=== PATIENT | female | born 1940 | race Caucasian/White ===

== ENCOUNTER 2022-03-22 14:30 | Outpatient (REF) | payer OTHER, SELFPAY | END 2022-03-22 14:31 | disposition home or self-care (01) | LOC: HO.LNP 14:30 | PROVIDERS: Visit Provider Hospitalist | DX: J42 Unspecified chronic bronchitis (principal); J15.1 Pneumonia due to Pseudomonas; J47.9 Bronchiectasis, uncomplicated; R91.8 Other nonspecific abnormal finding of lung field | CPT/HCPCS: 87070; 87077; 87186; 87205; 94640; 99202 ==

== ENCOUNTER 2022-04-06 12:02 | Inpatient (IN) | payer OTHER, SELFPAY ==
[2022-04-06] VITALS (7 sets, daily range): BP systolic 106–156; BP diastolic 48–68; PULSE 83–131; RESP 16–26; TEMP 36.2–36.8; O2SAT 95–97; BMI 32.1
--- NOTE | ~2022-04-06 | CT_ITS ---
EXAMINATION: CT CHEST WITHOUT CONTRAST CLINICAL INFORMATION: Rule out pneumonia. History of COPD and bronchiectasis COMPARISON: 12/30/2021 TECHNIQUE: Multidetector volumetric CT imaging of the chest was done. Axial MIP volume rendering provided. Sagittal and coronal reformatted images were obtained. This CT examination was performed using dose optimization techniques as appropriate, variously including the following: *Automated exposure control *Adjustment of mA and/or kV according to patient size (this includes techniques or standardized protocols for targeted exams where dose is matched to indication/reason for exam; i.e. extremities or head) *Use of iterative reconstruction technique DLP: 333 mGy-cm FINDINGS: TIGHT COOPER: Symmetrically expanded lungs. Sternal wires. LUNGS: New streaky opacities at the lung bases particularly the right lower lobe consistent with atelectasis. There was atelectasis in the left lower lobe which is improved. Moderate central bronchial wall thickening is similar to worsened from the prior study. New nonspecific 9 mm groundglass opacity in the right upper lobe in image 25/61. There is likely atelectasis along left major fissure in the left upper lobe. MEDIASTINUM: Sternal wires. Evidence of prior CABG. Dense three-vessel coronary artery calcification. Mild cardiomegaly. Normal caliber thoracic aorta. No lymphadenopathy. Thyroid is homogeneous. CORONARY ARTERY CALCIFICATION: Three-vessel coronary artery calcification status post CABG. PLEURA: There is no pleural effusion. No pleural mass or thickening. AXILLA: No lymphadenopathy. UPPER ABDOMEN: No adrenal mass. Atrophy of the pancreas. OSSEOUS STRUCTURES: Multilevel degenerative changes. There is new superior endplate compression deformity of T12, new since 12/30/[address] acute. CT/CT chest wo IV con IMPRESSION: New superior endplate compression deformity of T12, new since 12/30/2021 but not necessarily acute. Moderate central bronchial wall thickening, perhaps worsened, consistent with bronchitis. There there is a 9 mm nonspecific groundglass opacity in the right upper lobe. Typically these are infectious or inflammatory. According to the UPDATED 2017 Fleischner Society recommendations, the advised follow-up imaging for a single pure ground-glass nodule measuring 6 mm or greater is: CT at 6-12 months to confirm persistence, then CT every 2 years until 5 years if it persists. New streaky opacities at the lung bases, particularly the right lower lobe, most likely represent atelectasis. Fleischner guidelines were followed.
--- NOTE | ~2022-04-06 | XR_ITS ---
EXAMINATION: XR CHEST CLINICAL INFORMATION: Shortness of breath, history of COPD, bronchiectasis and pneumonia COMPARISON: None TECHNIQUE: Frontal view of the chest was obtained. FINDINGS: Median sternotomy wires and surgical clips are seen. Film was taken with poor inspiration. There is bibasilar atelectasis, left greater than right. No vascular congestion. Left costophrenic angle blunting. Degenerative changes. XR/XR chest 1V IMPRESSION: Low lung volumes limiting study. Basilar atelectasis, left base pneumonia not excluded, question small left pleural effusion.
--- NOTE | ~2022-04-06 | XR_ITS ---
EXAMINATION: XR CHEST CLINICAL INFORMATION: Left-sided discomfort COMPARISON: Previous chest x-ray and chest CT 04/06/2022 TECHNIQUE: 2 views of the chest were obtained. FINDINGS: The cardiac and mediastinal contours are stable. There are post-CABG changes. There is new subsegmental atelectasis or small infiltrate in the left lower lobe. There is a new small left pleural effusion. No definite right pleural effusion. No pneumothorax. There are degenerative changes of the spine and shoulders. XR/XR chest 2V IMPRESSION: Increasing atelectasis or small infiltrate in the left lower lobe and small left pleural effusion.
--- NOTE | 2022-04-06 12:16 | ECG_ITS ---
Test Reason : SOB Blood Pressure : / mmHG Vent. Rate : 116 BPM Atrial Rate : 234 BPM P-R Int : 000 ms QRS Dur : 096 ms QT Int : 324 ms P-R-T Axes : 000 026 198 degrees QTc Int : 450 ms Atrial flutter with variable A-V block ST & T wave abnormality, consider inferolateral ischemia Abnormal ECG No previous ECGs available Referred By: Lissy Allred Electronically Signed By:CORNELL DIXON MD
--- NOTE | 2022-04-06 12:39 | ED_ITS ---
HPI - SOB/Dyspnea General Chief Complaint: Dyspnea Stated Complaint: SOB X'S 2 DAYS Time Seen by Provider: 04/06/22 12:04 Source: patient, family and EMS Mode of arrival: EMS Limitations: no limitations History of Present Illness HPI Narrative: Patient comes to the emergency room complaining of worsening shortness of breath for 2 days. Patient is usually being seen at [facility], but now all of her specialists are from [facility], patient's daughter decided to bring her to [facility] for further evaluation. On March 22, patient was seen by Dr. Aldana from pulmonology, seems that patient's respiratory status has dramatically declined over last few months. Patient has history of COPD, bronchiectasis, pseudomonal pneumonia, hypertension, hemolytic anemia requiring blood transfusions, CHF and atrial fibrillation on Eliquis. Patient has history of failing IV and p.o. treatments. The patient's daughter reports that this morning patient was started on tobramycin nebulizations, but the patient's shortness of breath did not improve. Related Data Home Medications Medication Instructions Recorded Confirmed apixaban 5 mg tablet (Eliquis) 5 mg PO BID 03/22/22 04/06/22 aspirin 81 mg tablet,delayed 81 mg PO BEDTIME 03/22/22 04/06/22 release diltiazem HCl 120 mg 120 mg PO DAILY 03/22/22 04/06/22 capsule,extended release 24 hr docusate sodium 100 mg capsule 100 mg PO BID 03/22/22 04/06/22 fluticasone propionate 50 1 spray intranasal BID 03/22/22 04/06/22 mcg/actuation nasal spray,suspension montelukast 10 mg tablet 10 mg PO BEDTIME 03/22/22 04/06/22 nebulizers 03/22/22 nitroglycerin 0.3 mg sublingual 0.3 mg sublingual Q5M PRN Chest 03/22/22 04/06/22 tablet Pain omeprazole 40 mg capsule,delayed 40 mg PO BID 03/22/22 04/06/22 release oxybutynin chloride 5 mg 5 mg PO DAILY 03/22/22 04/06/22 tablet,extended release 24 hr polyethylene glycol 3350 17 17 g PO DAILY PRN Constipation 03/22/22 04/06/22 gram/dose oral powder tramadol 50 mg tablet 50 mg PO BID 03/22/22 04/06/22 umeclidinium 62.5 mcg-vilanterol 1 ea inhalation DAILY 03/22/22 04/06/22 25 mcg/actuation powdr for inhalation (Anoro Ellipta) albuterol sulfate 90 mcg/actuation 2 inh inhalation Q4H PRN Wheezing 04/06/22 04/06/22 aerosol inhaler furosemide 20 mg tablet 1 tab PO DAILY 04/06/22 04/06/22 lisinopril 2.5 mg tablet 1 tab PO DAILY 04/06/22 04/06/22 Previous Rx's Medication Instructions Recorded levalbuterol HCl 1.25 mg/3 mL 1.25 mg (3 mL) inhalation QID 30 03/22/22 solution for nebulization (Xopenex) days #360 mL levofloxacin 500 mg tablet 500 mg PO DAILY 14 days #14 tabs 03/22/22 prednisone 10 mg tablet See Rx Instructions PO DAILY 30 03/22/22 days #20 tabs tobramycin 300 mg/5 mL in 0.225 % 300 mg (5 mL) inhalation BID 28 03/25/22 sodium chloride for nebulization days #280 mL (John) Allergies Allergy/AdvReac Type Severity Reaction Status Date / Time carvedilol Allergy Shortness Verified 04/06/22 12:41 of Breath sertraline [From Zoloft] Allergy Shortness Verified 04/06/22 12:41 of Breath spironolactone Allergy Shortness Verified 04/06/22 12:41 of Breath Review of Systems Review of Systems: Constitutional : No Weight loss, No Fever, No Chills, No Night Sweats, No Fatigue, No Malaise ENT/Mouth : No Hearing loss, No Ear Pain, No Nasal Congestion, No Sinus Pain, No Hoarseness, No sore throat, No Rhinorrhea, No Swallowing Difficulty Eyes: No Eye Pain, No Swelling, No Redness, No Foreign Body, No Discharge, No Vision Changes Cardiovascular : No Chest Pain, No SOB, No Dyspnea on Exertion, No Orthopnea, No Edema, No Palpitations Respiratory : Complaining of chronic cough, sputum production, chronic wheezing, worsening shortness of breath at rest and much worse with exertion Gastrointestinal : No Nausea, No Vomiting, No Diarrhea, No Constipation, No abdominal Pain, No Hematochezia, No Melena Genitourinary : no irregular bleeding, No Dysuria, No Urinary Frequency, No Hematuria, No Urinary Incontinence, No Urgency, No Flank Pain, No Urinary Flow Changes, No Hesitancy Musculoskeletal : No joint pain, No Myalgias, No Joint Swelling Skin : No Skin Lesions, No rash Neuro : No Weakness, No Numbness, No Paresthesias, No Loss of Consciousness, No Dizziness, No Headache Psych : No Anxiety/Panic, No Depression, No SI/HI/AH/VH, No Social Issues, Heme/Lymph: No Bruising, No Bleeding,No Lymphadenopathy Endocrine : No Polyuria, No Polydipsia, No Temperature Intolerance [facility] Past Medical History Medical History Bronchiectasis COPD (chronic obstructive pulmonary disease) Pseudomonal pneumonia Pulmonary nodules Social History Social History Alcohol intake: never Patient Tobacco Use Status: Former Tobacco user Use of substances other than those prescribed or required for medical reasons: No Advance Directives: Yes Advance Directives Information Provided: No Advance Directives on File: No Physical Exam Vital Signs: Vital Signs: Last Vital Signs Temp 98.2 F 04/06/22 16:14 Pulse 110 H 04/06/22 16:14 Resp 25 H 04/06/22 16:14 BP 117/68 04/06/22 16:14 Pulse Ox 95 04/06/22 16:14 O2 Del Method 04/06/22 16:14 BMI result Body Mass Index 32.1 Const: Other: Appearance: Alert. Oriented X3. No acute distress. Eyes: Pupils equal, round and reactive to light. ENT: Pharynx normal. Neck: Normal inspection. Neck supple. No lymph nodes noted. No crepitus CVS: Normal heart rate and rhythm. Pulses normal. Normal S1 and S2 Respiratory: No respiratory distress. Bilateral crackles and rales and wheezing diffusely present, moderate air movement. Abdomen: Soft and nontender. No rigidity. No distention. Skin: Skin warm and dry. Diffuse ecchymosis in upper and lower extremities, likely from blood thinners Extremities: No lower extremity edema. No Lacerations. No Rash Neuro: Oriented X 3. No motor deficit. No sensory deficit. Moving all ext remities. No slurred speech. CN 2 through 12 grossly intact Psych: calm, cooperative, normal affect Course Course Course Narrative: All of patient's labs are pending, respiratory panel has been requested. Patient's oxygen saturation is 96% on room air. Patient's hemoglobin is 7.9, potassium 2.9, patient being repleted with p.o. potassium. I discussed with the patient and her daughter, that given the low hemoglobin levels and all of her symptoms, she would benefit from 1 unit. Both agreeable. Occult blood test pending On room air, patient's oxygen saturation is in the high 90s. However, with standing and a few steps of walking, patient becomes very weak, tachypneic, oxygen drops to 88%. Pulmonary embolism is not suspected, patient already on Eliquis Records from [facility] have been requested, pending. Patient have atrial fibrillation, takes diltiazem at home. Heart rate between 110 and 120 at rest, patient was given 1 dose of IV diltiazem. Patient has occult test is positive. Likely this is the source of patient's anemia. Patient states that back in the 80s she had a colonoscopy, states that as far as she can remember, she had 1 polyp. The patient's daughter states that patient was anemic without a clear reason prior to starting the blood thinners CT scan : No acute pulmonary findings, patient does have a new compression fracture which is new since December of this year. I discussed the patient with Dr. Bai, patient being admitted MDM - SOB/Dyspnea Lab Data Result diagrams: 04/06/22 13:06 04/06/22 13:06 Labs: Lab Results 04/06/22 04/06/22 04/06/22 Range/Units 13:06 13:06 13:06 WBC 7.8 (4.8-10.8) X10*3/uL RBC 2.56 L (4.20-5.50) X10*6/uL Hgb 7.9 L (12.0-16.0) g/dl Hct 24.9 L (37.0-47.0) % MCV 97.3 (80.0-98.0) fL MCH 30.9 (27.0-33.0) pg MCHC 31.7 (31.0-35.0) g/dl RDW 19.1 H (11.0-16.0) % Plt Count 155 L (160-400) X10*3/uL MPV 9.7 (9.4-12.3) fL Immature Gran % (Auto) 1.2 H (0.0-0.4) % Neut % (Auto) 89.2 H (45-73) % Lymph % (Auto) 5.0 L (20-40) % [place] % (Auto) 4.2 (2-11) % Eos % (Auto) 0.3 (0-4) % Baso % (Auto) 0.1 (0-2) % Lymph # (Auto) 0.4 L (1.2-4.9) X10*3/uL [place] # (Auto) 0.3 (0.1-1.2) X10*3/uL Eos # (Auto) 0.0 (0.0-0.4) X10*3/uL Baso # (Auto) 0.0 (0.0-0.2) X10*3/uL Abs Immat Gran (auto) 0.09 H (0.00-0.03) X10*3/uL Absolute Neuts (auto) 7.0 (2.0-8.3) x10*3/uL Absolute Nucleated RBC 0.020 H (0.0-0.012) X10*3/uL Nucleated RBC % (auto) 0.3 H (0.0-0.2) /100WBC PT (10.0-13.1) SEC INR (0.9-1.1) APTT (26.0-36.4) SEC Sodium 136 (135-145) mmol/L Potassium 2.9 L (3.3-5.1) mmol/L Chloride 97 (96-108) mmol/L Carbon Dioxide 28 (22-29) mmol/L Anion Gap 14 (12-20) BUN 14 (9-16) mg/dL Creatinine 0.86 (0.5-1.4) mg/dL Estim Creat Clear Calc 42.8 Estimated GFR > 60 Random Glucose 155 H (60-115) mg/dL Lactic Acid (0.5-2.0) mmol/L Lactic Acid F/U @ 2Hr (0.5-2.0) mmol/L Calcium 8.4 (8.4-10.2) mg/dL Total Bilirubin 1.4 H (0.0-1.0) mg/dL Direct Bilirubin 0.7 H (0.0-0.5) mg/dL AST 21 (5-31) U/L ALT 42 H (0-31) U/L Alkaline Phosphatase 128 H (39-117) U/L Troponin I High Sens 33.5 H (<3.5-17.0) ng/L B-Natriuretic Peptide (<100) pg/mL Total Protein 5.1 L (6.5-8.0) g/dL Albumin 3.3 L (3.5-5.0) g/dL Stool Occult Blood (NEGATIVE) COVID-19 ([facility]LEY) (Negative) COVID-19 Clin Com Blood Type Crossmatch 04/06/22 04/06/22 04/06/22 Range/Units 13:06 13:06 13:06 WBC (4.8-10.8) X10*3/uL RBC (4.20-5.50) X10*6/uL Hgb (12.0-16.0) g/dl Hct (37.0-47.0) % MCV (80.0-98.0) fL MCH (27.0-33.0) pg MCHC (31.0-35.0) g/dl RDW (11.0-16.0) % Plt Count (160-400) X10*3/uL MPV (9.4-12.3) fL Immature Gran % (Auto) (0.0-0.4) % Neut % (Auto) (45-73) % Lymph % (Auto) (20-40) % [place] % (Auto) (2-11) % Eos % (Auto) (0-4) % Baso % (Auto) (0-2) % Lymph # (Auto) (1.2-4.9) X10*3/uL [place] # (Auto) (0.1-1.2) X10*3/uL Eos # (Auto) (0.0-0.4) X10*3/uL Baso # (Auto) (0.0-0.2) X10*3/uL Abs Immat Gran (auto) (0.00-0.03) X10*3/uL Absolute Neuts (auto) (2.0-8.3) x10*3/uL Absolute Nucleated RBC (0.0-0.012) X10*3/uL Nucleated RBC % (auto) (0.0-0.2) /100WBC PT 22.3 H (10.0-13.1) SEC INR 1.9 H (0.9-1.1) APTT 32.2 (26.0-36.4) SEC Sodium (135-145) mmol/L Potassium (3.3-5.1) mmol/L Chloride (96-108) mmol/L Carbon Dioxide (22-29) mmol/L Anion Gap (12-20) BUN (9-16) mg/dL Creatinine (0.5-1.4) mg/dL Estim Creat Clear Calc Estimated GFR Random Glucose (60-115) mg/dL Lactic Acid 2.2 H* (0.5-2.0) mmol/L Lactic Acid F/U @ 2Hr (0.5-2.0) mmol/L Calcium (8.4-10.2) mg/dL Total Bilirubin (0.0-1.0) mg/dL Direct Bilirubin (0.0-0.5) mg/dL AST (5-31) U/L ALT (0-31) U/L Alkaline Phosphatase (39-117) U/L Troponin I High Sens (<3.5-17.0) ng/L B-Natriuretic Peptide 160 H (<100) pg/mL Total Protein (6.5-8.0) g/dL Albumin (3.5-5.0) g/dL Stool Occult Blood (NEGATIVE) COVID-19 ([facility]) (Negative) COVID-19 Clin Com Blood Type Crossmatch 04/06/22 04/06/22 04/06/22 Range/Units 13:07 15:20 15:20 WBC (4.8-10.8) X10*3/uL RBC (4.20-5.50) X10*6/uL Hgb (12.0-16.0) g/dl Hct (37.0-47.0) % MCV (80.0-98.0) fL MCH (27.0-33.0) pg MCHC (31.0-35.0) g/dl RDW (11.0-16.0) % Plt Count (160-400) X10*3/uL MPV (9.4-12.3) fL Immature Gran % (Auto) (0.0-0.4) % Neut % (Auto) (45-73) % Lymph % (Auto) (20-40) % [place] % (Auto) (2-11) % Eos % (Auto) (0-4) % Baso % (Auto) (0-2) % Lymph # (Auto) (1.2-4.9) X10*3/uL [place] # (Auto) (0.1-1.2) X10*3/uL Eos # (Auto) (0.0-0.4) X10*3/uL Baso # (Auto) (0.0-0.2) X10*3/uL Abs Immat Gran (auto) (0.00-0.03) X10*3/uL Absolute Neuts (auto) (2.0-8.3) x10*3/uL Absolute Nucleated RBC (0.0-0.012) X10*3/uL Nucleated RBC % (auto) (0.0-0.2) /100WBC PT (10.0-13.1) SEC INR (0.9-1.1) APTT (26.0-36.4) SEC Sodium (135-145) mmol/L Potassium (3.3-5.1) mmol/L Chloride (96-108) mmol/L Carbon Dioxide (22-29) mmol/L Anion Gap (12-20) BUN (9-16) mg/dL Creatinine (0.5-1.4) mg/dL Estim Creat Clear Calc Estimated GFR Random Glucose (60-115) mg/dL Lactic Acid (0.5-2.0) mmol/L Lactic Acid F/U @ 2Hr 2.6 H* (0.5-2.0) mmol/L Calcium (8.4-10.2) mg/dL Total Bilirubin (0.0-1.0) mg/dL Direct Bilirubin (0.0-0.5) mg/dL AST (5-31) U/L ALT (0-31) U/L Alkaline Phosphatase (39-117) U/L Troponin I High Sens (<3.5-17.0) ng/L B-Natriuretic Peptide (<100) pg/mL Total Protein (6.5-8.0) g/dL Albumin (3.5-5.0) g/dL Stool Occult Blood (NEGATIVE) COVID-19 ([facility]LEY) Negative (Negative) COVID-19 Clin Com See Note Blood Type A Positive Crossmatch See Detail 04/06/22 Range/Units 15:28 WBC (4.8-10.8) X10*3/uL RBC (4.20-5.50) X10*6/uL Hgb (12.0-16.0) g/dl Hct (37.0-47.0) % MCV (80.0-98.0) fL MCH (27.0-33.0) pg MCHC (31.0-35.0) g/dl RDW (11.0-16.0) % Plt Count (160-400) X10*3/uL MPV (9.4-12.3) fL Immature Gran % (Auto) (0.0-0.4) % Neut % (Auto) (45-73) % Lymph % (Auto) (20-40) % [place] % (Auto) (2-11) % Eos % (Auto) (0-4) % Baso % (Auto) (0-2) % Lymph # (Auto) (1.2-4.9) X10*3/uL [place] # (Auto) (0.1-1.2) X10*3/uL Eos # (Auto) (0.0-0.4) X10*3/uL Baso # (Auto) (0.0-0.2) X10*3/uL Abs Immat Gran (auto) (0.00-0.03) X10*3/uL Absolute Neuts (auto) (2.0-8.3) x10*3/uL Absolute Nucleated RBC (0.0-0.012) X10*3/uL Nucleated RBC % (auto) (0.0-0.2) /100WBC PT (10.0-13.1) SEC INR (0.9-1.1) APTT (26.0-36.4) SEC Sodium (135-145) mmol/L Potassium (3.3-5.1) mmol/L Chloride (96-108) mmol/L Carbon Dioxide (22-29) mmol/L Anion Gap (12-20) BUN (9-16) mg/dL Creatinine (0.5-1.4) mg/dL Estim Creat Clear Calc Estimated GFR Random Glucose (60-115) mg/dL Lactic Acid (0.5-2.0) mmol/L Lactic Acid F/U @ 2Hr (0.5-2.0) mmol/L Calcium (8.4-10.2) mg/dL Total Bilirubin (0.0-1.0) mg/dL Direct Bilirubin (0.0-0.5) mg/dL AST (5-31) U/L ALT (0-31) U/L Alkaline Phosphatase (39-117) U/L Troponin I High Sens (<3.5-17.0) ng/L B-Natriuretic Peptide (<100) pg/mL Total Protein (6.5-8.0) g/dL Albumin (3.5-5.0) g/dL Stool Occult Blood POSITIVE (NEGATIVE) COVID-19 ([facility]) (Negative) COVID-19 Clin Com Blood Type Crossmatch Imaging Data CT scan - chest: Radiologist's impression: FINDINGS: LAN/WAN ENGINEER: Symmetrically expanded lungs. Sternal wires. LUNGS: New streaky opacities at the lung bases particularly the right lower lobe consistent with atelectasis. There was atelectasis in the left lower lobe which is improved. Moderate central bronchial wall thickening is similar to worsened from the prior study. New nonspecific 9 mm groundglass opacity in the right upper lobe in image 25/61. There is likely atelectasis along left major fissure in the left upper lobe.? MEDIASTINUM: Sternal wires. Evidence of prior CABG. Dense three-vessel coronary artery calcification. Mild cardiomegaly. Normal caliber thoracic aorta. No lymphadenopathy. Thyroid is homogeneous.? CORONARY ARTERY CALCIFICATION: Three-vessel coronary artery calcification status post CABG. PLEURA: There is no pleural effusion. No pleural mass or thickening.? AXILLA: No lymphadenopathy.? UPPER ABDOMEN: No adrenal mass. Atrophy of the pancreas.? OSSEOUS STRUCTURES: Multilevel degenerative changes. There is new superior endplate compression deformity of T12, new since 12/30/2021 but not necessarily acute.? CT/CT chest wo IV con IMPRESSION: New superior endplate compression deformity of T12, new since 12/30/2021 but not necessarily acute. ? Moderate central bronchial wall thickening, perhaps worsened, consistent with bronchitis. ? There there is a 9 mm nonspecific groundglass opacity in the right upper lobe. Typically these are infectious or inflammatory. According to the UPDATED 2017 Fleischner Society recommendations, the advised follow-up imaging for a single pure ground-glass nodule measuring 6 mm or greater is: CT at 6-12 months to confirm persistence, then CT every 2 years until 5 years if it persists. ? ? New streaky opacities at the lung bases, particularly the right lower lobe, most likely represent atelectasis. ? Fleischner guidelines were followed. Critical Care Time Critical Care Time Critical Care Time: Yes Total Critical Care Time: 90 Attestation: I have personally provided critical care time. Time includes review of lab data, radiology results, discussion with consultants, and monitoring for potential decompensation. Intervention performed as documented. Discharge Plan Discharge Clinical Impression: GI bleed, Anemia, Atrial fibrillation with RVR, Acute hypokalemia, Chronic dyspnea Patient Disposition: Admitted As Inpatient
[2022-04-06 13:12] LABS: MANUAL DIFF FLAG NO
[2022-04-06 13:15] LABS: Basophils Percent Auto 0.1 % (0-2); Eosinophils Percent Auto 0.3 % (0-4); Hematocrit 24.9 % (37.0-47.0); Hemoglobin 7.9 g/dl (12.0-16.0); Imm Gran Abs Auto 0.09 X10*3/uL (0.00-0.03); Imm Gran Pct Auto 1.2 % (0.0-0.4); Lymphocytes Absolute Auto 0.4 X10*3/uL (1.2-4.9); Mean Corpuscular HGB Conc 31.7 g/dl (31.0-35.0); Mean Corpuscular Hemoglobin 30.9 pg (27.0-33.0); Mean Corpuscular Volume 97.3 fL (80.0-98.0); Mean Platelet Volume 9.7 fL (9.4-12.3); Monocytes Absolute Auto 0.3 X10*3/uL (0.1-1.2); Monocytes Percent Auto 4.2 % (2-11); NRBC Pct Auto 0.3 /100WBC (0.0-0.2); Neutrophils Percent Auto 89.2 % (45-73); Platelet Count 155 X10*3/uL (160-400); Red Blood Count 2.56 X10*6/uL (4.20-5.50); Red Cell Distribution Width 19.1 % (11.0-16.0); White Blood Count 7.8 X10*3/uL (4.8-10.8)
[2022-04-06 13:19] LABS: INTERNATIONAL NORM RATIO 1.9 (0.9-1.1); Prothrombin Time 22.3 SEC (10.0-13.1)
[2022-04-06 13:33] LABS: COVID-19 Test Negative (Negative)
[2022-04-06 13:37] LABS: Troponin-I High Sensitivity 33.5 ng/L (<3.5-17.0)
[2022-04-06 13:38] LABS: Alanine Aminotransferase 42 U/L (0-31); Albumin Level 3.3 g/dL (3.5-5.0); Alkaline Phosphatase 128 U/L (39-117); Anion Gap 14 (12-20); Aspartate Amino Transferase 21 U/L (5-31); B Type Natriuretic Peptide 160 pg/mL (<100); Bilirubin Direct 0.7 mg/dL (0.0-0.5); Bilirubin Total 1.4 mg/dL (0.0-1.0); Blood Urea Nitrogen 14 mg/dL (9-16); Calcium 8.4 mg/dL (8.4-10.2); Carbon Dioxide 28 mmol/L (22-29); Chloride 97 mmol/L (96-108); Creatinine Clr Calc Pharmacy 42.8; Estimated Glomerular Filt Rate > 60; Glucose Random 155 mg/dL (60-115); Potassium 2.9 mmol/L (3.3-5.1); Sodium 136 mmol/L (135-145); Total Protein 5.1 g/dL (6.5-8.0)
[2022-04-06] MEDS: 0.9 % Sodium Chloride 1,000 ML 999 ML IVCONT (13:45)
--- NOTE | 2022-04-06 13:45 | PC.NURSE ---
pt is a/o x 4 no sob/reji noted skin pink warm dry speaks in full sentences. 7/10 lower back pain (chronic) lungs - cta, heart sounds - regular. 2+edema noted to mike lower ext. pt lower legs beet red. abd soft obese, hernia noted abd soft and non-tender, bs + x 4 quads. pt has beet red areas to mike forearms. pt daughter at bedside states that pt has skin tear to buttocks area. pt/daughter aware of plan of care.
[2022-04-06 14:25] LABS: Partial Thromboplastin Time 32.2 SEC (26.0-36.4)
[2022-04-06] MEDS: traMADoL HCL 50 MG TABLET PO ×2 (15:02→21:27)
[2022-04-06] MEDS: Potassium Chloride Packet 20 MEQ PACKET 40 MEQ PO (15:03)
[2022-04-06 15:11] LABS: Reflex Lactate? Lactic Acid Added
--- NOTE | 2022-04-06 15:11 | PHA.MEDREC ---
Pharmacy Consult ? Medication Reconciliation Pharmacy has completed the medication reconciliation.
--- NOTE | 2022-04-06 15:13 | PC.NURSE ---
pt states that she takes her po meds whole in applesauce.
--- NOTE | 2022-04-06 15:17 | PC.NURSE ---
Ximena Margarita, D[facility]) [phone]
[2022-04-06 15:35] LABS: OBS Int Ctl Valid YES; OBS1 POSITIVE (NEGATIVE)
[2022-04-06 16:01] LABS: ~Lactic Acid-LAB USE ONLY 2.6 mmol/L (0.5-2.0)
[2022-04-06] MEDS: dilTIAZem HCL 50 MG/10 ML VIAL IVPUSH (16:03)
--- NOTE | 2022-04-06 16:59 | PC.NURSE ---
blood transfusion began at 1654, pt tolerating well so far, pt resting comfortably on stretcher and has been educated on the symptoms to report to this RN
--- NOTE | 2022-04-06 17:09 | P.HPHOSP_ITS ---
History of Present Illness Date of Service: 04/06/22 Attending physician on admission: Keith Bai Chief Complaint: sob 81-year-old female with history hypertension, anemia chronic disease, atrial fibrillation anticoagulated with Eliquis, hyperlipidemia, CAD s/p CABG x4, mild aortic stenosis, chronic low back pain on tramadol, and diastolic congstive heart failure with preserved ejection fraction 50-55% presented to ED this morning for worsening shortness of breath over several weeks. Reports shortness of breath at rest as well as with exertion. No orthopnea or PND. Was recently discharged from [facility] for copd exacerbation on 03/29 where she was treated with levaquin and IV steroids and discharged to complete 10 days course of levaquin and prednisone. She follows with Dr. Aldana in pulmonology with recent sputum culture on 03/22 positive for pseudomonas and corynebacterium species and was given tobramycin nebulizer. Reports despite these treatments, no improvement in symptoms. She is not oxygen dependent. There has also been cough and pt reports difficulty with expectoration. She denies any sick contacts. Denies any fevers, chills, sore throat, rhinorrhea, congestion, abdominal pain, nausea, vomiting, lightheadedness, palpitations, or chest pain. While at [facility], was also found to have H&H chacorta requiring 1 unit packed red blood cell transfusion. Haptoglobin was noted to be low with negative Robert. Patient and her daughter declined bone marrow biopsy at that time. On discharge, hemoglobin had increased to 8.4. On arrival, hemoglobin 7.9 with hematocrit 24.9. Denies any significant bleeding episodes including epistaxis or bright red blood per rectum though has had significant ecchymosis on the extremities bilaterally in the last few weeks. Renal function was at baseline. Potassium low at 2.9. Electrolytes otherwise normal. Initial lactic acid 2.2, repeat lactic acid 2.6. Magnesium 1.8. Total bilirubin 1.4, direct bilirubin 0.7. Troponin 33.5. BNP 160. Total protein 5.1, albumin 3.3. Stool occult blood positive. Patient was tachypneic to 25 with heart rate 119. No hypoxia. Noted to have increased work of breathing. She was started on 2 L supplemental oxygen. EKG showed atrial flutter with RVR. She is given 5 mg diltiazem push with improvement in heart rate to 95. Potassium was also repleted with 40 mEq orally. Patient to be admitted for COPD exacerbation with worsening shortness of breath and increased work of breathing as well as blood loss anemia. Review of Systems Review of Systems: General: No fevers, malaise, unintentional weight loss HEENT: No significant epistaxis, rhinorrhea, nasal congestion, sore throat Cardiovascular: No chest pain, palpitations, or leg edema Respiratory: +shortness of breath, + wheezing, +cough GI: No abdominal pain, nausea, vomiting, diarrhea, constipation, melena, hematochezia : No dysuria, hematuria, increased urinary frequency Heme: +significant ecchymosis. MSK: +chronic low back pain Neuro: No headaches, weakness, paresthesias Skin: No rashes or lesions PMFSH Medical History Bronchiectasis COPD (chronic obstructive pulmonary disease) Pseudomonal pneumonia Pulmonary nodules Social History Household Members: Family and Children Housing: House Do you presently have visiting nurse or other home services: Yes Alcohol intake: never Patient Tobacco Use Status: Former Tobacco user Use of substances other than those prescribed or required for medical reasons: No Currently Displaying Signs/Symptoms of Drug Intoxication Withdrawal: No Have you been hit, kicked, punched, or otherwise hurt by someone within the past year? If so, by whom?: No Do you feel safe in your current relationship?: No Current Relationship Is there a partner from a previous relationship who is making you feel unsafe now?: No Are you made to feel afraid or neglected: No Yarsanism Healthcare Practices: sikhism Advance Directives: No Advance Directives Information Provided: No Advance Directives on File: No Do you have thoughts of harming others: None Do you have a plan to hurt others: No Plan Recently lost weight without trying: Yes How much weight loss: 24-33 pounds Eating poorly because of decreased appetite: No Nutrition screen score: 5 Patient : No Meds Allergies Allergy/AdvReac Type Severity Reaction Status Date / Time carvedilol Allergy Shortness Verified 04/06/22 12:41 of Breath sertraline [From Zoloft] Allergy Shortness Verified 04/06/22 12:41 of Breath spironolactone Allergy Shortness Verified 04/06/22 12:41 of Breath Active Medications: Current Medications Acetaminophen (Acetaminophen 325 Mg Tablet) 650 mg PO Q6H PRN PRN Reason: Pain, Mild (Pain Scale 1-3) Diltiazem HCl (Diltiazem Hcl Cd 120 Mg Cap.Er.Deg) 120 mg PO DAILY [facility]; Protocol Docusate Sodium (Docusate Sodium 100 Mg Capsule) 100 mg PO DAILY PRN PRN Reason: Constipation Fluticasone Propionate (Fluticasone Propionate Nasal 16 Gm Kamiah) 1 spray NOSTRIL-B BID [facility] Furosemide (Furosemide 20 Mg Tablet) 20 mg PO DAILY [facility]; Protocol Cefepime HCl 2 gm/ Sodium (Chloride) 50 mls @ 100 mls/hr IV Q8H [facility] Lisinopril (Lisinopril 2.5 Mg Tablet) 2.5 mg PO DAILY [facility]; Protocol Methylprednisolone Sodium Succinate (Methylprednisolone Sod Succ 40 Mg/Ml Vial) 40 mg IVPUSH Q12H [facility] Montelukast Sodium (Montelukast Sodium 10 Mg Tablet) 10 mg PO BEDTIME [facility] Non-Formulary Medication (Levalbuterol Hcl [Xopenex]) 1.25 mg INHALE QID [facility] Omeprazole (Omeprazole 40 Mg Capsule.Dr) 40 mg PO BID [facility] Ondansetron HCl (Ondansetron Hcl 4 Mg/2 Ml Vial) 4 mg IVPUSH Q8H PRN PRN Reason: Nausea and Vomiting Oxybutynin Chloride (Oxybutynin Chloride Er 5 Mg Tab.Er.24) 5 mg PO DAILY [facility] Pharmacy Consult (Consult Rx Perform Med Rec) 1 each MISCELLANE ONCE PRN PRN Reason: Consult order Polyethylene Glycol (Polyethylene Glycol 3350 17 Gm Powd.Pack) 17 gm PO DAILY PRN PRN Reason: Constipation Sodium Chloride (0.9 % Sodium Chloride Flush 3 Ml Syringe) 3 ml IVFLUSH QSHIFT [facility] Tramadol HCl (Tramadol Hcl 50 Mg Tablet) 50 mg PO BID [facility] Home Medications Medication Instructions Recorded Confirmed Last Taken Type apixaban 5 mg tablet (Eliquis) 5 mg PO BID 03/22/22 04/06/22 04/06/22 History aspirin 81 mg tablet,delayed 81 mg PO BEDTIME 03/22/22 04/06/22 04/05/22 History release diltiazem HCl 120 mg 120 mg PO DAILY 03/22/22 04/06/22 04/06/22 History capsule,extended release 24 hr docusate sodium 100 mg capsule 100 mg PO BID 03/22/22 04/06/22 04/06/22 History fluticasone propionate 50 1 spray intranasal BID 03/22/22 04/06/22 04/06/22 History mcg/actuation nasal spray,suspension montelukast 10 mg tablet 10 mg PO BEDTIME 03/22/22 04/06/22 04/05/22 History nebulizers 03/22/22 Unknown History nitroglycerin 0.3 mg sublingual 0.3 mg sublingual Q5M PRN Chest 03/22/22 04/06/22 Unknown History tablet Pain omeprazole 40 mg capsule,delayed 40 mg PO BID 03/22/22 04/06/22 04/06/22 History release oxybutynin chloride 5 mg 5 mg PO DAILY 03/22/22 04/06/22 04/06/22 History tablet,extended release 24 hr polyethylene glycol 3350 17 17 g PO DAILY PRN Constipation 03/22/22 04/06/22 Unknown History gram/dose oral powder tramadol 50 mg tablet 50 mg PO BID 03/22/22 04/06/22 04/06/22 History umeclidinium 62.5 mcg-vilanterol 1 ea inhalation DAILY 03/22/22 04/06/22 04/06/22 History 25 mcg/actuation powdr for inhalation (Anoro Ellipta) albuterol sulfate 90 mcg/actuation 2 inh inhalation Q4H PRN Wheezing 04/06/22 04/06/22 Unknown History aerosol inhaler furosemide 20 mg tablet 1 tab PO DAILY 04/06/22 04/06/22 04/06/22 History lisinopril 2.5 mg tablet 1 tab PO DAILY 04/06/22 04/06/22 04/06/22 History Physical Exam Vital Signs and Narrative: Vital Signs: Last Vital Signs Temp 97.9 F 04/06/22 16:44 Pulse 92 04/06/22 16:44 Resp 20 04/06/22 16:44 BP 106/48 L 04/06/22 16:44 Pulse Ox 95 04/06/22 16:14 O2 Del Method 04/06/22 16:14 BMI result Body Mass Index 32.1 Constitutional - Awake and Alert, No apparent distress Eyes - PERRLA, EOMI Cardiovascular - S1S2, RRR, 2+ pitting edema Respiratory - Normal lung expansion, bilateral rhonchi and wheezing with increased work of breathing Gastrointestinal - NT / ND; +BS; No rebound or guarding - No CVA tenderness Extremities - no calf tenderness bilaterally, no swelling Skin - Warm/Dry. Diffuse ecchymosis of the BUE and BLE. See photo Neurological - Alert & oriented x3, CN II-XII in tact. 10/14 strength BUE and BLE Psychological - Appropriate affect Results Labs CBC and Chem 7: 04/07/22 06:51 04/07/22 06:51 Labs: Laboratory Results - last 24 hr 04/06/22 04/06/22 04/06/22 13:06 13:06 13:06 MCV 97.3 MCH 30.9 MCHC 31.7 RDW 19.1 H Plt Count 155 L MPV 9.7 Immature Gran % (Auto) 1.2 H Neut % (Auto) 89.2 H Lymph % (Auto) 5.0 L [place] % (Auto) 4.2 Eos % (Auto) 0.3 Baso % (Auto) 0.1 Lymph # (Auto) 0.4 L [place] # (Auto) 0.3 Eos # (Auto) 0.0 Baso # (Auto) 0.0 Abs Immat Gran (auto) 0.09 H Absolute Neuts (auto) 7.0 Absolute Nucleated RBC 0.020 H Nucleated RBC % (auto) 0.3 H PT INR APTT Anion Gap 14 Estim Creat Clear Calc 42.8 Estimated GFR > 60 Random Glucose 155 H Lactic Acid Lactic Acid F/U @ 2Hr Calcium 8.4 Total Bilirubin 1.4 H Direct Bilirubin 0.7 H AST 21 ALT 42 H Alkaline Phosphatase 128 H Troponin I High Sens 33.5 H B-Natriuretic Peptide Total Protein 5.1 L Albumin 3.3 L Stool Occult Blood COVID-19 ([facility]LEY) COVID-19 Clin Com Blood Type Antibody Screen Crossmatch 04/06/22 04/06/22 04/06/22 13:06 13:06 13:06 MCV MCH MCHC RDW Plt Count MPV Immature Gran % (Auto) Neut % (Auto) Lymph % (Auto) [place] % (Auto) Eos % (Auto) Baso % (Auto) Lymph # (Auto) [place] # (Auto) Eos # (Auto) Baso # (Auto) Abs Immat Gran (auto) Absolute Neuts (auto) Absolute Nucleated RBC Nucleated RBC % (auto) PT 22.3 H INR 1.9 H APTT 32.2 Anion Gap Estim Creat Clear Calc Estimated GFR Random Glucose Lactic Acid 2.2 H* Lactic Acid F/U @ 2Hr Calcium Total Bilirubin Direct Bilirubin AST ALT Alkaline Phosphatase Troponin I High Sens B-Natriuretic Peptide 160 H Total Protein Albumin Stool Occult Blood COVID-19 ([facility]LEY) [employer] Blood Type Antibody Screen Crossmatch 04/06/22 04/06/22 04/06/22 13:07 15:20 15:20 MCV MCH MCHC RDW Plt Count MPV Immature Gran % (Auto) Neut % (Auto) Lymph % (Auto) [place] % (Auto) Eos % (Auto) Baso % (Auto) Lymph # (Auto) [place] # (Auto) Eos # (Auto) Baso # (Auto) Abs Immat Gran (auto) Absolute Neuts (auto) Absolute Nucleated RBC Nucleated RBC % (auto) PT INR APTT Anion Gap Estim Creat Clear Calc Estimated GFR Random Glucose Lactic Acid Lactic Acid F/U @ 2Hr 2.6 H* Calcium Total Bilirubin Direct Bilirubin AST ALT Alkaline Phosphatase Troponin I High Sens B-Natriuretic Peptide Total Protein Albumin Stool Occult Blood COVID-19 ([facility]LEY) Negative [employer] See Note Blood Type A Positive Antibody Screen NEGATIVE Crossmatch See Detail 04/06/22 15:28 MCV MCH MCHC RDW Plt Count MPV Immature Gran % (Auto) Neut % (Auto) Lymph % (Auto) [place] % (Auto) Eos % (Auto) Baso % (Auto) Lymph # (Auto) [place] # (Auto) Eos # (Auto) Baso # (Auto) Abs Immat Gran (auto) Absolute Neuts (auto) Absolute Nucleated RBC Nucleated RBC % (auto) PT INR APTT Anion Gap Estim Creat Clear Calc Estimated GFR Random Glucose Lactic Acid Lactic Acid F/U @ 2Hr Calcium Total Bilirubin Direct Bilirubin AST ALT Alkaline Phosphatase Troponin I High Sens B-Natriuretic Peptide Total Protein Albumin Stool Occult Blood POSITIVE COVID-19 ([facility]LEY) [employer] Blood Type Antibody Screen Crossmatch Imaging Radiologist's Impressions: Impressions Chest X-Ray 04/06/22 13:15 IMPRESSION: Low lung volumes limiting study. Basilar atelectasis, left base pneumonia not excluded, question small left pleural effusion. Chest CT 04/06/22 14:32 IMPRESSION: New superior endplate compression deformity of T12, new since 12/30/2021 but not necessarily acute. Moderate central bronchial wall thickening, perhaps worsened, consistent with bronchitis. There there is a 9 mm nonspecific groundglass opacity in the right upper lobe. Typically these are infectious or inflammatory. According to the UPDATED 2017 Fleischner Society recommendations, the advised follow-up imaging for a single pure ground-glass nodule measuring 6 mm or greater is: CT at 6-12 months to confirm persistence, then CT every 2 years until 5 years if it persists. New streaky opacities at the lung bases, particularly the right lower lobe, most likely represent atelectasis. Fleischner guidelines were followed. Assessment and Plan (1) COPD (chronic obstructive pulmonary disease): Status: Acute (2) Acute respiratory failure with hypoxia: Status: Acute (3) GI bleed: Status: Acute Plan 81-year-old female with history hypertension, anemia chronic disease, atrial fibrillation anticoagulated with Eliquis, bronchiectasis, hyperlipidemia, CAD s/p CABG x4, mild aortic stenosis, chronic low back pain on tramadol, and diastolic congstive heart failure with preserved ejection fraction 50-55% admitted for COPD exacerbation with sputum culture positive for Pseudomonas and corynebacterium. #Acute hypoxic respiratory failure -Non oxygen dependent at home -Noted to desat to 88% with ambulation -Continue supplemental O2 #Acute COPD exacerbation with tracheobronchitis- no hypoxia -SPutum culture 03/22 positive for Pseudomonas and corynebacterium species -recently treated initially inpatient at [facility] an outpatient with Levaquin as well as prednisone -CXR/chest CT negative for acute pneumonia -respiratory panel pending. Negative for COVID-19. -initiate IV cefepime -IV Solu-Medrol -DuoNebs q.4h while awake -Xopenex from home q.2h p.r.n. -pulmonology consulted -Pt afebrile. Tachycardia related to afib with rvr, tachypneic secondary to COPD exacerbation. Lactic acidosis secondary to albuterol use. No severe sepsis # acute anemia -likely secondary to slow GI bleed with heme-positive stool on Eliquis as well as diffuse ecchymosis. -less likely to be hemolysis with negative Robert. Low haptoglobin at [facility] likely related to low total protein -Abd [facility] 03/23 without colitis, diverticulitis. Showing thickened endometrium. No other significant abnormality to explain bleeding -H/H 7.9/24.9 transfused 1 unit in the ED -follow CBC -hold Eliquis and aspirin # paroxysmal atrial fibrillation-initially presented with RVR, rate now controlled -given 5 mg push IV diltiazem, rate now controlled -continue p.o. diltiazem -hold Eliquis and aspirin due to significant ecchymosis and heme-positive stool -cardiology consult placed for anticoagulation recommendations # HTN -BP soft -monitor BP's and initiate diltiazem in the a.m. -hold lisinopril for now # CAD s/p CABG x4 -no anginal chest pain -hold aspirin for now. # diastolic heart failure with preserved ejection fraction-stable -BNP 160. No pleural effusions -continue furosemide DVT prophylaxis-mechanical. Hold Eliquis for now due to GI bleed Full code Patient requires inpatient stay of at least 2 midnights due to COPD exacerbation with sputum culture positive for Pseudomonas requiring IV antibiotics as well as acute blood loss anemia requiring transfusion with close follow-up and monitoring of blood counts, blood cultures an expert consultation. Quality Stroke Does the patient have a stroke diagnosis?: No VTE Prior VTE?: No VTE Risk Level:: Medical - moderate - high VTE Device Contraindication: Treatment Not Indicated VTE Drug Contraindication: N/A - Med Ordered
[2022-04-06 17:20] LABS: Magnesium 1.8 mg/dL (1.6-2.6)
[2022-04-06 17:26] LABS: Reflex Lactate? 2 Y
[2022-04-06] MEDS: methylPREDNISolone Sod Succ 40 MG/ML VIAL IVPUSH (19:38)
[2022-04-06] MEDS: cefEPime HCl 2 GM in 0.9 % Sodium Chloride 50 ML IV (19:38)
[2022-04-06] MEDS: Montelukast Sodium 10 MG TABLET PO (21:28)
[2022-04-06] MEDS: 0.9 % Sodium Chloride Flush 3 ML SYRINGE IVFLUSH (21:28)
[2022-04-07] VITALS (11 sets, daily range): BP systolic 121–143; BP diastolic 56–77; PULSE 75–118; RESP 16–20; TEMP 36.1–36.8; O2SAT 93–99; BMI 33.5
[2022-04-07] MEDS: cefEPime HCl 2 GM in 0.9 % Sodium Chloride 50 ML IV ×2 (01:39→08:53)
[2022-04-07] MEDS: Albuterol/Iprat 2.5/0.5MG 3 ML AMPUL.NEB INHALE ×3 (01:54→15:34)
[2022-04-07] MEDS: methylPREDNISolone Sod Succ 40 MG/ML VIAL IVPUSH (05:11)
[2022-04-07] MEDS: Omeprazole 40 MG CAPSULE.DR PO ×2 (05:11→17:13)
[2022-04-07 07:21] LABS: Hematocrit 27.4 % (37.0-47.0); Mean Corpuscular HGB Conc 32.8 g/dl (31.0-35.0); Mean Corpuscular Hemoglobin 31.1 pg (27.0-33.0); Mean Corpuscular Volume 94.8 fL (80.0-98.0); Mean Platelet Volume 9.9 fL (9.4-12.3); NRBC Pct Auto 0.6 /100WBC (0.0-0.2); Platelet Count 128 X10*3/uL (160-400); Red Blood Count 2.89 X10*6/uL (4.20-5.50); Red Cell Distribution Width 18.7 % (11.0-16.0); White Blood Count 6.6 X10*3/uL (4.8-10.8)
[2022-04-07 07:38] LABS: Anion Gap 13 (12-20); Blood Urea Nitrogen 15 mg/dL (9-16); Calcium 8.2 mg/dL (8.4-10.2); Carbon Dioxide 28 mmol/L (22-29); Chloride 100 mmol/L (96-108); Creatinine Clr Calc Pharmacy 43.8; Estimated Glomerular Filt Rate > 60; Glucose Random 218 mg/dL (60-115); Potassium 3.8 mmol/L (3.3-5.1); Sodium 137 mmol/L (135-145)
[2022-04-07] MEDS: dilTIAZem HCL CD 120 MG CAP.ER.DEG PO (08:49)
[2022-04-07] MEDS: 0.9 % Sodium Chloride Flush 3 ML SYRINGE IVFLUSH ×3 (08:50→23:51)
[2022-04-07] MEDS: traMADoL HCL 50 MG TABLET PO ×2 (08:54→22:42)
--- NOTE | 2022-04-07 08:56 | MHC.CM.PN ---
CM met with Patient at bedside and addressed IMM with her, providing her with the original and placing a copy on the chart. Patient lives in a house with her Daughter and Son in Law and she is active with [facility]. Home/resume said services is the goal and CM has initiated and will follow for dc planning. PCP is DR. Monica Arciniega and Patient has received no Covid vax.
--- NOTE | 2022-04-07 09:47 | PM.CNCAR ---
History of Present Illness History of Present Illness Date of Service: 04/07/22 Requesting physician: Keith Bai Consult reason: atrial fibrillation and congestive heart failure Chief complaint: Hypoxia,afib with rvr,anemia Narrative: I was consulted to see Jenifer in cardiology consultation today for anemia with positive occult blood in the stools with underlying chronic atrial fibrillation for management of oral anticoagulation. Patient has prior history of CAD status post coronary artery bypass grafting, COPD with bronchiectasis, recurrent hospitalization with acute respiratory failure with hypoxemia, obesity with poor functional status, heart failure preserved ejection fraction with last echocardiogram at [facility] LVEF of 50-55%. Chronic anemia. Patient present hospital with worsening shortness of breath and was noted to be hypoxic on room air along with more anemia compared to her recent admission at [facility] with occult blood positive stool. She is both on aspirin and Eliquis, not sure as to why, patient is not aware as to why she is on both of these medications. Her CAD with bypass was in 2002 and she has not had any acute recent stenting or myocardial infarction. As per the hospitalist team she was started on Eliquis 2 weeks ago. She has had workup for anemia at [facility]. She comes with wheezing and respiratory failure. Currently on oxygen therapy. Atrial fibrillation rates are borderline controlled. She denies any chest pain or palpitations. Denies any orthopnea PND or leg edema. Clinically she does appear to be in overt heart failure. Review of Systems Constitutional: Constitutional: Reports weakness Eyes: Eyes: Reports no additional eye complaints Cardiovascular: Cardiovascular: Denies chest pain, Denies leg edema, Denies Loss of Consciousness, Denies palpitations, Reports dyspnea on exertion and Denies orthopnea Respiratory: Respiratory: Reports excessive phlegm production, Reports dyspnea on exertion and Reports wheezing Gastrointestinal: Gastrointestinal: Reports no additional gastrointestinal complaints Genitourinary: Genitourinary: Reports no additional female genitourinary complaints Musculoskeletal: Musculoskeletal: Reports no additional musculoskeletal complaints Integumentary/Breasts: Skin/Breast: Reports system reviewed and no additional complaints, except as docu Neurologic: Reports system reviewed and no additional complaints, except as documented and Reports weakness Psychiatric: Psychiatric: Reports no additional psychiatric complaints Endocrine: Endocrine: Reports no additional endocrine complaints and Denies palpitations Allergic/Immunologic: Allergic/Immunologic: Reports wheezing PMFSH Past Medical History Medical History Bronchiectasis COPD (chronic obstructive pulmonary disease) Pseudomonal pneumonia Pulmonary nodules Social History Social History Household Members: Family and Children Housing: House Do you presently have visiting nurse or other home services: Yes Alcohol intake: never Patient Tobacco Use Status: Former Tobacco user Use of substances other than those prescribed or required for medical reasons: No Currently Displaying Signs/Symptoms of Drug Intoxication Withdrawal: No Have you been hit, kicked, punched, or otherwise hurt by someone within the past year? If so, by whom?: No Do you feel safe in your current relationship?: No Current Relationship Is there a partner from a previous relationship who is making you feel unsafe now?: No Are you made to feel afraid or neglected: No Church Healthcare Practices: scientology Advance Directives: No Advance Directives Information Provided: No Advance Directives on File: No Do you have thoughts of harming others: None Do you have a plan to hurt others: No Plan Recently lost weight without trying: Yes How much weight loss: 24-33 pounds Eating poorly because of decreased appetite: No Nutrition screen score: 5 Patient : No service: No Current occupational status: retired Meds Allergies Allergy/AdvReac Type Severity Reaction Status Date / Time carvedilol Allergy Shortness Verified 04/06/22 12:41 of Breath sertraline [From Zoloft] Allergy Shortness Verified 04/06/22 12:41 of Breath spironolactone Allergy Shortness Verified 04/06/22 12:41 of Breath Active Medications: Current Medications Acetaminophen (Acetaminophen 325 Mg Tablet) 650 mg PO Q6H PRN PRN Reason: Pain, Mild (Pain Scale 1-3) Albuterol/Ipratropium (Albuterol/Iprat 2.5/0.5mg 3 Ml Ampul.Neb) 3 ml INHALE RQ4H WHILE AWAKE ANIBAL Last Admin: 04/07/22 08:03 Dose: Not Given Diltiazem HCl (Diltiazem Hcl Cd 120 Mg Cap.Er.Deg) 120 mg PO DAILY ANIBAL; Protocol Last Admin: 04/07/22 08:49 Dose: 120 mg Docusate Sodium (Docusate Sodium 100 Mg Capsule) 100 mg PO DAILY PRN PRN Reason: Constipation Fluticasone Propionate (Fluticasone Propionate Nasal 16 Gm Cherry) 1 spray NOSTRIL-B BID [facility] Last Admin: 04/07/22 08:50 Dose: Not Given Cefepime HCl 2 gm/ Sodium (Chloride) 50 mls @ 100 mls/hr IV Q8H [facility] Last Admin: 04/07/22 08:53 Dose: 100 mls/hr Levalbuterol HCl (Levalbuterol Hcl 1.25 Mg/0.5 Ml Vial.Neb) 1.25 mg INHALE QID PRN PRN Reason: Shortness of Breath Methylprednisolone Sodium Succinate (Methylprednisolone Sod Succ 40 Mg/Ml Vial) 40 mg IVPUSH Q12H [facility] Last Admin: 04/07/22 05:11 Dose: 40 mg Montelukast Sodium (Montelukast Sodium 10 Mg Tablet) 10 mg PO BEDTIME [facility] Last Admin: 04/06/22 21:28 Dose: 10 mg Morphine Sulfate (Morphine Sulfate 2 Mg/Ml Cartridge) 2 mg IVPUSH Q4H PRN; Protocol PRN Reason: Shortness of Breath Omeprazole (Omeprazole 40 Mg Capsule.Dr) 40 mg PO BID@0630,1630 [facility] Last Admin: 04/07/22 05:11 Dose: 40 mg Ondansetron HCl (Ondansetron Hcl 4 Mg/2 Ml Vial) 4 mg IVPUSH Q8H PRN PRN Reason: Nausea and Vomiting Oxybutynin Chloride (Oxybutynin Chloride Er 5 Mg Tab.Er.24) 5 mg PO DAILY [facility] Last Admin: 04/07/22 08:49 Dose: 5 mg Pharmacy Consult (Consult Rx Perform Med Rec) 1 each MISCELLANE ONCE PRN PRN Reason: Consult order Polyethylene Glycol (Polyethylene Glycol 3350 17 Gm Powd.Pack) 17 gm PO DAILY PRN PRN Reason: Constipation Sodium Chloride (0.9 % Sodium Chloride Flush 3 Ml Syringe) 3 ml IVFLUSH QSHIFT [facility] Last Admin: 04/07/22 08:50 Dose: 3 ml Tramadol HCl (Tramadol Hcl 50 Mg Tablet) 50 mg PO BID [facility] Last Admin: 04/07/22 08:54 Dose: 50 mg Home Medications Medication Instructions Recorded Confirmed Last Taken Type apixaban 5 mg tablet (Eliquis) 5 mg PO BID 03/22/22 04/06/22 04/06/22 History aspirin 81 mg tablet,delayed 81 mg PO BEDTIME 03/22/22 04/06/22 04/05/22 History release diltiazem HCl 120 mg 120 mg PO DAILY 03/22/22 04/06/22 04/06/22 History capsule,extended release 24 hr docusate sodium 100 mg capsule 100 mg PO BID 03/22/22 04/06/22 04/06/22 History fluticasone propionate 50 1 spray intranasal BID 03/22/22 04/06/22 04/06/22 History mcg/actuation nasal spray,suspension montelukast 10 mg tablet 10 mg PO BEDTIME 03/22/22 04/06/22 04/05/22 History nebulizers 03/22/22 Unknown History nitroglycerin 0.3 mg sublingual 0.3 mg sublingual Q5M PRN Chest 03/22/22 04/06/22 Unknown History tablet Pain omeprazole 40 mg capsule,delayed 40 mg PO BID 03/22/22 04/06/22 04/06/22 History release oxybutynin chloride 5 mg 5 mg PO DAILY 03/22/22 04/06/22 04/06/22 History tablet,extended release 24 hr polyethylene glycol 3350 17 17 g PO DAILY PRN Constipation 03/22/22 04/06/22 Unknown History gram/dose oral powder tramadol 50 mg tablet 50 mg PO BID 03/22/22 04/06/22 04/06/22 History umeclidinium 62.5 mcg-vilanterol 1 ea inhalation DAILY 03/22/22 04/06/22 04/06/22 History 25 mcg/actuation powdr for inhalation (Anoro Ellipta) albuterol sulfate 90 mcg/actuation 2 inh inhalation Q4H PRN Wheezing 04/06/22 04/06/22 Unknown History aerosol inhaler furosemide 20 mg tablet 1 tab PO DAILY 04/06/22 04/06/22 04/06/22 History lisinopril 2.5 mg tablet 1 tab PO DAILY 04/06/22 04/06/22 04/06/22 History Physical Exam Vital Signs: Vital Signs: Last Vital Signs Temp 97.0 F 04/07/22 07:16 Pulse 106 H 04/07/22 07:16 Resp 18 04/07/22 07:16 BP 131/75 04/07/22 07:16 Pulse Ox 96 04/07/22 07:16 O2 Del Method 04/07/22 07:16 BMI result Body Mass Index 33.5 Const: General: cooperative, alert, awake and in distress mild and respiratory Nutritional Appearance: obese Orientation/consciousness: patient oriented x3 HEENT: Head: Yes normocephalic Neck: Neck: Yes trachea midline, Yes supple and Yes no JVD Chest: Chest palpation & inspection: normal inspection of the chest and other (Well-healed sternotomy scar) Resp: Effort & Inspection: respiratory distress Auscultation: wheezes scattered wheezes and diminished lung sounds Cardio: Jugular venous distension: no JVD Rate: tachycardic Rhythm: abnormal rhythm irregularly irregular Heart sounds: S1 normal heart sound present and S2 normal heart sound present GI: Auscultation: normal bowel sounds Skin: General skin exam: no rashes or lesions noted and ecchymosis Neuro: General: patient oriented x3 and no focal motor deficits Extrem: General: Yes no clubbing, cyanosis or edema Objective Labs and Meds Result diagrams: 04/07/22 06:51 04/07/22 06:51 Lab results: Laboratory Results - last 24 hr 04/06/22 04/06/22 04/06/22 13:06 13:06 13:06 WBC 7.8 RBC 2.56 L Hgb 7.9 L Hct 24.9 L MCV 97.3 MCH 30.9 MCHC 31.7 RDW 19.1 H Plt Count 155 L MPV 9.7 Immature Gran % (Auto) 1.2 H Neut % (Auto) 89.2 H Lymph % (Auto) 5.0 L [place] % (Auto) 4.2 Eos % (Auto) 0.3 Baso % (Auto) 0.1 Lymph # (Auto) 0.4 L [place] # (Auto) 0.3 Eos # (Auto) 0.0 Baso # (Auto) 0.0 Abs Immat Gran (auto) 0.09 H Absolute Neuts (auto) 7.0 Absolute Nucleated RBC 0.020 H Nucleated RBC % (auto) 0.3 H PT INR APTT Sodium 136 Potassium 2.9 L Chloride 97 Carbon Dioxide 28 Anion Gap 14 BUN 14 Creatinine 0.86 Estim Creat Clear Calc 42.8 Estimated GFR > 60 Random Glucose 155 H Lactic Acid Lactic Acid F/U @ 2Hr Lactic Acid F/U @ 4Hr Calcium 8.4 Magnesium 1.8 Total Bilirubin 1.4 H Direct Bilirubin 0.7 H AST 21 ALT 42 H Alkaline Phosphatase 128 H Troponin I High Sens 33.5 H B-Natriuretic Peptide Total Protein 5.1 L Albumin 3.3 L Stool Occult Blood COVID-19 (RILEY) Complex Media Blood Type Antibody Screen Crossmatch 04/06/22 04/06/22 04/06/22 13:06 13:06 13:06 WBC RBC Hgb Hct MCV MCH MCHC RDW Plt Count MPV Immature Gran % (Auto) Neut % (Auto) Lymph % (Auto) [place] % (Auto) Eos % (Auto) Baso % (Auto) Lymph # (Auto) [place] # (Auto) Eos # (Auto) Baso # (Auto) Abs Immat Gran (auto) Absolute Neuts (auto) Absolute Nucleated RBC Nucleated RBC % (auto) PT 22.3 H INR 1.9 H APTT 32.2 Sodium Potassium Chloride Carbon Dioxide Anion Gap BUN Creatinine Estim Creat Clear Calc Estimated GFR Random Glucose Lactic Acid 2.2 H* Lactic Acid F/U @ 2Hr Lactic Acid F/U @ 4Hr Calcium Magnesium Total Bilirubin Direct Bilirubin AST ALT Alkaline Phosphatase Troponin I High Sens B-Natriuretic Peptide 160 H Total Protein Albumin Stool Occult Blood COVID-19 (RILEY) Complex Media Blood Type Antibody Screen Crossmatch 04/06/22 04/06/22 04/06/22 13:07 15:20 15:20 WBC RBC Hgb Hct MCV MCH MCHC RDW Plt Count MPV Immature Gran % (Auto) Neut % (Auto) Lymph % (Auto) [place] % (Auto) Eos % (Auto) Baso % (Auto) Lymph # (Auto) [place] # (Auto) Eos # (Auto) Baso # (Auto) Abs Immat Gran (auto) Absolute Neuts (auto) Absolute Nucleated RBC Nucleated RBC % (auto) PT INR APTT Sodium Potassium Chloride Carbon Dioxide Anion Gap BUN Creatinine Estim Creat Clear Calc Estimated GFR Random Glucose Lactic Acid Lactic Acid F/U @ 2Hr 2.6 H* Lactic Acid F/U @ 4Hr Calcium Magnesium Total Bilirubin Direct Bilirubin AST ALT Alkaline Phosphatase Troponin I High Sens B-Natriuretic Peptide Total Protein Albumin Stool Occult Blood COVID-19 (RILEY) Negative [employer] See Note Blood Type A Positive Antibody Screen NEGATIVE Crossmatch See Detail 04/06/22 04/06/22 04/07/22 15:28 17:57 06:51 WBC 6.6 RBC 2.89 L Hgb 9.0 L Hct 27.4 L MCV 94.8 MCH 31.1 MCHC 32.8 RDW 18.7 H Plt Count 128 L MPV 9.9 Immature Gran % (Auto) Neut % (Auto) Lymph % (Auto) [place] % (Auto) Eos % (Auto) Baso % (Auto) Lymph # (Auto) [place] # (Auto) Eos # (Auto) Baso # (Auto) Abs Immat Gran (auto) Absolute Neuts (auto) Absolute Nucleated RBC 0.040 H Nucleated RBC % (auto) 0.6 H PT INR APTT Sodium Potassium Chloride Carbon Dioxide Anion Gap BUN Creatinine Estim Creat Clear Calc Estimated GFR Random Glucose Lactic Acid Lactic Acid F/U @ 2Hr Lactic Acid F/U @ 4Hr 2.0 Calcium Magnesium Total Bilirubin Direct Bilirubin AST ALT Alkaline Phosphatase Troponin I High Sens B-Natriuretic Peptide Total Protein Albumin Stool Occult Blood POSITIVE COVID-19 (RILEY) COVID-[employer] Blood Type Antibody Screen Crossmatch 04/07/22 06:51 WBC RBC Hgb Hct MCV MCH MCHC RDW Plt Count MPV Immature Gran % (Auto) Neut % (Auto) Lymph % (Auto) [place] % (Auto) Eos % (Auto) Baso % (Auto) Lymph # (Auto) [place] # (Auto) Eos # (Auto) Baso # (Auto) Abs Immat Gran (auto) Absolute Neuts (auto) Absolute Nucleated RBC Nucleated RBC % (auto) PT INR APTT Sodium 137 Potassium 3.8 D Chloride 100 Carbon Dioxide 28 Anion Gap 13 BUN 15 Creatinine 0.86 Estim Creat Clear Calc 43.8 Estimated GFR > 60 Random Glucose 218 H Lactic Acid Lactic Acid F/U @ 2Hr Lactic Acid F/U @ 4Hr Calcium 8.2 L Magnesium Total Bilirubin Direct Bilirubin AST ALT Alkaline Phosphatase Troponin I High Sens B-Natriuretic Peptide Total Protein Albumin Stool Occult Blood COVID-19 (RILEY) [employer] Blood Type Antibody Screen Crossmatch Imaging Radiologist's impression: Impressions Chest X-Ray 04/06/22 13:15 IMPRESSION: Low lung volumes limiting study. Basilar atelectasis, left base pneumonia not excluded, question small left pleural effusion. Chest CT 04/06/22 14:32 IMPRESSION: New superior endplate compression deformity of T12, new since 12/30/2021 but not necessarily acute. Moderate central bronchial wall thickening, perhaps worsened, consistent with bronchitis. There there is a 9 mm nonspecific groundglass opacity in the right upper lobe. Typically these are infectious or inflammatory. According to the UPDATED 2017 Fleischner Society recommendations, the advised follow-up imaging for a single pure ground-glass nodule measuring 6 mm or greater is: CT at 6-12 months to confirm persistence, then CT every 2 years until 5 years if it persists. New streaky opacities at the lung bases, particularly the right lower lobe, most likely represent atelectasis. Fleischner guidelines were followed. Assessment and Plan (1) Atrial fibrillation with RVR: Status: Acute Atrial fibrillation borderline rate control. Can increase her Cardizem to 180 mg daily. Atrial fibrillation appears to be chronic in nature. She is on Eliquis for oral anticoagulation therapy which is appropriate therapy however she has issues with anemia and now is occult blood positive in the stools. She could have a chronic GI blood loss issue. Should consider GI consultation. Also consider transfusing to hematocrit over 30 given her advanced respiratory and cardiac status. For now the Eliquis can be withheld however GI workup needs to be pursued as to the etiology and see if this can be addressed. If not in the long run should consider Watchman device. This she will discuss with her own paint prepper. I do not see role for dual therapy in her and not sure if she requires both aspirin and Eliquis. However she is overall limited historian. For now also discontinue aspirin therapy. (2) Acute respiratory failure with hypoxia: Status: Acute Acute respiratory failure with hypoxemia peers to be multifactorial. She does not appear to be in overt heart failure. Would just continue her usual Lasix does. If you transfuse her may consider giving IV Lasix following transfusion. Continue management of her pulmonary situation and consider pulmonary consultation. She has multiple reasons for respiratory for including underlying COPD and probably deconditioning. Incentive spirometer and out of bed to chair should be considered. Continue management as per hospitalist and Pulmonary team. (3) CAD (coronary artery disease): Status: Acute Prior history of coronary artery bypass grafting with no recent symptoms suggestive of unstable syndrome. I do not think there is any role for aspirin long-term. Can be just managed with oral Eliquis therapy. Blood pressure is optimized. Continue management with Cardizem. Continue statin therapy. At this point time will sign of the case. Thank you for allowing me to partake in her care Procedures Date of Service Date of Service: 04/07/22
[2022-04-07 12:05] LABS: Lactic Acid 2.2 mmol/L (0.5-2.0)
--- NOTE | 2022-04-07 12:55 | P.EN_ITS ---
Event Note Date of Service: 04/07/22 Event Note: GI consult dictated s/p recent inpt admission at [facility], diagnosed with hemolytic anemia and transfused 1u prbcs. d/c hct 26.5 on 03/29. stools ob pos but no reported melena or hematochezia. can consider egd/colon for further eval when clinically stable if pt and daughter wish invasive evaluation. ? hematology consult.
--- NOTE | 2022-04-07 13:17 | P.CONPL_ITS ---
History of Present Illness History of Present Illness Consult date: 04/07/22 Chief complaint: Hypoxia,afib with rvr,anemia Narrative: ?HAVE SEEN THIS ADD EARLY PATIENT THIS MORNING FOR PULMONARY CONSULTATION. 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 Recently in the past few months she has been admitted at least 4 times at [facility] with acute exacerbation. Each time she ends up having broad-spectrum antibiotics, as well as steroids, and oxygen supplements. By the time she is discharged home she gets over hypoxemia and does not qualify for home oxygen. For her chronic bronchiectasis and Pseudomonas infection, she has been treated with in addition she has [facility] to be use p.r.n. at home. She had been out of the the supply of Nebcin but recently Dr. Aldana had sent a requisition for this agent. This patient also has been on Levaquin 500 mg daily for 2 weeks . Today she comes in with marked generalized weakness, and shortness of breath, O2 sats were low at the time of admission through emergency room, which have now improved and she is doing well on room air. Extensive details are present in the previous electronic medical records.? Review of Systems Review of Systems: General: No fevers, malaise, unintentional weight loss HEENT: No significant epistaxis, rhinorrhea, nasal congestion, sore throat Cardiovascular: No chest pain, palpitations, or leg edema Respiratory: +shortness of breath, + wheezing, +cough GI: No abdominal pain, nausea, vomiting, diarrhea, constipation, melena, hematochezia : No dysuria, hematuria, increased urinary frequency Heme: +significant ecchymosis. MSK: +chronic low back pain Neuro: No headaches, weakness, paresthesias Skin: No rashes or lesions PMFSH Past Medical History Medical History (Updated 04/07/22 @ 13:33 by Sasha Barnes MD) Anemia Bronchiectasis COPD (chronic obstructive pulmonary disease) Pseudomonal pneumonia Pseudomonas respiratory infection Pulmonary nodules Social History Social History Household Members: Family and Children Housing: House Do you presently have visiting nurse or other home services: Yes Alcohol intake: never Patient Tobacco Use Status: Former Tobacco user Use of substances other than those prescribed or required for medical reasons: No Currently Displaying Signs/Symptoms of Drug Intoxication Withdrawal: No Have you been hit, kicked, punched, or otherwise hurt by someone within the past year? If so, by whom?: No Do you feel safe in your current relationship?: No Current Relationship Is there a partner from a previous relationship who is making you feel unsafe now?: No Are you made to feel afraid or neglected: No Sikh Healthcare Practices: spiritism Advance Directives: No Advance Directives Information Provided: No Advance Directives on File: No Do you have thoughts of harming others: None Do you have a plan to hurt others: No Plan Recently lost weight without trying: Yes How much weight loss: 24-33 pounds Eating poorly because of decreased appetite: No Nutrition screen score: 5 Patient : No service: No Current occupational status: retired Meds Allergies Allergy/AdvReac Type Severity Reaction Status Date / Time carvedilol Allergy Shortness Verified 04/06/22 12:41 of Breath sertraline [From Zoloft] Allergy Shortness Verified 04/06/22 12:41 of Breath spironolactone Allergy Shortness Verified 04/06/22 12:41 of Breath Active Medications: Current Medications Acetaminophen (Acetaminophen 325 Mg Tablet) 650 mg PO Q6H PRN PRN Reason: Pain, Mild (Pain Scale 1-3) Albuterol/Ipratropium (Albuterol/Iprat 2.5/0.5mg 3 Ml Ampul.Neb) 3 ml INHALE RQ4H WHILE AWAKE [facility] Last Admin: 04/07/22 11:19 Dose: 3 ml Diltiazem HCl (Diltiazem Hcl Cd 120 Mg Cap.Er.Deg) 120 mg PO DAILY [facility]; Protocol Last Admin: 04/07/22 08:49 Dose: 120 mg Docusate Sodium (Docusate Sodium 100 Mg Capsule) 100 mg PO DAILY PRN PRN Reason: Constipation Fluticasone Propionate (Fluticasone Propionate Nasal 16 Gm [place]) 1 spray NOSTRIL-B BID [facility] Last Admin: 04/07/22 08:50 Dose: Not Given Levalbuterol HCl (Levalbuterol Hcl 1.25 Mg/0.5 Ml Vial.Neb) 1.25 mg INHALE QID PRN PRN Reason: Shortness of Breath Methylprednisolone Sodium Succinate (Methylprednisolone Sod Succ 40 Mg/Ml Vial) 40 mg IVPUSH Q12H [facility] Last Admin: 04/07/22 05:11 Dose: 40 mg Montelukast Sodium (Montelukast Sodium 10 Mg Tablet) 10 mg PO BEDTIME [facility] Last Admin: 04/06/22 21:28 Dose: 10 mg Morphine Sulfate (Morphine Sulfate 2 Mg/Ml Cartridge) 2 mg IVPUSH Q4H PRN; Protocol PRN Reason: Shortness of Breath Non-Formulary Medication (Umeclidinium-Vilanterol [Anoro Ellipta]) 1 each INHALE DAILY [facility] Omeprazole (Omeprazole 40 Mg Capsule.Dr) 40 mg PO BID@0630,1630 [facility] Last Admin: 04/07/22 05:11 Dose: 40 mg Ondansetron HCl (Ondansetron Hcl 4 Mg/2 Ml Vial) 4 mg IVPUSH Q8H PRN PRN Reason: Nausea and Vomiting Oxybutynin Chloride (Oxybutynin Chloride Er 5 Mg Tab.Er.24) 5 mg PO DAILY [facility] Last Admin: 04/07/22 08:49 Dose: 5 mg Pharmacy Consult (Consult Rx Perform Med Rec) 1 each MISCELLANE ONCE PRN PRN Reason: Consult order Polyethylene Glycol (Polyethylene Glycol 3350 17 Gm Powd.Pack) 17 gm PO DAILY PRN PRN Reason: Constipation Sodium Chloride (0.9 % Sodium Chloride Flush 3 Ml Syringe) 3 ml IVFLUSH QSHIFT [facility] Last Admin: 04/07/22 08:50 Dose: 3 ml Tobramycin Sulfate (Tobramycin Sulfate 80 Mg/2 Ml Vial) 300 mg INHALE Q12H [facility] Tramadol HCl (Tramadol Hcl 50 Mg Tablet) 50 mg PO BID [facility] Last Admin: 04/07/22 08:54 Dose: 50 mg Home Medications Medication Instructions Recorded Confirmed Last Taken Type apixaban 5 mg tablet (Eliquis) 5 mg PO BID 03/22/22 04/06/22 04/06/22 History aspirin 81 mg tablet,delayed 81 mg PO BEDTIME 03/22/22 04/06/22 04/05/22 History release diltiazem HCl 120 mg 120 mg PO DAILY 03/22/22 04/06/22 04/06/22 History capsule,extended release 24 hr docusate sodium 100 mg capsule 100 mg PO BID 03/22/22 04/06/22 04/06/22 History fluticasone propionate 50 1 spray intranasal BID 03/22/22 04/06/22 04/06/22 History mcg/actuation nasal spray,suspension montelukast 10 mg tablet 10 mg PO BEDTIME 03/22/22 04/06/22 04/05/22 History nebulizers 03/22/22 Unknown History nitroglycerin 0.3 mg sublingual 0.3 mg sublingual Q5M PRN Chest 03/22/22 04/06/22 Unknown History tablet Pain omeprazole 40 mg capsule,delayed 40 mg PO BID 03/22/22 04/06/22 04/06/22 History release oxybutynin chloride 5 mg 5 mg PO DAILY 03/22/22 04/06/22 04/06/22 History tablet,extended release 24 hr polyethylene glycol 3350 17 17 g PO DAILY PRN Constipation 03/22/22 04/06/22 Unknown History gram/dose oral powder tramadol 50 mg tablet 50 mg PO BID 03/22/22 04/06/22 04/06/22 History umeclidinium 62.5 mcg-vilanterol 1 ea inhalation DAILY 03/22/22 04/06/22 04/06/22 History 25 mcg/actuation powdr for inhalation (Anoro Ellipta) albuterol sulfate 90 mcg/actuation 2 inh inhalation Q4H PRN Wheezing 04/06/22 04/06/22 Unknown History aerosol inhaler furosemide 20 mg tablet 1 tab PO DAILY 04/06/22 04/06/22 04/06/22 History lisinopril 2.5 mg tablet 1 tab PO DAILY 04/06/22 04/06/22 04/06/22 History Physical Exam Vital Signs: Vital Signs: Last Vital Signs Temp 98.1 F 04/07/22 11:05 Pulse 118 H 04/07/22 11:20 Resp 18 04/07/22 11:20 BP 142/74 H 04/07/22 11:05 Pulse Ox 98 04/07/22 11:05 O2 Del Method 04/07/22 11:05 BMI result Body Mass Index 33.5 Patient to is moderately obese, pale looking, but quite comfortable at this time. She has extensive purpuric spots on the arms and the legs. Const: General: comfortable, no acute distress, alert and awake Orientation/consciousness: patient oriented x3 HEENT: Head: Yes normal to inspection General nose exam: No nasal polyps present and No nasal discharge present Face and sinus: Yes sinuses nontender Mouth: oropharynx normal Throat: Yes posterior oropharynx normal Eyes: General: appearance normal, both eyes and all related structures Neck: Neck: Yes normal visual inspection, Yes no lymphadenopathy, Yes trachea midline and Yes no JVD Thyroid: Thyroid normal Chest: Chest palpation & inspection: normal inspection of the chest, normal palpation of entire chest wall and no tenderness Resp: Other: Percussion note is resonant,, Breath sounds are distant especially over the basilar areas. She does have coarse inspiratory crepitations over both mid chest areas and lower lobes. No wheezes are heard. Cardio: Palpation: normal PMI Rate: regular rate Rhythm: regular rhythm Heart sounds: no gallops and no murmurs GI: Palpation (GI): Soft to palpation, nontender, No hepatosplenomegaly pres ent and no masses Auscultation: normal bowel sounds Back/Spine/Pelvis: Other: Not examine Skin: Other: Extensive ecchymotic and per pure ache area as over the arms and lower extremities. Neuro: General: patient oriented x3 and no focal motor deficits (Marked genera lized weakness of lower extremities) Cranial nerves: Yes CN's II-XII intact bilaterally Extrem: General: Yes normal to inspection (Extensive ecchymotic spots on the legs) and Yes no calf tenderness Psych: Appearance: grossly normal Speech and movement: Normal speech and movement present Results Laboratory Findings CBC and BMP: 04/07/22 06:51 04/07/22 06:51 ABG, PT/INR, D-dimer: PT/INR, D-dimer PT 22.3 SEC (10.0-13.1) H 04/06/22 13:06 INR 1.9 (0.9-1.1) H 04/06/22 13:06 Abnormal lab findings: Abnormal Labs 04/06/22 04/06/22 04/06/22 13:06 13:06 13:06 RBC 2.56 L Hgb 7.9 L Hct 24.9 L RDW 19.1 H Plt Count 155 L Immature Gran % (Auto) 1.2 H Neut % (Auto) 89.2 H Lymph % (Auto) 5.0 L Lymph # (Auto) 0.4 L Abs Immat Gran (auto) 0.09 H Absolute Nucleated RBC 0.020 H Nucleated RBC % (auto) 0.3 H PT INR Potassium 2.9 L Random Glucose 155 H Lactic Acid Lactic Acid F/U @ 2Hr Calcium Total Bilirubin 1.4 H Direct Bilirubin 0.7 H ALT 42 H Alkaline Phosphatase 128 H Troponin I High Sens 33.5 H B-Natriuretic Peptide Total Protein 5.1 L Albumin 3.3 L Crossmatch 04/06/22 04/06/22 04/06/22 13:06 13:06 13:06 RBC Hgb Hct RDW Plt Count Immature Gran % (Auto) Neut % (Auto) Lymph % (Auto) Lymph # (Auto) Abs Immat Gran (auto) Absolute Nucleated RBC Nucleated RBC % (auto) PT 22.3 H INR 1.9 H Potassium Random Glucose Lactic Acid 2.2 H* Lactic Acid F/U @ 2Hr Calcium Total Bilirubin Direct Bilirubin ALT Alkaline Phosphatase Troponin I High Sens B-Natriuretic Peptide 160 H Total Protein Albumin Crossmatch 04/06/22 04/06/22 04/07/22 15:20 15:20 06:51 RBC 2.89 L Hgb 9.0 L Hct 27.4 L RDW 18.7 H Plt Count 128 L Immature Gran % (Auto) Neut % (Auto) Lymph % (Auto) Lymph # (Auto) Abs Immat Gran (auto) Absolute Nucleated RBC 0.040 H Nucleated RBC % (auto) 0.6 H PT INR Potassium Random Glucose Lactic Acid Lactic Acid F/U @ 2Hr 2.6 H* Calcium Total Bilirubin Direct Bilirubin ALT Alkaline Phosphatase Troponin I High Sens B-Natriuretic Peptide Total Protein Albumin Crossmatch See Detail 04/07/22 06:51 RBC Hgb Hct RDW Plt Count Immature Gran % (Auto) Neut % (Auto) Lymph % (Auto) Lymph # (Auto) Abs Immat Gran (auto) Absolute Nucleated RBC Nucleated RBC % (auto) PT INR Potassium Random Glucose 218 H Lactic Acid Lactic Acid F/U @ 2Hr Calcium 8.2 L Total Bilirubin Direct Bilirubin ALT Alkaline Phosphatase Troponin I High Sens B-Natriuretic Peptide Total Protein Albumin Crossmatch Diagnostic Findings Chest x-ray: report reviewed and image reviewed CT scan - chest: report reviewed and image reviewed Assessment and Plan (1) COPD (chronic obstructive pulmonary disease): Status: Acute (2) Acute respiratory failure with hypoxia: Status: Acute (3) Bronchiectasis: Status: Acute (4) Pseudomonas respiratory infection: Status: Acute (5) Anemia: Status: Acute Plan I think at present this patient has marked weakness and de conditioning. Secondary to anemia, with evidence of low-grade GI bleeding, which may be due to combination of the factors and especially anti coagulation therapy. Her pulmonary status seems to be stable as usual. I do not think she has an active respiratory infection at this time, and I would not advised to use any broad-spectrum antibiotic. Also not to use any IV steroids, she should actually be wean down slowly of her prednisone. For respiratory treatments she can continue to use INCRUSE ELLIPTA 1 inhalation daily, and levalbuterol updraft Q 4-6 hours p.r.n., Use O2 2 L/minute to keep O2 sat above 90%, but at present she is not actually requiring it. I suspect that she may need oxygen supplementation at night. She should be continued on chest physical therapy, with incentive spirometry and also flutter valve. As outpatient the patient should be restarted on Nebcin (tobramycin) 300 mg why a nebulizer b.i.d. for 20 days on and 20 days off. This patient would probably require to go to a rehab facility for short-term. Thank you very much for asthma to see this patient. Procedures Date of Service Date of Service: 04/07/22
--- NOTE | 2022-04-07 14:42 | PM.HEMONCCN ---
Subjective - Subjective Chief complaint: Consult for: Anemia. Patient: new to practice Consult date: 04/07/22 Requesting Physician: TYESHA. Primary Care Provider: Monica Arciniega MD Medical Summary: DIAGNOSIS: ANEMIA. HPI - Consult Narrative Reason for consult: Consult for: Anemia. Narrative: Jenifer Mercado is a pleasant 81 year old lady, presented to ED for worsening shortness of breath over several weeks. She Reported shortness of breath at rest as well as with exertion. No orthopnea or PND. She was recently discharged from [facility] for copd exacerbation on 03/29 where she was treated with levaquin and IV steroids and discharged to complete 10 days course of levaquin and prednisone. 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 Was given a unit of PRBC. She follows with Dr. Aldana in pulmonology with recent sputum culture on 03/22 positive for pseudomonas and corynebacterium species and was given tobramycin nebulizer. Reports despite these treatments, no improvement in symptoms. She is not oxygen dependent. There has also been cough and pt reports difficulty with expectoration. She denies any sick contacts. Denies any fevers, chills, sore throat, rhinorrhea, congestion, abdominal pain, nausea, vomiting, lightheadedness, palpitations, or chest pain. While at [facility], was also found to have H&H chacorta requiring 1 unit packed red blood cell transfusion. Haptoglobin was noted to be low with negative Robert. Patient and her daughter declined bone marrow biopsy at that time. On discharge, hemoglobin had increased to 8.4. On arrival, hemoglobin 7.9 with hematocrit 24.9. Denies any significant bleeding episodes including epistaxis or bright red blood per rectum though has had significant ecchymosis on the extremities bilaterally in the last few weeks. Renal function was at baseline. Potassium low at 2.9. Electrolytes otherwise normal. Initial lactic acid 2.2, repeat lactic acid 2.6. Magnesium 1.8. Total bilirubin 1.4, direct bilirubin 0.7. Troponin 33.5. BNP 160. Total protein 5.1, albumin 3.3. Stool occult blood positive. Patient was tachypneic to 25 with heart rate 119. No hypoxia. Noted to have increased work of breathing. She was started on 2 L supplemental oxygen. EKG showed atrial flutter with RVR. She was given 5 mg diltiazem push with improvement in heart rate to 95. Potassium was also repleted with 40 mEq orally. Patient admitted for COPD exacerbation with worsening shortness of breath and increased work of breathing as well as blood loss anemia. Review of Systems Review of Systems: General: No fevers, malaise, unintentional weight loss HEENT: No significant epistaxis, rhinorrhea, nasal congestion, sore throat Cardiovascular: No chest pain, palpitations, or leg edema Respiratory: +shortness of breath, + wheezing, +cough GI: No abdominal pain, nausea, vomiting, diarrhea, constipation, melena, hematochezia : No dysuria, hematuria, increased urinary frequency Heme: +significant ecchymosis. MSK: +chronic low back pain Neuro: No headaches, weakness, paresthesias Skin: No rashes or lesions [facility] Medical History: Hypertension, anemia chronic disease, atrial fibrillation anticoagulated with Eliquis, hyperlipidemia, CAD s/p CABG x4, mild aortic stenosis, chronic low back pain on tramadol, and diastolic congstive heart failure with preserved ejection fraction 50-55% Bronchiectasis COPD (chronic obstructive pulmonary disease) Pseudomonal pneumonia Pulmonary nodules Social History Household Members: Family and Children Housing: House Do you presently have visiting nurse or other home services: Yes Alcohol intake: never Patient Tobacco Use Status: Former Tobacco user Use of substances other than those prescribed or required for medical reasons: No , Review of Systems - Constitutional Reports system reviewed and no additional complaints, except as documented - Eyes Reports system reviewed and no additional complaints, except as documented - ENT Reports system reviewed and no additional complaints, except as documented - Cardiovascular Reports system reviewed and no additional complaints, except as documented - Respiratory Reports no additional respiratory complaints - Gastrointestinal Reports system reviewed and no additional complaints, except as documented - Genitourinary Reports no additional female genitourinary complaints - Musculoskeletal Reports system reviewed and no additional complaints, except as documented - Integumentary/Breasts Skin/Breast: Reports no additional skin complaints - Neurologic Reports system reviewed and no additional complaints, except as documented, Reports weakness - Psychiatric Reports system reviewed and no additional complaints, except as documented - Endocrine Reports no additional endocrine complaints - Hematologic/Lymphatic Reports system reviewed and no additional complaints, except as documented - Allergic/Immunologic Reports system reviewed and no additional complaints, except as documented Oncology Screenings - ECOG Performance Status ECOG Performance Status: 1 [facility] Medical History: Medical History (Last Updated 04/14/22 @ 11:27 by Torin Marcial MD) Acute encephalopathy Anemia Bronchiectasis COPD (chronic obstructive pulmonary disease) Pseudomonal pneumonia Pseudomonas respiratory infection Pulmonary nodules Functional capacity: wheelchair bound Patient : No Social History: Social History (Last Reviewed 04/07/22 @ 13:24 by Sasha Barnes MD) Living Situation History: Household Members: Family Household Members: Children Housing: House Do you presently have visiting nurse or other home services: Yes Tobacco History: Patient Tobacco Use Status: Former Tobacco user Occupation Assessmet: service: No Current occupational status: retired Home Medications and Allergies Current Medications: Current Medications Acetaminophen (Acetaminophen 325 Mg Tablet) 650 mg PO Q6H PRN PRN Reason: Pain, Mild (Pain Scale 1-3) Albuterol/Ipratropium (Albuterol/Iprat 2.5/0.5mg 3 Ml Ampul.Neb) 3 ml INHALE RQ4H WHILE AWAKE [facility] Last Admin: 04/07/22 11:19 Dose: 3 ml Diltiazem HCl (Diltiazem Hcl Cd 120 Mg Cap.Er.Deg) 120 mg PO DAILY ANIBAL; Protocol Last Admin: 04/07/22 08:49 Dose: 120 mg Docusate Sodium (Docusate Sodium 100 Mg Capsule) 100 mg PO DAILY PRN PRN Reason: Constipation Fluticasone Propionate (Fluticasone Propionate Nasal 16 Gm [place]) 1 spray NOSTRIL-B BID [facility] Last Admin: 04/07/22 08:50 Dose: Not Given Levalbuterol HCl (Levalbuterol Hcl 1.25 Mg/0.5 Ml Vial.Neb) 1.25 mg INHALE QID PRN PRN Reason: Shortness of Breath Methylprednisolone Sodium Succinate (Methylprednisolone Sod Succ 40 Mg/Ml Vial) 20 mg IVPUSH Q12H [facility] Montelukast Sodium (Montelukast Sodium 10 Mg Tablet) 10 mg PO BEDTIME [facility] Last Admin: 04/06/22 21:28 Dose: 10 mg Morphine Sulfate (Morphine Sulfate 2 Mg/Ml Cartridge) 2 mg IVPUSH Q4H PRN; Protocol PRN Reason: Shortness of Breath Non-Formulary Medication (Umeclidinium-Vilanterol [Anoro Ellipta]) 1 each INHALE DAILY [facility] Omeprazole (Omeprazole 40 Mg Capsule.Dr) 40 mg PO BID@0630,1630 [facility] Last Admin: 04/07/22 05:11 Dose: 40 mg Ondansetron HCl (Ondansetron Hcl 4 Mg/2 Ml Vial) 4 mg IVPUSH Q8H PRN PRN Reason: Nausea and Vomiting Oxybutynin Chloride (Oxybutynin Chloride Er 5 Mg Tab.Er.24) 5 mg PO DAILY [facility] Last Admin: 04/07/22 08:49 Dose: 5 mg Pharmacy Consult (Consult Rx Perform Med Rec) 1 each MISCELLANE ONCE PRN PRN Reason: Consult order Polyethylene Glycol (Polyethylene Glycol 3350 17 Gm Powd.Pack) 17 gm PO DAILY PRN PRN Reason: Constipation Sodium Chloride (0.9 % Sodium Chloride Flush 3 Ml Syringe) 3 ml IVFLUSH QSHIFT [facility] Last Admin: 04/07/22 14:14 Dose: 3 ml Tobramycin Sulfate (Tobramycin Sulfate 80 Mg/2 Ml Vial) 300 mg INHALE Q12H [facility] Tramadol HCl (Tramadol Hcl 50 Mg Tablet) 50 mg PO BID [facility] Last Admin: 04/07/22 08:54 Dose: 50 mg Home Medications Medication Instructions Recorded Confirmed Type docusate sodium 100 mg capsule 100 mg PO BID 03/22/22 04/06/22 History fluticasone propionate 50 1 spray intranasal BID 03/22/22 04/06/22 History mcg/actuation nasal spray,suspension montelukast 10 mg tablet 10 mg PO BEDTIME 03/22/22 04/06/22 History nebulizers 03/22/22 History nitroglycerin 0.3 mg sublingual 0.3 mg sublingual Q5M PRN Chest 03/22/22 04/06/22 History tablet Pain omeprazole 40 mg capsule,delayed 40 mg PO BID 03/22/22 04/06/22 History release oxybutynin chloride 5 mg 5 mg PO DAILY 03/22/22 04/06/22 History tablet,extended release 24 hr polyethylene glycol 3350 17 17 g PO DAILY PRN Constipation 03/22/22 04/06/22 History gram/dose oral powder tramadol 50 mg tablet 50 mg PO BID 03/22/22 04/06/22 History albuterol sulfate 90 mcg/actuation 2 inh inhalation Q4H PRN Wheezing 04/06/22 04/06/22 History aerosol inhaler furosemide 20 mg tablet 1 tab PO DAILY 04/06/22 04/06/22 History lisinopril 2.5 mg tablet 1 tab PO DAILY 04/06/22 04/06/22 History Allergies Allergy/AdvReac Type Severity Reaction Status Date / Time carvedilol Allergy Shortness Verified 04/06/22 12:41 of Breath sertraline [From Zoloft] Allergy Shortness Verified 04/06/22 12:41 of Breath spironolactone Allergy Shortness Verified 04/06/22 12:41 of Breath Physical Exam Vital signs: Vital Signs Temp 98.1 F 04/07/22 11:05 Pulse 118 H 04/07/22 11:20 Resp 18 04/07/22 11:20 BP 142/74 H 04/07/22 11:05 Pulse Ox 98 04/07/22 11:05 O2 Del Method 04/07/22 11:05 Intake & Output 04/06/22 04/07/22 04/07/22 18:59 06:59 18:59 Intake Total 1350 / 1450 100 / 1450 390 / 390 Output Total 200 / 200 200 / 200 Balance 1350 / 1250 -100 / 1250 190 / 190 Urine Output (Average ml/kg/hr) 0.22 0.22 Intake: Intake, Oral Amount 340 / 340 Intake (Blood Product) Amount 350 / 350 Red Blood Cells (E0382) Unit 350 / 350 [id number] Intake, IV Amount 1000 / 1100 100 / 1100 50 / 50 cefEPime HCl 2 gm In 0.9 % 100 / 100 50 / 50 Sodium Chloride 50 ml @ 100 mls /hr IV Q8H [facility] Rx#:[id number] 0.9 % Sodium Chloride 1,000 ml 1000 / 1000 @ 999 mls/hr IVCONT .Q1H1M ONE Rx#:[id number] Output: Output, Urine Amount 200 / 200 Output, Urine Amount (Catheter) 200 / 200 Female External 200 / 200 Other: Breakfast % Eaten 100% Lunch % Eaten 100% Number of Unmeasured Voids 1 1 Last Bowel Movement 04/06/22 Weight 72.121 kg 75.3 kg [place] Weight in Grams 11694 Weight 75.3 kg Hem/Onc Consult Result - Labs CBC & Chem 7: 11/03/22 06:51 04/14/22 06:52 Labs: Short CBC 04/07/22 Range/Units 06:51 WBC 6.6 (4.8-10.8) X10*3/uL Hgb 9.0 L (12.0-16.0) g/dl Hct 27.4 L (37.0-47.0) % Plt Count 128 L (160-400) X10*3/uL [facility] 04/07/22 06:51 Sodium 137 Potassium 3.8 D Chloride 100 Carbon Dioxide 28 BUN 15 Creatinine 0.86 Calcium 8.2 L Assessment and Plan Patient Active problem list reviewed?: Yes (1) Anemia Status: Acute Assessment and plan: 81 year old lady admitted with shortness of breath and increased work of breathing. She was hypoxic. She was tachycardic. Given O2 inhalations and IV Cardizem. DIFFERENTIAL DIAGNOSIS: 1. HEMOLYTIC ANEMIA: Apparently had that recently when admitted to [facility]. Was given a unit of blood. 2. IRON DEFICIENCY ANEMIA: Likely contributing. Stool for guaiac is positive. Has been on anticoagulation which could be a risk factor. 3. ANEMIA OF CHRONIC DISEASE: Can coexist. 4. MYELO INFILTRATIVE DISORDER: MDS VERSUS MYELOMA VERSUS LYMPHOMA, are in the differential. PLAN: I have requested for records from [facility] to review the details. Note from Dr. Staples, from hematology: She underwent a detailed anemia workup. Most of her workup was unremarkable. Iron 95/IBC 247/saturation 38/ferritin 319. She had a low haptoglobin at 29, but negative Robert test: BERNARD: polyspecific: Negative. BERNARD ANTI C3D: Negative. BERNARD IgG: Negative. SIEP: IgG 425/IgM 57/IgA 131 One Willebrand's profile:. Normal Hemoglobin went down to 6.9. She received 1 unit of packed RBC. Rest of the time her hemoglobin remained above 8. Bone marrow biopsy was suggested but patient and her daughter denied it. Meanwhile, will recheck baseline hemolytic screen. Check Robert test. If she has autoimmune hemolytic anemia, steroids would help. Will continue to monitor her blood count. Transfuse as needed with least incompatible blood. Thank you for the consult, I will follow along with you, Cc: - Time Spent With Patient Time Spent with Patient (in minutes): 30
[2022-04-07] MEDS: Tobramycin Sulfate 80 MG/2 ML VIAL 300 MG INHALE (15:30)
[2022-04-07 15:32] LABS: MANUAL DIFF FLAG NO
[2022-04-07 15:33] LABS: Lactate Dehydrogenase 246 U/L (122-220)
[2022-04-07 15:35] LABS: Basophils Percent Auto 0.2 % (0-2); Imm Gran Abs Auto 0.14 X10*3/uL (0.00-0.03); Imm Gran Pct Auto 2.1 % (0.0-0.4); Immature Retic Fraction 25.8 % (3.0-15.9); Lymphocytes Absolute Auto 0.7 X10*3/uL (1.2-4.9); Lymphocytes Percent Auto 9.8 % (20-40); Monocytes Absolute Auto 0.2 X10*3/uL (0.1-1.2); Monocytes Percent Auto 3.3 % (2-11); Neutrophils Absolute Auto 5.6 x10*3/uL (2.0-8.3); Neutrophils Percent Auto 84.6 % (45-73); Retic HGB Equivalent 33.6 pg (30.0-35.0); Reticulocyte Percent 7.6 % (0.5-1.8); Reticulocytes Absolute 0.222 X10*6/uL (0.026-0.095)
--- NOTE | 2022-04-07 15:41 | HO.PM.IMPN ---
Subjective Subjective Date of Service: 04/07/22 Interval History: Offers no acute complaints of chest pain, no shortness of breath address complaining of congested cough, unable to bring up phlegm, denies fever chills, no nausea no vomiting no abdominal pain or diarrhea denies hematemesis or melena no acute issues overnight finger oximetry remains stable on room air Review of Systems [employer] no headache no dizziness CVS no chest pain, no palpitation no urinary urgency, no frequency Review of Systems: Yes all other systems are reviewed and are negative Physical Exam Vital Signs: Vital Signs: Last Vital Signs Temp 98.0 F 04/07/22 15:05 Pulse 117 H 04/07/22 15:34 Resp 18 04/07/22 15:34 BP 133/56 L 04/07/22 15:05 Pulse Ox 98 04/07/22 15:05 O2 Del Method 04/07/22 15:05 BMI result Body Mass Index 33.5 Const: Other: General awake alert x3, resting in bed, in no acute distress. Anicteric sclera Neck supple no JVD. CVS regular rate rhythm, Respiratory lungs bilateral rhonchi, no respiratory distress, no rales Gastrointestinal abdomen soft, nontender, bowel sounds audible, no guarding , no rigidity. Extremities diffuse ecchymosis both upper and lower extremities, mild lower extremity pitting edema Neuro nonfocal . Psych appropriate affect Objective Data Active Medications Acetaminophen (Acetaminophen 325 Mg Tablet) 650 mg PO Q6H PRN PRN Reason: Pain, Mild (Pain Scale 1-3) Albuterol/Ipratropium (Albuterol/Iprat 2.5/0.5mg 3 Ml Ampul.Neb) 3 ml INHALE RQ4H WHILE AWAKE [facility] Last Admin: 04/07/22 15:34 Dose: 3 ml Documented By: KRISHNA Diltiazem HCl (Diltiazem Hcl Cd 120 Mg Cap.Er.Deg) 120 mg PO DAILY [facility]; Protocol Last Admin: 04/07/22 08:49 Dose: 120 mg Documented By: YOBANI Docusate Sodium (Docusate Sodium 100 Mg Capsule) 100 mg PO DAILY PRN PRN Reason: Constipation Fluticasone Propionate (Fluticasone Propionate Nasal 16 Gm [place]) 1 spray NOSTRIL-B BID [facility] Last Admin: 04/07/22 08:50 Dose: Not Given Documented By: YOBANI Non-Admin Reason: Med Not Available Levalbuterol HCl (Levalbuterol Hcl 1.25 Mg/0.5 Ml Vial.Neb) 1.25 mg INHALE QID PRN PRN Reason: Shortness of Breath Methylprednisolone Sodium Succinate (Methylprednisolone Sod Succ 40 Mg/Ml Vial) 20 mg IVPUSH Q12H [facility] Montelukast Sodium (Montelukast Sodium 10 Mg Tablet) 10 mg PO BEDTIME [facility] Last Admin: 04/06/22 21:28 Dose: 10 mg Documented By: LORENA Morphine Sulfate (Morphine Sulfate 2 Mg/Ml Cartridge) 2 mg IVPUSH Q4H PRN; Protocol PRN Reason: Shortness of Breath Non-Formulary Medication (Umeclidinium-Vilanterol [Anoro Ellipta]) 1 each INHALE DAILY [facility] Omeprazole (Omeprazole 40 Mg Capsule.) 40 mg PO BID@0630,1630 [facility] Last Admin: 04/07/22 05:11 Dose: 40 mg Documented By: LORENA Ondansetron HCl (Ondansetron Hcl 4 Mg/2 Ml Vial) 4 mg IVPUSH Q8H PRN PRN Reason: Nausea and Vomiting Oxybutynin Chloride (Oxybutynin Chloride Er 5 Mg Tab.Er.24) 5 mg PO DAILY [facility] Last Admin: 04/07/22 08:49 Dose: 5 mg Documented By: YOBANI Pharmacy Consult (Consult Rx Perform Med Rec) 1 each MISCELLANE ONCE PRN PRN Reason: Consult order Polyethylene Glycol (Polyethylene Glycol 3350 17 Gm Powd.Pack) 17 gm PO DAILY PRN PRN Reason: Constipation Sodium Chloride (0.9 % Sodium Chloride Flush 3 Ml Syringe) 3 ml IVFLUSH QSHIFT [facility] Last Admin: 04/07/22 14:14 Dose: 3 ml Documented By: YOBANI Tobramycin Sulfate (Tobramycin Sulfate 80 Mg/2 Ml Vial) 300 mg INHALE Q12H [facility] Last Admin: 04/07/22 15:30 Dose: 300 mg Documented By: KRISHNA Tramadol HCl (Tramadol Hcl 50 Mg Tablet) 50 mg PO BID [facility] Last Admin: 04/07/22 08:54 Dose: 50 mg Documented By: YOBANI Labs CBC & Chem 7: 04/07/22 06:51 10/27/22 06:51 Labs: Laboratory Results - last 24 hr 04/06/22 04/06/22 04/06/22 13:06 13:06 15:20 MCV MCH MCHC RDW Plt Count MPV Immature Gran % (Auto) Neut % (Auto) Lymph % (Auto) [place] % (Auto) Eos % (Auto) Baso % (Auto) Lymph # (Auto) [place] # (Auto) Eos # (Auto) Baso # (Auto) Abs Immat Gran (auto) Absolute Neuts (auto) Absolute Nucleated RBC Nucleated RBC % (auto) Neutrophils % (Manual) Band Neutrophils % Lymphocytes % (Manual) Atypical Lymphs % (Man) Monocytes % (Manual) Eosinophils % (Manual) Basophils % (Manual) Metamyelocytes % Myelocytes % Promyelocytes % Blast Cells % (Manual) Plasma Cell % (Manual) Abs Neuts (Manual) Lymphocytes # (Manual) Atyp Lymphs # (Manual) Monocytes # (Manual) Eosinophils # (Manual) Basophils # (Manual) Metamyelocytes # Myelocytes # Promyelocytes # Blast Cells # Plasma Cell # (Manual) Nucleated RBCs Differential Comment Hypersegmented Neuts Smudge Cells Toxic Granulation Toxic Vacuolation Dohle Bodies [place]s WBC Morphology Comment Platelet Estimate Large Platelets Giant Platelets Plt Morphology Comment RBC Morphology Polychromasia Hypochromasia Basophilic Stippling Microcytosis Macrocytosis Spherocytes Pappenheimer Bodies Sickle Cells Target Cells Tear Drop Cells Ovalocytes Stomatocytes [place] Bodies [place] Cells Acanthocytes (Spur) Rouleaux Schistocytes Absolute Retic Percent Retic Immature Retic Fraction Retic Hgb Equivalent Anion Gap Estim Creat Clear Calc Estimated GFR Random Glucose Lactic Acid 2.2 H* Lactic Acid F/U @ 2Hr Lactic Acid F/U @ 4Hr Calcium Magnesium 1.8 Lactate Dehydrogenase Blood Type A Positive Antibody Screen NEGATIVE Crossmatch See Detail 04/06/22 04/06/22 04/07/22 15:20 17:57 06:51 MCV 94.8 MCH 31.1 MCHC 32.8 RDW 18.7 H Plt Count 128 L MPV 9.9 Immature Gran % (Auto) 2.1 H Neut % (Auto) 84.6 H Lymph % (Auto) 9.8 L [place] % (Auto) 3.3 Eos % (Auto) 0.0 Baso % (Auto) 0.2 Lymph # (Auto) 0.7 L [place] # (Auto) 0.2 Eos # (Auto) 0.0 Baso # (Auto) 0.0 Abs Immat Gran (auto) 0.14 H Absolute Neuts (auto) 5.6 Absolute Nucleated RBC 0.040 H Nucleated RBC % (auto) 0.6 H Neutrophils % (Manual) Cancelled Band Neutrophils % Cancelled Lymphocytes % (Manual) Cancelled Atypical Lymphs % (Man) Cancelled Monocytes % (Manual) Cancelled Eosinophils % (Manual) Cancelled Basophils % (Manual) Cancelled Metamyelocytes % Cancelled Myelocytes % Cancelled Promyelocytes % Cancelled Blast Cells % (Manual) Cancelled Plasma Cell % (Manual) Cancelled Abs Neuts (Manual) Cancelled Lymphocytes # (Manual) Cancelled Atyp Lymphs # (Manual) Cancelled Monocytes # (Manual) Cancelled Eosinophils # (Manual) Cancelled Basophils # (Manual) Cancelled Metamyelocytes # Cancelled Myelocytes # Cancelled Promyelocytes # Cancelled Blast Cells # Cancelled Plasma Cell # (Manual) Cancelled Nucleated RBCs Cancelled Differential Comment Cancelled Hypersegmented Neuts Cancelled Smudge Cells Cancelled Toxic Granulation Cancelled Toxic Vacuolation Cancelled Dohle Bodies Cancelled [place] Cancelled WBC Morphology Comment Cancelled Platelet Estimate Cancelled Large Platelets Cancelled Giant Platelets Cancelled Plt Morphology Comment Cancelled RBC Morphology Cancelled Polychromasia Cancelled Hypochromasia Cancelled Basophilic Stippling Cancelled Microcytosis Cancelled Macrocytosis Cancelled Spherocytes Cancelled Pappenheimer Bodies Cancelled Sickle Cells Cancelled Target Cells Cancelled Tear Drop Cells Cancelled Ovalocytes Cancelled Stomatocytes Cancelled [place] Bodies Cancelled Joelle Cells Cancelled Acanthocytes (Spur) Cancelled Rouleaux Cancelled Schistocytes Cancelled Absolute Retic 0.222 H Percent Retic 7.6 H Immature Retic Fraction 25.8 H Retic Hgb Equivalent 33.6 Anion Gap Estim Creat Clear Calc Estimated GFR Random Glucose Lactic Acid Lactic Acid F/U @ 2Hr 2.6 H* Lactic Acid F/U @ 4Hr 2.0 Calcium Magnesium Lactate Dehydrogenase Blood Type Antibody Screen Crossmatch 04/07/22 06:51 MCV MCH MCHC RDW Plt Count MPV Immature Gran % (Auto) Neut % (Auto) Lymph % (Auto) [place] % (Auto) Eos % (Auto) Baso % (Auto) Lymph # (Auto) [place] # (Auto) Eos # (Auto) Baso # (Auto) Abs Immat Gran (auto) Absolute Neuts (auto) Absolute Nucleated RBC Nucleated RBC % (auto) Neutrophils % (Manual) Band Neutrophils % Lymphocytes % (Manual) Atypical Lymphs % (Man) Monocytes % (Manual) Eosinophils % (Manual) Basophils % (Manual) Metamyelocytes % Myelocytes % Promyelocytes % Blast Cells % (Manual) Plasma Cell % (Manual) Abs Neuts (Manual) Lymphocytes # (Manual) Atyp Lymphs # (Manual) Monocytes # (Manual) Eosinophils # (Manual) Basophils # (Manual) Metamyelocytes # Myelocytes # Promyelocytes # Blast Cells # Plasma Cell # (Manual) Nucleated RBCs Differential Comment Hypersegmented Neuts Smudge Cells Toxic Granulation Toxic Vacuolation Dohle Bodies [place] WBC Morphology Comment Platelet Estimate Large Platelets Giant Platelets Plt Morphology Comment RBC Morphology Polychromasia Hypochromasia Basophilic Stippling Microcytosis Macrocytosis Spherocytes Pappenheimer Bodies Sickle Cells Target Cells Tear Drop Cells Ovalocytes Stomatocytes [place] Bodies [place] Cells Acanthocytes (Spur) Rouleaux Schistocytes Absolute Retic Percent Retic Immature Retic Fraction Retic Hgb Equivalent Anion Gap 13 Estim Creat Clear Calc 43.8 Estimated GFR > 60 Random Glucose 218 H Lactic Acid Lactic Acid F/U @ 2Hr Lactic Acid F/U @ 4Hr Calcium 8.2 L Magnesium Lactate Dehydrogenase 246 H Blood Type Antibody Screen Crossmatch Microbiology Microbiology Results: Microbiology 04/06/22 13:12 Blood Culture - Preliminary Blood - Venous No growth after 24 hours. 04/06/22 13:06 Blood Culture - Preliminary Blood - Venous No growth after 24 hours. Assessment and Plan (1) Pseudomonas respiratory infection: Status: Acute (2) Anemia: Status: Acute (3) CAD (coronary artery disease): Status: Acute (4) Acute respiratory failure with hypoxia: Status: Acute (5) COPD (chronic obstructive pulmonary disease): Status: Acute Plan 81-year-old female with history hypertension, anemia chronic disease, atrial fibrillation anticoagulated with Eliquis, bronchiectasis, hyperlipidemia, CAD s/p CABG x4, mild aortic stenosis, chronic low back pain on tramadol, and diastolic congstive heart failure with preserved ejection fraction 50-55% admitted for COPD exacerbation with sputum culture positive for Pseudomonas and corynebacterium. #Acute hypoxic respiratory failure due to acute COPD exacerbation with tracheobronchitis -Non oxygen dependent at home,Noted to desat to 88% with ambulation -Sputum culture 03/22 positive for Pseudomonas and corynebacterium species -recently treated initially inpatient at [facility] an outpatient with Levaquin as well as prednisone -CXR/chest CT negative for acute pneumonia, Negative for COVID-19. -patient seen by Dr. Barnes from pulmonology he recommend to discontinue IV antibiotics since recently finished multiple courses of antibiotics he recommended tobramycin inhalation Will wean IV steroids continue updraft treatments, Anoro ellipta , add cough expectorant -Pt afebrile. Tachycardia related to afib with rvr, tachypneic secondary to COPD exacerbation. Lactic acidosis secondary to albuterol use, now normalized. No severe sepsis # acute anemia -likely secondary to slow GI bleed with heme-positive stool on Eliquis as well as diffuse ecchymosis. Await input from Oncology Patient seen by Dr. Rossi from Gastroenterology he recommend EGD and colonoscopy for further eval 1 patient clinically stable if family wishes to pursue invasive evaluation Abd [facility] 03/23 without colitis, diverticulitis. Showing thickened endometrium. No other significant abnormality to explain bleeding -H/H 7.9/24.9 on admission hematocrit improved to 9/27.4 after 1 unit ,follow CBC -hold Eliquis and aspirin # chronic persistent atrial fibrillation-with RVR, -given 5 mg push IV diltiazem in ER, will increase dose of diltiazem to 180 mg daily -hold Eliquis and aspirin due to significant ecchymosis and heme-positive stool -seen by Cardiology they agree with above treatment plan and recommend outpatient follow-up with primary hospital orderly for Watchman device in case patient cannot be placed back on Eliquis # HTN -BP stable continue diltiazem elevated heart rate Cardio recommend to increase dose of diltiazem to 180 mg continue to hold lisinopril # CAD s/p CABG x4 -no anginal chest pain -hold aspirin for now, seen by Cardiology no further workup recommended. # diastolic heart failure with preserved ejection fraction-stable -BNP 160.? No pleural effusions -continue home dose of furosemide # Obesity BMI greater than 33.5 DVT prophylaxis-mechanical.? Hold Eliquis for now due to GI bleed Full code Patient requires continued inpatient stay due to COPD exacerbation with sputum culture positive for Pseudomonas , as well as acute blood loss anemia requiring transfusion with close follow-up and monitoring of blood counts, blood cultures. Quality Stroke Does the patient have a stroke diagnosis?: No VTE Prior VTE?: No VTE Risk Level:: Medical - moderate - high VTE Device Contraindication: Treatment Not Indicated VTE Drug Contraindication: N/A - Med Ordered
[2022-04-07] MEDS: methylPREDNISolone Sod Succ 40 MG/ML VIAL 20 MG IVPUSH (17:12)
[2022-04-07] MEDS: Morphine Sulfate 2 MG/ML CARTRIDGE IVPUSH (17:13)
[2022-04-07] MEDS: Montelukast Sodium 10 MG TABLET PO (22:42)
[2022-04-07] MEDS: Fluticasone Propionate Nasal 16 GM SPRAY 1 SPRAY NOSTRIL-B (22:43)
[2022-04-08] VITALS (12 sets, daily range): BP systolic 123–165; BP diastolic 59–90; PULSE 74–125; RESP 17–24; TEMP 36–37; O2SAT 93–100
[2022-04-08] MEDS: Tobramycin Sulfate 80 MG/2 ML VIAL 300 MG INHALE ×2 (01:56→15:40)
--- NOTE | 2022-04-08 03:33 | CONS_ITS ---
DATE OF SERVICE: 04/07/2022 REFERRING PHYSICIAN: SANDY Chirinos REASON FOR CONSULTATION: Anemia and Hemoccult-positive stools. HISTORY OF PRESENT ILLNESS: The patient is a pleasant 81-year-old woman who was admitted to the hospital after presenting to the emergency room yesterday with complaints of shortness of breath. She was evaluated earlier at [facility] for COPD exacerbation in mid March and treated with steroids and antibiotics. 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 On admission yesterday, she was noted to be anemic with a hematocrit of 24.9 and Hemoccult-positive stools. There have been no reported melena or hematochezia. The patient did undergo colonoscopy approximately 20 years ago with a hyperplastic polyp being found. She has no complaints of gastroesophageal reflux disease, epigastric pain, or change in her bowel habits. She is currently being treated for COPD exacerbation and tracheobronchitis with antibiotics and steroids. She did receive 1 unit of packed red blood cells with improvement. She has had no reported bleeding since admission. She also has a history of paroxysmal atrial fibrillation and has been on Eliquis, which has been held. She did have a rapid ventricular response and was given diltiazem on admission. PAST MEDICAL HISTORY: 1. COPD. 2. Anemia as above. 3. Hypertension. 4. Atrial fibrillation. 5. Bronchiectasis. 6. Pulmonary nodules. 7. Back pain. 8. Aortic stenosis. 9. Coronary artery disease with history of coronary artery bypass grafting. 10. Diastolic congestive heart failure. CURRENT MEDICATIONS: Her current medication list is reviewed in the chart. ALLERGIES: MULTIPLE MEDICATION ALLERGIES ARE REVIEWED. FAMILY HISTORY: This is reviewed with the patient and is noncontributory. SOCIAL HISTORY: There is no current tobacco, alcohol, or substance abuse. REVIEW OF SYSTEMS: SKIN: No pruritus. HEENT: Negative. CARDIOPULMONARY: No shortness of breath or chest pain. GASTROINTESTINAL: As above. GENITOURINARY: Negative. NEUROPSYCHIATRIC: Negative. PHYSICAL EXAMINATION: GENERAL: Shows a pleasant female, lying comfortably in bed, receiving nebulizer treatment. VITAL SIGNS: Reviewed in electronic medical record and are stable. SKIN: Shows multiple ecchymoses. HEENT: Shows no scleral Icterus. NECK: Without lymphadenopathy or thyromegaly. LUNGS: Remarkable for diffuse wheezing. HEART: Shows an irregular S1, S2. No murmur. ABDOMEN: Soft without focal masses or tenderness. Bowel sounds are present. No organomegaly is noted extremities show ecchymoses. LABORATORY DATA: Shows a white blood cell count of 6.6, hematocrit 27.4 following transfusion of 1 unit of packed red blood cells. INR 1.9. IMPRESSION: Anemia with Hemoccult-positive stools. At this time, she does not appear to have any active GI bleeding. I would recommend continuing an oral proton pump inhibitor as she is on steroids and has been recently for COPD. Invasive evaluation with endoscopy and colonoscopy could be considered semielectively once her pulmonary status improves as currently she would not likely tolerate endoscopic procedures because of her pulmonary status. This can be arranged if the patient and her daughter wished to proceed. Thanks for asking me to see her. I will follow her in the hospital with you. MD ROSSANA Chicas/SAMRA / [id number]
[2022-04-08] MEDS: methylPREDNISolone Sod Succ 40 MG/ML VIAL 20 MG IVPUSH ×2 (05:49→17:20)
[2022-04-08 07:08] LABS: Hematocrit 27.7 % (37.0-47.0); Hemoglobin 8.9 g/dl (12.0-16.0); Mean Corpuscular HGB Conc 32.1 g/dl (31.0-35.0); Mean Corpuscular Hemoglobin 30.9 pg (27.0-33.0); Mean Corpuscular Volume 96.2 fL (80.0-98.0); Mean Platelet Volume 9.7 fL (9.4-12.3); NRBC Pct Auto 0.3 /100WBC (0.0-0.2); Platelet Count 151 X10*3/uL (160-400); Red Blood Count 2.88 X10*6/uL (4.20-5.50); Red Cell Distribution Width 18.7 % (11.0-16.0); White Blood Count 9.4 X10*3/uL (4.8-10.8)
[2022-04-08 07:26] LABS: Anion Gap 13 (12-20); Blood Urea Nitrogen 20 mg/dL (9-16); Calcium 8.7 mg/dL (8.4-10.2); Carbon Dioxide 28 mmol/L (22-29); Chloride 100 mmol/L (96-108); Estimated Glomerular Filt Rate 58; Glucose Random 186 mg/dL (60-115); Potassium 3.8 mmol/L (3.3-5.1); Sodium 137 mmol/L (135-145)
[2022-04-08] MEDS: dilTIAZem HCL CD 120 MG CAP.ER.DEG PO (08:20)
[2022-04-08] MEDS: traMADoL HCL 50 MG TABLET PO ×2 (08:21→20:52)
[2022-04-08] MEDS: Omeprazole 40 MG CAPSULE.DR PO ×2 (08:21→17:19)
[2022-04-08] MEDS: Fluticasone Propionate Nasal 16 GM SPRAY 1 SPRAY NOSTRIL-B ×2 (08:22→20:52)
[2022-04-08] MEDS: 0.9 % Sodium Chloride Flush 3 ML SYRINGE IVFLUSH ×3 (08:22→20:54)
--- NOTE | 2022-04-08 14:49 | P.PNIM_ITS ---
Subjective Subjective Date of Service: 04/08/22 Interval History: Being followed for shortness breath and weakness patient feeling better this morning complaining of less shortness of breath and cough no other acute issues overnight oxygenation remains stable on room air, patient tolerating diet with no nausea, no vomiting, no abdominal pain, and no diarrhea. Review of Systems Review of Systems: Yes all other systems are reviewed and are negative Physical Exam Vital Signs: Vital Signs: Last Vital Signs Temp 96.8 F 04/08/22 11:53 Pulse 109 H 04/08/22 12:14 Resp 20 04/08/22 12:14 BP 129/62 04/08/22 11:53 Pulse Ox 98 04/08/22 11:53 O2 Del Method 04/08/22 11:53 BMI result Body Mass Index 33.5 Const: Other: General awake alert x3, resting in bed, in no acute distress.? Anicteric sclera Neck supple no JVD. CVS? regular rate rhythm, Respiratory lungs bilateral rhonchi, no respiratory distress, no rales Gastrointestinal abdomen soft, nontender, bowel sounds audible, no guarding , no rigidity. Extremities diffuse ecchymosis both upper and lower extremities, mild lower extremity pitting edema Neuro nonfocal . Psych appropriate affect Objective Data Active Medications Acetaminophen (Acetaminophen 325 Mg Tablet) 650 mg PO Q6H PRN PRN Reason: Pain, Mild (Pain Scale 1-3) Diltiazem HCl (Diltiazem Hcl Cd 120 Mg Cap.Er.Deg) 120 mg PO DAILY [facility]; Protocol Last Admin: 04/08/22 08:20 Dose: 120 mg Documented By: TOM Docusate Sodium (Docusate Sodium 100 Mg Capsule) 100 mg PO DAILY PRN PRN Reason: Constipation Fluticasone Propionate (Fluticasone Propionate Nasal 16 Gm [place]) 1 spray NOSTRIL-B BID [facility] Last Admin: 04/08/22 08:22 Dose: 1 spray Documented By: TOM Levalbuterol HCl (Levalbuterol Hcl 1.25 Mg/0.5 Ml Vial.Neb) 1.25 mg INHALE QID PRN PRN Reason: Shortness of Breath Levalbuterol HCl (Levalbuterol Hcl 1.25 Mg/0.5 Ml Vial.Neb) 1.25 mg INHALE RQ4H WHILE AWAKE [facility] Last Admin: 04/08/22 12:14 Dose: 1.25 mg Documented By: KRISHNA Methylprednisolone Sodium Succinate (Methylprednisolone Sod Succ 40 Mg/Ml Vial) 20 mg IVPUSH Q12H [facility] Last Admin: 04/08/22 05:49 Dose: 20 mg Documented By: SHERRY Montelukast Sodium (Montelukast Sodium 10 Mg Tablet) 10 mg PO BEDTIME [facility] Last Admin: 04/07/22 22:42 Dose: 10 mg Documented By: NOLVIA Morphine Sulfate (Morphine Sulfate 2 Mg/Ml Cartridge) 2 mg IVPUSH Q4H PRN; Protocol PRN Reason: Shortness of Breath Last Admin: 04/07/22 17:13 Dose: 2 mg Documented By: NOLVIA Non-Formulary Medication (Umeclidinium-Vilanterol [Anoro Ellipta]) 1 each INHALE DAILY [facility] Omeprazole (Omeprazole 40 Mg Capsule.Dr) 40 mg PO BID@0630,1630 [facility] Last Admin: 04/08/22 08:21 Dose: 40 mg Documented By: TOM Ondansetron HCl (Ondansetron Hcl 4 Mg/2 Ml Vial) 4 mg IVPUSH Q8H PRN PRN Reason: Nausea and Vomiting Oxybutynin Chloride (Oxybutynin Chloride Er 5 Mg Tab.Er.24) 5 mg PO DAILY [facility] Last Admin: 04/08/22 08:21 Dose: 5 mg Documented By: TOM Pharmacy Consult (Consult Rx Perform Med Rec) 1 each MISCELLANE ONCE PRN PRN Reason: Consult order Polyethylene Glycol (Polyethylene Glycol 3350 17 Gm Powd.Pack) 17 gm PO DAILY PRN PRN Reason: Constipation Sodium Chloride (0.9 % Sodium Chloride Flush 3 Ml Syringe) 3 ml IVFLUSH QSHIFT [facility] Last Admin: 04/08/22 08:22 Dose: 3 ml Documented By: TOM Tobramycin Sulfate (Tobramycin Sulfate 80 Mg/2 Ml Vial) 300 mg INHALE Q12H [facility] Last Admin: 04/08/22 01:56 Dose: 300 mg Documented By: SOURAV Tramadol HCl (Tramadol Hcl 50 Mg Tablet) 50 mg PO BID [facility] Last Admin: 04/08/22 08:21 Dose: 50 mg Documented By: TOM Labs CBC & Chem 7: 04/08/22 06:38 04/08/22 06:38 Labs: Laboratory Results - last 24 hr 04/06/22 04/07/22 04/07/22 15:20 06:51 06:51 MCV MCH MCHC RDW Plt Count MPV Immature Gran % (Auto) 2.1 H Neut % (Auto) 84.6 H Lymph % (Auto) 9.8 L Ware % (Auto) 3.3 Eos % (Auto) 0.0 Baso % (Auto) 0.2 Lymph # (Auto) 0.7 L [place] # (Auto) 0.2 Eos # (Auto) 0.0 Baso # (Auto) 0.0 Abs Immat Gran (auto) 0.14 H Absolute Neuts (auto) 5.6 Absolute Nucleated RBC Nucleated RBC % (auto) Neutrophils % (Manual) Cancelled Band Neutrophils % Cancelled Lymphocytes % (Manual) Cancelled Atypical Lymphs % (Man) Cancelled Monocytes % (Manual) Cancelled Eosinophils % (Manual) Cancelled Basophils % (Manual) Cancelled Metamyelocytes % Cancelled Myelocytes % Cancelled Promyelocytes % Cancelled Blast Cells % (Manual) Cancelled Plasma Cell % (Manual) Cancelled Abs Neuts (Manual) Cancelled Lymphocytes # (Manual) Cancelled Atyp Lymphs # (Manual) Cancelled Monocytes # (Manual) Cancelled Eosinophils # (Manual) Cancelled Basophils # (Manual) Cancelled Metamyelocytes # Cancelled Myelocytes # Cancelled Promyelocytes # Cancelled Blast Cells # Cancelled Plasma Cell # (Manual) Cancelled Nucleated RBCs Cancelled Differential Comment Cancelled Hypersegmented Neuts Cancelled Smudge Cells Cancelled Toxic Granulation Cancelled Toxic Vacuolation Cancelled Dohle Bodies Cancelled [place] Cancelled WBC Morphology Comment Cancelled Platelet Estimate Cancelled Large Platelets Cancelled Giant Platelets Cancelled Plt Morphology Comment Cancelled RBC Morphology Cancelled Polychromasia Cancelled Hypochromasia Cancelled Basophilic Stippling Cancelled Microcytosis Cancelled Macrocytosis Cancelled Spherocytes Cancelled Pappenheimer Bodies Cancelled Sickle Cells Cancelled Target Cells Cancelled Tear Drop Cells Cancelled Ovalocytes Cancelled Stomatocytes Cancelled Aceves-Omega Bodies Cancelled Joelle Cells Cancelled Acanthocytes (Spur) Cancelled Rouleaux Cancelled Schistocytes Cancelled Absolute Retic 0.222 H Percent Retic 7.6 H Immature Retic Fraction 25.8 H Retic Hgb Equivalent 33.6 Anion Gap Estim Creat Clear Calc Estimated GFR Random Glucose Calcium Lactate Dehydrogenase 246 H Blood Type A Positive Antibody Screen NEGATIVE BERNARD, Polyspecific NEGATIVE Positive BERNARD Work-up TNP Crossmatch See Detail 04/08/22 04/08/22 06:38 06:38 MCV 96.2 MCH 30.9 MCHC 32.1 RDW 18.7 H Plt Count 151 L MPV 9.7 Immature Gran % (Auto) Neut % (Auto) Lymph % (Auto) Ware % (Auto) Eos % (Auto) Baso % (Auto) Lymph # (Auto) Ware # (Auto) Eos # (Auto) Baso # (Auto) Abs Immat Gran (auto) Absolute Neuts (auto) Absolute Nucleated RBC 0.030 H Nucleated RBC % (auto) 0.3 H Neutrophils % (Manual) Band Neutrophils % Lymphocytes % (Manual) Atypical Lymphs % (Man) Monocytes % (Manual) Eosinophils % (Manual) Basophils % (Manual) Metamyelocytes % Myelocytes % Promyelocytes % Blast Cells % (Manual) Plasma Cell % (Manual) Abs Neuts (Manual) Lymphocytes # (Manual) Atyp Lymphs # (Manual) Monocytes # (Manual) Eosinophils # (Manual) Basophils # (Manual) Metamyelocytes # Myelocytes # Promyelocytes # Blast Cells # Plasma Cell # (Manual) Nucleated RBCs Differential Comment Hypersegmented Neuts Smudge Cells Toxic Granulation Toxic Vacuolation Dohle Bodies [place] WBC Morphology Comment Platelet Estimate Large Platelets Giant Platelets Plt Morphology Comment RBC Morphology Polychromasia Hypochromasia Basophilic Stippling Microcytosis Macrocytosis Spherocytes Pappenheimer Bodies Sickle Cells Target Cells Tear Drop Cells Ovalocytes Stomatocytes Aceves-Omega Bodies Joelle Cells Acanthocytes (Spur) Rouleaux Schistocytes Absolute Retic Percent Retic Immature Retic Fraction Retic Hgb Equivalent Anion Gap 13 Estim Creat Clear Calc 41.0 Estimated GFR 58 Random Glucose 186 H Calcium 8.7 D Lactate Dehydrogenase Blood Type Antibody Screen BERNARD, Polyspecific Positive BERNARD Work-up Crossmatch Microbiology Microbiology Results: Microbiology 04/06/22 13:12 Blood Culture - Preliminary Blood - Venous No growth after 24 hours. 04/06/22 13:06 Blood Culture - Preliminary Blood - Venous No growth after 24 hours. Assessment and Plan (1) Pseudomonas respiratory infection: Status: Acute (2) Anemia: Status: Acute (3) CAD (coronary artery disease): Status: Acute (4) Acute respiratory failure with hypoxia: Status: Acute (5) COPD (chronic obstructive pulmonary disease): Status: Acute Plan 81-year-old female with history hypertension, anemia chronic disease, atrial fibrillation anticoagulated with Eliquis, bronchiectasis, hyperlipidemia, CAD s/p CABG x4, mild aortic stenosis, chronic low back pain on tramadol, and diastolic congstive heart failure with preserved ejection fraction 50-55% admitted for COPD exacerbation with sputum culture positive for Pseudomonas and corynebacterium. #Acute hypoxic respiratory failure due to acute COPD exacerbation with tracheobronchitis Patient feeling better this morning less shortness of breath and cough -Non oxygen dependent at home,Noted to desat to 88% with ambulation -Sputum culture 03/22 positive for Pseudomonas and corynebacterium species, blood cultures x2 negative -recently treated initially inpatient at [facility] an outpatient with Levaquin as well as prednisone -CXR/chest CT negative for acute pneumonia, Negative for COVID-19. -patient seen by Dr. Barnes he recommend tobramycin inhalation, and low-dose steroids cont. Anoro ellipta , cough expectorant and O2 support # acute anemia no acute blood loss -likely secondary to slow GI bleed with heme-positive stool on Eliquis, all likely due to acute infection.Abd CT [facility] 03/23 without colitis, diverticulitis. Showing thickened endometrium. No other significant abnormality to explain bleeding Patient seen by Dr. Rossi from Gastroenterology he recommend EGD and colonoscopy for further eval once patient clinically stable and if family wishes to pursue invasive evaluation Case discussed with Dr. Damian there is no evidence of hemolysis, she will discuss bone marrow examination with family Case discussed with Cardiology they agree to hold Eliquis and aspirin out portion follow-up with Cardiology for watchman's procedure H/H 7.9/24.9 on admission hematocrit improved to 27.7 after 1 unit ,follow CBC # chronic persistent atrial fibrillation-with RVR, -given 5 mg push IV diltiazem in ER, now on diltiazem to 180 mg daily , home dose 120 mg -hold Eliquis and aspirin due to significant ecchymosis and heme-positive stool -seen by Cardiology they agree with above treatment plan and recommend outpatient follow-up with primary fitness center attendant for Watchman device in case patient cannot be placed back on Eliquis # HTN -BP stable continue diltiazem 180 mg continue to hold lisinopril # CAD s/p CABG x4 -no anginal chest pain -hold aspirin for now, seen by Cardiology no further workup recommended. # diastolic heart failure with preserved ejection fraction-stable -BNP 160.? No pleural effusions -continue home dose of furosemide # Obesity BMI greater than 33.5 DVT prophylaxis-mechanical.? Hold Eliquis Full code Patient requires continued inpatient stay due to COPD exacerbation with sputum culture positive for Pseudomonas , as well acute on chronic anemia requiring tra nsfusion with close follow-up and monitoring of blood counts, blood cultures. Quality Stroke Does the patient have a stroke diagnosis?: No VTE Prior VTE?: No VTE Risk Level:: Medical - moderate - high VTE Device Contraindication: Treatment Not Indicated VTE Drug Contraindication: N/A - Med Ordered
[2022-04-08] MEDS: Montelukast Sodium 10 MG TABLET PO (20:52)
[2022-04-08] MEDS: guaiFEN/Codeine SF 200/20/10ML 10 ML LIQUID 5 ML PO (22:04)
[2022-04-09] VITALS (11 sets, daily range): BP systolic 136–169; BP diastolic 71–94; PULSE 119–124; RESP 12–24; TEMP 36.1–36.9; O2SAT 93–98
[2022-04-09] MEDS: Morphine Sulfate 2 MG/ML CARTRIDGE IVPUSH (01:08)
[2022-04-09] MEDS: Tobramycin Sulfate 80 MG/2 ML VIAL 300 MG INHALE ×2 (02:03→15:11)
[2022-04-09] MEDS: LORazepam 0.5 MG TABLET PO (02:45)
[2022-04-09] MEDS: methylPREDNISolone Sod Succ 40 MG/ML VIAL 20 MG IVPUSH (06:22)
[2022-04-09] MEDS: Omeprazole 40 MG CAPSULE.DR PO ×2 (06:31→17:15)
[2022-04-09 07:31] LABS: Hematocrit 30.7 % (37.0-47.0); Hemoglobin 9.7 g/dl (12.0-16.0); Mean Corpuscular HGB Conc 31.6 g/dl (31.0-35.0); Mean Corpuscular Hemoglobin 30.6 pg (27.0-33.0); Mean Corpuscular Volume 96.8 fL (80.0-98.0); NRBC Pct Auto 0.2 /100WBC (0.0-0.2); Platelet Count 174 X10*3/uL (160-400); Red Blood Count 3.17 X10*6/uL (4.20-5.50); Red Cell Distribution Width 18.5 % (11.0-16.0); White Blood Count 12.7 X10*3/uL (4.8-10.8)
[2022-04-09 07:49] LABS: Anion Gap 16 (12-20); Blood Urea Nitrogen 22 mg/dL (9-16); Calcium 8.8 mg/dL (8.4-10.2); Carbon Dioxide 25 mmol/L (22-29); Chloride 101 mmol/L (96-108); Creatinine Clr Calc Pharmacy 47.7; Estimated Glomerular Filt Rate > 60; Glucose Random 155 mg/dL (60-115); Potassium 4.2 mmol/L (3.3-5.1); Sodium 138 mmol/L (135-145)
[2022-04-09] MEDS: traMADoL HCL 50 MG TABLET PO ×2 (10:09→20:49)
[2022-04-09] MEDS: dilTIAZem HCL CD 180 MG CAP.ER.24H PO (10:09)
[2022-04-09] MEDS: 0.9 % Sodium Chloride Flush 3 ML SYRINGE IVFLUSH ×3 (10:10→20:49)
[2022-04-09] MEDS: Fluticasone Propionate Nasal 16 GM SPRAY 1 SPRAY NOSTRIL-B ×2 (10:10→20:49)
--- NOTE | 2022-04-09 11:59 | P.PNIM_ITS ---
Subjective Subjective Date of Service: 04/10/22 Interval History: Patient complaining of being jittery, also complaining of left left upper quadrant pain worse with coughing intermittent in nature not associated with nausea vomiting, does not recall when she had last bowel movement no diarrhea noted, patient noted to be vague this morning at times says that she had a dream, gets frustrated when ask about details, daughter at bedside concern the patient is confused, Patient aware of place, talking in full sentences, stating that she is not confused, although saying few things not making sense, like she fell down and had the left upper quadrant pain but unable to explain when she fell, no overnight fever, chills noted to have elevated blood pressure and pulse this morning, denies chest pain, no palpitation has persistent cough productive of light yellow phlegm. Review of Systems Review of Systems: Yes all other systems are reviewed and are negative Physical Exam Vital Signs: Vital Signs: Last Vital Signs Temp 96.9 F 04/09/22 07:24 Pulse 124 H 04/09/22 10:10 Resp 22 H 04/09/22 10:10 BP 157/94 H 04/09/22 07:24 Pulse Ox 96 04/09/22 07:24 O2 Del Method 04/09/22 07:24 BMI result Body Mass Index 33.5 Const: Other: General awake alert x3, resting in bed, in no acute distress.? Anicteric sclera Neck supple no JVD. CVS? regular rate rhythm, Respiratory lungs bilateral rhonchi, no respiratory distress, no rales Gastrointestinal abdomen soft, nontender, bowel sounds audible, no guarding , no rigidity. Extremities diffuse ecchymosis both upper and lower extremities, mild lower extremity pitting edema Neuro speech clear, aware of place and person Objective Data Active Medications Acetaminophen (Acetaminophen 325 Mg Tablet) 650 mg PO Q6H PRN PRN Reason: Pain, Mild (Pain Scale 1-3) Benzonatate (Benzonatate 100 Mg Capsule) 200 mg PO TID PRN PRN Reason: cough Diltiazem HCl (Diltiazem Hcl Cd 180 Mg Cap.Er.24h) 180 mg PO DAILY [facility]; Protocol Last Admin: 04/09/22 10:09 Dose: 180 mg Documented By: NAYELI Docusate Sodium (Docusate Sodium 100 Mg Capsule) 100 mg PO DAILY PRN PRN Reason: Constipation Fluticasone Propionate (Fluticasone Propionate Nasal 16 Gm [place]) 1 spray NOSTRIL-B BID [facility] Last Admin: 04/09/22 10:10 Dose: 1 spray Documented By: NAYELI Guaifenesin/Codeine Phosphate (Guaifen/Codeine Sf 200/20/10ml 10 Ml Liquid) 5 ml PO Q6H PRN PRN Reason: cough Last Admin: 04/08/22 22:04 Dose: 5 ml Documented By: NARENDRA Levalbuterol HCl (Levalbuterol Hcl 1.25 Mg/0.5 Ml Vial.Neb) 1.25 mg INHALE QID PRN PRN Reason: Shortness of Breath Last Admin: 04/09/22 10:10 Dose: 1.25 mg Documented By: KAY Levalbuterol HCl (Levalbuterol Hcl 1.25 Mg/0.5 Ml Vial.Alysha) 1.25 mg INHALE RQ4H WHILE AWAKE [facility] Last Admin: 04/09/22 08:19 Dose: 1.25 mg Documented By: KVNG Lorazepam (Lorazepam 0.5 Mg Tablet) 0.5 mg PO BEDTIME PRN PRN Reason: Anxiety Last Admin: 04/09/22 02:45 Dose: 0.5 mg Documented By: NARENDRA Montelukast Sodium (Montelukast Sodium 10 Mg Tablet) 10 mg PO BEDTIME [facility] Last Admin: 04/08/22 20:52 Dose: 10 mg Documented By: NARENDRA Morphine Sulfate (Morphine Sulfate 2 Mg/Ml Cartridge) 2 mg IVPUSH Q4H PRN; Protocol PRN Reason: Shortness of Breath Last Admin: 04/09/22 01:08 Dose: 2 mg Documented By: NARENDRA Non-Formulary Medication (Umeclidinium-Vilanterol [Anoro Ellipta]) 1 each INHALE DAILY [facility] Omeprazole (Omeprazole 40 Mg Capsule.) 40 mg PO BID@0630,1630 [facility] Last Admin: 04/09/22 06:31 Dose: 40 mg Documented By: NARENDRA Comments: med ordered BID for 0630. Will not scan Ondansetron HCl (Ondansetron Hcl 4 Mg/2 Ml Vial) 4 mg IVPUSH Q8H PRN PRN Reason: Nausea and Vomiting Oxybutynin Chloride (Oxybutynin Chloride Er 5 Mg Tab.Er.24) 5 mg PO DAILY [facility] Last Admin: 04/09/22 10:09 Dose: 5 mg Documented By: NAYELI Pharmacy Consult (Consult Rx Perform Med Rec) 1 each MISCELLANE ONCE PRN PRN Reason: Consult order Polyethylene Glycol (Polyethylene Glycol 3350 17 Gm Powd.Pack) 17 gm PO DAILY PRN PRN Reason: Constipation Sodium Chloride (0.9 % Sodium Chloride Flush 3 Ml Syringe) 3 ml IVFLUSH QSHIFT [facility] Last Admin: 04/09/22 10:10 Dose: 3 ml Documented By: NAYELI Tobramycin Sulfate (Tobramycin Sulfate 80 Mg/2 Ml Vial) 300 mg INHALE Q12H [facility] Last Admin: 04/09/22 02:03 Dose: 300 mg Documented By: SIMONA Tramadol HCl (Tramadol Hcl 50 Mg Tablet) 50 mg PO BID [facility] Last Admin: 04/09/22 10:09 Dose: 50 mg Documented By: NAYELI Labs CBC & Chem 7: 04/09/22 06:28 04/09/22 06:28 Labs: Laboratory Results - last 24 hr 04/09/22 04/09/22 06:28 06:28 MCV 96.8 MCH 30.6 MCHC 31.6 RDW 18.5 H Plt Count 174 MPV 10.0 Absolute Nucleated RBC 0.030 H Nucleated RBC % (auto) 0.2 Anion Gap 16 Estim Creat Clear Calc 47.7 Estimated GFR > 60 Random Glucose 155 H Calcium 8.8 Microbiology Microbiology Results: Microbiology 04/06/22 13:12 Blood Culture - Preliminary Blood - Venous No growth after 48 hours. 04/06/22 13:06 Blood Culture - Preliminary Blood - Venous No growth after 48 hours. Assessment and Plan (1) Pseudomonas respiratory infection: Status: Acute (2) Anemia: Status: Acute (3) CAD (coronary artery disease): Status: Acute (4) Acute respiratory failure with hypoxia: Status: Acute (5) COPD (chronic obstructive pulmonary disease): Status: Acute Plan 81-year-old female with history hypertension, anemia chronic disease, atrial fibrillation anticoagulated with Eliquis, bronchiectasis, hyperlipidemia, CAD s/p CABG x4, mild aortic stenosis, chronic low back pain on tramadol, and diastolic congstive heart failure with preserved ejection fraction 50-55% admitted for COPD exacerbation with sputum culture positive for Pseudomonas and corynebacterium. #Acute hypoxic respiratory failure due to acute COPD exacerbation with tracheobronchitis hypoxia resolved, not on home oxygen Persistent productive cough, no shortness of breath -Sputum culture 03/22 positive for Pseudomonas and corynebacterium species, blood cultures x2 negative, recently finished course of Levaquin -CXR/chest CT negative for acute pneumonia, Negative for COVID-19. Continue tobramycin inhalation, DC IV steroids will place on low-dose steroids, decrease dose of Xopenex q.i.d. due to jitteriness Substitute Anoro ellipta , added cough expectorant and as needed O2 if finger oximetry below 90 # acute anemia no acute blood loss noted -likely secondary to slow GI bleed with heme-positive stool on Eliquis, also likely due to acute infection.Abd CT [facility] 03/23 without colitis, diverticulitis. Showing thickened endometrium. No other significant abnormality to explain bleeding Patient seen by Dr. Rossi from Gastroenterology he recommend EGD and colonoscopy for further eval once patient clinically stable and if family wishes to pursue invasive evaluation Case discussed with Dr. Damian there is no evidence of hemolysis, she will discuss bone marrow examination with family as outpt. Case discussed with Cardiology they agree to hold Eliquis and aspirin out portion follow-up with Cardiology for watchman's procedure H/H 7.9/24.9 on admission hematocrit improved to 30.7 # acute toxic metabolic encephalopathy Likely multifactorial due to steroids/sundowning/hypoxia, will check urinalysis, close clinical follow-up , # chronic persistent atrial fibrillation with RVR, -given 5 mg push IV diltiazem in ER, now on diltiazem increase dose to 180 mg daily , home dose 120 mg, will give additional dose of po Cardizem x1 -hold Eliquis and aspirin due to significant ecchymosis and heme-positive stool -seen by Cardiology they agree with above treatment plan and recommend outpatient follow-up with primary check writing machine operator for Watchman device in case patient cannot be placed back on Eliquis # HTN -BP stable continue diltiazem 180 mg continue to hold lisinopril # CAD s/p CABG x4 -no anginal chest pain -hold aspirin for now, seen by Cardiology no further workup recommended. # diastolic heart failure with preserved ejection fraction-stable -BNP 160.? No pleural effusions -continue home dose of furosemide # Obesity BMI greater than 33.5 DVT prophylaxis-mechanical.? Hold Eliquis Full code Patient requires continued inpatient stay due to COPD exacerbation /tachycardia need telemonitoring with med adjustment and confusion Quality Stroke Does the patient have a stroke diagnosis?: No VTE Prior VTE?: No VTE Risk Level:: Medical - moderate - high VTE Device Contraindication: Treatment Not Indicated VTE Drug Contraindication: N/A - Med Ordered
[2022-04-09] MEDS: guaiFENesin DM 200/20/10 ML 10 ML SYRUP PO ×2 (14:22→20:49)
[2022-04-09] MEDS: polyethylene glycoL 3350 17 GM POWD.PACK PO (14:23)
[2022-04-09] MEDS: dilTIAZem HCL 30 MG TABLET PO (14:28)
[2022-04-09 14:33] LABS: Haptoglobin 45 mg/dL (43-212)
[2022-04-09] MEDS: Montelukast Sodium 10 MG TABLET PO (20:49)
--- NOTE | 2022-04-09 22:00 | PC.NURSE ---
At around 10 am, patients daughter reports that patient told her a story about a fall overnight as well as elaborate accompanying details that are fantastical and apparently delusional. Patient otherwise alert and oriented this morning except for some wire frame lampshade maker forgetfulness about where she was and why she was here. She was re=oriented early and did not have any other problems about her memory or orientation status all day. The patient, on exam was found to have left lower abdominal pain that responds well to scheduled ultram. Patient also with no external signs of injury to left lower quadrant but reports she fell overnight and hit that area. MD notified and up to bedside to assess. Patient in no apparent distress at this time. Nursing cloth shearing supervisor notified.
[2022-04-10] VITALS (12 sets, daily range): BP systolic 126–145; BP diastolic 61–75; PULSE 94–125; RESP 16–20; TEMP 36.2–36.7; O2SAT 93–100
[2022-04-10] MEDS: Tobramycin Sulfate 80 MG/2 ML VIAL 300 MG INHALE ×2 (01:38→14:04)
[2022-04-10] MEDS: Benzonatate 100 MG CAPSULE 200 MG PO (05:22)
[2022-04-10] MEDS: Acetaminophen 325 MG TABLET 650 MG PO ×2 (05:22→10:58)
[2022-04-10] MEDS: Omeprazole 40 MG CAPSULE.DR PO ×2 (06:34→15:45)
[2022-04-10] MEDS: Salmeterol Xinafoate 50 MCG BLST.W.DEV 1 PUFF INHALE ×2 (07:45→19:48)
[2022-04-10] MEDS: Furosemide 20 MG TABLET PO (08:25)
[2022-04-10] MEDS: traMADoL HCL 50 MG TABLET PO ×2 (08:25→21:49)
[2022-04-10] MEDS: dilTIAZem HCL CD 180 MG CAP.ER.24H PO (08:25)
[2022-04-10] MEDS: Fluticasone Propionate Nasal 16 GM SPRAY 1 SPRAY NOSTRIL-B ×2 (08:26→22:15)
[2022-04-10] MEDS: 0.9 % Sodium Chloride Flush 3 ML SYRINGE IVFLUSH ×3 (08:26→22:21)
[2022-04-10] MEDS: guaiFENesin DM 200/20/10 ML 10 ML SYRUP PO ×3 (08:27→22:18)
[2022-04-10] MEDS: dilTIAZem HCL 60 MG TABLET PO (10:58)
[2022-04-10] MEDS: predniSONE 10 MG TABLET PO (10:58)
[2022-04-10 11:21] LABS: Appearance Urine Clear; Color Urine Yellow; Glucose Urine UA Negative (Negative); Leukocyte Esterase Urine Trace (Negative); Nitrite Urine Negative (Negative); UMIC TRIGGER UACC YES; Urine Blood Negative (Negative); Urine Ketones Negative (Negative); Urine Protein Negative (Neg-Trace)
[2022-04-10 11:35] LABS: Bacteria Urine None Seen (None Seen); RBC Urine 0-2 /HPF (0-2); Squamous Epithelial Cell Urine 0-2 /HPF (0-2); UACC Culture Trigger YES
--- NOTE | 2022-04-10 13:08 | P.PNIM_ITS ---
Subjective Subjective Date of Service: 04/11/22 Interval History: Patient more awake alert less confused upset that this morning she was sunken in her bed and the nurse did not help her but gave her a glass of water no such incident happened, this a.m. as per nursing notification, otherwise patient denies symptoms of chest pain or shortness of breath, cough is better no nausea no vomiting, tolerating diet complaining of persistent left-sided back and upper quadrant pain No fevers, no chills. Review of Systems Review of Systems: Yes all other systems are reviewed and are negative Physical Exam Vital Signs: Vital Signs: Last Vital Signs Temp 98.0 F 04/10/22 11:25 Pulse 125 H 04/10/22 11:25 Resp 20 04/10/22 11:25 BP 142/75 H 04/10/22 11:25 Pulse Ox 98 04/10/22 11:25 O2 Del Method 04/10/22 11:25 BMI result Body Mass Index 33.5 Const: Other: General resting in bed, in no acute distress.? Anicteric sclera Neck supple no JVD. CVS? regular rate rhythm, Respiratory lungs bilateral rhonchi, no respiratory distress, no rales Gastrointestinal abdomen soft, nontender, bowel sounds audible, no guarding , no rigidity. Extremities diffuse ecchymosis both upper and lower extremities, mild lower extremity pitting edema Neuro speech clear, aware of place and person Objective Data Active Medications Acetaminophen (Acetaminophen 325 Mg Tablet) 650 mg PO Q6H PRN PRN Reason: Pain, Mild (Pain Scale 1-3) Last Admin: 04/10/22 10:58 Dose: 650 mg Documented By: ROSA Benzonatate (Benzonatate 100 Mg Capsule) 200 mg PO TID PRN PRN Reason: cough Last Admin: 04/10/22 05:22 Dose: 200 mg Documented By: SHERRY Diltiazem HCl (Diltiazem Hcl Cd 240 Mg Cap.Er.Deg) 240 mg PO DAILY [facility]; Protocol Docusate Sodium (Docusate Sodium 100 Mg Capsule) 100 mg PO DAILY PRN PRN Reason: Constipation Fluticasone Propionate (Fluticasone Propionate Nasal 16 Gm [place]) 1 spray NOSTRIL-B BID [facility] Last Admin: 04/10/22 08:26 Dose: 1 spray Documented By: ROSA Furosemide (Furosemide 20 Mg Tablet) 20 mg PO DAILY [facility]; Protocol Last Admin: 04/10/22 08:25 Dose: 20 mg Documented By: ROSA Guaifenesin/Dextromethorphan (Guaifenesin Dm 200/20/10 Ml 10 Ml Syrup) 10 ml PO TID [facility] Last Admin: 04/10/22 08:27 Dose: 10 ml Documented By: ROSA Levalbuterol HCl (Levalbuterol Hcl 1.25 Mg/0.5 Ml Vial.Neb) 1.25 mg INHALE QID PRN PRN Reason: Shortness of Breath Last Admin: 04/09/22 10:10 Dose: 1.25 mg Documented By: KAY Levalbuterol HCl (Levalbuterol Hcl 1.25 Mg/0.5 Ml Vial.Neb) 1.25 mg INHALE RQID [facility] Last Admin: 04/10/22 11:10 Dose: 1.25 mg Documented By: KVNG Lorazepam (Lorazepam 0.5 Mg Tablet) 0.5 mg PO BEDTIME PRN PRN Reason: Anxiety Last Admin: 04/09/22 02:45 Dose: 0.5 mg Documented By: NARENDRA Montelukast Sodium (Montelukast Sodium 10 Mg Tablet) 10 mg PO BEDTIME [facility] Last Admin: 04/09/22 20:49 Dose: 10 mg Documented By: SHERRY Morphine Sulfate (Morphine Sulfate 2 Mg/Ml Cartridge) 2 mg IVPUSH Q4H PRN; Protocol PRN Reason: Shortness of Breath Last Admin: 04/09/22 01:08 Dose: 2 mg Documented By: NARENDRA Omeprazole (Omeprazole 40 Mg Capsule.) 40 mg PO BID@0630,1630 [facility] Last Admin: 04/10/22 06:34 Dose: 40 mg Documented By: SHERRY Ondansetron HCl (Ondansetron Hcl 4 Mg/2 Ml Vial) 4 mg IVPUSH Q8H PRN PRN Reason: Nausea and Vomiting Oxybutynin Chloride (Oxybutynin Chloride Er 5 Mg Tab.Er.24) 5 mg PO DAILY [facility] Last Admin: 04/10/22 08:25 Dose: 5 mg Documented By: ROSA Pharmacy Consult (Consult Rx Perform Med Rec) 1 each MISCELLANE ONCE PRN PRN Reason: Consult order Polyethylene Glycol (Polyethylene Glycol 3350 17 Gm Powd.Pack) 17 gm PO DAILY PRN PRN Reason: Constipation Polyethylene Glycol (Polyethylene Glycol 3350 17 Gm Powd.Pack) 17 gm PO DAILY [facility] Last Admin: 04/10/22 08:27 Dose: Not Given Documented By: ROSA Non-Admin Reason: Patient Refused Prednisone (Prednisone 10 Mg Tablet) 10 mg PO DAILY [facility] Last Admin: 04/10/22 10:58 Dose: 10 mg Documented By: ROSA Salmeterol Xinafoate (Salmeterol Xinafoate 50 Mcg Blst.W.Dev) 1 puff INHALE RBID [facility] Last Admin: 04/10/22 07:45 Dose: 1 puff Documented By: KRISHNA Sodium Chloride (0.9 % Sodium Chloride Flush 3 Ml Syringe) 3 ml IVFLUSH QSHIFT [facility] Last Admin: 04/10/22 08:26 Dose: 3 ml Documented By: ROSA Tiotropium [place] (Tiotropium [place] 18 Mcg Cap.W.Dev) 1 puff INHALE RDAILY [facility] Last Admin: 04/10/22 07:45 Dose: 1 puff Documented By: KRISHNA Tobramycin Sulfate (Tobramycin Sulfate 80 Mg/2 Ml Vial) 300 mg INHALE Q12H [facility] Last Admin: 04/10/22 01:38 Dose: 300 mg Documented By: SIMONA Tramadol HCl (Tramadol Hcl 50 Mg Tablet) 50 mg PO BID [facility] Last Admin: 04/10/22 08:25 Dose: 50 mg Documented By: ROSA Labs CBC & Chem 7: 04/09/22 06:28 04/09/22 06:28 Labs: Laboratory Results - last 24 hr 04/07/22 04/10/22 06:51 11:03 Haptoglobin 45 Urine Color Yellow Urine Appearance Clear Urine pH 5.0 Ur Specific [place] 1.010 Urine Protein Negative Urine Glucose (UA) Negative Urine Ketones Negative Urine Blood Negative Urine Nitrite Negative Ur Leukocyte Esterase Trace H Urine RBC 0-2 Urine WBC 11-20 H Ur Squamous Epith Cells 0-2 Urine Bacteria None Seen Hyaline Casts 3-5 Urine Yeast Present Assessment and Plan (1) Pseudomonas respiratory infection: Status: Acute (2) Anemia: Status: Acute (3) CAD (coronary artery disease): Status: Acute (4) Acute respiratory failure with hypoxia: Status: Acute (5) COPD (chronic obstructive pulmonary disease): Status: Acute Plan 81-year-old female with history hypertension, anemia chronic disease, atrial fibrillation anticoagulated with Eliquis, bronchiectasis, hyperlipidemia, CAD s/p CABG x4, mild aortic stenosis, chronic low back pain on tramadol, and diastolic congstive heart failure with preserved ejection fraction 50-55% admitted for COPD exacerbation with sputum culture positive for Pseudomonas and corynebacterium. #Acute hypoxic respiratory failure due to acute COPD exacerbation with tracheobronchitis hypoxia resolved, not on home oxygen Cough is improving,no shortness of breath, stable respiratory status -Sputum culture 03/22 positive for Pseudomonas and corynebacterium species, blood cultures x2 negative, recently finished course of Levaquin -CXR/chest CT negative for acute pneumonia, Negative for COVID-19. Continue tobramycin inhalation, low-dose steroids, Xopenex q.i.d. On Spiriva and Serevent and place of Anoro ellipta , continue cough expectorant and as needed O2 if finger oximetry below 90 # acute anemia no acute blood loss noted -likely secondary to slow GI bleed with heme-positive stool on Eliquis, also likely due to acute infection.Abd CT [facility] 03/23 without colitis, diverticulitis. Showing thickened endometrium. No other significant abnormality to explain bleeding Patient seen by Dr. Rossi from Gastroenterology he recommend EGD and colonoscopy for further eval once patient clinically stable and if family wishes to pursue invasive evaluation Case discussed with Dr. Damian there is no evidence of hemolysis, outpatient bone marrow examination if patient and family agrees Case discussed with Cardiology they agree to hold Eliquis and aspirin out portion follow-up with Cardiology for watchman's procedure H/H 7.9/24.9 on admission hematocrit improved to 30.7 after 1 unit of packed RBC # acute toxic metabolic encephalopathy Resolved was likely multifactorial due to steroids/sundowning/hypoxia, UA b enign, close clinical follow-up , # chronic persistent atrial fibrillation with RVR, -rapid ventricular rate on Cardizem CD 180 mg daily will increase dose to 240 mg by mouth daily blood pressure is stable give additional dose of Cardizem 60 mg x 1, continue tele monitor If ventricular rate remains elevated will discuss further treatment management with Cardiology. -hold Eliquis and aspirin due to significant ecchymosis and heme-positive stool -seen by Cardiology they recommend outpatient follow-up with primary chrome cleaner for Watchman device in case patient cannot be placed back on Andreea thelma # HTN - increase diltiazem to 240 mg ,continue to hold lisinopril # CAD s/p CABG x4 -no anginal chest pain -hold aspirin for now, seen by Cardiology no further workup recommended. # diastolic heart failure with preserved ejection fraction-stable -BNP 160.? No pleural effusions -continue home dose of furosemide # Obesity BMI greater than 33.5 # left upper quadrant/lower back pain, provide history of pain times several days on examination no ecchymosis of bruising pain worse with deep breathing likely pleuritic component will encourage incentive spirometry DVT prophylaxis-mechanical device Full code Patient requires continued inpatient stay due to COPD exacerbation /tachycardia need telemonitoring with med adjustment Quality Stroke Does the patient have a stroke diagnosis?: No VTE Prior VTE?: No VTE Risk Level:: Medical - moderate - high VTE Device Contraindication: Treatment Not Indicated VTE Drug Contraindication: N/A - Med Ordered
[2022-04-10] MEDS: Montelukast Sodium 10 MG TABLET PO (21:51)
[2022-04-11] VITALS (12 sets, daily range): BP systolic 137–165; BP diastolic 60–77; PULSE 26–122; RESP 16–20; TEMP 36.1–36.9; O2SAT 95–97
[2022-04-11] MEDS: Tobramycin Sulfate 80 MG/2 ML VIAL 300 MG INHALE ×2 (02:18→15:00)
[2022-04-11] MEDS: Omeprazole 40 MG CAPSULE.DR PO ×2 (06:05→16:31)
[2022-04-11] MEDS: predniSONE 10 MG TABLET PO (08:31)
[2022-04-11] MEDS: guaiFENesin DM 200/20/10 ML 10 ML SYRUP PO ×3 (08:31→21:33)
[2022-04-11] MEDS: Furosemide 20 MG TABLET PO (08:31)
[2022-04-11] MEDS: dilTIAZem HCL CD 240 MG CAP.ER.DEG PO (08:31)
[2022-04-11] MEDS: Fluticasone Propionate Nasal 16 GM SPRAY 1 SPRAY NOSTRIL-B ×2 (08:32→21:34)
[2022-04-11] MEDS: 0.9 % Sodium Chloride Flush 3 ML SYRINGE IVFLUSH ×3 (08:32→21:35)
[2022-04-11] MEDS: traMADoL HCL 50 MG TABLET PO ×2 (08:32→21:35)
--- NOTE | 2022-04-11 09:42 | P.PNPL_ITS ---
Subjective Subjective Date of Service: 04/11/22 Interval history: Seen and examined. Tolerating the inhaled John. Still complains of chest congestion. She is off her Eliquis due to the GI bleed. C/O left sided pleuritic CP. Will request a CXR. Objective Data Labs CBC & Chem 7: 04/09/22 06:28 04/09/22 06:28 Labs: Laboratory Results - last 24 hr 04/10/22 11:03 Urine Color Yellow Urine Appearance Clear Urine pH 5.0 Ur Specific [place] 1.010 Urine Protein Negative Urine Glucose (UA) Negative Urine Ketones Negative Urine Blood Negative Urine Nitrite Negative Ur Leukocyte Esterase Trace H Urine RBC 0-2 Urine WBC 11-20 H Ur Squamous Epith Cells 0-2 Urine Bacteria None Seen Hyaline Casts 3-5 Urine Yeast Present Microbiology Microbiology Results: Microbiology 04/06/22 13:12 Blood - Venous Blood Culture - Preliminary No growth after 48 hours. 04/06/22 13:06 Blood - Venous Blood Culture - Preliminary No growth after 48 hours. Review of Systems Review of Systems General: No fevers, malaise, unintentional weight loss HEENT: No significant epistaxis, rhinorrhea, nasal congestion, sore throat Cardiovascular: +chest pain, palpitations, or leg edema Respiratory: +shortness of breath, + wheezing, +cough +CP GI: No abdominal pain, nausea, vomiting, diarrhea, constipation, melena, hematochezia : No dysuria, hematuria, increased urinary frequency Heme: +significant ecchymosis. MSK: +chronic low back pain Neuro: No headaches, weakness, paresthesias Skin: No rashes or lesions Physical Exam Vital Signs: Vital Signs: Last Vital Signs Temp 98.2 F 04/11/22 07:26 Pulse 121 H 04/11/22 08:43 Resp 18 04/11/22 07:42 BP 150/60 H 04/11/22 07:26 Pulse Ox 97 04/11/22 07:26 O2 Del Method 04/11/22 07:26 BMI result Body Mass Index 33.5 Const: Other: General resting in bed, in no acute distress.? Anicteric sclera Neck supple no JVD. CVS? regular rate rhythm, Respiratory lungs bilateral rhonchi, no respiratory distress, no rales Gastrointestinal abdomen soft, nontender, bowel sounds audible, no guarding , no rigidity. Extremities diffuse ecchymosis both upper and lower extremities, mild lower extremity pitting edema Neuro speech clear, aware of place and person Procedures Date of Service Date of Service: 04/11/22 Assessment and Plan Assessment and plan (1) Pseudomonas respiratory infection: Status: Acute (2) COPD (chronic obstructive pulmonary disease): Status: Acute (3) Bronchiectasis: Status: Acute (4) GI bleed: Status: Acute Plan Continue inhaled John 28 days on, then 28 days off xopenex nebs continue Anoro CPT with [facility] CXR today Time Spent With Patient Time: Total time spent is greater than 50% in coordination of care (as documented) at patient's floor/unit and/or counseling patient: Progress Note: Quality Stroke Does the patient have a stroke diagnosis?: No
--- NOTE | 2022-04-11 14:33 | MHC.CLN ---
RE: CONSULT FOR SKIN NEW STAGE 2 PRESSURE INJURY NOTED PO INTAKE 75-100% WILL TRIAL ENSURE BID TO INCREASE KCLAS AND PROMOTE WOUND HEALING SUPP TO PROVIDE 700KCALS, 40G PROTEIN FULL ASSESSMENT TO FOLLOW
--- NOTE | 2022-04-11 15:19 | HO.PM.IMPN ---
Subjective Subjective Date of Service: 04/11/22 Interval History: Awake alert answering questions appropriately complaining of persistent left upper quadrant and left upper back pain worse with deep breathing, no fevers no chills no worsening cough, tolerating diet, no nausea no vomiting no abdominal pain or diarrhea refusing to take Serevent and César wants to use her Anoro inh. 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 resting i n bed, in no acute distress.? Anicte rosi sclera Neck alva pple no JVD. CVS? regular rate rhyth m, Respiratory summer gs bilateral rhonc hi, diminished at bases, no respirat ory distress, no r ales Gastrointesti nal abdomen soft, nontender, bowel s ounds audible, no guarding , no rigi dity. No tendernes s to palpation lef t upper quadrant E xtremities diffuse ecchymosis both u pper and lower ext remities ,no edema Neuro speech cristina r, nonfocal Objective Data Active Medications Acetaminophen (Acetaminophen 325 Mg Tablet) 650 mg PO Q6H PRN PRN Reason: Pain, Mild (Pain Scale 1-3) Last Admin: 04/10/22 10:58 Dose: 650 mg Documented By: ROSA Benzonatate (Benzonatate 100 Mg Capsule) 200 mg PO TID PRN PRN Reason: cough Last Admin: 04/10/22 05:22 Dose: 200 mg Documented By: SHERRY Diltiazem HCl (Diltiazem Hcl Cd 240 Mg Cap.Er.Deg) 240 mg PO DAILY [facility]; Protocol Last Admin: 04/11/22 08:31 Dose: 240 mg Documented By: COTEMA Docusate Sodium (Docusate Sodium 100 Mg Capsule) 100 mg PO DAILY PRN PRN Reason: Constipation Fluticasone Propionate (Fluticasone Propionate Nasal 16 Gm [place]) 1 spray NOSTRIL-B BID [facility] Last Admin: 04/11/22 08:32 Dose: 1 spray Documented By: SASCHA Furosemide (Furosemide 20 Mg Tablet) 20 mg PO DAILY [facility]; Protocol Last Admin: 04/11/22 08:31 Dose: 20 mg Documented By: SASCHA Guaifenesin/Dextromethorphan (Guaifenesin Dm 200/20/10 Ml 10 Ml Syrup) 10 ml PO TID [facility] Last Admin: 04/11/22 08:31 Dose: 10 ml Documented By: SASCHA Levalbuterol HCl (Levalbuterol Hcl 1.25 Mg/0.5 Ml Vial.Neb) 1.25 mg INHALE QID PRN PRN Reason: Shortness of Breath Last Admin: 04/09/22 10:10 Dose: 1.25 mg Documented By: KAY Levalbuterol HCl (Levalbuterol Hcl 1.25 Mg/0.5 Ml Vial.Neb) 1.25 mg INHALE RQID [facility] Last Admin: 04/11/22 14:59 Dose: 1.25 mg Documented By: KVNG Lorazepam (Lorazepam 0.5 Mg Tablet) 0.5 mg PO BEDTIME PRN PRN Reason: Anxiety Last Admin: 04/09/22 02:45 Dose: 0.5 mg Documented By: NARENDRA Montelukast Sodium (Montelukast Sodium 10 Mg Tablet) 10 mg PO BEDTIME [facility] Last Admin: 04/10/22 21:51 Dose: 10 mg Documented By: CURLY Morphine Sulfate (Morphine Sulfate 2 Mg/Ml Cartridge) 2 mg IVPUSH Q4H PRN; Protocol PRN Reason: Shortness of Breath Last Admin: 04/09/22 01:08 Dose: 2 mg Documented By: NARENDRA Omeprazole (Omeprazole 40 Mg Capsule.) 40 mg PO BID@0630,1630 [facility] Last Admin: 04/11/22 06:05 Dose: 40 mg Documented By: CURLY Ondansetron HCl (Ondansetron Hcl 4 Mg/2 Ml Vial) 4 mg IVPUSH Q8H PRN PRN Reason: Nausea and Vomiting Oxybutynin Chloride (Oxybutynin Chloride Er 5 Mg Tab.Er.24) 5 mg PO DAILY [facility] Last Admin: 04/11/22 08:32 Dose: 5 mg Documented By: SASCHA Pharmacy Consult (Consult Rx Perform Med Rec) 1 each MISCELLANE ONCE PRN PRN Reason: Consult order Polyethylene Glycol (Polyethylene Glycol 3350 17 Gm Powd.Pack) 17 gm PO DAILY PRN PRN Reason: Constipation Polyethylene Glycol (Polyethylene Glycol 3350 17 Gm Powd.Pack) 17 gm PO DAILY [facility] Last Admin: 04/11/22 08:36 Dose: Not Given Documented By: SASCHA Non-Admin Reason: Patient Refused Prednisone (Prednisone 10 Mg Tablet) 10 mg PO DAILY [facility] Last Admin: 04/11/22 08:31 Dose: 10 mg Documented By: SASCHA Salmeterol Xinafoate (Salmeterol Xinafoate 50 Mcg Blst.W.Dev) 1 puff INHALE RBID [facility] Last Admin: 04/11/22 07:51 Dose: Not Given Documented By: KVNG Non-Admin Reason: Patient Refused Sodium Chloride (0.9 % Sodium Chloride Flush 3 Ml Syringe) 3 ml IVFLUSH QSHIFT [facility] Last Admin: 04/11/22 08:32 Dose: 3 ml Documented By: SASCHA Tiotropium [place] (Tiotropium [place] 18 Mcg Cap.W.Dev) 1 puff INHALE RDAILY [facility] Last Admin: 04/11/22 07:50 Dose: Not Given Documented By: KVNG Non-Admin Reason: Patient Refused Tobramycin Sulfate (Tobramycin Sulfate 80 Mg/2 Ml Vial) 300 mg INHALE Q12H [facility] Last Admin: 04/11/22 15:00 Dose: 300 mg Documented By: KVNG Tramadol HCl (Tramadol Hcl 50 Mg Tablet) 50 mg PO BID [facility] Last Admin: 04/11/22 08:32 Dose: 50 mg Documented By: SASCHA Labs CBC & Chem 7: 04/09/22 06:28 04/09/22 06:28 Microbiology Microbiology Results: Microbiology 04/06/22 13:12 Blood Culture - Final Blood - Venous No growth after 5 days. 04/06/22 13:06 Blood Culture - Final Blood - Venous No growth after 5 days. 04/10/22 Unknown Urine Culture - Preliminary Urine Catheterized - Straight Catheter No growth to date. Assessment and Plan (1) Pseudomonas respiratory infection: Status: Acute (2) Anemia: Status: Acute (3) CAD (coronary artery disease): Status: Acute (4) Acute respiratory failure with hypoxia: Status: Acute (5) COPD (chronic obstructive pulmonary disease): Status: Acute Plan 81-year-old female with history hypertension, anemia chronic disease, atrial fibrillation anticoagulated with Eliquis, bronchiectasis, hyperlipidemia, CAD s/p CABG x4, mild aortic stenosis, chronic low back pain on tramadol, and diastolic congstive heart failure with preserved ejection fraction 50-55% admitted for COPD exacerbation with sputum culture positive for Pseudomonas and corynebacterium. #Acute hypoxic respiratory failure due to acute COPD exacerbation with tracheobronchitis hypoxia resolved, not on home oxygen Cough is improving,no shortness of breath, stable respiratory status -Sputum culture 03/22 positive for Pseudomonas and corynebacterium species, blood cultures x2 negative, recently finished course of Levaquin as outpatient -CXR/chest CT negative for acute pneumonia, Negative for COVID-19. Repeat chest x-ray today due to left sided chest pain showed increasing atelectasis or small infiltrate in the left lower lobe and small left pleural effusion Continue tobramycin inhalation, low-dose steroids, Xopenex q.i.d. On Spiriva and Serevent in place of Anoro ellipta , family brought anoro from home but unable to find it patient refusing to use Spiriva and Serevent , spoke with Pharmacy they do not have the medicine, nurse did not find it in the room seen by Dr. Tesfaye he recommend chest PT with [facility], and recommend to continue inhaled tobramycin 28 days on than 28 days off, we discussed chest x-ray findings with him. # acute anemia no acute blood loss noted -likely secondary to slow GI bleed with heme-positive stool on Eliquis, also likely due to acute infection.Abd CT [facility] 03/23 without colitis, diverticulitis. Showing thickened endometrium. No other significant abnormality to explain bleeding Patient seen by Dr. Rossi from Gastroenterology he recommend EGD and colonoscopy for further eval once patient clinically stable and if family wishes to pursue invasive evaluation Case discussed with Dr. Damian there is no evidence of hemolysis, outpatient bone marrow examination if patient and family agrees Case discussed with Cardiology they agree to hold Eliquis and aspirin out portion follow-up with Cardiology for watchman's procedure H/H 7.9/24.9 on admission hematocrit improved to 30.7 after 1 unit of packed RBC # acute toxic metabolic encephalopathy Resolved was likely multifactorial due to steroids/sundowning/hypoxia, UA benign, close clinical follow-up , # chronic persistent atrial fibrillation with RVR, -ventricular rate improved dose of Cardizem cd increased to Cardizem CD 240 mg, if noted to have recurrent tachycardia will discuss with Cardiology hold Eliquis and aspirin due to significant ecchymosis and heme-positive stool -seen by Cardiology they recommend outpatient follow-up with primary senior microsoft net developer for Watchman device in case patient cannot be placed back on Eliquis # HTN - increase diltiazem to 240 mg , BP stable, continue to hold lisinopril # CAD s/p CABG x4 -no anginal chest pain -hold aspirin for now, seen by Cardiology no further workup recommended. # diastolic heart failure with preserved ejection fraction-stable -BNP 160.? small new left pleural effusion likely due to atelectasis -continue home dose of furosemide # Obesity BMI greater than 33.5 # left upper quadrant/lower back pain, provide history of pain x several days on examination no ecchymosis no bruising pain worse with deep breathing likely pleuritic component will encourage incentive spirometry DVT prophylaxis-mechanical device Full code Patient requires continued inpatient stay due to COPD exacerbation /tachycardia need telemonitoring with med adjustment /physical therapy recommend short-term rehab Quality Stroke Does the patient have a stroke diagnosis?: No VTE Prior VTE?: No VTE Risk Level:: Medical - moderate - high VTE Device Contraindication: Treatment Not Indicated VTE Drug Contraindication: N/A - Med Ordered
--- NOTE | 2022-04-11 15:20 | MHC.CM.PN ---
Addendum entered by Lula Hall 04/12/22 15:08: Patient is discharged today. She refused to return to [facility]. Home services have been arranged. Her homecare preferrence is [facility]. The referral was sent. DP home with [facility]. Patient has arranged for family transport home. T/W spoke with the patient spouse re DP. He was in agreement that she go home. [place] were requested from Mr Esqueda. He stated that the front door id open. No khanna needed to enter the home. Original Note: Female 81 DX AFIB RVR Anemia Hypoxia DP resume [facility]. Dtr or son-in-law will transport home. Patient lives with family members providing transport.
[2022-04-11] MEDS: Ketorolac Tromethamine 15 MG/ML VIAL IVPUSH (21:33)
[2022-04-11] MEDS: Montelukast Sodium 10 MG TABLET PO (21:34)
[2022-04-12] VITALS (11 sets, daily range): BP systolic 127–163; BP diastolic 64–76; PULSE 68–103; RESP 14–20; TEMP 36.1–37.2; O2SAT 93–99; BMI 33.5
[2022-04-12] MEDS: Omeprazole 40 MG CAPSULE.DR PO ×2 (06:25→17:12)
[2022-04-12] MEDS: 0.9 % Sodium Chloride Flush 3 ML SYRINGE IVFLUSH ×3 (08:25→20:45)
[2022-04-12] MEDS: guaiFENesin DM 200/20/10 ML 10 ML SYRUP PO ×3 (08:25→20:51)
[2022-04-12] MEDS: Ketorolac Tromethamine 15 MG/ML VIAL IVPUSH ×3 (08:25→20:43)
[2022-04-12] MEDS: dilTIAZem HCL CD 240 MG CAP.ER.DEG PO (08:26)
[2022-04-12] MEDS: traMADoL HCL 50 MG TABLET PO ×2 (08:27→20:44)
[2022-04-12] MEDS: Furosemide 20 MG TABLET PO (08:27)
[2022-04-12] MEDS: predniSONE 10 MG TABLET PO (08:28)
--- NOTE | 2022-04-12 09:48 | P.PNPL_ITS ---
Subjective Subjective Date of Service: 04/12/22 Interval history: The the patient was seen on exam. Overall she feels better. She did have an x- ray demonstrating some atelectasis or small opacity in the left lower lobe area. She is going to work on deep breathing. She is already in the inhaled SHY now for about 2-3 days. Her white counts normal she is not febrile. Clinically the patient is doing better today. Objective Data Labs CBC & Chem 7: 04/09/22 06:28 04/09/22 06:28 Microbiology Microbiology Results: Microbiology 04/10/22 Unknown Urine Catheterized - Straight Catheter Urine Culture - Preliminary Culture in progress. 04/06/22 13:12 Blood - Venous Blood Culture - Final No growth after 5 days. 04/06/22 13:06 Blood - Venous Blood Culture - Final No growth after 5 days. Review of Systems Review of Systems General: No fevers, malaise, unintentional weight loss HEENT: No significant epistaxis, rhinorrhea, nasal congestion, sore throat Cardiovascular: -chest pain, palpitations, or leg edema Respiratory: +shortness of breath, + wheezing, +cough -CP GI: No abdominal pain, nausea, vomiting, diarrhea, constipation, melena, hematochezia : No dysuria, hematuria, increased urinary frequency Heme: +significant ecchymosis. MSK: +chronic low back pain Neuro: No headaches, weakness, paresthesias Skin: No rashes or lesions Physical Exam Vital Signs: Vital Signs: Last Vital Signs Temp 97.5 F 04/12/22 07:05 Pulse 89 04/12/22 08:02 Resp 18 04/12/22 08:02 BP 154/69 H 04/12/22 07:05 Pulse Ox 95 04/12/22 07:05 O2 Del Method 04/12/22 07:05 O2 Flow Rate 2 04/12/22 03:19 FiO2 97 04/11/22 16:00 BMI result Body Mass Index 33.5 Const: Other: General resting in bed, in no acute distress.? Anicteric sclera Neck supple no JVD. CVS? regular rate rhythm, Respiratory lungs bilateral rhonchi, no respiratory distress, no rales Gastrointestinal abdomen soft, nontender, bowel sounds audible, no guarding , no rigidity. Extremities diffuse ecchymosis both upper and lower extremities, mild lower extremity pitting edema Neuro speech clear, aware of place and person Procedures Date of Service Date of Service: 04/12/22 Assessment and Plan Assessment and plan (1) Pseudomonas respiratory infection: Status: Acute (2) COPD (chronic obstructive pulmonary disease): Status: Acute (3) Bronchiectasis: Status: Acute (4) GI bleed: Status: Acute Plan Continue inhaled Shy 28 days on, then 28 days off xopenex nebs continue Anoro prednisone taper to 10mg until she follows up with pulmonary CPT with [facility] Will need f/u with outpt pulmonary in 2 weeks Time Spent With Patient Time: Total time spent is greater than 50% in coordination of care (as documented) at patient's floor/unit and/or counseling patient: Progress Note: Quality Stroke Does the patient have a stroke diagnosis?: No
[2022-04-12] MEDS: Fluticasone Propionate Nasal 16 GM SPRAY 1 SPRAY NOSTRIL-B ×2 (10:00→20:43)
[2022-04-12] MEDS: Tobramycin Sulfate 80 MG/2 ML VIAL 300 MG INHALE (15:11)
--- NOTE | 2022-04-12 15:34 | P.PNIM_ITS ---
Subjective Subjective Date of Service: 04/12/22 Interval History: no fever dyspnea and cough improving Review of Systems Review of Systems: Yes all other systems are reviewed and are negative Physical Exam Vital Signs: Vital Signs: Last Vital Signs Temp 97.4 F 04/12/22 11:12 Pulse 79 04/12/22 15:12 Resp 18 04/12/22 15:12 BP 160/75 H 04/12/22 11:12 Pulse Ox 95 04/12/22 11:12 O2 Del Method 04/12/22 11:12 O2 Flow Rate 2 04/12/22 03:19 FiO2 97 04/11/22 16:00 BMI result Body Mass Index 33.5 Gen: in no acute distress HEENT: sclera anicteric, moist mucus membranes Neck: supple Lungs: bilateral inspiratory rhonchi Heart: irregular, rapid, no murmurs Abd: soft, non-tender, non-distended Ext: no edema Skin: warm/well-perfused Neuro: alert and oriented x3, no focal findings Psych: appropriate affect Objective Data Active Medications Acetaminophen (Acetaminophen 325 Mg Tablet) 650 mg PO Q6H PRN PRN Reason: Pain, Mild (Pain Scale 1-3) Last Admin: 04/10/22 10:58 Dose: 650 mg Documented By: ROSA Benzonatate (Benzonatate 100 Mg Capsule) 200 mg PO TID PRN PRN Reason: cough Last Admin: 04/10/22 05:22 Dose: 200 mg Documented By: SHERRY Diltiazem HCl (Diltiazem Hcl Cd 240 Mg Cap.Er.Deg) 240 mg PO DAILY [facility]; Protocol Last Admin: 04/12/22 08:26 Dose: 240 mg Documented By: RADHIKA Docusate Sodium (Docusate Sodium 100 Mg Capsule) 100 mg PO DAILY PRN PRN Reason: Constipation Fluticasone Propionate (Fluticasone Propionate Nasal 16 Gm [place]) 1 spray NOSTRIL-B BID [facility] Last Admin: 04/12/22 10:00 Dose: 1 spray Documented By: RADHIKA Furosemide (Furosemide 20 Mg Tablet) 20 mg PO DAILY [facility]; Protocol Last Admin: 04/12/22 08:27 Dose: 20 mg Documented By: RADHIKA Guaifenesin/Dextromethorphan (Guaifenesin Dm 200/20/10 Ml 10 Ml Syrup) 10 ml PO TID [facility] Last Admin: 04/12/22 14:51 Dose: 10 ml Documented By: RADHIKA Ketorolac Tromethamine (Ketorolac Tromethamine 15 Mg/Ml Vial) 15 mg IVPUSH TID [facility] Stop: 04/13/22 15:01 Last Admin: 04/12/22 14:51 Dose: 15 mg Documented By: RADHIKA Levalbuterol HCl (Levalbuterol Hcl 1.25 Mg/0.5 Ml Vial.Neb) 1.25 mg INHALE QID PRN PRN Reason: Shortness of Breath Last Admin: 04/09/22 10:10 Dose: 1.25 mg Documented By: KAY Levalbuterol HCl (Levalbuterol Hcl 1.25 Mg/0.5 Ml Vial.Neb) 1.25 mg INHALE RQID [facility] Last Admin: 04/12/22 15:11 Dose: 1.25 mg Documented By: KRISHNA Lorazepam (Lorazepam 0.5 Mg Tablet) 0.5 mg PO BEDTIME PRN PRN Reason: Anxiety Last Admin: 04/09/22 02:45 Dose: 0.5 mg Documented By: NARENDRA Montelukast Sodium (Montelukast Sodium 10 Mg Tablet) 10 mg PO BEDTIME [facility] Last Admin: 04/11/22 21:34 Dose: 10 mg Documented By: FREDY Omeprazole (Omeprazole 40 Mg Capsule.Dr) 40 mg PO BID@0630,1630 [facility] Last Admin: 04/12/22 06:25 Dose: 40 mg Documented By: FREDY Ondansetron HCl (Ondansetron Hcl 4 Mg/2 Ml Vial) 4 mg IVPUSH Q8H PRN PRN Reason: Nausea and Vomiting Oxybutynin Chloride (Oxybutynin Chloride Er 5 Mg Tab.Er.24) 5 mg PO DAILY [facility] Last Admin: 04/12/22 08:44 Dose: 5 mg Documented By: RADHIKA Pharmacy Consult (Consult Rx Perform Med Rec) 1 each MISCELLANE ONCE PRN PRN Reason: Consult order Polyethylene Glycol (Polyethylene Glycol 3350 17 Gm Powd.Pack) 17 gm PO DAILY PRN PRN Reason: Constipation Polyethylene Glycol (Polyethylene Glycol 3350 17 Gm Powd.Pack) 17 gm PO DAILY [facility] Last Admin: 04/12/22 08:29 Dose: Not Given Documented By: RADHIKA Non-Admin Reason: Patient Refused Prednisone (Prednisone 10 Mg Tablet) 10 mg PO DAILY [facility] Last Admin: 04/12/22 08:28 Dose: 10 mg Documented By: RADHIKA Salmeterol Xinafoate (Salmeterol Xinafoate 50 Mcg Blst.W.Dev) 1 puff INHALE RBID [facility] Last Admin: 04/12/22 07:56 Dose: Not Given Documented By: JOSE Non-Admin Reason: pt refused Sodium Chloride (0.9 % Sodium Chloride Flush 3 Ml Syringe) 3 ml IVFLUSH QSHIFT [facility] Last Admin: 04/12/22 14:53 Dose: 3 ml Documented By: RADHIKA Tiotropium [place] (Tiotropium [place] 18 Mcg Cap.W.Dev) 1 puff INHALE RDAILY [facility] Last Admin: 04/12/22 07:56 Dose: Not Given Documented By: JOSE Non-Admin Reason: pt refused Tobramycin Sulfate (Tobramycin Sulfate 80 Mg/2 Ml Vial) 300 mg INHALE Q12H [facility] Last Admin: 04/12/22 15:11 Dose: 300 mg Documented By: KRISHNA Tramadol HCl (Tramadol Hcl 50 Mg Tablet) 50 mg PO BID [facility] Last Admin: 04/12/22 08:27 Dose: 50 mg Documented By: RADHIKA Labs CBC & Chem 7: 04/09/22 06:28 04/09/22 06:28 Microbiology Microbiology Results: Microbiology 04/10/22 Unknown Urine Culture - Preliminary Urine Catheterized - Straight Catheter Culture in progress. 04/06/22 13:12 Blood Culture - Final Blood - Venous No growth after 5 days. 04/06/22 13:06 Blood Culture - Final Blood - Venous No growth after 5 days. Assessment and Plan (1) Pseudomonas respiratory infection: Status: Acute (2) Anemia: Status: Acute (3) CAD (coronary artery disease): Status: Acute (4) Acute respiratory failure with hypoxia: Status: Acute (5) COPD (chronic obstructive pulmonary disease): Status: Acute Plan d#7 81yo F with bronchiectasis, HTN, ACD, AF on apixaban, HLD, CAD s/p 4v CABG, mild aortic stenosis, chronic low back pain on tramadol, diastolic CHF admitted with COPD exacerbation, sputum culture positive for Pseudomonas # bronchiectasis # COPD exacerbation # acute hypoxic resp failure - weaned off O2. respiratory status improving. recently finished levofloxacin course as outpt. continue inhaled tobramycin 28 days on then 28 days off. cont inue home inhalers. continue home dose prednisone 10 mg/d. discussed with Pulmonology # acute anemia - likely slow GI bleed with heme-positive stool, on apixaban. CT A/P [facility] 03/23 without colitis or diverticulitis; thickened endometrium - per GI- EGD + C-scope once pt clinically stable and if wishes to pursue invasive evluation - per Heme- no hemolysis, outpt bone marrow examination if pt wishes to pursue - per Cardiology- hold apiaxaban + ASA- outpt f/u for Watchman's procedure - H+H improved appropriately after 1u pRBCs # acute toxic-metabolic encephalopathy - resolved, was likely due to steroids/sundowning/hypoxia # acute toxic metabolic encephalopathy Resolved was likely multifactorial due to steroids/sundowning/hypoxia, UA benign, close clinical follow-up , # chronic persistent AF - increased diltiazem dose to 240 mg CD daily - hold aspirin + apixaban due to FOBT+ anemia as above; outpt f/u with safety engineer pressure vessels to consider Watchman device # HTN - continue diltiazem; lisinopril held # CAD s/p CABG - ASA held due to FOBT+ # chronic HFpEF - continue furosemide # VTE ppx: SCDs # dispo: recommended for STR by PT In my clinical judgment, the patient requires continued inpatient hospitalization for the following reasons: COPD exacerbation, rapid AF Quality Stroke Does the patient have a stroke diagnosis?: No VTE Prior VTE?: No VTE Risk Level:: Medical - moderate - high VTE Device Contraindication: Treatment Not Indicated VTE Drug Contraindication: N/A - Med Ordered
[2022-04-12] MEDS: Montelukast Sodium 10 MG TABLET PO (20:44)
[2022-04-13] VITALS (9 sets, daily range): BP systolic 131–169; BP diastolic 60–77; PULSE 77–98; RESP 16–20; TEMP 36.1–36.9; O2SAT 92–98
[2022-04-13] MEDS: Tobramycin Sulfate 80 MG/2 ML VIAL 300 MG INHALE ×2 (04:29→16:02)
[2022-04-13] MEDS: Omeprazole 40 MG CAPSULE.DR PO ×2 (06:11→16:46)
[2022-04-13] MEDS: Ketorolac Tromethamine 15 MG/ML VIAL IVPUSH ×2 (07:45→15:38)
[2022-04-13] MEDS: 0.9 % Sodium Chloride Flush 3 ML SYRINGE IVFLUSH ×3 (07:49→21:40)
[2022-04-13] MEDS: Fluticasone Propionate Nasal 16 GM SPRAY 1 SPRAY NOSTRIL-B ×2 (07:49→21:38)
[2022-04-13] MEDS: guaiFENesin DM 200/20/10 ML 10 ML SYRUP PO ×3 (07:50→21:38)
[2022-04-13] MEDS: dilTIAZem HCL CD 240 MG CAP.ER.DEG PO (07:50)
[2022-04-13] MEDS: lisinopriL 2.5 MG TABLET PO (07:50)
[2022-04-13] MEDS: predniSONE 10 MG TABLET PO (07:51)
[2022-04-13] MEDS: Furosemide 20 MG TABLET PO (07:51)
[2022-04-13] MEDS: traMADoL HCL 50 MG TABLET PO ×2 (07:51→21:38)
--- NOTE | 2022-04-13 12:05 | P.PNIM_ITS ---
Subjective Subjective Date of Service: 04/13/22 Interval History: coughing up sputum dyspnea improved AF, rate 110s this AM but now in 80s Review of Systems Review of Systems: Yes all other systems are reviewed and are negative Physical Exam Vital Signs: Vital Signs: Last Vital Signs Temp 98.0 F 04/13/22 11:07 Pulse 83 04/13/22 11:07 Resp 16 04/13/22 11:07 BP 131/61 04/13/22 11:07 Pulse Ox 97 04/13/22 11:07 O2 Del Method 04/13/22 11:07 O2 Flow Rate 2 04/12/22 03:19 FiO2 97 04/11/22 16:00 BMI result Body Mass Index 33.5 Gen: in no acute distress HEENT: sclera anicteric, moist mucus membranes Neck: supple Lungs: bilateral inspiratory rhonchi Heart: irregular, no murmurs Abd: soft, non-tender, non-distended Ext: no edema Skin: warm/well-perfused Neuro: alert and oriented x3, no focal findings Psych: appropriate affect Objective Data Active Medications Acetaminophen (Acetaminophen 325 Mg Tablet) 650 mg PO Q6H PRN PRN Reason: Pain, Mild (Pain Scale 1-3) Last Admin: 04/10/22 10:58 Dose: 650 mg Documented By: ROSA Benzonatate (Benzonatate 100 Mg Capsule) 200 mg PO TID PRN PRN Reason: cough Last Admin: 04/10/22 05:22 Dose: 200 mg Documented By: SHERRY Diltiazem HCl (Diltiazem Hcl Cd 240 Mg Cap.Er.Deg) 240 mg PO DAILY [facility]; Protocol Last Admin: 04/13/22 07:50 Dose: 240 mg Documented By: RADHIKA Docusate Sodium (Docusate Sodium 100 Mg Capsule) 100 mg PO DAILY PRN PRN Reason: Constipation Fluticasone Propionate (Fluticasone Propionate Nasal 16 Gm [place]) 1 spray NOSTRIL-B BID [facility] Last Admin: 04/13/22 07:49 Dose: 1 spray Documented By: RADHIKA Furosemide (Furosemide 20 Mg Tablet) 20 mg PO DAILY [facility]; Protocol Last Admin: 04/13/22 07:51 Dose: 20 mg Documented By: RADHIKA Guaifenesin/Dextromethorphan (Guaifenesin Dm 200/20/10 Ml 10 Ml Syrup) 10 ml PO TID [facility] Last Admin: 04/13/22 07:50 Dose: 10 ml Documented By: RADHIKA Ketorolac Tromethamine (Ketorolac Tromethamine 15 Mg/Ml Vial) 15 mg IVPUSH TID [facility] Stop: 04/13/22 15:01 Last Admin: 04/13/22 07:45 Dose: 15 mg Documented By: RADHIKA Levalbuterol HCl (Levalbuterol Hcl 1.25 Mg/0.5 Ml Vial.Neb) 1.25 mg INHALE QID PRN PRN Reason: Shortness of Breath Last Admin: 04/09/22 10:10 Dose: 1.25 mg Documented By: KAY Levalbuterol HCl (Levalbuterol Hcl 1.25 Mg/0.5 Ml Vial.Neb) 1.25 mg INHALE RQID [facility] Last Admin: 04/13/22 11:51 Dose: Not Given Documented By: KRISHNA Non-Admin Reason: Patient Asleep Lisinopril (Lisinopril 2.5 Mg Tablet) 2.5 mg PO DAILY [facility]; Protocol Last Admin: 04/13/22 07:50 Dose: 2.5 mg Documented By: RADHIKA Lorazepam (Lorazepam 0.5 Mg Tablet) 0.5 mg PO BEDTIME PRN PRN Reason: Anxiety Last Admin: 04/09/22 02:45 Dose: 0.5 mg Documented By: NARENDRA Montelukast Sodium (Montelukast Sodium 10 Mg Tablet) 10 mg PO BEDTIME [facility] Last Admin: 04/12/22 20:44 Dose: 10 mg Documented By: FREDY Omeprazole (Omeprazole 40 Mg Capsule.Dr) 40 mg PO BID@0630,1630 [facility] Last Admin: 04/13/22 06:11 Dose: 40 mg Documented By: FREDY Ondansetron HCl (Ondansetron Hcl 4 Mg/2 Ml Vial) 4 mg IVPUSH Q8H PRN PRN Reason: Nausea and Vomiting Oxybutynin Chloride (Oxybutynin Chloride Er 5 Mg Tab.Er.24) 5 mg PO DAILY [facility] Last Admin: 04/13/22 07:50 Dose: 5 mg Documented By: RADHIKA Pharmacy Consult (Consult Rx Perform Med Rec) 1 each MISCELLANE ONCE PRN PRN Reason: Consult order Polyethylene Glycol (Polyethylene Glycol 3350 17 Gm Powd.Pack) 17 gm PO DAILY PRN PRN Reason: Constipation Polyethylene Glycol (Polyethylene Glycol 3350 17 Gm Powd.Pack) 17 gm PO DAILY [facility] Last Admin: 04/13/22 08:00 Dose: Not Given Documented By: RADHIKA Non-Admin Reason: Patient Refused Prednisone (Prednisone 10 Mg Tablet) 10 mg PO DAILY [facility] Last Admin: 04/13/22 07:51 Dose: 10 mg Documented By: RADHIKA Salmeterol Xinafoate (Salmeterol Xinafoate 50 Mcg Blst.W.Dev) 1 puff INHALE RBID [facility] Last Admin: 04/13/22 08:03 Dose: Not Given Documented By: KRISHNA Non-Admin Reason: Patient Refused Sodium Chloride (0.9 % Sodium Chloride Flush 3 Ml Syringe) 3 ml IVFLUSH QSHIFT [facility] Last Admin: 04/13/22 07:49 Dose: 3 ml Documented By: RADHIKA Tiotropium [place] (Tiotropium [place] 18 Mcg Cap.W.Dev) 1 puff INHALE RDAILY [facility] Last Admin: 04/13/22 08:03 Dose: Not Given Documented By: KRISHNA Non-Admin Reason: Patient Refused Tobramycin Sulfate (Tobramycin Sulfate 80 Mg/2 Ml Vial) 300 mg INHALE Q12H [facility] Last Admin: 04/13/22 04:29 Dose: 300 mg Documented By: SIMONA Tramadol HCl (Tramadol Hcl 50 Mg Tablet) 50 mg PO BID [facility] Last Admin: 04/13/22 07:51 Dose: 50 mg Documented By: RADHIKA Labs CBC & Chem 7: 04/09/22 06:28 04/09/22 06:28 Microbiology Microbiology Results: Microbiology 04/10/22 Unknown Urine Culture - Preliminary Urine Catheterized - Straight Catheter Culture in progress. Assessment and Plan (1) Pseudomonas respiratory infection: Status: Acute (2) Anemia: Status: Acute (3) CAD (coronary artery disease): Status: Acute (4) Acute respiratory failure with hypoxia: Status: Acute (5) COPD (chronic obstructive pulmonary disease): Status: Acute Plan d#8 81yo F with bronchiectasis, HTN, ACD, AF on apixaban, HLD, CAD s/p 4v CABG, mild aortic stenosis, chronic low back pain on tramadol, diastolic CHF admitted with COPD exacerbation, sputum culture positive for Pseudomonas # bronchiectasis # COPD exacerbation # acute hypoxic resp failure - weaned off O2. respiratory status improving. recently finished levofloxacin course as outpt. continue inhaled tobramycin 28 days on then 28 days off. continue home inhalers. continue home dose prednisone 10 mg/d. discussed with Pulmonology # acute anemia - likely slow GI bleed with heme-positive stool, on apixaban. CT A/P [facility] 03/23 without colitis or diverticulitis; thickened endometrium - per GI- EGD + C-scope once pt clinically stable and if wishes to pursue invasive evluation - per Heme- no hemolysis, outpt bone marrow examination if pt wishes to pursue - per Cardiology- hold apiaxaban + ASA- outpt f/u for Watchman's procedure - H+H improved appropriately after 1u pRBCs- recheck in AM # acute toxic-metabolic encephalopathy - resolved, was likely due to steroids/sundowning/hypoxia # chronic persistent AF - increased diltiazem dose to 240 mg CD daily - hold aspirin + apixaban due to FOBT+ anemia as above; outpt f/u with commercial sales director to consider Watchman device # HTN - continue diltiazem; lisinopril held # CAD s/p CABG - ASA held due to FOBT+ # chronic HFpEF - continue furosemide # VTE ppx: SCDs # dispo: recommended for STR by PT In my clinical judgment, the patient requires continued inpatient hospitalization for the following reasons: COPD exacerbation, rapid AF Quality Stroke Does the patient have a stroke diagnosis?: No VTE Prior VTE?: No VTE Risk Level:: Medical - moderate - high VTE Device Contraindication: Treatment Not Indicated VTE Drug Contraindication: N/A - Med Ordered
--- NOTE | 2022-04-13 13:57 | MHC.CM.PN ---
Addendum entered by Lula Hall 04/13/22 16:25: A call was received from [facility]. [facility] is requesting prescriptions for a commode and transport WC, be faxed to a vendor and also fax to [facility]. is aware that the hospital needs to provide the prescriptions. Plan is to address tomorrow am. Original Note: Met with patient and dtr Ximena to discuss discharge planning. Patients dtr requested to speak with PCP. Dr Marcial met with the patient and Ximena. The DP is home with resumption of [facility] and a script for a transport chair and a commode. T/W called [facility]. I spoke with April Transitions coordinator. She stated that the PCP will need to provide a script. A call was placed to Dr Richard Arciniega's office. A detailed VM was left for the MD. The request for the scripts and a call back to confirm message received. notified that PCP will need to provide the prescriptions.
--- NOTE | 2022-04-13 14:21 | MHC.CLN ---
F/U PO INTAKE 75-100% DIET RX: REGULAR-APPROPRIATE PT RECEIVING ENSURE BID TO INCREASE KCLAS AND PROMOTE WOUND HEALING SUPP PROVIDES 700KCALS, 40G PROTEIN GOAL IS FOR IMPROVED WOUND HEALING
[2022-04-13] MEDS: Montelukast Sodium 10 MG TABLET PO (21:38)
[2022-04-14] VITALS (9 sets, daily range): BP systolic 141–161; BP diastolic 63–78; PULSE 68–81; RESP 15–20; TEMP 35.9–36.2; O2SAT 93–99
[2022-04-14] MEDS: Tobramycin Sulfate 80 MG/2 ML VIAL 300 MG INHALE ×2 (02:09→15:59)
[2022-04-14] MEDS: Omeprazole 40 MG CAPSULE.DR PO ×2 (05:25→17:00)
[2022-04-14] MEDS: Acetaminophen 325 MG TABLET 650 MG PO ×2 (05:27→12:59)
[2022-04-14 07:06] LABS: Hematocrit 30.2 % (37.0-47.0); Hemoglobin 9.6 g/dl (12.0-16.0); Mean Corpuscular HGB Conc 31.8 g/dl (31.0-35.0); Mean Corpuscular Hemoglobin 30.5 pg (27.0-33.0); Mean Corpuscular Volume 95.9 fL (80.0-98.0); Mean Platelet Volume 10.3 fL (9.4-12.3); Platelet Count 150 X10*3/uL (160-400); Red Blood Count 3.15 X10*6/uL (4.20-5.50); Red Cell Distribution Width 17.5 % (11.0-16.0); White Blood Count 8.8 X10*3/uL (4.8-10.8)
[2022-04-14 07:25] LABS: Anion Gap 16 (12-20); Blood Urea Nitrogen 17 mg/dL (9-16); Calcium 8.3 mg/dL (8.4-10.2); Carbon Dioxide 27 mmol/L (22-29); Chloride 100 mmol/L (96-108); Creatinine Clr Calc Pharmacy 49.6; Estimated Glomerular Filt Rate > 60; Glucose Random 130 mg/dL (60-115); Magnesium 1.9 mg/dL (1.6-2.6); Potassium 3.9 mmol/L (3.3-5.1); Sodium 139 mmol/L (135-145)
[2022-04-14] MEDS: 0.9 % Sodium Chloride Flush 3 ML SYRINGE IVFLUSH ×3 (09:50→20:54)
[2022-04-14] MEDS: guaiFENesin DM 200/20/10 ML 10 ML SYRUP PO ×3 (09:50→20:54)
[2022-04-14] MEDS: dilTIAZem HCL CD 240 MG CAP.ER.DEG PO (09:51)
[2022-04-14] MEDS: predniSONE 10 MG TABLET PO (09:51)
[2022-04-14] MEDS: traMADoL HCL 50 MG TABLET PO ×2 (09:51→20:54)
[2022-04-14] MEDS: lisinopriL 2.5 MG TABLET PO (09:52)
[2022-04-14] MEDS: Furosemide 20 MG TABLET PO (09:52)
[2022-04-14] MEDS: Fluticasone Propionate Nasal 16 GM SPRAY 1 SPRAY NOSTRIL-B ×2 (09:52→20:54)
--- NOTE | 2022-04-14 11:22 | PM.DS ---
DS: Providers Provider Date of Service: 04/14/22 Date of admission: 04/06/22 16:45 Date of discharge: 04/14/22 Primary care physician: Monica Arciniega MD Consults: 04/06/22 17:05 Consult to Gastroenterology Routine Consulting Provider: Sujit Reynoso Reason for consultation: heme pos stool, blood loss anemia Consult to Pulmonology Routine Consulting Provider: Sasha Barnes Reason for consultation: hypoxia, tracheobronchitis w/ pseudomonas and corynebacterium 04/06/22 17:13 Consult to Cardiology Routine Consulting Provider: Esequiel Darden Reason for consultation: afib on eliquis with diffuse ecchymosis extrem and heme pos stool 04/07/22 12:35 Consult to Gastroenterology Routine Consulting Provider: Edilson Rossi Reason for consultation: anemia heme pos Has provider been notified: No 04/07/22 12:37 Consult to Hematology / Oncology Routine Consulting Provider: Lindy Damian Reason for consultation: anemia Has provider been notified: No DS: Diagnosis Discharge Diagnosis (1) Pseudomonas respiratory infection: Status: Acute (2) Anemia: Status: Acute (3) CAD (coronary artery disease): Status: Acute (4) Acute respiratory failure with hypoxia: Status: Acute (5) COPD (chronic obstructive pulmonary disease): Status: Acute (6) Bronchiectasis: Status: Acute (7) Atrial fibrillation with RVR: Status: Acute (8) GI bleed: Status: Acute (9) Anemia: Status: Acute DS: Summary Hospital Course Hospital Course: from admission H+P by hospitalist SANDY Garcia, 04/06/22: 81-year-old female with history hypertension, anemia chronic disease, atrial fibrillation anticoagulated with Eliquis, hyperlipidemia, CAD s/p CABG x4, mild aortic stenosis, chronic low back pain on tramadol, and diastolic congstive heart failure with preserved ejection fraction 50-55% presented to ED this morning for worsening shortness of breath over several weeks.? Reports shortness of breath at rest as well as with exertion.? No orthopnea or PND.? Was recently discharged from [facility] for copd exacerbation on 03/29 where she was treated with levaquin and IV steroids and discharged to complete 10 days course of levaquin and prednisone. She follows with Dr. Aldana in pulmonology with recent sputum culture on 03/22 positive for pseudomonas and corynebacterium species and was given tobramycin nebulizer. Reports despite these treatments, no improvement in symptoms. She is not oxygen dependent. There has also been cough and pt reports difficulty with expectoration.? She denies any sick contacts.? Denies any fevers, chills, sore throat, rhinorrhea, congestion, abdominal pain, nausea, vomiting, lightheadedness, palpitations, or chest pain.? While at [facility], was also found to have H&H chacorta requiring 1 unit packed red blood cell transfusion.? Haptoglobin was noted to be low with negative Roebrt.? Patient and her daughter declined bone marrow biopsy at that time.? On discharge, hemoglobin had increased to 8.4.? On arrival, hemoglobin 7.9 with hematocrit 24.9.? Denies any significant bleeding episodes including epistaxis or bright red blood per rectum though has had significant ecchymosis on the extremities bilaterally in the last few weeks.? Renal function was at baseline.? Potassium low at 2.9.? Electrolytes otherwise normal.? Initial lactic acid 2.2, repeat lactic acid 2.6.? Magnesium 1.8.? Total bilirubin 1.4, direct bilirubin 0.7.? Troponin 33.5.? BNP 160.? Total protein 5.1, albumin 3.3.? Stool occult blood positive.? Patient was tachypneic to 25 with heart rate 119.? No hypoxia.? Noted to have increased work of breathing.? She was started on 2 L supplemental oxygen.? EKG showed atrial flutter with RVR.? She is given 5 mg diltiazem push with improvement in heart rate to 95.? Potassium was also repleted with 40 mEq orally.? Patient to be admitted for COPD exacerbation with worsening shortness of breath and increased work of breathing as well as blood loss anemia. This 81yo F with bronchiectasis, HTN, ACD, AF on apixaban, HLD, CAD s/p 4v CABG, mild aortic stenosis, chronic low back pain on tramadol, and diastolic CHF was admitted with exacerbation of COPD/bronchiectasis. Hospital course by problem: # bronchiectasis # COPD exacerbation # acute hypoxic resp failure - Sputum culture was positive for Pseudomonas as above. Pulmonology was consulted. She was treated with inhaled tobramycin and plan is for 28 days and 28 days off. Day of discharge is day #02/06 of on. Home prednisone taper continued. She was weaned off O2. She will need close Pulmonology follow-up. # acute anemia - Likely slow GI bleed with heme-positive stool, on apixaban and aspirin. She was given 1u pRBCs with appropriate response in H+H and H+H remained stable. CT A/P [facility] 03/23 without colitis or diverticulitis; thickened endometrium. Per GI, EGD + C-scope once pt clinically stable and if wishes to pursue invasive evaluation as outpatient, but no compelling reason for inaptient endoscopy. Per Cardiology, apixaban and aspirin held and she should follow up with her outpatient transfer car operator drier for consideration of a Watchman device if she cannot be safely anticoagulated. She will also follow up with Hematology to consider bone marrow examination. Hb on discharge was 9.7 and repeat H+H in 1 week was ordered. # acute toxic-metabolic encephalopathy - Resolved; was likely due to steroids/sundowning/hypoxia. # Chronic persistent AF - Increased diltiazem dose to 240 mg CD daily for better rate control. Apixaban discontinued due to anemia as above. # CAD s/p CABG - ASA discontinued due to anemia as above. She was discharged home with resumption of VNA services. Time Spent with Patient Time attestation: Total time spent providing and/or coordinating discharge services: Discharge coordination time: Greater than 30 minutes Quality: Safe Use of Opioids Does Pt have an Active Cancer Diagnosis on the Problem List?: No Quality: Stroke Does the patient have a stroke diagnosis?: No Physical Exam Vital Signs: Vital Signs: Last Vital Signs Temp 96.8 F 04/14/22 07:24 Pulse 79 04/14/22 10:28 Resp 15 04/14/22 07:59 BP 161/67 H 04/14/22 07:24 Pulse Ox 95 04/14/22 07:24 O2 Del Method 04/14/22 07:24 O2 Flow Rate 2 04/12/22 03:19 FiO2 97 04/11/22 16:00 BMI result Body Mass Index 33.5 Gen: in no acute distress HEENT: sclera anicteric, moist mucus membranes Neck: supple Lungs: bilateral inspiratory rhonchi Heart: irregular, no murmurs Abd: soft, non-tender, non-distended Ext: no edema Skin: warm/well-perfused Neuro: alert and oriented x3, no focal findings Psych: appropriate affect DS: Data Data Completed and Pending Completed studies during hospitalization [Text1]: Laboratory Results WBC 8.8 X10*3/uL (4.8-10.8) 04/14/22 06:51 RBC 3.15 X10*6/uL (4.20-5.50) L 04/14/22 06:51 Hgb 9.6 g/dl (12.0-16.0) L 04/14/22 06:51 Hct 30.2 % (37.0-47.0) L 04/14/22 06:51 MCV 95.9 fL (80.0-98.0) 04/14/22 06:51 MCH 30.5 pg (27.0-33.0) 04/14/22 06:51 MCHC 31.8 g/dl (31.0-35.0) 04/14/22 06:51 RDW 17.5 % (11.0-16.0) H 04/14/22 06:51 Plt Count 150 X10*3/uL (160-400) L 04/14/22 06:51 MPV 10.3 fL (9.4-12.3) 04/14/22 06:51 Immature Gran % (Auto) 2.1 % (0.0-0.4) H 04/07/22 06:51 Neut % (Auto) 84.6 % (45-73) H 04/07/22 06:51 Lymph % (Auto) 9.8 % (20-40) L 04/07/22 06:51 [place] % (Auto) 3.3 % (2-11) 04/07/22 06:51 Eos % (Auto) 0.0 % (0-4) 04/07/22 06:51 Baso % (Auto) 0.2 % (0-2) 04/07/22 06:51 Lymph # (Auto) 0.7 X10*3/uL (1.2-4.9) L 04/07/22 06:51 [place] # (Auto) 0.2 X10*3/uL (0.1-1.2) 04/07/22 06:51 Eos # (Auto) 0.0 X10*3/uL (0.0-0.4) 04/07/22 06:51 Baso # (Auto) 0.0 X10*3/uL (0.0-0.2) 04/07/22 06:51 Abs Immat Gran (auto) 0.14 X10*3/uL (0.00-0.03) H 04/07/22 06:51 Absolute Neuts (auto) 5.6 x10*3/uL (2.0-8.3) 04/07/22 06:51 Absolute Nucleated RBC 0.000 X10*3/uL (0.0-0.012) 04/14/22 06:51 Nucleated RBC % (auto) 0.0 /100WBC (0.0-0.2) 04/14/22 06:51 Neutrophils % (Manual) Cancelled 04/07/22 06:51 Band Neutrophils % Cancelled 04/07/22 06:51 Lymphocytes % (Manual) Cancelled 04/07/22 06:51 Atypical Lymphs % (Man) Cancelled 04/07/22 06:51 Monocytes % (Manual) Cancelled 04/07/22 06:51 Eosinophils % (Manual) Cancelled 04/07/22 06:51 Basophils % (Manual) Cancelled 04/07/22 06:51 Metamyelocytes % Cancelled 04/07/22 06:51 Myelocytes % Cancelled 04/07/22 06:51 Promyelocytes % Cancelled 04/07/22 06:51 Blast Cells % (Manual) Cancelled 04/07/22 06:51 Plasma Cell % (Manual) Cancelled 04/07/22 06:51 Abs Neuts (Manual) Cancelled 04/07/22 06:51 Lymphocytes # (Manual) Cancelled 04/07/22 06:51 Atyp Lymphs # (Manual) Cancelled 04/07/22 06:51 Monocytes # (Manual) Cancelled 04/07/22 06:51 Eosinophils # (Manual) Cancelled 04/07/22 06:51 Basophils # (Manual) Cancelled 04/07/22 06:51 Metamyelocytes # Cancelled 04/07/22 06:51 Myelocytes # Cancelled 04/07/22 06:51 Promyelocytes # Cancelled 04/07/22 06:51 Blast Cells # Cancelled 04/07/22 06:51 Plasma Cell # (Manual) Cancelled 04/07/22 06:51 Nucleated RBCs Cancelled 04/07/22 06:51 Differential Comment Cancelled 04/07/22 06:51 Hypersegmented Neuts Cancelled 04/07/22 06:51 Smudge Cells Cancelled 04/07/22 06:51 Toxic Granulation Cancelled 04/07/22 06:51 Toxic Vacuolation Cancelled 04/07/22 06:51 Dohle Bodies Cancelled 04/07/22 06:51 [place] Rods Cancelled 04/07/22 06:51 WBC Morphology Comment Cancelled 04/07/22 06:51 Platelet Estimate Cancelled 04/07/22 06:51 Large Platelets Cancelled 04/07/22 06:51 Giant Platelets Cancelled 04/07/22 06:51 Plt Morphology Comment Cancelled 04/07/22 06:51 RBC Morphology Cancelled 04/07/22 06:51 Polychromasia Cancelled 04/07/22 06:51 Hypochromasia Cancelled 04/07/22 06:51 Basophilic Stippling Cancelled 04/07/22 06:51 Microcytosis Cancelled 04/07/22 06:51 Macrocytosis Cancelled 04/07/22 06:51 Spherocytes Cancelled 04/07/22 06:51 Pappenheimer Bodies Cancelled 04/07/22 06:51 Sickle Cells Cancelled 04/07/22 06:51 Target Cells Cancelled 04/07/22 06:51 Tear Drop Cells Cancelled 04/07/22 06:51 Ovalocytes Cancelled 04/07/22 06:51 Stomatocytes Cancelled 04/07/22 06:51 [place] Bodies Cancelled 04/07/22 06:51 Joelle Cells Cancelled 04/07/22 06:51 Acanthocytes (Spur) Cancelled 04/07/22 06:51 Rouleaux Cancelled 04/07/22 06:51 Schistocytes Cancelled 04/07/22 06:51 Absolute Retic 0.222 X10*6/uL (0.026-0.095) H 04/07/22 06:51 Percent Retic 7.6 % (0.5-1.8) H 04/07/22 06:51 Immature Retic Fraction 25.8 % (3.0-15.9) H 04/07/22 06:51 Retic Hgb Equivalent 33.6 pg (30.0-35.0) 04/07/22 06:51 Haptoglobin 45 mg/dL (43-212) 04/07/22 06:51 PT 22.3 SEC (10.0-13.1) H 04/06/22 13:06 INR 1.9 (0.9-1.1) H 04/06/22 13:06 APTT 32.2 SEC (26.0-36.4) 04/06/22 13:06 Sodium 139 mmol/L (135-145) 04/14/22 06:52 Potassium 3.9 mmol/L (3.3-5.1) 04/14/22 06:52 Chloride 100 mmol/L (96-108) 04/14/22 06:52 Carbon Dioxide 27 mmol/L (22-29) 04/14/22 06:52 Anion Gap 16 (12-20) 04/14/22 06:52 BUN 17 mg/dL (9-16) H 04/14/22 06:52 Creatinine 0.76 mg/dL (0.5-1.4) 04/14/22 06:52 Estim Creat Clear Calc 49.6 04/14/22 06:52 Estimated GFR > 60 04/14/22 06:52 Random Glucose 130 mg/dL (60-115) H 04/14/22 06:52 Lactic Acid 2.2 mmol/L (0.5-2.0) H* 04/06/22 13:06 Lactic Acid F/U @ 2Hr 2.6 mmol/L (0.5-2.0) H* 04/06/22 15:20 Lactic Acid F/U @ 4Hr 2.0 mmol/L (0.5-2.0) 04/06/22 17:57 Calcium 8.3 mg/dL (8.4-10.2) L 04/14/22 06:52 Magnesium 1.9 mg/dL (1.6-2.6) 04/14/22 06:52 Total Bilirubin 1.4 mg/dL (0.0-1.0) H 04/06/22 13:06 Direct Bilirubin 0.7 mg/dL (0.0-0.5) H 04/06/22 13:06 AST 21 U/L (5-31) 04/06/22 13:06 ALT 42 U/L (0-31) H 04/06/22 13:06 Alkaline Phosphatase 128 U/L (39-117) H 04/06/22 13:06 Lactate Dehydrogenase 246 U/L (122-220) H 04/07/22 06:51 Troponin I High Sens 33.5 ng/L (<3.5-17.0) H 04/06/22 13:06 B-Natriuretic Peptide 160 pg/mL (<100) H 04/06/22 13:06 Total Protein 5.1 g/dL (6.5-8.0) L 04/06/22 13:06 Albumin 3.3 g/dL (3.5-5.0) L 04/06/22 13:06 Urine Color Yellow 04/10/22 11:03 Urine Appearance Clear 04/10/22 11:03 Urine pH 5.0 (5.0-9.0) 04/10/22 11:03 Ur Specific [place] 1.010 (1.005-1.025) 04/10/22 11:03 Urine Protein Negative mg/dL (Neg-Trace) 04/10/22 11:03 Urine Glucose (UA) Negative mg/dL (Negative) 04/10/22 11:03 Urine Ketones Negative mg/dL (Negative) 04/10/22 11:03 Urine Blood Negative (Negative) 04/10/22 11:03 Urine Nitrite Negative (Negative) 04/10/22 11:03 Ur Leukocyte Esterase Trace (Negative) H 04/10/22 11:03 Urine RBC 0-2 /HPF (0-2) 04/10/22 11:03 Urine WBC 11-20 /HPF (0-5) H 04/10/22 11:03 Ur Squamous Epith Cells 0-2 /HPF (0-2) 04/10/22 11:03 Urine Bacteria None Seen (None Seen) 04/10/22 11:03 Hyaline Casts 3-5 /LPF (0-2) 04/10/22 11:03 Urine Yeast Present 04/10/22 11:03 Stool Occult Blood POSITIVE (NEGATIVE) 04/06/22 15:28 COVID-19 (RILEY) Negative (Negative) 04/06/22 13:07 COVID-19 Clin Com See Note 04/06/22 13:07 Blood Type A Positive 04/06/22 15:20 Antibody Screen NEGATIVE 04/06/22 15:20 BERNARD, Polyspecific NEGATIVE 04/06/22 15:20 Positive BERNARD Work-up TNP 04/06/22 15:20 Crossmatch See Detail 04/06/22 15:[address] 04/06/22 14:32 IMPRESSION: New superior endplate compression deformity of T12, new since 12/30/2021 but not necessarily acute. Moderate central bronchial wall thickening, perhaps worsened, consistent with bronchitis. There there is a 9 mm nonspecific groundglass opacity in the right upper lobe. Typically these are infectious or inflammatory. According to the UPDATED 2017 Fleischner Society recommendations, the advised follow-up imaging for a single pure ground-glass nodule measuring 6 mm or greater is: CT at 6-12 months to confirm persistence, then CT every 2 years until 5 years if it persists. New streaky opacities at the lung bases, particularly the right lower lobe, most likely represent atelectasis. Fleischner guidelines were followed. Chest X-Ray 04/11/22 10:50 IMPRESSION: Increasing atelectasis or small infiltrate in the left lower lobe and small left pleural effusion. Discharge Plan Discharge Anticipated Discharge Date/Time: 04/14/22 11:13 Patient Disposition: Home Health Service Discharge Diagnosis: # bronchiectasis # COPD exacerbation # acute hypoxic resp failure # acute anemia # acute toxic-metabolic encephalo # coronary artery disease Referrals: Monica Arciniega MD [Primary Care Provider] - 1 Week Edilson Rossi [Physician] - 1 Week Kelton Coto MD [Physician] - 1 Week Lindy Damian MD [Physician] - 1 Week Carlin Aldana MD [Physician] - 1 Week Discharge Medications: New diltiazem HCl 240 mg Capsule,Extended Release 24hr 240 mg PO DAILY Qty: 30 0RF Protocol: Hold for SBP/HR < HOLD for SBP < : 90 HOLD for HR < : 60 Rx Instructions: replaces prior dose of 120 mg daily Continued tobramycin in 0.225 % NaCl [John] 300 mg/5 mL solution for nebulization 300 mg inhalation BID 28 Days Qty: 280 6RF Rx Instructions: Take for 28 days as prescribed and then 28 days off furosemide 20 mg tablet 1 tab PO DAILY lisinopril 2.5 mg tablet 1 tab PO DAILY albuterol sulfate 90 mcg/actuation Hfa Aerosol Inhaler 2 inh INHALATION Q4H PRN (Reason: Wheezing) umeclidinium-vilanterol 62.5-25 mcg/actuation blister with device 1 ea inhalation DAILY Qty: 60 0RF Rx Instructions: Please fill prescription; hospital lost her inhaler polyethylene glycol 3350 17 gram/dose powder 17 g PO DAILY PRN (Reason: Constipation) docusate sodium 100 mg capsule 100 mg PO BID fluticasone propionate 50 mcg/actuation spray,suspension 1 spray intranasal BID montelukast 10 mg tablet 10 mg PO BEDTIME nitroglycerin 0.3 mg tablet, sublingual 0.3 mg sublingual Q5M PRN (Reason: Chest Pain) omeprazole 40 mg capsule,delayed release(DR/EC) 40 mg PO BID oxybutynin chloride 5 mg tablet extended release 24hr 5 mg PO DAILY tramadol 50 mg tablet 50 mg PO BID (DME) nebulizers Kit See Rx Instructions .ROUTE Rx Instructions: As directed prednisone 10 mg tablet See Rx Instructions PO DAILY 30 Days Qty: 20 0RF Rx Instructions: PO daily; take 1 tab daily x 10 days, then 1 tab every other day x 20 days levalbuterol HCl [Xopenex] 1.25 mg/3 mL solution for nebulization 1.25 mg inhalation QID 30 Days Qty: 360 11RF Discontinued levofloxacin 500 mg tablet 500 mg PO DAILY 14 Days Qty: 14 0RF aspirin 81 mg tablet,delayed release (DR/EC) 81 mg PO BEDTIME Eliquis 5 mg tablet 5 mg PO BID diltiazem HCl 120 mg capsule,extended release 24hr 120 mg PO DAILY Discharge Orders: Discharge Order (Routine); Ordered 04/14/22 Ordered By: Torin Marcial Diet: Advance to usual diet Activity on Discharge: As tolerated Stand Alone Forms: Patient Portal Discharge page Other Ambulatory Orders: Hemoglobin and Hematocrit (Routine) Timeframe: 1 Week Facility: [facility] - Location: Laboratory Ordered By: Torni Marcial Care Plan Goals: lung health anemia workup Health Concerns: # bronchiectasis # COPD exacerbation - inhaled tobramycin 28 days on [today is day #8], then 28 days off - continue Anoro + albuterol - continue prednisone - follow up with Pulmonology in 1-2 weeks # acute hypoxic resp failure - weaned off oxygen # acute anemia - likely slow GI bleed - stop apixaban - follow up with GI- Dr Rossi- within 2 weeks- consider EGD and colonoscopy - follow up with Hematology- consider bone marrow examination - follow up with Cardiology- consider Watchman device - recheck H+H in 1 week # acute toxic-metabolic encephalopathy - resolved, was likely due to steroids/sundowning/hypoxia # chronic persistent AF - increased diltiazem dose to 240 mg CD daily - d/c apixaban as above and follow up with Cardiology # coronary artery disease - stop aspirin due to GI bleed Plan of Treatment: see above Assessment: See Discharge Summary.
--- NOTE | 2022-04-14 13:16 | MHC.CM.PN ---
Discharge today. Patient and dtr refuse dc until commode and transport chair in place. Prescription were sent to [facility] this am, as requested. A call has been received from April , Transitions of care. She has requested a letter from the MD to explain need for DME prior to discharge. She also requested additional documentation to support the need for the DME prior to discharge. The DC Summary and Packet have been faxed to [facility]. A message has been sent to MD requesting the letter. That message provided details needed to support the request. The message was auto forwarded to another MD. April has been notified that the MD is not currently available to provide the letter of necessity. Patient has been notified that the Hospitalist has provided the prescriptions to [facility].
[2022-04-14] MEDS: Montelukast Sodium 10 MG TABLET PO (20:54)
[2022-04-15] VITALS (10 sets, daily range): BP systolic 157–172; BP diastolic 68–84; PULSE 71–109; RESP 14–20; TEMP 35.8–36.4; O2SAT 94–98
[2022-04-15] MEDS: Tobramycin Sulfate 80 MG/2 ML VIAL 300 MG INHALE (01:35)
[2022-04-15] MEDS: Omeprazole 40 MG CAPSULE.DR PO (05:46)
[2022-04-15] MEDS: lisinopriL 2.5 MG TABLET PO (09:24)
[2022-04-15] MEDS: Fluticasone Propionate Nasal 16 GM SPRAY 1 SPRAY NOSTRIL-B (09:24)
[2022-04-15] MEDS: Furosemide 20 MG TABLET PO (09:24)
[2022-04-15] MEDS: dilTIAZem HCL CD 240 MG CAP.ER.DEG PO (09:24)
[2022-04-15] MEDS: predniSONE 10 MG TABLET PO (09:25)
[2022-04-15] MEDS: traMADoL HCL 50 MG TABLET PO (09:25)
[2022-04-15] MEDS: guaiFENesin DM 200/20/10 ML 10 ML SYRUP PO (09:26)
[2022-04-15] MEDS: 0.9 % Sodium Chloride Flush 3 ML SYRINGE IVFLUSH (09:26)
--- NOTE | 2022-04-15 13:38 | MHC.CM.PN ---
Addendum entered by Lula Hall 04/15/22 14:10: Received a call from CM office. Patients dtr will pick her up this evening. IMM was provided yesterday. Original Note: T/W followed up with [employer] re DME ordered. The equipment is ready for miner pick. Delivery would be Monday. Patient is discharged today. The dtr was notified that the equipment is available for miner pick after 1pm. She stated that she would need to wait for her spouse to get home at 3pm today.
== END 2022-04-15 17:54 | disposition home health service (06) | DRG 190 ==
LOC: HO.ED 16:15 → HO.EDOVER 17:17 → HO.IMC 19:18
PROVIDERS: Family Medicine; Hospitalist; Internal Medicine Medical Oncology; Admitting Provider Physician Assistant; Emergency Provider Emergency Medicine; PCP Internal Medicine; Visit Provider Internal Medicine
DX: J47.0 Bronchiectasis with acute lower respiratory infection (principal); G92.8 Other toxic encephalopathy; J96.01 Acute respiratory failure with hypoxia; E87.20 Acidosis, unspecified; I50.32 Chronic diastolic (congestive) heart failure; D62 Acute posthemorrhagic anemia; J47.1 Bronchiectasis with (acute) exacerbation; E87.6 Hypokalemia; E78.5 Hyperlipidemia, unspecified; I25.10 Atherosclerotic heart disease of native coronary artery without angina pectoris; Z95.1 Presence of aortocoronary bypass graft; I35.0 Nonrheumatic aortic (valve) stenosis; M54.50 Low back pain, unspecified; G89.29 Other chronic pain; T48.6X5A Adverse effect of antiasthmatics, initial encounter; J20.9 Acute bronchitis, unspecified; I48.0 Paroxysmal atrial fibrillation; I11.0 Hypertensive heart disease with heart failure; D63.8 Anemia in other chronic diseases classified elsewhere; E66.9 Obesity, unspecified; Z20.822 Contact with and (suspected) exposure to COVID-19; Z68.33 Body mass index [BMI] 33.0-33.9, adult; Z87.891 Personal history of nicotine dependence; Z79.01 Long term (current) use of anticoagulants; Z79.51 Long term (current) use of inhaled steroids; Z79.899 Other long term (current) drug therapy
CPT/HCPCS: 36415; 71045; 71046; 71250; 80048; 80076; 81001; 82272; 83010; 83605; 83615; 83735; 83880; 84484; 85025; 85027; 85045; 85610; 85730; 86850; 86880; 86900; 86901; 86923; 87040; 87086; 87088; 87635; 93005; 97116; 97162; 97530; 99285; J0692; J1885; J2270; J2920; J3260; P9016

== ENCOUNTER 2022-04-19 15:29 | Outpatient (REF) | payer OTHER, SELFPAY ==
[2022-04-19 16:56] LABS: Hematocrit 30.7 % (37.0-47.0); Hemoglobin 9.8 g/dl (12.0-16.0)
== END 2022-04-19 15:30 | disposition home or self-care (01) ==
LOC: HO.LAB 15:29
PROVIDERS: PCP Internal Medicine; Visit Provider Family Medicine
DX: D64.9 Anemia, unspecified (principal); J15.1 Pneumonia due to Pseudomonas; J44.9 Chronic obstructive pulmonary disease, unspecified; R91.8 Other nonspecific abnormal finding of lung field
CPT/HCPCS: 36415; 85014; 85018; 99212

== ENCOUNTER → 2022-06-23 14:29 | Outpatient (BNVA) | payer OTHER, SELFPAY | PROVIDERS: PCP Internal Medicine; Visit Provider Hospitalist | DX: Z23 Encounter for immunization (principal); J15.1 Pneumonia due to Pseudomonas; J41.1 Mucopurulent chronic bronchitis; R91.8 Other nonspecific abnormal finding of lung field | CPT/HCPCS: 90471; 90686; 99212 ==

== ENCOUNTER → 2022-07-26 10:05 | Outpatient (BNVA) | payer OTHER, SELFPAY | PROVIDERS: PCP Internal Medicine; Visit Provider Hospitalist | DX: J44.1 Chronic obstructive pulmonary disease with (acute) exacerbation (principal); J15.1 Pneumonia due to Pseudomonas; R91.8 Other nonspecific abnormal finding of lung field; Z79.52 Long term (current) use of systemic steroids; Z79.899 Other long term (current) drug therapy | CPT/HCPCS: 99212 ==

== ENCOUNTER 2022-08-23 14:52 | Inpatient (IN) | payer OTHER, SELFPAY ==
--- NOTE | ~2022-08-23 | CT_ITS ---
EXAMINATION: CT CHEST WITHOUT CONTRAST CT ABDOMEN AND PELVIS WITHOUT CONTRAST CLINICAL INFORMATION: Fall COMPARISON: 04/06/2022 TECHNIQUE: Multidetector volumetric imaging was performed through the chest, abdomen and pelvis without contrast. Sagittal and coronal reformatted images were obtained on the technologist's workstation. Axial MIP volume rendering provided. This CT examination was performed using dose optimization techniques as appropriate, variously including the following: *Automated exposure control *Adjustment of mA and/or kV according to patient size (this includes techniques or standardized protocols for targeted exams where dose is matched to indication/reason for exam; i.e. extremities or head) *Use of iterative reconstruction technique DLP: 1161 mGy-cm. FINDINGS: CHEST: Lungs: The central airways are patent. No dense consolidation. Bandlike bibasilar opacities favor atelectasis. Bronchiectasis at the lower lobes with bronchial filling defects, particularly in the left lower lobe with adjacent opacities. Dependent atelectasis tracks along the right minor fissure. Mild pleural thickening at the bases. No pneumothorax. No pleural effusion. Mediastinum: The heart is prominent. There is no pericardial effusion. Central vascular structures are unremarkable. Status post CABG. No hilar or mediastinal lymphadenopathy. Coronary Artery Calcification: Present. Chest Wall/Axilla: No lymphadenopathy. No chest wall mass. ABDOMEN/PELVIS: Liver, Gallbladder, Biliary Tree: The liver is normal in size, shape, and attenuation. No focal hepatic lesion or biliary ductal dilatation is present. Cholecystectomy. Pancreas: Atrophy of the pancreatic parenchyma. There is a 2.1 cm nodular density at the pancreatic tail. This is not clearly seen on the study from 04/06/2022. Spleen: Unremarkable. Adrenal Glands: Unremarkable. Kidneys and Ureters: The kidneys are normal in size, shape, and attenuation. No hydronephrosis, hydroureter or calculi seen. No perinephric stranding. Bladder: Unremarkable. Gastrointestinal Tract: The stomach is unremarkable. Normal caliber of the small bowel. No obstruction. Scattered colonic diverticulosis without diverticulitis. A portion of the small bowel extends into a prominent umbilical hernia. The appendix is unremarkable. Abdominal Wall: Umbilical hernia containing a portion of small bowel which is not obstructing. Bilateral inguinal region hernias containing fat. Lymphovascular Structures: Lymph nodes: Normal. Vascular: Normal caliber aorta with moderate atherosclerotic calcification. Pelvic Viscera: The uterus and adnexa are unremarkable. OSSEOUS STRUCTURES: Vertebral body height loss at multiple levels. This includes at the T9 vertebral body which has progressed from prior. There is approximately 50% loss of height at this time. Mild height loss at the T12 vertebral body, not in the [id number] of prior. There is also mild L5 vertebral body loss of height. Degenerative change throughout the spine with facet arthropathy and disc space narrowing. Osteophytes throughout with vacuum disc phenomenon. Status post median sternotomy. There is a minimally displaced fracture of the posterior right 11th rib. Possible nondisplaced right posterior 12th rib fracture. No acute pelvic fracture. Chronic healed right pubic rami fractures. Total right hip arthroplasty without evidence of failure. CT/CT abdomen pelvis wo IV con IMPRESSION: 1. Minimally displaced posterior right 11th rib fracture, acute. Possible nondisplaced posterior right 12th rib fracture. 2. Multiple vertebral body compression deformities are seen, which are age indeterminate. The T9 compression deformity has progressed from the 2021 study. 3. 2.1 cm nodular density at the pancreatic tail. This is not clearly seen on the study from 04/06/2022. This could represent a pancreatic mass. Consider nonemergent MRI evaluation. 4. Prominent umbilical hernia containing a portion of small bowel. No obstruction. 5. Bronchiectasis at the lower lobes with bronchial filling defects, particularly in the left lower lobe with adjacent opacities. Aspiration possible.
--- NOTE | ~2022-08-23 | US_ITS ---
EXAMINATION: US VENOUS WITH DOPPLER UPPER EXTREMITY, RIGHT CLINICAL INFORMATION: Swelling and pain COMPARISON: None available. TECHNIQUE: Ultrasound of the upper extremity is performed using compression sonography and color and pulse Doppler flow with assessment of augmentation of flow. There is also imaging and Doppler assessment of the jugular and subclavian veins. Spectral analysis with color-flow imaging is performed. FINDINGS: Respiratory variation, normal compression, and augmented flow are noted throughout the upper extremity including the axillary, brachial, cubital, and radial and ulnar veins. There is normal flow in the internal jugular and subclavian veins. There is no visible deep or superficial thrombophlebitis. If the patient's symptoms progress, a followup ultrasound in 5 -7 days might be of value to exclude proximal propagation from a nonvisualized distal arm vein. US/US venous duplex UE RT IMPRESSION: No DVT demonstrated in the right upper extremity
--- NOTE | ~2022-08-23 | XR_ITS ---
EXAMINATION: XR CHEST CLINICAL INFORMATION: Crackles and dyspnea. COMPARISON: None available. TECHNIQUE: Frontal view of the chest was obtained. FINDINGS: The lungs are hypoexpanded without acute process.. Heart size is normal prominent pulmonary vascularity is noted but no congestion seen. There is evidence of previous CABG and median sternotomy sutures. XR/XR chest 1V IMPRESSION: Hypoexpanded lungs without acute process.
--- NOTE | ~2022-08-23 | CT_ITS ---
EXAMINATION: CT HEAD WITHOUT CONTRAST CLINICAL INFORMATION: Dizziness. COMPARISON: None. TECHNIQUE: Contiguous axial imaging was performed from the skullbase to vertex without intravenous administration of contrast. Limited study with motion artifacts. This CT examination was performed using dose optimization techniques as appropriate, variously including the following: *Automated exposure control *Adjustment of mA and/or kV according to patient size (this includes techniques or standardized protocols for targeted exams where dose is matched to indication/reason for exam; i.e. extremities or head) *Use of iterative reconstruction technique DLP: 1170 mGy-cm. FINDINGS: There is no evidence of acute intracranial hemorrhage or territorial infarction. No abnormal mass effect or midline shift is seen. Quinn to white matter differentiation is well preserved. No extra-axial fluid collections are identified. Generalized parenchymal volume loss evident with ex vacuo dilatation of the ventricles. Mild chronic white matter microangiopathic changes noted. The osseous structures and soft tissues are normal. The mastoid air cells and visualized portions of the paranasal sinuses are well aerated. There are moderate degenerative changes of the temporomandibular joints bilaterally. CT/CT head/brain wo IV con IMPRESSION: Limited study with motion artifacts. Moderate diffuse parenchymal volume loss and mild chronic white matter microangiopathy. No acute intracranial hemorrhage or territorial infarction. The possibility of a focal acute ischemic process cannot be ruled out on the basis of this study.
--- NOTE | ~2022-08-23 | CT_ITS ---
EXAMINATION: CT ABDOMEN AND PELVIS WITHOUT AND WITH CONTRAST CLINICAL INFORMATION: Left upper quadrant pain, pancreatic tail nodule. COMPARISON: CT abdomen pelvis without contrast 08/23/2022. TECHNIQUE: Multidetector volumetric imaging was performed of the abdomen and pelvis before and after the IV administration of 85 mL of Omnipaque 350 intravenous contrast. Sagittal and coronal reformatted images were obtained on the technologist's workstation. This CT examination was performed using dose optimization techniques as appropriate, variously including the following: *Automated exposure control *Adjustment of mA and/or kV according to patient size (this includes techniques or standardized protocols for targeted exams where dose is matched to indication/reason for exam; i.e. extremities or head) *Use of iterative reconstruction technique DLP: 1514 mGy-cm. FINDINGS: LUNG BASES: There is new right lower lobe airspace consolidation. There are median sternotomy sutures from previous intervention. Atelectatic changes or scarring is seen in left lung base. The heart size is enlarged. No pericardial effusion seen on the visualized images. LIVER, GALLBLADDER, AND BILIARY TREE: The liver is normal in size, shape, and attenuation. No focal hepatic lesion or biliary ductal dilatation is present. The gallbladder has been surgically removed. The CBD measures 1.2 cm and expected finding. PANCREAS: There is a well visualized pancreatic tail lesion measuring 1.7 x 1.3 cm. Precontrasted measures -14 Hounsfield units, arterial phase measures 7.6 Hounsfield units, and venous phase measures 6.79 Hounsfield units. There is no enhancement in this lesion. 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 SPLEEN: Unremarkable. ADRENAL GLANDS: Unremarkable. KIDNEYS AND URETERS: The kidneys are normal in size, shape, and attenuation. No hydronephrosis, hydroureter, or calculi seen. No perinephric stranding. BLADDER: Unremarkable. GASTROINTESTINAL TRACT: There is scattered stool and gas seen throughout the colon without significant distention. Oral contrast opacified small bowel loops are normal caliber. The appendix is normal caliber. The stomach is nondistended and appears unremarkable. ABDOMINAL WALL: There is a umbilical hernia containing loops of small bowel. LYMPH NODES: Normal. VASCULAR: Unremarkable. PELVIC VISCERA: The uterus is anteverted with a hypodense area within the fundus myometrium. No free fluid. No abnormal pelvic lymph nodes seen. OSSEOUS STRUCTURES: There are degenerative disc changes with vacuum disc phenomena at all lumbar disc levels. There is compression deformity T12 vertebra of indeterminate age. CT/CT abdomen pelvis wo/w IV con IMPRESSION: Nonenhancing lesion in the tail of pancreas most likely cysts. Recommend CT abdomen with and without contrast followup in 3-6 months for stability. Moderate-sized hernia containing loops of small bowel. Cholecystectomy. Interval development of right lower lobe infiltrate. Fleischner guidelines were followed.
--- NOTE | ~2022-08-23 | CT_ITS ---
EXAMINATION: CT head/brain wo IV con CLINICAL INFORMATION: confusion r/o SDH COMPARISON: CT head 08/23/2022 TECHNIQUE: Contiguous axial imaging was performed from the skull base to vertex without intravenous contrast. Sagittal and coronal reformatted images were obtained. This CT examination was performed using dose optimization techniques as appropriate, variously including the following: * Automated exposure control * Adjustment of mA and/or kV according to patient size (this includes techniques or standardized protocols for targeted exams where dose is matched to indication/reason for exam; i.e. extremities or head) Use of iterative reconstruction technique DLP: 532 mGy-cm FINDINGS: Moderate generalized parenchymal volume loss and mild chronic microangiopathy. No territorial loss of mcdonald-white differentiation. No acute intracranial hemorrhage or extra-axial fluid collection. No mass lesion, significant mass effect, or herniation pattern. Intracranial calcific atherosclerotic disease. The orbits are grossly normal. Redemonstrated subtotal opacification of the sphenoid sinuses with air-fluid levels and increased moderate mucosal disease within several left posterior ethmoid air cells. The mastoid air cells are well aerated. Osseous structures are intact. Moderate bilateral TMJ osteoarthrosis. CT/CT head/brain wo IV con IMPRESSION: 1. No new acute intracranial abnormality. Specifically, without evidence of subdural hemorrhage. 2. Moderate generalized parenchymal volume loss and mild chronic microangiopathy. 3. Redemonstrated subtotal opacification of the sphenoid sinuses with air-fluid which can be correlated for signs of acute sinusitis.
[2022-08-23 15:06] VITALS: BP 135/115; BP 169/80; PULSE 160; PULSE 80; RESP 18; TEMP 37.1; O2SAT 96; BMI 30.3
--- NOTE | 2022-08-23 15:59 | ED_ITS ---
HPI - General Adult General Chief complaint: General Medical Stated complaint: SEPSIS? Time Seen by Provider: 08/23/22 15:03 History of Present Illness HPI narrative: Patient is an 81-year-old female with a history of COPD history of congestive heart failure history of atrial fibrillation currently on Eliquis history of Pseudomonas infections in the lungs presented today with having increasing coughing shortness of breath increasing demands for oxygen. Baseline patient is not on oxygen at home satting in the 80s with air. Feels weak tired question increased swelling to the legs feeling dizzy sent in for further evaluation Related Data Home Medications Medication Instructions Recorded Confirmed docusate sodium 100 mg capsule 100 mg PO BEDTIME 03/22/22 08/23/22 fluticasone propionate 50 1 spray intranasal BID 03/22/22 08/23/22 mcg/actuation nasal spray,suspension montelukast 10 mg tablet 10 mg PO BEDTIME 03/22/22 08/23/22 nebulizers 03/22/22 07/04/22 nitroglycerin 0.3 mg sublingual 0.3 mg sublingual Q5M PRN Chest 03/22/22 08/23/22 tablet Pain omeprazole 40 mg capsule,delayed 40 mg PO DAILY 03/22/22 08/23/22 release oxybutynin chloride 5 mg 5 mg PO DAILY 03/22/22 08/23/22 tablet,extended release 24 hr tramadol 50 mg tablet 50 mg PO BID 03/22/22 08/23/22 furosemide 20 mg tablet 1 tab PO DAILY 04/06/22 08/23/22 lisinopril 2.5 mg tablet 1 tab PO DAILY 04/06/22 08/23/22 umeclidinium 62.5 mcg-vilanterol 1 ea inhalation DAILY 05/24/22 08/23/22 25 mcg/actuation powdr for inhalation (Anoro Ellipta) apixaban 2.5 mg tablet (Eliquis) 2.5 mg PO BID 08/04/22 08/23/22 albuterol sulfate 90 mcg/actuation 2 puff inhalation Q4H PRN 08/23/22 08/23/22 aerosol inhaler (Ventolin HFA) Shortness Of Breath ferrous sulfate 325 mg (65 mg 325 mg PO DAILY 08/23/22 08/23/22 iron) tablet prednisone 10 mg tablet 10 mg PO BID 08/23/22 08/23/22 Previous Rx's Medication Instructions Recorded levalbuterol HCl 1.25 mg/3 mL 1.25 mg (3 mL) inhalation QID 30 03/22/22 solution for nebulization (Xopenex) days #360 mL tobramycin 300 mg/5 mL in 0.225 % 300 mg (5 mL) inhalation BID 28 03/25/22 sodium chloride for nebulization days #280 mL (John) diltiazem HCl 240 mg 240 mg PO DAILY #30 caps 04/14/22 capsule,extended release 24 hr Allergies Allergy/AdvReac Type Severity Reaction Status Date / Time carvedilol Allergy Shortness Verified 07/26/22 10:16 of Breath sertraline [From Zoloft] Allergy Shortness Verified 07/26/22 10:16 of Breath spironolactone Allergy Shortness Verified 07/26/22 10:16 of Breath Review of Systems Review of Systems: Positive coughing upper respiratory symptoms positive generalized malaise Positive shortness of breath Yes all other systems are reviewed and are negative [facility] Past Medical History Medical History Acute encephalopathy Acute hypokalemia Acute respiratory failure with hypoxia Anemia Anemia Atrial fibrillation with RVR Bronchiectasis CAD (coronary artery disease) Chronic dyspnea COPD (chronic obstructive pulmonary disease) GI bleed Pseudomonal pneumonia Pseudomonas respiratory infection Pulmonary nodules Surgical History History of cholecystectomy History of hip replacement History of knee replacement History of quadruple bypass Family History Family History Other No family history of cancer Social History Social History Household Members: Family and Children Housing: House Are you a primary pharmacy customer care specialist to a significant other at home: No Do you presently have visiting nurse or other home services: Yes Alcohol intake: never Patient Tobacco Use Status: Former Tobacco user Advance Directives: No Advance Directives Information Provided: Yes service: No Current occupational status: retired Physical Exam ED Vital Signs: Vital Signs - 24 hr 08/23/22 15:06 08/23/22 16:30 Temperature 98.7 F Pulse Rate 80 71 Respiratory Rate 18 20 Blood Pressure 135/115 H Pulse Oximetry 96 Oxygen Delivery Method Nasal Cannula BMI result Body Mass Index 30.3 Appearance: Alert. Oriented X3. No acute distress. Eyes: Pupils equal, round and reactive to light. ENT: Pharynx normal. Neck: Normal inspection. Neck supple. No lymph nodes noted. No crepitus CVS: Normal heart rate and rhythm. Pulses normal. Normal S1 and S2 Respiratory: Diminished breath sounds bilaterally, positive rhonchi noted increased work of breathing Abdomen: Soft and nontender. No rigidity. No distention. good BS x4 positive contusions to the back and to the legs noted. Skin: Skin warm and dry. Normal skin color. Normal skin turgor. Extremities: 2+ pitting edema bilateral lower extremity Neurovascular intact to all extremities. No Lacerations. No Rash Neuro: Oriented X 3. No motor deficit. No sensory deficit. Moving all extermities. No slurred speech Medications Administered Discontinued Medications Generic Name Dose Route Start Last Admin Trade Name Freq PRN Reason Stop Dose Admin Albuterol Sulfate 2.5 mg 08/23/22 16:07 08/23/22 16:28 Albuterol Sulfate (0.083%) 2.5 Mg/3 Ml Vial.Neb INHALE 08/23/22 16:08 2.5 mg ONCE ONE Administration Cefepime HCl 1 gm/ Sodium 50 mls @ 100 mls/hr 08/23/22 16:07 08/23/22 17:09 Chloride IV 08/23/22 16:36 100 mls/hr ONCE ONE Administration Methylprednisolone Sodium Succinate 125 mg 08/23/22 16:07 08/23/22 17:09 Methylprednisolone Sod Succ 125 Mg/2 Ml Vial IVPUSH 08/23/22 16:08 125 mg ONCE ONE Administration Metoprolol Tartrate 2.5 mg 08/23/22 16:00 08/23/22 17:09 Metoprolol Tartrate 5 Mg/5 Ml Vial IVPUSH 08/23/22 16:01 2.5 mg ONCE ONE Administration Metoprolol Tartrate 2.5 mg 08/23/22 18:30 08/23/22 18:46 Metoprolol Tartrate 5 Mg/5 Ml Vial IVPUSH 08/23/22 18:31 2.5 mg ONCE ONE Administration Medical Decision Making Medical Decision Making MDM Narrative: Positive history of atrial fibrillation positive coughing upper respiratory symptoms with a previous history of Pseudomonas infection history of COPD. Given some IV steroids given albuterol treatment patient's symptoms seems happened improved. Patient's BNP is in the 150 range. Given patient's 81 years old unlikely this is secondary to CHF. CT scan of the head chest abdomen pelvis was done as patient fell recently when she felt dizzy not quite right seat and she is on blood thinners. CT scan of the head was negative for any acute evidence of bleeding. No fracture noted. No mass noted. CT scan of the chest showed right-sided rib fractures probably made the shortness of breath worse. There is some atelectasis questionable aspiration also noted. Probably made the breathing worse. Cultures obtained patient was started on a dose of cefepime. Patient has no evidence for sepsis patient's increase in heart rate is secondary to atrial fibrillation. Did not want to give patient has significant IV fluids secondary to patient's chronic conditions. CT of the abdomen pelvis did not show any acute abdominal trauma. Patient's O2 sat actually improved after the neb treatment. Probably a good component of COPD. But given patient's state of health. Patient lives with a younger daughter. Will admit patient for further evaluation treatment of COPD/bronchitis Differential Diagnosis Differential Diagnoses: The differential diagnosis associated with the presentation includes COPD, atrial fibrillation, aspiration Consult Healthcare Provider Management of the patient was discussed with: Hospitalist Lab Data MDM Lab Attestation statement: I reviewed the patient's lab results. 08/23/22 16:58 08/23/22 16:58 Labs: Lab Results 08/23/22 08/23/22 08/23/22 Range/Units 16:58 16:58 16:58 WBC 14.3 H (4.8-10.8) X10*3/uL RBC 3.30 L (4.20-5.50) X10*6/uL Hgb 10.4 L (12.0-16.0) g/dl Hct 30.8 L (37.0-47.0) % MCV 93.3 (80.0-98.0) fL MCH 31.5 (27.0-33.0) pg MCHC 33.8 (31.0-35.0) g/dl RDW 16.3 H (11.0-16.0) % Plt Count 157 L (160-400) X10*3/uL MPV 10.7 (9.4-12.3) fL Immature Gran % (Auto) 2.7 H (0.0-0.4) % Neut % (Auto) 84.7 H (45-73) % Lymph % (Auto) 8.1 L (20-40) % Dickinson % (Auto) 4.3 (2-11) % Eos % (Auto) 0.1 (0-4) % Baso % (Auto) 0.1 (0-2) % Lymph # (Auto) 1.2 (1.2-4.9) X10*3/uL Dickinson # (Auto) 0.6 (0.1-1.2) X10*3/uL Eos # (Auto) 0.0 (0.0-0.4) X10*3/uL Baso # (Auto) 0.0 (0.0-0.2) X10*3/uL Abs Immat Gran (auto) 0.38 H (0.00-0.03) X10*3/uL Absolute Neuts (auto) 12.1 H (2.0-8.3) x10*3/uL Absolute Nucleated RBC 0.000 (0.0-0.012) X10*3/uL Nucleated RBC % (auto) 0.0 (0.0-0.2) /100WBC Sodium 138 (135-145) mmol/L Potassium 4.2 (3.3-5.1) mmol/L Chloride 100 (96-108) mmol/L Carbon Dioxide 28 (22-29) mmol/L Anion Gap 14 (12-20) BUN 38 H (9-16) mg/dL Creatinine 1.45 H (0.5-1.4) mg/dL Estim Creat Clear Calc 23.5 Estimated GFR 34 Random Glucose 215 H (60-115) mg/dL Calcium 8.4 D (8.4-10.2) mg/dL Total Bilirubin 1.7 H (0.0-1.0) mg/dL Direct Bilirubin 0.4 (0.0-0.5) mg/dL AST 19 (5-31) U/L ALT 40 H (0-31) U/L Alkaline Phosphatase 102 (39-117) U/L Troponin I High Sens 54.0 H* (<3.5-17.0) ng/L B-Natriuretic Peptide (<100) pg/mL Total Protein 5.3 L (6.5-8.0) g/dL Albumin 3.3 L (3.5-5.0) g/dL Urine Color Urine Appearance Urine pH (5.0-9.0) Ur Specific Protection (1.005-1.025) Urine Protein (Neg-Trace) mg/dL Urine Glucose (UA) (Negative) mg/dL Urine Ketones (Negative) mg/dL Urine Blood (Negative) Urine Nitrite (Negative) Ur Leukocyte Esterase (Negative) Urine RBC (0-2) /HPF Urine WBC (0-5) /HPF Ur Squamous Epith Cells (0-2) /HPF Urine Bacteria (None Seen) Hyaline Casts (0-2) /LPF Influenza Type A (PCR) (Negative) Influenza Type B (PCR) (Negative) RSV RNA Qual (PCR) (Negative) SARS-CoV-2 RNA (RT-PCR) (Negative) 08/23/22 08/23/22 08/23/22 Range/Units 16:58 16:58 18:43 WBC (4.8-10.8) X10*3/uL RBC (4.20-5.50) X10*6/uL Hgb (12.0-16.0) g/dl Hct (37.0-47.0) % MCV (80.0-98.0) fL MCH (27.0-33.0) pg MCHC (31.0-35.0) g/dl RDW (11.0-16.0) % Plt Count (160-400) X10*3/uL MPV (9.4-12.3) fL Immature Gran % (Auto) (0.0-0.4) % Neut % (Auto) (45-73) % Lymph % (Auto) (20-40) % Dickinson % (Auto) (2-11) % Eos % (Auto) (0-4) % Baso % (Auto) (0-2) % Lymph # (Auto) (1.2-4.9) X10*3/uL Dickinson # (Auto) (0.1-1.2) X10*3/uL Eos # (Auto) (0.0-0.4) X10*3/uL Baso # (Auto) (0.0-0.2) X10*3/uL Abs Immat Gran (auto) (0.00-0.03) X10*3/uL Absolute Neuts (auto) (2.0-8.3) x10*3/uL Absolute Nucleated RBC (0.0-0.012) X10*3/uL Nucleated RBC % (auto) (0.0-0.2) /100WBC Sodium (135-145) mmol/L Potassium (3.3-5.1) mmol/L Chloride (96-108) mmol/L Carbon Dioxide (22-29) mmol/L Anion Gap (12-20) BUN (9-16) mg/dL Creatinine (0.5-1.4) mg/dL Estim Creat Clear Calc Estimated GFR Random Glucose (60-115) mg/dL Calcium (8.4-10.2) mg/dL Total Bilirubin (0.0-1.0) mg/dL Direct Bilirubin (0.0-0.5) mg/dL AST (5-31) U/L ALT (0-31) U/L Alkaline Phosphatase (39-117) U/L Troponin I High Sens (<3.5-17.0) ng/L B-Natriuretic Peptide 164 H (<100) pg/mL Total Protein (6.5-8.0) g/dL Albumin (3.5-5.0) g/dL Urine Color Yellow Urine Appearance Clear Urine pH 5.0 (5.0-9.0) Ur Specific Protection 1.010 (1.005-1.025) Urine Protein Negative (Neg-Trace) mg/dL Urine Glucose (UA) Negative (Negative) mg/dL Urine Ketones Negative (Negative) mg/dL Urine Blood Negative (Negative) Urine Nitrite Negative (Negative) Ur Leukocyte Esterase Trace H (Negative) Urine RBC 0-2 (0-2) /HPF Urine WBC 0-5 (0-5) /HPF Ur Squamous Epith Cells 0-2 (0-2) /HPF Urine Bacteria None Seen (None Seen) Hyaline Casts 3-5 (0-2) /LPF Influenza Type A (PCR) NEGATIVE (Negative) Influenza Type B (PCR) NEGATIVE (Negative) RSV RNA Qual (PCR) NEGATIVE (Negative) SARS-CoV-2 RNA (RT-PCR) NEGATIVE (Negative) Critical Care Time Critical Care Time Critical Care Time: Yes Total Critical Care Time: 40 Attestation: I have personally provided 40 minutes of critical care time exclusive of time spent on separately billable procedures. Time includes review of lab data, radiology results, discussion with consultants, and monitoring for potential decompensation. Interventions were performed as documented above Discharge Plan Discharge Clinical Impression: A-fib, COPD (chronic obstructive pulmonary disease) Patient Disposition: Admitted As Inpatient Prescriptions: No Action tobramycin in 0.225 % NaCl [John] 300 mg/5 mL solution for nebulization 300 mg inhalation BID 28 Days Qty: 280 6RF Rx Instructions: Take for 28 days as prescribed and then 28 days off furosemide 20 mg tablet 1 tab PO DAILY lisinopril 2.5 mg tablet 1 tab PO DAILY diltiazem HCl 240 mg Capsule,Extended Release 24hr 240 mg PO DAILY Qty: 30 0RF Protocol: Hold for SBP/HR < HOLD for SBP < : 90 HOLD for HR < : 60 Rx Instructions: replaces prior dose of 120 mg daily Anoro Ellipta 62.5-25 mcg/actuation blister with device 1 ea inhalation DAILY Eliquis 2.5 mg tablet 2.5 mg PO BID albuterol sulfate [Ventolin HFA] 90 mcg/actuation HFA aerosol inhaler 2 puff INHALATION Q4H PRN (Reason: Shortness Of Breath) prednisone 10 mg tablet 10 mg PO BID ferrous sulfate 325 mg (65 mg iron) tablet 325 mg PO DAILY docusate sodium 100 mg capsule 100 mg PO BEDTIME fluticasone propionate 50 mcg/actuation spray,suspension 1 spray intranasal BID montelukast 10 mg tablet 10 mg PO BEDTIME nitroglycerin 0.3 mg tablet, sublingual 0.3 mg sublingual Q5M PRN (Reason: Chest Pain) omeprazole 40 mg capsule,delayed release(DR/EC) 40 mg PO DAILY oxybutynin chloride 5 mg tablet extended release 24hr 5 mg PO DAILY tramadol 50 mg tablet 50 mg PO BID (DME) nebulizers Kit See Rx Instructions .ROUTE Rx Instructions: As directed levalbuterol HCl [Xopenex] 1.25 mg/3 mL solution for nebulization 1.25 mg inhalation QID 30 Days Qty: 360 11RF
--- NOTE | 2022-08-23 16:00 | ECG_ITS ---
Test Reason : sob Blood Pressure : / mmHG Vent. Rate : 122 BPM Atrial Rate : 357 BPM P-R Int : 000 ms QRS Dur : 096 ms QT Int : 320 ms P-R-T Axes : 000 025 210 degrees QTc Int : 456 ms Atrial fibrillation with RVR T wave abnormality, consider lateral ischemia Abnormal ECG When compared with ECG of 06-APR-2022 12:48, Non-specific change in ST segment in Inferior leads ST no longer depressed in Lateral leads Referred By: Heena Lozada Electronically Signed By:Swapnil Bassett
[2022-08-23] MEDS: Albuterol Sulfate (0.083%) 2.5 MG/3 ML VIAL.NEB INHALE (16:28)
[2022-08-23 16:30] VITALS: PULSE 71; RESP 20; O2SAT 90
[2022-08-23 17:04] LABS: MANUAL DIFF FLAG NO
[2022-08-23 17:06] LABS: Basophils Percent Auto 0.1 % (0-2); Eosinophils Percent Auto 0.1 % (0-4); Hematocrit 30.8 % (37.0-47.0); Hemoglobin 10.4 g/dl (12.0-16.0); Imm Gran Abs Auto 0.38 X10*3/uL (0.00-0.03); Imm Gran Pct Auto 2.7 % (0.0-0.4); Lymphocytes Absolute Auto 1.2 X10*3/uL (1.2-4.9); Lymphocytes Percent Auto 8.1 % (20-40); Mean Corpuscular HGB Conc 33.8 g/dl (31.0-35.0); Mean Corpuscular Hemoglobin 31.5 pg (27.0-33.0); Mean Corpuscular Volume 93.3 fL (80.0-98.0); Mean Platelet Volume 10.7 fL (9.4-12.3); Monocytes Absolute Auto 0.6 X10*3/uL (0.1-1.2); Monocytes Percent Auto 4.3 % (2-11); Neutrophils Absolute Auto 12.1 x10*3/uL (2.0-8.3); Neutrophils Percent Auto 84.7 % (45-73); Platelet Count 157 X10*3/uL (160-400); Red Cell Distribution Width 16.3 % (11.0-16.0); White Blood Count 14.3 X10*3/uL (4.8-10.8)
[2022-08-23] MEDS: methylPREDNISolone Sod Succ 125 MG/2 ML VIAL IVPUSH (17:09)
[2022-08-23] MEDS: Metoprolol Tartrate 5 MG/5 ML VIAL 2.5 MG IVPUSH ×2 (17:09→18:46)
[2022-08-23] MEDS: cefEPime HCl 1 GM in 0.9 % Sodium Chloride 50 ML IV (17:09)
[2022-08-23 17:20] LABS: Alanine Aminotransferase 40 U/L (0-31); Albumin Level 3.3 g/dL (3.5-5.0); Alkaline Phosphatase 102 U/L (39-117); Anion Gap 14 (12-20); Aspartate Amino Transferase 19 U/L (5-31); Bilirubin Direct 0.4 mg/dL (0.0-0.5); Bilirubin Total 1.7 mg/dL (0.0-1.0); Blood Urea Nitrogen 38 mg/dL (9-16); Calcium 8.4 mg/dL (8.4-10.2); Carbon Dioxide 28 mmol/L (22-29); Chloride 100 mmol/L (96-108); Creatinine Clr Calc Pharmacy 23.5; Estimated Glomerular Filt Rate 34; Glucose Random 215 mg/dL (60-115); Potassium 4.2 mmol/L (3.3-5.1); Sodium 138 mmol/L (135-145); Total Protein 5.3 g/dL (6.5-8.0)
[2022-08-23 17:26] LABS: B Type Natriuretic Peptide 164 pg/mL (<100)
[2022-08-23 17:46] LABS: Influenza A PCR NEGATIVE (Negative); Influenza B PCR NEGATIVE (Negative); Resp Syncy Virus RNA Qual PCR NEGATIVE (Negative); SARS COV2 PCR INHOUSE NEGATIVE (Negative)
--- NOTE | 2022-08-23 17:55 | PHA.MEDREC ---
Pharmacy Consult ? Medication Reconciliation Pharmacy has completed the medication reconciliation.
[2022-08-23 18:56] LABS: Appearance Urine Clear; Color Urine Yellow; Glucose Urine UA Negative (Negative); Leukocyte Esterase Urine Trace (Negative); Nitrite Urine Negative (Negative); UMIC TRIGGER UACC YES; Urine Blood Negative (Negative); Urine Ketones Negative (Negative); Urine Protein Negative (Neg-Trace)
[2022-08-23 19:01] LABS: Bacteria Urine None Seen (None Seen); RBC Urine 0-2 /HPF (0-2); Squamous Epithelial Cell Urine 0-2 /HPF (0-2); WBC Urine 0-5 /HPF (0-5)
--- NOTE | 2022-08-23 19:26 | P.HPHOSP_ITS ---
History of Present Illness Date of Service: 08/23/22 Attending physician on admission: Caridad Rodriguez Chief Complaint: sob 81-year-old female with COPD, history of pseudomonal pneumonia, coronary artery disease, paroxysmal atrial fibrillation anticoagulated with Eliquis, congestive heart failure presented to the ED earlier today for evaluation of increased coughing and shortness of breath with increased demand for oxygen. She is not oxygen dependent at home but has been satting in the 80s on room air. She has a chronic productive cough, unchanged from baseline. Continues following with pulmonology for ongoing management of pseudomonal pneumonia and uses inhaled tobramycin for 28 days at a time, having completed most recent cycle 2 days ago. She is reporting generalized weakness and fatigue and feels her legs may be swollen. Her daughter reports she stopped her mother's eliquis after it was resume by hematology 5 days ago because she thought it was contirbuting to her symptoms. On arrival, patient noted to be desatting into the 80s with movement and talking and was placed on nasal cannula but has since been weaned from this. Was tachycardic to 118 with EKG showing atrial flutter. There is a leukocytosis of 14.3. Stable normocytic anemia with H/H of 10.4/30.8%, though has slightly dropped from 12.3/37.2% last month. Creatinine 1.45, BUN 38. Electrolyte levels normal. Troponins flat. BNP consistent with baseline at 164. Urinalysis unremarkable. Negative for COVID-19, influenza, RSV. Head CT is without any acute intracranial abnormality but does show volume loss and mild chronic white matter microangiopathy. No acute intracranial hemorrhage or terr itorial infarction though the possibility of focal acute ischemic process cannot be ruled out on the basis of this study. CT chest showing minimally displaced posterior right 11th rib fracture and possible nondisplaced posterior right 12th rib fracture as well as multiple vertebral body compression deformities which are age indeterminate. There is an incidentally found 2.1 cm nodular density at the pancreatic tail not previously demonstrated on imaging. There is also bronchiectases of the lower lobes bilaterally with bronchial filling defects particularly in the left lower lobe with adjacent opacities, consider aspriation. Review of Systems Review of Systems: Yes all other systems are reviewed and are negative [facility] Medical History (Updated 08/23/22 @ 21:15 by SANDY Chirinos) Acute encephalopathy Acute hypokalemia Acute respiratory failure with hypoxia Anemia Anemia Aspiration pneumonia Atrial fibrillation with RVR Bronchiectasis CAD (coronary artery disease) Chronic dyspnea COPD (chronic obstructive pulmonary disease) GI bleed Pseudomonal pneumonia Pseudomonas respiratory infection Pulmonary nodules Family History Other No family history of cancer Surgical History History of cholecystectomy History of hip replacement History of knee replacement History of quadruple bypass Social History Household Members: Family and Children Housing: House Are you a primary hemodialysis patient care specialist to a significant other at home: No Do you presently have visiting nurse or other home services: Yes Alcohol intake: never Patient Tobacco Use Status: Former Tobacco user Advance Directives: No Advance Directives Information Provided: Yes service: No Current occupational status: retired [employer] Allergies Allergy/AdvReac Type Severity Reaction Status Date / Time carvedilol Allergy Shortness Verified 07/26/22 10:16 of Breath sertraline [From Zoloft] Allergy Shortness Verified 07/26/22 10:16 of Breath spironolactone Allergy Shortness Verified 07/26/22 10:16 of Breath Active Medications: Current Medications Pharmacy Consult (Consult Rx Perform Med Rec) 1 each MISCELLANE ONCE PRN PRN Reason: Consult order Home Medications Medication Instructions Recorded Confirmed Last Taken Type docusate sodium 100 mg capsule 100 mg PO BEDTIME 03/22/22 08/23/22 08/22/22 History fluticasone propionate 50 1 spray intranasal BID 03/22/22 08/23/22 08/22/22 History mcg/actuation nasal spray,suspension montelukast 10 mg tablet 10 mg PO BEDTIME 03/22/22 08/23/22 08/22/22 History nebulizers 03/22/22 07/04/22 Unknown History nitroglycerin 0.3 mg sublingual 0.3 mg sublingual Q5M PRN Chest 03/22/22 08/23/22 Unknown History tablet Pain omeprazole 40 mg capsule,delayed 40 mg PO DAILY 03/22/22 08/23/22 08/23/22 History release oxybutynin chloride 5 mg 5 mg PO DAILY 03/22/22 08/23/22 08/23/22 History tablet,extended release 24 hr tramadol 50 mg tablet 50 mg PO BID 03/22/22 08/23/22 08/23/22 History furosemide 20 mg tablet 1 tab PO DAILY 04/06/22 08/23/22 08/23/22 History lisinopril 2.5 mg tablet 1 tab PO DAILY 04/06/22 08/23/22 08/23/22 History umeclidinium 62.5 mcg-vilanterol 1 ea inhalation DAILY 05/24/22 08/23/22 08/23/22 History 25 mcg/actuation powdr for inhalation (Anoro Ellipta) apixaban 2.5 mg tablet (Eliquis) 2.5 mg PO BID 08/04/22 08/23/22 08/21/22 History albuterol sulfate 90 mcg/actuation 2 puff inhalation Q4H PRN 08/23/22 08/23/22 Unknown History aerosol inhaler (Ventolin HFA) Shortness Of Breath ferrous sulfate 325 mg (65 mg 325 mg PO DAILY 08/23/22 08/23/22 08/23/22 History iron) tablet prednisone 10 mg tablet 10 mg PO BID 08/23/22 08/23/22 08/23/22 History Physical Exam Vital Signs and Narrative: Vital Signs: Last Vital Signs Temp 98.7 F 08/23/22 15:06 Pulse 71 08/23/22 16:30 Resp 20 08/23/22 16:30 BP 135/115 H 08/23/22 15:06 Pulse Ox 96 08/23/22 15:06 O2 Del Method 08/23/22 15:06 Oxygen Flow Rate 4 08/23/22 15:06 BMI result Body Mass Index 30.3 Constitutional - Awake and Alert, No apparent distress Eyes - PERRLA, EOMI Cardiovascular - S1S2, RRR, No edema Respiratory - Normal lung expansion, Normal respiratory effort, No respiratory distress, bilateral lower lobe rhonchi and scattered expiratory wheezing Gastrointestinal - NT / ND; +BS; No rebound or guarding Extremities - no calf tenderness bilaterally, no swelling Skin - Warm/Dry Neurological - Alert & oriented x3, CN II-XII in tact, 5/5 strength BUE and BLE Psychological - Appropriate affect Results Labs 08/23/22 16:58 08/23/22 16:58 Labs: Laboratory Results - last 24 hr 08/23/22 08/23/22 08/23/22 16:58 16:58 16:58 MCV 93.3 MCH 31.5 MCHC 33.8 RDW 16.3 H Plt Count 157 L MPV 10.7 Immature Gran % (Auto) 2.7 H Neut % (Auto) 84.7 H Lymph % (Auto) 8.1 L [place] % (Auto) 4.3 Eos % (Auto) 0.1 Baso % (Auto) 0.1 Lymph # (Auto) 1.2 [place] # (Auto) 0.6 Eos # (Auto) 0.0 Baso # (Auto) 0.0 Abs Immat Gran (auto) 0.38 H Absolute Neuts (auto) 12.1 H Absolute Nucleated RBC 0.000 Nucleated RBC % (auto) 0.0 Anion Gap 14 Estim Creat Clear Calc 23.5 Estimated GFR 34 Random Glucose 215 H Calcium 8.4 D Total Bilirubin 1.7 H Direct Bilirubin 0.4 AST 19 ALT 40 H Alkaline Phosphatase 102 Troponin I High Sens 54.0 H* B-Natriuretic Peptide Total Protein 5.3 L Albumin 3.3 L Urine Color Urine Appearance Urine pH Ur Specific [place] Urine Protein Urine Glucose (UA) Urine Ketones Urine Blood Urine Nitrite Ur Leukocyte Esterase Urine RBC Urine WBC Ur Squamous Epith Cells Urine Bacteria Hyaline Casts Influenza Type A (PCR) Influenza Type B (PCR) RSV RNA Qual (PCR) SARS-CoV-2 RNA (RT-PCR) 08/23/22 08/23/22 08/23/22 16:58 16:58 18:43 MCV MCH MCHC RDW Plt Count MPV Immature Gran % (Auto) Neut % (Auto) Lymph % (Auto) [place] % (Auto) Eos % (Auto) Baso % (Auto) Lymph # (Auto) [place] # (Auto) Eos # (Auto) Baso # (Auto) Abs Immat Gran (auto) Absolute Neuts (auto) Absolute Nucleated RBC Nucleated RBC % (auto) Anion Gap Estim Creat Clear Calc Estimated GFR Random Glucose Calcium Total Bilirubin Direct Bilirubin AST ALT Alkaline Phosphatase Troponin I High Sens B-Natriuretic Peptide 164 H Total Protein Albumin Urine Color Yellow Urine Appearance Clear Urine pH 5.0 Ur Specific [place] 1.010 Urine Protein Negative Urine Glucose (UA) Negative Urine Ketones Negative Urine Blood Negative Urine Nitrite Negative Ur Leukocyte Esterase Trace H Urine RBC 0-2 Urine WBC 0-5 Ur Squamous Epith Cells 0-2 Urine Bacteria None Seen Hyaline Casts 3-5 Influenza Type A (PCR) NEGATIVE Influenza Type B (PCR) NEGATIVE RSV RNA Qual (PCR) NEGATIVE SARS-CoV-2 RNA (RT-PCR) NEGATIVE Imaging Radiologist's Impressions: Impressions Abdomen/Pelvis CT 08/23/22 16:34 IMPRESSION: 1. Minimally displaced posterior right 11th rib fracture, acute. Possible nondisplaced posterior right 12th rib fracture. 2. Multiple vertebral body compression deformities are seen, which are age indeterminate. The T9 compression deformity has progressed from the 2021 study. 3. 2.1 cm nodular density at the pancreatic tail. This is not clearly seen on the study from 04/06/2022. This could represent a pancreatic mass. Consider nonemergent MRI evaluation. 4. Prominent umbilical hernia containing a portion of small bowel. No obstruction. 5. Bronchiectasis at the lower lobes with bronchial filling defects, particularly in the left lower lobe with adjacent opacities. Aspiration possible. Chest CT 08/23/22 16:34 IMPRESSION: 1. Minimally displaced posterior right 11th rib fracture, acute. Possible nondisplaced posterior right 12th rib fracture. 2. Multiple vertebral body compression deformities are seen, which are age indeterminate. The T9 compression deformity has progressed from the 2021 study. 3. 2.1 cm nodular density at the pancreatic tail. This is not clearly seen on the study from 04/06/2022. This could represent a pancreatic mass. Consider nonemergent MRI evaluation. 4. Prominent umbilical hernia containing a portion of small bowel. No obstruction. 5. Bronchiectasis at the lower lobes with bronchial filling defects, particularly in the left lower lobe with adjacent opacities. Aspiration possible. Head CT 08/23/22 16:34 IMPRESSION: Limited study with motion artifacts. Moderate diffuse parenchymal volume loss and mild chronic white matter microangiopathy. No acute intracranial hemorrhage or territorial infarction. The possibility of a focal acute ischemic process cannot be ruled out on the basis of this study. Assessment and Plan (1) A-fib: Status: Acute (2) COPD (chronic obstructive pulmonary disease): Status: Acute 81-year-old female with COPD, history of pseudomonal pneumonia, coronary artery disease, paroxysmal atrial fibrillation anticoagulated with Eliquis, congestive heart failure admitted for COPD exacerbation, aspiration pneumonia, and atrial fibrillation with RVR. # COPD exacerbation with aspiration pneumonia -CT chest showing bronchiectasis of the lower lobes with probable aspiration pneumonia -negative for COVID-19, RSV, influenza. Full respiratory viral panel pending -methylprednisolone 60 mg IV b.i.d. -levalbuterol/ipratropium nebs q.4h while awake (avoid albuterol per patient's daughter request) -given history of pseudomonal pneumonia for which he is currently being treated with tobramycin x 28 days but is off cycle for next 26 days, will treat with IV Zosyn 4 5 g q.8 H x5 days (initiated 08/23) -no hypoxia # paroxysmal atrial fibrillation with RVR -2.5 mg Lopressor push -monitor on telemetry -resume Eliquis 2.5 mg b.i.d. for anticoagulation -continue p.o. diltiazem -admit to telemetry -cardiology consult # congestive heart failure, unspecified ejection fraction -no acute exacerbation. BNP baseline -continue p.o. Lasix # chronic normocytic anemia -follows outpatient with Dr. Damian -H/H with slight drop from baseline since Eliquis resumed but still stable at 10.4/30.8%-above transfusion threshold -follow CBC -continue ferrous sulfate # CAD-no anginal chest pain -troponins flat -EKG without any ST or ST depressions DVT prophylaxis-on Eliquis Full code Patient requires inpatient stay of at least 2 midnights for management of COPD exacerbation with aspiration pneumonia requiring pseudomonal coverage given history of pseudomonal pneumonia, IV steroids, and close monitoring given atrial fibrillation with RVR noted in the ED. (3) Aspiration pneumonia: Status: Acute Time Spent With Patient Time: Total time managing care of this patient today ____ minutes. Quality Stroke Does the patient have a stroke diagnosis?: No VTE Prior VTE?: No VTE Risk Level:: Medical - moderate - high VTE Device Contraindication: Treatment Not Indicated VTE Drug Contraindication: N/A - Med Ordered
[2022-08-23 19:52] LABS: Lactic Acid 1.6 mmol/L (0.5-2.0)
[2022-08-23 20:09] LABS: Troponin-I High Sensitivity 58.4 ng/L (<3.5-17.0)
--- NOTE | 2022-08-23 21:31 | MHC.EDTECH ---
daughter's number [phone]
[2022-08-23 21:54] VITALS: BP 134/54; PULSE 104; RESP 19; O2SAT 95
--- NOTE | 2022-08-23 21:59 | MHC.CM.PN ---
IMM 08/23. CM met with admitted patient with bed assignment pending. A&Ox3. Lives with daughter. Uses a walker. Daughter gives her her medications. Pt has pseudomal Pneumonia and is on inhaled tobramycin for 28 day cycle. Currently off cycle for 2 days. Weekly nursing from [facility]. Has COPD, no home oxygen. Covid vax x3. 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 HCP at home. Copy requested. States PCP has copy. HCP/daughter Ximena Coreas ([phone]). States her legs have been weak for past 3 days. Discussed possibility for PT evaluation and possible PT/STR. Pt unsure if she would go to rehab. Wants home. D/C plan: home w/o services, but will need to re-evaluate plan at [facility]'s. No referrals placed at this time. Family will transport. CM will follow for discharge planning.
[2022-08-23] MEDS: Docusate Sodium 100 MG CAPSULE PO (22:26)
[2022-08-23] MEDS: Apixaban 2.5 MG TABLET PO (22:26)
[2022-08-23] MEDS: traMADoL HCL 50 MG TABLET PO (22:26)
[2022-08-23] MEDS: methylPREDNISolone Sod Succ 125 MG/2 ML VIAL 60 MG IVPUSH (22:27)
[2022-08-23] MEDS: Montelukast Sodium 10 MG TABLET PO (22:27)
[2022-08-23] MEDS: Piperacillin Sodium/Tazobactam 4.5 GM in 0.9 % Sodium Chloride 100 ML IV (22:28)
[2022-08-23] MEDS: Fluticasone Propionate Nasal 16 GM SPRAY 1 SPRAY NOSTRIL-B (22:47)
[2022-08-24] VITALS (13 sets, daily range): BP systolic 120–155; BP diastolic 63–92; PULSE 67–131; RESP 20–28; TEMP 36.3–37; O2SAT 93–99
[2022-08-24] MEDS: 0.9 % Sodium Chloride Flush 3 ML SYRINGE IVFLUSH ×4 (00:47→20:13)
--- NOTE | 2022-08-24 03:14 | PC.NURSE ---
Pt A&Ox3, reports 7/10 R lower back pain r/t slipping off chair at home, states pain worsens with movement. Pt has large purple bruising to R upper hip are, and some bruising to lower legs with edema bilaterally. Pt reports dry cough with some sputum production at times. Denies CP/palpitations but reports heavy feeling while breathing at times. Pt sitting up in stretcher, 02 sat 97% on RA, RR 18, appears to have WOB when speaking in a couple sentences. Lung sounds diminished with Rhonchi noted to upper airway. Pt reported some lower leg pain, Pt repositioned. Purewhick in place.
[2022-08-24] MEDS: Piperacillin Sodium/Tazobactam 4.5 GM in 0.9 % Sodium Chloride 100 ML IV ×3 (05:50→21:56)
[2022-08-24 06:20] LABS: MANUAL DIFF FLAG NO
[2022-08-24 06:29] LABS: Basophils Percent Auto 0.1 % (0-2); Hematocrit 30.9 % (37.0-47.0); Hemoglobin 10.4 g/dl (12.0-16.0); Imm Gran Abs Auto 0.44 X10*3/uL (0.00-0.03); Imm Gran Pct Auto 3.7 % (0.0-0.4); Lymphocytes Absolute Auto 0.9 X10*3/uL (1.2-4.9); Lymphocytes Percent Auto 7.3 % (20-40); Mean Corpuscular HGB Conc 33.7 g/dl (31.0-35.0); Mean Corpuscular Volume 92.2 fL (80.0-98.0); Mean Platelet Volume 11.2 fL (9.4-12.3); Monocytes Absolute Auto 0.3 X10*3/uL (0.1-1.2); Monocytes Percent Auto 2.1 % (2-11); Neutrophils Absolute Auto 10.4 x10*3/uL (2.0-8.3); Neutrophils Percent Auto 86.8 % (45-73); Platelet Count 141 X10*3/uL (160-400); Red Blood Count 3.35 X10*6/uL (4.20-5.50)
[2022-08-24] MEDS: Acetaminophen 325 MG TABLET 650 MG PO (06:30)
[2022-08-24 06:48] LABS: Anion Gap 16 (12-20); Blood Urea Nitrogen 35 mg/dL (9-16); Calcium 8.4 mg/dL (8.4-10.2); Carbon Dioxide 25 mmol/L (22-29); Chloride 101 mmol/L (96-108); Creatinine Clr Calc Pharmacy 26.1; Estimated Glomerular Filt Rate 39; Glucose Random 337 mg/dL (60-115); Sodium 137 mmol/L (135-145)
[2022-08-24] MEDS: Ipratropium Bromide 0.5 MG/2.5 ML SOLUTION INHALE ×4 (07:35→21:01)
[2022-08-24] MEDS: traMADoL HCL 50 MG TABLET PO ×2 (07:44→20:12)
[2022-08-24] MEDS: Apixaban 2.5 MG TABLET PO ×2 (07:44→20:11)
[2022-08-24] MEDS: Omeprazole 40 MG CAPSULE.DR PO (07:44)
[2022-08-24] MEDS: oxyBUTYnin chloride ER 5 MG TAB.ER.24 PO (07:45)
[2022-08-24] MEDS: Furosemide 20 MG TABLET PO (07:45)
[2022-08-24] MEDS: Ferrous Sulfate 324 MG TABLET.DR PO (07:45)
[2022-08-24] MEDS: lisinopriL 2.5 MG TABLET PO (07:45)
[2022-08-24] MEDS: methylPREDNISolone Sod Succ 125 MG/2 ML VIAL 60 MG IVPUSH ×2 (07:47→20:12)
[2022-08-24] MEDS: dilTIAZem HCL CD 240 MG CAP.ER.DEG PO (08:32)
[2022-08-24 09:41] LABS: Adenovirus PCR Not Detected (Not Detect.); Bordetella parapertussis PCR Not Detected (Not Detect.); Bordetella pertussis PCR Not Detected (Not Detect.); Chlamydia pneumoniae PCR Not Detected (Not Detect.); Coronavirus 229E PCR Not Detected (Not Detect.); Coronavirus HKU1 PCR Not Detected (Not Detect.); Coronavirus NL63 PCR Not Detected (Not Detect.); Coronavirus OC43 PCR Not Detected (Not Detect.); Human metapneumovirus PCR Not Detected (Not Detect.); Influenza A PCR Not Detected (Not Detect.); Influenza B PCR Not Detected (Not Detect.); Mycoplasma pneumoniae PCR Not Detected (Not Detect.); Parainfluenza 1 PCR Not Detected (Not Detect.); Parainfluenza 2 PCR Not Detected (Not Detect.); Parainfluenza 3 PCR Not Detected (Not Detect.); Parainfluenza 4 PCR Not Detected (Not Detect.); RSV PCR Not Detected (Not Detect.); Rhino/Enterovirus PCR Not Detected (Not Detect.); SARS-CoV-2 PCR Not Detected (Not Detect.)
[2022-08-24] MEDS: Fluticasone Propionate Nasal 16 GM SPRAY 1 SPRAY NOSTRIL-B ×2 (09:55→21:53)
--- NOTE | 2022-08-24 09:56 | PC.NURSE ---
patient a&ox3, monitor technician intact- afib on monitor, pt lungs clear/diminished, BLE shantal stasus, scattered ecchyosis throughout, pure wick intact, pt requests meds whole in pudding or applesauce, daughter called and updated with ok of patient, call nur within reach, will continue to monitor
[2022-08-24] MEDS: Metoprolol Tartrate 5 MG/5 ML VIAL 2.5 MG IVPUSH (10:34)
--- NOTE | 2022-08-24 11:01 | P.CONCA_ITS ---
History of Present Illness History of Present Illness Date of Service: 08/24/22 Requesting physician: Gus Bradshaw Chief complaint: Afib rvr, aspiration pneumonia Narrative: 81-year-old female with history of COPD presenting with aspiration pneumonia in AFib with RVR. She previously was in sinus rhythm but over the last couple of days she was coughing and Apple watch showed atrial fibrillation. She follows up with Dr. Coto at [facility]. She has been off and on Eliquis because of previous GI bleeding. Recently restarted Eliquis in the last few da ys at 2.5 mg twice a day. She has bruising on her legs and arms. No significant GI or bleed reported by the patient. She was coughing and was short of breath. She has lung disease and chronic pseudomonal infection and has been getting tobramycin inhaled every other month. She follows up closely with Dr. Aldana. Denying any chest pain or palpitations. Telemetry is showing AFib with RVR. [facility] Past Medical History Medical History (Updated 08/23/22 @ 21:15 by SANDY Chirinos) Acute encephalopathy Acute hypokalemia Acute respiratory failure with hypoxia Anemia Anemia Aspiration pneumonia Atrial fibrillation with RVR Bronchiectasis CAD (coronary artery disease) Chronic dyspnea COPD (chronic obstructive pulmonary disease) GI bleed Pseudomonal pneumonia Pseudomonas respiratory infection Pulmonary nodules Family History Family History Other No family history of cancer Surgical History Surgical History History of cholecystectomy History of hip replacement History of knee replacement History of quadruple bypass Social History Social History Household Members: Family and Children Housing: House Are you a primary rn homecare to a significant other at home: No Do you presently have visiting nurse or other home services: Yes Alcohol intake: never Patient Tobacco Use Status: Former Tobacco user Smoked in Last 30 Days: No Use of substances other than those prescribed or required for medical reasons: No Advance Directives: No Advance Directives Information Provided: Yes Nutrition Risks: No Nutritional Risk service: No Current occupational status: retired Meds Allergies Allergy/AdvReac Type Severity Reaction Status Date / Time carvedilol Allergy Shortness Verified 07/26/22 10:16 of Breath sertraline [From Zoloft] Allergy Shortness Verified 07/26/22 10:16 of Breath spironolactone Allergy Shortness Verified 07/26/22 10:16 of Breath Active Medications: Current Medications Acetaminophen (Acetaminophen 325 Mg Tablet) 650 mg PO Q6H PRN PRN Reason: Pain, Mild (Pain Scale 1-3) Last Admin: 08/24/22 06:30 Dose: 650 mg Apixaban (Apixaban 2.5 Mg Tablet) 2.5 mg PO BID [facility] Last Admin: 08/24/22 07:44 Dose: 2.5 mg Diltiazem HCl (Diltiazem Hcl Cd 240 Mg Cap.Er.Deg) 240 mg PO DAILY [facility]; Protocol Last Admin: 08/24/22 08:32 Dose: 240 mg Docusate Sodium (Docusate Sodium 100 Mg Capsule) 100 mg PO DAILY PRN PRN Reason: Constipation Docusate Sodium (Docusate Sodium 100 Mg Capsule) 100 mg PO BEDTIME [facility] Last Admin: 08/23/22 22:26 Dose: 100 mg Ferrous Sulfate (Ferrous Sulfate 324 Mg Tablet.Dr) 324 mg PO DAILY [facility] Last Admin: 08/24/22 07:45 Dose: 324 mg Fluticasone Propionate (Fluticasone Propionate Nasal 16 Gm Norco) 1 spray NOSTRIL-B BID [facility] Last Admin: 08/24/22 09:55 Dose: 1 spray Furosemide (Furosemide 20 Mg Tablet) 20 mg PO DAILY [facility]; Protocol Last Admin: 08/24/22 07:45 Dose: 20 mg Piperacillin Sod/Tazobactam (Sod 4.5 gm/ Sodium Chloride) 100 mls @ 200 mls/hr IV Q8H [facility] Last Infusion: 08/24/22 06:22 Dose: Infused Ipratropium Severance (Ipratropium Severance 0.5 Mg/2.5 Ml Solution) 0.5 mg INHALE RQ4H WHILE AWAKE [facility] Last Admin: 08/24/22 11:00 Dose: 0.5 mg Levalbuterol HCl (Levalbuterol Hcl 1.25 Mg/0.5 Ml Vial.Neb) 1.25 mg INHALE RQ4H WHILE AWAKE [facility] Last Admin: 08/24/22 10:59 Dose: 1.25 mg Lisinopril (Lisinopril 2.5 Mg Tablet) 2.5 mg PO DAILY [facility]; Protocol Last Admin: 08/24/22 07:45 Dose: 2.5 mg Methylprednisolone Sodium Succinate (Methylprednisolone Sod Succ 125 Mg/2 Ml Vial) 60 mg IVPUSH Q12H [facility] Last Admin: 08/24/22 07:47 Dose: 60 mg Montelukast Sodium (Montelukast Sodium 10 Mg Tablet) 10 mg PO BEDTIME [facility] Last Admin: 08/23/22 22:27 Dose: 10 mg Non-Formulary Medication (Umeclidinium-Vilanterol [Anoro Ellipta]) 1 each INHALE DAILY [facility] Omeprazole (Omeprazole 40 Mg Capsule.Dr) 40 mg PO DAILY@0630 [facility] Last Admin: 08/24/22 07:44 Dose: 40 mg Ondansetron HCl (Ondansetron Hcl 4 Mg/2 Ml Vial) 4 mg IVPUSH Q8H PRN PRN Reason: Nausea and Vomiting Oxybutynin Chloride (Oxybutynin Chloride Er 5 Mg Tab.Er.24) 5 mg PO DAILY [facility] Last Admin: 08/24/22 07:45 Dose: 5 mg Pharmacy Consult (Consult Rx Perform Med Rec) 1 each MISCELLANE ONCE PRN PRN Reason: Consult order Sodium Chloride (0.9 % Sodium Chloride Flush 3 Ml Syringe) 3 ml IVFLUSH QSHIFT [facility] Last Admin: 08/24/22 07:46 Dose: 3 ml Tramadol HCl (Tramadol Hcl 50 Mg Tablet) 50 mg PO BID [facility] Last Admin: 08/24/22 07:44 Dose: 50 mg Home Medications Medication Instructions Recorded Confirmed Last Taken Type docusate sodium 100 mg capsule 100 mg PO BEDTIME 03/22/22 08/23/22 08/22/22 History fluticasone propionate 50 1 spray intranasal BID 03/22/22 08/23/22 08/22/22 History mcg/actuation nasal spray,suspension montelukast 10 mg tablet 10 mg PO BEDTIME 03/22/22 08/23/22 08/22/22 History nebulizers 03/22/22 07/04/22 Unknown History nitroglycerin 0.3 mg sublingual 0.3 mg sublingual Q5M PRN Chest 03/22/22 08/23/22 Unknown History tablet Pain omeprazole 40 mg capsule,delayed 40 mg PO DAILY 03/22/22 08/23/22 08/23/22 History release oxybutynin chloride 5 mg 5 mg PO DAILY 03/22/22 08/23/22 08/23/22 History tablet,extended release 24 hr tramadol 50 mg tablet 50 mg PO BID 03/22/22 08/23/22 08/23/22 History furosemide 20 mg tablet 1 tab PO DAILY 04/06/22 08/23/22 08/23/22 History lisinopril 2.5 mg tablet 1 tab PO DAILY 04/06/22 08/23/22 08/23/22 History umeclidinium 62.5 mcg-vilanterol 1 ea inhalation DAILY 05/24/22 08/23/22 08/23/22 History 25 mcg/actuation powdr for inhalation (Anoro Ellipta) apixaban 2.5 mg tablet (Eliquis) 2.5 mg PO BID 08/04/22 08/23/22 08/21/22 History albuterol sulfate 90 mcg/actuation 2 puff inhalation Q4H PRN 08/23/22 08/23/22 Unknown History aerosol inhaler (Ventolin HFA) Shortness Of Breath ferrous sulfate 325 mg (65 mg 325 mg PO DAILY 08/23/22 08/23/22 08/23/22 History iron) tablet prednisone 10 mg tablet 10 mg PO BID 08/23/22 08/23/22 08/23/22 History Physical Exam Vital Signs: Vital Signs: Last Vital Signs Temp 982 F H 08/24/22 10:36 Pulse 104 H 08/24/22 11:00 Resp 21 H 08/24/22 11:00 BP 138/82 08/24/22 10:36 Pulse Ox 98 08/24/22 10:36 O2 Del Method 08/24/22 10:36 Oxygen Flow Rate 4 08/23/22 15:06 BMI result Body Mass Index 30.3 GENERAL APPEARANCE: in no acute distress, pleasant. NECK: no carotid bruit, no jugular venous distention. SKIN: no suspicious lesions, warm and dry. HEART: no murmurs, irregular rate and rhythm. Tachycardic LUNGS: Mild expiratory wheezes. ABDOMEN: soft, nontender. EXTREMITIES: no edema. PERIPHERAL PULSES: equal. NEUROLOGIC: No gross deficits, AAO X 3 Objective Labs and Meds 08/24/22 05:40 08/24/22 05:40 Lab results: Laboratory Results - last 24 hr 08/23/22 08/23/22 08/23/22 16:58 16:58 16:58 WBC 14.3 H RBC 3.30 L Hgb 10.4 L Hct 30.8 L MCV 93.3 MCH 31.5 MCHC 33.8 RDW 16.3 H Plt Count 157 L MPV 10.7 Immature Gran % (Auto) 2.7 H Neut % (Auto) 84.7 H Lymph % (Auto) 8.1 L Rush % (Auto) 4.3 Eos % (Auto) 0.1 Baso % (Auto) 0.1 Lymph # (Auto) 1.2 Rush # (Auto) 0.6 Eos # (Auto) 0.0 Baso # (Auto) 0.0 Abs Immat Gran (auto) 0.38 H Absolute Neuts (auto) 12.1 H Absolute Nucleated RBC 0.000 Nucleated RBC % (auto) 0.0 Sodium 138 Potassium 4.2 Chloride 100 Carbon Dioxide 28 Anion Gap 14 BUN 38 H Creatinine 1.45 H Estim Creat Clear Calc 23.5 Estimated GFR 34 Random Glucose 215 H Lactic Acid Calcium 8.4 D Total Bilirubin 1.7 H Direct Bilirubin 0.4 AST 19 ALT 40 H Alkaline Phosphatase 102 Troponin I High Sens 54.0 H* B-Natriuretic Peptide Total Protein 5.3 L Albumin 3.3 L Urine Color Urine Appearance Urine pH Ur Specific [place] Urine Protein Urine Glucose (UA) Urine Ketones Urine Blood Urine Nitrite Ur Leukocyte Esterase Urine RBC Urine WBC Ur Squamous Epith Cells Urine Bacteria Hyaline Casts Respiratory Panel Paez Adenovirus (Rapid PCR) B.pert (TEM-PCR) B.parapertussis DNA PCR C. pneumoniae DNA (PCR) Coronavirus OC43 (PCR) Coronavirus HKU1 (PCR) Coronavirus 229E (PCR) Coronavirus NL63 (PCR) Human Metapneumovir PCR Influenza A (RT-PCR) Influenza Type A (PCR) Influenza B (RT-PCR) Influenza Type B (PCR) M. pneumoniae (PCR) Parainfluenza 1 (PCR) Parainfluenza 2 (PCR) Parainfluenza 3 (PCR) Parainfluenza 4 (PCR) RSV (PCR) RSV RNA Qual (PCR) Entero/Rhino (PCR) SARS-CoV-2 RNA (RT-PCR) 08/23/22 08/23/22 08/23/22 16:58 16:58 16:58 WBC RBC Hgb Hct MCV MCH MCHC RDW Plt Count MPV Immature Gran % (Auto) Neut % (Auto) Lymph % (Auto) Rush % (Auto) Eos % (Auto) Baso % (Auto) Lymph # (Auto) Rush # (Auto) Eos # (Auto) Baso # (Auto) Abs Immat Gran (auto) Absolute Neuts (auto) Absolute Nucleated RBC Nucleated RBC % (auto) Sodium Potassium Chloride Carbon Dioxide Anion Gap BUN Creatinine Estim Creat Clear Calc Estimated GFR Random Glucose Lactic Acid Calcium Total Bilirubin Direct Bilirubin AST ALT Alkaline Phosphatase Troponin I High Sens B-Natriuretic Peptide 164 H Total Protein Albumin Urine Color Urine Appearance Urine pH Ur Specific [place] Urine Protein Urine Glucose (UA) Urine Ketones Urine Blood Urine Nitrite Ur Leukocyte Esterase Urine RBC Urine WBC Ur Squamous Epith Cells Urine Bacteria Hyaline Casts Respiratory Panel Paez Cancelled Adenovirus (Rapid PCR) Cancelled B.pert (TEM-PCR) Cancelled B.parapertussis DNA PCR Cancelled C. pneumoniae DNA (PCR) Cancelled Coronavirus OC43 (PCR) Cancelled Coronavirus HKU1 (PCR) Cancelled Coronavirus 229E (PCR) Cancelled Coronavirus NL63 (PCR) Cancelled Human Metapneumovir PCR Cancelled Influenza A (RT-PCR) Cancelled Influenza Type A (PCR) NEGATIVE Influenza B (RT-PCR) Cancelled Influenza Type B (PCR) NEGATIVE M. pneumoniae (PCR) Cancelled Parainfluenza 1 (PCR) Cancelled Parainfluenza 2 (PCR) Cancelled Parainfluenza 3 (PCR) Cancelled Parainfluenza 4 (PCR) Cancelled RSV (PCR) Cancelled RSV RNA Qual (PCR) NEGATIVE Entero/Rhino (PCR) Cancelled SARS-CoV-2 RNA (RT-PCR) NEGATIVE Cancelled 08/23/22 08/23/22 08/23/22 18:43 19:02 19:02 WBC RBC Hgb Hct MCV MCH MCHC RDW Plt Count MPV Immature Gran % (Auto) Neut % (Auto) Lymph % (Auto) Rush % (Auto) Eos % (Auto) Baso % (Auto) Lymph # (Auto) Rush # (Auto) Eos # (Auto) Baso # (Auto) Abs Immat Gran (auto) Absolute Neuts (auto) Absolute Nucleated RBC Nucleated RBC % (auto) Sodium Potassium Chloride Carbon Dioxide Anion Gap BUN Creatinine Estim Creat Clear Calc Estimated GFR Random Glucose Lactic Acid 1.6 Calcium Total Bilirubin Direct Bilirubin AST ALT Alkaline Phosphatase Troponin I High Sens 58.4 H* B-Natriuretic Peptide Total Protein Albumin Urine Color Yellow Urine Appearance Clear Urine pH 5.0 Ur Specific [place] 1.010 Urine Protein Negative Urine Glucose (UA) Negative Urine Ketones Negative Urine Blood Negative Urine Nitrite Negative Ur Leukocyte Esterase Trace H Urine RBC 0-2 Urine WBC 0-5 Ur Squamous Epith Cells 0-2 Urine Bacteria None Seen Hyaline Casts 3-5 Respiratory Panel Paez Adenovirus (Rapid PCR) B.pert (TEM-PCR) B.parapertussis DNA PCR C. pneumoniae DNA (PCR) Coronavirus OC43 (PCR) Coronavirus HKU1 (PCR) Coronavirus 229E (PCR) Coronavirus NL63 (PCR) Human Metapneumovir PCR Influenza A (RT-PCR) Influenza Type A (PCR) Influenza B (RT-PCR) Influenza Type B (PCR) M. pneumoniae (PCR) Parainfluenza 1 (PCR) Parainfluenza 2 (PCR) Parainfluenza 3 (PCR) Parainfluenza 4 (PCR) RSV (PCR) RSV RNA Qual (PCR) Entero/Rhino (PCR) SARS-CoV-2 RNA (RT-PCR) 08/24/22 08/24/22 08/24/22 05:40 05:40 07:25 WBC 12.0 H RBC 3.35 L Hgb 10.4 L Hct 30.9 L MCV 92.2 MCH 31.0 MCHC 33.7 RDW 16.0 Plt Count 141 L MPV 11.2 Immature Gran % (Auto) 3.7 H Neut % (Auto) 86.8 H Lymph % (Auto) 7.3 L Rush % (Auto) 2.1 Eos % (Auto) 0.0 Baso % (Auto) 0.1 Lymph # (Auto) 0.9 L Rush # (Auto) 0.3 Eos # (Auto) 0.0 Baso # (Auto) 0.0 Abs Immat Gran (auto) 0.44 H Absolute Neuts (auto) 10.4 H Absolute Nucleated RBC 0.000 Nucleated RBC % (auto) 0.0 Sodium 137 Potassium 5.0 Chloride 101 Carbon Dioxide 25 Anion Gap 16 BUN 35 H Creatinine 1.31 Estim Creat Clear Calc 26.1 Estimated GFR 39 Random Glucose 337 H Lactic Acid Calcium 8.4 Total Bilirubin Direct Bilirubin AST ALT Alkaline Phosphatase Troponin I High Sens B-Natriuretic Peptide Total Protein Albumin Urine Color Urine Appearance Urine pH Ur Specific [place] Urine Protein Urine Glucose (UA) Urine Ketones Urine Blood Urine Nitrite Ur Leukocyte Esterase Urine RBC Urine WBC Ur Squamous Epith Cells Urine Bacteria Hyaline Casts Respiratory Panel Paez See Note Adenovirus (Rapid PCR) Not Detected B.pert (TEM-PCR) Not Detected B.parapertussis DNA PCR Not Detected C. pneumoniae DNA (PCR) Not Detected Coronavirus OC43 (PCR) Not Detected Coronavirus HKU1 (PCR) Not Detected Coronavirus 229E (PCR) Not Detected Coronavirus NL63 (PCR) Not Detected Human Metapneumovir PCR Not Detected Influenza A (RT-PCR) Not Detected Influenza Type A (PCR) Influenza B (RT-PCR) Not Detected Influenza Type B (PCR) M. pneumoniae (PCR) Not Detected Parainfluenza 1 (PCR) Not Detected Parainfluenza 2 (PCR) Not Detected Parainfluenza 3 (PCR) Not Detected Parainfluenza 4 (PCR) Not Detected RSV (PCR) Not Detected RSV RNA Qual (PCR) Entero/Rhino (PCR) Not Detected SARS-CoV-2 RNA (RT-PCR) Not Detected Imaging Radiologist's impression: Impressions Abdomen/Pelvis CT 08/23/22 16:34 IMPRESSION: 1. Minimally displaced posterior right 11th rib fracture, acute. Possible nondisplaced posterior right 12th rib fracture. 2. Multiple vertebral body compression deformities are seen, which are age indeterminate. The T9 compression deformity has progressed from the 2021 study. 3. 2.1 cm nodular density at the pancreatic tail. This is not clearly seen on the study from 04/06/2022. This could represent a pancreatic mass. Consider nonemergent MRI evaluation. 4. Prominent umbilical hernia containing a portion of small bowel. No obstruction. 5. Bronchiectasis at the lower lobes with bronchial filling defects, particularly in the left lower lobe with adjacent opacities. Aspiration possible. Chest CT 08/23/22 16:34 IMPRESSION: 1. Minimally displaced posterior right 11th rib fracture, acute. Possible nondisplaced posterior right 12th rib fracture. 2. Multiple vertebral body compression deformities are seen, which are age indeterminate. The T9 compression deformity has progressed from the 2021 study. 3. 2.1 cm nodular density at the pancreatic tail. This is not clearly seen on the study from 04/06/2022. This could represent a pancreatic mass. Consider nonemergent MRI evaluation. 4. Prominent umbilical hernia containing a portion of small bowel. No obstruction. 5. Bronchiectasis at the lower lobes with bronchial filling defects, particularly in the left lower lobe with adjacent opacities. Aspiration possible. Head CT 08/23/22 16:34 IMPRESSION: Limited study with motion artifacts. Moderate diffuse parenchymal volume loss and mild chronic white matter microangiopathy. No acute intracranial hemorrhage or territorial infarction. The possibility of a focal acute ischemic process cannot be ruled out on the basis of this study. Assessment and Plan (1) Aspiration pneumonia: Status: Acute (2) A-fib: Status: Acute Plan Pleasant 81-year-old female who is presenting with AFib with RVR in the setting of aspiration pneumonia. On antibiotics. She is on Cardizem at home which can be continued at the same dose of 240 mg. It appears she did not tolerate beta-jamel previously due to lung disease. Cardizem can interact with digoxin and can raise digoxin level but I think currently the options are limited. Due to lung disease amiodarone is not an option in her. Give her a digoxin load of 250 mcg x 2, q6 hours. Started on digoxin 125 mcg every other day. Treat for underlying aspiration pneumonia. Discussed with the patient and her family member about need for Eliquis given her risk for stroke. Also discussed with her about Watchman in case she continues to have bleeding concerns in the future. She will discuss this with Dr. Coto. Thank you for allowing me to participate in the care of your patient. Please feel free to contact me if you have any questions. Time Spent With Patient Time: Total time managing care of this patient today ____ minutes. Procedures Date of Service Date of Service: 08/24/22
--- NOTE | 2022-08-24 11:05 | PC.NURSE ---
rt at bedside giving updraft
--- NOTE | 2022-08-24 12:27 | PC.NURSE ---
family at bedside visiting patient family states they brought in anuro.
--- NOTE | 2022-08-24 13:40 | PC.NURSE ---
patient a&ox3, afib on monitor, pt medicated per order, pure wick patient/draining,call nur within reach, will continue to monitor
--- NOTE | 2022-08-24 14:15 | PC.NURSE ---
anoro inhailer pharmacy is holding onto the inhailer until patient gets an actual room, if pt is still in the ED when it is due tomm please call pharmacy. this is due to the cost of the inhailer.
--- NOTE | 2022-08-24 15:27 | HO.PM.IMPN ---
Subjective Subjective Date of Service: 08/24/22 Interval History: Rate poorly control overnight however now responding to therapies. Voices no complaint Review of Systems Denies chest pain Denies shortness of breath Denies nausea vomiting diarrhea Denies fever chills Physical Exam Vital Signs: Vital Signs: Last Vital Signs Temp 98.6 F 08/24/22 14:39 Pulse 98 08/24/22 14:39 Resp 22 H 08/24/22 14:39 BP 120/76 08/24/22 14:39 Pulse Ox 99 08/24/22 14:39 O2 Del Method 08/24/22 14:39 Oxygen Flow Rate 4 08/23/22 15:06 BMI result Body Mass Index 30.3 Resp: Other: Clear to auscultation bilaterally no rales rhonchi wheezes Cardio: Other: No S4; positive S1-S2; no S3 murmurs rubs or gallops GI: Other: Soft nontender nondistended normoactive bowel sounds Extrem: Other: No edema bilaterally Objective Data Active Medications Acetaminophen (Acetaminophen 325 Mg Tablet) 650 mg PO Q6H PRN PRN Reason: Pain, Mild (Pain Scale 1-3) Last Admin: 08/24/22 06:30 Dose: 650 mg Documented By: GUEVARA Apixaban (Apixaban 2.5 Mg Tablet) 2.5 mg PO BID [facility] Last Admin: 08/24/22 07:44 Dose: 2.5 mg Documented By: JAYE Digoxin (Digoxin 0.5 Mg/2 Ml Ampul) 0.25 mg IVPUSH Q6H [facility] Stop: 08/24/22 21:31 Diltiazem HCl (Diltiazem Hcl Cd 240 Mg Cap.Er.Deg) 240 mg PO DAILY [facility]; Protocol Last Admin: 08/24/22 08:32 Dose: 240 mg Documented By: JAYE Docusate Sodium (Docusate Sodium 100 Mg Capsule) 100 mg PO DAILY PRN PRN Reason: Constipation Docusate Sodium (Docusate Sodium 100 Mg Capsule) 100 mg PO BEDTIME [facility] Last Admin: 08/23/22 22:26 Dose: 100 mg Documented By: GUEVARA Ferrous Sulfate (Ferrous Sulfate 324 Mg Tablet.Dr) 324 mg PO DAILY [facility] Last Admin: 08/24/22 07:45 Dose: 324 mg Documented By: JAYE Fluticasone Propionate (Fluticasone Propionate Nasal 16 Gm [place]) 1 spray NOSTRIL-B BID [facility] Last Admin: 08/24/22 09:55 Dose: 1 spray Documented By: SAURABH Furosemide (Furosemide 20 Mg Tablet) 20 mg PO DAILY [facility]; Protocol Last Admin: 08/24/22 07:45 Dose: 20 mg Documented By: JAYE Piperacillin Sod/Tazobactam (Sod 4.5 gm/ Sodium Chloride) 100 mls @ 200 mls/hr IV Q8H [facility] Last Infusion: 08/24/22 14:09 Dose: 0 mls/hr Documented By: SAURABH Ipratropium [place] (Ipratropium [place] 0.5 Mg/2.5 Ml Solution) 0.5 mg INHALE RQ4H WHILE AWAKE [facility] Last Admin: 08/24/22 11:00 Dose: 0.5 mg Documented By: KVNG Levalbuterol HCl (Levalbuterol Hcl 1.25 Mg/0.5 Ml Vial.Neb) 1.25 mg INHALE RQ4H WHILE AWAKE [facility] Last Admin: 08/24/22 10:59 Dose: 1.25 mg Documented By: KVNG Lisinopril (Lisinopril 2.5 Mg Tablet) 2.5 mg PO DAILY [facility]; Protocol Last Admin: 08/24/22 07:45 Dose: 2.5 mg Documented By: JAYE Methylprednisolone Sodium Succinate (Methylprednisolone Sod Succ 125 Mg/2 Ml Vial) 60 mg IVPUSH Q12H [facility] Last Admin: 08/24/22 07:47 Dose: 60 mg Documented By: JAYE Montelukast Sodium (Montelukast Sodium 10 Mg Tablet) 10 mg PO BEDTIME [facility] Last Admin: 08/23/22 22:27 Dose: 10 mg Documented By: GUEVARA Patient Own ( Umeclidinium- Vilanterol [Anoro Ellipta] 62.5-25 Mcg /Actuation Bl 1 each INHALE RDAILY [facility] Last Admin: 08/24/22 14:12 Dose: 1 each Documented By: SAURABH Omeprazole (Omeprazole 40 Mg Capsule.) 40 mg PO DAILY@0630 [facility] Last Admin: 08/24/22 07:44 Dose: 40 mg Documented By: JAYE Ondansetron HCl (Ondansetron Hcl 4 Mg/2 Ml Vial) 4 mg IVPUSH Q8H PRN PRN Reason: Nausea and Vomiting Oxybutynin Chloride (Oxybutynin Chloride Er 5 Mg Tab.Er.24) 5 mg PO DAILY [facility] Last Admin: 08/24/22 07:45 Dose: 5 mg Documented By: JAYE Pharmacy Consult (Consult Rx Perform Med Rec) 1 each MISCELLANE ONCE PRN PRN Reason: Consult order Sodium Chloride (0.9 % Sodium Chloride Flush 3 Ml Syringe) 3 ml IVFLUSH QSHIFT [facility] Last Admin: 08/24/22 07:46 Dose: 3 ml Documented By: JAYE Tramadol HCl (Tramadol Hcl 50 Mg Tablet) 50 mg PO BID [facility] Last Admin: 08/24/22 07:44 Dose: 50 mg Documented By: JAYE Labs 08/24/22 05:40 08/24/22 05:40 Labs: Laboratory Results - last 24 hr 08/23/22 08/23/22 08/23/22 16:58 16:58 16:58 MCV 93.3 MCH 31.5 MCHC 33.8 RDW 16.3 H Plt Count 157 L MPV 10.7 Immature Gran % (Auto) 2.7 H Neut % (Auto) 84.7 H Lymph % (Auto) 8.1 L [place] % (Auto) 4.3 Eos % (Auto) 0.1 Baso % (Auto) 0.1 Lymph # (Auto) 1.2 [place] # (Auto) 0.6 Eos # (Auto) 0.0 Baso # (Auto) 0.0 Abs Immat Gran (auto) 0.38 H Absolute Neuts (auto) 12.1 H Absolute Nucleated RBC 0.000 Nucleated RBC % (auto) 0.0 Anion Gap 14 Estim Creat Clear Calc 23.5 Estimated GFR 34 Random Glucose 215 H Lactic Acid Calcium 8.4 D Total Bilirubin 1.7 H Direct Bilirubin 0.4 AST 19 ALT 40 H Alkaline Phosphatase 102 Troponin I High Sens 54.0 H* B-Natriuretic Peptide Total Protein 5.3 L Albumin 3.3 L Urine Color Urine Appearance Urine pH Ur Specific [place] Urine Protein Urine Glucose (UA) Urine Ketones Urine Blood Urine Nitrite Ur Leukocyte Esterase Urine RBC Urine WBC Ur Squamous Epith Cells Urine Bacteria Hyaline Casts Respiratory Panel [place] Adenovirus (Rapid PCR) B.pert (TEM-PCR) B.parapertussis DNA PCR C. pneumoniae DNA (PCR) Coronavirus OC43 (PCR) Coronavirus HKU1 (PCR) Coronavirus 229E (PCR) Coronavirus NL63 (PCR) Human Metapneumovir PCR Influenza A (RT-PCR) Influenza Type A (PCR) Influenza B (RT-PCR) Influenza Type B (PCR) M. pneumoniae (PCR) Parainfluenza 1 (PCR) Parainfluenza 2 (PCR) Parainfluenza 3 (PCR) Parainfluenza 4 (PCR) RSV (PCR) RSV RNA Qual (PCR) Entero/Rhino (PCR) SARS-CoV-2 RNA (RT-PCR) 08/23/22 08/23/22 08/23/22 16:58 16:58 16:58 MCV MCH MCHC RDW Plt Count MPV Immature Gran % (Auto) Neut % (Auto) Lymph % (Auto) [place] % (Auto) Eos % (Auto) Baso % (Auto) Lymph # (Auto) [place] # (Auto) Eos # (Auto) Baso # (Auto) Abs Immat Gran (auto) Absolute Neuts (auto) Absolute Nucleated RBC Nucleated RBC % (auto) Anion Gap Estim Creat Clear Calc Estimated GFR Random Glucose Lactic Acid Calcium Total Bilirubin Direct Bilirubin AST ALT Alkaline Phosphatase Troponin I High Sens B-Natriuretic Peptide 164 H Total Protein Albumin Urine Color Urine Appearance Urine pH Ur Specific [place] Urine Protein Urine Glucose (UA) Urine Ketones Urine Blood Urine Nitrite Ur Leukocyte Esterase Urine RBC Urine WBC Ur Squamous Epith Cells Urine Bacteria Hyaline Casts Respiratory Panel [place] Cancelled Adenovirus (Rapid PCR) Cancelled B.pert (TEM-PCR) Cancelled B.parapertussis DNA PCR Cancelled C. pneumoniae DNA (PCR) Cancelled Coronavirus OC43 (PCR) Cancelled Coronavirus HKU1 (PCR) Cancelled Coronavirus 229E (PCR) Cancelled Coronavirus NL63 (PCR) Cancelled Human Metapneumovir PCR Cancelled Influenza A (RT-PCR) Cancelled Influenza Type A (PCR) NEGATIVE Influenza B (RT-PCR) Cancelled Influenza Type B (PCR) NEGATIVE M. pneumoniae (PCR) Cancelled Parainfluenza 1 (PCR) Cancelled Parainfluenza 2 (PCR) Cancelled Parainfluenza 3 (PCR) Cancelled Parainfluenza 4 (PCR) Cancelled RSV (PCR) Cancelled RSV RNA Qual (PCR) NEGATIVE Entero/Rhino (PCR) Cancelled SARS-CoV-2 RNA (RT-PCR) NEGATIVE Cancelled 08/23/22 08/23/22 08/23/22 18:43 19:02 19:02 MCV MCH MCHC RDW Plt Count MPV Immature Gran % (Auto) Neut % (Auto) Lymph % (Auto) [place] % (Auto) Eos % (Auto) Baso % (Auto) Lymph # (Auto) [place] # (Auto) Eos # (Auto) Baso # (Auto) Abs Immat Gran (auto) Absolute Neuts (auto) Absolute Nucleated RBC Nucleated RBC % (auto) Anion Gap Estim Creat Clear Calc Estimated GFR Random Glucose Lactic Acid 1.6 Calcium Total Bilirubin Direct Bilirubin AST ALT Alkaline Phosphatase Troponin I High Sens 58.4 H* B-Natriuretic Peptide Total Protein Albumin Urine Color Yellow Urine Appearance Clear Urine pH 5.0 Ur Specific [place] 1.010 Urine Protein Negative Urine Glucose (UA) Negative Urine Ketones Negative Urine Blood Negative Urine Nitrite Negative Ur Leukocyte Esterase Trace H Urine RBC 0-2 Urine WBC 0-5 Ur Squamous Epith Cells 0-2 Urine Bacteria None Seen Hyaline Casts 3-5 Respiratory Panel [place] Adenovirus (Rapid PCR) B.pert (TEM-PCR) B.parapertussis DNA PCR C. pneumoniae DNA (PCR) Coronavirus OC43 (PCR) Coronavirus HKU1 (PCR) Coronavirus 229E (PCR) Coronavirus NL63 (PCR) Human Metapneumovir PCR Influenza A (RT-PCR) Influenza Type A (PCR) Influenza B (RT-PCR) Influenza Type B (PCR) M. pneumoniae (PCR) Parainfluenza 1 (PCR) Parainfluenza 2 (PCR) Parainfluenza 3 (PCR) Parainfluenza 4 (PCR) RSV (PCR) RSV RNA Qual (PCR) Entero/Rhino (PCR) SARS-CoV-2 RNA (RT-PCR) 08/24/22 08/24/22 08/24/22 05:40 05:40 07:25 MCV 92.2 MCH 31.0 MCHC 33.7 RDW 16.0 Plt Count 141 L MPV 11.2 Immature Gran % (Auto) 3.7 H Neut % (Auto) 86.8 H Lymph % (Auto) 7.3 L [place] % (Auto) 2.1 Eos % (Auto) 0.0 Baso % (Auto) 0.1 Lymph # (Auto) 0.9 L [place] # (Auto) 0.3 Eos # (Auto) 0.0 Baso # (Auto) 0.0 Abs Immat Gran (auto) 0.44 H Absolute Neuts (auto) 10.4 H Absolute Nucleated RBC 0.000 Nucleated RBC % (auto) 0.0 Anion Gap 16 Estim Creat Clear Calc 26.1 Estimated GFR 39 Random Glucose 337 H Lactic Acid Calcium 8.4 Total Bilirubin Direct Bilirubin AST ALT Alkaline Phosphatase Troponin I High Sens B-Natriuretic Peptide Total Protein Albumin Urine Color Urine Appearance Urine pH Ur Specific [place] Urine Protein Urine Glucose (UA) Urine Ketones Urine Blood Urine Nitrite Ur Leukocyte Esterase Urine RBC Urine WBC Ur Squamous Epith Cells Urine Bacteria Hyaline Casts Respiratory Panel [place] See Note Adenovirus (Rapid PCR) Not Detected B.pert (TEM-PCR) Not Detected B.parapertussis DNA PCR Not Detected C. pneumoniae DNA (PCR) Not Detected Coronavirus OC43 (PCR) Not Detected Coronavirus HKU1 (PCR) Not Detected Coronavirus 229E (PCR) Not Detected Coronavirus NL63 (PCR) Not Detected Human Metapneumovir PCR Not Detected Influenza A (RT-PCR) Not Detected Influenza Type A (PCR) Influenza B (RT-PCR) Not Detected Influenza Type B (PCR) M. pneumoniae (PCR) Not Detected Parainfluenza 1 (PCR) Not Detected Parainfluenza 2 (PCR) Not Detected Parainfluenza 3 (PCR) Not Detected Parainfluenza 4 (PCR) Not Detected RSV (PCR) Not Detected RSV RNA Qual (PCR) Entero/Rhino (PCR) Not Detected SARS-CoV-2 RNA (RT-PCR) Not Detected Assessment and Plan (1) COPD (chronic obstructive pulmonary disease): Status: Acute Assessment and Plan: 81-year-old female with COPD, history of pseudomonal pneumonia, coronary artery disease, paroxysmal atrial fibrillation anticoagulated with Eliquis, congestive heart failure admitted for COPD exacerbation, aspiration pneumonia, and atrial fibrillation with RVR. 1.COPD exacerbation with aspiration pneumonia -Zosyn 4.5 g q.8 hours x5 days(2/5) -methylprednisolone 60 mg IV b.i.d. -levalbuterol/ipratropium nebs q.4h while awake (avoid albuterol per patient's daughter request) 2.Paroxysmal atrial fibrillation with RVR -resume Eliquis 2.5 mg b.i.d. for anticoagulation -continue p.o. diltiazem -dig load 3.Congestive heart failure -no acute exacerbation. BNP baseline -continue p.o. Lasix Eliquis Full code Patient requires ongoing hospitalization to treat aspiration pneumonia with IV antibiotics and for did slow to treat paroxysmal atrial fib (2) Aspiration pneumonia: Status: Acute (3) Paroxysmal A-fib: Status: Acute Time Spent With Patient Time: Total time managing care of this patient today ____ minutes. Quality Stroke Does the patient have a stroke diagnosis?: No VTE Prior VTE?: No VTE Risk Level:: Medical - moderate - high VTE Device Contraindication: Treatment Not Indicated VTE Drug Contraindication: N/A - Med Ordered
[2022-08-24] MEDS: Digoxin 0.5 MG/2 ML AMPUL 0.25 MG IVPUSH ×2 (15:39→20:12)
--- NOTE | 2022-08-24 15:43 | PC.NURSE ---
pt medicated with digoxin per order, rt at bedside giving scheduled updraft, will continue to monitor
[2022-08-24] MEDS: Montelukast Sodium 10 MG TABLET PO (20:11)
[2022-08-24] MEDS: Docusate Sodium 100 MG CAPSULE PO (20:12)
[2022-08-25] VITALS (8 sets, daily range): BP systolic 142–164; BP diastolic 68–81; PULSE 74–82; RESP 16–20; TEMP 36.2–36.8; O2SAT 96–98; BMI 31.0
[2022-08-25] MEDS: Omeprazole 40 MG CAPSULE.DR PO (06:37)
[2022-08-25] MEDS: Piperacillin Sodium/Tazobactam 4.5 GM in 0.9 % Sodium Chloride 100 ML IV ×3 (06:37→20:37)
[2022-08-25 07:06] LABS: Basophils Percent Auto 0.1 % (0-2); Hematocrit 29.3 % (37.0-47.0); Hemoglobin 9.8 g/dl (12.0-16.0); Imm Gran Abs Auto 0.44 X10*3/uL (0.00-0.03); Imm Gran Pct Auto 2.9 % (0.0-0.4); Lymphocytes Absolute Auto 0.4 X10*3/uL (1.2-4.9); Lymphocytes Percent Auto 2.7 % (20-40); MANUAL DIFF FLAG SCAN; Mean Corpuscular HGB Conc 33.4 g/dl (31.0-35.0); Mean Corpuscular Hemoglobin 31.2 pg (27.0-33.0); Mean Corpuscular Volume 93.3 fL (80.0-98.0); Mean Platelet Volume 10.9 fL (9.4-12.3); Monocytes Absolute Auto 0.3 X10*3/uL (0.1-1.2); Monocytes Percent Auto 2.1 % (2-11); Neutrophils Absolute Auto 13.9 x10*3/uL (2.0-8.3); Neutrophils Percent Auto 92.2 % (45-73); Platelet Count 136 X10*3/uL (160-400); Red Blood Count 3.14 X10*6/uL (4.20-5.50); Red Cell Distribution Width 16.2 % (11.0-16.0); SCAN SMEAR FLAG 1
[2022-08-25 07:24] LABS: Alanine Aminotransferase 44 U/L (0-31); Albumin Level 3.2 g/dL (3.5-5.0); Alkaline Phosphatase 96 U/L (39-117); Anion Gap 16 (12-20); Aspartate Amino Transferase 17 U/L (5-31); Bilirubin Total 1.1 mg/dL (0.0-1.0); Blood Urea Nitrogen 37 mg/dL (9-16); Calcium 8.2 mg/dL (8.4-10.2); Carbon Dioxide 25 mmol/L (22-29); Chloride 99 mmol/L (96-108); Creatinine Clr Calc Pharmacy 20.5; Estimated Glomerular Filt Rate 29; Potassium 4.7 mmol/L (3.3-5.1); Sodium 135 mmol/L (135-145)
[2022-08-25 07:30] LABS: Glucose Fasting 433 mg/dL (60-99)
[2022-08-25 07:48] LABS: SLIDE REVIEW VERIFIED
[2022-08-25] MEDS: Ipratropium Bromide 0.5 MG/2.5 ML SOLUTION INHALE ×4 (08:05→20:07)
[2022-08-25] MEDS: Insulin Lispro 100 UNIT/ML 3 ML VIAL 15 UNIT SUBCUT (08:57)
[2022-08-25] MEDS: oxyBUTYnin chloride ER 5 MG TAB.ER.24 PO (08:58)
[2022-08-25] MEDS: Ferrous Sulfate 324 MG TABLET.DR PO (08:58)
[2022-08-25] MEDS: dilTIAZem HCL CD 240 MG CAP.ER.DEG PO (08:58)
[2022-08-25] MEDS: lisinopriL 2.5 MG TABLET PO (08:59)
[2022-08-25] MEDS: Furosemide 20 MG TABLET PO (08:59)
[2022-08-25] MEDS: Fluticasone Propionate Nasal 16 GM SPRAY 1 SPRAY NOSTRIL-B (08:59)
[2022-08-25] MEDS: Apixaban 2.5 MG TABLET PO ×2 (08:59→20:35)
[2022-08-25] MEDS: 0.9 % Sodium Chloride Flush 3 ML SYRINGE IVFLUSH ×3 (08:59→23:10)
[2022-08-25] MEDS: traMADoL HCL 50 MG TABLET PO ×2 (09:00→20:35)
[2022-08-25 10:56] LABS: Glucose, Whole Blood 281 mg/dL (60-115)
[2022-08-25] MEDS: Insulin Lispro 100 UNIT/ML 3 ML VIAL SUBCUT ×2 (11:52→20:37)
[2022-08-25] MEDS: Acetaminophen 325 MG TABLET 650 MG PO (13:25)
--- NOTE | 2022-08-25 13:48 | HO.PM.IMPN ---
Subjective Subjective Date of Service: 08/25/22 Interval History: Somewhat confused this a.m.. States minimal sleep overnight Review of Systems Denies chest pain States shortness of breath is improved Denies nausea vomiting diarrhea Denies fever chills Physical Exam Vital Signs: Vital Signs: Last Vital Signs Temp 97.9 F 08/25/22 10:49 Pulse 75 08/25/22 11:09 Resp 18 08/25/22 11:09 BP 156/72 H 08/25/22 10:49 Pulse Ox 98 08/25/22 10:49 O2 Del Method 08/25/22 10:49 Oxygen Flow Rate 4 08/23/22 15:06 BMI result Body Mass Index 31.0 Resp: Other: Diminished at bases. Scant expiratory wheezes Cardio: Other: No S4; positive S1-S2; no S3 murmurs rubs or gallops GI: Other: Soft nontender nondistended normoactive bowel sounds Extrem: Other: No edema bilaterally Objective Data Active Medications Acetaminophen (Acetaminophen 325 Mg Tablet) 650 mg PO Q6H PRN PRN Reason: Pain, Mild (Pain Scale 1-3) Last Admin: 08/25/22 13:25 Dose: 650 mg Documented By: RADHIKA Apixaban (Apixaban 2.5 Mg Tablet) 2.5 mg PO BID [facility] Last Admin: 08/25/22 08:59 Dose: 2.5 mg Documented By: RADHIKA Diltiazem HCl (Diltiazem Hcl Cd 240 Mg Cap.Er.Deg) 240 mg PO DAILY [facility]; Protocol Last Admin: 08/25/22 08:58 Dose: 240 mg Documented By: RADHIKA Docusate Sodium (Docusate Sodium 100 Mg Capsule) 100 mg PO DAILY PRN PRN Reason: Constipation Docusate Sodium (Docusate Sodium 100 Mg Capsule) 100 mg PO BEDTIME [facility] Last Admin: 08/24/22 20:12 Dose: 100 mg Documented By: ZOFIA Ferrous Sulfate (Ferrous Sulfate 324 Mg Tablet.Dr) 324 mg PO DAILY [facility] Last Admin: 08/25/22 08:58 Dose: 324 mg Documented By: RADHIKA Fluticasone Propionate (Fluticasone Propionate Nasal 16 Gm [place]) 1 spray NOSTRIL-B BID [facility] Last Admin: 08/25/22 08:59 Dose: 1 spray Documented By: RADHIKA Furosemide (Furosemide 20 Mg Tablet) 20 mg PO DAILY [facility]; Protocol Last Admin: 08/25/22 08:59 Dose: 20 mg Documented By: RADHIKA Glucose (Glucose Gel 15 Gm Gel..Gram.) 15 gm PO Q15M PRN; Protocol PRN Reason: per Hypoglycemia Standing Ord. Piperacillin Sod/Tazobactam (Sod 4.5 gm/ Sodium Chloride) 100 mls @ 200 mls/hr IV Q8H [facility] Last Infusion: 08/25/22 09:18 Dose: 0 mls/hr Documented By: RADHIKA Dextrose (D10) 250 mls @ 750 mls/hr IV Q15M PRN; Protocol PRN Reason: per Hypoglycemia Standing Ord. Insulin Human Lispro (Insulin Lispro 100 Unit/Ml 3 Ml Vial) 0 unit SUBCUT QIDACHS [facility]; Protocol Last Admin: 08/25/22 11:52 Dose: 6 unit Documented By: RADHIKA Ipratropium [place] (Ipratropium [place] 0.5 Mg/2.5 Ml Solution) 0.5 mg INHALE RQ4H WHILE AWAKE [facility] Last Admin: 08/25/22 11:08 Dose: 0.5 mg Documented By: SOHAM Levalbuterol HCl (Levalbuterol Hcl 1.25 Mg/0.5 Ml Vial.Neb) 1.25 mg INHALE RQ4H WHILE AWAKE [facility] Last Admin: 08/25/22 11:08 Dose: 1.25 mg Documented By: SOHAM Lisinopril (Lisinopril 2.5 Mg Tablet) 2.5 mg PO DAILY [facility]; Protocol Last Admin: 08/25/22 08:59 Dose: 2.5 mg Documented By: RADHIKA Methylprednisolone Sodium Succinate (Methylprednisolone Sod Succ 125 Mg/2 Ml Vial) 60 mg IVPUSH Q12H [facility] Last Admin: 08/25/22 09:16 Dose: Not Given Documented By: RADHIKA Non-Admin Reason: Patient Refused Montelukast Sodium (Montelukast Sodium 10 Mg Tablet) 10 mg PO BEDTIME [facility] Last Admin: 08/24/22 20:11 Dose: 10 mg Documented By: ZOFIA Patient Own ( Umeclidinium- Vilanterol [Anoro Ellipta] 62.5-25 Mcg /Actuation Bl 1 each INHALE RDAILY [facility] Last Admin: 08/25/22 12:00 Dose: 1 each Documented By: RADHIKA Omeprazole (Omeprazole 40 Mg Capsule.Dr) 40 mg PO DAILY@0630 [facility] Last Admin: 08/25/22 06:37 Dose: 40 mg Documented By: ZOFIA Ondansetron HCl (Ondansetron Hcl 4 Mg/2 Ml Vial) 4 mg IVPUSH Q8H PRN PRN Reason: Nausea and Vomiting Oxybutynin Chloride (Oxybutynin Chloride Er 5 Mg Tab.Er.24) 5 mg PO DAILY [facility] Last Admin: 08/25/22 08:58 Dose: 5 mg Documented By: RADHIKA Pharmacy Consult (Consult Rx Perform Med Rec) 1 each MISCELLANE ONCE PRN PRN Reason: Consult order Sodium Chloride (0.9 % Sodium Chloride Flush 3 Ml Syringe) 3 ml IVFLUSH QSHIFT [facility] Last Admin: 08/25/22 08:59 Dose: 3 ml Documented By: RADHIKA Tramadol HCl (Tramadol Hcl 50 Mg Tablet) 50 mg PO BID [facility] Last Admin: 08/25/22 09:00 Dose: 50 mg Documented By: RADHIKA Labs 08/25/22 06:46 08/25/22 06:46 Labs: Laboratory Results - last 24 hr 08/25/22 08/25/22 08/25/22 06:46 06:46 10:48 MCV 93.3 MCH 31.2 MCHC 33.4 RDW 16.2 H Plt Count 136 L MPV 10.9 Immature Gran % (Auto) 2.9 H Neut % (Auto) 92.2 H Lymph % (Auto) 2.7 L [place] % (Auto) 2.1 Eos % (Auto) 0.0 Baso % (Auto) 0.1 Lymph # (Auto) 0.4 L [place] # (Auto) 0.3 Eos # (Auto) 0.0 Baso # (Auto) 0.0 Abs Immat Gran (auto) 0.44 H Absolute Neuts (auto) 13.9 H Absolute Nucleated RBC 0.000 Nucleated RBC % (auto) 0.0 Smear Tech's Comments VERIFIED Anion Gap 16 Estim Creat Clear Calc 20.5 Estimated GFR 29 POC Glucose 281 H Fasting Glucose 433 H* Calcium 8.2 L Total Bilirubin 1.1 H AST 17 ALT 44 H Alkaline Phosphatase 96 Total Protein 5.0 L Albumin 3.2 L Microbiology Microbiology Results: Microbiology 08/23/22 17:16 Blood Culture - Preliminary Blood - Venous No growth after 24 hours. 08/23/22 16:58 Blood Culture - Preliminary Blood - Venous No growth after 24 hours. Assessment and Plan (1) COPD (chronic obstructive pulmonary disease): Status: Acute Assessment and Plan: 81-year-old female with COPD, history of pseudomonal pneumonia, coronary artery disease, paroxysmal atrial fibrillation anticoagulated with Eliquis, congestive heart failure admitted for COPD exacerbation, aspiration pneumonia, and atrial fibrillation with RVR. 1.COPD exacerbation with aspiration pneumonia -Zosyn 4.5 g q.8 hours x5 days(08/14) -methylprednisolone 60 mg IV b.i.d. -levalbuterol/ipratropium nebs q.4h while awake (avoid albuterol per patient's daughter request) 2.Paroxysmal atrial fibrillation with RVR -resume Eliquis 2.5 mg b.i.d. for anticoagulation -continue p.o. diltiazem -dig load 3.Congestive heart failure -no acute exacerbation. BNP baseline -continue p.o. Lasix Eliquis Full code Patient requires ongoing hospitalization to treat aspiration pneumonia with IV antibiotics and for did slow to treat paroxysmal atrial fib (2) Aspiration pneumonia: Status: Acute (3) A-fib: Status: Acute Time Spent With Patient Time: Total time managing care of this patient today ____ minutes. Quality Stroke Does the patient have a stroke diagnosis?: No VTE Prior VTE?: No VTE Risk Level:: Medical - moderate - high VTE Device Contraindication: Treatment Not Indicated VTE Drug Contraindication: N/A - Med Ordered
--- NOTE | 2022-08-25 15:20 | PM.CNPUL ---
History of Present Illness History of Present Illness Consult date: 08/25/22 Requesting physician: Gus Bradshaw Chief complaint: Afib rvr, aspiration pneumonia Narrative: 81-year-old lady, former 40+ pack-year smoker, quit 13 years prior, with underlying history of COPD and bronchiectasis followed by Dr. Aldana with multiple recent exacerbations requiring hospitalization at [facility], most recent sputum cultures positive for Corynebacterium and Pseudomonas fluorescens treated on outpatient basis with cyclical nebulized tobramycin admitted on 08/23/2022 with worsening cough in, dyspnea, and mild hypoxemia. She had a CT chest that demonstrated known left lower lobe bronchiectasis with some mucus impaction, but no signs of all lobar pneumonia. She was empirically treated with Zosyn and systemic glucocorticoids. At the time of my examination patient appears to be close to her baseline respiratory status. Review of Systems Constitutional: Constitutional: Denies daytime sleepiness, Denies excessive sweating, Denies fatigue, Denies fever(s), Denies lethargy, Denies malaise, Denies night sweats, Denies snoring and Denies weight loss Eyes: Eyes: Denies blurry vision and Denies itchy eyes ENT: Denies nasal congestion, Denies post nasal drip, Denies sinus pain, Denies sinus pressure and Denies other ( Thrush) Cardiovascular: Cardiovascular: Denies chest pain, Denies pedal edema, Denies dyspnea, Denies orthopnea and Denies paroxysmal nocturnal dyspnea Respiratory: Respiratory: Reports cough, Denies hemoptysis, Denies excessive phlegm production, Denies dyspnea, Denies snoring and Denies wheezing Gastrointestinal: Gastrointestinal: Denies abdominal pain and Denies heartburn Musculoskeletal: Musculoskeletal: Denies myalgias, Denies arthralgias and Denies joint swelling Integumentary/Breasts: Skin/Breast: Denies rash Neurologic: Denies memory loss and Denies seizure-like activity Psychiatric: Psychiatric: Denies abnormal sleep pattern, Denies anxiety and Denies memory loss Endocrine: Endocrine: Denies excessive sweating, Denies fatigue and Denies heat intolerance Hematologic/Lymphatic: Hematologic/Lymphatic: Denies easy bruising Allergic/Immunologic: Allergic/Immunologic: Denies itchy eyes, Denies seasonal rhinorrhea and Denies wheezing PMFSH Past Medical History Medical History Acute encephalopathy Acute hypokalemia Acute respiratory failure with hypoxia Anemia Anemia Aspiration pneumonia Atrial fibrillation with RVR Bronchiectasis CAD (coronary artery disease) Chronic dyspnea COPD (chronic obstructive pulmonary disease) GI bleed Pseudomonal pneumonia Pseudomonas respiratory infection Pulmonary nodules Family History Family History Other No family history of cancer Surgical History Surgical History History of cholecystectomy History of hip replacement History of knee replacement History of quadruple bypass Social History Social History Household Members: Family Housing: House Are you a primary child care centre manager to a significant other at home: No Do you presently have visiting nurse or other home services: Yes Alcohol intake: never Patient Tobacco Use Status: Former Tobacco user Tobacco use type: Cigarette service: No Current occupational status: retired Meds Allergies Allergy/AdvReac Type Severity Reaction Status Date / Time carvedilol Allergy Shortness Verified 07/26/22 10:16 of Breath sertraline [From Zoloft] Allergy Shortness Verified 07/26/22 10:16 of Breath spironolactone Allergy Shortness Verified 07/26/22 10:16 of Breath Active Medications: Current Medications Acetaminophen (Acetaminophen 325 Mg Tablet) 650 mg PO Q6H PRN PRN Reason: Pain, Mild (Pain Scale 1-3) Last Admin: 08/25/22 13:25 Dose: 650 mg Apixaban (Apixaban 2.5 Mg Tablet) 2.5 mg PO BID [facility] Last Admin: 08/25/22 08:59 Dose: 2.5 mg Diltiazem HCl (Diltiazem Hcl Cd 240 Mg Cap.Er.Deg) 240 mg PO DAILY [facility]; Protocol Last Admin: 08/25/22 08:58 Dose: 240 mg Docusate Sodium (Docusate Sodium 100 Mg Capsule) 100 mg PO DAILY PRN PRN Reason: Constipation Docusate Sodium (Docusate Sodium 100 Mg Capsule) 100 mg PO BEDTIME [facility] Last Admin: 08/24/22 20:12 Dose: 100 mg Ferrous Sulfate (Ferrous Sulfate 324 Mg Tablet.Dr) 324 mg PO DAILY [facility] Last Admin: 08/25/22 08:58 Dose: 324 mg Fluticasone Propionate (Fluticasone Propionate Nasal 16 Gm [place]) 1 spray NOSTRIL-B BID [facility] Last Admin: 08/25/22 08:59 Dose: 1 spray Furosemide (Furosemide 20 Mg Tablet) 20 mg PO DAILY [facility]; Protocol Last Admin: 08/25/22 08:59 Dose: 20 mg Glucose (Glucose Gel 15 Gm Gel..Gram.) 15 gm PO Q15M PRN; Protocol PRN Reason: per Hypoglycemia Standing Ord. Piperacillin Sod/Tazobactam (Sod 4.5 gm/ Sodium Chloride) 100 mls @ 200 mls/hr IV Q8H [facility] Last Infusion: 08/25/22 14:40 Dose: Infused Dextrose (D10) 250 mls @ 750 mls/hr IV Q15M PRN; Protocol PRN Reason: per Hypoglycemia Standing Ord. Insulin Human Lispro (Insulin Lispro 100 Unit/Ml 3 Ml Vial) 0 unit SUBCUT QIDACHS [facility]; Protocol Last Admin: 08/25/22 11:52 Dose: 6 unit Ipratropium [place] (Ipratropium [place] 0.5 Mg/2.5 Ml Solution) 0.5 mg INHALE RQ4H WHILE AWAKE [facility] Last Admin: 08/25/22 11:08 Dose: 0.5 mg Levalbuterol HCl (Levalbuterol Hcl 1.25 Mg/0.5 Ml Vial.Neb) 1.25 mg INHALE RQ4H WHILE AWAKE [facility] Last Admin: 08/25/22 11:08 Dose: 1.25 mg Lisinopril (Lisinopril 2.5 Mg Tablet) 2.5 mg PO DAILY [facility]; Protocol Last Admin: 08/25/22 08:59 Dose: 2.5 mg Methylprednisolone Sodium Succinate (Methylprednisolone Sod Succ 125 Mg/2 Ml Vial) 60 mg IVPUSH Q12H [facility] Last Admin: 08/25/22 09:16 Dose: Not Given Montelukast Sodium (Montelukast Sodium 10 Mg Tablet) 10 mg PO BEDTIME [facility] Last Admin: 08/24/22 20:11 Dose: 10 mg Patient Own ( Umeclidinium- Vilanterol [Anoro Ellipta] 62.5-25 Mcg /Actuation Bl 1 each INHALE RDAILY [facility] Last Admin: 08/25/22 12:00 Dose: 1 each Omeprazole (Omeprazole 40 Mg Capsule.Dr) 40 mg PO DAILY@0630 [facility] Last Admin: 08/25/22 06:37 Dose: 40 mg Ondansetron HCl (Ondansetron Hcl 4 Mg/2 Ml Vial) 4 mg IVPUSH Q8H PRN PRN Reason: Nausea and Vomiting Oxybutynin Chloride (Oxybutynin Chloride Er 5 Mg Tab.Er.24) 5 mg PO DAILY [facility] Last Admin: 08/25/22 08:58 Dose: 5 mg Pharmacy Consult (Consult Rx Perform Med Rec) 1 each MISCELLANE ONCE PRN PRN Reason: Consult order Sodium Chloride (0.9 % Sodium Chloride Flush 3 Ml Syringe) 3 ml IVFLUSH QSHIFT [facility] Last Admin: 08/25/22 08:59 Dose: 3 ml Tramadol HCl (Tramadol Hcl 50 Mg Tablet) 50 mg PO BID [facility] Last Admin: 08/25/22 09:00 Dose: 50 mg Home Medications Medication Instructions Recorded Confirmed Last Taken Type docusate sodium 100 mg capsule 100 mg PO BEDTIME 03/22/22 08/23/22 08/22/22 History fluticasone propionate 50 1 spray intranasal BID 03/22/22 08/23/22 08/22/22 History mcg/actuation nasal spray,suspension montelukast 10 mg tablet 10 mg PO BEDTIME 03/22/22 08/23/22 08/22/22 History nebulizers 03/22/22 07/04/22 Unknown History nitroglycerin 0.3 mg sublingual 0.3 mg sublingual Q5M PRN Chest 03/22/22 08/23/22 Unknown History tablet Pain omeprazole 40 mg capsule,delayed 40 mg PO DAILY 03/22/22 08/23/22 08/23/22 History release oxybutynin chloride 5 mg 5 mg PO DAILY 03/22/22 08/23/22 08/23/22 History tablet,extended release 24 hr tramadol 50 mg tablet 50 mg PO BID 03/22/22 08/23/22 08/23/22 History furosemide 20 mg tablet 1 tab PO DAILY 04/06/22 08/23/22 08/23/22 History lisinopril 2.5 mg tablet 1 tab PO DAILY 04/06/22 08/23/22 08/23/22 History umeclidinium 62.5 mcg-vilanterol 1 ea inhalation DAILY 12/13/22 03/14/23 03/14/23 History 25 mcg/actuation powdr for inhalation (Anoro Ellipta) apixaban 2.5 mg tablet (Eliquis) 2.5 mg PO BID 08/04/22 08/23/22 08/21/22 History albuterol sulfate 90 mcg/actuation 2 puff inhalation Q4H PRN 08/23/22 08/23/22 Unknown History aerosol inhaler (Ventolin HFA) Shortness Of Breath ferrous sulfate 325 mg (65 mg 325 mg PO DAILY 08/23/22 08/23/22 08/23/22 History iron) tablet prednisone 10 mg tablet 10 mg PO BID 08/23/22 08/23/22 08/23/22 History Physical Exam Vital Signs: Vital Signs: Last Vital Signs Temp 97.9 F 08/25/22 10:49 Pulse 75 08/25/22 11:09 Resp 18 08/25/22 11:09 BP 156/72 H 08/25/22 10:49 Pulse Ox 98 08/25/22 10:49 O2 Del Method 08/25/22 10:49 Oxygen Flow Rate 4 08/23/22 15:06 BMI result Body Mass Index 31.0 Const: General: no acute distress and alert Nutritional Appearance: not obese Orientation/consciousness: Other orientation findings ( oriented) HEENT: Head: Yes atraumatic Mouth: no other ( thrush) Throat: No postnasal drainage Eyes: General: appearance normal, both eyes and all related structures Sclerae: sclerae normal EOM: EOMs intact bilaterally Neck: Neck: Yes supple Lymphatic: no lymphadenopathy noted Resp: Effort & Inspection: normal respiratory effort and no use of accessory muscles Auscultation: clear to auscultation bilaterally Cardio: Rate: regular rate Rhythm: regular rhythm Heart sounds: no gallops, no murmurs and no rubs GI: Palpation (GI): Soft to palpation and Other GI palpation findings present ( nontender) Skin: General skin exam: other ( warm) Rashes: no rashes Extrem: General: No clubbing, No cyanosis and No edema Results Laboratory Findings 08/25/22 06:46 08/25/22 06:46 Abnormal lab findings: Abnormal Labs 08/23/22 08/23/22 08/23/22 16:58 16:58 16:58 WBC 14.3 H RBC 3.30 L Hgb 10.4 L Hct 30.8 L RDW 16.3 H Plt Count 157 L Immature Gran % (Auto) 2.7 H Neut % (Auto) 84.7 H Lymph % (Auto) 8.1 L Lymph # (Auto) Abs Immat Gran (auto) 0.38 H Absolute Neuts (auto) 12.1 H BUN 38 H Creatinine 1.45 H POC Glucose Random Glucose 215 H Fasting Glucose Calcium Total Bilirubin 1.7 H ALT 40 H Troponin I High Sens 54.0 H* B-Natriuretic Peptide Total Protein 5.3 L Albumin 3.3 L Ur Leukocyte Esterase 08/23/22 08/23/22 08/23/22 16:58 18:43 19:02 WBC RBC Hgb Hct RDW Plt Count Immature Gran % (Auto) Neut % (Auto) Lymph % (Auto) Lymph # (Auto) Abs Immat Gran (auto) Absolute Neuts (auto) BUN Creatinine POC Glucose Random Glucose Fasting Glucose Calcium Total Bilirubin ALT Troponin I High Sens 58.4 H* B-Natriuretic Peptide 164 H Total Protein Albumin Ur Leukocyte Esterase Trace H 08/24/22 08/24/22 08/25/22 05:40 05:40 06:46 WBC 12.0 H 15.0 H RBC 3.35 L 3.14 L Hgb 10.4 L 9.8 L Hct 30.9 L 29.3 L RDW 16.2 H Plt Count 141 L 136 L Immature Gran % (Auto) 3.7 H 2.9 H Neut % (Auto) 86.8 H 92.2 H Lymph % (Auto) 7.3 L 2.7 L Lymph # (Auto) 0.9 L 0.4 L Abs Immat Gran (auto) 0.44 H 0.44 H Absolute Neuts (auto) 10.4 H 13.9 H BUN 35 H Creatinine POC Glucose Random Glucose 337 H Fasting Glucose Calcium Total Bilirubin ALT Troponin I High Sens B-Natriuretic Peptide Total Protein Albumin Ur Leukocyte Esterase 08/25/22 08/25/22 06:46 10:48 WBC RBC Hgb Hct RDW Plt Count Immature Gran % (Auto) Neut % (Auto) Lymph % (Auto) Lymph # (Auto) Abs Immat Gran (auto) Absolute Neuts (auto) BUN 37 H Creatinine 1.69 H POC Glucose 281 H Random Glucose Fasting Glucose 433 H* Calcium 8.2 L Total Bilirubin 1.1 H ALT 44 H Troponin I High Sens B-Natriuretic Peptide Total Protein 5.0 L Albumin 3.2 L Ur Leukocyte Esterase Microbiology: Microbiology 08/23/22 17:16 Blood - Venous Blood Culture - Preliminary No growth after 24 hours. 08/23/22 16:58 Blood - Venous Blood Culture - Preliminary No growth after 24 hours. Assessment and Plan (1) Bronchiectasis: Status: Inactive (2) COPD (chronic obstructive pulmonary disease): Status: Acute Plan Impression: 81-year-old lady with underlying COPD and recurrent bronchiectasis admitted with dyspnea and worsening cough. Treated with empiric broad-spectrum antibiotics, now essentially at her baseline respiratory status. Recommendations: discontinue systemic glucocorticoids, consider switching Zosyn to Levaquin for total of 7 days of therapy and outpatient resumption of her cycled nebulized tobramycin. Time Spent With Patient Time: Total time managing care of this patient today ____ minutes. Procedures Date of Service Date of Service: 08/25/22
--- NOTE | 2022-08-25 15:35 | P.PNCA_ITS ---
Subjective Subjective Date of Service: 08/25/22 <CINDA Stokes - Last Filed: 08/25/22 17:02> 08/26/22 <Swapnil Bassett MD - Last Filed: 08/26/22 19:31> Principal diagnosis: PAF, afib RVR Asp PNA <CINDA Stokes - Last Filed: 08/25/22 17:02> Interval history: Seen at 1250. Today she is seen resting in bed. She tells me that her breathing is better compared than admit. No chest pains, palpitations, dizziness. Daughter at bedside. Tele showing afib/ flutter, rates 70-100. <CINDA Stokes - Last Filed: 08/25/22 17:02> Review of Systems Review of Systems as above <CINDA Stokes - Last Filed: 08/25/22 17:02> Yes all other systems are reviewed and are negative <CINDA Stokes - Last Filed: 08/25/22 17:02> Physical Exam Vital Signs: Last Vital Signs Temp 97.9 F 08/25/22 10:49 Pulse 75 08/25/22 11:09 Resp 18 08/25/22 11:09 BP 156/72 H 08/25/22 10:49 Pulse Ox 98 08/25/22 10:49 O2 Del Method 08/25/22 10:49 Oxygen Flow Rate 4 08/23/22 15:06 BMI result Body Mass Index 31.0 <CINDA Stokes - Last Filed: 08/25/22 17:02> Const General: cooperative, comfortable and no acute distress <CINDA Stokes - Last Filed: 08/25/22 17:02> Orientation/consciousness: patient oriented x3 <CINDA Stokes Last Filed: 08/25/22 17:02> Neck Neck: Yes normal visual inspection <CINDA Stokes - Last Filed: 08/25/22 17:02> Resp Other: scattered rales and rhonci <CINDA Stokes - Last Filed: 08/25/22 17:02> Effort & Inspection: normal respiratory effort <[facility] - Last Filed: 08/25/22 17:02> Auscultation: no wheezes <Paige Hinton [employer] ADMINISTRATIVE ASSISTANT-C - Last Filed: 08/25/22 17:02> Cardio Rate: regular rate <[facility]inton [facility] - Last Filed: 08/25/22 17:02> Heart sounds: S1 normal heart sound present, S2 normal heart sound present, no gallops, no murmurs and no rubs <Paige Hinton [employer] ESTATE ADMINISTRATIVE ASSISTANT-C - Last Filed: 08/25/22 17:02> GI Inspection: Yes normal to inspection <[facility] - Last Filed: 08/25/22 17:02> Skin Other: Ecchimosis areas noted on lower legs ( daughter states she was applying compression stockings at home), ecchimotic areas noted on arms <Paige Hinton [employer] ESTATE ADMINISTRATIVE ASSISTANT-C - Last Filed: 08/25/22 17:02> Neuro General: patient oriented x3 <[facility] Hinton [facility] - Last Filed: 08/25/22 17:02> Psych Appearance: grossly normal <[facility] - Last Filed: 08/25/22 17:02> Mental Status: mental status grossly normal <[facility] Hinton [facility] - Last Filed: 08/25/22 17:02> Speech and movement: Normal speech and movement present <Paige Mary Jane [employer]STATE ADMINISTRATIVE ASSISTANT-C - Last Filed: 08/25/22 17:02> Objective Labs and Meds Result diagrams: 08/25/22 06:46 08/25/22 06:46 <[facility] Hinton [facility] - Last Filed: 08/25/22 17:02> Lab results: Laboratory Results - last 24 hr 08/25/22 08/25/22 08/25/22 06:46 06:46 10:48 WBC 15.0 H RBC 3.14 L Hgb 9.8 L Hct 29.3 L MCV 93.3 MCH 31.2 MCHC 33.4 RDW 16.2 H Plt Count 136 L MPV 10.9 Immature Gran % (Auto) 2.9 H Neut % (Auto) 92.2 H Lymph % (Auto) 2.7 L [place] % (Auto) 2.1 Eos % (Auto) 0.0 Baso % (Auto) 0.1 Lymph # (Auto) 0.4 L [place] # (Auto) 0.3 Eos # (Auto) 0.0 Baso # (Auto) 0.0 Abs Immat Gran (auto) 0.44 H Absolute Neuts (auto) 13.9 H Absolute Nucleated RBC 0.000 Nucleated RBC % (auto) 0.0 Smear Tech's Comments VERIFIED Sodium 135 Potassium 4.7 Chloride 99 Carbon Dioxide 25 Anion Gap 16 BUN 37 H Creatinine 1.69 H Estim Creat Clear Calc 20.5 Estimated GFR 29 POC Glucose 281 H Fasting Glucose 433 H* Calcium 8.2 L Total Bilirubin 1.1 H AST 17 ALT 44 H Alkaline Phosphatase 96 Total Protein 5.0 L Albumin 3.2 L <CINDA Stokes - Last Filed: 08/25/22 17:02> Progress Note: A&P Assessment and plan (1) Paroxysmal A-fib: Status: Acute <CINDA Stokes - Last Filed: 08/25/22 17:02> Assessment and Plan: Hx of paroxysmal Afib. On Cardizem and Eliquis. Follows with Dr Coto for cardiology at [facility]. Admit for sob and being tx for aspiratin PNA. EKG and tele showed afib RVR. She was continued on her usual Diltiazem and was given Digoxin load yesterday. Tele currently showing afib/ flutter with rates 70-100. She de nies heart palpitations currently but does admit to having them when heart was going faster. Cr 1.69 today, up from yesterday. Continue to watch for heart rate control. If rates become more elevated and kidney function allows, Plan to start on Digoxin 0.125mg po EOD. BMP in am. Ongoing management of her PNA as directed by hospitalist. Continue Eliquis for anticoagulation, on renal dosing. Ongoing Tele monitoring. We will follow. <CINDA Stokes - Last Filed: 17:02> (2) Atrial fibrillation with RVR: Status: Acute <CINDA Stokes - Last Filed: 08/25/22 17:02> (3) Aspiration pneumonia: Status: Acute <CINDA Stokes - Last Filed: 08/25/22 17:02> Assessment and Plan: Seen and examined on 08/25 Improving clinically. HR better controlled after dig load. We will follow along. <Swapnil Bassett MD - Last Filed: 08/26/22 19:31> Time Spent With Patient Time: Total time managing care of this patient today _20___ minutes. <CINDA Stokes - Last Filed: 08/25/22 17:02> Progress Note: Quality Stroke Does the patient have a stroke diagnosis?: No <CINDA Stokes - Last Filed: 08/25/22 17:02> Procedures Date of Service Date of Service: 08/25/22 <CINDA Stokes - Last Filed: 08/25/22 17:02>
[2022-08-25 17:12] LABS: Glucose, Whole Blood 121 mg/dL (60-115)
[2022-08-25 20:12] LABS: Glucose, Whole Blood 231 mg/dL (60-115)
[2022-08-25] MEDS: Montelukast Sodium 10 MG TABLET PO (20:35)
[2022-08-25] MEDS: methylPREDNISolone Sod Succ 125 MG/2 ML VIAL 60 MG IVPUSH (20:36)
[2022-08-26] VITALS (10 sets, daily range): BP systolic 132–173; BP diastolic 66–83; PULSE 77–87; RESP 16–20; TEMP 36.3–36.9; O2SAT 92–97
--- NOTE | 2022-08-26 04:00 | PC.NURSE ---
Pt BP 173/83, HR 77, asymptomatic. MD Rodriguez notified, no new orders at this time.
[2022-08-26] MEDS: Piperacillin Sodium/Tazobactam 4.5 GM in 0.9 % Sodium Chloride 100 ML IV (05:21)
--- NOTE | 2022-08-26 05:51 | PC.NURSE ---
Pt is more confused than yesterday. alert to herself currently, delayed response at times and very repetitive. Mumbles her words at times. She is talking with her eyes closed, stating i need water and I need sleep . unable to tell if she is just really tired. Per MASK DESIGNER she was awake the previous night and didn't sleep at all. Patient also reports being tired. She denies a headache and says she just has a stomache ache. she refused her prilosec. denies nausea. MD Rodriguez notified.
[2022-08-26 07:00] LABS: MANUAL DIFF FLAG NO
[2022-08-26 07:04] LABS: Basophils Percent Auto 0.1 % (0-2); Hematocrit 29.1 % (37.0-47.0); Hemoglobin 9.7 g/dl (12.0-16.0); Imm Gran Abs Auto 0.53 X10*3/uL (0.00-0.03); Imm Gran Pct Auto 4.8 % (0.0-0.4); Lymphocytes Absolute Auto 0.4 X10*3/uL (1.2-4.9); Lymphocytes Percent Auto 3.4 % (20-40); Mean Corpuscular HGB Conc 33.3 g/dl (31.0-35.0); Mean Corpuscular Hemoglobin 31.1 pg (27.0-33.0); Mean Corpuscular Volume 93.3 fL (80.0-98.0); Mean Platelet Volume 10.8 fL (9.4-12.3); Monocytes Absolute Auto 0.2 X10*3/uL (0.1-1.2); Monocytes Percent Auto 2.1 % (2-11); Neutrophils Absolute Auto 9.8 x10*3/uL (2.0-8.3); Neutrophils Percent Auto 89.6 % (45-73); Platelet Count 124 X10*3/uL (160-400); Red Blood Count 3.12 X10*6/uL (4.20-5.50); Red Cell Distribution Width 16.4 % (11.0-16.0)
[2022-08-26 07:23] LABS: Alanine Aminotransferase 43 U/L (0-31); Albumin Level 3.1 g/dL (3.5-5.0); Alkaline Phosphatase 93 U/L (39-117); Anion Gap 16 (12-20); Aspartate Amino Transferase 18 U/L (5-31); Bilirubin Total 1.3 mg/dL (0.0-1.0); Blood Urea Nitrogen 31 mg/dL (9-16); Calcium 8.4 mg/dL (8.4-10.2); Carbon Dioxide 27 mmol/L (22-29); Chloride 100 mmol/L (96-108); Creatinine Clr Calc Pharmacy 21.3; Estimated Glomerular Filt Rate 30; Glucose Fasting 317 mg/dL (60-99); Potassium 4.2 mmol/L (3.3-5.1); Sodium 139 mmol/L (135-145)
--- NOTE | 2022-08-26 07:38 | P.CDIM_ITS ---
PROVIDER RESPONSE TEXT: To clarify, the appropriate diagnosis supported by the clinical indicators: Systolic: Chronic QUERY TEXT: PHYSICIAN'S DOCUMENTATION REQUEST Date of Query: 08/25/2022 08:13 AM EDT Patient Name: Jenifer Mercado Admit Date: 08/24/2022 Dear Gus Bradshaw, A review of the medical record indicates additional documentation may be needed. Please review below and update the documentation accordingly. Clinical Indicators: Per MD progress note 08/24/22: Congestive heart failure -no acute exacerbation. BNP baseline -continue p.o. Lasix Please provide further specificity regarding the most likely type of CHF you are evaluating, treating , or monitoring. Systolic Please specify if Acute, Chronic, or Acute on chronic, or Unable to determine Diastolic Please specify if Acute, Chronic, or Acute on chronic, or Unable to determine Combined Systolic/Diastolic Please specify if Acute, Chronic, or Acute on chronic, or Unable to determine Other (explain) Clinically unable to determine (explain) Thank you, Tatyana David RN Use of terms such as suspected, likely, concern for, or probable (associated with a specific diagnosi s that is being evaluated, monitored, or treated as if it exists) are acceptable and can be coded in the inpatient se tting, when documented at the time of discharge. Please use your independent medical judgment in providing your response. THIS QUERY IS PART OF THE PERMANENT MEDICAL RECORD
[2022-08-26] MEDS: Ipratropium Bromide 0.5 MG/2.5 ML SOLUTION INHALE ×4 (07:39→18:42)
[2022-08-26] MEDS: 0.9 % Sodium Chloride Flush 3 ML SYRINGE IVFLUSH ×3 (08:19→20:35)
[2022-08-26] MEDS: lisinopriL 2.5 MG TABLET PO (08:19)
[2022-08-26] MEDS: Ferrous Sulfate 324 MG TABLET.DR PO (08:20)
[2022-08-26] MEDS: Furosemide 20 MG TABLET PO (08:20)
[2022-08-26] MEDS: traMADoL HCL 50 MG TABLET PO ×2 (08:21→20:28)
[2022-08-26] MEDS: dilTIAZem HCL CD 240 MG CAP.ER.DEG PO (08:21)
[2022-08-26] MEDS: Apixaban 2.5 MG TABLET PO ×2 (08:21→20:29)
[2022-08-26] MEDS: oxyBUTYnin chloride ER 5 MG TAB.ER.24 PO (08:22)
[2022-08-26 10:39] LABS: Glucose, Whole Blood 286 mg/dL (60-115)
--- NOTE | 2022-08-26 10:39 | MHC.CM.PN ---
Per ROUNDS discussion, Patient may benefit from a PT eval to assist with dc planning. CM will follow.
[2022-08-26] MEDS: Insulin Lispro 100 UNIT/ML 3 ML VIAL SUBCUT ×3 (10:42→20:29)
[2022-08-26] MEDS: Acetaminophen 325 MG TABLET 650 MG PO (11:02)
[2022-08-26] MEDS: levoFLOXacin 250 MG TABLET PO (11:03)
--- NOTE | 2022-08-26 13:29 | HO.PM.IMPN ---
Subjective Subjective Date of Service: 08/26/22 Interval History: No acute issues overnight. Breathing at baseline Review of Systems Denies chest pain States shortness of breath is improved Denies nausea vomiting diarrhea Denies fever chills Physical Exam Vital Signs: Vital Signs: Last Vital Signs Temp 98.1 F 08/26/22 11:41 Pulse 87 08/26/22 12:02 Resp 18 08/26/22 12:02 BP 169/66 H 08/26/22 11:41 Pulse Ox 97 08/26/22 11:41 O2 Del Method 08/26/22 11:41 Oxygen Flow Rate 4 08/23/22 15:06 BMI result Body Mass Index 31.0 Resp: Other: Diminished at bases. Scant expiratory wheezes Cardio: Other: No S4; positive S1-S2; no S3 murmurs rubs or gallops GI: Other: Soft nontender nondistended normoactive bowel sounds Extrem: Other: No edema bilaterally Objective Data Active Medications Acetaminophen (Acetaminophen 325 Mg Tablet) 650 mg PO Q6H PRN PRN Reason: Pain, Mild (Pain Scale 1-3) Last Admin: 08/26/22 11:02 Dose: 650 mg Documented By: ANA M Apixaban (Apixaban 2.5 Mg Tablet) 2.5 mg PO BID [facility] Last Admin: 08/26/22 08:21 Dose: 2.5 mg Documented By: ANA M Diltiazem HCl (Diltiazem Hcl Cd 240 Mg Cap.Er.Deg) 240 mg PO DAILY [facility]; Protocol Last Admin: 08/26/22 08:21 Dose: 240 mg Documented By: ANA M Docusate Sodium (Docusate Sodium 100 Mg Capsule) 100 mg PO DAILY PRN PRN Reason: Constipation Docusate Sodium (Docusate Sodium 100 Mg Capsule) 100 mg PO BEDTIME [facility] Last Admin: 08/25/22 20:35 Dose: Not Given Documented By: JOBY Non-Admin Reason: Patient Refused Ferrous Sulfate (Ferrous Sulfate 324 Mg Tablet.Dr) 324 mg PO DAILY [facility] Last Admin: 08/26/22 08:20 Dose: 324 mg Documented By: ANA M Fluticasone Propionate (Fluticasone Propionate Nasal 16 Gm [place]) 1 spray NOSTRIL-B BID [facility] Last Admin: 08/26/22 08:22 Dose: Not Given Documented By: ANA M Non-Admin Reason: Patient Refused Furosemide (Furosemide 20 Mg Tablet) 20 mg PO DAILY [facility]; Protocol Last Admin: 08/26/22 08:20 Dose: 20 mg Documented By: ANA M Glucose (Glucose Gel 15 Gm Gel..Gram.) 15 gm PO Q15M PRN; Protocol PRN Reason: per Hypoglycemia Standing Ord. Dextrose (D10) 250 mls @ 750 mls/hr IV Q15M PRN; Protocol PRN Reason: per Hypoglycemia Standing Ord. Insulin Human Lispro (Insulin Lispro 100 Unit/Ml 3 Ml Vial) 0 unit SUBCUT QIDACHS [facility]; Protocol Last Admin: 08/26/22 10:42 Dose: 6 unit Documented By: ANA M Ipratropium [place] (Ipratropium [place] 0.5 Mg/2.5 Ml Solution) 0.5 mg INHALE RQ4H WHILE AWAKE [facility] Last Admin: 08/26/22 11:59 Dose: 0.5 mg Documented By: HILDA Levalbuterol HCl (Levalbuterol Hcl 1.25 Mg/0.5 Ml Vial.Neb) 1.25 mg INHALE RQ4H WHILE AWAKE [facility] Last Admin: 08/26/22 11:59 Dose: 1.25 mg Documented By: HILDA Levofloxacin (Levofloxacin 250 Mg Tablet) 250 mg PO Q24H [facility] Last Admin: 08/26/22 11:03 Dose: 250 mg Documented By: ANA M Lisinopril (Lisinopril 2.5 Mg Tablet) 2.5 mg PO DAILY [facility]; Protocol Last Admin: 08/26/22 08:19 Dose: 2.5 mg Documented By: ANA M Montelukast Sodium (Montelukast Sodium 10 Mg Tablet) 10 mg PO BEDTIME [facility] Last Admin: 08/25/22 20:35 Dose: 10 mg Documented By: JOBY Patient Own ( Umeclidinium- Vilanterol [Anoro Ellipta] 62.5-25 Mcg /Actuation Bl 1 each INHALE RDAILY [facility] Last Admin: 08/26/22 07:39 Dose: 1 each Documented By: HILDA Omeprazole (Omeprazole 40 Mg Capsule.) 40 mg PO DAILY@0630 [facility] Last Admin: 08/26/22 05:31 Dose: Not Given Documented By: JOBY Non-Admin Reason: refuse Ondansetron HCl (Ondansetron Hcl 4 Mg/2 Ml Vial) 4 mg IVPUSH Q8H PRN PRN Reason: Nausea and Vomiting Oxybutynin Chloride (Oxybutynin Chloride Er 5 Mg Tab.Er.24) 5 mg PO DAILY [facility] Last Admin: 08/26/22 08:22 Dose: 5 mg Documented By: ANA M Pharmacy Consult (Consult Rx Perform Med Rec) 1 each MISCELLANE ONCE PRN PRN Reason: Consult order Sodium Chloride (0.9 % Sodium Chloride Flush 3 Ml Syringe) 3 ml IVFLUSH QSHIFT [facility] Last Admin: 08/26/22 08:19 Dose: 3 ml Documented By: ANA M Tramadol HCl (Tramadol Hcl 50 Mg Tablet) 50 mg PO BID [facility] Last Admin: 08/26/22 08:21 Dose: 50 mg Documented By: ANA M Labs 08/26/22 06:42 08/26/22 06:42 Labs: Laboratory Results - last 24 hr 08/25/22 08/25/22 08/26/22 16:53 19:55 06:42 MCV 93.3 MCH 31.1 MCHC 33.3 RDW 16.4 H Plt Count 124 L MPV 10.8 Immature Gran % (Auto) 4.8 H Neut % (Auto) 89.6 H Lymph % (Auto) 3.4 L [place] % (Auto) 2.1 Eos % (Auto) 0.0 Baso % (Auto) 0.1 Lymph # (Auto) 0.4 L [place] # (Auto) 0.2 Eos # (Auto) 0.0 Baso # (Auto) 0.0 Abs Immat Gran (auto) 0.53 H Absolute Neuts (auto) 9.8 H Absolute Nucleated RBC 0.000 Nucleated RBC % (auto) 0.0 Anion Gap Estim Creat Clear Calc Estimated GFR POC Glucose 121 H 231 H Fasting Glucose Calcium Total Bilirubin AST ALT Alkaline Phosphatase Total Protein Albumin 08/26/22 08/26/22 06:42 10:35 MCV MCH MCHC RDW Plt Count MPV Immature Gran % (Auto) Neut % (Auto) Lymph % (Auto) [place] % (Auto) Eos % (Auto) Baso % (Auto) Lymph # (Auto) [place] # (Auto) Eos # (Auto) Baso # (Auto) Abs Immat Gran (auto) Absolute Neuts (auto) Absolute Nucleated RBC Nucleated RBC % (auto) Anion Gap 16 Estim Creat Clear Calc 21.3 Estimated GFR 30 POC Glucose 286 H Fasting Glucose 317 H Calcium 8.4 Total Bilirubin 1.3 H AST 18 ALT 43 H Alkaline Phosphatase 93 Total Protein 5.0 L Albumin 3.1 L Microbiology Microbiology Results: Microbiology 08/23/22 17:16 Blood Culture - Preliminary Blood - Venous No growth after 48 hours. 08/23/22 16:58 Blood Culture - Preliminary Blood - Venous No growth after 48 hours. Assessment and Plan (1) COPD (chronic obstructive pulmonary disease): Status: Acute Assessment and Plan: 81-year-old female with COPD, history of pseudomonal pneumonia, coronary artery disease, paroxysmal atrial fibrillation anticoagulated with Eliquis, congestive heart failure admitted for COPD exacerbation, aspiration pneumonia, and atrial fibrillation with RVR. 1.COPD exacerbation with aspiration pneumonia -Seen by Pulmonary. .. Will switch to Levaquin p.o. -DC steroids -levalbuterol/ipratropium nebs q.4h while awake (avoid albuterol per patient's daughter request) 2.Paroxysmal atrial fibrillation with RVR -resume Eliquis 2.5 mg b.i.d. for anticoagulation -continue p.o. diltiazem -dig load 3.Congestive heart failure -no acute exacerbation. BNP baseline -continue p.o. Lasix Eliquis Full code PT consult Patient requires ongoing hospitalization to treat aspiration pneumonia with IV antibiotics and for did slow to treat paroxysmal atrial fib (2) Paroxysmal A-fib: Status: Acute Time Spent With Patient Time: Total time managing care of this patient today ____ minutes. Quality Stroke Does the patient have a stroke diagnosis?: No VTE Prior VTE?: No VTE Risk Level:: Medical - moderate - high VTE Device Contraindication: Treatment Not Indicated VTE Drug Contraindication: N/A - Med Ordered
--- NOTE | 2022-08-26 14:44 | MHC.CM.PN ---
PT is recommending home with services;CM will continue to follow.
--- NOTE | 2022-08-26 15:23 | PC.NURSE ---
Pt is alert and orientedx 3 but with periods of confusion. Pt had 2 loose Bms this am and in the meantime, her daughter kept calling the hospital several times issuing instructions on what to do with her mom, even though her mother was being taken care of. She came in around 1pm and continued being demanding, saying that her mother was left in urine. The POCKET SETTER LOCKSTITCH came and told me that the pt's daughter wanted to see me. on arrival to the room, pt's daughter was talking loudly to the BRT and one of the aids. Pt's daughter wanted her mom to be dressed in her street clothes. After talking to her, this RN and POCKET SETTER LOCKSTITCH got the pt on the recliner with her shoes on. Pt's daughter also noted to be taking photos of staff members.
[2022-08-26 15:37] LABS: Glucose, Whole Blood 180 mg/dL (60-115)
--- NOTE | 2022-08-26 19:31 | PM.PNCARD ---
Subjective Subjective Date of Service: 08/26/22 Principal diagnosis: PAF, afib RVR Asp PNA Interval history: Seen and examined at bedside. More SOB today (was seen in the morning), was little confused but was just waking up at the time of interview. Physical Exam Vital Signs: Last Vital Signs Temp 98.0 F 08/26/22 19:12 Pulse 81 08/26/22 19:12 Resp 17 08/26/22 19:12 BP 151/71 H 08/26/22 19:12 Pulse Ox 92 08/26/22 19:12 O2 Del Method 08/26/22 19:12 Oxygen Flow Rate 4 08/23/22 15:06 BMI result Body Mass Index 31.0 GENERAL APPEARANCE: in no acute distress, pleasant. NECK: no carotid bruit, no jugular venous distention. SKIN: no suspicious lesions, warm and dry. HEART: no murmurs, irregular rate and rhythm. LUNGS: No significant wheezing today ABDOMEN: soft, nontender. EXTREMITIES: no edema. PERIPHERAL PULSES: equal. NEUROLOGIC: No gross deficits, AAO X 3 Objective Labs and Meds 08/26/22 06:42 08/26/22 06:42 Lab results: Laboratory Results - last 24 hr 08/25/22 08/26/22 08/26/22 19:55 06:42 06:42 WBC 11.0 H RBC 3.12 L Hgb 9.7 L Hct 29.1 L MCV 93.3 MCH 31.1 MCHC 33.3 RDW 16.4 H Plt Count 124 L MPV 10.8 Immature Gran % (Auto) 4.8 H Neut % (Auto) 89.6 H Lymph % (Auto) 3.4 L [place] % (Auto) 2.1 Eos % (Auto) 0.0 Baso % (Auto) 0.1 Lymph # (Auto) 0.4 L [place] # (Auto) 0.2 Eos # (Auto) 0.0 Baso # (Auto) 0.0 Abs Immat Gran (auto) 0.53 H Absolute Neuts (auto) 9.8 H Absolute Nucleated RBC 0.000 Nucleated RBC % (auto) 0.0 Sodium 139 Potassium 4.2 Chloride 100 Carbon Dioxide 27 Anion Gap 16 BUN 31 H Creatinine 1.62 H Estim Creat Clear Calc 21.3 Estimated GFR 30 POC Glucose 231 H Fasting Glucose 317 H Calcium 8.4 Total Bilirubin 1.3 H AST 18 ALT 43 H Alkaline Phosphatase 93 Total Protein 5.0 L Albumin 3.1 L 08/26/22 08/26/22 10:35 15:29 WBC RBC Hgb Hct MCV MCH MCHC RDW Plt Count MPV Immature Gran % (Auto) Neut % (Auto) Lymph % (Auto) [place] % (Auto) Eos % (Auto) Baso % (Auto) Lymph # (Auto) [place] # (Auto) Eos # (Auto) Baso # (Auto) Abs Immat Gran (auto) Absolute Neuts (auto) Absolute Nucleated RBC Nucleated RBC % (auto) Sodium Potassium Chloride Carbon Dioxide Anion Gap BUN Creatinine Estim Creat Clear Calc Estimated GFR POC Glucose 286 H 180 H Fasting Glucose Calcium Total Bilirubin AST ALT Alkaline Phosphatase Total Protein Albumin Progress Note: A&P Assessment and plan (1) Atrial fibrillation with RVR: Status: Acute (2) Aspiration pneumonia: Status: Acute Plan 81 female with Afib with RVR and PNA. On antibiotics. c/w diltiazem. If HR poorly controlled then Dig 125 mcg PO q48. We will follow along. Time Spent With Patient Time: Total time managing care of this patient today ____ minutes. Progress Note: Quality Stroke Does the patient have a stroke diagnosis?: No Procedures Date of Service Date of Service: 08/26/22
[2022-08-26 19:37] LABS: Glucose, Whole Blood 163 mg/dL (60-115)
[2022-08-26] MEDS: Montelukast Sodium 10 MG TABLET PO (20:28)
[2022-08-26] MEDS: Fluticasone Propionate Nasal 16 GM SPRAY 1 SPRAY NOSTRIL-B (20:35)
[2022-08-26] MEDS: Benzonatate 100 MG CAPSULE 200 MG PO (22:46)
[2022-08-27] VITALS (9 sets, daily range): BP systolic 135–175; BP diastolic 64–74; PULSE 78–89; RESP 15–20; TEMP 36.1–37.3; O2SAT 92–95
[2022-08-27] MEDS: Omeprazole 40 MG CAPSULE.DR PO (05:49)
[2022-08-27 06:44] LABS: Basophils Percent Auto 0.3 % (0-2); Eosinophils Percent Auto 0.2 % (0-4); Hematocrit 30.8 % (37.0-47.0); Hemoglobin 10.5 g/dl (12.0-16.0); Imm Gran Abs Auto 0.58 X10*3/uL (0.00-0.03); Imm Gran Pct Auto 4.2 % (0.0-0.4); Lymphocytes Absolute Auto 1.1 X10*3/uL (1.2-4.9); Lymphocytes Percent Auto 7.6 % (20-40); MANUAL DIFF FLAG SCAN; Mean Corpuscular HGB Conc 34.1 g/dl (31.0-35.0); Mean Corpuscular Hemoglobin 32.1 pg (27.0-33.0); Mean Corpuscular Volume 94.2 fL (80.0-98.0); Monocytes Absolute Auto 0.6 X10*3/uL (0.1-1.2); Monocytes Percent Auto 4.5 % (2-11); NRBC Pct Auto 0.5 /100WBC (0.0-0.2); Neutrophils Absolute Auto 11.6 x10*3/uL (2.0-8.3); Neutrophils Percent Auto 83.2 % (45-73); PLT CLUMP 1; Red Blood Count 3.27 X10*6/uL (4.20-5.50); Red Cell Distribution Width 16.7 % (11.0-16.0); SCAN SMEAR FLAG 1; White Blood Count 13.9 X10*3/uL (4.8-10.8)
[2022-08-27 07:15] LABS: Alanine Aminotransferase 50 U/L (0-31); Albumin Level 2.9 g/dL (3.5-5.0); Alkaline Phosphatase 89 U/L (39-117); Anion Gap 16 (12-20); Aspartate Amino Transferase 38 U/L (5-31); Bilirubin Total 1.1 mg/dL (0.0-1.0); Blood Urea Nitrogen 32 mg/dL (9-16); Calcium 8.4 mg/dL (8.4-10.2); Carbon Dioxide 23 mmol/L (22-29); Chloride 107 mmol/L (96-108); Creatinine Clr Calc Pharmacy 29.8; Estimated Glomerular Filt Rate 45; Glucose Fasting 148 mg/dL (60-99); Potassium 5.7 mmol/L (3.3-5.1); Sodium 140 mmol/L (135-145); Total Protein 4.9 g/dL (6.5-8.0)
[2022-08-27 07:23] LABS: Platelet Count 134 X10*3/uL (160-400); SLIDE REVIEW VERIFIED
[2022-08-27] MEDS: Ipratropium Bromide 0.5 MG/2.5 ML SOLUTION INHALE ×3 (07:53→17:12)
[2022-08-27 07:57] LABS: Glucose, Whole Blood 140 mg/dL (60-115)
[2022-08-27] MEDS: Ferrous Sulfate 324 MG TABLET.DR PO (08:48)
[2022-08-27] MEDS: oxyBUTYnin chloride ER 5 MG TAB.ER.24 PO (08:48)
[2022-08-27] MEDS: Furosemide 20 MG TABLET PO (08:49)
[2022-08-27] MEDS: lisinopriL 5 MG TABLET PO (08:49)
[2022-08-27] MEDS: levoFLOXacin 250 MG TABLET PO (08:49)
[2022-08-27] MEDS: dilTIAZem HCL CD 240 MG CAP.ER.DEG PO (08:49)
[2022-08-27] MEDS: traMADoL HCL 50 MG TABLET PO ×2 (08:50→20:19)
[2022-08-27] MEDS: Apixaban 2.5 MG TABLET PO ×2 (08:50→20:19)
[2022-08-27] MEDS: Fluticasone Propionate Nasal 16 GM SPRAY 1 SPRAY NOSTRIL-B ×2 (08:50→20:23)
[2022-08-27] MEDS: 0.9 % Sodium Chloride Flush 3 ML SYRINGE IVFLUSH ×3 (08:51→21:45)
[2022-08-27 11:27] LABS: Glucose, Whole Blood 192 mg/dL (60-115)
[2022-08-27] MEDS: Insulin Lispro 100 UNIT/ML 3 ML VIAL SUBCUT ×2 (11:43→20:20)
--- NOTE | 2022-08-27 11:55 | P.PNIM_ITS ---
Subjective Subjective Date of Service: 08/27/22 Interval History: No acute events overnight. No cardiac complaints Review of Systems Denies chest pain States shortness of breath is improved Denies nausea vomiting diarrhea Denies fever chills Physical Exam Vital Signs: Vital Signs: Last Vital Signs Temp 99.1 F 08/27/22 11:25 Pulse 85 08/27/22 11:51 Resp 18 08/27/22 11:51 BP 163/69 H 08/27/22 11:25 Pulse Ox 94 08/27/22 11:25 O2 Del Method 08/27/22 11:25 Oxygen Flow Rate 4 08/23/22 15:06 BMI result Body Mass Index 31.0 Resp: Other: Diminished at bases. Scant expiratory wheezes Cardio: Other: No S4; positive S1-S2; no S3 murmurs rubs or gallops GI: Other: Soft nontender nondistended normoactive bowel sounds Extrem: Other: No edema bilaterally Objective Data Active Medications Acetaminophen (Acetaminophen 325 Mg Tablet) 650 mg PO Q6H PRN PRN Reason: Pain, Mild (Pain Scale 1-3) Last Admin: 08/26/22 11:02 Dose: 650 mg Documented By: ANA M Apixaban (Apixaban 2.5 Mg Tablet) 2.5 mg PO BID [facility] Last Admin: 08/27/22 08:50 Dose: 2.5 mg Documented By: LORENA Benzonatate (Benzonatate 100 Mg Capsule) 200 mg PO TID PRN PRN Reason: cough Last Admin: 08/26/22 22:46 Dose: 200 mg Documented By: NARENDRA Diltiazem HCl (Diltiazem Hcl Cd 240 Mg Cap.Er.Deg) 240 mg PO DAILY [facility]; Protocol Last Admin: 08/27/22 08:49 Dose: 240 mg Documented By: LORENA Docusate Sodium (Docusate Sodium 100 Mg Capsule) 100 mg PO DAILY PRN PRN Reason: Constipation Docusate Sodium (Docusate Sodium 100 Mg Capsule) 100 mg PO BEDTIME [facility] Last Admin: 08/26/22 20:29 Dose: Not Given Documented By: NARENDRA Non-Admin Reason: Patient Refused Ferrous Sulfate (Ferrous Sulfate 324 Mg Tablet.) 324 mg PO DAILY [facility] Last Admin: 08/27/22 08:48 Dose: 324 mg Documented By: LORENA Fluticasone Propionate (Fluticasone Propionate Nasal 16 Gm [place]) 1 spray NOSTRIL-B BID [facility] Last Admin: 08/27/22 08:50 Dose: 1 spray Documented By: LORENA Furosemide (Furosemide 20 Mg Tablet) 20 mg PO DAILY [facility]; Protocol Last Admin: 08/27/22 08:49 Dose: 20 mg Documented By: LORENA Glucose (Glucose Gel 15 Gm Gel..Gram.) 15 gm PO Q15M PRN; Protocol PRN Reason: per Hypoglycemia Standing Ord. Dextrose (D10) 250 mls @ 750 mls/hr IV Q15M PRN; Protocol PRN Reason: per Hypoglycemia Standing Ord. Insulin Human Lispro (Insulin Lispro 100 Unit/Ml 3 Ml Vial) 0 unit SUBCUT Q IDACHS [facility]; Protocol Last Admin: 08/27/22 11:43 Dose: 2 unit Documented By: LORENA Ipratropium [place] (Ipratropium [place] 0.5 Mg/2.5 Ml Solution) 0.5 mg INHALE RQ4H WHILE AWAKE [facility] Last Admin: 08/27/22 11:49 Dose: 0.5 mg Documented By: HILDA Levalbuterol HCl (Levalbuterol Hcl 1.25 Mg/0.5 Ml Vial.Neb) 1.25 mg INHALE RQ4H WHILE AWAKE [facility] Last Admin: 08/27/22 11:49 Dose: 1.25 mg Documented By: HILDA Levofloxacin (Levofloxacin 250 Mg Tablet) 250 mg PO Q24H [facility] Last Admin: 08/27/22 08:49 Dose: 250 mg Documented By: LORENA Lisinopril (Lisinopril 5 Mg Tablet) 5 mg PO DAILY [facility]; Protocol Last Admin: 08/27/22 08:49 Dose: 5 mg Documented By: LORENA Montelukast Sodium (Montelukast Sodium 10 Mg Tablet) 10 mg PO BEDTIME [facility] Last Admin: 08/26/22 20:28 Dose: 10 mg Documented By: NARENDRA Patient Own ( Umeclidinium- Vilanterol [Anoro Ellipta] 62.5-25 Mcg /Actuation Bl 1 each INHALE RDAILY [facility] Last Admin: 08/26/22 07:39 Dose: 1 each Documented By: HILDA Omeprazole (Omeprazole 40 Mg Capsule.Dr) 40 mg PO DAILY@0630 [facility] Last Admin: 08/27/22 05:49 Dose: 40 mg Documented By: NARENDRA Ondansetron HCl (Ondansetron Hcl 4 Mg/2 Ml Vial) 4 mg IVPUSH Q8H PRN PRN Reason: Nausea and Vomiting Oxybutynin Chloride (Oxybutynin Chloride Er 5 Mg Tab.Er.24) 5 mg PO DAILY [facility] Last Admin: 08/27/22 08:48 Dose: 5 mg Documented By: LORENA Pharmacy Consult (Consult Rx Perform Med Rec) 1 each MISCELLANE ONCE PRN PRN Reason: Consult order Sodium Chloride (0.9 % Sodium Chloride Flush 3 Ml Syringe) 3 ml IVFLUSH QSHIFT [facility] Last Admin: 08/27/22 08:51 Dose: 3 ml Documented By: LORENA Tramadol HCl (Tramadol Hcl 50 Mg Tablet) 50 mg PO BID [facility] Last Admin: 08/27/22 08:50 Dose: 50 mg Documented By: LORENA Labs 08/27/22 06:28 08/27/22 06:28 Labs: Laboratory Results - last 24 hr 08/26/22 08/26/22 08/27/22 15:29 19:25 06:28 MCV 94.2 MCH 32.1 MCHC 34.1 RDW 16.7 H Plt Count 134 L MPV Not Reportable Immature Gran % (Auto) 4.2 H Neut % (Auto) 83.2 H Lymph % (Auto) 7.6 L [place] % (Auto) 4.5 Eos % (Auto) 0.2 Baso % (Auto) 0.3 Lymph # (Auto) 1.1 L [place] # (Auto) 0.6 Eos # (Auto) 0.0 Baso # (Auto) 0.0 Abs Immat Gran (auto) 0.58 H Absolute Neuts (auto) 11.6 H Absolute Nucleated RBC 0.070 H Nucleated RBC % (auto) 0.5 H Smear Tech's Comments VERIFIED Anion Gap Estim Creat Clear Calc Estimated GFR POC Glucose 180 H 163 H Fasting Glucose Calcium Total Bilirubin AST ALT Alkaline Phosphatase Total Protein Albumin 08/27/22 08/27/22 08/27/22 06:28 07:39 11:23 MCV MCH MCHC RDW Plt Count MPV Immature Gran % (Auto) Neut % (Auto) Lymph % (Auto) [place] % (Auto) Eos % (Auto) Baso % (Auto) Lymph # (Auto) [place] # (Auto) Eos # (Auto) Baso # (Auto) Abs Immat Gran (auto) Absolute Neuts (auto) Absolute Nucleated RBC Nucleated RBC % (auto) Smear Tech's Comments Anion Gap 16 Estim Creat Clear Calc 29.8 Estimated GFR 45 POC Glucose 140 H 192 H Fasting Glucose 148 H Calcium 8.4 Total Bilirubin 1.1 H AST 38 H ALT 50 H Alkaline Phosphatase 89 Total Protein 4.9 L Albumin 2.9 L Assessment and Plan (1) COPD (chronic obstructive pulmonary disease): Status: Acute Assessment and Plan: 81-year-old female with COPD, history of pseudomonal pneumonia, coronary artery disease, paroxysmal atrial fibrillation anticoagulated with Eliquis, congestive heart failure admitted for COPD exacerbation, aspiration pneumonia, and atrial fibrillation with RVR. 1.COPD exacerbation with aspiration pneumonia -Seen by Pulmonary. .. Will switch to Levaquin p.o. -DC steroids -levalbuterol/ipratropium nebs q.4h while awake (avoid albuterol per patient's daughter request) 2.Paroxysmal atrial fibrillation with RVR -resume Eliquis 2.5 mg b.i.d. for anticoagulation -continue p.o. diltiazem.... Monitor times 24 hrs -dig load 3.Congestive heart failure -no acute exacerbation. BNP baseline -continue p.o. Lasix Eliquis Full code PT consult Patient requires ongoing hospitalization to treat aspiration pneumonia with IV a ntibiotics and for did slow to treat paroxysmal atrial fib (2) Atrial fibrillation with RVR: Status: Acute Time Spent With Patient Time: Total time managing care of this patient today ____ minutes. Quality Stroke Does the patient have a stroke diagnosis?: No VTE Prior VTE?: No VTE Risk Level:: Medical - moderate - high VTE Device Contraindication: Treatment Not Indicated VTE Drug Contraindication: N/A - Med Ordered
[2022-08-27 16:07] LABS: Glucose, Whole Blood 146 mg/dL (60-115)
[2022-08-27 17:09] LABS: Appearance Urine Turbid; Color Urine Yellow; Glucose Urine UA Negative (Negative); Leukocyte Esterase Urine Moderate (2+) (Negative); Nitrite Urine Negative (Negative); PH 5.5 (5.0-9.0); Specific Gravity - Urine 1.015 (1.005-1.025); UMIC TRIGGER UA YES; Urine Blood Moderate (2+) (Negative); Urine Ketones Negative (Negative); Urine Protein Trace mg/dL (Neg-Trace)
[2022-08-27 17:32] LABS: Bacteria Urine 4+ (None Seen); Hyaline Casts Urine 0-2 /LPF (0-2); WBC Urine 0-5 /HPF (0-5)
[2022-08-27 19:28] LABS: Glucose, Whole Blood 195 mg/dL (60-115)
[2022-08-27] MEDS: Montelukast Sodium 10 MG TABLET PO (20:19)
--- NOTE | 2022-08-27 20:26 | PC.NURSE ---
1934 Family in room, expressing concerns of patient showing trouble of articulating words and is very weak and lethargic from baseline and is concerned her Mom may be having a TIA also she is showing significant changes in personality and general overall behavior family requested MD at bedside , DR Rodriguez consulted with family.
[2022-08-27] MEDS: ondansetron HCL 4 MG/2 ML VIAL IVPUSH (23:34)
[2022-08-27] MEDS: Acetaminophen 325 MG TABLET 650 MG PO (23:44)
[2022-08-28 02:55] LABS: Glucose, Whole Blood 141 mg/dL (60-115)
--- NOTE | 2022-08-28 03:07 | PC.NURSE ---
2315 Patient awoke from sleep stating she was feeling nauseous, and had a headache. Vital signs taken WNL zofran and tylenol given with good result patient went back to sleep. 0310 Patient awake verbalizing a feeling of popcorn, balls in her stomach , or something like snowballs , this RN asked patient if she was having gas in her stomach pt said no popcorn Pt alert and orientated x3, was aware of ' holiday as well. Some confusion and complaints of being tired POC taken 140. vital signs taken WNL and patient care done and patient is now resting comfortably.
[2022-08-28 03:16] VITALS: BP 132/72; PULSE 82; RESP 18; TEMP 37.1; O2SAT 92
[2022-08-28 07:25] VITALS: BP 131/69; PULSE 83; RESP 17; TEMP 36.2; O2SAT 92
[2022-08-28 07:46] LABS: Glucose, Whole Blood 132 mg/dL (60-115)
[2022-08-28] MEDS: levoFLOXacin 250 MG TABLET PO (07:53)
[2022-08-28] MEDS: dilTIAZem HCL CD 240 MG CAP.ER.DEG PO (07:53)
[2022-08-28] MEDS: lisinopriL 5 MG TABLET PO (07:53)
[2022-08-28] MEDS: Acetaminophen 325 MG TABLET 650 MG PO (07:53)
[2022-08-28] MEDS: traMADoL HCL 50 MG TABLET PO ×2 (07:54→21:01)
[2022-08-28] MEDS: oxyBUTYnin chloride ER 5 MG TAB.ER.24 PO (07:54)
[2022-08-28] MEDS: Apixaban 2.5 MG TABLET PO ×2 (07:54→21:01)
[2022-08-28] MEDS: Furosemide 20 MG TABLET PO (07:55)
[2022-08-28] MEDS: 0.9 % Sodium Chloride Flush 3 ML SYRINGE IVFLUSH ×3 (07:55→21:02)
[2022-08-28] MEDS: Ferrous Sulfate 324 MG TABLET.DR PO (07:55)
[2022-08-28] MEDS: Fluticasone Propionate Nasal 16 GM SPRAY 1 SPRAY NOSTRIL-B ×2 (07:57→21:01)
[2022-08-28 11:13] LABS: Basophils Percent Auto 0.1 % (0-2); Eosinophils Absolute Auto 0.1 X10*3/uL (0.0-0.4); Eosinophils Percent Auto 0.6 % (0-4); Hematocrit 32.9 % (37.0-47.0); Hemoglobin 11.2 g/dl (12.0-16.0); Imm Gran Abs Auto 0.29 X10*3/uL (0.00-0.03); Imm Gran Pct Auto 2.6 % (0.0-0.4); Lymphocytes Absolute Auto 0.9 X10*3/uL (1.2-4.9); Lymphocytes Percent Auto 7.9 % (20-40); MANUAL DIFF FLAG NO; Mean Corpuscular Hemoglobin 31.7 pg (27.0-33.0); Mean Corpuscular Volume 93.2 fL (80.0-98.0); Mean Platelet Volume 10.8 fL (9.4-12.3); Monocytes Absolute Auto 0.6 X10*3/uL (0.1-1.2); NRBC Pct Auto 0.2 /100WBC (0.0-0.2); Neutrophils Absolute Auto 9.4 x10*3/uL (2.0-8.3); Neutrophils Percent Auto 83.8 % (45-73); Platelet Count 120 X10*3/uL (160-400); Red Blood Count 3.53 X10*6/uL (4.20-5.50); White Blood Count 11.2 X10*3/uL (4.8-10.8)
[2022-08-28 11:26] VITALS: BP 137/61; PULSE 82; RESP 17; TEMP 36.4; O2SAT 91
[2022-08-28 11:33] LABS: Anion Gap 15 (12-20)
[2022-08-28 11:37] LABS: Alanine Aminotransferase 46 U/L (0-31); Alkaline Phosphatase 102 U/L (39-117); Aspartate Amino Transferase 26 U/L (5-31); Bilirubin Total 1.8 mg/dL (0.0-1.0); Blood Urea Nitrogen 25 mg/dL (9-16); Calcium 8.3 mg/dL (8.4-10.2); Carbon Dioxide 29 mmol/L (22-29); Chloride 97 mmol/L (96-108); Creatinine Clr Calc Pharmacy 29.6; Estimated Glomerular Filt Rate 44; Glucose Random 160 mg/dL (60-115); Potassium 3.6 mmol/L (3.3-5.1); Sodium 137 mmol/L (135-145)
[2022-08-28] MEDS: Butalb/Acetamin/Caff 50/325/40 TABLET 1 TAB PO ×2 (11:38→18:15)
[2022-08-28 11:39] LABS: Glucose, Whole Blood 158 mg/dL (60-115)
--- NOTE | 2022-08-28 13:19 | P.PNIM_ITS ---
Subjective Subjective Date of Service: 08/28/22 Interval History: More confused this a.m.. No focal abnormalities on labs Review of Systems Denies chest pain States shortness of breath is improved Denies nausea vomiting diarrhea Denies fever chills Physical Exam Vital Signs: Vital Signs: Last Vital Signs Temp 97.5 F 08/28/22 11:26 Pulse 82 08/28/22 11:26 Resp 17 08/28/22 11:26 BP 137/61 08/28/22 11:26 Pulse Ox 91 L 08/28/22 11:26 O2 Del Method 08/28/22 11:26 Oxygen Flow Rate 4 08/23/22 15:06 BMI result Body Mass Index 31.0 Resp: Other: Diminished at bases. Scant expiratory wheezes Cardio: Other: No S4; positive S1-S2; no S3 murmurs rubs or gallops GI: Other: Soft nontender nondistended normoactive bowel sounds Extrem: Other: No edema bilaterally Objective Data Active Medications Acetaminophen (Acetaminophen 325 Mg Tablet) 650 mg PO Q6H PRN PRN Reason: Pain, Mild (Pain Scale 1-3) Last Admin: 08/28/22 07:53 Dose: 650 mg Documented By: RADHIKA Acetaminophen/Butalbital/Caffeine (Butalb/Acetamin/Caff 50/325/40 Tablet) 1 tab PO Q4H PRN PRN Reason: Headache Last Admin: 08/28/22 11:38 Dose: 1 tab Documented By: RADHIKA Apixaban (Apixaban 2.5 Mg Tablet) 2.5 mg PO BID [facility] Last Admin: 08/28/22 07:54 Dose: 2.5 mg Documented By: RADHIKA Benzonatate (Benzonatate 100 Mg Capsule) 200 mg PO TID PRN PRN Reason: cough Last Admin: 08/26/22 22:46 Dose: 200 mg Documented By: NARENDRA Diltiazem HCl (Diltiazem Hcl Cd 240 Mg Cap.Er.Deg) 240 mg PO DAILY [facility]; Protocol Last Admin: 08/28/22 07:53 Dose: 240 mg Documented By: RADHIKA Docusate Sodium (Docusate Sodium 100 Mg Capsule) 100 mg PO DAILY PRN PRN Reason: Constipation Docusate Sodium (Docusate Sodium 100 Mg Capsule) 100 mg PO BEDTIME [facility] Last Admin: 08/27/22 20:22 Dose: Not Given Documented By: NARENDRA Non-Admin Reason: Patient Refused Ferrous Sulfate (Ferrous Sulfate 324 Mg Tablet.) 324 mg PO DAILY [facility] Last Admin: 08/28/22 07:55 Dose: 324 mg Documented By: RADHIKA Fluticasone Propionate (Fluticasone Propionate Nasal 16 Gm [place]) 1 spray NOSTRIL-B BID [facility] Last Admin: 08/28/22 07:57 Dose: 1 spray Documented By: RADHIKA Furosemide (Furosemide 20 Mg Tablet) 20 mg PO DAILY [facility]; Protocol Last Admin: 08/28/22 07:55 Dose: 20 mg Documented By: RADHIKA Glucose (Glucose Gel 15 Gm Gel..Gram.) 15 gm PO Q15M PRN; Protocol PRN Reason: per Hypoglycemia Standing Ord. Dextrose (D10) 250 mls @ 750 mls/hr IV Q15M PRN; Protocol PRN Reason: per Hypoglycemia Standing Ord. Insulin Human Lispro (Insulin Lispro 100 Unit/Ml 3 Ml Vial) 0 unit SUBCUT QIDACHS [facility]; Protocol Last Admin: 08/28/22 11:41 Dose: Not Given Documented By: RADHIKA Non-Admin Reason: Patient Refused Ipratropium [place] (Ipratropium [place] 0.5 Mg/2.5 Ml Solution) 0.5 mg INHALE RQ4H WHILE AWAKE [facility] Last Admin: 08/28/22 11:39 Dose: Not Given Documented By: HILDA Non-Admin Reason: Patient Refused Levalbuterol HCl (Levalbuterol Hcl 1.25 Mg/0.5 Ml Vial.Neb) 1.25 mg INHALE RQ4H WHILE AWAKE [facility] Last Admin: 08/28/22 11:40 Dose: Not Given Documented By: HILDA Non-Admin Reason: Patient Refused Levofloxacin (Levofloxacin 250 Mg Tablet) 250 mg PO Q24H [facility] Last Admin: 08/28/22 07:53 Dose: 250 mg Documented By: RADHIKA Lisinopril (Lisinopril 5 Mg Tablet) 5 mg PO DAILY [facility]; Protocol Last Admin: 08/28/22 07:53 Dose: 5 mg Documented By: RADHIKA Montelukast Sodium (Montelukast Sodium 10 Mg Tablet) 10 mg PO BEDTIME [facility] Last Admin: 08/27/22 20:19 Dose: 10 mg Documented By: NARENDRA Patient Own ( Umeclidinium- Vilanterol [Anoro Ellipta] 62.5-25 Mcg /Actuation Bl 1 each INHALE RDAILY [facility] Last Admin: 08/28/22 11:37 Dose: 1 each Documented By: RADHIKA Omeprazole (Omeprazole 40 Mg Capsule.Dr) 40 mg PO DAILY@0630 [facility] Last Admin: 08/28/22 06:36 Dose: Not Given Documented By: NARENDRA Non-Admin Reason: Patient Asleep Ondansetron HCl (Ondansetron Hcl 4 Mg/2 Ml Vial) 4 mg IVPUSH Q8H PRN PRN Reason: Nausea and Vomiting Last Admin: 08/27/22 23:34 Dose: 4 mg Documented By: NARENDRA Oxybutynin Chloride (Oxybutynin Chloride Er 5 Mg Tab.Er.24) 5 mg PO DAILY [facility] Last Admin: 08/28/22 07:54 Dose: 5 mg Documented By: RADHIKA Pharmacy Consult (Consult Rx Perform Med Rec) 1 each MISCELLANE ONCE PRN PRN Reason: Consult order Sodium Chloride (0.9 % Sodium Chloride Flush 3 Ml Syringe) 3 ml IVFLUSH QSHIFT [facility] Last Admin: 08/28/22 07:55 Dose: 3 ml Documented By: RADHIKA Tramadol HCl (Tramadol Hcl 50 Mg Tablet) 50 mg PO BID [facility] Last Admin: 08/28/22 07:54 Dose: 50 mg Documented By: RADHIKA Labs 08/28/22 10:58 08/28/22 10:58 Labs: Laboratory Results - last 24 hr 08/27/22 08/27/22 08/27/22 16:01 16:43 19:25 MCV MCH MCHC RDW Plt Count MPV Immature Gran % (Auto) Neut % (Auto) Lymph % (Auto) [place] % (Auto) Eos % (Auto) Baso % (Auto) Lymph # (Auto) [place] # (Auto) Eos # (Auto) Baso # (Auto) Abs Immat Gran (auto) Absolute Neuts (auto) Absolute Nucleated RBC Nucleated RBC % (auto) Anion Gap Estim Creat Clear Calc Estimated GFR POC Glucose 146 H 195 H Random Glucose Calcium Total Bilirubin AST ALT Alkaline Phosphatase Total Protein Albumin Urine Color Yellow Urine Appearance Turbid Urine pH 5.5 Ur Specific [place] 1.015 Urine Protein Trace Urine Glucose (UA) Negative Urine Ketones Negative Urine Blood Moderate (2+) H Urine Nitrite Negative Ur Leukocyte Esterase Moderate (2+) H Urine RBC 11-20 H Urine WBC 0-5 Ur Squamous Epith Cells 3-5 Urine Bacteria 4+ Hyaline Casts 0-2 Urine Yeast Present Influenza Type A (PCR) Influenza Type B (PCR) RSV RNA Qual (PCR) SARS-CoV-2 RNA (RT-PCR) 08/28/22 08/28/22 08/28/22 02:49 07:21 10:58 MCV 93.2 MCH 31.7 MCHC 34.0 RDW 17.0 H Plt Count 120 L MPV 10.8 Immature Gran % (Auto) 2.6 H Neut % (Auto) 83.8 H Lymph % (Auto) 7.9 L [place] % (Auto) 5.0 Eos % (Auto) 0.6 Baso % (Auto) 0.1 Lymph # (Auto) 0.9 L [place] # (Auto) 0.6 Eos # (Auto) 0.1 Baso # (Auto) 0.0 Abs Immat Gran (auto) 0.29 H Absolute Neuts (auto) 9.4 H Absolute Nucleated RBC 0.020 H Nucleated RBC % (auto) 0.2 Anion Gap Estim Creat Clear Calc Estimated GFR POC Glucose 141 H 132 H Random Glucose Calcium Total Bilirubin AST ALT Alkaline Phosphatase Total Protein Albumin Urine Color Urine Appearance Urine pH Ur Specific [place] Urine Protein Urine Glucose (UA) Urine Ketones Urine Blood Urine Nitrite Ur Leukocyte Esterase Urine RBC Urine WBC Ur Squamous Epith Cells Urine Bacteria Hyaline Casts Urine Yeast Influenza Type A (PCR) Influenza Type B (PCR) RSV RNA Qual (PCR) SARS-CoV-2 RNA (RT-PCR) 08/28/22 08/28/22 08/28/22 10:58 11:29 11:35 MCV MCH MCHC RDW Plt Count MPV Immature Gran % (Auto) Neut % (Auto) Lymph % (Auto) [place] % (Auto) Eos % (Auto) Baso % (Auto) Lymph # (Auto) [place] # (Auto) Eos # (Auto) Baso # (Auto) Abs Immat Gran (auto) Absolute Neuts (auto) Absolute Nucleated RBC Nucleated RBC % (auto) Anion Gap 15 Estim Creat Clear Calc 29.6 Estimated GFR 44 POC Glucose 158 H Random Glucose 160 H Calcium 8.3 L Total Bilirubin 1.8 H AST 26 ALT 46 H Alkaline Phosphatase 102 Total Protein 5.0 L Albumin 3.0 L Urine Color Urine Appearance Urine pH Ur Specific [place] Urine Protein Urine Glucose (UA) Urine Ketones Urine Blood Urine Nitrite Ur Leukocyte Esterase Urine RBC Urine WBC Ur Squamous Epith Cells Urine Bacteria Hyaline Casts Urine Yeast Influenza Type A (PCR) Cancelled Influenza Type B (PCR) Cancelled RSV RNA Qual (PCR) Cancelled SARS-CoV-2 RNA (RT-PCR) Cancelled Assessment and Plan (1) COPD (chronic obstructive pulmonary disease): Status: Acute Assessment and Plan: 81-year-old female with COPD, history of pseudomonal pneumonia, coronary artery disease, paroxysmal atrial fibrillation anticoagulated with Eliquis, congestive heart failure admitted for COPD exacerbation, aspiration pneumonia, and atrial fibrillation with RVR. 1.COPD exacerbation with aspiration pneumonia -add back methylprednisolone -continue p.o. Levaquin -levalbuterol/ipratropium nebs q.4h while awake (avoid albuterol per patient's daughter request) 2.Paroxysmal atrial fibrillation with RVR -resume Eliquis 2.5 mg b.i.d. for anticoagulation -continue p.o. diltiazem.... Monitor times 24 hrs -dig load 3.Congestive heart failure -no acute exacerbation. BNP baseline -continue p.o. Lasix Eliquis Full code PT consult Patient requires ongoing hospitalization to treat aspiration pneumonia with antibiotics and IV steroids (2) Atrial fibrillation with RVR: Status: Acute Time Spent With Patient Time: Total time managing care of this patient today ____ minutes. Quality Stroke Does the patient have a stroke diagnosis?: No VTE Prior VTE?: No VTE Risk Level:: Medical - moderate - high VTE Device Contraindication: Treatment Not Indicated VTE Drug Contraindication: N/A - Med Ordered
[2022-08-28 14:21] LABS: Influenza A PCR POSITIVE (Negative); Influenza B PCR NEGATIVE (Negative); Resp Syncy Virus RNA Qual PCR NEGATIVE (Negative); SARS COV2 PCR INHOUSE NEGATIVE (Negative)
[2022-08-28 15:37] VITALS: BP 112/55; PULSE 82; RESP 17; TEMP 36.4; O2SAT 92
[2022-08-28 16:10] LABS: Glucose, Whole Blood 180 mg/dL (60-115)
[2022-08-28 19:30] VITALS: BP 107/50; PULSE 82; RESP 17; TEMP 36.8; O2SAT 93
[2022-08-28 20:11] LABS: Glucose, Whole Blood 236 mg/dL (60-115)
[2022-08-28] MEDS: Montelukast Sodium 10 MG TABLET PO (21:00)
[2022-08-29] VITALS (8 sets, daily range): BP systolic 100–140; BP diastolic 48–71; PULSE 68–88; RESP 16–20; TEMP 36–36.9; O2SAT 91–96
[2022-08-29] MEDS: Butalb/Acetamin/Caff 50/325/40 TABLET 1 TAB PO (03:07)
[2022-08-29] MEDS: Omeprazole 40 MG CAPSULE.DR PO (05:49)
[2022-08-29 06:23] LABS: MANUAL DIFF FLAG NO
[2022-08-29 06:30] LABS: Basophils Percent Auto 0.2 % (0-2); Eosinophils Absolute Auto 0.1 X10*3/uL (0.0-0.4); Eosinophils Percent Auto 0.8 % (0-4); Hemoglobin 10.5 g/dl (12.0-16.0); Imm Gran Abs Auto 0.24 X10*3/uL (0.00-0.03); Imm Gran Pct Auto 2.4 % (0.0-0.4); Lymphocytes Absolute Auto 1.1 X10*3/uL (1.2-4.9); Lymphocytes Percent Auto 11.2 % (20-40); Mean Corpuscular HGB Conc 33.9 g/dl (31.0-35.0); Mean Corpuscular Hemoglobin 31.8 pg (27.0-33.0); Mean Corpuscular Volume 93.9 fL (80.0-98.0); Monocytes Absolute Auto 0.5 X10*3/uL (0.1-1.2); Neutrophils Absolute Auto 8.2 x10*3/uL (2.0-8.3); Neutrophils Percent Auto 80.4 % (45-73); Platelet Count 108 X10*3/uL (160-400); Red Cell Distribution Width 17.2 % (11.0-16.0); White Blood Count 10.2 X10*3/uL (4.8-10.8)
[2022-08-29 07:36] LABS: Glucose, Whole Blood 144 mg/dL (60-115)
[2022-08-29 07:54] LABS: Alanine Aminotransferase 38 U/L (0-31); Albumin Level 2.7 g/dL (3.5-5.0); Alkaline Phosphatase 90 U/L (39-117); Anion Gap 14 (12-20); Aspartate Amino Transferase 24 U/L (5-31); Bilirubin Total 1.4 mg/dL (0.0-1.0); Blood Urea Nitrogen 30 mg/dL (9-16); Calcium 8.1 mg/dL (8.4-10.2); Carbon Dioxide 31 mmol/L (22-29); Chloride 96 mmol/L (96-108); Creatinine Clr Calc Pharmacy 30.6; Estimated Glomerular Filt Rate 46; Glucose Fasting 133 mg/dL (60-99); Potassium 3.5 mmol/L (3.3-5.1); Sodium 137 mmol/L (135-145); Total Protein 4.7 g/dL (6.5-8.0)
[2022-08-29] MEDS: levoFLOXacin 250 MG TABLET PO (08:38)
[2022-08-29] MEDS: Fluticasone Propionate Nasal 16 GM SPRAY 1 SPRAY NOSTRIL-B ×2 (08:38→21:34)
[2022-08-29] MEDS: Furosemide 20 MG TABLET PO (08:39)
[2022-08-29] MEDS: oxyBUTYnin chloride ER 5 MG TAB.ER.24 PO (08:39)
[2022-08-29] MEDS: Ferrous Sulfate 324 MG TABLET.DR PO (08:39)
[2022-08-29] MEDS: lisinopriL 5 MG TABLET PO (08:39)
[2022-08-29] MEDS: dilTIAZem HCL CD 240 MG CAP.ER.DEG PO (08:39)
[2022-08-29] MEDS: 0.9 % Sodium Chloride Flush 3 ML SYRINGE IVFLUSH ×2 (08:40→21:32)
[2022-08-29] MEDS: Apixaban 2.5 MG TABLET PO ×2 (08:40→21:32)
[2022-08-29 09:43] LABS: Ammonia 30 umol/L (13-55)
[2022-08-29] MEDS: traMADoL HCL 50 MG TABLET 25 MG PO ×2 (10:12→21:31)
--- NOTE | 2022-08-29 10:35 | MHC.CM.PN ---
Per ROUNDS discussion, Patient is not yet medically cleared for dc; PT is recommending home with services and CM will continue to follow.
[2022-08-29 11:07] LABS: Glucose, Whole Blood 218 mg/dL (60-115)
[2022-08-29] MEDS: Ipratropium Bromide 0.5 MG/2.5 ML SOLUTION INHALE ×2 (12:19→16:18)
--- NOTE | 2022-08-29 12:29 | P.PNIM_ITS ---
Subjective Subjective Date of Service: 08/29/22 Interval History: Requesting for tramadol that she takes at home twice daily, complaining of generalized soreness, left-sided headache and left upper abdominal discomfort with coughing, denies fever chills, no chest pain, no palpitation, no lightheadedness or dizziness. Review of Systems Review of Systems: Yes all other systems are reviewed and are negative Physical Exam Vital Signs: Vital Signs: Last Vital Signs Temp 98.4 F 08/29/22 11:15 Pulse 79 08/29/22 12:21 Resp 16 08/29/22 11:15 BP 114/61 08/29/22 11:15 Pulse Ox 94 08/29/22 11:15 O2 Del Method 08/29/22 11:15 Oxygen Flow Rate 4 08/23/22 15:06 BMI result Body Mass Index 31.0 Const: Other: Gen: in no acute distress HEENT: sclera anicteric, moist mucus membranes Neck: supple Lungs: inspiratory rhonchi at bases Heart: irregular, no murmurs Abd: soft, non-tender, non-distended Ext: no edema Skin: Lower extremity discoloration/ecchymosis Neuro: alert and oriented x3, no focal findings Psych: appropriate affect ? Objective Data Active Medications Acetaminophen (Acetaminophen 325 Mg Tablet) 650 mg PO Q6H PRN PRN Reason: Pain, Mild (Pain Scale 1-3) Last Admin: 08/28/22 07:53 Dose: 650 mg Documented By: RADHIKA Acetaminophen/Butalbital/Caffeine (Butalb/Acetamin/Caff 50/325/40 Tablet) 1 tab PO Q4H PRN PRN Reason: Headache Last Admin: 08/29/22 03:07 Dose: 1 tab Documented By: OSMEL Apixaban (Apixaban 2.5 Mg Tablet) 2.5 mg PO BID [facility] Last Admin: 08/29/22 08:40 Dose: 2.5 mg Documented By: FOGARTShalini Benzonatate (Benzonatate 100 Mg Capsule) 200 mg PO TID PRN PRN Reason: cough Last Admin: 08/26/22 22:46 Dose: 200 mg Documented By: NARENDRA Diltiazem HCl (Diltiazem Hcl Cd 240 Mg Cap.Er.Deg) 240 mg PO DAILY [facility]; Protocol Last Admin: 08/29/22 08:39 Dose: 240 mg Documented By: DELLA Docusate Sodium (Docusate Sodium 100 Mg Capsule) 100 mg PO DAILY PRN PRN Reason: Constipation Docusate Sodium (Docusate Sodium 100 Mg Capsule) 100 mg PO BEDTIME [facility] Last Admin: 08/28/22 21:10 Dose: Not Given Documented By: OSMEL Non-Admin Reason: Patient Refused Ferrous Sulfate (Ferrous Sulfate 324 Mg Tablet.) 324 mg PO DAILY [facility] Last Admin: 08/29/22 08:39 Dose: 324 mg Documented By: DELLA Fluticasone Propionate (Fluticasone Propionate Nasal 16 Gm [place]) 1 spray NOSTRIL-B BID [facility] Last Admin: 08/29/22 08:38 Dose: 1 spray Documented By: DELLA Furosemide (Furosemide 20 Mg Tablet) 20 mg PO DAILY [facility]; Protocol Last Admin: 08/29/22 08:39 Dose: 20 mg Documented By: DELLA Glucose (Glucose Gel 15 Gm Gel..Gram.) 15 gm PO Q15M PRN; Protocol PRN Reason: per Hypoglycemia Standing Ord. Dextrose (D10) 250 mls @ 750 mls/hr IV Q15M PRN; Protocol PRN Reason: per Hypoglycemia Standing Ord. Insulin Human Lispro (Insulin Lispro 100 Unit/Ml 3 Ml Vial) 0 unit SUBCUT QIDACHS [facility]; Protocol Last Admin: 08/29/22 11:28 Dose: Not Given Documented By: DELLA Non-Admin Reason: Patient Refused Ipratropium [place] (Ipratropium [place] 0.5 Mg/2.5 Ml Solution) 0.5 mg INHALE RQ4H WHILE AWAKE [facility] Last Admin: 08/29/22 12:19 Dose: 0.5 mg Documented By: STEPHANY Levalbuterol HCl (Levalbuterol Hcl 1.25 Mg/0.5 Ml Vial.Neb) 1.25 mg INHALE RQ4H WHILE AWAKE [facility] Last Admin: 08/29/22 12:19 Dose: 1.25 mg Documented By: STEPHANY Levofloxacin (Levofloxacin 250 Mg Tablet) 250 mg PO Q24H [facility] Last Admin: 08/29/22 08:38 Dose: 250 mg Documented By: DELLA Lisinopril (Lisinopril 5 Mg Tablet) 5 mg PO DAILY [facility]; Protocol Last Admin: 08/29/22 08:39 Dose: 5 mg Documented By: DELLA Montelukast Sodium (Montelukast Sodium 10 Mg Tablet) 10 mg PO BEDTIME [facility] Last Admin: 08/28/22 21:00 Dose: 10 mg Documented By: OSMEL Patient Own ( Umeclidinium- Vilanterol [Anoro Ellipta] 62.5-25 Mcg /Actuation Bl 1 each INHALE RDAILY [facility] Last Admin: 08/29/22 11:30 Dose: 1 each Documented By: DELLA Omeprazole (Omeprazole 40 Mg Capsule.Dr) 40 mg PO DAILY@0630 [facility] Last Admin: 08/29/22 05:49 Dose: 40 mg Documented By: OSMEL Ondansetron HCl (Ondansetron Hcl 4 Mg/2 Ml Vial) 4 mg IVPUSH Q8H PRN PRN Reason: Nausea and Vomiting Last Admin: 08/27/22 23:34 Dose: 4 mg Documented By: NARENDRA Oxybutynin Chloride (Oxybutynin Chloride Er 5 Mg Tab.Er.24) 5 mg PO DAILY [facility] Last Admin: 08/29/22 08:39 Dose: 5 mg Documented By: DELLA Pharmacy Consult (Consult Rx Perform Med Rec) 1 each MISCELLANE ONCE PRN PRN Reason: Consult order Sodium Chloride (0.9 % Sodium Chloride Flush 3 Ml Syringe) 3 ml IVFLUSH QSHIFT [facility] Last Admin: 08/29/22 08:40 Dose: 3 ml Documented By: DELLA Tramadol HCl (Tramadol Hcl 50 Mg Tablet) 25 mg PO Q8H PRN PRN Reason: Pain, Moderate (Pain Scale 4-6 Last Admin: 08/29/22 10:12 Dose: 25 mg Documented By: DELLA Labs 08/29/22 06:02 08/29/22 06:02 Labs: Laboratory Results - last 24 hr 08/28/22 08/28/22 08/28/22 11:35 13:28 15:39 MCV MCH MCHC RDW Plt Count MPV Immature Gran % (Auto) Neut % (Auto) Lymph % (Auto) [place] % (Auto) Eos % (Auto) Baso % (Auto) Lymph # (Auto) [place] # (Auto) Eos # (Auto) Baso # (Auto) Abs Immat Gran (auto) Absolute Neuts (auto) Absolute Nucleated RBC Nucleated RBC % (auto) Anion Gap Estim Creat Clear Calc Estimated GFR POC Glucose 180 H Fasting Glucose Calcium Total Bilirubin AST ALT Alkaline Phosphatase [place]mon[place] Total Protein Albumin Influenza Type A (PCR) Cancelled POSITIVE A Influenza Type B (PCR) Cancelled NEGATIVE RSV RNA Qual (PCR) Cancelled NEGATIVE SARS-CoV-2 RNA (RT-PCR) Cancelled NEGATIVE 08/28/22 08/29/22 08/29/22 19:32 06:02 06:02 MCV 93.9 MCH 31.8 MCHC 33.9 RDW 17.2 H Plt Count 108 L MPV 11.0 Immature Gran % (Auto) 2.4 H Neut % (Auto) 80.4 H Lymph % (Auto) 11.2 L [place] % (Auto) 5.0 Eos % (Auto) 0.8 Baso % (Auto) 0.2 Lymph # (Auto) 1.1 L [place] # (Auto) 0.5 Eos # (Auto) 0.1 Baso # (Auto) 0.0 Abs Immat Gran (auto) 0.24 H Absolute Neuts (auto) 8.2 Absolute Nucleated RBC 0.000 Nucleated RBC % (auto) 0.0 Anion Gap 14 Estim Creat Clear Calc 30.6 Estimated GFR 46 POC Glucose 236 H Fasting Glucose 133 H Calcium 8.1 L Total Bilirubin 1.4 H AST 24 ALT 38 H Alkaline Phosphatase 90 Ammonia Total Protein 4.7 L Albumin 2.7 L Influenza Type A (PCR) Influenza Type B (PCR) RSV RNA Qual (PCR) SARS-CoV-2 RNA (RT-PCR) 08/29/22 08/29/22 08/29/22 07:23 08:52 11:03 MCV MCH MCHC RDW Plt Count MPV Immature Gran % (Auto) Neut % (Auto) Lymph % (Auto) [place] % (Auto) Eos % (Auto) Baso % (Auto) Lymph # (Auto) [place] # (Auto) Eos # (Auto) Baso # (Auto) Abs Immat Gran (auto) Absolute Neuts (auto) Absolute Nucleated RBC Nucleated RBC % (auto) Anion Gap Estim Creat Clear Calc Estimated GFR POC Glucose 144 H 218 H Fasting Glucose Calcium Total Bilirubin AST ALT Alkaline Phosphatase [place] 30 Total Protein Albumin Influenza Type A (PCR) Influenza Type B (PCR) RSV RNA Qual (PCR) SARS-CoV-2 RNA (RT-PCR) Microbiology Microbiology Results: Microbiology 08/23/22 17:16 Blood Culture - Final Blood - Venous No growth after 5 days. 08/23/22 16:58 Blood Culture - Final Blood - Venous No growth after 5 days. Assessment and Plan (1) COPD (chronic obstructive pulmonary disease): Status: Acute Assessment and Plan: 81-year-old female with COPD, history of pseudomonal pneumonia, coronary artery disease, paroxysmal atrial fibrillation anticoagulated with Eliquis, congestive heart failure admitted for COPD exacerbation, aspiration pneumonia, and atrial fibrillation with RVR. 1.COPD exacerbation with aspiration pneumonia -is status post IV Zosyn x3 days now on p.o. Levaquin 250mg day 4 -levalbuterol/ipratropium nebs q.4h while awake -will add schedule cough medication recommend out of bed to chair and ambulation 2.Paroxysmal atrial fibrillation with RVR Tele monitor showed stable ventricular rate -on Eliquis 2.5 mg b.i.d. for anticoagulation,p.o. diltiazem for rate control -s/p dig load, monitor on telemetry times 24 hours if noted to have rapid ventricular rate will place on digoxin 0.125 mg daily 3.Congestive heart failure -no acute exacerbation. BNP baseline -continue p.o. Lasix 4. Nodular density at the pancreatic tail radiology recommend non emergent MRI evaluation to rule out pancreatic mass 5. Nondisplaced acute 11th and 12th right rib fractures, multiple vertebral body compression deformities age indeterminate continue Ultram twice daily Eliquis Full code PT recommend home physical therapy, patient lives at home with family. Patient requires ongoing hospitalization to treat aspiration pneumonia with antibiotics and monitoring of AFib (2) Atrial fibrillation with RVR: Status: Acute Time Spent With Patient Time: Total time managing care of this patient today ____ minutes. Quality Stroke Does the patient have a stroke diagnosis?: No VTE Prior VTE?: No VTE Risk Level:: Medical - moderate - high VTE Device Contraindication: Treatment Not Indicated VTE Drug Contraindication: N/A - Med Ordered
[2022-08-29] MEDS: guaiFENesin DM 100/10/5 ML 5 ML SYRUP PO ×2 (14:46→21:32)
[2022-08-29 16:45] LABS: Glucose, Whole Blood 168 mg/dL (60-115)
[2022-08-29 20:00] LABS: Glucose, Whole Blood 251 mg/dL (60-115)
[2022-08-29] MEDS: Montelukast Sodium 10 MG TABLET PO (21:32)
[2022-08-30] VITALS (11 sets, daily range): BP systolic 111–132; BP diastolic 55–71; PULSE 67–85; RESP 15–22; TEMP 36.2–37.4; O2SAT 90–99
[2022-08-30] MEDS: Acetaminophen 325 MG TABLET 650 MG PO (03:49)
[2022-08-30] MEDS: Omeprazole 40 MG CAPSULE.DR PO (05:58)
[2022-08-30 07:41] LABS: Glucose, Whole Blood 133 mg/dL (60-115)
[2022-08-30] MEDS: Ipratropium Bromide 0.5 MG/2.5 ML SOLUTION INHALE ×3 (07:41→15:50)
[2022-08-30] MEDS: guaiFENesin DM 100/10/5 ML 5 ML SYRUP PO ×2 (08:59→15:46)
[2022-08-30] MEDS: Ferrous Sulfate 324 MG TABLET.DR PO (09:00)
[2022-08-30] MEDS: Furosemide 20 MG TABLET PO (09:00)
[2022-08-30] MEDS: oxyBUTYnin chloride ER 5 MG TAB.ER.24 PO (09:00)
[2022-08-30] MEDS: 0.9 % Sodium Chloride Flush 3 ML SYRINGE IVFLUSH ×2 (09:00→15:50)
[2022-08-30] MEDS: lisinopriL 5 MG TABLET PO (09:00)
[2022-08-30] MEDS: levoFLOXacin 250 MG TABLET PO (09:00)
[2022-08-30] MEDS: dilTIAZem HCL CD 240 MG CAP.ER.DEG PO (09:00)
[2022-08-30] MEDS: traMADoL HCL 50 MG TABLET 25 MG PO ×2 (09:00→20:33)
[2022-08-30] MEDS: Apixaban 2.5 MG TABLET PO ×2 (09:01→20:34)
[2022-08-30] MEDS: Fluticasone Propionate Nasal 16 GM SPRAY 1 SPRAY NOSTRIL-B ×2 (09:05→20:49)
--- NOTE | 2022-08-30 10:35 | MHC.CM.PN ---
Per ROUNDS discussion, Patient is now Flu (+) and not feeling ready to go home. PT is recommending home with services and per MD, Patient does not want to go to SNF/STR. CM will follow.
[2022-08-30 11:08] LABS: Glucose, Whole Blood 224 mg/dL (60-115)
--- NOTE | 2022-08-30 14:56 | HO.PM.IMPN ---
Subjective Subjective Date of Service: 08/30/22 Interval History: Complaining of generalized weakness this morning, otherwise denies fever chills, no headache, no dizziness, no nausea no vomiting tolerating diet no acute issues overnight. No acute events overnight. Review of Systems Review of Systems: Yes all other systems are reviewed and are negative Physical Exam Vital Signs: Vital Signs: Last Vital Signs Temp 97.8 F 08/30/22 11:24 Pulse 85 08/30/22 13:36 Resp 20 08/30/22 11:28 BP 122/61 08/30/22 11:24 Pulse Ox 99 08/30/22 11:24 O2 Del Method 08/30/22 11:24 Oxygen Flow Rate 4 08/23/22 15:06 BMI result Body Mass Index 31.0 Const: Other: Gen: in no acute distress HEENT: sclera anicteric, moist mucus membranes Neck: supple Lungs: Clear to auscultation no wheeze or crackles Heart: irregular, no murmurs Abd: soft, non-tender, non-distended Ext: no edema Skin:? Lower extremity discoloration/ecchymosis Neuro: alert and oriented x3, no focal findings Psych: appropriate affect Objective Data Active Medications Acetaminophen (Acetaminophen 325 Mg Tablet) 650 mg PO Q6H PRN PRN Reason: Pain, Mild (Pain Scale 1-3) Last Admin: 08/30/22 03:49 Dose: 650 mg Documented By: OSMEL Acetaminophen/Butalbital/Caffeine (Butalb/Acetamin/Caff 50/325/40 Tablet) 1 tab PO Q4H PRN PRN Reason: Headache Last Admin: 08/29/22 03:07 Dose: 1 tab Documented By: OSMEL Apixaban (Apixaban 2.5 Mg Tablet) 2.5 mg PO BID [facility] Last Admin: 08/30/22 09:01 Dose: 2.5 mg Documented By: FOGARTShalini Benzonatate (Benzonatate 100 Mg Capsule) 200 mg PO TID PRN PRN Reason: cough Last Admin: 08/26/22 22:46 Dose: 200 mg Documented By: NARENDRA Diltiazem HCl (Diltiazem Hcl Cd 240 Mg Cap.Er.Deg) 240 mg PO DAILY [facility]; Protocol Last Admin: 08/30/22 09:00 Dose: 240 mg Documented By: DELLA Docusate Sodium (Docusate Sodium 100 Mg Capsule) 100 mg PO DAILY PRN PRN Reason: Constipation Docusate Sodium (Docusate Sodium 100 Mg Capsule) 100 mg PO BEDTIME [facility] Last Admin: 08/29/22 21:35 Dose: Not Given Documented By: OSMEL Non-Admin Reason: Patient Refused Ferrous Sulfate (Ferrous Sulfate 324 Mg Tablet.) 324 mg PO DAILY [facility] Last Admin: 08/30/22 09:00 Dose: 324 mg Documented By: DELLA Fluticasone Propionate (Fluticasone Propionate Nasal 16 Gm [place]) 1 spray NOSTRIL-B BID [facility] Last Admin: 08/30/22 09:05 Dose: 1 spray Documented By: DELLA Furosemide (Furosemide 20 Mg Tablet) 20 mg PO DAILY [facility]; Protocol Last Admin: 08/30/22 09:00 Dose: 20 mg Documented By: DELLA Glucose (Glucose Gel 15 Gm Gel..Gram.) 15 gm PO Q15M PRN; Protocol PRN Reason: per Hypoglycemia Standing Ord. Guaifenesin/Dextromethorphan (Guaifenesin Dm 100/10/5 Ml 5 Ml Syrup) 5 ml PO TID [facility] Last Admin: 08/30/22 08:59 Dose: 5 ml Documented By: DELLA Dextrose (D10) 250 mls @ 750 mls/hr IV Q15M PRN; Protocol PRN Reason: per Hypoglycemia Standing Ord. Insulin Human Lispro (Insulin Lispro 100 Unit/Ml 3 Ml Vial) 0 unit SUBCUT QIDACHS [facility]; Protocol Last Admin: 08/30/22 11:21 Dose: Not Given Documented By: DELLA Non-Admin Reason: Patient Refused Ipratropium [place] (Ipratropium [place] 0.5 Mg/2.5 Ml Solution) 0.5 mg INHALE RQ4H WHILE AWAKE [facility] Last Admin: 08/30/22 11:25 Dose: 0.5 mg Documented By: KVNG Levalbuterol HCl (Levalbuterol Hcl 1.25 Mg/0.5 Ml Vial.Neb) 1.25 mg INHALE RQ4H WHILE AWAKE [facility] Last Admin: 08/30/22 11:25 Dose: 1.25 mg Documented By: KVNG Levofloxacin (Levofloxacin 250 Mg Tablet) 250 mg PO Q24H [facility] Last Admin: 08/30/22 09:00 Dose: 250 mg Documented By: DELLA Lisinopril (Lisinopril 5 Mg Tablet) 5 mg PO DAILY [facility]; Protocol Last Admin: 08/30/22 09:00 Dose: 5 mg Documented By: DELLA Montelukast Sodium (Montelukast Sodium 10 Mg Tablet) 10 mg PO BEDTIME [facility] Last Admin: 08/29/22 21:32 Dose: 10 mg Documented By: OSMEL Patient Own ( Umeclidinium- Vilanterol [Anoro Ellipta] 62.5-25 Mcg /Actuation Bl 1 each INHALE RDAILY [facility] Last Admin: 08/30/22 11:19 Dose: 1 each Documented By: DELLA Comments: pt request to take closer to noon Omeprazole (Omeprazole 40 Mg Capsule.) 40 mg PO DAILY@0630 [facility] Last Admin: 08/30/22 05:58 Dose: 40 mg Documented By: OSMEL Ondansetron HCl (Ondansetron Hcl 4 Mg/2 Ml Vial) 4 mg IVPUSH Q8H PRN PRN Reason: Nausea and Vomiting Last Admin: 08/27/22 23:34 Dose: 4 mg Documented By: NARENDRA Oxybutynin Chloride (Oxybutynin Chloride Er 5 Mg Tab.Er.24) 5 mg PO DAILY [facility] Last Admin: 08/30/22 09:00 Dose: 5 mg Documented By: DELLA Pharmacy Consult (Consult Rx Perform Med Rec) 1 each MISCELLANE ONCE PRN PRN Reason: Consult order Sodium Chloride (0.9 % Sodium Chloride Flush 3 Ml Syringe) 3 ml IVFLUSH QSHIFT [facility] Last Admin: 08/30/22 09:00 Dose: 3 ml Documented By: DELLA Tramadol HCl (Tramadol Hcl 50 Mg Tablet) 25 mg PO BID [facility] Last Admin: 08/30/22 09:00 Dose: 25 mg Documented By: DELLA Labs 08/29/22 06:02 08/29/22 06:02 Labs: Laboratory Results - last 24 hr 08/29/22 08/29/22 08/30/22 16:33 19:55 07:27 POC Glucose 168 H 251 H 133 H 08/30/22 11:05 POC Glucose 224 H Assessment and Plan (1) COPD (chronic obstructive pulmonary disease): Status: Acute Assessment and Plan: 81-year-old female with COPD, history of pseudomonal pneumonia, coronary artery disease, paroxysmal atrial fibrillation anticoagulated with Eliquis, congestive heart failure admitted for COPD exacerbation, aspiration pneumonia, and atrial fibrillation with RVR. 1.COPD exacerbation with aspiration pneumonia -finished course of antibiotics initially IV Zosyn than by mouth Levaquin for 4 days -will change levalbuterol/ipratropium nebs to qid -continue schedule cough medication recommend out of bed to chair and ambulation 2.Paroxysmal atrial fibrillation with RVR Tele monitor showed stable ventricular rate -on Eliquis 2.5 mg b.i.d. for anticoagulation,p.o. diltiazem for rate control -s/p dig load, monitor on telemetry times 24 hours if noted to have rapid ventricular rate will place on digoxin 0.125 mg daily 3.Congestive heart failure -no acute exacerbation. BNP baseline -continue p.o. Lasix 4. Nodular density at the pancreatic tail radiology recommend non emergent MRI evaluation to rule out pancreatic mass 5. Nondisplaced acute 11th and 12th right rib fractures, multiple vertebral body compression deformities age indeterminate continue Ultram twice daily 6. Influenza a infection/generalized weakness continue supportive care, being followed with physical therapy noted to have increased fatigue and unsteadiness today and desaturation with activity on room air continue close clinical follow up. Eliquis Full code PT recommend home physical therapy, patient lives at home with family. Patient requires ongoing hospitalization for generalized weakness likely due to influenza a infection/aspiration pneumonia . (2) Atrial fibrillation with RVR: Status: Acute Time Spent With Patient Time: Total time managing care of this patient today ____ minutes. Quality Stroke Does the patient have a stroke diagnosis?: No VTE Prior VTE?: No VTE Risk Level:: Medical - moderate - high VTE Device Contraindication: Treatment Not Indicated VTE Drug Contraindication: N/A - Med Ordered
[2022-08-30 16:13] LABS: Glucose, Whole Blood 161 mg/dL (60-115)
[2022-08-30 20:23] LABS: Glucose, Whole Blood 211 mg/dL (60-115)
[2022-08-30] MEDS: Montelukast Sodium 10 MG TABLET PO (20:34)
[2022-08-30] MEDS: Docusate Sodium 100 MG CAPSULE PO (20:34)
[2022-08-31] VITALS (8 sets, daily range): BP systolic 120–145; BP diastolic 57–90; PULSE 67–82; RESP 14–20; TEMP 36.2–36.9; O2SAT 92–96
[2022-08-31] MEDS: 0.9 % Sodium Chloride Flush 3 ML SYRINGE IVFLUSH ×3 (00:42→15:55)
[2022-08-31] MEDS: Omeprazole 40 MG CAPSULE.DR PO (05:13)
[2022-08-31] MEDS: Ipratropium Bromide 0.5 MG/2.5 ML SOLUTION INHALE (07:47)
[2022-08-31 07:52] LABS: Glucose, Whole Blood 163 mg/dL (60-115)
[2022-08-31] MEDS: Furosemide 20 MG TABLET PO (07:55)
[2022-08-31] MEDS: Apixaban 2.5 MG TABLET PO ×2 (07:55→21:56)
[2022-08-31] MEDS: oxyBUTYnin chloride ER 5 MG TAB.ER.24 PO (07:55)
[2022-08-31] MEDS: Ferrous Sulfate 324 MG TABLET.DR PO (07:55)
[2022-08-31] MEDS: levoFLOXacin 250 MG TABLET PO (07:56)
[2022-08-31] MEDS: lisinopriL 5 MG TABLET PO (07:56)
[2022-08-31] MEDS: guaiFENesin DM 100/10/5 ML 5 ML SYRUP PO ×3 (07:56→21:57)
[2022-08-31] MEDS: traMADoL HCL 50 MG TABLET 25 MG PO ×2 (07:56→21:55)
[2022-08-31] MEDS: dilTIAZem HCL CD 240 MG CAP.ER.DEG PO (07:56)
[2022-08-31] MEDS: Fluticasone Propionate Nasal 16 GM SPRAY 1 SPRAY NOSTRIL-B (07:57)
--- NOTE | 2022-08-31 11:00 | MHC.CM.PN ---
Per ROUNDS discussion, Patient is not yet medically clear for dc (Generalized weakness/recent Flu diagnosis); PT is recommending home with services/may benefit from STR; Patient wants to go home. CM will follow.
[2022-08-31 11:27] LABS: Glucose, Whole Blood 214 mg/dL (60-115)
[2022-08-31] MEDS: Insulin Lispro 100 UNIT/ML 3 ML VIAL SUBCUT ×2 (11:34→21:56)
[2022-08-31] MEDS: Oseltamivir Phosphate 30 MG CAPSULE PO ×2 (11:34→21:56)
[2022-08-31] MEDS: ondansetron HCL 4 MG/2 ML VIAL IVPUSH (13:36)
[2022-08-31 15:59] LABS: Glucose, Whole Blood 149 mg/dL (60-115)
--- NOTE | 2022-08-31 16:44 | P.PNIM_ITS ---
Subjective Subjective Date of Service: 08/31/22 Interval History: Complaining of generalized weakness, decreased by mouth intake no shortness of breath, no cough, no nausea no vomiting no other acute events overnight vitals remained stable. Review of Systems Review of Systems: Yes all other systems are reviewed and are negative Physical Exam Vital Signs: Vital Signs: Last Vital Signs Temp 97.7 F 08/31/22 15:18 Pulse 78 08/31/22 15:18 Resp 14 08/31/22 15:18 BP 120/60 08/31/22 15:18 Pulse Ox 95 08/31/22 15:18 O2 Del Method 08/31/22 15:18 Oxygen Flow Rate 4 08/23/22 15:06 BMI result Body Mass Index 31.0 Const: Other: Gen: Resting comfortably, looks weak, in no acute distress Neck: supple Lungs:? Clear to auscultation no wheeze or crackles Heart: irregular, no murmurs Abd: soft, non-tender, non-distended Ext: no edema Skin:? Lower extremity discoloration/ecchymosis both extremities and abdominal wall Neuro: alert and oriented x3, no focal findings Psych: appropriate affect Objective Data Active Medications Acetaminophen (Acetaminophen 325 Mg Tablet) 650 mg PO Q6H PRN PRN Reason: Pain, Mild (Pain Scale 1-3) Last Admin: 08/30/22 03:49 Dose: 650 mg Documented By: OSMEL Acetaminophen/Butalbital/Caffeine (Butalb/Acetamin/Caff 50/325/40 Tablet) 1 tab PO Q4H PRN PRN Reason: Headache Last Admin: 08/29/22 03:07 Dose: 1 tab Documented By: OSMEL Apixaban (Apixaban 2.5 Mg Tablet) 2.5 mg PO BID [facility] Last Admin: 08/31/22 07:55 Dose: 2.5 mg Documented By: RIOSCHECTOR Benzonatate (Benzonatate 100 Mg Capsule) 200 mg PO TID PRN PRN Reason: cough Last Admin: 08/26/22 22:46 Dose: 200 mg Documented By: NARENDRA Diltiazem HCl (Diltiazem Hcl Cd 240 Mg Cap.Er.Deg) 240 mg PO DAILY [facility]; Protocol Last Admin: 08/31/22 07:56 Dose: 240 mg Documented By: SOLEDAD Docusate Sodium (Docusate Sodium 100 Mg Capsule) 100 mg PO DAILY PRN PRN Reason: Constipation Docusate Sodium (Docusate Sodium 100 Mg Capsule) 100 mg PO BEDTIME [facility] Last Admin: 08/30/22 20:34 Dose: 100 mg Documented By: NOLVIA Ferrous Sulfate (Ferrous Sulfate 324 Mg Tablet.Dr) 324 mg PO DAILY [facility] Last Admin: 08/31/22 07:55 Dose: 324 mg Documented By: SOLEDAD Fluticasone Propionate (Fluticasone Propionate Nasal 16 Gm [place]) 1 spray N OSTRIL-B BID [facility] Last Admin: 08/31/22 07:57 Dose: 1 spray Documented By: SOLEDAD Furosemide (Furosemide 20 Mg Tablet) 20 mg PO DAILY [facility]; Protocol Last Admin: 08/31/22 07:55 Dose: 20 mg Documented By: SOLEDAD Glucose (Glucose Gel 15 Gm Gel..Gram.) 15 gm PO Q15M PRN; Protocol PRN Reason: per Hypoglycemia Standing Ord. Guaifenesin/Dextromethorphan (Guaifenesin Dm 100/10/5 Ml 5 Ml Syrup) 5 ml PO TID [facility] Last Admin: 08/31/22 15:55 Dose: 5 ml Documented By: BIJU Dextrose (D10) 250 mls @ 750 mls/hr IV Q15M PRN; Protocol PRN Reason: per Hypoglycemia Standing Ord. Insulin Human Lispro (Insulin Lispro 100 Unit/Ml 3 Ml Vial) 0 unit SUBCUT QIDACHS [facility]; Protocol Last Admin: 08/31/22 15:59 Dose: Not Given Documented By: BIJU Non-Admin Reason: No Insulin Coverage Ipratropium [place] (Ipratropium [place] 0.5 Mg/2.5 Ml Solution) 0.5 mg INHALE RQID [facility] Last Admin: 08/31/22 15:23 Dose: Not Given Documented By: JOSE Non-Admin Reason: Patient Refused Levalbuterol HCl (Levalbuterol Hcl 1.25 Mg/0.5 Ml Vial.Neb) 1.25 mg INHALE RQID [facility] Last Admin: 08/31/22 15:23 Dose: Not Given Documented By: JOSE Non-Admin Reason: Patient Refused Lisinopril (Lisinopril 5 Mg Tablet) 5 mg PO DAILY [facility]; Protocol Last Admin: 08/31/22 07:56 Dose: 5 mg Documented By: SOLEDAD Montelukast Sodium (Montelukast Sodium 10 Mg Tablet) 10 mg PO BEDTIME [facility] Last Admin: 08/30/22 20:34 Dose: 10 mg Documented By: NOLVIA Patient Own ( Umeclidinium- Vilanterol [Anoro Ellipta] 62.5-25 Mcg /Actuation Bl 1 each INHALE RDAILY [facility] Last Admin: 08/31/22 10:45 Dose: 1 each Documented By: SOLEDAD Omeprazole (Omeprazole 40 Mg Capsule.Dr) 40 mg PO DAILY@0630 [facility] Last Admin: 08/31/22 05:13 Dose: 40 mg Documented By: JOBY Ondansetron HCl (Ondansetron Hcl 4 Mg/2 Ml Vial) 4 mg IVPUSH Q8H PRN PRN Reason: Nausea and Vomiting Last Admin: 08/31/22 13:36 Dose: 4 mg Documented By: BIJU Oseltamivir Phosphate (Oseltamivir Phosphate 30 Mg Capsule) 30 mg PO Q12H [facility] Stop: 09/05/22 09:59 Last Admin: 08/31/22 11:34 Dose: 30 mg Documented By: SOLEDAD Oxybutynin Chloride (Oxybutynin Chloride Er 5 Mg Tab.Er.24) 5 mg PO DAILY [facility] Last Admin: 08/31/22 07:55 Dose: 5 mg Documented By: SOLEDAD Pharmacy Consult (Consult Rx Perform Med Rec) 1 each MISCELLANE ONCE PRN PRN Reason: Consult order Sodium Chloride (0.9 % Sodium Chloride Flush 3 Ml Syringe) 3 ml IVFLUSH QSHIFT [facility] Last Admin: 08/31/22 15:55 Dose: 3 ml Documented By: BIJU Tramadol HCl (Tramadol Hcl 50 Mg Tablet) 25 mg PO BID [facility] Last Admin: 08/31/22 07:56 Dose: 25 mg Documented By: SOLEDAD Labs 08/29/22 06:02 08/29/22 06:02 Labs: Laboratory Results - last 24 hr 08/30/22 08/31/22 08/31/22 20:18 07:40 11:17 POC Glucose 211 H 163 H 214 H 08/31/22 15:52 POC Glucose 149 H Assessment and Plan (1) COPD (chronic obstructive pulmonary disease): Status: Acute Assessment and Plan: 81-year-old female with COPD, history of pseudomonal pneumonia, coronary artery disease, paroxysmal atrial fibrillation anticoagulated with Eliquis, congestive heart failure admitted for COPD exacerbation, aspiration pneumonia, and atrial fibrillation with RVR. 1.COPD exacerbation with aspiration pneumonia -finished course of antibiotics initially IV Zosyn than by mouth Levaquin for 5 days -will change levalbuterol/ipratropium nebs to qid -continue schedule cough medication recommend out of bed to chair and ambulation 2.Paroxysmal atrial fibrillation with RVR Tele monitor showed stable ventricular rate -on Eliquis 2.5 mg b.i.d. for anticoagulation,p.o. diltiazem for rate control -s/p dig load, if noted to have rapid ventricular rate will place on digoxin 0.125 mg daily 3. Unspecified Congestive heart failure, no echocardiogram available follows with [facility]. -no acute exacerbation. BNP baseline -continue p.o. Lasix 4. Nodular density at the pancreatic tail radiology recommend non emergent MRI evaluation to rule out pancreatic mass 5. Nondisplaced acute 11th and 12th right rib fractures, multiple vertebral body compression deformities age indeterminate continue Ultram twice daily 6. Influenza a infection/generalized weakness On Tamiflu 30 mg b.i.d. day 1/5 continue supportive care, being followed with physical therapy noted to have dyspnea with activity and fatigue PT recommend home PT versus short-term rehab patient declines rehab. Eliquis Full code PT recommend home physical therapy vs STR, patient lives at home with family. Patient requires ongoing hospitalization for generalized weakness likely due to influenza A infection/aspiration pneumonia . (2) Atrial fibrillation with RVR: Status: Acute Time Spent With Patient Time: Total time managing care of this patient today ____ minutes. Quality Stroke Does the patient have a stroke diagnosis?: No VTE Prior VTE?: No VTE Risk Level:: Medical - moderate - high VTE Device Contraindication: Treatment Not Indicated VTE Drug Contraindication: N/A - Med Ordered
[2022-08-31 20:13] LABS: Glucose, Whole Blood 215 mg/dL (60-115)
[2022-08-31] MEDS: Docusate Sodium 100 MG CAPSULE PO (21:56)
[2022-08-31] MEDS: Montelukast Sodium 10 MG TABLET PO (21:56)
--- NOTE | 2022-08-31 22:00 | PC.NURSE ---
Addendum entered by Mary Bean RN 09/01/22 03:08: Pt was incontinent of urine and demanding to have purewick put back in. Discussed Pt that it may be best to leave it for now due to reddened labia. Pt angry and requested to speak to plastic sheets finishing supervisor. Purewick put back in and plastic sheets finishing supervisor went in to speak to Pt. Original Note: At beginning of shift, Pt c/o discomfort in her alisha area due to purewick. Upon assessment, labia appears red and raw. Discussed with patient and son and daughter who were at bedside that it would be best to have the purewick out and let things breathe.
--- NOTE | 2022-08-31 22:00 | PC.NURSE ---
Pt w/ small amount of blood on tissue when she coughs up. She does say her throat is dry and has been coughing a lot. She also gets robitussin w for cough. She is on eliquis. MD Whelan notified, no new orders.
[2022-09-01] VITALS (9 sets, daily range): BP systolic 106–133; BP diastolic 52–63; PULSE 73–81; RESP 16–20; TEMP 36.1–36.7; O2SAT 88–96; BMI 31.0
[2022-09-01] MEDS: Omeprazole 40 MG CAPSULE.DR PO (06:54)
[2022-09-01 07:21] LABS: Glucose, Whole Blood 141 mg/dL (60-115)
[2022-09-01] MEDS: Ipratropium Bromide 0.5 MG/2.5 ML SOLUTION INHALE ×3 (07:54→20:36)
[2022-09-01] MEDS: guaiFENesin DM 100/10/5 ML 5 ML SYRUP PO ×3 (10:23→20:38)
[2022-09-01] MEDS: dilTIAZem HCL CD 240 MG CAP.ER.DEG PO (10:24)
[2022-09-01] MEDS: Apixaban 2.5 MG TABLET PO ×2 (10:24→20:39)
[2022-09-01] MEDS: Furosemide 20 MG TABLET PO (10:24)
[2022-09-01] MEDS: 0.9 % Sodium Chloride Flush 3 ML SYRINGE IVFLUSH ×3 (10:24→23:28)
[2022-09-01] MEDS: lisinopriL 5 MG TABLET PO (10:24)
[2022-09-01] MEDS: traMADoL HCL 50 MG TABLET 25 MG PO ×2 (10:24→20:38)
[2022-09-01] MEDS: Ferrous Sulfate 324 MG TABLET.DR PO (10:25)
[2022-09-01] MEDS: Oseltamivir Phosphate 30 MG CAPSULE PO ×2 (10:25→20:39)
[2022-09-01] MEDS: oxyBUTYnin chloride ER 5 MG TAB.ER.24 PO (10:25)
[2022-09-01] MEDS: Fluticasone Propionate Nasal 16 GM SPRAY 1 SPRAY NOSTRIL-B ×2 (10:26→19:47)
[2022-09-01 12:01] LABS: Glucose, Whole Blood 323 mg/dL (60-115)
[2022-09-01] MEDS: Insulin Lispro 100 UNIT/ML 3 ML VIAL SUBCUT (12:12)
--- NOTE | 2022-09-01 12:48 | HO.PM.IMPN ---
Subjective Subjective Date of Service: 09/01/22 Interval History: C/o dyspnea + weakness No chest pain Review of Systems Review of Systems: Yes all other systems are reviewed and are negative Physical Exam Vital Signs: Vital Signs: Last Vital Signs Temp 97.9 F 09/01/22 07:34 Pulse 81 09/01/22 12:00 Resp 16 09/01/22 12:00 BP 131/63 09/01/22 12:00 Pulse Ox 92 09/01/22 12:00 O2 Del Method Room Air 09/01/22 12:00 Oxygen Flow Rate 4 08/23/22 15:06 BMI result Body Mass Index 31.0 Gen: in no acute distress HEENT: sclera anicteric, moist mucus membranes Neck: supple Lungs: bibasilar inspiratory crackles Heart: irregularly irregular, no murmurs Abd: soft, non-tender, non-distended Ext: no edema Skin: warm/well-perfused Neuro: alert and oriented x3, no focal findings Psych: appropriate affect Objective Data Active Medications Acetaminophen (Acetaminophen 325 Mg Tablet) 650 mg PO Q6H PRN PRN Reason: Pain, Mild (Pain Scale 1-3) Last Admin: 08/30/22 03:49 Dose: 650 mg Documented By: OSMEL Acetaminophen/Butalbital/Caffeine (Butalb/Acetamin/Caff 50/325/40 Tablet) 1 tab PO Q4H PRN PRN Reason: Headache Last Admin: 08/29/22 03:07 Dose: 1 tab Documented By: OSMEL Apixaban (Apixaban 2.5 Mg Tablet) 2.5 mg PO BID [facility] Last Admin: 09/01/22 10:24 Dose: 2.5 mg Documented By: JOSE Benzonatate (Benzonatate 100 Mg Capsule) 200 mg PO TID PRN PRN Reason: cough Last Admin: 08/26/22 22:46 Dose: 200 mg Documented By: NARENDRA Diltiazem HCl (Diltiazem Hcl Cd 240 Mg Cap.Er.Deg) 240 mg PO DAILY [facility]; Protocol Last Admin: 09/01/22 10:24 Dose: 240 mg Documented By: JOSE Docusate Sodium (Docusate Sodium 100 Mg Capsule) 100 mg PO DAILY PRN PRN Reason: Constipation Docusate Sodium (Docusate Sodium 100 Mg Capsule) 100 mg PO BEDTIME [facility] Last Admin: 08/31/22 21:56 Dose: 100 mg Documented By: JOBY Ferrous Sulfate (Ferrous Sulfate 324 Mg Tablet.) 324 mg PO DAILY [facility] Last Admin: 09/01/22 10:25 Dose: 324 mg Documented By: JOSE Fluticasone Propionate (Fluticasone Propionate Nasal 16 Gm [place]) 1 spray NOSTRIL-B BID [facility] Last Admin: 09/01/22 10:26 Dose: 1 spray Documented By: JOSE Furosemide (Furosemide 20 Mg Tablet) 20 mg PO DAILY [facility]; Protocol Last Admin: 09/01/22 10:24 Dose: 20 mg Documented By: JOSE Glucose (Glucose Gel 15 Gm Gel..Gram.) 15 gm PO Q15M PRN; Protocol PRN Reason: per Hypoglycemia Standing Ord. Guaifenesin/Dextromethorphan (Guaifenesin Dm 100/10/5 Ml 5 Ml Syrup) 5 ml PO TID [facility] Last Admin: 09/01/22 10:23 Dose: 5 ml Documented By: JOSE Dextrose (D10) 250 mls @ 750 mls/hr IV Q15M PRN; Protocol PRN Reason: per Hypoglycemia Standing Ord. Insulin Human Lispro (Insulin Lispro 100 Unit/Ml 3 Ml Vial) 0 unit SUBCUT QIDACHS [facility]; Protocol Last Admin: 09/01/22 12:12 Dose: 8 unit Documented By: JOSE Ipratropium [place] (Ipratropium [place] 0.5 Mg/2.5 Ml Solution) 0.[address] [facility] Last Admin: 09/01/22 11:21 Dose: Not Given Documented By: KVNG Non-Admin Reason: Patient Refused Levalbuterol HCl (Levalbuterol Hcl 1.25 Mg/0.5 Ml Vial.Neb) 1.25 mg INHALE RQID [facility] Last Admin: 09/01/22 11:21 Dose: Not Given Documented By: KVNG Non-Admin Reason: Patient Refused Lisinopril (Lisinopril 5 Mg Tablet) 5 mg PO DAILY [facility]; Protocol Last Admin: 09/01/22 10:24 Dose: 5 mg Documented By: JOSE Montelukast Sodium (Montelukast Sodium 10 Mg Tablet) 10 mg PO BEDTIME [facility] Last Admin: 08/31/22 21:56 Dose: 10 mg Documented By: JOBY Patient Own ( Umeclidinium- Vilanterol [Anoro Ellipta] 62.5-25 Mcg /Actuation Bl 1 each INHALE RDAILY [facility] Last Admin: 09/01/22 11:48 Dose: Not Given Documented By: JOSE Non-Admin Reason: pt did not use at this time Omeprazole (Omeprazole 40 Mg Capsule.Dr) 40 mg PO DAILY@0630 [facility] Last Admin: 09/01/22 06:54 Dose: 40 mg Documented By: JOBY Ondansetron HCl (Ondansetron Hcl 4 Mg/2 Ml Vial) 4 mg IVPUSH Q8H PRN PRN Reason: Nausea and Vomiting Last Admin: 08/31/22 13:36 Dose: 4 mg Documented By: BIJU Oseltamivir Phosphate (Oseltamivir Phosphate 30 Mg Capsule) 30 mg PO Q12H [facility] Stop: 09/05/22 09:59 Last Admin: 09/01/22 10:25 Dose: 30 mg Documented By: JOSE Oxybutynin Chloride (Oxybutynin Chloride Er 5 Mg Tab.Er.24) 5 mg PO DAILY [facility] Last Admin: 09/01/22 10:25 Dose: 5 mg Documented By: JOSE Pharmacy Consult (Consult Rx Perform Med Rec) 1 each MISCELLANE ONCE PRN PRN Reason: Consult order Sodium Chloride (0.9 % Sodium Chloride Flush 3 Ml Syringe) 3 ml IVFLUSH QSHIFT [facility] Last Admin: 09/01/22 10:24 Dose: 3 ml Documented By: JOSE Tramadol HCl (Tramadol Hcl 50 Mg Tablet) 25 mg PO BID [facility] Last Admin: 09/01/22 10:24 Dose: 25 mg Documented By: JOSE Labs 08/29/22 06:02 08/29/22 06:02 Labs: Laboratory Results - last 24 hr 08/31/22 08/31/22 09/01/22 15:52 20:03 07:09 POC Glucose 149 H 215 H 141 H 09/01/22 11:48 POC Glucose 323 H Assessment and Plan (1) COPD (chronic obstructive pulmonary disease): Status: Acute Assessment and Plan: hospital d#10 81yo F with paroxysmal AF on apixaban, CAD, COPD, HFpEF, hx pseudomonal PNA admitted for COPD exacerbation, aspiration PNA + atrial fibrillation; developed influenza A # dyspnea - check CXR, BNP, PCT. may require IV diuresis # influenza A - on oseltamivir d#2/5 # COPD exacerbation # aspiration PNA - completed pip-estefany + levofloxacin course - standing/prn nebs # paroxysmal AF - was in RVR; now rate-controlled in 80s-90s - continue diltiazem for rate control; was loaded with digoxin. if develops RVR again, consider maintenance digoxin 125 mcg daily - continue apixaban for anticoagulation # chronic HFpEF - continue PO furosemide, lisinopril # nodular density at pancreatic tail - outpatient MRI/MRCP to assess for pancreatic mass # nondisplaced acute 11th+12th R rib fractures # multiple vertebral compression deformities, age-indeterminate - IS, tramadol # VTE ppx: apixaban # dispo: PT evaluated, recommends STR vs home PT, pt declines STR In my clinical judgment, the patient requires continued inpatient hospitalization for the following reasons: dyspnea (2) Atrial fibrillation with RVR: Status: Acute Time Spent With Patient Time: Total time managing care of this patient today ___35_ minutes. Quality Stroke Does the patient have a stroke diagnosis?: No VTE Prior VTE?: No VTE Risk Level:: Medical - moderate - high VTE Device Contraindication: Treatment Not Indicated VTE Drug Contraindication: N/A - Med Ordered
[2022-09-01 13:49] LABS: Hematocrit 27.1 % (37.0-47.0); Hemoglobin 9.1 g/dl (12.0-16.0); Mean Corpuscular HGB Conc 33.6 g/dl (31.0-35.0); Mean Corpuscular Hemoglobin 31.3 pg (27.0-33.0); Mean Corpuscular Volume 93.1 fL (80.0-98.0); PLT CLUMP 1; Red Blood Count 2.91 X10*6/uL (4.20-5.50); Red Cell Distribution Width 17.4 % (11.0-16.0)
[2022-09-01 13:52] LABS: White Blood Count 8.8 X10*3/uL (4.8-10.8)
[2022-09-01 14:29] LABS: B Type Natriuretic Peptide 44 pg/mL (<100)
[2022-09-01 15:22] LABS: Anion Gap 17 (12-20); Blood Urea Nitrogen 29 mg/dL (9-16); Calcium 7.8 mg/dL (8.4-10.2); Carbon Dioxide 24 mmol/L (22-29); Chloride 95 mmol/L (96-108); Creatinine Clr Calc Pharmacy 24.1; Estimated Glomerular Filt Rate 35; Glucose Random 228 mg/dL (60-115); Potassium 4.1 mmol/L (3.3-5.1); Sodium 132 mmol/L (135-145)
[2022-09-01 15:37] LABS: Procalcitonin 0.17 ng/mL
[2022-09-01 15:54] LABS: Glucose, Whole Blood 122 mg/dL (60-115)
[2022-09-01 20:26] LABS: Glucose, Whole Blood 133 mg/dL (60-115)
[2022-09-01] MEDS: traZODone HCL 50 MG TABLET PO (20:39)
[2022-09-01] MEDS: Docusate Sodium 100 MG CAPSULE PO (20:39)
[2022-09-01] MEDS: Montelukast Sodium 10 MG TABLET PO (20:39)
[2022-09-02] VITALS (9 sets, daily range): BP systolic 110–125; BP diastolic 40–60; PULSE 74–96; RESP 16–19; TEMP 36.1–36.6; O2SAT 91–100
[2022-09-02] MEDS: diphenhydrAMINE HCL 50 MG/ML VIAL 25 MG IVPUSH (01:20)
[2022-09-02] MEDS: Omeprazole 40 MG CAPSULE.DR PO (05:02)
[2022-09-02 07:57] LABS: Glucose, Whole Blood 118 mg/dL (60-115)
[2022-09-02] MEDS: oxyBUTYnin chloride ER 5 MG TAB.ER.24 PO (09:44)
[2022-09-02] MEDS: guaiFENesin DM 100/10/5 ML 5 ML SYRUP PO ×3 (09:44→21:02)
[2022-09-02] MEDS: Apixaban 2.5 MG TABLET PO ×2 (09:44→21:02)
[2022-09-02] MEDS: lisinopriL 5 MG TABLET PO (09:44)
[2022-09-02] MEDS: 0.9 % Sodium Chloride Flush 3 ML SYRINGE IVFLUSH ×3 (09:44→21:03)
[2022-09-02] MEDS: dilTIAZem HCL CD 240 MG CAP.ER.DEG PO (09:44)
[2022-09-02] MEDS: Oseltamivir Phosphate 30 MG CAPSULE PO ×2 (09:45→21:02)
[2022-09-02] MEDS: traMADoL HCL 50 MG TABLET 25 MG PO ×2 (09:45→21:03)
[2022-09-02] MEDS: Ferrous Sulfate 324 MG TABLET.DR PO (09:45)
[2022-09-02] MEDS: Fluticasone Propionate Nasal 16 GM SPRAY 1 SPRAY NOSTRIL-B ×2 (09:53→21:11)
--- NOTE | 2022-09-02 10:47 | P.PNIM_ITS ---
Subjective Subjective Date of Service: 09/02/22 Interval History: dyspnea resolved weakness improved SCr up Review of Systems Review of Systems: Yes all other systems are reviewed and are negative Physical Exam Vital Signs: Vital Signs: Last Vital Signs Temp 97.8 F 09/02/22 08:00 Pulse 75 09/02/22 08:00 Resp 19 09/02/22 08:00 BP 110/40 L 09/02/22 08:00 Pulse Ox 91 L 09/02/22 08:00 O2 Del Method Room Air 09/02/22 08:00 Oxygen Flow Rate 4 08/23/22 15:06 BMI result Body Mass Index 31.0 Gen: in no acute distress HEENT: sclera anicteric, moist mucus membranes Neck: supple Lungs: clear bilaterally Heart: irregularly irregular, no murmurs Abd: soft, non-tender, non-distended Ext: no edema Skin: warm/well-perfused Neuro: alert and oriented x3, no focal findings Psych: appropriate affect Objective Data Active Medications Acetaminophen (Acetaminophen 325 Mg Tablet) 650 mg PO Q6H PRN PRN Reason: Pain, Mild (Pain Scale 1-3) Last Admin: 08/30/22 03:49 Dose: 650 mg Documented By: OSMEL Acetaminophen/Butalbital/Caffeine (Butalb/Acetamin/Caff 50/325/40 Tablet) 1 tab PO Q4H PRN PRN Reason: Headache Last Admin: 08/29/22 03:07 Dose: 1 tab Documented By: OSMEL Apixaban (Apixaban 2.5 Mg Tablet) 2.5 mg PO BID [facility] Last Admin: 09/02/22 09:44 Dose: 2.5 mg Documented By: RADHIKA Benzonatate (Benzonatate 100 Mg Capsule) 200 mg PO TID PRN PRN Reason: cough Last Admin: 08/26/22 22:46 Dose: 200 mg Documented By: NARENDRA Diltiazem HCl (Diltiazem Hcl Cd 240 Mg Cap.Er.Deg) 240 mg PO DAILY [facility]; Protocol Last Admin: 09/02/22 09:44 Dose: 240 mg Documented By: RADHIKA Docusate Sodium (Docusate Sodium 100 Mg Capsule) 100 mg PO DAILY PRN PRN Reason: Constipation Docusate Sodium (Docusate Sodium 100 Mg Capsule) 100 mg PO BEDTIME [facility] Last Admin: 09/01/22 20:39 Dose: 100 mg Documented By: ABEL Ferrous Sulfate (Ferrous Sulfate 324 Mg Tablet.) 324 mg PO DAILY [facility] Last Admin: 09/02/22 09:45 Dose: 324 mg Documented By: RADHIKA Fluticasone Propionate (Fluticasone Propionate Nasal 16 Gm [place]) 1 spray NOSTRIL-B BID [facility] Last Admin: 09/02/22 09:53 Dose: 1 spray Documented By: RADHIKA Furosemide (Furosemide 20 Mg Tablet) 20 mg PO DAILY [facility]; Protocol Last Admin: 09/01/22 10:24 Dose: 20 mg Documented By: JOSE Glucose (Glucose Gel 15 Gm Gel..Gram.) 15 gm PO Q15M PRN; Protocol PRN Reason: per Hypoglycemia Standing Ord. Guaifenesin/Dextromethorphan (Guaifenesin Dm 100/10/5 Ml 5 Ml Syrup) 5 ml PO TID [facility] Last Admin: 09/02/22 09:44 Dose: 5 ml Documented By: RADHIKA Dextrose (D10) 250 mls @ 750 mls/hr IV Q15M PRN; Protocol PRN Reason: per Hypoglycemia Standing Ord. Insulin Human Lispro (Insulin Lispro 100 Unit/Ml 3 Ml Vial) 0 unit SUBCUT QIDACHS [facility]; Protocol Last Admin: 09/02/22 08:12 Dose: Not Given Documented By: RADHIKA Non-Admin Reason: No Insulin Coverage Ipratropium [place] (Ipratropium [place] 0.5 Mg/2.5 Ml Solution) 0.5 mg INHALE [facility] Last Admin: 09/02/22 07:48 Dose: Not Given Documented By: MARY Non-Admin Reason: Patient Refused Levalbuterol HCl (Levalbuterol Hcl 1.25 Mg/0.5 Ml Vial.Neb) 1.25 mg INHALE RQID [facility] Last Admin: 09/02/22 07:48 Dose: Not Given Documented By: MARY Non-Admin Reason: Patient Refused Lisinopril (Lisinopril 5 Mg Tablet) 5 mg PO DAILY [facility]; Protocol Last Admin: 09/02/22 09:44 Dose: 5 mg Documented By: RADHIKA Montelukast Sodium (Montelukast Sodium 10 Mg Tablet) 10 mg PO BEDTIME [facility] Last Admin: 09/01/22 20:39 Dose: 10 mg Documented By: ABEL Patient Own ( Umeclidinium- Vilanterol [Anoro Ellipta] 62.5-25 Mcg /Actuation Bl 1 each INHALE RDAILY [facility] Last Admin: 09/02/22 09:44 Dose: 1 each Documented By: RADHIKA Omeprazole (Omeprazole 40 Mg Capsule.Dr) 40 mg PO DAILY@0630 [facility] Last Admin: 09/02/22 05:02 Dose: 40 mg Documented By: DEWAYNE Ondansetron HCl (Ondansetron Hcl 4 Mg/2 Ml Vial) 4 mg IVPUSH Q8H PRN PRN Reason: Nausea and Vomiting Last Admin: 08/31/22 13:36 Dose: 4 mg Documented By: MANUEL-CLARKEARajiv Oseltamivir Phosphate (Oseltamivir Phosphate 30 Mg Capsule) 30 mg PO Q12H [facility] Stop: 09/05/22 09:59 Last Admin: 09/02/22 09:45 Dose: 30 mg Documented By: RADHIKA Oxybutynin Chloride (Oxybutynin Chloride Er 5 Mg Tab.Er.24) 5 mg PO DAILY [facility] Last Admin: 09/02/22 09:44 Dose: 5 mg Documented By: RADHIKA Pharmacy Consult (Consult Rx Perform Med Rec) 1 each MISCELLANE ONCE PRN PRN Reason: Consult order Sodium Chloride (0.9 % Sodium Chloride Flush 3 Ml Syringe) 3 ml IVFLUSH QSHIFT [facility] Last Admin: 09/02/22 09:44 Dose: 3 ml Documented By: RADHIKA Tramadol HCl (Tramadol Hcl 50 Mg Tablet) 25 mg PO BID [facility] Last Admin: 09/02/22 09:45 Dose: 25 mg Documented By: RADHIKA Labs 09/01/22 12:21 09/01/22 Unknown Labs: Laboratory Results - last 24 hr 09/01/22 09/01/22 09/01/22 11:48 12:21 12:21 MCV 93.1 MCH 31.3 MCHC 33.6 RDW 17.4 H Plt Count TNP MPV TNP Absolute Nucleated RBC 0.000 Nucleated RBC % (auto) 0.0 Anion Gap Estim Creat Clear Calc Estimated GFR POC Glucose 323 H Random Glucose Calcium B-Natriuretic Peptide 44 Procalcitonin 09/01/22 09/01/22 09/01/22 15:22 19:04 Unknown MCV MCH MCHC RDW Plt Count MPV Absolute Nucleated RBC Nucleated RBC % (auto) Anion Gap 17 Estim Creat Clear Calc 24.1 Estimated GFR 35 POC Glucose 122 H 133 H Random Glucose 228 H Calcium 7.8 L B-Natriuretic Peptide Procalcitonin 0.17 09/02/22 07:51 MCV MCH MCHC RDW Plt Count MPV Absolute Nucleated RBC Nucleated RBC % (auto) Anion Gap Estim Creat Clear Calc Estimated GFR POC Glucose 118 H Random Glucose Calcium B-Natriuretic Peptide Procalcitonin Assessment and Plan (1) COPD (chronic obstructive pulmonary disease): Status: Acute Assessment and Plan: hospital d#11 81yo F with paroxysmal AF on apixaban, CAD, COPD, HFpEF, hx pseudomonal PNA admitted for COPD exacerbation, aspiration PNA + atrial fibrillation; developed influenza A # CANDIDO - may be slightly dry; hold diuretic for 1 day and recheck BMP in AM # influenza A - on oseltamivir d#3/5 # COPD exacerbation # aspiration PNA - completed pip-estefany + levofloxacin course - standing/prn nebs # paroxysmal AF - was in RVR; now rate-controlled in 80s-90s - continue diltiazem for rate control; was loaded with digoxin. if develops RVR again, consider maintenance digoxin 125 mcg daily - continue apixaban for anticoagulation # chronic HFpEF - continue PO furosemide, lisinopril # nodular density at pancreatic tail - outpatient MRI/MRCP to assess for pancreatic mass # nondisplaced acute 11th+12th R rib fractures # multiple vertebral compression deformities, age-indeterminate - IS, tramadol # VTE ppx: apixaban # dispo: PT evaluated, recommends STR vs home PT, pt declines STR In my clinical judgment, the patient requires continued inpatient hospitalization for the following reasons: CANDIDO (2) Atrial fibrillation with RVR: Status: Acute Time Spent With Patient Time: Total time managing care of this patient today __35__ minutes. Quality Stroke Does the patient have a stroke diagnosis?: No VTE Prior VTE?: No VTE Risk Level:: Medical - moderate - high VTE Device Contraindication: Treatment Not Indicated VTE Drug Contraindication: N/A - Med Ordered
--- NOTE | 2022-09-02 11:13 | MHC.CLN ---
F/U PT WITH INCREASED NUTRITION RISK R/T NEW PI PO INTAKE 75-100% DIET RX: CARDIAC-RECOMMEND LIBERALIZING TO 2GM NA R/T ADVANCED AGE RECOMMEND ADDING ENSURE BID TO PROMOTE WOUND HEALING SUPP TO PROVIDE 700KCLAS, 40G PROTEIN WITH 100% ACCEPTANCE MONITOR PO INTAKE AND SUPP ACCEPTANCE SEE ALSO FULL CLINICAL NUTRITION ASSESSMENT
[2022-09-02] MEDS: Ipratropium Bromide 0.5 MG/2.5 ML SOLUTION INHALE ×2 (11:33→19:39)
[2022-09-02 11:53] LABS: Glucose, Whole Blood 217 mg/dL (60-115)
[2022-09-02] MEDS: Insulin Lispro 100 UNIT/ML 3 ML VIAL SUBCUT ×2 (12:39→17:04)
--- NOTE | 2022-09-02 14:35 | MHC.SL.SWA ---
Speech Pathologist Impression: Risk of Aspiration Due to: Medically Fragile Dysphasia Diet Status: Liquid Consistency and Strategies for Safe Swallow: Liquid Intake Recommendation: Thin Liquid Intake Strategies: Solid Food Consistency: Dietary Recommendations: Chopped/Advanced (NDD3) Additional Modifications to Solid Foods: Oral Medication Intake: Whole with Puree Please contact the pharmacy regarding appropriate crushable or liquid drug formulations that are available whenever modified delivery is recommended. Supervision While Eating and Drinking for Safe Swallow: Intermittent Supervision Swallowing Recommended Treatments: Compens. Strategy Educat. Recommendation for Speech: Inpatient Speech Therapy Petroleum Inspector Supervisor Clinican/Clinical Fellow: No Supervisory Statement: I have reviewed and agree with the student/clinical fellow's documentation: N/A Speech Language Pathologist: Dejan Nagel M.A., CCC-PARASITOLOGIST
[2022-09-02 15:05] LABS: Glucose, Whole Blood 214 mg/dL (60-115)
--- NOTE | 2022-09-02 16:04 | MHC.CM.PN ---
per rounds pt will be dcd sat with vna hvns notified
[2022-09-02 18:54] LABS: Glucose, Whole Blood 168 mg/dL (60-115)
[2022-09-02] MEDS: Montelukast Sodium 10 MG TABLET PO (21:02)
[2022-09-02] MEDS: Docusate Sodium 100 MG CAPSULE PO (21:02)
[2022-09-03] VITALS (8 sets, daily range): BP systolic 95–154; BP diastolic 52–67; PULSE 70–77; RESP 16–20; TEMP 36.3–37; O2SAT 91–98
[2022-09-03 07:37] LABS: Glucose, Whole Blood 147 mg/dL (60-115)
[2022-09-03 07:44] LABS: Hematocrit 27.4 % (37.0-47.0); Hemoglobin 9.2 g/dl (12.0-16.0); Mean Corpuscular HGB Conc 33.6 g/dl (31.0-35.0); Mean Corpuscular Hemoglobin 32.1 pg (27.0-33.0); Mean Corpuscular Volume 95.5 fL (80.0-98.0); Mean Platelet Volume 11.5 fL (9.4-12.3); Platelet Count 114 X10*3/uL (160-400); Red Blood Count 2.87 X10*6/uL (4.20-5.50); Red Cell Distribution Width 18.1 % (11.0-16.0); White Blood Count 7.6 X10*3/uL (4.8-10.8)
[2022-09-03 08:15] LABS: B Type Natriuretic Peptide 46 pg/mL (<100)
[2022-09-03 08:21] LABS: Anion Gap 18 (12-20); Blood Urea Nitrogen 29 mg/dL (9-16); Calcium 7.7 mg/dL (8.4-10.2); Carbon Dioxide 22 mmol/L (22-29); Chloride 96 mmol/L (96-108); Creatinine Clr Calc Pharmacy 19.6; Estimated Glomerular Filt Rate 28; Glucose Random 129 mg/dL (60-115); Potassium 4.1 mmol/L (3.3-5.1); Sodium 132 mmol/L (135-145)
[2022-09-03] MEDS: oxyBUTYnin chloride ER 5 MG TAB.ER.24 PO (09:58)
[2022-09-03] MEDS: Ferrous Sulfate 324 MG TABLET.DR PO (09:58)
[2022-09-03] MEDS: guaiFENesin DM 100/10/5 ML 5 ML SYRUP PO ×2 (09:58→20:40)
[2022-09-03] MEDS: traMADoL HCL 50 MG TABLET 25 MG PO ×2 (09:59→20:40)
[2022-09-03] MEDS: lisinopriL 5 MG TABLET PO (10:00)
[2022-09-03] MEDS: dilTIAZem HCL CD 240 MG CAP.ER.DEG PO (10:00)
[2022-09-03] MEDS: Fluticasone Propionate Nasal 16 GM SPRAY 1 SPRAY NOSTRIL-B (10:02)
[2022-09-03] MEDS: Apixaban 2.5 MG TABLET PO ×2 (10:02→20:40)
[2022-09-03] MEDS: 0.9 % Sodium Chloride Flush 3 ML SYRINGE IVFLUSH (10:02)
[2022-09-03] MEDS: Oseltamivir Phosphate 30 MG CAPSULE PO ×2 (10:13→20:53)
--- NOTE | 2022-09-03 10:20 | HO.PM.IMPN ---
Subjective Subjective Date of Service: 09/03/22 Interval History: feels weak but not short of breath cough improved SCr worse Review of Systems Review of Systems: Yes all other systems are reviewed and are negative Physical Exam Vital Signs: Vital Signs: Last Vital Signs Temp 97.3 F 09/03/22 08:00 Pulse 73 09/03/22 08:00 Resp 20 09/03/22 08:00 BP 108/53 L 09/03/22 08:00 Pulse Ox 95 09/03/22 08:00 O2 Del Method Room Air 09/03/22 08:00 Oxygen Flow Rate 4 08/23/22 15:06 BMI result Body Mass Index 31.0 Gen: in no acute distress HEENT: sclera anicteric, moist mucus membranes Neck: supple Lungs: clear bilaterally Heart: irregularly irregular, no murmurs Abd: soft, non-tender, non-distended Ext: no edema Skin: warm/well-perfused Neuro: alert and oriented x3, no focal findings Psych: appropriate affect Objective Data Active Medications Acetaminophen (Acetaminophen 325 Mg Tablet) 650 mg PO Q6H PRN PRN Reason: Pain, Mild (Pain Scale 1-3) Last Admin: 08/30/22 03:49 Dose: 650 mg Documented By: OSMEL Acetaminophen/Butalbital/Caffeine (Butalb/Acetamin/Caff 50/325/40 Tablet) 1 tab PO Q4H PRN PRN Reason: Headache Last Admin: 08/29/22 03:07 Dose: 1 tab Documented By: OSMEL Apixaban (Apixaban 2.5 Mg Tablet) 2.5 mg PO BID [facility] Last Admin: 09/03/22 10:02 Dose: 2.5 mg Documented By: RADHIKA Benzonatate (Benzonatate 100 Mg Capsule) 200 mg PO TID PRN PRN Reason: cough Last Admin: 08/26/22 22:46 Dose: 200 mg Documented By: NARENDRA Diltiazem HCl (Diltiazem Hcl Cd 240 Mg Cap.Er.Deg) 240 mg PO DAILY [facility]; Protocol Last Admin: 09/03/22 10:00 Dose: 240 mg Documented By: RADHIKA Docusate Sodium (Docusate Sodium 100 Mg Capsule) 100 mg PO DAILY PRN PRN Reason: Constipation Docusate Sodium (Docusate Sodium 100 Mg Capsule) 100 mg PO BEDTIME [facility] Last Admin: 09/02/22 21:02 Dose: 100 mg Documented By: OSMEL Ferrous Sulfate (Ferrous Sulfate 324 Mg Tablet.) 324 mg PO DAILY [facility] Last Admin: 09/03/22 09:58 Dose: 324 mg Documented By: RADHIKA Fluticasone Propionate (Fluticasone Propionate Nasal 16 Gm [place]) 1 spray NOSTRIL-B BID [facility] Last Admin: 09/03/22 10:02 Dose: 1 spray Documented By: RADHIKA Furosemide (Furosemide 20 Mg Tablet) 20 mg PO DAILY [facility]; Protocol Last Admin: 09/01/22 10:24 Dose: 20 mg Documented By: JOSE Glucose (Glucose Gel 15 Gm Gel..Gram.) 15 gm PO Q15M PRN; Protocol PRN Reason: per Hypoglycemia Standing Ord. Guaifenesin/Dextromethorphan (Guaifenesin Dm 100/10/5 Ml 5 Ml Syrup) 5 ml PO TID [facility] Last Admin: 09/03/22 09:58 Dose: 5 ml Documented By: RADHIKA Dextrose (D10) 250 mls @ 750 mls/hr IV Q15M PRN; Protocol PRN Reason: per Hypoglycemia Standing Ord. Sodium Chloride (Ns) 1,000 mls @ 50 mls/hr IVCONT .Q20H [facility] Stop: 09/03/22 18:29 Insulin Human Lispro (Insulin Lispro 100 Unit/Ml 3 Ml Vial) 0 unit SUBCUT QIDACHS [facility]; Protocol Last Admin: 09/03/22 08:02 Dose: Not Given Documented By: RADHIKA Non-Admin Reason: No Insulin Coverage Ipratropium [place] (Ipratropium [place] 0.5 Mg/2.5 Ml Solution) 0.5 mg INHALE RQID [facility] Last Admin: 09/03/22 08:02 Dose: Not Given Documented By: JOSE Non-Admin Reason: Patient Asleep Levalbuterol HCl (Levalbuterol Hcl 1.25 Mg/0.5 Ml Vial.Neb) 1.25 mg INHALE RQID [facility] Last Admin: 09/03/22 08:02 Dose: Not Given Documented By: JOSE Non-Admin Reason: Patient Asleep Lisinopril (Lisinopril 5 Mg Tablet) 5 mg PO DAILY [facility]; Protocol Last Admin: 09/03/22 10:00 Dose: 5 mg Documented By: RADHIKA Montelukast Sodium (Montelukast Sodium 10 Mg Tablet) 10 mg PO BEDTIME [facility] Last Admin: 09/02/22 21:02 Dose: 10 mg Documented By: OSMEL Patient Own ( Umeclidinium- Vilanterol [Anoro Ellipta] 62.5-25 Mcg /Actuation Bl 1 each INHALE RDAILY [facility] Last Admin: 09/03/22 10:01 Dose: 1 each Documented By: RADHIKA Omeprazole (Omeprazole 40 Mg Capsule.Dr) 40 mg PO DAILY@0630 [facility] Last Admin: 09/03/22 06:29 Dose: Not Given Documented By: OSMEL Non-Admin Reason: Patient Refused Ondansetron HCl (Ondansetron Hcl 4 Mg/2 Ml Vial) 4 mg IVPUSH Q8H PRN PRN Reason: Nausea and Vomiting Last Admin: 08/31/22 13:36 Dose: 4 mg Documented By: BIJU Oseltamivir Phosphate (Oseltamivir Phosphate 30 Mg Capsule) 30 mg PO Q12H [facility] Stop: 09/05/22 09:59 Last Admin: 09/03/22 10:13 Dose: 30 mg Documented By: RADHIKA Oxybutynin Chloride (Oxybutynin Chloride Er 5 Mg Tab.Er.24) 5 mg PO DAILY [facility] Last Admin: 09/03/22 09:58 Dose: 5 mg Documented By: RADHIKA Pharmacy Consult (Consult Rx Perform Med Rec) 1 each MISCELLANE ONCE PRN PRN Reason: Consult order Sodium Chloride (0.9 % Sodium Chloride Flush 3 Ml Syringe) 3 ml IVFLUSH QSHIFT [facility] Last Admin: 09/03/22 10:02 Dose: 3 ml Documented By: RADHIKA Tramadol HCl (Tramadol Hcl 50 Mg Tablet) 25 mg PO BID [facility] Last Admin: 09/03/22 09:59 Dose: 25 mg Documented By: RADHIKA Labs 09/03/22 07:10 09/03/22 07:10 Labs: Laboratory Results - last 24 hr 03/09/02/22 09/02/22 11:43 14:59 18:46 MCV MCH MCHC RDW Plt Count MPV Absolute Nucleated RBC Nucleated RBC % (auto) Anion Gap Estim Creat Clear Calc Estimated GFR POC Glucose 217 H 214 H 168 H Random Glucose Calcium B-Natriuretic Peptide 09/03/22 09/03/22 09/03/22 07:10 07:10 07:10 MCV 95.5 MCH 32.1 MCHC 33.6 RDW 18.1 H Plt Count 114 L MPV 11.5 Absolute Nucleated RBC 0.000 Nucleated RBC % (auto) 0.0 Anion Gap 18 Estim Creat Clear Calc 19.6 Estimated GFR 28 POC Glucose Random Glucose 129 H Calcium 7.7 L B-Natriuretic Peptide 46 09/03/22 07:29 MCV MCH MCHC RDW Plt Count MPV Absolute Nucleated RBC Nucleated RBC % (auto) Anion Gap Estim Creat Clear Calc Estimated GFR POC Glucose 147 H Random Glucose Calcium B-Natriuretic Peptide Assessment and Plan (1) COPD (chronic obstructive pulmonary disease): Status: Acute Assessment and Plan: hospital d#12 81yo F with paroxysmal AF on apixaban, CAD, COPD, HFpEF, hx pseudomonal PNA admitted for COPD exacerbation, aspiration PNA + atrial fibrillation; developed influenza A then CANDIDO # CANDIDO - continue to hold furosemide and will give 500 mL NS and recheck BMP in AMp; hold lisinopril # influenza A - on oseltamivir d#3/5 # COPD exacerbation # aspiration PNA - completed pip-estefany + levofloxacin course - standing/prn nebs # paroxysmal AF - was in RVR; now rate-controlled in 80s-90s - continue diltiazem for rate control; was loaded with digoxin. if develops RVR again, consider maintenance digoxin 125 mcg daily - continue apixaban for anticoagulation # chronic HFpEF - hold furosemide and lisinopril # nodular density at pancreatic tail - outpatient MRI/MRCP to assess for pancreatic mass # nondisplaced acute 11th+12th R rib fractures # multiple vertebral compression deformities, age-indeterminate - IS, tramadol # VTE ppx: apixaban # dispo: PT evaluated, recommends STR vs home PT, pt now amenable to STR In my clinical judgment, the patient requires continued inpatient hospitalization for the following reasons: CANDIDO (2) Atrial fibrillation with RVR: Status: Acute Time Spent With Patient Time: Total time managing care of this patient today __40__ minutes. Quality Stroke Does the patient have a stroke diagnosis?: No VTE Prior VTE?: No VTE Risk Level:: Medical - moderate - high VTE Device Contraindication: Treatment Not Indicated VTE Drug Contraindication: N/A - Med Ordered
[2022-09-03 10:59] LABS: Glucose, Whole Blood 238 mg/dL (60-115)
[2022-09-03] MEDS: 0.9 % Sodium Chloride 500 ML IV (11:55)
[2022-09-03] MEDS: ondansetron HCL 4 MG/2 ML VIAL IVPUSH (11:55)
[2022-09-03] MEDS: Insulin Lispro 100 UNIT/ML 3 ML VIAL SUBCUT (12:02)
[2022-09-03] MEDS: 0.9 % Sodium Chloride 1,000 ML 50 ML IVCONT (14:17)
[2022-09-03 15:17] LABS: Alanine Aminotransferase 21 U/L (0-31); Albumin Level 2.4 g/dL (3.5-5.0); Alkaline Phosphatase 109 U/L (39-117); Aspartate Amino Transferase 21 U/L (5-31); Bilirubin Direct 0.4 mg/dL (0.0-0.5); Bilirubin Total 1.3 mg/dL (0.0-1.0); Total Protein 4.6 g/dL (6.5-8.0)
[2022-09-03 16:36] LABS: Glucose, Whole Blood 194 mg/dL (60-115)
[2022-09-03] MEDS: Ipratropium Bromide 0.5 MG/2.5 ML SOLUTION INHALE (19:50)
[2022-09-03 20:09] LABS: Glucose, Whole Blood 194 mg/dL (60-115)
[2022-09-03] MEDS: Docusate Sodium 100 MG CAPSULE PO (20:40)
[2022-09-03] MEDS: Montelukast Sodium 10 MG TABLET PO (20:40)
[2022-09-04] VITALS (8 sets, daily range): BP systolic 111–142; BP diastolic 55–73; PULSE 56–76; RESP 15–20; TEMP 36.1–37.1; O2SAT 89–97
[2022-09-04] MEDS: Omeprazole 40 MG CAPSULE.DR PO (05:20)
[2022-09-04] MEDS: Acetaminophen 325 MG TABLET 650 MG PO ×2 (05:28→11:53)
[2022-09-04 07:29] LABS: Glucose, Whole Blood 132 mg/dL (60-115)
[2022-09-04 07:55] LABS: Anion Gap 17 (12-20); Blood Urea Nitrogen 25 mg/dL (9-16); Calcium 7.9 mg/dL (8.4-10.2); Carbon Dioxide 22 mmol/L (22-29); Chloride 99 mmol/L (96-108); Creatinine Clr Calc Pharmacy 27.2; Estimated Glomerular Filt Rate 40; Glucose Random 130 mg/dL (60-115); Potassium 3.7 mmol/L (3.3-5.1); Sodium 134 mmol/L (135-145)
[2022-09-04] MEDS: Ferrous Sulfate 324 MG TABLET.DR PO (08:05)
[2022-09-04] MEDS: oxyBUTYnin chloride ER 5 MG TAB.ER.24 PO (08:05)
[2022-09-04] MEDS: dilTIAZem HCL CD 240 MG CAP.ER.DEG PO (08:05)
[2022-09-04] MEDS: guaiFENesin DM 100/10/5 ML 5 ML SYRUP PO ×2 (08:05→20:15)
[2022-09-04] MEDS: Apixaban 2.5 MG TABLET PO ×2 (08:05→20:16)
[2022-09-04] MEDS: Fluticasone Propionate Nasal 16 GM SPRAY 1 SPRAY NOSTRIL-B (08:06)
[2022-09-04] MEDS: Oseltamivir Phosphate 30 MG CAPSULE PO ×2 (08:45→20:17)
[2022-09-04] MEDS: traMADoL HCL 50 MG TABLET PO ×2 (08:46→20:20)
[2022-09-04 11:00] LABS: Glucose, Whole Blood 252 mg/dL (60-115)
--- NOTE | 2022-09-04 11:18 | P.PNIM_ITS ---
Subjective Subjective Date of Service: 09/04/22 Interval History: c/o LUQ/epigastric pain radiating to back still quite weak SCr improved Review of Systems Review of Systems: Yes all other systems are reviewed and are negative Physical Exam Vital Signs: Vital Signs: Last Vital Signs Temp 97.2 F 09/04/22 11:12 Pulse 76 09/04/22 11:12 Resp 20 09/04/22 11:12 BP 111/56 L 09/04/22 11:12 Pulse Ox 95 09/04/22 11:12 O2 Del Method Room Air 09/04/22 11:12 O2 Flow Rate 2 09/04/22 03:35 Oxygen Flow Rate 4 08/23/22 15:06 BMI result Body Mass Index 31.0 Gen: in no acute distress HEENT: sclera anicteric, moist mucus membranes Neck: supple Lungs: clear bilaterally Heart: irregularly irregular, no murmurs Abd: soft, tender LUQ, non-distended Ext: no edema Skin: warm/well-perfused Neuro: alert and oriented x3, no focal findings Psych: appropriate affect Objective Data Active Medications Acetaminophen (Acetaminophen 325 Mg Tablet) 650 mg PO Q6H PRN PRN Reason: Pain, Mild (Pain Scale 1-3) Last Admin: 09/04/22 05:28 Dose: 650 mg Documented By: OSMEL Acetaminophen/Butalbital/Caffeine (Butalb/Acetamin/Caff 50/325/40 Tablet) 1 tab PO Q4H PRN PRN Reason: Headache Last Admin: 08/29/22 03:07 Dose: 1 tab Documented By: OSMEL Apixaban (Apixaban 2.5 Mg Tablet) 2.5 mg PO BID [facility] Last Admin: 09/04/22 08:05 Dose: 2.5 mg Documented By: RADHIKA Benzonatate (Benzonatate 100 Mg Capsule) 200 mg PO TID PRN PRN Reason: cough Last Admin: 08/26/22 22:46 Dose: 200 mg Documented By: NARENDRA Diltiazem HCl (Diltiazem Hcl Cd 240 Mg Cap.Er.Deg) 240 mg PO DAILY [facility]; Protocol Last Admin: 09/04/22 08:05 Dose: 240 mg Documented By: RADHIKA Docusate Sodium (Docusate Sodium 100 Mg Capsule) 100 mg PO DAILY PRN PRN Reason: Constipation Docusate Sodium (Docusate Sodium 100 Mg Capsule) 100 mg PO BEDTIME [facility] Last Admin: 09/03/22 20:40 Dose: 100 mg Documented By: OSMEL Ferrous Sulfate (Ferrous Sulfate 324 Mg Tablet.Dr) 324 mg PO DAILY [facility] Last Admin: 09/04/22 08:05 Dose: 324 mg Documented By: RADHIKA Fluticasone Propionate (Fluticasone Propionate Nasal 16 Gm [place]) 1 spray NOSTRIL-B BID [facility] Last Admin: 09/04/22 08:06 Dose: 1 spray Documented By: RADHIKA Furosemide (Furosemide 20 Mg Tablet) 20 mg PO DAILY [facility]; Protocol Last Admin: 09/01/22 10:24 Dose: 20 mg Documented By: JOSE Glucose (Glucose Gel 15 Gm Gel..Gram.) 15 gm PO Q15M PRN; Protocol PRN Reason: per Hypoglycemia Standing Ord. Guaifenesin/Dextromethorphan (Guaifenesin Dm 100/10/5 Ml 5 Ml Syrup) 5 ml PO TID [facility] Last Admin: 09/04/22 08:05 Dose: 5 ml Documented By: RADHIKA Dextrose (D10) 250 mls @ 750 mls/hr IV Q15M PRN; Protocol PRN Reason: per Hypoglycemia Standing Ord. Sodium Chloride (Ns) 1,000 mls @ 50 mls/hr IVCONT .Q20H [facility] Last Admin: 09/04/22 08:47 Dose: Not Given Documented By: RADHIKA Non-Admin Reason: No Access Insulin Human Lispro (Insulin Lispro 100 Unit/Ml 3 Ml Vial) 0 unit SUBCUT QIDACHS [facility]; Protocol Last Admin: 09/04/22 07:28 Dose: Not Given Documented By: RADHIKA Non-Admin Reason: No Insulin Coverage Ipratropium [place] (Ipratropium [place] 0.5 Mg/2.5 Ml Solution) 0.5 mg INHALE RQID [facility] Last Admin: 09/04/22 08:01 Dose: Not Given Documented By: JOSE Non-Admin Reason: Patient Refused Levalbuterol HCl (Levalbuterol Hcl 1.25 Mg/0.5 Ml Vial.Neb) 1.25 mg INHALE RQID [facility] Last Admin: 09/04/22 08:01 Dose: Not Given Documented By: JOSE Non-Admin Reason: Patient Refused Lisinopril (Lisinopril 5 Mg Tablet) 5 mg PO DAILY [facility]; Protocol Last Admin: 09/03/22 10:00 Dose: 5 mg Documented By: RADHIKA Montelukast Sodium (Montelukast Sodium 10 Mg Tablet) 10 mg PO BEDTIME [facility] Last Admin: 09/03/22 20:40 Dose: 10 mg Documented By: OSMEL Patient Own ( Umeclidinium- Vilanterol [Anoro Ellipta] 62.5-25 Mcg /Actuation Bl 1 each INHALE RDAILY [facility] Last Admin: 09/04/22 08:04 Dose: 1 each Documented By: RADHIKA Omeprazole (Omeprazole 40 Mg Capsule.Dr) 40 mg PO DAILY@0630 [facility] Last Admin: 09/04/22 05:20 Dose: 40 mg Documented By: OSMEL Ondansetron HCl (Ondansetron Hcl 4 Mg/2 Ml Vial) 4 mg IVPUSH Q8H PRN PRN Reason: Nausea and Vomiting Last Admin: 09/03/22 11:55 Dose: 4 mg Documented By: RADHIKA Oseltamivir Phosphate (Oseltamivir Phosphate 30 Mg Capsule) 30 mg PO Q12H [facility] Stop: 09/05/22 09:59 Last Admin: 09/04/22 08:45 Dose: 30 mg Documented By: RADHIKA Oxybutynin Chloride (Oxybutynin Chloride Er 5 Mg Tab.Er.24) 5 mg PO DAILY [facility] Last Admin: 09/04/22 08:05 Dose: 5 mg Documented By: RADHIKA Pharmacy Consult (Consult Rx Perform Med Rec) 1 each MISCELLANE ONCE PRN PRN Reason: Consult order Sodium Chloride (0.9 % Sodium Chloride Flush 3 Ml Syringe) 3 ml IVFLUSH QSHIFT [facility] Last Admin: 09/04/22 08:04 Dose: Not Given Documented By: RADHIKA Non-Admin Reason: No Access Tramadol HCl (Tramadol Hcl 50 Mg Tablet) 50 mg PO BID PRN PRN Reason: severe pain Last Admin: 09/04/22 08:46 Dose: 50 mg Documented By: RADHIKA Labs 09/03/22 07:10 09/04/22 06:26 Labs: Laboratory Results - last 24 hr 09/03/22 09/03/22 09/03/22 07:10 16:28 20:05 Anion Gap Estim Creat Clear Calc Estimated GFR POC Glucose 194 H 194 H Random Glucose Calcium Total Bilirubin 1.3 H Direct Bilirubin 0.4 AST 21 ALT 21 Alkaline Phosphatase 109 Total Creatine Kinase 9 L Total Protein 4.6 L Albumin 2.4 L 09/04/22 09/04/22 09/04/22 06:26 07:26 10:54 Anion Gap 17 Estim Creat Clear Calc 27.2 Estimated GFR 40 POC Glucose 132 H 252 H Random Glucose 130 H Calcium 7.9 L Total Bilirubin Direct Bilirubin AST ALT Alkaline Phosphatase Total Creatine Kinase Total Protein Albumin Assessment and Plan (1) COPD (chronic obstructive pulmonary disease): Status: Acute Assessment and Plan: hospital d#13 81yo F with paroxysmal AF on apixaban, CAD, COPD, HFpEF, hx pseudomonal PNA admitted for COPD exacerbation, aspiration PNA + atrial fibrillation; developed influenza A then CANDIDO # CANDIDO - resolved after holding furosemide + lisinopril and giving a round of IV NS # nodular density at pancreatic tail - MRI/MRCP to assess for pancreatic mass, ordered for tomorrow given pt's symptoms of dull abd pain radiating to back # influenza A - on oseltamivir d#4/5 # COPD exacerbation # aspiration PNA - completed pip-estefany + levofloxacin course - standing/prn nebs # paroxysmal AF - was in RVR; now rate-controlled in 80s-90s - continue diltiazem for rate control; was loaded with digoxin. if develops RVR again, consider maintenance digoxin 125 mcg daily - continue apixaban for anticoagulation # chronic HFpEF - hold furosemide and lisinopril # nondisplaced acute 11th+12th R rib fractures # multiple vertebral compression deformities, age-indeterminate - IS, tramadol # VTE ppx: apixaban # dispo: PT evaluated, recommends STR vs home PT In my clinical judgment, the patient requires continued inpatient hospitalization for the following reasons: CANDIDO (2) Atrial fibrillation with RVR: Status: Acute Time Spent With Patient Time: Total time managing care of this patient today _35___ minutes. Quality Stroke Does the patient have a stroke diagnosis?: No VTE Prior VTE?: No VTE Risk Level:: Medical - moderate - high VTE Device Contraindication: Treatment Not Indicated VTE Drug Contraindication: N/A - Med Ordered
[2022-09-04] MEDS: Insulin Lispro 100 UNIT/ML 3 ML VIAL SUBCUT ×2 (11:48→20:17)
[2022-09-04 16:00] LABS: Glucose, Whole Blood 133 mg/dL (60-115)
[2022-09-04] MEDS: Ipratropium Bromide 0.5 MG/2.5 ML SOLUTION INHALE (18:51)
--- NOTE | 2022-09-04 19:05 | PC.NURSE ---
Pt refusing telemetry, IV access, Medication( insulin,cough medicine, repositioning, ambulation) despite of education given. aware.
[2022-09-04 20:09] LABS: Glucose, Whole Blood 194 mg/dL (60-115)
[2022-09-04] MEDS: Montelukast Sodium 10 MG TABLET PO (20:15)
[2022-09-05] VITALS (7 sets, daily range): BP systolic 128–142; BP diastolic 62–71; PULSE 72–88; RESP 14–18; TEMP 36.6; O2SAT 92–98
[2022-09-05 07:36] LABS: Glucose, Whole Blood 143 mg/dL (60-115)
[2022-09-05 09:11] LABS: Hematocrit 28.1 % (37.0-47.0); Hemoglobin 9.9 g/dl (12.0-16.0); Mean Corpuscular HGB Conc 35.2 g/dl (31.0-35.0); Mean Corpuscular Volume 93.7 fL (80.0-98.0); Mean Platelet Volume 10.8 fL (9.4-12.3); NRBC Pct Auto 0.5 /100WBC (0.0-0.2); Platelet Count 190 X10*3/uL (160-400); Red Cell Distribution Width 18.3 % (11.0-16.0); White Blood Count 7.8 X10*3/uL (4.8-10.8)
[2022-09-05] MEDS: Ferrous Sulfate 324 MG TABLET.DR PO (09:37)
[2022-09-05] MEDS: oxyBUTYnin chloride ER 5 MG TAB.ER.24 PO (09:37)
[2022-09-05] MEDS: Apixaban 2.5 MG TABLET PO ×2 (09:37→20:45)
[2022-09-05] MEDS: dilTIAZem HCL CD 240 MG CAP.ER.DEG PO (09:38)
[2022-09-05] MEDS: traMADoL HCL 50 MG TABLET PO ×2 (09:38→20:45)
[2022-09-05] MEDS: guaiFENesin DM 100/10/5 ML 5 ML SYRUP PO ×2 (09:38→20:45)
[2022-09-05] MEDS: 0.9 % Sodium Chloride Flush 3 ML SYRINGE IVFLUSH ×2 (09:39→17:38)
[2022-09-05 09:58] LABS: Alanine Aminotransferase 23 U/L (0-31); Albumin Level 2.7 g/dL (3.5-5.0); Alkaline Phosphatase 125 U/L (39-117); Anion Gap 17 (12-20); Aspartate Amino Transferase 28 U/L (5-31); Bilirubin Total 0.9 mg/dL (0.0-1.0); Blood Urea Nitrogen 19 mg/dL (9-16); Calcium 8.4 mg/dL (8.4-10.2); Carbon Dioxide 20 mmol/L (22-29); Chloride 104 mmol/L (96-108); Creatinine Clr Calc Pharmacy 31.5; Estimated Glomerular Filt Rate 47; Glucose Random 165 mg/dL (60-115); Lipase 20 U/L (8-78); Potassium 5.3 mmol/L (3.3-5.1); Sodium 136 mmol/L (135-145); Total Protein 5.3 g/dL (6.5-8.0)
--- NOTE | 2022-09-05 10:58 | MHC.CLN ---
F/U PO INTAKE 75-100% DIET RX: 2GM NA CHOPPED-APPROPRIATE PT RECEIVING ENSURE BID TO PROMOTE WOUND HEALING SUPP PROVIDES 700KCLAS, 40G PROTEIN WITH 100% ACCEPTANCE CONTINUE TO MONITOR PO INTAKE AND SUPP ACCEPTANCE
--- NOTE | 2022-09-05 11:13 | MHC.SLORD ---
Speech Language Pathology Order Status: Per RN, pt NPO for a CT scan. No PO trials given.
[2022-09-05 11:34] LABS: Glucose, Whole Blood 218 mg/dL (60-115)
--- NOTE | 2022-09-05 13:37 | MHC.CM.PN ---
per rounds pt may be dcd later todayimm updated to to09/05 pt wants to go home not rehab
--- NOTE | 2022-09-05 14:55 | P.PNIM_ITS ---
Subjective Subjective Date of Service: 09/05/22 Interval History: abd pain now in the RUQ no nausea/vomiting RLE very swollen Review of Systems Review of Systems: Yes all other systems are reviewed and are negative Physical Exam Vital Signs: Vital Signs: Last Vital Signs Temp 97.8 F 09/05/22 11:14 Pulse 74 09/05/22 11:14 Resp 17 09/05/22 11:14 BP 138/63 09/05/22 11:14 Pulse Ox 93 09/05/22 11:14 O2 Del Method Room Air 09/05/22 11:14 O2 Flow Rate 2 09/04/22 03:35 Oxygen Flow Rate 4 08/23/22 15:06 BMI result Body Mass Index 31.0 Gen: in no acute distress HEENT: sclera anicteric, moist mucus membranes Neck: supple Lungs: clear bilaterally Heart: irregularly irregular, no murmurs Abd: soft, tender LUQ, non-distended Ext: no edema Skin: warm/well-perfused Neuro: alert and oriented x3, no focal findings Psych: appropriate affect Objective Data Active Medications Acetaminophen (Acetaminophen 325 Mg Tablet) 650 mg PO Q6H PRN PRN Reason: Pain, Mild (Pain Scale 1-3) Last Admin: 09/04/22 11:53 Dose: 650 mg Documented By: RADHIKA Acetaminophen/Butalbital/Caffeine (Butalb/Acetamin/Caff 50/325/40 Tablet) 1 tab PO Q4H PRN PRN Reason: Headache Last Admin: 08/29/22 03:07 Dose: 1 tab Documented By: OSMEL Apixaban (Apixaban 2.5 Mg Tablet) 2.5 mg PO BID [facility] Last Admin: 09/05/22 09:37 Dose: 2.5 mg Documented By: STUART Benzonatate (Benzonatate 100 Mg Capsule) 200 mg PO TID PRN PRN Reason: cough Last Admin: 08/26/22 22:46 Dose: 200 mg Documented By: NARENDRA Diltiazem HCl (Diltiazem Hcl Cd 240 Mg Cap.Er.Deg) 240 mg PO DAILY [facility]; Protocol Last Admin: 09/05/22 09:38 Dose: 240 mg Documented By: STUART Docusate Sodium (Docusate Sodium 100 Mg Capsule) 100 mg PO DAILY PRN PRN Reason: Constipation Docusate Sodium (Docusate Sodium 100 Mg Capsule) 100 mg PO BEDTIME [facility] Last Admin: 09/04/22 21:11 Dose: Not Given Documented By: SAVANNAH Non-Admin Reason: Patient Refused Ferrous Sulfate (Ferrous Sulfate 324 Mg Tablet.) 324 mg PO DAILY [facility] Last Admin: 09/05/22 09:37 Dose: 324 mg Documented By: STUART Fluticasone Propionate (Fluticasone Propionate Nasal 16 Gm [place]) 1 spray NOSTRIL-B BID [facility] Last Admin: 09/04/22 22:04 Dose: Not Given Documented By: SAVANNAH Non-Admin Reason: Patient Refused Furosemide (Furosemide 20 Mg Tablet) 20 mg PO DAILY [facility]; Protocol Last Admin: 09/01/22 10:24 Dose: 20 mg Documented By: JOSE Glucose (Glucose Gel 15 Gm Gel..Gram.) 15 gm PO Q15M PRN; Protocol PRN Reason: per Hypoglycemia Standing Ord. Guaifenesin/Dextromethorphan (Guaifenesin Dm 100/10/5 Ml 5 Ml Syrup) 5 ml PO TID [facility] Last Admin: 09/05/22 09:38 Dose: 5 ml Documented By: STUART Dextrose (D10) 250 mls @ 750 mls/hr IV Q15M PRN; Protocol PRN Reason: per Hypoglycemia Standing Ord. Insulin Human Lispro (Insulin Lispro 100 Unit/Ml 3 Ml Vial) 0 unit SUBCUT QIDACHS [facility]; Protocol Last Admin: 09/05/22 09:39 Dose: Not Given Documented By: STUART Non-Admin Reason: No Insulin Coverage Ipratropium [place] (Ipratropium [place] 0.5 Mg/2.5 Ml Solution) 0.5 mg INHALE RQID [facility] Last Admin: 09/05/22 14:45 Dose: Not Given Documented By: JOSE Non-Admin Reason: pt off unit Levalbuterol HCl (Levalbuterol Hcl 1.25 Mg/0.5 Ml Vial.Neb) 1.25 mg INHALE RQID [facility] Last Admin: 09/05/22 14:46 Dose: Not Given Documented By: JOSE Non-Admin Reason: pt off unit Lisinopril (Lisinopril 5 Mg Tablet) 5 mg PO DAILY [facility]; Protocol Last Admin: 09/03/22 10:00 Dose: 5 mg Documented By: RADHIKA Montelukast Sodium (Montelukast Sodium 10 Mg Tablet) 10 mg PO BEDTIME [facility] Last Admin: 09/04/22 20:15 Dose: 10 mg Documented By: SAVANNAH Patient Own ( Umeclidinium- Vilanterol [Anoro Ellipta] 62.5-25 Mcg /Actuation Bl 1 each INHALE RDAILY [facility] Last Admin: 09/05/22 09:39 Dose: 1 each Documented By: STUART Omeprazole (Omeprazole 40 Mg Capsule.Dr) 40 mg PO DAILY@0630 [facility] Last Admin: 09/05/22 05:53 Dose: Not Given Documented By: SAVANNAH Non-Admin Reason: Patient Refused Ondansetron HCl (Ondansetron Hcl 4 Mg/2 Ml Vial) 4 mg IVPUSH Q8H PRN PRN Reason: Nausea and Vomiting Last Admin: 09/03/22 11:55 Dose: 4 mg Documented By: RADHIKA Oxybutynin Chloride (Oxybutynin Chloride Er 5 Mg Tab.Er.24) 5 mg PO DAILY [facility] Last Admin: 09/05/22 09:37 Dose: 5 mg Documented By: STUART Pharmacy Consult (Consult Rx Perform Med Rec) 1 each MISCELLANE ONCE PRN PRN Reason: Consult order Sodium Chloride (0.9 % Sodium Chloride Flush 3 Ml Syringe) 3 ml IVFLUSH QSHIFT [facility] Last Admin: 09/05/22 09:39 Dose: 3 ml Documented By: STUART Tramadol HCl (Tramadol Hcl 50 Mg Tablet) 50 mg PO BID PRN PRN Reason: severe pain Last Admin: 09/05/22 09:38 Dose: 50 mg Documented By: STUART Labs 09/05/22 08:58 09/05/22 08:58 Labs: Laboratory Results - last 24 hr 09/04/22 09/04/22 09/05/22 15:43 19:21 07:18 MCV MCH MCHC RDW Plt Count MPV Absolute Nucleated RBC Nucleated RBC % (auto) Anion Gap Estim Creat Clear Calc Estimated GFR POC Glucose 133 H 194 H 143 H Random Glucose Calcium Total Bilirubin AST ALT Alkaline Phosphatase Total Protein Albumin Lipase 09/05/22 09/05/22 09/05/22 08:58 08:58 11:30 MCV 93.7 MCH 33.0 MCHC 35.2 H RDW 18.3 H Plt Count 190 D MPV 10.8 Absolute Nucleated RBC 0.040 H Nucleated RBC % (auto) 0.5 H Anion Gap 17 Estim Creat Clear Calc 31.5 Estimated GFR 47 POC Glucose 218 H Random Glucose 165 H Calcium 8.4 D Total Bilirubin 0.9 AST 28 ALT 23 Alkaline Phosphatase 125 H Total Protein 5.3 L Albumin 2.7 L Lipase 20 Assessment and Plan (1) COPD (chronic obstructive pulmonary disease): Status: Acute Assessment and Plan: hospital d#14 81yo F with paroxysmal AF on apixaban, CAD, COPD, HFpEF, hx pseudomonal PNA admitted for COPD exacerbation, aspiration PNA + atrial fibrillation; developed influenza A then CANDIDO # nodular density at pancreatic tail - per Radiology has been present on prior scans, recommend MRI/MRCP done as outpt - given abd pain, though, will perform CT A/P this time with IV contrast, pancreatic protocol # RUE swelling - Doppler to r/o UEDVT # CANDIDO - resolved after holding furosemide + lisinopril and giving a round of IV NS # influenza A - on oseltamivir d#10/14 # COPD exacerbation, resolved # aspiration PNA, resolved - completed pip-estefany + levofloxacin course - standing/prn nebs # paroxysmal AF - was in RVR; now rate-controlled in 80s-90s - continue diltiazem for rate control; was loaded with digoxin. if develops RVR again, consider maintenance digoxin 125 mcg daily - continue apixaban for anticoagulation # chronic HFpEF - hold furosemide and lisinopril # nondisplaced acute 11th+12th R rib fractures # multiple vertebral compression deformities, age-indeterminate - IS, tramadol # VTE ppx: apixaban # dispo: PT evaluated, recommends STR vs home PT, pt now again refusing STR, plan home with VNA In my clinical judgment, the patient requires continued inpatient hospitalization for the following reasons: abd pain, RUE swelling (2) Atrial fibrillation with RVR: Status: Acute Time Spent With Patient Time: Total time managing care of this patient today __40__ minutes. Quality Stroke Does the patient have a stroke diagnosis?: No VTE Prior VTE?: No VTE Risk Level:: Medical - moderate - high VTE Device Contraindication: Treatment Not Indicated VTE Drug Contraindication: N/A - Med Ordered
[2022-09-05] MEDS: iohexoL 350 MG/ML 100 ML INFUS..BTL 85 ML IV (15:03)
[2022-09-05] MEDS: Fluticasone Propionate Nasal 16 GM SPRAY 1 SPRAY NOSTRIL-B ×2 (15:20→22:25)
[2022-09-05 16:08] LABS: Glucose, Whole Blood 144 mg/dL (60-115)
--- NOTE | 2022-09-05 17:42 | PC.NURSE ---
Pt c/o numbness to R arm, +csm , pulse palpable, swelling noted. Arm elevated, MD notified and ultrasound ordered.
[2022-09-05 19:47] LABS: Glucose, Whole Blood 172 mg/dL (60-115)
[2022-09-05] MEDS: Ipratropium Bromide 0.5 MG/2.5 ML SOLUTION INHALE (19:59)
[2022-09-05] MEDS: Docusate Sodium 100 MG CAPSULE PO (20:45)
[2022-09-05] MEDS: Acetaminophen 325 MG TABLET 650 MG PO (20:45)
[2022-09-05] MEDS: Insulin Lispro 100 UNIT/ML 3 ML VIAL SUBCUT (20:45)
[2022-09-05] MEDS: Melatonin 3 MG TABLET 6 MG PO (22:25)
[2022-09-05] MEDS: Montelukast Sodium 10 MG TABLET PO (22:25)
[2022-09-06] VITALS (9 sets, daily range): BP systolic 123–147; BP diastolic 51–64; PULSE 69–78; RESP 15–18; TEMP 35.9–37.1; O2SAT 91–97
[2022-09-06 07:16] LABS: Glucose, Whole Blood 114 mg/dL (60-115)
[2022-09-06] MEDS: dilTIAZem HCL CD 240 MG CAP.ER.DEG PO (08:29)
[2022-09-06] MEDS: Omeprazole 40 MG CAPSULE.DR PO (08:29)
[2022-09-06] MEDS: Ferrous Sulfate 324 MG TABLET.DR PO (08:29)
[2022-09-06] MEDS: oxyBUTYnin chloride ER 5 MG TAB.ER.24 PO (08:29)
[2022-09-06] MEDS: guaiFENesin DM 100/10/5 ML 5 ML SYRUP PO ×3 (08:29→19:41)
[2022-09-06] MEDS: Apixaban 2.5 MG TABLET PO ×2 (08:29→19:40)
[2022-09-06] MEDS: 0.9 % Sodium Chloride Flush 3 ML SYRINGE IVFLUSH ×3 (08:30→19:41)
[2022-09-06] MEDS: Fluticasone Propionate Nasal 16 GM SPRAY 1 SPRAY NOSTRIL-B (08:31)
[2022-09-06] MEDS: traMADoL HCL 50 MG TABLET PO (08:36)
[2022-09-06 11:38] LABS: Glucose, Whole Blood 192 mg/dL (60-115)
[2022-09-06] MEDS: Ipratropium Bromide 0.5 MG/2.5 ML SOLUTION INHALE (12:03)
[2022-09-06] MEDS: Insulin Lispro 100 UNIT/ML 3 ML VIAL SUBCUT ×2 (12:43→16:45)
--- NOTE | 2022-09-06 14:24 | MHC.SL.DTX ---
Dysphagia Diet modifications: Last documented Solid diet consistencies: Chopped/Advanced (NDD3) Last documented Liquid consistency: Thin Last documented Medication Administration: Changes made to current diet?: Yes Liquid Consistency and Strategies: Liquid Intake Recommendation: Thin Compensatory Strategies for Safe Swallow: Compensatory Strategies for Safe Swallow(b): Sitting Upright (90 deg) Small Bites and Sips Alternate Liquids/Solids Rate of Ingestion Change Solid Food Consistency: Dietary Recommendations: Chopped/Advanced (NDD3) Additional Modifications to Solids: Oral Medication Intake: Whole with Puree Strategies and Precautions to be Taken for Safe Swallow: Sitting Upright (90 deg) Small Bites and Sips Alternate Liquids/Solids Rate of Ingestion Change Supervision While Eating and/Drinking: Intermittent Supervision Foods to Avoid: Difficult to chew solids. Swallowing Recommended Treatments: Compens. Strategy Educat. Level of Impact on: Daily activities: Interpersonal interactions: Education: Employment: Community: Prognosis for Improvement: Fair Recommendation for Speech: Inpatient Speech Therapy Comment: Frequency/Duration: Date Range for Service Req: Timeline to reassess: Additional Comments: Treatment: Pt observed finishing lunch items with timely mastication time and no overt s/s of aspiration. Per RN, she has had no aspiration events. Pt does have persistent complaints with initiating a swallow and with globus sensation after the swallow. Her Dtr is present and informs that her Mother has lost 40lbs in the past year and that she is increasingly anxious about it. SCIENTIFIC INFORMATICS PROJECT LEADER explains that causes may be physiological, psychological or both. I recommended an MBSS on an outpatient basis to assess pharyngeal and esophageal clearance. Bundle Helper Clinican/Clinical Fellow: No Supervisory Statement: I have reviewed and agree with the student/clinical fellow's documentation: N/A Speech Language Pathologist: Dejan Nagel M.A., CCC-SCIENTIFIC INFORMATICS PROJECT LEADER
--- NOTE | 2022-09-06 15:13 | MHC.CM.PN ---
CM spoke with Daughter/HCP/Ximena @ [phone], after MD informed CM that dc is looking like tomorrow (test results still pending). Goal is home with services and CM will continue to follow.
--- NOTE | 2022-09-06 15:53 | P.PNIM_ITS ---
Subjective Subjective Date of Service: 09/06/22 Interval History: complaining of generalized achiness, and pain at site of the chest and abdomen, with coughing, tolerating diet, no shortness of breath, no fevers, no chills, no other acute issues overnight. Review of Systems Review of Systems: Yes all other systems are reviewed and are negative Physical Exam Vital Signs: Vital Signs: Last Vital Signs Temp 98.7 F 09/06/22 15:20 Pulse 73 09/06/22 15:20 Resp 18 09/06/22 15:20 BP 125/56 L 09/06/22 15:20 Pulse Ox 97 09/06/22 15:20 O2 Del Method Room Air 09/06/22 15:20 O2 Flow Rate 2 09/04/22 03:35 Oxygen Flow Rate 4 08/23/22 15:06 BMI result Body Mass Index 31.0 Const: Other: Gen: Awake alert x3 in no acute distress Neck: supple Lungs: clear bilaterally, no wheeze no crackles Heart: irregularly irregular, no murmurs Abd: soft, no epigastric tenderness, tender bilateral lower chest and upper quadrant, non-distended, bowel sounds audible Ext: no edema right upper extremity swelling improving Skin: warm/well- ecchymosis Neuro: alert and oriented x3, no focal findings Psych: appropriate affect Objective Data Active Medications Acetaminophen (Acetaminophen 325 Mg Tablet) 650 mg PO Q6H PRN PRN Reason: Pain, Mild (Pain Scale 1-3) Last Admin: 09/05/22 20:45 Dose: 650 mg Documented By: SAVANNAH Acetaminophen/Butalbital/Caffeine (Butalb/Acetamin/Caff 50/325/40 Tablet) 1 tab PO Q4H PRN PRN Reason: Headache Last Admin: 08/29/22 03:07 Dose: 1 tab Documented By: OSMEL Apixaban (Apixaban 2.5 Mg Tablet) 2.5 mg PO BID ANIBAL Last Admin: 09/06/22 08:29 Dose: 2.5 mg Documented By: ROSA Benzonatate (Benzonatate 100 Mg Capsule) 200 mg PO TID PRN PRN Reason: cough Last Admin: 08/26/22 22:46 Dose: 200 mg Documented By: NARENDRA Diltiazem HCl (Diltiazem Hcl Cd 240 Mg Cap.Er.Deg) 240 mg PO DAILY [facility]; Protocol Last Admin: 09/06/22 08:29 Dose: 240 mg Documented By: ROSA Docusate Sodium (Docusate Sodium 100 Mg Capsule) 100 mg PO DAILY PRN PRN Reason: Constipation Docusate Sodium (Docusate Sodium 100 Mg Capsule) 100 mg PO BEDTIME [facility] Last Admin: 09/05/22 20:45 Dose: 100 mg Documented By: SAVANNAH Ferrous Sulfate (Ferrous Sulfate 324 Mg Tablet.Dr) 324 mg PO DAILY [facility] Last Admin: 09/06/22 08:29 Dose: 324 mg Documented By: ROSA Fluticasone Propionate (Fluticasone Propionate Nasal 16 Gm [place]) 1 spray NOSTRIL-B BID [facility] Last Admin: 09/06/22 08:31 Dose: 1 spray Documented By: ROSA Furosemide (Furosemide 20 Mg Tablet) 20 mg PO DAILY [facility]; Protocol Last Admin: 09/01/22 10:24 Dose: 20 mg Documented By: JOSE Glucose (Glucose Gel 15 Gm Gel..Gram.) 15 gm PO Q15M PRN; Protocol PRN Reason: per Hypoglycemia Standing Ord. Guaifenesin/Dextromethorphan (Guaifenesin Dm 100/10/5 Ml 5 Ml Syrup) 5 ml PO TID [facility] Last Admin: 09/06/22 08:29 Dose: 5 ml Documented By: ROSA Dextrose (D10) 250 mls @ 750 mls/hr IV Q15M PRN; Protocol PRN Reason: per Hypoglycemia Standing Ord. Insulin Human Lispro (Insulin Lispro 100 Unit/Ml 3 Ml Vial) 0 unit SUBCUT QIDACHS [facility]; Protocol Last Admin: 09/06/22 12:43 Dose: 2 unit Documented By: ROSA Ipratropium [place] (Ipratropium [place] 0.5 Mg/2.5 Ml Solution) 0.5 mg INHALE RQID [facility] Last Admin: 09/06/22 12:03 Dose: 0.5 mg Documented By: KAY Levalbuterol HCl (Levalbuterol Hcl 1.25 Mg/0.5 Ml Vial.Neb) 1.25 mg INHALE RQID [facility] Last Admin: 09/06/22 12:03 Dose: 1.25 mg Documented By: KAY Lisinopril (Lisinopril 5 Mg Tablet) 5 mg PO DAILY [facility]; Protocol Last Admin: 09/03/22 10:00 Dose: 5 mg Documented By: RADHIKA Melatonin (Melatonin 3 Mg Tablet) 6 mg PO BEDTIME PRN PRN Reason: insomnia Last Admin: 09/05/22 22:25 Dose: 6 mg Documented By: SAVANNAH Montelukast Sodium (Montelukast Sodium 10 Mg Tablet) 10 mg PO BEDTIME [facility] Last Admin: 09/05/22 22:25 Dose: 10 mg Documented By: SAVANNAH Patient Own ( Umeclidinium- Vilanterol [Anoro Ellipta] 62.5-25 Mcg /Actuation Bl 1 each INHALE RDAILY [facility] Last Admin: 09/06/22 08:30 Dose: 1 each Documented By: ROSA Omeprazole (Omeprazole 40 Mg Capsule.Dr) 40 mg PO DAILY@0630 [facility] Last Admin: 09/06/22 08:29 Dose: 40 mg Documented By: ROSA Ondansetron HCl (Ondansetron Hcl 4 Mg/2 Ml Vial) 4 mg IVPUSH Q8H PRN PRN Reason: Nausea and Vomiting Last Admin: 09/03/22 11:55 Dose: 4 mg Documented By: RADHIKA Oxybutynin Chloride (Oxybutynin Chloride Er 5 Mg Tab.Er.24) 5 mg PO DAILY [facility] Last Admin: 09/06/22 08:29 Dose: 5 mg Documented By: ROSA Pharmacy Consult (Consult Rx Perform Med Rec) 1 each MISCELLANE ONCE PRN PRN Reason: Consult order Sodium Chloride (0.9 % Sodium Chloride Flush 3 Ml Syringe) 3 ml IVFLUSH QSHIFT [facility] Last Admin: 09/06/22 08:30 Dose: 3 ml Documented By: ROSA Tramadol HCl (Tramadol Hcl 50 Mg Tablet) 50 mg PO BID PRN PRN Reason: severe pain Last Admin: 09/06/22 08:36 Dose: 50 mg Documented By: ROSA Labs 09/05/22 08:58 09/05/22 08:58 Labs: Laboratory Results - last 24 hr 09/05/22 09/05/22 09/06/22 15:16 19:40 07:12 POC Glucose 144 H 172 H 114 09/06/22 11:30 POC Glucose 192 H Assessment and Plan (1) COPD (chronic obstructive pulmonary disease): Status: Acute Assessment and Plan: hospital d#14 81yo F with paroxysmal AF on apixaban, CAD, COPD, HFpEF, hx pseudomonal PNA admitted for COPD exacerbation, aspiration PNA + atrial fibrillation; developed influenza A then CANDIDO # nodular density at pancreatic tail - per Radiology has been present on prior scans, recommend MRI/MRCP done as outpt - CT abdomen and pelvis with IV contrast obtained report pending patient abdominal pain seems more like musculoskeletal will follow CT abdomen report # RUE swelling - swelling improving Doppler ultrasound showed no DVT # CANDIDO - resolved after holding furosemide + lisinopril and giving a round of IV NS # influenza A finished course of Tamiflu # COPD exacerbation, and aspiration PNA, resolved - completed pip-estefany + levofloxacin course - continue standing/prn nebs # paroxysmal AF - was in RVR; now rate-controlled in 80s-90s - continue diltiazem for rate control; was loaded with digoxin. if develops RVR again, consider maintenance digoxin 125 mcg daily - continue apixaban for anticoagulation # chronic HFpEF - furosemide and lisinopril on hold no evidence of fluid overload # nondisplaced acute 11th+12th R rib fractures # multiple vertebral compression deformities, age-indeterminate - IS, tramadol # VTE ppx: apixaban # dispo: PT evaluated, recommend home PT, vs short-term rehab , continue physical therapy. In my clinical judgment, the patient requires continued inpatient hospitalization for on going abd pain, waiting for CT abdomen report (2) Atrial fibrillation with RVR: Status: Acute Time Spent With Patient Time: Total time managing care of this patient today ____ minutes. Quality Stroke Does the patient have a stroke diagnosis?: No VTE Prior VTE?: No VTE Risk Level:: Medical - moderate - high VTE Device Contraindication: Treatment Not Indicated VTE Drug Contraindication: N/A - Med Ordered
[2022-09-06 15:55] LABS: Glucose, Whole Blood 212 mg/dL (60-115)
[2022-09-06] MEDS: Docusate Sodium 100 MG CAPSULE PO (19:40)
[2022-09-06] MEDS: Montelukast Sodium 10 MG TABLET PO (19:40)
[2022-09-06] MEDS: Melatonin 3 MG TABLET 6 MG PO (19:40)
[2022-09-06 20:01] LABS: Glucose, Whole Blood 146 mg/dL (60-115)
[2022-09-07] MEDS: Omeprazole 40 MG CAPSULE.DR PO (04:50)
[2022-09-07] MEDS: traMADoL HCL 50 MG TABLET PO (04:50)
[2022-09-07 07:16] LABS: Glucose, Whole Blood 179 mg/dL (60-115)
[2022-09-07 07:36] VITALS: BP 164/80; PULSE 70; RESP 20; TEMP 36.9; O2SAT 96
[2022-09-07] MEDS: guaiFENesin DM 100/10/5 ML 5 ML SYRUP PO ×2 (08:45→14:08)
[2022-09-07] MEDS: dilTIAZem HCL CD 240 MG CAP.ER.DEG PO (08:45)
[2022-09-07] MEDS: Ferrous Sulfate 324 MG TABLET.DR PO (08:45)
[2022-09-07] MEDS: oxyBUTYnin chloride ER 5 MG TAB.ER.24 PO (08:45)
[2022-09-07] MEDS: Apixaban 2.5 MG TABLET PO (08:46)
[2022-09-07] MEDS: 0.9 % Sodium Chloride Flush 3 ML SYRINGE IVFLUSH (08:46)
[2022-09-07] MEDS: Benzonatate 100 MG CAPSULE 200 MG PO (08:48)
[2022-09-07] MEDS: Fluticasone Propionate Nasal 16 GM SPRAY 1 SPRAY NOSTRIL-B (08:50)
[2022-09-07 11:18] LABS: Glucose, Whole Blood 215 mg/dL (60-115)
[2022-09-07 11:34] VITALS: BP 167/65; PULSE 72; RESP 20; TEMP 36.9; O2SAT 96
[2022-09-07] MEDS: Insulin Lispro 100 UNIT/ML 3 ML VIAL SUBCUT (12:28)
--- NOTE | 2022-09-07 13:23 | MHC.CLN ---
F/U PO INTAKE LIMITED DIET RX: 2GM NA CHOPPED-APPROPRIATE PT RECEIVING ENSURE BID TO PROMOTE WOUND HEALING SUPP PROVIDES 700KCALS, 40G PROTEIN WITH 100% ACCEPTANCE CONTINUE TO MONITOR PO INTAKE AND SUPP ACCEPTANCE
[2022-09-07 13:29] VITALS: BP 167/65; PULSE 72; O2SAT 96
[2022-09-07] MEDS: lisinopriL 2.5 MG TABLET PO (14:08)
--- NOTE | 2022-09-07 14:12 | P.DS_ITS ---
DS: Providers Provider Date of Service: 09/07/22 Date of admission: 08/23/22 20:41 Primary care physician: Monica Arciniega MD Consults: 08/23/22 21:22 Consult to Cardiology Routine Consulting Provider: [facility] [place] Cardiovascular Services Reason for consultation: afib rvr Has provider been notified: Yes 08/25/22 13:44 Consult to Pulmonology Stat Consulting Provider: [facility] [place] Pulmonology Services Reason for consultation: pseudomonas pneumonia Has provider been notified: Yes DS: Diagnosis Discharge Diagnosis (1) COPD (chronic obstructive pulmonary disease): Status: Acute (2) Atrial fibrillation with RVR: Status: Acute DS: Summary Hospital Course Hospital Course: Hospital course: Date of Service: 08/23/22 Attending physician on admission: Caridad Rodriguez Chief Complaint: sob 81-year-old female with COPD, history of pseudomonal pneumonia, coronary artery disease, paroxysmal atrial fibrillation anticoagulated with Eliquis, congestive heart failure presented to the ED earlier today for evaluation of increased coughing and shortness of breath with increased demand for oxygen.? She is not oxygen dependent at home but has been satting in the 80s on room air. She has a chronic productive cough, unchanged from baseline. Continues following with pulmonology for ongoing management of pseudomonal pneumonia and uses inhaled tobramycin for 28 days at a time, having completed most recent cycle 2 days ago.? She is reporting generalized weakness and fatigue and feels her legs may be swollen. Her daughter reports she stopped her mother's eliquis after it was resume by hematology 5 days ago because she thought it was contirbuting to her symptoms.? On arrival, patient noted to be desatting into the 80s with movement and talking and was placed on nasal cannula but has since been weaned from this.? Was tachycardic to 118 with EKG showing atrial flutter.? There is a leukocytosis of 14.3.? Stable normocytic anemia with H/H of 10.4/30.8%, though has slightly dropped from 12.3/37.2% last month.? Creatinine 1.45, BUN 38.? Electrolyte levels normal.? Troponins flat.? BNP consistent with baseline at 164.? Urinalysis unremarkable.? Negative for COVID-19, influenza, RSV.? Head CT is without any acute intracranial abnormality but does show volume loss and mild chronic white matter microangiopathy.? No acute intracranial hemorrhage or territorial infarction though the possibility of focal acute ischemic process cannot be ruled out on the basis of this study.? CT chest showing minimally displaced posterior right 11th rib fracture and possible nondisplaced posterior right 12th rib fracture as well as multiple vertebral body compression deformities which are age indeterminate.? There is an incidentally found 2.1 cm nodular density at the pancreatic tail not previously demonstrated on imaging.? There is also bronchiectases of the lower lobes bilaterally with bronchial filling defects particularly in the left lower lobe with adjacent opacities, consider aspriation. Hospital course 81yo F with paroxysmal AF on apixaban, CAD, COPD, HFpEF, hx pseudomonal PNA admitted for COPD exacerbation, aspiration PNA + atrial fibrillation; developed influenza A then CANDIDO # admitted with COPD exacerbation,? and aspiration PNA, completed pip-estefany + levofloxacin course, continue inhalers, finger oximetry stable on room air, if patient noted to have hypoxia, recommend 1-2 L of oxygen, # paroxysmal AF with rapid ventricular rate treated with diltiazem and loading dose of digoxin now rate controlled 80 to 90s continue Cardizem and apixaban # Pancreatic tail lesion noted on CT abdomen recommend outpatient follow-up in 3-[address] abdomen with and without contrast for stability # RUE swelling likely due to infiltration right upper extremity Doppler ultrasound showed no DVT # influenza A finished course of Tamiflu # CANDIDO- resolved after holding furosemide + lisinopril and giving a round of IV NS, will resume lisinopril due to elevated blood pressure continue to hold Lasix for 1 more week due to poor by mouth intake. # chronic HFpEF - no acute exacerbation continue to hold furosemide as above, continue lisinopril 2.5mg. # nondisplaced acute 11th+12th R rib fractures / multiple vertebral compression deformities, age-indeterminate - continue tramadol, encourage incentive spirometry # generalize weakness/anxiety/underlying vascular dementia continue physical therapy. Time Spent with Patient Time attestation: Total time managing care of this patient today ____ minutes. Discharge coordination time: Greater than 30 minutes Quality: Safe Use of Opioids Does Pt have an Active Cancer Diagnosis on the Problem List?: No Quality: Stroke Does the patient have a stroke diagnosis?: No Physical Exam Vital Signs: Vital Signs: Last Vital Signs Temp 98.4 F 09/07/22 11:34 Pulse 72 09/07/22 13:29 Resp 20 09/07/22 11:34 BP 167/65 H 09/07/22 13:29 Pulse Ox 96 09/07/22 13:29 O2 Del Method Room Air 09/07/22 11:34 O2 Flow Rate 2 09/04/22 03:35 Oxygen Flow Rate 4 08/23/22 15:06 BMI result Body Mass Index 31.0 Const: Other: Gen:? Elderly female, anxious, frail, Awake alert x3 in no acute distress Neck: supple, no JVD Lungs: clear bilaterally, no wheeze no crackles Heart: irregularly irregular, no murmurs Abd: soft,? no epigastric tenderness,?non-distended, bowel sounds audible Ext: no lower extremity pitting edema, right upper extremity swelling improving Skin: warm/well- ecchymosis Neuro: alert and oriented x3, no focal findings Psych: Anxious, appropriate affect DS: Data Data Completed and Pending Completed studies during hospitalization [Text1]: Procedures Transfusion of Nonautologous Red Blood Cells into Peripheral Vein, Percutaneous Approach (04/06/22) Labs on day of discharge: Laboratory Results - last 24 hr 09/06/22 09/06/22 09/07/22 15:14 19:08 07:12 POC Glucose 212 H 146 H 179 H 09/07/22 11:14 POC Glucose 215 H Discharge Plan Discharge Anticipated Discharge Date/Time: 09/07/22 13:53 Patient Disposition: Xfer SNF Discharge Diagnosis: Acute COPD exacerbation with aspiration pneumonia Paroxysmal atrial fibrillation with RVR Pancreatic cyst recommend follow-up abd scan in 3-6 months Referrals: [facility] [Outside] - 1 Week Monica Arciniega MD [Primary Care Provider] - 1 Week Discharge Medications: Continued tobramycin in 0.225 % NaCl [John] 300 mg/5 mL solution for nebulization 300 mg inhalation BID 28 Days Qty: 280 6RF Rx Instructions: Take for 28 days as prescribed and then 28 days off ferrous sulfate 325 mg (65 mg iron) tablet 325 mg PO DAILY 0RF lisinopril 2.5 mg tablet 1 tab PO DAILY diltiazem HCl 240 mg Capsule,Extended Release 24hr 240 mg PO DAILY Qty: 30 0RF Protocol: Hold for SBP/HR < HOLD for SBP < : 90 HOLD for HR < : 60 Rx Instructions: replaces prior dose of 120 mg daily Anoro Ellipta 62.5-25 mcg/actuation blister with device 1 ea inhalation DAILY Eliquis 2.5 mg tablet 2.5 mg PO BID albuterol sulfate [Ventolin HFA] 90 mcg/actuation HFA aerosol inhaler 2 puff INHALATION Q4H PRN (Reason: Shortness Of Breath) docusate sodium 100 mg capsule 100 mg PO BEDTIME fluticasone propionate 50 mcg/actuation spray,suspension 1 spray intranasal BID montelukast 10 mg tablet 10 mg PO BEDTIME nitroglycerin 0.3 mg tablet, sublingual 0.3 mg sublingual Q5M PRN (Reason: Chest Pain) omeprazole 40 mg capsule,delayed release(DR/EC) 40 mg PO DAILY oxybutynin chloride 5 mg tablet extended release 24hr 5 mg PO DAILY tramadol 50 mg tablet 50 mg PO BID (DME) nebulizers Kit See Rx Instructions .ROUTE Rx Instructions: As directed levalbuterol HCl [Xopenex] 1.25 mg/3 mL solution for nebulization 1.25 mg inhalation QID 30 Days Qty: 360 11RF Held furosemide 20 mg tablet 1 tab PO DAILY Hold Instructions: Resume on 09/14/22. Discontinued prednisone 10 mg tablet 10 mg PO BID Discharge Orders: Discharge Order (Routine); Ordered 09/07/22 Ordered By: Keith Bai Diet: Low salt diet Activity on Discharge: As tolerated Stand Alone Forms: Patient Portal Discharge page Care Plan Goals: Finish treatment for aspiration pneumonia, has underlying COPD continue home inhalers, use po steroid if noted to have worsening shortness of breath Use oxygen if noted to have finger oximetry below 90, at present finger oximetry 94% on room air Generalized weakness due to recent influenza a infection and pneumonia, has low tolerance to functional mobility need physical therapy Resume Lasix in 1 week or sooner if noted to have shortness of breath. follow bmp in 1 week Health Concerns: Mild anxiety/ vascular dementia Plan of Treatment: Outpatient follow-up with primary care physician, [facility] Cardiology and pulmonology with Dr. Aldana call for appointment Assessment: As above
--- NOTE | 2022-09-07 14:22 | MHC.CM.PN ---
PT is now recommending STR. Patient has been medically cleared for dc today to STR. Patient will dc to [facility] today at 4:30 PM, via [facility]. Patient and her Daughter/HCP/Ximena @ [phone] are aware of and in agreement with the dc plan. Last IMM addressed on 09/05/2022.
[2022-09-07 14:39] LABS: COVID-19 Test Negative (Negative); IDNOW Serial# 9DB6401D
[2022-09-07 15:36] VITALS: BP 158/70; PULSE 73; RESP 13; TEMP 36.7; O2SAT 95
[2022-09-07 15:59] LABS: Glucose, Whole Blood 157 mg/dL (60-115)
== END 2022-09-07 16:45 | disposition skilled nursing facility (03) | DRG 308 ==
LOC: HO.ED 19:26 → HO.EDOVER 21:09 → HO.IMC 08-24 16:57
PROVIDERS: Family Medicine; Hospitalist; Admitting Provider Physician Assistant; Emergency Provider Emergency Medicine Emergency Medical Services; PCP Internal Medicine; Visit Provider Hospitalist
DX: I48.0 Paroxysmal atrial fibrillation (principal); J69.0 Pneumonitis due to inhalation of food and vomit; S22.41XA Multiple fractures of ribs, right side, initial encounter for closed fracture; J98.11 Atelectasis; J47.1 Bronchiectasis with (acute) exacerbation; I50.22 Chronic systolic (congestive) heart failure; N17.9 Acute kidney failure, unspecified; T82.7XXA Infection and inflammatory reaction due to other cardiac and vascular devices, implants and grafts, initial encounter; K86.9 Disease of pancreas, unspecified; I25.10 Atherosclerotic heart disease of native coronary artery without angina pectoris; D64.9 Anemia, unspecified; X58.XXXA Exposure to other specified factors, initial encounter; J10.1 Influenza due to other identified influenza virus with other respiratory manifestations; Z20.822 Contact with and (suspected) exposure to COVID-19; Y74.1 Therapeutic (nonsurgical) and rehabilitative general hospital and personal-use devices associated with adverse incidents; I11.0 Hypertensive heart disease with heart failure; Z95.1 Presence of aortocoronary bypass graft; Z87.891 Personal history of nicotine dependence; Z88.8 Allergy status to other drugs, medicaments and biological substances; Z79.01 Long term (current) use of anticoagulants; Z79.51 Long term (current) use of inhaled steroids; Z79.899 Other long term (current) drug therapy
CPT/HCPCS: 0241U; 36415; 70450; 71045; 71250; 74176; 74178; 80048; 80053; 80076; 81001; 82140; 82550; 82947; 83605; 83690; 83880; 84145; 84484; 85025; 85027; 87040; 87633; 87635; 92526; 92610; 93005; 93971; 94640; 96365; 96375; 96376; 97110; 97116; 97162; 97530; 99285; J0692; J1160; J1200; J2405; J2543; J2930; Q9967

== ENCOUNTER 2022-09-17 17:42 | Inpatient (IN) | payer OTHER, SELFPAY ==
--- NOTE | 2022-09-17 | ECG_ITS ---
Test Reason : ABD PAIN Blood Pressure : / mmHG Vent. Rate : 074 BPM Atrial Rate : 296 BPM P-R Int : 000 ms QRS Dur : 088 ms QT Int : 422 ms P-R-T Axes : 117 010 084 degrees QTc Int : 468 ms Atrial flutter with 4:1 A-V conduction Possible Anterior infarct , age undetermined Abnormal ECG When compared with ECG of 23-AUG-2022 16:40, Atrial flutter has replaced Atrial fibrillation Vent. rate has decreased BY 48 BPM Nonspecific T wave abnormality no longer evident in Inferior leads Nonspecific T wave abnormality has replaced inverted T waves in Lateral leads Referred By: Generic ED Physician Electronically Signed By:Swapnil Bassett
--- NOTE | ~2022-09-17 | CT_ITS ---
EXAMINATION: CT ABDOMEN AND PELVIS WITH CONTRAST CLINICAL INFORMATION: Pain and abdominal distention COMPARISON: 09/05/2022 TECHNIQUE: Multidetector volumetric images were obtained from the superior aspect of the liver through the pubic symphysis following administration 85 mL of Omnipaque 350 intravenous contrast. Sagittal and coronal reformatted images were obtained on the technologist's workstation. Oral contrast: No This CT examination was performed using dose optimization techniques as appropriate, variously including the following: *Automated exposure control *Adjustment of mA and/or kV according to patient size (this includes techniques or standardized protocols for targeted exams where dose is matched to indication/reason for exam; i.e. extremities or head) *Use of iterative reconstruction technique DLP: 875 mGy-cm FINDINGS: LUNG BASES: The visualized lung bases are unremarkable. LIVER, GALLBLADDER, AND BILIARY TREE: There is intrahepatic biliary dilatation. Gallbladder is surgically absent. CBD is dilated without evidence of fluid in the PANCREAS: Pancreas is atrophic. SPLEEN: Unremarkable. ADRENAL GLANDS: Unremarkable. KIDNEYS AND URETERS: The kidneys are normal in size, shape, and attenuation. No hydronephrosis, hydroureter, or calculi seen. No perinephric stranding. BLADDER: Unremarkable. GASTROINTESTINAL TRACT: Loops of small bowel aren't dilated consistent with small bowel obstruction. Zone of transition is identified in the umbilicus where lower pole of the bowel is incarcerated. Colonic loops are intact. ABDOMINAL WALL: There is large umbilical hernia with herniation of dilated colonic loop identified. LYMPH NODES: Normal. VASCULAR: Unremarkable. PELVIC VISCERA: Unremarkable. OSSEOUS STRUCTURES: There are multilevel degenerative changes in lumbar spine CT/CT abdomen pelvis w IV con IMPRESSION: 1. High-grade small bowel obstruction with transition point in the umbilicus. 2. Large umbilical hernia with herniation of dilated colonic loop. 3. Intrahepatic biliary dilatation and dilatation of CBD status post cholecystectomy. Fleischner guidelines were followed.
[2022-09-17 17:58] VITALS: BP 133/51; BP 134/76; PULSE 74; PULSE 76; RESP 20; TEMP 36.4; O2SAT 100; O2SAT 94; BMI 29.8
[2022-09-17 18:20] LABS: Basophils Absolute Auto 0.1 X10*3/uL (0.0-0.2); Basophils Percent Auto 0.3 % (0-2); Hematocrit 32.8 % (37.0-47.0); Imm Gran Abs Auto 0.21 X10*3/uL (0.00-0.03); Imm Gran Pct Auto 1.4 % (0.0-0.4); Lymphocytes Absolute Auto 0.5 X10*3/uL (1.2-4.9); Lymphocytes Percent Auto 3.3 % (20-40); MANUAL DIFF FLAG NO; Mean Corpuscular HGB Conc 33.5 g/dl (31.0-35.0); Mean Corpuscular Hemoglobin 32.3 pg (27.0-33.0); Mean Corpuscular Volume 96.2 fL (80.0-98.0); Mean Platelet Volume 10.2 fL (9.4-12.3); Monocytes Absolute Auto 0.6 X10*3/uL (0.1-1.2); Monocytes Percent Auto 4.1 % (2-11); Neutrophils Absolute Auto 13.5 x10*3/uL (2.0-8.3); Neutrophils Percent Auto 90.9 % (45-73); Platelet Count 335 X10*3/uL (160-400); Red Blood Count 3.41 X10*6/uL (4.20-5.50); Red Cell Distribution Width 17.9 % (11.0-16.0); SCAN SMEAR FLAG 1; White Blood Count 14.9 X10*3/uL (4.8-10.8)
--- NOTE | 2022-09-17 19:00 | MHC.EDTECH ---
PT CAME IN VIA EMS ,AND WAS COVERED IN VOMIT ,CARE GIVEN ,EKG DONE AND WAS READ BY PROVIDER ,RSV COVID SWAB COLLECTED AND SENT TO LAB ,BLADDER SCAN DONE ,RN AWARE OF BLADDER SCAN RESULT .
[2022-09-17 19:12] LABS: Alanine Aminotransferase 37 U/L (0-31); Albumin Level 3.2 g/dL (3.5-5.0); Alkaline Phosphatase 174 U/L (39-117); Anion Gap 14 (12-20); Aspartate Amino Transferase 45 U/L (5-31); Bilirubin Total 1.3 mg/dL (0.0-1.0); Blood Urea Nitrogen 16 mg/dL (9-16); Calcium 8.6 mg/dL (8.4-10.2); Carbon Dioxide 28 mmol/L (22-29); Chloride 98 mmol/L (96-108); Creatinine Clr Calc Pharmacy 32.5; Estimated Glomerular Filt Rate 48; Glucose Random 250 mg/dL (60-115); Lipase 17 U/L (8-78); Magnesium 1.8 mg/dL (1.6-2.6); Potassium 4.4 mmol/L (3.3-5.1); Sodium 136 mmol/L (135-145); Total Protein 5.9 g/dL (6.5-8.0)
[2022-09-17 19:16] LABS: Influenza A PCR NEGATIVE (Negative); Influenza B PCR NEGATIVE (Negative); Resp Syncy Virus RNA Qual PCR NEGATIVE (Negative); SARS COV2 PCR INHOUSE NEGATIVE (Negative)
[2022-09-17 20:00] VITALS: BP 136/64; PULSE 73; RESP 16; TEMP 36.8; O2SAT 99
[2022-09-17] MEDS: Morphine Sulfate 4 MG/ML CARTRIDGE IVPUSH (20:34)
[2022-09-17] MEDS: 0.9 % Sodium Chloride 1,000 ML 999 ML IV (20:34)
[2022-09-17] MEDS: ondansetron HCL 4 MG/2 ML VIAL IVPUSH (20:34)
--- NOTE | 2022-09-17 20:39 | MHC.EDTECH ---
PT 1999 ROUNDING DONE ,VITALS SIGN TAKEN ,TYPE AND SCREEN COLLECTED AND SENT TO LAB ,PT DAUGHTER AT BED SIDE .
--- NOTE | 2022-09-17 21:09 | ED_ITS ---
HPI - General Adult General Chief complaint: Abdominal Pain Stated complaint: ABD PAIN W/VOMITING, FROM SNF PER EMS Time Seen by Provider: 09/17/22 20:10 Source: patient, family, EMS and RN notes reviewed Mode of arrival: EMS Limitations: other (Poor historian) History of Present Illness HPI narrative: 81-year-old female past medical history significant for COPD, AFib on Eliquis, heart failure, periumbilical hernia presents for evaluation abdominal pain Patient presents from a skilled nurse facility. She reports abdominal pain, nausea, vomiting x3 days. Denies any fevers or chills. She states that she had a normal bowel movement earlier this morning but she does not think she is passing gas currently She denies any black or bloody vomitus She rates her pain as 10/10 and constant The patient's daughter showed up after my initial evaluation today to the patient's abdominal pain and vomiting she started today. She does not have much other history to add except patient also has history of coronary artery disease with quadruple bypass 10 years ago The patient also is status post cholecystectomy Related Data Home Medications Medication Instructions Recorded Confirmed docusate sodium 100 mg capsule 100 mg PO BEDTIME 03/22/22 09/17/22 fluticasone propionate 50 1 spray intranasal BID 03/22/22 09/17/22 mcg/actuation nasal spray,suspension montelukast 10 mg tablet 10 mg PO BEDTIME 03/22/22 09/17/22 nebulizers 03/22/22 07/04/22 nitroglycerin 0.3 mg sublingual 0.3 mg sublingual Q5M PRN Chest 03/22/22 tablet Pain omeprazole 40 mg capsule,delayed 40 mg PO DAILY 03/22/22 09/17/22 release oxybutynin chloride 5 mg 5 mg PO DAILY 03/22/22 09/17/22 tablet,extended release 24 hr tramadol 50 mg tablet 50 mg PO BID 03/22/22 09/17/22 furosemide 20 mg tablet 1 tab PO DAILY 04/06/22 09/17/22 lisinopril 2.5 mg tablet 1 tab PO DAILY 04/06/22 09/17/22 umeclidinium 62.5 mcg-vilanterol 1 ea inhalation DAILY 05/24/22 09/17/22 25 mcg/actuation powdr for inhalation (Anoro Ellipta) apixaban 2.5 mg tablet (Eliquis) 2.5 mg PO BID 08/04/22 09/17/22 Ventolin inhalation BID 09/17/22 levalbuterol HCl 1.25 mg/3 mL mg inhalation 09/17/22 solution for nebulization Previous Rx's Medication Instructions Recorded levalbuterol HCl 1.25 mg/3 mL 1.25 mg (3 mL) inhalation QID 30 03/22/22 solution for nebulization (Xopenex) days #360 mL tobramycin 300 mg/5 mL in 0.225 % 300 mg (5 mL) inhalation BID 28 03/25/22 sodium chloride for nebulization days #280 mL (John) diltiazem HCl 240 mg 240 mg PO DAILY #30 caps 04/14/22 capsule,extended release 24 hr ferrous sulfate 325 mg (65 mg 325 mg PO DAILY 08/29/22 iron) tablet Allergies Allergy/AdvReac Type Severity Reaction Status Date / Time carvedilol Allergy Shortness Verified 09/17/22 22:26 of Breath sertraline [From Zoloft] Allergy Shortness Verified 09/17/22 22:26 of Breath spironolactone Allergy Shortness Verified 09/17/22 22:26 of Breath Review of Systems Constitutional: Constitutional: Reports as per HPI, Denies chills, Denies fatigue, Denies fever(s) and Denies headache(s) ENT: Denies headache(s) Cardiovascular: Cardiovascular: Denies chest pain and Denies dyspnea Respiratory: Respiratory: Denies cough and Denies dyspnea Gastrointestinal: Gastrointestinal: Reports abdominal pain, Reports belching, Reports bloating, Reports constipation, Reports nausea and Reports vomiting Genitourinary: Genitourinary: Denies dysuria Neurologic: Denies headache(s) and Denies focal weakness Endocrine: Endocrine: Denies fatigue [facility] Past Medical History Medical History (Updated 09/18/22 @ 01:22 by Jacobo Manjarrez) A-fib Acute encephalopathy Acute hypokalemia Acute respiratory failure with hypoxia Anemia Anemia Aspiration pneumonia Atrial fibrillation with RVR Bronchiectasis CAD (coronary artery disease) Chronic dyspnea COPD (chronic obstructive pulmonary disease) COPD (chronic obstructive pulmonary disease) GI bleed Paroxysmal A-fib Pseudomonal pneumonia Pseudomonas respiratory infection Pulmonary nodules Surgical History History of cholecystectomy History of hip replacement History of knee replacement History of quadruple bypass Family History Family History Other No family history of cancer Social History Social History Household Members: Family Housing: House Are you a primary home care and home health aides teacher to a significant other at home: No Do you presently have visiting nurse or other home services: Yes Alcohol intake: former Patient Tobacco Use Status: Former Tobacco user Tobacco use type: Cigarette Smoked in Last 30 Days: No Use of substances other than those prescribed or required for medical reasons: No Advance Directives: No Advance Directives Information Provided: No Nutrition Risks: No Nutritional Risk service: No Current occupational status: retired Physical Exam ED Vital Signs: Vital Signs - 24 hr 09/17/22 17:58 09/17/22 20:00 09/17/22 21:53 Temperature 97.6 F 98.2 F 98.2 F Pulse Rate 74 73 89 Respiratory Rate 20 16 16 Blood Pressure 133/51 L 136/64 147/51 H Pulse Oximetry 100 99 93 Oxygen Delivery Method Room Air Nasal Cannula Room Air Oxygen Flow Rate 3 BMI result Body Mass Index 29.8 Const General: healthy appearing, comfortable, no acute distress, alert and awake Nutritional Appearance: well nourished Orientation/consciousness: patient oriented x3 HENMT Head: Yes normocephalic and Yes atraumatic Throat: Yes posterior oropharynx normal Eyes Eyelids: Yes eyelids normal Conjunctivae: conjunctivae normal Sclerae: sclerae normal Corneas: corneas normal Pupils: Equal, round and reactive pupils present EOM: EOMs intact bilaterally Neck Neck: Yes full ROM Resp Effort & Inspection: normal respiratory effort, able to speak in complete sentences, no audible wheezes and not labored Auscultation: clear to auscultation bilaterally Cardio Rate: regular rate Rhythm: regular rhythm GI Inspection: Yes Abdominal wall edema and Yes distended Palpation (GI): Firmness to palpation present (GI) (Diffuse), Tenderness to palpation present (GI) (Diffuse tenderness with guarding) in the epigastrum, in the LLQ, in the RLQ, in the LUQ and in the RUQ and Guarding due to palpation present (GI) Auscultation: Hyperactive bowel sounds present Skin General skin exam: no rashes or lesions noted and elasticity normal Neuro General: patient oriented x3 Cranial nerves: Yes CN's II-XII intact bilaterally, Yes Equal, round and reactive pupils present and Yes Bilaterally intact EOM present Cognition (Neuro): normal cognition Extrem Other: Moving all extremities well without any obvious deformities Course Reevaluation(s) Reevaluation #1: Is CT scan significant for high-grade bowel obstruction. Discussed with general surgery, Dr. Sullivan who admitted the patient Time: 01:21 Medications Administered Generic Name Dose Route Start Last Admin Trade Name Freq PRN Reason Stop Dose Admin Dextrose/Sodium Chloride 1,000 mls @ 100 mls/hr 09/17/22 22:00 09/17/22 22:27 D5ns IVCONT 100 mls/hr .Q10H ANIABL Administration Sodium Chloride 3 ml 09/18/22 00:00 09/18/22 00:57 0.9 % Sodium Chloride Flush 3 Ml Syringe IVFLUSH Not Given QSHIFT ANIBAL Discontinued Medications Generic Name Dose Route Start Last Admin Trade Name Freq PRN Reason Stop Dose Admin Sodium Chloride 1,000 mls @ 999 mls/hr 09/17/22 20:15 09/17/22 21:35 Ns IV 09/17/22 21:15 Infused .Q1H1M ANIBAL Infusion Iohexol 100 ml 09/17/22 21:33 09/17/22 21:33 Iohexol 350 Mg/Ml 100 Ml Infus..Btl IV 09/17/22 21:34 85 ml ONCE ONE Administration Morphine Sulfate 4 mg 09/17/22 20:15 09/17/22 20:34 Morphine Sulfate 4 Mg/Ml Cartridge IVPUSH 09/17/22 20:16 4 mg ONCE ONE Administration Protocol Ondansetron HCl 4 mg 09/17/22 20:15 09/17/22 20:34 Ondansetron Hcl 4 Mg/2 Ml Vial IVPUSH 09/17/22 20:16 4 mg ONCE ONE Administration Medical Decision Making Medical Decision Making [facility] Narrative: 81-year-old female presents for evaluation of abdominal pain vomiting. Her symptoms started today per her daughter who visits her daily. The patient abdomen is quite distended, she is diffusely tender with guarding. Have a fairly high suspicion for small bowel obstruction at this time. Will get a CT scan of the abdomen pelvis with IV and oral contrast. Patient's labs are significant for mild transaminitis, hyperglycemia. Id her lipase is within normal limits electrolytes are within normal limits. [place] [id number] with a left shift. Her lactic acid is normal Differential Diagnosis Small-bowel obstruction Gastritis Constipation Pancreatitis Acute appendicitis Lab Data MDM Lab Attestation statement: I reviewed the patient's lab results. 09/17/22 18:14 09/17/22 18:14 Labs: Lab Results 09/17/22 09/17/22 09/17/22 Range/Units 18:14 18:14 18:29 WBC 14.9 H (4.8-10.8) X10*3/uL RBC 3.41 L (4.20-5.50) X10*6/uL Hgb 11.0 L (12.0-16.0) g/dl Hct 32.8 L (37.0-47.0) % MCV 96.2 (80.0-98.0) fL MCH 32.3 (27.0-33.0) pg MCHC 33.5 (31.0-35.0) g/dl RDW 17.9 H (11.0-16.0) % Plt Count 335 D (160-400) X10*3/uL MPV 10.2 (9.4-12.3) fL Immature Gran % (Auto) 1.4 H (0.0-0.4) % Neut % (Auto) 90.9 H (45-73) % Lymph % (Auto) 3.3 L (20-40) % Ness % (Auto) 4.1 (2-11) % Eos % (Auto) 0.0 (0-4) % Baso % (Auto) 0.3 (0-2) % Lymph # (Auto) 0.5 L (1.2-4.9) X10*3/uL Ness # (Auto) 0.6 (0.1-1.2) X10*3/uL Eos # (Auto) 0.0 (0.0-0.4) X10*3/uL Baso # (Auto) 0.1 (0.0-0.2) X10*3/uL Abs Immat Gran (auto) 0.21 H (0.00-0.03) X10*3/uL Absolute Neuts (auto) 13.5 H (2.0-8.3) x10*3/uL Absolute Nucleated RBC 0.000 (0.0-0.012) X10*3/uL Nucleated RBC % (auto) 0.0 (0.0-0.2) /100WBC PT (10.0-13.1) SEC INR (0.9-1.1) APTT (26.0-36.4) SEC Sodium 136 (135-145) mmol/L Potassium 4.4 (3.3-5.1) mmol/L Chloride 98 (96-108) mmol/L Carbon Dioxide 28 (22-29) mmol/L Anion Gap 14 (12-20) BUN 16 (9-16) mg/dL Creatinine 1.09 (0.5-1.4) mg/dL Estim Creat Clear Calc 32.5 Estimated GFR 48 Random Glucose 250 H (60-115) mg/dL Lactic Acid (0.5-2.0) mmol/L Calcium 8.6 (8.4-10.2) mg/dL Magnesium 1.8 (1.6-2.6) mg/dL Total Bilirubin 1.3 H (0.0-1.0) mg/dL AST 45 H (5-31) U/L ALT 37 H (0-31) U/L Alkaline Phosphatase 174 H (39-117) U/L Total Protein 5.9 L (6.5-8.0) g/dL Albumin 3.2 L (3.5-5.0) g/dL Lipase 17 (8-78) U/L Influenza Type A (PCR) NEGATIVE (Negative) Influenza Type B (PCR) NEGATIVE (Negative) RSV RNA Qual (PCR) NEGATIVE (Negative) SARS-CoV-2 RNA (RT-PCR) NEGATIVE (Negative) Blood Type Antibody Screen 09/17/22 09/17/22 09/17/22 Range/Units 20:28 20:35 21:49 WBC (4.8-10.8) X10*3/uL RBC (4.20-5.50) X10*6/uL Hgb (12.0-16.0) g/dl Hct (37.0-47.0) % MCV (80.0-98.0) fL MCH (27.0-33.0) pg MCHC (31.0-35.0) g/dl RDW (11.0-16.0) % Plt Count (160-400) X10*3/uL MPV (9.4-12.3) fL Immature Gran % (Auto) (0.0-0.4) % Neut % (Auto) (45-73) % Lymph % (Auto) (20-40) % Ness % (Auto) (2-11) % Eos % (Auto) (0-4) % Baso % (Auto) (0-2) % Lymph # (Auto) (1.2-4.9) X10*3/uL Ness # (Auto) (0.1-1.2) X10*3/uL Eos # (Auto) (0.0-0.4) X10*3/uL Baso # (Auto) (0.0-0.2) X10*3/uL Abs Immat Gran (auto) (0.00-0.03) X10*3/uL Absolute Neuts (auto) (2.0-8.3) x10*3/uL Absolute Nucleated RBC (0.0-0.012) X10*3/uL Nucleated RBC % (auto) (0.0-0.2) /100WBC PT 17.0 H (10.0-13.1) SEC INR 1.5 H (0.9-1.1) APTT 34.5 (26.0-36.4) SEC Sodium (135-145) mmol/L Potassium (3.3-5.1) mmol/L Chloride (96-108) mmol/L Carbon Dioxide (22-29) mmol/L Anion Gap (12-20) BUN (9-16) mg/dL Creatinine (0.5-1.4) mg/dL Estim Creat Clear Calc Estimated GFR Random Glucose (60-115) mg/dL Lactic Acid 2.0 (0.5-2.0) mmol/L Calcium (8.4-10.2) mg/dL Magnesium (1.6-2.6) mg/dL Total Bilirubin (0.0-1.0) mg/dL AST (5-31) U/L ALT (0-31) U/L Alkaline Phosphatase (39-117) U/L Total Protein (6.5-8.0) g/dL Albumin (3.5-5.0) g/dL Lipase (8-78) U/L Influenza Type A (PCR) (Negative) Influenza Type B (PCR) (Negative) RSV RNA Qual (PCR) (Negative) SARS-CoV-2 RNA (RT-PCR) (Negative) Blood Type A Positive Antibody Screen NEGATIVE Independent Interpretation I performed an independent interpretation of an: CT Scan (Small-bowel obstruction) Radiology Impression Discussion of test interpretation with radiology: I have reviewed the radiologist's reading. (High-grade small-bowel obstruction) Discharge Plan Discharge Clinical Impression: Small bowel obstruction Patient Disposition: Admitted As Inpatient
[2022-09-17] MEDS: iohexoL 350 MG/ML 100 ML INFUS..BTL IV (21:33)
[2022-09-17 21:53] VITALS: BP 147/51; PULSE 89; RESP 16; TEMP 36.8; O2SAT 93
--- NOTE | 2022-09-17 21:53 | MHC.EDTECH ---
PT 2200 ROUNDING DONE VITALS SIGN TAKEN ,REPEATED LAB DRAWN ,PT WAS REPOSITION ,PT DAUGHTER AT BEDSIDE .
[2022-09-17 22:04] LABS: INTERNATIONAL NORM RATIO 1.5 (0.9-1.1)
[2022-09-17 22:06] LABS: Partial Thromboplastin Time 34.5 SEC (26.0-36.4)
[2022-09-17] MEDS: Dextrose 5 % and 0.9 % NaCl 1,000 ML 100 ML IVCONT (22:27)
[2022-09-17 22:50] VITALS: BP 138/52; PULSE 74; RESP 12; TEMP 36.5; O2SAT 95
[2022-09-17 23:30] VITALS: BP 138/56; PULSE 83; RESP 16; TEMP 37.1; O2SAT 95
--- NOTE | 2022-09-17 23:32 | PC.NURSE ---
patient resting comfortably on stretcher at this time reporting 5/10 abdominal pain, occasional vomiting with controlled nausea. Pt has patent 20g IV in RAC running D5NS at 100mls/hr. All labs complete, patient is NPO at this time, pending bed assignement and surgeon assessment
--- NOTE | 2022-09-17 23:44 | MHC.EDTECH ---
0000 rounding done ,vitals sign taken pt was reposition in bed ,urine sample collected and sent to lab .
[2022-09-17 23:52] LABS: Appearance Urine Cloudy; Color Urine Dark Yellow; Glucose Urine UA 100 mg/dL (Negative); Leukocyte Esterase Urine Small (1+) (Negative); Nitrite Urine Negative (Negative); UMIC TRIGGER UACC YES; Urine Blood Trace (Negative); Urine Ketones Negative (Negative); Urine Protein Trace mg/dL (Neg-Trace)
[2022-09-18] VITALS (16 sets, daily range): BP systolic 128–170; BP diastolic 61–79; PULSE 73–127; RESP 15–24; TEMP 35.9–38.1; O2SAT 93–98; BMI 29.2
[2022-09-18 00:01] LABS: Bacteria Urine 2+ (None Seen); Calcium Oxalate Crystals Urine Present; UACC Culture Trigger YES
[2022-09-18] MEDS: HYDROmorphone HCl 0.5 MG/0.5 ML SYRINGE IVPUSH ×5 (02:20→20:37)
--- NOTE | 2022-09-18 02:52 | PC.NURSE ---
Addendum entered by Amy Hernandez RN 09/18/22 06:47: Pt has been getting congested cough with crackles and rhonchi all over, O2 sats 96% RA, some periorbital edema, pt denies any SOB, frequently spitting up brownish liquid , still with pain even with Dilaudid with short effects, Dr. Sullivan was updated, IVF puton hold as ordered. Original Note: Assumed care at 0141 ,pt from the ED on a stretcher, slid to bed by staffs, alert and oriented c/o abd pain 01/19, awaiting for the Diluadid to be verified, noted with some SOB on exertion, LS dim with scattered rhonchi, o2 sats at 95 % RA, stage II noted on bila buttocks, cleanse and mepilex foam applied, bruising and discoloration noted on both lower leg, also noted with mike LE edema non pitting, IVF unable to run through IVline on the RAC even after flushing and repositioning , no pain or swelling on site, new IV inserted on the right FA and tolerated, had few ice chips and then vomited several times in small amount with greenish brown vomitus, prn Dilaudid 0.5 mg Iv given , fell asleep after.
[2022-09-18 05:39] LABS: Anion Gap 14 (12-20); Carbon Dioxide 29 mmol/L (22-29); Chloride 102 mmol/L (96-108); Potassium 4.7 mmol/L (3.3-5.1); Sodium 140 mmol/L (135-145)
--- NOTE | 2022-09-18 07:24 | PHA.MEDREC ---
Pharmacy Consult ? Medication Reconciliation Pharmacy has completed the medication reconciliation. Completed by RN, reviewed by pharmacy Sandor
--- NOTE | 2022-09-18 07:40 | P.HPGS_ITS ---
History of Present Illness History of Present Illness Date of Service: 09/18/22 Chief complaint: SBO Narrative: Jenifer Mrecado is a 81 year old female with a longstanding history of a known umbilical hernia who now presents with nausea, vomiting, abdominal pain at the hernia site , and abdominal distention. Because of increase in abdominal pain and nausea vomiting, she presents to the emergency room for further evaluation. Chart was reviewed and patient evaluated Patient has a plethora of medical problems including atrial fibrillation for which she is on Eliquis, and COPD. [facility] Past Medical History Medical History (Updated 09/18/22 @ 07:45 by Carlin Sullivan MD) A-fib Acute encephalopathy Acute hypokalemia Acute respiratory failure with hypoxia Anemia Anemia Aspiration pneumonia Atrial fibrillation with RVR Bronchiectasis CAD (coronary artery disease) Chronic dyspnea COPD (chronic obstructive pulmonary disease) COPD (chronic obstructive pulmonary disease) GI bleed Paroxysmal A-fib Pseudomonal pneumonia Pseudomonas respiratory infection Pulmonary nodules Family History Family History Other No family history of cancer Surgical History Surgical History History of cholecystectomy History of hip replacement History of knee replacement History of quadruple bypass Social History Social History Household Members: Family Housing: Care Home Are you a primary healthcare insurance sales agent to a significant other at home: No Do you presently have visiting nurse or other home services: Yes Alcohol intake: former Patient Tobacco Use Status: Former Tobacco user Tobacco use type: Cigarette Smoked in Last 30 Days: No Use of substances other than those prescribed or required for medical reasons: No Have you been hit, kicked, punched, or otherwise hurt by someone within the past year? If so, by whom?: No Do you feel safe in your current relationship?: No Is there a partner from a previous relationship who is making you feel unsafe now?: No Are you made to feel afraid or neglected: No Advance Directives: No Advance Directives Information Provided: No Do you have thoughts of harming others: None Do you have a plan to hurt others: No Plan Recently lost weight without trying: No How much weight loss: Not applicable Eating poorly because of decreased appetite: No Nutrition screen score: 0 Nutrition Risks: No Nutritional Risk Patient : No : No Poor oral hygiene: No service: No Current occupational status: retired [employer] Allergies Allergy/AdvReac Type Severity Reaction Status Date / Time carvedilol Allergy Shortness Verified 09/17/22 22:26 of Breath sertraline [From Zoloft] Allergy Shortness Verified 09/17/22 22:26 of Breath spironolactone Allergy Shortness Verified 09/17/22 22:26 of Breath Active Medications: Current Medications Hydromorphone HCl (Hydromorphone Hcl 0.5 Mg/0.5 Ml Syringe) 0.5 mg IVPUSH Q2H PRN; Protocol PRN Reason: Pain, Moderate (Pain Scale 4-6 Last Admin: 09/18/22 06:32 Dose: 0.5 mg Dextrose/Sodium Chloride (D5ns) 1,000 mls @ 100 mls/hr IVCONT .Q10H [facility] Last Infusion: 09/18/22 06:54 Dose: 0 mls/hr Prothrombin Complex Concent ( Human) 1,500 unit/ IV Miscellaneous Supplies 60 mls @ 480 mls/hr IV .Q8M ONE Stop: 09/18/22 07:45 Pharmacy Consult (Consult Rx Perform Med Rec) 1 each MISCELLANE ONCE PRN PRN Reason: Consult order Sodium Chloride (0.9 % Sodium Chloride Flush 3 Ml Syringe) [facility] Last Admin: 09/18/22 00:57 Dose: Not Given Home Medications Medication Instructions Recorded Confirmed Last Taken Type docusate sodium 100 mg capsule 100 mg PO BEDTIME 03/22/22 09/17/22 09/16/22 History fluticasone propionate 50 1 spray intranasal BID 03/22/22 09/17/22 09/16/22 History mcg/actuation nasal spray,suspension montelukast 10 mg tablet 10 mg PO BEDTIME 03/22/22 09/17/22 09/16/22 History nebulizers 03/22/22 07/04/22 Unknown History nitroglycerin 0.3 mg sublingual 0.3 mg sublingual Q5M PRN Chest 03/22/22 09/17/22 Unknown History tablet Pain omeprazole 40 mg capsule,delayed 40 mg PO DAILY 03/22/22 09/17/22 09/16/22 History release oxybutynin chloride 5 mg 5 mg PO DAILY 03/22/22 09/17/22 09/16/22 History tablet,extended release 24 hr tramadol 50 mg tablet 50 mg PO BID 03/22/22 09/17/22 09/16/22 History furosemide 20 mg tablet 1 tab PO DAILY 04/06/22 09/17/22 09/16/22 History lisinopril 2.5 mg tablet 1 tab PO DAILY 04/06/22 09/17/22 09/16/22 History umeclidinium 62.5 mcg-vilanterol 1 ea inhalation DAILY 05/24/22 09/17/22 09/16/22 History 25 mcg/actuation powdr for inhalation (Anoro Ellipta) apixaban 2.5 mg tablet (Eliquis) 2.5 mg PO BID 08/04/22 09/17/22 09/16/22 History Ventolin inhalation BID 09/17/22 Unknown History Physical Exam Vital Signs: Vital Signs: Last Vital Signs Temp 96.7 F L 09/18/22 04:00 Pulse 77 09/18/22 04:00 Resp 18 09/18/22 04:00 BP 150/68 H 09/18/22 04:00 Pulse Ox 95 09/18/22 04:00 O2 Del Method Room Air 09/18/22 04:00 O2 Flow Rate 3 09/17/22 20:00 BMI result Body Mass Index 29.2 Chest: Other: breath sounds bilaterally, consistent with COPD. HS 1 in 2 GI: Other: markedly corpulent abdomen. Incarcerated possibly strangulated hernia at the umbilicus. Markedly tender. Irreducible. Results Results Labs: Short CBC 09/17/22 Range/Units 18:14 WBC 14.9 H (4.8-10.8) X10*3/uL Hgb 11.0 L (12.0-16.0) g/dl Hct 32.8 L (37.0-47.0) % Plt Count 335 D (160-400) X10*3/uL BMP 09/17/22 09/18/22 18:14 04:48 Sodium 136 140 Potassium 4.4 4.7 Chloride 98 102 Carbon Dioxide 28 29 BUN 16 Creatinine 1.09 Calcium 8.6 Liver Function 09/17/22 Range/Units 18:14 Total Bilirubin 1.3 H (0.0-1.0) mg/dL AST 45 H (5-31) U/L ALT 37 H (0-31) U/L Alkaline Phosphatase 174 H (39-117) U/L Albumin 3.2 L (3.5-5.0) g/dL Urine 09/17/22 Range/Units 23:40 Urine Color Dark Yellow Urine Appearance Cloudy Urine pH 5.0 (5.0-9.0) Ur Specific [place] 1.020 (1.005-1.025) Urine Protein Trace (Neg-Trace) mg/dL Urine Glucose (UA) 100 H (Negative) mg/dL Assessment and Plan (1) Umbilical hernia with obstruction: Status: Acute (2) Small bowel obstruction: Status: Acute Plan I discussed with the patient risks, benefits, and alternatives of exploration of incarcerated/strangulated umbilical hernia which included but not limited to bleeding, infection, recurrence, numbness, pain, scarring, possible bowel resection, possible conversion to an open laparotomy, possible cardiac or pulmonary events, possible prolonged ventilatory requirements, and the patient wishes to proceed. All questions were answered. I also called the patient's daughter Ximena and reviewed the situation with her as well. Kcentra will be administered to reverse the anticoagulation affects and ranges were made for the OR this morning. Time Spent With Patient Time: Total time managing care of this patient today ____ minutes. Quality Stroke Does the patient have a stroke diagnosis?: No VTE Prior VTE?: No VTE Risk Level:: Surgical - moderate VTE Device Contraindication: N/A - Device Ordered VTE Drug Contraindication: N/A - Med Ordered Procedures Date of Service Date of Service: 09/18/22
[2022-09-18] MEDS: 0.9 % Sodium Chloride Flush 3 ML SYRINGE IVFLUSH (07:59)
--- NOTE | 2022-09-18 09:10 | MHC.CM.PN ---
CM MET WITH PT AND HER DAUGHTER/HCP, [place], AT BEDSIDE PT LIVES WITH [place] WHO CARES FOR HER AND IS COMPENSATED VIA [employer] PT WAS RECENTLY DISCHARGED TO [facility] FOR STR, THEY REPORT SHE WAS DOING WELL WITH WALKING BUT THEY DO NOT FEEL ADEQUATE CARE WAS PROVIDED, SO PT WILL DC HOME FOLLOWING THIS ADMISSION. PRIOR TO STR, PT WAS ACTIVE WITH A RN CM FROM [facility] [[id number]] WELL A PHYSICAL THERAPIST FROM [facility] [[email or web address]]. PT HAS A WALKER, TRANSPORT W/C, RAMP, LIFT RECLINER, HOSPITAL BED, NEBULIZER, TUB BENCH, AND GRAB BARS AT HOME. HCP ON FILE PCP: GIANNI GU VAX X 4 PTS DAUGHTER IS REQUESTING CM CANCEL PTS PCP APPT SCHEDULED FOR 09/22/22 SHE DOES NOT FEEL PT WILL BE HOME IN TIME OR WELL ENOUGH. SHE WOULD LIKE IT RESCHEDULED BUT NEEDS AN AFTERNOON APPT TASK SENT TO [facility] IMM WAS DELIVERED PT AND DAUGHTER ARE CLEAR, PT IS GOING HOME WITH RESUMPTION OF SERVICES AT DC THEY ARE NOT INTERESTED IN STR TRANSPORT TBD BY PTS FUNCTIONING AT TIME OF DC DAUGHTER VS BLS
--- NOTE | 2022-09-18 09:58 | P.CONAN_ITS ---
HPI - Anesthesia Eval Consult details Narrative: Incarcerated umbilical hernia PMFSH Active Problems Active Problems: All Active Problems (Updated 09/18/22 @ 07:45 by Carlin Sullivan MD) Umbilical hernia with obstruction (Acute) Small bowel obstruction (Acute) COPD (chronic obstructive pulmonary disease) (Acute) Pseudomonas respiratory infection (Acute) Pulmonary nodules (Acute) Pseudomonal pneumonia (Acute) Past Medical History Medical History (Updated 09/18/22 @ 07:45 by Carlin Sullivan MD) A-fib Acute encephalopathy Acute hypokalemia Acute respiratory failure with hypoxia Anemia Anemia Aspiration pneumonia Atrial fibrillation with RVR Bronchiectasis CAD (coronary artery disease) Chronic dyspnea COPD (chronic obstructive pulmonary disease) COPD (chronic obstructive pulmonary disease) GI bleed Paroxysmal A-fib Pseudomonal pneumonia Pseudomonas respiratory infection Pulmonary nodules Family History Family History Other No family history of cancer Family history of problems with anesthesia: No Surgical History Surgical History History of cholecystectomy History of hip replacement History of knee replacement History of quadruple bypass History of Problems with Anesthesia: No Social History Social History Household Members: Family Housing: Senior Care Are you a primary complex care nurse practitioner to a significant other at home: No Do you presently have visiting nurse or other home services: Yes Alcohol intake: former Patient Tobacco Use Status: Former Tobacco user Tobacco use type: Cigarette Smoked in Last 30 Days: No Use of substances other than those prescribed or required for medical reasons: No Have you been hit, kicked, punched, or otherwise hurt by someone within the past year? If so, by whom?: No Do you feel safe in your current relationship?: No Is there a partner from a previous relationship who is making you feel unsafe now?: No Are you made to feel afraid or neglected: No Advance Directives: No Advance Directives Information Provided: No Do you have thoughts of harming others: None Do you have a plan to hurt others: No Plan Recently lost weight without trying: No How much weight loss: Not applicable Eating poorly because of decreased appetite: No Nutrition screen score: 0 Nutrition Risks: No Nutritional Risk Patient : No : No Poor oral hygiene: No service: No Current occupational status: retired [employer] Allergies Allergy/AdvReac Type Severity Reaction Status Date / Time carvedilol Allergy Shortness Verified 09/17/22 22:26 of Breath sertraline [From Zoloft] Allergy Shortness Verified 09/17/22 22:26 of Breath spironolactone Allergy Shortness Verified 09/17/22 22:26 of Breath Active Medications: Current Medications Hydromorphone HCl (Hydromorphone Hcl 0.5 Mg/0.5 Ml Syringe) 0.5 mg IVPUSH Q2H PRN; Protocol PRN Reason: Pain, Moderate (Pain Scale 4-6 Last Admin: 09/18/22 08:36 Dose: 0.5 mg Dextrose/Sodium Chloride (D5ns) 1,000 mls @ 100 mls/hr IVCONT .Q10H [facility] Last Infusion: 09/18/22 06:54 Dose: 0 mls/hr Pharmacy Consult (Consult Rx Perform Med Rec) 1 each MISCELLANE ONCE PRN PRN Reason: Consult order Sodium Chloride (0.9 % Sodium Chloride Flush 3 Ml Syringe) [facility] Last Admin: 09/18/22 07:59 Dose: 3 ml Home Medications Medication Instructions Recorded Confirmed Last Taken Type docusate sodium 100 mg capsule 100 mg PO BEDTIME 03/22/22 09/17/22 09/16/22 History fluticasone propionate 50 1 spray intranasal BID 03/22/22 09/17/22 09/16/22 History mcg/actuation nasal spray,suspension montelukast 10 mg tablet 10 mg PO BEDTIME 03/22/22 09/17/22 09/16/22 History nebulizers 03/22/22 07/04/22 Unknown History nitroglycerin 0.3 mg sublingual 0.3 mg sublingual Q5M PRN Chest 03/22/22 09/17/22 Unknown History tablet Pain omeprazole 40 mg capsule,delayed 40 mg PO DAILY 03/22/22 09/17/22 09/16/22 History release oxybutynin chloride 5 mg 5 mg PO DAILY 03/22/22 09/17/22 09/16/22 History tablet,extended release 24 hr tramadol 50 mg tablet 50 mg PO BID 03/22/22 09/17/22 09/16/22 History furosemide 20 mg tablet 1 tab PO DAILY 04/06/22 09/17/22 09/16/22 History lisinopril 2.5 mg tablet 1 tab PO DAILY 04/06/22 09/17/22 09/16/22 History umeclidinium 62.5 mcg-vilanterol 1 ea inhalation DAILY 05/24/22 09/17/22 09/16/22 History 25 mcg/actuation powdr for inhalation (Anoro Ellipta) apixaban 2.5 mg tablet (Eliquis) 2.5 mg PO BID 08/04/22 09/17/22 09/16/22 History Ventolin inhalation BID 09/17/22 Unknown History Exam Exam Date and Time: September 18, 2022 0958 Height,Weight and Vital Signs: Height 4 ft 11 in Weight 65.8 kg Last Vital Signs Temp 97.1 F 09/18/22 08:00 Pulse 73 09/18/22 08:00 Resp 20 09/18/22 08:00 BP 157/68 H 09/18/22 08:00 Pulse Ox 98 09/18/22 08:00 O2 Del Method Room Air 09/18/22 08:00 O2 Flow Rate 3 09/17/22 20:00 Pertinent Lab Results Pertinent Lab Results: Laboratory Tests 09/17/22 09/17/22 09/17/22 18:14 18:14 18:29 WBC 14.9 H RBC 3.41 L Hgb 11.0 L Hct 32.8 L MCV 96.2 MCH 32.3 MCHC 33.5 RDW 17.9 H Plt Count 335 D MPV 10.2 Immature Gran % (Auto) 1.4 H Neut % (Auto) 90.9 H Lymph % (Auto) 3.3 L [place] % (Auto) 4.1 Eos % (Auto) 0.0 Baso % (Auto) 0.3 Lymph # (Auto) 0.5 L [place] # (Auto) 0.6 Eos # (Auto) 0.0 Baso # (Auto) 0.1 Abs Immat Gran (auto) 0.21 H Absolute Neuts (auto) 13.5 H Absolute Nucleated RBC 0.000 Nucleated RBC % (auto) 0.0 PT INR APTT Sodium 136 Potassium 4.4 Chloride 98 Carbon Dioxide 28 Anion Gap 14 BUN 16 Creatinine 1.09 Estim Creat Clear Calc 32.5 Estimated GFR 48 Random Glucose 250 H Lactic Acid Calcium 8.6 Magnesium 1.8 Total Bilirubin 1.3 H AST 45 H ALT 37 H Alkaline Phosphatase 174 H Total Protein 5.9 L Albumin 3.2 L Lipase 17 Urine Color Urine Appearance Urine pH Ur Specific [place] Urine Protein Urine Glucose (UA) Urine Ketones Urine Blood Urine Nitrite Ur Leukocyte Esterase Urine RBC Urine WBC Ur Squamous Epith Cells Calcium Oxalate Crystal Urine Bacteria Hyaline Casts Influenza Type A (PCR) NEGATIVE Influenza Type B (PCR) NEGATIVE RSV RNA Qual (PCR) NEGATIVE SARS-CoV-2 RNA (RT-PCR) NEGATIVE Blood Type Antibody Screen 09/17/22 09/17/22 09/17/22 20:28 20:35 21:49 WBC RBC Hgb Hct MCV MCH MCHC RDW Plt Count MPV Immature Gran % (Auto) Neut % (Auto) Lymph % (Auto) [place] % (Auto) Eos % (Auto) Baso % (Auto) Lymph # (Auto) [place] # (Auto) Eos # (Auto) Baso # (Auto) Abs Immat Gran (auto) Absolute Neuts (auto) Absolute Nucleated RBC Nucleated RBC % (auto) PT 17.0 H INR 1.5 H APTT 34.5 Sodium Potassium Chloride Carbon Dioxide Anion Gap BUN Creatinine Estim Creat Clear Calc Estimated GFR Random Glucose Lactic Acid 2.0 Calcium Magnesium Total Bilirubin AST ALT Alkaline Phosphatase Total Protein Albumin Lipase Urine Color Urine Appearance Urine pH Ur Specific [place] Urine Protein Urine Glucose (UA) Urine Ketones Urine Blood Urine Nitrite Ur Leukocyte Esterase Urine RBC Urine WBC Ur Squamous Epith Cells Calcium Oxalate Crystal Urine Bacteria Hyaline Casts Influenza Type A (PCR) Influenza Type B (PCR) RSV RNA Qual (PCR) SARS-CoV-2 RNA (RT-PCR) Blood Type A Positive Antibody Screen NEGATIVE 09/17/22 09/18/22 23:40 04:48 WBC RBC Hgb Hct MCV MCH MCHC RDW Plt Count MPV Immature Gran % (Auto) Neut % (Auto) Lymph % (Auto) [place] % (Auto) Eos % (Auto) Baso % (Auto) Lymph # (Auto) [place] # (Auto) Eos # (Auto) Baso # (Auto) Abs Immat Gran (auto) Absolute Neuts (auto) Absolute Nucleated RBC Nucleated RBC % (auto) PT INR APTT Sodium 140 Potassium 4.7 Chloride 102 Carbon Dioxide 29 Anion Gap 14 BUN Creatinine Estim Creat Clear Calc Estimated GFR Random Glucose Lactic Acid Calcium Magnesium Total Bilirubin AST ALT Alkaline Phosphatase Total Protein Albumin Lipase Urine Color Dark Yellow Urine Appearance Cloudy Urine pH 5.0 Ur Specific [place] 1.020 Urine Protein Trace Urine Glucose (UA) 100 H Urine Ketones Negative Urine Blood Trace H Urine Nitrite Negative Ur Leukocyte Esterase Small (1+) H Urine RBC 3-5 H Urine WBC 11-20 H Ur Squamous Epith Cells 11-20 Calcium Oxalate Crystal Present Urine Bacteria 2+ Hyaline Casts 3-5 Influenza Type A (PCR) Influenza Type B (PCR) RSV RNA Qual (PCR) SARS-CoV-2 RNA (RT-PCR) Blood Type Antibody Screen Airway Mallampati Class: II TM Dist: >3cm Neck ROM: Full Denture: Upper and Lower Loose/Missing/Broken Teeth: No Heart: IRRR Lungs: CTA Assessment and Plan Assessment Anesthesia Assessment: Anesthesia Plan Discussed and Chart Reviewed Final Anesthetic Review Family History of Problems with Anesthesia: No History of Problems with Anesthesia: No NPO: No ASA Class: III and Emergency Final Preanesthetic Review: No Changes in Pt Med Stat, Meds/Allgs Chart Reviewed, Consent Obtained/Reviewed and Anes Risks/Benef Reviewed Patient Risk: High Procedure Risk: Intermediate Anesthetic Plan Anesthetic Plan: GA Disposition: Standard PACU
--- NOTE | 2022-09-18 11:58 | W.PM.OPN ---
Operative Note Operative Note Date of Service: 09/18/22 Narrative: Preoperative diagnosis: [] incarcerated umbilical hernia Postop diagnosis: [] same Procedure [] repair incarcerated umbilical hernia with Bard mesh Surgeon: [] Nate Box Sealing Machine Feeder: [] Type of Anesthesia: [] general Indication for surgery: [] patient was on Eliquis and given reversal agent prior to the procedure. profoundly symptomatic incarcerated umbilical hernia. Markedly corpulent abdomen Findings: [] incarcerated omental contents. Small bowel in the vicinity was of normal caliber and no evidence of any obstruction which could be seen through the small bowel was evaluated through the incision Patient brought to the operating room, placed on the operating table in a supine position, and after an adequate level of general anesthesia was induced, the abdomen was prepped and draped in usual sterile fashion. Using an infraumbilical curvilinear incision over the hernia in question, this carried down through skin, subcutaneous tissue, Where superior and inferior skin flaps were developed using blunt and electro Bovie dissection. Hernia sac was identified and circumferentially dissected down to the fascia. Sac was opened and incarcerated omental contents were encountered. Sac was circumferentially dissected out and amputated using Bovie. The incarcerated omental contents were or amputating the following manner ; omentum was sequentially taken down with clamps, cut, and tied using 2-0 Vicryl ties and specimen sent to pathology with hernia sac. Fascial margins were circumferentially cleared. Small-bowel the area was brought onto the field with no evidence of any obvious compromise or obstruction. Repair was accomplished by placing a Bard mesh in the defect and circumferentially suturing superficial layer of the mesh to the surrounding fascia using 0 tycron sutures. At completion of the procedure, mesh was in good position with no undue tension. Wound was irrigated, secured hemostasis, and closed in the following manner; posterior aspect of the umbilicus was tacked to the wound floor using interrupted 3-0 Vicryl sutures. Skin was closed using interrupted inverted deep dermal 3-0 Vicryl sutures followed by running subcuticular 4 0 Monocryl. Steri-Strips and sterile dressings were applied. Wound was infiltrated with 0.5% Marcaine with epinephrine a completion. Sponge, needle, and instrument counts were reported to be correct. Patient tolerated the procedure well and emerged anesthesia stable condition. EBL minimum
[2022-09-18] MEDS: HYDROmorphone HCl 0.5 MG/0.5 ML SYRINGE 0.25 MG IVPUSH (12:12)
[2022-09-18] MEDS: Albuterol Sulfate (0.083%) 2.5 MG/3 ML VIAL.NEB INHALE (13:01)
--- NOTE | 2022-09-18 16:47 | P.CONIM_ITS ---
History of Present Illness Data of Consult Service Date: 09/18/22 Primary Care Provider: Unknown Physician HPI Reason for consult: Medical care An 81 years old lady with PMH of Afib on eliquis, CAD, COPD, Pulm nodules among others who presents to the hospital with incarcerated umbilical hernia. had surgical intervention. She was seen post op. reports pain fairly controlled, denies any fever, chills or difficulties breathing Hospital team asked to evaluate the patient for her medical illnesses. Review of Systems Review of Systems: Yes all other systems are reviewed and are negative [facility] Medical History A-fib Acute encephalopathy Acute hypokalemia Acute respiratory failure with hypoxia Anemia Anemia Aspiration pneumonia Atrial fibrillation with RVR Bronchiectasis CAD (coronary artery disease) Chronic dyspnea COPD (chronic obstructive pulmonary disease) COPD (chronic obstructive pulmonary disease) GI bleed Paroxysmal A-fib Pseudomonal pneumonia Pseudomonas respiratory infection Pulmonary nodules Family History Other No family history of cancer Surgical History History of cholecystectomy History of hip replacement History of knee replacement History of quadruple bypass Social History Household Members: Family Housing: [facility] Are you a primary care rep to a significant other at home: No Do you presently have visiting nurse or other home services: Yes Alcohol intake: former Patient Tobacco Use Status: Former Tobacco user Tobacco use type: Cigarette Smoked in Last 30 Days: No Use of substances other than those prescribed or required for medical reasons: No Currently Displaying Signs/Symptoms of Drug Intoxication Withdrawal: No Have you been hit, kicked, punched, or otherwise hurt by someone within the past year? If so, by whom?: No Do you feel safe in your current relationship?: No Is there a partner from a previous relationship who is making you feel unsafe now?: No Are you made to feel afraid or neglected: No Advance Directives: No Advance Directives Information Provided: No Do you have thoughts of harming others: None Do you have a plan to hurt others: No Plan Recently lost weight without trying: No How much weight loss: Not applicable Eating poorly because of decreased appetite: No Nutrition screen score: 0 Nutrition Risks: No Nutritional Risk Patient : No : No Poor oral hygiene: No service: No Current occupational status: retired Meds Allergies Allergy/AdvReac Type Severity Reaction Status Date / Time carvedilol Allergy Shortness Verified 09/17/22 22:26 of Breath sertraline [From Zoloft] Allergy Shortness Verified 09/17/22 22:26 of Breath spironolactone Allergy Shortness Verified 09/17/22 22:26 of Breath Active Medications: Current Medications Albuterol Sulfate (Albuterol Sulfate (0.083%) 2.5 Mg/3 Ml Vial.Neb) 2.5 mg INHALE Q4H PRN PRN Reason: Shortness of Breath/Wheezing Diltiazem HCl (Diltiazem Hcl Cd 240 Mg Cap.Er.Deg) 240 mg PO DAILY ANIBAL; [place] Ferrous Sulfate (Ferrous Sulfate 324 Mg Tablet.Dr) 324 mg PO DAILY ANIBAL Fluticasone Propionate (Fluticasone Propionate Nasal 16 Gm [place]) 1 spray NOSTRIL-B BID ANIBAL Hydromorphone HCl (Hydromorphone Hcl 0.5 Mg/0.5 Ml Syringe) 0.5 mg IVPUSH Q2H PRN; Protocol PRN Reason: Pain, Moderate (Pain Scale 4-6 Last Admin: 09/18/22 08:36 Dose: 0.5 mg Hydromorphone HCl (Hydromorphone Hcl 0.5 Mg/0.5 Ml Syringe) 0.25 mg IVPUSH Q5M PRN; Protocol PRN Reason: Pain, Severe (Pain Scale 7-10) Last Admin: 09/18/22 12:12 Dose: 0.25 mg Lactated Ringer's (Lr) 1,000 mls @ 50 mls/hr IVCONT .Q20H ANIBAL Levalbuterol HCl (Levalbuterol Hcl 1.25 Mg/3 Ml Vial.Neb) 1.25 mg INHALE RQID ANIBAL Montelukast Sodium (Montelukast Sodium 10 Mg Tablet) 10 mg PO BEDTIME ANIBAL Nitroglycerin (Nitroglycerin 0.4 Mg Tab.Subl) 0.4 mg SUBLINGUAL Q5M PRN PRN Reason: Chest Pain Non-Formulary Medication (Umeclidinium-Vilanterol [Anoro Ellipta]) 1 each INHALE DAILY [facility] Omeprazole (Omeprazole 40 Mg Capsule.Dr) 40 mg PO DAILY@0630 [facility] Oxybutynin Chloride (Oxybutynin Chloride Er 5 Mg Tab.Er.24) 5 mg PO DAILY [facility] Pharmacy Consult (Consult Rx Perform Med Rec) 1 each MISCELLANE ONCE PRN PRN Reason: Consult order Tobramycin Sulfate (Tobramycin Sulfate 80 Mg/2 Ml Vial) 300 mg INHALE RBID [facility] Home Medications Medication Instructions Recorded Confirmed Last Taken Type docusate sodium 100 mg capsule 100 mg PO BEDTIME 03/22/22 09/17/22 09/16/22 History fluticasone propionate 50 1 spray intranasal BID 03/22/22 09/17/22 09/16/22 History mcg/actuation nasal spray,suspension montelukast 10 mg tablet 10 mg PO BEDTIME 03/22/22 09/17/22 09/16/22 History nebulizers 03/22/22 07/04/22 Unknown History nitroglycerin 0.3 mg sublingual 0.3 mg sublingual Q5M PRN Chest 03/22/22 09/17/22 Unknown History tablet Pain omeprazole 40 mg capsule,delayed 40 mg PO DAILY 03/22/22 09/17/22 09/16/22 History release oxybutynin chloride 5 mg 5 mg PO DAILY 03/22/22 09/17/22 09/16/22 History tablet,extended release 24 hr tramadol 50 mg tablet 50 mg PO BID 03/22/22 09/17/22 09/16/22 History furosemide 20 mg tablet 1 tab PO DAILY 04/06/22 09/17/22 09/16/22 History lisinopril 2.5 mg tablet 1 tab PO DAILY 04/06/22 09/17/22 09/16/22 History umeclidinium 62.5 mcg-vilanterol 1 ea inhalation DAILY 05/24/22 09/17/22 09/16/22 History 25 mcg/actuation powdr for inhalation (Anoro Ellipta) apixaban 2.5 mg tablet (Eliquis) 2.5 mg PO BID 08/04/22 09/17/22 09/16/22 History Ventolin inhalation BID 09/17/22 Unknown History Physical Exam Vital Signs and Narrative: Vital Signs: Last Vital Signs Temp 97.3 F 09/18/22 15:14 Pulse 120 H 09/18/22 15:14 Resp 18 09/18/22 15:14 BP 149/78 H 09/18/22 15:14 Pulse Ox 95 09/18/22 15:17 O2 Del Method Room Air 09/18/22 15:17 O2 Flow Rate 3 09/17/22 20:00 BMI result Body Mass Index 29.2 Const: Other: Constitutional : Awake, interactive, not in distress Neck : Normal inspection, Supple Cardiovascular : RRR, no JVP, no lower extremity edema Respiratory : fair bilateral air entry, no crackles, wheezes or rhonchi Gastrointestinal: soft, lax, decrease bowel sounds, surgical site covered with dressing Skin : Warm, Dry Neurological : Alert & oriented x3, No focal deficit Results Labs 09/17/22 18:14 09/18/22 04:48 Labs: Laboratory Results - last 24 hr 09/17/22 09/17/22 09/17/22 18:14 18:14 18:29 MCV 96.2 MCH 32.3 MCHC 33.5 RDW 17.9 H Plt Count 335 D MPV 10.2 Immature Gran % (Auto) 1.4 H Neut % (Auto) 90.9 H Lymph % (Auto) 3.3 L [place] % (Auto) 4.1 Eos % (Auto) 0.0 Baso % (Auto) 0.3 Lymph # (Auto) 0.5 L [place] # (Auto) 0.6 Eos # (Auto) 0.0 Baso # (Auto) 0.1 Abs Immat Gran (auto) 0.21 H Absolute Neuts (auto) 13.5 H Absolute Nucleated RBC 0.000 Nucleated RBC % (auto) 0.0 PT INR APTT Anion Gap 14 Estim Creat Clear Calc 32.5 Estimated GFR 48 Random Glucose 250 H Lactic Acid Calcium 8.6 Magnesium 1.8 Total Bilirubin 1.3 H AST 45 H ALT 37 H Alkaline Phosphatase 174 H Total Protein 5.9 L Albumin 3.2 L Lipase 17 Urine Color Urine Appearance Urine pH Ur Specific [place] Urine Protein Urine Glucose (UA) Urine Ketones Urine Blood Urine Nitrite Ur Leukocyte Esterase Urine RBC Urine WBC Ur Squamous Epith Cells Calcium Oxalate Crystal Urine Bacteria Hyaline Casts Influenza Type A (PCR) NEGATIVE Influenza Type B (PCR) NEGATIVE RSV RNA Qual (PCR) NEGATIVE SARS-CoV-2 RNA (RT-PCR) NEGATIVE Blood Type Antibody Screen 09/17/22 09/17/22 09/17/22 20:28 20:35 21:49 MCV MCH MCHC RDW Plt Count MPV Immature Gran % (Auto) Neut % (Auto) Lymph % (Auto) [place] % (Auto) Eos % (Auto) Baso % (Auto) Lymph # (Auto) [place] # (Auto) Eos # (Auto) Baso # (Auto) Abs Immat Gran (auto) Absolute Neuts (auto) Absolute Nucleated RBC Nucleated RBC % (auto) PT 17.0 H INR 1.5 H APTT 34.5 Anion Gap Estim Creat Clear Calc Estimated GFR Random Glucose Lactic Acid 2.0 Calcium Magnesium Total Bilirubin AST ALT Alkaline Phosphatase Total Protein Albumin Lipase Urine Color Urine Appearance Urine pH Ur Specific [place] Urine Protein Urine Glucose (UA) Urine Ketones Urine Blood Urine Nitrite Ur Leukocyte Esterase Urine RBC Urine WBC Ur Squamous Epith Cells Calcium Oxalate Crystal Urine Bacteria Hyaline Casts Influenza Type A (PCR) Influenza Type B (PCR) RSV RNA Qual (PCR) SARS-CoV-2 RNA (RT-PCR) Blood Type A Positive Antibody Screen NEGATIVE 09/17/22 09/18/22 23:40 04:48 MCV MCH MCHC RDW Plt Count MPV Immature Gran % (Auto) Neut % (Auto) Lymph % (Auto) [place] % (Auto) Eos % (Auto) Baso % (Auto) Lymph # (Auto) [place] # (Auto) Eos # (Auto) Baso # (Auto) Abs Immat Gran (auto) Absolute Neuts (auto) Absolute Nucleated RBC Nucleated RBC % (auto) PT INR APTT Anion Gap 14 Estim Creat Clear Calc Estimated GFR Random Glucose Lactic Acid Calcium Magnesium Total Bilirubin AST ALT Alkaline Phosphatase Total Protein Albumin Lipase Urine Color Dark Yellow Urine Appearance Cloudy Urine pH 5.0 Ur Specific [place] 1.020 Urine Protein Trace Urine Glucose (UA) 100 H Urine Ketones Negative Urine Blood Trace H Urine Nitrite Negative Ur Leukocyte Esterase Small (1+) H Urine RBC 3-5 H Urine WBC 11-20 H Ur Squamous Epith Cells 11-20 Calcium Oxalate Crystal Present Urine Bacteria 2+ Hyaline Casts 3-5 Influenza Type A (PCR) Influenza Type B (PCR) RSV RNA Qual (PCR) SARS-CoV-2 RNA (RT-PCR) Blood Type Antibody Screen Imaging Radiologist's Impressions: Impressions Abdomen/Pelvis CT 09/17/22 21:30 IMPRESSION: 1. High-grade small bowel obstruction with transition point in the umbilicus. 2. Large umbilical hernia with herniation of dilated colonic loop. 3. Intrahepatic biliary dilatation and dilatation of CBD status post cholecystectomy. Fleischner guidelines were followed. Assessment and Plan (1) Umbilical hernia with obstruction: Status: Acute (2) COPD (chronic obstructive pulmonary disease): Qualifiers: COPD type: COPD with acute exacerbation Qualified Code(s): J44.1 - Chronic obstructive pulmonary disease with (acute) exacerbation Status: Acute (3) Pseudomonas respiratory infection: Status: Acute Plan An 81 years old lady with PMH of Afib on eliquis, CAD, COPD, Pulm nodules among others who presents to the hospital with incarcerated umbilical hernia. had surgical intervention. # Incarcerated umbilical hernia POD 0 surgery team following dilaudid for pain # Pseudomonas resp infx continue Tobramycin neb # COPD , not in exacerbation Home inhalors Xopenex Neb PRN Albuterol continue standing/prn nebs # paroxysmal AF rate-controlled continue diltiazem Hold Eliquis pending surgery recommendations # chronic HFpEF continue furosemide and lisinopril # Hx nondisplaced acute 11th+12th R rib fractures # multiple vertebral compression deformities, age-indeterminate on IV pain meds now Tramadol at home # VTE ppx: Heparin Thank you for the consult will contiue to follow the patient with you as needed Time Spent With Patient Time: Total time managing care of this patient today ____ minutes.
[2022-09-18] MEDS: Heparin Sodium,Porcine 5,000 UNIT/ML VIAL 5000 UNIT SUBCUT (17:53)
[2022-09-18] MEDS: Lactated Ringers 1,000 ML 50 ML IVCONT (17:53)
[2022-09-18] MEDS: levalbuterol HCL 1.25 MG/3 ML VIAL.NEB INHALE (19:56)
[2022-09-18] MEDS: Montelukast Sodium 10 MG TABLET PO ×2 (20:37→20:41)
[2022-09-18] MEDS: Fluticasone Propionate Nasal 16 GM SPRAY 1 SPRAY NOSTRIL-B (22:20)
[2022-09-19] VITALS (11 sets, daily range): BP systolic 110–167; BP diastolic 59–83; PULSE 64–111; RESP 16–18; TEMP 35.9–36.6; O2SAT 92–96; BMI 29.2
[2022-09-19] MEDS: HYDROmorphone HCl 0.5 MG/0.5 ML SYRINGE IVPUSH ×5 (00:34→20:42)
[2022-09-19] MEDS: Heparin Sodium,Porcine 5,000 UNIT/ML VIAL 5000 UNIT SUBCUT ×3 (00:34→16:42)
[2022-09-19] MEDS: oxyBUTYnin chloride ER 5 MG TAB.ER.24 PO (07:58)
[2022-09-19] MEDS: Ferrous Sulfate 324 MG TABLET.DR PO (07:59)
[2022-09-19] MEDS: dilTIAZem HCL CD 240 MG CAP.ER.DEG PO (07:59)
--- NOTE | 2022-09-19 09:57 | HO.POSTANES ---
Post Anesthesia Evaluation Post Anesthesia Evaluation Vital Signs: Vital Signs Temp Pulse Resp BP Pulse Ox O2 Del Method 09/19/22 07:18 97.9 F 111 H 18 131/83 96 Room Air 09/19/22 04:41 97.8 F 100 17 110/59 L 92 Room Air 09/19/22 04:39 18 Anesthesia: General Mental Status: Awake Pain Control: Satisfactory Nausea/Vomiting: None Hydration: Adequate Anesthesia-Related Issues: No Anes. Related Issues
[2022-09-19] MEDS: Tobramycin Sulfate 80 MG/2 ML VIAL 300 MG INHALE ×2 (09:59→19:06)
[2022-09-19] MEDS: levalbuterol HCL 1.25 MG/3 ML VIAL.NEB INHALE ×4 (10:02→19:03)
--- NOTE | 2022-09-19 10:04 | P.PNGS_ITS ---
Subjective Subjective Date of Service: 09/19/22 Interval history: Patient had uneventful evening. Aside from mild incisional discomfort she is doing well. She is hungry this morning. Physical Exam Vital Signs: Vital Signs: Last Vital Signs Temp 97.9 F 09/19/22 07:18 Pulse 111 H 09/19/22 07:18 Resp 18 09/19/22 07:18 BP 131/83 09/19/22 07:18 Pulse Ox 96 09/19/22 07:18 O2 Del Method Room Air 09/19/22 07:18 O2 Flow Rate 3 09/17/22 20:00 BMI result Body Mass Index 29.2 GI: Other: Abdomen soft, benign. Wound clean dry and intact. Objective Data Active Medications Albuterol Sulfate (Albuterol Sulfate (0.083%) 2.5 Mg/3 Ml Vial.Neb) 2.5 mg INHALE Q4H PRN PRN Reason: Shortness of Breath/Wheezing Diltiazem HCl (Diltiazem Hcl Cd 240 Mg Cap.Er.Deg) 240 mg PO DAILY [facility]; Protocol Last Admin: 09/19/22 07:59 Dose: 240 mg Documented By: SHIRA Docusate Sodium (Docusate Sodium 100 Mg Capsule) 100 mg PO BID [facility] Ferrous Sulfate (Ferrous Sulfate 324 Mg Tablet.) 324 mg PO DAILY [facility] Last Admin: 09/19/22 07:59 Dose: 324 mg Documented By: SHIRA Fluticasone Propionate (Fluticasone Propionate Nasal 16 Gm [place]) 1 spray NOSTRIL-B BID [facility] Last Admin: 09/18/22 22:20 Dose: 1 spray Documented By: CATHY Heparin Sodium (Porcine) (Heparin Sodium,Porcine 5,000 Unit/Ml Vial) 5,000 unit SUBCUT Q8H [facility] Last Admin: 09/19/22 07:57 Dose: 5,000 unit Documented By: SHIRA Hydromorphone HCl (Hydromorphone Hcl 0.5 Mg/0.5 Ml Syringe) 0.5 mg IVPUSH Q2H PRN; Protocol PRN Reason: Pain, Moderate (Pain Scale 4-6 Last Admin: 09/19/22 08:08 Dose: 0.5 mg Documented By: SHIRA Hydromorphone HCl (Hydromorphone Hcl 0.5 Mg/0.5 Ml Syringe) 0.25 mg IVPUSH Q5M PRN; Protocol PRN Reason: Pain, Severe (Pain Scale 7-10) Last Admin: 09/18/22 12:12 Dose: 0.25 mg Documented By: MAGALI Lactated Ringer's (Lr) 1,000 mls @ 50 mls/hr IVCONT .Q20H [facility] Last Admin: 09/18/22 17:53 Dose: 50 mls/hr Documented By: HAILEY Levalbuterol HCl (Levalbuterol Hcl 1.25 Mg/3 Ml Vial.Neb) 1.25 mg INHALE RQID [facility] Last Admin: 09/19/22 10:02 Dose: 1.25 mg Documented By: HILDA Montelukast Sodium (Montelukast Sodium 10 Mg Tablet) 10 mg PO BEDTIME [facility] Last Admin: 09/18/22 20:41 Dose: 10 mg Documented By: CATHY Nitroglycerin (Nitroglycerin 0.4 Mg Tab.Subl) 0.4 mg SUBLINGUAL Q5M PRN PRN Reason: Chest Pain Non-Formulary Medication (Umeclidinium-Vilanterol [Anoro Ellipta]) 1 each INHALE DAILY [facility] Omeprazole (Omeprazole 40 Mg Capsule.Dr) 40 mg PO DAILY@0630 [facility] Last Admin: 09/19/22 06:08 Dose: Not Given Documented By: DANIELLE Non-Admin Reason: TOO SLEEPY RIGHT NOW Oxybutynin Chloride (Oxybutynin Chloride Er 5 Mg Tab.Er.24) 5 mg PO DAILY [facility] Last Admin: 09/19/22 07:58 Dose: 5 mg Documented By: SHIRA Pharmacy Consult (Consult Rx Perform Med Rec) 1 each MISCELLANE ONCE PRN PRN Reason: Consult order Tobramycin Sulfate (Tobramycin Sulfate 80 Mg/2 Ml Vial) 300 mg INHALE RBID [facility] Last Admin: 09/19/22 09:59 Dose: 300 mg Documented By: HILDA Labs 09/17/22 18:14 09/18/22 04:48 Microbiology Microbiology Results: Microbiology 09/17/22 20:28 Blood Culture - Preliminary Blood - Venous No growth after 24 hours. 09/17/22 20:28 Blood Culture - Preliminary Blood - Venous No growth after 24 hours. Procedures Date of Service Date of Service: 09/19/22 Progress Note: A&P Assessment and plan (1) Umbilical hernia with obstruction: Status: Acute (2) Small bowel obstruction: Status: Acute Plan Current plan is to advance diet as tolerated, out of bed/ambulate, incentive spirometry, ice pack to wound Time Spent With Patient Time: Total time managing care of this patient today ____ minutes. Quality Stroke Does the patient have a stroke diagnosis?: No VTE Prior VTE?: No VTE Risk Level:: Surgical - moderate VTE Device Contraindication: N/A - Device Ordered VTE Drug Contraindication: N/A - Med Ordered
[2022-09-19] MEDS: Docusate Sodium 100 MG CAPSULE PO ×2 (10:42→20:38)
[2022-09-19] MEDS: Fluticasone Propionate Nasal 16 GM SPRAY 1 SPRAY NOSTRIL-B ×2 (10:46→20:38)
--- NOTE | 2022-09-19 12:45 | HO.PM.IMPN ---
Subjective Subjective Date of Service: 09/19/22 Interval History: Feels better no respiratory complaints no overnight events Review of Systems Review of Systems: Yes all other systems are reviewed and are negative Physical Exam Vital Signs: Vital Signs: Last Vital Signs Temp 97.9 F 09/19/22 07:18 Pulse 111 H 09/19/22 07:18 Resp 18 09/19/22 07:18 BP 131/83 09/19/22 07:18 Pulse Ox 96 09/19/22 07:18 O2 Del Method Room Air 09/19/22 07:18 O2 Flow Rate 3 09/17/22 20:00 BMI result Body Mass Index 29.2 Const: Other: Constitutional : Awake, interactive, not in distress Neck : Normal inspection, Supple Cardiovascular : RRR, no JVP, no lower extremity edema Respiratory : fair bilateral air entry, no crackles, wheezes or rhonchi Gastrointestinal: soft, lax, decrease bowel sounds, surgical site covered with dressing Skin : Warm, Dry Neurological : Alert & oriented x3, No focal deficit Objective Data Active Medications Albuterol Sulfate (Albuterol Sulfate (0.083%) 2.5 Mg/3 Ml Vial.Neb) 2.5 mg INHALE Q4H PRN PRN Reason: Shortness of Breath/Wheezing Diltiazem HCl (Diltiazem Hcl Cd 240 Mg Cap.Er.Deg) 240 mg PO DAILY [facility]; Protocol Last Admin: 09/19/22 07:59 Dose: 240 mg Documented By: SHIRA Docusate Sodium (Docusate Sodium 100 Mg Capsule) 100 mg PO BID [facility] Last Admin: 09/19/22 10:42 Dose: 100 mg Documented By: SHIRA Ferrous Sulfate (Ferrous Sulfate 324 Mg Tablet.Dr) 324 mg PO DAILY [facility] Last Admin: 09/19/22 07:59 Dose: 324 mg Documented By: SHIRA Fluticasone Propionate (Fluticasone Propionate Nasal 16 Gm [place]) 1 spray NOSTRIL-B BID [facility] Last Admin: 09/19/22 10:46 Dose: 1 spray Documented By: SHIRA Heparin Sodium (Porcine) (Heparin Sodium,Porcine 5,000 Unit/Ml Vial) 5,000 unit SUBCUT Q8H [facility] Last Admin: 09/19/22 07:57 Dose: 5,000 unit Documented By: SHIRA Hydromorphone HCl (Hydromorphone Hcl 0.5 Mg/0.5 Ml Syringe) 0.5 mg IVPUSH Q2H PRN; Protocol PRN Reason: Pain, Moderate (Pain Scale 4-6 Last Admin: 09/19/22 08:08 Dose: 0.5 mg Documented By: SHIRA Hydromorphone HCl (Hydromorphone Hcl 0.5 Mg/0.5 Ml Syringe) 0.25 mg IVPUSH Q5M PRN; Protocol PRN Reason: Pain, Severe (Pain Scale 7-10) Last Admin: 09/18/22 12:12 Dose: 0.25 mg Documented By: MAGALI Levalbuterol HCl (Levalbuterol Hcl 1.25 Mg/3 Ml Vial.Neb) 1.25 mg INHALE RQID [facility] Last Admin: 09/19/22 12:05 Dose: 1.25 mg Documented By: HILDA Montelukast Sodium (Montelukast Sodium 10 Mg Tablet) 10 mg PO BEDTIME [facility] Last Admin: 09/18/22 20:41 Dose: 10 mg Documented By: CATHY Nitroglycerin (Nitroglycerin 0.4 Mg Tab.Subl) 0.4 mg SUBLINGUAL Q5M PRN PRN Reason: Chest Pain Non-Formulary Medication (Umeclidinium-Vilanterol [Anoro Ellipta]) 1 each INHALE DAILY [facility] Omeprazole (Omeprazole 40 Mg Capsule.Dr) 40 mg PO DAILY@0630 [facility] Last Admin: 09/19/22 06:08 Dose: Not Given Documented By: DANIELLE Non-Admin Reason: TOO SLEEPY RIGHT NOW Oxybutynin Chloride (Oxybutynin Chloride Er 5 Mg Tab.Er.24) 5 mg PO DAILY [facility] Last Admin: 09/19/22 07:58 Dose: 5 mg Documented By: SHIRA Pharmacy Consult (Consult Rx Perform Med Rec) 1 each MISCELLANE ONCE PRN PRN Reason: Consult order Tobramycin Sulfate (Tobramycin Sulfate 80 Mg/2 Ml Vial) 300 mg INHALE RBID [facility] Last Admin: 09/19/22 09:59 Dose: 300 mg Documented By: HILDA Labs 09/17/22 18:14 09/18/22 04:48 Microbiology Microbiology Results: Microbiology 09/18/22 Unknown Urine Culture - Preliminary Urine clean catch - Clean Catch Midstream Culture in progress. 09/17/22 20:28 Blood Culture - Preliminary Blood - Venous No growth after 24 hours. 09/17/22 20:28 Blood Culture - Preliminary Blood - Venous No growth after 24 hours. Assessment and Plan (1) Umbilical hernia with obstruction: Status: Acute (2) Pseudomonas respiratory infection: Status: Acute Plan An 81 years old lady with PMH of Afib on eliquis, CAD, COPD, Pulm nodules among others who presents to the hospital with incarcerated umbilical hernia. had surgical intervention. # Incarcerated umbilical hernia POD 1 surgery team following dilaudid for pain advancing diet # Pseudomonas resp infx continue Tobramycin neb # COPD , not in exacerbation Home inhalors Xopenex Neb PRN Albuterol continue standing/prn nebs # paroxysmal AF rate-controlled continue diltiazem Hold Eliquis pending surgery recommendations # chronic HFpEF continue furosemide and lisinopril # Hx nondisplaced acute 11th+12th R rib fractures # multiple vertebral compression deformities, age-indeterminate on IV pain meds now Tramadol at home # VTE ppx: Heparin Thank you for the consult will contiue to follow the patient with you as needed Time Spent With Patient Time: Total time managing care of this patient today ____ minutes. Quality Stroke Does the patient have a stroke diagnosis?: No VTE Prior VTE?: No VTE Risk Level:: Surgical - moderate VTE Device Contraindication: N/A - Device Ordered VTE Drug Contraindication: N/A - Med Ordered
--- NOTE | 2022-09-19 13:34 | MHC.CM.PN ---
EMR REVIEWED AND PER MD ROUNDS, PT NOT MEDICALLY CLEARED FOR DC (CONTINUING TO ADVANCE DIET) CM WILL CONTINUE TO FOLLOW FOR PLAN
--- NOTE | 2022-09-19 13:43 | MHC.CLN ---
NUTRITION CONSULT CONSULT FOR SKIN INTEGRITY. STAGE II PRESSURE INJURY BILATERAL BUTTOCKS. DIET=REGULAR S/P SURGERY FOR UMBILICAL HERNIA 09/18. WEIGHT LOSS TREND X 6 MONTHS -9.3%, NOT SIGNIFICANT. PRIOR ADM 08/23, FAMILY REPORTED 40# WEIGHT LOSS X ONE YEAR. ADDING ENSURE BID TO PROMOTE WOUND HEALING. PROVIDES ADDITIONAL 700 KCALS, 40 G PROTEIN. FOLLOW FOR INTAKE AND WOUND HEALING.
[2022-09-19] MEDS: Montelukast Sodium 10 MG TABLET PO (20:38)
[2022-09-20] VITALS (8 sets, daily range): BP systolic 133–146; BP diastolic 63–80; PULSE 67–116; RESP 17–20; TEMP 36.1–37; O2SAT 94–100
[2022-09-20] MEDS: HYDROmorphone HCl 0.5 MG/0.5 ML SYRINGE IVPUSH ×6 (00:28→23:10)
[2022-09-20] MEDS: Omeprazole 40 MG CAPSULE.DR PO (05:26)
[2022-09-20] MEDS: levalbuterol HCL 1.25 MG/3 ML VIAL.NEB INHALE ×3 (07:46→20:19)
[2022-09-20] MEDS: Tobramycin Sulfate 80 MG/2 ML VIAL 300 MG INHALE ×2 (07:46→20:03)
[2022-09-20] MEDS: dilTIAZem HCL CD 240 MG CAP.ER.DEG PO (08:48)
[2022-09-20] MEDS: oxyBUTYnin chloride ER 5 MG TAB.ER.24 PO (08:48)
[2022-09-20] MEDS: Docusate Sodium 100 MG CAPSULE PO ×2 (08:49→20:49)
[2022-09-20] MEDS: Ferrous Sulfate 324 MG TABLET.DR PO (08:49)
[2022-09-20] MEDS: Heparin Sodium,Porcine 5,000 UNIT/ML VIAL 5000 UNIT SUBCUT (08:49)
[2022-09-20] MEDS: Fluticasone Propionate Nasal 16 GM SPRAY 1 SPRAY NOSTRIL-B ×2 (08:50→20:56)
--- NOTE | 2022-09-20 12:33 | P.PNGS_ITS ---
Subjective Subjective Date of Service: 09/20/22 Interval history: Feeling much better, pain is improved. Tolerating solid diet. Participating with PT. Passing flatus, no BM. Physical Exam Vital Signs: Vital Signs: Last Vital Signs Temp 96.9 F 09/20/22 08:00 Pulse 116 H 09/20/22 12:08 Resp 20 09/20/22 11:45 BP 141/67 H 09/20/22 08:00 Pulse Ox 100 09/20/22 12:08 O2 Del Method Nasal Cannula 09/20/22 08:00 O2 Flow Rate 2 09/20/22 08:00 BMI result Body Mass Index 29.2 Const: General: comfortable, no acute distress and alert Orientation/consciousness: patient oriented x3 GI: Inspection: No distended and Yes incision (clean) Palpation (GI): Soft to palpation, Tenderness to palpation present (GI) (mild incisional), no guarding and not rigid Skin: General skin exam: no rashes or lesions noted Neuro: General: patient oriented x3 and moves all extremities Objective Data Active Medications Albuterol Sulfate (Albuterol Sulfate (0.083%) 2.5 Mg/3 Ml Vial.Neb) 2.5 mg INHALE Q4H PRN PRN Reason: Shortness of Breath/Wheezing Apixaban (Apixaban 2.5 Mg Tablet) 2.5 mg PO BID [facility] Diltiazem HCl (Diltiazem Hcl Cd 240 Mg Cap.Er.Deg) 240 mg PO DAILY [facility]; Protocol Last Admin: 09/20/22 08:48 Dose: 240 mg Documented By: ALISA Docusate Sodium (Docusate Sodium 100 Mg Capsule) 100 mg PO BID [facility] Last Admin: 09/20/22 08:49 Dose: 100 mg Documented By: ALISA Ferrous Sulfate (Ferrous Sulfate 324 Mg Tablet.Dr) 324 mg PO DAILY [facility] Last Admin: 09/20/22 08:49 Dose: 324 mg Documented By: ALISA Fluticasone Propionate (Fluticasone Propionate Nasal 16 Gm [place]) 1 spray NOSTRIL-B BID [facility] Last Admin: 09/20/22 08:50 Dose: 1 spray Documented By: ALISA Hydromorphone HCl (Hydromorphone Hcl 0.5 Mg/0.5 Ml Syringe) 0.5 mg IVPUSH Q2H PRN; Protocol PRN Reason: Pain, Moderate (Pain Scale 4-6 Last Admin: 09/20/22 08:50 Dose: 0.5 mg Documented By: ALISA Hydromorphone HCl (Hydromorphone Hcl 0.5 Mg/0.5 Ml Syringe) 0.25 mg IVPUSH Q5M PRN; Protocol PRN Reason: Pain, Severe (Pain Scale 7-10) Last Admin: 09/18/22 12:12 Dose: 0.25 mg Documented By: MAGALI Levalbuterol HCl (Levalbuterol Hcl 1.25 Mg/3 Ml Vial.Neb) 1.25 mg INHALE RQID [facility] Last Admin: 09/20/22 11:28 Dose: 1.25 mg Documented By: KVNG Montelukast Sodium (Montelukast Sodium 10 Mg Tablet) 10 mg PO BEDTIME [facility] Last Admin: 09/18/22 20:41 Dose: 10 mg Documented By: CATHY Nitroglycerin (Nitroglycerin 0.4 Mg Tab.Subl) 0.4 mg SUBLINGUAL Q5M PRN PRN Reason: Chest Pain Patient Own ( Umeclidinium- Vilanterol [Anoro Ellipta] 62.5-25 Mcg /Actuation Bl 1 each INHALE RDAILY [facility] Last Admin: 09/20/22 10:38 Dose: 1 each Documented By: ALISA Omeprazole (Omeprazole 40 Mg Capsule.Dr) 40 mg PO DAILY@0630 [facility] Last Admin: 09/20/22 05:26 Dose: 40 mg Documented By: CAITLIN Oxybutynin Chloride (Oxybutynin Chloride Er 5 Mg Tab.Er.24) 5 mg PO DAILY [facility] Last Admin: 09/20/22 08:48 Dose: 5 mg Documented By: ALISA Pharmacy Consult (Consult Rx Perform Med Rec) 1 each MISCELLANE ONCE PRN PRN Reason: Consult order Tobramycin Sulfate (Tobramycin Sulfate 80 Mg/2 Ml Vial) 300 mg INHALE RBID [facility] Last Admin: 09/20/22 07:46 Dose: 300 mg Documented By: KVNG Labs 09/17/22 18:14 09/18/22 04:48 Microbiology Microbiology Results: Microbiology 09/18/22 Unknown Urine Culture - Final Urine clean catch - Clean Catch Midstream 09/17/22 20:28 Blood Culture - Preliminary Blood - Venous No growth after 48 hours. 09/17/22 20:28 Blood Culture - Preliminary Blood - Venous No growth after 48 hours. Procedures Date of Service Date of Service: 09/20/22 Progress Note: A&P Assessment and plan (1) Umbilical hernia with obstruction: Status: Acute (2) Small bowel obstruction: Status: Acute (3) COPD (chronic obstructive pulmonary disease): Status: Acute Plan 81 year old female admitted with incarcerated umbilical hernia with obstruction now POD #2 s/p repair of incarcerated umbilical hernia with mesh. Continues to do fairly well post op, good pain control. Passing flatus. Tolerating diet. VSS. Abd exam benign with clean incision. Will resume home eliquis. Encouraged PO analgesics in preparation for discharge. PT rec home with services- pt lives with daughter. Plan for discharge tomorrow. Patient comfortable with plan. On colace, will add miralax for bowel regimen. Time Spent With Patient Time: Total time managing care of this patient today ____ minutes. Quality Stroke Does the patient have a stroke diagnosis?: No VTE Prior VTE?: No VTE Risk Level:: Surgical - moderate VTE Device Contraindication: N/A - Device Ordered VTE Drug Contraindication: N/A - Med Ordered
[2022-09-20] MEDS: Furosemide 40 MG/4 ML VIAL IVPUSH (12:56)
[2022-09-20] MEDS: oxyCODONE HCl Immed Release 5 MG TABLET 10 MG PO (12:57)
[2022-09-20] MEDS: polyethylene glycoL 3350 17 GM POWD.PACK PO (12:57)
[2022-09-20] MEDS: Montelukast Sodium 10 MG TABLET PO (20:48)
[2022-09-20] MEDS: Apixaban 2.5 MG TABLET PO (20:49)
[2022-09-21] MEDS: oxyCODONE HCl Immed Release 5 MG TABLET 10 MG PO ×2 (02:12→07:34)
[2022-09-21 03:54] VITALS: BP 147/70; PULSE 74; RESP 18; TEMP 36.5; O2SAT 96
[2022-09-21] MEDS: Omeprazole 40 MG CAPSULE.DR PO (05:37)
[2022-09-21] MEDS: HYDROmorphone HCl 0.5 MG/0.5 ML SYRINGE IVPUSH (05:37)
[2022-09-21 07:21] VITALS: BP 129/60; PULSE 76; RESP 17; O2SAT 95
[2022-09-21 08:15] VITALS: PULSE 75; RESP 20; O2SAT 94
[2022-09-21] MEDS: Tobramycin Sulfate 80 MG/2 ML VIAL 300 MG INHALE ×2 (08:15→19:36)
[2022-09-21] MEDS: polyethylene glycoL 3350 17 GM POWD.PACK PO (08:15)
[2022-09-21] MEDS: levalbuterol HCL 1.25 MG/3 ML VIAL.NEB INHALE ×3 (08:15→19:36)
[2022-09-21] MEDS: Fluticasone Propionate Nasal 16 GM SPRAY 1 SPRAY NOSTRIL-B ×2 (08:16→19:45)
[2022-09-21] MEDS: Apixaban 2.5 MG TABLET PO ×2 (08:17→19:46)
[2022-09-21] MEDS: Furosemide 20 MG TABLET PO (08:17)
[2022-09-21] MEDS: Docusate Sodium 100 MG CAPSULE PO ×2 (08:18→19:46)
[2022-09-21] MEDS: oxyBUTYnin chloride ER 5 MG TAB.ER.24 PO (08:18)
[2022-09-21] MEDS: dilTIAZem HCL CD 240 MG CAP.ER.DEG PO (08:18)
[2022-09-21] MEDS: Ferrous Sulfate 324 MG TABLET.DR PO (08:20)
--- NOTE | 2022-09-21 10:17 | P.PNGS_ITS ---
Subjective Subjective Date of Service: 09/21/22 Interval history: Feeling a little better today. Tolerating solid diet. Passing flatus, having BM. Says PT is going ok . She states she is not ready to go home. Physical Exam Vital Signs: Vital Signs: Last Vital Signs Temp 97.7 F 09/21/22 03:54 Pulse 75 09/21/22 08:15 Resp 20 09/21/22 08:15 BP 129/60 09/21/22 07:21 Pulse Ox 95 09/21/22 07:21 O2 Del Method Room Air 09/21/22 07:21 O2 Flow Rate 2 09/20/22 08:00 BMI result Body Mass Index 29.2 Const: General: comfortable, no acute distress and alert Resp: Effort & Inspection: normal respiratory effort GI: Inspection: Yes distended and Yes incision (clean) Palpation (GI): Soft to palpation, Tenderness to palpation present (GI) (mild, incisional), no guar ding and not rigid Skin: General skin exam: no rashes or lesions noted Objective Data Active Medications Albuterol Sulfate (Albuterol Sulfate (0.083%) 2.5 Mg/3 Ml Vial.Neb) 2.5 mg INHALE Q4H PRN PRN Reason: Shortness of Breath/Wheezing Apixaban (Apixaban 2.5 Mg Tablet) 2.5 mg PO BID [facility] Last Admin: 09/21/22 08:17 Dose: 2.5 mg Documented By: GOVIND Diltiazem HCl (Diltiazem Hcl Cd 240 Mg Cap.Er.Deg) 240 mg PO DAILY [facility]; Protocol Last Admin: 09/21/22 08:18 Dose: 240 mg Documented By: GOVIND Docusate Sodium (Docusate Sodium 100 Mg Capsule) 100 mg PO BID [facility] Last Admin: 09/21/22 08:18 Dose: 100 mg Documented By: GOVIND Ferrous Sulfate (Ferrous Sulfate 324 Mg Tablet.) 324 mg PO DAILY [facility] Last Admin: 09/21/22 08:20 Dose: 324 mg Documented By: GOVIND Fluticasone Propionate (Fluticasone Propionate Nasal 16 Gm [place]) 1 spray NOSTRIL-B BID [facility] Last Admin: 09/21/22 08:16 Dose: 1 spray Documented By: GOVIND Furosemide (Furosemide 20 Mg Tablet) 20 mg PO DAILY [facility]; Protocol Last Admin: 09/21/22 08:17 Dose: 20 mg Documented By: GOVIND Hydromorphone HCl (Hydromorphone Hcl 0.5 Mg/0.5 Ml Syringe) 0.5 mg IVPUSH Q2H PRN; Protocol PRN Reason: Pain, Moderate (Pain Scale 4-6 Last Admin: 09/21/22 05:37 Dose: 0.5 mg Documented By: FELICIA Hydromorphone HCl (Hydromorphone Hcl 0.5 Mg/0.5 Ml Syringe) 0.25 mg IVPUSH Q5M PRN; Protocol PRN Reason: Pain, Severe (Pain Scale 7-10) Last Admin: 09/18/22 12:12 Dose: 0.25 mg Documented By: MAGALI Levalbuterol HCl (Levalbuterol Hcl 1.25 Mg/3 Ml Vial.Neb) 1.25 mg INHALE RQID [facility] Last Admin: 09/21/22 08:15 Dose: 1.25 mg Documented By: KRISHNA Montelukast Sodium (Montelukast Sodium 10 Mg Tablet) 10 mg PO BEDTIME [facility] Last Admin: 09/20/22 20:48 Dose: 10 mg Documented By: FELICIA Nitroglycerin (Nitroglycerin 0.4 Mg Tab.Subl) 0.4 mg SUBLINGUAL Q5M PRN PRN Reason: Chest Pain Patient Own ( Umeclidinium- Vilanterol [Anoro Ellipta] 62.5-25 Mcg /Actuation Bl 1 each INHALE RDAILY [facility] Last Admin: 09/20/22 10:38 Dose: 1 each Documented By: ALISA Omeprazole (Omeprazole 40 Mg Capsule.Dr) 40 mg PO DAILY@0630 [facility] Last Admin: 09/21/22 05:37 Dose: 40 mg Documented By: FELICIA Oxybutynin Chloride (Oxybutynin Chloride Er 5 Mg Tab.Er.24) 5 mg PO DAILY [facility] Last Admin: 09/21/22 08:18 Dose: 5 mg Documented By: GOVIND Oxycodone HCl (Oxycodone Hcl Immed Release 5 Mg Tablet) 5 mg PO Q4H PRN PRN Reason: Pain, Moderate (Pain Scale 4-6 Oxycodone HCl (Oxycodone Hcl Immed Release 5 Mg Tablet) 10 mg PO Q4H PRN PRN Reason: Pain, Severe (Pain Scale 7-10) Last Admin: 09/21/22 07:34 Dose: 10 mg Documented By: ALISA Pharmacy Consult (Consult Rx Perform Med Rec) 1 each MISCELLANE ONCE PRN PRN Reason: Consult order Polyethylene Glycol (Polyethylene Glycol 3350 17 Gm Powd.Pack) 17 gm PO DAILY [facility] Last Admin: 09/21/22 08:15 Dose: 17 gm Documented By: GOVIND Tobramycin Sulfate (Tobramycin Sulfate 80 Mg/2 Ml Vial) 300 mg INHALE RBID [facility] Last Admin: 09/21/22 08:15 Dose: 300 mg Documented By: KRISHNA Tramadol HCl (Tramadol Hcl 50 Mg Tablet) 50 mg PO BID [facility] Labs 09/17/22 18:14 09/18/22 04:48 Microbiology Microbiology Results: Microbiology 09/18/22 Unknown Urine Culture - Final Urine clean catch - Clean Catch Midstream Procedures Date of Service Date of Service: 09/21/22 Progress Note: A&P Assessment and plan (1) Small bowel obstruction: Status: Acute (2) Umbilical hernia with obstruction: Status: Acute (3) COPD (chronic obstructive pulmonary disease): Status: Acute Plan 81 year old female admitted with incarcerated umbilical hernia with obstruction now POD #3 s/p repair of incarcerated umbilical hernia with mesh. Continues to do fairly well post op but does not feel as if she is ready for discharge yet due to pain. Will resume home pain med schedule- tramadol BID with oxycodone 5mg PO q4h for breakthrough pain. IV analgesics dc in preparation for discharge. Cont abd binder. Will reassess later today for possible dc to home. PT rec home with services- pt lives with daughter. Patient comfortable with plan. Danis resumed yesterday. Time Spent With Patient Time: Total time managing care of this patient today ____ minutes. Quality Stroke Does the patient have a stroke diagnosis?: No VTE Prior VTE?: No VTE Risk Level:: Surgical - moderate VTE Device Contraindication: N/A - Device Ordered VTE Drug Contraindication: N/A - Med Ordered
[2022-09-21] MEDS: traMADoL HCL 50 MG TABLET PO ×2 (11:05→19:45)
--- NOTE | 2022-09-21 13:04 | MHC.CLN ---
F/U DIET=REGULAR S/P SURGERY FOR UMBILICAL HERNIA 09/18. STAGE II PRESSURE INJURY TO BUTTOCK. ENSURE BID TO PROMOTE WOUND HEALING. PROVIDES ADDITIONAL 700 KCALS, 40 G PROTEIN. APPEARS TO BE TOLERATING CURRENT DIET WITH INTAKE ABOUT 75%. FOLLOW FOR INTAKE AND WOUND HEALING.
[2022-09-21] MEDS: oxyCODONE HCl Immed Release 5 MG TABLET PO (13:41)
--- NOTE | 2022-09-21 15:18 | MHC.CM.PN ---
DP home Adult F.C. with her Daughter. DP PT services, provided by [facility], will resume. Patient may need BLS transport.
[2022-09-21 15:24] VITALS: BP 133/62; PULSE 75; RESP 17; TEMP 36.2; O2SAT 94
[2022-09-21 15:26] LABS: Appearance Urine Clear; Color Urine Yellow; Glucose Urine UA Negative (Negative); Leukocyte Esterase Urine Small (1+) (Negative); Nitrite Urine Negative (Negative); UMIC TRIGGER UACC YES; Urine Blood Negative (Negative); Urine Ketones Negative (Negative); Urine Protein Trace mg/dL (Neg-Trace)
[2022-09-21 15:38] LABS: Bacteria Urine None Seen (None Seen); UACC Culture Trigger YES; WBC Urine 0-5 /HPF (0-5)
[2022-09-21 19:18] VITALS: BP 120/56; PULSE 74; RESP 17; TEMP 36.1; O2SAT 96
[2022-09-21] MEDS: Montelukast Sodium 10 MG TABLET PO (19:45)
[2022-09-21 19:47] VITALS: PULSE 74; RESP 16
[2022-09-22 04:00] VITALS: BP 128/61; PULSE 71; RESP 16; TEMP 35.9; O2SAT 96
[2022-09-22] MEDS: oxyCODONE HCl Immed Release 5 MG TABLET PO ×2 (04:19→17:04)
[2022-09-22] MEDS: Omeprazole 40 MG CAPSULE.DR PO (05:46)
[2022-09-22 07:13] VITALS: BP 133/70; PULSE 73; RESP 18; TEMP 36.7; O2SAT 96
--- NOTE | 2022-09-22 08:25 | P.PNGS_ITS ---
Subjective Subjective Date of Service: 09/22/22 Interval history: Feeling better everyday. Less pain and overall improved with home tramadol. Passing flatus but still no BM. Daughter does not want patient going home until she has a bowel movement. Physical Exam Vital Signs: Vital Signs: Last Vital Signs Temp 98.1 F 09/22/22 07:13 Pulse 73 09/22/22 07:13 Resp 18 09/22/22 07:13 BP 133/70 09/22/22 07:13 Pulse Ox 96 09/22/22 07:13 O2 Del Method Room Air 09/22/22 07:13 O2 Flow Rate 2 09/20/22 08:00 BMI result Body Mass Index 29.2 Const: Orientation/consciousness: patient oriented x3 Resp: Effort & Inspection: normal respiratory effort GI: Inspection: No distended and Yes incision (clean) Palpation (GI): Soft to palpation, Tenderness to palpation present (GI) (mild, incisional), no guarding and not rigid Percussion: Yes normal to percussion Skin: General skin exam: no rashes or lesions noted Neuro: General: patient oriented x3 and moves all extremities Objective Data Active Medications Albuterol Sulfate (Albuterol Sulfate (0.083%) 2.5 Mg/3 Ml Vial.Neb) 2.5 mg INHALE Q4H PRN PRN Reason: Shortness of Breath/Wheezing Apixaban (Apixaban 2.5 Mg Tablet) 2.5 mg PO BID [facility] Last Admin: 09/21/22 19:46 Dose: 2.5 mg Documented By: ALEXANDER Diltiazem HCl (Diltiazem Hcl Cd 240 Mg Cap.Er.Deg) 240 mg PO DAILY [facility]; Protocol Last Admin: 09/21/22 08:18 Dose: 240 mg Documented By: GOVIND Docusate Sodium (Docusate Sodium 100 Mg Capsule) 100 mg PO BID [facility] Last Admin: 09/21/22 19:46 Dose: 100 mg Documented By: ALEXANDER Ferrous Sulfate (Ferrous Sulfate 324 Mg Tablet.Dr) 324 mg PO DAILY [facility] Last Admin: 09/21/22 08:20 Dose: 324 mg Documented By: GOVIND Fluticasone Propionate (Fluticasone Propionate Nasal 16 Gm [place]) 1 spray NOSTRIL-B BID [facility] Last Admin: 09/21/22 19:45 Dose: 1 spray Documented By: ALEXANDER Furosemide (Furosemide 20 Mg Tablet) 20 mg PO DAILY [facility]; Protocol Last Admin: 09/21/22 08:17 Dose: 20 mg Documented By: GOVIND Levalbuterol HCl (Levalbuterol Hcl 1.25 Mg/3 Ml Vial.Neb) 1.25 mg INHALE RQID [facility] Last Admin: 09/21/22 19:36 Dose: 1.25 mg Documented By: NIRMALA Montelukast Sodium (Montelukast Sodium 10 Mg Tablet) 10 mg PO BEDTIME [facility] Last Admin: 09/21/22 19:45 Dose: 10 mg Documented By: ALEXANDER Nitroglycerin (Nitroglycerin 0.4 Mg Tab.Subl) 0.4 mg SUBLINGUAL Q5M PRN PRN Reason: Chest Pain Patient Own ( Umeclidinium- Vilanterol [Anoro Ellipta] 62.5-25 Mcg /Actuation Bl 1 each INHALE RDAILY [facility] Last Admin: 09/21/22 11:03 Dose: 1 each Documented By: ALISA Comments: given late d/t pt request Omeprazole (Omeprazole 40 Mg Capsule.Dr) 40 mg PO DAILY@0630 [facility] Last Admin: 09/22/22 05:46 Dose: 40 mg Documented By: ALEXANDER Oxybutynin Chloride (Oxybutynin Chloride Er 5 Mg Tab.Er.24) 5 mg PO DAILY [facility] Last Admin: 09/21/22 08:18 Dose: 5 mg Documented By: GOVIND Oxycodone HCl (Oxycodone Hcl Immed Release 5 Mg Tablet) 5 mg PO Q4H PRN PRN Reason: Pain, Moderate (Pain Scale 4-6 Last Admin: 09/22/22 04:19 Dose: 5 mg Documented By: ALEXANDER Pharmacy Consult (Consult Rx Perform Med Rec) 1 each MISCELLANE ONCE PRN PRN Reason: Consult order Polyethylene Glycol (Polyethylene Glycol 3350 17 Gm Powd.Pack) 17 gm PO DAILY [facility] Last Admin: 09/21/22 08:15 Dose: 17 gm Documented By: GOVIND Tobramycin Sulfate (Tobramycin Sulfate 80 Mg/2 Ml Vial) 300 mg INHALE RBID [facility] Last Admin: 09/21/22 19:36 Dose: 300 mg Documented By: NIRMALA Tramadol HCl (Tramadol Hcl 50 Mg Tablet) 50 mg PO BID [facility] Last Admin: 09/21/22 19:45 Dose: 50 mg Documented By: ALEXANDER Labs 09/17/22 18:14 09/18/22 04:48 Labs: Laboratory Results - last 24 hr 09/21/22 13:51 Urine Color Yellow Urine Appearance Clear Urine pH 5.0 Ur Specific [place] 1.020 Urine Protein Trace Urine Glucose (UA) Negative Urine Ketones Negative Urine Blood Negative Urine Nitrite Negative Ur Leukocyte Esterase Small (1+) H Urine RBC 3-5 H Urine WBC 0-5 Ur Squamous Epith Cells 6-10 Urine Bacteria None Seen Hyaline Casts 6-10 Procedures Date of Service Date of Service: 09/22/22 Progress Note: A&P Assessment and plan (1) Umbilical hernia with obstruction: Status: Acute (2) Small bowel obstruction: Status: Acute (3) COPD (chronic obstructive pulmonary disease): Status: Acute Plan 81 year old female admitted with incarcerated umbilical hernia with obstruction now POD #4 s/p repair of incarcerated umbilical hernia with mesh. Continues to do fairly well post op and passing flatus but no BM. No further agitation per daughter, UA neg. Her abdomen remains very benign with clean incision. On colace, miralax. Will add lactulose, encouraged OOB/ambulation of halls x 4 today to promote BM. Will reassess later today, stable for dc to home with services if has BM. Time Spent With Patient Time: Total time managing care of this patient today ____ minutes. Quality Stroke Does the patient have a stroke diagnosis?: No VTE Prior VTE?: No VTE Risk Level:: Surgical - moderate VTE Device Contraindication: N/A - Device Ordered VTE Drug Contraindication: N/A - Med Ordered
[2022-09-22] MEDS: Tobramycin Sulfate 80 MG/2 ML VIAL 300 MG INHALE ×2 (08:26→20:02)
[2022-09-22] MEDS: levalbuterol HCL 1.25 MG/3 ML VIAL.NEB INHALE ×3 (08:26→20:02)
[2022-09-22] MEDS: polyethylene glycoL 3350 17 GM POWD.PACK PO (08:59)
[2022-09-22] MEDS: oxyBUTYnin chloride ER 5 MG TAB.ER.24 PO (08:59)
[2022-09-22] MEDS: Lactulose 20 GM/30 ML SOLUTION PO (08:59)
[2022-09-22] MEDS: Docusate Sodium 100 MG CAPSULE PO ×2 (08:59→20:49)
[2022-09-22] MEDS: dilTIAZem HCL CD 240 MG CAP.ER.DEG PO (08:59)
[2022-09-22] MEDS: Furosemide 20 MG TABLET PO (08:59)
[2022-09-22] MEDS: traMADoL HCL 50 MG TABLET PO ×2 (08:59→20:49)
[2022-09-22] MEDS: Ferrous Sulfate 324 MG TABLET.DR PO (08:59)
[2022-09-22] MEDS: Apixaban 2.5 MG TABLET PO ×2 (08:59→20:49)
[2022-09-22] MEDS: Fluticasone Propionate Nasal 16 GM SPRAY 1 SPRAY NOSTRIL-B ×2 (09:10→20:49)
[2022-09-22 11:09] VITALS: PULSE 77; RESP 18; O2SAT 96
--- NOTE | 2022-09-22 13:15 | PM.DS ---
DS: Providers Provider Date of Service: 09/23/22 Date of admission: 09/17/22 22:01 Date of discharge: 09/23/22 Primary care physician: Monica Arciniega MD Attending physician on admission: Carlin Sullivan DS: Diagnosis Discharge Diagnosis (1) Umbilical hernia with obstruction: Status: Acute (2) Small bowel obstruction: Status: Acute (3) COPD (chronic obstructive pulmonary disease): Status: Acute DS: Summary Hospital Course Hospital Course: HPI AT ADMISSION: Jenifer Mercado is a 81 year old female with a longstanding history of a known umbilical hernia who now presents with nausea, vomiting, abdominal pain at the hernia site , and abdominal distention. Because of increase in abdominal pain and nausea vomiting, she presents to the emergency room for further evaluation. Chart was reviewed and patient evaluated. Patient has a plethora of medical problems including atrial fibrillation for which she is on Eliquis, and COPD. HOSPITAL COURSE: She was admitted to the surgical service for further treatment of the incarcerated umbilical hernia with secondary obstruction. It was recommended to proceed with exploration and repair of incarcerated/strangulated umbilical hernia. The patient is on eliquis and Kcentra was given to reverse the anticoagulation affects. Hospitalist consult was obtained for management of her medical comorbidities. Her home meds were continued with the exception of eliquis which was held for surgical intervention. On 09/18/22, repair incarcerated umbilical hernia with Bard mesh was performed by Dr. Sullivan without complication. Intraop findings included incarcerated omental contents with 4cm defect. She had an uncomplicated but slow recovery course. Her diet was advanced as tolerated. She remained inpatient for 4 days post operatively for pain control and awaiting full return of GI function. She was started on a bowel regimen of colace, miralax and then lactulose. PT was consulted for discharge planning who recommended STR vs home with PT services. DTR refused STR and arrangements were made for VNA/PT. On the day of discharge, she was tolerating a solid diet, she had mild incisional pain controlled by PO analgesics and was moving her bowels. Her abdomen was benign with appropriate post op tenderness and clean incision. She was discharged to home on 09/22/22 with VNA and PT services. Time Spent with Patient Time attestation: Total time managing care of this patient today ____ minutes. Discharge coordination time: Less than 30 minutes Quality: Safe Use of Opioids Does Pt have an Active Cancer Diagnosis on the Problem List?: No Quality: Stroke Does the patient have a stroke diagnosis?: No Physical Exam Vital Signs: Vital Signs: Last Vital Signs Temp 98.1 F 09/22/22 07:13 Pulse 77 09/22/22 11:09 Resp 18 09/22/22 11:09 BP 133/70 09/22/22 07:13 Pulse Ox 96 09/22/22 07:13 O2 Del Method Room Air 09/22/22 07:13 O2 Flow Rate 2 09/20/22 08:00 BMI result Body Mass Index 29.2 Const: General: comfortable, no acute distress and alert Orientation/consciousness: patient oriented x3 Resp: Effort & Inspection: normal respiratory effort GI: Inspection: Yes incision (clean, ecchymosis inferiorly) Palpation (GI): Soft to palpation, Tenderness to palpation present (GI) (mild incisional), no guarding and not rigid Skin: General skin exam: no rashes or lesions noted Neuro: General: patient oriented x3 DS: Data Data Completed and Pending Completed studies during hospitalization [Text1]: 09/18/22 11:21 Surgical [PTH] Routine Umbilical hernia sac and contents, herniorrhaphy: - Mesothelial-lined fibrovascular and adipose tissue consistent with hernia sac. - Mature congested adipose tissue consistent with omentum. Procedures Transfusion of Nonautologous Red Blood Cells into Peripheral Vein, Percutaneous Approach (04/06/22) Labs on day of discharge: Laboratory Results - last 24 hr 09/21/22 13:51 Urine Color Yellow Urine Appearance Clear Urine pH 5.0 Ur Specific [place] 1.020 Urine Protein Trace Urine Glucose (UA) Negative Urine Ketones Negative Urine Blood Negative Urine Nitrite Negative Ur Leukocyte Esterase Small (1+) H Urine RBC 3-5 H Urine WBC 0-5 Ur Squamous Epith Cells 6-10 Urine Bacteria None Seen Hyaline Casts 6-10 Preliminary micro results at discharge 09/17/22 20:28 Blood Culture - Preliminary Blood - Venous No growth after 48 hours. 09/17/22 20:28 Blood Culture - Preliminary Blood - Venous No growth after 48 hours. Discharge Plan Discharge Anticipated Discharge Date/Time: 09/22/22 13:34 Patient Disposition: Home Health Service Discharge Diagnosis: incarcerated umbilical hernia, SBO Referrals: Monica Arciniega MD [Primary Care Provider] - 1 Week Carlin Sullivan MD [Physician] - 1 Week Discharge Medications: New oxycodone 5 mg tablet 5 mg PO Q4H PRN (Reason: breakthrough pain, severe) Qty: 14 0RF Rx Instructions: Partial Fill upon patient request. polyethylene glycol 3350 [Miralax] 17 gram/dose powder 17 g PO DAILY Qty: 119 0RF Rx Instructions: take daily until bowel habits return to normal Continued tobramycin in 0.225 % NaCl [John] 300 mg/5 mL solution for nebulization 300 mg inhalation BID 28 Days Qty: 280 6RF Rx Instructions: Take for 28 days as prescribed and then 28 days off ferrous sulfate 325 mg (65 mg iron) tablet 325 mg PO DAILY 0RF furosemide 20 mg tablet 1 tab PO DAILY Hold Instructions: Resume on 09/14/22. lisinopril 2.5 mg tablet 1 tab PO DAILY diltiazem HCl 240 mg Capsule,Extended Release 24hr 240 mg PO DAILY Qty: 30 0RF Protocol: Hold for SBP/HR < HOLD for SBP < : 90 HOLD for HR < : 60 Rx Instructions: replaces prior dose of 120 mg daily Anoro Ellipta 62.5-25 mcg/actuation blister with device 1 ea inhalation DAILY Eliquis 2.5 mg tablet 2.5 mg PO BID Ventolin aerosol inhalation BID docusate sodium 100 mg capsule 100 mg PO BEDTIME fluticasone propionate 50 mcg/actuation spray,suspension 1 spray intranasal BID montelukast 10 mg tablet 10 mg PO BEDTIME nitroglycerin 0.3 mg tablet, sublingual 0.3 mg sublingual Q5M PRN (Reason: Chest Pain) omeprazole 40 mg capsule,delayed release(DR/EC) 40 mg PO DAILY oxybutynin chloride 5 mg tablet extended release 24hr 5 mg PO DAILY tramadol 50 mg tablet 50 mg PO BID (DME) nebulizers Kit See Rx Instructions .ROUTE Rx Instructions: As directed levalbuterol HCl [Xopenex] 1.25 mg/3 mL solution for nebulization 1.25 mg inhalation QID 30 Days Qty: 360 11RF Discharge Orders: Discharge Order (Routine); Ordered 09/22/22 Ordered By: Mary Lyon Diet: Advance to usual diet Activity on Discharge: No heavy lifting Stand Alone Forms: Patient Portal Discharge page Activity Restrictions/Additional Instructions: Apply an ice pack for short intervals (20 minutes on, followed by at least 20 minutes off) for the first 2 days. Do not apply heat. Do not use creams, lotions, or topical antibiotics. These can cause infection or allergic reaction. Ok to shower. You have steri strips (small white cloth strips) covering your incision- these will fall off ~1 week. Follow up in office with Dr. Sullivan in 1 week. ([phone]) No heavy lifting (>10lbs) or strenuous activity! Call Your Doctor If: -Your temperature exceeds 101.5? F -You experience excessive pain or swelling -You have an unexpected reaction to medication -You have excessive bleeding -You experience continued vomiting/nausea -Your incision begins to separate -Your incision shows signs of infection such as increased redness, swelling, excessive pain, drainage (light blood or clear fluid is normal) or heat Care Plan Goals: Return to baseline health and resume normal activities following recovery period. Health Concerns: COPD anticoagulation incarcerated umbilical hernia, SBO Plan of Treatment: s/p repair of incarcerated umbilical hernia with mesh home with services F/u in office Resume home meds Assessment: Doing well post op
--- NOTE | 2022-09-22 13:48 | W.MHC.F2F ---
Service Date Service Date: 09/22/22 Encounter Date of encounter: 09/22/22 Reasons for Services Signs and symptoms assessed: abdominal pain, GI function, abdominal tenderness, incision appearance Reason for jail: postoperative assessment and/or care Reason for physical therapy: home safety and mobility and therapeutic exercises Homebound: Leaving the home is medically contraindicated at this time without the asist of a device and/or another person due th the listed conditions above and below. Reason homebound: weakness related to hospital stay and unable to drive Homebound supporting statement: 81 year old female with multiple medical comorbidities admitted for incarcerated umbilical hernia with obstruction who underwent repair of hernia with mesh. Assessed by PT who recommended home services for home safety, gait training and mobility. Home VNA for post op assessment,care. Certification: Based on the above findings, I certify that this patient is confined to the home and needs intermittent jail care, physical therapy and/or speech therapy, or continues to need occupational therapy. The patient is under my care, and I have initiated the establishment of the plan of care. The patient will be followed by a physician who will periodically review the plan of care. Time Spent With Patient Time: Total time managing care of this patient today ____ minutes.
--- NOTE | 2022-09-22 15:02 | MHC.CM.PN ---
PT WAS SUPPOSED TO DC HOME TODAY WITH [facility] FOR PT AND SN. 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 FRANCE AND POSSIBLY HER WILL BE IN THE ENSURE PT UNDERSTANDS THE PLAN PT WILL DC TOMORROW AT 1200 HOURS VIA BLS TO HOME WITH RESUMPTION OF HOME CARE AND NEW [facility] (PT/SN) SERVICES.
[2022-09-22 15:20] VITALS: BP 146/62; PULSE 99; RESP 16; TEMP 36.1; O2SAT 95
[2022-09-22 20:05] VITALS: PULSE 74; RESP 14; O2SAT 95
[2022-09-22] MEDS: Montelukast Sodium 10 MG TABLET PO (20:49)
[2022-09-23] MEDS: oxyCODONE HCl Immed Release 5 MG TABLET PO (01:58)
[2022-09-23 04:00] VITALS: BP 129/75; PULSE 71; RESP 16; TEMP 36; O2SAT 96
[2022-09-23] MEDS: Omeprazole 40 MG CAPSULE.DR PO (06:15)
--- NOTE | 2022-09-23 07:31 | P.PNGS_ITS ---
Subjective Subjective Date of Service: 09/23/22 <Mary Lyon PA-C - Last Filed: 09/23/22 07:36> 09/23/22 <Carlin Sullivan MD - Last Filed: 09/23/22 07:45> Interval history: Patient had BM yesterday. Discussed with daughter, was stable for discharge and she was subsequently discharged yesterday. Patient then refused to leave stating Im not leaving until I can walk. Today is the first time I've walked . Discussed with patient that perhaps the discharge plan should change a nd she should go to [facility] so she can regain her strength. Daughter and patient continue to refuse. Daughter then stated she is not ready for her to be discharged to home yet but will be ready for tomorrow. Discharged therefore cancelled. This morning, patient states she feels ready. <Mary Lyon PA-C - Last Filed: 09/23/22 07:36> Physical Exam Vital Signs: Vital Signs: Last Vital Signs Temp 96.8 F 09/23/22 04:00 Pulse 71 09/23/22 04:00 Resp 16 09/23/22 04:00 BP 129/75 09/23/22 04:00 Pulse Ox 96 09/23/22 04:00 O2 Del Method Room Air 09/23/22 04:00 O2 Flow Rate 2 09/20/22 08:00 BMI result Body Mass Index 29.2 <Mary Lyon PA-C - Last Filed: 09/23/22 07:36> Const: General: comfortable, no acute distress and alert <HAIDER Hess Last Filed: 09/23/22 07:36> Orientation/consciousness: patient oriented x3 <HAIDER Hess Last Filed: 09/23/22 07:36> Resp: Effort & Inspection: normal respiratory effort <HAIDER Hess Last Filed: 09/23/22 07:36> GI: Inspection: No distended and Yes incision (clean, ecchymosis ) <HAIDER Hess Last Filed: 09/23/22 07:36> Palpation (GI): Soft to palpation, nontender, no guarding and not rigid <Mary Lyon PA-C - Last Filed: 09/23/22 07:36> Skin: General skin exam: no rashes or lesions noted <Mary Lyon PA-C - Last Filed: 09/23/22 07:36> Neuro: General: patient oriented x3 and moves all extremities <Mary Lyon PA-C - Last Filed: 09/23/22 07:36> Objective Data Active Medications Albuterol Sulfate (Albuterol Sulfate (0.083%) 2.5 Mg/3 Ml Vial.Alysha) 2.5 mg INHALE Q4H PRN PRN Reason: Shortness of Breath/Wheezing Apixaban (Apixaban 2.5 Mg Tablet) 2.5 mg PO BID [facility] Last Admin: 09/22/22 20:49 Dose: 2.5 mg Documented By: ALEXANDER Diltiazem HCl (Diltiazem Hcl Cd 240 Mg Cap.Er.Deg) 240 mg PO DAILY [facility]; Protocol Last Admin: 09/22/22 08:59 Dose: 240 mg Documented By: SAIDA Docusate Sodium (Docusate Sodium 100 Mg Capsule) 100 mg PO BID [facility] Last Admin: 09/22/22 20:49 Dose: 100 mg Documented By: ALEXANDER Ferrous Sulfate (Ferrous Sulfate 324 Mg Tablet.) 324 mg PO DAILY [facility] Last Admin: 09/22/22 08:59 Dose: 324 mg Documented By: SAIDA Fluticasone Propionate (Fluticasone Propionate Nasal 16 Gm [place]) 1 spray NOSTRIL-B BID [facility] Last Admin: 09/22/22 20:49 Dose: 1 spray Documented By: ALEXANDER Furosemide (Furosemide 20 Mg Tablet) 20 mg PO DAILY [facility]; Protocol Last Admin: 09/22/22 08:59 Dose: 20 mg Documented By: SAIDA Lactulose (Lactulose 20 Gm/30 Ml Solution) 20 gm PO TID [facility] Last Admin: 09/22/22 20:50 Dose: Not Given Documented By: ALEXANDER Non-Admin Reason: loose stool Levalbuterol HCl (Levalbuterol Hcl 1.25 Mg/3 Ml Vial.Alysha) 1.25 mg INHALE RQID [facility] Last Admin: 09/22/22 20:02 Dose: 1.25 mg Documented By: SOURAV Montelukast Sodium (Montelukast Sodium 10 Mg Tablet) 10 mg PO BEDTIME [facility] Last Admin: 09/22/22 20:49 Dose: 10 mg Documented By: ALEXANDER Nitroglycerin (Nitroglycerin 0.4 Mg Tab.Subl) 0.4 mg SUBLINGUAL Q5M PRN PRN Reason: Chest Pain Patient Own ( Umeclidinium- Vilanterol [Anoro Ellipta] 62.5-25 Mcg /Actuation Bl 1 each INHALE RDAILY [facility] Last Admin: 09/22/22 11:44 Dose: Not Given Documented By: SAIDA Non-Admin Reason: respiratory Omeprazole (Omeprazole 40 Mg Capsule.Dr) 40 mg PO DAILY@0630 [facility] Last Admin: 09/23/22 06:15 Dose: 40 mg Documented By: ALEXANDER Oxybutynin Chloride (Oxybutynin Chloride Er 5 Mg Tab.Er.24) 5 mg PO DAILY [facility] Last Admin: 09/22/22 08:59 Dose: 5 mg Documented By: SAIDA Oxycodone HCl (Oxycodone Hcl Immed Release 5 Mg Tablet) 5 mg PO Q4H PRN PRN Reason: Pain, Moderate (Pain Scale 4-6 Last Admin: 09/23/22 01:58 Dose: 5 mg Documented By: ALEXANDER Pharmacy Consult (Consult Rx Perform Med Rec) 1 each MISCELLANE ONCE PRN PRN Reason: Consult order Polyethylene Glycol (Polyethylene Glycol 3350 17 Gm Powd.Pack) 17 gm PO DAILY [facility] Last Admin: 09/22/22 08:59 Dose: 17 gm Documented By: SAIDA Tobramycin Sulfate (Tobramycin Sulfate 80 Mg/2 Ml Vial) 300 mg INHALE RBID [facility] Last Admin: 09/22/22 20:02 Dose: 300 mg Documented By: SOURAV Tramadol HCl (Tramadol Hcl 50 Mg Tablet) 50 mg PO BID [facility] Last Admin: 09/22/22 20:49 Dose: 50 mg Documented By: ALEXANDER <Mary Lyon PA-C - Last Filed: 09/23/22 07:36> Labs CBC & Chem 7: 09/17/22 18:14 09/18/22 04:48 <Mary Lyon PA-C - Last Filed: 09/23/22 07:36> Microbiology Microbiology Results: Microbiology 09/17/22 20:28 Blood Culture - Final Blood - Venous No growth after 5 days. 09/17/22 20:28 Blood Culture - Final Blood - Venous No growth after 5 days. 09/21/22 Unknown Urine Culture - Final Urine clean catch - Urine mcdonald top <Mary Lyon PA-C - Last Filed: 09/23/22 07:36> Procedures Date of Service Date of Service: 09/23/22 <Mary Lyon PA-C - Last Filed: 09/23/22 07:36> Progress Note: A&P Assessment and plan (1) Umbilical hernia with obstruction: Status: Acute <HAIDER Hess Last Filed: 09/23/22 07:36> Assessment and Plan: 81 year old female admitted with incarcerated umbilical hernia with obstruction now POD #5 s/p repair of incarcerated umbilical hernia with mesh. Doing well with adequate pain control and return of GI function. Refusing STR. Plan for discharge to home with PT/VNA services. Patient in agreement this morning, ambulance picking tech for noon. Daughter aware. F/u in 1 week in office. <Mary Lyon PA-C - Last Filed: 09/23/22 07:36> Time Spent With Patient Time: Total time managing care of this patient today ____ minutes. <Mary Lyon PA-C - Last Filed: 09/23/22 07:36> Quality Stroke Does the patient have a stroke diagnosis?: No <Mary Lyon PA-C - Last Filed: 09/23/22 07:36> VTE Prior VTE?: No <HAIDER Hess Last Filed: 09/23/22 07:36> VTE Risk Level:: Surgical - moderate <Mary Lyon PA-C - Last Filed: 09/23/22 07:36> VTE Device Contraindication: N/A - Device Ordered <HAIDER Hess Last Filed: 09/23/22 07:36> VTE Drug Contraindication: N/A - Med Ordered <Mary Lyon PA-C - Last Filed: 09/23/22 07:36>
[2022-09-23 07:38] VITALS: BP 142/61; PULSE 71; RESP 20; TEMP 36.4; O2SAT 93
[2022-09-23] MEDS: Apixaban 2.5 MG TABLET PO (09:53)
[2022-09-23] MEDS: dilTIAZem HCL CD 240 MG CAP.ER.DEG PO (09:53)
[2022-09-23] MEDS: oxyBUTYnin chloride ER 5 MG TAB.ER.24 PO (09:53)
[2022-09-23] MEDS: Ferrous Sulfate 324 MG TABLET.DR PO (09:54)
[2022-09-23] MEDS: traMADoL HCL 50 MG TABLET PO (09:54)
[2022-09-23] MEDS: Furosemide 20 MG TABLET PO (09:54)
[2022-09-23] MEDS: Fluticasone Propionate Nasal 16 GM SPRAY 1 SPRAY NOSTRIL-B (10:02)
--- NOTE | 2022-09-23 10:17 | MHC.CM.PN ---
IMM 09/23/22 Patient is discharged to home with [facility]. She will transport via BLS @ 12pm today.
[2022-09-23] MEDS: levalbuterol HCL 1.25 MG/3 ML VIAL.NEB INHALE (11:53)
[2022-09-23 11:54] VITALS: PULSE 79; RESP 18; O2SAT 93
== END 2022-09-23 14:06 | disposition home health service (06) | DRG 354 ==
LOC: HO.ED 21:08 → HO.EDOVER 22:38 → HO.S3 09-18 00:17
PROVIDERS: Physician Assistant; Physician Assistant Medical; Physician Assistant Surgical; Admitting Provider Surgery; Emergency Provider Emergency Medicine; PCP Internal Medicine; Visit Provider Surgery
PROC: 0WUF0JZ Supplement Abdominal Wall with Synthetic Substitute, Open Approach (ICD-10-PCS; principal; 2022-09-18 10:00)
DX: K42.0 Umbilical hernia with obstruction, without gangrene (principal); I50.32 Chronic diastolic (congestive) heart failure; I25.10 Atherosclerotic heart disease of native coronary artery without angina pectoris; J44.9 Chronic obstructive pulmonary disease, unspecified; I48.0 Paroxysmal atrial fibrillation; Z20.822 Contact with and (suspected) exposure to COVID-19; Z87.891 Personal history of nicotine dependence; Z79.01 Long term (current) use of anticoagulants; Z79.51 Long term (current) use of inhaled steroids; Z79.899 Other long term (current) drug therapy
CPT/HCPCS: 0241U; 36415; 74177; 80051; 80053; 81001; 83605; 83690; 83735; 85025; 85610; 85730; 86850; 86900; 86901; 87040; 87086; 88302; 88304; 93005; 94640; 97110; 97116; 97162; 97530; 99285; C1781; J0330; J1170; J1643; J1940; J2270; J2405; J3010; J3260; Q9967

== ENCOUNTER → 2022-10-03 10:24 | Outpatient (BNVA) | payer OTHER, SELFPAY | PROVIDERS: PCP Internal Medicine; Visit Provider Hospitalist | DX: J44.1 Chronic obstructive pulmonary disease with (acute) exacerbation (principal); J15.1 Pneumonia due to Pseudomonas; R91.8 Other nonspecific abnormal finding of lung field; R06.02 Shortness of breath | CPT/HCPCS: 94618; 99212 ==

== ENCOUNTER → 2022-10-04 13:58 | Outpatient (BNVA) | payer OTHER, SELFPAY | PROVIDERS: PCP Internal Medicine; Visit Provider Surgery ==

== ENCOUNTER 2022-10-08 12:11 | Inpatient (IN) | payer OTHER, SELFPAY ==
[2022-10-08] VITALS (8 sets, daily range): BP systolic 102–150; BP diastolic 63–87; PULSE 88–127; RESP 12–27; TEMP 36.3–36.6; O2SAT 95–99; BMI 28.0
--- NOTE | ~2022-10-08 | XR_ITS ---
EXAMINATION: XR CHEST CLINICAL INFORMATION: Shortness of breath COMPARISON: Chest x-ray 09/01/2022. TECHNIQUE: Frontal view of the chest was obtained. FINDINGS: Median sternotomy. The cardiomediastinal silhouette is stable. No vascular congestion. Low lung volumes. Airway wall thickening. Streaky opacities at the lung bases are more pronounced than on the prior study. Small bilateral pleural effusions. Degenerative changes in the shoulders right greater than left. XR/XR chest 1V IMPRESSION: Findings consistent with chronic small airways disease disease. Increasing opacities at the lung bases favor atelectasis but pneumonia not excluded.
--- NOTE | 2022-10-08 12:38 | ECG_ITS ---
Test Reason : AFIB Blood Pressure : / mmHG Vent. Rate : 123 BPM Atrial Rate : 300 BPM P-R Int : 000 ms QRS Dur : 088 ms QT Int : 322 ms P-R-T Axes : 000 050 -73 degrees QTc Int : 460 ms Atrial flutter with variable A-V block Possible Anterior infarct (cited on or before 17-SEP-2022) Abnormal ECG When compared with ECG of 17-SEP-2022 18:17, Vent. rate has increased BY [address] no longer depressed in Anterior leads Nonspecific T wave abnormality now evident in Inferior leads Referred By: Navneet Daniel Electronically Signed By:Swapnil Bassett
--- NOTE | 2022-10-08 12:42 | ED.SOB ---
HPI - SOB/Dyspnea General Chief Complaint: Dyspnea Stated Complaint: SOB Time Seen by Provider: 10/08/22 12:27 Source: patient and EMS Mode of arrival: EMS Limitations: no limitations History of Present Illness HPI Narrative: 81-year-old female brought in by ambulance for shortness of breath evaluation. Patient with history of COPD not on supplemental oxygen at home, pneumonia, CAD, paroxysmal AFib patient is on Eliquis for anticoagulation, CHF presented with progressively worsening of shortness of breath since yesterday. Related Data Home Medications Medication Instructions Recorded Confirmed docusate sodium 100 mg capsule 100 mg PO BEDTIME 03/22/22 09/17/22 fluticasone propionate 50 1 spray intranasal BID 03/22/22 09/17/22 mcg/actuation nasal spray,suspension montelukast 10 mg tablet 10 mg PO BEDTIME 03/22/22 09/17/22 nebulizers 03/22/22 07/04/22 nitroglycerin 0.3 mg sublingual 0.3 mg sublingual Q5M PRN Chest 03/22/22 09/17/22 tablet Pain omeprazole 40 mg capsule,delayed 40 mg PO DAILY 03/22/22 09/17/22 release oxybutynin chloride 5 mg 5 mg PO DAILY 03/22/22 09/17/22 tablet,extended release 24 hr tramadol 50 mg tablet 50 mg PO BID 03/22/22 09/17/22 furosemide 20 mg tablet 1 tab PO DAILY 04/06/22 09/17/22 lisinopril 2.5 mg tablet 1 tab PO DAILY 04/06/22 09/17/22 umeclidinium 62.5 mcg-vilanterol 1 ea inhalation DAILY 05/24/22 09/17/22 25 mcg/actuation powdr for inhalation (Anoro Ellipta) apixaban 2.5 mg tablet (Eliquis) 2.5 mg PO BID 08/04/22 09/17/22 Ventolin inhalation BID 09/17/22 Previous Rx's Medication Instructions Recorded levalbuterol HCl 1.25 mg/3 mL 1.25 mg (3 mL) inhalation QID 30 03/22/22 solution for nebulization (Xopenex) days #360 mL tobramycin 300 mg/5 mL in 0.225 % 300 mg (5 mL) inhalation BID 28 03/25/22 sodium chloride for nebulization days #280 mL (John) diltiazem HCl 240 mg 240 mg PO DAILY #30 caps 04/14/22 capsule,extended release 24 hr polyethylene glycol 3350 17 17 g PO DAILY #119 grams 09/22/22 gram/dose oral powder (Miralax) ferrous sulfate 325 mg (65 mg 325 mg PO DAILY 09/28/22 iron) tablet ciclesonide 160 mcg/actuation 1 puff inhalation Q12H 30 days 10/03/22 aerosol inhaler (Alvesco) #6.1 grams prednisone 5 mg tablet 5 mg PO DAILY 30 days #30 tabs 10/03/22 fluticasone propionate 110 2 puff inhalation BID 30 days #12 10/07/22 mcg/actuation HFA aerosol inhaler grams (Flovent HFA) inhalational spacing device #1 ea 10/07/22 (Aerochamber MV spacer) Allergies Allergy/AdvReac Type Severity Reaction Status Date / Time carvedilol Allergy Shortness Verified 10/04/22 14:13 of Breath sertraline [From Zoloft] Allergy Shortness Verified 10/04/22 14:13 of Breath spironolactone Allergy Shortness Verified 10/04/22 14:13 of Breath Review of Systems Review of Systems: All other systems are reviewed and are negative Constitutional: Reports as per HPI and Reports no additional constitutional complaints Eyes: Reports as per HPI and Reports no additional eye complaints Reports system reviewed and no additional complaints, except as documented Cardiovascular: Reports as per HPI and Reports no additional cardiovascular complaints Respiratory: Reports as per HPI and Reports no additional respiratory complaints Gastrointestinal: Reports as per HPI and Reports no additional gastrointestinal complaints Genitourinary: Reports no additional female genitourinary complaints Musculoskeletal: Reports no additional musculoskeletal complaints Skin/Breast: Reports system reviewed and no additional complaints, except as docu Psychiatric: Reports no additional psychiatric complaints Endocrine: Reports no additional endocrine complaints Hematologic/Lymphatic: Reports no additional hematologic/lymphatic complaints Allergic/Immunologic: Reports no additional allergic/immunologic complaints Reports system reviewed and no additional complaints, except as documented and Reports Abnormal speech present [facility] Past Medical History Medical History A-fib Acute encephalopathy Acute hypokalemia Acute respiratory failure with hypoxia Anemia Anemia Aspiration pneumonia Atrial fibrillation with RVR Bronchiectasis CAD (coronary artery disease) Chronic dyspnea COPD (chronic obstructive pulmonary disease) COPD (chronic obstructive pulmonary disease) Dyspnea GI bleed Paroxysmal A-fib Pseudomonal pneumonia Pseudomonas respiratory infection Pulmonary nodules Surgical History H/O umbilical hernia repair (09/18/22) History of cholecystectomy History of hip replacement History of knee replacement History of quadruple bypass Family History Family History Other No family history of cancer Social History Social History Household Members: Family Housing: Longterm Are you a primary manager care management to a significant other at home: No Do you presently have visiting nurse or other home services: Yes Alcohol intake: former Patient Tobacco Use Status: Former Tobacco user Tobacco use type: Cigarette Smoked in Last 30 Days: No Use of substances other than those prescribed or required for medical reasons: No Advance Directives: Yes Advance Directives on File: Yes Advance Directives Date on File: 08/24/22 service: No Current occupational status: retired Physical Exam Vital Signs: Vital Signs: Last Vital Signs Temp 97.9 F 10/08/22 16:12 Pulse 126 H 10/08/22 16:12 Resp 12 10/08/22 16:12 BP 127/86 10/08/22 16:12 Pulse Ox 99 10/08/22 16:12 O2 Del Method Nasal Cannula 10/08/22 16:12 O2 Flow Rate 2 10/08/22 16:12 Oxygen Flow Rate 4 10/08/22 12:19 BMI result Body Mass Index 28.0 Vital signs have been reviewed as appeared to be correct. Blood pressure normal. Heart rate elevated. Respiration rate normal. Temperature normal. Oxygen saturation normal. Appearance: Alert. Oriented X3. No acute distress. Head: Normal external exam. Normocephalic. Atraumatic. No Reyes signs noted. No raccoon eyes noted Eyes: PERRLA. EOMI. Conjunctiva and sclera normal. Eyelids normal. ENT: TM's Normal. Pharynx normal. Uvula midline. Moist mucous membranes. No trismus noted. No drooling noted. No muffled voice noted. Neck: Normal inspection. Neck supple. FROM. No adenopathy. Thyroid Normal. No meningeal signs. No neck mass noted. CVS: Normal heart rate and rhythm. Heart sound normal. No murmurs noted. Pulses normal throughout. Respiratory: Mild respiratory distress. Painless inspiration. Diffuse expiratory wheezing with prolonged expiration, bilateral basal rales. Chest nontender. No accessory muscle usage noted or decreased air movement noted. Abdomen: Soft and nontender. Bowel sounds normal in all 4 quadrants. No distention noted. No organomegaly noted. No visible injury noted. Back: No CVA tenderness. Full range of motion noted. Skin: Skin warm and dry. Normal skin color. Normal skin turgor. No rashes/lesions/lacerations noted. Extremities: No lower extremity edema. Extremities exhibit normal range of motion. Extremities nontender. Neuro: Oriented X 3. Cranial nerve exam: II-XII are grossly intact No motor deficit. No sensory deficit. Reflexes normal. Course Course Course Narrative: 81-year-old female with history of COPD, CHF came in with rapid atrial fibrillation and shortness of breath. Patient received 1 dose of antibiotic prophylactically for COPD. Elevated troponin with no chest pain likely secondary to CHF. Lactic acidosis secondary to CHF and COPD no signs of septic shock. Rapid atrial fibrillation controlled with 1 dose of Cardizem. Will admit the patient for further management. Medications Administered Generic Name Dose Route Start Last Admin Trade Name Freq PRN Reason Stop Dose Admin Levofloxacin 750 mg in 150 mls @ 100 mls/hr 10/08/22 15:19 10/08/22 16:11 Levaquin IV 10/08/22 16:48 100 mls/hr ONCE ONE Administration Discontinued Medications Generic Name Dose Route Start Last Admin Trade Name Freq PRN Reason Stop Dose Admin Diltiazem HCl 20 mg 10/08/22 12:42 10/08/22 12:47 Diltiazem Hcl 50 Mg/10 Ml Vial IVPUSH 10/08/22 12:43 20 mg STAT STA Administration Furosemide 40 mg 10/08/22 12:37 10/08/22 12:48 Furosemide 40 Mg/4 Ml Vial IVPUSH 10/08/22 12:38 40 mg ONCE ONE Administration Protocol Levalbuterol HCl 1.25 mg 10/08/22 12:37 10/08/22 12:44 Levalbuterol Hcl 1.25 Mg/3 Ml Vial.Neb INHALE 04/29/23 12:38 1.25 mg ONCE ONE Administration Methylprednisolone Sodium Succinate 125 mg 10/08/22 12:37 10/08/22 12:48 Methylprednisolone Sod Succ 125 Mg/2 Ml Vial IVPUSH 10/08/22 12:38 125 mg ONCE ONE Administration Medical Decision Making Differential Diagnosis Differential Diagnoses: The differential diagnosis associated with the presentation includes (CHF, COPD, pneumonia, pneumothorax, electrolyte abnormalities, severe anemia.) Admission/Observation Consideration of admission/observation: Escalation of care including admission/observation considered Consult Healthcare Provider Management of the patient was discussed with: Hospitalist Lab Data MDM Lab Attestation statement: I reviewed the patient's lab results. 10/08/22 12:47 10/08/22 12:47 Labs: Lab Results 10/08/22 10/08/22 10/08/22 Range/Units 12:47 12:47 12:47 WBC 19.0 H (4.8-10.8) X10*3/uL RBC 3.32 L (4.20-5.50) X10*6/uL Hgb 10.7 L (12.0-16.0) g/dl Hct 33.1 L (37.0-47.0) % MCV 99.7 H (80.0-98.0) fL MCH 32.2 (27.0-33.0) pg MCHC 32.3 (31.0-35.0) g/dl RDW 14.8 (11.0-16.0) % Plt Count 353 (160-400) X10*3/uL MPV 10.6 (9.4-12.3) fL Immature Gran % (Auto) 0.7 H (0.0-0.4) % Neut % (Auto) 85.8 H (45-73) % Lymph % (Auto) 7.2 L (20-40) % [place] % (Auto) 5.3 (2-11) % Eos % (Auto) 0.5 (0-4) % Baso % (Auto) 0.5 (0-2) % Lymph # (Auto) 1.4 (1.2-4.9) X10*3/uL [place] # (Auto) 1.0 (0.1-1.2) X10*3/uL Eos # (Auto) 0.1 (0.0-0.4) X10*3/uL Baso # (Auto) 0.1 (0.0-0.2) X10*3/uL Abs Immat Gran (auto) 0.13 H (0.00-0.03) X10*3/uL Absolute Neuts (auto) 16.3 H (2.0-8.3) x10*3/uL Absolute Nucleated RBC 0.000 (0.0-0.012) X10*3/uL Nucleated RBC % (auto) 0.0 (0.0-0.2) /100WBC Sodium 138 (135-145) mmol/L Potassium 4.0 (3.3-5.1) mmol/L Chloride 99 (96-108) mmol/L Carbon Dioxide 26 (22-29) mmol/L Anion Gap 17 (12-20) BUN 11 (9-16) mg/dL Creatinine 0.96 (0.5-1.4) mg/dL Estim Creat Clear Calc 37.3 Estimated GFR 56 Random Glucose 182 H (60-115) mg/dL Lactic Acid (0.5-2.0) mmol/L Calcium 8.8 (8.4-10.2) mg/dL Total Bilirubin 1.0 (0.0-1.0) mg/dL Direct Bilirubin 0.3 (0.0-0.5) mg/dL AST 64 H (5-31) U/L ALT 34 H (0-31) U/L Alkaline Phosphatase 139 H (39-117) U/L Troponin I High Sens 134.5 H* D (<3.5-17.0) ng/L B-Natriuretic Peptide (<100) pg/mL Total Protein 6.6 (6.5-8.0) g/dL Albumin 3.4 L (3.5-5.0) g/dL Lipase 12 (8-78) U/L Influenza Type A (PCR) (Negative) Influenza Type B (PCR) (Negative) RSV RNA Qual (PCR) (Negative) SARS-CoV-2 RNA (RT-PCR) (Negative) 10/08/22 10/08/22 10/08/22 Range/Units 12:47 12:47 15:54 WBC (4.8-10.8) X10*3/uL RBC (4.20-5.50) X10*6/uL Hgb (12.0-16.0) g/dl Hct (37.0-47.0) % MCV (80.0-98.0) fL MCH (27.0-33.0) pg MCHC (31.0-35.0) g/dl RDW (11.0-16.0) % Plt Count (160-400) X10*3/uL MPV (9.4-12.3) fL Immature Gran % (Auto) (0.0-0.4) % Neut % (Auto) (45-73) % Lymph % (Auto) (20-40) % [place] % (Auto) (2-11) % Eos % (Auto) (0-4) % Baso % (Auto) (0-2) % Lymph # (Auto) (1.2-4.9) X10*3/uL [place] # (Auto) (0.1-1.2) X10*3/uL Eos # (Auto) (0.0-0.4) X10*3/uL Baso # (Auto) (0.0-0.2) X10*3/uL Abs Immat Gran (auto) (0.00-0.03) X10*3/uL Absolute Neuts (auto) (2.0-8.3) x10*3/uL Absolute Nucleated RBC (0.0-0.012) X10*3/uL Nucleated RBC % (auto) (0.0-0.2) /100WBC Sodium (135-145) mmol/L Potassium (3.3-5.1) mmol/L Chloride (96-108) mmol/L Carbon Dioxide (22-29) mmol/L Anion Gap (12-20) BUN (9-16) mg/dL Creatinine (0.5-1.4) mg/dL Estim Creat Clear Calc Estimated GFR Random Glucose (60-115) mg/dL Lactic Acid 3.2 H* (0.5-2.0) mmol/L Calcium (8.4-10.2) mg/dL Total Bilirubin (0.0-1.0) mg/dL Direct Bilirubin (0.0-0.5) mg/dL AST (5-31) U/L ALT (0-31) U/L Alkaline Phosphatase (39-117) U/L Troponin I High Sens (<3.5-17.0) ng/L B-Natriuretic Peptide 407 H (<100) pg/mL Total Protein (6.5-8.0) g/dL Albumin (3.5-5.0) g/dL Lipase (8-78) U/L Influenza Type A (PCR) NEGATIVE (Negative) Influenza Type B (PCR) NEGATIVE (Negative) RSV RNA Qual (PCR) NEGATIVE (Negative) SARS-CoV-2 RNA (RT-PCR) NEGATIVE (Negative) 10/08/22 Range/Units 15:54 WBC (4.8-10.8) X10*3/uL RBC (4.20-5.50) X10*6/uL Hgb (12.0-16.0) g/dl Hct (37.0-47.0) % MCV (80.0-98.0) fL MCH (27.0-33.0) pg MCHC (31.0-35.0) g/dl RDW (11.0-16.0) % Plt Count (160-400) X10*3/uL MPV (9.4-12.3) fL Immature Gran % (Auto) (0.0-0.4) % Neut % (Auto) (45-73) % Lymph % (Auto) (20-40) % [place] % (Auto) (2-11) % Eos % (Auto) (0-4) % Baso % (Auto) (0-2) % Lymph # (Auto) (1.2-4.9) X10*3/uL [place] # (Auto) (0.1-1.2) X10*3/uL Eos # (Auto) (0.0-0.4) X10*3/uL Baso # (Auto) (0.0-0.2) X10*3/uL Abs Immat Gran (auto) (0.00-0.03) X10*3/uL Absolute Neuts (auto) (2.0-8.3) x10*3/uL Absolute Nucleated RBC (0.0-0.012) X10*3/uL Nucleated RBC % (auto) (0.0-0.2) /100WBC Sodium (135-145) mmol/L Potassium (3.3-5.1) mmol/L Chloride (96-108) mmol/L Carbon Dioxide (22-29) mmol/L Anion Gap (12-20) BUN (9-16) mg/dL Creatinine (0.5-1.4) mg/dL Estim Creat Clear Calc Estimated GFR Random Glucose (60-115) mg/dL Lactic Acid (0.5-2.0) mmol/L Calcium (8.4-10.2) mg/dL Total Bilirubin (0.0-1.0) mg/dL Direct Bilirubin (0.0-0.5) mg/dL AST (5-31) U/L ALT (0-31) U/L Alkaline Phosphatase (39-117) U/L Troponin I High Sens 536.7 H* D (<3.5-17.0) ng/L B-Natriuretic Peptide (<100) pg/mL Total Protein (6.5-8.0) g/dL Albumin (3.5-5.0) g/dL Lipase (8-78) U/L Influenza Type A (PCR) (Negative) Influenza Type B (PCR) (Negative) RSV RNA Qual (PCR) (Negative) SARS-CoV-2 RNA (RT-PCR) (Negative) Independent Interpretation I performed an independent interpretation of an: Plain X-Ray (No acute intrathoracic pathology.) Radiology Impression Discussion of test interpretation with radiology: I have reviewed the radiologist's reading. Critical Care Time Critical Care Time Critical Care Time: Yes Total Critical Care Time: 60 Attestation: I spent 60 minutes providing critical care service to the patient, this including time spent at the bedside to evaluate the patient, reassess the patient, monitoring vital signs, review labs, and radiographic studies, counseling the patient/family, discussing the case with consultants, disposition the patient. Discharge Plan Discharge Clinical Impression: COPD (chronic obstructive pulmonary disease), Congestive heart failure Patient Disposition: Admitted As Inpatient
[2022-10-08] MEDS: levalbuterol HCL 1.25 MG/3 ML VIAL.NEB INHALE ×2 (12:44→20:40)
[2022-10-08] MEDS: dilTIAZem HCL 50 MG/10 ML VIAL 20 MG IVPUSH (12:47)
[2022-10-08] MEDS: methylPREDNISolone Sod Succ 125 MG/2 ML VIAL IVPUSH (12:48)
[2022-10-08] MEDS: Furosemide 40 MG/4 ML VIAL IVPUSH (12:48)
[2022-10-08 12:53] LABS: MANUAL DIFF FLAG NO
[2022-10-08 12:56] LABS: Basophils Absolute Auto 0.1 X10*3/uL (0.0-0.2); Basophils Percent Auto 0.5 % (0-2); Eosinophils Absolute Auto 0.1 X10*3/uL (0.0-0.4); Eosinophils Percent Auto 0.5 % (0-4); Hematocrit 33.1 % (37.0-47.0); Hemoglobin 10.7 g/dl (12.0-16.0); Imm Gran Abs Auto 0.13 X10*3/uL (0.00-0.03); Imm Gran Pct Auto 0.7 % (0.0-0.4); Lymphocytes Absolute Auto 1.4 X10*3/uL (1.2-4.9); Lymphocytes Percent Auto 7.2 % (20-40); Mean Corpuscular HGB Conc 32.3 g/dl (31.0-35.0); Mean Corpuscular Hemoglobin 32.2 pg (27.0-33.0); Mean Corpuscular Volume 99.7 fL (80.0-98.0); Mean Platelet Volume 10.6 fL (9.4-12.3); Monocytes Percent Auto 5.3 % (2-11); Neutrophils Absolute Auto 16.3 x10*3/uL (2.0-8.3); Neutrophils Percent Auto 85.8 % (45-73); Platelet Count 353 X10*3/uL (160-400); Red Blood Count 3.32 X10*6/uL (4.20-5.50); Red Cell Distribution Width 14.8 % (11.0-16.0)
--- NOTE | 2022-10-08 13:12 | PC.NURSE ---
Pt's heart rate 80-90's after medication. Daughter at bedside, IV established labs drawn and sent. Afib on the monior
[2022-10-08 13:15] LABS: B Type Natriuretic Peptide 407 pg/mL (<100)
[2022-10-08 13:23] LABS: Troponin-I High Sensitivity 134.5 ng/L (<3.5-17.0)
[2022-10-08 14:01] LABS: Influenza A PCR NEGATIVE (Negative); Influenza B PCR NEGATIVE (Negative); Resp Syncy Virus RNA Qual PCR NEGATIVE (Negative); SARS COV2 PCR INHOUSE NEGATIVE (Negative)
[2022-10-08 14:46] LABS: Alanine Aminotransferase 34 U/L (0-31); Albumin Level 3.4 g/dL (3.5-5.0); Alkaline Phosphatase 139 U/L (39-117); Anion Gap 17 (12-20); Aspartate Amino Transferase 64 U/L (5-31); Bilirubin Direct 0.3 mg/dL (0.0-0.5); Blood Urea Nitrogen 11 mg/dL (9-16); Calcium 8.8 mg/dL (8.4-10.2); Carbon Dioxide 26 mmol/L (22-29); Chloride 99 mmol/L (96-108); Creatinine Clr Calc Pharmacy 37.3; Estimated Glomerular Filt Rate 56; Glucose Random 182 mg/dL (60-115); Lipase 12 U/L (8-78); Sodium 138 mmol/L (135-145); Total Protein 6.6 g/dL (6.5-8.0)
--- NOTE | 2022-10-08 15:26 | PM.IMHP ---
History of Present Illness Date of Service: 10/08/22 Chief Complaint: Shortness of breath Accompanied by her daughter Rogelio, an 81-year-old female patient with a medical history of COPD, history pulmonary pseudomonas on inhaled Tobramycin, coronary artery disease, paroxysmal atrial fibrillation (currently anticoagulated with Eliquis), unspecified congestive heart failure, and a recent small bowel obstruction followed by bowel resection presents with progressively worsening shortness of breath for several days. Despite being prescribed oxygen by her central office operator, her condition has not improved. She is also experiencing coughing but without producing any sputum, and reports no fever or chills, nor chest pain. The patient had been on Prednisone 5mg daily, but stopped taking it on the advice of the surgeon to promote surgical wound healing. Her influenza, RSV, and Covid tests all came back negative, WBC is 19, her troponin I levels are elevated despite the absence of chest pain. Her BNP level is 407, which is above her baseline, and an ECG shows atrial fibrillation with no discernible MASSIMO changes. A CXR reveals changes consistent with small airway disease. Review of Systems Review of Systems: Gen: no fever Resp: + sob, + cough CV: no chest, +DOMINGO, n+ leg edema GI: No n/v, no abd pain Neuro: No confusion Yes all other systems are reviewed and are negative [facility] Medical History A-fib Acute encephalopathy Acute hypokalemia Acute respiratory failure with hypoxia Anemia Anemia Aspiration pneumonia Atrial fibrillation with RVR Bronchiectasis CAD (coronary artery disease) Chronic dyspnea COPD (chronic obstructive pulmonary disease) COPD (chronic obstructive pulmonary disease) Dyspnea GI bleed Paroxysmal A-fib Pseudomonal pneumonia Pseudomonas respiratory infection Pulmonary nodules Family History Other No family history of cancer Surgical History H/O umbilical hernia repair (09/18/22) History of cholecystectomy History of hip replacement History of knee replacement History of quadruple bypass Social History Household Members: Family Housing: House Are you a primary healthcare corporate account director to a significant other at home: No Do you presently have visiting nurse or other home services: Yes Alcohol intake: former Patient Tobacco Use Status: Tobacco use Unknown Tobacco use type: Cigarette Smoked in Last 30 Days: No Use of substances other than those prescribed or required for medical reasons: No Advance Directives: Yes Advance Directives on File: Yes Advance Directives Date on File: 08/24/22 Do you have thoughts of harming others: None Do you have a plan to hurt others: No Plan Patient : No : No Poor oral hygiene: No service: No Current occupational status: retired Meds Allergies Allergy/AdvReac Type Severity Reaction Status Date / Time carvedilol Allergy Shortness Verified 10/04/22 14:13 of Breath sertraline [From Zoloft] Allergy Shortness Verified 10/04/22 14:13 of Breath spironolactone Allergy Shortness Verified 10/04/22 14:13 of Breath Active Medications: Current Medications Levofloxacin (Levaquin) 750 mg in 150 mls @ 100 mls/hr IV ONCE ONE Stop: 10/08/22 16:48 Home Medications Medication Instructions Recorded Confirmed Last Taken Type docusate sodium 100 mg capsule 100 mg PO BEDTIME 03/22/22 10/08/22 10/08/22 History fluticasone propionate 50 1 spray intranasal BID 03/22/22 10/08/22 10/08/22 History mcg/actuation nasal spray,suspension montelukast 10 mg tablet 10 mg PO BEDTIME 03/22/22 10/08/22 10/08/22 History nebulizers 03/22/22 07/04/22 Unknown History nitroglycerin 0.3 mg sublingual 0.3 mg sublingual Q5M PRN Chest 03/22/22 10/08/22 10/08/22 History tablet Pain omeprazole 40 mg capsule,delayed 40 mg PO DAILY 03/22/22 10/08/22 10/08/22 History release oxybutynin chloride 5 mg 5 mg PO DAILY 03/22/22 10/08/22 10/08/22 History tablet,extended release 24 hr tramadol 50 mg tablet 50 mg PO BID 03/22/22 10/08/22 10/08/22 History furosemide 20 mg tablet 1 tab PO DAILY 04/06/22 10/08/22 10/08/22 History lisinopril 2.5 mg tablet 1 tab PO DAILY 04/06/22 10/08/22 10/08/22 History umeclidinium 62.5 mcg-vilanterol 1 ea inhalation DAILY 05/24/22 10/08/22 10/08/22 History 25 mcg/actuation powdr for inhalation (Anoro Ellipta) apixaban 2.5 mg tablet (Eliquis) 2.5 mg PO BID 08/04/22 10/08/22 10/08/22 History Ventolin 2 puff inhalation Q6H PRN Wheezing 09/17/22 10/08/22 Unknown History Physical Exam Vital Signs and Narrative: Vital Signs: Last Vital Signs Temp 97.9 F 10/08/22 14:13 Pulse 98 10/08/22 14:13 Resp 18 10/08/22 14:13 BP 126/63 10/08/22 14:13 Pulse Ox 98 10/08/22 14:13 O2 Del Method Room Air 10/08/22 14:13 Oxygen Flow Rate 4 10/08/22 12:19 BMI result Body Mass Index 28.0 Const: Other: Constitutional: Alert, in no distress Mental Status: Oriented to person, place and time. Eyes: Pupils are equal, round and reactive to light. Ear, Nose and Throat: Oropharynx clear, mucous membranes moist. Ears and nose without eformities. Trachea midline. Respiratory: Clear to auscultation. No wheezing, rales or rhonchi. Cardiovascular: S1 S2 iregular iregular. No murmurs, rubs or gallops, Gastrointestinal: Abdomen soft, non-tender, non-distended. Normal bowel sounds, recent surgical site is healing well Neurologic: Cranial nerves II-XII grossly intact. No focal neurological deficits. Moves all extremities spontaneously.? Skin: No rashes or lesions.?billateral chronic venous stasis changes Musculoskeletal: No cyanosis or clubbing. Psychiatric: Normal mood and affect? Results Labs 10/08/22 12:47 10/08/22 12:47 Labs: Laboratory Results - last 24 hr 10/08/22 10/08/22 10/08/22 12:47 12:47 12:47 MCV 99.7 H MCH 32.2 MCHC 32.3 RDW 14.8 Plt Count 353 MPV 10.6 Immature Gran % (Auto) 0.7 H Neut % (Auto) 85.8 H Lymph % (Auto) 7.2 L [place] % (Auto) 5.3 Eos % (Auto) 0.5 Baso % (Auto) 0.5 Lymph # (Auto) 1.4 [place] # (Auto) 1.0 Eos # (Auto) 0.1 Baso # (Auto) 0.1 Abs Immat Gran (auto) 0.13 H Absolute Neuts (auto) 16.3 H Absolute Nucleated RBC 0.000 Nucleated RBC % (auto) 0.0 Anion Gap 17 Estim Creat Clear Calc 37.3 Estimated GFR 56 Random Glucose 182 H Calcium 8.8 Total Bilirubin 1.0 Direct Bilirubin 0.3 AST 64 H ALT 34 H Alkaline Phosphatase 139 H Troponin I High Sens 134.5 H* D B-Natriuretic Peptide Total Protein 6.6 Albumin 3.4 L Lipase 12 Influenza Type A (PCR) Influenza Type B (PCR) RSV RNA Qual (PCR) SARS-CoV-2 RNA (RT-PCR) 10/08/22 10/08/22 12:47 12:47 MCV MCH MCHC RDW Plt Count MPV Immature Gran % (Auto) Neut % (Auto) Lymph % (Auto) [place] % (Auto) Eos % (Auto) Baso % (Auto) Lymph # (Auto) [place] # (Auto) Eos # (Auto) Baso # (Auto) Abs Immat Gran (auto) Absolute Neuts (auto) Absolute Nucleated RBC Nucleated RBC % (auto) Anion Gap Estim Creat Clear Calc Estimated GFR Random Glucose Calcium Total Bilirubin Direct Bilirubin AST ALT Alkaline Phosphatase Troponin I High Sens B-Natriuretic Peptide 407 H Total Protein Albumin Lipase Influenza Type A (PCR) NEGATIVE Influenza Type B (PCR) NEGATIVE RSV RNA Qual (PCR) NEGATIVE SARS-CoV-2 RNA (RT-PCR) NEGATIVE Imaging Radiologist's Impressions: Impressions Chest X-Ray 10/08/22 13:31 IMPRESSION: Findings consistent with chronic small airways disease disease. Increasing opacities at the lung bases favor atelectasis but pneumonia not excluded. Assessment and Plan (1) COPD (chronic obstructive pulmonary disease): Qualifiers: COPD type: COPD with acute exacerbation Qualified Code(s): J44.1 - Chronic obstructive pulmonary disease with (acute) exacerbation Status: Acute (2) Heart failure: Status: Acute Plan 81-year-old female with COPD, history of pseudomonal pneumonia, coronary artery disease, paroxysmal atrial fibrillation anticoagulated with Eliquis, congestive heart failure admitted for COPD exacerbation, aspiration pneumonia, and atrial fibrillation with RVR. # COPD exacerbation and Probably heart failure #COPD-exacerbattion -Bronchodilators by Neb -Steroid -O2 #Unspecified Heart failure, EF unknown -BNP > baseline -IV diureteics -Echo on monday -cardiology consult #Elevated troponin I--troponin likely related to copd but will repeat level and go from there, he's already on eliquis and there is anemia and frail skin with multiple bruses and would avoid additional anticoagulation at this time, cardiology consult added # paroxysmal atrial fibrillation, rate is controlled -resume Eliquis 2.5 mg b.i.d. for anticoagulation -continue cardizem -monitor on telemetry # chronic normocytic anemia, H/H stable # CAD-no anginal chest pain -mild increase in troponin I, repeat -EKG without any ST or ST depressions DVT prophylaxis-on Eliquis Full code, plan of care discussed with the patient and the daughter at the bedside. Patient requires inpatient stay of at least 2 midnights for management of COPD exacerbation with IV steroid and Heart failure that is requiring IV diuretics and more work up Time Spent With Patient Time: Total time managing care of this patient today ____ minutes. Quality Stroke Does the patient have a stroke diagnosis?: No VTE Prior VTE?: No VTE Risk Level:: Medical - moderate - high VTE Device Contraindication: Treatment Not Indicated VTE Drug Contraindication: N/A - Med Ordered
--- NOTE | 2022-10-08 16:02 | PC.NURSE ---
Blood cultures and lactic acid obtaine, daughter remains at bedside
[2022-10-08] MEDS: levoFLOXacin/D5W 750 MG/150 ML PIGGYBACK 100 MG IV (16:11)
[2022-10-08 16:18] LABS: Lactic Acid 3.2 mmol/L (0.5-2.0)
[2022-10-08 16:26] LABS: Troponin-I High Sensitivity 536.7 ng/L (<3.5-17.0)
--- NOTE | 2022-10-08 16:57 | PHA.MEDREC ---
Pharmacy Consult ? Medication Reconciliation Pharmacy has completed the medication reconciliation. Patient states they were off prednisone for a bit but needed to restart. She has not picked up any flovent or alvesco yet. Sandor
[2022-10-08 17:57] LABS: Reflex Lactate? Lactic Acid Added
[2022-10-08] MEDS: traMADoL HCL 50 MG TABLET PO (21:15)
[2022-10-08] MEDS: Montelukast Sodium 10 MG TABLET PO (21:15)
[2022-10-08] MEDS: Docusate Sodium 100 MG CAPSULE PO (21:16)
[2022-10-08] MEDS: Melatonin 3 MG TABLET PO (21:17)
[2022-10-08] MEDS: Acetaminophen 325 MG TABLET 650 MG PO (21:17)
[2022-10-08] MEDS: Apixaban 2.5 MG TABLET PO (21:17)
[2022-10-09] VITALS (8 sets, daily range): BP systolic 104–136; BP diastolic 65–97; PULSE 80–101; RESP 16–18; TEMP 36.1–36.6; O2SAT 96–100
[2022-10-09 00:27] LABS: ~Lactic Acid-LAB USE ONLY 2.8 mmol/L (0.5-2.0)
--- NOTE | 2022-10-09 00:40 | PC.NURSE ---
1929 Phlebotomy arrived to draw labs for patient , patient's daughter refused because she had just been poked too many times in the ED , this RN notified the [employer]. Lab explained they will need to be taken at a later time daughter and patient agreed to later draw. 2001 Patient had 7 beats of V tach notified via tiger text , acknowledged with response ok . 0029 Patient had critical lab result Lacticv acid 2.8 notified MD via tiger text acknowledged with reponse ok no new orders given.
[2022-10-09 02:09] LABS: Reflex Lactate? 2 Y
[2022-10-09 02:45] LABS: ~Lactic Acid-LAB USE ONLY 1.7 mmol/L (0.5-2.0)
[2022-10-09] MEDS: Acetaminophen 325 MG TABLET 650 MG PO ×2 (03:20→10:43)
[2022-10-09 06:27] LABS: MANUAL DIFF FLAG NO
[2022-10-09 06:55] LABS: Alanine Aminotransferase 26 U/L (0-31); Albumin Level 3.1 g/dL (3.5-5.0); Alkaline Phosphatase 117 U/L (39-117); Anion Gap 12 (12-20); Aspartate Amino Transferase 28 U/L (5-31); Basophils Percent Auto 0.1 % (0-2); Bilirubin Total 0.7 mg/dL (0.0-1.0); Blood Urea Nitrogen 20 mg/dL (9-16); Calcium 8.5 mg/dL (8.4-10.2); Carbon Dioxide 30 mmol/L (22-29); Chloride 98 mmol/L (96-108); Estimated Glomerular Filt Rate 40; Glucose Random 206 mg/dL (60-115); Hematocrit 27.1 % (37.0-47.0); Hemoglobin 8.9 g/dl (12.0-16.0); Imm Gran Abs Auto 0.05 X10*3/uL (0.00-0.03); Imm Gran Pct Auto 0.7 % (0.0-0.4); Lymphocytes Absolute Auto 0.8 X10*3/uL (1.2-4.9); Lymphocytes Percent Auto 11.5 % (20-40); Mean Corpuscular HGB Conc 32.8 g/dl (31.0-35.0); Mean Corpuscular Hemoglobin 32.1 pg (27.0-33.0); Mean Corpuscular Volume 97.8 fL (80.0-98.0); Mean Platelet Volume 11.1 fL (9.4-12.3); Monocytes Absolute Auto 0.3 X10*3/uL (0.1-1.2); Monocytes Percent Auto 3.5 % (2-11); Neutrophils Absolute Auto 6.1 x10*3/uL (2.0-8.3); Neutrophils Percent Auto 84.2 % (45-73); Platelet Count 205 X10*3/uL (160-400); Potassium 3.7 mmol/L (3.3-5.1); Red Blood Count 2.77 X10*6/uL (4.20-5.50); Red Cell Distribution Width 14.3 % (11.0-16.0); Sodium 136 mmol/L (135-145); Total Protein 5.6 g/dL (6.5-8.0); White Blood Count 7.2 X10*3/uL (4.8-10.8)
[2022-10-09 08:31] LABS: Troponin-I High Sensitivity 579.4 ng/L (<3.5-17.0)
[2022-10-09] MEDS: Tobramycin Sulfate 80 MG/2 ML VIAL 300 MG INHALE ×2 (08:47→19:54)
[2022-10-09] MEDS: levalbuterol HCL 1.25 MG/3 ML VIAL.NEB INHALE ×3 (08:47→19:54)
[2022-10-09] MEDS: Fluticasone Propionate Nasal 16 GM SPRAY 1 SPRAY NOSTRIL-B ×2 (09:22→21:03)
[2022-10-09] MEDS: oxyBUTYnin chloride ER 5 MG TAB.ER.24 PO (09:23)
[2022-10-09] MEDS: traMADoL HCL 50 MG TABLET PO ×2 (09:24→21:02)
[2022-10-09] MEDS: Ferrous Sulfate 324 MG TABLET.DR PO (09:26)
[2022-10-09] MEDS: predniSONE 5 MG TABLET PO (09:26)
[2022-10-09] MEDS: lisinopriL 2.5 MG TABLET PO (09:26)
[2022-10-09] MEDS: Apixaban 2.5 MG TABLET PO ×2 (09:26→21:03)
[2022-10-09] MEDS: dilTIAZem HCL CD 240 MG CAP.ER.DEG PO (09:26)
[2022-10-09] MEDS: Furosemide 40 MG/4 ML VIAL IVPUSH (09:27)
[2022-10-09] MEDS: polyethylene glycoL 3350 17 GM POWD.PACK PO (09:27)
[2022-10-09] MEDS: 0.9 % Sodium Chloride Flush 3 ML SYRINGE IVFLUSH ×2 (09:27→16:50)
--- NOTE | 2022-10-09 11:09 | HO.PM.IMPN ---
Subjective Subjective Date of Service: 10/09/22 Interval History: f/u on sob, copd heart failure and possible NSTEMI Interval history: has complained of some chest discomfort, troponin I has trended up, ECG show afib and Non specific st t changes Review of Systems +sob, some chest discomfort Physical Exam Vital Signs: Vital Signs: Last Vital Signs Temp 97.4 F 10/09/22 08:00 Pulse 92 10/09/22 08:49 Resp 18 10/09/22 08:49 BP 127/67 10/09/22 08:00 Pulse Ox 100 10/09/22 08:00 O2 Del Method Nasal Cannula 10/09/22 08:00 O2 Flow Rate 2 10/09/22 08:00 Oxygen Flow Rate 4 10/08/22 12:19 BMI result Body Mass Index 28.0 Objective Data Active Medications Acetaminophen (Acetaminophen 325 Mg Tablet) 650 mg PO Q6H PRN PRN Reason: Pain, Mild (Pain Scale 1-3) Last Admin: 10/09/22 10:43 Dose: 650 mg Documented By: LÁZARO Albuterol Sulfate (Albuterol Sulfate 90 Mcg 8 Gm Inhaler) 2 puff INHALE Q6H PRN PRN Reason: Wheezing Apixaban (Apixaban 2.5 Mg Tablet) 2.5 mg PO BID [facility] Last Admin: 10/09/22 09:26 Dose: 2.5 mg Documented By: LÁZARO Diltiazem HCl (Diltiazem Hcl Cd 240 Mg Cap.Er.Deg) 240 mg PO DAILY [facility]; Protocol Last Admin: 10/09/22 09:26 Dose: 240 mg Documented By: LÁZARO Docusate Sodium (Docusate Sodium 100 Mg Capsule) 100 mg PO BEDTIME [facility] Last Admin: 10/08/22 21:16 Dose: 100 mg Documented By: NARENDRA Ferrous Sulfate (Ferrous Sulfate 324 Mg Tablet.Dr) 324 mg PO DAILY [facility] Last Admin: 10/09/22 09:26 Dose: 324 mg Documented By: LÁZARO Fluticasone Propionate (Fluticasone Propionate Nasal 16 Gm [place]) 1 spray NOSTRIL-B BID [facility] Last Admin: 10/09/22 09:22 Dose: 1 spray Documented By: LÁZARO Furosemide (Furosemide 40 Mg/4 Ml Vial) 40 mg IVPUSH DAILY [facility]; Protocol Last Admin: 10/09/22 09:27 Dose: 40 mg Documented By: LÁZARO Levalbuterol HCl (Levalbuterol Hcl 1.25 Mg/3 Ml Vial.Neb) 1.25 mg INHALE QID [facility] Last Admin: 10/09/22 08:47 Dose: 1.25 mg Documented By: KAY Lisinopril (Lisinopril 2.5 Mg Tablet) 2.5 mg PO DAILY [facility]; Protocol Last Admin: 10/09/22 09:26 Dose: 2.5 mg Documented By: LÁZARO Melatonin (Melatonin 3 Mg Tablet) 3 mg PO BEDTIME PRN PRN Reason: Insomnia Last Admin: 10/08/22 21:17 Dose: 3 mg Documented By: NARENDRA Montelukast Sodium (Montelukast Sodium 10 Mg Tablet) 10 mg PO BEDTIME [facility] Last Admin: 10/08/22 21:15 Dose: 10 mg Documented By: NARENDRA Nitroglycerin (Nitroglycerin 2 % Oint 1 Gm Packet) 0.5 inch TRANSDERMA RQ6H WHILE AWAKE PRN PRN Reason: Cervical Ripening Pt Own (Umeclidinium -Vilanterol [Anoro Ellipta] 62.5-25 Mcg /Actuation Bl 1 each INHALE RDAILY [facility] Omeprazole (Omeprazole 40 Mg Capsule.Dr) 40 mg PO DAILY@0630 [facility] Last Admin: 10/09/22 05:46 Dose: Not Given Documented By: NARENDRA Non-Admin Reason: Patient Asleep Ondansetron HCl (Ondansetron Hcl 4 Mg/2 Ml Vial) 4 mg IVPUSH Q8H PRN PRN Reason: Nausea and Vomiting Oxybutynin Chloride (Oxybutynin Chloride Er 5 Mg Tab.Er.24) 5 mg PO DAILY [facility] Last Admin: 10/09/22 09:23 Dose: 5 mg Documented By: LÁZARO Polyethylene Glycol (Polyethylene Glycol 3350 17 Gm Powd.Pack) 17 gm PO DAILY [facility] Last Admin: 10/09/22 09:27 Dose: 17 gm Documented By: LÁZARO Prednisone (Prednisone 5 Mg Tablet) 5 mg PO DAILY [facility] Last Admin: 10/09/22 09:26 Dose: 5 mg Documented By: LÁZARO Sodium Chloride (0.9 % Sodium Chloride Flush 3 Ml Syringe) 3 ml IVFLUSH QSHIFT [facility] Last Admin: 10/09/22 09:27 Dose: 3 ml Documented By: LÁZARO Tobramycin Sulfate (Tobramycin Sulfate 80 Mg/2 Ml Vial) 300 mg INHALE RBID [facility] Last Admin: 10/09/22 08:47 Dose: 300 mg Documented By: KAY Tramadol HCl (Tramadol Hcl 50 Mg Tablet) 50 mg PO BID [facility] Last Admin: 10/09/22 09:24 Dose: 50 mg Documented By: LÁZARO Labs 10/09/22 06:16 10/09/22 06:16 Labs: Laboratory Results - last 24 hr 10/08/22 10/08/22 10/08/22 12:47 12:47 12:47 MCV 99.7 H MCH 32.2 MCHC 32.3 RDW 14.8 Plt Count 353 MPV 10.6 Immature Gran % (Auto) 0.7 H Neut % (Auto) 85.8 H Lymph % (Auto) 7.2 L [place] % (Auto) 5.3 Eos % (Auto) 0.5 Baso % (Auto) 0.5 Lymph # (Auto) 1.4 [place] # (Auto) 1.0 Eos # (Auto) 0.1 Baso # (Auto) 0.1 Abs Immat Gran (auto) 0.13 H Absolute Neuts (auto) 16.3 H Absolute Nucleated RBC 0.000 Nucleated RBC % (auto) 0.0 Anion Gap 17 Estim Creat Clear Calc 37.3 Estimated GFR 56 Random Glucose 182 H Lactic Acid Lactic Acid F/U @ 2Hr Lactic Acid F/U @ 4Hr Calcium 8.8 Total Bilirubin 1.0 Direct Bilirubin 0.3 AST 64 H ALT 34 H Alkaline Phosphatase 139 H Troponin I High Sens 134.5 H* D B-Natriuretic Peptide Total Protein 6.6 Albumin 3.4 L Lipase 12 Influenza Type A (PCR) Influenza Type B (PCR) RSV RNA Qual (PCR) SARS-CoV-2 RNA (RT-PCR) 10/08/22 10/08/22 10/08/22 12:47 12:47 15:54 MCV MCH MCHC RDW Plt Count MPV Immature Gran % (Auto) Neut % (Auto) Lymph % (Auto) [place] % (Auto) Eos % (Auto) Baso % (Auto) Lymph # (Auto) [place] # (Auto) Eos # (Auto) Baso # (Auto) Abs Immat Gran (auto) Absolute Neuts (auto) Absolute Nucleated RBC Nucleated RBC % (auto) Anion Gap Estim Creat Clear Calc Estimated GFR Random Glucose Lactic Acid 3.2 H* Lactic Acid F/U @ 2Hr Lactic Acid F/U @ 4Hr Calcium Total Bilirubin Direct Bilirubin AST ALT Alkaline Phosphatase Troponin I High Sens B-Natriuretic Peptide 407 H Total Protein Albumin Lipase Influenza Type A (PCR) NEGATIVE Influenza Type B (PCR) NEGATIVE RSV RNA Qual (PCR) NEGATIVE SARS-CoV-2 RNA (RT-PCR) NEGATIVE 10/08/22 10/09/22 10/09/22 15:54 00:04 02:24 MCV MCH MCHC RDW Plt Count MPV Immature Gran % (Auto) Neut % (Auto) Lymph % (Auto) [place] % (Auto) Eos % (Auto) Baso % (Auto) Lymph # (Auto) [place] # (Auto) Eos # (Auto) Baso # (Auto) Abs Immat Gran (auto) Absolute Neuts (auto) Absolute Nucleated RBC Nucleated RBC % (auto) Anion Gap Estim Creat Clear Calc Estimated GFR Random Glucose Lactic Acid Lactic Acid F/U @ 2Hr 2.8 H* Lactic Acid F/U @ 4Hr 1.7 Calcium Total Bilirubin Direct Bilirubin AST ALT Alkaline Phosphatase Troponin I High Sens 536.7 H* D B-Natriuretic Peptide Total Protein Albumin Lipase Influenza Type A (PCR) Influenza Type B (PCR) RSV RNA Qual (PCR) SARS-CoV-2 RNA (RT-PCR) 10/09/22 10/09/22 10/09/22 06:16 06:16 07:54 MCV 97.8 MCH 32.1 MCHC 32.8 RDW 14.3 Plt Count 205 D MPV 11.1 Immature Gran % (Auto) 0.7 H Neut % (Auto) 84.2 H Lymph % (Auto) 11.5 L [place] % (Auto) 3.5 Eos % (Auto) 0.0 Baso % (Auto) 0.1 Lymph # (Auto) 0.8 L [place] # (Auto) 0.3 Eos # (Auto) 0.0 Baso # (Auto) 0.0 Abs Immat Gran (auto) 0.05 H Absolute Neuts (auto) 6.1 Absolute Nucleated RBC 0.000 Nucleated RBC % (auto) 0.0 Anion Gap 12 Estim Creat Clear Calc 28.0 Estimated GFR 40 Random Glucose 206 H Lactic Acid Lactic Acid F/U @ 2Hr Lactic Acid F/U @ 4Hr Calcium 8.5 Total Bilirubin 0.7 Direct Bilirubin AST 28 ALT 26 Alkaline Phosphatase 117 Troponin I High Sens 579.4 H* B-Natriuretic Peptide Total Protein 5.6 L Albumin 3.1 L Lipase Influenza Type A (PCR) Influenza Type B (PCR) RSV RNA Qual (PCR) SARS-CoV-2 RNA (RT-PCR) Assessment and Plan (1) Congestive heart failure: Status: Acute (2) NSTEMI (non-ST elevated myocardial infarction): Status: Acute Plan 81-year-old female with COPD, history of pseudomonal pneumonia, coronary artery disease, paroxysmal atrial fibrillation anticoagulated with Eliquis, congestive heart failure admitted for COPD exacerbation, aspiration pneumonia, and atrial fibrillation with RVR. # COPD exacerbation and Probably heart failure #COPD-exacerbattion -Bronchodilators by Neb -Steroid -O2 #Unspecified Heart failure, EF unknown -BNP > baseline -IV diureteics -Echo on monday -cardiology consult #Elevated troponin I-- trend consistent with NSTEMI, signficantly anemic, already on eliquis, added Nitro, ASA, statin and get cardiology input, echo tomorrow # paroxysmal atrial fibrillation, rate is controlled -continue Eliquis 2.5 mg b.i.d. for anticoagulation -continue cardizem -monitor on telemetry # chronic normocytic anemia, H/H stable # CAD-no anginal chest pain -mild increase in troponin I, repeat -EKG without any ST or ST depressions DVT prophylaxis-on Eliquis Full code, plan of care discussed with the patient and the daughter at the bedside. Need for inpatient: Heart failure, Copd, NSTEMI Time Spent With Patient Time: Total time managing care of this patient today ____ minutes. Quality Stroke Does the patient have a stroke diagnosis?: No VTE Prior VTE?: No VTE Risk Level:: Medical - moderate - high VTE Device Contraindication: Treatment Not Indicated VTE Drug Contraindication: N/A - Med Ordered
[2022-10-09] MEDS: methylPREDNISolone Sod Succ 40 MG/ML VIAL IVPUSH ×2 (12:27→21:02)
[2022-10-09] MEDS: PT OWN (Umeclidinium-Vilanterol [Anoro Ellipta] 62.5-25 mcg/actuation bl 1 EACH INHALE (12:47)
--- NOTE | 2022-10-09 15:00 | MHC.CM.PN ---
CM MET WITH PT AND HER DAUGHTER/HCP, [place], AT BEDSIDE PT LIVES WITH [place] WHO CARES FOR HER AND IS COMPENSATED VIA [facility] PT HAS A RN CM FROM [facility] THAT VISITS PERIODICALLY AND SHE IS ACTIVE WITH [facility] PT HAS A WALKER, TRANSPORT W/C, RAMP, LIFT RECLINER, HOSPITAL BED, NEBULIZER, TUB BENCH, AND GRAB BARS AT HOME. HCP ON FILE PCP: GIANNI FOSS X 4 IMM WAS DELIVERED DCP: HOME RESUME [facility] AND [facility] SERVICES TRANSPORT TBD BY PTS FUNCTIONING AT TIME OF DC DAUGHTER VS BLS
[2022-10-09 15:15] LABS: Appearance Urine Clear; Color Urine Yellow; Glucose Urine UA Negative (Negative); Leukocyte Esterase Urine Negative (Negative); Nitrite Urine Negative (Negative); Specific Gravity - Urine 1.015 (1.005-1.025); Urine Blood Negative (Negative); Urine Ketones Negative (Negative); Urine Protein Negative (Neg-Trace)
--- NOTE | 2022-10-09 15:42 | PM.CNCAR ---
History of Present Illness History of Present Illness Date of Service: 10/09/22 Requesting physician: Navneet Daniel Chief complaint: heart failure, copd Narrative: 81-year-old female with history of COPD and congestive heart failure presenting with left-sided pressure-like feeling and shortness of breath. She is saying that when she does not breathe from her nose she starts getting a pressure-like feeling on the left side of chest. She previously was seen for elevated troponin levels in the setting of aspiration. It is unclear whether there is some concern for aspiration on this admission too. She is saying she is feeling fine right now. Her high sensitivity troponin levels were 134, 536 and 539. She is currently pain-free and has no symptoms. On exam she has bilateral wheezes and rhonchi. PMFSH Past Medical History Medical History A-fib Acute encephalopathy Acute hypokalemia Acute respiratory failure with hypoxia Anemia Anemia Aspiration pneumonia Atrial fibrillation with RVR Bronchiectasis CAD (coronary artery disease) Chronic dyspnea COPD (chronic obstructive pulmonary disease) COPD (chronic obstructive pulmonary disease) Dyspnea GI bleed Paroxysmal A-fib Pseudomonal pneumonia Pseudomonas respiratory infection Pulmonary nodules Family History Family History Other No family history of cancer Surgical History Surgical History H/O umbilical hernia repair (09/18/22) History of cholecystectomy History of hip replacement History of knee replacement History of quadruple bypass Social History Social History Household Members: Family Housing: House Are you a primary intensive care nurse to a significant other at home: No Do you presently have visiting nurse or other home services: Yes Alcohol intake: former Patient Tobacco Use Status: Tobacco use Unknown Tobacco use type: Cigarette Smoked in Last 30 Days: No Use of substances other than those prescribed or required for medical reasons: No Currently Displaying Signs/Symptoms of Drug Intoxication Withdrawal: No Advance Directives: Yes Advance Directives on File: Yes Advance Directives Date on File: 08/24/22 Do you have thoughts of harming others: None Do you have a plan to hurt others: No Plan Patient : No : No Poor oral hygiene: No service: No Current occupational status: retired Meds Allergies Allergy/AdvReac Type Severity Reaction Status Date / Time carvedilol Allergy Shortness Verified 10/04/22 14:13 of Breath sertraline [From Zoloft] Allergy Shortness Verified 10/04/22 14:13 of Breath spironolactone Allergy Shortness Verified 10/04/22 14:13 of Breath Active Medications: Current Medications Acetaminophen (Acetaminophen 325 Mg Tablet) 650 mg PO Q6H PRN PRN Reason: Pain, Mild (Pain Scale 1-3) Last Admin: 10/09/22 10:43 Dose: 650 mg Albuterol Sulfate (Albuterol Sulfate 90 Mcg 8 Gm Inhaler) 2 puff INHALE Q6H PRN PRN Reason: Wheezing Apixaban (Apixaban 2.5 Mg Tablet) 2.5 mg PO BID [facility] Last Admin: 10/09/22 09:26 Dose: 2.5 mg Diltiazem HCl (Diltiazem Hcl Cd 240 Mg Cap.Er.Deg) 240 mg PO DAILY [facility]; Protocol Last Admin: 10/09/22 09:26 Dose: 240 mg Docusate Sodium (Docusate Sodium 100 Mg Capsule) 100 mg PO BEDTIME [facility] Last Admin: 10/08/22 21:16 Dose: 100 mg Ferrous Sulfate (Ferrous Sulfate 324 Mg Tablet.Dr) 324 mg PO DAILY [facility] Last Admin: 10/09/22 09:26 Dose: 324 mg Fluticasone Propionate (Fluticasone Propionate Nasal 16 Gm [place]) 1 spray NOSTRIL-B BID [facility] Last Admin: 10/09/22 09:22 Dose: 1 spray Furosemide (Furosemide 40 Mg/4 Ml Vial) 40 mg IVPUSH DAILY [facility]; Protocol Last Admin: 10/09/22 09:27 Dose: 40 mg Levalbuterol HCl (Levalbuterol Hcl 1.25 Mg/3 Ml Vial.Neb) 1.25 mg INHALE QID [facility] Last Admin: 10/09/22 12:09 Dose: Not Given Lisinopril (Lisinopril 2.5 Mg Tablet) 2.5 mg PO DAILY [facility]; Protocol Last Admin: 10/09/22 09:26 Dose: 2.5 mg Melatonin (Melatonin 3 Mg Tablet) 3 mg PO BEDTIME PRN PRN Reason: Insomnia Last Admin: 10/08/22 21:17 Dose: 3 mg Methylprednisolone Sodium Succinate (Methylprednisolone Sod Succ 40 Mg/Ml Vial) 40 mg IVPUSH Q8H [facility] Last Admin: 10/09/22 12:27 Dose: 40 mg Montelukast Sodium (Montelukast Sodium 10 Mg Tablet) 10 mg PO BEDTIME [facility] Last Admin: 10/08/22 21:15 Dose: 10 mg Nitroglycerin (Nitroglycerin 2 % Oint 1 Gm Packet) 0.5 inch TRANSDERMA RQ6H WHILE AWAKE PRN PRN Reason: Cervical Ripening Pt Own (Umeclidinium -Vilanterol [Anoro Ellipta] 62.5-25 Mcg /Actuation Bl 1 each INHALE RDAILY [facility] Last Admin: 10/09/22 12:47 Dose: 1 each Omeprazole (Omeprazole 40 Mg Capsule.Dr) 40 mg PO DAILY@0630 [facility] Last Admin: 10/09/22 05:46 Dose: Not Given Ondansetron HCl (Ondansetron Hcl 4 Mg/2 Ml Vial) 4 mg IVPUSH Q8H PRN PRN Reason: Nausea and Vomiting Oxybutynin Chloride (Oxybutynin Chloride Er 5 Mg Tab.Er.24) 5 mg PO DAILY [facility] Last Admin: 10/09/22 09:23 Dose: 5 mg Polyethylene Glycol (Polyethylene Glycol 3350 17 Gm Powd.Pack) 17 gm PO DAILY [facility] Last Admin: 10/09/22 09:27 Dose: 17 gm Prednisone (Prednisone 5 Mg Tablet) 5 mg PO DAILY [facility] Last Admin: 10/09/22 09:26 Dose: 5 mg Sodium Chloride (0.9 % Sodium Chloride Flush 3 Ml Syringe) 3 ml IVFLUSH QSHIFT [facility] Last Admin: 10/09/22 09:27 Dose: 3 ml Tobramycin Sulfate (Tobramycin Sulfate 80 Mg/2 Ml Vial) 300 mg INHALE RBID [facility] Last Admin: 10/09/22 08:47 Dose: 300 mg Tramadol HCl (Tramadol Hcl 50 Mg Tablet) 50 mg PO BID [facility] Last Admin: 10/09/22 09:24 Dose: 50 mg Home Medications Medication Instructions Recorded Confirmed Last Taken Type docusate sodium 100 mg capsule 100 mg PO BEDTIME 03/22/22 10/08/22 10/08/22 History fluticasone propionate 50 1 spray intranasal BID 03/22/22 10/08/22 10/08/22 History mcg/actuation nasal spray,suspension montelukast 10 mg tablet 10 mg PO BEDTIME 03/22/22 10/08/22 10/08/22 History nebulizers 03/22/22 07/04/22 Unknown History nitroglycerin 0.3 mg sublingual 0.3 mg sublingual Q5M PRN Chest 03/22/22 10/08/22 10/08/22 History tablet Pain omeprazole 40 mg capsule,delayed 40 mg PO DAILY 03/22/22 10/08/22 10/08/22 History release oxybutynin chloride 5 mg 5 mg PO DAILY 03/22/22 10/08/22 10/08/22 History tablet,extended release 24 hr tramadol 50 mg tablet 50 mg PO BID 03/22/22 10/08/22 10/08/22 History furosemide 20 mg tablet 1 tab PO DAILY 04/06/22 10/08/22 10/08/22 History lisinopril 2.5 mg tablet 1 tab PO DAILY 04/06/22 10/08/22 10/08/22 History umeclidinium 62.5 mcg-vilanterol 1 ea inhalation DAILY 05/24/22 10/08/22 10/08/22 History 25 mcg/actuation powdr for inhalation (Anoro Ellipta) apixaban 2.5 mg tablet (Eliquis) 2.5 mg PO BID 08/04/22 10/08/22 10/08/22 History Ventolin 2 puff inhalation Q6H PRN Wheezing 09/17/22 10/08/22 Unknown History Physical Exam Vital Signs: Vital Signs: Last Vital Signs Temp 97.2 F 10/09/22 15:11 Pulse 80 10/09/22 15:11 Resp 17 10/09/22 15:11 BP 119/65 10/09/22 15:11 Pulse Ox 97 10/09/22 15:11 O2 Del Method Nasal Cannula 10/09/22 15:11 O2 Flow Rate 2 10/09/22 08:00 Oxygen Flow Rate 4 10/08/22 12:19 BMI result Body Mass Index 28.0 GENERAL APPEARANCE: in no acute distress, pleasant. NECK: no carotid bruit, + jugular venous distention. SKIN: no suspicious lesions, warm and dry. HEART: no murmurs, irregular rate and rhythm. LUNGS: Bilateral wheezes and rhonchi. ABDOMEN: soft, nontender. EXTREMITIES: + edema. PERIPHERAL PULSES: equal. NEUROLOGIC: No gross deficits, AAO X 3 Objective Labs and Meds 10/09/22 06:16 10/09/22 06:16 Lab results: Laboratory Results - last 24 hr 10/08/22 10/08/22 10/09/22 15:54 15:54 00:04 WBC RBC Hgb Hct MCV MCH MCHC RDW Plt Count MPV Immature Gran % (Auto) Neut % (Auto) Lymph % (Auto) [place] % (Auto) Eos % (Auto) Baso % (Auto) Lymph # (Auto) [place] # (Auto) Eos # (Auto) Baso # (Auto) Abs Immat Gran (auto) Absolute Neuts (auto) Absolute Nucleated RBC Nucleated RBC % (auto) Sodium Potassium Chloride Carbon Dioxide Anion Gap BUN Creatinine Estim Creat Clear Calc Estimated GFR Random Glucose Lactic Acid 3.2 H* Lactic Acid F/U @ 2Hr 2.8 H* Lactic Acid F/U @ 4Hr Calcium Total Bilirubin AST ALT Alkaline Phosphatase Troponin I High Sens 536.7 H* D Total Protein Albumin Urine Color Urine Appearance Urine pH Ur Specific [place] Urine Protein Urine Glucose (UA) Urine Ketones Urine Blood Urine Nitrite Ur Leukocyte Esterase 10/09/22 10/09/22 10/09/22 02:24 06:16 06:16 WBC 7.2 RBC 2.77 L Hgb 8.9 L Hct 27.1 L MCV 97.8 MCH 32.1 MCHC 32.8 RDW 14.3 Plt Count 205 D MPV 11.1 Immature Gran % (Auto) 0.7 H Neut % (Auto) 84.2 H Lymph % (Auto) 11.5 L [place] % (Auto) 3.5 Eos % (Auto) 0.0 Baso % (Auto) 0.1 Lymph # (Auto) 0.8 L [place] # (Auto) 0.3 Eos # (Auto) 0.0 Baso # (Auto) 0.0 Abs Immat Gran (auto) 0.05 H Absolute Neuts (auto) 6.1 Absolute Nucleated RBC 0.000 Nucleated RBC % (auto) 0.0 Sodium 136 Potassium 3.7 Chloride 98 Carbon Dioxide 30 H Anion Gap 12 BUN 20 H Creatinine 1.28 Estim Creat Clear Calc 28.0 Estimated GFR 40 Random Glucose 206 H Lactic Acid Lactic Acid F/U @ 2Hr Lactic Acid F/U @ 4Hr 1.7 Calcium 8.5 Total Bilirubin 0.7 AST 28 ALT 26 Alkaline Phosphatase 117 Troponin I High Sens Total Protein 5.6 L Albumin 3.1 L Urine Color Urine Appearance Urine pH Ur Specific [place] Urine Protein Urine Glucose (UA) Urine Ketones Urine Blood Urine Nitrite Ur Leukocyte Esterase 10/09/22 10/09/22 07:54 Unknown WBC RBC Hgb Hct MCV MCH MCHC RDW Plt Count MPV Immature Gran % (Auto) Neut % (Auto) Lymph % (Auto) [place] % (Auto) Eos % (Auto) Baso % (Auto) Lymph # (Auto) [place] # (Auto) Eos # (Auto) Baso # (Auto) Abs Immat Gran (auto) Absolute Neuts (auto) Absolute Nucleated RBC Nucleated RBC % (auto) Sodium Potassium Chloride Carbon Dioxide Anion Gap BUN Creatinine Estim Creat Clear Calc Estimated GFR Random Glucose Lactic Acid Lactic Acid F/U @ 2Hr Lactic Acid F/U @ 4Hr Calcium Total Bilirubin AST ALT Alkaline Phosphatase Troponin I High Sens 579.4 H* Total Protein Albumin Urine Color Yellow Urine Appearance Clear Urine pH 5.0 Ur Specific [place] 1.015 Urine Protein Negative Urine Glucose (UA) Negative Urine Ketones Negative Urine Blood Negative Urine Nitrite Negative Ur Leukocyte Esterase Negative Assessment and Plan (1) NSTEMI (non-ST elevated myocardial infarction): Status: Acute (2) Congestive heart failure: Status: Acute Plan 81-year-old female presenting for shortness of breath and mild pressure on the left side of chest. She is quite vague about it and is saying it can last anywhere from few seconds to minutes. She takes breath from her nose and this improves. She is clinically volume overloaded. She also has bilateral wheezes. It is possible that she is aspirating again. In any case her troponin level can be elevated due to mild CHF. Her ECG also admission had atrial flutter with variable block with tachycardia. She will diltiazem 240 mg daily which is continued and looks like heart rates are improving. I think we gently diurese her and treat her lung disease. I explained to her that aggressive measures at her age like procedures may cause more harm than benefit in her case. She is very frail and has significant bruising all over the body and is high risk for bleeding in general. I think medically treat her. With her current health condition I do not think that doing stress testing will change her outcome. Thank you for allowing me to participate in the care of your patient. Please feel free to contact me if you have any questions. Time Spent With Patient Time: Total time managing care of this patient today ____ minutes. Procedures Date of Service Date of Service: 10/09/22
[2022-10-09] MEDS: Montelukast Sodium 10 MG TABLET PO (21:03)
[2022-10-10] VITALS (7 sets, daily range): BP systolic 110–138; BP diastolic 69–82; PULSE 95–130; RESP 18–20; TEMP 36.2–36.6; O2SAT 95–97; BMI 28.0
[2022-10-10] MEDS: 0.9 % Sodium Chloride Flush 3 ML SYRINGE IVFLUSH ×3 (00:30→16:52)
[2022-10-10] MEDS: methylPREDNISolone Sod Succ 40 MG/ML VIAL IVPUSH ×2 (03:45→12:39)
[2022-10-10] MEDS: Omeprazole 40 MG CAPSULE.DR PO (05:42)
--- NOTE | 2022-10-10 07:00 | CA_ITS ---
Transthoracic Echocardiogram Patient (Last, First, Middle): Jenifer Mercado S Gender: Female Date of : 1940 Age: 81 Procedure Date: 10/10/2022 Procedure Type: Transthoracic Echocardiogram Location: [facility] [place] Height: 152.4 cm Weight: 64.86 kg BSA: 1.62 m2 Heart Rate: 93 bpm BP: 127 / 78 mmHg Tarper: ANSHUL Slade MD: Navneet Daniel MD [employer] Operator: Esequiel Darden MD Symptoms: Heart falure Study Quality: Fair/Contrast ECG Rhythm: Atrial flutter Conclusions: - 1. Moderate LV systolic dysfunction with wall motion abnormality predominant in the LAD territory 2. Moderately dilated left atrium 3. [id number] aortic stenosis and mitral regurgitation 4. Normal RV systolic pressure 5. No gross pericardial effusion Findings Procedure Information Contrast agent, definity, is being given per protocol without apparent complications. Left Ventricle Normal left ventricular cavity size. There is mildly increased left ventricular wall thickness. The left ventricular systolic function is moderately decreased. The visually estimated ejection fraction is between 35 40%. Diastolic function is indeterminate on the basis of available data. Wall Motion Rest Echo Findings The apical inferior and basal anteroseptal segments are hypokinetic. The apex, apical anterior, mid anterior, apical lateral, apical septum, and mid anteroseptal segments are akinetic. All other scored wall segments showed normal motion. Right Ventricle Mildly increased right ventricular cavity size. There is borderline right ventricular systolic function. Atria The left atrium is moderately dilated. Interatrial shunt cannot be excluded. The right atrium is likely dilated. Aortic Valve There is mild calcification of the aortic valve. There is mild to moderate aortic valve stenosis. The peak aortic gradient is 15 mmHg.The mean gradient is 8 mmHg. There is no aortic valve regurgitation. Mitral Valve There is mild anterior and posterior mitral leaflet thickening. There is mild mitral annular calcification. There is mild to moderate mitral valve regurgitation. There is no mitral valve stenosis. Pulmonic Valve The pulmonic valve was not well visualized. Tricuspid Valve Likely normal tricuspid valve structure and function. There is trace tricuspid valve regurgitation. The right ventricular systolic pressure is normal. The right ventricular systolic pressure is 19 mmHg. Normal right atrial pressure. There is no evidence of pulmonary hypertension. Great Vessels All visible segments of the aorta are normal in size. The pulmonary artery was not well visualized. Venous The inferior vena cava is normal in size and collapses greater than 50% with inspiration. Pericardium/Pleural There is no evidence of pericardial effusion. Prior Study Comparison No prior study available for comparison. Measurements 2D Linear Measurements IVSd: 1.40 0.6-0.9/0.6-1.0 cm LVIDd: 4.65 3.9-5.3/4.2-5.9 cm LVIDd Index: 2.87 2.4-3.2/2.2-3.1 cm/m2 LVIDs: 2.98 2.0-3.6 cm LVPWd: 1.34 0.7-1.1 cm LV Mass: 315.16 67-162/88-224 g LV Mass Index: 194.54 43-95/49-115 g/m2 LVOT Diam: 2.10 3.0+(-)1.3 cm 2D Systolic Function EF 4C: 50.80 >55% EF 2C: 28.20 >55% EF BiP: 39.30 >55% Mitral Valve MV VTI: 0.29 MV Pk Nehemias: 1.51 MV Mn Nehemias: 0.85 MV Pk Grad: 9.00 MV Mn Grad: 4.00 MV Pk E: 1.33 MV Decel Time: 136.00 E'Lateral: 6.73 E'Medial: 3.16 E/E' Med: 42.10 E/E' Lat: 19.80 PHT: 40.00 MVA PHT: 5.50 MVA Continuity: 1.59 Decel [place]: 9.93 Aortic Valve AoV Pk Nehemias: 1.94 AoV Mn Nehemias: 1.28 AoV VTI: 0.34 AoV Pk Grad: 15.00 Aov Mn Grad: 8.00 PRAVIN Cont.VTI: 1.38 LVOT LVOT Pk Nehemias: 0.76 LVOT Mn Nehemias: 0.53 LVOT VTI: 0.13 LVOT Pk Grad: 2.00 LVOT Mn Grad: 1.00 LVOT Diam: 2.10 LVOT Area: 3.46 Diastolic Function MV Pk E: 1.33 E'Medial: 3.16 E/E' Med: 42.10 E' Laterial: 6.73 E/E' Lat: 19.80 Right Ventricle TAPSE (mm): 14.20 TVS' Nehemias: 7.70 Tricuspid Valve TR Pk Nehemias: 1.64 TR Pk Grad: 11.00 RA Press: 8.00 RVSP: 19.00 Great Vessels Aorta Sinus of Valsalva: 3.10 2.0-3.5 cm Ao Asc: 3.40 2.1-3.4 cm Pulmonary Valve PV Pk Nehemias: 0.81 Peak PV Grad: 3.00 Updated in Other Vendor System with Status of Final Esequiel Daredn MD electronically signed on 10/10/2022 4:47:12 PM with status of Final
[2022-10-10] MEDS: Tobramycin Sulfate 80 MG/2 ML VIAL 300 MG INHALE (07:50)
[2022-10-10] MEDS: levalbuterol HCL 1.25 MG/3 ML VIAL.NEB INHALE (07:50)
[2022-10-10] MEDS: PT OWN (Umeclidinium-Vilanterol [Anoro Ellipta] 62.5-25 mcg/actuation bl 1 EACH INHALE (07:51)
[2022-10-10] MEDS: polyethylene glycoL 3350 17 GM POWD.PACK PO (09:19)
[2022-10-10] MEDS: Ferrous Sulfate 324 MG TABLET.DR PO (09:20)
[2022-10-10] MEDS: Furosemide 40 MG/4 ML VIAL IVPUSH (09:20)
[2022-10-10] MEDS: Apixaban 2.5 MG TABLET PO (09:21)
[2022-10-10] MEDS: dilTIAZem HCL CD 240 MG CAP.ER.DEG PO (09:21)
[2022-10-10] MEDS: lisinopriL 2.5 MG TABLET PO (09:22)
[2022-10-10] MEDS: oxyBUTYnin chloride ER 5 MG TAB.ER.24 PO (09:22)
[2022-10-10] MEDS: traMADoL HCL 50 MG TABLET PO (09:23)
[2022-10-10] MEDS: predniSONE 5 MG TABLET PO (09:23)
[2022-10-10] MEDS: Fluticasone Propionate Nasal 16 GM SPRAY 1 SPRAY NOSTRIL-B (09:25)
--- NOTE | 2022-10-10 10:05 | P.PNIM_ITS ---
Subjective Subjective Date of Service: 10/10/22 Interval History: f/u on sob, copd heart failure and possible NSTEMI Interval history: she is still short of breath is better, intermittent chest discomfort Review of Systems +sob, some chest discomfort Physical Exam Vital Signs: Vital Signs: Last Vital Signs Temp 97.4 F 10/10/22 07:53 Pulse 124 H 10/10/22 07:53 Resp 20 10/10/22 07:53 BP 110/69 10/10/22 07:53 Pulse Ox 95 10/10/22 07:53 O2 Del Method Nasal Cannula 10/10/22 07:53 O2 Flow Rate 2 10/10/22 07:53 Oxygen Flow Rate 4 10/08/22 12:19 BMI result Body Mass Index 28.0 Const: Other: General: AO X 3, no acute distress Resp: some rales at bases,no wheezes CVS: S1,S2, iregular iregular GI: +BS, NT, no distention Skin: No rash Neuro: motor grossly intact Psych: appropriate affect Objective Data Active Medications Acetaminophen (Acetaminophen 325 Mg Tablet) 650 mg PO Q6H PRN PRN Reason: Pain, Mild (Pain Scale 1-3) Last Admin: 10/09/22 10:43 Dose: 650 mg Documented By: LÁZARO Albuterol Sulfate (Albuterol Sulfate 90 Mcg 8 Gm Inhaler) 2 puff INHALE Q6H PRN PRN Reason: Wheezing Apixaban (Apixaban 2.5 Mg Tablet) 2.5 mg PO BID [facility] Last Admin: 10/10/22 09:21 Dose: 2.5 mg Documented By: MATT Diltiazem HCl (Diltiazem Hcl Cd 240 Mg Cap.Er.Deg) 240 mg PO DAILY [facility]; Protocol Last Admin: 10/10/22 09:21 Dose: 240 mg Documented By: MATT Docusate Sodium (Docusate Sodium 100 Mg Capsule) 100 mg PO BEDTIME [facility] Last Admin: 10/09/22 23:04 Dose: Not Given Documented By: JAZZ Non-Admin Reason: Patient Refused Ferrous Sulfate (Ferrous Sulfate 324 Mg Tablet.) 324 mg PO DAILY [facility] Last Admin: 10/10/22 09:20 Dose: 324 mg Documented By: MATT Fluticasone Propionate (Fluticasone Propionate Nasal 16 Gm [place]) 1 spray NOSTRIL-B BID [facility] Last Admin: 10/10/22 09:25 Dose: 1 spray Documented By: MATT Furosemide (Furosemide 40 Mg/4 Ml Vial) 40 mg IVPUSH DAILY [facility]; Protocol Last Admin: 10/10/22 09:20 Dose: 40 mg Documented By: MATT Levalbuterol HCl (Levalbuterol Hcl 1.25 Mg/3 Ml Vial.Neb) 1.25 mg INHALE QID [facility] Last Admin: 10/10/22 07:50 Dose: 1.25 mg Documented By: KRISHNA Lisinopril (Lisinopril 2.5 Mg Tablet) 2.5 mg PO DAILY [facility]; Protocol Last Admin: 10/10/22 09:22 Dose: 2.5 mg Documented By: MATT Melatonin (Melatonin 3 Mg Tablet) 3 mg PO BEDTIME PRN PRN Reason: Insomnia Last Admin: 10/08/22 21:17 Dose: 3 mg Documented By: NARENDRA Methylprednisolone Sodium Succinate (Methylprednisolone Sod Succ 40 Mg/Ml Vial) 40 mg IVPUSH Q8H [facility] Last Admin: 10/10/22 03:45 Dose: 40 mg Documented By: TRUNG Montelukast Sodium (Montelukast Sodium 10 Mg Tablet) 10 mg PO BEDTIME [facility] Last Admin: 10/09/22 21:03 Dose: 10 mg Documented By: JAZZ Nitroglycerin (Nitroglycerin 2 % Oint 1 Gm Packet) 0.5 inch TRANSDERMA RQ6H WHILE AWAKE PRN PRN Reason: Cervical Ripening Pt Own (Umeclidinium -Vilanterol [Anoro Ellipta] 62.5-25 Mcg /Actuation Bl 1 each INHALE RDAILY [facility] Last Admin: 10/10/22 07:51 Dose: 1 each Documented By: KRISHNA Omeprazole (Omeprazole 40 Mg Capsule.) 40 mg PO DAILY@0630 [facility] Last Admin: 10/10/22 05:42 Dose: 40 mg Documented By: TRUNG Ondansetron HCl (Ondansetron Hcl 4 Mg/2 Ml Vial) 4 mg IVPUSH Q8H PRN PRN Reason: Nausea and Vomiting Oxybutynin Chloride (Oxybutynin Chloride Er 5 Mg Tab.Er.24) 5 mg PO DAILY [facility] Last Admin: 10/10/22 09:22 Dose: 5 mg Documented By: MATT Polyethylene Glycol (Polyethylene Glycol 3350 17 Gm Powd.Pack) 17 gm PO DAILY [facility] Last Admin: 10/10/22 09:19 Dose: 17 gm Documented By: MATT Prednisone (Prednisone 5 Mg Tablet) 5 mg PO DAILY [facility] Last Admin: 10/10/22 09:23 Dose: 5 mg Documented By: MATT Sodium Chloride (0.9 % Sodium Chloride Flush 3 Ml Syringe) 3 ml IVFLUSH QSHIFT [facility] Last Admin: 10/10/22 09:19 Dose: 3 ml Documented By: MATT Tobramycin Sulfate (Tobramycin Sulfate 80 Mg/2 Ml Vial) 300 mg INHALE RBID [facility] Last Admin: 10/10/22 07:50 Dose: 300 mg Documented By: KRISHNA Tramadol HCl (Tramadol Hcl 50 Mg Tablet) 50 mg PO BID [facility] Last Admin: 10/10/22 09:23 Dose: 50 mg Documented By: MATT Labs 10/09/22 06:16 10/09/22 06:16 Labs: Laboratory Results - last 24 hr 10/09/22 Unknown Urine Color Yellow Urine Appearance Clear Urine pH 5.0 Ur Specific [place] 1.015 Urine Protein Negative Urine Glucose (UA) Negative Urine Ketones Negative Urine Blood Negative Urine Nitrite Negative Ur Leukocyte Esterase Negative Microbiology Microbiology Results: Microbiology 10/08/22 15:54 Blood Culture - Preliminary Blood - Venous No growth after 24 hours. 10/08/22 15:27 Blood Culture - Preliminary Blood - Venous No growth after 24 hours. Assessment and Plan (1) Congestive heart failure: Status: Acute (2) NSTEMI (non-ST elevated myocardial infarction): Status: Acute Plan 81-year-old female with COPD, history of pseudomonal pneumonia, coronary artery disease, paroxysmal atrial fibrillation anticoagulated with Eliquis, congestive heart failure admitted for COPD exacerbation, aspiration pneumonia, and atrial fibrillation with RVR. #COPD-exacerbattion -Bronchodilators by Neb -Steroid -O2 #Unspecified Heart failure, EF unknown -BNP > baseline -IV diureteics -Echo on today -cardiology following #CAD #Elevated troponin I-- trend consistent with NSTEMI, signficantly anemic, already on eliquis, added Nitro, ASA, statin and get cardiology input, echo today, Cardiology advises conservative management # paroxysmal atrial fibrillation, rate is controlled -continue Eliquis 2.5 mg b.i.d. for anticoagulation -continue cardizem # chronic normocytic anemia, H/H on lower side but stable DVT prophylaxis-on Eliquis Need for inpatient: Heart failure, Copd, NSTEMI treatment possible disdharge tomorrow Time Spent With Patient Time: Total time managing care of this patient today ____ minutes. Quality Stroke Does the patient have a stroke diagnosis?: No VTE Prior VTE?: No VTE Risk Level:: Medical - moderate - high VTE Device Contraindication: Treatment Not Indicated VTE Drug Contraindication: N/A - Med Ordered
--- NOTE | 2022-10-10 10:35 | PM.PNCARD ---
Subjective Subjective Date of Service: 10/10/22 Principal diagnosis: Atrial flutter, elevated troponins Interval history: Patient is complaining of mild chest pressure this morning but is very upset about a lot of minor things. Patient says that she has not received her usual medication morning. Continues to have wheezing, denies palpitation rapid heart rate. Review of Systems Constitutional: Reports no additional constitutional complaints Cardiovascular: Reports dyspnea and Reports other (Chest pressure) Respiratory: Reports dyspnea and Reports wheezing Gastrointestinal: Reports no additional gastrointestinal complaints Musculoskeletal: Reports no additional musculoskeletal complaints Reports system reviewed and no additional complaints, except as documented Psychiatric: Reports no additional psychiatric complaints Endocrine: Reports no additional endocrine complaints Allergic/Immunologic: Reports wheezing Physical Exam Vital Signs: Last Vital Signs Temp 97.4 F 10/10/22 07:53 Pulse 124 H 10/10/22 07:53 Resp 20 10/10/22 07:53 BP 110/69 10/10/22 07:53 Pulse Ox 95 10/10/22 07:53 O2 Del Method Nasal Cannula 10/10/22 07:53 O2 Flow Rate 2 10/10/22 07:53 Oxygen Flow Rate 4 10/08/22 12:19 BMI result Body Mass Index 28.0 Const General: cooperative, alert, awake, in distress mild and respiratory and combative Nutritional Appearance: average body habitus Orientation/consciousness: patient oriented x3 Neck Neck: Yes trachea midline, Yes supple and Yes no JVD Resp Effort & Inspection: normal respiratory effort Auscultation: wheezes expiratory wheezes and throughout Cardio Jugular venous distension: no JVD Rate: tachycardic Heart sounds: S1 normal heart sound present and S2 normal heart sound present GI Auscultation: normal bowel sounds Skin General skin exam: ecchymosis Neuro General: patient oriented x3 and no focal motor deficits Extrem General: Yes no clubbing, cyanosis or edema Objective Labs and Meds 10/09/22 06:16 10/09/22 06:16 Lab results: Laboratory Results - last 24 hr 10/09/22 Unknown Urine Color Yellow Urine Appearance Clear Urine pH 5.0 Ur Specific [place] 1.015 Urine Protein Negative Urine Glucose (UA) Negative Urine Ketones Negative Urine Blood Negative Urine Nitrite Negative Ur Leukocyte Esterase Negative Progress Note: A&P Assessment and plan (1) Atrial flutter with rapid ventricular response: Status: Acute Assessment and Plan: Patient prior history of paroxysmal atrial flutter/fibrillation presents with acute respiratory failure and pneumonia causing recurrent atrial flutter. This is difficult control. This is exacerbated by her anxiety and provocation. Discussed with her about stress mitigation strategies. I think patient would benefit most with rhythm control approach, given that she has elevated troponin signs of suggestive of heart failure to obtain rate control. However she absolutely declined to undergo synchronized cardioversion. She would like to discuss with her daughter which is acceptable. Did discuss with the nursing staff and they are also going to bring daughter in to discussion. Meanwhile can use IV digoxin 0.25 mg IV push q.6 hours x3 doses to better rate control. Continue Cardizem therapy. Continue full oral anticoagulation with Eliquis. Overall prognosis is guarded. Continue supportive care and treatment of underlying bronchospastic airway disease and pneumonia. (2) NSTEMI (non-ST elevated myocardial infarction): Status: Acute Assessment and Plan: Elevated troponins are suggestive of NSTEMI, secondary to pneumonia and rapid atrial flutter. There is likelihood of underlying coronary artery disease. However this will be managed by rate control/rhythm control as above. Probably giving her chest pressure but could also be related to bronchospastic airway disease. Currently on full oral anticoagulation with Eliquis. Consider statin therapy as well. Will continue to follow with the Time Spent With Patient Time: Total time managing care of this patient today ____ minutes. Progress Note: Quality Stroke Does the patient have a stroke diagnosis?: No Procedures Date of Service Date of Service: 10/10/22
[2022-10-10 11:35] LABS: Glucose, Whole Blood 266 mg/dL (60-115)
[2022-10-10] MEDS: Digoxin 0.5 MG/2 ML AMPUL 0.25 MG IVPUSH ×2 (12:37→16:51)
--- NOTE | 2022-10-10 15:25 | P.CDIM_ITS ---
PROVIDER RESPONSE TEXT: To clarify, the appropriate diagnosis supported by the clinical indicators: Acute lactic acidosis, POA, resolved etc. QUERY TEXT: PHYSICIAN'S DOCUMENTATION REQUEST Date of Query: 10/10/2022 10:55 AM EDT Patient Name: Jenifer Mercado Admit Date: 10/08/2022 Dear Navneet Daniel, A review of the medical record indicates additional documentation may be needed. Please review below and update the documentation accordingly. Clinical Indicators: LAB FINDINGS: [place] 3.2 2.8 Is there a diagnosis that correlates with these lab findings: Acute lactic acidosis, POA, resolved etc. Other etiology of lab findings Unable to determine Other (explain) Clinically unable to determine (explain) Thank you, Radha Preciado, CCS, CDIS Use of terms such as suspected, likely, concern for, or probable (associated with a specific diagnosi s that is being evaluated, monitored, or treated as if it exists) are acceptable and can be coded in the inpatient se tting, when documented at the time of discharge. Please use your independent medical judgment in providing your response. THIS QUERY IS PART OF THE PERMANENT MEDICAL RECORD
--- NOTE | 2022-10-10 17:06 | P.EN_ITS ---
Event Note Date of Service: 10/10/22 Event Note: Review the echocardiogram which shows reduction LV ejection fraction wall motion abnormality in LAD territory. Given her chest pressure with abnormal troponins and rapid atrial flutter with elevated BNP, felt best that patient should be transferred to [facility] for further cardiac care. Discuss this with her power washer , who is agreeable to this management plan and will follow as a consult service at [facility]. Case discussed with hospitalist team and arrangements for transfer being made. Case was also discussed with patient's daughter. Time Spent With Patient Time: Total time managing care of this patient today ____ minutes.
--- NOTE | 2022-10-10 17:25 | PM.DS ---
DS: Providers Provider Date of Service: 10/10/22 Date of admission: 10/08/22 16:22 Primary care physician: Monica Arciniega MD Consults: 10/08/22 16:22 Consult to Cardiology Routine Consulting Provider: [facility] Cardiovascular Services Reason for consultation: heart failure Has provider been notified: Yes DS: Diagnosis Discharge Diagnosis (1) Atrial flutter with rapid ventricular response: Status: Acute (2) NSTEMI (non-ST elevated myocardial infarction): Status: Acute DS: Summary Hospital Course Hospital Course: Chief Complaint: Shortness of breath Accompanied by her daughter Rogelio, an 81-year-old female patient with a medical history of COPD, history pulmonary pseudomonas on inhaled Tobramycin, coronary artery disease, paroxysmal atrial fibrillation (currently anticoagulated with Eliquis), unspecified congestive heart failure, and a recent small bowel obstruction followed by bowel resection presents with progressively worsening shortness of breath for several days. Despite being prescribed oxygen by her leach tank tender, her condition has not improved. She is also experiencing coughing but without producing any sputum, and reports no fever or chills, nor chest pain. The patient had been on Prednisone 5mg daily, but stopped taking it on the advice of the surgeon to promote surgical wound healing. Her influenza, RSV, and Covid tests all came back negative, WBC is 19,? her troponin I levels are elevated despite the absence of chest pain. Her BNP level is 407, which is above her baseline, and an ECG shows atrial fibrillation with no discernible MASSIMO changes. A CXR reveals changes consistent with small airway disease. Hospital course: This patient with a history of a coronary artery disease unspecified heart failure COPD with chronic respiratory failure presented with a shortness of breath wheezing and was treated in the emergency room for what appeared to be acute exacerbation of COPD in addition to heart failure which was treated with intravenous Lasix. Initial cardiac troponin I level was 134 and subsequently went up to 536 we and developer some associated chest pressure at the time also, Subsequent troponin I level remained high at 579 With ongoing intermittent chest pain. She has been on aspirin, Cardizem, and due to the fact that she is she is significantly anemic and on Eliquis for atrial fibrillation she was not initiated on intravenous heparin. she was evaluated by the Cardiology Service at [facility] Dr. Darden and subsequently her care was discussed with her patient registration supervisor Dr. Kelton call at [facility] and given that the patient's new echocardiogram show significant reduction LV ejection fraction, wall motion abnormality in LAD territory.? and ongoing chest pressure with abnormal troponins and rapid atrial flutter with elevated BNP, a consensus decision by the care teams is to transfer the patient to [facility] for further cardiac testing and evaluation. At the present her chest pain is better. Not on BB since has been CCB, no ASA due on eliquis and significantly anemic, and statin for medical management. I personally discussed the case with Dr. Newman #COPD-exacerbattion-- treated with Xopenex given the tachycardia, IV steroid, and oxygen. # Heart failure with reduced ejection fraction-- she has been treated with intravenous Lasix at 40 mg daily and has had significant increase in urine output. Echo today: 1.? Moderate LV systolic dysfunction with wall motion? abnormality predominant in the LAD territory ? 2.? Moderately dilated left atrium ? 3.? [id number] aortic stenosis and mitral regurgitation? ? 4.? Normal RV systolic pressure? 5.? No gross pericardial effusion? EF 40% #CAD #NSTEMI..Medical management with ?eliquis (no ASA d/t significant anemia), statin, no BB due to Coreg alllergy and on CCB, no IV heparin given give that she's on eliquis # paroxysmal atrial fibrillation with RVR, she's on cardizem at baseline and dig loaded today with 0.75 mg of digoxin, heart rate is much better controled. Continue eliquis at 2.5 mg bid # chronic normocytic anemia, H/H on lower side but stable, no active bleeding Dispo: home Time Spent with Patient Time attestation: Total time managing care of this patient today ____ minutes. Discharge coordination time: Greater than 30 minutes Quality: Safe Use of Opioids Does Pt have an Active Cancer Diagnosis on the Problem List?: No Quality: Stroke Does the patient have a stroke diagnosis?: No Physical Exam Vital Signs: Vital Signs: Last Vital Signs Temp 97.4 F 10/10/22 15:39 Pulse 106 H 10/10/22 15:39 Resp 20 10/10/22 15:39 BP 120/82 10/10/22 15:39 Pulse Ox 97 10/10/22 15:39 O2 Del Method Nasal Cannula 10/10/22 15:39 O2 Flow Rate 2 10/10/22 15:39 Oxygen Flow Rate 4 10/08/22 12:19 BMI result Body Mass Index 28.0 DS: Data Data Completed and Pending Completed studies during hospitalization [Text1]: Procedures Supplement Abdominal Wall with Synthetic Substitute, Open Approach (09/17/22) Transfusion of Nonautologous Red Blood Cells into Peripheral Vein, Percutaneous Approach (04/06/22) Labs on day of discharge: Laboratory Results - last 24 hr 10/10/22 11:23 POC Glucose 266 H Preliminary micro results at discharge 10/08/22 15:54 Blood Culture - Preliminary Blood - Venous No growth after 24 hours. 10/08/22 15:27 Blood Culture - Preliminary Blood - Venous No growth after 24 hours. Discharge Plan Discharge Anticipated Discharge Date/Time: 10/10/22 17:19 Patient Disposition: er [facility] Discharge Diagnosis: NSTEMI, heart failure, COPD Referrals: Monica Arciniega MD [Primary Care Provider] - 1 Week Discharge Medications: New furosemide 10 mg/mL Solution 40 mg IVPUSH DAILY Qty: 40 0RF Protocol: Hold for SBP< HOLD for SBP < : 90 atorvastatin [Lipitor] 40 mg tablet 40 mg PO BEDTIME Qty: 30 0RF Continued tobramycin in 0.225 % NaCl [John] 300 mg/5 mL solution for nebulization 300 mg inhalation BID 28 Days Qty: 280 6RF Rx Instructions: Take for 28 days as prescribed and then 28 days off ferrous sulfate 325 mg (65 mg iron) tablet 325 mg PO DAILY 0RF (DME) Aerochamber MV Spacer See Rx Instructions .ROUTE .MEDSUPPLY Qty: 1 0RF Rx Instructions: As directed lisinopril 2.5 mg tablet 1 tab PO DAILY diltiazem HCl 240 mg Capsule,Extended Release 24hr 240 mg PO DAILY Qty: 30 0RF Protocol: Hold for SBP/HR < HOLD for SBP < : 90 HOLD for HR < : 60 Rx Instructions: replaces prior dose of 120 mg daily Anoro Ellipta 62.5-25 mcg/actuation blister with device 1 ea inhalation DAILY Eliquis 2.5 mg tablet 2.5 mg PO BID Ventolin aerosol 2 puff inhalation Q6H PRN (Reason: Wheezing) polyethylene glycol 3350 [Miralax] 17 gram/dose powder 17 g PO DAILY Qty: 119 0RF Rx Instructions: take daily until bowel habits return to normal docusate sodium 100 mg capsule 100 mg PO BEDTIME fluticasone propionate 50 mcg/actuation spray,suspension 1 spray intranasal BID montelukast 10 mg tablet 10 mg PO BEDTIME nitroglycerin 0.3 mg tablet, sublingual 0.3 mg sublingual Q5M PRN (Reason: Chest Pain) omeprazole 40 mg capsule,delayed release(DR/EC) 40 mg PO DAILY oxybutynin chloride 5 mg tablet extended release 24hr 5 mg PO DAILY tramadol 50 mg tablet 50 mg PO BID (DME) nebulizers Kit See Rx Instructions .ROUTE Rx Instructions: As directed levalbuterol HCl [Xopenex] 1.25 mg/3 mL solution for nebulization 1.25 mg inhalation QID 30 Days Qty: 360 11RF Alvesco 160 mcg/actuation HFA aerosol inhaler 1 puff inhalation Q12H 30 Days Qty: 6.1 11RF prednisone 5 mg tablet 5 mg PO DAILY 30 Days Qty: 30 4RF Discontinued furosemide 20 mg tablet 1 tab PO DAILY Hold Instructions: Resume on 09/14/22. Discharge Orders: Discharge Order (Routine); Ordered 10/10/22 Ordered By: Navneet Daniel Diet: Advance to usual diet Activity on Discharge: As tolerated Stand Alone Forms: Patient Portal Discharge page Care Plan Goals: transfer to [facility] for further cardiac evaluation and testing Health Concerns: AFib with RVR Heart failure cardiomyopathy COPD with acute exacerbation non ST elevation myocardial infarction Plan of Treatment: transfer to [facility] for further cardiac testing, Transfer discussed [facility] patient's patient registration supervisor Dr. Homero Newman Assessment: as above
== END 2022-10-10 18:45 | disposition short-term general hospital (02) | DRG 190 ==
LOC: HO.ED 12:40 → HO.EDOVER 16:36 → HO.IMC 17:12
PROVIDERS: Admitting Provider Internal Medicine; Emergency Provider Emergency Medicine; PCP Internal Medicine; Visit Provider Internal Medicine
DX: J44.0 Chronic obstructive pulmonary disease with (acute) lower respiratory infection (principal); I21.A1 Myocardial infarction type 2; J18.9 Pneumonia, unspecified organism; I50.23 Acute on chronic systolic (congestive) heart failure; E87.20 Acidosis, unspecified; I42.9 Cardiomyopathy, unspecified; J44.1 Chronic obstructive pulmonary disease with (acute) exacerbation; I48.0 Paroxysmal atrial fibrillation; I08.0 Rheumatic disorders of both mitral and aortic valves; I25.10 Atherosclerotic heart disease of native coronary artery without angina pectoris; Z20.822 Contact with and (suspected) exposure to COVID-19; Z88.8 Allergy status to other drugs, medicaments and biological substances; Z79.01 Long term (current) use of anticoagulants; Z79.51 Long term (current) use of inhaled steroids; Z79.52 Long term (current) use of systemic steroids; Z79.899 Other long term (current) drug therapy
CPT/HCPCS: 0241U; 36415; 71045; 80048; 80053; 80076; 81003; 82947; 83605; 83690; 83880; 84484; 85025; 87040; 93005; 93306; 94640; 99285; J1160; J1940; J1956; J2920; J2930; J3260; Q9957

== ENCOUNTER 2022-11-02 12:39 | Inpatient (IN) | payer OTHER, SELFPAY ==
[2022-11-02] VITALS (7 sets, daily range): BP systolic 111–177; BP diastolic 48–77; PULSE 63–117; RESP 15–34; TEMP 36.1–37.4; O2SAT 91–96; BMI 24.4
--- NOTE | ~2022-11-02 | CT_ITS ---
EXAMINATION: CT brain and CT abdomen pelvis without contrast. CLINICAL INDICATIONS: Altered mental status and abdominal distention. No bowel movements. COMPARISON: CT abdomen and pelvis with IV contrast 09/17/2022. TECHNIQUE: 5 mm thin axial and reformatted 2 mm thin sagittal and coronal images of brain were obtained without contrast. Subsequently axial 5 mm thin and reformatted 3 mm thin sagittal and coronal images of abdomen and pelvis were obtained. DLP [id number]. FINDINGS: Brain: There is no acute intra-axial, extra-axial bleed, masses, collection or midline shift. There is no acute infarction in evolution or edema. The lateral ventricles are symmetrical in size but moderately enlarged. There is diffuse periventricular hypodensity in both cerebral hemispheres. Bone windows reveal no calvarial abnormality there is no scalp soft tissue abnormality. Bilateral paranasal sinuses and mastoid air cells are well-aerated. There is ange bullosa of left middle turbinate. Mild degenerative changes involving bilateral TM joints are noted. Abdomen and pelvis:. Lung bases: There is bilateral small pleural effusions with right lower lobe small infiltrate. Heart size normal. There is moderate coronary artery calcifications. No pericardial effusion seen. There are median sternotomy sutures from previous intervention. Liver, ducts and gallbladder: The liver is homogeneous in density, normal size and contour. No focal lesion or intrahepatic ductal dilatation seen. The CBD is dilated measuring 1.4 cm. Spleen: Unremarkable. Pancreas: The pancreas is homogeneous in density. There is mild bulbous thickening of tail of the pancreas. It corresponds to a low-density nonenhancing lesion measuring cyst on the previous CT 09/17/2022. It measures approximately 1.[address] Adrenal glands: Unremarkable. Kidneys and ureters: Both kidney are symmetrical in size, position and cortical thickness. No radiopaque calculi or hydronephrosis. Lymphovascular structures: There is atherosclerotic calcification of abdominal aorta without aneurysmal dilatation. No abnormal size retroperitoneal lymph nodes seen. Abdominal wall: There is a small umbilical hernia with a loop of small bowel partially extending into the hernia. There is no bowel obstruction. There is diffuse colonic diverticulosis without mural thickening or pericolic fat stranding. No obstruction. Appendix is normal caliber. No free air or free fluid seen. Pelvis: The uterus is anteverted with punctate calcification in lower uterine segment. No adnexal mass. No free fluid. Osseous structures: There is loss of T9, T12 and L5 superior endplate heights of indeterminate age. There is degenerative disc changes with vacuum disc phenomena at every disc level. A total right hip prosthesis is noted. CT/CT abdomen pelvis wo IV con IMPRESSION: No acute intracranial process seen. Right lower lobe small infiltrate with bilateral small pleural effusions. Mild cardiomegaly. Small simple cystic lesion tail of the pancreas, stable to last CT 09/17/2022. Colonic diverticulosis without diverticulitis. Superior endplate compression deformities T9, T12 and L5 endplates of indeterminate age. If patient has low back pain MRI or bone scan can be obtained.
--- NOTE | ~2022-11-02 | XR_ITS ---
EXAMINATION: XR CHEST CLINICAL INFORMATION: Fatigue COMPARISON: Previous chest x-ray most recent September 2022 TECHNIQUE: Frontal view of the chest was obtained. FINDINGS: The cardiac silhouette is enlarged but stable. Post-CABG changes. There is question of pulmonary venous redistribution. There are small bilateral pleural effusions. Findings are questionable for mild CHF. The lungs are clear. Degenerative changes of the spine and shoulders. Median sternotomy. XR/XR chest 1V IMPRESSION: Stable enlargement of the cardiac silhouette. Question mild CHF.
--- NOTE | 2022-11-02 13:00 | ED_ITS ---
HPI - Abdominal Pain General Chief Complaint: Abdominal Pain Stated Complaint: abd pain, ams per ems Time Seen by Provider: 11/02/22 12:54 Source: patient, family and old records reviewed Mode of arrival: EMS Limitations: other (poor historian) History of Present Illness HPI narrative: 81 yo female with PMH of COPD, pulmonary pseudomonas on inhaled tobramycin, CAD, PAF on aspirin, CHF, recent SBO with surgical repair of incarcerated umbilical hernia with Bard mesh on 09/18. She had repeat admission here on 10/08 to 10/10 for CHF/DIE FITTER with rapid afib increasing troponins - found to have chest pain and depressed EF on ECHO with wall motion abnormality in LAD territory. She just left [facility] yesterday (home at 630pm) after being transferred due to NSTEMI. I am waiting on the reports. She comes in today with c/o lethargy, abdominal pain, constipation, poor appetite and making statements about dying and taking the world with her. VNA is concerned about another SBO. The patient herself tells me she is dying and please just let her . She does note she has passed gas. note from [facility] states on DC she is alert and oriented x 3 11/01 MD elicited complaint: abdominal pain Pertinent past history: constipation Onset (ago): day(s) (1) Pain Consistency: constant Location: periumbilical Severity: moderate Quality: aching and fullness Radiation: none Migration to: no migration Exacerbating factors: nothing Relieving factors: nothing Context: recent surgery/procedure and history of similar episodes Associated symptoms: denies other symptoms Related Data Home Medications Medication Instructions Recorded Confirmed docusate sodium 100 mg capsule 100 mg PO BEDTIME 03/22/22 10/08/22 fluticasone propionate 50 1 spray intranasal BID 03/22/22 10/08/22 mcg/actuation nasal spray,suspension montelukast 10 mg tablet 10 mg PO BEDTIME 03/22/22 10/08/22 nebulizers 03/22/22 07/04/22 nitroglycerin 0.3 mg sublingual 0.3 mg sublingual Q5M PRN Chest 03/22/22 10/08/22 tablet Pain omeprazole 40 mg capsule,delayed 40 mg PO DAILY 03/22/22 10/08/22 release oxybutynin chloride 5 mg 5 mg PO DAILY 03/22/22 10/08/22 tablet,extended release 24 hr tramadol 50 mg tablet 50 mg PO BID 03/22/22 10/08/22 lisinopril 2.5 mg tablet 1 tab PO DAILY 04/06/22 10/08/22 umeclidinium 62.5 mcg-vilanterol 1 ea inhalation DAILY 05/24/22 10/08/22 25 mcg/actuation powdr for inhalation (Anoro Ellipta) apixaban 2.5 mg tablet (Eliquis) 2.5 mg PO BID 08/04/22 10/08/22 Ventolin 2 puff inhalation Q6H PRN Wheezing 09/17/22 10/08/22 Previous Rx's Medication Instructions Recorded levalbuterol HCl 1.25 mg/3 mL 1.25 mg (3 mL) inhalation QID 30 03/22/22 solution for nebulization (Xopenex) days #360 mL tobramycin 300 mg/5 mL in 0.225 % 300 mg (5 mL) inhalation BID 28 03/25/22 sodium chloride for nebulization days #280 mL (John) diltiazem HCl 240 mg 240 mg PO DAILY #30 caps 04/14/22 capsule,extended release 24 hr polyethylene glycol 3350 17 17 g PO DAILY #119 grams 09/22/22 gram/dose oral powder (Miralax) ferrous sulfate 325 mg (65 mg 325 mg PO DAILY 09/28/22 iron) tablet ciclesonide 160 mcg/actuation 1 puff inhalation Q12H 30 days 10/03/22 aerosol inhaler (Alvesco) #6.1 grams prednisone 5 mg tablet 5 mg PO DAILY 30 days #30 tabs 10/03/22 inhalational spacing device #1 ea 10/07/22 (Aerochamber MV spacer) atorvastatin 40 mg tablet (Lipitor) 40 mg PO BEDTIME #30 tabs 10/10/22 furosemide 10 mg/mL injection 40 mg IVPUSH DAILY #40 mL 10/10/22 solution Allergies Allergy/AdvReac Type Severity Reaction Status Date / Time carvedilol Allergy Shortness Verified 10/04/22 14:13 of Breath sertraline [From Zoloft] Allergy Shortness Verified 10/04/22 14:13 of Breath spironolactone Allergy Shortness Verified 10/04/22 14:13 of Breath Review of Systems Review of Systems Constitutional : No Fever, No Chills, pos fatigue ENT/Mouth : No sore throat, No Rhinorrhea Eyes: No Swelling, No Redness Cardiovascular : No Chest Pain, No SOB, NoEdema Respiratory : No Cough, No Sputum, No Wheezing Gastrointestinal : no Nausea, no Vomiting, no Diarrhea, positive abdominal Pain, No Hematochezia, No Melena, pos constipation Genitourinary : No Dysuria, No Urinary Frequency, No Hematuria, No Urgency Musculoskeletal : No joint pain, No Myalgias, No Joint Swelling Skin : No Skin Lesions, No rash Neuro : pos Weakness, No Numbness, No Dizziness, No Headache Psych : No Anxiety/Panic, pos Depression All other systems reviewed and are negative. [facility] Past Medical History Source: old records reviewed Medical History A-fib Acute encephalopathy Acute hypokalemia Acute respiratory failure with hypoxia Anemia Anemia Aspiration pneumonia Atrial fibrillation with RVR Bronchiectasis CAD (coronary artery disease) Chronic dyspnea COPD (chronic obstructive pulmonary disease) COPD (chronic obstructive pulmonary disease) Dyspnea GI bleed Heart failure Paroxysmal A-fib Pseudomonal pneumonia Pseudomonas respiratory infection Pulmonary nodules Surgical History H/O umbilical hernia repair (09/18/22) History of cholecystectomy History of hip replacement History of knee replacement History of quadruple bypass Family History Family History Other No family history of cancer Social History Social History Household Members: Family Housing: House Are you a primary primary care sales representative to a significant other at home: No Do you presently have visiting nurse or other home services: Yes Alcohol intake: never Patient Tobacco Use Status: Tobacco use Unknown Tobacco use type: Cigarette Smoked in Last 30 Days: No Use of substances other than those prescribed or required for medical reasons: No Advance Directives: Yes Advance Directives on File: Yes Advance Directives Date on File: 08/24/22 service: No Current occupational status: retired Physical Exam ED Vital Signs: Vital Signs - 24 hr 11/02/22 12:55 11/02/22 15:09 Temperature 99.4 F 98.3 F Pulse Rate 117 H 101 H Respiratory Rate 34 H 22 H Blood Pressure 111/75 161/48 H Pulse Oximetry 94 93 Oxygen Delivery Method Room Air Room Air BMI result Body Mass Index 24.4 Appearance: Alert. Oriented X to person she thinks she is at [facility]. No acute distress. Eyes: Pupils equal, round and reactive to light. ENT: Pharynx normal. Neck: Normal inspection. Neck supple. CVS: tachycardic irregular heart rate and rhythm. Pulses normal. Respiratory: No respiratory distress. Breath sounds both bases diminished. Abdomen: Soft with mild distention, reports moderate ttp along R periumbilical area. Skin: Skin warm and dry. Normal skin color. Normal skin turgor. Extremities: bilateral 1-2+ lower extremity edema. No calf ttp Neuro: Oriented X 1 No motor deficit. No sensory deficit. Course Course Course Narrative: per daughter Ximena SRINIVASAN came today and suggested that the patient is constipated ?SBO and patient is making statements about dying and taking the world with her and she is lethargic - she was newly put on remeron 8 days ago daughter didn't give it last night. daughter is worried the remeron is causing it. Reevaluation(s) Reevaluation #1: repleting mag, trop lower than baseline BNP elevated Reevaluation #2: [facility] cath - stress cardiomyopathy EF 40 to 45%, distal LM 70% no stents done delerium in hospital - told from hospital stay and [facility] but family per notes would not accept this. 10/29 Cr was 1.5 today she is at same range. pro BNP [id number] Reevaluation #3: RLL consolidation new from [facility] records would be HCAP though no WBC count I will order cefepime given no sig signs of illness I am holding vancomycin they can monitor while inpatient. at this time infection suspected 408pm. daughter denies choking episodes states the mom has only had water Medical Decision Making Medical Decision Making MDM Narrative: 81 yo female with PMH of COPD, pulmonary pseudomonas on inhaled tobramycin, CAD, PAF on aspirin, CHF, recent SBO 09/18, NSTEMI at the start of the month - transferred to [facility] with what sounds like prolonged stay at [facility] until discharge yesterday I am waiting on records. Now presents with c/o abdominal pain, constipation she has no vomiting she is passing gas. She is an unreliable historian. Her daughter states she is making unusual statements about dying and taking the world with her since starting remeron. At this time basic labs, la ctic acid, UA, CXR and cultures ordered. CT abdomen to rule out SBO ordered. No falls reported no focal exam - ICH seems unlikely she denies headache. Differential Diagnosis Differential Diagnoses: The differential diagnosis associated with the presentation includes constipation, SBO, medication reaction Admission/Observation Consideration of admission/observation: Escalation of care including admission/observation considered Consult Healthcare Provider Management of the patient was discussed with: Hospitalist Lab Data [facility] Lab Attestation statement: I reviewed the patient's lab results. 11/02/22 13:24 11/02/22 13:24 Labs: Lab Results 11/02/22 11/02/22 11/02/22 Range/Units 13:24 13:24 13:24 WBC 7.1 (4.8-10.8) X10*3/uL RBC 3.10 L (4.20-5.50) X10*6/uL Hgb 9.5 L (12.0-16.0) g/dl Hct 29.5 L (37.0-47.0) % MCV 95.2 (80.0-98.0) fL MCH 30.6 (27.0-33.0) pg MCHC 32.2 (31.0-35.0) g/dl RDW 16.8 H (11.0-16.0) % Plt Count 222 (160-400) X10*3/uL MPV 10.2 (9.4-12.3) fL Immature Gran % (Auto) 0.7 H (0.0-0.4) % Neut % (Auto) 79.0 H (45-73) % Lymph % (Auto) 11.4 L (20-40) % [place] % (Auto) 6.7 (2-11) % Eos % (Auto) 1.8 (0-4) % Baso % (Auto) 0.4 (0-2) % Lymph # (Auto) 0.8 L (1.2-4.9) X10*3/uL [place] # (Auto) 0.5 (0.1-1.2) X10*3/uL Eos # (Auto) 0.1 (0.0-0.4) X10*3/uL Baso # (Auto) 0.0 (0.0-0.2) X10*3/uL Abs Immat Gran (auto) 0.05 H (0.00-0.03) X10*3/uL Absolute Neuts (auto) 5.6 (2.0-8.3) x10*3/uL Absolute Nucleated RBC 0.000 (0.0-0.012) X10*3/uL Nucleated RBC % (auto) 0.0 (0.0-0.2) /100WBC PT (10.0-13.1) SEC INR (0.9-1.1) Sodium 142 (135-145) mmol/L Potassium 3.4 (3.3-5.1) mmol/L Chloride 95 L (96-108) mmol/L Carbon Dioxide 33 H (22-29) mmol/L Anion Gap 17 (12-20) BUN 29 H (9-16) mg/dL Creatinine 1.50 H (0.5-1.4) mg/dL Estim Creat Clear Calc 22.4 Estimated GFR 33 Random Glucose 145 H (60-115) mg/dL Lactic Acid (0.5-2.0) mmol/L Calcium 8.4 (8.4-10.2) mg/dL Magnesium 1.5 L (1.6-2.6) mg/dL Total Bilirubin 2.1 H (0.0-1.0) mg/dL Direct Bilirubin 0.8 H (0.0-0.5) mg/dL AST 37 H (5-31) U/L ALT 32 H (0-31) U/L Alkaline Phosphatase 292 H (39-117) U/L Troponin I High Sens 63.7 H* D (<3.5-17.0) ng/L B-Natriuretic Peptide (<100) pg/mL Total Protein 6.3 L (6.5-8.0) g/dL Albumin 3.2 L (3.5-5.0) g/dL Lipase 20 (8-78) U/L 11/02/22 11/02/22 11/02/22 Range/Units 13:24 13:24 13:24 WBC (4.8-10.8) X10*3/uL RBC (4.20-5.50) X10*6/uL Hgb (12.0-16.0) g/dl Hct (37.0-47.0) % MCV (80.0-98.0) fL MCH (27.0-33.0) pg MCHC (31.0-35.0) g/dl RDW (11.0-16.0) % Plt Count (160-400) X10*3/uL MPV (9.4-12.3) fL Immature Gran % (Auto) (0.0-0.4) % Neut % (Auto) (45-73) % Lymph % (Auto) (20-40) % [place] % (Auto) (2-11) % Eos % (Auto) (0-4) % Baso % (Auto) (0-2) % Lymph # (Auto) (1.2-4.9) X10*3/uL [place] # (Auto) (0.1-1.2) X10*3/uL Eos # (Auto) (0.0-0.4) X10*3/uL Baso # (Auto) (0.0-0.2) X10*3/uL Abs Immat Gran (auto) (0.00-0.03) X10*3/uL Absolute Neuts (auto) (2.0-8.3) x10*3/uL Absolute Nucleated RBC (0.0-0.012) X10*3/uL Nucleated RBC % (auto) (0.0-0.2) /100WBC PT 14.6 H (10.0-13.1) SEC INR 1.3 H (0.9-1.1) Sodium (135-145) mmol/L Potassium (3.3-5.1) mmol/L Chloride (96-108) mmol/L Carbon Dioxide (22-29) mmol/L Anion Gap (12-20) BUN (9-16) mg/dL Creatinine (0.5-1.4) mg/dL Estim Creat Clear Calc Estimated GFR Random Glucose (60-115) mg/dL Lactic Acid 1.8 (0.5-2.0) mmol/L Calcium (8.4-10.2) mg/dL Magnesium (1.6-2.6) mg/dL Total Bilirubin (0.0-1.0) mg/dL Direct Bilirubin (0.0-0.5) mg/dL AST (5-31) U/L ALT (0-31) U/L Alkaline Phosphatase (39-117) U/L Troponin I High Sens (<3.5-17.0) ng/L B-Natriuretic Peptide 597 H (<100) pg/mL Total Protein (6.5-8.0) g/dL Albumin (3.5-5.0) g/dL Lipase (8-78) U/L Independent Interpretation I performed an independent interpretation of an: EKG, Plain X-Ray and CT Scan Interpretation: Rate: 108 Rhythm: aflutter Tibbie: left Normal QRS complex. ST T wave : no MASSIMO, inverted t waves I and aVL, V5, qTC: 485 slightly prolonged prior studies: T waves noted on prior T waves september 17 The study has been interpreted contemporaneously by me. . Radiology Impression Discussion of test interpretation with radiology: I have reviewed the radiologist's reading. Independent Historian Clinical information obtained from an independent historian. History obtained from or confirmed by: Other (daughter provides a lot of the history) External Record Review External record reviewed: Inpatient record (from our hospital and DC summary from [facility]) and Outpatient record Medications Administered Discontinued Medications Generic Name Dose Route Start Last Admin Trade Name Gato PRN Reason Stop Dose Admin Acetaminophen 650 mg 11/02/22 13:12 11/02/22 13:34 Acetaminophen 325 Mg Tablet PO 11/02/22 13:13 650 mg ONCE ONE Administration Magnesium Sulfate 2 gm in 50 mls @ 25 mls/hr 11/02/22 13:52 11/02/22 15:19 Magnesium Sulfate/H2o IV 11/02/22 15:51 25 mls/hr ONCE ONE Administration Morphine Sulfate 2 mg 11/02/22 13:04 11/02/22 13:35 Morphine Sulfate 2 Mg/Ml Cartridge IVPUSH 11/02/22 13:05 2 mg ONCE ONE Administration Protocol IV morphine, oral tylenol Discharge Plan Discharge Clinical Impression: Abdominal pain, Encephalopathy acute, Hypomagnesemia Pneumonia Qualifiers: Pneumonia type: due to unspecified organism Laterality: right Lung location: lower lobe of lung Qualified Code(s): J18.9 - Pneumonia, unspecified organism Patient Disposition: Admitted As Inpatient
--- NOTE | 2022-11-02 13:02 | ECG_ITS ---
Test Reason : ABDOMINAL PAIN Blood Pressure : / mmHG Vent. Rate : 108 BPM Atrial Rate : 324 BPM P-R Int : 000 ms QRS Dur : 086 ms QT Int : 362 ms P-R-T Axes : 000 000 153 degrees QTc Int : 485 ms Artifact in tracing Atrial flutter with variable A-V block with premature ventricular or aberrantly conducted complexes Marked ST abnormality, possible lateral subendocardial injury Abnormal ECG When compared with ECG of 08-OCT-2022 12:20, ST now depressed in Lateral leads Nonspecific T wave abnormality, improved in Inferior leads T wave inversion now evident in Lateral leads Referred By: Maricel Harrison Electronically Signed By:ANETTE CABEZAS
[2022-11-02 13:30] LABS: MANUAL DIFF FLAG NO
[2022-11-02] MEDS: Acetaminophen 325 MG TABLET 650 MG PO (13:34)
[2022-11-02] MEDS: Morphine Sulfate 2 MG/ML CARTRIDGE IVPUSH (13:35)
[2022-11-02 13:38] LABS: Basophils Percent Auto 0.4 % (0-2); Eosinophils Absolute Auto 0.1 X10*3/uL (0.0-0.4); Eosinophils Percent Auto 1.8 % (0-4); Hematocrit 29.5 % (37.0-47.0); Hemoglobin 9.5 g/dl (12.0-16.0); Imm Gran Abs Auto 0.05 X10*3/uL (0.00-0.03); Imm Gran Pct Auto 0.7 % (0.0-0.4); Lymphocytes Absolute Auto 0.8 X10*3/uL (1.2-4.9); Lymphocytes Percent Auto 11.4 % (20-40); Mean Corpuscular HGB Conc 32.2 g/dl (31.0-35.0); Mean Corpuscular Hemoglobin 30.6 pg (27.0-33.0); Mean Corpuscular Volume 95.2 fL (80.0-98.0); Mean Platelet Volume 10.2 fL (9.4-12.3); Monocytes Absolute Auto 0.5 X10*3/uL (0.1-1.2); Monocytes Percent Auto 6.7 % (2-11); Neutrophils Absolute Auto 5.6 x10*3/uL (2.0-8.3); Platelet Count 222 X10*3/uL (160-400); Red Cell Distribution Width 16.8 % (11.0-16.0); White Blood Count 7.1 X10*3/uL (4.8-10.8)
[2022-11-02 13:43] LABS: Lactic Acid 1.8 mmol/L (0.5-2.0)
[2022-11-02 13:45] LABS: INTERNATIONAL NORM RATIO 1.3 (0.9-1.1); Prothrombin Time 14.6 SEC (10.0-13.1)
[2022-11-02 13:48] LABS: Alanine Aminotransferase 32 U/L (0-31); Albumin Level 3.2 g/dL (3.5-5.0); Alkaline Phosphatase 292 U/L (39-117); Anion Gap 17 (12-20); Aspartate Amino Transferase 37 U/L (5-31); Bilirubin Direct 0.8 mg/dL (0.0-0.5); Bilirubin Total 2.1 mg/dL (0.0-1.0); Blood Urea Nitrogen 29 mg/dL (9-16); Calcium 8.4 mg/dL (8.4-10.2); Carbon Dioxide 33 mmol/L (22-29); Chloride 95 mmol/L (96-108); Creatinine Clr Calc Pharmacy 22.4; Estimated Glomerular Filt Rate 33; Glucose Random 145 mg/dL (60-115); Lipase 20 U/L (8-78); Magnesium 1.5 mg/dL (1.6-2.6); Potassium 3.4 mmol/L (3.3-5.1); Sodium 142 mmol/L (135-145); Total Protein 6.3 g/dL (6.5-8.0)
[2022-11-02 13:53] LABS: B Type Natriuretic Peptide 597 pg/mL (<100)
[2022-11-02 13:58] LABS: Troponin-I High Sensitivity 63.7 ng/L (<3.5-17.0)
[2022-11-02] MEDS: Magnesium Sulfate/H2O 2 GM/50 ML PIGGYBACK IV (15:19)
[2022-11-02 17:09] LABS: Appearance Urine Clear; Color Urine Yellow; Glucose Urine UA Negative (Negative); Leukocyte Esterase Urine Moderate (2+) (Negative); Nitrite Urine Negative (Negative); PH 5.5 (5.0-9.0); Specific Gravity - Urine 1.015 (1.005-1.025); UMIC TRIGGER UACC YES; Urine Blood Moderate (2+) (Negative); Urine Ketones Trace mg/dL (Negative); Urine Protein Trace mg/dL (Neg-Trace)
[2022-11-02] MEDS: cefEPime HCl 1 GM in 0.9 % Sodium Chloride 50 ML IV (17:20)
[2022-11-02 17:24] LABS: Bacteria Urine None Seen (None Seen); RBC Urine >20 /HPF (0-2); Squamous Epithelial Cell Urine 0-2 /HPF (0-2); UACC Culture Trigger YES; WBC Urine 21-50 /HPF (0-5)
--- NOTE | 2022-11-02 17:35 | P.HPHOSP_ITS ---
History of Present Illness Date of Service: 11/02/22 Attending physician on admission: Gus Bradshaw Chief Complaint: delerium, abd pain 81-year-old female with COPD, history of pseudomonal pneumonia on inhaled tobramycin, coronary artery disease, paroxysmal atrial fibrillation on asa not c urrently on anticoagulation, congestive heart failure, VRE UTI, recent SBO s/p incarcerated umbilical hernia repair presented to the ED with her daughter for evaluation of lethargy, abdominal pain, constipation, poor appetite, and making statements about dying and taking the world with her. She was discharged last night from [facility] where she had been transferred after a brief admission at [facility] for NSTEMI. She underwent cardiac cath without stent placement. 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 She was also started on remeron during admissions which patient's daughter feels is the source of her delerium. She denies fevers, chills, sore throat, headaches, nausea, vomiting, diarrhea, dysuria, hematuria, increased urinary frequency lightheadedness, palpitations, sob or chest pain. She is complaining of productive cough confirmed by her daughter. She is only oriented to self and is intermittently confused. On arrival, patient tachycardic to 117, tachypneic to 34, afebrile, no hypotension. No leukocytosis. H/H 9.5/29.5%. PLT 225. Creat 1.50 (baseline 0.96), BUN 29. Lytes nromal except for mild hypercapnia 33 and magnesium 1.5. AST 37, ALT 32, total bilirubin 2.3, direct bilirubin 0.8, alkaline phosphatase 292, initial troponin 63.7, BNP 597 (pro BNP last measured at >47,000 at [facility]). Lactic acid 1.8. Urinalysis significant for 2+ leukocytes, negative nitrites, 2+ blood, positive urinary sediment, and negative bacteria. His CTs without any acute intracranial abnormality. CXR shows right lower lobe small infiltrate with bilateral small pleural effusions and mild cardiomegaly. CT abdomen/pelvis shows small stable cystic lesion in the tail the pancreas was colonic diverticulosis without diverticulitis. No acute abnormality. In the ED, treated with 2 g IV magnesium, 1 g cefepime, 2 mg morphine. Review of Systems Review of Systems: Yes all other systems are reviewed and are negative [facility] Medical History A-fib Acute encephalopathy Acute hypokalemia Acute respiratory failure with hypoxia Anemia Anemia Aspiration pneumonia Atrial fibrillation with RVR Bronchiectasis CAD (coronary artery disease) Chronic dyspnea COPD (chronic obstructive pulmonary disease) COPD (chronic obstructive pulmonary disease) Dyspnea GI bleed Heart failure History of infection with vancomycin resistant Enterococcus (VRE) Paroxysmal A-fib Pseudomonal pneumonia Pseudomonas respiratory infection Pulmonary nodules Family History Other No family history of cancer Surgical History H/O umbilical hernia repair (09/18/22) History of cholecystectomy History of hip replacement History of knee replacement History of quadruple bypass Social History Household Members: Family Housing: House Are you a primary child care nurse to a significant other at home: No Do you presently have visiting nurse or other home services: Yes Alcohol intake: never Patient Tobacco Use Status: Tobacco use Unknown Tobacco use type: Cigarette Smoked in Last 30 Days: No Use of substances other than those prescribed or required for medical reasons: No Advance Directives: Yes Advance Directives on File: Yes Advance Directives Date on File: 08/24/22 service: No Current occupational status: retired Meds Allergies Allergy/AdvReac Type Severity Reaction Status Date / Time carvedilol Allergy Shortness Verified 10/04/22 14:13 of Breath sertraline [From Zoloft] Allergy Shortness Verified 10/04/22 14:13 of Breath spironolactone Allergy Shortness Verified 10/04/22 14:13 of Breath Active Medications: Current Medications Acetaminophen (Acetaminophen 325 Mg Tablet) 650 mg PO Q6H PRN PRN Reason: Pain, Mild (Pain Scale 1-3) Docusate Sodium (Docusate Sodium 100 Mg Capsule) 100 mg PO DAILY PRN PRN Reason: Constipation Cefepime HCl 2 gm/ Sodium (Chloride) 50 mls @ 100 mls/hr IV Q8H [facility] Linezolid (Zyvox/D5w) 600 mg in 300 mls @ 300 mls/hr IV Q12H [facility] Ondansetron HCl (Ondansetron Hcl 4 Mg/2 Ml Vial) 4 mg IVPUSH Q8H PRN PRN Reason: Nausea and Vomiting Pharmacy Consult (Consult Rx Perform Med Rec) 1 each MISCELLANE ONCE PRN PRN Reason: Consult order Sodium Chloride (0.9 % Sodium Chloride Flush 3 Ml Syringe) 3 ml IVFLUSH QSHIFT [facility] Home Medications Medication Instructions Recorded Confirmed Last Taken Type docusate sodium 100 mg capsule 100 mg PO BEDTIME 03/22/22 10/08/22 10/08/22 History fluticasone propionate 50 1 spray intranasal BID 03/22/22 10/08/22 10/08/22 History mcg/actuation nasal spray,suspension montelukast 10 mg tablet 10 mg PO BEDTIME 03/22/22 10/08/22 10/08/22 History nebulizers 03/22/22 07/04/22 Unknown History nitroglycerin 0.3 mg sublingual 0.3 mg sublingual Q5M PRN Chest 03/22/22 10/08/22 10/08/22 History tablet Pain omeprazole 40 mg capsule,delayed 40 mg PO DAILY 03/22/22 10/08/22 10/08/22 History release oxybutynin chloride 5 mg 5 mg PO DAILY 03/22/22 10/08/22 10/08/22 History tablet,extended release 24 hr tramadol 50 mg tablet 50 mg PO BID 03/22/22 10/08/22 10/08/22 History lisinopril 2.5 mg tablet 1 tab PO DAILY 04/06/22 10/08/22 10/08/22 History umeclidinium 62.5 mcg-vilanterol 1 ea inhalation DAILY 05/24/22 10/08/22 10/08/22 History 25 mcg/actuation powdr for inhalation (Anoro Ellipta) apixaban 2.5 mg tablet (Eliquis) 2.5 mg PO BID 08/04/22 10/08/22 10/08/22 History Ventolin 2 puff inhalation Q6H PRN Wheezing 09/17/22 10/08/22 Unknown History Physical Exam Vital Signs and Narrative: Vital Signs: Last Vital Signs Temp 98 F 11/02/22 17:08 Pulse 80 11/02/22 17:08 Resp 26 H 11/02/22 17:08 BP 177/77 H 11/02/22 17:08 Pulse Ox 92 11/02/22 17:08 O2 Del Method Room Air 11/02/22 17:08 BMI result Body Mass Index 24.4 Constitutional - Awake and Alert, No apparent distress Eyes - PERRLA, EOMI Cardiovascular - S1S2, RRR, No edema Respiratory - Normal lung expansion, Normal respiratory effort, No respiratory distress, rhonchi RLL Gastrointestinal - mild diffuse ttp. ND; +BS; No rebound or guarding Extremities - no calf tenderness bilaterally, no swelling Musculoskeletal - Normal inspection, normal ROM Skin - Warm/Dry. large area dried blood from hemorrhagic bullae s/p I&D with flap in tact. No surrounding erythema. Shallow ulceration abdominal pannus in suprapubic and bilateral sides Neurological - Alert & oriented x3, CN II-XII in tact, 5/5 strength BUE and BLE Psychological - Appropriate affect Results Labs 11/02/22 13:24 11/02/22 13:24 Labs: Laboratory Results - last 24 hr 11/02/22 11/02/22 11/02/22 13:24 13:24 13:24 MCV 95.2 MCH 30.6 MCHC 32.2 RDW 16.8 H Plt Count 222 MPV 10.2 Immature Gran % (Auto) 0.7 H Neut % (Auto) 79.0 H Lymph % (Auto) 11.4 L [place] % (Auto) 6.7 Eos % (Auto) 1.8 Baso % (Auto) 0.4 Lymph # (Auto) 0.8 L [place] # (Auto) 0.5 Eos # (Auto) 0.1 Baso # (Auto) 0.0 Abs Immat Gran (auto) 0.05 H Absolute Neuts (auto) 5.6 Absolute Nucleated RBC 0.000 Nucleated RBC % (auto) 0.0 PT INR Anion Gap 17 Estim Creat Clear Calc 22.4 Estimated GFR 33 Random Glucose 145 H Lactic Acid Calcium 8.4 Magnesium 1.5 L Total Bilirubin 2.1 H Direct Bilirubin 0.8 H AST 37 H ALT 32 H Alkaline Phosphatase 292 H Troponin I High Sens 63.7 H* D B-Natriuretic Peptide Total Protein 6.3 L Albumin 3.2 L Lipase 20 Urine Color Urine Appearance Urine pH Ur Specific [place] Urine Protein Urine Glucose (UA) Urine Ketones Urine Blood Urine Nitrite Ur Leukocyte Esterase Urine RBC Urine WBC Ur Squamous Epith Cells Urine Bacteria Hyaline Casts Urine Yeast 11/02/22 11/02/22 11/02/22 13:24 13:24 13:24 MCV MCH MCHC RDW Plt Count MPV Immature Gran % (Auto) Neut % (Auto) Lymph % (Auto) [place] % (Auto) Eos % (Auto) Baso % (Auto) Lymph # (Auto) [place] # (Auto) Eos # (Auto) Baso # (Auto) Abs Immat Gran (auto) Absolute Neuts (auto) Absolute Nucleated RBC Nucleated RBC % (auto) PT 14.6 H INR 1.3 H Anion Gap Estim Creat Clear Calc Estimated GFR Random Glucose Lactic Acid 1.8 Calcium Magnesium Total Bilirubin Direct Bilirubin AST ALT Alkaline Phosphatase Troponin I High Sens B-Natriuretic Peptide 597 H Total Protein Albumin Lipase Urine Color Urine Appearance Urine pH Ur Specific [place] Urine Protein Urine Glucose (UA) Urine Ketones Urine Blood Urine Nitrite Ur Leukocyte Esterase Urine RBC Urine WBC Ur Squamous Epith Cells Urine Bacteria Hyaline Casts Urine Yeast 11/02/22 16:51 MCV MCH MCHC RDW Plt Count MPV Immature Gran % (Auto) Neut % (Auto) Lymph % (Auto) [place] % (Auto) Eos % (Auto) Baso % (Auto) Lymph # (Auto) [place] # (Auto) Eos # (Auto) Baso # (Auto) Abs Immat Gran (auto) Absolute Neuts (auto) Absolute Nucleated RBC Nucleated RBC % (auto) PT INR Anion Gap Estim Creat Clear Calc Estimated GFR Random Glucose Lactic Acid Calcium Magnesium Total Bilirubin Direct Bilirubin AST ALT Alkaline Phosphatase Troponin I High Sens B-Natriuretic Peptide Total Protein Albumin Lipase Urine Color Yellow Urine Appearance Clear Urine pH 5.5 Ur Specific [place] 1.015 Urine Protein Trace Urine Glucose (UA) Negative Urine Ketones Trace Urine Blood Moderate (2+) H Urine Nitrite Negative Ur Leukocyte Esterase Moderate (2+) H Urine RBC >20 H Urine WBC 21-50 H Ur Squamous Epith Cells 0-2 Urine Bacteria None Seen Hyaline Casts 3-5 Urine Yeast Present Imaging Radiologist's Impressions: Impressions Chest X-Ray 11/02/22 14:53 IMPRESSION: Stable enlargement of the cardiac silhouette. Question mild CHF. Abdomen/Pelvis CT 11/02/22 14:55 IMPRESSION: No acute intracranial process seen. Right lower lobe small infiltrate with bilateral small pleural effusions. Mild cardiomegaly. Small simple cystic lesion tail of the pancreas, stable to last CT 09/17/2022. Colonic diverticulosis without diverticulitis. Superior endplate compression deformities T9, T12 and L5 endplates of indeterminate age. If patient has low back pain MRI or bone scan can be obtained. Head CT 11/02/22 14:55 IMPRESSION: No acute intracranial process seen. Right lower lobe small infiltrate with bilateral small pleural effusions. Mild cardiomegaly. Small simple cystic lesion tail of the pancreas, stable to last CT 09/17/2022. Colonic diverticulosis without diverticulitis. Superior endplate compression deformities T9, T12 and L5 endplates of indeterminate age. If patient has low back pain MRI or bone scan can be obtained. Assessment and Plan (1) Pneumonia: Qualifiers: Laterality: right Lung location: lower lobe of lung Pneumonia type: due to unspecified organism Qualified Code(s): J18.9 - Pneumonia, unspecified organism Status: Acute (2) Encephalopathy acute: Status: Acute (3) UTI (urinary tract infection): Status: Acute (4) CANDIDO (acute kidney injury): Status: Acute Plan 81-year-old female with COPD, history of pseudomonal pneumonia on inhaled tobramycin, coronary artery disease, paroxysmal atrial fibrillation on asa not currently on anticoagulation, congestive heart failure, VRE UTI, recent SBO s/p incarcerated umbilical hernia repair admitted for hospital acquired pneumonia, UTI, metabolic encephalopathy with severe sepsis. #Severe sepsis- secondary to pneumonia and UTI -Abx as below -Lactic acid normal, blood cultures pending -Tachypneic to 34, tachycardic to 117, CANDIDO, bili 2.1. VBG pending -gentle ivf #Acute hospital acquired pneumonia with concern for aspiration given persistent metabolic encephalopathy since prior admission at [facility] -IV cefepime and linezolid (initiated 11/03) -Strep pneumo ag, legionella ag, sputum culture pending -Symptomatic management -Apprecaite ID input -Follow cultures #Acute UTI -Positive UC with VRE at [facility] 10/24. Treated with ampicillin -UA with 2+ leuks, 2+ blood, neg nitrites, positive urinary sediment -Pt not best historian -Will cover for VRE with linezolid and continue cefepime as above -Follow cultures #Acute kidney injury -secondary to above -gentle IVF, treat as above #Acute metabolic encephalopathy -ongoing for several weeks -likely related to above -treat as above. Hold remeron as daughter feels strongly this is contributatory -consider psych eval. No active SI #Constipation, likely chronic -no obstruction seen on ct -Continue miralax, docusate -Add one time dulcolax #CAD- no anginal cp -Trop 65, was 86 at [facility] -EKG nonischemic -continue atorvastatin, isosorbide, asa #Paroxysmal afil- rate controlled -Eliquis on hold due to recent heparin induced thrombocytopenia with hemorrhagic bullae requiring blood transfusion. H/H improved. Continue holding for now -continue asa -contineu rate control meds #HFrEF -continue po torsemide -no acute exacberation #COPD- no acute exacerbation -continue home inhalers, albuterol prn #HIstory pseudomonal pneumonia -Uses tobramycin 28d on and then off. Currently on break from tobramycin x 28 days DVT prophylaxis- SCPs Full code- confirmed witih pt daugher Pt requires inpt stay at least 2 midnights for management of pneumonia with severe sepsis and acute metabolic encephalopathy Time Spent With Patient Time: Total time managing care of this patient today ____ minutes. Quality Stroke Does the patient have a stroke diagnosis?: No VTE Prior VTE?: No VTE Risk Level:: Medical - moderate - high VTE Device Contraindication: N/A - Device Ordered VTE Drug Contraindication: Treatment Not Indicated
[2022-11-02] MEDS: 0.9 % Sodium Chloride 1,000 ML 75 ML IVCONT (19:19)
[2022-11-02] MEDS: Linezolid/D5W 600 MG/300 ML PIGGYBACK 300 MG IV (19:19)
--- NOTE | 2022-11-02 19:21 | PHA.MEDREC ---
Pharmacy Consult ? Medication Reconciliation Pharmacy has completed the medication reconciliation. spoke with Ximena (patients daughter). According to Ximena, the discharge papers from [facility] says they discontinued the patient's diltiazem, eliquis, furosemide, lisinopril, omeprazole and started atorvastatin, thiamine, torsemide, isosorbide, low-dose aspirin, and pantoprazole as of yesterday. Her tramadol was recently changed from 50mg BID to 25mg BID. Xmiena stopped giving the patient Remeron as she noticed negative effects from it. Patient is not currently taking her tobramycin inhalation (28 days on, 28 days off) and does not restart until November according to Ximena. The only treatment the patient received today was the levalbuterol inhalation and her daughter explained how she refused everything else this morning.
[2022-11-02] MEDS: bisacodyL 10 MG SUPP.RECT PR (20:16)
[2022-11-02] MEDS: cefEPime HCl 2 GM in 0.9 % Sodium Chloride 50 ML IV (23:55)
[2022-11-02] MEDS: 0.9 % Sodium Chloride Flush 3 ML SYRINGE IVFLUSH (23:57)
--- NOTE | 2022-11-03 00:28 | PC.NURSE ---
PATIENT HAS MULTIPLE SKIN TEARS AND BRUISING GENERALIZED THROUGHOUT SKIN. STAGE 1 FOUND ON BOTTOM AND BARRIER CREAM + ALLEVYN APPLIED FOR PROTECTION. UNDER ABDOMINAL FOLD/RUPERT AREA PATIENT ALSO HAS OLD SURGICAL WOUND FROM CARDIAC CATH DONE LAST WEEK AT [facility] THAT DAUGHTER WAS TOLD BY [facility] THAT THE SURGICAL SITE MAY BE INFECTED. SITE LOOKS RED BUT NO DRAINAGE. PER PATIENTS DAUGHTER, PATIENT ALSO HAD HEMATOMA FROM PREVIOUS IV SITE THAT INFILTRATED THAT WAS ON HER RIGHT FOREARM FROM PREVIOUS HOSPITAL STAY AT [facility] THAT HAD TO BE SURGICALLY REMOVED. BILATERAL LOWER EXTREMETIES HAVE SOME DISCOLORATION BUT NO OPEN AREAS. WOUND RN CONSULT ORDERED.
[2022-11-03 04:00] VITALS: BP 148/71; PULSE 90; RESP 17; TEMP 36.1; O2SAT 92
[2022-11-03] MEDS: Linezolid/D5W 600 MG/300 ML PIGGYBACK 300 MG IV ×2 (05:30→17:30)
[2022-11-03 07:30] VITALS: BP 180/81; PULSE 81; RESP 18; TEMP 36.4; O2SAT 93
[2022-11-03 07:42] LABS: MANUAL DIFF FLAG NO
[2022-11-03 07:51] LABS: Basophils Absolute Auto 0.1 X10*3/uL (0.0-0.2); Basophils Percent Auto 0.5 % (0-2); Eosinophils Absolute Auto 0.4 X10*3/uL (0.0-0.4); Eosinophils Percent Auto 3.8 % (0-4); Hematocrit 26.3 % (37.0-47.0); Hemoglobin 8.9 g/dl (12.0-16.0); Imm Gran Abs Auto 0.06 X10*3/uL (0.00-0.03); Imm Gran Pct Auto 0.7 % (0.0-0.4); Lymphocytes Absolute Auto 1.6 X10*3/uL (1.2-4.9); Lymphocytes Percent Auto 17.6 % (20-40); Mean Corpuscular HGB Conc 33.8 g/dl (31.0-35.0); Mean Corpuscular Hemoglobin 31.8 pg (27.0-33.0); Mean Corpuscular Volume 93.9 fL (80.0-98.0); Mean Platelet Volume 10.5 fL (9.4-12.3); Monocytes Absolute Auto 0.6 X10*3/uL (0.1-1.2); Neutrophils Absolute Auto 6.6 x10*3/uL (2.0-8.3); Neutrophils Percent Auto 71.4 % (45-73); Platelet Count 246 X10*3/uL (160-400); Red Cell Distribution Width 17.1 % (11.0-16.0); White Blood Count 9.2 X10*3/uL (4.8-10.8)
[2022-11-03] MEDS: 0.9 % Sodium Chloride 1,000 ML 75 ML IVCONT (08:03)
[2022-11-03] MEDS: traMADoL HCL 50 MG TABLET 25 MG PO ×2 (08:04→19:41)
[2022-11-03] MEDS: cefEPime HCl 2 GM in 0.9 % Sodium Chloride 50 ML IV (08:04)
[2022-11-03] MEDS: Torsemide 20 MG TABLET 40 MG PO (08:08)
[2022-11-03] MEDS: Docusate Sodium 100 MG CAPSULE PO ×2 (08:08→19:43)
[2022-11-03] MEDS: Aspirin Enteric Coated 81 MG TABLET.DR PO (08:09)
[2022-11-03] MEDS: Multivitamin TABLET 1 TAB PO (08:09)
[2022-11-03] MEDS: predniSONE 5 MG TABLET PO (08:09)
[2022-11-03] MEDS: Isosorbide Mononitrate 30 MG TAB.ER.24H PO (08:09)
[2022-11-03] MEDS: Thiamine HCL 100 MG TABLET PO ×2 (08:09→19:43)
[2022-11-03] MEDS: oxyBUTYnin chloride ER 5 MG TAB.ER.24 PO (08:09)
[2022-11-03 08:23] LABS: Anion Gap 17 (12-20); Blood Urea Nitrogen 23 mg/dL (9-16); Calcium 8.1 mg/dL (8.4-10.2); Carbon Dioxide 26 mmol/L (22-29); Chloride 99 mmol/L (96-108); Creatinine Clr Calc Pharmacy 30.5; Estimated Glomerular Filt Rate 47; Glucose Random 159 mg/dL (60-115); Potassium 3.2 mmol/L (3.3-5.1); Sodium 139 mmol/L (135-145)
--- NOTE | 2022-11-03 10:59 | MHC.CM.PN ---
CALL FROM RNEAMON, OF [facility] PATIENT WAS A NON-ADMIT WITH [facility]ENCY AND THEY ARE UNABLE TO OFFER SERVICES.
[2022-11-03 11:40] VITALS: PULSE 81; RESP 16; O2SAT 94
--- NOTE | 2022-11-03 13:01 | MHC.CM.PN ---
Addendum entered by Frieda Barkley RN 11/03/22 13:59: [facility] CONFIRMED THAT THEY ARE UNABLE TO OFFER SERVICES. REFERRAL NOW INCLUDES ADDITIONAL REQUESTS Original Note: PATIENT IS A READMIT LIVES WITH HCP/DAUGHTER, [place] COPY OF HCP ON FILE AND VERIFIED. [place] AND PATIENT DO NOT WANT ANY REHAB STAY. [place] TELS THIS PENOLOGY PROFESSOR THAT SHE RECEIVED [facility] THAT THE ACCEPT PATIENT. THIS PENOLOGY PROFESSOR RECEIVED A CALL SAYING THEY DO NOT ACCEPT PATIENT. REFERRAL PLACED FOR CONFIRMATION. DAUGHTER STATES THERE IS HOME O2 IN THE HOME BUT THAT PATIENT HAS NOT NEEDED. CASE MANAGEMENT FOLLOWING NO PLAN FOR DC TODAY IMM 11/03 IN CHART
--- NOTE | 2022-11-03 13:57 | HO.PM.IMPN ---
Subjective Subjective Date of Service: 11/03/22 Interval History: No acute issues overnight. Mild desaturation responded to O2 Physical Exam Vital Signs: Vital Signs: Last Vital Signs Temp 97.6 F 11/03/22 07:30 Pulse 81 11/03/22 11:40 Resp 16 11/03/22 11:40 BP 180/81 H 11/03/22 07:30 Pulse Ox 93 11/03/22 07:30 O2 Del Method Nasal Cannula 11/03/22 07:30 O2 Flow Rate 2 11/03/22 07:30 BMI result Body Mass Index 24.4 Const: Other: Awake confused no acute distress Resp: Other: Diffuse coarse rhonchi throughout with scattered wheezes Cardio: Other: No S4; positive S1-S2; no S3 murmurs rubs or gallops GI: Other: Soft nontender nondistended normoactive bowel sounds Extrem: Other: No edema bilateral Objective Data Active Medications Acetaminophen (Acetaminophen 325 Mg Tablet) 650 mg PO Q6H PRN PRN Reason: Pain, Mild (Pain Scale 1-3) Albuterol Sulfate (Albuterol Sulfate 90 Mcg 8 Gm Inhaler) 2 puff INHALE Q4H PRN PRN Reason: Shortness Of Breath Or Wheezing Aspirin (Aspirin Enteric Coated 81 Mg Tablet.Dr) 81 mg PO DAILY [facility] Last Admin: 11/03/22 08:09 Dose: 81 mg Documented By: MISTY Atorvastatin Calcium (Atorvastatin Calcium 40 Mg Tablet) 40 mg PO BEDTIME [facility] Albuterol Sulfate 2.5 mg/ (Albuterol/Ipratropium 3 ml) 0 mg INHALE Q4H [facility] Last Admin: 11/03/22 11:38 Dose: 2.5 each Documented By: SOHAM Docusate Sodium (Docusate Sodium 100 Mg Capsule) 100 mg PO DAILY PRN PRN Reason: Constipation Docusate Sodium (Docusate Sodium 100 Mg Capsule) 100 mg PO BID [facility] Last Admin: 11/03/22 08:08 Dose: 100 mg Documented By: MISTY Fluticasone Propionate (Fluticasone Propionate Nasal 16 Gm [place]) 1 spray NOSTRIL-B BID [facility] Guaifenesin (Guaifenesin 200 Mg/10 Ml 10 Ml Liquid) 10 ml PO Q4H PRN PRN Reason: Cough Linezolid (Zyvox/D5w) 600 mg in 300 mls @ 300 mls/hr IV Q12H [facility] Last Infusion: 11/03/22 08:10 Dose: 0 mls/hr Documented By: MISTY Sodium Chloride (Ns) 1,000 mls @ 75 mls/hr IVCONT .[id number] [facility] Last Admin: 11/03/22 08:03 Dose: 75 mls/hr Documented By: MISTY Cefepime HCl 2 gm/ Sodium (Chloride) 50 mls @ 100 mls/hr IV Q12H [facility] Isosorbide Mononitrate (Isosorbide Mononitrate 30 Mg Tab.Er.24h) 30 mg PO DAILY [facility]; Protocol Last Admin: 11/03/22 08:09 Dose: 30 mg Documented By: MISTY Levalbuterol HCl (Levalbuterol Hcl 1.25 Mg/3 Ml Vial.Neb) 1.25 mg INHALE TID [facility] Last Admin: 11/03/22 10:15 Dose: Not Given Documented By: SOHAM Non-Admin Reason: Patient Refused Montelukast Sodium (Montelukast Sodium 10 Mg Tablet) 10 mg PO BEDTIME [facility] Multivitamins/Vitamin C (Multivitamin Tablet) 1 tab PO DAILY [facility] Last Admin: 11/03/22 08:09 Dose: 1 tab Documented By: MISTY Non-Formulary Medication (Umeclidinium-Vilanterol [Anoro Ellipta]) 1 each INHALE DAILY [facility] Omeprazole (Omeprazole 20 Mg Capsule.Dr) 20 mg PO BID@0600,1630 [facility] Ondansetron HCl (Ondansetron Hcl 4 Mg/2 Ml Vial) 4 mg IVPUSH Q8H PRN PRN Reason: Nausea and Vomiting Oxybutynin Chloride (Oxybutynin Chloride Er 5 Mg Tab.Er.24) 5 mg PO DAILY [facility] Last Admin: 11/03/22 08:09 Dose: 5 mg Documented By: MISTY Pharmacy Consult (Consult Rx Perform Med Rec) 1 each MISCELLANE ONCE PRN PRN Reason: Consult order Potassium Chloride (Potassium Chloride Packet 20 Meq Packet) 40 meq PO BID [facility] Stop: 11/03/22 21:01 Prednisone (Prednisone 5 Mg Tablet) 5 mg PO DAILY [facility] Last Admin: 11/03/22 08:09 Dose: 5 mg Documented By: MISTY Sodium Chloride (0.9 % Sodium Chloride Flush 3 Ml Syringe) 3 ml IVFLUSH QSHIFT [facility] Last Admin: 11/03/22 08:17 Dose: Not Given Documented By: SOHAM Non-Admin Reason: Patient Refused Thiamine HCl (Thiamine Hcl 100 Mg Tablet) 100 mg PO BID [facility] Last Admin: 11/03/22 08:09 Dose: 100 mg Documented By: MISTY Tobramycin Sulfate (Tobramycin Sulfate 80 Mg/2 Ml Vial) 300 mg INHALE Q12H [facility] Torsemide (Torsemide 20 Mg Tablet) 40 mg PO DAILY [facility]; Protocol Last Admin: 11/03/22 08:08 Dose: 40 mg Documented By: MISTY Tramadol HCl (Tramadol Hcl 50 Mg Tablet) 25 mg PO BID [facility] Last Admin: 11/03/22 08:04 Dose: 25 mg Documented By: MISTY Labs 11/03/22 07:33 11/03/22 07:33 Labs: Laboratory Results - last 24 hr 11/02/22 11/02/22 11/03/22 13:24 16:51 07:33 MCV 93.9 MCH 31.8 MCHC 33.8 RDW 17.1 H Plt Count 246 MPV 10.5 Immature Gran % (Auto) 0.7 H Neut % (Auto) 71.4 Lymph % (Auto) 17.6 L [place] % (Auto) 6.0 Eos % (Auto) 3.8 Baso % (Auto) 0.5 Lymph # (Auto) 1.6 [place] # (Auto) 0.6 Eos # (Auto) 0.4 Baso # (Auto) 0.1 Abs Immat Gran (auto) 0.06 H Absolute Neuts (auto) 6.6 Absolute Nucleated RBC 0.000 Nucleated RBC % (auto) 0.0 Anion Gap Estim Creat Clear Calc Estimated GFR Random Glucose Calcium Troponin I High Sens 63.7 H* D Urine Color Yellow Urine Appearance Clear Urine pH 5.5 Ur Specific [place] 1.015 Urine Protein Trace Urine Glucose (UA) Negative Urine Ketones Trace Urine Blood Moderate (2+) H Urine Nitrite Negative Ur Leukocyte Esterase Moderate (2+) H Urine RBC >20 H Urine WBC 21-50 H Ur Squamous Epith Cells 0-2 Urine Bacteria None Seen Hyaline Casts 3-5 Urine Yeast Present 11/03/22 07:33 MCV MCH MCHC RDW Plt Count MPV Immature Gran % (Auto) Neut % (Auto) Lymph % (Auto) [place] % (Auto) Eos % (Auto) Baso % (Auto) Lymph # (Auto) [place] # (Auto) Eos # (Auto) Baso # (Auto) Abs Immat Gran (auto) Absolute Neuts (auto) Absolute Nucleated RBC Nucleated RBC % (auto) Anion Gap 17 Estim Creat Clear Calc 30.5 Estimated GFR 47 Random Glucose 159 H Calcium 8.1 L Troponin I High Sens Urine Color Urine Appearance Urine pH Ur Specific [place] Urine Protein Urine Glucose (UA) Urine Ketones Urine Blood Urine Nitrite Ur Leukocyte Esterase Urine RBC Urine WBC Ur Squamous Epith Cells Urine Bacteria Hyaline Casts Urine Yeast Microbiology Microbiology Results: Microbiology 11/02/22 Unknown Urine Culture - Preliminary Urine clean catch - Urine mcdonald top Culture in progress. Assessment and Plan (1) Pneumonia: Status: Acute (2) Encephalopathy acute: Status: Acute (3) UTI (urinary tract infection): Status: Acute (4) CANDIDO (acute kidney injury): Status: Acute Plan 81-year-old female with COPD, history of pseudomonal pneumonia on inhaled tobramycin, coronary artery disease, paroxysmal atrial fibrillation on asa not currently on anticoagulation, congestive heart failure, VRE UTI, recent SBO s/p incarcerated umbilical hernia repair admitted for hospital acquired pneumonia, UTI, metabolic encephalopathy with severe sepsis. 1.Severe sepsis- secondary to pneumonia and UTI -resolved 2.Acute hospital acquired pneumonia with concern for aspiration given persistent metabolic encephalopathy since prior admission at [facility] -IV cefepime/linezolid (2) -cultures pending -continue inhaled tobramycin as previously taken 3.Acute UTI -linezolid/cefepime as above -Follow cultures 4.Acute kidney injury -secondary to above -improved with fluids -follow renals/divalents 5.Acute metabolic encephalopathy -Hold remeron ... Follow clinically -consider psych eval. No active SI 6.Paroxysmal afib -rate control adequate -hold anticoagulants SCPs Full code Requires ongoing hospitalization for IV antibiotics to treat presumed pneumonia causing encephalopathy Time Spent With Patient Time: Total time managing care of this patient today ____ minutes. Quality Stroke Does the patient have a stroke diagnosis?: No VTE Prior VTE?: No VTE Risk Level:: Medical - moderate - high VTE Device Contraindication: N/A - Device Ordered VTE Drug Contraindication: Treatment Not Indicated
[2022-11-03] MEDS: Potassium Chloride Packet 20 MEQ PACKET 40 MEQ PO ×2 (14:25→19:42)
[2022-11-03] MEDS: Omeprazole 20 MG CAPSULE.DR PO (15:29)
[2022-11-03 15:38] VITALS: BP 157/81; PULSE 83; RESP 17; TEMP 36.3; O2SAT 96
--- NOTE | 2022-11-03 15:46 | HO.WOUND ---
Wound Care Consult Reason for consult: hemorrhagic bulla on right dorsal hand/wrist, superficial wound abdominal pannus Patient has multiple wounds areas. 1. Wound on right dorsal hand/wrist. Xeroform, DCD and reese removed from the hand. Wound bed is all eschar and old blood filled bulla. Wound edges were intact. Very small serosanginous drainage on dressing. Patients skin is very paper thin and bruised. Wound area measures 4.5cm x 5.3cm x 0.1cm. Wound was covered with the oil emulsion dressing, covered with non woven gauze and reese wrap. Also used the elastic retention netting #4 to help keep dressing in place. 2. Wound on the midline abdominal fold. Wound was open to air on consult. Wound bed was mostly granular with a small amount of fibrin. Wound edges were attached and well defined. No undermining or tunneling noted. No odor. Periwound did have some scarring. Wound measured 0.4cm x 1.9cm x 0.1cm. Wound was cleansed with sea clens, woun'Dres (collagen hydrogel) was applied to wound bed, covered with DCD, skin prepped area and lightly secured with tape. 3. Skin tear on left upper arm. Xeroform was removed on visit. Wound bed was mostly granular wih some fibrin/slough. Wound edges were intact. Flap of skin questionable if it will take. Some ecchymotic area around the skin tear. Small serosanguinous drainage on xeroform. Skin tear area measured 1.1cm x 2.2cm x 0.1cm. Wound cleansed with sea clens, double layer of xeroform applied to wound, DCD and elastic retention netting #5 applied due to the patients skin integrity. 4. Excoriated areas in left groin. Applied barrier cream and folded a 4x4 gauze to help keep skin dry and . Recommendation: 1. Family stated that patient was being seen by surgery at [facility] for the hand but her appt was yesterday 11/02 which she missed due to being admitted here. They did reschedule the appt but it's not until November 17. They had recommended that adaptic (oil emulsion dressing) be applied with DCD and reese daily. This is fine to continue with but would recommend hand specialist Dr. Valery Rucker be consulted for debridement of the wound on the patients hand. 2. Family did mention that [facility] stated the wound on her abdominal fold looked infected. At this time wound does not look infected. Wound recommend applying thin layer of woun'Dres to wound bed, cover with DCD, skin prep area that is being taped and lightly secure with tape. 3. Skin tear on the left upper arm, cleanse wound with sea clens, apply double layer of xeroform ( so it doesn't dry out and adhere to wound bed), cover with DCD and use elastic retention netting to hold in place due to patients delicate skin. 4. May apply zinc oxide barrier cream to excoriated areas in groin folds. If moisture still persists may need to use gauze to separate areas until excoriation goes away.
[2022-11-03 19:40] VITALS: BP 120/65; PULSE 60; RESP 17; TEMP 36.3; O2SAT 96
[2022-11-03] MEDS: Atorvastatin Calcium 40 MG TABLET PO (19:42)
[2022-11-03] MEDS: Montelukast Sodium 10 MG TABLET PO (19:43)
[2022-11-03 20:16] VITALS: PULSE 54; RESP 16; O2SAT 99
[2022-11-03] MEDS: levalbuterol HCL 1.25 MG/3 ML VIAL.NEB INHALE (20:25)
[2022-11-04] VITALS (9 sets, daily range): BP systolic 132–140; BP diastolic 61–67; PULSE 65–82; RESP 16–17; TEMP -17.7–36.3; O2SAT 94–97
[2022-11-04] MEDS: cefEPime HCl 2 GM in 0.9 % Sodium Chloride 50 ML IV ×3 (00:09→23:28)
[2022-11-04] MEDS: Omeprazole 20 MG CAPSULE.DR PO (06:24)
[2022-11-04] MEDS: Linezolid/D5W 600 MG/300 ML PIGGYBACK 300 MG IV ×2 (06:24→18:07)
[2022-11-04] MEDS: 0.9 % Sodium Chloride 1,000 ML 75 ML IVCONT (08:46)
[2022-11-04] MEDS: PT OWN (Umeclidinium-Vilanterol [Anoro Ellipta] 62.5-25 mcg/actuation bl 1 EACH INHALE (08:49)
[2022-11-04] MEDS: traMADoL HCL 50 MG TABLET 25 MG PO ×2 (08:50→21:43)
[2022-11-04] MEDS: Multivitamin TABLET 1 TAB PO (08:51)
[2022-11-04] MEDS: Thiamine HCL 100 MG TABLET PO ×2 (08:51→21:43)
[2022-11-04] MEDS: predniSONE 5 MG TABLET PO (08:51)
[2022-11-04] MEDS: oxyBUTYnin chloride ER 5 MG TAB.ER.24 PO (08:51)
[2022-11-04] MEDS: Torsemide 20 MG TABLET 40 MG PO (08:51)
[2022-11-04] MEDS: Aspirin Enteric Coated 81 MG TABLET.DR PO (08:51)
[2022-11-04] MEDS: Docusate Sodium 100 MG CAPSULE PO (08:52)
[2022-11-04] MEDS: Isosorbide Mononitrate 30 MG TAB.ER.24H PO (08:52)
--- NOTE | 2022-11-04 10:34 | MHC.SL.SWA ---
Speech Pathologist Impression: Risk of aspiration, oropharyngeal dysphagia Risk of Aspiration Due to: History of Pneumonia Poor PO Intake Dysphasia Diet Status: No changes. Recommend continue with chopped (NDD3) diet as pt is edentulous and does not have dentures with her. Moisten food well with sauces and gravies. AVOID tough to chew solids; sticky or dry foods. Recommend assist pt with tray set up and ensuring food is accessible and cut into small bite size pieces, moistened with sauce/gravy. Continue w/ intermittent supervision. Liquid Consistency and Strategies for Safe Swallow: Liquid Intake Recommendation: Thin Liquid Intake Strategies: Small Sips No Straws Solid Food Consistency: Dietary Recommendations: Chopped/Advanced (NDD3) Additional Modifications to Solid Foods: Patient is able to independently feed self, but may need periodic supervision, to assure she is progressing with her meal without difficulty. Encourage small bites and sips. Oral Medication Intake: Whole with Liquid Please contact the pharmacy regarding appropriate crushable or liquid drug formulations that are available whenever modified delivery is recommended. Compensatory Strategies and Precautions to be Taken for Safe Swallow: Sitting Upright (90 deg) Double Swallow No Straw Small Bites and Sips Alternate Liquids/Solids Rate of Ingestion Change Oral Check Avoid Specific Foods Supervision While Eating and Drinking for Safe Swallow: Intermittent Supervision Foods to Avoid: Tough, difficult to chew solids, large pieces of food. Swallowing Recommended Treatments: Compens. Strategy Educat. Recommendation for Speech: D/C Please re-refer with any changes or if RETIREMENT ADMINISTRATOR can be of further assistance. Gas Scrubber Operator Clinican/Clinical Fellow: No Supervisory Statement: I have reviewed and agree with the student/clinical fellow's documentation: N/A Speech Language Pathologist: Rebekah Bagley M.A., [facility]-RETIREMENT ADMINISTRATOR
--- NOTE | 2022-11-04 13:20 | MHC.CM.PN ---
PLAN IS FOR DC HOME WITH RESUMPTION OF [facility]. DC PLANNED FOR SUNDAY 11/05. DAUGHTER (IN ROOM) AND PATIENT AWARE THEY ASK FOR AN AMBULANCE TRANSFER FOR ANYTIME AFTER NOON.
[2022-11-04] MEDS: levalbuterol HCL 1.25 MG/3 ML VIAL.NEB INHALE (14:18)
--- NOTE | 2022-11-04 14:26 | HO.PM.IMPN ---
Subjective Subjective Date of Service: 11/04/22 Interval History: No acute issues overnight. Remains pleasantly can not diffuse but alert Physical Exam Vital Signs: Vital Signs: Last Vital Signs Temp 96.8 F 11/04/22 08:00 Pulse 65 11/04/22 08:51 Resp 16 11/04/22 08:51 BP 140/67 H 11/04/22 08:00 Pulse Ox 94 11/04/22 08:00 O2 Del Method Room Air 11/04/22 08:00 O2 Flow Rate 2 11/03/22 07:30 BMI result Body Mass Index 24.4 Const: Other: Awake confused no acute distress Resp: Other: Diffuse coarse rhonchi throughout with scattered wheezes Cardio: Other: No S4; positive S1-S2; no S3 murmurs rubs or gallops GI: Other: Soft nontender nondistended normoactive bowel sounds Extrem: Other: No edema bilateral Objective Data Active Medications Acetaminophen (Acetaminophen 325 Mg Tablet) 650 mg PO Q6H PRN PRN Reason: Pain, Mild (Pain Scale 1-3) Albuterol Sulfate (Albuterol Sulfate 90 Mcg 8 Gm Inhaler) 2 puff INHALE RQ4H PRN PRN Reason: Shortness Of Breath Or Wheezing Aspirin (Aspirin Enteric Coated 81 Mg Tablet.Dr) 81 mg PO DAILY [facility] Last Admin: 11/04/22 08:51 Dose: 81 mg Documented By: JOSH Atorvastatin Calcium (Atorvastatin Calcium 40 Mg Tablet) 40 mg PO BEDTIME [facility] Last Admin: 11/03/22 19:42 Dose: 40 mg Documented By: HAROON Docusate Sodium (Docusate Sodium 100 Mg Capsule) 100 mg PO DAILY PRN PRN Reason: Constipation Docusate Sodium (Docusate Sodium 100 Mg Capsule) 100 mg PO BID [facility] Last Admin: 11/04/22 08:52 Dose: 100 mg Documented By: JOSH Fluticasone Propionate (Fluticasone Propionate Nasal 16 Gm [place]) 1 spray NOSTRIL-B BID [facility] Last Admin: 11/04/22 08:52 Dose: Not Given Documented By: JOSH Non-Admin Reason: Patient Refused Guaifenesin (Guaifenesin 200 Mg/10 Ml 10 Ml Liquid) 10 ml PO Q4H PRN PRN Reason: Cough Linezolid (Zyvox/D5w) 600 mg in 300 mls @ 300 mls/hr IV Q12H [facility] Last Infusion: 11/04/22 07:35 Dose: 0 mls/hr Documented By: JOSH Sodium Chloride (Ns) 1,000 mls @ 75 mls/hr IVCONT .[id number] [facility] Last Admin: 11/04/22 08:46 Dose: 75 mls/hr Documented By: JOSH Cefepime HCl 2 gm/ Sodium (Chloride) 50 mls @ 100 mls/hr IV Q12H [facility] Last Infusion: 11/04/22 12:46 Dose: 0 mls/hr Documented By: JOSH Isosorbide Mononitrate (Isosorbide Mononitrate 30 Mg Tab.Er.24h) 30 mg PO DAILY [facility]; Protocol Last Admin: 11/04/22 08:52 Dose: 30 mg Documented By: JOSH Levalbuterol HCl (Levalbuterol Hcl 1.25 Mg/3 Ml Vial.[place]) 1.25 mg INHALE TID [facility] Last Admin: 11/04/22 14:18 Dose: 1.25 mg Documented By: ARISTEO Montelukast Sodium (Montelukast Sodium 10 Mg Tablet) 10 mg PO BEDTIME [facility] Last Admin: 11/03/22 19:43 Dose: 10 mg Documented By: HAROON Multivitamins/Vitamin C (Multivitamin Tablet) 1 tab PO DAILY [facility] Last Admin: 11/04/22 08:51 Dose: 1 tab Documented By: JOSH Pt Own (Umeclidinium -Vilanterol [Anoro Ellipta] 62.5-25 Mcg /Actuation Bl 1 each INHALE RDAILY [facility] Last Admin: 11/04/22 08:49 Dose: 1 each Documented By: ARISTEO Omeprazole (Omeprazole 20 Mg Capsule.Dr) 20 mg PO BID@0600,1630 [facility] Last Admin: 11/04/22 06:24 Dose: 20 mg Documented By: HAROON Ondansetron HCl (Ondansetron Hcl 4 Mg/2 Ml Vial) 4 mg IVPUSH Q8H PRN PRN Reason: Nausea and Vomiting Oxybutynin Chloride (Oxybutynin Chloride Er 5 Mg Tab.Er.24) 5 mg PO DAILY [facility] Last Admin: 11/04/22 08:51 Dose: 5 mg Documented By: JOSH Pharmacy Consult (Consult Rx Perform Med Rec) 1 each MISCELLANE ONCE PRN PRN Reason: Consult order Prednisone (Prednisone 5 Mg Tablet) 5 mg PO DAILY [facility] Last Admin: 11/04/22 08:51 Dose: 5 mg Documented By: JOSH Sodium Chloride (0.9 % Sodium Chloride Flush 3 Ml Syringe) 3 ml IVFLUSH QSHIFT [facility] Last Admin: 11/04/22 07:27 Dose: Not Given Documented By: JOSH Non-Admin Reason: IV Running Thiamine HCl (Thiamine Hcl 100 Mg Tablet) 100 mg PO BID [facility] Last Admin: 11/04/22 08:51 Dose: 100 mg Documented By: JOSH Tobramycin Sulfate (Tobramycin Sulfate 80 Mg/2 Ml Vial) 300 mg INHALE Q12H [facility] Torsemide (Torsemide 20 Mg Tablet) 40 mg PO DAILY [facility]; Protocol Last Admin: 11/04/22 08:51 Dose: 40 mg Documented By: JOSH Tramadol HCl (Tramadol Hcl 50 Mg Tablet) 25 mg PO BID [facility] Last Admin: 11/04/22 08:50 Dose: 25 mg Documented By: JOSH Labs 11/03/22 07:33 11/03/22 07:33 Microbiology Microbiology Results: Microbiology 11/02/22 Unknown Urine Culture - Preliminary Urine clean catch - Urine mcdonald top Gram negative jacquelyn 11/02/22 13:39 Blood Culture - Preliminary Blood - Venous No growth after 24 hours. 11/02/22 13:24 Blood Culture - Preliminary Blood - Venous No growth after 24 hours. Assessment and Plan (1) Sepsis: Status: Acute (2) Pneumonia: Status: Acute (3) UTI (urinary tract infection): Status: Acute Plan 81-year-old female with COPD, history of pseudomonal pneumonia on inhaled tobramycin, coronary artery disease, paroxysmal atrial fibrillation on asa not currently on anticoagulation, congestive heart failure, VRE UTI, recent SBO s/p incarcerated umbilical hernia repair admitted for hospital acquired pneumonia, UTI, metabolic encephalopathy with severe sepsis. 1.Severe sepsis- secondary to pneumonia and UTI -resolved 2.Acute hospital acquired pneumonia with concern for aspiration given persistent metabolic encephalopathy since prior admission at [facility] -IV cefepime/linezolid (3) -cultures pending 3.Acute UTI -linezolid/cefepime as above -Follow cultures... Preliminary Gram-negative rods 4.Acute kidney injury -secondary to above -improved with fluids -follow renals/divalents 5.Acute metabolic encephalopathy -resolved 6.Paroxysmal afib -rate control adequate -hold anticoagulants SCPs Full code Requires ongoing hospitalization for IV antibiotics to treat presumed pneumonia causing encephalopathy Time Spent With Patient Time: Total time managing care of this patient today ____ minutes. Quality Stroke Does the patient have a stroke diagnosis?: No VTE Prior VTE?: No VTE Risk Level:: Medical - moderate - high VTE Device Contraindication: N/A - Device Ordered VTE Drug Contraindication: Treatment Not Indicated
[2022-11-04] MEDS: Atorvastatin Calcium 40 MG TABLET PO (21:43)
[2022-11-04] MEDS: Montelukast Sodium 10 MG TABLET PO (21:43)
[2022-11-04] MEDS: Fluticasone Propionate Nasal 16 GM SPRAY 1 SPRAY NOSTRIL-B (21:54)
[2022-11-04] MEDS: 0.9 % Sodium Chloride Flush 3 ML SYRINGE IVFLUSH (23:45)
[2022-11-05 03:31] VITALS: BP 139/94; PULSE 125; RESP 17; TEMP 36.1; O2SAT 93
[2022-11-05 03:52] VITALS: PULSE 80; RESP 20; O2SAT 93
[2022-11-05] MEDS: levalbuterol HCL 1.25 MG/3 ML VIAL.NEB INHALE ×2 (03:52→16:17)
[2022-11-05] MEDS: Linezolid/D5W 600 MG/300 ML PIGGYBACK 300 MG IV (06:13)
[2022-11-05 07:32] VITALS: BP 131/88; PULSE 125; RESP 24; TEMP 36; O2SAT 95
[2022-11-05] MEDS: oxyBUTYnin chloride ER 5 MG TAB.ER.24 PO (09:41)
[2022-11-05] MEDS: Isosorbide Mononitrate 30 MG TAB.ER.24H PO (09:41)
[2022-11-05] MEDS: Torsemide 20 MG TABLET 40 MG PO (09:41)
[2022-11-05] MEDS: traMADoL HCL 50 MG TABLET 25 MG PO ×2 (09:42→22:01)
[2022-11-05] MEDS: predniSONE 5 MG TABLET PO (09:42)
[2022-11-05] MEDS: Aspirin Enteric Coated 81 MG TABLET.DR PO (09:42)
[2022-11-05 11:02] LABS: Alanine Aminotransferase 31 U/L (0-31); Albumin Level 2.8 g/dL (3.5-5.0); Alkaline Phosphatase 200 U/L (39-117); Anion Gap 15 (12-20); Aspartate Amino Transferase 37 U/L (5-31); Bilirubin Total 1.3 mg/dL (0.0-1.0); Blood Urea Nitrogen 15 mg/dL (9-16); Calcium 8.3 mg/dL (8.4-10.2); Carbon Dioxide 23 mmol/L (22-29); Chloride 101 mmol/L (96-108); Creatinine Clr Calc Pharmacy 33.2; Estimated Glomerular Filt Rate 52; Glucose Fasting 147 mg/dL (60-99); Potassium 3.3 mmol/L (3.3-5.1); Sodium 136 mmol/L (135-145); Total Protein 5.6 g/dL (6.5-8.0)
--- NOTE | 2022-11-05 12:29 | P.CNID_ITS ---
History of Present Illness Data of Consult Service Date: 11/04/22 Requesting physician: Gus Bradshaw Primary Care Provider: Monica Arciniega MD HPI Reason for consult: possible infection urine or lung She presents to ER with confusion and encephalopathy per daughter/family. She had left [facility] day before and had been seen by Manisha Casillas. She had arrived at [facility] with delirium and deconditioning and declined her discharge and didnt want to go home because she couldnt walk well and she and family declined Rehab placement but did leave and represented here with similar delirium complaints and thought may have been due to Remeron. She has small RLL atelectasis and [phone] colonies enterococcus and proteus in urine and has had pyuria now and in past. Review of Systems Review of Systems: Yes Unobtainable due to mental condition [facility] Past Medical History Medical History (Updated 11/05/22 @ 12:36 by Jackie Gerardo MD) A-fib Acute encephalopathy Acute hypokalemia Acute respiratory failure with hypoxia Anemia Anemia Aspiration pneumonia Atelectasis of right lung Atrial fibrillation with RVR Bronchiectasis CAD (coronary artery disease) Chronic dyspnea COPD (chronic obstructive pulmonary disease) COPD (chronic obstructive pulmonary disease) Dyspnea Encephalopathy chronic GI bleed Heart failure History of infection with vancomycin resistant Enterococcus (VRE) Paroxysmal A-fib Pseudomonal pneumonia Pseudomonas respiratory infection Pulmonary nodules Pyuria Family History Family History Other No family history of cancer Family history: reviewed and not pertinent Surgical History Surgical History H/O umbilical hernia repair (09/18/22) History of cholecystectomy History of hip replacement History of knee replacement History of quadruple bypass Social History Social History Household Members: Family Housing: House Are you a primary wound care specialist to a significant other at home: No Do you presently have visiting nurse or other home services: Yes Alcohol intake: never Patient Tobacco Use Status: Never used Tobacco Tobacco use type: Cigarette Smoked in Last 30 Days: No Use of substances other than those prescribed or required for medical reasons: No Currently Displaying Signs/Symptoms of Drug Intoxication Withdrawal: No Advance Directives: Yes Advance Directives on File: Yes Advance Directives Date on File: 08/24/22 Do you have thoughts of harming others: None Do you have a plan to hurt others: No Plan Nutrition Risks: No Nutritional Risk Patient : No service: No Current occupational status: retired Meds Allergies Allergy/AdvReac Type Severity Reaction Status Date / Time carvedilol Allergy Shortness Verified 10/04/22 14:13 of Breath sertraline [From Zoloft] Allergy Shortness Verified 10/04/22 14:13 of Breath spironolactone Allergy Shortness Verified 10/04/22 14:13 of Breath Active Medications: Current Medications Acetaminophen (Acetaminophen 325 Mg Tablet) 650 mg PO Q6H PRN PRN Reason: Pain, Mild (Pain Scale 1-3) Albuterol Sulfate (Albuterol Sulfate 90 Mcg 8 Gm Inhaler) 2 puff INHALE RQ4H PRN PRN Reason: Shortness Of Breath Or Wheezing Aspirin (Aspirin Enteric Coated 81 Mg Tablet.Dr) 81 mg PO DAILY [facility] Last Admin: 11/05/22 09:42 Dose: 81 mg Atorvastatin Calcium (Atorvastatin Calcium 40 Mg Tablet) 40 mg PO BEDTIME [facility] Last Admin: 11/04/22 21:43 Dose: 40 mg Docusate Sodium (Docusate Sodium 100 Mg Capsule) 100 mg PO DAILY PRN PRN Reason: Constipation Docusate Sodium (Docusate Sodium 100 Mg Capsule) 100 mg PO BID [facility] Last Admin: 11/05/22 09:48 Dose: Not Given Fluticasone Propionate (Fluticasone Propionate Nasal 16 Gm [place]) 1 spray NOSTRIL-B BID [facility] Last Admin: 11/05/22 09:43 Dose: Not Given Guaifenesin (Guaifenesin 200 Mg/10 Ml 10 Ml Liquid) 10 ml PO Q4H PRN PRN Reason: Cough Linezolid (Zyvox/D5w) 600 mg in 300 mls @ 300 mls/hr IV Q12H [facility] Last Infusion: 11/05/22 09:06 Dose: 0 mls/hr Cefepime HCl 2 gm/ Sodium (Chloride) 50 mls @ 100 mls/hr IV Q12H [facility] Last Infusion: 11/05/22 00:36 Dose: Infused Isosorbide Mononitrate (Isosorbide Mononitrate 30 Mg Tab.Er.24h) 30 mg PO DAILY [facility]; Protocol Last Admin: 11/05/22 09:41 Dose: 30 mg Levalbuterol HCl (Levalbuterol Hcl 1.25 Mg/3 Ml Vial.Neb) 1.25 mg INHALE TID [facility] Last Admin: 11/05/22 11:49 Dose: Not Given Montelukast Sodium (Montelukast Sodium 10 Mg Tablet) 10 mg PO BEDTIME [facility] Last Admin: 11/04/22 21:43 Dose: 10 mg Multivitamins/Vitamin C (Multivitamin Tablet) 1 tab PO DAILY [facility] Last Admin: 11/05/22 09:47 Dose: Not Given Pt Own (Umeclidinium -Vilanterol [Anoro Ellipta] 62.5-25 Mcg /Actuation Bl 1 each INHALE RDAILY [facility] Last Admin: 11/05/22 11:48 Dose: Not Given Omeprazole (Omeprazole 20 Mg Capsule.Dr) 20 mg PO BID@0600,1630 [facility] Last Admin: 11/05/22 06:23 Dose: Not Given Ondansetron HCl (Ondansetron Hcl 4 Mg/2 Ml Vial) 4 mg IVPUSH Q8H PRN PRN Reason: Nausea and Vomiting Oxybutynin Chloride (Oxybutynin Chloride Er 5 Mg Tab.Er.24) 5 mg PO DAILY [facility] Last Admin: 11/05/22 09:41 Dose: 5 mg Pharmacy Consult (Consult Rx Perform Med Rec) 1 each MISCELLANE ONCE PRN PRN Reason: Consult order Prednisone (Prednisone 5 Mg Tablet) 5 mg PO DAILY [facility] Last Admin: 11/05/22 09:42 Dose: 5 mg Sodium Chloride (0.9 % Sodium Chloride Flush 3 Ml Syringe) [facility] Last Admin: 11/05/22 07:01 Dose: Not Given Thiamine HCl (Thiamine Hcl 100 Mg Tablet) 100 mg PO BID [facility] Last Admin: 11/05/22 09:48 Dose: Not Given Tobramycin Sulfate (Tobramycin Sulfate 80 Mg/2 Ml Vial) 300 mg INHALE Q12H [facility] Torsemide (Torsemide 20 Mg Tablet) 40 mg PO DAILY [facility]; Protocol Last Admin: 11/05/22 09:41 Dose: 40 mg Tramadol HCl (Tramadol Hcl 50 Mg Tablet) 25 mg PO BID [facility] Last Admin: 11/05/22 09:42 Dose: 25 mg Home Medications Medication Instructions Recorded Confirmed Last Taken Type docusate sodium 100 mg capsule 100 mg PO BID 03/22/22 11/02/22 10/08/22 History fluticasone propionate 50 1 spray intranasal BID 03/22/22 11/02/22 10/08/22 History mcg/actuation nasal spray,suspension montelukast 10 mg tablet 10 mg PO BEDTIME 03/22/22 11/02/22 10/08/22 History nebulizers 03/22/22 07/04/22 Unknown History nitroglycerin 0.3 mg sublingual 0.3 mg sublingual Q5M PRN Chest 03/22/22 11/02/22 10/08/22 History tablet Pain oxybutynin chloride 5 mg 5 mg PO DAILY 03/22/22 11/02/22 10/08/22 History tablet,extended release 24 hr tramadol 50 mg tablet 25 mg PO BID 03/22/22 11/02/22 10/08/22 History umeclidinium 62.5 mcg-vilanterol 1 ea inhalation DAILY 05/24/22 11/02/22 10/08/22 History 25 mcg/actuation powdr for inhalation (Anoro Ellipta) albuterol sulfate 90 mcg/actuation 2 puff inhalation Q4-6H PRN 11/02/22 11/02/22 Unknown History aerosol inhaler (Ventolin HFA) Shortness Of Breath Or Wheezing aspirin 81 mg tablet,delayed 81 mg PO DAILY 11/02/22 11/02/22 Unknown History release isosorbide mononitrate 30 mg 30 mg PO DAILY 11/02/22 11/02/22 Unknown History tablet,extended release 24 hr levalbuterol HCl 1.25 mg/3 mL 1.25 mg inhalation TID 11/02/22 11/02/22 11/02/22 History solution for nebulization multivitamin 1 tab PO DAILY 11/02/22 11/02/22 Unknown History pantoprazole 40 mg tablet,delayed 40 mg PO BID 11/02/22 11/02/22 Unknown History release thiamine HCl (vitamin B1) 100 mg 100 mg PO BID 11/02/22 11/02/22 Unknown History tablet torsemide 20 mg tablet 40 mg PO DAILY 11/02/22 11/02/22 Unknown History Physical Exam Vital Signs: Vital Signs: Last Vital Signs Temp 96.8 F 11/05/22 07:32 Pulse 125 H 11/05/22 07:32 Resp 24 H 11/05/22 07:32 BP 131/88 11/05/22 07:32 Pulse Ox 95 11/05/22 07:32 O2 Del Method Nasal Cannula 11/05/22 07:32 O2 Flow Rate 2 11/05/22 07:32 BMI result Body Mass Index 24.4 Const: General: cooperative HEENT: Head: Yes normal to inspection Face and sinus: Yes normal facial exam Mouth: Normal oral and palatal mucosa present Teeth and gingiva: dentition normal Eyes: General: appearance normal, both eyes and all related structures Pupils: Equal, round and reactive pupils present Resp: Effort & Inspection: normal respiratory effort Cardio: Rate: regular rate Rhythm: regular rhythm GI: Palpation (GI): Soft to palpation and nontender : General: Yes no CVA tenderness Back/Spine/Pelvis: Back: no CVA tenderness Skin: General skin exam: no rashes or lesions noted Neuro: General: moves all extremities Cranial nerves: Yes Equal, round and reactive pupils present Extrem: General: Yes normal to inspection Psych: Other: some confusion Appearance: grossly normal Results Labs 11/03/22 07:33 11/05/22 10:33 Labs: BMP 11/05/22 10:33 Sodium 136 Potassium 3.3 Chloride 101 Carbon Dioxide 23 BUN 15 Creatinine 1.01 Calcium 8.3 L Liver Function 11/05/22 Range/Units 10:33 Total Bilirubin 1.3 H (0.0-1.0) mg/dL AST 37 H (5-31) U/L ALT 31 (0-31) U/L Alkaline Phosphatase 200 H (39-117) U/L Albumin 2.8 L (3.5-5.0) g/dL Microbiology Microbiology Results: Microbiology 11/02/22 Unknown Urine clean catch - Urine mcdonald top Urine Culture - Preliminary Proteus mirabilis Enterococcus/Streptococcus sp 11/02/22 13:39 Blood - Venous Blood Culture - Preliminary No growth after 48 hours. 11/02/22 13:24 Blood - Venous Blood Culture - Preliminary No growth after 48 hours. Assessment and Plan (1) Encephalopathy chronic: Status: Acute She has no fever or leukocytosis or hypoxia or sputum production but does have small RLL area of infiltrate so can give Doxycycline 100 mg bid. She has no fever and has chronic pyuria and only 10,000 to 10453 CFU proteus and enterococcous so not convincing evidence of these organisms as urinary infection causes at this time (2) Pyuria: Status: Acute (3) Pneumonia: Qualifiers: Laterality: right Lung location: lower lobe of lung Pneumonia type: due to unspecified organism Qualified Code(s): J18.9 - Pneumonia, unspecified organism Status: Acute Plan Doxycycline 100 mg IV every 12 hours Convert to po within day or two for total 10 days Time Spent With Patient Time: Total time managing care of this patient today ____ minutes.
--- NOTE | 2022-11-05 12:30 | P.PNIM_ITS ---
Subjective Subjective Date of Service: 11/05/22 Interval History: Episode of desats overnight responding to supplemental O2. More confused and verbally aggressive this a.m. with daughter Review of Systems Unable to obtain Physical Exam Vital Signs: Vital Signs: Last Vital Signs Temp 96.8 F 11/05/22 07:32 Pulse 125 H 11/05/22 07:32 Resp 24 H 11/05/22 07:32 BP 131/88 11/05/22 07:32 Pulse Ox 95 11/05/22 07:32 O2 Del Method Nasal Cannula 11/05/22 07:32 O2 Flow Rate 2 11/05/22 07:32 BMI result Body Mass Index 24.4 Const: Other: Awake confused no acute distress Resp: Other: Diffuse coarse rhonchi throughout with scattered wheezes Cardio: Other: No S4; positive S1-S2; no S3 murmurs rubs or gallops GI: Other: Soft nontender nondistended normoactive bowel sounds Extrem: Other: No edema bilateral Objective Data Active Medications Acetaminophen (Acetaminophen 325 Mg Tablet) 650 mg PO Q6H PRN PRN Reason: Pain, Mild (Pain Scale 1-3) Albuterol Sulfate (Albuterol Sulfate 90 Mcg 8 Gm Inhaler) 2 puff INHALE RQ4H PRN PRN Reason: Shortness Of Breath Or Wheezing Aspirin (Aspirin Enteric Coated 81 Mg Tablet.) 81 mg PO DAILY [facility] Last Admin: 11/05/22 09:42 Dose: 81 mg Documented By: JOSH Atorvastatin Calcium (Atorvastatin Calcium 40 Mg Tablet) 40 mg PO BEDTIME [facility] Last Admin: 11/04/22 21:43 Dose: 40 mg Documented By: PAMELA Docusate Sodium (Docusate Sodium 100 Mg Capsule) 100 mg PO DAILY PRN PRN Reason: Constipation Docusate Sodium (Docusate Sodium 100 Mg Capsule) 100 mg PO BID [facility] Last Admin: 11/05/22 09:48 Dose: Not Given Documented By: JOSH Non-Admin Reason: Patient Refused Fluticasone Propionate (Fluticasone Propionate Nasal 16 Gm [place]) 1 spray NOSTRIL-B BID [facility] Last Admin: 11/05/22 09:43 Dose: Not Given Documented By: JOSH Non-Admin Reason: Patient Refused Guaifenesin (Guaifenesin 200 Mg/10 Ml 10 Ml Liquid) 10 ml PO Q4H PRN PRN Reason: Cough Isosorbide Mononitrate (Isosorbide Mononitrate 30 Mg Tab.Er.24h) 30 mg PO DAILY [facility]; Protocol Last Admin: 11/05/22 09:41 Dose: 30 mg Documented By: JOSH Levalbuterol HCl (Levalbuterol Hcl 1.25 Mg/3 Ml Vial.[place]) 1.25 mg INHALE TID [facility] Last Admin: 11/05/22 11:49 Dose: Not Given Documented By: KVNG Non-Admin Reason: Patient Asleep Montelukast Sodium (Montelukast Sodium 10 Mg Tablet) 10 mg PO BEDTIME [facility] Last Admin: 11/04/22 21:43 Dose: 10 mg Documented By: PAMELA Multivitamins/Vitamin C (Multivitamin Tablet) 1 tab PO DAILY [facility] Last Admin: 11/05/22 09:47 Dose: Not Given Documented By: JOSH Non-Admin Reason: Patient Refused Pt Own (Umeclidinium -Vilanterol [Anoro Ellipta] 62.5-25 Mcg /Actuation Bl 1 each INHALE RDAILY [facility] Last Admin: 11/05/22 11:48 Dose: Not Given Documented By: KVNG Non-Admin Reason: Patient Asleep Omeprazole (Omeprazole 20 Mg Capsule.) 20 mg PO BID@0600,1630 [facility] Last Admin: 11/05/22 06:23 Dose: Not Given Documented By: PAMELA Non-Admin Reason: Patient Refused Ondansetron HCl (Ondansetron Hcl 4 Mg/2 Ml Vial) 4 mg IVPUSH Q8H PRN PRN Reason: Nausea and Vomiting Oxybutynin Chloride (Oxybutynin Chloride Er 5 Mg Tab.Er.24) 5 mg PO DAILY [facility] Last Admin: 11/05/22 09:41 Dose: 5 mg Documented By: JOSH Pharmacy Consult (Consult Rx Perform Med Rec) 1 each MISCELLANE ONCE PRN PRN Reason: Consult order Prednisone (Prednisone 5 Mg Tablet) 5 mg PO DAILY [facility] Last Admin: 11/05/22 09:42 Dose: 5 mg Documented By: JOSH Sodium Chloride (0.9 % Sodium Chloride Flush 3 Ml Syringe) 3 ml IVFLUSH QSHIFT [facility] Last Admin: 11/05/22 07:01 Dose: Not Given Documented By: JOSH Non-Admin Reason: IV Running Thiamine HCl (Thiamine Hcl 100 Mg Tablet) 100 mg PO BID [facility] Last Admin: 11/05/22 09:48 Dose: Not Given Documented By: JOSH Non-Admin Reason: Patient Refused Tobramycin Sulfate (Tobramycin Sulfate 80 Mg/2 Ml Vial) 300 mg INHALE Q12H [facility] Torsemide (Torsemide 20 Mg Tablet) 40 mg PO DAILY [facility]; Protocol Last Admin: 11/05/22 09:41 Dose: 40 mg Documented By: JOSH Tramadol HCl (Tramadol Hcl 50 Mg Tablet) 25 mg PO BID [facility] Last Admin: 11/05/22 09:42 Dose: 25 mg Documented By: JOSH Labs 11/03/22 07:33 11/05/22 10:33 Labs: Laboratory Results - last 24 hr 11/05/22 10:33 Anion Gap 15 Estim Creat Clear Calc 33.2 Estimated GFR 52 Fasting Glucose 147 H Calcium 8.3 L Total Bilirubin 1.3 H AST 37 H ALT 31 Alkaline Phosphatase 200 H Total Protein 5.6 L Albumin 2.8 L Microbiology Microbiology Results: Microbiology 11/02/22 Unknown Urine Culture - Preliminary Urine clean catch - Urine mdconald top Proteus mirabilis Enterococcus/Streptococcus sp 11/02/22 13:39 Blood Culture - Preliminary Blood - Venous No growth after 48 hours. 11/02/22 13:24 Blood Culture - Preliminary Blood - Venous No growth after 48 hours. Assessment and Plan (1) Sepsis: Status: Acute (2) Pneumonia: Status: Acute (3) UTI (urinary tract infection): Status: Acute (4) CANDIDO (acute kidney injury): Status: Acute Plan 81-year-old female with COPD, history of pseudomonal pneumonia on inhaled tobramycin, coronary artery disease, paroxysmal atrial fibrillation on asa not currently on anticoagulation, congestive heart failure, VRE UTI, recent SBO s/p incarcerated umbilical hernia repair admitted for hospital acquired pneumonia, UTI, metabolic encephalopathy with severe sepsis. 1.Severe sepsis- secondary to pneumonia and UTI -resolved 2.Acute hospital acquired pneumonia with concern for aspiration given persistent metabolic encephalopathy since prior admission at [facility] -IV cefepime/linezolid (4) -cultures pending 3.Acute UTI -linezolid/cefepime as above -Follow cultures... Preliminary Gram-negative rods 4.Acute kidney injury -secondary to above -improved with fluids -follow renals/divalents 5.Acute metabolic encephalopathy -resolved 6.Paroxysmal afib -rate control adequate -hold anticoagulants SCPs Full code Requires ongoing hospitalization for IV antibiotics to treat presumed pneumonia causing encephalopathy Time Spent With Patient Time: Total time managing care of this patient today ____ minutes. Quality Stroke Does the patient have a stroke diagnosis?: No VTE Prior VTE?: No VTE Risk Level:: Medical - moderate - high VTE Device Contraindication: N/A - Device Ordered VTE Drug Contraindication: Treatment Not Indicated
[2022-11-05] MEDS: Doxycycline Hyclate 100 MG in 0.9 % Sodium Chloride 250 ML 166.67 MG IV (12:54)
[2022-11-05 15:50] VITALS: BP 134/71; PULSE 101; RESP 20; TEMP 36.2; O2SAT 99
[2022-11-05 16:22] VITALS: PULSE 101; RESP 20; O2SAT 99
[2022-11-05] MEDS: Nystatin Oral Susp 500,000 UNIT/5 ML ORAL.SUSP 100000 UNIT BUCCAL ×2 (16:33→22:01)
[2022-11-05 19:17] VITALS: BP 141/65; PULSE 100; RESP 17; TEMP 36.3; O2SAT 95
[2022-11-05] MEDS: Atorvastatin Calcium 40 MG TABLET PO (22:01)
[2022-11-05] MEDS: Montelukast Sodium 10 MG TABLET PO (22:01)
[2022-11-05] MEDS: Docusate Sodium 100 MG CAPSULE PO (22:01)
[2022-11-05] MEDS: Thiamine HCL 100 MG TABLET PO (22:01)
[2022-11-06] MEDS: Doxycycline Hyclate 100 MG in 0.9 % Sodium Chloride 250 ML 166.67 MG IV ×2 (00:29→12:50)
[2022-11-06] MEDS: 0.9 % Sodium Chloride Flush 3 ML SYRINGE IVFLUSH ×2 (00:29→09:35)
[2022-11-06 00:50] VITALS: RESP 16
[2022-11-06 04:05] VITALS: BP 135/62; PULSE 70; RESP 17; TEMP 36.6; O2SAT 95
[2022-11-06] MEDS: oxyBUTYnin chloride ER 5 MG TAB.ER.24 PO (09:34)
[2022-11-06] MEDS: Aspirin Enteric Coated 81 MG TABLET.DR PO (09:34)
[2022-11-06] MEDS: traMADoL HCL 50 MG TABLET 25 MG PO ×2 (09:34→21:49)
[2022-11-06] MEDS: Isosorbide Mononitrate 30 MG TAB.ER.24H PO (09:34)
[2022-11-06] MEDS: Torsemide 20 MG TABLET 40 MG PO (09:34)
[2022-11-06] MEDS: Docusate Sodium 100 MG CAPSULE PO (09:34)
[2022-11-06] MEDS: Thiamine HCL 100 MG TABLET PO ×2 (09:34→21:50)
[2022-11-06] MEDS: Nystatin Oral Susp 500,000 UNIT/5 ML ORAL.SUSP 100000 UNIT BUCCAL ×3 (09:35→21:50)
[2022-11-06] MEDS: predniSONE 5 MG TABLET PO (09:35)
[2022-11-06] MEDS: Multivitamin TABLET 1 TAB PO (09:35)
--- NOTE | 2022-11-06 11:34 | P.PNIM_ITS ---
Subjective Subjective Date of Service: 11/06/22 Interval History: No acute issues overnight. Interactive this morning complaining of diffuse body pain Review of Systems Unable to obtain Physical Exam Vital Signs: Vital Signs: Last Vital Signs Temp 97.8 F 11/06/22 04:05 Pulse 70 11/06/22 04:05 Resp 17 11/06/22 04:05 BP 135/62 11/06/22 04:05 Pulse Ox 95 11/06/22 04:05 O2 Del Method Nasal Cannula 11/06/22 04:05 O2 Flow Rate 1.5 11/06/22 04:05 BMI result Body Mass Index 24.4 Const: Other: Awake confused no acute distress Resp: Other: Diffuse coarse rhonchi throughout with scattered wheezes Cardio: Other: No S4; positive S1-S2; no S3 murmurs rubs or gallops GI: Other: Soft nontender nondistended normoactive bowel sounds Extrem: Other: No edema bilateral Objective Data Active Medications Acetaminophen (Acetaminophen 325 Mg Tablet) 650 mg PO Q6H PRN PRN Reason: Pain, Mild (Pain Scale 1-3) Albuterol Sulfate (Albuterol Sulfate 90 Mcg 8 Gm Inhaler) 2 puff INHALE RQ4H PRN PRN Reason: Shortness Of Breath Or Wheezing Aspirin (Aspirin Enteric Coated 81 Mg Tablet.Dr) 81 mg PO DAILY [facility] Last Admin: 11/06/22 09:34 Dose: 81 mg Documented By: JOSH Atorvastatin Calcium (Atorvastatin Calcium 40 Mg Tablet) 40 mg PO BEDTIME [facility] Last Admin: 11/05/22 22:01 Dose: 40 mg Documented By: PETERASY Docusate Sodium (Docusate Sodium 100 Mg Capsule) 100 mg PO DAILY PRN PRN Reason: Constipation Docusate Sodium (Docusate Sodium 100 Mg Capsule) 100 mg PO BID [facility] Last Admin: 11/06/22 09:34 Dose: 100 mg Documented By: JOSH Fluticasone Propionate (Fluticasone Propionate Nasal 16 Gm [place]) 1 spray NOSTRIL-B BID [facility] Last Admin: 11/06/22 09:35 Dose: Not Given Documented By: JOSH Non-Admin Reason: Patient Refused Guaifenesin (Guaifenesin 200 Mg/10 Ml 10 Ml Liquid) 10 ml PO Q4H PRN PRN Reason: Cough Doxycycline Hyclate 100 mg/ (Sodium Chloride) 250 mls @ 166.67 mls/hr IV Q12H [facility] Last Infusion: 11/06/22 03:08 Dose: 0 mls/hr Documented By: ZOLTAN Isosorbide Mononitrate (Isosorbide Mononitrate 30 Mg Tab.Er.24h) 30 mg PO DAILY [facility]; Protocol Last Admin: 11/06/22 09:34 Dose: 30 mg Documented By: JOSH Levalbuterol HCl (Levalbuterol Hcl 1.25 Mg/3 Ml Vial.Neb) 1.25 mg INHALE TID [facility] Last Admin: 11/06/22 09:37 Dose: Not Given Documented By: KAY Non-Admin Reason: Patient Asleep Montelukast Sodium (Montelukast Sodium 10 Mg Tablet) 10 mg PO BEDTIME [facility] Last Admin: 11/05/22 22:01 Dose: 10 mg Documented By: KINA Multivitamins/Vitamin C (Multivitamin Tablet) 1 tab PO DAILY [facility] Last Admin: 11/06/22 09:35 Dose: 1 tab Documented By: JOSH Pt Own (Umeclidinium -Vilanterol [Anoro Ellipta] 62.5-25 Mcg /Actuation Bl 1 each INHALE RDAILY [facility] Last Admin: 11/06/22 09:36 Dose: Not Given Documented By: KAY Non-Admin Reason: Patient Asleep Nystatin (Nystatin Oral Susp 500,000 Unit/5 Ml Oral.Susp) 100,000 unit BU[place]AL TID [facility]; Protocol Last Admin: 11/06/22 09:35 Dose: 100,000 unit Documented By: JOSH Omeprazole (Omeprazole 20 Mg Capsule.Dr) 20 mg PO BID@0600,1630 [facility] Last Admin: 11/06/22 06:17 Dose: Not Given Documented By: ZOLTAN Non-Admin Reason: NPO Ondansetron HCl (Ondansetron Hcl 4 Mg/2 Ml Vial) 4 mg IVPUSH Q8H PRN PRN Reason: Nausea and Vomiting Oxybutynin Chloride (Oxybutynin Chloride Er 5 Mg Tab.Er.24) 5 mg PO DAILY [facility] Last Admin: 11/06/22 09:34 Dose: 5 mg Documented By: JOSH Pharmacy Consult (Consult Rx Perform Med Rec) 1 each MISCELLANE ONCE PRN PRN Reason: Consult order Prednisone (Prednisone 5 Mg Tablet) 5 mg PO DAILY [facility] Last Admin: 11/06/22 09:35 Dose: 5 mg Documented By: JOSH Sodium Chloride (0.9 % Sodium Chloride Flush 3 Ml Syringe) 3 ml IVFLUSH QSHIFT [facility] Last Admin: 11/06/22 09:35 Dose: 3 ml Documented By: JOSH Thiamine HCl (Thiamine Hcl 100 Mg Tablet) 100 mg PO BID [facility] Last Admin: 11/06/22 09:34 Dose: 100 mg Documented By: JOSH Tobramycin Sulfate (Tobramycin Sulfate 80 Mg/2 Ml Vial) 300 mg INHALE Q12H [facility] Torsemide (Torsemide 20 Mg Tablet) 40 mg PO DAILY [facility]; Protocol Last Admin: 11/06/22 09:34 Dose: 40 mg Documented By: JOSH Tramadol HCl (Tramadol Hcl 50 Mg Tablet) 25 mg PO BID [facility] Last Admin: 11/06/22 09:34 Dose: 25 mg Documented By: JOSH Labs 11/03/22 07:33 11/05/22 10:33 Microbiology Microbiology Results: Microbiology 11/02/22 Unknown Urine Culture - Preliminary Urine clean catch - Urine mcdonald top Proteus mirabilis Enterococcus/Streptococcus sp Assessment and Plan (1) Sepsis: Status: Acute Plan 81-year-old female with COPD, history of pseudomonal pneumonia on inhaled tobramycin, coronary artery disease, paroxysmal atrial fibrillation on asa not currently on anticoagulation, congestive heart failure, VRE UTI, recent SBO s/p incarcerated umbilical hernia repair admitted for hospital acquired pneumonia, UTI, metabolic encephalopathy with severe sepsis. 1.Severe sepsis- secondary to pneumonia and UTI -resolved 2.Acute hospital acquired pneumonia with concern for aspiration given persistent metabolic encephalopathy since prior admission at [facility] -IV cefepime/linezolid (5)... Will DC as per ID 3.Acute UTI -doxycycline 100 mg IV q.12 p.o. upon discharge -Proteus mirabilis/Enterococcus sensitivities pending 4.Acute kidney injury -secondary to above -improved with fluids -follow renals/divalents 5.Acute metabolic encephalopathy -resolved 6.Paroxysmal afib -rate control adequate -hold anticoagulants SCPs Full code Requires ongoing hospitalization for IV antibiotics to treat presumed pneumonia causing encephalopathy Time Spent With Patient Time: Total time managing care of this patient today ____ minutes. Quality Stroke Does the patient have a stroke diagnosis?: No VTE Prior VTE?: No VTE Risk Level:: Medical - moderate - high VTE Device Contraindication: N/A - Device Ordered VTE Drug Contraindication: Treatment Not Indicated
[2022-11-06] MEDS: Omeprazole 20 MG CAPSULE.DR PO (15:22)
[2022-11-06 15:37] VITALS: BP 127/59; PULSE 99; RESP 20; TEMP 36.6; O2SAT 91
[2022-11-06] MEDS: levalbuterol HCL 1.25 MG/3 ML VIAL.NEB INHALE (16:50)
[2022-11-06 16:55] VITALS: PULSE 88; RESP 20; O2SAT 97
[2022-11-06 19:54] VITALS: BP 124/65; PULSE 92; RESP 18; TEMP 36; O2SAT 93
[2022-11-06 23:41] VITALS: BP 166/92; PULSE 99; RESP 16; TEMP 37.2; O2SAT 95
[2022-11-07] MEDS: Doxycycline Hyclate 100 MG in 0.9 % Sodium Chloride 250 ML 166.67 MG IV (01:05)
[2022-11-07 07:41] VITALS: BP 138/91; PULSE 96; RESP 18; TEMP 36.5; O2SAT 92
[2022-11-07 08:23] LABS: MANUAL DIFF FLAG NO
[2022-11-07 08:29] LABS: Basophils Percent Auto 0.5 % (0-2); Eosinophils Absolute Auto 0.3 X10*3/uL (0.0-0.4); Eosinophils Percent Auto 4.1 % (0-4); Hematocrit 27.9 % (37.0-47.0); Hemoglobin 9.1 g/dl (12.0-16.0); Imm Gran Abs Auto 0.02 X10*3/uL (0.00-0.03); Imm Gran Pct Auto 0.3 % (0.0-0.4); Lymphocytes Absolute Auto 1.6 X10*3/uL (1.2-4.9); Lymphocytes Percent Auto 23.5 % (20-40); Mean Corpuscular HGB Conc 32.6 g/dl (31.0-35.0); Mean Corpuscular Hemoglobin 31.1 pg (27.0-33.0); Mean Corpuscular Volume 95.2 fL (80.0-98.0); Mean Platelet Volume 9.3 fL (9.4-12.3); Monocytes Absolute Auto 0.6 X10*3/uL (0.1-1.2); Monocytes Percent Auto 9.5 % (2-11); Neutrophils Absolute Auto 4.1 x10*3/uL (2.0-8.3); Neutrophils Percent Auto 62.1 % (45-73); Platelet Count 206 X10*3/uL (160-400); Red Blood Count 2.93 X10*6/uL (4.20-5.50); Red Cell Distribution Width 17.4 % (11.0-16.0); White Blood Count 6.6 X10*3/uL (4.8-10.8)
[2022-11-07] MEDS: Multivitamin TABLET 1 TAB PO (08:50)
[2022-11-07] MEDS: 0.9 % Sodium Chloride Flush 3 ML SYRINGE IVFLUSH ×3 (08:50→21:57)
[2022-11-07] MEDS: traMADoL HCL 50 MG TABLET 25 MG PO (08:50)
[2022-11-07] MEDS: predniSONE 5 MG TABLET PO (08:51)
[2022-11-07] MEDS: Thiamine HCL 100 MG TABLET PO (08:51)
[2022-11-07] MEDS: oxyBUTYnin chloride ER 5 MG TAB.ER.24 PO (08:51)
[2022-11-07] MEDS: Torsemide 20 MG TABLET 40 MG PO (08:51)
[2022-11-07] MEDS: Aspirin Enteric Coated 81 MG TABLET.DR PO (08:51)
[2022-11-07] MEDS: Isosorbide Mononitrate 30 MG TAB.ER.24H PO (08:51)
[2022-11-07] MEDS: Nystatin Oral Susp 500,000 UNIT/5 ML ORAL.SUSP 100000 UNIT BUCCAL ×2 (08:52→16:58)
[2022-11-07 09:20] LABS: Alanine Aminotransferase 22 U/L (0-31); Albumin Level 2.8 g/dL (3.5-5.0); Alkaline Phosphatase 180 U/L (39-117); Aspartate Amino Transferase 25 U/L (5-31); Bilirubin Total 1.6 mg/dL (0.0-1.0); Blood Urea Nitrogen 19 mg/dL (9-16); Calcium 8.1 mg/dL (8.4-10.2); Creatinine Clr Calc Pharmacy 29.8; Estimated Glomerular Filt Rate 46; Glucose Fasting 90 mg/dL (60-99); Total Protein 5.6 g/dL (6.5-8.0)
[2022-11-07 09:27] LABS: Anion Gap 17 (12-20); Carbon Dioxide 32 mmol/L (22-29); Chloride 95 mmol/L (96-108); Potassium 2.5 mmol/L (3.3-5.1); Sodium 141 mmol/L (135-145)
[2022-11-07] MEDS: Doxycycline Monohydrate 100 MG CAPSULE PO (11:06)
[2022-11-07] MEDS: Potassium Chloride Packet 20 MEQ PACKET 40 MEQ PO (11:06)
[2022-11-07] MEDS: Potassium Chloride/H20 10 MEQ/100 ML PIGGYBACK 100 MEQ IV (11:07)
--- NOTE | 2022-11-07 13:21 | P.PNIM_ITS ---
Subjective Subjective Date of Service: 11/08/22 Interval History: Complaining of bad sore throat, generalized pain, requesting for pain medication, very angry,, does not feel ready for discharge noted to have a potassium of 2.5 this a.m. denies fever, no chills, tolerating diet with no na usea no vomiting no abdominal pain or diarrhea. Review of Systems All other system reviewed and negative. Physical Exam Vital Signs: Vital Signs: Last Vital Signs Temp 97.7 F 11/07/22 07:41 Pulse 96 11/07/22 07:41 Resp 18 11/07/22 07:41 BP 138/91 H 11/07/22 07:41 Pulse Ox 92 11/07/22 07:41 O2 Del Method Room Air 11/07/22 07:41 O2 Flow Rate 1.5 11/06/22 04:05 BMI result Body Mass Index 24.4 Const: Other: Gen:? Awake alert x3 in no acute distress Oral cavity, uvula midline no tonsillar swelling no white spots mild pharyngeal hyperemia Neck: supple, no lymphadenopathy Lungs: No respiratory distress, ,clear to auscultation , no crackles Heart: Regular, no murmurs Abd: soft,? non-distended, bowel sounds? audible Ext: no edema Neuro: alert and oriented x3, no focal findings Psych: appropriate affect Skin ecchymosis Objective Data Active Medications Acetaminophen (Acetaminophen 325 Mg Tablet) 650 mg PO Q6H PRN PRN Reason: Pain, Mild (Pain Scale 1-3) Albuterol Sulfate (Albuterol Sulfate 90 Mcg 8 Gm Inhaler) 2 puff INHALE RQ4H PRN PRN Reason: Shortness Of Breath Or Wheezing Aspirin (Aspirin Enteric Coated 81 Mg Tablet.) 81 mg PO DAILY [facility] Last Admin: 11/07/22 08:51 Dose: 81 mg Documented By: COTEMA Atorvastatin Calcium (Atorvastatin Calcium 40 Mg Tablet) 40 mg PO BEDTIME [facility] Last Admin: 11/06/22 21:50 Dose: Not Given Documented By: MARQUITA Non-Admin Reason: Patient Refused Benzocaine (Throat Lozenge, Medicated Lozenge) 1 lozenge MUCOUS MEM Q2H PRN PRN Reason: Sore Throat Docusate Sodium (Docusate Sodium 100 Mg Capsule) 100 mg PO DAILY PRN PRN Reason: Constipation Docusate Sodium (Docusate Sodium 100 Mg Capsule) 100 mg PO BID [facility] Last Admin: 11/07/22 08:58 Dose: Not Given Documented By: SASCHA Non-Admin Reason: Patient Refused Doxycycline Monohydrate (Doxycycline Monohydrate 100 Mg Capsule) 100 mg PO Q12H [facility] Last Admin: 11/07/22 11:06 Dose: 100 mg Documented By: MISTY Fluticasone Propionate (Fluticasone Propionate Nasal 16 Gm [place]) 1 spray NOSTRIL-B BID [facility] Last Admin: 11/07/22 08:36 Dose: Not Given Documented By: SASCHA Non-Admin Reason: Patient Refused Guaifenesin (Guaifenesin 200 Mg/10 Ml 10 Ml Liquid) 10 ml PO Q4H PRN PRN Reason: Cough Isosorbide Mononitrate (Isosorbide Mononitrate 30 Mg Tab.Er.24h) 30 mg PO DAILY [facility]; Protocol Last Admin: 11/07/22 08:51 Dose: 30 mg Documented By: SASCHA Levalbuterol HCl (Levalbuterol Hcl 1.25 Mg/3 Ml Vial.Neb) 1.25 mg INHALE TID [facility] Last Admin: 11/07/22 07:51 Dose: Not Given Documented By: JOSE Non-Admin Reason: Patient Asleep Montelukast Sodium (Montelukast Sodium 10 Mg Tablet) 10 mg PO BEDTIME [facility] Last Admin: 11/06/22 21:50 Dose: Not Given Documented By: MARQUITA Non-Admin Reason: Patient Refused Multivitamins/Vitamin C (Multivitamin Tablet) 1 tab PO DAILY [facility] Last Admin: 11/07/22 08:50 Dose: 1 tab Documented By: SASCHA Pt Own (Umeclidinium -Vilanterol [Anoro Ellipta] 62.5-25 Mcg /Actuation Bl 1 each INHALE RDAILY [facility] Last Admin: 11/07/22 07:52 Dose: Not Given Documented By: JOSE Non-Admin Reason: Patient Asleep Nystatin (Nystatin Oral Susp 500,000 Unit/5 Ml Oral.Susp) 100,000 unit BUCCAL TID [facility]; Protocol Last Admin: 11/07/22 08:52 Dose: 100,000 unit Documented By: HO.COTEMA Omeprazole (Omeprazole 20 Mg Capsule.) 20 mg PO BID@0600,1630 [facility] Last Admin: 11/07/22 06:05 Dose: Not Given Documented By: MARQUITA Non-Admin Reason: Patient Refused Ondansetron HCl (Ondansetron Hcl 4 Mg/2 Ml Vial) 4 mg IVPUSH Q8H PRN PRN Reason: Nausea and Vomiting Oxybutynin Chloride (Oxybutynin Chloride Er 5 Mg Tab.Er.24) 5 mg PO DAILY [facility] Last Admin: 11/07/22 08:51 Dose: 5 mg Documented By: COTEMA Pharmacy Consult (Consult Rx Perform Med Rec) 1 each MISCELLANE ONCE PRN PRN Reason: Consult order Prednisone (Prednisone 5 Mg Tablet) 5 mg PO DAILY [facility] Last Admin: 11/07/22 08:51 Dose: 5 mg Documented By: COTEMA Sodium Chloride (0.9 % Sodium Chloride Flush 3 Ml Syringe) 3 ml IVFLUSH QSHIFT [facility] Last Admin: 11/07/22 08:50 Dose: 3 ml Documented By: COTEMA Thiamine HCl (Thiamine Hcl 100 Mg Tablet) 100 mg PO BID [facility] Last Admin: 11/07/22 08:51 Dose: 100 mg Documented By: COTEMA Tobramycin Sulfate (Tobramycin Sulfate 80 Mg/2 Ml Vial) 300 mg INHALE Q12H [facility] Torsemide (Torsemide 20 Mg Tablet) 40 mg PO DAILY [facility]; Protocol Last Admin: 11/07/22 08:51 Dose: 40 mg Documented By: COTEMA Tramadol HCl (Tramadol Hcl 50 Mg Tablet) 25 mg PO BID [facility] Last Admin: 11/07/22 08:50 Dose: 25 mg Documented By: COTEMA Labs 11/07/22 08:14 11/07/22 08:14 Labs: Laboratory Results - last 24 hr 11/07/22 11/07/22 08:14 08:14 MCV 95.2 MCH 31.1 MCHC 32.6 RDW 17.4 H Plt Count 206 MPV 9.3 L Immature Gran % (Auto) 0.3 Neut % (Auto) 62.1 Lymph % (Auto) 23.5 Dickens % (Auto) 9.5 Eos % (Auto) 4.1 H Baso % (Auto) 0.5 Lymph # (Auto) 1.6 [place] # (Auto) 0.6 Eos # (Auto) 0.3 Baso # (Auto) 0.0 Abs Immat Gran (auto) 0.02 Absolute Neuts (auto) 4.1 Absolute Nucleated RBC 0.000 Nucleated RBC % (auto) 0.0 Anion Gap 17 Estim Creat Clear Calc 29.8 Estimated GFR 46 Fasting Glucose 90 Calcium 8.1 L Total Bilirubin 1.6 H AST 25 ALT 22 Alkaline Phosphatase 180 H Total Protein 5.6 L Albumin 2.8 L Microbiology Microbiology Results: Microbiology 11/02/22 Unknown Urine Culture - Final Urine clean catch - Urine mcdonald top Proteus mirabilis Enterococcus faecalis Assessment and Plan (1) Sepsis: Status: Acute Plan 81-year-old female with COPD, history of pseudomonal pneumonia on inhaled tobramycin, coronary artery disease, paroxysmal atrial fibrillation on asa not currently on anticoagulation, congestive heart failure, VRE UTI, recent SBO s/p incarcerated umbilical hernia repair admitted for hospital acquired pneumonia, UTI, metabolic encephalopathy with severe sepsis. 1.Severe sepsis- secondary to pneumonia -resolved 2. Right lower lobe infiltrate Seen by ID no concern for hospital-acquired pneumonia question aspiration, she recommend doxycycline for total 10 days will transition to by mouth doxy 100 mg b.i.d. 3.Acute UTI Seen by ID since patient has no fever and has chronic pyuria in only [id number] CFU Proteus and Enterococcus so not convincing evidence of UTI, therefore no antibiotic recommended 4.Acute kidney injury -likely pre renal, resolved with IV fluids renal function remains normal, will h old torsemide and resume lower dose 5.Acute toxic metabolic encephalopathy -resolved 6.Paroxysmal afib -rate control adequate, on aspirin currently not on anticoagulation 7. Hypokalemia due to diuretics will replace and follow 8. Sore throat placed on Cepastat and is on doxycycline, no further antibiotic needed 9. Hypo magnesemia repleted will follow labs SCPs Full code Requires ongoing hospitalization for IV antibiotics to treat presumed pneumonia causing encephalopathy Time Spent With Patient Time: Total time managing care of this patient today ____ minutes. Quality Stroke Does the patient have a stroke diagnosis?: No VTE Prior VTE?: No VTE Risk Level:: Medical - moderate - high VTE Device Contraindication: N/A - Device Ordered VTE Drug Contraindication: Treatment Not Indicated
[2022-11-07 15:36] VITALS: BP 155/73; PULSE 92; RESP 18; TEMP 36.5; O2SAT 97
[2022-11-07] MEDS: Omeprazole 20 MG CAPSULE.DR PO (16:58)
[2022-11-07] MEDS: Throat Lozenge, Medicated LOZENGE 1 LOZENGE MUCOUS MEM (16:59)
[2022-11-07 19:37] VITALS: BP 134/71; PULSE 103; RESP 18; TEMP 36; O2SAT 99
[2022-11-08] VITALS: TEMP -17.7; TEMP 0
--- NOTE | 2022-11-08 01:49 | PC.NURSE ---
Pt was ssen on bed alert, verbally aggressive to staff, rude and yelling, meds identified and offered to pt, pt refused, reapproached later and pt still refused to take meds, Dr. Rodriguez was made aware.
[2022-11-08 07:19] VITALS: BP 138/73; PULSE 99; RESP 20; TEMP 36.7; O2SAT 99
[2022-11-08 08:10] LABS: Anion Gap 16 (12-20); Blood Urea Nitrogen 23 mg/dL (9-16); Calcium 8.2 mg/dL (8.4-10.2); Carbon Dioxide 33 mmol/L (22-29); Chloride 94 mmol/L (96-108); Estimated Glomerular Filt Rate 50; Glucose Random 110 mg/dL (60-115); Potassium 2.7 mmol/L (3.3-5.1); Sodium 140 mmol/L (135-145)
[2022-11-08] MEDS: 0.9 % Sodium Chloride Flush 3 ML SYRINGE IVFLUSH ×2 (08:57→22:03)
[2022-11-08] MEDS: Fluticasone Propionate Nasal 16 GM SPRAY 1 SPRAY NOSTRIL-B (09:12)
[2022-11-08] MEDS: Doxycycline Monohydrate 100 MG CAPSULE PO ×2 (10:20→22:03)
[2022-11-08] MEDS: Potassium Chloride Packet 20 MEQ PACKET 40 MEQ PO (10:20)
[2022-11-08 11:25] VITALS: BP 133/87; PULSE 131; RESP 22; O2SAT 99
[2022-11-08] MEDS: predniSONE 5 MG TABLET PO (11:31)
[2022-11-08] MEDS: Docusate Sodium 100 MG CAPSULE PO ×2 (11:31→22:03)
[2022-11-08] MEDS: Isosorbide Mononitrate 30 MG TAB.ER.24H PO (11:31)
[2022-11-08] MEDS: Thiamine HCL 100 MG TABLET PO ×2 (11:32→22:03)
[2022-11-08] MEDS: Multivitamin TABLET 1 TAB PO (11:32)
[2022-11-08] MEDS: Acetaminophen 325 MG TABLET 650 MG PO (11:32)
[2022-11-08] MEDS: Aspirin Enteric Coated 81 MG TABLET.DR PO (11:32)
[2022-11-08] MEDS: Potassium Chloride ER 20 MEQ TAB.ER.PRT 40 MEQ PO (11:58)
[2022-11-08 12:45] LABS: Magnesium 1.1 mg/dL (1.6-2.6)
[2022-11-08] MEDS: Magnesium Oxide 400 MG TABLET 800 MG PO (13:04)
--- NOTE | 2022-11-08 14:09 | HO.PM.IMPN ---
Subjective Subjective Date of Service: 11/08/22 Interval History: Patient eating breakfast, refusing medications appears angry, hitting on the table, called daughter on the phone, patient's spoke with her fine and requested her to come later saw patient in the presence of daughter patient was calm cooperative to medications from daughter as per daughter patient has these fluctuations in her temper, patient also noted to be pulling her nasal cannula and picking her nose, complained of right shoulder discomfort requested for tramadol, denies shortness of breath, denies nausea, no vomiting, no diarrhea no other acute complaints. Review of Systems All other systems are reviewed and negative. Physical Exam Vital Signs: Vital Signs: Last Vital Signs Temp 98.1 F 11/08/22 07:19 Pulse 131 H 11/08/22 11:25 Resp 22 H 11/08/22 11:25 BP 133/87 11/08/22 11:25 Pulse Ox 99 11/08/22 11:25 O2 Del Method Nasal Cannula 11/08/22 11:25 O2 Flow Rate 1.5 11/07/22 19:37 BMI result Body Mass Index 24.4 Const: Other: Gen:? Awake alert x3, in no acute distress, Neck: supple, no lymphadenopathy Lungs:? No respiratory distress, ,clear to auscultation , no crackles Heart:? Regular, no murmurs Abd: soft,? non-distended, bowel sounds? audible Ext: no edema Neuro: alert and oriented x3, no focal findings Skin ecchymosis Objective Data Active Medications Acetaminophen (Acetaminophen 325 Mg Tablet) 650 mg PO Q6H PRN PRN Reason: Pain, Mild (Pain Scale 1-3) Last Admin: 11/08/22 11:32 Dose: 650 mg Documented By: SAIDA Albuterol Sulfate (Albuterol Sulfate 90 Mcg 8 Gm Inhaler) 2 puff INHALE RQ4H PRN PRN Reason: Shortness Of Breath Or Wheezing Aspirin (Aspirin Enteric Coated 81 Mg Tablet.) 81 mg PO DAILY [facility] Last Admin: 11/08/22 11:32 Dose: 81 mg Documented By: SAIDA Atorvastatin Calcium (Atorvastatin Calcium 40 Mg Tablet) 40 mg PO BEDTIME [facility] Last Admin: 11/07/22 23:43 Dose: Not Given Documented By: JAG Non-Admin Reason: Patient Refused Benzocaine (Throat Lozenge, Medicated Lozenge) 1 lozenge MUCOUS MEM Q2H PRN PRN Reason: Sore Throat Last Admin: 11/07/22 16:59 Dose: 1 lozenge Documented By: COTEMA Docusate Sodium (Docusate Sodium 100 Mg Capsule) 100 mg PO DAILY PRN PRN Reason: Constipation Docusate Sodium (Docusate Sodium 100 Mg Capsule) 100 mg PO BID [facility] Last Admin: 11/08/22 11:31 Dose: 100 mg Documented By: SAIDA Doxycycline Monohydrate (Doxycycline Monohydrate 100 Mg Capsule) 100 mg PO Q12H [facility] Last Admin: 11/08/22 10:20 Dose: 100 mg Documented By: SAIDA Fluticasone Propionate (Fluticasone Propionate Nasal 16 Gm [place]) 1 spray NOSTRIL-B BID [facility] Last Admin: 11/08/22 09:12 Dose: 1 spray Documented By: RAHEEM Guaifenesin (Guaifenesin 200 Mg/10 Ml 10 Ml Liquid) 10 ml PO Q4H PRN PRN Reason: Cough Magnesium Sulfate (Magnesium Sulfate/H2o) 2 gm in 50 mls @ 25 mls/hr IV ONCE ONE Stop: 11/08/22 14:43 Isosorbide Mononitrate (Isosorbide Mononitrate 30 Mg Tab.Er.24h) 30 mg PO DAILY [facility]; Protocol Last Admin: 11/08/22 11:31 Dose: 30 mg Documented By: SAIDA Levalbuterol HCl (Levalbuterol Hcl 1.25 Mg/3 Ml Vial.Neb) 1.25 mg INHALE TID [facility] Last Admin: 11/08/22 12:11 Dose: Not Given Documented By: SOHAM Non-Admin Reason: Patient Refused Montelukast Sodium (Montelukast Sodium 10 Mg Tablet) 10 mg PO BEDTIME [facility] Last Admin: 11/07/22 23:44 Dose: Not Given Documented By: JAG Non-Admin Reason: Patient Refused Multivitamins/Vitamin C (Multivitamin Tablet) 1 tab PO DAILY [facility] Last Admin: 11/08/22 11:32 Dose: 1 tab Documented By: SAIDA Pt Own (Umeclidinium -Vilanterol [Anoro Ellipta] 62.5-25 Mcg /Actuation Bl 1 each INHALE RDAILY [facility] Last Admin: 11/08/22 07:54 Dose: Not Given Documented By: SOHAM Non-Admin Reason: Med Not Available Nystatin (Nystatin Oral Susp 500,000 Unit/5 Ml Oral.Susp) 100,000 unit BUCCAL TID [facility]; Protocol Last Admin: 11/08/22 10:50 Dose: Not Given Documented By: SAIDA Non-Admin Reason: Patient Refused Omeprazole (Omeprazole 20 Mg Capsule.Dr) 20 mg PO BID@0600,1630 [facility] Last Admin: 11/08/22 05:54 Dose: Not Given Documented By: JAG Non-Admin Reason: Patient Refused Ondansetron HCl (Ondansetron Hcl 4 Mg/2 Ml Vial) 4 mg IVPUSH Q8H PRN PRN Reason: Nausea and Vomiting Pharmacy Consult (Consult Rx Perform Med Rec) 1 each MISCELLANE ONCE PRN PRN Reason: Consult order Prednisone (Prednisone 5 Mg Tablet) 5 mg PO DAILY [facility] Last Admin: 11/08/22 11:31 Dose: 5 mg Documented By: SIADA Sodium Chloride (0.9 % Sodium Chloride Flush 3 Ml Syringe) 3 ml IVFLUSH QSHIFT [facility] Last Admin: 11/08/22 08:57 Dose: 3 ml Documented By: RAHEEM Thiamine HCl (Thiamine Hcl 100 Mg Tablet) 100 mg PO BID [facility] Last Admin: 11/08/22 11:32 Dose: 100 mg Documented By: SAIDA Tobramycin Sulfate (Tobramycin Sulfate 80 Mg/2 Ml Vial) 300 mg INHALE Q12H [facility] Labs 11/07/22 08:14 11/08/22 07:44 Labs: Laboratory Results - last 24 hr 11/08/22 07:44 Anion Gap 16 Estim Creat Clear Calc 32.0 Estimated GFR 50 Random Glucose 110 Calcium 8.2 L Magnesium 1.1 L* Microbiology Microbiology Results: Microbiology 11/02/22 13:39 Blood Culture - Final Blood - Venous No growth after 5 days. 11/02/22 13:24 Blood Culture - Final Blood - Venous No growth after 5 days. 11/02/22 Unknown Urine Culture - Final Urine clean catch - Urine mcdonald top Proteus mirabilis Enterococcus faecalis Assessment and Plan (1) Sepsis: Status: Acute Plan 81-year-old female with COPD, history of pseudomonal pneumonia on inhaled tobramycin, coronary artery disease, paroxysmal atrial fibrillation on asa not currently on anticoagulation, congestive heart failure, VRE UTI, recent SBO s/p incarcerated umbilical hernia repair admitted for hospital acquired pneumonia, UTI, metabolic encephalopathy with severe sepsis. 1.Severe sepsis- secondary to pneumonia -resolved 2. Right lower lobe infiltrate Seen by ID no concern for hospital-acquired pneumonia question aspiration, she recommend doxycycline for total 10 days will transition to by mouth doxy 100 mg b.i.d.day 09/19 3.Acute UTI Seen by ID since patient has no fever and has chronic pyuria ,only [id number] CFU Proteus and Enterococcus so not convincing evidence of UTI, therefore no antibiotic recommended 4.Acute kidney injury -likely pre renal, resolved with IV fluids renal function remains normal, will hold torsemide and resume lower dose 5.Acute toxic metabolic encephalopathy -resolved initially, today mild confusion and anger likely related to electrolyte abnormality will replace electrolyte and follow clinical course , DC doxazosin, for case discussed with patient's daughter 6.Paroxysmal afib -rate control adequate, on aspirin currently not on anticoagulation due to 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 Hypokalemia due to diuretics potassium remains 2.7 will replace IV and by mouth and follow 8. Sore throat on Cepastat and is on doxycycline, no further antibiotic needed 9. Hypo magnesemia 1.1, repleted will follow labs, add tele monitoring, SCPs Full code discussed goal of care with patient's daughter Ximena Coreas due to multiple comorbidities, recurrent hospitalization, she wishes patient to be full code as per her mom's wishes. Requires ongoing hospitalization for multiple electrolyte abnormality requiring IV magnesium and potassium, and for mild confusion likely related to electrolyte abnormality. Time Spent With Patient Time: Total time managing care of this patient today ____ minutes. Quality Stroke Does the patient have a stroke diagnosis?: No VTE Prior VTE?: No VTE Risk Level:: Medical - moderate - high VTE Device Contraindication: N/A - Device Ordered VTE Drug Contraindication: Treatment Not Indicated
[2022-11-08] MEDS: Magnesium Sulfate/H2O 2 GM/50 ML PIGGYBACK IV (14:55)
[2022-11-08] MEDS: Potassium Chloride/H20 10 MEQ/100 ML PIGGYBACK 100 MEQ IV (14:55)
[2022-11-08 15:38] LABS: Anion Gap 19 (12-20); Blood Urea Nitrogen 25 mg/dL (9-16); Calcium 8.3 mg/dL (8.4-10.2); Carbon Dioxide 32 mmol/L (22-29); Chloride 94 mmol/L (96-108); Creatinine Clr Calc Pharmacy 31.4; Estimated Glomerular Filt Rate 49; Glucose Random 151 mg/dL (60-115); Potassium 3.9 mmol/L (3.3-5.1); Sodium 141 mmol/L (135-145)
[2022-11-08 15:42] LABS: INTERNATIONAL NORM RATIO 1.4 (0.9-1.1)
[2022-11-08 16:00] VITALS: BP 145/97; PULSE 119; RESP 20; TEMP 36.1
[2022-11-08 16:30] LABS: Magnesium 1.3 mg/dL (1.6-2.6)
--- NOTE | 2022-11-08 16:40 | PC.NURSE ---
Pt refusing evening PO medications and refusing Tele monitoring, pulling off tele monitoring leads, MD made aware, Pt verbally abusive to staff, IV medications completed.
[2022-11-08 19:29] VITALS: BP 127/66; PULSE 107; RESP 18; TEMP 36.1; O2SAT 96
[2022-11-08] MEDS: guaiFENesin 200 MG/10 ML 10 ML LIQUID PO (22:02)
[2022-11-08] MEDS: Nystatin Oral Susp 500,000 UNIT/5 ML ORAL.SUSP 100000 UNIT BUCCAL (22:02)
[2022-11-08] MEDS: Montelukast Sodium 10 MG TABLET PO (22:03)
[2022-11-08] MEDS: Atorvastatin Calcium 40 MG TABLET PO (22:03)
[2022-11-09 04:11] VITALS: BP 180/88; PULSE 131; RESP 16; TEMP 36.1; O2SAT 96
[2022-11-09] MEDS: Metoprolol Tartrate 5 MG/5 ML VIAL IVPUSH (04:50)
[2022-11-09 05:14] VITALS: BP 174/100; PULSE 96; RESP 20; O2SAT 96
--- NOTE | 2022-11-09 05:15 | PC.NURSE ---
Pt had BP= 180/88 HR= 134 at 0430, Dr. Rodriguez was made aware, homemaker companion placed and showed ST with frequent PVCs at 130 as per tech, MD chan aware, Metoprolol 5 mg IV ordered, pt was refusing at first, spitting at staff and calling staffs names, tried to reorient and convince pt about need for med, and settled a meager amount of time, HR went down to 90s-100s, BP 170/100.
[2022-11-09] MEDS: Magnesium Oxide 400 MG TABLET PO (09:02)
[2022-11-09] MEDS: Isosorbide Mononitrate 30 MG TAB.ER.24H PO (09:03)
[2022-11-09] MEDS: Multivitamin TABLET 1 TAB PO (09:03)
[2022-11-09] MEDS: Docusate Sodium 100 MG CAPSULE PO (09:03)
[2022-11-09] MEDS: Aspirin Enteric Coated 81 MG TABLET.DR PO (09:03)
[2022-11-09] MEDS: Thiamine HCL 100 MG TABLET PO ×2 (09:03→20:24)
[2022-11-09] MEDS: 0.9 % Sodium Chloride Flush 3 ML SYRINGE IVFLUSH ×3 (09:03→23:40)
[2022-11-09] MEDS: predniSONE 5 MG TABLET PO (09:04)
[2022-11-09 15:00] LABS: Anion Gap 14 (12-20); Blood Urea Nitrogen 22 mg/dL (9-16); Calcium 9.4 mg/dL (8.4-10.2); Carbon Dioxide 35 mmol/L (22-29); Chloride 95 mmol/L (96-108); Creatinine Clr Calc Pharmacy 32.3; Estimated Glomerular Filt Rate 51; Glucose Random 174 mg/dL (60-115); Magnesium 1.9 mg/dL (1.6-2.6); Potassium 3.7 mmol/L (3.3-5.1); Sodium 140 mmol/L (135-145)
[2022-11-09 15:29] VITALS: BP 143/64; PULSE 95; RESP 18; TEMP 36; O2SAT 97
--- NOTE | 2022-11-09 16:05 | P.PNIM_ITS ---
Subjective Subjective Date of Service: 11/09/22 Interval History: Complaining of sore throat, difficulty swallowing although tolerated all medications and diet, oxygenation stable on room air no acute issues overnight, no fevers no chills, tolerating diet with no nausea no vomiting, no abdominal pain. Review of Systems All other system reviewed and negative. Physical Exam Vital Signs: Vital Signs: Last Vital Signs Temp 96.8 F 11/09/22 15:29 Pulse 95 11/09/22 15:29 Resp 18 11/09/22 15:29 BP 143/64 H 11/09/22 15:29 Pulse Ox 97 11/09/22 15:29 O2 Del Method Room Air 11/09/22 15:29 O2 Flow Rate 1.5 11/07/22 19:37 BMI result Body Mass Index 24.4 Const: Other: Gen:? Awake alert x3, in no acute di stress, Neck: supp le, no lymphadenop athy Lungs:? No re spiratory distress , ,clear to auscul tation , no crackl es Heart:? Regular , no murmurs Abd: soft,? non-distend ed, bowel sounds? audible Ext: no ed sincere Neuro: alert a nd oriented x3, no focal findings Sk in ecchymosis both upper extremities Over Objective Data Active Medications Acetaminophen (Acetaminophen 325 Mg Tablet) 650 mg PO Q6H PRN PRN Reason: Pain, Mild (Pain Scale 1-3) Last Admin: 11/08/22 11:32 Dose: 650 mg Documented By: SAIDA Albuterol Sulfate (Albuterol Sulfate 90 Mcg 8 Gm Inhaler) 2 puff INHALE RQ4H PRN PRN Reason: Shortness Of Breath Or Wheezing Aspirin (Aspirin Enteric Coated 81 Mg Tablet.) 81 mg PO DAILY [facility] Last Admin: 11/09/22 09:03 Dose: 81 mg Documented By: GANESH Atorvastatin Calcium (Atorvastatin Calcium 40 Mg Tablet) 40 mg PO BEDTIME [facility] Last Admin: 11/08/22 22:03 Dose: 40 mg Documented By: CASTILM Benzocaine (Throat Lozenge, Medicated Lozenge) 1 lozenge MUCOUS MEM Q2H PRN PRN Reason: Sore Throat Last Admin: 11/07/22 16:59 Dose: 1 lozenge Documented By: COTEMA Docusate Sodium (Docusate Sodium 100 Mg Capsule) 100 mg PO DAILY PRN PRN Reason: Constipation Docusate Sodium (Docusate Sodium 100 Mg Capsule) 100 mg PO BID [facility] Last Admin: 11/09/22 09:03 Dose: 100 mg Documented By: GANESH Doxycycline Monohydrate (Doxycycline Monohydrate 100 Mg Capsule) 100 mg PO Q12H [facility] Last Admin: 11/09/22 11:48 Dose: Not Given Documented By: GANESH Non-Admin Reason: Patient Refused Fluticasone Propionate (Fluticasone Propionate Nasal 16 Gm [place]) 1 spray NOSTRIL-B BID [facility] Last Admin: 11/09/22 09:09 Dose: Not Given Documented By: GANESH Non-Admin Reason: Patient Refused Guaifenesin (Guaifenesin 200 Mg/10 Ml 10 Ml Liquid) 10 ml PO Q4H PRN PRN Reason: Cough Last Admin: 11/08/22 22:02 Dose: 10 ml Documented By: JAG Isosorbide Mononitrate (Isosorbide Mononitrate 30 Mg Tab.Er.24h) 30 mg PO DAILY [facility]; Protocol Last Admin: 11/09/22 09:03 Dose: 30 mg Documented By: GANESH Levalbuterol HCl (Levalbuterol Hcl 1.25 Mg/3 Ml Vial.Neb) 1.25 mg INHALE TID [facility] Last Admin: 11/09/22 14:27 Dose: Not Given Documented By: JOSE Non-Admin Reason: Patient Refused Montelukast Sodium (Montelukast Sodium 10 Mg Tablet) 10 mg PO BEDTIME [facility] Last Admin: 11/08/22 22:03 Dose: 10 mg Documented By: JAG Multivitamins/Vitamin C (Multivitamin Tablet) 1 tab PO DAILY [facility] Last Admin: 11/09/22 09:03 Dose: 1 tab Documented By: GANESH Pt Own (Umeclidinium -Vilanterol [Anoro Ellipta] 62.5-25 Mcg /Actuation Bl 1 each INHALE RDAILY [facility] Last Admin: 11/09/22 07:45 Dose: Not Given Documented By: JOSE Non-Admin Reason: pt non compliant spitting at ppl Nystatin (Nystatin Oral Susp 500,000 Unit/5 Ml Oral.Susp) 100,000 unit BUCCAL TID [facility]; Protocol Last Admin: 11/09/22 09:09 Dose: Not Given Documented By: GANESH Non-Admin Reason: Patient Refused Omeprazole (Omeprazole 20 Mg Capsule.) 20 mg PO BID@0600,1630 [facility] Last Admin: 11/09/22 05:14 Dose: Not Given Documented By: JAG Non-Admin Reason: Patient Refused Ondansetron HCl (Ondansetron Hcl 4 Mg/2 Ml Vial) 4 mg IVPUSH Q8H PRN PRN Reason: Nausea and Vomiting Pharmacy Consult (Consult Rx Perform Med Rec) 1 each MISCELLANE ONCE PRN PRN Reason: Consult order Prednisone (Prednisone 5 Mg Tablet) 5 mg PO DAILY [facility] Last Admin: 11/09/22 09:04 Dose: 5 mg Documented By: GANESH Sodium Chloride (0.9 % Sodium Chloride Flush 3 Ml Syringe) 3 ml IVFLUSH QSHIFT [facility] Last Admin: 11/09/22 09:03 Dose: 3 ml Documented By: GANESH Sodium Chloride (Sodium Chloride 0.65 % Nasal 44 Ml Sprbtl) 1 spray NOSTRIL-B Q1H PRN PRN Reason: Dryness Thiamine HCl (Thiamine Hcl 100 Mg Tablet) 100 mg PO BID [facility] Last Admin: 11/09/22 09:03 Dose: 100 mg Documented By: GANESH Tobramycin Sulfate (Tobramycin Sulfate 80 Mg/2 Ml Vial) 300 mg INHALE Q12H [facility] Labs 11/07/22 08:14 11/09/22 14:15 Labs: Laboratory Results - last 24 hr 11/08/22 11/08/22 11/09/22 15:11 15:22 14:15 PT 16.0 H INR 1.4 H Anion Gap 14 Estim Creat Clear Calc 32.3 Estimated GFR 51 Random Glucose 174 H Calcium 9.4 D Magnesium 1.3 L* 1.9 11/09/22 14:15 PT INR Anion Gap Cancelled Estim Creat Clear Calc Estimated GFR Random Glucose Calcium Magnesium Cancelled Assessment and Plan (1) Sepsis: Status: Acute Plan 81-year-old female with COPD, history of pseudomonal pneumonia on inhaled tobramycin, coronary artery disease, paroxysmal atrial fibrillation on asa not currently on anticoagulation, congestive heart failure, VRE UTI, recent SBO s/p incarcerated umbilical hernia repair admitted for hospital acquired pneumonia, UTI, metabolic encephalopathy with severe sepsis. 1.Severe sepsis- secondary to pneumonia -resolved 2. Right lower lobe infiltrate Seen by ID no concern for hospital-acquired pneumonia question aspiration, she recommend doxycycline for total 10 days will transition to by mouth doxy 100 mg b.i.d.day 10/19 3.Acute UTI Seen by ID since patient has no fever and has chronic pyuria ,only [id number] CFU Proteus and Enterococcus so not convincing evidence of UTI, therefore no antib iotic recommended 4.Acute kidney injury -likely pre renal, resolved with IV fluids renal function remains normal, will hold torsemide and resume lower dose torsemide 20 mg by mouth daily 5.Acute toxic metabolic encephalopathy -resolved has no confusion , but have mood swings and anger issues,resume doxazosin, dont think related to any medication 6.Paroxysmal afib -rate control adequate, on aspirin currently not on anticoagulation due to 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 Hypokalemia due to diuretics repleted and potassium normalized 8. Sore throat on Cepastat and is on doxycycline, no further antibiotic needed, normal throat examination normal tongue. 9. Hypomagnesemia 1.1, repleted magnesium improved to 1.9 SCPs Full code discussed goal of care with patient's daughter Ximena Coreas due to multiple comorbidities, recurrent hospitalization, she wishes patient to be full code as per her mom's wishes. Requires ongoing hospitalization for multiple electrolyte abnormality , requiring electrolyte monitoring. Time Spent With Patient Time: Total time managing care of this patient today ____ minutes. Quality Stroke Does the patient have a stroke diagnosis?: No VTE Prior VTE?: No VTE Risk Level:: Medical - moderate - high VTE Device Contraindication: N/A - Device Ordered VTE Drug Contraindication: Treatment Not Indicated
[2022-11-09] MEDS: Omeprazole 20 MG CAPSULE.DR PO (16:11)
[2022-11-09] MEDS: Nystatin Oral Susp 500,000 UNIT/5 ML ORAL.SUSP 100000 UNIT BUCCAL (16:12)
[2022-11-09 19:10] VITALS: BP 152/67; PULSE 100; RESP 18; TEMP 36; O2SAT 97
[2022-11-09] MEDS: Montelukast Sodium 10 MG TABLET PO (20:24)
[2022-11-09] MEDS: Fluticasone Propionate Nasal 16 GM SPRAY 1 SPRAY NOSTRIL-B (20:24)
[2022-11-09] MEDS: Atorvastatin Calcium 40 MG TABLET PO (20:24)
[2022-11-10] VITALS (7 sets, daily range): BP systolic 135–152; BP diastolic 61–86; PULSE 65–120; RESP 17–22; TEMP 36.1–37.2; O2SAT 95–97
--- NOTE | 2022-11-10 | ECG_ITS ---
Test Reason : CP Blood Pressure : / mmHG Vent. Rate : 114 BPM Atrial Rate : 267 BPM P-R Int : 000 ms QRS Dur : 092 ms QT Int : 306 ms P-R-T Axes : 000 016 164 degrees QTc Int : 421 ms Atrial flutter with variable A-V block ST & T wave abnormality, consider lateral ischemia Abnormal ECG When compared with ECG of 02-NOV-2022 13:09, No significant change was found Referred By: Katie Guerra Electronically Signed By:MAKEDA BREAUX MD
[2022-11-10] MEDS: Omeprazole 20 MG CAPSULE.DR PO ×2 (05:37→16:59)
[2022-11-10] MEDS: Isosorbide Mononitrate 30 MG TAB.ER.24H PO (07:40)
[2022-11-10] MEDS: predniSONE 5 MG TABLET PO (07:40)
[2022-11-10] MEDS: Multivitamin TABLET 1 TAB PO (07:40)
[2022-11-10] MEDS: Thiamine HCL 100 MG TABLET PO ×2 (07:40→21:28)
[2022-11-10] MEDS: Aspirin Enteric Coated 81 MG TABLET.DR PO (07:41)
[2022-11-10] MEDS: Docusate Sodium 100 MG CAPSULE PO ×2 (07:41→21:28)
[2022-11-10] MEDS: 0.9 % Sodium Chloride Flush 3 ML SYRINGE IVFLUSH ×3 (07:41→21:28)
[2022-11-10] MEDS: Fluticasone Propionate Nasal 16 GM SPRAY 1 SPRAY NOSTRIL-B (07:41)
[2022-11-10] MEDS: Tobramycin Sulfate 80 MG/2 ML VIAL 300 MG INHALE ×2 (09:07→21:08)
[2022-11-10] MEDS: Doxycycline Monohydrate 100 MG CAPSULE PO ×2 (10:14→21:27)
--- NOTE | 2022-11-10 11:27 | HO.PM.IMPN ---
Subjective Subjective Date of Service: 11/10/22 Interval History: seen and examined this morning follow up for pneumonia, UTI awake, alert. no specific complaints Review of Systems Review of Systems: Yes all other systems are reviewed and are negative Constitutional Constitutional: Denies chills and Denies fever(s) Cardiovascular Cardiovascular: Denies chest pain Respiratory Respiratory: Denies cough Gastrointestinal Gastrointestinal: Denies abdominal pain Physical Exam Vital Signs: Vital Signs: Last Vital Signs Temp 97.0 F 11/10/22 08:00 Pulse 120 H 11/10/22 09:11 Resp 18 11/10/22 09:11 BP 150/86 H 11/10/22 08:00 Pulse Ox 97 11/10/22 08:00 O2 Del Method Nasal Cannula 11/10/22 08:00 O2 Flow Rate 1.5 11/10/22 08:00 BMI result Body Mass Index 24.4 Const: General: no acute distress, alert and awake Nutritional Appearance: average body habitus Resp: Effort & Inspection: normal respiratory effort, able to speak in complete sentences, no respiratory distress and no use of accessory muscles Cardio: Rate: tachycardic GI: Inspection: No distended Palpation (GI): Soft to palpation and nontender Skin: Other: bruising b/l hands Neuro: Other: grossly nonfocal General: moves all extremities Objective Data Active Medications Acetaminophen (Acetaminophen 325 Mg Tablet) 650 mg PO Q6H PRN PRN Reason: Pain, Mild (Pain Scale 1-3) Last Admin: 11/08/22 11:32 Dose: 650 mg Documented By: SAIDA Albuterol Sulfate (Albuterol Sulfate 90 Mcg 8 Gm Inhaler) 2 puff INHALE RQ4H PRN PRN Reason: Shortness Of Breath Or Wheezing Aspirin (Aspirin Enteric Coated 81 Mg Tablet.) 81 mg PO DAILY [facility] Last Admin: 11/10/22 07:41 Dose: 81 mg Documented By: GROVER Atorvastatin Calcium (Atorvastatin Calcium 40 Mg Tablet) 40 mg PO BEDTIME [facility] Last Admin: 11/09/22 20:24 Dose: 40 mg Documented By: ALEXANDRE Benzocaine (Throat Lozenge, Medicated Lozenge) 1 lozenge MUCOUS MEM Q2H PRN PRN Reason: Sore Throat Last Admin: 11/07/22 16:59 Dose: 1 lozenge Documented By: HO.COTEMA Docusate Sodium (Docusate Sodium 100 Mg Capsule) 100 mg PO DAILY PRN PRN Reason: Constipation Docusate Sodium (Docusate Sodium 100 Mg Capsule) 100 mg PO BID [facility] Last Admin: 11/10/22 07:41 Dose: 100 mg Documented By: GROVER Doxycycline Monohydrate (Doxycycline Monohydrate 100 Mg Capsule) 100 mg PO Q12H [facility] Last Admin: 11/10/22 10:14 Dose: 100 mg Documented By: GROVER Fluticasone Propionate (Fluticasone Propionate Nasal 16 Gm [place]) 1 spray NOSTRIL-B BID [facility] Last Admin: 11/10/22 07:41 Dose: 1 spray Documented By: GROVER Guaifenesin (Guaifenesin 200 Mg/10 Ml 10 Ml Liquid) 10 ml PO Q4H PRN PRN Reason: Cough Last Admin: 11/08/22 22:02 Dose: 10 ml Documented By: CASTMELONIE Isosorbide Mononitrate (Isosorbide Mononitrate 30 Mg Tab.Er.24h) 30 mg PO DAILY [facility]; Protocol Last Admin: 11/10/22 07:40 Dose: 30 mg Documented By: GROVER Montelukast Sodium (Montelukast Sodium 10 Mg Tablet) 10 mg PO BEDTIME [facility] Last Admin: 11/09/22 20:24 Dose: 10 mg Documented By: ALEXANDER Multivitamins/Vitamin C (Multivitamin Tablet) 1 tab PO DAILY [facility] Last Admin: 11/10/22 07:40 Dose: 1 tab Documented By: GROVER Pt Own (Umeclidinium -Vilanterol [Anoro Ellipta] 62.5-25 Mcg /Actuation Bl 1 each INHALE RDAILY [facility] Last Admin: 11/10/22 09:10 Dose: Not Given Documented By: KAY Non-Admin Reason: unable to locate med. Will check with family Nystatin (Nystatin Oral Susp 500,000 Unit/5 Ml Oral.Susp) 100,000 unit BUCCAL TID [facility]; Protocol Last Admin: 11/10/22 07:42 Dose: Not Given Documented By: GROVER Non-Admin Reason: Patient Refused Omeprazole (Omeprazole 20 Mg [place].) 20 mg PO BID@0600,1630 [facility] Last Admin: 11/10/22 05:37 Dose: 20 mg Documented By: DANIELLE Ondansetron HCl (Ondansetron Hcl 4 Mg/2 Ml Vial) 4 mg IVPUSH Q8H PRN PRN Reason: Nausea and Vomiting Pharmacy Consult (Consult Rx Perform Med Rec) 1 each MISCELLANE ONCE PRN PRN Reason: Consult order Prednisone (Prednisone 5 Mg Tablet) 5 mg PO DAILY [facility] Last Admin: 11/10/22 07:40 Dose: 5 mg Documented By: GROVER Sodium Chloride (0.9 % Sodium Chloride Flush 3 Ml Syringe) 3 ml IVFLUSH QSHIFT [facility] Last Admin: 11/10/22 07:41 Dose: 3 ml Documented By: GROVER Sodium Chloride (Sodium Chloride 0.65 % Nasal 44 Ml Sprbtl) 1 spray NOSTRIL-B Q1H PRN PRN Reason: Dryness Thiamine HCl (Thiamine Hcl 100 Mg Tablet) 100 mg PO BID [facility] Last Admin: 11/10/22 07:40 Dose: 100 mg Documented By: GROVER Tobramycin Sulfate (Tobramycin Sulfate 80 Mg/2 Ml Vial) 300 mg INHALE Q12H [facility] Last Admin: 11/10/22 09:07 Dose: 300 mg Documented By: KAY Labs 11/07/22 08:14 11/09/22 14:15 Labs: Laboratory Results - last 24 hr 11/09/22 11/09/22 14:15 14:15 Anion Gap 14 Cancelled Estim Creat Clear Calc 32.3 Estimated GFR 51 Random Glucose 174 H Calcium 9.4 D Magnesium 1.9 Cancelled Assessment and Plan (1) Pneumonia: Status: Acute (2) Atrial flutter with rapid ventricular response: Status: Acute Plan 81-year-old female with COPD, history of pseudomonal pneumonia on inhaled tobramycin, coronary artery disease, paroxysmal atrial fibrillation on asa not currently on anticoagulation, congestive heart failure, VRE UTI, recent SBO s/p incarcerated umbilical hernia repair admitted for hospital acquired pneumonia, UTI, metabolic encephalopathy with severe sepsis. Paroxysmal afib - now in rapid ventricular response on aspirin currently not on anticoagulation due to recent episode of hemorrhagic bullae and heparin-induced thrombocytopenia, spoke with daughter and informed to discuss with PCP regarding resumption of anticoagulation allergy to carvedilol; previously on cardizem, d/c at [facility] during recent hospitaliation presumed due to low EF will give one dose IV digoxin and discuss with cardiology cardiology consult pending HFrEF torsemide placed on hold 11/09 continue imdur Severe sepsis- secondary to pneumonia resolved Right lower lobe infiltrate Seen by ID no concern for hospital-acquired pneumonia question aspiration, she recommend doxycycline for total 10 days will transition to by mouth doxy 100 mg b.i.d.day 10/19 Acute UTI Seen by ID since patient has no fever and has chronic pyuria ,only [phone] Proteus and Enterococcus so not convincing evidence of UTI, therefore no antibiotic recommended Acute kidney injury likely pre renal, resolved with IV fluids renal function remains normal, will hold torsemide and resume lower dose torsemide 20 mg by mouth daily Acute toxic metabolic encephalopathy resolved has no confusion , but have mood swings and anger issues,resume doxazosin, don't think related to any medication Hypokalemia due to diuretics repleted and potassium normalized Sore throat on Cepastat and is on doxycycline, no further antibiotic needed, normal throat examination normal tongue. Hypomagnesemia 1.1, repleted magnesium improved to 1.9 SCPs Full code discussed goal of care with patient's daughter Ximena Coreas due to multiple comorbidities, recurrent hospitalization, she wishes patient to be full code as per her mom's wishes. Requires ongoing hospitalization for multiple electrolyte abnormality, requiring electrolyte monitoring, close monitoring for afib rvr attending - Dr. Marcial Time Spent With Patient Time: Total time managing care of this patient today ____ minutes. Quality Stroke Does the patient have a stroke diagnosis?: No VTE Prior VTE?: No VTE Risk Level:: Medical - moderate - high VTE Device Contraindication: N/A - Device Ordered VTE Drug Contraindication: Treatment Not Indicated
[2022-11-10] MEDS: Digoxin 0.5 MG/2 ML AMPUL 0.25 MG IVPUSH (11:43)
[2022-11-10 12:51] LABS: Anion Gap 17 (12-20); Blood Urea Nitrogen 24 mg/dL (9-16); Calcium 9.1 mg/dL (8.4-10.2); Carbon Dioxide 28 mmol/L (22-29); Chloride 96 mmol/L (96-108); Creatinine Clr Calc Pharmacy 32.9; Estimated Glomerular Filt Rate 52; Glucose Random 171 mg/dL (60-115); Magnesium 1.7 mg/dL (1.6-2.6); Sodium 137 mmol/L (135-145)
[2022-11-10] MEDS: Metoprolol Tartrate 25 MG TABLET PO ×2 (13:21→21:27)
[2022-11-10] MEDS: Nystatin Oral Susp 500,000 UNIT/5 ML ORAL.SUSP 100000 UNIT BUCCAL ×2 (16:59→21:27)
[2022-11-10 20:24] LABS: Strep Pneumo Ag urine Not Detected (Not Detected)
[2022-11-10] MEDS: Sodium Chloride 0.65 % Nasal 44 ML SPRBTL 1 SPRAY NOSTRIL-B (21:27)
[2022-11-10] MEDS: Atorvastatin Calcium 40 MG TABLET PO (21:28)
[2022-11-10] MEDS: Montelukast Sodium 10 MG TABLET PO (21:28)
[2022-11-10] MEDS: Acetaminophen 325 MG TABLET 650 MG PO (21:41)
[2022-11-11] MEDS: Fluticasone Propionate Nasal 16 GM SPRAY 1 SPRAY NOSTRIL-B ×2 (00:57→09:09)
[2022-11-11] MEDS: Omeprazole 20 MG CAPSULE.DR PO (05:36)
[2022-11-11 06:13] LABS: Legionella Ag Urine Not Detected (Not Detected)
[2022-11-11 08:00] VITALS: BP 149/65; PULSE 69; RESP 18; TEMP 36.1; O2SAT 97
[2022-11-11] MEDS: Tobramycin Sulfate 80 MG/2 ML VIAL 300 MG INHALE (08:01)
[2022-11-11 08:05] VITALS: PULSE 89; RESP 18; O2SAT 98
[2022-11-11] MEDS: 0.9 % Sodium Chloride Flush 3 ML SYRINGE IVFLUSH (09:08)
[2022-11-11] MEDS: Metoprolol Tartrate 25 MG TABLET PO (09:08)
[2022-11-11] MEDS: predniSONE 5 MG TABLET PO (09:08)
[2022-11-11] MEDS: Aspirin Enteric Coated 81 MG TABLET.DR PO (09:08)
[2022-11-11] MEDS: Nystatin Oral Susp 500,000 UNIT/5 ML ORAL.SUSP 100000 UNIT BUCCAL (09:08)
[2022-11-11] MEDS: Thiamine HCL 100 MG TABLET PO (09:09)
[2022-11-11] MEDS: Docusate Sodium 100 MG CAPSULE PO (09:09)
[2022-11-11] MEDS: Multivitamin TABLET 1 TAB PO (09:09)
[2022-11-11] MEDS: Isosorbide Mononitrate 30 MG TAB.ER.24H PO (09:09)
[2022-11-11] MEDS: Doxycycline Monohydrate 100 MG CAPSULE PO (11:44)
--- NOTE | 2022-11-11 12:22 | P.CONCA_ITS ---
History of Present Illness History of Present Illness Date of Service: 11/11/22 Requesting physician: Katie Guerra Consult reason: atrial fibrillation Chief complaint: acute metabolic encephalopathy, aspiration pneumon Narrative: I was consulted to see Jenifer in cardiology consultation today for rate control for atrial flutter. She is 78 serial woman admitted with abdominal pain, failure to thrive altered mental status and infection. Cardiology consult was sought as yesterday or heart rate was elevated. After discussing with me we had started her on metoprolol and digoxin. Since then overnight heart rate has been well controlled. She is not in the mood to talk much. She says she would rather be left alone for now. She denies any symptoms of palpitations. She generally feels weak. Denies any symptoms of chest pain. Does have chronic shortness of breath. Overall she has very complicated past medical history. S he had recent cardiac catheterization [facility] which has shown [place] severe three-vessel disease with patent grafts. She has an echocardiogram with LVEF of about 35% with moderate LV systolic dysfunction with prior history of heart failure. She also has atrial flutter which has been difficult control. Currently off Cardizem therapy. Not on oral anticoagulation, not sure as to why. She has multiple comorbidities with anemia. However I do not see any overt significant contraindications for anticoagulation therapy. Review of Systems Review of Systems: Yes Other (Patient declines to offer much history) [facility] Past Medical History Medical History (Updated 11/11/22 @ 12:27 by Esequiel Darden MD) A-fib Acute encephalopathy Acute hypokalemia Acute respiratory failure with hypoxia Anemia Anemia Aspiration pneumonia Atelectasis of right lung Atrial fibrillation with RVR Bronchiectasis CAD (coronary artery disease) Chronic dyspnea COPD (chronic obstructive pulmonary disease) COPD (chronic obstructive pulmonary disease) Dyspnea Encephalopathy chronic GI bleed Heart failure History of infection with vancomycin resistant Enterococcus (VRE) Paroxysmal A-fib Pseudomonal pneumonia Pseudomonas respiratory infection Pulmonary nodules Pyuria Family History Family History Other No family history of cancer Family history: reviewed and not pertinent Surgical History Surgical History H/O umbilical hernia repair (09/18/22) History of cholecystectomy History of hip replacement History of knee replacement History of quadruple bypass Social History Social History Household Members: Family Housing: House Are you a primary home child care provider to a significant other at home: No Do you presently have visiting nurse or other home services: Yes Alcohol intake: never Patient Tobacco Use Status: Never used Tobacco Tobacco use type: Cigarette Use of substances other than those prescribed or required for medical reasons: No Have you been hit, kicked, punched, or otherwise hurt by someone within the past year? If so, by whom?: No Advance Directives Date on File: 08/24/22 Do you have thoughts of harming others: None Do you have a plan to hurt others: No Plan Do you have the means to hurt others: No Recently lost weight without trying: Yes Eating poorly because of decreased appetite: No Patient : No service: No Current occupational status: retired [employer] Allergies Allergy/AdvReac Type Severity Reaction Status Date / Time carvedilol Allergy Shortness Verified 10/04/22 14:13 of Breath sertraline [From Zoloft] Allergy Shortness Verified 10/04/22 14:13 of Breath spironolactone Allergy Shortness Verified 10/04/22 14:13 of Breath Active Medications: Current Medications Acetaminophen (Acetaminophen 325 Mg Tablet) 650 mg PO Q6H PRN PRN Reason: Pain, Mild (Pain Scale 1-3) Last Admin: 11/10/22 21:41 Dose: 650 mg Albuterol Sulfate (Albuterol Sulfate 90 Mcg 8 Gm Inhaler) 2 puff INHALE RQ4H PRN PRN Reason: Shortness Of Breath Or Wheezing Aspirin (Aspirin Enteric Coated 81 Mg Tablet.Dr) 81 mg PO DAILY [facility] Last Admin: 11/11/22 09:08 Dose: 81 mg Atorvastatin Calcium (Atorvastatin Calcium 40 Mg Tablet) 40 mg PO BEDTIME [facility] Last Admin: 11/10/22 21:28 Dose: 40 mg Benzocaine (Throat Lozenge, Medicated Lozenge) 1 lozenge MUCOUS MEM Q2H PRN PRN Reason: Sore Throat Last Admin: 11/07/22 16:59 Dose: 1 lozenge Docusate Sodium (Docusate Sodium 100 Mg Capsule) 100 mg PO DAILY PRN PRN Reason: Constipation Docusate Sodium (Docusate Sodium 100 Mg Capsule) 100 mg PO BID [facility] Last Admin: 11/11/22 09:09 Dose: 100 mg Doxycycline Monohydrate (Doxycycline Monohydrate 100 Mg Capsule) 100 mg PO Q12H [facility] Last Admin: 11/11/22 11:44 Dose: 100 mg Fluticasone Propionate (Fluticasone Propionate Nasal 16 Gm [place]) 1 spray NOSTRIL-B BID [facility] Last Admin: 11/11/22 09:09 Dose: 1 spray Guaifenesin (Guaifenesin 200 Mg/10 Ml 10 Ml Liquid) 10 ml PO Q4H PRN PRN Reason: Cough Last Admin: 11/08/22 22:02 Dose: 10 ml Isosorbide Mononitrate (Isosorbide Mononitrate 30 Mg Tab.Er.24h) 30 mg PO DAILY [facility]; Protocol Last Admin: 11/11/22 09:09 Dose: 30 mg Metoprolol Tartrate (Metoprolol Tartrate 25 Mg Tablet) 25 mg PO BID [facility]; Protocol Last Admin: 11/11/22 09:08 Dose: 25 mg Montelukast Sodium (Montelukast Sodium 10 Mg Tablet) 10 mg PO BEDTIME [facility] Last Admin: 11/10/22 21:28 Dose: 10 mg Multivitamins/Vitamin C (Multivitamin Tablet) 1 tab PO DAILY [facility] Last Admin: 11/11/22 09:09 Dose: 1 tab Pt Own (Umeclidinium -Vilanterol [Anoro Ellipta] 62.5-25 Mcg /Actuation Bl 1 each INHALE RDAILY [facility] Last Admin: 11/11/22 08:05 Dose: Not Given Nystatin (Nystatin Oral Susp 500,000 Unit/5 Ml Oral.Susp) 100,000 unit BUCCAL TID [facility]; Protocol Last Admin: 11/11/22 09:08 Dose: 100,000 unit Omeprazole (Omeprazole 20 Mg Capsule.Dr) 20 mg PO BID@0600,1630 [facility] Last Admin: 11/11/22 05:36 Dose: 20 mg Ondansetron HCl (Ondansetron Hcl 4 Mg/2 Ml Vial) 4 mg IVPUSH Q8H PRN PRN Reason: Nausea and Vomiting Pharmacy Consult (Consult Rx Perform Med Rec) 1 each MISCELLANE ONCE PRN PRN Reason: Consult order Prednisone (Prednisone 5 Mg Tablet) 5 mg PO DAILY [facility] Last Admin: 11/11/22 09:08 Dose: 5 mg Sodium Chloride (0.9 % Sodium Chloride Flush 3 Ml Syringe) 3 ml IVFLUSH QSHIFT [facility] Last Admin: 11/11/22 09:08 Dose: 3 ml Sodium Chloride (Sodium Chloride 0.65 % Nasal 44 Ml Sprbtl) 1 spray NOSTRIL-B Q1H PRN PRN Reason: Dryness Last Admin: 11/10/22 21:27 Dose: 1 spray Thiamine HCl (Thiamine Hcl 100 Mg Tablet) 100 mg PO BID [facility] Last Admin: 11/11/22 09:09 Dose: 100 mg Tobramycin Sulfate (Tobramycin Sulfate 80 Mg/2 Ml Vial) 300 mg INHALE Q12H [facility] Last Admin: 11/11/22 08:01 Dose: 300 mg Home Medications Medication Instructions Recorded Confirmed Last Taken Type docusate sodium 100 mg capsule 100 mg PO BID 03/22/22 11/02/22 10/08/22 History fluticasone propionate 50 1 spray intranasal BID 03/22/22 11/02/22 10/08/22 History mcg/actuation nasal spray,suspension montelukast 10 mg tablet 10 mg PO BEDTIME 03/22/22 11/02/22 10/08/22 History nebulizers 03/22/22 07/04/22 Unknown History nitroglycerin 0.3 mg sublingual 0.3 mg sublingual Q5M PRN Chest 03/22/22 11/02/22 10/08/22 History tablet Pain oxybutynin chloride 5 mg 5 mg PO DAILY 03/22/22 11/02/22 10/08/22 History tablet,extended release 24 hr tramadol 50 mg tablet 25 mg PO BID 03/22/22 11/02/22 10/08/22 History umeclidinium 62.5 mcg-vilanterol 1 ea inhalation DAILY 05/24/22 11/02/22 10/08/22 History 25 mcg/actuation powdr for inhalation (Anoro Ellipta) albuterol sulfate 90 mcg/actuation 2 puff inhalation Q4-6H PRN 11/02/22 11/02/22 Unknown History aerosol inhaler (Ventolin HFA) Shortness Of Breath Or Wheezing aspirin 81 mg tablet,delayed 81 mg PO DAILY 11/02/22 11/02/22 Unknown History release isosorbide mononitrate 30 mg 30 mg PO DAILY 11/02/22 11/02/22 Unknown History tablet,extended release 24 hr levalbuterol HCl 1.25 mg/3 mL 1.25 mg inhalation TID 11/02/22 11/02/22 11/02/22 History solution for nebulization multivitamin 1 tab PO DAILY 11/02/22 11/02/22 Unknown History pantoprazole 40 mg tablet,delayed 40 mg PO BID 11/02/22 11/02/22 Unknown History release thiamine HCl (vitamin B1) 100 mg 100 mg PO BID 11/02/22 11/02/22 Unknown History tablet torsemide 20 mg tablet 40 mg PO DAILY 11/02/22 11/02/22 Unknown History Physical Exam Vital Signs: Vital Signs: Last Vital Signs Temp 96.9 F 11/11/22 08:00 Pulse 89 11/11/22 08:05 Resp 18 11/11/22 08:05 BP 149/65 H 11/11/22 08:00 Pulse Ox 97 11/11/22 08:00 O2 Del Method Room Air 11/11/22 08:00 O2 Flow Rate 1.5 11/10/22 08:00 BMI result Body Mass Index 24.4 Const: General: alert, awake and ill appearing Nutritional Appearance: underweight and other (Frail elderly woman) Orientation/consciousness: patient oriented x3 HEENT: Head: Yes normocephalic and Yes atraumatic Neck: Neck: Yes trachea midline, Yes supple and Yes no JVD Resp: Effort & Inspection: decreased respiratory effort Auscultation: no rales, no wheezes and diminished lung sounds Cardio: Jugular venous distension: no JVD Rhythm: abnormal rhythm irregularly irregular Heart sounds: S1 normal heart sound present, S2 normal heart sound present, no click, no gallops and no murmurs GI: Auscultation: normal bowel sounds Skin: General skin exam: no rashes or lesions noted and ecchymosis Neuro: General: patient oriented x3 and no focal motor deficits Objective Labs and Meds 11/07/22 08:14 11/10/22 12:25 Lab results: Laboratory Results - last 24 hr 11/02/22 11/10/22 16:51 12:25 Sodium 137 Potassium 4.0 Chloride 96 Carbon Dioxide 28 Anion Gap 17 BUN 24 H Creatinine 1.02 Estim Creat Clear Calc 32.9 Estimated GFR 52 Random Glucose 171 H Calcium 9.1 Magnesium 1.7 Ur L.pneumophila Ag Not Detected Ur Strep pneumoniae Ag Not Detected Assessment and Plan (1) Atrial flutter: Status: Acute Atrial flutter with LV systolic dysfunction. Rate is controlled on dual therapy with metoprolol and digoxin. Continue the same. No change in therapy is recommended at this point in time. Follow-up digoxin assay in 1 weeks time. Should consider starting oral anticoagulation therapy with Eliquis, 2.5 mg b.i.d. there are no other obvious clinical contraindications. If started on oral anticoagulation discontinue aspirin therapy. (2) Congestive heart failure: Status: Acute Chronic respiratory failure with prior history of congestive heart failure, with cardiomyopathy with moderate LV systolic dysfunction. Clinically does not appear to be in heart failure at this point time. Continue current rate control approach. Possible cardiomyopathy could be ischemic and/or tachycardia mediated. Rate is better controlled as above. Consider losartan/valsartan for neurohormonal modulation. Can hold off on oral diuretic therapy. Watch for signs and symptoms of heart failure. Continue management of her COPD. (3) CAD (coronary artery disease): Status: Acute Severe [place] CAD with patent grafts. There is no indication for isosorbide therapy at this point time. Blood pressure becomes a she this can be discontinued and consider switching to a renin angiotensin antagonist. Continue high-intensity statin therapy. Can switch to oral anticoagulation therapy in place of aspirin. Will sign of the case. Thank you for allowing me to partake in the care Time Spent With Patient Time: Total time managing care of this patient today ____ minutes. Procedures Date of Service Date of Service: 11/11/22
--- NOTE | 2022-11-11 13:59 | P.DS_ITS ---
DS: Providers Provider Date of Service: 11/11/22 Date of admission: 11/02/22 17:12 Date of discharge: 11/11/22 Primary care physician: Monica Arciniega MD Consults: 11/02/22 17:33 Consult to Infectious Diseases Routine Consulting Provider: Jackie Gerardo Reason for consultation: UTi recent VRE culture [facility], hosp acquired pneumonia 11/10/22 11:08 Consult to Cardiology Routine Consulting Provider: [facility] Cardiovascular Services Reason for consultation: rapid afib Has provider been notified: No Attending physician on discharge: Maddy Christiansen Discharging clinician: Katie Guerra DS: Diagnosis Discharge Diagnosis (1) Atrial flutter: Status: Acute (2) Congestive heart failure: Status: Acute (3) CAD (coronary artery disease): Status: Acute DS: Summary Hospital Course Hospital Course: From H&P on day of admission 81-year-old female with COPD, history of pseudomonal pneumonia on inhaled tobramycin, coronary artery disease, paroxysmal atrial fibrillation on asa not currently on anticoagulation, congestive heart failure, VRE UTI, recent SBO s/p incarcerated umbilical hernia repair presented to the ED with her daughter for evaluation of lethargy, abdominal pain, constipation, poor appetite, and making statements about dying and taking the world with her. She was discharged last night from [facility] where she had been transferred after a brief admission at [facility] for NSTEMI. She underwent cardiac cath without stent placement. 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 She was also started on remeron during admissions which patient's daughter feels is the source of her delerium. She denies fevers, chills, sore throat, headaches, nausea, vomiting, diarrhea, dysuria, hematuria, increased urinary frequency lightheadedness, palpitations, sob or chest pain. She is complaining of productive cough confirmed by her daughter. She is only oriented to self and is intermittently confused. On arrival, patient tachycardic to 117, tachypneic to 34, afebrile, no hypotension. No leukocytosis. H/H 9.5/29.5%. PLT 225. Creat 1.50 (baseline 0.96), BUN 29. Lytes nromal except for mild hypercapnia 33 and magnesium 1.5.? AST 37, ALT 32, total bilirubin 2.3, direct bilirubin 0.8, alkaline phosphatase 292, initial troponin 63.7, BNP 597 (pro BNP last measured at >47,000 at [facility]).? Lactic acid 1.8.? Urinalysis significant for 2+ leukocytes, negative nitrites, 2+ blood, positive urinary sediment, and negative bacteria.? His CTs without any acute intracranial abnormality.? CXR shows right lower lobe small infiltrate with bilateral small pleural effusions and mild cardiomegaly.? CT abdomen/pelvis shows small stable cystic lesion in the tail the pancreas was colonic diverticulosis without diverticulitis.? No acute abnormality.? In the ED, treated with 2 g IV magnesium, 1 g cefepime, 2 mg morphine. Severe sepsis- secondary to pneumonia Seen by ID no concern for hospital-acquired pneumonia question aspiration, she recommend doxycycline for total 10 days will transition to by mouth doxy 100 mg b.i.d. to complete course Acute UTI Seen by ID since patient has no fever and has chronic pyuria ,only [id number] CFU Proteus and Enterococcus so not convincing evidence of UTI, therefore no antibiotic recommended Acute kidney injury likely pre renal, resolved with IV fluids renal function remains normal, will hold torsemide and resume lower dose torsemide 20 mg by mouth daily Acute toxic metabolic encephalopathy resolved has no confusion , but have mood swings and anger issues, resume doxazosin, don't think related to any medication Paroxysmal afib HR elevated. was not on rate control. resumed on metoprolol 25 bid. Recommend to call and schedule follow-up appointment with primary services executive. on aspirin currently not on anticoagulation due to recent episode of hemorrhagic bullae and heparin-induced thrombocytopenia, spoke with daughter and informed to discuss with PCP regarding resumption of anticoagulation Hypokalemia/low magnesium due to diuretics repleted and improved discussed with daughter, they do not want her to go to rehab therefore PT eval not done. has been done in the past and recommended rehab but family preeferred to take her home in the past as well. She will return home to resume home PT/VNA services. Time Spent with Patient Time attestation: Total time managing care of this patient today ____ minutes. Discharge coordination time: Greater than 30 minutes Quality: Safe Use of Opioids Does Pt have an Active Cancer Diagnosis on the Problem List?: No Quality: Stroke Does the patient have a stroke diagnosis?: No Physical Exam Vital Signs: Vital Signs: Last Vital Signs Temp 96.9 F 11/11/22 08:00 Pulse 89 11/11/22 08:05 Resp 18 11/11/22 08:05 BP 149/65 H 11/11/22 08:00 Pulse Ox 97 11/11/22 08:00 O2 Del Method Room Air 11/11/22 08:00 O2 Flow Rate 1.5 11/10/22 08:00 BMI result Body Mass Index 24.4 Const: General: cooperative, comfortable, no acute distress, alert and awake Nutritional Appearance: average body habitus Resp: Effort & Inspection: normal respiratory effort, able to speak in complete sentences, no respiratory distress and no use of accessory muscles GI: Inspection: No distended Palpation (GI): Soft to palpation and nontender Skin: Other: bruising b/l hands Neuro: Other: grossly nonfocal General: moves all extremities DS: Data Data Completed and Pending Completed studies during hospitalization [Text1]: Procedures Supplement Abdominal Wall with Synthetic Substitute, Open Approach (09/17/22) Transfusion of Nonautologous Red Blood Cells into Peripheral Vein, Percutaneous Approach (04/06/22) Labs on day of discharge: Laboratory Results - last 24 hr 11/02/22 16:51 Ur L.pneumophila Ag Not Detected Ur Strep pneumoniae Ag Not Detected Discharge Plan Discharge Anticipated Discharge Date/Time: 11/11/22 13:48 Patient Disposition: Home Health Service Discharge Diagnosis: AFib RVR/aflutter HFrEF sepsis secondary to pneumonia CANDIDO low magnesium Referrals: Monica Arciniega MD [Primary Care Provider] - 1 Week Discharge Medications: New doxycycline monohydrate 100 mg Capsule 100 mg PO Q12H Qty: 8 0RF metoprolol tartrate 25 mg Tablet 25 mg PO BID 30 Days Qty: 60 0RF Protocol: Hold for SBP/HR < HOLD for SBP < : 90 HOLD for HR < : 60 Continued tobramycin in 0.225 % NaCl [John] 300 mg/5 mL solution for nebulization 300 mg inhalation BID 28 Days Qty: 280 6RF Rx Instructions: Take for 28 days as prescribed and then 28 days off ferrous sulfate 325 mg (65 mg iron) tablet 325 mg PO DAILY 0RF (DME) Aerochamber MV Spacer See Rx Instructions .ROUTE .MEDSUPPLY Qty: 1 0RF Rx Instructions: As directed Anoro Ellipta 62.5-25 mcg/actuation blister with device 1 ea inhalation DAILY multivitamin Tablet 1 tab PO DAILY isosorbide mononitrate 30 mg tablet extended release 24 hr 30 mg PO DAILY thiamine HCl (vitamin B1) 100 mg tablet 100 mg PO BID aspirin 81 mg tablet,delayed release (DR/EC) 81 mg PO DAILY pantoprazole 40 mg tablet,delayed release (DR/EC) 40 mg PO BID albuterol sulfate [Ventolin HFA] 90 mcg/actuation HFA aerosol inhaler 2 puff INHALATION Q4-6H PRN (Reason: Shortness Of Breath Or Wheezing) levalbuterol HCl 1.25 mg/3 mL solution for nebulization 1.25 mg inhalation TID atorvastatin [Lipitor] 40 mg tablet 40 mg PO BEDTIME Qty: 30 0RF docusate sodium 100 mg capsule 100 mg PO BID fluticasone propionate 50 mcg/actuation spray,suspension 1 spray intranasal BID montelukast 10 mg tablet 10 mg PO BEDTIME nitroglycerin 0.3 mg tablet, sublingual 0.3 mg sublingual Q5M PRN (Reason: Chest Pain) oxybutynin chloride 5 mg tablet extended release 24hr 5 mg PO DAILY tramadol 50 mg tablet 25 mg PO BID (DME) nebulizers Kit See Rx Instructions .ROUTE Rx Instructions: As directed prednisone 5 mg tablet 5 mg PO DAILY 30 Days Qty: 30 4RF Changed torsemide 20 mg tablet 20 mg PO DAILY Qty: 30 0RF Discharge Orders: Discharge Order (Routine); Ordered 11/11/22 Ordered By: Katie Guerra Diet: Advance to usual diet Activity on Discharge: As tolerated Stand Alone Forms: Patient Portal Discharge page Care Plan Goals: Dose of torsemide reduced to 20 mg by mouth daily start taking metoprolol 25 mg twice daily as prescribed Continue all home medication as above Take doxycycline 1 tablet twice daily for 4 more days Use lozenges for sore throat/saltwater gargles call to schedule follow up with cardiology - discuss need to continue AC call to schedule follow up with PCP Health Concerns: As above Plan of Treatment: Outpatient follow-up with primary care physician, resume anticoagulation as per PCP and Cardiology Assessment: As above
--- NOTE | 2022-11-11 14:10 | MHC.CM.PN ---
Addendum entered by Radha Archuleta 11/11/22 14:22: [facility] UPDATED ON TODAY'S DC Original Note: DP: PT HAS BEEN MEDICALLY CLEARED FOR DC HOME WITH RESUMPTION OF [facility] SERVICES. RM AWARE. DAUGHTER FRANCE UPDATED. BLS TRANSPORT BOOKED FOR 4:45 PM VIA [employer] IMM DELIVERED, WHITE COPY TO BE MAILED, YELLOW COPY TO CHART
[2022-11-11 15:42] VITALS: BP 164/77; PULSE 69; RESP 20; TEMP 36.6; O2SAT 95
== END 2022-11-11 16:58 | disposition home health service (06) | DRG 871 ==
LOC: HO.ED 16:10 → HO.EDOVER 17:35 → HO.S3 18:47
PROVIDERS: Hospitalist; Admitting Provider Physician Assistant; Emergency Provider Emergency Medicine; PCP Internal Medicine; Visit Provider Physician Assistant Medical
DX: A41.9 Sepsis, unspecified organism (principal); G92.8 Other toxic encephalopathy; I21.4 Non-ST elevation (NSTEMI) myocardial infarction; J69.0 Pneumonitis due to inhalation of food and vomit; N17.9 Acute kidney failure, unspecified; I50.22 Chronic systolic (congestive) heart failure; I48.92 Unspecified atrial flutter; I25.10 Atherosclerotic heart disease of native coronary artery without angina pectoris; I48.0 Paroxysmal atrial fibrillation; E87.6 Hypokalemia; T50.2X5A Adverse effect of carbonic-anhydrase inhibitors, benzothiadiazides and other diuretics, initial encounter; E83.42 Hypomagnesemia; K59.09 Other constipation; R65.20 Severe sepsis without septic shock; Z79.2 Long term (current) use of antibiotics; Z79.51 Long term (current) use of inhaled steroids; Z79.52 Long term (current) use of systemic steroids; Z79.82 Long term (current) use of aspirin; Z79.899 Other long term (current) drug therapy
CPT/HCPCS: 36415; 70450; 71045; 74176; 80048; 80053; 80076; 81001; 83605; 83690; 83735; 83880; 84484; 85025; 85610; 87040; 87086; 87088; 87186; 87449; 87899; 92526; 92610; 93005; 99285; J0692; J1160; J2020; J2270; J3260; J3475

== ENCOUNTER 2022-12-15 20:54 | Inpatient (IN) | payer OTHER, SELFPAY ==
--- NOTE | ~2022-12-15 | XR_ITS ---
EXAMINATION: XR CHEST CLINICAL INFORMATION: Tachypnea COMPARISON: AP upright portable chest 12/16/2022 TECHNIQUE: AP upright portable view of the chest was obtained. FINDINGS: The patient is rotated on the AP view. The patient is status post median sternotomy for CABG surgery. There is interval increase in the right pleural effusion which is now moderate. Stable small left pleural effusion. Again noted is pulmonary venous congestion without overt edema. Streaky opacity at the left lung base likely represents atelectasis, less likely pneumonia. Stable cardiomegaly. No pneumothorax. Marked degenerative change of the right shoulder. XR/XR chest 1V IMPRESSION: Interval increase in right pleural effusion. Due to the patient's rotation and the increase in right pleural effusion, previously noted opacity at the right lung base is obscured. Probable left basilar atelectasis.
[2022-12-15 21:08] VITALS: BP 123/65; PULSE 67; RESP 16; TEMP 36.8; O2SAT 96; BMI 25.2
--- NOTE | 2022-12-15 21:15 | ED.GENADULT ---
HPI - General Adult General Chief complaint: General Medical Stated complaint: ams Time Seen by Provider: 12/15/22 21:13 Source: patient and family Mode of arrival: EMS Limitations: no limitations History of Present Illness HPI narrative: Patient history of dementia with history of frequent UTI last one was in 11/01 with Proteus mirabilis and Enterococcus faecalis resistant to vancomycin was admitted and discharged after antibiotic course was feeling much better for last 5 days patient is more confused combative and agitated no fever no vomiting no abdominal pain no flank pain patient was seen by nile MD 5 days ago at home started on Ceftin for questionable UTI patient is still not feeling same as before patient also complaining of mild headache off and on Related Data Home Medications Medication Instructions Recorded Confirmed docusate sodium 100 mg capsule 100 mg PO BID 03/22/22 11/02/22 fluticasone propionate 50 1 spray intranasal BID 03/22/22 11/02/22 mcg/actuation nasal spray,suspension montelukast 10 mg tablet 10 mg PO BEDTIME 03/22/22 11/02/22 nebulizers 03/22/22 07/04/22 nitroglycerin 0.3 mg sublingual 0.3 mg sublingual Q5M PRN Chest 03/22/22 11/02/22 tablet Pain oxybutynin chloride 5 mg 5 mg PO DAILY 03/22/22 11/02/22 tablet,extended release 24 hr tramadol 50 mg tablet 25 mg PO BID 03/22/22 11/02/22 umeclidinium 62.5 mcg-vilanterol 1 ea inhalation DAILY 05/24/22 11/02/22 25 mcg/actuation powdr for inhalation (Anoro Ellipta) albuterol sulfate 90 mcg/actuation 2 puff inhalation Q4-6H PRN 11/02/22 11/02/22 aerosol inhaler (Ventolin HFA) Shortness Of Breath Or Wheezing aspirin 81 mg tablet,delayed 81 mg PO DAILY 11/02/22 11/02/22 release isosorbide mononitrate 30 mg 30 mg PO DAILY 11/02/22 11/02/22 tablet,extended release 24 hr levalbuterol HCl 1.25 mg/3 mL 1.25 mg inhalation TID 11/02/22 11/02/22 solution for nebulization multivitamin 1 tab PO DAILY 11/02/22 11/02/22 pantoprazole 40 mg tablet,delayed 40 mg PO BID 11/02/22 11/02/22 release thiamine HCl (vitamin B1) 100 mg 100 mg PO BID 11/02/22 11/02/22 tablet Previous Rx's Medication Instructions Recorded tobramycin 300 mg/5 mL in 0.225 % 300 mg (5 mL) inhalation BID 28 03/25/22 sodium chloride for nebulization days #280 mL (John) ferrous sulfate 325 mg (65 mg 325 mg PO DAILY 09/28/22 iron) tablet prednisone 5 mg tablet 5 mg PO DAILY 30 days #30 tabs 10/03/22 inhalational spacing device #1 ea 10/07/22 (Aerochamber MV spacer) atorvastatin 40 mg tablet (Lipitor) 40 mg PO BEDTIME #30 tabs 10/10/22 doxycycline monohydrate 100 mg 100 mg PO Q12H #8 caps 11/09/22 capsule torsemide 20 mg tablet 20 mg PO DAILY #30 tabs 11/09/22 metoprolol tartrate 25 mg tablet 25 mg PO BID 30 days #60 tabs 11/11/22 Allergies Allergy/AdvReac Type Severity Reaction Status Date / Time carvedilol Allergy Shortness Verified 10/04/22 14:13 of Breath sertraline [From Zoloft] Allergy Shortness Verified 10/04/22 14:13 of Breath spironolactone Allergy Shortness Verified 10/04/22 14:13 of Breath Review of Systems Review of Systems: Yes all other systems are reviewed and are negative PMFSH Past Medical History Medical History A-fib Acute encephalopathy Acute hypokalemia Acute respiratory failure with hypoxia Anemia Anemia Aspiration pneumonia Atelectasis of right lung Atrial fibrillation with RVR Atrial flutter Bronchiectasis CAD (coronary artery disease) Chronic dyspnea Congestive heart failure COPD (chronic obstructive pulmonary disease) COPD (chronic obstructive pulmonary disease) Dyspnea Encephalopathy chronic GI bleed Heart failure History of infection with vancomycin resistant Enterococcus (VRE) Paroxysmal A-fib Pseudomonal pneumonia Pseudomonas respiratory infection Pulmonary nodules Pyuria Surgical History H/O umbilical hernia repair (09/18/22) History of cholecystectomy History of hip replacement History of knee replacement History of quadruple bypass Family History Family History Other No family history of cancer Social History Social History Household Members: Family Housing: House Are you a primary menagerie caretaker to a significant other at home: No Do you presently have visiting nurse or other home services: Yes Alcohol intake: never Patient Tobacco Use Status: Never used Tobacco Tobacco use type: Cigarette Smoked in Last 30 Days: No Use of substances other than those prescribed or required for medical reasons: No Advance Directives: Yes Advance Directives on File: Yes Advance Directives Date on File: 08/24/22 service: No Current occupational status: retired Physical Exam ED Vital Signs: Vital Signs - 24 hr 12/15/22 21:08 12/16/22 00:40 12/16/22 00:52 Temperature 98.2 F Pulse Rate 67 68 91 Respiratory Rate 16 19 16 Blood Pressure 123/65 137/82 Pulse Oximetry 96 96 Oxygen Delivery Method Room Air Room Air Oxygen Flow Rate 12/16/22 01:51 12/16/22 01:28 12/16/22 01:43 Temperature 98.3 F Pulse Rate 92 92 92 Respiratory Rate 16 16 15 Blood Pressure 115/60 115/60 Pulse Oximetry 97 Oxygen Delivery Method Room Air Oxygen Flow Rate 12/16/22 01:58 12/16/22 02:13 12/16/22 02:28 Temperature Pulse Rate 72 72 78 Respiratory Rate 17 21 H 16 Blood Pressure 143/50 H Pulse Oximetry 97 Oxygen Delivery Method Room Air Oxygen Flow Rate 12/16/22 03:38 Temperature 97.6 F Pulse Rate 88 Respiratory Rate 23 H Blood Pressure 182/74 H Pulse Oximetry 100 Oxygen Delivery Method Nasal Cannula Oxygen Flow Rate 2 BMI result Body Mass Index 25.2 Appearance: Alert. Oriented X2 with confusion. No acute distress. Anger outburst in between Eyes: PERRLA, No Nystagmus ENT: Pharynx normal. Oral Mucosa moist Neck: Normal inspection. Neck supple. CVS: Normal heart rate and irregular rhythm. Pulses normal. Respiratory: No respiratory distress. Equal air entry bilateral, no wheezing/rales/rhonchi Abdomen: Soft and nontender. Bowel sounds are present, no mass palpable, no CVA tenderness Skin: Skin warm and dry. Normal skin color. Normal skin turgor. Extremities: No lower extremity edema. No calf tenderness Neuro: Oriented X 2. No motor deficit. No sensory deficit.No cerebellar signs , cranial nerves II-XII intact Medications Administered Generic Name Dose Route Start Last Admin Trade Name Gato PRN Reason Stop Dose Admin Potassium Chloride 10 meq in 100 mls @ 100 mls/hr 12/16/22 01:30 12/16/22 03:52 Potassium Chloride/H20 IV 12/16/22 05:29 100 mls/hr Q1H ANIBAL Administration Discontinued Medications Generic Name Dose Route Start Last Admin Trade Name Gato PRN Reason Stop Dose Admin Sodium Chloride 1,000 mls @ 999 mls/hr 12/16/22 00:44 12/16/22 03:30 Ns IV 12/16/22 01:44 Infused .Q1H1M ONE Infusion Meropenem 1 gm/ Sodium 100 mls @ 200 mls/hr 12/16/22 00:44 12/16/22 02:45 Chloride IV 12/16/22 01:13 Infused ONCE ONE Infusion Potassium Chloride 10 meq in 100 mls @ 100 mls/hr 12/16/22 01:00 12/16/22 03:46 Potassium Chloride/H20 IV 12/16/22 02:59 Not Given Q1H ANIBAL Lorazepam 1 mg 12/16/22 01:18 12/16/22 01:28 Lorazepam 2 Mg/Ml Vial IM 12/16/22 01:19 1 mg ONCE ONE Administration Medical Decision Making Medical Decision Making [facility] Narrative: Patient with altered mental status/increased confusion>> metabolic encephalopathy from UTI previous urine culture showed me for Proteus mirabilis resistant to most oral antibiotics and VRE will start patient on vancomycin and ertapenem patient received IV fluids. Also patient potassium of 2.7 which we will replace Differential Diagnosis Differential Diagnoses: The differential diagnosis associated with the presentation includes Metabolic encephalopathy/anxiety/UTI/sepsis/pneumonia Consult Healthcare Provider Management of the patient was discussed with: Hospitalist Lab Data [facility] Lab Attestation statement: I reviewed the patient's lab results. 12/16/22 00:21 12/16/22 00:21 Labs: Lab Results 12/16/22 12/16/22 12/16/22 Range/Units 00:21 00:21 00:21 WBC 8.3 (4.8-10.8) X10*3/uL RBC 3.02 L (4.20-5.50) X10*6/uL Hgb 9.5 L (12.0-16.0) g/dl Hct 28.5 L (37.0-47.0) % MCV 94.4 (80.0-98.0) fL MCH 31.5 (27.0-33.0) pg MCHC 33.3 (31.0-35.0) g/dl RDW 15.9 (11.0-16.0) % Plt Count 194 (160-400) X10*3/uL MPV 11.2 (9.4-12.3) fL Absolute Nucleated RBC 0.000 (0.0-0.012) X10*3/uL Nucleated RBC % (auto) 0.0 (0.0-0.2) /100WBC Sodium 141 (135-145) mmol/L Potassium 2.7 L D (3.3-5.1) mmol/L Chloride 98 (96-108) mmol/L Carbon Dioxide 29 (22-29) mmol/L Anion Gap 17 (12-20) BUN 21 H (9-16) mg/dL Creatinine 1.09 (0.5-1.4) mg/dL Estim Creat Clear Calc 33.4 Estimated GFR 48 Random Glucose 151 H (60-115) mg/dL Lactic Acid 2.6 H* (0.5-2.0) mmol/L Lactic Acid F/U @ 2Hr (0.5-2.0) mmol/L Calcium 8.6 (8.4-10.2) mg/dL Total Bilirubin 0.8 (0.0-1.0) mg/dL AST 43 H (5-31) U/L ALT 39 H (0-31) U/L Alkaline Phosphatase 142 H (39-117) U/L Total Protein 5.8 L (6.5-8.0) g/dL Albumin 2.8 L (3.5-5.0) g/dL Urine Color Urine Appearance Urine pH (5.0-9.0) Ur Specific [place] (1.005-1.025) Urine Protein (Neg-Trace) mg/dL Urine Glucose (UA) (Negative) mg/dL Urine Ketones (Negative) mg/dL Urine Blood (Negative) Urine Nitrite (Negative) Ur Leukocyte Esterase (Negative) Urine RBC (0-2) /HPF Urine WBC (0-5) /HPF Ur Squamous Epith Cells (0-2) /HPF Urine Bacteria (None Seen) Hyaline Casts (0-2) /LPF 12/16/22 12/16/22 Range/Units 02:48 03:23 WBC (4.8-10.8) X10*3/uL RBC (4.20-5.50) X10*6/uL Hgb (12.0-16.0) g/dl Hct (37.0-47.0) % MCV (80.0-98.0) fL MCH (27.0-33.0) pg MCHC (31.0-35.0) g/dl RDW (11.0-16.0) % Plt Count (160-400) X10*3/uL MPV (9.4-12.3) fL Absolute Nucleated RBC (0.0-0.012) X10*3/uL Nucleated RBC % (auto) (0.0-0.2) /100WBC Sodium (135-145) mmol/L Potassium (3.3-5.1) mmol/L Chloride (96-108) mmol/L Carbon Dioxide (22-29) mmol/L Anion Gap (12-20) BUN (9-16) mg/dL Creatinine (0.5-1.4) mg/dL Estim Creat Clear Calc Estimated GFR Random Glucose (60-115) mg/dL Lactic Acid (0.5-2.0) mmol/L Lactic Acid F/U @ 2Hr 2.3 H* (0.5-2.0) mmol/L Calcium (8.4-10.2) mg/dL Total Bilirubin (0.0-1.0) mg/dL AST (5-31) U/L ALT (0-31) U/L Alkaline Phosphatase (39-117) U/L Total Protein (6.5-8.0) g/dL Albumin (3.5-5.0) g/dL Urine Color Yellow Urine Appearance Cloudy Urine pH 7.0 (5.0-9.0) Ur Specific [place] <= 1.005 (1.005-1.025) Urine Protein Negative (Neg-Trace) mg/dL Urine Glucose (UA) Negative (Negative) mg/dL Urine Ketones Negative (Negative) mg/dL Urine Blood Small (1+) H (Negative) Urine Nitrite Negative (Negative) Ur Leukocyte Esterase Large (3+) H (Negative) Urine RBC 3-5 H (0-2) /HPF Urine WBC >50 H (0-5) /HPF Ur Squamous Epith Cells 0-2 (0-2) /HPF Urine Bacteria 4+ (None Seen) Hyaline Casts 3-5 (0-2) /LPF Independent Interpretation I performed an independent interpretation of an: EKG Interpretation: Atrial flutter with ventricular rate of 68 beats per minute nonspecific STT wave changes in inferior leads nonspecific T inversion in anterior leads no acute ischemic changes Discharge Plan Discharge Clinical Impression: Acute metabolic encephalopathy, Sepsis due to gram-negative UTI, Acute hypokalemia, Acute alteration in mental status Patient Disposition: Admitted As Inpatient
--- NOTE | 2022-12-15 21:22 | PC.NURSE ---
Triage pt, notified JAVAN Edwards.
--- NOTE | 2022-12-15 21:34 | MHC.EDTECH ---
pt refused EKG and labs. pt began hitting t/w. unable to redirect. tamir mcgrath and md bearden aware.
--- NOTE | 2022-12-15 23:00 | PC.NURSE ---
news editor informed this rn that pt was refusing blood work. this rn attempted to discuss plan further with pt. upon discussing importance of obtaining blood work. pt at this time was verbally aggressive with this rn yelling at this rn to get out of room. this rn made chargemaster specialist and dr montgomery aware . dr montgomery called pt daughter to ask for daughter to come in the ed for assistance in obtaining appropriate testing. daughter states will come in
--- NOTE | 2022-12-15 23:07 | MHC.EDTECH ---
pt refused blood work from this pct. oma pct attempted labs, pt became combative and agitated. pt yelled to stop blood draw. tamir mcgrath and md bearden aware
[2022-12-16] VITALS (22 sets, daily range): BP systolic 81–226; BP diastolic 50–87; PULSE 68–131; RESP 15–44; TEMP 35.9–36.8; O2SAT 93–100
[2022-12-16 00:27] LABS: Hematocrit 28.5 % (37.0-47.0); Hemoglobin 9.5 g/dl (12.0-16.0); Mean Corpuscular HGB Conc 33.3 g/dl (31.0-35.0); Mean Corpuscular Hemoglobin 31.5 pg (27.0-33.0); Mean Corpuscular Volume 94.4 fL (80.0-98.0); Mean Platelet Volume 11.2 fL (9.4-12.3); Platelet Count 194 X10*3/uL (160-400); Red Blood Count 3.02 X10*6/uL (4.20-5.50); Red Cell Distribution Width 15.9 % (11.0-16.0); White Blood Count 8.3 X10*3/uL (4.8-10.8)
--- NOTE | 2022-12-16 00:37 | PC.NURSE ---
pt daughter to bedside. this rn and editorial assistant to bedside to attempt to obtain blood work at this time. at which time pt began yelling at this rn to get out. pt daughter at bedside at this time. this rn made nurse charge rn, clinical coordinator, and dr montgomery aware. additional editorial assistant sent to bedside to assist in obtaining blood work
--- NOTE | 2022-12-16 00:43 | MHC.EDTECH ---
t/w cleaned pt, replaced linens, and placed a purewick. pt still labile, explosive. rn aware
[2022-12-16 00:47] LABS: Alanine Aminotransferase 39 U/L (0-31); Albumin Level 2.8 g/dL (3.5-5.0); Alkaline Phosphatase 142 U/L (39-117); Anion Gap 17 (12-20); Aspartate Amino Transferase 43 U/L (5-31); Bilirubin Total 0.8 mg/dL (0.0-1.0); Blood Urea Nitrogen 21 mg/dL (9-16); Calcium 8.6 mg/dL (8.4-10.2); Carbon Dioxide 29 mmol/L (22-29); Chloride 98 mmol/L (96-108); Creatinine Clr Calc Pharmacy 33.4; Estimated Glomerular Filt Rate 48; Glucose Random 151 mg/dL (60-115); Potassium 2.7 mmol/L (3.3-5.1); Sodium 141 mmol/L (135-145); Total Protein 5.8 g/dL (6.5-8.0)
--- NOTE | 2022-12-16 01:00 | PC.NURSE ---
dr montgomery made aware of LA 2.6 drawn at 0021. sepsis protocol not called by . rn discharge and clinical coordinator made aware. this rn began attempt in placing iv
--- NOTE | 2022-12-16 01:54 | MHC.EDTECH ---
PATIENT WAS INCONIENT OF MEDIUM BOWEL MOVEMENT ,CARE GIVEN ,BEDDING CHANGE ,2ND SETS OF BLOOD CULTURE DRAWN AND SENT TO LAB .
--- NOTE | 2022-12-16 02:00 | PC.NURSE ---
pt verbally abusive, agitated, and scratching staff memebers. while attempting blood work and seco
[2022-12-16 02:24] LABS: Reflex Lactate? Lactic Acid Added
--- NOTE | 2022-12-16 02:45 | PC.NURSE ---
this rn able to medicate pt according to mar. pt positioned on right side. sleeping rise and fall of chest noted spo2 97% RA
[2022-12-16 02:53] LABS: Appearance Urine Cloudy; Color Urine Yellow; Glucose Urine UA Negative (Negative); Leukocyte Esterase Urine Large (3+) (Negative); Nitrite Urine Negative (Negative); Specific Gravity - Urine <= 1.005 (1.005-1.025); UMIC TRIGGER UACC YES; Urine Blood Small (1+) (Negative); Urine Ketones Negative (Negative); Urine Protein Negative (Neg-Trace)
[2022-12-16 03:31] LABS: Bacteria Urine 4+ (None Seen); Squamous Epithelial Cell Urine 0-2 /HPF (0-2); UACC Culture Trigger YES; WBC Urine >50 /HPF (0-5)
--- NOTE | 2022-12-16 03:40 | PC.NURSE ---
Addendum entered by Grace Lange 12/16/22 07:16: late entry- this rn made dr loja aware of crackles in left lung base. per md order placed for chest xray dr loja made aware when chest xray had been read. no new orders placed by md Original Note: this rn made dr loja aware of pt desat to 84% RA. pt placed on [address] loja. pt @ 100% on 2LPM.
--- NOTE | 2022-12-16 03:41 | MHC.EDTECH ---
Assumed care of this patient at 0300. Patient had outstanding lactic lab (from 223) to be drawn and patient found to be incontinent of urine, despite having a purewick in place. This tech had help from another tech (Cindy) to obtain lab as patient was agitated and moving her arms. This tech and RN (Grace) removed soiled underpads from patient and put on a clean hospital gown. New purewick placed. Patient was repositioned and head of bed elevated. Vital signs taken and RN aware.
[2022-12-16 03:51] LABS: ~Lactic Acid-LAB USE ONLY 2.3 mmol/L (0.5-2.0)
--- NOTE | 2022-12-16 05:11 | PC.NURSE ---
Addendum entered by Grace Lange 12/16/22 05:16: late entry- pt medicated im @ 0128 Original Note: pt verbally abusive, agitated, and scratching staff members. pt medicated according to mar with 1mg im ativan to assist with compliance of m,edical care. while attempting blood work and iv placement. this rn attempted and failed placement twice.dr valentina john fanny aware. ross furnace operator attempted and failed placement twice. md made aware and this rn asked for assistance in placement. additional rn failed placement.md made aware and this rn asked for assistance in placement . clinical coordinator placed 22g in L hand.
[2022-12-16 05:25] LABS: Reflex Lactate? 2 Y
--- NOTE | 2022-12-16 05:30 | ED.GENADULT ---
HPI - General Adult General Chief complaint: General Medical Stated complaint: ams Time Seen by Provider: 12/15/22 21:13 Source: patient and family Mode of arrival: EMS Limitations: no limitations Related Data Home Medications Medication Instructions Recorded Confirmed docusate sodium 100 mg capsule 100 mg PO BID 03/22/22 11/02/22 fluticasone propionate 50 1 spray intranasal BID 03/22/22 11/02/22 mcg/actuation nasal spray,suspension montelukast 10 mg tablet 10 mg PO BEDTIME 03/22/22 11/02/22 nebulizers 03/22/22 07/04/22 nitroglycerin 0.3 mg sublingual 0.3 mg sublingual Q5M PRN Chest 03/22/22 11/02/22 tablet Pain oxybutynin chloride 5 mg 5 mg PO DAILY 03/22/22 11/02/22 tablet,extended release 24 hr tramadol 50 mg tablet 25 mg PO BID 03/22/22 11/02/22 umeclidinium 62.5 mcg-vilanterol 1 ea inhalation DAILY 05/24/22 11/02/22 25 mcg/actuation powdr for inhalation (Anoro Ellipta) albuterol sulfate 90 mcg/actuation 2 puff inhalation Q4-6H PRN 11/02/22 11/02/22 aerosol inhaler (Ventolin HFA) Shortness Of Breath Or Wheezing aspirin 81 mg tablet,delayed 81 mg PO DAILY 11/02/22 11/02/22 release isosorbide mononitrate 30 mg 30 mg PO DAILY 11/02/22 11/02/22 tablet,extended release 24 hr levalbuterol HCl 1.25 mg/3 mL 1.25 mg inhalation TID 11/02/22 11/02/22 solution for nebulization multivitamin 1 tab PO DAILY 11/02/22 11/02/22 pantoprazole 40 mg tablet,delayed 40 mg PO BID 11/02/22 11/02/22 release thiamine HCl (vitamin B1) 100 mg 100 mg PO BID 11/02/22 11/02/22 tablet Previous Rx's Medication Instructions Recorded tobramycin 300 mg/5 mL in 0.225 % 300 mg (5 mL) inhalation BID 28 03/25/22 sodium chloride for nebulization days #280 mL (John) ferrous sulfate 325 mg (65 mg 325 mg PO DAILY 09/28/22 iron) tablet prednisone 5 mg tablet 5 mg PO DAILY 30 days #30 tabs 10/03/22 inhalational spacing device #1 ea 10/07/22 (Aerochamber MV spacer) atorvastatin 40 mg tablet (Lipitor) 40 mg PO BEDTIME #30 tabs 10/10/22 doxycycline monohydrate 100 mg 100 mg PO Q12H #8 caps 11/09/22 capsule torsemide 20 mg tablet 20 mg PO DAILY #30 tabs 11/09/22 metoprolol tartrate 25 mg tablet 25 mg PO BID 30 days #60 tabs 11/11/22 Allergies Allergy/AdvReac Type Severity Reaction Status Date / Time carvedilol Allergy Shortness Verified 10/04/22 14:13 of Breath sertraline [From Zoloft] Allergy Shortness Verified 10/04/22 14:13 of Breath spironolactone Allergy Shortness Verified 10/04/22 14:13 of Breath PMFSH Past Medical History Medical History A-fib Acute encephalopathy Acute hypokalemia Acute respiratory failure with hypoxia Anemia Anemia Aspiration pneumonia Atelectasis of right lung Atrial fibrillation with RVR Atrial flutter Bronchiectasis CAD (coronary artery disease) Chronic dyspnea Congestive heart failure COPD (chronic obstructive pulmonary disease) COPD (chronic obstructive pulmonary disease) Dyspnea Encephalopathy chronic GI bleed Heart failure History of infection with vancomycin resistant Enterococcus (VRE) Paroxysmal A-fib Pseudomonal pneumonia Pseudomonas respiratory infection Pulmonary nodules Pyuria Surgical History H/O umbilical hernia repair (09/18/22) History of cholecystectomy History of hip replacement History of knee replacement History of quadruple bypass Family History Family History Other No family history of cancer Social History Social History Household Members: Family Housing: House Are you a primary youth career specialist to a significant other at home: No Do you presently have visiting nurse or other home services: Yes Alcohol intake: never Patient Tobacco Use Status: Never used Tobacco Tobacco use type: Cigarette Smoked in Last 30 Days: No Use of substances other than those prescribed or required for medical reasons: No Advance Directives: Yes Advance Directives on File: Yes Advance Directives Date on File: 08/24/22 service: No Current occupational status: retired Physical Exam ED Vital Signs: Vital Signs - 24 hr 12/15/22 21:08 12/16/22 00:40 12/16/22 00:52 Temperature 98.2 F Pulse Rate 67 68 91 Respiratory Rate 16 19 16 Blood Pressure 123/65 137/82 Pulse Oximetry 96 96 Oxygen Delivery Method Room Air Room Air Oxygen Flow Rate 12/16/22 01:51 12/16/22 01:28 12/16/22 01:43 Temperature 98.3 F Pulse Rate 92 92 92 Respiratory Rate 16 16 15 Blood Pressure 115/60 115/60 Pulse Oximetry 97 Oxygen Delivery Method Room Air Oxygen Flow Rate 12/16/22 01:58 12/16/22 02:13 12/16/22 02:28 Temperature Pulse Rate 72 72 78 Respiratory Rate 17 21 H 16 Blood Pressure 143/50 H Pulse Oximetry 97 Oxygen Delivery Method Room Air Oxygen Flow Rate 12/16/22 03:38 Temperature 97.6 F Pulse Rate 88 Respiratory Rate 23 H Blood Pressure 182/74 H Pulse Oximetry 100 Oxygen Delivery Method Nasal Cannula Oxygen Flow Rate 2 BMI result Body Mass Index 25.2 Medications Administered Discontinued Medications Generic Name Dose Route Start Last Admin Trade Name Freq PRN Reason Stop Dose Admin Sodium Chloride 1,000 mls @ 999 mls/hr 12/16/22 00:44 12/16/22 03:30 Ns IV 12/16/22 01:44 Infused .Q1H1M ONE Infusion Meropenem 1 gm/ Sodium 100 mls @ 200 mls/hr 12/16/22 00:44 12/16/22 02:45 Chloride IV 12/16/22 01:13 Infused ONCE ONE Infusion Potassium Chloride 10 meq in 100 mls @ 100 mls/hr 12/16/22 01:00 12/16/22 03:46 Potassium Chloride/H20 IV 12/16/22 02:59 Not Given Q1H ANIBAL Potassium Chloride 10 meq in 100 mls @ 100 mls/hr 12/16/22 01:30 12/16/22 04:58 Potassium Chloride/H20 IV 12/16/22 05:29 100 mls/hr Q1H ANIBAL Administration Lorazepam 1 mg 12/16/22 01:18 12/16/22 01:28 Lorazepam 2 Mg/Ml Vial IM 12/16/22 01:19 1 mg ONCE ONE Administration Medical Decision Making Lab Data 12/16/22 00:21 12/16/22 00:21 Labs: Lab Results 12/16/22 12/16/22 12/16/22 Range/Units 00:21 00:21 00:21 WBC 8.3 (4.8-10.8) X10*3/uL RBC 3.02 L (4.20-5.50) X10*6/uL Hgb 9.5 L (12.0-16.0) g/dl Hct 28.5 L (37.0-47.0) % MCV 94.4 (80.0-98.0) fL MCH 31.5 (27.0-33.0) pg MCHC 33.3 (31.0-35.0) g/dl RDW 15.9 (11.0-16.0) % Plt Count 194 (160-400) X10*3/uL MPV 11.2 (9.4-12.3) fL Absolute Nucleated RBC 0.000 (0.0-0.012) X10*3/uL Nucleated RBC % (auto) 0.0 (0.0-0.2) /100WBC Sodium 141 (135-145) mmol/L Potassium 2.7 L D (3.3-5.1) mmol/L Chloride 98 (96-108) mmol/L Carbon Dioxide 29 (22-29) mmol/L Anion Gap 17 (12-20) BUN 21 H (9-16) mg/dL Creatinine 1.09 (0.5-1.4) mg/dL Estim Creat Clear Calc 33.4 Estimated GFR 48 Random Glucose 151 H (60-115) mg/dL Lactic Acid 2.6 H* (0.5-2.0) mmol/L Lactic Acid F/U @ 2Hr (0.5-2.0) mmol/L Calcium 8.6 (8.4-10.2) mg/dL Total Bilirubin 0.8 (0.0-1.0) mg/dL AST 43 H (5-31) U/L ALT 39 H (0-31) U/L Alkaline Phosphatase 142 H (39-117) U/L Total Protein 5.8 L (6.5-8.0) g/dL Albumin 2.8 L (3.5-5.0) g/dL Urine Color Urine Appearance Urine pH (5.0-9.0) Ur Specific [place] (1.005-1.025) Urine Protein (Neg-Trace) mg/dL Urine Glucose (UA) (Negative) mg/dL Urine Ketones (Negative) mg/dL Urine Blood (Negative) Urine Nitrite (Negative) Ur Leukocyte Esterase (Negative) Urine RBC (0-2) /HPF Urine WBC (0-5) /HPF Ur Squamous Epith Cells (0-2) /HPF Urine Bacteria (None Seen) Hyaline Casts (0-2) /LPF 12/16/22 12/16/22 Range/Units 02:48 03:23 WBC (4.8-10.8) X10*3/uL RBC (4.20-5.50) X10*6/uL Hgb (12.0-16.0) g/dl Hct (37.0-47.0) % MCV (80.0-98.0) fL MCH (27.0-33.0) pg MCHC (31.0-35.0) g/dl RDW (11.0-16.0) % Plt Count (160-400) X10*3/uL MPV (9.4-12.3) fL Absolute Nucleated RBC (0.0-0.012) X10*3/uL Nucleated RBC % (auto) (0.0-0.2) /100WBC Sodium (135-145) mmol/L Potassium (3.3-5.1) mmol/L Chloride (96-108) mmol/L Carbon Dioxide (22-29) mmol/L Anion Gap (12-20) BUN (9-16) mg/dL Creatinine (0.5-1.4) mg/dL Estim Creat Clear Calc Estimated GFR Random Glucose (60-115) mg/dL Lactic Acid (0.5-2.0) mmol/L Lactic Acid F/U @ 2Hr 2.3 H* (0.5-2.0) mmol/L Calcium (8.4-10.2) mg/dL Total Bilirubin (0.0-1.0) mg/dL AST (5-31) U/L ALT (0-31) U/L Alkaline Phosphatase (39-117) U/L Total Protein (6.5-8.0) g/dL Albumin (3.5-5.0) g/dL Urine Color Yellow Urine Appearance Cloudy Urine pH 7.0 (5.0-9.0) Ur Specific [place] <= 1.005 (1.005-1.025) Urine Protein Negative (Neg-Trace) mg/dL Urine Glucose (UA) Negative (Negative) mg/dL Urine Ketones Negative (Negative) mg/dL Urine Blood Small (1+) H (Negative) Urine Nitrite Negative (Negative) Ur Leukocyte Esterase Large (3+) H (Negative) Urine RBC 3-5 H (0-2) /HPF Urine WBC >50 H (0-5) /HPF Ur Squamous Epith Cells 0-2 (0-2) /HPF Urine Bacteria 4+ (None Seen) Hyaline Casts 3-5 (0-2) /LPF Discharge Plan Discharge Clinical Impression: Acute metabolic encephalopathy, Sepsis due to gram-negative UTI, Acute hypokalemia, Acute alteration in mental status Patient Disposition: Admitted As Inpatient
[2022-12-16 06:02] LABS: ~Lactic Acid-LAB USE ONLY 1.5 mmol/L (0.5-2.0)
--- NOTE | 2022-12-16 06:07 | PC.NURSE ---
pt noted to desat to 82% pt remove NC. pt placed on oximizer. RT called to bedside. ed md to bedside. pt given 20mg iv lasix and breathing treatment. 97% spo2 at this time
--- NOTE | 2022-12-16 06:24 | MHC.EDTECH ---
400ml of urine emptied from suction container. Patient checked and was dry at this time, purewick still in place.
--- NOTE | 2022-12-16 06:27 | PM.IMHP ---
History of Present Illness Date of Service: 12/16/22 Chief Complaint: AMS This is a 82-year-old female with pertinent history of dementia, COPD, CAD, paroxysmal atrial fibrillation not on anticoagulation, congestive heart failure, VRE UTI, mixed hyperlipidemia was sent to the emergency department for evaluation of altered mentation. Patient is a poor historian. History obtained by ER provider and chart review. Patient was sent as she was combative and confused. Patient was initiated on Ceftin for questionable UTI about 4-5 days prior to presentation. Patient states she is feeling unwell. Unable to obtain review of systems. Patient was being treated for UTI in the ER when she developed sudden onset of hypoxemia after an episode of elevated blood pressure. Initiated on Lasix and CPAP by ER provider In the emergency department, urine concerning for UTI Review of Systems Review of Systems: Yes Unobtainable due to mental status PMFSH Medical History A-fib Acute encephalopathy Acute hypokalemia Acute respiratory failure with hypoxia Anemia Anemia Aspiration pneumonia Atelectasis of right lung Atrial fibrillation with RVR Atrial flutter Bronchiectasis CAD (coronary artery disease) Chronic dyspnea Congestive heart failure COPD (chronic obstructive pulmonary disease) COPD (chronic obstructive pulmonary disease) Dyspnea Encephalopathy chronic GI bleed Heart failure History of infection with vancomycin resistant Enterococcus (VRE) Paroxysmal A-fib Pseudomonal pneumonia Pseudomonas respiratory infection Pulmonary nodules Pyuria Family History Other No family history of cancer Surgical History H/O umbilical hernia repair (09/18/22) History of cholecystectomy History of hip replacement History of knee replacement History of quadruple bypass Social History Household Members: Family Housing: House Are you a primary critical care paramedic to a significant other at home: No Do you presently have visiting nurse or other home services: Yes Alcohol intake: never Patient Tobacco Use Status: Never used Tobacco Tobacco use type: Cigarette Smoked in Last 30 Days: No Use of substances other than those prescribed or required for medical reasons: No Advance Directives: Yes Advance Directives on File: Yes Advance Directives Date on File: 08/24/22 service: No Current occupational status: retired Meds Allergies Allergy/AdvReac Type Severity Reaction Status Date / Time carvedilol Allergy Shortness Verified 10/04/22 14:13 of Breath sertraline [From Zoloft] Allergy Shortness Verified 10/04/22 14:13 of Breath spironolactone Allergy Shortness Verified 10/04/22 14:13 of Breath Active Medications: Current Medications Acetaminophen (Acetaminophen 325 Mg Tablet) 650 mg PO Q6H PRN PRN Reason: Pain, Mild (Pain Scale 1-3) Enoxaparin Sodium (Enoxaparin Sodium 40 Mg/0.4 Ml Syringe) 40 mg SUBCUT Q24H ANIBAL Melatonin (Melatonin 3 Mg Tablet) 6 mg PO BEDTIME PRN PRN Reason: Insomnia Ondansetron HCl (Ondansetron Hcl 4 Mg/2 Ml Vial) 4 mg IVPUSH Q8H PRN PRN Reason: Nausea and Vomiting Sodium Chloride (0.9 % Sodium Chloride Flush 3 Ml Syringe) 3 ml IVFLUSH QSHIFT [facility] Home Medications Medication Instructions Recorded Confirmed Last Taken Type docusate sodium 100 mg capsule 100 mg PO BID 03/22/22 11/02/22 10/08/22 History fluticasone propionate 50 1 spray intranasal BID 03/22/22 11/02/22 10/08/22 History mcg/actuation nasal spray,suspension montelukast 10 mg tablet 10 mg PO BEDTIME 03/22/22 11/02/22 10/08/22 History nebulizers 03/22/22 07/04/22 Unknown History nitroglycerin 0.3 mg sublingual 0.3 mg sublingual Q5M PRN Chest 03/22/22 11/02/22 10/08/22 History tablet Pain oxybutynin chloride 5 mg 5 mg PO DAILY 03/22/22 11/02/22 10/08/22 History tablet,extended release 24 hr tramadol 50 mg tablet 25 mg PO BID 03/22/22 11/02/22 10/08/22 History umeclidinium 62.5 mcg-vilanterol 1 ea inhalation DAILY 05/24/22 11/02/22 10/08/22 History 25 mcg/actuation powdr for inhalation (Anoro Ellipta) albuterol sulfate 90 mcg/actuation 2 puff inhalation Q4-6H PRN 11/02/22 11/02/22 Unknown History aerosol inhaler (Ventolin HFA) Shortness Of Breath Or Wheezing aspirin 81 mg tablet,delayed 81 mg PO DAILY 11/02/22 11/02/22 Unknown History release isosorbide mononitrate 30 mg 30 mg PO DAILY 11/02/22 11/02/22 Unknown History tablet,extended release 24 hr levalbuterol HCl 1.25 mg/3 mL 1.25 mg inhalation TID 11/02/22 11/02/22 11/02/22 History solution for nebulization multivitamin 1 tab PO DAILY 11/02/22 11/02/22 Unknown History pantoprazole 40 mg tablet,delayed 40 mg PO BID 11/02/22 11/02/22 Unknown History release thiamine HCl (vitamin B1) 100 mg 100 mg PO BID 11/02/22 11/02/22 Unknown History tablet Physical Exam Vital Signs and Narrative: Vital Signs: Last Vital Signs Temp 97.6 F 12/16/22 03:38 Pulse 89 12/16/22 05:35 Resp 21 H 12/16/22 05:35 BP 137/86 12/16/22 05:30 Pulse Ox 100 12/16/22 05:30 O2 Del Method Oxymask 12/16/22 05:30 O2 Flow Rate 2 12/16/22 05:30 BMI result Body Mass Index 25.2 Elderly female lying in bed in mild distress Neck supple Irregularly irregular rhythm, S1-S2 heard Bilateral crackles Abdomen soft nontender, no guarding, no rigidity Patient is awake, alert and oriented to self, disoriented to place, time and person ; no focal motor deficit Psych: Agitated No pedal edema Results Labs 12/16/22 00:21 12/16/22 00:21 Labs: Laboratory Results - last 24 hr 12/16/22 12/16/22 12/16/22 00:21 00:21 00:21 MCV 94.4 MCH 31.5 MCHC 33.3 RDW 15.9 Plt Count 194 MPV 11.2 Absolute Nucleated RBC 0.000 Nucleated RBC % (auto) 0.0 Anion Gap 17 Estim Creat Clear Calc 33.4 Estimated GFR 48 Random Glucose 151 H Lactic Acid 2.6 H* Lactic Acid F/U @ 2Hr Lactic Acid F/U @ 4Hr Calcium 8.6 Total Bilirubin 0.8 AST 43 H ALT 39 H Alkaline Phosphatase 142 H Total Protein 5.8 L Albumin 2.8 L Urine Color Urine Appearance Urine pH Ur Specific [place] Urine Protein Urine Glucose (UA) Urine Ketones Urine Blood Urine Nitrite Ur Leukocyte Esterase Urine RBC Urine WBC Ur Squamous Epith Cells Urine Bacteria Hyaline Casts 12/16/22 12/16/22 12/16/22 02:48 03:23 05:47 MCV MCH MCHC RDW Plt Count MPV Absolute Nucleated RBC Nucleated RBC % (auto) Anion Gap Estim Creat Clear Calc Estimated GFR Random Glucose Lactic Acid Lactic Acid F/U @ 2Hr 2.3 H* Lactic Acid F/U @ 4Hr 1.5 Calcium Total Bilirubin AST ALT Alkaline Phosphatase Total Protein Albumin Urine Color Yellow Urine Appearance Cloudy Urine pH 7.0 Ur Specific [place] <= 1.005 Urine Protein Negative Urine Glucose (UA) Negative Urine Ketones Negative Urine Blood Small (1+) H Urine Nitrite Negative Ur Leukocyte Esterase Large (3+) H Urine RBC 3-5 H Urine WBC >50 H Ur Squamous Epith Cells 0-2 Urine Bacteria 4+ Hyaline Casts 3-5 Imaging Radiologist's Impressions: Impressions Chest X-Ray 12/16/22 03:47 IMPRESSION: * Small bilateral pleural effusions and accompanying atelectasis. * Streaky opacity at the right lung base may represent atelectasis or infiltrate, though appears similar to prior. Assessment and Plan (1) Acute metabolic encephalopathy: Status: Acute Plan This is a 82-year-old female with pertinent history of dementia, COPD, CAD, paroxysmal atrial fibrillation not on anticoagulation, congestive heart failure, VRE UTI, mixed hyperlipidemia was sent to the emergency department for evaluation of altered mentation. #. Acute metabolic encephalopathy in the setting of acute UTI. Initiating empiric IV antibiotics, renally dosed. Previous urine culture with castelan resistant Proteus and VRE. Consulted ID, appreciate assistance. Follow urine culture #. Acute hypoxemic respiratory failure. Concern for CHF exacerbation likely due to hypertensive emergency. Initiated on IV Lasix and CPAP. Chest CT, BNP and blood gas pending. #. Acute lactic acidosis due to hypoperfusion. Resolved #. Hypokalemia. Repleted #. Hypertensive emergency. IV labetalol p.r.n. #. COPD. Continue home inhaler. DuoNebs p.r.n. #. Paroxysmal atrial fibrillation not on anticoagulation #. Chronic normocytic anemia. Hemoglobin above transfusion threshold Med rec pending DVT prophylaxis: Lovenox NPO until mentation improves Full Code Admit as inpatient and will require two night minimum hospital stay for IV antibiotics Time Spent With Patient Time: Total time managing care of this patient today ____ minutes. Quality Stroke Does the patient have a stroke diagnosis?: No VTE Prior VTE?: No VTE Risk Level:: Medical - moderate - high VTE Device Contraindication: Treatment Not Indicated VTE Drug Contraindication: N/A - Med Ordered
--- NOTE | 2022-12-16 07:20 | PC.NURSE ---
pt found to be desatting to 81% after duoned. pt placed on nonrebreather in which spo2 84% this rn contacted rt to bedside. ed provider to bedside. pt placed on bipap. pt aggravated, screaming, telling staff to get out of room. pt medicated according to mar. with additional 40mg lasix and ativan 1mg iv. dr loja to bedside. pt hypertensive at this time. dr loja placed orders for labetalol
--- NOTE | 2022-12-16 07:24 | PC.NURSE ---
Addendum entered by Brenda Moreira 12/16/22 07:45: Addendum pt on CPAP not BIPAP. Original Note: assume care of this pt at 0700. pt has potassium running at 100ml/hr and on bipap.
--- NOTE | 2022-12-16 07:31 | PC.NURSE ---
Per overnight nurse, pt was given 10mg of Labetalol for BP of 191/166. Pt current BP 210/62 Dr. Guzman was notified and is currently at bedside. Pt O2 stat 82-85 on CPAP, respiratory notified. Will continue to observe.
--- NOTE | 2022-12-16 08:00 | PC.RT ---
pt is refusing the ABG at this time. MD aware. pt was changed from CPAP to BIPAP per MD as well.
--- NOTE | 2022-12-16 08:08 | PC.NURSE ---
respiratory at bedside. pt now on Bipap 30%.
--- NOTE | 2022-12-16 08:19 | PHA.MEDREC ---
Pharmacy Consult ? Medication Reconciliation Pharmacy has completed the medication reconciliation. Spoke to patient's daughter to confirm meds.
--- NOTE | 2022-12-16 08:21 | PC.NURSE ---
22 g in L hand unable to flush, IV d/c'd. Will attempt new IV insertion. Multiple bruising and skin tears observed, Lovenox held. Will continue to observe pt.
--- NOTE | 2022-12-16 09:57 | HO.PM.IMPN ---
Subjective Subjective Date of Service: 12/16/22 Interval History: sob, leg pain Physical Exam Vital Signs: Vital Signs: Last Vital Signs Temp 97.6 F 12/16/22 03:38 Pulse 131 H 12/16/22 06:46 Resp 22 H 12/16/22 07:56 BP 226/87 H 12/16/22 06:46 Pulse Ox 100 12/16/22 05:30 O2 Del Method Oxymask 12/16/22 05:30 O2 Flow Rate 2 12/16/22 05:30 BMI result Body Mass Index 25.2 alert, frail, elderly, ill appearing, crackles, 1-2 + lower extremity edema, poor insight Objective Data Active Medications Acetaminophen (Acetaminophen 325 Mg Tablet) 650 mg PO Q6H PRN PRN Reason: Pain, Mild (Pain Scale 1-3) Albuterol/Ipratropium (Albuterol/Iprat 2.5/0.5mg 3 Ml Ampul.Neb) 3 ml INHALE Q4H PRN PRN Reason: Wheezing Aspirin (Aspirin Enteric Coated 81 Mg Tablet.) 81 mg PO DAILY [facility] Atorvastatin Calcium (Atorvastatin Calcium 40 Mg Tablet) 40 mg PO BEDTIME [facility] Enoxaparin Sodium (Enoxaparin Sodium 40 Mg/0.4 Ml Syringe) 40 mg SUBCUT Q24H [facility] Last Admin: 12/16/22 08:17 Dose: Not Given Documented By: RITO Non-Admin Reason: See Note Furosemide (Furosemide 40 Mg/4 Ml Vial) 40 mg IVPUSH BID@0900,1800 [facility]; Protocol Meropenem 1 gm/ Sodium (Chloride) 100 mls @ 200 mls/hr IV Q12H [facility] Ampicillin Sodium 2 gm/ Sodium (Chloride) 100 mls @ 100 mls/hr IV Q6H [facility] Last Infusion: 12/16/22 08:53 Dose: 100 mls/hr Documented By: RITO Isosorbide Mononitrate (Isosorbide Mononitrate 30 Mg Tab.Er.24h) 30 mg PO DAILY [facility]; Protocol Melatonin (Melatonin 3 Mg Tablet) 6 mg PO BEDTIME PRN PRN Reason: Insomnia Metoprolol Tartrate (Metoprolol Tartrate 25 Mg Tablet) 25 mg PO BID [facility]; Protocol Montelukast Sodium (Montelukast Sodium 10 Mg Tablet) 10 mg PO BEDTIME [facility] Non-Formulary Medication (Fluticasone Propionate [Flovent Hfa]) 2 puff INHALE BID PRN PRN Reason: Shortness Of Breath Or Wheezing Non-Formulary Medication (Ferrous Sulfate) 325 mg PO DAILY [facility] Non-Formulary Medication (Pantoprazole) 40 mg PO BID [facility] Ondansetron HCl (Ondansetron Hcl 4 Mg/2 Ml Vial) 4 mg IVPUSH Q8H PRN PRN Reason: Nausea and Vomiting Oxybutynin Chloride (Oxybutynin Chloride Er 5 Mg Tab.Er.24) 5 mg PO DAILY [facility] Pharmacy Consult (Consult Rx Perform Med Rec) 1 each MISCELLANE ONCE PRN PRN Reason: Consult order Prednisone (Prednisone 5 Mg Tablet) 5 mg PO DAILY [facility] Risperidone (Risperidone 0.25 Mg Tablet) 0.25 mg PO BEDTIME [facility] Sodium Chloride (0.9 % Sodium Chloride Flush 3 Ml Syringe) 3 ml IVFLUSH QSHIFT [facility] Last Admin: 12/16/22 08:27 Dose: Not Given Documented By: RITO Non-Admin Reason: IV Running Thiamine HCl (Thiamine Hcl 100 Mg Tablet) 100 mg PO DAILY [facility] Tramadol HCl (Tramadol Hcl 50 Mg Tablet) 25 mg PO BID [facility] Labs 12/16/22 00:21 12/16/22 00:21 Labs: Laboratory Results - last 24 hr 12/16/22 12/16/22 12/16/22 00:21 00:21 00:21 MCV 94.4 MCH 31.5 MCHC 33.3 RDW 15.9 Plt Count 194 MPV 11.2 Absolute Nucleated RBC 0.000 Nucleated RBC % (auto) 0.0 VBG pH VBG pCO2 VBG pO2 VBG HCO3 VBG O2 Saturation VBG Base Excess Anion Gap 17 Estim Creat Clear Calc 33.4 Estimated GFR 48 Random Glucose 151 H Lactic Acid 2.6 H* Lactic Acid F/U @ 2Hr Lactic Acid F/U @ 4Hr Calcium 8.6 Total Bilirubin 0.8 AST 43 H ALT 39 H Alkaline Phosphatase 142 H B-Natriuretic Peptide Total Protein 5.8 L Albumin 2.8 L Urine Color Urine Appearance Urine pH Ur Specific [place] Urine Protein Urine Glucose (UA) Urine Ketones Urine Blood Urine Nitrite Ur Leukocyte Esterase Urine RBC Urine WBC Ur Squamous Epith Cells Urine Bacteria Hyaline Casts 12/16/22 12/16/22 12/16/22 02:48 03:23 05:47 MCV MCH MCHC RDW Plt Count MPV Absolute Nucleated RBC Nucleated RBC % (auto) VBG pH VBG pCO2 VBG pO2 VBG HCO3 VBG O2 Saturation VBG Base Excess Anion Gap Estim Creat Clear Calc Estimated GFR Random Glucose Lactic Acid Lactic Acid F/U @ 2Hr 2.3 H* Lactic Acid F/U @ 4Hr 1.5 Calcium Total Bilirubin AST ALT Alkaline Phosphatase B-Natriuretic Peptide Total Protein Albumin Urine Color Yellow Urine Appearance Cloudy Urine pH 7.0 Ur Specific [place] <= 1.005 Urine Protein Negative Urine Glucose (UA) Negative Urine Ketones Negative Urine Blood Small (1+) H Urine Nitrite Negative Ur Leukocyte Esterase Large (3+) H Urine RBC 3-5 H Urine WBC >50 H Ur Squamous Epith Cells 0-2 Urine Bacteria 4+ Hyaline Casts 3-5 12/16/22 12/16/22 09:20 09:21 MCV MCH MCHC RDW Plt Count MPV Absolute Nucleated RBC Nucleated RBC % (auto) VBG pH 7.43 VBG pCO2 49 VBG pO2 59 VBG HCO3 33 H VBG O2 Saturation 83.0 VBG Base Excess 7.9 Anion Gap Estim Creat Clear Calc Estimated GFR Random Glucose Lactic Acid Lactic Acid F/U @ 2Hr Lactic Acid F/U @ 4Hr Calcium Total Bilirubin AST ALT Alkaline Phosphatase B-Natriuretic Peptide 371 H Total Protein Albumin Urine Color Urine Appearance Urine pH Ur Specific [place] Urine Protein Urine Glucose (UA) Urine Ketones Urine Blood Urine Nitrite Ur Leukocyte Esterase Urine RBC Urine WBC Ur Squamous Epith Cells Urine Bacteria Hyaline Casts Assessment and Plan (1) Acute metabolic encephalopathy: Status: Acute Plan 82F PMH CHF with reduce EF, dementia, CAD, copd with bronchiectasis, paroxysmal afib, hld, presented with AMS Acute metabolic encephalopathy and acute hypoxic respiratory failure Multifactorial COPD with acute decompensation - continue bronchodilators Question of aspiration - continue meropenem, ampicillin Acute on chronic systolic CHF - IV Lasix Lactic acidosis not due to sepsis Hypokalemia Replace and monitor Elevated blood pressure readings Labile, performed with automated cuff on leg, accuracy questionable Continue Imdur, metoprolol Coronary disease Aspirin statin UTI Meropenem, ampicillin, follow-up cultures Paroxysmal atrial fibrillation Continue metoprolol (? not on ac) DVT prophylaxis with Lovenox Full code reason for continued hospitalization: acutely ill appearing, iv diuresis, o2 supplementation Time Spent With Patient Time: Total time managing care of this patient today ____ minutes. Quality Stroke Does the patient have a stroke diagnosis?: No VTE Prior VTE?: No VTE Risk Level:: Medical - moderate - high VTE Device Contraindication: Treatment Not Indicated VTE Drug Contraindication: N/A - Med Ordered
--- NOTE | 2022-12-16 10:09 | MHC.CM.PN ---
Addendum entered by Savannah Hidalgo 12/16/22 10:16: Patient receives physical therapy from [facility]. Original Note: Attempted to meet with patient in regards to discharge planning. Patient is currently sleeping. Spoke with patient's daughter, Ximena, via telephone at [phone]. Patient lives with Ximena, uses walker to ambulate and had no services prior to coming to the ER. Patient was recently active with [facility]. PCP verified. HCP verified to be on file. Patient received 3 Pfizer vaccines and 1 Moderna vaccines. IMM explained and signed. Patient will need BLS transport when medically stable. Continue to monitor for d/c needs.
[2022-12-16] MEDS: Metoprolol Tartrate 25 MG TABLET PO ×2 (10:35→20:20)
[2022-12-16] MEDS: Isosorbide Mononitrate 30 MG TAB.ER.24H PO (10:35)
--- NOTE | 2022-12-16 10:42 | PC.NURSE ---
blood pressure meds given per order, respiratory called for breathing treatment.
--- NOTE | 2022-12-16 11:14 | PC.NURSE ---
pt on 1.5L n/c satting 95-99%. pt transferred to hospital bed for comfort. pt resting quietly,, no apparent distress. b/p stable.
--- NOTE | 2022-12-16 12:27 | PC.NURSE ---
report given to JAVAN Valentin.
--- NOTE | 2022-12-16 16:15 | W.PM.IDCN ---
History of Present Illness Data of Consult Service Date: 12/16/22 Requesting physician: Yohannes Guzman Primary Care Provider: Monica Arciniega MD HPI Reason for consult: encephalopathy She is here with daughters,one from [place]. She is reportedly combative at home and cant describe any urinary symptoms. She has no fever or chills or leukocytosis. She had been hospitalized in October and 11/02 Proteus and E faecalis urine. Review of Systems Review of Systems: Yes Unobtainable due to mental condition [facility] Past Medical History Medical History A-fib Acute encephalopathy Acute hypokalemia Acute respiratory failure with hypoxia Anemia Anemia Aspiration pneumonia Atelectasis of right lung Atrial fibrillation with RVR Atrial flutter Bronchiectasis CAD (coronary artery disease) Chronic dyspnea Congestive heart failure COPD (chronic obstructive pulmonary disease) COPD (chronic obstructive pulmonary disease) Dyspnea Encephalopathy chronic GI bleed Heart failure History of infection with vancomycin resistant Enterococcus (VRE) Paroxysmal A-fib Pseudomonal pneumonia Pseudomonas respiratory infection Pulmonary nodules Pyuria Family History Family History Other No family history of cancer Family history: reviewed and not pertinent Surgical History Surgical History H/O umbilical hernia repair (09/18/22) History of cholecystectomy History of hip replacement History of knee replacement History of quadruple bypass Social History Social History Household Members: Family Housing: House Are you a primary home health care case manager to a significant other at home: No Do you presently have visiting nurse or other home services: Yes Alcohol intake: never Patient Tobacco Use Status: Never used Tobacco Tobacco use type: Cigarette Advance Directives Date on File: 08/24/22 service: No Current occupational status: retired Meds Allergies Allergy/AdvReac Type Severity Reaction Status Date / Time carvedilol Allergy Shortness Verified 10/04/22 14:13 of Breath sertraline [From Zoloft] Allergy Shortness Verified 10/04/22 14:13 of Breath spironolactone Allergy Shortness Verified 10/04/22 14:13 of Breath mirtazapine AdvReac Severe psychotic Verified 12/16/22 08:03 episode Active Medications: Current Medications Acetaminophen (Acetaminophen 325 Mg Tablet) 650 mg PO Q6H PRN PRN Reason: Pain, Mild (Pain Scale 1-3) Albuterol/Ipratropium (Albuterol/Iprat 2.5/0.5mg 3 Ml Ampul.Neb) 3 ml INHALE Q4H PRN PRN Reason: Wheezing Aspirin (Aspirin Enteric Coated 81 Mg Tablet.) 81 mg PO DAILY [facility] Atorvastatin Calcium (Atorvastatin Calcium 40 Mg Tablet) 40 mg PO BEDTIME [facility] Enoxaparin Sodium (Enoxaparin Sodium 40 Mg/0.4 Ml Syringe) 40 mg SUBCUT Q24H [facility] Last Admin: 12/16/22 08:17 Dose: Not Given Ferrous Sulfate (Ferrous Sulfate 324 Mg Tablet.) 324 mg PO DAILY [facility] Fluticasone Propionate (Fluticasone Propionate 100 Mcg Blst.W.Dev) 2 puff INHALE RBID PRN PRN Reason: Shortness Of Breath Or Wheezing Furosemide (Furosemide 40 Mg Tablet) 40 mg PO DAILY [facility]; Protocol Meropenem 1 gm/ Sodium (Chloride) 100 mls @ 200 mls/hr IV Q12H [facility] Last Admin: 12/16/22 16:12 Dose: 200 mls/hr Linezolid (Zyvox/D5w) 600 mg in 300 mls @ 300 mls/hr IV Q12H [facility] Isosorbide Mononitrate (Isosorbide Mononitrate 30 Mg Tab.Er.24h) 30 mg PO DAILY [facility]; Protocol Last Admin: 12/16/22 10:35 Dose: 30 mg Melatonin (Melatonin 3 Mg Tablet) 6 mg PO BEDTIME PRN PRN Reason: Insomnia Metoprolol Tartrate (Metoprolol Tartrate 25 Mg Tablet) 25 mg PO BID [facility]; Protocol Last Admin: 12/16/22 10:35 Dose: 25 mg Montelukast Sodium (Montelukast Sodium 10 Mg Tablet) 10 mg PO BEDTIME [facility] Omeprazole (Omeprazole 20 Mg Capsule.) 20 mg PO BID@0630,1630 [facility] Ondansetron HCl (Ondansetron Hcl 4 Mg/2 Ml Vial) 4 mg IVPUSH Q8H PRN PRN Reason: Nausea and Vomiting Oxybutynin Chloride (Oxybutynin Chloride Er 5 Mg Tab.Er.24) 5 mg PO DAILY [facility] Pharmacy Consult (Consult Rx Perform Med Rec) 1 each MISCELLANE ONCE PRN PRN Reason: Consult order Prednisone (Prednisone 5 Mg Tablet) 5 mg PO DAILY [facility] Risperidone (Risperidone 0.25 Mg Tablet) 0.25 mg PO BEDTIME [facility] Sodium Chloride (0.9 % Sodium Chloride Flush 3 Ml Syringe) 3 ml IVFLUSH QSHIFT [facility] Last Admin: 12/16/22 08:27 Dose: Not Given Thiamine HCl (Thiamine Hcl 100 Mg Tablet) 100 mg PO DAILY [facility] Tramadol HCl (Tramadol Hcl 50 Mg Tablet) 25 mg PO BID [facility] Home Medications Medication Instructions Recorded Confirmed Last Taken Type docusate sodium 100 mg capsule 100 mg PO DAILY 03/22/22 12/16/22 12/15/22 09:00 History fluticasone propionate 50 1 spray intranasal BID 03/22/22 12/16/22 12/15/22 09:00 History mcg/actuation nasal spray,suspension montelukast 10 mg tablet 10 mg PO BEDTIME 03/22/22 12/16/22 12/14/22 History nebulizers 03/22/22 07/04/22 Unknown History oxybutynin chloride 5 mg 5 mg PO DAILY 03/22/22 12/16/22 12/15/22 09:00 History tablet,extended release 24 hr tramadol 50 mg tablet 25 mg PO BID 03/22/22 12/16/22 12/15/22 09:00 History umeclidinium 62.5 mcg-vilanterol 1 ea inhalation DAILY 05/24/22 12/16/22 12/15/22 09:00 History 25 mcg/actuation powdr for inhalation (Anoro Ellipta) albuterol sulfate 90 mcg/actuation 2 puff inhalation Q4-6H PRN 11/02/22 12/16/22 Unknown History aerosol inhaler (Ventolin HFA) Shortness Of Breath Or Wheezing aspirin 81 mg tablet,delayed 81 mg PO DAILY 11/02/22 12/16/22 12/15/22 09:00 History release isosorbide mononitrate 30 mg 30 mg PO DAILY 11/02/22 12/16/22 12/15/22 09:00 History tablet,extended release 24 hr levalbuterol HCl 1.25 mg/3 mL 1.25 mg inhalation TID 11/02/22 12/16/22 12/15/22 09:00 History solution for nebulization pantoprazole 40 mg tablet,delayed 40 mg PO BID 11/02/22 12/16/22 12/15/22 09:00 History release thiamine HCl (vitamin B1) 100 mg 100 mg PO DAILY 11/02/22 12/16/22 12/15/22 09:00 History tablet cefpodoxime 200 mg tablet 200 mg PO Q12H 12/16/22 12/16/22 12/15/22 09:00 History fluticasone propionate 110 2 puff inhalation BID PRN 12/16/22 12/16/22 Unknown History mcg/actuation HFA aerosol inhaler Shortness Of Breath Or Wheezing (Flovent HFA) risperidone 0.25 mg tablet 0.25 mg PO BEDTIME 12/16/22 12/16/22 12/14/22 History Physical Exam Vital Signs: Vital Signs: Last Vital Signs Temp 97.1 F 12/16/22 15:19 Pulse 113 H 12/16/22 15:19 Resp 20 12/16/22 15:19 BP 115/83 12/16/22 15:19 Pulse Ox 93 12/16/22 15:19 O2 Del Method Nasal Cannula 12/16/22 15:19 O2 Flow Rate 2 12/16/22 15:19 BMI result Body Mass Index 25.2 Psych: Other: confused female Results Labs 12/16/22 00:21 12/16/22 00:21 Labs: Short CBC 12/16/22 Range/Units 00:21 WBC 8.3 (4.8-10.8) X10*3/uL Hgb 9.5 L (12.0-16.0) g/dl Hct 28.5 L (37.0-47.0) % Plt Count 194 (160-400) X10*3/uL BMP 12/16/22 00:21 Sodium 141 Potassium 2.7 L D Chloride 98 Carbon Dioxide 29 BUN 21 H Creatinine 1.09 Calcium 8.6 Liver Function 12/16/22 Range/Units 00:21 Total Bilirubin 0.8 (0.0-1.0) mg/dL AST 43 H (5-31) U/L ALT 39 H (0-31) U/L Alkaline Phosphatase 142 H (39-117) U/L Albumin 2.8 L (3.5-5.0) g/dL Urine 12/16/22 Range/Units 02:48 Urine Color Yellow Urine Appearance Cloudy Urine pH 7.0 (5.0-9.0) Ur Specific [place] <= 1.005 (1.005-1.025) Urine Protein Negative (Neg-Trace) mg/dL Urine Glucose (UA) Negative (Negative) mg/dL Assessment and Plan (1) Acute metabolic encephalopathy: Status: Acute She has acute encephalopathy and this is usually due to urinary tract infections per daughters. In October she had proteus and enterococcus in urine. She has cultures pending and is likely colonized. (2) Acute alteration in mental status: Status: Acute (3) Pyuria: Status: Acute Plan Merem and Linezolid until final cultures back. Search for other metabolic causes. Time Spent With Patient Time: Total time managing care of this patient today ____ minutes.
--- NOTE | 2022-12-16 16:40 | PM.EVENT ---
Event Note Date of Service: 12/16/22 Event Note: She likely has aspiration pneumonia as well and is covered. Check nares MRSA. Time Spent With Patient Time: Total time managing care of this patient today ____ minutes.
[2022-12-16] MEDS: risperiDONE 0.25 MG TABLET PO (20:19)
[2022-12-16] MEDS: QUEtiapine Fumarate 25 MG TABLET 12.5 MG PO (20:19)
[2022-12-16] MEDS: traMADoL HCL 50 MG TABLET 25 MG PO (20:19)
[2022-12-16] MEDS: Atorvastatin Calcium 40 MG TABLET PO (20:19)
[2022-12-16] MEDS: Omeprazole 20 MG CAPSULE.DR PO (20:20)
[2022-12-16] MEDS: Montelukast Sodium 10 MG TABLET PO (20:20)
[2022-12-17] VITALS: BP 109/59; PULSE 64; RESP 20; TEMP 36.1; O2SAT 97
[2022-12-17 03:43] VITALS: BP 109/56; PULSE 83; RESP 20; TEMP 36.1; O2SAT 93
[2022-12-17] MEDS: Omeprazole 20 MG CAPSULE.DR PO ×2 (06:02→17:42)
[2022-12-17 07:30] VITALS: BP 83/47; PULSE 85; RESP 17; TEMP 36.4; O2SAT 98
[2022-12-17] MEDS: Aspirin Enteric Coated 81 MG TABLET.DR PO (08:42)
[2022-12-17] MEDS: Thiamine HCL 100 MG TABLET PO (08:42)
[2022-12-17] MEDS: predniSONE 5 MG TABLET PO (08:42)
[2022-12-17] MEDS: traMADoL HCL 50 MG TABLET 25 MG PO ×2 (08:42→19:55)
[2022-12-17] MEDS: Magnesium Oxide 400 MG TABLET 800 MG PO (08:43)
[2022-12-17] MEDS: oxyBUTYnin chloride ER 5 MG TAB.ER.24 PO (08:43)
[2022-12-17 08:58] VITALS: BP 83/71
--- NOTE | 2022-12-17 09:25 | HO.PM.IMPN ---
Subjective Subjective Date of Service: 12/17/22 Interval History: imprvoing Physical Exam Vital Signs: Vital Signs: Last Vital Signs Temp 97.6 F 12/17/22 07:30 Pulse 85 12/17/22 07:30 Resp 17 12/17/22 07:30 BP 83/71 L 12/17/22 08:58 Pulse Ox 98 12/17/22 07:30 O2 Del Method Room Air 12/17/22 07:30 O2 Flow Rate 2 12/16/22 15:19 BMI result Body Mass Index 25.2 more alert, less tachypneic, lungs clear Objective Data Active Medications Acetaminophen (Acetaminophen 325 Mg Tablet) 650 mg PO Q6H PRN PRN Reason: Pain, Mild (Pain Scale 1-3) Albuterol/Ipratropium (Albuterol/Iprat 2.5/0.5mg 3 Ml Ampul.Neb) 3 ml INHALE Q4H PRN PRN Reason: Wheezing Aspirin (Aspirin Enteric Coated 81 Mg Tablet.) 81 mg PO DAILY [facility] Last Admin: 12/17/22 08:42 Dose: 81 mg Documented By: SHARON Atorvastatin Calcium (Atorvastatin Calcium 40 Mg Tablet) 40 mg PO BEDTIME [facility] Last Admin: 12/16/22 20:19 Dose: 40 mg Documented By: IRAJ Enoxaparin Sodium (Enoxaparin Sodium 40 Mg/0.4 Ml Syringe) 40 mg SUBCUT Q24H [facility] Last Admin: 12/17/22 08:44 Dose: Not Given Documented By: SHARON Non-Admin Reason: Patient Refused Ferrous Sulfate (Ferrous Sulfate 324 Mg Tablet.) 324 mg PO DAILY [facility] Last Admin: 12/17/22 08:58 Dose: Not Given Documented By: SHARON Non-Admin Reason: Patient Refused Fluticasone Propionate (Fluticasone Propionate 100 Mcg Blst.W.Dev) 2 puff INHALE RBID PRN PRN Reason: Shortness Of Breath Or Wheezing Furosemide (Furosemide 40 Mg Tablet) 40 mg PO DAILY [facility]; Protocol Last Admin: 12/17/22 08:59 Dose: Not Given Documented By: SHARON Non-Admin Reason: Patient Condition Contraindication Guaifenesin/Dextromethorphan (Guaifenesin Dm 600/30 1 Tab Tab.Er.12h) 1 tab PO BID PRN PRN Reason: cough Meropenem 1 gm/ Sodium (Chloride) 100 mls @ 200 mls/hr IV Q12H [facility] Last Infusion: 12/17/22 03:39 Dose: 0 mls/hr Documented By: IRAJ Linezolid (Zyvox/D5w) 600 mg in 300 mls @ 300 mls/hr IV Q12H [facility] Last Infusion: 12/17/22 06:28 Dose: 0 mls/hr Documented By: IRAJ Isosorbide Mononitrate (Isosorbide Mononitrate 30 Mg Tab.Er.24h) 30 mg PO DAILY [facility]; Protocol Last Admin: 12/17/22 08:59 Dose: Not Given Documented By: SHARON Non-Admin Reason: Decreased Blood Pressure Magnesium Oxide (Magnesium Oxide 400 Mg Tablet) 800 mg PO BIDPC [facility] Last Admin: 12/17/22 08:43 Dose: 800 mg Documented By: SHARON Melatonin (Melatonin 3 Mg Tablet) 6 mg PO BEDTIME PRN PRN Reason: Insomnia Last Admin: 12/16/22 20:19 Dose: 6 mg Documented By: IRAJ Metoprolol Tartrate (Metoprolol Tartrate 25 Mg Tablet) 25 mg PO BID [facility]; Protocol Last Admin: 12/17/22 08:59 Dose: Not Given Documented By: SHARON Non-Admin Reason: Decreased Blood Pressure Montelukast Sodium (Montelukast Sodium 10 Mg Tablet) 10 mg PO BEDTIME [facility] Last Admin: 12/16/22 20:20 Dose: 10 mg Documented By: IRAJ Omeprazole (Omeprazole 20 Mg Capsule.Dr) 20 mg PO BID@0630,1630 [facility] Last Admin: 12/17/22 06:02 Dose: 20 mg Documented By: IRAJ Ondansetron HCl (Ondansetron Hcl 4 Mg/2 Ml Vial) 4 mg IVPUSH Q8H PRN PRN Reason: Nausea and Vomiting Oxybutynin Chloride (Oxybutynin Chloride Er 5 Mg Tab.Er.24) 5 mg PO DAILY [facility] Last Admin: 12/17/22 08:43 Dose: 5 mg Documented By: SHARON Pharmacy Consult (Consult Rx Perform Med Rec) 1 each MISCELLANE ONCE PRN PRN Reason: Consult order Prednisone (Prednisone 5 Mg Tablet) 5 mg PO DAILY [facility] Last Admin: 12/17/22 08:42 Dose: 5 mg Documented By: SHARON Quetiapine Fumarate (Quetiapine Fumarate 25 Mg Tablet) 12.5 mg PO BID PRN PRN Reason: agitation Last Admin: 12/16/22 20:19 Dose: 12.5 mg Documented By: IRAJ Risperidone (Risperidone 0.25 Mg Tablet) 0.25 mg PO BEDTIME [facility] Last Admin: 12/16/22 20:19 Dose: 0.25 mg Documented By: IRAJ Sodium Chloride (0.9 % Sodium Chloride Flush 3 Ml Syringe) 3 ml IVFLUSH QSHIFT [facility] Last Admin: 12/17/22 08:42 Dose: 3 ml Documented By: SHARON Thiamine HCl (Thiamine Hcl 100 Mg Tablet) 100 mg PO DAILY [facility] Last Admin: 12/17/22 08:42 Dose: 100 mg Documented By: SHARON Tramadol HCl (Tramadol Hcl 50 Mg Tablet) 25 mg PO BID [facility] Last Admin: 12/17/22 08:42 Dose: 25 mg Documented By: SHARON Labs 12/17/22 06:25 12/17/22 06:25 Labs: Laboratory Results - last 24 hr 12/16/22 12/16/22 12/17/22 09:20 09:21 06:25 MCV 97.7 MCH 30.6 MCHC 31.3 RDW 16.0 Plt Count 193 MPV 11.3 Immature Gran % (Auto) 0.4 Neut % (Auto) 57.4 Lymph % (Auto) 18.3 L [place] % (Auto) 5.2 Eos % (Auto) 18.1 H Baso % (Auto) 0.6 Lymph # (Auto) 1.8 [place] # (Auto) 0.5 Eos # (Auto) 1.8 H Baso # (Auto) 0.1 Abs Immat Gran (auto) 0.04 H Absolute Neuts (auto) 5.7 Absolute Nucleated RBC 0.000 Nucleated RBC % (auto) 0.0 VBG pH 7.43 VBG pCO2 49 VBG pO2 59 VBG HCO3 33 H VBG O2 Saturation 83.0 VBG Base Excess 7.9 Anion Gap Estim Creat Clear Calc Estimated GFR Random Glucose Fasting Glucose Calcium Magnesium B-Natriuretic Peptide 371 H 12/17/22 12/17/22 06:25 06:25 MCV MCH MCHC RDW Plt Count MPV Immature Gran % (Auto) Neut % (Auto) Lymph % (Auto) [place] % (Auto) Eos % (Auto) Baso % (Auto) Lymph # (Auto) [place] # (Auto) Eos # (Auto) Baso # (Auto) Abs Immat Gran (auto) Absolute Neuts (auto) Absolute Nucleated RBC Nucleated RBC % (auto) VBG pH VBG pCO2 VBG pO2 VBG HCO3 VBG O2 Saturation VBG Base Excess Anion Gap Cancelled 15 Estim Creat Clear Calc Cancelled 45.5 Estimated GFR Cancelled > 60 Random Glucose Cancelled Fasting Glucose 119 H Calcium Cancelled 8.6 Magnesium 1.5 L B-Natriuretic Peptide Microbiology Microbiology Results: Microbiology 12/16/22 01:36 Blood Culture - Preliminary Blood - Venous No growth after 24 hours. 12/16/22 00:21 Blood Culture - Preliminary Blood - Venous No growth after 24 hours. Assessment and Plan (1) Acute metabolic encephalopathy: Status: Acute Plan 82F PMH CHF with reduce EF, dementia, CAD, copd with bronchiectasis, paroxysmal afib, hld, presented with AMS Acute metabolic encephalopathy and acute hypoxic respiratory failure Multifactorial COPD with acute decompensation - continue bronchodilators aspiration pneumonia - continue meropenem, zyvox Acute on chronic systolic CHF - s/p iv lasix, now back on po Lactic acidosis not due to sepsis encephalopathy much improved uti merem, zyvox, follow up cultures Hypokalemia Replace and monitor HTN with ? blood pressure readings Labile, performed with automated cuff on leg, accuracy questionable Continue Imdur, metoprolol Coronary disease Aspirin statin UTI Meropenem, ampicillin, follow-up cultures Paroxysmal atrial fibrillation Continue metoprolol not on AC due to easy bruising DVT prophylaxis with Lovenox Full code reason for continued hospitalization: denys johnston Time Spent With Patient Time: Total time managing care of this patient today ____ minutes. Quality Stroke Does the patient have a stroke diagnosis?: No VTE Prior VTE?: No VTE Risk Level:: Medical - moderate - high VTE Device Contraindication: Treatment Not Indicated VTE Drug Contraindication: N/A - Med Ordered
[2022-12-17 11:15] VITALS: BP 133/62; PULSE 94; RESP 17; TEMP 35.9; O2SAT 97
[2022-12-17 19:18] VITALS: PULSE 91; RESP 20; TEMP 36.1; O2SAT 98
[2022-12-17] MEDS: Metoprolol Tartrate 25 MG TABLET PO (19:55)
[2022-12-17] MEDS: Atorvastatin Calcium 40 MG TABLET PO (19:57)
[2022-12-17] MEDS: risperiDONE 0.25 MG TABLET PO (19:58)
[2022-12-17] MEDS: Montelukast Sodium 10 MG TABLET PO (20:01)
--- NOTE | 2022-12-17 23:57 | PM.EVENT ---
Event Note Date of Service: 12/17/22 Event Note: Stop zyvox ,no enterococcus seen so far. Time Spent With Patient Time: Total time managing care of this patient today ____ minutes.
[2022-12-18] VITALS (7 sets, daily range): BP systolic 83–146; BP diastolic 58–93; PULSE 61–112; RESP 16–20; TEMP 35.7–37.1; O2SAT 92–96
[2022-12-18] MEDS: Omeprazole 20 MG CAPSULE.DR PO ×2 (05:53→16:58)
[2022-12-18 06:11] LABS: Hematocrit 34.8 % (37.0-47.0); Hemoglobin 11.3 g/dl (12.0-16.0); Mean Corpuscular HGB Conc 32.5 g/dl (31.0-35.0); Mean Corpuscular Hemoglobin 31.5 pg (27.0-33.0); Mean Corpuscular Volume 96.9 fL (80.0-98.0); PLT CLUMP 1; Red Blood Count 3.59 X10*6/uL (4.20-5.50); Red Cell Distribution Width 15.9 % (11.0-16.0)
[2022-12-18 06:30] LABS: Anion Gap 17 (12-20); Blood Urea Nitrogen 13 mg/dL (9-16); Carbon Dioxide 24 mmol/L (22-29); Chloride 104 mmol/L (96-108); Creatinine Clr Calc Pharmacy 37.5; Estimated Glomerular Filt Rate 55; Glucose Fasting 146 mg/dL (60-99); Potassium 3.5 mmol/L (3.3-5.1); Sodium 141 mmol/L (135-145)
[2022-12-18] MEDS: Furosemide 40 MG TABLET PO (06:36)
[2022-12-18 06:50] LABS: Platelet Count 265 X10*3/uL (160-400); White Blood Count 20.1 X10*3/uL (4.8-10.8)
[2022-12-18] MEDS: Magnesium Oxide 400 MG TABLET 800 MG PO ×2 (08:41→16:58)
[2022-12-18] MEDS: traMADoL HCL 50 MG TABLET 25 MG PO ×2 (08:41→19:59)
[2022-12-18] MEDS: Ferrous Sulfate 324 MG TABLET.DR PO (08:41)
[2022-12-18] MEDS: Thiamine HCL 100 MG TABLET PO (08:41)
[2022-12-18] MEDS: predniSONE 5 MG TABLET PO (08:41)
[2022-12-18] MEDS: Enoxaparin Sodium 40 MG/0.4 ML SYRINGE SUBCUT (08:41)
[2022-12-18] MEDS: oxyBUTYnin chloride ER 5 MG TAB.ER.24 PO (08:42)
[2022-12-18] MEDS: Metoprolol Tartrate 25 MG TABLET PO ×2 (08:42→19:59)
[2022-12-18] MEDS: Isosorbide Mononitrate 30 MG TAB.ER.24H PO (08:42)
[2022-12-18] MEDS: Aspirin Enteric Coated 81 MG TABLET.DR PO (08:42)
[2022-12-18] MEDS: Sulfamethox/Trimeth 800/160 TABLET 1 TAB PO ×2 (10:08→20:11)
--- NOTE | 2022-12-18 10:49 | HO.PM.IMPN ---
Subjective Subjective Date of Service: 12/18/22 Interval History: improving Physical Exam Vital Signs: Vital Signs: Last Vital Signs Temp 96.5 F L 12/18/22 08:00 Pulse 112 H 12/18/22 08:00 Resp 16 12/18/22 08:00 BP 129/65 12/18/22 08:40 Pulse Ox 95 12/18/22 08:00 O2 Del Method Oxymask 12/18/22 08:00 O2 Flow Rate 2 12/18/22 08:00 BMI result Body Mass Index 25.2 much more alert, oriented, no resp distress Objective Data Active Medications Acetaminophen (Acetaminophen 325 Mg Tablet) 650 mg PO Q6H PRN PRN Reason: Pain, Mild (Pain Scale 1-3) Last Admin: 12/17/22 19:54 Dose: 650 mg Documented By: WINSTON Aspirin (Aspirin Enteric Coated 81 Mg Tablet.) 81 mg PO DAILY [facility] Last Admin: 12/18/22 08:42 Dose: 81 mg Documented By: ALISA Atorvastatin Calcium (Atorvastatin Calcium 40 Mg Tablet) 40 mg PO BEDTIME [facility] Last Admin: 12/17/22 19:57 Dose: 40 mg Documented By: WINSTON Enoxaparin Sodium (Enoxaparin Sodium 40 Mg/0.4 Ml Syringe) 40 mg SUBCUT Q24H [facility] Last Admin: 12/18/22 08:41 Dose: 40 mg Documented By: ALISA Ferrous Sulfate (Ferrous Sulfate 324 Mg Tablet.) 324 mg PO DAILY [facility] Last Admin: 12/18/22 08:41 Dose: 324 mg Documented By: ALISA Fluticasone Propionate (Fluticasone Propionate 100 Mcg Blst.W.Dev) 2 puff INHALE RBID PRN PRN Reason: Shortness Of Breath Or Wheezing Furosemide (Furosemide 40 Mg Tablet) 40 mg PO DAILY [facility]; Protocol Last Admin: 12/18/22 06:36 Dose: 40 mg Documented By: VIVEK Comments: pt SOB, some crackles to lungs, oxygen on, HR 120 okay to give per Dr. Michael Gilbertaifenesin/Dextromethorphan (Guaifenesin Dm 600/30 1 Tab Tab.Er.12h) 1 tab PO BID PRN PRN Reason: cough Isosorbide Mononitrate (Isosorbide Mononitrate 30 Mg Tab.Er.24h) 30 mg PO DAILY [facility]; Protocol Last Admin: 12/18/22 08:42 Dose: 30 mg Documented By: ALISA Magnesium Oxide (Magnesium [facility]ide 400 Mg Tablet) [facility] Last Admin: 12/18/22 08:41 Dose: 800 mg Documented By: ALISA Melatonin (Melatonin 3 Mg Tablet) 6 mg PO BEDTIME PRN PRN Reason: Insomnia Last Admin: 12/17/22 19:56 Dose: 6 mg Documented By: WINSTON Metoprolol Tartrate (Metoprolol Tartrate 25 Mg Tablet) 25 mg PO BID [facility]; Protocol Last Admin: 12/18/22 08:42 Dose: 25 mg Documented By: ALISA Montelukast Sodium (Montelukast Sodium 10 Mg Tablet) 10 mg PO BEDTIME [facility] Last Admin: 12/17/22 20:01 Dose: 10 mg Documented By: WINSTON Omeprazole (Omeprazole 20 Mg Capsule.Dr) 20 mg PO BID@0630,1630 [facility] Last Admin: 12/18/22 05:53 Dose: 20 mg Documented By: VIVEK Ondansetron HCl (Ondansetron Hcl 4 Mg/2 Ml Vial) 4 mg IVPUSH Q8H PRN PRN Reason: Nausea and Vomiting Oxybutynin Chloride (Oxybutynin Chloride Er 5 Mg Tab.Er.24) 5 mg PO DAILY [facility] Last Admin: 12/18/22 08:42 Dose: 5 mg Documented By: ALISA Pharmacy Consult (Consult Rx Perform Med Rec) 1 each MISCELLANE ONCE PRN PRN Reason: Consult order Prednisone (Prednisone 5 Mg Tablet) 5 mg PO DAILY [facility] Last Admin: 12/18/22 08:41 Dose: 5 mg Documented By: ALISA Quetiapine Fumarate (Quetiapine Fumarate 25 Mg Tablet) 12.5 mg PO BID PRN PRN Reason: agitation Last Admin: 12/16/22 20:19 Dose: 12.5 mg Documented By: IRAJ Risperidone (Risperidone 0.25 Mg Tablet) 0.25 mg PO BEDTIME [facility] Last Admin: 12/17/22 19:58 Dose: 0.25 mg Documented By: WINSTON Sodium Chloride (0.9 % Sodium Chloride Flush 3 Ml Syringe) [facility] Last Admin: 12/18/22 08:41 Dose: 3 ml Documented By: ALISA Thiamine HCl (Thiamine Hcl 100 Mg Tablet) 100 mg PO DAILY [facility] Last Admin: 12/18/22 08:41 Dose: 100 mg Documented By: ALISA Tramadol HCl (Tramadol Hcl 50 Mg Tablet) 25 mg PO BID [facility] Last Admin: 12/18/22 08:41 Dose: 25 mg Documented By: ALISA Trimethoprim/Sulfamethoxazole (Sulfamethox/Trimeth 800/160 Tablet) 1 tab PO Q12H [facility] Last Admin: 12/18/22 10:08 Dose: 1 tab Documented By: ALISA Labs 12/18/22 05:48 12/18/22 05:48 Labs: Laboratory Results - last 24 hr 12/18/22 12/18/22 05:48 05:48 MCV 96.9 MCH 31.5 MCHC 32.5 RDW 15.9 Plt Count 265 D MPV Not Reportable Absolute Nucleated RBC 0.000 Nucleated RBC % (auto) 0.0 Anion Gap 17 Estim Creat Clear Calc 37.5 Estimated GFR 55 Fasting Glucose 146 H Calcium 9.0 Microbiology Microbiology Results: Microbiology 12/16/22 Unknown Urine Culture - Final Urine clean catch - Clean Catch Midstream Proteus mirabilis 12/16/22 01:36 Blood Culture - Preliminary Blood - Venous No growth after 48 hours. 12/16/22 00:21 Blood Culture - Preliminary Blood - Venous No growth after 48 hours. Assessment and Plan (1) Acute metabolic encephalopathy: Status: Acute Plan 82F PMH CHF with reduce EF, dementia, CAD, copd with bronchiectasis, paroxysmal afib, hld, presented with AMS Acute metabolic encephalopathy and acute hypoxic respiratory failure Multifactorial COPD with acute decompensation - continue bronchodilators aspiration pneumonia - continue meropenem, zyvox Acute on chronic systolic CHF - s/p iv lasix, now back on po Lactic acidosis not due to sepsis encephalopathy resolved uti - proteus id appreciated, changed to bactrim Hypokalemia Replaced r HTN with ? blood pressure readings Labile, performed with automated cuff on leg, accuracy questionable Continue Imdur, metoprolol Coronary disease Aspirin statin Paroxysmal atrial fibrillation Continue metoprolol not on AC due to easy bruising DVT prophylaxis with Lovenox Full code reason for continued hospitalization: await downtrending leukocytosis to confirm defervensence prior to discharge Time Spent With Patient Time: Total time managing care of this patient today ____ minutes. Quality Stroke Does the patient have a stroke diagnosis?: No VTE Prior VTE?: No VTE Risk Level:: Medical - moderate - high VTE Device Contraindication: Treatment Not Indicated VTE Drug Contraindication: N/A - Med Ordered
[2022-12-18] MEDS: Montelukast Sodium 10 MG TABLET PO (20:01)
[2022-12-18] MEDS: risperiDONE 0.25 MG TABLET PO (20:01)
[2022-12-18] MEDS: Atorvastatin Calcium 40 MG TABLET PO (20:02)
[2022-12-18] MEDS: QUEtiapine Fumarate 25 MG TABLET 12.5 MG PO (22:47)
[2022-12-19] VITALS (7 sets, daily range): BP systolic 117–143; BP diastolic 62–79; PULSE 76–97; RESP 17–20; TEMP 36–36.7; O2SAT 92–98
--- NOTE | 2022-12-19 05:40 | PC.NURSE ---
CARE ASSUMED 23:15...AWAKE..ALERT..ORIENTED TO PERSON AND PLACE..VAGUE RESPONSES TO OTHER QUESTIONS...RESPIRATIONS EASY ON ROOM AIR...ATRIAL FLUTTER WITH CONTROLLED VENTRICULAR RATE..REMAINS WITH MULTIPLE BRUISES TO ARMS/LEGS..INCONTINANT URINE AND LOOSE BROWN STOOL...REFUSED AM PRILOSEC...
[2022-12-19] MEDS: predniSONE 5 MG TABLET PO (08:45)
[2022-12-19] MEDS: Aspirin Enteric Coated 81 MG TABLET.DR PO (08:45)
[2022-12-19] MEDS: Isosorbide Mononitrate 30 MG TAB.ER.24H PO (08:45)
[2022-12-19] MEDS: Metoprolol Tartrate 25 MG TABLET PO ×2 (08:45→21:10)
[2022-12-19] MEDS: Thiamine HCL 100 MG TABLET PO (08:45)
[2022-12-19] MEDS: Ferrous Sulfate 324 MG TABLET.DR PO (08:45)
[2022-12-19] MEDS: oxyBUTYnin chloride ER 5 MG TAB.ER.24 PO (08:45)
[2022-12-19] MEDS: Magnesium Oxide 400 MG TABLET 800 MG PO ×2 (08:45→18:07)
[2022-12-19] MEDS: Furosemide 40 MG TABLET PO (08:46)
[2022-12-19] MEDS: traMADoL HCL 50 MG TABLET 25 MG PO ×2 (08:46→21:10)
--- NOTE | 2022-12-19 09:58 | MHC.CM.PN ---
PER MD ROUNDS, PT NOT YET READY TO DC DCP REMAINS HOME WITH RESUMPTION OF HOME CARE BLS TRANSPORT
[2022-12-19] MEDS: Sulfamethox/Trimeth 800/160 TABLET 1 TAB PO ×2 (10:24→21:10)
--- NOTE | 2022-12-19 10:53 | HO.PM.IMPN ---
Subjective Subjective Date of Service: 12/19/22 Interval History: watery diarrhea Physical Exam Vital Signs: Vital Signs: Last Vital Signs Temp 97.2 F 12/19/22 07:47 Pulse 94 12/19/22 07:47 Resp 20 12/19/22 07:47 BP 143/73 H 12/19/22 07:47 Pulse Ox 92 12/19/22 07:47 O2 Del Method Room Air 12/19/22 07:47 O2 Flow Rate 2 12/18/22 08:00 BMI result Body Mass Index 25.2 much more alert, oriented, no resp distress Objective Data Active Medications Acetaminophen (Acetaminophen 325 Mg Tablet) 650 mg PO Q6H PRN PRN Reason: Pain, Mild (Pain Scale 1-3) Last Admin: 12/17/22 19:54 Dose: 650 mg Documented By: WINSTON Aspirin (Aspirin Enteric Coated 81 Mg Tablet.) 81 mg PO DAILY [facility] Last Admin: 12/19/22 08:45 Dose: 81 mg Documented By: TILA Atorvastatin Calcium (Atorvastatin Calcium 40 Mg Tablet) 40 mg PO BEDTIME [facility] Last Admin: 12/18/22 20:02 Dose: 40 mg Documented By: ROSA Enoxaparin Sodium (Enoxaparin Sodium 40 Mg/0.4 Ml Syringe) 40 mg SUBCUT Q24H [facility] Last Admin: 12/19/22 08:48 Dose: Not Given Documented By: TILA Non-Admin Reason: Patient Refused Ferrous Sulfate (Ferrous Sulfate 324 Mg Tablet.) 324 mg PO DAILY [facility] Last Admin: 12/19/22 08:45 Dose: 324 mg Documented By: TILA Fluticasone Propionate (Fluticasone Propionate 100 Mcg Blst.W.Dev) 2 puff INHALE RBID PRN PRN Reason: Shortness Of Breath Or Wheezing Furosemide (Furosemide 40 Mg Tablet) 40 mg PO DAILY [facility]; Protocol Last Admin: 12/19/22 08:46 Dose: 40 mg Documented By: TILA Guaifenesin/Dextromethorphan (Guaifenesin Dm 600/30 1 Tab Tab.Er.12h) 1 tab PO BID PRN PRN Reason: cough Isosorbide Mononitrate (Isosorbide Mononitrate 30 Mg Tab.Er.24h) 30 mg PO DAILY [facility]; Protocol Last Admin: 12/19/22 08:45 Dose: 30 mg Documented By: TILA Magnesium Oxide ([facility]ide 400 Mg Tablet) [facility] Last Admin: 12/19/22 08:45 Dose: 800 mg Documented By: TILA Melatonin (Melatonin 3 Mg Tablet) 6 mg PO BEDTIME PRN PRN Reason: Insomnia Last Admin: 12/17/22 19:56 Dose: 6 mg Documented By: WINSTON Metoprolol Tartrate (Metoprolol Tartrate 25 Mg Tablet) 25 mg PO BID [facility]; Protocol Last Admin: 12/19/22 08:45 Dose: 25 mg Documented By: TILA Montelukast Sodium (Montelukast Sodium 10 Mg Tablet) 10 mg PO BEDTIME [facility] Last Admin: 12/18/22 20:01 Dose: 10 mg Documented By: ROSA Omeprazole (Omeprazole 20 Mg Capsule.Dr) 20 mg PO BID@0630,1630 [facility] Last Admin: 12/19/22 05:32 Dose: Not Given Documented By: NADIRA Non-Admin Reason: Patient Refused Ondansetron HCl (Ondansetron Hcl 4 Mg/2 Ml Vial) 4 mg IVPUSH Q8H PRN PRN Reason: Nausea and Vomiting Oxybutynin Chloride (Oxybutynin Chloride Er 5 Mg Tab.Er.24) 5 mg PO DAILY [facility] Last Admin: 12/19/22 08:45 Dose: 5 mg Documented By: TILA Pharmacy Consult (Consult Rx Perform Med Rec) 1 each MISCELLANE ONCE PRN PRN Reason: Consult order Prednisone (Prednisone 5 Mg Tablet) 5 mg PO DAILY [facility] Last Admin: 12/19/22 08:45 Dose: 5 mg Documented By: TILA Quetiapine Fumarate (Quetiapine Fumarate 25 Mg Tablet) 12.5 mg PO BID PRN PRN Reason: agitation Last Admin: 12/18/22 22:47 Dose: 12.5 mg Documented By: ROSA Risperidone (Risperidone 0.25 Mg Tablet) 0.25 mg PO BEDTIME [facility] Last Admin: 12/18/22 20:01 Dose: 0.25 mg Documented By: ROSA Sodium Chloride (0.9 % Sodium Chloride Flush 3 Ml Syringe) 3 ml IVFLUSH QSHIFT [facility] Last Admin: 12/19/22 08:51 Dose: 3 ml Documented By: TILA Thiamine HCl (Thiamine Hcl 100 Mg Tablet) 100 mg PO DAILY [facility] Last Admin: 12/19/22 08:45 Dose: 100 mg Documented By: TILA Tramadol HCl (Tramadol Hcl 50 Mg Tablet) 25 mg PO BID [facility] Last Admin: 12/19/22 08:46 Dose: 25 mg Documented By: TILA Trimethoprim/Sulfamethoxazole (Sulfamethox/Trimeth 800/160 Tablet) 1 tab PO Q12H [facility] Last Admin: 12/19/22 10:24 Dose: 1 tab Documented By: TILA Labs 12/19/22 08:43 12/19/22 06:52 Labs: Laboratory Results - last 24 hr 12/19/22 12/19/22 06:52 08:43 MCV 96.1 MCH 31.7 MCHC 33.0 RDW 15.7 Plt Count 197 D MPV 11.1 Absolute Nucleated RBC 0.000 Nucleated RBC % (auto) 0.0 Anion Gap 14 Estim Creat Clear Calc 36.4 Estimated GFR 53 Fasting Glucose 83 Calcium 9.2 Microbiology Microbiology Results: Microbiology 12/16/22 Unknown Urine Culture - Final Urine clean catch - Clean Catch Midstream Proteus mirabilis Assessment and Plan (1) Acute metabolic encephalopathy: Status: Acute Plan 82F PMH CHF with reduce EF, dementia, CAD, copd with bronchiectasis, paroxysmal afib, hld, presented with AMS Acute metabolic encephalopathy and acute hypoxic respiratory failure Multifactorial COPD with acute decompensation - continue bronchodilators aspiration pneumonia - changed to bactrim Acute on chronic systolic CHF - s/p iv lasix, now back on po Lactic acidosis not due to sepsis encephalopathy resolved diarrhea check cdif, stool pcr if negative - imodium uti - proteus id appreciated, changed to bactrim Hypokalemia Replaced r HTN with ? blood pressure readings Labile, performed with automated cuff on leg, accuracy questionable Continue Imdur, metoprolol Coronary disease Aspirin statin Paroxysmal atrial fibrillation Continue metoprolol not on AC due to easy bruising DVT prophylaxis with Lovenox Full code reason for continued hospitalization: watery diarrhea Time Spent With Patient Time: Total time managing care of this patient today ____ minutes. Quality Stroke Does the patient have a stroke diagnosis?: No VTE Prior VTE?: No VTE Risk Level:: Medical - moderate - high VTE Device Contraindication: Treatment Not Indicated VTE Drug Contraindication: N/A - Med Ordered
[2022-12-19] MEDS: Omeprazole 20 MG CAPSULE.DR PO (18:07)
[2022-12-19] MEDS: Atorvastatin Calcium 40 MG TABLET PO (21:09)
[2022-12-19] MEDS: Montelukast Sodium 10 MG TABLET PO (21:10)
[2022-12-19] MEDS: risperiDONE 0.25 MG TABLET PO (21:10)
[2022-12-20 03:53] VITALS: BP 151/74; PULSE 89; RESP 19; TEMP 36.7; O2SAT 96
[2022-12-20] MEDS: Enoxaparin Sodium 40 MG/0.4 ML SYRINGE SUBCUT (05:38)
[2022-12-20] MEDS: Omeprazole 20 MG CAPSULE.DR PO ×2 (05:38→16:31)
[2022-12-20 06:59] LABS: Hematocrit 32.1 % (37.0-47.0); Hemoglobin 10.3 g/dl (12.0-16.0); Mean Corpuscular HGB Conc 32.1 g/dl (31.0-35.0); Mean Corpuscular Hemoglobin 30.9 pg (27.0-33.0); Mean Corpuscular Volume 96.4 fL (80.0-98.0); Mean Platelet Volume 11.1 fL (9.4-12.3); Platelet Count 223 X10*3/uL (160-400); Red Blood Count 3.33 X10*6/uL (4.20-5.50); Red Cell Distribution Width 15.8 % (11.0-16.0); White Blood Count 11.4 X10*3/uL (4.8-10.8)
[2022-12-20 07:21] LABS: Blood Urea Nitrogen 16 mg/dL (9-16); Creatinine Clr Calc Pharmacy 30.6; Estimated Glomerular Filt Rate 43; Glucose Fasting 117 mg/dL (60-99)
[2022-12-20 07:23] VITALS: BP 127/87; PULSE 95; RESP 17; TEMP 36.6; O2SAT 97
[2022-12-20 07:49] LABS: Anion Gap 17 (12-20); Carbon Dioxide 28 mmol/L (22-29); Chloride 98 mmol/L (96-108); Potassium 3.1 mmol/L (3.3-5.1); Sodium 140 mmol/L (135-145)
[2022-12-20] MEDS: Magnesium Oxide 400 MG TABLET 800 MG PO ×2 (09:00→16:31)
[2022-12-20] MEDS: Metoprolol Tartrate 25 MG TABLET PO ×2 (09:00→20:35)
[2022-12-20] MEDS: Isosorbide Mononitrate 30 MG TAB.ER.24H PO (09:00)
[2022-12-20] MEDS: Thiamine HCL 100 MG TABLET PO (09:01)
[2022-12-20] MEDS: oxyBUTYnin chloride ER 5 MG TAB.ER.24 PO (09:01)
[2022-12-20] MEDS: traMADoL HCL 50 MG TABLET 25 MG PO ×2 (09:01→20:35)
[2022-12-20] MEDS: predniSONE 5 MG TABLET PO (09:01)
[2022-12-20] MEDS: Sulfamethox/Trimeth 800/160 TABLET 1 TAB PO ×2 (09:01→21:55)
[2022-12-20] MEDS: Ferrous Sulfate 324 MG TABLET.DR PO (09:01)
[2022-12-20] MEDS: Aspirin Enteric Coated 81 MG TABLET.DR PO (09:01)
--- NOTE | 2022-12-20 10:32 | HO.PM.IMPN ---
Subjective Subjective Date of Service: 12/20/22 Interval History: diarrehea Physical Exam Vital Signs: Vital Signs: Last Vital Signs Temp 97.8 F 12/20/22 07:23 Pulse 95 12/20/22 07:23 Resp 17 12/20/22 07:23 BP 127/87 12/20/22 07:23 Pulse Ox 97 12/20/22 07:23 O2 Del Method Room Air 12/20/22 07:23 O2 Flow Rate 2 12/18/22 08:00 BMI result Body Mass Index 25.2 much more alert, oriented, no resp distress Objective Data Active Medications Acetaminophen (Acetaminophen 325 Mg Tablet) 650 mg PO Q6H PRN PRN Reason: Pain, Mild (Pain Scale 1-3) Last Admin: 12/17/22 19:54 Dose: 650 mg Documented By: WINSTON Aspirin (Aspirin Enteric Coated 81 Mg Tablet.) 81 mg PO DAILY [facility] Last Admin: 12/20/22 09:01 Dose: 81 mg Documented By: TILA Atorvastatin Calcium (Atorvastatin Calcium 40 Mg Tablet) 40 mg PO BEDTIME [facility] Last Admin: 12/19/22 21:09 Dose: 40 mg Documented By: KIESHA Enoxaparin Sodium (Enoxaparin Sodium 40 Mg/0.4 Ml Syringe) 40 mg SUBCUT Q24H [facility] Last Admin: 12/20/22 05:38 Dose: 40 mg Documented By: KIESHA Ferrous Sulfate (Ferrous Sulfate 324 Mg Tablet.) 324 mg PO DAILY [facility] Last Admin: 12/20/22 09:01 Dose: 324 mg Documented By: TILA Fluticasone Propionate (Fluticasone Propionate 100 Mcg Blst.W.Dev) 2 puff INHALE RBID PRN PRN Reason: Shortness Of Breath Or Wheezing Furosemide (Furosemide 40 Mg Tablet) 40 mg PO DAILY [facility]; Protocol Last Admin: 12/20/22 09:23 Dose: Not Given Documented By: TILA Non-Admin Reason: Patient Refused Guaifenesin/Dextromethorphan (Guaifenesin Dm 600/30 1 Tab Tab.Er.12h) 1 tab PO BID PRN PRN Reason: cough Isosorbide Mononitrate (Isosorbide Mononitrate 30 Mg Tab.Er.24h) 30 mg PO DAILY [facility]; Protocol Last Admin: 12/20/22 09:00 Dose: 30 mg Documented By: TIAL Loperamide HCl (Loperamide Hcl 2 Mg Capsule) 2 mg PO Q4H PRN PRN Reason: diarrhea Magnesium Oxide (Magnesium Oxide 400 Mg Tablet) 800 mg PO BIDPC [facility] Last Admin: 12/20/22 09:00 Dose: 800 mg Documented By: TILA Melatonin (Melatonin 3 Mg Tablet) 6 mg PO BEDTIME PRN PRN Reason: Insomnia Last Admin: 12/17/22 19:56 Dose: 6 mg Documented By: WINSTON Metoprolol Tartrate (Metoprolol Tartrate 25 Mg Tablet) 25 mg PO BID [facility]; Protocol Last Admin: 12/20/22 09:00 Dose: 25 mg Documented By: TILA Montelukast Sodium (Montelukast Sodium 10 Mg Tablet) 10 mg PO BEDTIME [facility] Last Admin: 12/19/22 21:10 Dose: 10 mg Documented By: KIESHA Omeprazole (Omeprazole 20 Mg Capsule.Dr) 20 mg PO BID@0630,1630 [facility] Last Admin: 12/20/22 05:38 Dose: 20 mg Documented By: KIESHA Ondansetron HCl (Ondansetron Hcl 4 Mg/2 Ml Vial) 4 mg IVPUSH Q8H PRN PRN Reason: Nausea and Vomiting Oxybutynin Chloride (Oxybutynin Chloride Er 5 Mg Tab.Er.24) 5 mg PO DAILY [facility] Last Admin: 12/20/22 09:01 Dose: 5 mg Documented By: TILA Pharmacy Consult (Consult Rx Perform Med Rec) 1 each MISCELLANE ONCE PRN PRN Reason: Consult order Prednisone (Prednisone 5 Mg Tablet) 5 mg PO DAILY [facility] Last Admin: 12/20/22 09:01 Dose: 5 mg Documented By: TILA Quetiapine Fumarate (Quetiapine Fumarate 25 Mg Tablet) 12.5 mg PO BID PRN PRN Reason: agitation Last Admin: 12/18/22 22:47 Dose: 12.5 mg Documented By: ROSA Risperidone (Risperidone 0.25 Mg Tablet) 0.25 mg PO BEDTIME [facility] Last Admin: 12/19/22 21:10 Dose: 0.25 mg Documented By: KIESHA Sodium Chloride (0.9 % Sodium Chloride Flush 3 Ml Syringe) 3 ml IVFLUSH QSHIFT [facility] Last Admin: 12/20/22 09:36 Dose: Not Given Documented By: TILA Non-Admin Reason: Previously Administered Thiamine HCl (Thiamine Hcl 100 Mg Tablet) 100 mg PO DAILY [facility] Last Admin: 12/20/22 09:01 Dose: 100 mg Documented By: TILA Tramadol HCl (Tramadol Hcl 50 Mg Tablet) 25 mg PO BID [facility] Last Admin: 12/20/22 09:01 Dose: 25 mg Documented By: TILA Trimethoprim/Sulfamethoxazole (Sulfamethox/Trimeth 800/160 Tablet) 1 tab PO Q12H [facility] Last Admin: 12/20/22 09:01 Dose: 1 tab Documented By: TILA Labs 12/20/22 06:09 12/20/22 06:09 Labs: Laboratory Results - last 24 hr 12/19/22 12/19/22 12/19/22 10:00 10:00 14:17 MCV MCH MCHC RDW Plt Count MPV Absolute Nucleated RBC Nucleated RBC % (auto) Anion Gap Estim Creat Clear Calc Estimated GFR Fasting Glucose Calcium Magnesium Nasal Screen MRSA (PCR) POSITIVE A Nasal S. aureus Screen POSITIVE A Nasal MRSA/S.aureus Interp SEE NOTE Stl C. cayetanensis PCR Not Detected Stool Rotavirus A PCR Not Detected Stl Adenov F 40/41 PCR Not Detected Stool Astrovirus (PCR) Not Detected Stool Campylobacter PCR Not Detected Stool Cryptosporidium PCR Not Detected Stl Sh Tox Pr E STEC PCR Not Detected Stool E coli O157 PCR Not applicable Stl Enterotoxigenic E PCR Not Detected Stool EPEC (PCR) Not Detected Stool EAEC (PCR) Not Detected Stl E. histolytica PCR Not Detected Stool Giardia Lamblia PCR Not Detected Stl P. shigelloides PCR Not Detected Stool Salmonella PCR Not Detected Stool Sapovirus (PCR) Not Detected Stl Shigella/EIEC PCR Not Detected St Y.enterocolitica PCR Not Detected Stool Vibrio (PCR) Not Detected Stl Vibrio cholerae PCR Not Detected Stl Norovirus GI/GII PCR Not Detected C. difficile Tox B Gene NEGATIVE 12/20/22 12/20/22 06:09 06:09 MCV 96.4 MCH 30.9 MCHC 32.1 RDW 15.8 Plt Count 223 MPV 11.1 Absolute Nucleated RBC 0.000 Nucleated RBC % (auto) 0.0 Anion Gap 17 Estim Creat Clear Calc 30.6 Estimated GFR 43 Fasting Glucose 117 H Calcium 9.0 Magnesium 2.0 Nasal Screen MRSA (PCR) Nasal S. aureus Screen Nasal MRSA/S.aureus Interp Stl C. cayetanensis PCR Stool Rotavirus A PCR Stl Adenov F 40/41 PCR Stool Astrovirus (PCR) Stool Campylobacter PCR Stool Cryptosporidium PCR Stl Sh Tox Pr E STEC PCR Stool E coli O157 PCR Stl Enterotoxigenic E PCR Stool EPEC (PCR) Stool EAEC (PCR) Stl E. histolytica PCR Stool Giardia Lamblia PCR Stl P. shigelloides PCR Stool Salmonella PCR Stool Sapovirus (PCR) Stl Shigella/EIEC PCR St Y.enterocolitica PCR Stool Vibrio (PCR) Stl Vibrio cholerae PCR Stl Norovirus GI/GII PCR C. difficile Tox B Gene Assessment and Plan (1) Acute metabolic encephalopathy: Status: Acute Plan 82F PMH CHF with reduce EF, dementia, CAD, copd with bronchiectasis, paroxysmal afib, hld, presented with AMS Acute metabolic encephalopathy and acute hypoxic respiratory failure Multifactorial COPD with acute decompensation - continue bronchodilators aspiration pneumonia - changed to bactrim Acute on chronic systolic CHF - s/p iv lasix, now back on po Lactic acidosis not due to sepsis encephalopathy resolved diarrhea cdif, stool pcr negative started imodium uti - proteus id appreciated, changed to bactrim Hypokalemia Replaced r HTN with ? blood pressure readings Labile, performed with automated cuff on leg, accuracy questionable Continue Imdur, metoprolol Coronary disease Aspirin statin Paroxysmal atrial fibrillation Continue metoprolol not on AC due to easy bruising DVT prophylaxis with Lovenox Full code reason for continued hospitalization: watery diarrhea Time Spent With Patient Time: Total time managing care of this patient today ____ minutes. Quality Stroke Does the patient have a stroke diagnosis?: No VTE Prior VTE?: No VTE Risk Level:: Medical - moderate - high VTE Device Contraindication: Treatment Not Indicated VTE Drug Contraindication: N/A - Med Ordered
[2022-12-20] MEDS: Loperamide HCl 2 MG CAPSULE PO (10:45)
[2022-12-20 12:00] VITALS: BP 132/76; PULSE 89; RESP 17; TEMP 36.6; O2SAT 97
[2022-12-20 15:22] VITALS: BP 142/71; PULSE 89; RESP 18; TEMP 36.2; O2SAT 96
[2022-12-20 19:31] VITALS: BP 150/70; PULSE 90; RESP 18; TEMP 36.2; O2SAT 96
[2022-12-20] MEDS: Atorvastatin Calcium 40 MG TABLET PO (20:34)
[2022-12-20] MEDS: Montelukast Sodium 10 MG TABLET PO (20:34)
[2022-12-20] MEDS: risperiDONE 0.25 MG TABLET PO (20:35)
--- NOTE | 2022-12-20 23:50 | PC.NURSE ---
pt had 13 beats of Vtach around 23:35, paged and aware.
[2022-12-21] VITALS (7 sets, daily range): BP systolic 105–154; BP diastolic 68–82; PULSE 74–120; RESP 17–20; TEMP 36.1–36.3; O2SAT 92–96
[2022-12-21 01:03] LABS: Anion Gap 19 (12-20); Blood Urea Nitrogen 12 mg/dL (9-16); Calcium 9.2 mg/dL (8.4-10.2); Carbon Dioxide 23 mmol/L (22-29); Chloride 100 mmol/L (96-108); Creatinine Clr Calc Pharmacy 32.8; Estimated Glomerular Filt Rate 47; Glucose Random 86 mg/dL (60-115); Magnesium 2.2 mg/dL (1.6-2.6); Sodium 138 mmol/L (135-145)
--- NOTE | 2022-12-21 05:24 | PC.NURSE ---
pt was sustaining HR in 120s. Pt asymptomatic and denies SOB, anxiety, feeling heart beating fast. Notified MD, she requested temp which was 97.9 oral. Pts HR then went back to baseline of 90s. aware.
[2022-12-21] MEDS: Omeprazole 20 MG CAPSULE.DR PO (06:35)
[2022-12-21] MEDS: Magnesium Oxide 400 MG TABLET 800 MG PO (10:00)
[2022-12-21] MEDS: oxyBUTYnin chloride ER 5 MG TAB.ER.24 PO (10:01)
[2022-12-21] MEDS: Sulfamethox/Trimeth 800/160 TABLET 1 TAB PO (10:01)
[2022-12-21] MEDS: traMADoL HCL 50 MG TABLET 25 MG PO (10:01)
[2022-12-21] MEDS: Aspirin Enteric Coated 81 MG TABLET.DR PO (10:01)
[2022-12-21] MEDS: Isosorbide Mononitrate 30 MG TAB.ER.24H PO (10:01)
[2022-12-21] MEDS: predniSONE 5 MG TABLET PO (10:02)
[2022-12-21] MEDS: Metoprolol Tartrate 25 MG TABLET PO (10:02)
[2022-12-21] MEDS: Thiamine HCL 100 MG TABLET PO (10:02)
[2022-12-21] MEDS: Ferrous Sulfate 324 MG TABLET.DR PO (10:02)
[2022-12-21] MEDS: Enoxaparin Sodium 40 MG/0.4 ML SYRINGE SUBCUT (10:02)
[2022-12-21] MEDS: levalbuterol HCL 1.25 MG/3 ML VIAL.NEB INHALE ×2 (11:45→14:58)
[2022-12-21] MEDS: Furosemide 40 MG TABLET PO (12:41)
[2022-12-21] MEDS: Nystatin Powder 15 GM BOTTLE 1 APPL TOPICAL (12:41)
--- NOTE | 2022-12-21 15:04 | P.F2F_ITS ---
Service Date Service Date: 12/21/22 Encounter Date of encounter: 12/21/22 Reasons for Services Signs and symptoms assessed: physical deconditioning Reason for longterm: medication management and teach disease management Reason for physical therapy: home safety and mobility and therapeutic exercises Homebound: Leaving the home is medically contraindicated at this time without the asist of a device and/or another person due th the listed conditions above and below. Reason homebound: unsteady gait / fall risk Certification: Based on the above findings, I certify that this patient is confined to the home and needs intermittent longterm care, physical therapy and/or speech therapy, or continues to need occupational therapy. The patient is under my care, and I have initiated the establishment of the plan of care. The patient will be followed by a physician who will periodically review the plan of care. Time Spent With Patient Time: Total time managing care of this patient today ____ minutes.
--- NOTE | 2022-12-21 15:37 | MHC.CM.PN ---
Second IMM 12/21, given verbally to patients daughter Ximena via telephone, and copy placed in chart per her request. Pt medically cleared for D/C home with resumption of PT through [facility], and [facility] nursing with [place] [facility]. April at [facility] notified. Transportation set up via [facility] at 5pm.
--- NOTE | 2022-12-21 15:40 | PM.DS ---
DS: Providers Provider Date of Service: 12/21/22 Date of admission: 12/16/22 06:20 Primary care physician: Monica Arciniega MD Consults: 12/16/22 06:39 Consult to Infectious Diseases Routine Consulting [place] [facility] [place] Reason for consultation: UTI DS: Diagnosis Discharge Diagnosis (1) Acute metabolic encephalopathy: Status: Acute (2) Sepsis due to gram-negative UTI: Status: Acute (3) Acute hypokalemia: Status: Acute (4) Acute alteration in mental status: Status: Acute (5) Atelectasis of right lung: Status: Acute DS: Summary Hospital Course Hospital Course: Admission note HPI This is a 82-year-old female with pertinent history of dementia, COPD, CAD, paroxysmal atrial fibrillation not on anticoagulation, congestive heart failure, VRE UTI, mixed hyperlipidemia was sent to the emergency department for evaluation of altered mentation.? Patient is a poor historian.? History obtained by ER provider and chart review.? Patient was sent as she was combative and confused.? Patient was initiated on Ceftin for questionable UTI about 4-5 days prior to presentation.? Patient states she is feeling unwell.? Unable to obtain review of systems.? Patient was being treated for UTI in the ER when she developed sudden onset of hypoxemia after an episode of elevated blood pressure.? Initiated on Lasix and CPAP by ER provider In the emergency department, urine concerning for UTI Hospital course The patient was admitted for treatment of acute metabolic encephalopathy and acute hypoxic respiratory failure in state of COPD with acute decompensation, CHF exacerbation and aspiration pneumonia as XR of chest showed RLL infiltrate\atelactasis. treated with IV antibiotics changed to PO Bactrim, steroids and bronchodilators nebulizers. encephalopathy was also contributed to the fact of urine infection as culture grew Protues. she was evaluated by ID who recommended PO Bactrim at time of discharge. to finish total 10 days of antibiotics. Acute on chronic systolic CHF treated with IV lasix. changed to PO lasix. evaluated for diarrhea with negative cdiff, and stool pcr. started imodium with good response. Seen by PT team who recommended home PT. Continue Bactrim for 4 more days Take magnesium tablets Imodium as needed for diarrhea Continue rest of home medications come back to ED for any fever, abdominal pain or difficulties breathing. Time Spent with Patient Time attestation: Total time managing care of this patient today ____ minutes. Discharge coordination time: Greater than 30 minutes Quality: Safe Use of Opioids Does Pt have an Active Cancer Diagnosis on the Problem List?: No Quality: Stroke Does the patient have a stroke diagnosis?: No Physical Exam Vital Signs: Vital Signs: Last Vital Signs Temp 97.1 F 12/21/22 15:29 Pulse 74 12/21/22 15:29 Resp 17 12/21/22 15:29 BP 105/68 12/21/22 15:29 Pulse Ox 94 12/21/22 15:29 O2 Del Method Room Air 12/21/22 15:29 O2 Flow Rate 2 12/18/22 08:00 BMI result Body Mass Index 25.2 Const: Other: Constitutional : Awake, interactive, not in distress Neck : Normal inspection, Supple Cardiovascular : RRR, no JVP, no lower extremity edema Respiratory : good bilateral air entry, no crackles, wheezes or rhonchi Gastrointestinal: soft, lax, Normal bowel sounds, Non tender Skin : Warm, Dry, fungal infx in skin folds Neurological : Alert & oriented to self and place, No focal deficit DS: Data Data Completed and Pending Completed studies during hospitalization [Text1]: Procedures Supplement Abdominal Wall with Synthetic Substitute, Open Approach (09/17/22) Transfusion of Nonautologous Red Blood Cells into Peripheral Vein, Percutaneous Approach (04/06/22) Labs on day of discharge: Laboratory Results - last 24 hr 12/21/22 00:40 Sodium 138 Potassium 4.0 D Chloride 100 Carbon Dioxide 23 Anion Gap 19 BUN 12 Creatinine 1.11 Estim Creat Clear Calc 32.8 Estimated GFR 47 Random Glucose 86 Calcium 9.2 Magnesium 2.2 Imaging Chest x-ray: Radiologist's impression: ITS Impressions Chest X-Ray 12/16/22 03:47 IMPRESSION: * Small bilateral pleural effusions and accompanying atelectasis. * Streaky opacity at the right lung base may represent atelectasis or infiltrate, though appears similar to prior. Chest CT 12/16/22 10:06 IMPRESSION: 1. Right lower lobe consolidation with air bronchogram. There is atelectasis/infiltrate right middle lobe and superior segment right lower lobe. 2. Suspect tiny bilateral pleural effusions. 3. Mild cardiomegaly. 4. Compression fractures T8, T9 and T12 vertebra. The T9 and T12 fractures were visualized on the previous CT chest exam 11/02/2022. The T8 fracture was partially visualized and sclerosis along the inferior endplate was noted. Fleischner guidelines were followed. Chest X-Ray 12/20/22 14:20 IMPRESSION: Interval increase in right pleural effusion. Due to the patient's rotation and the increase in right pleural effusion, previously noted opacity at the right lung base is obscured. Probable left basilar atelectasis. Discharge Plan Discharge Anticipated Discharge Date/Time: 12/21/22 14:58 Patient Disposition: Home Health Service Discharge Diagnosis: Urine infection aspiration pneumonia Referrals: [facility]IV[facility] [Outside] - 1 Week Monica Arciniega MD [Primary Care Provider] - 1 Week Discharge Medications: New sulfamethoxazole-trimethoprim 800-160 mg Tablet 1 tab PO Q12H Qty: 8 0RF magnesium oxide 400 mg (241.3 mg magnesium) Tablet 400 mg PO BIDPC Qty: 60 0RF nystatin 100,000 unit/gram Powder 1 appl topical BID Qty: 60 2RF Protocol: Apply to: Apply to: Abdominal Fold loperamide 2 mg Capsule 2 mg PO Q4H PRN (Reason: diarrhea) Qty: 20 0RF Continued ferrous sulfate 325 mg (65 mg iron) tablet 325 mg PO DAILY 0RF (DME) Aerochamber MV Spacer See Rx Instructions .ROUTE .MEDSUPPLY Qty: 1 0RF Rx Instructions: As directed Anoro Ellipta 62.5-25 mcg/actuation blister with device 1 ea inhalation DAILY isosorbide mononitrate 30 mg tablet extended release 24 hr 30 mg PO DAILY thiamine HCl (vitamin B1) 100 mg tablet 100 mg PO DAILY aspirin 81 mg tablet,delayed release (DR/EC) 81 mg PO DAILY pantoprazole 40 mg tablet,delayed release (DR/EC) 40 mg PO BID albuterol sulfate [Ventolin HFA] 90 mcg/actuation HFA aerosol inhaler 2 puff INHALATION Q4-6H PRN (Reason: Shortness Of Breath Or Wheezing) levalbuterol HCl 1.25 mg/3 mL solution for nebulization 1.25 mg inhalation TID torsemide 20 mg tablet 20 mg PO DAILY Qty: 30 0RF metoprolol tartrate 25 mg Tablet 25 mg PO BID 30 Days Qty: 60 0RF Protocol: Hold for SBP/HR < HOLD for SBP < : 90 HOLD for HR < : 60 atorvastatin [Lipitor] 40 mg tablet 40 mg PO BEDTIME Qty: 30 0RF risperidone 0.25 mg tablet 0.25 mg PO BEDTIME fluticasone propionate [Flovent HFA] 110 mcg/actuation HFA aerosol inhaler 2 puff INHALATION BID PRN (Reason: Shortness Of Breath Or Wheezing) docusate sodium 100 mg capsule 100 mg PO DAILY fluticasone propionate 50 mcg/actuation spray,suspension 1 spray intranasal BID Rx Instructions: 1 spray into each nostril montelukast 10 mg tablet 10 mg PO BEDTIME oxybutynin chloride 5 mg tablet extended release 24hr 5 mg PO DAILY tramadol 50 mg tablet 25 mg PO BID (DME) nebulizers Kit See Rx Instructions .ROUTE Rx Instructions: As directed prednisone 5 mg tablet 5 mg PO DAILY 30 Days Qty: 30 4RF Discontinued cefpodoxime 200 mg tablet 200 mg PO Q12H Rx Instructions: END DATE: 12/19/22 Discharge Orders: Discharge Order (Routine); Ordered 12/21/22 Ordered By: Maddy Christiansen Diet: Low salt diet Activity on Discharge: As tolerated Stand Alone Forms: Patient Portal Discharge page Care Plan Goals: Read below Health Concerns: Read below Plan of Treatment: Read below Assessment: You were admitted to the hospital for treatment of urine infection , altered mentation and evidence of aspiration pneumonia. responded well to antibiotics treatment. Continue Bactrim for 4 more days Take magnesium tablets Imodium as needed for diarrhea Continue rest of home medications come back to ED for any fever, abdominal pain or difficulties breathing. Discharge Date/Time: 12/21/22 17:46
--- NOTE | 2022-12-24 08:31 | MHC.CM.PN ---
Patient lives with her Daughter and uses a walker to assist with mobility. Patient is active with [facility] and [facility] for home PT; home/resume said services is the tentative plan. CM will initiate and follow for dc planning. Patient has received Covid vax x4 and PCP is Dr. Monica Arciniega. IMM addressed.
== END 2022-12-21 17:46 | disposition home health service (06) | DRG 190 ==
LOC: HO.ED 12-16 04:09 → HO.EDOVER 12-16 06:26 → HO.IMC 12-16 11:49
PROVIDERS: Internal Medicine; Admitting Provider Student in an Organized Health Care Education/Training Program; Emergency Provider Internal Medicine; PCP Internal Medicine; Visit Provider Student in an Organized Health Care Education/Training Program
DX: J44.1 Chronic obstructive pulmonary disease with (acute) exacerbation (principal); G93.41 Metabolic encephalopathy; J69.0 Pneumonitis due to inhalation of food and vomit; J96.01 Acute respiratory failure with hypoxia; N39.0 Urinary tract infection, site not specified; E87.21 Acute metabolic acidosis; I16.1 Hypertensive emergency; J98.11 Atelectasis; E87.6 Hypokalemia; B96.4 Proteus (mirabilis) (morganii) as the cause of diseases classified elsewhere; D64.9 Anemia, unspecified; I48.0 Paroxysmal atrial fibrillation; I25.10 Atherosclerotic heart disease of native coronary artery without angina pectoris; Z87.440 Personal history of urinary (tract) infections; Z79.51 Long term (current) use of inhaled steroids; Z79.82 Long term (current) use of aspirin; Z79.899 Other long term (current) drug therapy
CPT/HCPCS: 36415; 36600; 71045; 71250; 80048; 80053; 81001; 82803; 83605; 83735; 83880; 85025; 85027; 87040; 87086; 87088; 87186; 87493; 87507; 87640; 87641; 93005; 94640; 94660; 97162; 99285; J0290; J1650; J1940; J2020; J2060; J2185; J2270

== ENCOUNTER → 2022-12-16 06:20 | Outpatient (BNV) | payer OTHER, SELFPAY | PROVIDERS: Admitting Provider Student in an Organized Health Care Education/Training Program; Emergency Provider Internal Medicine; PCP Internal Medicine; Visit Provider Student in an Organized Health Care Education/Training Program | DX: G93.41 Metabolic encephalopathy (principal); A41.50 Gram-negative sepsis, unspecified; N39.0 Urinary tract infection, site not specified; E87.6 Hypokalemia; R41.82 Altered mental status, unspecified; J98.11 Atelectasis | CPT/HCPCS: 99222; 99232; 99233; 99239; 99499; G0180 ==

== ENCOUNTER 2022-12-23 10:57 | Inpatient (IN) | payer OTHER, SELFPAY ==
[2022-12-23] VITALS (9 sets, daily range): BP systolic 109–157; BP diastolic 49–77; PULSE 80–124; RESP 16–32; TEMP 36.1–36.8; O2SAT 86–99; BMI 28.1; BMI 24.0
--- NOTE | ~2022-12-23 | CT_ITS ---
EXAMINATION: CT CHEST WITHOUT CONTRAST CLINICAL INFORMATION: Worsening right pleural effusion. Question consolidation. COMPARISON: Chest CT from 12/16/2022. TECHNIQUE: Multidetector volumetric CT imaging of the chest was done. Axial MIP volume rendering provided. Sagittal and coronal reformatted images were obtained. This CT examination was performed using dose optimization techniques as appropriate, variously including the following: *Automated exposure control *Adjustment of mA and/or kV according to patient size (this includes techniques or standardized protocols for targeted exams where dose is matched to indication/reason for exam; i.e. extremities or head) *Use of iterative reconstruction technique DLP: 309 mGy-cm FINDINGS: LUNGS AND PLEURA: Compared to 12/16/2022, there is interval worsening of mucous plugging of right middle and right lower lobe bronchi and increased secretions are present within the right mainstem bronchus. The right lower lobe has become completely collapsed. Small right pleural effusion has slightly increased in size. No pneumothorax. Small left pleural effusion is slightly larger compared to the prior exam. There appears to be passive atelectasis in the dependent aspect of the left lower lobe. Mild atelectasis also present in the lingula along the major fissure. CARDIOVASCULAR: Cardiomegaly with prominent left atrium. Atherosclerotic calcification of coronary arteries, status post coronary artery bypass graft surgery. The mild subendocardial fat attenuation at the apex of the left ventricles consistent with remote myocardial infarction. Thoracic aorta atherosclerosis without aneurysm. Pulmonary artery trunk is normal in size. MEDIASTINUM AND LOWER NECK: No mediastinal mass. The esophagus and thyroid gland are grossly unremarkable. LYMPHATICS: No pathologic sized lymph nodes. UPPER ABDOMEN: Adrenal glands are normal. Cholecystectomy. Atherosclerotic calcification of the visualized abdominal aorta, splenic artery and SMA. SKELETAL AND CHEST WALL: No acute findings within the chest wall. 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 Several old healed bilateral rib fractures are noted. The sternotomy is healed. CT/CT chest wo IV con IMPRESSION: * Interval development of complete collapse of the right lower lobe and occlusive secretions are present within the right lower lobe bronchi. This examination would not exclude any superimposed pneumonia within the collapsed lower lobe. * Also, there is mucous plugging of central bronchi of the right middle lobe with middle lobe atelectasis. * Small bilateral pleural effusions (right larger than left) have slightly increased in size since 12/16/2022. * Cardiomegaly without acute pulmonary edema.
--- NOTE | ~2022-12-23 | XR_ITS ---
EXAMINATION: XR CHEST CLINICAL INFORMATION: Hypoxia and left lower extremity crackles COMPARISON: 12/20/2022 TECHNIQUE: Frontal view of the chest was obtained. FINDINGS: The patient is slightly rotated into a left anterior oblique position. Lungs are mildly hypoinflated. Persistent linear opacity of mild atelectasis at the left base. Moderate right pleural effusion is slightly larger compared to 12/20/2022 and there is associated opacity from passive atelectasis and/or consolidation in the right lung base. Cardiomegaly. Sternotomy wires are intact. No overt pulmonary edema. Osteoarthritis is mild at the left glenohumeral joint, severe at the right glenohumeral joint, and an osteochondral body projects anteromedial to the degenerated right glenohumeral joint. Multilevel osteophyte formation of the spine. A few old healed rib fractures are noted. XR/XR chest 1V IMPRESSION: * Cardiomegaly without overt pulmonary edema. * Moderate right pleural effusion and associated atelectasis or consolidation in the right lung base. The right basilar opacity has worsened compared to 12/20/2022.
--- NOTE | ~2022-12-23 | XR_ITS ---
EXAMINATION: XR CHEST CLINICAL INFORMATION: Follow-up mucus plugging. Shortness of breath. COMPARISON: Previous chest x-ray most recent from yesterday and chest CT December 2022 TECHNIQUE: Frontal view of the chest was obtained. FINDINGS: The cardiac silhouette is enlarged but stable. Post-CABG changes are seen. There is improved aeration of the right lower lobe. The lungs are otherwise clear. There is a small to moderate right pleural effusion and small left pleural effusion that are unchanged. No pneumothorax. Periarticular ossification adjacent to the right shoulder. XR/XR chest 1V IMPRESSION: Improved aeration of the right lower lobe. Small bilateral pleural effusions, right greater than left are table enlargement of the cardiac silhouette.
--- NOTE | ~2022-12-23 | XR_ITS ---
EXAMINATION: XR CHEST CLINICAL INFORMATION: Follow-up atelectasis and effusion. COMPARISON: 12/23/2022 chest radiograph. TECHNIQUE: Frontal view of the chest was obtained. FINDINGS: Small to moderate right pleural effusion represents mild interval decrease. Mild left basilar linear markings. The heart and mediastinal structures are unchanged. Multilevel sternotomy wires are intact. XR/XR chest 1V IMPRESSION: Small to moderate pleural effusion represents mild interval improvement from the previous study.
--- NOTE | ~2022-12-23 | XR_ITS ---
EXAMINATION: XR CHEST CLINICAL INFORMATION: Follow-up atelectasis. COMPARISON: 12/25/2022 TECHNIQUE: Frontal view of the chest was obtained. FINDINGS: The lungs are moderately expanded. Stable moderate right pleural effusion with right basilar consolidation. Cardiac silhouette is unchanged. XR/XR chest 1V IMPRESSION: Stable examination.
--- NOTE | 2022-12-23 11:07 | ECG_ITS ---
Test Reason : sob Blood Pressure : / mmHG Vent. Rate : 104 BPM Atrial Rate : 250 BPM P-R Int : 000 ms QRS Dur : 084 ms QT Int : 352 ms P-R-T Axes : 000 022 180 degrees QTc Int : 462 ms Atrial flutter with variable A-V block Anterior infarct (cited on or before 23-DEC-2022) ST & T wave abnormality, consider lateral ischemia Abnormal ECG When compared with ECG of 15-DEC-2022 22:35, Vent. rate has increased BY 36 BPM Serial changes of evolving Anterior infarct Present Referred By: Elli Kline Electronically Signed By:MAKEDA BREAUX MD
--- NOTE | 2022-12-23 11:09 | ED_ITS ---
HPI - SOB/Dyspnea General Chief Complaint: Dyspnea Stated Complaint: SOB, on CPAP per EMS Time Seen by Provider: 12/23/22 11:06 Source: patient, EMS and old records reviewed Mode of arrival: EMS Limitations: other (poor historian) History of Present Illness HPI Narrative: 82 y/o female with history of dementia, chronic hypoxic respiratory failure on 1L NC, COPD, recurrent UTIs (hx VRE), aflutter/afib (not on anticoagulation), aspiration pneumonia (hx Pseudomonas PNA), CHF with ischemic cardiomyopathy EF 35-40% and recent admission to [facility] [place] 12/16 - 12/21 for AMS due to UTI (discharged on PO bactrim) who presents to the ER from home via EMS for evalaution of SOB and increased WOB. Patient lives at home with her daughter. EMS reports patient has been SOB since discharge and it has been worsening. Daughter reports she was not ready for discharge. She was tachycardic and SOB when she got home. She has been compliant with her home meds and abx. Patient reports she has episodes of SOB and difficultly breathing that come and go. She feels like things are stuck in her chest and throat. Chronically productive cough of yellow phlegm. No fevers at home. MD elicited complaint: shortness of breath Pertinent past history: COPD and congestive heart failure Context: recent illness Timing: progressively worsening Severity: moderate Relieving factors: oxygen, upright position and other (CPAP) Known history of: COPD and congestive heart failure Associated symptoms: abdominal pain (due to bruising) Treatment prior to arrival: oxygen and NIPPV Related Data Home oxygen amount: 1 liter Home Medications Medication Instructions Recorded Confirmed docusate sodium 100 mg capsule 100 mg PO DAILY 03/22/22 12/23/22 fluticasone propionate 50 1 spray intranasal BID 03/22/22 12/23/22 mcg/actuation nasal spray,suspension montelukast 10 mg tablet 10 mg PO BEDTIME 03/22/22 12/23/22 nebulizers 03/22/22 07/04/22 oxybutynin chloride 5 mg 5 mg PO DAILY 03/22/22 12/23/22 tablet,extended release 24 hr tramadol 50 mg tablet 25 mg PO BID 03/22/22 12/23/22 umeclidinium 62.5 mcg-vilanterol 1 ea inhalation DAILY 05/24/22 12/23/22 25 mcg/actuation powdr for inhalation (Anoro Ellipta) albuterol sulfate 90 mcg/actuation 2 puff inhalation Q4-6H PRN 11/02/22 12/23/22 aerosol inhaler (Ventolin HFA) Shortness Of Breath Or Wheezing aspirin 81 mg tablet,delayed 81 mg PO DAILY 11/02/22 12/23/22 release isosorbide mononitrate 30 mg 30 mg PO DAILY 11/02/22 12/23/22 tablet,extended release 24 hr levalbuterol HCl 1.25 mg/3 mL 1.25 mg inhalation TID 11/02/22 12/23/22 solution for nebulization pantoprazole 40 mg tablet,delayed 40 mg PO BID 11/02/22 12/23/22 release thiamine HCl (vitamin B1) 100 mg 100 mg PO DAILY 11/02/22 12/23/22 tablet fluticasone propionate 110 2 puff inhalation BID PRN 12/16/22 12/23/22 mcg/actuation HFA aerosol inhaler Shortness Of Breath Or Wheezing (Flovent HFA) risperidone 0.25 mg tablet 0.25 mg PO BEDTIME 12/16/22 12/23/22 Previous Rx's Medication Instructions Recorded ferrous sulfate 325 mg (65 mg 325 mg PO DAILY 09/28/22 iron) tablet prednisone 5 mg tablet 5 mg PO DAILY 30 days #30 tabs 10/03/22 inhalational spacing device #1 ea 10/07/22 (Aerochamber MV spacer) atorvastatin 40 mg tablet (Lipitor) 40 mg PO BEDTIME #30 tabs 10/10/22 torsemide 20 mg tablet 20 mg PO DAILY #30 tabs 11/09/22 metoprolol tartrate 25 mg tablet 25 mg PO BID 30 days #60 tabs 11/11/22 loperamide 2 mg capsule 2 mg PO Q4H PRN diarrhea #20 caps 12/21/22 magnesium oxide 400 mg (241.3 mg 400 mg PO BIDPC #60 tabs 12/21/22 magnesium) tablet nystatin 100,000 unit/gram topical 1 appl topical BID #60 grams 12/21/22 powder sulfamethoxazole 800 1 tab PO Q12H #8 tabs 12/21/22 mg-trimethoprim 160 mg tablet Allergies Allergy/AdvReac Type Severity Reaction Status Date / Time carvedilol Allergy Shortness Verified 10/04/22 14:13 of Breath sertraline [From Zoloft] Allergy Shortness Verified 10/04/22 14:13 of Breath spironolactone Allergy Shortness Verified 10/04/22 14:13 of Breath adhesive tape AdvReac Severe skin tears Verified 12/20/22 13:43 mirtazapine AdvReac Severe psychotic Verified 12/16/22 08:03 episode Review of Systems Review of Systems: Yes all other systems are reviewed and are negative [facility] Past Medical History Medical History A-fib Acute encephalopathy Acute hypokalemia Acute respiratory failure with hypoxia Anemia Anemia Aspiration pneumonia Atelectasis of right lung Atrial fibrillation with RVR Atrial flutter Bronchiectasis CAD (coronary artery disease) Chronic dyspnea Congestive heart failure COPD (chronic obstructive pulmonary disease) COPD (chronic obstructive pulmonary disease) Dyspnea Encephalopathy chronic GI bleed Heart failure History of infection with vancomycin resistant Enterococcus (VRE) Paroxysmal A-fib Pseudomonal pneumonia Pseudomonas respiratory infection Pulmonary nodules Pyuria Surgical History H/O umbilical hernia repair (09/18/22) History of cholecystectomy History of hip replacement History of knee replacement History of quadruple bypass Family History Family History Other No family history of cancer Social History Social History Household Members: Family and Caregiver Housing: House Are you a primary healthcare advisory services manager to a significant other at home: No Do you presently have visiting nurse or other home services: Yes Alcohol intake: never Patient Tobacco Use Status: Never used Tobacco Tobacco use type: Cigarette Smoked in Last 30 Days: No Use of substances other than those prescribed or required for medical reasons: No Advance Directives: Yes Advance Directives on File: Yes Advance Directives Date on File: 08/24/22 service: No Current occupational status: retired Physical Exam Vital Signs: Vital Signs: Last Vital Signs Temp 98.2 F 12/23/22 11:07 Pulse 112 H 12/23/22 11:07 Resp 26 H 12/23/22 11:07 BP 123/58 L 12/23/22 11:07 Pulse Ox 86 L 12/23/22 11:07 O2 Del Method Nasal Cannula 12/23/22 11:07 Oxygen Flow Rate 4 12/23/22 11:07 BMI result Body Mass Index 28.1 Appearance: Alert. Oriented X3. Mild respiratory distress. Head: normocephalic, atraumatic. Eyes: Pupils equal, round and reactive to light. ENT: No dentition. Pharynx normal. No tonsillar swelling or exudate. Neck: Normal inspection. Neck supple. CVS: Normal heart rate and rhythm. Pulses normal. Respiratory: Mild respiratory distress, RR low 20s. Breath sounds diminished at right base and crackles in the left base. Abdomen: Soft with lower abdominal tenderness over ecchymotic areas. +BS x4 Skin: Skin warm and dry. Diffuse scattered ecchymossi on the extremities and abdomen. Normal skin turgor. No rashes. Extremities: No lower extremity edema. No joint swelling. Neuro/psych: Oriented X 3. No motor deficit. No sensory deficit. CN II-XII intact. Normal speech and cognition. Medications Administered Discontinued Medications Generic Name Dose Route Start Last Admin Trade Name Freq PRN Reason Stop Dose Admin Piperacillin Sod/Tazobactam 100 mls @ 200 mls/hr 12/23/22 11:37 12/23/22 12:17 Sod 4.5 gm/ Sodium Chloride IV 12/23/22 12:06 200 mls/hr ONCE ONE Administration Medical Decision Making Medical Decision Making MDM Narrative: 82 y/o female with history of dementia, chronic hypoxic respiratory failure on 1L NC, COPD, recurrent UTIs (hx VRE), aflutter/afib (not on anticoagulation), aspiration pneumonia (hx Pseudomonas PNA), CHF with ischemic cardiomyopathy EF 35-40% and recent admission to [facility] [place] 12/16 - 12/21 for AMS due to UTI (discharged on PO bactrim) who presents to the ER from home via EMS for evalaution of SOB and increased WOB. Requiring rescue CPAP for EMS due to WOB and accessory muscle use, was reportedly wheezy throughout. On arrival to the ER patient was able to be placed on nasal cannula, titrated up to 6L NC to maintain sats 90%. No significant increased WOB or wheezing on exam. CXR reviewed - worsening right sided effusion vs infiltrate vs atectasis vs mucus plugging. Bedside U/S showing more of a consolidative process. very small pleural effusion appreciated (done w/ Dr. Marte) Patient ordered for IV vanco (hx MRSA PCR +) and IV Zosyn (HX asp PNA). SPo2 weaned from 6L ot 4L, maintaining saturation of 90%. holding off on IVF given concern for acute CHF BNP 1000 which is significantly higher than her baseline. IV lasix ordered. will admit for further management. Differential Diagnosis Differential Diagnoses: The differential diagnosis associated with the presentation includes acute CHF exacerbation, acute COPD exacerbation, aspiration pneumonia, Hcap, mucus plugging, atelectasis, pneumothorax Admission/Observation Consideration of admission/observation: Escalation of care including admission/observation considered acute on chronic hypoxic resp failure Consult Healthcare Provider Management of the patient was discussed with: Hospitalist Lab Data MDM Lab Attestation statement: I reviewed the patient's lab results. troponin elevation likely due to demand, no acute ischemic ekg changes no leukocytosis BNP 1000, sig increased from baseline c/w acute chf 12/23/22 11:53 12/23/22 11:53 Labs: Lab Results 12/23/22 12/23/22 12/23/22 Range/Units 11:53 11:53 11:53 WBC 10.4 (4.8-10.8) X10*3/uL RBC 3.03 L (4.20-5.50) X10*6/uL Hgb 9.5 L (12.0-16.0) g/dl Hct 30.7 L (37.0-47.0) % MCV 101.3 H (80.0-98.0) fL MCH 31.4 (27.0-33.0) pg MCHC 30.9 L (31.0-35.0) g/dl RDW 16.0 (11.0-16.0) % Plt Count 207 (160-400) X10*3/uL MPV 11.0 (9.4-12.3) fL Immature Gran % (Auto) 0.5 H (0.0-0.4) % Neut % (Auto) 81.8 H (45-73) % Lymph % (Auto) 9.6 L (20-40) % Hendry % (Auto) 5.4 (2-11) % Eos % (Auto) 1.8 (0-4) % Baso % (Auto) 0.9 (0-2) % Lymph # (Auto) 1.0 L (1.2-4.9) X10*3/uL Hendry # (Auto) 0.6 (0.1-1.2) X10*3/uL Eos # (Auto) 0.2 (0.0-0.4) X10*3/uL Baso # (Auto) 0.1 (0.0-0.2) X10*3/uL Abs Immat Gran (auto) 0.05 H (0.00-0.03) X10*3/uL Absolute Neuts (auto) 8.5 H (2.0-8.3) x10*3/uL Absolute Nucleated RBC 0.000 (0.0-0.012) X10*3/uL Nucleated RBC % (auto) 0.0 (0.0-0.2) /100WBC Sodium 135 (135-145) mmol/L Potassium 4.2 (3.3-5.1) mmol/L Chloride 98 (96-108) mmol/L Carbon Dioxide 26 (22-29) mmol/L Anion Gap 15 (12-20) BUN 14 (9-16) mg/dL Creatinine 1.25 (0.5-1.4) mg/dL Estim Creat Clear Calc 27.0 Estimated GFR 41 Random Glucose 118 H (60-115) mg/dL Lactic Acid (0.5-2.0) mmol/L Calcium 9.1 (8.4-10.2) mg/dL Magnesium 2.5 (1.6-2.6) mg/dL Total Bilirubin 1.1 H (0.0-1.0) mg/dL Direct Bilirubin 0.4 (0.0-0.5) mg/dL AST 58 H (5-31) U/L ALT 51 H (0-31) U/L Alkaline Phosphatase 163 H (39-117) U/L Troponin I High Sens 60.7 H* (<3.5-17.0) ng/L B-Natriuretic Peptide (<100) pg/mL Total Protein 6.6 (6.5-8.0) g/dL Albumin 3.2 L (3.5-5.0) g/dL Procalcitonin 0.13 ng/mL COVID-19 ([facility]) (Negative) COVID-19 Clin Com 12/23/22 12/23/22 12/23/22 Range/Units 11:53 11:53 12:48 WBC (4.8-10.8) X10*3/uL RBC (4.20-5.50) X10*6/uL Hgb (12.0-16.0) g/dl Hct (37.0-47.0) % MCV (80.0-98.0) fL MCH (27.0-33.0) pg MCHC (31.0-35.0) g/dl RDW (11.0-16.0) % Plt Count (160-400) X10*3/uL MPV (9.4-12.3) fL Immature Gran % (Auto) (0.0-0.4) % Neut % (Auto) (45-73) % Lymph % (Auto) (20-40) % Hendry % (Auto) (2-11) % Eos % (Auto) (0-4) % Baso % (Auto) (0-2) % Lymph # (Auto) (1.2-4.9) X10*3/uL Hendry # (Auto) (0.1-1.2) X10*3/uL Eos # (Auto) (0.0-0.4) X10*3/uL Baso # (Auto) (0.0-0.2) X10*3/uL Abs Immat Gran (auto) (0.00-0.03) X10*3/uL Absolute Neuts (auto) (2.0-8.3) x10*3/uL Absolute Nucleated RBC (0.0-0.012) X10*3/uL Nucleated RBC % (auto) (0.0-0.2) /100WBC Sodium (135-145) mmol/L Potassium (3.3-5.1) mmol/L Chloride (96-108) mmol/L Carbon Dioxide (22-29) mmol/L Anion Gap (12-20) BUN (9-16) mg/dL Creatinine (0.5-1.4) mg/dL Estim Creat Clear Calc Estimated GFR Random Glucose (60-115) mg/dL Lactic Acid 1.7 (0.5-2.0) mmol/L Calcium (8.4-10.2) mg/dL Magnesium (1.6-2.6) mg/dL Total Bilirubin (0.0-1.0) mg/dL Direct Bilirubin (0.0-0.5) mg/dL AST (5-31) U/L ALT (0-31) U/L Alkaline Phosphatase (39-117) U/L Troponin I High Sens (<3.5-17.0) ng/L B-Natriuretic Peptide 1014 H (<100) pg/mL Total Protein (6.5-8.0) g/dL Albumin (3.5-5.0) g/dL Procalcitonin ng/mL COVID-19 ([facility]) Negative (Negative) COVID-19 Clin Com See Note Independent Interpretation I performed an independent interpretation of an: EKG and Plain X-Ray Interpretation: cxr - significant increased in right sided infiltrate vs pleural effusion ekg w/ aflutter, HR 104 bpm, no st segment elevations or depressions Radiology Impression Discussion of test interpretation with radiology: I have reviewed the radiolog ist's reading. Radiologist Impression: XR/XR chest 1V IMPRESSION: *? Cardiomegaly without overt pulmonary edema. *? Moderate right pleural effusion and associated atelectasis or consolidation in the right lung base. The right basilar opacity has worsened compared to 12/20/2022. Independent Historian Clinical information obtained from an independent historian. History obtained from or confirmed by: EMS External Record Review External record reviewed: Inpatient record, Office record, Outpatient record, Prior outpatient labs and Prior outpatient radiology Tests considered The following testing was considered but not selected: ABG/VBG considered - not done as patient awake and alert, no history of CO2 retention. good wave form CT chest considered - one was just done a few days ago. will diurese and repeat imaging once inpatient Prescription Management I considered prescription management with: Antibiotic Chronic Conditions Patient?s care impacted by: Other (COPD, CHF) Social Determinants Patient?s care significantly limited by Social Determinants of Health including: Other Social Determinant of Health Critical Care Time Critical Care Time Critical Care Time: Yes Total Critical Care Time: 58 Attestation: I have personally provided critical care time exclusive of time spent on separ ately billable procedures. Time includes review of lab data, radiology results, discussion with consultants, and monitoring for potential decompensation. Intervention performed as documented. Discharge Plan Discharge Clinical Impression: Acute and chronic respiratory failure with hypoxia, Acute exacerbation of congestive heart failure, Right lower lobe pneumonia Patient Disposition: Admitted As Inpatient
[2022-12-23 12:01] LABS: MANUAL DIFF FLAG NO
[2022-12-23 12:03] LABS: Basophils Absolute Auto 0.1 X10*3/uL (0.0-0.2); Basophils Percent Auto 0.9 % (0-2); Eosinophils Absolute Auto 0.2 X10*3/uL (0.0-0.4); Eosinophils Percent Auto 1.8 % (0-4); Hematocrit 30.7 % (37.0-47.0); Hemoglobin 9.5 g/dl (12.0-16.0); Imm Gran Abs Auto 0.05 X10*3/uL (0.00-0.03); Imm Gran Pct Auto 0.5 % (0.0-0.4); Lymphocytes Percent Auto 9.6 % (20-40); Mean Corpuscular HGB Conc 30.9 g/dl (31.0-35.0); Mean Corpuscular Hemoglobin 31.4 pg (27.0-33.0); Mean Corpuscular Volume 101.3 fL (80.0-98.0); Monocytes Absolute Auto 0.6 X10*3/uL (0.1-1.2); Monocytes Percent Auto 5.4 % (2-11); Neutrophils Absolute Auto 8.5 x10*3/uL (2.0-8.3); Neutrophils Percent Auto 81.8 % (45-73); Platelet Count 207 X10*3/uL (160-400); Red Blood Count 3.03 X10*6/uL (4.20-5.50); White Blood Count 10.4 X10*3/uL (4.8-10.8)
[2022-12-23] MEDS: Piperacillin Sodium/Tazobactam 4.5 GM in 0.9 % Sodium Chloride 100 ML IV (12:17)
[2022-12-23 12:22] LABS: COVID-19 Test Negative (Negative); IDNOW Serial# 08D9AD1C
[2022-12-23 12:43] LABS: B Type Natriuretic Peptide 1014 pg/mL (<100)
[2022-12-23 12:50] LABS: Alanine Aminotransferase 51 U/L (0-31); Albumin Level 3.2 g/dL (3.5-5.0); Alkaline Phosphatase 163 U/L (39-117); Anion Gap 15 (12-20); Aspartate Amino Transferase 58 U/L (5-31); Bilirubin Direct 0.4 mg/dL (0.0-0.5); Bilirubin Total 1.1 mg/dL (0.0-1.0); Blood Urea Nitrogen 14 mg/dL (9-16); Calcium 9.1 mg/dL (8.4-10.2); Carbon Dioxide 26 mmol/L (22-29); Chloride 98 mmol/L (96-108); Estimated Glomerular Filt Rate 41; Glucose Random 118 mg/dL (60-115); Magnesium 2.5 mg/dL (1.6-2.6); Potassium 4.2 mmol/L (3.3-5.1); Sodium 135 mmol/L (135-145); Total Protein 6.6 g/dL (6.5-8.0)
[2022-12-23 12:52] LABS: Troponin-I High Sensitivity 60.7 ng/L (<3.5-17.0)
[2022-12-23 13:02] LABS: Procalcitonin 0.13 ng/mL
[2022-12-23 13:04] LABS: Lactic Acid 1.7 mmol/L (0.5-2.0)
--- NOTE | 2022-12-23 13:09 | PHA.MEDREC ---
Pharmacy Consult ? Medication Reconciliation Pharmacy has completed the medication reconciliation. Spoke to patient's daughter to confirm meds. Patient's daughter states that no changes to meds were made outside of discharge on 12/21/22. Used discharge packet.
[2022-12-23] MEDS: vancomycin HCL 1,500 MG in 0.9 % Sodium Chloride 500 ML 333.33 MG IV (13:23)
[2022-12-23] MEDS: Furosemide 100 MG/10 ML VIAL 60 MG IVPUSH (13:24)
--- NOTE | 2022-12-23 14:10 | P.HPHOSP_ITS ---
History of Present Illness Date of Service: 12/23/22 Attending physician on admission: Damaso Batista Chief Complaint: SOB, wheezing Pt is an 82-year-old female with a PMH significant for?COPD, CAD, paroxysmal AFib not on anticoagulation, dementia, VRE UTI, HLD, hx of Pseudomonas pneumonia from aspiration previously on inhaled tobramycin, and HFrEF who presents from home to the ED with?worsening SOB and cough. Pt was discharged two days prior from the hospital where she was being treated for metabolic encephalopathy in the setting of UTI, discharged home on 4 days of Bactrim. Since discharge patient states she has been experiencing increased shortness of breath and wheezing. Patient lives with her daughter who notes pt was tachycardic and hypoxic yesterday. Patient has supplemental O2 at home p.r.n. but has never needed it until last night. Pt had difficulty sleeping last night and was up most of the night coughing. This morning pt was worse and EMS was called. Patient was placed on CPAP by EMS due to hypoxia and accessory muscle use. Patient denies chest pain/pressure, palpitations. No fever, chills, nausea, vomiting, diarrhea, abdominal pain. In the ED patient was afebrile but tachycardic up to 118 D, tachypneic up to 32, and satting at 86% on 4L NC. Labs were significant for stable H&H of 9.5/30.7, MCV 101.3, AST 58, ALT 51, alk-phos of 163, initial troponin is 60.7, BNP of 1014. Electrolytes WNL. CXR showed moderate right pleural effusion and associated atelectasis or consolidation in the right lung base, worse than 3 days prior on 12/20/2022. CT?of chest pending. EKG demonstrated a flutter with variable AV block and ST and T-wave abnormalities. Pt was treated with vanc and Zosyn, and IV Lasix 60 mg. Pt will be admitted to the hospital for treatment further evaluation of acute hypoxic respiratory failure in setting of aspiration pneumonia and CHF ex acerbation. Review of Systems Review of Systems: SOB Cough Hypoxia Weakness Wheeziness Denies chest pain/pressure, palpitations No fever, chills, nausea, vomiting, abdominal pain Yes all other systems are reviewed and are negative [facility] Medical History A-fib Acute encephalopathy Acute hypokalemia Acute respiratory failure with hypoxia Anemia Anemia Aspiration pneumonia Atelectasis of right lung Atrial fibrillation with RVR Atrial flutter Bronchiectasis CAD (coronary artery disease) Chronic dyspnea Congestive heart failure COPD (chronic obstructive pulmonary disease) COPD (chronic obstructive pulmonary disease) Dyspnea Encephalopathy chronic GI bleed Heart failure History of infection with vancomycin resistant Enterococcus (VRE) Paroxysmal A-fib Pseudomonal pneumonia Pseudomonas respiratory infection Pulmonary nodules Pyuria Family History Other No family history of cancer Surgical History H/O umbilical hernia repair (09/18/22) History of cholecystectomy History of hip replacement History of knee replacement History of quadruple bypass Social History Household Members: Children Housing: House Are you a primary hospice care transitions coordinator to a significant other at home: No Do you presently have visiting nurse or other home services: Yes (pt cannot recall what services specifically but reports has services) Alcohol intake: never Patient Tobacco Use Status: Never used Tobacco Tobacco use type: Cigarette Smoked in Last 30 Days: No Use of substances other than those prescribed or required for medical reasons: No Currently Displaying Signs/Symptoms of Drug Intoxication Withdrawal: No Advance Directives: Yes Advance Directives on File: Yes Advance Directives Date on File: 08/24/22 Do you have thoughts of harming others: None Do you have a plan to hurt others: No Plan Recently lost weight without trying: Unsure Nutrition Risks: On aspiration precautions Patient : No service: No Current occupational status: retired [employer] Allergies Allergy/AdvReac Type Severity Reaction Status Date / Time carvedilol Allergy Shortness Verified 10/04/22 14:13 of Breath sertraline [From Zoloft] Allergy Shortness Verified 10/04/22 14:13 of Breath spironolactone Allergy Shortness Verified 10/04/22 14:13 of Breath adhesive tape AdvReac Severe skin tears Verified 12/20/22 13:43 mirtazapine AdvReac Severe psychotic Verified 12/16/22 08:03 episode Active Medications: Current Medications Pharmacy Consult (Consult Rx Perform Med Rec) 1 each MISCELLANE ONCE PRN PRN Reason: Consult order Home Medications Medication Instructions Recorded Confirmed Last Taken Type docusate sodium 100 mg capsule 100 mg PO DAILY 03/22/22 12/23/22 12/22/22 History fluticasone propionate 50 1 spray intranasal BID 03/22/22 12/23/22 12/22/22 History mcg/actuation nasal spray,suspension montelukast 10 mg tablet 10 mg PO BEDTIME 03/22/22 12/23/22 12/22/22 History nebulizers 03/22/22 07/04/22 Unknown History oxybutynin chloride 5 mg 5 mg PO DAILY 03/22/22 12/23/22 12/22/22 History tablet,extended release 24 hr tramadol 50 mg tablet 25 mg PO BID 03/22/22 12/23/22 12/22/22 History umeclidinium 62.5 mcg-vilanterol 1 ea inhalation DAILY 05/24/22 12/23/22 12/22/22 History 25 mcg/actuation powdr for inhalation (Anoro Ellipta) albuterol sulfate 90 mcg/actuation 2 puff inhalation Q4-6H PRN 11/02/22 12/23/22 Unknown History aerosol inhaler (Ventolin HFA) Shortness Of Breath Or Wheezing aspirin 81 mg tablet,delayed 81 mg PO DAILY 11/02/22 12/23/22 12/22/22 History release isosorbide mononitrate 30 mg 30 mg PO DAILY 11/02/22 12/23/22 12/22/22 History tablet,extended release 24 hr levalbuterol HCl 1.25 mg/3 mL 1.25 mg inhalation TID 11/02/22 12/23/22 12/22/22 History solution for nebulization pantoprazole 40 mg tablet,delayed 40 mg PO BID 11/02/22 12/23/22 12/22/22 History release thiamine HCl (vitamin B1) 100 mg 100 mg PO DAILY 11/02/22 12/23/22 12/22/22 History tablet fluticasone propionate 110 2 puff inhalation BID PRN 12/16/22 12/23/22 Unknown History mcg/actuation HFA aerosol inhaler Shortness Of Breath Or Wheezing (Flovent HFA) risperidone 0.25 mg tablet 0.25 mg PO BEDTIME 12/16/22 12/23/22 12/22/22 History Physical Exam Vital Signs and Narrative: Vital Signs: Last Vital Signs Temp 98.2 F 12/23/22 13:10 Pulse 118 H 12/23/22 13:22 Resp 32 H 12/23/22 13:22 BP 157/71 H 12/23/22 13:26 Pulse Ox 99 12/23/22 13:22 O2 Del Method Nasal Cannula 12/23/22 13:22 O2 Flow Rate 3 12/23/22 13:22 Oxygen Flow Rate 4 12/23/22 11:07 BMI result Body Mass Index 28.1 Constitutional: Alert, somnolent but arousable, cooperative, in no acute di stress. Mental Status: Oriented to person, place and time. Eyes: Pupils are equal, round, and reactive to light. Ear, Nose, and Throat: Oropharynx clear, mucous membranes moist. Ears and nose without deformities. Trachea midline. Respiratory: Diffuse wheezing and rhonchi. Cardiovascular: Irregularly irregular rhythm. Gastrointestinal: Abdomen soft, non-tender, non-distended. Normal bowel sounds. Neurologic: Cranial nerves II-XII are grossly intact bilaterally. No focal neurological deficits. Moves all extremities spontaneously. Skin: Diffuse bruising of upper and lower extremities bilaterally. Musculoskeletal: No cyanosis or clubbing. Extremities: Mild trace edema bilaterally. Psychiatric: Normal mood and affect. Results Labs 12/23/22 11:53 12/23/22 11:53 Labs: Laboratory Results - last 24 hr 12/23/22 12/23/22 12/23/22 11:53 11:53 11:53 MCV 101.3 H MCH 31.4 MCHC 30.9 L RDW 16.0 Plt Count 207 MPV 11.0 Immature Gran % (Auto) 0.5 H Neut % (Auto) 81.8 H Lymph % (Auto) 9.6 L [place] % (Auto) 5.4 Eos % (Auto) 1.8 Baso % (Auto) 0.9 Lymph # (Auto) 1.0 L [place] # (Auto) 0.6 Eos # (Auto) 0.2 Baso # (Auto) 0.1 Abs Immat Gran (auto) 0.05 H Absolute Neuts (auto) 8.5 H Absolute Nucleated RBC 0.000 Nucleated RBC % (auto) 0.0 Anion Gap 15 Estim Creat Clear Calc 27.0 Estimated GFR 41 Random Glucose 118 H Lactic Acid Calcium 9.1 Magnesium 2.5 Total Bilirubin 1.1 H Direct Bilirubin 0.4 AST 58 H ALT 51 H Alkaline Phosphatase 163 H Troponin I High Sens 60.7 H* B-Natriuretic Peptide Total Protein 6.6 Albumin 3.2 L Procalcitonin 0.13 COVID-19 ([facility]) COVID-19 Clin Com 12/23/22 12/23/22 12/23/22 11:53 11:53 12:48 MCV MCH MCHC RDW Plt Count MPV Immature Gran % (Auto) Neut % (Auto) Lymph % (Auto) [place] % (Auto) Eos % (Auto) Baso % (Auto) Lymph # (Auto) [place] # (Auto) Eos # (Auto) Baso # (Auto) Abs Immat Gran (auto) Absolute Neuts (auto) Absolute Nucleated RBC Nucleated RBC % (auto) Anion Gap Estim Creat Clear Calc Estimated GFR Random Glucose Lactic Acid 1.7 Calcium Magnesium Total Bilirubin Direct Bilirubin AST ALT Alkaline Phosphatase Troponin I High Sens B-Natriuretic Peptide 1014 H Total Protein Albumin Procalcitonin COVID-19 ([facility]) Negative COVID-19 Clin Com See Note Imaging Radiologist's Impressions: Impressions Chest X-Ray 12/23/22 11:26 IMPRESSION: * Cardiomegaly without overt pulmonary edema. * Moderate right pleural effusion and associated atelectasis or consolidation in the right lung base. The right basilar opacity has worsened compared to 12/20/2022. Assessment and Plan (1) Acute and chronic respiratory failure with hypoxia: Status: Acute (2) Acute exacerbation of congestive heart failure: Status: Acute (3) Right lower lobe pneumonia: Status: Acute Plan Pt is an 82-year-old female with a PMH significant for?COPD, CAD, paroxysmal AFib not on anticoagulation, dementia, VRE UTI, HLD, hx of Pseudomonas pneumonia from aspiration previously on inhaled tobramycin, and HFrEF who presents from home to the ED with?worsening SOB and cough. Pt will be admitted to the hospital for treatment further evaluation of acute hypoxic respiratory failure in setting of aspiration pneumonia and CHF exacerbation. Acute hypoxic respiratory failure in the setting of pneumonia Patient satting 86% O2 on 4 L NC in ED, not on home O2 CXR showed moderate right pleural effusion associated atelectasis or consolidation in the right lung base, worsened 3 days prior on 12/20/2022 Likely aspiration pneumonia, pt with hx of Pseudomonas aspiration pneumonia Patient meets sepsis criteria, lactic acid 1.7, will hold on IVF for now d/t CHF, patient being covered by broad-spectrum antibiotics Patient given vanc and Zosyn in ED Will continue Zosyn 3.37 mg IV Q 6, started 12/23/[address] of chest Titrate supplemental O2 >92, wean as tolerated Follow cultures Acute on chronic HFrEF exacerbation Increased SOB, elevated BNP, CXR with moderate right pleural effusion Furosemide 40 mg IV b.i.d. Follow lytes, MG, I/O Daily weights, low-salt diet Admit to telemetry Elevated troponin Patient's troponin 60.7, similar to previous on 11/02/2022 EKG without ischemic changes, patient asymptomatic: Denies chest pain/pressure Likely type 2 in the setting of demand ischemia Monitor on telemetry COPD Pt with wheezing and rhonci on exam Continue home inhalers Duonebs prn UTI Pt treated for UTI on prior admission, d/c on 4 days of Bactrim Finish bactrim, 2 more days of treatment Paroxysmal AFib Not on anticoagulation due to history of bleeding Continue Chronic anemia Stable, at baseline Full Code Attending:?Dr. Christiansen DVT Prophylaxis: Pnuematic boots Pt will require a hospitalization of at least two nights for treatment of acute hypoxic respiratory failure in the setting of aspiration pneumonia and acute CHF exacerbation. Time Spent With Patient Time: Total time managing care of this patient today ____ minutes. Quality Stroke Does the patient have a stroke diagnosis?: No VTE Prior VTE?: No VTE Risk Level:: Medical - moderate - high VTE Device Contraindication: N/A - Device Ordered VTE Drug Contraindication: Treatment Not Indicated
[2022-12-23 16:28] LABS: Appearance Urine Clear; Color Urine Yellow; Glucose Urine UA Negative (Negative); Leukocyte Esterase Urine Moderate (2+) (Negative); Nitrite Urine Negative (Negative); UMIC TRIGGER UACC YES; Urine Blood Negative (Negative); Urine Ketones Negative (Negative); Urine Protein Negative (Neg-Trace)
[2022-12-23 16:30] LABS: Bacteria Urine None Seen (None Seen); Hyaline Casts Urine 0-2 /LPF (0-2); RBC Urine 0-2 /HPF (0-2); Squamous Epithelial Cell Urine 0-2 /HPF (0-2); UACC Culture Trigger YES
[2022-12-23] MEDS: 0.9 % Sodium Chloride Flush 3 ML SYRINGE IVFLUSH ×2 (17:05→23:13)
[2022-12-23] MEDS: Furosemide 40 MG/4 ML VIAL IVPUSH (18:13)
[2022-12-23] MEDS: Isosorbide Mononitrate 30 MG TAB.ER.24H PO (18:14)
[2022-12-23] MEDS: predniSONE 5 MG TABLET PO (18:15)
[2022-12-23] MEDS: Piperacillin Sodium/Tazobactam 3.375 GM in 0.9 % Sodium Chloride 50 ML IV ×2 (18:15→23:31)
[2022-12-23] MEDS: Magnesium Oxide 400 MG TABLET PO (18:15)
[2022-12-23] MEDS: Thiamine HCL 100 MG TABLET PO (18:15)
[2022-12-23] MEDS: levalbuterol HCL 1.25 MG/3 ML VIAL.NEB INHALE (21:43)
[2022-12-23] MEDS: Montelukast Sodium 10 MG TABLET PO (21:55)
[2022-12-23] MEDS: risperiDONE 0.25 MG TABLET PO (21:55)
[2022-12-23] MEDS: Atorvastatin Calcium 40 MG TABLET PO (21:55)
[2022-12-23] MEDS: Metoprolol Tartrate 25 MG TABLET PO (21:55)
[2022-12-23] MEDS: traMADoL HCL 50 MG TABLET 25 MG PO (21:56)
[2022-12-23] MEDS: Fluticasone Propionate Nasal 16 GM SPRAY 1 SPRAY NOSTRIL-B (23:12)
[2022-12-24] VITALS (9 sets, daily range): BP systolic 115–131; BP diastolic 58–76; PULSE 76–95; RESP 17–20; TEMP 36.1–36.6; O2SAT 92–98
--- NOTE | 2022-12-24 01:54 | PC.NURSE ---
Picture taken on admission assessment of pressure injury to bilateral buttock on B Pod camera , attempted to print picture on [facility] unit printer with a jam. [place] [facility] [place] also with a jam message, unable to print.
[2022-12-24] MEDS: Piperacillin Sodium/Tazobactam 3.375 GM in 0.9 % Sodium Chloride 50 ML IV ×4 (05:52→23:38)
--- NOTE | 2022-12-24 08:34 | MHC.CM.PN ---
12/24/22 08:31 - Case Mgmt Progress Note by Andree Philippe Deepali Acct Num: [id number] : 1940 Patient Age: 82 Patient lives with her Daughter and uses a walker to assist with mobility. Patient is active with [facility] for home PT; home/resume said services is the tentative plan. CM will initiate and follow for dc planning. Patient has received Covid vax x4 and PCP is Dr. Monica Arciniega. IMM addressed. Initialized on 12/24/22 08:31 - END OF NOTE
[2022-12-24] MEDS: Acetylcysteine 10 % 400 MG/4 ML VIAL INHALE ×2 (09:01→19:42)
[2022-12-24] MEDS: levalbuterol HCL 1.25 MG/3 ML VIAL.NEB INHALE ×2 (09:01→19:41)
[2022-12-24] MEDS: Thiamine HCL 100 MG TABLET PO (09:45)
[2022-12-24] MEDS: 0.9 % Sodium Chloride Flush 3 ML SYRINGE IVFLUSH ×3 (09:45→23:37)
[2022-12-24] MEDS: Isosorbide Mononitrate 30 MG TAB.ER.24H PO (09:45)
[2022-12-24] MEDS: Metoprolol Tartrate 25 MG TABLET PO ×2 (09:45→23:35)
[2022-12-24] MEDS: predniSONE 5 MG TABLET PO (09:46)
[2022-12-24] MEDS: Aspirin Enteric Coated 81 MG TABLET.DR PO (09:46)
[2022-12-24] MEDS: Ferrous Sulfate 324 MG TABLET.DR PO (09:46)
[2022-12-24] MEDS: Fluticasone Propionate Nasal 16 GM SPRAY 1 SPRAY NOSTRIL-B (09:46)
[2022-12-24] MEDS: traMADoL HCL 50 MG TABLET 25 MG PO ×2 (09:47→23:36)
[2022-12-24] MEDS: Furosemide 40 MG/4 ML VIAL IVPUSH ×2 (09:48→17:34)
--- NOTE | 2022-12-24 13:16 | HO.PM.IMPN ---
Subjective Subjective Date of Service: 12/24/22 Interval History: Seen and evaluated Feels overall tired with no energy CT scan showing collapsed lung with mucus plug No other overnight events Review of Systems SOB Cough Hypoxia Weakness Physical Exam Vital Signs: Vital Signs: Last Vital Signs Temp 97.4 F 12/24/22 11:04 Pulse 76 12/24/22 11:04 Resp 20 12/24/22 11:04 BP 117/68 12/24/22 11:04 Pulse Ox 93 12/24/22 11:04 O2 Del Method Nasal Cannula 12/24/22 11:04 O2 Flow Rate 3 12/24/22 11:04 Oxygen Flow Rate 4 12/23/22 11:07 BMI result Body Mass Index 24.0 Const: Other: Constitutional : Awake, interactive, not in distress Neck : Normal inspection, Supple Cardiovascular : RRR, no JVP, no lower extremity edema Respiratory : fair bilateral air entry, decreased at the right base with dullness on percussion, basal fine crackles, no wheezes or rhonchi Gastrointestinal:? soft, lax, Normal bowel sounds, Non tender Skin : Warm, Dry, fungal infx in skin folds Neurological : Alert & oriented to self and place, No focal deficit Objective Data Active Medications Acetaminophen (Acetaminophen 325 Mg Tablet) 650 mg PO Q6H PRN PRN Reason: Pain, Mild (Pain Scale 1-3) Acetylcysteine (Acetylcysteine 10 % 400 Mg/4 Ml Vial) 400 mg INHALE RQ4H WHILE AWAKE REPLACED BY [facility] Last Admin: 12/24/22 11:17 Dose: Not Given Documented By: SOHAM Non-Admin Reason: Patient Refused Albuterol Sulfate (Albuterol Sulfate 90 Mcg 8 Gm Inhaler) 2 puff INHALE Q4H PRN PRN Reason: Shortness Of Breath Or Wheezin Albuterol/Ipratropium (Albuterol/Iprat 2.5/0.5mg 3 Ml Ampul.Neb) 3 ml INHALE RQ4H WHILE AWAKE PRN PRN Reason: Shortness of Breath/Wheezing Aspirin (Aspirin Enteric Coated 81 Mg Tablet.) 81 mg PO DAILY REPLACED BY [facility] Last Admin: 12/24/22 09:46 Dose: 81 mg Documented By: DELLA Atorvastatin Calcium (Atorvastatin Calcium 40 Mg Tablet) 40 mg PO BEDTIME REPLACED BY [facility] Last Admin: 12/23/22 21:55 Dose: 40 mg Documented By: KINA Docusate Sodium (Docusate Sodium 100 Mg Capsule) 100 mg PO DAILY PRN PRN Reason: Constipation Docusate Sodium (Docusate Sodium 100 Mg Capsule) 100 mg PO DAILY REPLACED BY [facility] Last Admin: 12/24/22 09:50 Dose: Not Given Documented By: DELLA Non-Admin Reason: Patient Refused Ferrous Sulfate (Ferrous Sulfate 324 Mg Tablet.) 324 mg PO DAILY REPLACED BY [facility] Last Admin: 12/24/22 09:46 Dose: 324 mg Documented By: DELLA Fluticasone Propionate (Fluticasone Propionate 100 Mcg Blst.W.Dev) 2 puff INHALE RBID REPLACED BY [facility] Last Admin: 12/24/22 09:02 Dose: Not Given Documented By: SHERIE Non-Admin Reason: Patient Refused Fluticasone Propionate (Fluticasone Propionate Nasal 16 Gm [place]) 1 spray NOSTRIL-B BID REPLACED BY [facility] Last Admin: 12/24/22 09:46 Dose: 1 spray Documented By: DELLA Furosemide (Furosemide 40 Mg/4 Ml Vial) 40 mg IVPUSH BID@0900,1800 REPLACED BY [facility]; Protocol Last Admin: 12/24/22 09:48 Dose: 40 mg Documented By: DELLA Piperacillin Sod/Tazobactam (Sod 3.375 gm/ Sodium Chloride) 50 mls @ 100 mls/hr IV Q6H REPLACED BY [facility] Last Infusion: 12/24/22 13:01 Dose: 0 mls/hr Documented By: DELLA Isosorbide Mononitrate (Isosorbide Mononitrate 30 Mg Tab.Er.24h) 30 mg PO DAILY REPLACED BY [facility]; Protocol Last Admin: 12/24/22 09:45 Dose: 30 mg Documented By: DELLA Levalbuterol HCl (Levalbuterol Hcl 1.25 Mg/3 Ml Vial.Neb) 1.25 mg INHALE RTID REPLACED BY [facility] Last Admin: 12/24/22 09:01 Dose: 1.25 mg Documented By: SHERIE Loperamide HCl (Loperamide Hcl 2 Mg Capsule) 2 mg PO Q4H PRN PRN Reason: diarrhea Magnesium Oxide (Magnesium Oxide 400 Mg Tablet) 400 mg PO BIDPC REPLACED BY [facility] Last Admin: 12/24/22 09:50 Dose: Not Given Documented By: DELLA Non-Admin Reason: Patient Refused Metoprolol Tartrate (Metoprolol Tartrate 25 Mg Tablet) 25 mg PO BID REPLACED BY [facility]; Protocol Last Admin: 12/24/22 09:45 Dose: 25 mg Documented By: DELLA Montelukast Sodium (Montelukast Sodium 10 Mg Tablet) 10 mg PO BEDTIME REPLACED BY [facility] Last Admin: 12/23/22 21:55 Dose: 10 mg Documented By: KINA Omeprazole (Omeprazole 20 Mg Capsule.Dr) 20 mg PO BID@0630,1630 REPLACED BY [facility] Last Admin: 12/24/22 05:53 Dose: Not Given Documented By: DANIELLE Non-Admin Reason: Patient Refused Ondansetron HCl (Ondansetron Hcl 4 Mg/2 Ml Vial) 4 mg IVPUSH Q8H PRN PRN Reason: Nausea and Vomiting Oxybutynin Chloride (Oxybutynin Chloride Er 5 Mg Tab.Er.24) 5 mg PO DAILY REPLACED BY [facility] Last Admin: 12/24/22 09:49 Dose: Not Given Documented By: DELLA Non-Admin Reason: Patient Refused Pharmacy Consult (Consult Rx Perform Med Rec) 1 each MISCELLANE ONCE PRN PRN Reason: Consult order Prednisone (Prednisone 5 Mg Tablet) 5 mg PO DAILY REPLACED BY [facility] Last Admin: 12/24/22 09:46 Dose: 5 mg Documented By: DELLA Risperidone (Risperidone 0.25 Mg Tablet) 0.25 mg PO BEDTIME REPLACED BY [facility] Last Admin: 12/23/22 21:55 Dose: 0.25 mg Documented By: KINA Sodium Chloride (0.9 % Sodium Chloride Flush 3 Ml Syringe) 3 ml IVFLUSH QSHIFT REPLACED BY [facility] Last Admin: 12/24/22 09:45 Dose: 3 ml Documented By: DELLA Thiamine HCl (Thiamine Hcl 100 Mg Tablet) 100 mg PO DAILY REPLACED BY [facility] Last Admin: 12/24/22 09:45 Dose: 100 mg Documented By: DELLA Tramadol HCl (Tramadol Hcl 50 Mg Tablet) 25 mg PO BID REPLACED BY [facility] Last Admin: 12/24/22 09:47 Dose: 25 mg Documented By: DELLA Labs 12/23/22 11:53 12/23/22 11:53 Labs: Laboratory Results - last 24 hr 12/23/22 16:18 Urine Color Yellow Urine Appearance Clear Urine pH 7.0 Ur Specific [place] 1.010 Urine Protein Negative Urine Glucose (UA) Negative Urine Ketones Negative Urine Blood Negative Urine Nitrite Negative Ur Leukocyte Esterase Moderate (2+) H Urine RBC 0-2 Urine WBC 6-10 H Ur Squamous Epith Cells 0-2 Urine Bacteria None Seen Hyaline Casts 0-2 Assessment and Plan (1) Acute and chronic respiratory failure with hypoxia: Status: Acute (2) Acute exacerbation of congestive heart failure: Status: Acute (3) Right lower lobe pneumonia: Status: Acute (4) Sepsis: Status: Acute (5) Atelectasis of right lung: Status: Acute Plan Pt is an 82-year-old female with a PMH significant for?COPD, CAD, paroxysmal AFib not on anticoagulation, dementia, VRE UTI, HLD, hx of Pseudomonas pneumonia from aspiration previously on inhaled tobramycin, and HFrEF who presents from home to the ED with?worsening SOB and cough. Pt will be admitted to the hospital for treatment further evaluation of acute hypoxic respiratory failure in setting of aspiration pneumonia and CHF exacerbation. Acute hypoxic respiratory failure in the setting of sepsis 2/2 pneumonia CXR showed moderate right pleural effusion associated atelectasis CT of chest showing collapsed lung with mucus plug pending cultures continue Zosyn 3.37 mg IV Q 6, started 12/23/2022 Mucomyst neb CPT Pulm eval for possible bronchoscopy Titrate supplemental O2 >92, wean as tolerated Follow cultures Acute on chronic HFrEF exacerbation Continue Furosemide 40 mg IV b.i.d. Follow lytes, MG, I/O Daily weights, low-salt diet Elevated troponin Patient's troponin 60.7, similar to previous on 11/02/2022 EKG without ischemic changes, patient asymptomatic: Denies chest pain/pressure Likely type 2 in the setting of demand ischemia Monitor on telemetry COPD Pt with wheezing and rhonci on exam Continue home inhalers Duonebs prn UTI Finish bactrim, 2 more days of treatment Paroxysmal AFib Not on anticoagulation due to history of bleeding Continue Chronic anemia Stable, at baseline Full Code DVT Prophylaxis: Pnuematic boots Pt will require a hospitalization of [facility] for treatment of acute hypoxic respiratory failure in the setting of aspiration pneumonia and acute CHF exacerbation. Time Spent With Patient Time: Total time managing care of this patient today ____ minutes. Quality Stroke Does the patient have a stroke diagnosis?: No VTE Prior VTE?: No VTE Risk Level:: Medical - moderate - high VTE Device Contraindication: N/A - Device Ordered VTE Drug Contraindication: Treatment Not Indicated
[2022-12-24 15:42] LABS: Anion Gap 16 (12-20); Blood Urea Nitrogen 17 mg/dL (9-16); Carbon Dioxide 29 mmol/L (22-29); Chloride 95 mmol/L (96-108); Creatinine Clr Calc Pharmacy 23.5; Estimated Glomerular Filt Rate 38; Glucose Random 179 mg/dL (60-115); Magnesium 2.1 mg/dL (1.6-2.6); Potassium 4.4 mmol/L (3.3-5.1); Sodium 136 mmol/L (135-145)
[2022-12-24 15:48] LABS: B Type Natriuretic Peptide 600 pg/mL (<100)
[2022-12-24] MEDS: Magnesium Oxide 400 MG TABLET PO (17:30)
[2022-12-24] MEDS: Albuterol/Iprat 2.5/0.5MG 3 ML AMPUL.NEB INHALE (19:41)
--- NOTE | 2022-12-24 22:24 | PM.CNPUL ---
History of Present Illness History of Present Illness Consult date: 12/24/22 Chief complaint: SOB, hypoxia Narrative: This is an inpatient pulmonary consultation. The patient is an 82-year-old female with a PMH significant for?COPD, CAD, paroxysmal AFib not on anticoagulation, dementia, VRE UTI, HLD, hx of Pseudomonas pneumonia from aspiration previously on inhaled tobramycin, and HFrEF who presents from home to the ED with?worsening SOB and cough. Pt was discharged two days prior from the hospital where she was being treated for metabolic encephalopathy in the setting of UTI, discharged home on 4 days of Bactrim.? Since discharge patient states she has been experiencing increased shortness of breath and wheezing.? Patient lives with her daughter who notes pt was tachycardic and hypoxic yesterday.? Patient has supplemental O2 at home p.r.n. but has never needed it until last night. Pt had difficulty sleeping last night and was up most of the night coughing. This morning pt was worse and EMS was called. Patient was placed on CPAP by EMS due to hypoxia and accessory muscle use.? Patient denies chest pain/pressure, palpitations.? No fever, chills, nausea, vomiting, diarrhea, abdominal pain. In the ED patient was afebrile but tachycardic up to 118 D, tachypneic up to 32, and satting at 86% on 4L NC. Labs were significant for stable H&H of 9.5/30.7, MCV 101.3, AST 58, ALT 51, alk-phos of 163, initial troponin is 60.7, BNP of 1014.? Electrolytes WNL. The patient had a CT chest personally reviewed by me demonstrating RLL collapse. Currently on broad spectrum antibiotics and mucomyst nebs. I did speak to respiratory to start local percussion therapy to the RLL area. Consider therapeutic bronchoscopy if no better monday. Review of Systems Constitutional: Constitutional: Denies fever(s) and Reports malaise ENT: Reports dysphagia Cardiovascular: Cardiovascular: Denies chest pain and Reports dyspnea Respiratory: Respiratory: Reports chest congestion, Reports cough, Reports dyspnea and Denies wheezing Gastrointestinal: Gastrointestinal: Reports dysphagia Genitourinary: Genitourinary: Reports as per HPI Musculoskeletal: Musculoskeletal: Reports myalgias Neurologic: Reports confusion Psychiatric: Psychiatric: Reports confusion Hematologic/Lymphatic: Hematologic/Lymphatic: Denies easy bleeding Allergic/Immunologic: Allergic/Immunologic: Denies wheezing PMFSH Past Medical History Medical History A-fib Acute encephalopathy Acute hypokalemia Acute respiratory failure with hypoxia Anemia Anemia Aspiration pneumonia Atelectasis of right lung Atrial fibrillation with RVR Atrial flutter Bronchiectasis CAD (coronary artery disease) Chronic dyspnea Congestive heart failure COPD (chronic obstructive pulmonary disease) COPD (chronic obstructive pulmonary disease) Dyspnea Encephalopathy chronic GI bleed Heart failure History of infection with vancomycin resistant Enterococcus (VRE) Paroxysmal A-fib Pseudomonal pneumonia Pseudomonas respiratory infection Pulmonary nodules Pyuria Family History Family History Other No family history of cancer Surgical History Surgical History H/O umbilical hernia repair (09/18/22) History of cholecystectomy History of hip replacement History of knee replacement History of quadruple bypass Social History Social History Household Members: Children Housing: House Are you a primary critical care nurse practitioner to a significant other at home: No Do you presently have visiting nurse or other home services: Yes (pt cannot recall what services specifically but reports has services) Alcohol intake: never Patient Tobacco Use Status: Never used Tobacco Tobacco use type: Cigarette Smoked in Last 30 Days: No Use of substances other than those prescribed or required for medical reasons: No Currently Displaying Signs/Symptoms of Drug Intoxication Withdrawal: No Advance Directives: Yes Advance Directives on File: Yes Advance Directives Date on File: 08/24/22 Do you have thoughts of harming others: None Do you have a plan to hurt others: No Plan Recently lost weight without trying: Unsure Nutrition Risks: On aspiration precautions Patient : No service: No Current occupational status: retired Meds Allergies Allergy/AdvReac Type Severity Reaction Status Date / Time carvedilol Allergy Shortness Verified 10/04/22 14:13 of Breath sertraline [From Zoloft] Allergy Shortness Verified 10/04/22 14:13 of Breath spironolactone Allergy Shortness Verified 10/04/22 14:13 of Breath adhesive tape AdvReac Severe skin tears Verified 12/20/22 13:43 mirtazapine AdvReac Severe psychotic Verified 12/16/22 08:03 episode Active Medications: Current Medications Acetaminophen (Acetaminophen 325 Mg Tablet) 650 mg PO Q6H PRN PRN Reason: Pain, Mild (Pain Scale 1-3) Acetylcysteine (Acetylcysteine 10 % 400 Mg/4 Ml Vial) 400 mg INHALE RQ4H WHILE AWAKE [facility] Last Admin: 12/24/22 19:42 Dose: 400 mg Albuterol Sulfate (Albuterol Sulfate 90 Mcg 8 Gm Inhaler) 2 puff INHALE Q4H PRN PRN Reason: Shortness Of Breath Or Wheezin Albuterol/Ipratropium (Albuterol/Iprat 2.5/0.5mg 3 Ml Ampul.Neb) 3 ml INHALE RQ4H WHILE AWAKE PRN PRN Reason: Shortness of Breath/Wheezing Last Admin: 12/24/22 19:41 Dose: 3 ml Aspirin (Aspirin Enteric Coated 81 Mg Tablet.) 81 mg PO DAILY [facility] Last Admin: 12/24/22 09:46 Dose: 81 mg Atorvastatin Calcium (Atorvastatin Calcium 40 Mg Tablet) 40 mg PO BEDTIME [facility] Last Admin: 12/23/22 21:55 Dose: 40 mg Docusate Sodium (Docusate Sodium 100 Mg Capsule) 100 mg PO DAILY PRN PRN Reason: Constipation Docusate Sodium (Docusate Sodium 100 Mg Capsule) 100 mg PO DAILY [facility] Last Admin: 12/24/22 09:50 Dose: Not Given Ferrous Sulfate (Ferrous Sulfate 324 Mg Tablet.) 324 mg PO DAILY [facility] Last Admin: 12/24/22 09:46 Dose: 324 mg Fluticasone Propionate (Fluticasone Propionate 100 Mcg Blst.W.Dev) 2 puff INHALE RBID [facility] Last Admin: 12/24/22 19:47 Dose: Not Given Fluticasone Propionate (Fluticasone Propionate Nasal 16 Gm [place]) 1 spray NOSTRIL-B BID [facility] Last Admin: 12/24/22 09:46 Dose: 1 spray Furosemide (Furosemide 40 Mg/4 Ml Vial) 40 mg IVPUSH BID@0900,1800 [facility]; Protocol Last Admin: 12/24/22 17:34 Dose: 40 mg Piperacillin Sod/Tazobactam (Sod 3.375 gm/ Sodium Chloride) 50 mls @ 100 mls/hr IV Q6H [facility] Last Infusion: 12/24/22 19:02 Dose: Infused Isosorbide Mononitrate (Isosorbide Mononitrate 30 Mg Tab.Er.24h) 30 mg PO DAILY [facility]; Protocol Last Admin: 12/24/22 09:45 Dose: 30 mg Levalbuterol HCl (Levalbuterol Hcl 1.25 Mg/3 Ml Vial.Neb) 1.25 mg INHALE RTID [facility] Last Admin: 12/24/22 19:41 Dose: 1.25 mg Loperamide HCl (Loperamide Hcl 2 Mg Capsule) 2 mg PO Q4H PRN PRN Reason: diarrhea Magnesium Oxide (Magnesium Oxide 400 Mg Tablet) 400 mg PO BIDPC [facility] Last Admin: 12/24/22 17:30 Dose: 400 mg Metoprolol Tartrate (Metoprolol Tartrate 25 Mg Tablet) 25 mg PO BID [facility]; Protocol Last Admin: 12/24/22 09:45 Dose: 25 mg Montelukast Sodium (Montelukast Sodium 10 Mg Tablet) 10 mg PO BEDTIME [facility] Last Admin: 12/23/22 21:55 Dose: 10 mg Omeprazole (Omeprazole 20 Mg Capsule.Dr) 20 mg PO BID@0630,1630 [facility] Last Admin: 12/24/22 17:28 Dose: Not Given Ondansetron HCl (Ondansetron Hcl 4 Mg/2 Ml Vial) 4 mg IVPUSH Q8H PRN PRN Reason: Nausea and Vomiting Oxybutynin Chloride (Oxybutynin Chloride Er 5 Mg Tab.Er.24) 5 mg PO DAILY [facility] Last Admin: 12/24/22 09:49 Dose: Not Given Pharmacy Consult (Consult Rx Perform Med Rec) 1 each MISCELLANE ONCE PRN PRN Reason: Consult order Prednisone (Prednisone 5 Mg Tablet) 5 mg PO DAILY [facility] Last Admin: 12/24/22 09:46 Dose: 5 mg Risperidone (Risperidone 0.25 Mg Tablet) 0.25 mg PO BEDTIME [facility] Last Admin: 12/23/22 21:55 Dose: 0.25 mg Sodium Chloride (0.9 % Sodium Chloride Flush 3 Ml Syringe) 3 ml IVFLUSH QSHIFT [facility] Last Admin: 12/24/22 17:34 Dose: 3 ml Thiamine HCl (Thiamine Hcl 100 Mg Tablet) 100 mg PO DAILY [facility] Last Admin: 12/24/22 09:45 Dose: 100 mg Tramadol HCl (Tramadol Hcl 50 Mg Tablet) 25 mg PO BID [facility] Last Admin: 12/24/22 09:47 Dose: 25 mg Home Medications Medication Instructions Recorded Confirmed Last Taken Type docusate sodium 100 mg capsule 100 mg PO DAILY 03/22/22 12/23/22 12/22/22 History fluticasone propionate 50 1 spray intranasal BID 03/22/22 12/23/22 12/22/22 History mcg/actuation nasal spray,suspension montelukast 10 mg tablet 10 mg PO BEDTIME 03/22/22 12/23/22 12/22/22 History nebulizers 03/22/22 07/04/22 Unknown History oxybutynin chloride 5 mg 5 mg PO DAILY 03/22/22 12/23/22 12/22/22 History tablet,extended release 24 hr tramadol 50 mg tablet 25 mg PO BID 03/22/22 12/23/22 12/22/22 History umeclidinium 62.5 mcg-vilanterol 1 ea inhalation DAILY 05/24/22 12/23/22 12/22/22 History 25 mcg/actuation powdr for inhalation (Anoro Ellipta) albuterol sulfate 90 mcg/actuation 2 puff inhalation Q4-6H PRN 11/02/22 12/23/22 Unknown History aerosol inhaler (Ventolin HFA) Shortness Of Breath Or Wheezing aspirin 81 mg tablet,delayed 81 mg PO DAILY 11/02/22 12/23/22 12/22/22 History release isosorbide mononitrate 30 mg 30 mg PO DAILY 11/02/22 12/23/22 12/22/22 History tablet,extended release 24 hr levalbuterol HCl 1.25 mg/3 mL 1.25 mg inhalation TID 11/02/22 12/23/22 12/22/22 History solution for nebulization pantoprazole 40 mg tablet,delayed 40 mg PO BID 11/02/22 12/23/22 12/22/22 History release thiamine HCl (vitamin B1) 100 mg 100 mg PO DAILY 11/02/22 12/23/22 12/22/22 History tablet fluticasone propionate 110 2 puff inhalation BID PRN 12/16/22 12/23/22 Unknown History mcg/actuation HFA aerosol inhaler Shortness Of Breath Or Wheezing (Flovent HFA) risperidone 0.25 mg tablet 0.25 mg PO BEDTIME 12/16/22 12/23/22 12/22/22 History Physical Exam Vital Signs: Vital Signs: Last Vital Signs Temp 97.4 F 12/24/22 19:06 Pulse 95 12/24/22 19:47 Resp 18 12/24/22 19:47 BP 115/74 12/24/22 19:06 Pulse Ox 98 12/24/22 19:06 O2 Del Method Nasal Cannula 12/24/22 19:06 O2 Flow Rate 3 12/24/22 19:06 Oxygen Flow Rate 4 12/23/22 11:07 BMI result Body Mass Index 24.0 Const: General: confusion Orientation/consciousness: confusion HEENT: Head: Yes normocephalic Neck: Neck: Yes supple Chest: Chest palpation & inspection: normal inspection of the chest Resp: Effort & Inspection: normal respiratory effort Auscultation: diminished lung sounds on the right Cardio: Heart sounds: S1 normal heart sound present and S2 normal heart sound present GI: Palpation (GI): Soft to palpation Skin: General skin exam: no rashes or lesions noted Neuro: General: confusion Extrem: General: Yes no clubbing, cyanosis or edema Results Laboratory Findings 12/23/22 11:53 12/24/22 15:13 Abnormal lab findings: Abnormal Labs 12/23/22 12/23/22 12/23/22 11:53 11:53 11:53 RBC 3.03 L Hgb 9.5 L Hct 30.7 L MCV 101.3 H MCHC 30.9 L Immature Gran % (Auto) 0.5 H Neut % (Auto) 81.8 H Lymph % (Auto) 9.6 L Lymph # (Auto) 1.0 L Abs Immat Gran (auto) 0.05 H Absolute Neuts (auto) 8.5 H Chloride BUN Random Glucose 118 H Total Bilirubin 1.1 H AST 58 H ALT 51 H Alkaline Phosphatase 163 H Troponin I High Sens 60.7 H* B-Natriuretic Peptide Albumin 3.2 L Ur Leukocyte Esterase Urine WBC 12/23/22 12/23/22 12/24/22 11:53 16:18 15:13 RBC Hgb Hct MCV MCHC Immature Gran % (Auto) Neut % (Auto) Lymph % (Auto) Lymph # (Auto) Abs Immat Gran (auto) Absolute Neuts (auto) Chloride 95 L BUN 17 H Random Glucose 179 H Total Bilirubin AST ALT Alkaline Phosphatase Troponin I High Sens B-Natriuretic Peptide 1014 H Albumin Ur Leukocyte Esterase Moderate (2+) H Urine WBC 6-10 H 12/24/22 15:13 RBC Hgb Hct MCV MCHC Immature Gran % (Auto) Neut % (Auto) Lymph % (Auto) Lymph # (Auto) Abs Immat Gran (auto) Absolute Neuts (auto) Chloride BUN Random Glucose Total Bilirubin AST ALT Alkaline Phosphatase Troponin I High Sens B-Natriuretic Peptide 600 H Albumin Ur Leukocyte Esterase Urine WBC Microbiology: Microbiology 12/23/22 Unknown Urine clean catch - Urine mcdonald top Urine Culture - Final 12/23/22 11:53 Blood - Venous Blood Culture - Preliminary No growth after 24 hours. 12/23/22 11:53 Blood - Venous Blood Culture - Preliminary No growth after 24 hours. Assessment and Plan (1) Acute and chronic respiratory failure with hypoxia: Status: Acute (2) Right lower lobe pneumonia: Status: Acute (3) Acute metabolic encephalopathy: Status: Acute Plan continue broad spectrum abx for aspiration pneumonia corinue nebs with mucomyst start CPT with manual percussor repeat CXR Monday or sooner if worsens Consider bronchoscopy if no better fair condition. The patient is frail. Time Spent With Patient Time: Total time managing care of this patient today ____ minutes. Procedures Date of Service Date of Service: 12/24/22
[2022-12-24] MEDS: Montelukast Sodium 10 MG TABLET PO (23:35)
[2022-12-24] MEDS: risperiDONE 0.25 MG TABLET PO (23:35)
[2022-12-24] MEDS: Atorvastatin Calcium 40 MG TABLET PO (23:35)
[2022-12-25] VITALS (8 sets, daily range): BP systolic 111–129; BP diastolic 59–68; PULSE 68–90; RESP 16–20; TEMP 36.3–37.1; O2SAT 94–97
[2022-12-25] MEDS: Piperacillin Sodium/Tazobactam 3.375 GM in 0.9 % Sodium Chloride 50 ML IV ×3 (05:44→17:02)
[2022-12-25 07:23] LABS: Blood Urea Nitrogen 14 mg/dL (9-16); Calcium 9.1 mg/dL (8.4-10.2); Creatinine Clr Calc Pharmacy 22.4; Estimated Glomerular Filt Rate 36; Glucose Random 85 mg/dL (60-115)
[2022-12-25 07:32] LABS: B Type Natriuretic Peptide 447 pg/mL (<100)
[2022-12-25 07:39] LABS: Anion Gap 18 (12-20); Carbon Dioxide 31 mmol/L (22-29); Chloride 94 mmol/L (96-108); Potassium 3.3 mmol/L (3.3-5.1); Sodium 140 mmol/L (135-145)
[2022-12-25] MEDS: levalbuterol HCL 1.25 MG/3 ML VIAL.NEB INHALE ×2 (08:01→20:48)
[2022-12-25] MEDS: Acetylcysteine 10 % 400 MG/4 ML VIAL INHALE ×2 (08:01→20:48)
[2022-12-25] MEDS: Metoprolol Tartrate 25 MG TABLET PO ×2 (08:06→20:42)
[2022-12-25] MEDS: Furosemide 40 MG/4 ML VIAL IVPUSH ×2 (08:06→17:02)
[2022-12-25] MEDS: predniSONE 5 MG TABLET PO (08:06)
[2022-12-25] MEDS: 0.9 % Sodium Chloride Flush 3 ML SYRINGE IVFLUSH ×2 (08:06→19:45)
[2022-12-25] MEDS: Fluticasone Propionate Nasal 16 GM SPRAY 1 SPRAY NOSTRIL-B (08:06)
[2022-12-25] MEDS: Aspirin Enteric Coated 81 MG TABLET.DR PO (08:06)
[2022-12-25] MEDS: traMADoL HCL 50 MG TABLET 25 MG PO ×2 (08:06→20:42)
[2022-12-25] MEDS: Magnesium Oxide 400 MG TABLET PO ×2 (08:06→17:02)
[2022-12-25] MEDS: Isosorbide Mononitrate 30 MG TAB.ER.24H PO (08:06)
[2022-12-25] MEDS: Ferrous Sulfate 324 MG TABLET.DR PO (08:06)
[2022-12-25] MEDS: Thiamine HCL 100 MG TABLET PO (08:06)
--- NOTE | 2022-12-25 11:21 | HO.PM.IMPN ---
Subjective Subjective Date of Service: 12/25/22 Interval History: Seen and evaluated Having breakfast, on O2 supplement reporting mild SOB CT scan showing collapsed lung with mucus plug No other overnight events Review of Systems SOB Cough Hypoxia Weakness Physical Exam Vital Signs: Vital Signs: Last Vital Signs Temp 97.8 F 12/25/22 07:55 Pulse 81 12/25/22 08:03 Resp 16 12/25/22 08:03 BP 125/65 12/25/22 07:55 Pulse Ox 97 12/25/22 07:55 O2 Del Method Nasal Cannula 12/25/22 07:55 O2 Flow Rate 3 12/25/22 07:55 Oxygen Flow Rate 4 12/23/22 11:07 BMI result Body Mass Index 24.0 Const: Other: Constitutional : Awake, interactive, not in distress Neck : Normal inspection, Supple Cardiovascular : RRR, no JVP, no lower extremity edema Respiratory : fair bilateral air entry, decreased at the right base with dullness on percussion, basal fine crackles, no wheezes or rhonchi Gastrointestinal:? soft, lax, Normal bowel sounds, Non tender Skin : Warm, Dry, fungal infx in skin folds Neurological : Alert & oriented to self and place, No focal deficit Objective Data Active Medications Acetaminophen (Acetaminophen 325 Mg Tablet) 650 mg PO Q6H PRN PRN Reason: Pain, Mild (Pain Scale 1-3) Acetylcysteine (Acetylcysteine 10 % 400 Mg/4 Ml Vial) 400 mg INHALE RQ4H WHILE AWAKE [facility] Last Admin: 12/25/22 08:01 Dose: 400 mg Documented By: SOHAM Albuterol Sulfate (Albuterol Sulfate 90 Mcg 8 Gm Inhaler) 2 puff INHALE Q4H PRN PRN Reason: Shortness Of Breath Or Wheezin Albuterol/Ipratropium (Albuterol/Iprat 2.5/0.5mg 3 Ml Ampul.Neb) 3 ml INHALE RQ4H WHILE AWAKE PRN PRN Reason: Shortness of Breath/Wheezing Last Admin: 12/24/22 19:41 Dose: 3 ml Documented By: MARY Aspirin (Aspirin Enteric Coated 81 Mg Tablet.) 81 mg PO DAILY [facility] Last Admin: 12/25/22 08:06 Dose: 81 mg Documented By: DELLA Atorvastatin Calcium (Atorvastatin Calcium 40 Mg Tablet) 40 mg PO BEDTIME [facility] Last Admin: 12/24/22 23:35 Dose: 40 mg Documented By: OSMEL Docusate Sodium (Docusate Sodium 100 Mg Capsule) 100 mg PO DAILY PRN PRN Reason: Constipation Docusate Sodium (Docusate Sodium 100 Mg Capsule) 100 mg PO DAILY [facility] Last Admin: 12/25/22 08:17 Dose: Not Given Documented By: DELLA Non-Admin Reason: Patient Refused Ferrous Sulfate (Ferrous Sulfate 324 Mg Tablet.) 324 mg PO DAILY [facility] Last Admin: 12/25/22 08:06 Dose: 324 mg Documented By: DELLA Fluticasone Propionate (Fluticasone Propionate 100 Mcg Blst.W.Dev) 2 puff INHALE RBID [facility] Last Admin: 12/25/22 08:01 Dose: Not Given Documented By: SOHAM Non-Admin Reason: Patient Refused Fluticasone Propionate (Fluticasone Propionate Nasal 16 Gm [place]) 1 spray NOSTRIL-B BID [facility] Last Admin: 12/25/22 08:06 Dose: 1 spray Documented By: DELLA Furosemide (Furosemide 40 Mg/4 Ml Vial) 40 mg IVPUSH BID@0900,1800 [facility]; Protocol Last Admin: 12/25/22 08:06 Dose: 40 mg Documented By: DELLA Piperacillin Sod/Tazobactam (Sod 3.375 gm/ Sodium Chloride) 50 mls @ 100 mls/hr IV Q6H [facility] Last Infusion: 12/25/22 06:27 Dose: 0 mls/hr Documented By: OSMEL Isosorbide Mononitrate (Isosorbide Mononitrate 30 Mg Tab.Er.24h) 30 mg PO DAILY [facility]; Protocol Last Admin: 12/25/22 08:06 Dose: 30 mg Documented By: DELLA Levalbuterol HCl (Levalbuterol Hcl 1.25 Mg/3 Ml Vial.Neb) 1.25 mg INHALE RTID [facility] Last Admin: 12/25/22 08:01 Dose: 1.25 mg Documented By: SOHAM Loperamide HCl (Loperamide Hcl 2 Mg Capsule) 2 mg PO Q4H PRN PRN Reason: diarrhea Magnesium Oxide (Magnesium Oxide 400 Mg Tablet) 400 mg PO BIDPC [facility] Last Admin: 12/25/22 08:06 Dose: 400 mg Documented By: DELLA Metoprolol Tartrate (Metoprolol Tartrate 25 Mg Tablet) 25 mg PO BID [facility]; Protocol Last Admin: 12/25/22 08:06 Dose: 25 mg Documented By: DELLA Montelukast Sodium (Montelukast Sodium 10 Mg Tablet) 10 mg PO BEDTIME [facility] Last Admin: 12/24/22 23:35 Dose: 10 mg Documented By: OSMEL Omeprazole (Omeprazole 20 Mg Capsule.Dr) 20 mg PO BID@0630,1630 [facility] Last Admin: 12/25/22 05:47 Dose: Not Given Documented By: OSMEL Non-Admin Reason: Patient Refused Ondansetron HCl (Ondansetron Hcl 4 Mg/2 Ml Vial) 4 mg IVPUSH Q8H PRN PRN Reason: Nausea and Vomiting Oxybutynin Chloride (Oxybutynin Chloride Er 5 Mg Tab.Er.24) 5 mg PO DAILY [facility] Last Admin: 12/25/22 08:14 Dose: Not Given Documented By: DELLA Non-Admin Reason: Patient Refused Pharmacy Consult (Consult Rx Perform Med Rec) 1 each MISCELLANE ONCE PRN PRN Reason: Consult order Prednisone (Prednisone 5 Mg Tablet) 5 mg PO DAILY [facility] Last Admin: 12/25/22 08:06 Dose: 5 mg Documented By: DELLA Risperidone (Risperidone 0.25 Mg Tablet) 0.25 mg PO BEDTIME [facility] Last Admin: 12/24/22 23:35 Dose: 0.25 mg Documented By: OSMEL Sodium Chloride (0.9 % Sodium Chloride Flush 3 Ml Syringe) [facility] Last Admin: 12/25/22 08:06 Dose: 3 ml Documented By: DELLA Thiamine HCl (Thiamine Hcl 100 Mg Tablet) 100 mg PO DAILY [facility] Last Admin: 12/25/22 08:06 Dose: 100 mg Documented By: DELLA Tramadol HCl (Tramadol Hcl 50 Mg Tablet) 25 mg PO BID [facility] Last Admin: 12/25/22 08:06 Dose: 25 mg Documented By: DELLA Labs 12/23/22 11:53 12/25/22 05:59 Labs: Laboratory Results - last 24 hr 12/24/22 12/24/22 12/25/22 15:13 15:13 05:59 Anion Gap 16 18 Estim Creat Clear Calc 23.5 22.4 Estimated GFR 38 36 Random Glucose 179 H 85 Calcium 9.0 9.1 Magnesium 2.1 B-Natriuretic Peptide 600 H 12/25/22 05:59 Anion Gap Estim Creat Clear Calc Estimated GFR Random Glucose Calcium Magnesium B-Natriuretic Peptide 447 H Microbiology Microbiology Results: Microbiology 12/23/22 Unknown Urine Culture - Final Urine clean catch - Urine mcdonald top 12/23/22 11:53 Blood Culture - Preliminary Blood - Venous No growth after 24 hours. 12/23/22 11:53 Blood Culture - Preliminary Blood - Venous No growth after 24 hours. Assessment and Plan (1) Acute and chronic respiratory failure with hypoxia: Status: Acute (2) Acute exacerbation of congestive heart failure: Status: Acute (3) Right lower lobe pneumonia: Status: Acute Plan Pt is an 82-year-old female with a PMH significant for?COPD, CAD, paroxysmal AFib not on anticoagulation, dementia, VRE UTI, HLD, hx of Pseudomonas pneumonia from aspiration previously on inhaled tobramycin, and HFrEF who presents from home to the ED with?worsening SOB and cough. Pt will be admitted to the hospital for treatment further evaluation of acute hypoxic respiratory failure in setting of aspiration pneumonia and CHF exacerbation. Acute hypoxic respiratory failure in the setting of sepsis 2/2 pneumonia CXR showed moderate right pleural effusion associated atelectasis CT of chest showing collapsed lung with mucus plug pending cultures continue Zosyn 3.37 mg IV Q 6, started 12/23/2022 Mucomyst neb CPT repeated CXR showing mild improvement Pulm to decide for possible bronchoscopy Titrate supplemental O2 >92, wean as tolerated Follow cultures Acute on chronic HFrEF exacerbation Continue Furosemide 40 mg IV b.i.d. Follow lytes, MG, I/O Daily weights, low-salt diet Elevated troponin Patient's troponin 60.7, similar to previous on 11/02/2022 EKG without ischemic changes, patient asymptomatic: Denies chest pain/pressure Likely type 2 in the setting of demand ischemia Monitor on telemetry COPD Pt with wheezing and rhonci on exam Continue home inhalers Duonebs prn UTI Finish bactrim, 2 more days of treatment Paroxysmal AFib Not on anticoagulation due to history of bleeding Continue Chronic anemia Stable, at baseline Full Code DVT Prophylaxis: Pnuematic boots Pt will require a hospitalization of [facility] for treatment of acute hypoxic respiratory failure in the setting of aspiration pneumonia and acute CHF exacerbation. Time Spent With Patient Time: Total time managing care of this patient today ____ minutes. Quality Stroke Does the patient have a stroke diagnosis?: No VTE Prior VTE?: No VTE Risk Level:: Medical - moderate - high VTE Device Contraindication: N/A - Device Ordered VTE Drug Contraindication: Treatment Not Indicated
[2022-12-25 12:03] LABS: Glucose, Whole Blood 175 mg/dL (60-115)
[2022-12-25] MEDS: Montelukast Sodium 10 MG TABLET PO (20:41)
[2022-12-25] MEDS: Atorvastatin Calcium 40 MG TABLET PO (20:42)
[2022-12-25] MEDS: risperiDONE 0.25 MG TABLET PO (20:43)
[2022-12-26] VITALS (8 sets, daily range): BP systolic 120–130; BP diastolic 56–67; PULSE 67–98; RESP 18–20; TEMP 36.1–36.7; O2SAT 95–98
[2022-12-26] MEDS: Piperacillin Sodium/Tazobactam 3.375 GM in 0.9 % Sodium Chloride 50 ML IV ×4 (00:09→16:49)
[2022-12-26] MEDS: oxyBUTYnin chloride ER 5 MG TAB.ER.24 PO (08:26)
[2022-12-26] MEDS: Ferrous Sulfate 324 MG TABLET.DR PO (08:27)
[2022-12-26] MEDS: Isosorbide Mononitrate 30 MG TAB.ER.24H PO (08:27)
[2022-12-26] MEDS: predniSONE 5 MG TABLET PO (08:27)
[2022-12-26] MEDS: Magnesium Oxide 400 MG TABLET PO ×2 (08:27→16:48)
[2022-12-26] MEDS: traMADoL HCL 50 MG TABLET 25 MG PO (08:27)
[2022-12-26] MEDS: Aspirin Enteric Coated 81 MG TABLET.DR PO (08:29)
[2022-12-26] MEDS: Thiamine HCL 100 MG TABLET PO (08:29)
[2022-12-26] MEDS: Docusate Sodium 100 MG CAPSULE PO (08:29)
[2022-12-26] MEDS: Metoprolol Tartrate 25 MG TABLET PO (08:29)
[2022-12-26] MEDS: 0.9 % Sodium Chloride Flush 3 ML SYRINGE IVFLUSH ×2 (08:30→16:49)
[2022-12-26] MEDS: Furosemide 40 MG/4 ML VIAL IVPUSH (08:30)
[2022-12-26] MEDS: Fluticasone Propionate Nasal 16 GM SPRAY 1 SPRAY NOSTRIL-B (08:30)
[2022-12-26] MEDS: Acetylcysteine 10 % 400 MG/4 ML VIAL INHALE ×3 (08:51→19:28)
[2022-12-26] MEDS: levalbuterol HCL 1.25 MG/3 ML VIAL.NEB INHALE ×3 (08:51→19:28)
[2022-12-26 09:56] LABS: Anion Gap 17 (12-20); Blood Urea Nitrogen 14 mg/dL (9-16); Calcium 9.1 mg/dL (8.4-10.2); Carbon Dioxide 27 mmol/L (22-29); Chloride 100 mmol/L (96-108); Creatinine Clr Calc Pharmacy 19.6; Estimated Glomerular Filt Rate 31; Glucose Random 119 mg/dL (60-115); Potassium 3.6 mmol/L (3.3-5.1); Sodium 140 mmol/L (135-145)
[2022-12-26 10:05] LABS: B Type Natriuretic Peptide 359 pg/mL (<100)
--- NOTE | 2022-12-26 13:30 | HO.PM.IMPN ---
Subjective Subjective Date of Service: 12/26/22 Interval History: Seen and evaluated Feels better, weaning down O2 to room air still having mild SOB No other overnight events Review of Systems Cough Weakness Review of Systems: Yes all other systems are reviewed and are negative Physical Exam Vital Signs: Vital Signs: Last Vital Signs Temp 96.9 F 12/26/22 11:05 Pulse 90 12/26/22 13:17 Resp 18 12/26/22 13:17 BP 127/60 12/26/22 11:05 Pulse Ox 96 12/26/22 11:05 O2 Del Method Room Air 12/26/22 11:05 O2 Flow Rate 3 12/25/22 12:00 Oxygen Flow Rate 4 12/23/22 11:07 BMI result Body Mass Index 24.0 Const: Other: Constitutional : Awake, interactive, not in distress Neck : Normal inspection, Supple Cardiovascular : RRR, no JVP, no lower extremity edema Respiratory : fair bilateral air entry, decreased at the right base with dullness on percussion, basal fine crackles, no wheezes or rhonchi Gastrointestinal:? soft, lax, Normal bowel sounds, Non tender Skin : Warm, Dry, fungal infx in skin folds Neurological : Alert & oriented to self and place, No focal deficit Objective Data Active Medications Acetaminophen (Acetaminophen 325 Mg Tablet) 650 mg PO Q6H PRN PRN Reason: Pain, Mild (Pain Scale 1-3) Acetylcysteine (Acetylcysteine 10 % 400 Mg/4 Ml Vial) 400 mg INHALE RQ4H WHILE AWAKE [facility] Last Admin: 12/26/22 13:15 Dose: 400 mg Documented By: JOSE Albuterol Sulfate (Albuterol Sulfate 90 Mcg 8 Gm Inhaler) 2 puff INHALE Q4H PRN PRN Reason: Shortness Of Breath Or Wheezin Albuterol/Ipratropium (Albuterol/Iprat 2.5/0.5mg 3 Ml Ampul.Neb) 3 ml INHALE RQ4H WHILE AWAKE PRN PRN Reason: Shortness of Breath/Wheezing Last Admin: 12/24/22 19:41 Dose: 3 ml Documented By: MARY Aspirin (Aspirin Enteric Coated 81 Mg Tablet.) 81 mg PO DAILY [facility] Last Admin: 12/26/22 08:29 Dose: 81 mg Documented By: LORENA Atorvastatin Calcium (Atorvastatin Calcium 40 Mg Tablet) 40 mg PO BEDTIME [facility] Last Admin: 12/25/22 20:42 Dose: 40 mg Documented By: IRAJ Docusate Sodium (Docusate Sodium 100 Mg Capsule) 100 mg PO DAILY PRN PRN Reason: Constipation Docusate Sodium (Docusate Sodium 100 Mg Capsule) 100 mg PO DAILY [facility] Last Admin: 12/26/22 08:29 Dose: 100 mg Documented By: LORENA Ferrous Sulfate (Ferrous Sulfate 324 Mg Tablet.Dr) 324 mg PO DAILY [facility] Last Admin: 12/26/22 08:27 Dose: 324 mg Documented By: LORENA Fluticasone Propionate (Fluticasone Propionate 100 Mcg Blst.W.Dev) 2 puff INHALE RBID [facility] Last Admin: 12/26/22 08:56 Dose: Not Given Documented By: JOSE Non-Admin Reason: pt refused Fluticasone Propionate (Fluticasone Propionate Nasal 16 Gm [place]) 1 spray NOSTRIL-B BID [facility] Last Admin: 12/26/22 08:30 Dose: 1 spray Documented By: LORENA Furosemide (Furosemide 40 Mg/4 Ml Vial) 40 mg IVPUSH BID@0900,1800 [facility]; Protocol Last Admin: 12/26/22 08:30 Dose: 40 mg Documented By: LORENA Piperacillin Sod/Tazobactam (Sod 3.375 gm/ Sodium Chloride) 50 mls @ 100 mls/hr IV Q6H [facility] Last Admin: 12/26/22 12:00 Dose: 100 mls/hr Documented By: LORENA Isosorbide Mononitrate (Isosorbide Mononitrate 30 Mg Tab.Er.24h) 30 mg PO DAILY [facility]; Protocol Last Admin: 12/26/22 08:27 Dose: 30 mg Documented By: LORENA Levalbuterol HCl (Levalbuterol Hcl 1.25 Mg/3 Ml Vial.Neb) 1.25 mg INHALE RTID [facility] Last Admin: 12/26/22 13:15 Dose: 1.25 mg Documented By: JOSE Loperamide HCl (Loperamide Hcl 2 Mg Capsule) 2 mg PO Q4H PRN PRN Reason: diarrhea Magnesium Oxide (Magnesium Oxide 400 Mg Tablet) 400 mg PO BIDPC [facility] Last Admin: 12/26/22 08:27 Dose: 400 mg Documented By: LORENA Metoprolol Tartrate (Metoprolol Tartrate 25 Mg Tablet) 25 mg PO BID [facility]; Protocol Last Admin: 12/26/22 08:29 Dose: 25 mg Documented By: OLRENA Montelukast Sodium (Montelukast Sodium 10 Mg Tablet) 10 mg PO BEDTIME [facility] Last Admin: 12/25/22 20:41 Dose: 10 mg Documented By: IRAJ Omeprazole (Omeprazole 20 Mg Capsule.Dr) 20 mg PO BID@0630,1630 [facility] Last Admin: 12/26/22 05:25 Dose: Not Given Documented By: CARTER Non-Admin Reason: Patient Refused Ondansetron HCl (Ondansetron Hcl 4 Mg/2 Ml Vial) 4 mg IVPUSH Q8H PRN PRN Reason: Nausea and Vomiting Oxybutynin Chloride (Oxybutynin Chloride Er 5 Mg Tab.Er.24) 5 mg PO DAILY [facility] Last Admin: 12/26/22 08:26 Dose: 5 mg Documented By: LORENA Pharmacy Consult (Consult Rx Perform Med Rec) 1 each MISCELLANE ONCE PRN PRN Reason: Consult order Prednisone (Prednisone 5 Mg Tablet) 5 mg PO DAILY [facility] Last Admin: 12/26/22 08:27 Dose: 5 mg Documented By: LORENA Risperidone (Risperidone 0.25 Mg Tablet) 0.25 mg PO BEDTIME [facility] Last Admin: 12/25/22 20:43 Dose: 0.25 mg Documented By: IRAJ Sodium Chloride (0.9 % Sodium Chloride Flush 3 Ml Syringe) [facility] Last Admin: 12/26/22 08:30 Dose: 3 ml Documented By: LORENA Thiamine HCl (Thiamine Hcl 100 Mg Tablet) 100 mg PO DAILY [facility] Last Admin: 12/26/22 08:29 Dose: 100 mg Documented By: LORENA Tramadol HCl (Tramadol Hcl 50 Mg Tablet) 25 mg PO BID [facility] Last Admin: 12/26/22 08:27 Dose: 25 mg Documented By: LORENA Labs 12/23/22 11:53 12/26/22 09:25 Labs: Laboratory Results - last 24 hr 12/26/22 12/26/22 09:25 09:25 Anion Gap 17 Estim Creat Clear Calc 19.6 Estimated GFR 31 Random Glucose 119 H Calcium 9.1 B-Natriuretic Peptide 359 H Microbiology Microbiology Results: Microbiology 12/23/22 11:53 Blood Culture - Preliminary Blood - Venous No growth after 48 hours. 12/23/22 11:53 Blood Culture - Preliminary Blood - Venous No growth after 48 hours. Assessment and Plan (1) Acute and chronic respiratory failure with hypoxia: Status: Acute (2) Right lower lobe pneumonia: Status: Acute (3) Acute exacerbation of congestive heart failure: Status: Acute Plan Pt is an 82-year-old female with a PMH significant for?COPD, CAD, paroxysmal AFib not on anticoagulation, dementia, VRE UTI, HLD, hx of Pseudomonas pneumonia from aspiration previously on inhaled tobramycin, and HFrEF who presents from home to the ED with?worsening SOB and cough. Pt will be admitted to the hospital for treatment further evaluation of acute hypoxic respiratory failure in setting of aspiration pneumonia and CHF exacerbation. Acute hypoxic respiratory failure in the setting of sepsis 2/[address] of chest showing collapsed lung with mucus plug Negative cultures continue Zosyn 3.37 mg IV Q 6, started 12/23/2022 Mucomyst neb CPT repeated CXR showing mild improvement Pulm to decide for possible bronchoscopy Titrate supplemental O2 >92 Follow cultures Acute on chronic HFrEF exacerbation Decrease Furosemide 40 mg IV daily Follow lytes, MG, I/O Daily weights, low-salt diet Elevated troponin Patient's troponin 60.7, similar to previous on 11/02/2022 EKG without ischemic changes, patient asymptomatic: Denies chest pain/pressure Likely type 2 in the setting of demand ischemia Monitor on telemetry COPD Pt with wheezing and rhonci on exam Continue home inhalers Duonebs prn UTI Finished bactrim DS Paroxysmal AFib Not on anticoagulation due to history of bleeding Continue Chronic anemia Stable, at baseline Full Code DVT Prophylaxis: Pnuematic boots Pt will require a hospitalization of [facility] for treatment of of aspiration pneumonia and acute CHF exacerbation pending safe discharge plan Time Spent With Patient Time: Total time managing care of this patient today ____ minutes. Quality Stroke Does the patient have a stroke diagnosis?: No VTE Prior VTE?: No VTE Risk Level:: Medical - moderate - high VTE Device Contraindication: N/A - Device Ordered VTE Drug Contraindication: Treatment Not Indicated
--- NOTE | 2022-12-26 16:26 | P.CDIM_ITS ---
PROVIDER RESPONSE TEXT: To clarify, the appropriate diagnosis supported by the clinical indicators: Demand ischemia only QUERY TEXT: PHYSICIAN'S DOCUMENTATION REQUEST Date of Query: 12/26/2022 09:17 AM EDT Patient Name: Jenifer Mercado Admit Date: 12/23/2022 Dear Maddy Christiansen, A review of the medical record indicates additional documentation may be needed. Please review below and update the documentation accordingly. Clinical Indicators: PN 12/25 - elevated troponin 60.7 EKG without ischemic changes, patient asymptomatic: denies chest pain/pressure. Likely type 2 in the setting of demand ischemia. Monitor on telemetry Based on the above, could you clarify the appropriate diagnosis, if significant, that supports the ab ove abnormalities and additional evaluation, monitoring, and/or treatment rendered: Myocardial infarction Type 2 Myocardial infarction Type 1 (NSTEMI) Demand ischemia only Other Other (explain)Clinically unable to determine (explain)Thank you, Radha Preciado, CCS, CDIS Use of terms such as suspected, likely, concern for, or probable (associated with a specific diagnosi s that is being evaluated, monitored, or treated as if it exists) are acceptable and can be coded in the inpatient se tting, when documented at the time of discharge. Please use your independent medical judgment in providing your response. THIS QUERY IS PART OF THE PERMANENT MEDICAL RECORD
--- NOTE | 2022-12-26 16:26 | P.CDIM_ITS ---
PROVIDER RESPONSE TEXT: To clarify, the appropriate diagnosis supported by the clinical indicators: COPD without exacerbation QUERY TEXT: PHYSICIAN'S DOCUMENTATION REQUEST Date of Query: 12/26/2022 10:22 AM EDT Patient Name: Jenifer Mercado Admit Date: 12/23/2022 Dear Maddy Christiansen, A review of the medical record indicates additional documentation may be needed. Please review below and update the documentation accordingly. Clinical Indicators: PN: COPD Patient with wheezing and rhonci on exam continue home inhalers Duonebs prn Clarify which of the following accurately represents the exacerbation of the documented COPD: Possible options might include: COPD with exacerbation COPD without exacerbation Other Other (explain)Clinically unable to determine (explain)Thank you, Radha Preciado, CCS, CDIS Use of terms such as suspected, likely, concern for, or probable (associated with a specific diagnosi s that is being evaluated, monitored, or treated as if it exists) are acceptable and can be coded in the inpatient se tting, when documented at the time of discharge. Please use your independent medical judgment in providing your response. THIS QUERY IS PART OF THE PERMANENT MEDICAL RECORD
--- NOTE | 2022-12-26 16:53 | MHC.CM.PN ---
EMR REVIEWED, CM MET W/PT AND DTR AT BEDSIDE, PT REQUESTING UPDATE AND TO SPEAK W/HOSPITALIST, HOSPITALIST AWARE AND MET W/PT/DTR AT BEDSIDE, DTR AWARE THE PLAN WILL BE FOR PT TO BE CLEARED TOMORROW AND PT RECOMMENDED HOME PT, PT'S DTR REPORTS SHE IS ACTIVE W/P.T. THROUGH [facility], CM WILL CONT TO FOLLOW D/C NEEDS.
[2022-12-27] MEDS: 0.9 % Sodium Chloride Flush 3 ML SYRINGE IVFLUSH (01:29)
--- NOTE | 2022-12-27 01:33 | PC.NURSE ---
Pt refused IV antibiotics for 00:00. Attempted to educate pt on importance of abx, pt grew more agitated and began yelling at RN. Documented MAR appropriately. aware.
[2022-12-27 03:34] VITALS: PULSE 94; RESP 20; TEMP 36.2; O2SAT 95
[2022-12-27] MEDS: Piperacillin Sodium/Tazobactam 3.375 GM in 0.9 % Sodium Chloride 50 ML IV ×2 (06:19→12:31)
[2022-12-27 07:17] VITALS: BP 136/70; PULSE 94; RESP 18; TEMP 36.3; O2SAT 93
[2022-12-27 07:35] LABS: Anion Gap 17 (12-20); Blood Urea Nitrogen 15 mg/dL (9-16); Calcium 8.8 mg/dL (8.4-10.2); Carbon Dioxide 27 mmol/L (22-29); Chloride 99 mmol/L (96-108); Creatinine Clr Calc Pharmacy 22.1; Estimated Glomerular Filt Rate 35; Glucose Random 90 mg/dL (60-115); Potassium 2.9 mmol/L (3.3-5.1); Sodium 140 mmol/L (135-145)
[2022-12-27 07:43] LABS: B Type Natriuretic Peptide 302 pg/mL (<100)
--- NOTE | 2022-12-27 10:20 | P.DS_ITS ---
DS: Providers Provider Date of Service: 12/27/22 Date of admission: 12/23/22 15:19 Primary care physician: Monica Arciniega MD Consults: 12/24/22 07:35 Consult to Pulmonology Routine Consulting Provider: [facility] [place] [facility] [place] Reason for consultation: mucous plugging of central bronchi of the right middle lobe with middle lob DS: Diagnosis Discharge Diagnosis (1) Acute and chronic respiratory failure with hypoxia: Status: Acute (2) Right lower lobe pneumonia: Status: Acute (3) Acute exacerbation of congestive heart failure: Status: Acute DS: Summary Hospital Course Hospital Course: from initial hpi: 82-year-old female with a PMH significant for COPD, CAD, paroxysmal AFib not on anticoagulation, dementia, VRE UTI, HLD, hx of Pseudomonas pneumonia from aspiration previously on inhaled tobramycin, and HFrEF who presents from home to the ED with worsening SOB and cough. Pt was discharged two days prior from the hospital where she was being treated for metabolic encephalopathy in the setting of UTI, discharged home on 4 days of Bactrim. Since discharge patient states she has been experiencing increased shortness of breath and wheezing. Patient lives with her daughter who notes pt was tachycardic and hypoxic yesterday. Patient has supplemental O2 at home p.r.n. but has never needed it until last night. Pt had difficulty sleeping last night and was up most of the night coughing. This morning pt was worse and EMS was called. Patient was placed on CPAP by EMS due to hypoxia and accessory muscle use. Patient denies chest pain/pressure, palpitations. No fever, chills, nausea, vomiting, diarrhea, abdominal pain. In the ED patient was afebrile but tachycardic up to 118 D, tachypneic up to 32, and satting at 86% on 4L NC. Labs were significant for stable H&H of 9.5/30.7, MCV 101.3, AST 58, ALT 51, alk-phos of 163, initial troponin is 60.7, BNP of 1014. Electrolytes WNL. CXR showed moderate right pleural effusion and associated atelectasis or consolidation in the right lung base, worse than 3 days prior on 12/20/2022. CT of chest pending. EKG demonstrated a flutter with variable AV block and ST and T-wave abnormalities. Pt was treated with vanc and Zosyn, and IV Lasix 60 mg. Pt will be admitted to the hospital for treatment further evaluation of acute hypoxic respiratory failure in setting of aspiration pneumonia and CHF exacerbation. hospital course: Patient was admitted for sepsis secondary to aspiration pneumonia complicated by acute hypoxic respiratory failure. CT chest showed collapsed lung with mucus plug. She was true with IV Zosyn and Mucomyst repeat x-ray showed improvement. Patient was weaned off oxygen and started to feel much better. She will be discharged on 5 more days of Augmentin. Her acute on chronic systolic CHF she was treated with IV Lasix and diuresed well. Her COPD she was continued on bronchodilators. She completed her Bactrim course for UTI which was diagnosed on previous admission. Fractures measured fibrillation she is not on anticoagulation due to history of severe bruising and bleeding from skin tears. She was continued on metoprolol. Her chronic anemia is at baseline. For coronary disease she was continued on antiplatelet and statin. For acute hypokalemia she was given supplement and will continue 20 mg potassium daily. Patient is feeling much better will be discharged home. Time Spent with Patient Time attestation: Total time managing care of this patient today ____ minutes. Discharge coordination time: Greater than 30 minutes Quality: Safe Use of Opioids Does Pt have an Active Cancer Diagnosis on the Problem List?: No Quality: Stroke Does the patient have a stroke diagnosis?: No Physical Exam Vital Signs: Vital Signs: Last Vital Signs Temp 97.4 F 12/27/22 07:17 Pulse 94 12/27/22 07:17 Resp 18 12/27/22 07:17 BP 136/70 12/27/22 07:17 Pulse Ox 93 12/27/22 07:17 O2 Del Method Room Air 12/27/22 07:17 O2 Flow Rate 3 12/25/22 12:00 Oxygen Flow Rate 4 12/23/22 11:07 BMI result Body Mass Index 24.0 Const: Other: Constitutional : Awake, interactive, not in distress Neck : Normal inspection, Supple Cardiovascular : RRR, no JVP, no lower extremity edema Respiratory : fair bilateral air entry, decreased at the right base with dullness on percussion, basal fine crackles, no wheezes or rhonchi Gastrointestinal:? soft, lax, Normal bowel sounds, Non tender Skin : Warm, Dry, fungal infx in skin folds Neurological : Alert & oriented to self and place, No focal deficit DS: Data Data Completed and Pending Completed studies during hospitalization [Text1]: Procedures Supplement Abdominal Wall with Synthetic Substitute, Open Approach (09/17/22) Transfusion of Nonautologous Red Blood Cells into Peripheral Vein, Percutaneous Approach (04/06/22) Labs on day of discharge: Laboratory Results - last 24 hr 12/27/22 12/27/22 07:02 07:02 Sodium 140 Potassium 2.9 L Chloride 99 Carbon Dioxide 27 Anion Gap 17 BUN 15 Creatinine 1.42 H Estim Creat Clear Calc 22.1 Estimated GFR 35 Random Glucose 90 Calcium 8.8 B-Natriuretic Peptide 302 H Preliminary micro results at discharge 12/23/22 11:53 Blood Culture - Preliminary Blood - Venous No growth after 48 hours. 12/23/22 11:53 Blood Culture - Preliminary Blood - Venous No growth after 48 hours. Discharge Plan Discharge Anticipated Discharge Date/Time: 12/27/22 10:15 Patient Disposition: Home Health Service Discharge Diagnosis: chf, copd, pna Referrals: Monica Arciniega MD [Primary Care Provider] - 1 Week Discharge Medications: New amoxicillin-pot clavulanate 875-125 mg tablet 1 tab PO BID Qty: 10 0RF potassium chloride 20 mEq tablet extended release 20 meq PO DAILY Qty: 30 0RF Continued ferrous sulfate 325 mg (65 mg iron) tablet 325 mg PO DAILY 0RF (DME) Aerochamber MV Spacer See Rx Instructions .ROUTE .MEDSUPPLY Qty: 1 0RF Rx Instructions: As directed Anoro Ellipta 62.5-25 mcg/actuation blister with device 1 ea inhalation DAILY isosorbide mononitrate 30 mg tablet extended release 24 hr 30 mg PO DAILY thiamine HCl (vitamin B1) 100 mg tablet 100 mg PO DAILY aspirin 81 mg tablet,delayed release (DR/EC) 81 mg PO DAILY pantoprazole 40 mg tablet,delayed release (DR/EC) 40 mg PO BID albuterol sulfate [Ventolin HFA] 90 mcg/actuation HFA aerosol inhaler 2 puff INHALATION Q4-6H PRN (Reason: Shortness Of Breath Or Wheezing) levalbuterol HCl 1.25 mg/3 mL solution for nebulization 1.25 mg inhalation TID torsemide 20 mg tablet 20 mg PO DAILY Qty: 30 0RF metoprolol tartrate 25 mg Tablet 25 mg PO BID 30 Days Qty: 60 0RF Protocol: Hold for SBP/HR < HOLD for SBP < : 90 HOLD for HR < : 60 atorvastatin [Lipitor] 40 mg tablet 40 mg PO BEDTIME Qty: 30 0RF risperidone 0.25 mg tablet 0.25 mg PO BEDTIME fluticasone propionate [Flovent HFA] 110 mcg/actuation HFA aerosol inhaler 2 puff INHALATION BID PRN (Reason: Shortness Of Breath Or Wheezing) magnesium oxide 400 mg (241.3 mg magnesium) Tablet 400 mg PO BIDPC Qty: 60 0RF nystatin 100,000 unit/gram Powder 1 appl topical BID Qty: 60 2RF Protocol: Apply to: Apply to: Abdominal Fold loperamide 2 mg Capsule 2 mg PO Q4H PRN (Reason: diarrhea) Qty: 20 0RF docusate sodium 100 mg capsule 100 mg PO DAILY fluticasone propionate 50 mcg/actuation spray,suspension 1 spray intranasal BID Rx Instructions: 1 spray into each nostril montelukast 10 mg tablet 10 mg PO BEDTIME oxybutynin chloride 5 mg tablet extended release 24hr 5 mg PO DAILY tramadol 50 mg tablet 25 mg PO BID (DME) nebulizers Kit See Rx Instructions .ROUTE Rx Instructions: As directed prednisone 5 mg tablet 5 mg PO DAILY 30 Days Qty: 30 4RF Discontinued sulfamethoxazole-trimethoprim 800-160 mg Tablet 1 tab PO Q12H Qty: 8 0RF Discharge Orders: Discharge Order (Routine); Ordered 12/27/22 Ordered By: Yohannes Guzman Diet: Advance to usual diet Activity on Discharge: As tolerated Stand Alone Forms: Patient Portal Discharge page Care Plan Goals: recovery, avoid hospitalizations Health Concerns: chf, copd, pna Plan of Treatment: 5 more days augmentin, added daily potassium Assessment: see above
[2022-12-27] MEDS: Potassium Chloride ER 20 MEQ TAB.ER.PRT 40 MEQ PO (10:22)
[2022-12-27] MEDS: traMADoL HCL 50 MG TABLET 25 MG PO (10:23)
[2022-12-27] MEDS: Metoprolol Tartrate 25 MG TABLET PO (10:24)
[2022-12-27] MEDS: Aspirin Enteric Coated 81 MG TABLET.DR PO (10:24)
[2022-12-27] MEDS: Thiamine HCL 100 MG TABLET PO (10:25)
[2022-12-27] MEDS: Isosorbide Mononitrate 30 MG TAB.ER.24H PO (10:26)
[2022-12-27] MEDS: Furosemide 40 MG/4 ML VIAL IVPUSH (10:27)
[2022-12-27 11:11] VITALS: BP 135/65; PULSE 20; RESP 18; TEMP 36.5; O2SAT 97
[2022-12-27] MEDS: Acetylcysteine 10 % 400 MG/4 ML VIAL INHALE (11:25)
[2022-12-27] MEDS: levalbuterol HCL 1.25 MG/3 ML VIAL.NEB INHALE (11:25)
[2022-12-27 11:34] VITALS: PULSE 77; RESP 20; O2SAT 95
--- NOTE | 2022-12-27 14:49 | MHC.CM.PN ---
Second IMM given 12/27. Pt medically cleared for D/C home with resumption of [facility] PT services. Transport via [facility] at 4:30pm.
== END 2022-12-27 17:06 | disposition home health service (06) | DRG 871 ==
LOC: HO.ED 12:30 → HO.EDOVER 15:51 → HO.IMC 17:18
PROVIDERS: Physician Assistant; Student in an Organized Health Care Education/Training Program; Admitting Provider Student in an Organized Health Care Education/Training Program; Emergency Provider Emergency Medicine; PCP Internal Medicine; Visit Provider Internal Medicine
DX: A41.9 Sepsis, unspecified organism (principal); I50.23 Acute on chronic systolic (congestive) heart failure; J96.21 Acute and chronic respiratory failure with hypoxia; J69.0 Pneumonitis due to inhalation of food and vomit; J44.0 Chronic obstructive pulmonary disease with (acute) lower respiratory infection; N39.0 Urinary tract infection, site not specified; J98.11 Atelectasis; I24.8 Other forms of acute ischemic heart disease; T17.590A Other foreign object in bronchus causing asphyxiation, initial encounter; F03.90 Unspecified dementia, unspecified severity, without behavioral disturbance, psychotic disturbance, mood disturbance, and anxiety; Z20.822 Contact with and (suspected) exposure to COVID-19; Z87.440 Personal history of urinary (tract) infections; Z79.82 Long term (current) use of aspirin; Z79.51 Long term (current) use of inhaled steroids; Z79.899 Other long term (current) drug therapy
CPT/HCPCS: 36415; 71045; 71250; 80048; 80076; 81001; 82947; 83605; 83735; 83880; 84145; 84484; 85025; 87040; 87086; 87635; 93005; 94640; 97162; 99285; J1940; J2543; J3371

== ENCOUNTER → 2022-12-23 11:07 | Outpatient (BNV) | payer OTHER, SELFPAY | PROVIDERS: Admitting Provider Student in an Organized Health Care Education/Training Program; Emergency Provider Emergency Medicine; PCP Internal Medicine; Visit Provider Internal Medicine Cardiovascular Disease | DX: R06.02 Shortness of breath (principal) | CPT/HCPCS: 93010 ==

== ENCOUNTER → 2022-12-23 15:19 | Outpatient (BNV) | payer OTHER, SELFPAY | PROVIDERS: Admitting Provider Student in an Organized Health Care Education/Training Program; Emergency Provider Emergency Medicine; PCP Internal Medicine; Visit Provider Hospitalist | DX: J96.21 Acute and chronic respiratory failure with hypoxia (principal); J18.9 Pneumonia, unspecified organism; G93.41 Metabolic encephalopathy | CPT/HCPCS: 99223 ==

== ENCOUNTER → 2022-12-23 15:19 | Outpatient (BNV) | payer OTHER, SELFPAY | PROVIDERS: Admitting Provider Student in an Organized Health Care Education/Training Program; Emergency Provider Emergency Medicine; PCP Internal Medicine; Visit Provider Student in an Organized Health Care Education/Training Program | DX: J96.21 Acute and chronic respiratory failure with hypoxia (principal); I50.9 Heart failure, unspecified; J18.9 Pneumonia, unspecified organism | CPT/HCPCS: 99223; 99232; 99233; 99239 ==

== ENCOUNTER 2023-01-13 15:54 | Inpatient (IN) | payer OTHER, SELFPAY ==
--- NOTE | ~2023-01-13 | CT_ITS ---
EXAMINATION: CT CHEST WITHOUT CONTRAST CLINICAL INFORMATION: Shortness of breath. COMPARISON: CT chest 12/23/2022. Chest x-ray 01/13/2023 TECHNIQUE: Multidetector volumetric CT imaging of the chest was done. Axial MIP volume rendering provided. Sagittal and coronal reformatted images were obtained. This CT examination was performed using dose optimization techniques as appropriate, variously including the following: *Automated exposure control *Adjustment of mA and/or kV according to patient size (this includes techniques or standardized protocols for targeted exams where dose is matched to indication/reason for exam; i.e. extremities or head) *Use of iterative reconstruction technique DLP: 292 mGy-cm FINDINGS: LUNGS: Consolidation/atelectasis of the right lower lobe. Difficult to assess the hilar structures due to consolidation, pleural effusion and lack of IV contrast. This is similar to CAT scan 12/23/2022. Left lung normally aerated. MEDIASTINUM: Heart size is enlarged. No pericardial effusion. No mediastinal mass or significant lymphadenopathy. Vascular calcifications of aorta and great vessel. CORONARY ARTERY CALCIFICATION: Coronary calcifications present. PLEURA: Moderate volume right pleural effusion. This is unchanged since CAT scan 12/23/2022. No left pleural effusion. The previously seen small left pleural effusion on CAT scan 12/23/2022 has resolved. AXILLA: No lymphadenopathy. UPPER ABDOMEN: Status post cholecystectomy. Contrast opacifying the collecting system of both kidneys. Patient did receive IV contrast for CAT scan abdomen pelvis study performed earlier today. 1.4 cm cystic lesion of the tail the pancreas redemonstrated. OSSEOUS STRUCTURES: Status post median sternotomy. Multilevel degenerative spondylosis spine. Compression deformity of the T8, T9 and T12 vertebrae. Marked joint narrowing of the right glenohumeral joint. Osseous sclerosis and remodeling of the glenoid. CT/CT chest wo IV con IMPRESSION: 1. Consolidation/atelectasis of the right lower lobe. 2. Moderate volume right pleural effusion. 3. Cardiomegaly. Fleischner guidelines were followed.
--- NOTE | ~2023-01-13 | CT_ITS ---
EXAMINATION: CT ABDOMEN AND PELVIS WITH CONTRAST CLINICAL INFORMATION: Abdominal pain, diarrhea. COMPARISON: CT chest 12/23/2022. CT abdomen/pelvis 11/02/2022. TECHNIQUE: Multidetector volumetric images were obtained from the superior aspect of the liver through the pubic symphysis following administration 85 mL of Omnipaque 350 intravenous contrast. Sagittal and coronal reformatted images were obtained on the technologist's workstation. Oral contrast: No This CT examination was performed using dose optimization techniques as appropriate, variously including the following: *Automated exposure control *Adjustment of mA and/or kV according to patient size (this includes techniques or standardized protocols for targeted exams where dose is matched to indication/reason for exam; i.e. extremities or head) *Use of iterative reconstruction technique DLP: 806 mGy-cm FINDINGS: LUNG BASES: Persistent collapse of the right lower lobe with a small right-sided pleural effusion, overall similar compared to CT chest from 12/23/2022. Partially imaged cardiomegaly with extensive coronary artery calcifications. LIVER, GALLBLADDER, AND BILIARY TREE: The liver is normal in size, shape, and attenuation. No focal hepatic lesion. Cholecystectomy. Stable biliary ductal dilatation compared to 11/02/2022, common bile duct measures up to 0.8 cm in diameter.. PANCREAS: Atrophic. No significant peripancreatic fat stranding or free fluid. A 1.4 cm cystic appearing observation in the tail of the pancreas is unchanged compared to a baseline examination from 08/23/2022. No main duct dilatation. SPLEEN: Unremarkable. ADRENAL GLANDS: Stable asymmetric prominence of the left adrenal gland. KIDNEYS AND URETERS: A few too small to characterize cortical hypodensities are favored to represent simple cysts for which no imaging follow-up is recommended. Symmetric nephrograms. No hydronephrosis. No significant perinephric fat stranding. BLADDER: Unremarkable. GASTROINTESTINAL TRACT: The stomach and the small bowel are nondilated. Normal appendix. Colonic wall thickening with mild pericolonic fat stranding in the region of the descending colon. No pneumatosis or free air. No organized extraluminal collection. Chronic rectal wall thickening. ABDOMINAL WALL: Anterior abdominal rectus muscle diastases. Mild skin thickening/stranding in the umbilical region. Anterior upper abdominal fat-containing hernia axial image 220 series 3. Small bilateral fat-containing inguinal hernias. LYMPH NODES: Scattered prominent mesenteric lymph nodes as well as pelvic lymph nodes are not significantly changed. VASCULAR: Extensive atherosclerotic disease. Abdominal aorta is normal in caliber. Main portal vein is patent. PELVIC VISCERA: Suspect endometrial thickening measuring up to 0.8 cm. OSSEOUS STRUCTURES: Chronic stable compression deformities at T12 and L5. Chronic mid sacral deformity sagittal image 64 series 7. Chronic right-sided 10th, 11th and 12th rib fractures with callus formation. Advanced degenerative changes of the spine. Mitchel right-sided hip arthroplasty is partially included within the [id number]. CT/CT abdomen pelvis w IV con IMPRESSION: 1. Colonic wall thickening and pericolonic fat stranding in the region of the descending colon, most consistent with acute colitis. Background of extensive atherosclerotic disease, ischemic colitis is not excluded. 2. Some degree of chronic rectal wall thickening which could be seen with an infectious/inflammatory process. If the patient is due, correlation with colonoscopy is advised to rule out malignancy. 3. Suspect endometrial thickening measuring up to 0.8 cm. Recommend CELL MANAGER referral and further evaluation with a nonemergent pelvic ultrasound. 4. Mild skin thickening/stranding in the umbilical region, correlate clinically for cellulitis. 5. Persistent collapse of the right lower lobe with a small right-sided pleural effusion, overall similar compared to CT chest from 12/23/2022.
--- NOTE | ~2023-01-13 | XR_ITS ---
EXAMINATION: XR CHEST CLINICAL INFORMATION: Shortness of breath, cough. COMPARISON: Chest radiograph 12/27/2022. TECHNIQUE: Frontal view of the chest was obtained. FINDINGS: Low lung volumes limiting assessment of parenchymal details. Overall similar appearance of the cardiomediastinal silhouette with midline sternotomy wires and mediastinal surgical clips. Slightly increased central peribronchial opacities and bibasilar platelike opacities. No large pleural effusion, although evaluation is limited due to poor inspiratory effort. No pneumothorax. No displaced osseous fractures. XR/XR chest 1V IMPRESSION: Findings are most suggestive with worsening mild pulmonary edema and/or atypical infection. Increased bibasilar subsegmental atelectasis. A repeat imaging with improved inspiratory effort or and lateral views could be obtained as clinically indicated.
[2023-01-13 16:01] VITALS: BP 100/50; PULSE 78; O2SAT 95
--- NOTE | 2023-01-13 16:03 | ECG_ITS ---
Test Reason : DIARRHEA Blood Pressure : / mmHG Vent. Rate : 076 BPM Atrial Rate : 278 BPM P-R Int : 000 ms QRS Dur : 090 ms QT Int : 336 ms P-R-T Axes : 146 -11 153 degrees QTc Int : 378 ms Atrial flutter with variable A-V block with premature ventricular or aberrantly conducted complexes Anterior infarct (cited on or before 23-DEC-2022) Abnormal ECG When compared with ECG of 23-DEC-2022 11:13, No significant changes seen Referred By: Kajal Del Cid Electronically Signed By:ANETTE CABEZAS
[2023-01-13 16:11] VITALS: BP 129/64; PULSE 77; RESP 18; TEMP 36.9; O2SAT 97; BMI 26.7
--- NOTE | 2023-01-13 16:22 | PC.NURSE ---
pt a&ox3, vss, afib on the monitoring analyst. pt comes in from home via ems - pt has had diarrhea for the past 4-5 days. pt states medication that she has been taking has not been working. daughter states that she had blood drawn yesterday and PCP called to notify pt and daughter (health care proxy) that her potassium was low (2.0) provider bedside. call nur placed within reach.
--- NOTE | 2023-01-13 16:30 | ED_ITS ---
HPI - General Adult General Chief complaint: Nausea/Vomiting/Diarrhea Stated complaint: ABNORMAL LABS DIARRHEA X 1 WEEK Time Seen by Provider: 01/13/23 16:03 Source: patient Mode of arrival: ambulatory Limitations: no limitations History of Present Illness HPI narrative: This is an 82-year-old female history of a flutter, CANDIDO, COPD, pseudomonal pneumonia presenting to the emergency department for evaluation of abdominal pain, diarrhea for the past 7-8 days, according to patient's family member/daughter who is at the bedside patient is having frequent loose stools completely watery, yellow/green/dark black. Patient was recently on Augmentin about 2 weeks ago. Family member states she is going to the bathroom more times than she can count. Some associated fatigue and malaise. Patient is not on blood thinners only on baby aspirin. Patient denies chest pain, shortness of breath, nausea, vomiting, headache, vision changes, dizziness, weakness. To mention, patient's daughter is also concerned of hypokalemia, patient had labs done a few days ago which showed hypokalemia, patient has been taking p.o. potassium at. Related Data Home Medications Medication Instructions Recorded Confirmed fluticasone propionate 50 1 spray intranasal BID 03/22/22 01/13/23 mcg/actuation nasal spray,suspension montelukast 10 mg tablet 10 mg PO BEDTIME 03/22/22 01/13/23 nebulizers 03/22/22 07/04/22 oxybutynin chloride 5 mg 5 mg PO DAILY 03/22/22 01/13/23 tablet,extended release 24 hr tramadol 50 mg tablet 25 mg PO DAILY 03/22/22 01/13/23 umeclidinium 62.5 mcg-vilanterol 1 ea inhalation DAILY 05/24/22 01/13/23 25 mcg/actuation powdr for inhalation (Anoro Ellipta) albuterol sulfate 90 mcg/actuation 2 puff inhalation Q4-6H PRN 11/02/22 01/13/23 aerosol inhaler (Ventolin HFA) Shortness Of Breath Or Wheezing aspirin 81 mg tablet,delayed 81 mg PO DAILY 11/02/22 01/13/23 release isosorbide mononitrate 30 mg 30 mg PO DAILY 11/02/22 01/13/23 tablet,extended release 24 hr levalbuterol HCl 1.25 mg/3 mL 1.25 mg inhalation TID 11/02/22 01/13/23 solution for nebulization pantoprazole 40 mg tablet,delayed 40 mg PO BID 11/02/22 01/13/23 release thiamine HCl (vitamin B1) 100 mg 100 mg PO BID 11/02/22 01/13/23 tablet risperidone 0.25 mg tablet 0.25 mg PO DAILY 12/16/22 01/13/23 acetaminophen 325 mg tablet 650 mg PO Q6H PRN Pain 01/13/23 01/13/23 magnesium oxide 400 mg (241.3 mg 400 mg PO BEDTIME 01/13/23 01/13/23 magnesium) tablet multivitamin 1 tab PO DAILY 01/13/23 01/13/23 potassium 99 mg tablet 99 mg PO DAILY 01/13/23 01/13/23 potassium chloride 20 mEq 40 meq PO DAILY 01/13/23 01/13/23 tablet,extended release quetiapine 50 mg tablet 50 mg PO BEDTIME 01/13/23 01/13/23 torsemide 20 mg tablet 20 mg PO DAILY 01/13/23 01/13/23 Previous Rx's Medication Instructions Recorded ferrous sulfate 325 mg (65 mg 325 mg PO DAILY 09/28/22 iron) tablet prednisone 5 mg tablet 5 mg PO DAILY 30 days #30 tabs 10/03/22 inhalational spacing device #1 ea 10/07/22 (Aerochamber MV spacer) atorvastatin 40 mg tablet (Lipitor) 40 mg PO BEDTIME #30 tabs 10/10/22 metoprolol tartrate 25 mg tablet 25 mg PO BID 30 days #60 tabs 11/11/22 loperamide 2 mg capsule 2 mg PO Q4H PRN diarrhea #20 caps 12/21/22 nystatin 100,000 unit/gram topical 1 appl topical BID #60 grams 12/21/22 powder Allergies Allergy/AdvReac Type Severity Reaction Status Date / Time carvedilol Allergy Shortness Verified 10/04/22 14:13 of Breath sertraline [From Zoloft] Allergy Shortness Verified 10/04/22 14:13 of Breath spironolactone Allergy Shortness Verified 10/04/22 14:13 of Breath adhesive tape AdvReac Severe skin tears Verified 12/20/22 13:43 mirtazapine AdvReac Severe psychotic Verified 01/13/23 16:11 episode Review of Systems Review of Systems: Constitutional : No Weight loss, No Fever, No Chills, + Fatigue, + Malaise ENT/Mouth : No sore throat, No Rhinorrhea Eyes: No Eye Pain, No Swelling, No Redness Cardiovascular : No Chest Pain, No SOB, No Dyspnea on Exertion, No Orthopnea, No Edema, No Palpitations Respiratory : No Cough, No Sputum, No Wheezing Gastrointestinal : No Nausea, No Vomiting, + Diarrhea, No Constipation, + abdominal Pain, No Hematochezia, No Melena Genitourinary : No Dysuria, No Urinary Frequency, No Hematuria, Musculoskeletal : No joint pain, No Myalgias, No Joint Swelling Skin : No Skin Lesions, No rash Neuro : No Weakness, No Numbness, No Dizziness, No Headache Psych : No Anxiety/Panic, No Depression All other systems reviewed and are negative Yes all other systems are reviewed and are negative [facility] Past Medical History Attestation statement: The following information was validated with the patient. Source: old records reviewed Medical History A-fib Acute encephalopathy Acute hypokalemia Acute respiratory failure with hypoxia Anemia Anemia Aspiration pneumonia Atelectasis of right lung Atrial fibrillation with RVR Atrial flutter Bronchiectasis CAD (coronary artery disease) Chronic dyspnea Congestive heart failure COPD (chronic obstructive pulmonary disease) COPD (chronic obstructive pulmonary disease) Dyspnea Encephalopathy chronic GI bleed Heart failure History of infection with vancomycin resistant Enterococcus (VRE) Paroxysmal A-fib Pseudomonal pneumonia Pseudomonas respiratory infection Pulmonary nodules Pyuria Surgical History H/O umbilical hernia repair (09/18/22) History of cholecystectomy History of hip replacement History of knee replacement History of quadruple bypass Family History Family History Other No family history of cancer Social History Social History Household Members: Children Housing: House Are you a primary resident care manager to a significant other at home: No Do you presently have visiting nurse or other home services: Yes (pt cannot recall what services specifically but reports has services) Alcohol intake: never Patient Tobacco Use Status: Never used Tobacco Tobacco use type: Cigarette Smoked in Last 30 Days: No Use of substances other than those prescribed or required for medical reasons: No Advance Directives: Yes Advance Directives on File: Yes Advance Directives Date on File: 08/24/22 service: No Current occupational status: retired Physical Exam ED Vital Signs: Vital Signs - 24 hr 01/13/23 16:11 01/13/23 17:26 01/13/23 17:41 Temperature 98.4 F Pulse Rate 77 79 77 Respiratory Rate 18 18 19 Blood Pressure 129/64 128/61 120/52 L Pulse Oximetry 97 93 93 Oxygen Delivery Method Room Air Room Air Room Air 01/13/23 20:11 01/13/23 23:26 Temperature Pulse Rate 72 70 Respiratory Rate 19 17 Blood Pressure 136/67 111/53 L Pulse Oximetry 93 97 Oxygen Delivery Method Room Air Room Air BMI result Body Mass Index 26.7 Vital signs stayed Appearance: Alert.? Oriented X3.? No acute distress.? Head: Normocephalic, atraumatic, no step-offs or deformities Eyes: Pupils equal, round and reactive to light.? Neck: Normal inspection.? Neck supple.? CVS: Normal heart rate and rhythm.? Pulses normal.? Respiratory: No respiratory distress.? Breath sounds faint crackles to b/l lower lobes.? Abdomen: Soft and diffuse significant tenderness throughout..? Skin: Skin warm and dry.? Normal skin color.? Normal skin turgor.? Extremities: No lower extremity edema.? No calf ttp. 5/5 strength to bilateral upper and lower extremities Neuro: Oriented X 3.? No motor deficit.? No sensory deficit. CN 2-12 intact Course Reevaluation(s) Reevaluation #1: CBC with white count 13.1, normocytic anemia baseline noted. Chemistry with elevated BUN likely secondary to poor p.o. intake/dehydration. Bilirubin 1.2 abdomen scan pending. Troponin 27, repeat 27.7, no chest pain, unlikely ACS, EKG nonischemic, patient has a flutter baseline. BNP 188, appears to be around patient's baseline. Time: 17:00 Reevaluation #2: Patient unable to give us a stool sample. CT abdomen and pelvic with colonic wall thickening and pericolonic fat stranding in the region of the descending colon consistent with colitis. Some degree of chronic rectal wall thickening. Suspected endometrial thickening. Mild skin think pain and stranding in the umb ilical region. No signs of cellulitis on exam. Patient is still unable to give us a stool cm Time: 18:30 Reevaluation #3: Patient's daughter complains that patient has been having productive cough, she tells me she checked patient's oxygen yesterday and was below 90 which is atypical for her, resolved after. Chest x-ray showing findings suspicious for move possible worsening mild pulmonary edema and/or atypical infection. Dry chest CT ordered. I do not suspect PE. No need for CTA. Time: 00:10 Additional Reevaluation(s): Chest CT concerning for possible right lower lobe consolidation. Ceftriaxone added to medication list. Lactic acid normal. I do not suspect ischemic colitis Medications Administered Discontinued Medications Generic Name Dose Route Start Last Admin Trade Name Freq PRN Reason Stop Dose Admin Metronidazole 500 mg in 100 mls @ 100 mls/hr 01/13/23 20:28 01/13/23 22:59 Flagyl IV 01/13/23 21:27 Infused ONCE ONE Infusion Ceftriaxone Sodium 1 gm/ 50 mls @ 100 mls/hr 01/14/23 00:03 01/14/23 00:26 Sodium Chloride IV 01/14/23 00:32 100 mls/hr ONCE ONE Administration Iohexol 100 ml 01/13/23 18:29 01/13/23 18:30 Iohexol 350 Mg/Ml 100 Ml Infus..Btl IV 01/13/23 18:30 85 ml ONCE ONE Administration Quetiapine Fumarate 50 mg 01/13/23 22:42 01/13/23 22:59 Quetiapine Fumarate 50 Mg Tablet PO 01/13/23 22:43 50 mg ONCE ONE Administration Medical Decision Making Medical Decision Making [facility] Narrative: 1631 [age] old female presents with diffuse abdominal pain, abundant diarrhea for over a week, patient was recently on Augmentin. Physical exam diffuse abdominal tenderness. Patient in a flutter irregularly irregular rhythm. Crackles to b/l lower lobes. History and physical exam concerning for possible C diff versus colitis versus metabolic derangement versus dehydration. Unlikely acute abdomen, appendicitis, cholecystitis, pancreatitis, diverticulitis, ischemic colitis Plan at this time labs, imaging, stool studies Differential Diagnosis Differential Diagnoses: The differential diagnosis associated with the present ation includes History and physical exam concerning for possible C diff versus colitis versus metabolic derangement versus dehydration. Unlikely acute abdomen, appendicitis, cholecystitis, pancreatitis, diverticulitis, ischemic colitis Admission/Observation Consideration of admission/observation: Escalation of care including admission/observation considered Possible hospital admission Lab Data MDM Lab Attestation statement: I reviewed the patient's lab results. 01/13/23 17:02 01/13/23 17:02 Labs: Lab Results 01/13/23 01/13/23 01/13/23 Range/Units 17:02 17:02 17:02 WBC 13.1 H (4.8-10.8) X10*3/uL RBC 3.26 L (4.20-5.50) X10*6/uL Hgb 10.3 L (12.0-16.0) g/dl Hct 31.8 L (37.0-47.0) % MCV 97.5 (80.0-98.0) fL MCH 31.6 (27.0-33.0) pg MCHC 32.4 (31.0-35.0) g/dl RDW 14.9 (11.0-16.0) % Plt Count 190 (160-400) X10*3/uL MPV 11.9 (9.4-12.3) fL Immature Gran % (Auto) 0.4 (0.0-0.4) % Neut % (Auto) 86.5 H (45-73) % Lymph % (Auto) 8.0 L (20-40) % Craven % (Auto) 3.4 (2-11) % Eos % (Auto) 1.3 (0-4) % Baso % (Auto) 0.4 (0-2) % Lymph # (Auto) 1.1 L (1.2-4.9) X10*3/uL Craven # (Auto) 0.4 (0.1-1.2) X10*3/uL Eos # (Auto) 0.2 (0.0-0.4) X10*3/uL Baso # (Auto) 0.1 (0.0-0.2) X10*3/uL Abs Immat Gran (auto) 0.05 H (0.00-0.03) X10*3/uL Absolute Neuts (auto) 11.3 H (2.0-8.3) x10*3/uL Absolute Nucleated RBC 0.000 (0.0-0.012) X10*3/uL Nucleated RBC % (auto) 0.0 (0.0-0.2) /100WBC Sodium 139 (135-145) mmol/L Potassium 3.4 (3.3-5.1) mmol/L Chloride 101 (96-108) mmol/L Carbon Dioxide 25 (22-29) mmol/L Anion Gap 16 (12-20) BUN 22 H (9-16) mg/dL Creatinine 0.97 (0.5-1.4) mg/dL Estim Creat Clear Calc 32.5 Estimated GFR 55 Random Glucose 213 H (60-115) mg/dL Lactic Acid (0.5-2.0) mmol/L Calcium 8.5 (8.4-10.2) mg/dL Magnesium 1.8 (1.6-2.6) mg/dL Total Bilirubin 1.2 H (0.0-1.0) mg/dL AST 26 (5-31) U/L ALT 24 (0-31) U/L Alkaline Phosphatase 103 (39-117) U/L Troponin I High Sens 27.0 H D (<3.5-17.0) ng/L B-Natriuretic Peptide (<100) pg/mL Total Protein 6.3 L (6.5-8.0) g/dL Albumin 3.1 L (3.5-5.0) g/dL Lipase 5 L (8-78) U/L 01/13/23 01/13/23 01/13/23 Range/Units 17:02 20:50 20:50 WBC (4.8-10.8) X10*3/uL RBC (4.20-5.50) X10*6/uL Hgb (12.0-16.0) g/dl Hct (37.0-47.0) % MCV (80.0-98.0) fL MCH (27.0-33.0) pg MCHC (31.0-35.0) g/dl RDW (11.0-16.0) % Plt Count (160-400) X10*3/uL MPV (9.4-12.3) fL Immature Gran % (Auto) (0.0-0.4) % Neut % (Auto) (45-73) % Lymph % (Auto) (20-40) % Craven % (Auto) (2-11) % Eos % (Auto) (0-4) % Baso % (Auto) (0-2) % Lymph # (Auto) (1.2-4.9) X10*3/uL Craven # (Auto) (0.1-1.2) X10*3/uL Eos # (Auto) (0.0-0.4) X10*3/uL Baso # (Auto) (0.0-0.2) X10*3/uL Abs Immat Gran (auto) (0.00-0.03) X10*3/uL Absolute Neuts (auto) (2.0-8.3) x10*3/uL Absolute Nucleated RBC (0.0-0.012) X10*3/uL Nucleated RBC % (auto) (0.0-0.2) /100WBC Sodium (135-145) mmol/L Potassium (3.3-5.1) mmol/L Chloride (96-108) mmol/L Carbon Dioxide (22-29) mmol/L Anion Gap (12-20) BUN (9-16) mg/dL Creatinine (0.5-1.4) mg/dL Estim Creat Clear Calc Estimated GFR Random Glucose (60-115) mg/dL Lactic Acid 1.6 (0.5-2.0) mmol/L Calcium (8.4-10.2) mg/dL Magnesium (1.6-2.6) mg/dL Total Bilirubin (0.0-1.0) mg/dL AST (5-31) U/L ALT (0-31) U/L Alkaline Phosphatase (39-117) U/L Troponin I High Sens 27.7 H (<3.5-17.0) ng/L B-Natriuretic Peptide 188 H (<100) pg/mL Total Protein (6.5-8.0) g/dL Albumin (3.5-5.0) g/dL Lipase (8-78) U/L Independent Interpretation I performed an independent interpretation of an: CT Scan Radiology Impression Discussion of test interpretation with radiology: I have reviewed the radiologist's reading. Core Measures AMI core measures followed: Yes Measure exclusions: not indicated Critical Care Time Critical Care Time Critical Care Time: Yes Total Critical Care Time: 35 Attestation: I attest to this time spent taking care of the patient, obtaining history, physical, reviewing labs, imaging, speaking to my attending, speaking to specialist. Discharge Plan Discharge Clinical Impression: Pneumonia, Colitis Patient Disposition: Admitted As Inpatient
[2023-01-13 17:09] LABS: MANUAL DIFF FLAG NO
[2023-01-13 17:26] VITALS: BP 128/61; PULSE 79; RESP 18; O2SAT 93
[2023-01-13 17:34] LABS: Basophils Absolute Auto 0.1 X10*3/uL (0.0-0.2); Basophils Percent Auto 0.4 % (0-2); Eosinophils Absolute Auto 0.2 X10*3/uL (0.0-0.4); Eosinophils Percent Auto 1.3 % (0-4); Hematocrit 31.8 % (37.0-47.0); Hemoglobin 10.3 g/dl (12.0-16.0); Imm Gran Abs Auto 0.05 X10*3/uL (0.00-0.03); Imm Gran Pct Auto 0.4 % (0.0-0.4); Lymphocytes Absolute Auto 1.1 X10*3/uL (1.2-4.9); Mean Corpuscular HGB Conc 32.4 g/dl (31.0-35.0); Mean Corpuscular Hemoglobin 31.6 pg (27.0-33.0); Mean Corpuscular Volume 97.5 fL (80.0-98.0); Mean Platelet Volume 11.9 fL (9.4-12.3); Monocytes Absolute Auto 0.4 X10*3/uL (0.1-1.2); Monocytes Percent Auto 3.4 % (2-11); Neutrophils Absolute Auto 11.3 x10*3/uL (2.0-8.3); Neutrophils Percent Auto 86.5 % (45-73); Platelet Count 190 X10*3/uL (160-400); Red Blood Count 3.26 X10*6/uL (4.20-5.50); Red Cell Distribution Width 14.9 % (11.0-16.0); White Blood Count 13.1 X10*3/uL (4.8-10.8)
[2023-01-13 17:41] VITALS: BP 120/52; PULSE 77; RESP 19; O2SAT 93
--- NOTE | 2023-01-13 17:41 | PHA.MEDREC ---
Pharmacy Consult ? Medication Reconciliation Pharmacy has completed the medication reconciliation. Spoke with patient's daughter. Patient cannot take sertraline or spironolactione. Patient daughter report patient cannot have an inhaler corticosteriod, therefore she will bring in patient's Anoro inhaler if patient stays. Patient no longer taking Flovent. She reported as of today she was told to increase KCl tablet to 2 tablet. Patient refuses to take potassium packets. Patient has been off docusate for 2 weeks due to diarrhea. Tramadol is now only once a day, as they are trying to titrate her off. Nubia Dillon, PharmD
[2023-01-13 18:06] LABS: Alanine Aminotransferase 24 U/L (0-31); Albumin Level 3.1 g/dL (3.5-5.0); Alkaline Phosphatase 103 U/L (39-117); Anion Gap 16 (12-20); Aspartate Amino Transferase 26 U/L (5-31); Bilirubin Total 1.2 mg/dL (0.0-1.0); Blood Urea Nitrogen 22 mg/dL (9-16); Calcium 8.5 mg/dL (8.4-10.2); Carbon Dioxide 25 mmol/L (22-29); Chloride 101 mmol/L (96-108); Creatinine Clr Calc Pharmacy 32.5; Estimated Glomerular Filt Rate 55; Glucose Random 213 mg/dL (60-115); Lipase 5 U/L (8-78); Magnesium 1.8 mg/dL (1.6-2.6); Potassium 3.4 mmol/L (3.3-5.1); Sodium 139 mmol/L (135-145); Total Protein 6.3 g/dL (6.5-8.0)
[2023-01-13] MEDS: iohexoL 350 MG/ML 100 ML INFUS..BTL IV (18:30)
[2023-01-13 19:27] LABS: B Type Natriuretic Peptide 188 pg/mL (<100)
[2023-01-13 20:11] VITALS: BP 136/67; PULSE 72; RESP 19; O2SAT 93
--- NOTE | 2023-01-13 20:54 | PC.NURSE ---
labs drawn by tech
[2023-01-13 21:33] LABS: Lactic Acid 1.6 mmol/L (0.5-2.0)
[2023-01-13] MEDS: metroNIDAZOLE/NS 500 MG/100 ML PIGGYBACK 100 MG IV (21:33)
[2023-01-13 21:46] LABS: Troponin-I High Sensitivity 27.7 ng/L (<3.5-17.0)
--- NOTE | 2023-01-13 22:20 | PC.NURSE ---
Pt changed over in bed, brief was removed. Brief was saturated with urine, no evidence of a bowel movement present. [place] at bedside, along with pt's daughter. Pt is resting in bed with intermittent coughing with secretions. Pt IV IV in left AC appeared to be leaking, IV was removed and a new IV [id number] into the right AC. IV is patent and secure with antibiotics are running. Pt waiting chest XRay at this time.
[2023-01-13] MEDS: QUEtiapine Fumarate 50 MG TABLET PO (22:59)
[2023-01-13 23:26] VITALS: BP 111/53; PULSE 70; RESP 17; O2SAT 97
[2023-01-14] VITALS (10 sets, daily range): BP systolic 118–137; BP diastolic 57–66; PULSE 78–107; RESP 14–27; TEMP 36–36.9; O2SAT 85–97
[2023-01-14] MEDS: cefTRIAXone sodium 1 GM in 0.9 % Sodium Chloride 50 ML IV (00:26)
--- NOTE | 2023-01-14 01:00 | PM.IMHP ---
History of Present Illness Date of Service: 01/14/23 Chief Complaint: Diarrhea This is a 82-year-old female with pertinent history of dementia, paroxysmal atrial fibrillation not on anticoagulation, CAD, COPD, congestive heart failure, mixed hyperlipidemia who presents to the emergency department for evaluation of diarrhea. Patient is a poor historian and history is obtained by daughter at bedside. Daughter states that patient has had multiple episodes of diarrhea that began 5 days prior to presentation. Daughter states that she called her PCP and was asked to give loperamide. Patient had about 7-8 episodes of loose stools every day. The daughter thought that the stools were dark but did not see nathaly blood. Patient also complained of associated abdominal pain. No fever or chills. No cough. No chest discomfort, palpitations, shortness of breath. Patient was recently admitted for sepsis secondary to aspiration pneumonia and discharged on 12/27. She recently completed a course of Augmentin for aspiration pneumonia and Bactrim for UTI. In the emergency department, imaging concerning for colitis Review of Systems Constitutional: Constitutional: Reports fatigue, Reports lethargy and Reports malaise Cardiovascular: Cardiovascular: Reports no additional cardiovascular complaints Respiratory: Respiratory: Reports no additional respiratory complaints Gastrointestinal: Gastrointestinal: Reports abdominal pain and Reports diarrhea Endocrine: Endocrine: Reports fatigue PMFSH Medical History A-fib Acute encephalopathy Acute hypokalemia Acute respiratory failure with hypoxia Anemia Anemia Aspiration pneumonia Atelectasis of right lung Atrial fibrillation with RVR Atrial flutter Bronchiectasis CAD (coronary artery disease) Chronic dyspnea Congestive heart failure COPD (chronic obstructive pulmonary disease) COPD (chronic obstructive pulmonary disease) Dyspnea Encephalopathy chronic GI bleed Heart failure History of infection with vancomycin resistant Enterococcus (VRE) Paroxysmal A-fib Pseudomonal pneumonia Pseudomonas respiratory infection Pulmonary nodules Pyuria Family History Other No family history of cancer Surgical History H/O umbilical hernia repair (09/18/22) History of cholecystectomy History of hip replacement History of knee replacement History of quadruple bypass Social History Household Members: Children Housing: House Are you a primary healthcare specialist to a significant other at home: No Do you presently have visiting nurse or other home services: Yes (pt cannot recall what services specifically but reports has services) Alcohol intake: never Patient Tobacco Use Status: Never used Tobacco Tobacco use type: Cigarette Smoked in Last 30 Days: No Use of substances other than those prescribed or required for medical reasons: No Advance Directives: Yes Advance Directives on File: Yes Advance Directives Date on File: 08/24/22 service: No Current occupational status: retired Meds Allergies Allergy/AdvReac Type Severity Reaction Status Date / Time carvedilol Allergy Shortness Verified 10/04/22 14:13 of Breath sertraline [From Zoloft] Allergy Shortness Verified 10/04/22 14:13 of Breath spironolactone Allergy Shortness Verified 10/04/22 14:13 of Breath adhesive tape AdvReac Severe skin tears Verified 12/20/22 13:43 mirtazapine AdvReac Severe psychotic Verified 01/13/23 16:11 episode Active Medications: Current Medications Acetaminophen (Acetaminophen 325 Mg Tablet) 650 mg PO Q6H PRN PRN Reason: Pain, Mild (Pain Scale 1-3) Albuterol Sulfate (Albuterol Sulfate 90 Mcg 8 Gm Inhaler) 2 puff INHALE Q4H PRN PRN Reason: Shortness Of Breath Or Wheezing Ferrous Sulfate (Ferrous Sulfate 324 Mg Tablet.Dr) 324 mg PO DAILY [facility] Fluticasone Propionate (Fluticasone Propionate Nasal 16 Gm [place]) 1 spray NOSTRIL-B BID [facility] Levalbuterol HCl (Levalbuterol Hcl 1.25 Mg/3 Ml Vial.Neb) 1.25 mg INHALE TID [facility] Loperamide HCl (Loperamide Hcl 2 Mg Capsule) 2 mg PO Q4H PRN PRN Reason: diarrhea Magnesium Oxide (Magnesium Oxide 400 Mg Tablet) 400 mg PO BEDTIME [facility] Melatonin (Melatonin 3 Mg Tablet) 6 mg PO BEDTIME PRN PRN Reason: Insomnia Montelukast Sodium (Montelukast Sodium 10 Mg Tablet) 10 mg PO BEDTIME [facility] Multivitamins/Vitamin C (Multivitamin Tablet) 1 tab PO DAILY [facility] Non-Formulary Medication (Potassium) 99 mg PO DAILY [facility] Non-Formulary Medication (Umeclidinium-Vilanterol [Anoro Ellipta]) 1 each INHALE DAILY [facility] Nystatin (Nystatin Powder 15 Gm Bottle) 1 appl TOPICAL BID [facility]; Protocol Omeprazole (Omeprazole 20 Mg Capsule.Dr) 20 mg PO BID [facility] Ondansetron HCl (Ondansetron Hcl 4 Mg/2 Ml Vial) 4 mg IVPUSH Q8H PRN PRN Reason: Nausea and Vomiting Oxybutynin Chloride (Oxybutynin Chloride Er 5 Mg Tab.Er.24) 5 mg PO DAILY [facility] Pharmacy Consult (Consult Rx Perform Med Rec) 1 each MISCELLANE ONCE PRN PRN Reason: Consult order Potassium Chloride (Potassium Chloride Er 20 Meq Tab.Er.Prt) 40 meq PO DAILY [facility] Quetiapine Fumarate (Quetiapine Fumarate 50 Mg Tablet) 50 mg PO BEDTIME [facility] Risperidone (Risperidone 0.25 Mg Tablet) 0.25 mg PO DAILY [facility] Sodium Chloride (0.9 % Sodium Chloride Flush 3 Ml Syringe) 3 ml IVFLUSH QSHIFT [facility] Thiamine HCl (Thiamine Hcl 100 Mg Tablet) 100 mg PO BID [facility] Tramadol HCl (Tramadol Hcl 50 Mg Tablet) 25 mg PO DAILY [facility] Home Medications Medication Instructions Recorded Confirmed Last Taken Type fluticasone propionate 50 1 spray intranasal BID 03/22/22 01/13/23 01/13/23 History mcg/actuation nasal spray,suspension montelukast 10 mg tablet 10 mg PO BEDTIME 03/22/22 01/13/23 01/12/23 History nebulizers 03/22/22 07/04/22 Unknown History oxybutynin chloride 5 mg 5 mg PO DAILY 03/22/22 01/13/23 01/13/23 History tablet,extended release 24 hr tramadol 50 mg tablet 25 mg PO DAILY 03/22/22 01/13/23 01/13/23 History umeclidinium 62.5 mcg-vilanterol 1 ea inhalation DAILY 05/24/22 01/13/23 01/13/23 History 25 mcg/actuation powdr for inhalation (Anoro Ellipta) albuterol sulfate 90 mcg/actuation 2 puff inhalation Q4-6H PRN 11/02/22 01/13/23 01/13/23 History aerosol inhaler (Ventolin HFA) Shortness Of Breath Or Wheezing aspirin 81 mg tablet,delayed 81 mg PO DAILY 11/02/22 01/13/23 01/13/23 History release isosorbide mononitrate 30 mg 30 mg PO DAILY 11/02/22 01/13/23 01/13/23 History tablet,extended release 24 hr levalbuterol HCl 1.25 mg/3 mL 1.25 mg inhalation TID 11/02/22 01/13/23 01/13/23 History solution for nebulization pantoprazole 40 mg tablet,delayed 40 mg PO BID 11/02/22 01/13/23 01/13/23 History release thiamine HCl (vitamin B1) 100 mg 100 mg PO BID 11/02/22 01/13/23 01/13/23 History tablet risperidone 0.25 mg tablet 0.25 mg PO DAILY 12/16/22 01/13/23 01/13/23 History acetaminophen 325 mg tablet 650 mg PO Q6H PRN Pain 01/13/23 01/13/23 Unknown History magnesium oxide 400 mg (241.3 mg 400 mg PO BEDTIME 01/13/23 01/13/23 01/12/23 History magnesium) tablet multivitamin 1 tab PO DAILY 01/13/23 01/13/23 01/13/23 History potassium 99 mg tablet 99 mg PO DAILY 01/13/23 01/13/23 01/13/23 History potassium chloride 20 mEq 40 meq PO DAILY 01/13/23 01/13/23 01/13/23 History tablet,extended release quetiapine 50 mg tablet 50 mg PO BEDTIME 01/13/23 01/13/23 01/12/23 History torsemide 20 mg tablet 20 mg PO DAILY 01/13/23 01/13/23 01/13/23 History Physical Exam Vital Signs and Narrative: Vital Signs: Last Vital Signs Temp 98.4 F 01/13/23 16:11 Pulse 70 01/13/23 23:26 Resp 17 01/13/23 23:26 BP 111/53 L 01/13/23 23:26 Pulse Ox 97 01/13/23 23:26 O2 Del Method Room Air 01/13/23 23:26 BMI result Body Mass Index 26.7 Elderly female lying in bed in no distress Neck supple, no JVD Regular rate and rhythm, S1-S2 heard Right-sided crackles, no wheezing Abdomen with generalized tenderness to palpation, no rigidity Patient is awake, alert and oriented to self, place, disoriented to time and person ; no focal motor deficit Results Labs 01/13/23 17:02 01/13/23 17:02 Labs: Laboratory Results - last 24 hr 01/13/23 01/13/23 01/13/23 17:02 17:02 17:02 MCV 97.5 MCH 31.6 MCHC 32.4 RDW 14.9 Plt Count 190 MPV 11.9 Immature Gran % (Auto) 0.4 Neut % (Auto) 86.5 H Lymph % (Auto) 8.0 L Floyd % (Auto) 3.4 Eos % (Auto) 1.3 Baso % (Auto) 0.4 Lymph # (Auto) 1.1 L Floyd # (Auto) 0.4 Eos # (Auto) 0.2 Baso # (Auto) 0.1 Abs Immat Gran (auto) 0.05 H Absolute Neuts (auto) 11.3 H Absolute Nucleated RBC 0.000 Nucleated RBC % (auto) 0.0 Anion Gap 16 Estim Creat Clear Calc 32.5 Estimated GFR 55 Random Glucose 213 H Lactic Acid Calcium 8.5 Magnesium 1.8 Total Bilirubin 1.2 H AST 26 ALT 24 Alkaline Phosphatase 103 B-Natriuretic Peptide 188 H Total Protein 6.3 L Albumin 3.1 L Lipase 5 L 01/13/23 20:50 MCV MCH MCHC RDW Plt Count MPV Immature Gran % (Auto) Neut % (Auto) Lymph % (Auto) Floyd % (Auto) Eos % (Auto) Baso % (Auto) Lymph # (Auto) Floyd # (Auto) Eos # (Auto) Baso # (Auto) Abs Immat Gran (auto) Absolute Neuts (auto) Absolute Nucleated RBC Nucleated RBC % (auto) Anion Gap Estim Creat Clear Calc Estimated GFR Random Glucose Lactic Acid 1.6 Calcium Magnesium Total Bilirubin AST ALT Alkaline Phosphatase B-Natriuretic Peptide Total Protein Albumin Lipase Imaging Radiologist's Impressions: Impressions Abdomen/Pelvis CT 01/13/23 18:29 IMPRESSION: 1. Colonic wall thickening and pericolonic fat stranding in the region of the descending colon, most consistent with acute colitis. Background of extensive atherosclerotic disease, ischemic colitis is not excluded. 2. Some degree of chronic rectal wall thickening which could be seen with an infectious/inflammatory process. If the patient is due, correlation with colonoscopy is advised to rule out malignancy. 3. Suspect endometrial thickening measuring up to 0.8 cm. Recommend PUTAWAY DRIVER referral and further evaluation with a nonemergent pelvic ultrasound. 4. Mild skin thickening/stranding in the umbilical region, correlate clinically for cellulitis. 5. Persistent collapse of the right lower lobe with a small right-sided pleural effusion, overall similar compared to CT chest from 12/23/2022. Chest X-Ray 01/13/23 22:26 IMPRESSION: Findings are most suggestive with worsening mild pulmonary edema and/or atypical infection. Increased bibasilar subsegmental atelectasis. A repeat imaging with improved inspiratory effort or and lateral views could be obtained as clinically indicated. Chest CT 01/14/23 00:00 IMPRESSION: 1. Consolidation/atelectasis of the right lower lobe. 2. Moderate volume right pleural effusion. 3. Cardiomegaly. Fleischner guidelines were followed. Assessment and Plan (1) Colitis: Status: Acute Plan This is a 82-year-old female with pertinent history of dementia, paroxysmal atrial fibrillation not on anticoagulation, CAD, COPD, congestive heart failure, mixed hyperlipidemia who presents to the emergency department for evaluation of diarrhea and abdominal pain. #. Acute colitis. Resuscitating with IV crystalloids. Patient initiated on empiric IV antibiotics. Daughter reported dark stools, ?bloody. Differentials include C diff colitis as patient with recent p.o. antibiotics. Also patient with paroxysmal AFib not on anticoagulation, ischemic colitis isn't excluded. Will consult GI, appreciate assistance. Will keep patient NPO. C diff and fecal occult blood pending. #. Paroxysmal atrial fibrillation. Hold beta-jamel in the setting of colitis and multiple episodes of diarrhea #. Congestive heart failure with preserved ejection fraction. Hypovolemic upon admission. Hold diuretics and resume as appropriate #. COPD. Continue home inhaler. No exacerbation during admission #. Dementia with behavioral disturbances. Maintain sleep-wake cycle. On Seroquel and risperidone #. Chronic normocytic anemia. Hemoglobin above transfusion threshold #. Imaging with questionable right-sided consolidation. Patient with recent right-sided pneumonia and completed antibiotic course. No fever, chills, cough. DVT prophylaxis: Mechanical Full code NPO Admit as inpatient and will require two night minimum hospital stay for IV antibiotics. Specialist consult pending Time Spent With Patient Time: Total time managing care of this patient today ____ minutes. Quality Stroke Does the patient have a stroke diagnosis?: No VTE Prior VTE?: No VTE Risk Level:: Medical - moderate - high VTE Device Contraindication: N/A - Device Ordered VTE Drug Contraindication: Treatment Not Indicated
[2023-01-14] MEDS: Pantoprazole Sodium 40 MG/10 ML VIAL 80 MG IVPUSH (01:53)
[2023-01-14] MEDS: 0.9 % Sodium Chloride 500 ML IV (01:54)
[2023-01-14] MEDS: metroNIDAZOLE/NS 500 MG/100 ML PIGGYBACK 100 MG IV ×2 (05:26→15:29)
--- NOTE | 2023-01-14 07:38 | MHC.EDTECH ---
this pct went into patients room and she is was being verbally abusive to us techs,patient is very agitated RN aware
[2023-01-14 07:47] LABS: Glucose, Whole Blood 100 mg/dL (60-115)
--- NOTE | 2023-01-14 07:55 | PC.NURSE ---
paitnets o2 was 85% room air, she was placed on 2l NC, patient speaking in full sentences
[2023-01-14] MEDS: 0.9 % Sodium Chloride Flush 3 ML SYRINGE IVFLUSH ×3 (07:56→20:42)
--- NOTE | 2023-01-14 08:58 | PC.NURSE ---
patient does not want to wear oxygen, insistent of keeping it off. patient is wearing oxygen now and is sating 91% on 1l
[2023-01-14] MEDS: Potassium Chloride ER 20 MEQ TAB.ER.PRT 40 MEQ PO (09:11)
[2023-01-14] MEDS: Multivitamin TABLET 1 TAB PO (09:20)
[2023-01-14] MEDS: risperiDONE 0.25 MG TABLET PO (09:23)
[2023-01-14] MEDS: Metoprolol Tartrate 25 MG TABLET PO ×2 (09:25→20:43)
[2023-01-14] MEDS: oxyBUTYnin chloride ER 5 MG TAB.ER.24 PO (09:26)
[2023-01-14] MEDS: traMADoL HCL 50 MG TABLET 25 MG PO (09:28)
[2023-01-14] MEDS: Omeprazole 20 MG CAPSULE.DR PO ×2 (09:30→20:42)
[2023-01-14 09:32] LABS: C Reactive Protein 10.17 mg/dL (< or = 0.50)
[2023-01-14] MEDS: Thiamine HCL 100 MG TABLET PO ×2 (09:33→20:43)
[2023-01-14] MEDS: Isosorbide Mononitrate 30 MG TAB.ER.24H PO (09:35)
[2023-01-14] MEDS: Ferrous Sulfate 324 MG TABLET.DR PO (09:37)
[2023-01-14 09:48] LABS: Procalcitonin 0.14 ng/mL
[2023-01-14 10:21] LABS: Anion Gap 20 (12-20); Blood Urea Nitrogen 18 mg/dL (9-16); Calcium 8.4 mg/dL (8.4-10.2); Carbon Dioxide 20 mmol/L (22-29); Chloride 103 mmol/L (96-108); Creatinine Clr Calc Pharmacy 30.9; Estimated Glomerular Filt Rate 52; Glucose Random 113 mg/dL (60-115); Potassium 3.4 mmol/L (3.3-5.1); Sodium 140 mmol/L (135-145)
--- NOTE | 2023-01-14 11:12 | PM.GICN ---
History of Present Illness Data of Consult Service Date: 01/14/23 Requesting physician: Caridad Rodriguez Primary Care Provider: MD HOSEA Hernandez Reason for consult: Colitis This is an 82-year-old female past medical history of COPD, coronary artery disease, peripheral vascular disease, dementia, hyperlipidemia, paroxysmal atrial fibrillation not on anticoagulation, who presented to the hospital last night for abdominal pain and diarrhea. History obtained from the chart, and daughter s patient is a poor historian due to her underlying mental status. Reportedly, patient has been having loose watery stool for for almost a week prior to admission. These were initially attributed to antibiotic related diarrhea and pt was given Loperamide. However she continued to have profuse watery diarrhea despite it with significant electrolyte abnormalities and therefore she was brought to the emergency room. She does have recent antibiotic use prior to this, C diff is pending. In the emergency room, she was noted to be vitally stable. Labs showed elevated white count and Chem 7 with normal creatinine. CRP was elevated at 10.17. She underwent CT abdomen and pelvis with IV contrast that showed descending colon wall thickening with fat stranding. She has been started on ceftriaxone and Flagyl. Review of Systems Review of Systems: Yes all other systems are reviewed and are negative PMFSH Past Medical History Medical History A-fib Acute encephalopathy Acute hypokalemia Acute respiratory failure with hypoxia Anemia Anemia Aspiration pneumonia Atelectasis of right lung Atrial fibrillation with RVR Atrial flutter Bronchiectasis CAD (coronary artery disease) Chronic dyspnea Congestive heart failure COPD (chronic obstructive pulmonary disease) COPD (chronic obstructive pulmonary disease) Dyspnea Encephalopathy chronic GI bleed Heart failure History of infection with vancomycin resistant Enterococcus (VRE) Paroxysmal A-fib Pseudomonal pneumonia Pseudomonas respiratory infection Pulmonary nodules Pyuria Family History Family History Other No family history of cancer Surgical History Surgical History H/O umbilical hernia repair (09/18/22) History of cholecystectomy History of hip replacement History of knee replacement History of quadruple bypass Social History Social History Household Members: Family Housing: House Are you a primary neonatal critical care nurse to a significant other at home: No Do you presently have visiting nurse or other home services: No Alcohol intake: never Patient Tobacco Use Status: Never used Tobacco Tobacco use type: Cigarette Advance Directives Date on File: 08/24/22 service: No Current occupational status: retired Meds Allergies Allergy/AdvReac Type Severity Reaction Status Date / Time carvedilol Allergy Shortness Verified 10/04/22 14:13 of Breath sertraline [From Zoloft] Allergy Shortness Verified 10/04/22 14:13 of Breath spironolactone Allergy Shortness Verified 10/04/22 14:13 of Breath adhesive tape AdvReac Severe skin tears Verified 12/20/22 13:43 mirtazapine AdvReac Severe psychotic Verified 01/13/23 16:11 episode Active Medications: Current Medications Acetaminophen (Acetaminophen 325 Mg Tablet) 650 mg PO Q6H PRN PRN Reason: Pain, Mild (Pain Scale 1-3) Albuterol Sulfate (Albuterol Sulfate 90 Mcg 8 Gm Inhaler) 2 puff INHALE Q4H PRN PRN Reason: Shortness Of Breath Or Wheezing Atorvastatin Calcium (Atorvastatin Calcium 40 Mg Tablet) 40 mg PO BEDTIME [facility] Ferrous Sulfate (Ferrous Sulfate 324 Mg Tablet.) 324 mg PO DAILY [facility] Last Admin: 01/14/23 09:37 Dose: 324 mg Fluticasone Propionate (Fluticasone Propionate Nasal 16 Gm [place]) 1 spray NOSTRIL-B BID [facility] Last Admin: 01/14/23 10:14 Dose: Not Given Ceftriaxone Sodium 1 gm/ (Sodium Chloride) 50 mls @ 100 mls/hr IV DAILY@2200 [facility] Metronidazole (Flagyl) 500 mg in 100 mls @ 100 mls/hr IV Q8H [facility] Last Infusion: 01/14/23 06:38 Dose: Infused Isosorbide Mononitrate (Isosorbide Mononitrate 30 Mg Tab.Er.24h) 30 mg PO DAILY [facility]; Protocol Last Admin: 01/14/23 09:35 Dose: 30 mg Levalbuterol HCl (Levalbuterol Hcl 1.25 Mg/3 Ml Vial.Neb) 1.25 mg INHALE TID [facility] Last Admin: 01/14/23 07:35 Dose: Not Given Magnesium Oxide (Magnesium Oxide 400 Mg Tablet) 400 mg PO BEDTIME [facility] Melatonin (Melatonin 3 Mg Tablet) 6 mg PO BEDTIME PRN PRN Reason: Insomnia Metoprolol Tartrate (Metoprolol Tartrate 25 Mg Tablet) 25 mg PO BID [facility]; Protocol Last Admin: 01/14/23 09:25 Dose: 25 mg Montelukast Sodium (Montelukast Sodium 10 Mg Tablet) 10 mg PO BEDTIME [facility] Multivitamins/Vitamin C (Multivitamin Tablet) 1 tab PO DAILY [facility] Last Admin: 01/14/23 09:20 Dose: 1 tab Non-Formulary Medication (Umeclidinium-Vilanterol [Anoro Ellipta]) 1 each INHALE DAILY [facility] Nystatin (Nystatin Powder 15 Gm Bottle) 1 appl TOPICAL BID [facility]; Protocol Last Admin: 01/14/23 10:14 Dose: Not Given Omeprazole (Omeprazole 20 Mg Capsule.Dr) 20 mg PO BID [facility] Last Admin: 01/14/23 09:30 Dose: 20 mg Ondansetron HCl (Ondansetron Hcl 4 Mg/2 Ml Vial) 4 mg IVPUSH Q8H PRN PRN Reason: Nausea and Vomiting Oxybutynin Chloride (Oxybutynin Chloride Er 5 Mg Tab.Er.24) 5 mg PO DAILY [facility] Last Admin: 01/14/23 09:26 Dose: 5 mg Pharmacy Consult (Consult Rx Perform Med Rec) 1 each MISCELLANE ONCE PRN PRN Reason: Consult order Potassium Chloride (Potassium Chloride Er 20 Meq Tab.Er.Prt) 40 meq PO DAILY [facility] Last Admin: 01/14/23 09:11 Dose: 40 meq Prednisone (Prednisone 5 Mg Tablet) 5 mg PO DAILY [facility] Quetiapine Fumarate (Quetiapine Fumarate 50 Mg Tablet) 50 mg PO BEDTIME [facility] Risperidone (Risperidone 0.25 Mg Tablet) 0.25 mg PO DAILY [facility] Last Admin: 01/14/23 09:23 Dose: 0.25 mg Sodium Chloride (0.9 % Sodium Chloride Flush 3 Ml Syringe) 3 ml IVFLUSH QSHIFT [facility] Last Admin: 01/14/23 07:56 Dose: 3 ml Thiamine HCl (Thiamine Hcl 100 Mg Tablet) 100 mg PO BID [facility] Last Admin: 01/14/23 09:33 Dose: 100 mg Tramadol HCl (Tramadol Hcl 50 Mg Tablet) 25 mg PO DAILY [facility] Last Admin: 01/14/23 09:28 Dose: 25 mg Home Medications Medication Instructions Recorded Confirmed Last Taken Type fluticasone propionate 50 1 spray intranasal BID 03/22/22 01/13/23 01/13/23 History mcg/actuation nasal spray,suspension montelukast 10 mg tablet 10 mg PO BEDTIME 03/22/22 01/13/23 01/12/23 History nebulizers 03/22/22 07/04/22 Unknown History oxybutynin chloride 5 mg 5 mg PO DAILY 03/22/22 01/13/23 01/13/23 History tablet,extended release 24 hr tramadol 50 mg tablet 25 mg PO DAILY 03/22/22 01/13/23 01/13/23 History umeclidinium 62.5 mcg-vilanterol 1 ea inhalation DAILY 05/24/22 01/13/23 01/13/23 History 25 mcg/actuation powdr for inhalation (Anoro Ellipta) albuterol sulfate 90 mcg/actuation 2 puff inhalation Q4-6H PRN 11/02/22 01/13/23 01/13/23 History aerosol inhaler (Ventolin HFA) Shortness Of Breath Or Wheezing aspirin 81 mg tablet,delayed 81 mg PO DAILY 11/02/22 01/13/23 01/13/23 History release isosorbide mononitrate 30 mg 30 mg PO DAILY 11/02/22 01/13/23 01/13/23 History tablet,extended release 24 hr levalbuterol HCl 1.25 mg/3 mL 1.25 mg inhalation TID 11/02/22 01/13/23 01/13/23 History solution for nebulization pantoprazole 40 mg tablet,delayed 40 mg PO BID 11/02/22 01/13/23 01/13/23 History release thiamine HCl (vitamin B1) 100 mg 100 mg PO BID 11/02/22 01/13/23 01/13/23 History tablet risperidone 0.25 mg tablet 0.25 mg PO DAILY 12/16/22 01/13/23 01/13/23 History acetaminophen 325 mg tablet 650 mg PO Q6H PRN Pain 01/13/23 01/13/23 Unknown History magnesium oxide 400 mg (241.3 mg 400 mg PO BEDTIME 01/13/23 01/13/23 01/12/23 History magnesium) tablet multivitamin 1 tab PO DAILY 01/13/23 01/13/23 01/13/23 History potassium 99 mg tablet 99 mg PO DAILY 01/13/23 01/13/23 01/13/23 History potassium chloride 20 mEq 40 meq PO DAILY 01/13/23 01/13/23 01/13/23 History tablet,extended release quetiapine 50 mg tablet 50 mg PO BEDTIME 01/13/23 01/13/23 01/12/23 History torsemide 20 mg tablet 20 mg PO DAILY 01/13/23 01/13/23 01/13/23 History Physical Exam Vital Signs: Vital Signs: Last Vital Signs Temp 98.5 F 01/14/23 07:36 Pulse 106 H 01/14/23 07:54 Resp 27 H 01/14/23 07:54 BP 130/60 01/14/23 07:54 Pulse Ox 90 L 01/14/23 07:54 O2 Del Method Nasal Cannula 01/14/23 07:54 O2 Flow Rate 2 01/14/23 07:54 BMI result Body Mass Index 26.7 Gen appear: NAD, nontoxic appearing HEENT: nonicteric, no cervical lymphadenopathy Chest: CTA CVS: Regular S1/S2 Abd: soft, mild diffuse tenderness, nondistended, bowel sounds + Neuro: A/Ox2, noted to move all extremities spontaneously Psych: interacting appropriately Results Labs 01/13/23 17:02 01/14/23 09:04 Labs: Short CBC 01/13/23 Range/Units 17:02 WBC 13.1 H (4.8-10.8) X10*3/uL Hgb 10.3 L (12.0-16.0) g/dl Hct 31.8 L (37.0-47.0) % Plt Count 190 (160-400) X10*3/uL BMP 01/13/23 01/14/23 17:02 09:04 Sodium 139 140 Potassium 3.4 3.4 Chloride 101 103 Carbon Dioxide 25 20 L BUN 22 H 18 H Creatinine 0.97 1.02 Calcium 8.5 8.4 Liver Function 01/13/23 Range/Units 17:02 Total Bilirubin 1.2 H (0.0-1.0) mg/dL AST 26 (5-31) U/L ALT 24 (0-31) U/L Alkaline Phosphatase 103 (39-117) U/L Albumin 3.1 L (3.5-5.0) g/dL Assessment and Plan (1) Colitis: Status: Acute (2) Acute diarrhea: Status: Acute Plan Ddx include infectious vs ischemic colitis. Inflammatory colitis less likely due to acute onset. Recommendations: -agree with checking C diff and GI PCR panel -IV fluid resuscitation to match GI losses -clear liquid diet -serial abdominal exam -if infectious panel negative, will proceed with flexible sigmoidoscopy for endoscopic evaluation Thank you for allowing me to participate in her care. Please do not hesitate to reach out for any quesitons or concerns. Time Spent With Patient Time: Total time managing care of this patient today ____ minutes. Procedures Date of Service Date of Service: 01/15/23
--- NOTE | 2023-01-14 11:19 | PC.NURSE ---
patient refused to take prednisone until she talked to her daughter about the medication
--- NOTE | 2023-01-14 11:24 | PM.EVENT ---
Event Note Date of Service: 01/14/23 Event Note: Day hospitalist update S: c/o lower abd discomfort O: Temp Pulse Resp BP Pulse Ox O2 Del Method O2 Flow Rate 98.5 F 106 H 27 H 130/60 90 L Nasal Cannula 2 01/14/23 07:36 01/14/23 07:54 01/14/23 07:54 01/14/23 07:54 01/14/23 07:54 01/14/23 07:54 01/14/23 07:54 Gen: in no acute distress HEENT: sclera anicteric, moist mucus membranes Neck: supple Lungs: decreased air entry [place] Heart: regular rate and rhythm, no murmurs Abd: soft, bilateral lower quadrant tenderness Ext: no edema Skin: warm/well-perfused Neuro: alert and oriented to self and place, no focal findings Psych: appropriate affect A/P: d1 82yo with recent admission for aspiration pneumonia, COPD, CAD, CHF, HLD, pAF not on AC, dementia presenting with diarrhea, found to have acute colitis colitis - likely infectious vs ischemic - GI consulted - Cdiff, GI PCR, FOBT, and fecal WBCs pending - continue IV fluids - clear liquid diet - ceftriaxone + metronidazole - if infectious studies negative, flex sig pAF - continue metoprolol, not on AC chronic anemia - FeSO4 chronic HFrEF - hold torsemide due to hypovolemia, continue metoprolol + Imdur dementia - continue quetiapine, risperidone COPD - conitnue prednisone, montelukast, Anoro, prn albuterol VTE ppx - SCDs dispo - TBD In my clinical judgment, the patient requires continued inpatient hospitalization for the following reasons: IV fluids/IV ABX Time Spent With Patient Time: Total time managing care of this patient today ____ minutes.
[2023-01-14 12:59] LABS: OBS Int Ctl Valid YES; OBS1 NEGATIVE (NEGATIVE)
--- NOTE | 2023-01-14 13:11 | PC.NURSE ---
pt refused bloodwork multiple times this morning with phlebotomy.
--- NOTE | 2023-01-14 13:32 | PC.NURSE ---
tech able to draw blood. called for report x2.
[2023-01-14 13:43] LABS: Basophils Absolute Auto 0.1 X10*3/uL (0.0-0.2); Basophils Percent Auto 0.5 % (0-2); Eosinophils Absolute Auto 0.5 X10*3/uL (0.0-0.4); Hematocrit 34.1 % (37.0-47.0); Imm Gran Abs Auto 0.07 X10*3/uL (0.00-0.03); Imm Gran Pct Auto 0.6 % (0.0-0.4); Lymphocytes Absolute Auto 1.2 X10*3/uL (1.2-4.9); Lymphocytes Percent Auto 10.9 % (20-40); Mean Corpuscular HGB Conc 32.3 g/dl (31.0-35.0); Mean Corpuscular Hemoglobin 31.3 pg (27.0-33.0); Mean Corpuscular Volume 97.2 fL (80.0-98.0); Mean Platelet Volume 11.3 fL (9.4-12.3); Monocytes Absolute Auto 0.6 X10*3/uL (0.1-1.2); Monocytes Percent Auto 5.3 % (2-11); Neutrophils Percent Auto 78.7 % (45-73); Platelet Count 198 X10*3/uL (160-400); Red Blood Count 3.51 X10*6/uL (4.20-5.50); Red Cell Distribution Width 14.6 % (11.0-16.0); White Blood Count 11.4 X10*3/uL (4.8-10.8)
[2023-01-14 13:54] LABS: Leukocytes Stool Qualitative NEGATIVE (NEGATIVE)
[2023-01-14 14:25] LABS: CDiff Gene PCR POSITIVE (Negative)
[2023-01-14 15:14] LABS: CDIFF Internal ctrl Dots and bkg OK (V); CDiff Toxin Negative (Negative)
[2023-01-14] MEDS: levalbuterol HCL 1.25 MG/3 ML VIAL.NEB INHALE ×2 (15:40→19:02)
[2023-01-14] MEDS: vancomycin HCL Oral Solution 125 MG/5 ML SOLN.RECON PO (18:36)
[2023-01-14] MEDS: Montelukast Sodium 10 MG TABLET PO (20:42)
[2023-01-14] MEDS: Atorvastatin Calcium 40 MG TABLET PO (20:42)
[2023-01-14] MEDS: Melatonin 3 MG TABLET 6 MG PO (20:42)
[2023-01-14] MEDS: Magnesium Oxide 400 MG TABLET PO (20:42)
[2023-01-14] MEDS: QUEtiapine Fumarate 50 MG TABLET PO (20:42)
[2023-01-14] MEDS: Fluticasone Propionate Nasal 16 GM SPRAY 1 SPRAY NOSTRIL-B (22:24)
[2023-01-14] MEDS: Nystatin Powder 15 GM BOTTLE 1 APPL TOPICAL (22:24)
[2023-01-15] VITALS (7 sets, daily range): BP systolic 126–152; BP diastolic 70–86; PULSE 79–101; RESP 16–18; TEMP 36.1–36.7; O2SAT 92–98
[2023-01-15] MEDS: guaiFENesin 100 MG/5 ML LIQUID PO (00:12)
[2023-01-15] MEDS: vancomycin HCL Oral Solution 125 MG/5 ML SOLN.RECON PO ×4 (00:17→18:03)
[2023-01-15 05:39] LABS: Hematocrit 29.7 % (37.0-47.0); Hemoglobin 9.7 g/dl (12.0-16.0); Mean Corpuscular HGB Conc 32.7 g/dl (31.0-35.0); Mean Corpuscular Hemoglobin 31.2 pg (27.0-33.0); Mean Corpuscular Volume 95.5 fL (80.0-98.0); Mean Platelet Volume 11.7 fL (9.4-12.3); Platelet Count 177 X10*3/uL (160-400); Red Blood Count 3.11 X10*6/uL (4.20-5.50); Red Cell Distribution Width 14.6 % (11.0-16.0); White Blood Count 9.1 X10*3/uL (4.8-10.8)
[2023-01-15 05:56] LABS: Anion Gap 15 (12-20); Blood Urea Nitrogen 16 mg/dL (9-16); Calcium 8.4 mg/dL (8.4-10.2); Carbon Dioxide 24 mmol/L (22-29); Chloride 102 mmol/L (96-108); Creatinine Clr Calc Pharmacy 30.9; Estimated Glomerular Filt Rate 52; Glucose Random 87 mg/dL (60-115); Sodium 138 mmol/L (135-145)
[2023-01-15 07:08] LABS: Adenovirus F 40/41 Not Detected (Not Detect.); Astrovirus Not Detected (Not Detect.); Campylobacter Not Detected (Not Detect.); Cryptosporidium Not Detected (Not Detect.); Cyclospora cayetanensis Not Detected (Not Detect.); E. coli EAEC Not Detected (Not Detect.); E. coli EPEC Not Detected (Not Detect.); E. coli ETEC Not Detected (Not Detect.); E. coli STEC Not Detected (Not Detect.); Entamoeba histolytica Not Detected (Not Detect.); Giardia lamblia Not Detected (Not Detect.); Norovirus GI/GII Not Detected (Not Detect.); Plesiomonas shigelloides Not Detected (Not Detect.); Rotavirus A Not Detected (Not Detect.); Salmonella Not Detected (Not Detect.); Sapovirus Not Detected (Not Detect.); Shigella sp./EIEC Not Detected (Not Detect.); Vibrio Not Detected (Not Detect.); Vibrio Cholerae Not Detected (Not Detect.); Yersinia enterocolitica Not Detected (Not Detect.)
[2023-01-15 07:59] LABS: Retic HGB Equivalent 32.2 pg (30.0-35.0); Reticulocyte Percent 3.4 % (0.5-1.8); Reticulocytes Absolute 0.104 X10*6/uL (0.026-0.095)
[2023-01-15 08:12] LABS: Iron 53 mcg/dL (30-160); Lactate Dehydrogenase 147 U/L (122-220); Magnesium 1.7 mg/dL (1.6-2.6); Percent Iron Saturation 36 % (15-50); Total Iron Binding Capacity 146 mcg/dL (228-428); Unsaturated Iron Binding 93 ug/dL
[2023-01-15 08:25] LABS: Ferritin 161 ng/mL (10-250)
[2023-01-15] MEDS: levalbuterol HCL 1.25 MG/3 ML VIAL.NEB INHALE ×3 (08:51→19:36)
[2023-01-15] MEDS: Ferrous Sulfate 324 MG TABLET.DR PO (09:26)
--- NOTE | 2023-01-15 09:26 | MHC.CM.PN ---
Met with pt and dtr to review d/c planning needs: pt resides w/dtr and has [facility] and [facility] community Case Management servcies. She has all adaptive equipment including a hospital bed, walker and commode. Pt uses a [facility] arranged chair van for appointments as she can no longer get into her dtr's vehicle. Pt and dtr would like a return to home w/existing services in place. [facility] re-referred. HCP on file and verified. BLS transport will be needed. CM to follow for changes to d/c plan.
[2023-01-15] MEDS: oxyBUTYnin chloride ER 5 MG TAB.ER.24 PO (09:29)
[2023-01-15] MEDS: Thiamine HCL 100 MG TABLET PO ×2 (09:29→20:54)
[2023-01-15] MEDS: traMADoL HCL 50 MG TABLET 25 MG PO (09:30)
[2023-01-15] MEDS: Isosorbide Mononitrate 30 MG TAB.ER.24H PO (09:30)
[2023-01-15] MEDS: Omeprazole 20 MG CAPSULE.DR PO ×2 (09:30→20:53)
[2023-01-15] MEDS: Metoprolol Tartrate 25 MG TABLET PO ×2 (09:30→20:52)
[2023-01-15] MEDS: Potassium Chloride ER 20 MEQ TAB.ER.PRT 40 MEQ PO ×2 (09:30→13:26)
[2023-01-15] MEDS: risperiDONE 0.25 MG TABLET PO (09:31)
[2023-01-15] MEDS: Multivitamin TABLET 1 TAB PO (09:31)
[2023-01-15] MEDS: Nystatin Powder 15 GM BOTTLE 1 APPL TOPICAL ×2 (09:44→20:52)
[2023-01-15 09:53] LABS: Folate 18.1 ng/mL (> or = 4.0); Vitamin B12 1653 pg/mL (200-900)
--- NOTE | 2023-01-15 11:12 | HO.PM.IMPN ---
Subjective Subjective Date of Service: 01/15/23 Interval History: abd discomfort improved wants to eat Cdiff toxin positive Review of Systems Review of Systems: Yes all other systems are reviewed and are negative Physical Exam Vital Signs: Vital Signs: Last Vital Signs Temp 97.2 F 01/15/23 01:57 Pulse 86 01/15/23 08:52 Resp 18 01/15/23 08:52 BP 151/70 H 01/15/23 08:00 Pulse Ox 95 01/15/23 08:00 O2 Del Method Nasal Cannula 01/15/23 08:00 O2 Flow Rate 1 01/15/23 08:00 BMI result Body Mass Index 26.7 Gen: in no acute distress HEENT: sclera anicteric, moist mucus membranes Neck: supple Lungs: decreased air entry R [place] Heart: regular rate and rhythm, no murmurs Abd: soft, nontender Ext: no edema Skin: warm/well-perfused Neuro: alert and oriented to self and place, no focal findings Psych: appropriate affect Objective Data Active Medications Acetaminophen (Acetaminophen 325 Mg Tablet) 650 mg PO Q6H PRN PRN Reason: Pain, Mild (Pain Scale 1-3) Albuterol Sulfate (Albuterol Sulfate 90 Mcg 8 Gm Inhaler) 2 puff INHALE Q4H PRN PRN Reason: Shortness Of Breath Or Wheezing Atorvastatin Calcium (Atorvastatin Calcium 40 Mg Tablet) 40 mg PO BEDTIME [facility] Last Admin: 01/14/23 20:42 Dose: 40 mg Documented By: CATHY Ferrous Sulfate (Ferrous Sulfate 324 Mg Tablet.Dr) 324 mg PO DAILY [facility] Last Admin: 01/15/23 09:26 Dose: 324 mg Documented By: GROVER Fluticasone Propionate (Fluticasone Propionate Nasal 16 Gm [place]) 1 spray NOSTRIL-B BID [facility] Last Admin: 01/14/23 22:24 Dose: 1 spray Documented By: CATHY Guaifenesin (Guaifenesin 100 Mg/5 Ml Liquid) 5 ml PO Q4H PRN PRN Reason: Cough Last Admin: 01/15/23 00:12 Dose: 5 ml Documented By: ZOLTAN Isosorbide Mononitrate (Isosorbide Mononitrate 30 Mg Tab.Er.24h) 30 mg PO DAILY [facility]; Protocol Last Admin: 01/15/23 09:30 Dose: 30 mg Documented By: GROVER Levalbuterol HCl (Levalbuterol Hcl 1.25 Mg/3 Ml Vial.Neb) 1.25 mg INHALE TID [facility] Last Admin: 01/15/23 08:51 Dose: 1.25 mg Documented By: KAY Magnesium Oxide (Magnesium Oxide 400 Mg Tablet) 400 mg PO BEDTIME [facility] Last Admin: 01/14/23 20:42 Dose: 400 mg Documented By: CATHY Melatonin (Melatonin 3 Mg Tablet) 6 mg PO BEDTIME PRN PRN Reason: Insomnia Last Admin: 01/14/23 20:42 Dose: 6 mg Documented By: CATHY Metoprolol Tartrate (Metoprolol Tartrate 25 Mg Tablet) 25 mg PO BID [facility]; Protocol Last Admin: 01/15/23 09:30 Dose: 25 mg Documented By: GROVER Montelukast Sodium (Montelukast Sodium 10 Mg Tablet) 10 mg PO BEDTIME [facility] Last Admin: 01/14/23 20:42 Dose: 10 mg Documented By: CATHY Multivitamins/Vitamin C (Multivitamin Tablet) 1 tab PO DAILY [facility] Last Admin: 01/15/23 09:31 Dose: 1 tab Documented By: GROVER Non-Formulary Medication (Umeclidinium-Vilanterol [Anoro Ellipta]) 1 each INHALE DAILY [facility] Nystatin (Nystatin Powder 15 Gm Bottle) 1 appl TOPICAL BID [facility]; Protocol Last Admin: 01/15/23 09:44 Dose: 1 appl Documented By: GROVER Omeprazole (Omeprazole 20 Mg Capsule.) 20 mg PO BID [facility] Last Admin: 01/15/23 09:30 Dose: 20 mg Documented By: GROVER Ondansetron HCl (Ondansetron Hcl 4 Mg/2 Ml Vial) 4 mg IVPUSH Q8H PRN PRN Reason: Nausea and Vomiting Oxybutynin Chloride (Oxybutynin Chloride Er 5 Mg Tab.Er.24) 5 mg PO DAILY [facility] Last Admin: 01/15/23 09:29 Dose: 5 mg Documented By: GROVER Pharmacy Consult (Consult Rx Perform Med Rec) 1 each MISCELLANE ONCE PRN PRN Reason: Consult order Potassium Chloride (Potassium Chloride Er 20 Meq Tab.Er.Prt) 40 meq PO DAILY [facility] Last Admin: 01/15/23 09:30 Dose: 40 meq Documented By: GROVER Potassium Chloride (Potassium Chloride Er 20 Meq Tab.Er.Prt) 40 meq PO ONCE ONE Stop: 01/15/23 14:01 Prednisone (Prednisone 5 Mg Tablet) 5 mg PO DAILY [facility] Last Admin: 01/15/23 09:27 Dose: Not Given Documented By: GROVER Non-Admin Reason: Patient Refused Quetiapine Fumarate (Quetiapine Fumarate 50 Mg Tablet) 50 mg PO BEDTIME [facility] Last Admin: 01/14/23 20:42 Dose: 50 mg Documented By: CATHY Risperidone (Risperidone 0.25 Mg Tablet) 0.25 mg PO DAILY [facility] Last Admin: 01/15/23 09:31 Dose: 0.25 mg Documented By: GROVER Sodium Chloride (0.9 % Sodium Chloride Flush 3 Ml Syringe) 3 ml IVFLUSH QSHIFT [facility] Last Admin: 01/14/23 20:42 Dose: 3 ml Documented By: CATHY Thiamine HCl (Thiamine Hcl 100 Mg Tablet) 100 mg PO BID [facility] Last Admin: 01/15/23 09:29 Dose: 100 mg Documented By: GROVER Tramadol HCl (Tramadol Hcl 50 Mg Tablet) 25 mg PO DAILY [facility] Last Admin: 01/15/23 09:30 Dose: 25 mg Documented By: GROVER Vancomycin HCl (Vancomycin Hcl Oral Solution 125 Mg/5 Ml Soln.Recon) 125 mg PO Q6H [facility] Last Admin: 01/15/23 06:11 Dose: 125 mg Documented By: ZOLTAN Labs 01/15/23 05:20 01/15/23 05:20 Labs: Laboratory Results - last 24 hr 01/14/23 01/14/23 01/14/23 12:14 12:14 12:14 MCV MCH MCHC RDW Plt Count MPV Immature Gran % (Auto) Neut % (Auto) Lymph % (Auto) [place] % (Auto) Eos % (Auto) Baso % (Auto) Lymph # (Auto) [place] # (Auto) Eos # (Auto) Baso # (Auto) Abs Immat Gran (auto) Absolute Neuts (auto) Absolute Nucleated RBC Nucleated RBC % (auto) Absolute Retic Percent Retic Immature Retic Fraction Retic Hgb Equivalent Anion Gap Estim Creat Clear Calc Estimated GFR Random Glucose Calcium Magnesium Iron TIBC % Saturation Unsat Iron Binding Ferritin Lactate Dehydrogenase Vitamin B12 Folate Stool Occult Blood NEGATIVE Stool Leukocytes, Qual Stl C. cayetanensis PCR Not Detected Stool Rotavirus A PCR Not Detected Stl Adenov F PCR Not Detected Stool Astrovirus (PCR) Not Detected Stool Campylobacter PCR Not Detected Stool Cryptosporidium PCR Not Detected Stl Sh Tox Pr E STEC PCR Not Detected Stool E coli O157 PCR Not applicable Stl Enterotoxigenic E PCR Not Detected Stool EPEC (PCR) Not Detected Stool EAEC (PCR) Not Detected Stl E. histolytica PCR Not Detected Stool Giardia Lamblia PCR Not Detected Stl P. shigelloides PCR Not Detected Stool Salmonella PCR Not Detected Stool Sapovirus (PCR) Not Detected Stl Shigella/EIEC PCR Not Detected St Y.enterocolitica PCR Not Detected Stool Vibrio (PCR) Not Detected Stl Vibrio cholerae PCR Not Detected Stl Norovirus GI/GII PCR Not Detected C. difficile Tox B Gene POSITIVE A* C. difficile Toxin A&B Negative C. difficile Interpret SEE NOTE 01/14/23 01/14/23 01/15/23 12:14 13:24 05:20 MCV 97.2 95.5 MCH 31.3 31.2 MCHC 32.3 32.7 RDW 14.6 14.6 Plt Count 198 177 MPV 11.3 11.7 Immature Gran % (Auto) 0.6 H Neut % (Auto) 78.7 H Lymph % (Auto) 10.9 L [place] % (Auto) 5.3 Eos % (Auto) 4.0 Baso % (Auto) 0.5 Lymph # (Auto) 1.2 [place] # (Auto) 0.6 Eos # (Auto) 0.5 H Baso # (Auto) 0.1 Abs Immat Gran (auto) 0.07 H Absolute Neuts (auto) 9.0 H Absolute Nucleated RBC 0.000 0.000 Nucleated RBC % (auto) 0.0 0.0 Absolute Retic 0.104 H Percent Retic 3.4 H Immature Retic Fraction 12.0 Retic Hgb Equivalent 32.2 Anion Gap Estim Creat Clear Calc Estimated GFR Random Glucose Calcium Magnesium Iron TIBC % Saturation Unsat Iron Binding Ferritin Lactate Dehydrogenase Vitamin B12 Folate Stool Occult Blood Stool Leukocytes, Qual NEGATIVE Stl C. cayetanensis PCR Stool Rotavirus A PCR Stl Adenov F PCR Stool Astrovirus (PCR) Stool Campylobacter PCR Stool Cryptosporidium PCR Stl Sh Tox Pr E STEC PCR Stool E coli O157 PCR Stl Enterotoxigenic E PCR Stool EPEC (PCR) Stool EAEC (PCR) Stl E. histolytica PCR Stool Giardia Lamblia PCR Stl P. shigelloides PCR Stool Salmonella PCR Stool Sapovirus (PCR) Stl Shigella/EIEC PCR St Y.enterocolitica PCR Stool Vibrio (PCR) Stl Vibrio cholerae PCR Stl Norovirus GI/GII PCR C. difficile Tox B Gene C. difficile Toxin A&B C. difficile Interpret 01/15/23 01/15/23 05:20 08:48 MCV MCH MCHC RDW Plt Count MPV Immature Gran % (Auto) Neut % (Auto) Lymph % (Auto) [place] % (Auto) Eos % (Auto) Baso % (Auto) Lymph # (Auto) [place] # (Auto) Eos # (Auto) Baso # (Auto) Abs Immat Gran (auto) Absolute Neuts (auto) Absolute Nucleated RBC Nucleated RBC % (auto) Absolute Retic Percent Retic Immature Retic Fraction Retic Hgb Equivalent Anion Gap 15 Estim Creat Clear Calc 30.9 Estimated GFR 52 Random Glucose 87 Calcium 8.4 Magnesium 1.7 Iron 53 TIBC 146 L % Saturation 36 Unsat Iron Binding 93 Ferritin 161 Lactate Dehydrogenase 147 Vitamin B12 1653 H Folate 18.1 Stool Occult Blood Stool Leukocytes, Qual Stl C. cayetanensis PCR Stool Rotavirus A PCR Stl Adenov F 40 PCR Stool Astrovirus (PCR) Stool Campylobacter PCR Stool Cryptosporidium PCR Stl Sh Tox Pr E STEC PCR Stool E coli O157 PCR Stl Enterotoxigenic E PCR Stool EPEC (PCR) Stool EAEC (PCR) Stl E. histolytica PCR Stool Giardia Lamblia PCR Stl P. shigelloides PCR Stool Salmonella PCR Stool Sapovirus (PCR) Stl Shigella/EIEC PCR St Y.enterocolitica PCR Stool Vibrio (PCR) Stl Vibrio cholerae PCR Stl Norovirus GI/GII PCR C. difficile Tox B Gene C. difficile Toxin A&B C. difficile Interpret Microbiology Microbiology Results: Microbiology 01/13/23 21:07 Blood Culture - Preliminary Blood - Venous No growth after 24 hours. 01/13/23 20:50 Blood Culture - Preliminary Blood - Venous No growth after 24 hours. Assessment and Plan (1) Colitis: Status: Acute Plan d2 82yo with recent admission for aspiration pneumonia 12/23-12/27 discharged on amox-clav, COPD, CAD, CHF, HLD, pAF not on AC, dementia presenting with diarrhea, found to have acute colitis colitis - GI consulted, suspect due to Cdiff [had recent ABX for PNA], started PO vanco /- and d/c'ed ceftriaxone + metronidazole - advance diet and monitor tolerance hypoK - replete PO, recheck level in AM pAF - continue metoprolol, not on AC due to hx severe bleeding chronic anemia - FOBT negative, continue FeSO4 chronic HFrEF - continue metoprolol + Imdur, resume torsemide dementia - continue quetiapine, risperidone COPD - continue prednisone, montelukast, Anoro - neb treatments RLL consolidation - from recent PNA/RLL collapse. nebs, pulmonary toilet ?VTE ppx - enoxaparin dispo - PT eval In my clinical judgment, the patient requires continued inpatient hospitalization for the following reasons: Cdiff, placement Time Spent With Patient Time: Total time managing care of this patient today __45__ minutes. Quality Stroke Does the patient have a stroke diagnosis?: No VTE Prior VTE?: No VTE Risk Level:: Medical - moderate - high VTE Device Contraindication: N/A - Device Ordered VTE Drug Contraindication: Treatment Not Indicated
--- NOTE | 2023-01-15 12:58 | PC.RT ---
MD request [employer] instruct with patient. Pt awake and coop in bed up 45 degrees, daughter at bedside. Hayde explained, pt and family educated. Pt return demo very good effort noted. IS at bedside as well.
[2023-01-15] MEDS: Fluticasone Propionate Nasal 16 GM SPRAY 1 SPRAY NOSTRIL-B ×2 (13:26→20:52)
--- NOTE | 2023-01-15 15:53 | PM.GIPN ---
Subjective Subjective Date of Service: 01/15/23 Interval History: Pt seen and evaluated at bedside. Daughter Ximena also present. Reports improvement in abd pain but continues to have loose BMs. Labs reviewed. C Diff test results compatible with colonization as opposed to true infection since toxin is negative. Critical Care Time (minutes): 0 Physical Exam Vital Signs: Vital Signs: Last Vital Signs Temp 97.2 F 01/15/23 01:57 Pulse 79 01/15/23 15:46 Resp 18 01/15/23 15:46 BP 151/70 H 01/15/23 08:00 Pulse Ox 95 01/15/23 08:00 O2 Del Method Nasal Cannula 01/15/23 08:00 O2 Flow Rate 1 01/15/23 08:00 BMI result Body Mass Index 26.7 Gen appear: NAD, nontoxic appearance Abd: soft, nontender, nondistended Objective Data Labs 01/15/23 05:20 01/15/23 05:20 Labs: Laboratory Results - last 24 hr 01/14/23 01/15/23 01/15/23 12:14 05:20 05:20 WBC 9.1 RBC 3.11 L Hgb 9.7 L Hct 29.7 L MCV 95.5 MCH 31.2 MCHC 32.7 RDW 14.6 Plt Count 177 MPV 11.7 Absolute Nucleated RBC 0.000 Nucleated RBC % (auto) 0.0 Absolute Retic 0.104 H Percent Retic 3.4 H Immature Retic Fraction 12.0 Retic Hgb Equivalent 32.2 Sodium 138 Potassium 3.0 L Chloride 102 Carbon Dioxide 24 Anion Gap 15 BUN 16 Creatinine 1.02 Estim Creat Clear Calc 30.9 Estimated GFR 52 Random Glucose 87 Calcium 8.4 Magnesium 1.7 Iron 53 TIBC 146 L % Saturation 36 Unsat Iron Binding 93 Ferritin 161 Lactate Dehydrogenase 147 Vitamin B12 Folate Stl C. cayetanensis PCR Not Detected Stool Rotavirus A PCR Not Detected Stl Adenov F 40/41 PCR Not Detected Stool Astrovirus (PCR) Not Detected Stool Campylobacter PCR Not Detected Stool Cryptosporidium PCR Not Detected Stl Sh Tox Pr E STEC PCR Not Detected Stool E coli O157 PCR Not applicable Stl Enterotoxigenic E PCR Not Detected Stool EPEC (PCR) Not Detected Stool EAEC (PCR) Not Detected Stl E. histolytica PCR Not Detected Stool Giardia Lamblia PCR Not Detected Stl P. shigelloides PCR Not Detected Stool Salmonella PCR Not Detected Stool Sapovirus (PCR) Not Detected Stl Shigella/EIEC PCR Not Detected St Y.enterocolitica PCR Not Detected Stool Vibrio (PCR) Not Detected Stl Vibrio cholerae PCR Not Detected Stl Norovirus GI/GII PCR Not Detected 01/15/23 08:48 WBC RBC Hgb Hct MCV MCH MCHC RDW Plt Count MPV Absolute Nucleated RBC Nucleated RBC % (auto) Absolute Retic Percent Retic Immature Retic Fraction Retic Hgb Equivalent Sodium Potassium Chloride Carbon Dioxide Anion Gap BUN Creatinine Estim Creat Clear Calc Estimated GFR Random Glucose Calcium Magnesium Iron TIBC % Saturation Unsat Iron Binding Ferritin Lactate Dehydrogenase Vitamin B12 1653 H Folate 18.1 Stl C. cayetanensis PCR Stool Rotavirus A PCR Stl Adenov F 40/41 PCR Stool Astrovirus (PCR) Stool Campylobacter PCR Stool Cryptosporidium PCR Stl Sh Tox Pr E STEC PCR Stool E coli O157 PCR Stl Enterotoxigenic E PCR Stool EPEC (PCR) Stool EAEC (PCR) Stl E. histolytica PCR Stool Giardia Lamblia PCR Stl P. shigelloides PCR Stool Salmonella PCR Stool Sapovirus (PCR) Stl Shigella/EIEC PCR St Y.enterocolitica PCR Stool Vibrio (PCR) Stl Vibrio cholerae PCR Stl Norovirus GI/GII PCR Microbiology Microbiology Results: Microbiology 01/13/23 21:07 Blood - Venous Blood Culture - Preliminary No growth after 24 hours. 01/13/23 20:50 Blood - Venous Blood Culture - Preliminary No growth after 24 hours. Procedures Date of Service Date of Service: 01/15/23 Progress Note: A&P Assessment and plan (1) Acute diarrhea: Status: Acute (2) Colitis: Status: Acute Plan Disussed with the pt and daughter re indication for flexible sigmoidoscopy and are agreeable to proceed. Of note, pt does have chronic anemia but has been deemed to be AOCD as per evaluation by Heme here and [facility]. Plan: - NPO after MN for flex sig tmrw - Fleet enema in AM and then repeat 30-60 mins before procedure Time Spent With Patient Time: Total time managing care of this patient today ____ minutes. Quality Stroke Does the patient have a stroke diagnosis?: No VTE Prior VTE?: No VTE Risk Level:: Medical - moderate - high VTE Device Contraindication: N/A - Device Ordered VTE Drug Contraindication: Treatment Not Indicated
[2023-01-15] MEDS: 0.9 % Sodium Chloride Flush 3 ML SYRINGE IVFLUSH (17:47)
[2023-01-15 20:21] LABS: Appearance Urine Turbid; Color Urine Dark Yellow; Glucose Urine UA Negative (Negative); Leukocyte Esterase Urine Large (3+) (Negative); Nitrite Urine Positive (Negative); PH 5.5 (5.0-9.0); Specific Gravity - Urine 1.015 (1.005-1.025); UMIC TRIGGER UACC YES; Urine Blood Small (1+) (Negative); Urine Ketones Negative (Negative); Urine Protein 30 (1+) mg/dL (Neg-Trace)
[2023-01-15 20:34] LABS: Bacteria Urine 4+ (None Seen); RBC Urine >20 /HPF (0-2); Squamous Epithelial Cell Urine 0-2 /HPF (0-2); UACC Culture Trigger YES; WBC Urine >50 /HPF (0-5)
[2023-01-15] MEDS: Melatonin 3 MG TABLET 6 MG PO (20:52)
[2023-01-15] MEDS: Acetaminophen 325 MG TABLET 650 MG PO (20:53)
[2023-01-15] MEDS: QUEtiapine Fumarate 50 MG TABLET PO (20:53)
[2023-01-15] MEDS: Montelukast Sodium 10 MG TABLET PO (20:54)
[2023-01-15] MEDS: Magnesium Oxide 400 MG TABLET PO (20:54)
[2023-01-15] MEDS: Atorvastatin Calcium 40 MG TABLET PO (20:54)
[2023-01-16] VITALS (12 sets, daily range): BP systolic 118–161; BP diastolic 35–97; PULSE 60–93; RESP 16–24; TEMP 36–37; O2SAT 96–98; BMI 26.7
[2023-01-16] MEDS: 0.9 % Sodium Chloride Flush 3 ML SYRINGE IVFLUSH ×3 (00:16→21:21)
[2023-01-16] MEDS: vancomycin HCL Oral Solution 125 MG/5 ML SOLN.RECON PO ×5 (00:16→23:42)
--- NOTE | 2023-01-16 04:57 | PC.NURSE ---
PATIENT FOUND WITH OXYGEN VIA N//C OUT OF NOSE AND OFF FACE NUMEROUS TIMES. PT NOT HAPPY HAVING IT REPLACED AND STATING I DON'T NEED THAT . O2 SAT CHECKED EVERY ONE HOUR AND PT REMAINED 96-97% ROOM AIR, COLOR WNL, NO NOTED DISTRESS, DENIED SOB, AND HOB UP. WILL CONTINUE TO MONITOR CLOSELY. VMT ALERTED FLOOR TO OXYGEN REMOVAL AND LET THEM KNOW WE WILL MONITOR HER.
[2023-01-16 05:56] LABS: Hematocrit 33.6 % (37.0-47.0); Hemoglobin 10.8 g/dl (12.0-16.0); Mean Corpuscular HGB Conc 32.1 g/dl (31.0-35.0); Mean Corpuscular Volume 96.6 fL (80.0-98.0); Mean Platelet Volume 11.4 fL (9.4-12.3); Platelet Count 188 X10*3/uL (160-400); Red Blood Count 3.48 X10*6/uL (4.20-5.50); Red Cell Distribution Width 14.5 % (11.0-16.0); White Blood Count 8.1 X10*3/uL (4.8-10.8)
[2023-01-16 06:11] LABS: Anion Gap 16 (12-20); Blood Urea Nitrogen 14 mg/dL (9-16); C Reactive Protein 9.91 mg/dL (< or = 0.50); Calcium 8.8 mg/dL (8.4-10.2); Carbon Dioxide 25 mmol/L (22-29); Chloride 103 mmol/L (96-108); Creatinine Clr Calc Pharmacy 27.4; Estimated Glomerular Filt Rate 45; Glucose Random 86 mg/dL (60-115); Magnesium 1.9 mg/dL (1.6-2.6); Potassium 3.6 mmol/L (3.3-5.1); Sodium 140 mmol/L (135-145)
[2023-01-16] MEDS: Fluticasone Propionate Nasal 16 GM SPRAY 1 SPRAY NOSTRIL-B ×2 (09:07→21:20)
[2023-01-16] MEDS: Metoprolol Tartrate 25 MG TABLET PO ×2 (09:07→21:04)
[2023-01-16] MEDS: Nystatin Powder 15 GM BOTTLE 1 APPL TOPICAL ×2 (09:08→21:20)
--- NOTE | 2023-01-16 12:45 | P.PNIM_ITS ---
Subjective Subjective Date of Service: 01/16/23 Interval History: resting comfortably, denies abdominal pain no nausea no vomiting, as per patient abdominal pain comes and goes, diarrhea resolved is NPO for flexible sigmoidoscopy. Review of Systems all other system reviewed and negative. Physical Exam Vital Signs: Vital Signs: Last Vital Signs Temp 97.3 F 01/16/23 07:53 Pulse 67 01/16/23 07:53 Resp 18 01/16/23 07:53 BP 161/70 H 01/16/23 07:53 Pulse Ox 97 01/16/23 07:53 O2 Del Method Room Air 01/16/23 07:53 O2 Flow Rate 1 01/15/23 20:00 BMI result Body Mass Index 26.7 Const: Other: Gen: in no acute distress HEENT: sclera an icteric, moist mucus membranes Neck: supple Lungs: decreased air entry R base Heart: regular rate and rhythm, no murmurs Abd: soft, nonvtender, bowel sounds audible Ext: no edema Skin: warm/well-perfused Neuro: alert and oriented to self and place, no focal findings Psych: appropriate affect Objective Data Active Medications Acetaminophen (Acetaminophen 325 Mg Tablet) 650 mg PO Q6H PRN PRN Reason: Pain, Mild (Pain Scale 1-3) Last Admin: 01/15/23 20:53 Dose: 650 mg Documented By: CAITLIN Albuterol/Ipratropium (Albuterol/Iprat 2.5/0.5mg 3 Ml Ampul.Neb) 3 ml INHALE RQ4H PRN PRN Reason: shortness of breath/wheezing Atorvastatin Calcium (Atorvastatin Calcium 40 Mg Tablet) 40 mg PO BEDTIME [facility] Last Admin: 01/15/23 20:54 Dose: 40 mg Documented By: CAITLIN Ferrous Sulfate (Ferrous Sulfate 324 Mg Tablet.Dr) 324 mg PO DAILY [facility] Last Admin: 01/16/23 09:02 Dose: Not Given Documented By: SAIDA Non-Admin Reason: NPO held per Fluticasone Propionate (Fluticasone Propionate Nasal 16 Gm [place]) 1 spray NOSTRIL-B BID [facility] Last Admin: 01/16/23 09:07 Dose: 1 spray Documented By: SAIDA Guaifenesin (Guaifenesin 100 Mg/5 Ml Liquid) 5 ml PO Q4H PRN PRN Reason: Cough Last Admin: 01/15/23 00:12 Dose: 5 ml Documented By: ZOLTAN Isosorbide Mononitrate (Isosorbide Mononitrate 30 Mg Tab.Er.24h) 30 mg PO DAILY [facility]; Protocol Last Admin: 01/16/23 09:02 Dose: Not Given Documented By: SAIDA Non-Admin Reason: NPO held per Levalbuterol HCl (Levalbuterol Hcl 1.25 Mg/3 Ml Vial.Alysha) 1.25 mg INHALE TID [facility] Last Admin: 01/16/23 07:52 Dose: Not Given Documented By: HELLEN Non-Admin Reason: Patient Refused Magnesium Oxide (Magnesium Oxide 400 Mg Tablet) 400 mg PO BEDTIME [facility] Last Admin: 01/15/23 20:54 Dose: 400 mg Documented By: CAITLIN Melatonin (Melatonin 3 Mg Tablet) 6 mg PO BEDTIME PRN PRN Reason: Insomnia Last Admin: 01/15/23 20:52 Dose: 6 mg Documented By: CAITLIN Metoprolol Tartrate (Metoprolol Tartrate 25 Mg Tablet) 25 mg PO BID [facility]; Sunny col Last Admin: 01/16/23 09:07 Dose: 25 mg Documented By: SAIDA Montelukast Sodium (Montelukast Sodium 10 Mg Tablet) 10 mg PO BEDTIME [facility] Last Admin: 01/15/23 20:54 Dose: 10 mg Documented By: CAITLIN Multivitamins/Vitamin C (Multivitamin Tablet) 1 tab PO DAILY [facility] Last Admin: 01/16/23 09:03 Dose: Not Given Documented By: SAIDA Non-Admin Reason: NPO held per Non-Formulary Medication (Umeclidinium-Vilanterol [Anoro Ellipta]) 1 each INHAL E DAILY [facility] Nystatin (Nystatin Powder 15 Gm Bottle) 1 appl TOPICAL BID [facility]; Protocol Last Admin: 01/16/23 09:08 Dose: 1 appl Documented By: SAIDA Omeprazole (Omeprazole 20 Mg Capsule.) 20 mg PO BID [facility] Last Admin: 01/16/23 09:02 Dose: Not Given Documented By: SAIDA Non-Admin Reason: NPO held per Ondansetron HCl (Ondansetron Hcl 4 Mg/2 Ml Vial) 4 mg IVPUSH Q8H PRN PRN Reason: Nausea and Vomiting Oxybutynin Chloride (Oxybutynin Chloride Er 5 Mg Tab.Er.24) 5 mg PO DAILY [facility] Last Admin: 01/16/23 09:02 Dose: Not Given Documented By: SAIDA Non-Admin Reason: NPO held per Pharmacy Consult (Consult Rx Perform Med Rec) 1 each MISCELLANE ONCE PRN PRN Reason: Consult order Potassium Chloride (Potassium Chloride Er 20 Meq Tab.Er.Prt) 40 meq PO DAILY [facility] Last Admin: 01/16/23 09:03 Dose: Not Given Documented By: SAIDA Non-Admin Reason: NPO held per Prednisone (Prednisone 5 Mg Tablet) 5 mg PO DAILY [facility] Last Admin: 01/16/23 09:03 Dose: Not Given Documented By: SAIDA Non-Admin Reason: NPO held per Quetiapine Fumarate (Quetiapine Fumarate 50 Mg Tablet) 50 mg PO BEDTIME [facility] Last Admin: 01/15/23 20:53 Dose: 50 mg Documented By: CAITLIN Risperidone (Risperidone 0.25 Mg Tablet) 0.25 mg PO DAILY [facility] Last Admin: 01/16/23 09:03 Dose: Not Given Documented By: SAIDA Non-Admin Reason: NPO held per Sodium Chloride (0.9 % Sodium Chloride Flush 3 Ml Syringe) 3 ml IVFLUSH QSHIFT [facility] Last Admin: 01/16/23 09:08 Dose: 3 ml Documented By: SAIDA Thiamine HCl (Thiamine Hcl 100 Mg Tablet) 100 mg PO BID [facility] Last Admin: 01/16/23 09:03 Dose: Not Given Documented By: SAIDA Non-Admin Reason: NPO held per Torsemide (Torsemide 20 Mg Tablet) 20 mg PO DAILY [facility]; Protocol Last Admin: 01/16/23 09:04 Dose: Not Given Documented By: SAIDA Non-Admin Reason: NPO held per Tramadol HCl (Tramadol Hcl 50 Mg Tablet) 25 mg PO DAILY [facility] Last Admin: 01/16/23 09:04 Dose: Not Given Documented By: SAIDA Non-Admin Reason: NPO held per Vancomycin HCl (Vancomycin Hcl Oral Solution 125 Mg/5 Ml Soln.Recon) 125 mg PO Q6H [facility] Last Admin: 01/16/23 11:29 Dose: 125 mg Documented By: SAIDA Labs 01/16/23 05:31 01/16/23 05:31 Labs: Laboratory Results - last 24 hr 01/15/23 01/16/23 01/16/23 20:00 05:31 05:31 MCV 96.6 MCH 31.0 MCHC 32.1 RDW 14.5 Plt Count 188 MPV 11.4 Absolute Nucleated RBC 0.000 Nucleated RBC % (auto) 0.0 Anion Gap 16 Estim Creat Clear Calc 27.4 Estimated GFR 45 Random Glucose 86 Calcium 8.8 Magnesium 1.9 C-Reactive Protein 9.91 H Urine Color Dark Yellow Urine Appearance Turbid Urine pH 5.5 Ur Specific [place] 1.015 Urine Protein 30 (1+) H Urine Glucose (UA) Negative Urine Ketones Negative Urine Blood Small (1+) H Urine Nitrite Positive H Ur Leukocyte Esterase Large (3+) H Urine RBC >20 H Urine WBC >50 H Ur Squamous Epith Cells 0-2 Urine Bacteria 4+ Hyaline Casts 3-5 Microbiology Microbiology Results: Microbiology 01/15/23 Unknown Urine Culture - Preliminary Urine clean catch - Urine mcdonald top Culture too young to evaluate. 01/13/23 21:07 Blood Culture - Preliminary Blood - Venous No growth after 48 hours. 01/13/23 20:50 Blood Culture - Preliminary Blood - Venous No growth after 48 hours. Assessment and Plan (1) Colitis: Status: Acute Plan 82yo with recent admission for aspiration pneumonia 12/23-12/27 discharged on amox-clav, COPD, CAD, CHF, HLD, pAF not on AC, dementia presenting with diarrhea, found to have acute colitis colitis - GI consulted, suspect due to Cdiff [had recent ABX for PNA], started PO vanco 01/14- is NPO for flexible sigmoidoscopy this afternoon, noted to have rectal wall thickening and acute colitis on CT abdomen and pelvis. hypoK resolved pAF - continue metoprolol, not on AC due to hx severe bleeding chronic anemia - FOBT negative, continue FeSO4 chronic HFrEF - continue metoprolol + Imdur, and torsemide dementia - continue quetiapine, risperidone COPD - continue prednisone, montelukast, Anoro - neb treatments prn RLL consolidation - from recent PNA/RLL collapse. noted to have moderate right pleural effusion, continue nebs, pulmonary toilet, 97% on room air ?VTE ppx - enoxaparin dispo - PT eval In my clinical judgment, the patient requires continued inpatient hospitalization for the following reasons: Cdiff, placement Time Spent With Patient Time: Total time managing care of this patient today ____ minutes. Quality Stroke Does the patient have a stroke diagnosis?: No VTE Prior VTE?: No VTE Risk Level:: Medical - moderate - high VTE Device Contraindication: N/A - Device Ordered VTE Drug Contraindication: Treatment Not Indicated
--- NOTE | 2023-01-16 12:48 | HO.ANESPROP2 ---
HPI - Anesthesia Eval Consult details Narrative: 82 yo female patient for flexible sigmoidoscopy PMFSH Active Problems Active Problems: All Active Problems (Updated 01/16/23 @ 12:49 by Jody Silva MD) Acute diarrhea (Acute) Pneumonia (Acute) Colitis (Acute) Acute and chronic respiratory failure with hypoxia (Acute) Acute exacerbation of congestive heart failure (Acute) Right lower lobe pneumonia (Acute) Acute metabolic encephalopathy (Acute) Atelectasis of right lung (Acute) Encephalopathy chronic (Acute) Sepsis (Acute) CANDIDO (acute kidney injury) (Acute) UTI (urinary tract infection) (Acute) Pneumonia (Acute) Abdominal pain (Acute) Encephalopathy acute (Acute) Hypomagnesemia (Acute) Atrial flutter with rapid ventricular response (Acute) NSTEMI (non-ST elevated myocardial infarction) (Acute) H/O umbilical hernia repair (Acute 09/18/22) Bronchiectasis (Acute) Dyspnea (Acute) COPD (chronic obstructive pulmonary disease) (Acute) Pulmonary nodules (Acute) Pseudomonal pneumonia (Acute) Past Medical History Medical History A-fib Acute encephalopathy Acute hypokalemia Acute respiratory failure with hypoxia Anemia Anemia Aspiration pneumonia Atelectasis of right lung Atrial fibrillation with RVR Atrial flutter Bronchiectasis CAD (coronary artery disease) Chronic dyspnea Congestive heart failure COPD (chronic obstructive pulmonary disease) COPD (chronic obstructive pulmonary disease) Dyspnea Encephalopathy chronic GI bleed Heart failure History of infection with vancomycin resistant Enterococcus (VRE) Paroxysmal A-fib Pseudomonal pneumonia Pseudomonas respiratory infection Pulmonary nodules Pyuria Family History Family History Other No family history of cancer Family history of problems with anesthesia: No Surgical History Surgical History H/O umbilical hernia repair (09/18/22) History of cholecystectomy History of hip replacement History of knee replacement History of quadruple bypass History of Problems with Anesthesia: No Social History Social History Household Members: Family Housing: House Are you a primary pet caretaker to a significant other at home: No Do you presently have visiting nurse or other home services: No Alcohol intake: never Patient Tobacco Use Status: Former Tobacco user Quit Date: 2012 Tobacco use type: Cigarette Advance Directives Date on File: 08/24/22 service: No Current occupational status: retired Meds Allergies Allergy/AdvReac Type Severity Reaction Status Date / Time carvedilol Allergy Shortness Verified 10/04/22 14:13 of Breath sertraline [From Zoloft] Allergy Shortness Verified 10/04/22 14:13 of Breath spironolactone Allergy Shortness Verified 10/04/22 14:13 of Breath adhesive tape AdvReac Severe skin tears Verified 12/20/22 13:43 mirtazapine AdvReac Severe psychotic Verified 01/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 16:11 episode Active Medications: Current Medications Acetaminophen (Acetaminophen 325 Mg Tablet) 650 mg PO Q6H PRN PRN Reason: Pain, Mild (Pain Scale 1-3) Last Admin: 01/15/23 20:53 Dose: 650 mg Albuterol/Ipratropium (Albuterol/Iprat 2.5/0.5mg 3 Ml Ampul.Neb) 3 ml INHALE RQ4H PRN PRN Reason: shortness of breath/wheezing Atorvastatin Calcium (Atorvastatin Calcium 40 Mg Tablet) 40 mg PO BEDTIME [facility] Last Admin: 01/15/23 20:54 Dose: 40 mg Ferrous Sulfate (Ferrous Sulfate 324 Mg Tablet.Dr) 324 mg PO DAILY [facility] Last Admin: 01/16/23 09:02 Dose: Not Given Fluticasone Propionate (Fluticasone Propionate Nasal 16 Gm [place]) 1 spray NOSTRIL-B BID [facility] Last Admin: 01/16/23 09:07 Dose: 1 spray Guaifenesin (Guaifenesin 100 Mg/5 Ml Liquid) 5 ml PO Q4H PRN PRN Reason: Cough Last Admin: 01/15/23 00:12 Dose: 5 ml Isosorbide Mononitrate (Isosorbide Mononitrate 30 Mg Tab.Er.24h) 30 mg PO DAILY [facility]; Protocol Last Admin: 01/16/23 09:02 Dose: Not Given Levalbuterol HCl (Levalbuterol Hcl 1.25 Mg/3 Ml Vial.Neb) 1.25 mg INHALE TID [facility] Last Admin: 01/16/23 07:52 Dose: Not Given Magnesium Oxide (Magnesium Oxide 400 Mg Tablet) 400 mg PO BEDTIME [facility] Last Admin: 01/15/23 20:54 Dose: 400 mg Melatonin (Melatonin 3 Mg Tablet) 6 mg PO BEDTIME PRN PRN Reason: Insomnia Last Admin: 01/15/23 20:52 Dose: 6 mg Metoprolol Tartrate (Metoprolol Tartrate 25 Mg Tablet) 25 mg PO BID [facility]; Protocol Last Admin: 01/16/23 09:07 Dose: 25 mg Montelukast Sodium (Montelukast Sodium 10 Mg Tablet) 10 mg PO BEDTIME [facility] Last Admin: 01/15/23 20:54 Dose: 10 mg Multivitamins/Vitamin C (Multivitamin Tablet) 1 tab PO DAILY [facility] Last Admin: 01/16/23 09:03 Dose: Not Given Non-Formulary Medication (Umeclidinium-Vilanterol [Anoro Ellipta]) 1 each INHALE DAILY [facility] Nystatin (Nystatin Powder 15 Gm Bottle) 1 appl TOPICAL BID [facility]; Protocol Last Admin: 01/16/23 09:08 Dose: 1 appl Omeprazole (Omeprazole 20 Mg Capsule.Dr) 20 mg PO BID [facility] Last Admin: 01/16/23 09:02 Dose: Not Given Ondansetron HCl (Ondansetron Hcl 4 Mg/2 Ml Vial) 4 mg IVPUSH Q8H PRN PRN Reason: Nausea and Vomiting Oxybutynin Chloride (Oxybutynin Chloride Er 5 Mg Tab.Er.24) 5 mg PO DAILY [facility] Last Admin: 01/16/23 09:02 Dose: Not Given Pharmacy Consult (Consult Rx Perform Med Rec) 1 each MISCELLANE ONCE PRN PRN Reason: Consult order Potassium Chloride (Potassium Chloride Er 20 Meq Tab.Er.Prt) 40 meq PO DAILY [facility] Last Admin: 01/16/23 09:03 Dose: Not Given Prednisone (Prednisone 5 Mg Tablet) 5 mg PO DAILY [facility] Last Admin: 01/16/23 09:03 Dose: Not Given Quetiapine Fumarate (Quetiapine Fumarate 50 Mg Tablet) 50 mg PO BEDTIME [facility] Last Admin: 01/15/23 20:53 Dose: 50 mg Risperidone (Risperidone 0.25 Mg Tablet) 0.25 mg PO DAILY [facility] Last Admin: 01/16/23 09:03 Dose: Not Given Sodium Chloride (0.9 % Sodium Chloride Flush 3 Ml Syringe) 3 ml IVFLUSH QSHIFT [facility] Last Admin: 01/16/23 09:08 Dose: 3 ml Thiamine HCl (Thiamine Hcl 100 Mg Tablet) 100 mg PO BID [facility] Last Admin: 01/16/23 09:03 Dose: Not Given Torsemide (Torsemide 20 Mg Tablet) 20 mg PO DAILY [facility]; Protocol Last Admin: 01/16/23 09:04 Dose: Not Given Tramadol HCl (Tramadol Hcl 50 Mg Tablet) 25 mg PO DAILY [facility] Last Admin: 01/16/23 09:04 Dose: Not Given Vancomycin HCl (Vancomycin Hcl Oral Solution 125 Mg/5 Ml Soln.Recon) 125 mg PO Q6H [facility] Last Admin: 01/16/23 11:29 Dose: 125 mg Home Medications Medication Instructions Recorded Confirmed Last Taken Type fluticasone propionate 50 1 spray intranasal BID 03/22/22 01/13/23 01/13/23 History mcg/actuation nasal spray,suspension montelukast 10 mg tablet 10 mg PO BEDTIME 03/22/22 01/13/23 01/12/23 History nebulizers 03/22/22 07/04/22 Unknown History oxybutynin chloride 5 mg 5 mg PO DAILY 03/22/22 01/13/23 01/13/23 History tablet,extended release 24 hr tramadol 50 mg tablet 25 mg PO DAILY 03/22/22 01/13/23 01/13/23 History umeclidinium 62.5 mcg-vilanterol 1 ea inhalation DAILY 05/24/22 01/13/23 01/13/23 History 25 mcg/actuation powdr for inhalation (Anoro Ellipta) albuterol sulfate 90 mcg/actuation 2 puff inhalation Q4-6H PRN 11/02/22 01/13/23 01/13/23 History aerosol inhaler (Ventolin HFA) Shortness Of Breath Or Wheezing aspirin 81 mg tablet,delayed 81 mg PO DAILY 11/02/22 01/13/23 01/13/23 History release isosorbide mononitrate 30 mg 30 mg PO DAILY 11/02/22 01/13/23 01/13/23 History tablet,extended release 24 hr levalbuterol HCl 1.25 mg/3 mL 1.25 mg inhalation TID 11/02/22 01/13/23 01/13/23 History solution for nebulization pantoprazole 40 mg tablet,delayed 40 mg PO BID 11/02/22 01/13/2301/13/23 History release thiamine HCl (vitamin B1) 100 mg 100 mg PO BID 11/02/22 01/13/23 01/13/23 History tablet risperidone 0.25 mg tablet 0.25 mg PO DAILY 12/16/22 01/13/23 01/13/23 History acetaminophen 325 mg tablet 650 mg PO Q6H PRN Pain 01/13/23 01/13/23 Unknown History magnesium oxide 400 mg (241.3 mg 400 mg PO BEDTIME 01/13/23 01/13/23 01/12/23 History magnesium) tablet multivitamin 1 tab PO DAILY 01/13/23 01/13/23 01/13/23 History potassium 99 mg tablet 99 mg PO DAILY 01/13/23 01/13/23 01/13/23 History potassium chloride 20 mEq 40 meq PO DAILY 01/13/23 01/13/23 01/13/23 History tablet,extended release quetiapine 50 mg tablet 50 mg PO BEDTIME 01/13/23 01/13/23 01/12/23 History torsemide 20 mg tablet 20 mg PO DAILY 01/13/23 01/13/23 01/13/23 History Exam Exam Date and Time: January 16, 2023 124 Height,Weight and Vital Signs: Height 4 ft 10 in Weight 58 kg Vital Signs Temp Pulse Resp BP Pulse Ox O2 Del Method O2 Flow Rate 01/16/23 13:56 85 18 01/16/23 13:37 97.0 F 77 18 136/52 L 97 Room Air 01/16/23 07:53 97.3 F 67 18 161/70 H 97 Room Air 01/16/23 04:00 96.8 F 65 18 123/55 L 97 Room Air 01/15/23 20:00 98.0 F 90 17 126/86 96 Nasal Cannula 1 01/15/23 19:36 88 16 01/15/23 16:00 97.0 F 96 16 152/74 H 98 Nasal Cannula 1.5 01/15/23 15:46 79 18 Last Vital Signs Temp 97.3 F 01/16/23 07:53 Pulse 67 01/16/23 07:53 Resp 18 01/16/23 07:53 BP 161/70 H 01/16/23 07:53 Pulse Ox 97 01/16/23 07:53 O2 Del Method Room Air 01/16/23 07:53 O2 Flow Rate 1 01/15/23 20:00 Pertinent Lab Results Pertinent Lab Results: Laboratory Tests 01/13/23 01/13/23 01/13/23 17:02 17:02 17:02 WBC 13.1 H RBC 3.26 L Hgb 10.3 L Hct 31.8 L MCV 97.5 MCH 31.6 MCHC 32.4 RDW 14.9 Plt Count 190 MPV 11.9 Immature Gran % (Auto) 0.4 Neut % (Auto) 86.5 H Lymph % (Auto) 8.0 L Doug[place] % (Auto) 3.4 Eos % (Auto) 1.3 Baso % (Auto) 0.4 Lymph # (Auto) 1.1 L [place] # (Auto) 0.4 Eos # (Auto) 0.2 Baso # (Auto) 0.1 Abs Immat Gran (auto) 0.05 H Absolute Neuts (auto) 11.3 H Absolute Nucleated RBC 0.000 Nucleated RBC % (auto) 0.0 Absolute Retic Percent Retic Immature Retic Fraction Retic Hgb Equivalent Sodium 139 Potassium 3.4 Chloride 101 Carbon Dioxide 25 Anion Gap 16 BUN 22 H Creatinine 0.97 Estim Creat Clear Calc 32.5 Estimated GFR 55 POC Glucose Random Glucose 213 H Lactic Acid Calcium 8.5 Magnesium 1.8 Iron TIBC % Saturation Unsat Iron Binding Ferritin Total Bilirubin 1.2 H AST 26 ALT 24 Alkaline Phosphatase 103 Lactate Dehydrogenase Troponin I High Sens 27.0 H D C-Reactive Protein B-Natriuretic Peptide Total Protein 6.3 L Albumin 3.1 L Lipase 5 L Vitamin B12 Folate Procalcitonin Urine Color Urine Appearance Urine pH Ur Specific [place] Urine Protein Urine Glucose (UA) Urine Ketones Urine Blood Urine Nitrite Ur Leukocyte Esterase Urine RBC Urine WBC Ur Squamous Epith Cells Urine Bacteria Hyaline Casts Stool Occult Blood Stool Leukocytes, Qual Stl C. cayetanensis PCR Stool Rotavirus A PCR Stl Adenov F 40/41 PCR Stool Astrovirus (PCR) Stool Campylobacter PCR Stool Cryptosporidium PCR Stl Sh Tox Pr E STEC PCR Stool E coli O157 PCR Stl Enterotoxigenic E PCR Stool EPEC (PCR) Stool EAEC (PCR) Stl E. histolytica PCR Stool Giardia Lamblia PCR Stl P. shigelloides PCR Stool Salmonella PCR Stool Sapovirus (PCR) Stl Shigella/EIEC PCR St Y.enterocolitica PCR Stool Vibrio (PCR) Stl Vibrio cholerae PCR Stl Norovirus GI/GII PCR C. difficile Tox B Gene C. difficile Toxin A&B C. difficile Interpret 01/13/23 01/13/23 01/13/23 17:02 20:50 20:50 WBC RBC Hgb Hct MCV MCH MCHC RDW Plt Count MPV Immature Gran % (Auto) Neut % (Auto) Lymph % (Auto) [place] % (Auto) Eos % (Auto) Baso % (Auto) Lymph # (Auto) Doug[place] # (Auto) Eos # (Auto) Baso # (Auto) Abs Immat Gran (auto) Absolute Neuts (auto) Absolute Nucleated RBC Nucleated RBC % (auto) Absolute Retic Percent Retic Immature Retic Fraction Retic Hgb Equivalent Sodium Potassium Chloride Carbon Dioxide Anion Gap BUN Creatinine Estim Creat Clear Calc Estimated GFR POC Glucose Random Glucose Lactic Acid 1.6 Calcium Magnesium Iron TIBC % Saturation Unsat Iron Binding Ferritin Total Bilirubin AST ALT Alkaline Phosphatase Lactate Dehydrogenase Troponin I High Sens 27.7 H C-Reactive Protein B-Natriuretic Peptide 188 H Total Protein Albumin Lipase Vitamin B12 Folate Procalcitonin Urine Color Urine Appearance Urine pH Ur Specific [place] Urine Protein Urine Glucose (UA) Urine Ketones Urine Blood Urine Nitrite Ur Leukocyte Esterase Urine RBC Urine WBC Ur Squamous Epith Cells Urine Bacteria Hyaline Casts Stool Occult Blood Stool Leukocytes, Qual Stl C. cayetanensis PCR Stool Rotavirus A PCR Stl Adenov F 40/41 PCR Stool Astrovirus (PCR) Stool Campylobacter PCR Stool Cryptosporidium PCR Stl Sh Tox Pr E STEC PCR Stool E coli O157 PCR Stl Enterotoxigenic E PCR Stool EPEC (PCR) Stool EAEC (PCR) Stl E. histolytica PCR Stool Giardia Lamblia PCR Stl P. shigelloides PCR Stool Salmonella PCR Stool Sapovirus (PCR) Stl Shigella/EIEC PCR St Y.enterocolitica PCR Stool Vibrio (PCR) Stl Vibrio cholerae PCR Stl Norovirus GI/GII PCR C. difficile Tox B Gene C. difficile Toxin A&B C. difficile Interpret 01/14/23 01/14/23 01/14/23 07:37 09:04 09:04 WBC RBC Hgb Hct MCV MCH MCHC RDW Plt Count MPV Immature Gran % (Auto) Neut % (Auto) Lymph % (Auto) [place] % (Auto) Eos % (Auto) Baso % (Auto) Lymph # (Auto) Doug[place] # (Auto) Eos # (Auto) Baso # (Auto) Abs Immat Gran (auto) Absolute Neuts (auto) Absolute Nucleated RBC Nucleated RBC % (auto) Absolute Retic Percent Retic Immature Retic Fraction Retic Hgb Equivalent Sodium 140 Potassium 3.4 Chloride 103 Carbon Dioxide 20 L Anion Gap 20 BUN 18 H Creatinine 1.02 Estim Creat Clear Calc 30.9 Estimated GFR 52 POC Glucose 100 Random Glucose 113 Lactic Acid Calcium 8.4 Magnesium Iron TIBC % Saturation Unsat Iron Binding Ferritin Total Bilirubin AST ALT Alkaline Phosphatase Lactate Dehydrogenase Troponin I High Sens C-Reactive Protein 10.17 H B-Natriuretic Peptide Total Protein Albumin Lipase Vitamin B12 Folate Procalcitonin 0.14 Urine Color Urine Appearance Urine pH Ur Specific [place] Urine Protein Urine Glucose (UA) Urine Ketones Urine Blood Urine Nitrite Ur Leukocyte Esterase Urine RBC Urine WBC Ur Squamous Epith Cells Urine Bacteria Hyaline Casts Stool Occult Blood Stool Leukocytes, Qual Stl C. cayetanensis PCR Stool Rotavirus A PCR Stl Adenov F 40/ PCR Stool Astrovirus (PCR) Stool Campylobacter PCR Stool Cryptosporidium PCR Stl Sh Tox Pr E STEC PCR Stool E coli O157 PCR Stl Enterotoxigenic E PCR Stool EPEC (PCR) Stool EAEC (PCR) Stl E. histolytica PCR Stool Giardia Lamblia PCR Stl P. shigelloides PCR Stool Salmonella PCR Stool Sapovirus (PCR) Stl Shigella/EIEC PCR St Y.enterocolitica PCR Stool Vibrio (PCR) Stl Vibrio cholerae PCR Stl Norovirus GI/GII PCR C. difficile Tox B Gene C. difficile Toxin A&B C. difficile Interpret 01/14/23 01/14/23 01/14/23 12:14 12:14 12:14 WBC RBC Hgb Hct MCV MCH MCHC RDW Plt Count MPV Immature Gran % (Auto) Neut % (Auto) Lymph % (Auto) [place] % (Auto) Eos % (Auto) Baso % (Auto) Lymph # (Auto) [place] # (Auto) Eos # (Auto) Baso # (Auto) Abs Immat Gran (auto) Absolute Neuts (auto) Absolute Nucleated RBC Nucleated RBC % (auto) Absolute Retic Percent Retic Immature Retic Fraction Retic Hgb Equivalent Sodium Potassium Chloride Carbon Dioxide Anion Gap BUN Creatinine Estim Creat Clear Calc Estimated GFR POC Glucose Random Glucose Lactic Acid Calcium Magnesium Iron TIBC % Saturation Unsat Iron Binding Ferritin Total Bilirubin AST ALT Alkaline Phosphatase Lactate Dehydrogenase Troponin I High Sens C-Reactive Protein B-Natriuretic Peptide Total Protein Albumin Lipase Vitamin B12 Folate Procalcitonin Urine Color Urine Appearance Urine pH Ur Specific [place] Urine Protein Urine Glucose (UA) Urine Ketones Urine Blood Urine Nitrite Ur Leukocyte Esterase Urine RBC Urine WBC Ur Squamous Epith Cells Urine Bacteria Hyaline Casts Stool Occult Blood NEGATIVE Stool Leukocytes, Qual Stl C. cayetanensis PCR Not Detected Stool Rotavirus A PCR Not Detected Stl Adenov F 40/41 PCR Not Detected Stool Astrovirus (PCR) Not Detected Stool Campylobacter PCR Not Detected Stool Cryptosporidium PCR Not Detected Stl Sh Tox Pr E STEC PCR Not Detected Stool E coli O157 PCR Not applicable Stl Enterotoxigenic E PCR Not Detected Stool EPEC (PCR) Not Detected Stool EAEC (PCR) Not Detected Stl E. histolytica PCR Not Detected Stool Giardia Lamblia PCR Not Detected Stl P. shigelloides PCR Not Detected Stool Salmonella PCR Not Detected Stool Sapovirus (PCR) Not Detected Stl Shigella/EIEC PCR Not Detected St Y.enterocolitica PCR Not Detected Stool Vibrio (PCR) Not Detected Stl Vibrio cholerae PCR Not Detected Stl Norovirus GI/GII PCR Not Detected C. difficile Tox B Gene POSITIVE A* C. difficile Toxin A&B Negative C. difficile Interpret SEE NOTE 01/14/23 01/14/23 01/15/23 12:14 13:24 05:20 WBC 11.4 H 9.1 RBC 3.51 L 3.11 L Hgb 11.0 L 9.7 L Hct 34.1 L 29.7 L MCV 97.2 95.5 MCH 31.3 31.2 MCHC 32.3 32.7 RDW 14.6 14.6 Plt Count 198 177 MPV 11.3 11.7 Immature Gran % (Auto) 0.6 H Neut % (Auto) 78.7 H Lymph % (Auto) 10.9 L Dougherty % (Auto) 5.3 Eos % (Auto) 4.0 Baso % (Auto) 0.5 Lymph # (Auto) 1.2 Dougherty # (Auto) 0.6 Eos # (Auto) 0.5 H Baso # (Auto) 0.1 Abs Immat Gran (auto) 0.07 H Absolute Neuts (auto) 9.0 H Absolute Nucleated RBC 0.000 0.000 Nucleated RBC % (auto) 0.0 0.0 Absolute Retic 0.104 H Percent Retic 3.4 H Immature Retic Fraction 12.0 Retic Hgb Equivalent 32.2 Sodium Potassium Chloride Carbon Dioxide Anion Gap BUN Creatinine Estim Creat Clear Calc Estimated GFR POC Glucose Random Glucose Lactic Acid Calcium Magnesium Iron TIBC % Saturation Unsat Iron Binding Ferritin Total Bilirubin AST ALT Alkaline Phosphatase Lactate Dehydrogenase Troponin I High Sens C-Reactive Protein B-Natriuretic Peptide Total Protein Albumin Lipase Vitamin B12 Folate Procalcitonin Urine Color Urine Appearance Urine pH Ur Specific [place] Urine Protein Urine Glucose (UA) Urine Ketones Urine Blood Urine Nitrite Ur Leukocyte Esterase Urine RBC Urine WBC Ur Squamous Epith Cells Urine Bacteria Hyaline Casts Stool Occult Blood Stool Leukocytes, Qual NEGATIVE Stl C. cayetanensis PCR Stool Rotavirus A PCR Stl Adenov F 40/ PCR Stool Astrovirus (PCR) Stool Campylobacter PCR Stool Cryptosporidium PCR Stl Sh Tox Pr E STEC PCR Stool E coli O157 PCR Stl Enterotoxigenic E PCR Stool EPEC (PCR) Stool EAEC (PCR) Stl E. histolytica PCR Stool Giardia Lamblia PCR Stl P. shigelloides PCR Stool Salmonella PCR Stool Sapovirus (PCR) Stl Shigella/EIEC PCR St Y.enterocolitica PCR Stool Vibrio (PCR) Stl Vibrio cholerae PCR Stl Norovirus GI/GII PCR C. difficile Tox B Gene C. difficile Toxin A&B C. difficile Interpret 01/15/23 01/15/23 01/15/23 05:20 08:48 20:00 WBC RBC Hgb Hct MCV MCH MCHC RDW Plt Count MPV Immature Gran % (Auto) Neut % (Auto) Lymph % (Auto) [place] % (Auto) Eos % (Auto) Baso % (Auto) Lymph # (Auto) [place] # (Auto) Eos # (Auto) Baso # (Auto) Abs Immat Gran (auto) Absolute Neuts (auto) Absolute Nucleated RBC Nucleated RBC % (auto) Absolute Retic Percent Retic Immature Retic Fraction Retic Hgb Equivalent Sodium 138 Potassium 3.0 L Chloride 102 Carbon Dioxide 24 Anion Gap 15 BUN 16 Creatinine 1.02 Estim Creat Clear Calc 30.9 Estimated GFR 52 POC Glucose Random Glucose 87 Lactic Acid Calcium 8.4 Magnesium 1.7 Iron 53 TIBC 146 L % Saturation 36 Unsat Iron Binding 93 Ferritin 161 Total Bilirubin AST ALT Alkaline Phosphatase Lactate Dehydrogenase 147 Troponin I High Sens C-Reactive Protein B-Natriuretic Peptide Total Protein Albumin Lipase Vitamin B12 1653 H Folate 18.1 Procalcitonin Urine Color Dark Yellow Urine Appearance Turbid Urine pH 5.5 Ur Specific [place] 1.015 Urine Protein 30 (1+) H Urine Glucose (UA) Negative Urine Ketones Negative Urine Blood Small (1+) H Urine Nitrite Positive H Ur Leukocyte Esterase Large (3+) H Urine RBC >20 H Urine WBC >50 H Ur Squamous Epith Cells 0-2 Urine Bacteria 4+ Hyaline Casts 3-5 Stool Occult Blood Stool Leukocytes, Qual Stl C. cayetanensis PCR Stool Rotavirus A PCR Stl Adenov F 40/ PCR Stool Astrovirus (PCR) Stool Campylobacter PCR Stool Cryptosporidium PCR Stl Sh Tox Pr E STEC PCR Stool E coli O157 PCR Stl Enterotoxigenic E PCR Stool EPEC (PCR) Stool EAEC (PCR) Stl E. histolytica PCR Stool Giardia Lamblia PCR Stl P. shigelloides PCR Stool Salmonella PCR Stool Sapovirus (PCR) Stl Shigella/EIEC PCR St Y.enterocolitica PCR Stool Vibrio (PCR) Stl Vibrio cholerae PCR Stl Norovirus GI/GII PCR C. difficile Tox B Gene C. difficile Toxin A&B C. difficile Interpret 01/16/23 01/16/23 05:31 05:31 WBC 8.1 RBC 3.48 L Hgb 10.8 L Hct 33.6 L MCV 96.6 MCH 31.0 MCHC 32.1 RDW 14.5 Plt Count 188 MPV 11.4 Immature Gran % (Auto) Neut % (Auto) Lymph % (Auto) [place] % (Auto) Eos % (Auto) Baso % (Auto) Lymph # (Auto) Dougherty # (Auto) Eos # (Auto) Baso # (Auto) Abs Immat Gran (auto) Absolute Neuts (auto) Absolute Nucleated RBC 0.000 Nucleated RBC % (auto) 0.0 Absolute Retic Percent Retic Immature Retic Fraction Retic Hgb Equivalent Sodium 140 Potassium 3.6 Chloride 103 Carbon Dioxide 25 Anion Gap 16 BUN 14 Creatinine 1.15 Estim Creat Clear Calc 27.4 Estimated GFR 45 POC Glucose Random Glucose 86 Lactic Acid Calcium 8.8 Magnesium 1.9 Iron TIBC % Saturation Unsat Iron Binding Ferritin Total Bilirubin AST ALT Alkaline Phosphatase Lactate Dehydrogenase Troponin I High Sens C-Reactive Protein 9.91 H B-Natriuretic Peptide Total Protein Albumin Lipase Vitamin B12 Folate Procalcitonin Urine Color Urine Appearance Urine pH Ur Specific [place] Urine Protein Urine Glucose (UA) Urine Ketones Urine Blood Urine Nitrite Ur Leukocyte Esterase Urine RBC Urine WBC Ur Squamous Epith Cells Urine Bacteria Hyaline Casts Stool Occult Blood Stool Leukocytes, Qual Stl C. cayetanensis PCR Stool Rotavirus A PCR Stl Adenov F 40/41 PCR Stool Astrovirus (PCR) Stool Campylobacter PCR Stool Cryptosporidium PCR Stl Sh Tox Pr E STEC PCR Stool E coli O157 PCR Stl Enterotoxigenic E PCR Stool EPEC (PCR) Stool EAEC (PCR) Stl E. histolytica PCR Stool Giardia Lamblia PCR Stl P. shigelloides PCR Stool Salmonella PCR Stool Sapovirus (PCR) Stl Shigella/EIEC PCR St Y.enterocolitica PCR Stool Vibrio (PCR) Stl Vibrio cholerae PCR Stl Norovirus GI/GII PCR C. difficile Tox B Gene C. difficile Toxin A&B C. difficile Interpret Narrative Narrative: Date of Service: 10/10/22 Procedure Type:? Transthoracic Echocardiogram Conclusions: - 1.? Moderate LV systolic dysfunction with wall motion? abnormality predominant in the LAD territory ? 2.? Moderately dilated left atrium ? 3.? [id number] aortic stenosis and mitral regurgitation? ? 4.? Normal RV systolic pressure? 5.? No gross pericardial effusion? Findings Left Ventricle Normal left ventricular cavity size.? There is mildly increased left ventricular wall thickness.? The left ventricular systolic function is moderately decreased.? The visually estimated ejection fraction is between 35 40%.? Diastolic function is indeterminate on the basis of available data. Wall Motion Rest Echo Findings The apical inferior and basal anteroseptal segments are hypokinetic. The apex, apical anterior, mid anterior, apical lateral, apical septum, and mid anteroseptal segments are akinetic. All other scored wall segments showed normal motion. Right Ventricle Mildly increased right ventricular cavity size.? There is borderline right ventricular systolic function. Atria The left atrium is moderately dilated.? Interatrial shunt cannot be excluded. ?The right atrium is likely dilated. Aortic Valve There is mild calcification of the aortic valve.? There is mild to moderate aortic valve stenosis.? The peak aortic gradient is 15 mmHg.The mean gradient is 8 mmHg.? There is no aortic valve regurgitation. Mitral Valve There is mild anterior and posterior mitral leaflet thickening. There is mild mitral annular calcification.? There is mild to moderate mitral valve regurgitation.? There is no mitral valve stenosis. Pulmonic Valve The pulmonic valve was not well visualized. Tricuspid Valve Likely normal tricuspid valve structure and function.? There is trace tricuspid valve regurgitation.? The right ventricular systolic pressure is normal.? The right ventricular systolic pressure is 19 mmHg.? Normal right atrial pressure.? There is no evidence of pulmonary hypertension. Great Vessels All visible segments of the aorta are normal in size.? The pulmonary artery was not well visualized. Venous The inferior vena cava is normal in size and collapses greater than 50% with inspiration. Pericardium/Pleural There is no evidence of pericardial effusion. Prior Study Comparison No prior study available for comparison. ?? Airway Mallampati Class: II TM Dist: >3cm Neck ROM: Limited Partial: Upper and Lower Loose/Missing/Broken Teeth: Yes (Dentures at home) Heart: Irregularly irregular Lungs: Crackles bases Assessment and Plan Assessment Anesthesia Assessment: Anesthesia Plan Discussed and Chart Reviewed Final Anesthetic Review Family History of Problems with Anesthesia: No History of Problems with Anesthesia: No NPO: Yes ASA Class: IV and Emergency Final Preanesthetic Review: No Changes in Pt Med Stat, Meds/Allgs Chart Reviewed, Consent Obtained/Reviewed and Anes Risks/Benef Reviewed Patient Risk: High Procedure Risk: Low Assessment/Block/Sedation in SS: Assess/Block/Sedation- Anesthetic Plan Anesthetic Plan: MAC: Disposition: Standard PACU and Inp. Admit - Standard Bed
[2023-01-16] MEDS: Sodium Phosphate,Mono-Dibasic 133 ML ENEMA PR (13:01)
[2023-01-16] MEDS: levalbuterol HCL 1.25 MG/3 ML VIAL.NEB INHALE ×2 (13:55→20:06)
--- NOTE | 2023-01-16 14:57 | MHC.SHP ---
Pre-Procedural Eval Section A Date of Service: 01/16/23 The patient is an INPATIENT: Yes The History & Physical has been completed within 30 days and I have reviewed it.: Yes Section B Chief Complaint: Diarrhea Allergies: Allergies Allergy/AdvReac Type Severity Reaction Status Date / Time carvedilol Allergy Shortness Verified 10/04/22 14:13 of Breath sertraline [From Zoloft] Allergy Shortness Verified 10/04/22 14:13 of Breath spironolactone Allergy Shortness Verified 10/04/22 14:13 of Breath adhesive tape AdvReac Severe skin tears Verified 12/20/22 13:43 mirtazapine AdvReac Severe psychotic Verified 01/13/23 16:11 episode Plan Diagnosis/Plan: Unchanged I have reviewed the history and physical and performed a pertinent physical examination on my patient. No changes have occurred unless specified. Time Spent With Patient Time: Total time managing care of this patient today ____ minutes.
--- NOTE | 2023-01-16 14:57 | W.PM.OPN ---
Operative Note Operative Note Date of Service: 01/16/23 Narrative: Procedure: Flexible sigmoidoscopy Indication: Diarrhea and colitis Endoscopist: Kimmy Marcelo MD Anesthesia Provider: Kami Hager CRNA Anesthesia type: MAC Instrument: Olympus [id number]-[id number] Consent: Indication, risks vs benefits, and alternatives were discussed with the patient and her daughter Ximena (HCP) who gave written informed consent to proceed. EKG, pulse, pulse oximetry and blood pressure were monitored throughout the procedure. Please see anesthesia flowsheet. Procedure: The patient was brought to the procedure room and placed in the left lateral decubitus position. IV medications were administered by the anesthesia provider in attendance. A digital rectal exam was performed which was normal. The gastroscope was then inserted through the anus and advanced through the colon to 60 cm. Mucosa was carefully examined under high definition white light as the instrument was slowly withdrawn in a retrograde panoramic fashion. Retroflexion was performed in rectum. The procedure was not difficult. There were no immediate obvious complications. Limitations: No limitations. Findings: Mucosa: Some residual staining of mucosa with stool obscuring complete visualisation but no obvious abnormality noted in the colon to the extent visualised. Cold forceps biopsies were taken from transverse, descending, sigmoid colon and rectum. Protruding lesions: Medium internal hemorrhoids without stigmata of recent bleeding. Excavated lesions: Moderate diverticulosis of left sided colon. Impression: 1. Normal colon mucosa (biopsy) 2. Diverticulosis 3. Internal hemorrhoids Recommendations: - Follow path results. - Patient and daughter were encouraged to follow up with their outpatient roof cement and paint maker helper for further work up for unintentional weight loss
--- NOTE | 2023-01-16 15:18 | MHC.CM.PN ---
EMR REVIEWED AND PER MD ROUNDS PT WILL HAVE A SIGMOIDOSCOPY TODAY. CM WILL CONTINUE TO FOLLOW FOR DC PLAN/NEEDS.
[2023-01-16] MEDS: Lactated Ringers 1,000 ML 50 ML IVCONT (16:42)
[2023-01-16] MEDS: Atorvastatin Calcium 40 MG TABLET PO (21:03)
[2023-01-16] MEDS: Magnesium Oxide 400 MG TABLET PO (21:04)
[2023-01-16] MEDS: Thiamine HCL 100 MG TABLET PO (21:05)
[2023-01-16] MEDS: Omeprazole 20 MG CAPSULE.DR PO (21:05)
[2023-01-16] MEDS: QUEtiapine Fumarate 50 MG TABLET PO (21:05)
[2023-01-16] MEDS: Montelukast Sodium 10 MG TABLET PO (21:05)
[2023-01-16] MEDS: Melatonin 3 MG TABLET 6 MG PO (21:06)
[2023-01-17] VITALS (7 sets, daily range): BP systolic 133–157; BP diastolic 57–68; PULSE 69–91; RESP 16–18; TEMP 36–36.2; O2SAT 95–98
[2023-01-17] MEDS: guaiFENesin 100 MG/5 ML LIQUID PO ×2 (01:27→21:50)
[2023-01-17] MEDS: vancomycin HCL Oral Solution 125 MG/5 ML SOLN.RECON PO (05:36)
[2023-01-17 06:31] LABS: Hematocrit 29.4 % (37.0-47.0); Hemoglobin 9.4 g/dl (12.0-16.0); Mean Corpuscular Hemoglobin 31.2 pg (27.0-33.0); Mean Corpuscular Volume 97.7 fL (80.0-98.0); Platelet Count 185 X10*3/uL (160-400); Red Blood Count 3.01 X10*6/uL (4.20-5.50); Red Cell Distribution Width 14.4 % (11.0-16.0); White Blood Count 8.2 X10*3/uL (4.8-10.8)
[2023-01-17] MEDS: levalbuterol HCL 1.25 MG/3 ML VIAL.NEB INHALE ×3 (07:51→20:21)
[2023-01-17] MEDS: oxyBUTYnin chloride ER 5 MG TAB.ER.24 PO (08:32)
[2023-01-17] MEDS: Isosorbide Mononitrate 30 MG TAB.ER.24H PO (08:33)
[2023-01-17] MEDS: Potassium Chloride ER 20 MEQ TAB.ER.PRT 40 MEQ PO (08:33)
[2023-01-17] MEDS: Thiamine HCL 100 MG TABLET PO ×2 (08:33→21:50)
[2023-01-17] MEDS: Torsemide 20 MG TABLET PO (08:34)
[2023-01-17] MEDS: Metoprolol Tartrate 25 MG TABLET PO ×2 (08:34→21:49)
[2023-01-17] MEDS: risperiDONE 0.25 MG TABLET PO (08:34)
[2023-01-17] MEDS: traMADoL HCL 50 MG TABLET 25 MG PO (08:34)
[2023-01-17] MEDS: Multivitamin TABLET 1 TAB PO (08:34)
[2023-01-17] MEDS: Ferrous Sulfate 324 MG TABLET.DR PO (08:34)
--- NOTE | 2023-01-17 09:18 | HO.POSTANES ---
Post Anesthesia Evaluation Post Anesthesia Evaluation Date of Service: 01/17/23 Vital Signs: Vital Signs Temp Pulse Resp BP Pulse Ox O2 Del Method O2 Flow Rate 01/17/23 07:51 76 18 01/17/23 07:40 96.8 F 91 18 157/68 H 95 Nasal Cannula 1 01/16/23 23:37 97.6 F 72 24 H 118/58 L 98 Nasal Cannula 1 01/16/23 23:00 16 Anesthesia: Monitored Mental Status: Awake Pain Control: Satisfactory Nausea/Vomiting: None Hydration: Adequate Anesthesia-Related Issues: No Anes. Related Issues
--- NOTE | 2023-01-17 12:00 | PC.NURSE ---
Addendum entered by Mireille Stout RN 01/17/23 17:51: Pt refusing 18:00 scheduled VancomycinMD aware, documented in the MAR. Original Note: Pt refused 12:00 scheduled VancomycinMD made aware, documented in the MAR.
--- NOTE | 2023-01-17 13:54 | P.DS_ITS ---
DS: Providers Provider Date of Service: 01/17/23 Date of admission: 01/14/23 00:57 Primary care physician: Monica Arciniega MD Consults: 01/14/23 01:08 Consult to Gastroenterology Routine Consulting Provider: Kimmy Marcelo Reason for consultation: colitis DS: Diagnosis Discharge Diagnosis (1) Colitis: Status: Acute DS: Summary Hospital Course Hospital Course: history of presenting illness: Date of Service: 01/14/23 Chief Complaint: Diarrhea This is a 82-year-old female with pertinent history of dementia, paroxysmal atrial fibrillation not on anticoagulation, CAD, COPD, congestive heart failure, mixed hyperlipidemia who presents to the emergency department for evaluation of diarrhea.? Patient is a poor historian and history is obtained by daughter at bedside.? Daughter states that patient has had multiple episodes of diarrhea that began 5 days prior to presentation.? Daughter states that she called her PCP and was asked to give loperamide.? Patient had about 7-8 episodes of loose stools every day.? The daughter thought that the stools were dark but did not see nathaly blood.? Patient also complained of associated abdominal pain.? No fever or chills.? No cough.? No chest discomfort, palpitations, shortness of breath.? Patient was recently admitted for sepsis secondary to aspiration pneumonia and discharged on 12/27.? She recently completed a course of Augmentin for aspiration pneumonia and Bactrim for UTI. In the emergency department, imaging concerning for colitis. hospital course: 82yo with recent admission for aspiration pneumonia 12/23-12/27 discharged on amox-clav, COPD, CAD, CHF, HLD, pAF not on AC, dementia,presenting with diarrhea, found to have acute colitis on CT abdomen and pelvis acute colitis, patient admitted to medical floor due to diarrhea with no assoc iated fever chills, and treated with by mouth vancomycin for for suspected C diff infection, and IV fluids, C. diff studies consistent with colonization case discussed with id will finish a total 10 day course of antibiotics, patient also underwent flexible sigmoidoscopy by GI, it showed normal colon mucosa, diverticulosis internal hemorrhoids biopsies taken report pending, since patient WBC normalize, she is tolerating diet with no nausea, no vomiting, no abdominal pain, had 1-2 bowel movement in last 24 hours she is being discharged home. hypoK resolved paroxysmal atrial fibrillation continue metoprolol not on anticoagulation due to history of severe bleeding. chronic anemia - FOBT negative, continue FeSO4 chronic HFrEF - no acute decompensation noted, continue metoprolol + Imdur, and torsemide dementia unspecified - continue quetiapine, risperidone COPD - continue prednisone, montelukast, Anoro and as needed nebulizer RLL consolidation - from recent PNA/RLL collapse, have moderate right pleural effusion, continue nebs, pulmonary toilet, 97% on room air, outpatient follow-up with PCP with repeat chest x-ray 3-4 weeks. UA positive, but patient urine culture showed mixed bacterial rowdy likley urogenital contamination, no treatment needed. Time Spent with Patient Time attestation: Total time managing care of this patient today ____ minutes. Discharge coordination time: Greater than 30 minutes Quality: Safe Use of Opioids Does Pt have an Active Cancer Diagnosis on the Problem List?: No Quality: Stroke Does the patient have a stroke diagnosis?: No Physical Exam Vital Signs: Vital Signs: Last Vital Signs Temp 96.8 F 01/17/23 07:40 Pulse 76 01/17/23 13:31 Resp 18 01/17/23 07:51 BP 157/68 H 01/17/23 07:40 Pulse Ox 95 01/17/23 07:40 O2 Del Method Nasal Cannula 01/17/23 07:40 O2 Flow Rate 1 01/17/23 07:40 BMI result Body Mass Index 26.7 Const: Other: Gen: in no acute distress HEENT: sclera an icteric, moist mucus membranes Neck: supple Lungs: clear to auscultation, diminished right base Heart: regular rate and rhythm, no murmurs Abd: soft, non tender, bowel sounds audible Ext: no edema Skin: warm/well-perfused Neuro: alert and oriented to self and place, no focal findings Psych: appropriate affect DS: Data Data Completed and Pending Completed studies during hospitalization [Text1]: Procedures Supplement Abdominal Wall with Synthetic Substitute, Open Approach (09/17/22) Transfusion of Nonautologous Red Blood Cells into Peripheral Vein, Percutaneous Approach (04/06/22) Pending studies at discharge: Pending at discharge 01/16/23 15:17 Surgical [PTH] Routine Labs on day of discharge: Laboratory Results - last 24 hr 01/17/23 05:48 WBC 8.2 RBC 3.01 L Hgb 9.4 L Hct 29.4 L MCV 97.7 MCH 31.2 MCHC 32.0 RDW 14.4 Plt Count 185 MPV 12.0 Absolute Nucleated RBC 0.000 Nucleated RBC % (auto) 0.0 Preliminary micro results at discharge 01/13/23 21:07 Blood Culture - Preliminary Blood - Venous No growth after 48 hours. 01/13/23 20:50 Blood Culture - Preliminary Blood - Venous No growth after 48 hours. Discharge Plan Discharge Anticipated Discharge Date/Time: 01/17/23 11:29 Patient Disposition: Home Health Service Discharge Diagnosis: acute colitis hypokalemia Referrals: Monica Arciniega MD [Primary Care Provider] - 1 Week Discharge Medications: New vancomycin [Vancocin] 125 mg capsule 125 mg PO QID Qty: 28 0RF Continued ferrous sulfate 325 mg (65 mg iron) tablet 325 mg PO DAILY 0RF (DME) Aerochamber MV Spacer See Rx Instructions .ROUTE .MEDSUPPLY Qty: 1 0RF Rx Instructions: As directed Anoro Ellipta 62.5-25 mcg/actuation blister with device 1 ea inhalation DAILY Rx Instructions: do not interchange, daughter will bring in isosorbide mononitrate 30 mg tablet extended release 24 hr 30 mg PO DAILY thiamine HCl (vitamin B1) 100 mg tablet 100 mg PO BID aspirin 81 mg tablet,delayed release (DR/EC) 81 mg PO DAILY pantoprazole 40 mg tablet,delayed release (DR/EC) 40 mg PO BID albuterol sulfate [Ventolin HFA] 90 mcg/actuation HFA aerosol inhaler 2 puff INHALATION Q4-6H PRN (Reason: Shortness Of Breath Or Wheezing) levalbuterol HCl 1.25 mg/3 mL solution for nebulization 1.25 mg inhalation TID metoprolol tartrate 25 mg Tablet 25 mg PO BID 30 Days Qty: 60 0RF Protocol: Hold for SBP/HR < HOLD for SBP < : 90 HOLD for HR < : 60 atorvastatin [Lipitor] 40 mg tablet 40 mg PO BEDTIME Qty: 30 0RF risperidone 0.25 mg tablet 0.25 mg PO DAILY nystatin 100,000 unit/gram Powder 1 appl topical BID Qty: 60 2RF Protocol: Apply to: Apply to: Abdominal Fold loperamide 2 mg Capsule 2 mg PO Q4H PRN (Reason: diarrhea) Qty: 20 0RF quetiapine 50 mg tablet 50 mg PO BEDTIME torsemide 20 mg tablet 20 mg PO DAILY multivitamin Tablet 1 tab PO DAILY acetaminophen 325 mg Tablet 650 mg PO Q6H PRN (Reason: Pain) potassium 99 mg Tablet 99 mg PO DAILY potassium chloride 20 mEq tablet extended release 40 meq PO DAILY fluticasone propionate 50 mcg/actuation spray,suspension 1 spray intranasal BID Rx Instructions: 1 spray into each nostril montelukast 10 mg tablet 10 mg PO BEDTIME oxybutynin chloride 5 mg tablet extended release 24hr 5 mg PO DAILY tramadol 50 mg tablet 25 mg PO DAILY (DME) nebulizers Kit See Rx Instructions .ROUTE Rx Instructions: As directed prednisone 5 mg tablet 5 mg PO DAILY 30 Days Qty: 30 4RF Held magnesium oxide 400 mg (241.3 mg magnesium) tablet 400 mg PO BEDTIME Hold Instructions: Resume on 01/23/23. Discharge Orders: Discharge Order (Routine); Ordered 01/17/23 Ordered By: Keith Bai Diet: Advance to usual diet Activity on Discharge: As tolerated Stand Alone Forms: Patient Portal Discharge page Care Plan Goals: take vancomycin 1 tablet 4 times a day for total 7 days, avoid high-fiber diet for next few days. Health Concerns: CHF, COPD, hypokalemia. take all home medication hold magnesium as directed to avoid loose stools Plan of Treatment: outpatient follow-up with primary care physician call for appointment Assessment: as above
--- NOTE | 2023-01-17 14:02 | MHC.CM.PN ---
IMM 01/17/23 11:30am. Patient is appealing the discharge. A detailed notice of discharge was provided to the patient. CM assistant women's rowing coach is aware of the Appeal. She is preparing to send the EMR to [facility]. Patient has requested that another Hospitalist take over her care. Notified MD of patient request.
--- NOTE | 2023-01-17 14:08 | PM.EVENT ---
Event Note Date of Service: 01/17/23 Event Note: patient discharged home with VNA services/ PT however patient daughter declined to take her home due to concern for loose stools since she was having 5-6 loose stools at home prior to admission explained to family that patient is not having frequent stools, tolerating diet no nausea, no vomiting ,no abdominal pain, hemodynamically stable with normal renal function, normal CBC patient had total 2 episodes of bowel movement in last 24 hours and does not require continued inpatient hospitalization. Time Spent With Patient Time: Total time managing care of this patient today ____ minutes.
[2023-01-17] MEDS: Omeprazole 20 MG CAPSULE.DR PO (21:49)
[2023-01-17] MEDS: QUEtiapine Fumarate 50 MG TABLET PO (21:50)
[2023-01-17] MEDS: Acetaminophen 325 MG TABLET 650 MG PO (21:50)
[2023-01-17] MEDS: Atorvastatin Calcium 40 MG TABLET PO (21:50)
[2023-01-17] MEDS: Montelukast Sodium 10 MG TABLET PO (21:50)
[2023-01-17] MEDS: 0.9 % Sodium Chloride Flush 3 ML SYRINGE IVFLUSH (21:51)
[2023-01-17] MEDS: Nystatin Powder 15 GM BOTTLE 1 APPL TOPICAL (21:54)
[2023-01-17] MEDS: Fluticasone Propionate Nasal 16 GM SPRAY 1 SPRAY NOSTRIL-B (21:56)
[2023-01-18] VITALS (7 sets, daily range): BP systolic 120–149; BP diastolic 60–67; PULSE 63–91; RESP 16–20; TEMP 36.1–36.4; O2SAT 94–97
--- NOTE | 2023-01-18 09:55 | HO.PM.IMPN ---
Subjective Subjective Date of Service: 01/18/23 Interval History: resting comfortably, denies abdominal pain at this time. Physical Exam Vital Signs: Vital Signs: Last Vital Signs Temp 97 F 01/18/23 04:00 Pulse 70 01/18/23 04:00 Resp 16 01/18/23 04:00 BP 120/62 01/18/23 04:00 Pulse Ox 97 01/18/23 04:00 O2 Del Method Room Air 01/18/23 04:00 O2 Flow Rate 1 01/17/23 07:40 BMI result Body Mass Index 26.7 Const: Other: Gen: in no acute distress HEENT: sclera an icteric, moist mucus membranes Neck: supple Lungs: clear to auscultation, diminished right base Heart: regular rate and rhythm, no murmurs Abd: soft, non tender, bowel sounds audible Ext: no edema Skin: warm/well-perfused Neuro: alert and oriented to self and place, no focal findings Psych: appropriate affect Objective Data Active Medications Acetaminophen (Acetaminophen 325 Mg Tablet) 650 mg PO Q6H PRN PRN Reason: Pain, Mild (Pain Scale 1-3) Last Admin: 01/17/23 21:50 Dose: 650 mg Documented By: YULY Albuterol/Ipratropium (Albuterol/Iprat 2.5/0.5mg 3 Ml Ampul.Neb) 3 ml INHALE RQ4H PRN PRN Reason: shortness of breath/wheezing Atorvastatin Calcium (Atorvastatin Calcium 40 Mg Tablet) 40 mg PO BEDTIME [facility] Last Admin: 01/17/23 21:50 Dose: 40 mg Documented By: YULY Ferrous Sulfate (Ferrous Sulfate 324 Mg Tablet.Dr) 324 mg PO DAILY [facility] Last Admin: 01/17/23 08:34 Dose: 324 mg Documented By: SAIDA Fluticasone Propionate (Fluticasone Propionate Nasal 16 Gm [place]) 1 spray NOSTRIL-B BID [facility] Last Admin: 01/17/23 21:56 Dose: 1 spray Documented By: YULY Guaifenesin (Guaifenesin 100 Mg/5 Ml Liquid) 5 ml PO Q4H PRN PRN Reason: Cough Last Admin: 01/17/23 21:50 Dose: 5 ml Documented By: YULY Isosorbide Mononitrate (Isosorbide Mononitrate 30 Mg Tab.Er.24h) 30 mg PO DAILY [facility]; Protocol Last Admin: 01/17/23 08:33 Dose: 30 mg Documented By: SAIDA Levalbuterol HCl (Levalbuterol Hcl 1.25 Mg/3 Ml Vial.Neb) 1.25 mg INHALE TID [facility] Last Admin: 01/18/23 08:53 Dose: Not Given Documented By: HELLEN Non-Admin Reason: Patient Refused Melatonin (Melatonin 3 Mg Tablet) 6 mg PO BEDTIME PRN PRN Reason: Insomnia Last Admin: 01/16/23 21:06 Dose: 6 mg Metoprolol Tartrate (Metoprolol Tartrate 25 Mg Tablet) 25 mg PO BID [facility]; Protocol Last Admin: 01/17/23 21:49 Dose: 25 mg Documented By: YULY Montelukast Sodium (Montelukast Sodium 10 Mg Tablet) 10 mg PO BEDTIME [facility] Last Admin: 01/17/23 21:50 Dose: 10 mg Documented By: YULY Multivitamins/Vitamin C (Multivitamin Tablet) 1 tab PO DAILY [facility] Last Admin: 01/17/23 08:34 Dose: 1 tab Documented By: SAIDA Non-Formulary Medication (Umeclidinium-Vilanterol [Anoro Ellipta]) 1 each INHALE DAILY [facility] Nystatin (Nystatin Powder 15 Gm Bottle) 1 appl TOPICAL BID [facility]; Protocol Last Admin: 01/17/23 21:54 Dose: 1 appl Documented By: YULY Omeprazole (Omeprazole 20 Mg Capsule.) 20 mg PO BID [facility] Last Admin: 01/17/23 21:49 Dose: 20 mg Documented By: YULY Ondansetron HCl (Ondansetron Hcl 4 Mg/2 Ml Vial) 4 mg IVPUSH Q8H PRN PRN Reason: Nausea and Vomiting Oxybutynin Chloride (Oxybutynin Chloride Er 5 Mg Tab.Er.24) 5 mg PO DAILY [facility] Last Admin: 01/17/23 08:32 Dose: 5 mg Documented By: SADIA Pharmacy Consult (Consult Rx Perform Med Rec) 1 each MISCELLANE ONCE PRN PRN Reason: Consult order Potassium Chloride (Potassium Chloride Er 20 Meq Tab.Er.Prt) 40 meq PO DAILY [facility] Last Admin: 01/17/23 08:33 Dose: 40 meq Documented By: SAIDA Prednisone (Prednisone 5 Mg Tablet) 5 mg PO DAILY [facility] Last Admin: 01/17/23 08:32 Dose: Not Given Documented By: SAIDA Non-Admin Reason: Patient Refused Quetiapine Fumarate (Quetiapine Fumarate 50 Mg Tablet) 50 mg PO BEDTIME [facility] Last Admin: 01/17/23 21:50 Dose: 50 mg Documented By: YULY Risperidone (Risperidone 0.25 Mg Tablet) 0.25 mg PO DAILY [facility] Last Admin: 01/17/23 08:34 Dose: 0.25 mg Documented By: SAIDA Sodium Chloride (0.9 % Sodium Chloride Flush 3 Ml Syringe) 3 ml IVFLUSH QSHIFT [facility] Last Admin: 01/17/23 21:51 Dose: 3 ml Documented By: YULY Thiamine HCl (Thiamine Hcl 100 Mg Tablet) 100 mg PO BID [facility] Last Admin: 01/17/23 21:50 Dose: 100 mg Documented By: YULY Torsemide (Torsemide 20 Mg Tablet) 20 mg PO DAILY [facility]; Protocol Last Admin: 01/17/23 08:34 Dose: 20 mg Documented By: SAIDA Tramadol HCl (Tramadol Hcl 50 Mg Tablet) 25 mg PO DAILY [facility] Last Admin: 01/17/23 08:34 Dose: 25 mg Documented By: SAIDA Vancomycin HCl (Vancomycin Hcl Oral Solution 125 Mg/5 Ml Soln.Recon) 125 mg PO Q6H [facility] Last Admin: 01/18/23 06:12 Dose: Not Given Documented By: JAG Non-Admin Reason: Patient Refused Labs 01/17/23 05:48 01/16/23 05:31 Microbiology Microbiology Results: Microbiology 01/15/23 Unknown Urine Culture - Final Urine clean catch - Urine mcdonald top Assessment and Plan (1) Colitis: Status: Acute Plan ospital course: 82yo with recent admission for aspiration pneumonia 12/23-12/27 discharged on amox-clav, COPD, CAD, CHF, HLD, pAF not on AC, dementia,presenting with diarrhea, found to have acute colitis on CT abdomen and pelvis ?acute colitis, patient admitted to medical floor? due to diarrhea with no associated fever chills, and treated with by mouth vancomycin for for suspected C diff infection,? and IV fluids, C. diff studies consistent with colonization ?case discussed with? id will finish a total 10 day course of antibiotics, patient also underwent flexible sigmoidoscopy by GI, it showed normal colon mucosa, diverticulosis internal hemorrhoids biopsies taken report pending, since ?patient WBC normalize, she is tolerating diet with no nausea, no vomiting, no abdominal pain, had 1-2 bowel movement in last 24 hours she is being discharged home but appealing discharge hypoK resolved ?paroxysmal atrial fibrillation continue metoprolol not on anticoagulation due to history of severe bleeding. chronic anemia - FOBT negative, continue FeSO4 chronic HFrEF - no acute decompensation noted, continue metoprolol + Imdur, and torsemide dementia unspecified - continue quetiapine, risperidone COPD - continue prednisone, montelukast, Anoro and as needed nebulizer RLL consolidation - from recent PNA/RLL collapse, have moderate right pleural effusion, continue nebs, pulmonary toilet, 97% on room air, outpatient follow-up with PCP with repeat chest x-ray 3-4 weeks. UA positive, but patient urine culture showed mixed bacterial rowdy bentonley urogenital contamination, no treatment needed. Apealing discharge Time Spent With Patient Time: Total time managing care of this patient today ____ minutes. Quality Stroke Does the patient have a stroke diagnosis?: No VTE Prior VTE?: No VTE Risk Level:: Medical - moderate - high VTE Device Contraindication: N/A - Device Ordered VTE Drug Contraindication: Treatment Not Indicated
[2023-01-18] MEDS: oxyBUTYnin chloride ER 5 MG TAB.ER.24 PO (10:21)
[2023-01-18] MEDS: 0.9 % Sodium Chloride Flush 3 ML SYRINGE IVFLUSH ×2 (10:21→17:01)
[2023-01-18] MEDS: Ferrous Sulfate 324 MG TABLET.DR PO (10:21)
[2023-01-18] MEDS: Isosorbide Mononitrate 30 MG TAB.ER.24H PO (10:22)
[2023-01-18] MEDS: Metoprolol Tartrate 25 MG TABLET PO ×2 (10:22→21:59)
[2023-01-18] MEDS: Omeprazole 20 MG CAPSULE.DR PO (10:23)
[2023-01-18] MEDS: Multivitamin TABLET 1 TAB PO (10:23)
[2023-01-18] MEDS: Thiamine HCL 100 MG TABLET PO ×2 (10:23→21:58)
[2023-01-18] MEDS: traMADoL HCL 50 MG TABLET 25 MG PO (10:23)
[2023-01-18] MEDS: predniSONE 5 MG TABLET PO (10:24)
[2023-01-18] MEDS: Potassium Chloride ER 20 MEQ TAB.ER.PRT 40 MEQ PO (10:24)
[2023-01-18] MEDS: Fluticasone Propionate Nasal 16 GM SPRAY 1 SPRAY NOSTRIL-B ×2 (10:39→22:07)
[2023-01-18] MEDS: vancomycin HCL Oral Solution 125 MG/5 ML SOLN.RECON PO ×2 (12:57→17:57)
[2023-01-18] MEDS: Torsemide 20 MG TABLET PO (12:59)
[2023-01-18] MEDS: risperiDONE 0.25 MG TABLET PO (12:59)
--- NOTE | 2023-01-18 15:07 | MHC.CM.PN ---
IMM 01/17/23 Appeal is still pending. DP home With VNA via BLS when discharged.
[2023-01-18] MEDS: levalbuterol HCL 1.25 MG/3 ML VIAL.NEB INHALE (15:17)
[2023-01-18] MEDS: Atorvastatin Calcium 40 MG TABLET PO (21:58)
[2023-01-18] MEDS: Montelukast Sodium 10 MG TABLET PO (21:59)
[2023-01-18] MEDS: QUEtiapine Fumarate 50 MG TABLET PO (21:59)
[2023-01-19] MEDS: vancomycin HCL Oral Solution 125 MG/5 ML SOLN.RECON PO ×2 (01:14→12:38)
[2023-01-19] MEDS: 0.9 % Sodium Chloride Flush 3 ML SYRINGE IVFLUSH ×2 (01:15→09:30)
[2023-01-19 03:54] VITALS: BP 159/80; PULSE 71; RESP 19; TEMP 36.6; O2SAT 95
[2023-01-19] MEDS: guaiFENesin 100 MG/5 ML LIQUID PO (06:15)
[2023-01-19 07:31] VITALS: BP 162/67; PULSE 80; RESP 18; TEMP 36.1; O2SAT 95
[2023-01-19] MEDS: Potassium Chloride ER 20 MEQ TAB.ER.PRT 40 MEQ PO (09:30)
[2023-01-19] MEDS: Multivitamin TABLET 1 TAB PO (09:31)
[2023-01-19] MEDS: Thiamine HCL 100 MG TABLET PO (09:31)
[2023-01-19] MEDS: predniSONE 5 MG TABLET PO (09:31)
[2023-01-19] MEDS: Ferrous Sulfate 324 MG TABLET.DR PO (09:31)
[2023-01-19] MEDS: Metoprolol Tartrate 25 MG TABLET PO (09:32)
[2023-01-19] MEDS: Isosorbide Mononitrate 30 MG TAB.ER.24H PO (09:32)
[2023-01-19] MEDS: oxyBUTYnin chloride ER 5 MG TAB.ER.24 PO (09:32)
[2023-01-19] MEDS: Omeprazole 20 MG CAPSULE.DR PO (09:32)
[2023-01-19] MEDS: Fluticasone Propionate Nasal 16 GM SPRAY 1 SPRAY NOSTRIL-B (09:32)
[2023-01-19] MEDS: Torsemide 20 MG TABLET PO (09:32)
[2023-01-19] MEDS: risperiDONE 0.25 MG TABLET PO (09:33)
--- NOTE | 2023-01-19 10:14 | PM.DS ---
DS: Providers Provider Date of Service: 01/19/23 Date of admission: 01/14/23 00:57 Primary care physician: Monica Arciniega MD Consults: 01/14/23 01:08 Consult to Gastroenterology Routine Consulting Provider: Kimmy Marcelo Reason for consultation: colitis DS: Diagnosis Discharge Diagnosis (1) Colitis: Status: Acute DS: Summary Hospital Course Hospital Course: history of presenting illness: Date of Service: 01/14/23 Chief Complaint: Diarrhea This is a 82-year-old female with pertinent history of dementia, paroxysmal atrial fibrillation not on anticoagulation, CAD, COPD, congestive heart failure, mixed hyperlipidemia who presents to the emergency department for evaluation of diarrhea.? Patient is a poor historian and history is obtained by daughter at bedside.? Daughter states that patient has had multiple episodes of diarrhea that began 5 days prior to presentation.? Daughter states that she called her PCP and was asked to give loperamide.? Patient had about 7-8 episodes of loose stools every day.? The daughter thought that the stools were dark but did not see nathaly blood.? Patient also complained of associated abdominal pain.? No fever or chills.? No cough.? No chest discomfort, palpitations, shortness of breath.? Patient was recently admitted for sepsis secondary to aspiration pneumonia and discharged on 12/27.? She recently completed a course of Augmentin for aspiration pneumonia and Bactrim for UTI. In the emergency department, imaging concerning for colitis. hospital course: 82yo with recent admission for aspiration pneumonia 12/23-12/27 discharged on amox-clav, COPD, CAD, CHF, HLD, pAF not on AC, dementia,presenting with diarrhea, found to have acute colitis on CT abdomen and pelvis acute colitis, patient admitted to medical floor due to diarrhea with no associated fever chills, and treated with by mouth vancomycin for for suspected C diff infection, and IV fluids, C. diff studies consistent with colonization case discussed with id will finish a total 10 day course of antibiotics, patient also underwent flexible sigmoidoscopy by GI, it showed normal colon mucosa, diverticulosis internal hemorrhoids biopsies taken report pending, since patient WBC normalize, she is tolerating diet with no nausea, no vomiting, no abdominal pain, had 1-2 bowel movement in last 24 hours and stool is now formed, CBC, mag k have been unremarkable paroxysmal atrial fibrillation continue metoprolol not on anticoagulation due to history of severe bleeding. chronic anemia - FOBT negative, continue FeSO4 chronic HFrEF - no acute decompensation noted, continue metoprolol + Imdur, and torsemide dementia unspecified - continue quetiapine, risperidone COPD - continue prednisone, montelukast, Anoro and as needed nebulizer RLL consolidation - from recent PNA/RLL collapse, have moderate right pleural effusion, continue nebs, pulmonary toilet, 97% on room air, outpatient follow-up with PCP with repeat chest x-ray 3-4 weeks. UA positive, but patient urine culture showed mixed bacterial rowdy likley urogenital contamination, no treatment needed. Time Spent with Patient Time attestation: Total time managing care of this patient today ____ minutes. Discharge coordination time: Greater than 30 minutes Quality: Safe Use of Opioids Does Pt have an Active Cancer Diagnosis on the Problem List?: No Quality: Stroke Does the patient have a stroke diagnosis?: No Physical Exam Vital Signs: Vital Signs: Last Vital Signs Temp 97.0 F 01/19/23 07:31 Pulse 80 01/19/23 07:31 Resp 18 01/19/23 07:31 BP 162/67 H 01/19/23 07:31 Pulse Ox 95 01/19/23 07:31 O2 Del Method Room Air 01/19/23 07:31 O2 Flow Rate 1 01/17/23 07:40 BMI result Body Mass Index 26.7 DS: Data Data Completed and Pending Completed studies during hospitalization [Text1]: Pending at discharge 01/16/23 15:17 Surgical [PTH] Routine Procedures Supplement Abdominal Wall with Synthetic Substitute, Open Approach (09/17/22) Transfusion of Nonautologous Red Blood Cells into Peripheral Vein, Percutaneous Approach (04/06/22) Discharge Plan Discharge Anticipated Discharge Date/Time: 01/17/23 11:29 Patient Disposition: Home Health Service Discharge Diagnosis: acute colitis hypokalemia Referrals: Monica Arciniega MD [Primary Care Provider] - 1 Week Discharge Medications: New vancomycin [Vancocin] 125 mg capsule 125 mg PO QID Qty: 28 0RF Continued ferrous sulfate 325 mg (65 mg iron) tablet 325 mg PO DAILY 0RF (DME) Aerochamber MV Spacer See Rx Instructions .ROUTE .MEDSUPPLY Qty: 1 0RF Rx Instructions: As directed Anoro Ellipta 62.5-25 mcg/actuation blister with device 1 ea inhalation DAILY Rx Instructions: do not interchange, daughter will bring in isosorbide mononitrate 30 mg tablet extended release 24 hr 30 mg PO DAILY thiamine HCl (vitamin B1) 100 mg tablet 100 mg PO BID aspirin 81 mg tablet,delayed release (DR/EC) 81 mg PO DAILY pantoprazole 40 mg tablet,delayed release (DR/EC) 40 mg PO BID albuterol sulfate [Ventolin HFA] 90 mcg/actuation HFA aerosol inhaler 2 puff INHALATION Q4-6H PRN (Reason: Shortness Of Breath Or Wheezing) levalbuterol HCl 1.25 mg/3 mL solution for nebulization 1.25 mg inhalation TID metoprolol tartrate 25 mg Tablet 25 mg PO BID 30 Days Qty: 60 0RF Protocol: Hold for SBP/HR < HOLD for SBP < : 90 HOLD for HR < : 60 atorvastatin [Lipitor] 40 mg tablet 40 mg PO BEDTIME Qty: 30 0RF risperidone 0.25 mg tablet 0.25 mg PO DAILY nystatin 100,000 unit/gram Powder 1 appl topical BID Qty: 60 2RF Protocol: Apply to: Apply to: Abdominal Fold loperamide 2 mg Capsule 2 mg PO Q4H PRN (Reason: diarrhea) Qty: 20 0RF quetiapine 50 mg tablet 50 mg PO BEDTIME torsemide 20 mg tablet 20 mg PO DAILY multivitamin Tablet 1 tab PO DAILY acetaminophen 325 mg Tablet 650 mg PO Q6H PRN (Reason: Pain) potassium 99 mg Tablet 99 mg PO DAILY potassium chloride 20 mEq tablet extended release 40 meq PO DAILY fluticasone propionate 50 mcg/actuation spray,suspension 1 spray intranasal BID Rx Instructions: 1 spray into each nostril montelukast 10 mg tablet 10 mg PO BEDTIME oxybutynin chloride 5 mg tablet extended release 24hr 5 mg PO DAILY tramadol 50 mg tablet 25 mg PO DAILY (DME) nebulizers Kit See Rx Instructions .ROUTE Rx Instructions: As directed prednisone 5 mg tablet 5 mg PO DAILY 30 Days Qty: 30 4RF Held magnesium oxide 400 mg (241.3 mg magnesium) tablet 400 mg PO BEDTIME Hold Instructions: Resume on 01/23/23. Discharge Orders: Discharge Order (Routine); Ordered 01/17/23 Ordered By: Keith Bai Diet: Advance to usual diet Activity on Discharge: As tolerated Stand Alone Forms: Patient Portal Discharge page Care Plan Goals: take vancomycin 1 tablet 4 times a day for total 7 days, avoid high-fiber diet for next few days. DC home with home PT and resumption of 02/01 care. Health Concerns: CHF, COPD, hypokalemia. take all home medication hold magnesium as directed to avoid loose stools Plan of Treatment: outpatient follow-up with primary care physician call for appointment Assessment: as above
--- NOTE | 2023-01-19 12:58 | MHC.CM.PN ---
Patient and dtr are requesting discharge today. [facility] will resume home services. BLS is booked for 6pm sisal picker @ [facility] [place].
[2023-01-19 15:04] VITALS: BP 162/67; PULSE 80; O2SAT 95
== END 2023-01-19 18:06 | disposition home health service (06) | DRG 371 ==
LOC: HO.ED 01-14 00:16 → HO.EDOVER 01-14 01:00 → HO.S3 01-14 12:17
PROVIDERS: Family Medicine; Hospitalist; Internal Medicine; Physician Assistant; Admitting Provider Student in an Organized Health Care Education/Training Program; Emergency Provider Emergency Medicine; PCP Internal Medicine; Visit Provider Internal Medicine
PROC: 0DJD8ZZ Inspection of Lower Intestinal Tract, Via Natural or Artificial Opening Endoscopic (ICD-10-PCS; CPT 45330; principal; 2023-01-16 14:30)
DX: A04.72 Enterocolitis due to Clostridium difficile, not specified as recurrent (principal); J18.9 Pneumonia, unspecified organism; I50.32 Chronic diastolic (congestive) heart failure; J44.0 Chronic obstructive pulmonary disease with (acute) lower respiratory infection; F03.918 Unspecified dementia, unspecified severity, with other behavioral disturbance; E86.0 Dehydration; I48.0 Paroxysmal atrial fibrillation; E87.6 Hypokalemia; K57.30 Diverticulosis of large intestine without perforation or abscess without bleeding; K64.8 Other hemorrhoids; E78.2 Mixed hyperlipidemia; I73.9 Peripheral vascular disease, unspecified; Z22.1 Carrier of other intestinal infectious diseases; D64.9 Anemia, unspecified; I25.10 Atherosclerotic heart disease of native coronary artery without angina pectoris; Z87.891 Personal history of nicotine dependence; Z79.51 Long term (current) use of inhaled steroids; Z79.52 Long term (current) use of systemic steroids; Z79.82 Long term (current) use of aspirin; Z79.899 Other long term (current) drug therapy
CPT/HCPCS: 36415; 71045; 71250; 74177; 80048; 80053; 81001; 82272; 82607; 82728; 82746; 82947; 83540; 83605; 83615; 83690; 83735; 83880; 84145; 84484; 85025; 85027; 85045; 86140; 87040; 87086; 87324; 87493; 87507; 88305; 89055; 93005; 94640; 97162; 99285; J0696; Q9967

== ENCOUNTER → 2023-01-13 16:03 | Outpatient (BNV) | payer OTHER, SELFPAY | PROVIDERS: Admitting Provider Student in an Organized Health Care Education/Training Program; Emergency Provider Emergency Medicine; PCP Internal Medicine; Visit Provider Internal Medicine | DX: I48.92 Unspecified atrial flutter (principal); R94.31 Abnormal electrocardiogram [ECG] [EKG] | CPT/HCPCS: 93010 ==

== ENCOUNTER → 2023-01-14 00:57 | Outpatient (BNV) | payer OTHER, SELFPAY | PROVIDERS: Admitting Provider Student in an Organized Health Care Education/Training Program; Emergency Provider Emergency Medicine; PCP Internal Medicine; Visit Provider Student in an Organized Health Care Education/Training Program | DX: K52.9 Noninfective gastroenteritis and colitis, unspecified (principal) | CPT/HCPCS: 99222; 99232; 99233; 99239; 99499 ==

== ENCOUNTER → 2023-01-14 00:57 | Outpatient (BNV) | payer OTHER, SELFPAY | PROVIDERS: Admitting Provider Student in an Organized Health Care Education/Training Program; Emergency Provider Emergency Medicine; PCP Internal Medicine; Visit Provider Internal Medicine | DX: K52.9 Noninfective gastroenteritis and colitis, unspecified (principal) | CPT/HCPCS: 45331; 99222; 99232 ==

== ENCOUNTER 2023-01-24 14:46 | Outpatient (AMB) | payer OTHER, SELFPAY ==
--- NOTE | 2023-01-24 14:57 | A.OFFVIS_ITS ---
Intake Vital Signs 01/24/23 14:58 Height 4 ft 11 in Weight 127 lb BMI 25.6 Pulse 89 Pulse Source Pulse Oximeter Pulse Oximetry (%) 94 Oxygen Delivery Method Room Air Intake Visit Reasons: copd/ed follow up [employer] Required: No Allergies carvedilol Allergy (Verified 01/24/23 14:59) Shortness of Breath sertraline [From Zoloft] Allergy (Verified 01/24/23 14:59) Shortness of Breath spironolactone Allergy (Verified 01/24/23 14:59) Shortness of Breath adhesive tape Adverse Reaction (Severe, Verified 01/24/23 14:59) skin tears mirtazapine Adverse Reaction (Severe, Verified 01/24/23 14:59) psychotic episode HPI HPI Comments History of Present Illness Details The patient is an 82 year-old woman with known history of COPD along with chronic bronchitis due apparently has been in usual state health until for the last several months where her respiratory status has dramatically worsen. The patient has had numerous admissions in a short period of time. The patient states that she started developing worsening cough usually congested in nature. She has a hard time expectorating. Suddenly she developed significant respiratory distress with the family notices that she is decompensated very quickly. At that point EMS was called the. Usually the patient is found to be hypoxic and she is brought to the hospital. She has been admitted to normal now about 4 times in a [facility] about 2 times. Her sputum was positive for Pseudomonas aeruginosa and she was treated with ceftazidime. Ultimately she is treated and then subsequently is able to recover partially in that she is sent home. Usually the cycle restarts again. She has been having hard time since she does the hospital recently. They try sending another sputum culture but it was contaminated. In the office she was very congested. We were able to get a sputum sample and also very tenacious greenish in color and also smelling of Pseudomonas consistent with likely pseudomonal lower respiratory infections and pneumonia. The patient did received Xopenex with hypertonic saline with good response. She had been on DuoNeb but I am concerned that is drying up the mucus even more. Therefore will switch over to the Xopenex instead. I did review her CT scan of the chest done at [facility]. She has numerous pulmonary nodules in addition to thickened airways and some bronchiectatic looking airways. Therefore, the patient does have chronic airway disease now worsened by the fact that she is colonized with Pseudomonas. She has had multiple admissions to the hospital and therefore failing IV and oral antibiotics. The only option right now will be to start her inhaled tobramycin. she is already performing chest physical therapy with a flutter valve. She does have significant back pain, therefore, using a percussion vest will potentially cause worsening back pain. 04/19/2022 the patient is here for hospital follow-up visit. She had a event for few weeks. After I evaluated her to ended up with worsening respiratory symptoms and admitted to [facility]. There she was treated with antibiotics and also steroids. She was able to be discharged home. However she again started having difficulties. At home to briefly to start on the inhaled SHY but not enough to warrant a benefit. While in [place] the patient did undergo a CT scan of the chest that I personally reviewed. The patient did have some areas of bronchitis and hazy opacities and some areas of scarring but overall her lung parenchyma was reassuring. She was noted to be short of breath and was found to be significantly anemic. Therefore her Eliquis and aspirin were stopped which were provided prophylactic therapy for clots from her atrial fibrillation. She was evaluated in GI in opted not to undergo colonoscopy due to high risk for respiratory issues. 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 She continues to be off the anticoagulation. She does have a hemoglobin blood work pending. She is going to have that today. Meantime she is using the inhaled tobramycin. It has been affected treating her respiratory symptoms and chest congestion. She still has a cough and sometimes is turbulent and Lopid. 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 Her cough the cord and a chest PT is even more important. She does have the nebulized therapies and also has the Acapella valve. 06/23/2022 the patient is here for pulmonary follow-up visit. The patient is feeling a lot better. She is responding well to the inhaled tobramycin. She is using it 28 days on 20 days off. Although she does develop significant coughing after using the tobramycin. She is using Xopenex prior to minimize on the bronchospasms related to the tobramycin. She also continues use her flutter valve for chest PT. She is doing well from a respiratory status. The patient still continues to be on 10 mg of prednisone. Will going to work on decreasing that some as well. Patient does not have any recent imaging studies to review. 07/26/2022 the patient is here for sick visit. She started developing worsening cough productive in nature is been seems to be getting worse in the last few days. She has been off the inhaled tobramycin until today. She did go to urgent care where she was felt to have a chronic cough and was not giving any additional therapies. She was recommended to follow-up with primary care superintendent pressure. She denies any fevers or chills. Denies any sick contacts. Although, she does feel that her symptoms started happening after getting the flu shot. On examination she does have some rhonchi on examination specially when deep breathing. I am hopeful that the inhaled tobramycin will start taking it. She has not had a chest x-ray although she did have a chest x-ray when she was in the hospital back in March of last year demonstrating no acute disease. She ever symptoms have not better we can consider getting additional imaging studies. Otherwise I am hopeful that with increasing her prednisone and starting the inhaled tobramycin and use an expectorant that she will have some improvement. If the patient has not better she is going to call the office next week. 10/03/2022 the patient is here for hospital follow-up visit. The patient went to rehab after her respiratory issues and developed severe abdominal discomfort. She was readmitted to the hospital with bowel obstruction. She did require surgery. She is healing well now. She is now home. She does continue with inhaled tobramycin. Patient unfortunately does get some wheezing and chest congestion from it. Although seems to be helping. She is off the prednisone. She had been on 5 mg of prednisone. I did recommend she go back on it unless there is any evidence of poor wound healing from her recent surgery. She the patient still has issues with dyspnoea on exertion with minimal activity and also gets tachycardic. Sometimes she wakes up from the middle the night with shortness of breath. We did do a brief walking oximetry in the patient did desaturate down to about 86% just with a few steps became tachycardic. She was then placed on 2 L of oxygen improving her pulse ox. Therefore, the patient does qualify for oxygen I did recommend that she uses 2 L with activity and also with sleep. Will set that up with a local [email or web address] company. Will continue close monitoring at this time. The patient has had issues with her inhalers. She developed severe thrush from inhaled steroids. Therefore go ahead and send her [place]ves[place] with hopeful placing her inhaled steroid with minimal risk of developing the oral candidiasis. She already tried and failed Flovent. 01/24/2023 the patient is here for a pulmonary follow-up visit. She is here with her daughter. the patient had been hospitalize the hospital. The patient has had issues with her heart in addition with her respiratory status. She was given Augmentin upon discharge. Unfortunately developed significant diarrhea and subsequently diagnosed with C diff colitis. She was placed on p.o. vancomycin. She tolerated it well and her diarrhea has improved. She is currently home now. She just completed the 28 days of inhaled tobramycin. This has been very affecting beneficial for her. Her chest congestion has dramatically improved. Her wheezing also has significantly improved. She still needs to use respiratory therapy. The patient will plan to restart the inhaled tobramycin between 4-6 weeks depending on symptom relief. Also to minimize antibiotic use. [facility] Medical History A-fib Acute encephalopathy Acute hypokalemia Acute respiratory failure with hypoxia Anemia Anemia Aspiration pneumonia Atelectasis of right lung Atrial fibrillation with RVR Atrial flutter Bronchiectasis CAD (coronary artery disease) Chronic dyspnea Congestive heart failure COPD (chronic obstructive pulmonary disease) COPD (chronic obstructive pulmonary disease) Dyspnea Encephalopathy chronic GI bleed Heart failure History of infection with vancomycin resistant Enterococcus (VRE) Paroxysmal A-fib Pseudomonal pneumonia Pseudomonas respiratory infection Pulmonary nodules Pyuria Surgical History H/O umbilical hernia repair (09/18/22) History of cholecystectomy History of hip replacement History of knee replacement History of quadruple bypass Family History Other No family history of cancer Social History Household Members: Family Housing: House Are you a primary health careers instructor to a significant other at home: No Do you presently have visiting nurse or other home services: No Alcohol intake: never Patient Tobacco Use Status: Former Tobacco user Quit Date: 2012 Tobacco use type: Cigarette Advance Directives Date on File: 08/24/22 service: No Current occupational status: retired Review of Systems Const Reports fatigue Eyes Reports change in vision ENT Reports hoarseness, Reports nasal congestion and Reports nasal discharge Card Denies chest pain, Reports dyspnea and Reports dyspnea on exertion Resp Denies change in phlegm color, Reports chest congestion, Reports cough, Denies hemoptysis, Denies excessive phlegm production, Reports dyspnea, Reports dyspnea on exertion and Reports wheezing GI Reports no additional complaints Musc Reports abnormal gait, Reports back pain, Reports arthralgias, Reports joint swelling and Reports muscle weakness Skin/Breast Reports rash and Reports unusual bruising Neuro Reports abnormal gait Psych Reports panic attacks Endo Reports fatigue Samir/Lymph Reports easy bruising and Denies lymphadenopathy Aller/Immun Reports wheezing Physical Exam Vital Signs: Last Vital Signs Pulse 89 01/24/23 14:58 Pulse Ox 94 01/24/23 14:58 Oxygen Delivery Method Room Air 01/24/23 14:58 BMI result Body Mass Index 25.6 Const General: comfortable and alert HEENT Head: Yes normal to inspection Neck Neck: Yes supple Chest Chest palpation & inspection: normal inspection of the chest Resp Effort & Inspection: no cough Auscultation: no crackles, no rhonchi, no wheezes, breath sounds present and diminished lung sounds Cardio Rate: regular rate Rhythm: regular rhythm Heart sounds: S1 normal heart sound present, S2 normal heart sound present and Murmur heart sound present GI Palpation (GI): Soft to palpation Auscultation: normal bowel sounds Skin General skin exam: ecchymosis Extrem General: No clubbing and No cyanosis Assessment & Plan Assessment & Plan (1) COPD (chronic obstructive pulmonary disease): Code(s): J44.9 - Chronic obstructive pulmonary disease, unspecified (2) Pseudomonal pneumonia: Code(s): J15.1 - Pneumonia due to Pseudomonas (3) Pulmonary nodules: Code(s): R91.8 - Other nonspecific abnormal finding of lung field (4) Dyspnea: Code(s): R06.00 - Dyspnea, unspecified Qualifiers: Dyspnea type: shortness of breath Qualified Code(s): R06.02 - Shortness of breath Plan continue inhaled Shy 28 days on, 28 days off stopped Prednisone 5mg daily continue Anoro Xopenex BID hypertonic saline 3% for CPT Continue acapella valve Oxygen 2L with activity and with sleep F/U 3-4 months Medications: Changed From umeclidinium-vilanterol 62.5-25 mcg/actuation (Anoro Ellipta) do not interchange, daughter will bring in 1 ea inhalation DAILY To umeclidinium-vilanterol 62.5-25 mcg/actuation (Anoro Ellipta) do not interchange, daughter will bring in 1 ea inhalation DAILY 30 days 60 ea 11RF Discontinued torsemide 20 mg PO DAILY 30 tabs 0RF magnesium oxide 400 mg PO BIDPC 60 tabs 0RF potassium chloride ER 20 mEq PO DAILY 30 tabs 0RF levalbuterol HCl 1.25 mg (3 mL) inhalation QID 30 days 360 mL 11RF J44.9 - Chronic obstructive pulmonary disease, unspecified Coding Level of Care Code Est Pt Level 4 (28372) Diagnoses COPD (chronic obstructive pulmonary disease) J44.9 Pseudomonal pneumonia J15.1 Pulmonary nodules R91.8 Dyspnea R06.02 Dyspnea type: shortness of breath Time Spent (min) 18
[2023-01-24 14:58] VITALS: PULSE 89; O2SAT 94; BMI 25.6
== END 2023-01-24 15:27 | disposition home or self-care (01) ==
PROVIDERS: PCP Internal Medicine; Visit Provider Hospitalist
DX: J44.9 Chronic obstructive pulmonary disease, unspecified (principal); J15.1 Pneumonia due to Pseudomonas; R91.8 Other nonspecific abnormal finding of lung field; R06.02 Shortness of breath
CPT/HCPCS: 99214

== ENCOUNTER → 2023-01-24 14:46 | Outpatient (BNVA) | payer OTHER, SELFPAY | PROVIDERS: PCP Internal Medicine; Visit Provider Hospitalist | DX: J44.0 Chronic obstructive pulmonary disease with (acute) lower respiratory infection (principal); J15.1 Pneumonia due to Pseudomonas; R91.8 Other nonspecific abnormal finding of lung field; R06.02 Shortness of breath | CPT/HCPCS: 99212 ==

== ENCOUNTER 2023-02-09 12:38 | Outpatient (REF) | payer OTHER, SELFPAY ==
[2023-02-09 12:41] LABS: MANUAL DIFF FLAG NO
[2023-02-09 12:47] LABS: Basophils Absolute Auto 0.1 X10*3/uL (0.0-0.2); Basophils Percent Auto 0.7 % (0-2); Eosinophils Absolute Auto 0.6 X10*3/uL (0.0-0.4); Eosinophils Percent Auto 6.9 % (0-4); Hematocrit 32.3 % (37.0-47.0); Hemoglobin 10.4 g/dl (12.0-16.0); Imm Gran Abs Auto 0.04 X10*3/uL (0.00-0.03); Imm Gran Pct Auto 0.4 % (0.0-0.4); Lymphocytes Absolute Auto 1.3 X10*3/uL (1.2-4.9); Lymphocytes Percent Auto 13.8 % (20-40); Mean Corpuscular HGB Conc 32.2 g/dl (31.0-35.0); Mean Corpuscular Hemoglobin 30.7 pg (27.0-33.0); Mean Corpuscular Volume 95.3 fL (80.0-98.0); Mean Platelet Volume 11.9 fL (9.4-12.3); Monocytes Absolute Auto 0.5 X10*3/uL (0.1-1.2); Monocytes Percent Auto 5.7 % (2-11); Neutrophils Absolute Auto 6.6 x10*3/uL (2.0-8.3); Neutrophils Percent Auto 72.5 % (45-73); Platelet Count 219 X10*3/uL (160-400); Red Blood Count 3.39 X10*6/uL (4.20-5.50); Red Cell Distribution Width 14.2 % (11.0-16.0); White Blood Count 9.1 X10*3/uL (4.8-10.8)
[2023-02-09 13:45] LABS: Anion Gap 12 (12-20); Blood Urea Nitrogen 21 mg/dL (9-16); Calcium 9.2 mg/dL (8.4-10.2); Carbon Dioxide 35 mmol/L (22-29); Chloride 94 mmol/L (96-108); Estimated Glomerular Filt Rate 45; Glucose Random 155 mg/dL (60-115); Potassium 2.5 mmol/L (3.3-5.1); Sodium 138 mmol/L (135-145)
== END 2023-02-09 12:39 | disposition home or self-care (01) ==
LOC: HO.HVNA 12:38
PROVIDERS: Visit Provider Internal Medicine
DX: E87.6 Hypokalemia (principal); I50.23 Acute on chronic systolic (congestive) heart failure
CPT/HCPCS: 36415; 80048; 85025

== ENCOUNTER 2023-02-24 14:32 | Outpatient (REF) | payer OTHER, SELFPAY ==
[2023-02-24 16:27] LABS: Alanine Aminotransferase 27 U/L (0-31); Albumin Level 3.1 g/dL (3.5-5.0); Alkaline Phosphatase 100 U/L (39-117); Anion Gap 14 (12-20); Aspartate Amino Transferase 38 U/L (5-31); Bilirubin Total 0.9 mg/dL (0.0-1.0); Blood Urea Nitrogen 19 mg/dL (9-16); Carbon Dioxide 31 mmol/L (22-29); Chloride 100 mmol/L (96-108); Estimated Glomerular Filt Rate 47; Ferritin 218 ng/mL (10-250); Glucose Random 118 mg/dL (60-115); Magnesium 1.6 mg/dL (1.6-2.6); Potassium 3.5 mmol/L (3.3-5.1); Sodium 141 mmol/L (135-145); Total Protein 6.5 g/dL (6.5-8.0)
[2023-02-24 16:43] LABS: Folate 16.8 ng/mL (> or = 4.0); Vitamin B12 1788 pg/mL (200-900)
== END 2023-02-24 14:33 | disposition home or self-care (01) ==
LOC: HO.HVNA 14:32
PROVIDERS: Visit Provider Internal Medicine
DX: K52.9 Noninfective gastroenteritis and colitis, unspecified (principal); D64.89 Other specified anemias; E78.6 Lipoprotein deficiency; D64.9 Anemia, unspecified; F02.80 Dementia in other diseases classified elsewhere, unspecified severity, without behavioral disturbance, psychotic disturbance, mood disturbance, and anxiety; I10 Essential (primary) hypertension
CPT/HCPCS: 36415; 80053; 82607; 82728; 82746; 83735

== ENCOUNTER 2023-02-25 11:28 | Outpatient (REF) | payer OTHER, SELFPAY ==
[2023-02-25 11:42] LABS: Appearance Urine Turbid; Color Urine Dark Yellow; Glucose Urine UA Negative (Negative); Leukocyte Esterase Urine Large (3+) (Negative); Nitrite Urine Negative (Negative); PH 5.5 (5.0-9.0); UMIC TRIGGER UA YES; Urine Blood Moderate (2+) (Negative); Urine Ketones Trace mg/dL (Negative); Urine Protein 300 (3+) mg/dL (Neg-Trace)
[2023-02-25 12:04] LABS: Bacteria Urine 4+ (None Seen); RBC Urine >20 /HPF (0-2); Squamous Epithelial Cell Urine >20 /HPF (0-2); WBC Urine >50 /HPF (0-5)
== END 2023-02-25 11:29 | disposition home or self-care (01) ==
LOC: HO.HVNA 11:28
PROVIDERS: Visit Provider Internal Medicine
DX: R30.0 Dysuria (principal)
CPT/HCPCS: 81001; 87086; 87088; 87186

== ENCOUNTER 2023-03-25 16:02 | Inpatient (IN) | payer OTHER, SELFPAY ==
--- NOTE | ~2023-03-25 | CT_ITS ---
EXAMINATION: CT HEAD WITHOUT CONTRAST CLINICAL INFORMATION: Altered mental status COMPARISON: CT head on 11/02/2022. TECHNIQUE: Contiguous axial imaging was performed from the skull base to vertex without intravenous administration of contrast. This CT examination was performed using dose optimization techniques as appropriate, variously including the following: *Automated exposure control *Adjustment of mA and/or kV according to patient size (this includes techniques or standardized protocols for targeted exams where dose is matched to indication/reason for exam; i.e. extremities or head) *Use of iterative reconstruction technique DLP: 586.49 mGy-cm FINDINGS: No acute intracranial hemorrhage or infarct. The mcdonald-white matter differentiation is preserved. Diffuse widening of the sulci with associated ex vacuo dilation of the ventricles compatible with global cerebral atrophy. No midline shift or hydrocephalus. No acute extra-axial fluid collections. The osseous structures are unremarkable. Sequelae of bilateral lens replacement. Otherwise, no orbital pathology. The paranasal sinuses and mastoid air cells are clear. Atherosclerotic calcifications of the bilateral carotid siphons and visualized intracranial vertebral arteries. CT/CT head/brain wo IV con IMPRESSION: No acute intracranial hemorrhage or infarct.
--- NOTE | ~2023-03-25 | XR_ITS ---
EXAMINATION: XR CHEST CLINICAL INFORMATION: Weakness COMPARISON: 12/27/2022 TECHNIQUE: Frontal view of the chest was obtained. FINDINGS: Left basilar atelectasis/infiltrate. Mild right mid to lower lung opacities. No obvious failure. The cardiac silhouette is comparable. The hilar regions are comparable XR/XR chest 1V IMPRESSION: Bilateral basilar opacities millicuries of atelectasis or infiltrate. Follow-up recommended
--- NOTE | ~2023-03-25 | CT_ITS ---
EXAMINATION: CT ABDOMEN AND PELVIS WITHOUT CONTRAST CLINICAL INFORMATION: Abdominal pain and distention. COMPARISON: CT scans dating between 01/13/2023 and 08/23/2022. TECHNIQUE: Multidetector volumetric imaging was performed from the superior aspect of the liver through the pubic symphysis. Sagittal and coronal reformatted images were obtained on the technologist's workstation. This CT examination was performed using dose optimization techniques as appropriate, variously including the following: *Automated exposure control *Adjustment of mA and/or kV according to patient size (this includes techniques or standardized protocols for targeted exams where dose is matched to indication/reason for exam; i.e. extremities or head) *Use of iterative reconstruction technique DLP: 462 mGy-cm FINDINGS: LUNG BASES: Bilateral lower lobe interstitial and alveolar infiltrates, right worse than left. No effusion. Mild cardiomegaly. No pericardial effusion. LIVER, GALLBLADDER, AND BILIARY TREE: The liver appears unremarkable in size, shape, and attenuation. No focal hepatic lesion or biliary ductal dilatation is appreciated. Status post cholecystectomy. PANCREAS: Unremarkable SPLEEN: Unremarkable ADRENAL GLANDS: Unremarkable KIDNEYS AND URETERS: The kidneys appear unremarkable in size, shape, and attenuation. No hydronephrosis, hydroureter, or calculi seen. BLADDER: Unremarkable GASTROINTESTINAL TRACT: 2.5 cm diverticulum involving the second portion of the duodenum without evidence of associated inflammatory change. Sigmoid diverticulosis without evidence of diverticulitis. Normal-appearing distal ileum and vermiform appendix. ABDOMINAL WALL: No significant hernia is appreciated. LYMPH NODES: No evidence of adenopathy by size criteria. VASCULAR: Atherosclerosis of the aorta, iliac arteries, and visceral artery origins. PELVIC VISCERA: Unremarkable OSSEOUS STRUCTURES: Decreased bone mineral density. Severe multilevel disc degenerative change. Lower lumbar facet degenerative change. Similar appearance of compression deformities at T12, L4, and L5 compared with 01/13/2023. Old, healed, bilateral rib fractures. Old, healed fractures of the right superior and inferior pubic rami. Status post median sternotomy. 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 CT/CT abdomen pelvis wo IV con IMPRESSION: Bilateral lower lobe interstitial and alveolar infiltrates, right worse than left. No acute finding within the abdomen or pelvis.
--- NOTE | ~2023-03-25 | XR_ITS ---
EXAMINATION: XR ANKLE, LEFT CLINICAL INFORMATION: Left dorsal ankle pain COMPARISON: Left tib-fib and left ankle 11/30/2018 TECHNIQUE: AP, lateral, and mortise views of the left ankle. FINDINGS: Some generalized osteopenia. No fractures or dislocations. No ankle effusion is seen. No unusual calcifications. Mild degenerative changes seen in the midfoot unchanged from 11/30/2018. XR/XR ankle LT min 3V IMPRESSION: No evidence of an acute osseous injury.
--- NOTE | 2023-03-25 16:14 | ECG_ITS ---
Test Reason : WEAKNESS Blood Pressure : / mmHG Vent. Rate : 096 BPM Atrial Rate : 234 BPM P-R Int : 000 ms QRS Dur : 088 ms QT Int : 370 ms P-R-T Axes : 000 046 184 degrees QTc Int : 467 ms Atrial flutter with variable A-V block Anterior infarct (cited on or before 23-DEC-2022) Nonspecific T wave abnormality Inferior leads Lateral leads Abnormal ECG When compared with ECG of 13-JAN-2023 16:17, Questionable change in QRS axis QT has lengthened Heart rate has increased T wave inversion now evident in Inferior leads Lateral leads Referred By: Maricel Harrison Electronically Signed By:CORNELL DIXON MD
--- NOTE | 2023-03-25 16:24 | ED_ITS ---
HPI - Weakness General Stated complaint: INCREASED WEAKNESS Source: patient Mode of arrival: EMS Limitations: other (poor historian ) History of Present Illness HPI Narrative: 82 yo female with PMH of acute on chronic resp failure PRN o2 use, metabolic encephalopathy, pneumonia, CHF 35-40%, CANDIDO, E. Coli, UTI, bronchiectasis, PAF not on anticoagulation, CAD, dementia, HLD just admitted in January for colitis - completed 10 day course of PO vancomycin (hx of c diff colonization). Comes in with c/o not feeling well and being more confused. Family called EMS as she was more agitated than usual today. The patinet cannot tell me why she is here and when I ask her questions she says Yak Yaroberta Zavala . She tells me her abdomen hurts. Complaint: generalized weakness Onset (ago): unknown Duration: constant Location: generalized Migration: none Severity: moderate Quality: aching and dull Relieving factors: none Exacerbating factors: movement Context: history of similar Associated symptoms: loss of appetite and myalgias Related Data Home Medications Medication Instructions Recorded Confirmed fluticasone propionate 50 1 spray intranasal BID 03/22/22 01/13/23 mcg/actuation nasal spray,suspension montelukast 10 mg tablet 10 mg PO BEDTIME 03/22/22 01/13/23 nebulizers 03/22/22 07/04/22 oxybutynin chloride 5 mg 5 mg PO DAILY 03/22/22 01/13/23 tablet,extended release 24 hr tramadol 50 mg tablet 25 mg PO DAILY 03/22/22 01/13/23 albuterol sulfate 90 mcg/actuation 2 puff inhalation Q4-6H PRN 11/02/22 01/13/23 aerosol inhaler (Ventolin HFA) Shortness Of Breath Or Wheezing aspirin 81 mg tablet,delayed 81 mg PO DAILY 11/02/22 01/13/23 release isosorbide mononitrate 30 mg 30 mg PO DAILY 11/02/22 01/13/23 tablet,extended release 24 hr levalbuterol HCl 1.25 mg/3 mL 1.25 mg inhalation TID 11/02/22 01/13/23 solution for nebulization pantoprazole 40 mg tablet,delayed 40 mg PO BID 11/02/22 01/13/23 release thiamine HCl (vitamin B1) 100 mg 100 mg PO BID 11/02/22 01/13/23 tablet risperidone 0.25 mg tablet 0.25 mg PO DAILY 12/16/22 01/13/23 acetaminophen 325 mg tablet 650 mg PO Q6H PRN Pain 01/13/23 01/13/23 magnesium oxide 400 mg (241.3 mg 400 mg PO BEDTIME 01/13/23 01/13/23 magnesium) tablet multivitamin 1 tab PO DAILY 01/13/23 01/13/23 potassium 99 mg tablet 99 mg PO DAILY 01/13/23 01/13/23 potassium chloride 20 mEq 40 meq PO DAILY 01/13/23 01/13/23 tablet,extended release quetiapine 50 mg tablet 50 mg PO BEDTIME 01/13/23 01/13/23 torsemide 20 mg tablet 20 mg PO DAILY 01/13/23 01/13/23 Previous Rx's Medication Instructions Recorded ferrous sulfate 325 mg (65 mg 325 mg PO DAILY 09/28/22 iron) tablet prednisone 5 mg tablet 5 mg PO DAILY 30 days #30 tabs 10/03/22 inhalational spacing device #1 ea 10/07/22 (Aerochamber MV spacer) atorvastatin 40 mg tablet (Lipitor) 40 mg PO BEDTIME #30 tabs 10/10/22 metoprolol tartrate 25 mg tablet 25 mg PO BID 30 days #60 tabs 11/11/22 loperamide 2 mg capsule 2 mg PO Q4H PRN diarrhea #20 caps 12/21/22 nystatin 100,000 unit/gram topical 1 appl topical BID #60 grams 12/21/22 powder vancomycin 125 mg capsule 125 mg PO QID #28 caps 01/17/23 (Vancocin) umeclidinium 62.5 mcg-vilanterol 1 ea inhalation DAILY 30 days #60 01/24/23 25 mcg/actuation powdr for ea inhalation (Anoro Ellipta) ferrous sulfate 325 mg (65 mg 325 mg PO DAILY #90 tabs 03/06/23 iron) tablet Allergies Allergy/AdvReac Type Severity Reaction Status Date / Time carvedilol Allergy Shortness Verified 01/24/23 14:59 of Breath sertraline [From Zoloft] Allergy Shortness Verified 01/24/23 14:59 of Breath spironolactone Allergy Shortness Verified 01/24/23 14:59 of Breath adhesive tape AdvReac Severe skin tears Verified 01/24/23 14:59 mirtazapine AdvReac Severe psychotic Verified 01/24/23 14:59 episode Review of Systems Review of Systems: ROS unable to be obtained due to altered mental status [facility] Past Medical History Source: old records reviewed Medical History Pneumonia Atrial flutter Pyuria Atelectasis of right lung Encephalopathy chronic History of infection with vancomycin resistant Enterococcus (VRE) Congestive heart failure Heart failure Dyspnea Paroxysmal A-fib Aspiration pneumonia COPD (chronic obstructive pulmonary disease) A-fib Acute encephalopathy Anemia Pseudomonas respiratory infection CAD (coronary artery disease) Acute respiratory failure with hypoxia Chronic dyspnea Acute hypokalemia Atrial fibrillation with RVR Anemia GI bleed Pulmonary nodules COPD (chronic obstructive pulmonary disease) Bronchiectasis Pseudomonal pneumonia Surgical History H/O umbilical hernia repair (09/18/22) History of quadruple bypass History of hip replacement History of knee replacement History of cholecystectomy Family History Family History Other No family history of cancer Social History Social History Household Members: Family Housing: House Are you a primary wound care center consultant to a significant other at home: No Do you presently have visiting nurse or other home services: No Alcohol intake: never Patient Tobacco Use Status: Former Tobacco user Quit Date: 2012 Tobacco use type: Cigarette Advance Directives Date on File: 08/24/22 service: No Current occupational status: retired Physical Exam Vital Signs: Appearance: Alert. Oriented to self. No acute distress. Eyes: Pupils equal, round and reactive to light. ENT: Pharynx normal. Neck: Normal inspection. Neck supple. CVS: Normal heart rate and rhythm. Pulses normal. Respiratory: No respiratory distress. Breath sounds very coarse at bases and she has a congested cough Abdomen: Soft and mild distention but no ttp or rebound Skin: Skin warm and dry. Normal skin color. Normal skin turgor. Extremities: trace pitting lower ext edema Neuro: Oriented to self No motor deficit. No sensory deficit. Medical Decision Making Medical Decision Making MDM Narrative: 82 yo female with PMH of acute on chronic resp failure PRN o2 use, metabolic encephalopathy, pneumonia, CHF 35-40%, CANDIDO, E. Coli, UTI, bronchiectasis, PAF not on anticoagulation, CAD, dementia, HLD here with agitation, coarse lung sounds, congested cough and fever - will need labs, EKG, lactic acid, blood cultures, I am ordered CT head and CT scan of the abdomen along with UA and CXR - suspect UTI vs pneumonia - empiric ceftriaxone will add on levofloxacin. I do not see a hx of MRSA at this time. Planned admit given change in mental status Differential Diagnosis Differential Diagnoses: The differential diagnosis associated with the presentation includes pneumonia, UTI, SBO Admission/Observation Consideration of admission/observation: Escalation of care including admission/observation considered admit for metabolic encephalopathy and pneumonia Consult Healthcare Provider Management of the patient was discussed with: Hospitalist (agrees to admit) Lab Data MDM Lab Attestation statement: I reviewed the patient's lab results. Independent Interpretation I performed an independent interpretation of an: EKG, Plain X-Ray and CT Scan (bilateral pneumonia) Interpretation: Rate: 96 Rhythm: aflutter [place]: normal Normal QRS complex. ST T wave : no [place], inverted t waves II, III, aVF, V5-V6 qTC: prolonged prior studies: no acute ischemia The study has been interpreted contemporaneously by me. . Radiology Impression Discussion of test interpretation with radiology: I have reviewed the radiologist's reading. Independent Historian Clinical information obtained from an independent historian. History obtained from or confirmed by: EMS External Record Review External record reviewed: Inpatient record Discharge Plan Discharge Clinical Impression: Acidosis, lactic, Febrile illness, acute Pneumonia Qualifiers: Pneumonia type: due to unspecified organism Laterality: bilateral Lung location: lower lobe of lung Qualified Code(s): J18.9 - Pneumonia, unspecified organism Leukocytosis Qualifiers: Leukocytosis type: unspecified Qualified Code(s): D72.829 - Elevated white blood cell count, unspecified Patient Disposition: Admitted As Inpatient Prescriptions: No Action ferrous sulfate 325 mg (65 mg iron) tablet 325 mg PO DAILY 0RF (DME) Aerochamber MV Spacer See Rx Instructions .ROUTE .MEDSUPPLY Qty: 1 0RF Rx Instructions: As directed ferrous sulfate 325 mg (65 mg iron) Tablet 325 mg PO DAILY Qty: 90 7RF isosorbide mononitrate 30 mg tablet extended release 24 hr 30 mg PO DAILY thiamine HCl (vitamin B1) 100 mg tablet 100 mg PO BID aspirin 81 mg tablet,delayed release (DR/EC) 81 mg PO DAILY pantoprazole 40 mg tablet,delayed release (DR/EC) 40 mg PO BID albuterol sulfate [Ventolin HFA] 90 mcg/actuation HFA aerosol inhaler 2 puff INHALATION Q4-6H PRN (Reason: Shortness Of Breath Or Wheezing) levalbuterol HCl 1.25 mg/3 mL solution for nebulization 1.25 mg inhalation TID metoprolol tartrate 25 mg Tablet 25 mg PO BID 30 Days Qty: 60 0RF Protocol: Hold for SBP/HR < HOLD for SBP < : 90 HOLD for HR < : 60 atorvastatin [Lipitor] 40 mg tablet 40 mg PO BEDTIME Qty: 30 0RF risperidone 0.25 mg tablet 0.25 mg PO DAILY nystatin 100,000 unit/gram Powder 1 appl topical BID Qty: 60 2RF Protocol: Apply to: Apply to: Abdominal Fold loperamide 2 mg Capsule 2 mg PO Q4H PRN (Reason: diarrhea) Qty: 20 0RF quetiapine 50 mg tablet 50 mg PO BEDTIME torsemide 20 mg tablet 20 mg PO DAILY multivitamin Tablet 1 tab PO DAILY acetaminophen 325 mg Tablet 650 mg PO Q6H PRN (Reason: Pain) potassium 99 mg Tablet 99 mg PO DAILY magnesium oxide 400 mg (241.3 mg magnesium) tablet 400 mg PO BEDTIME Hold Instructions: Resume on 01/23/23. potassium chloride 20 mEq tablet extended release 40 meq PO DAILY vancomycin [Vancocin] 125 mg capsule 125 mg PO QID Qty: 28 0RF fluticasone propionate 50 mcg/actuation spray,suspension 1 spray intranasal BID Rx Instructions: 1 spray into each nostril montelukast 10 mg tablet 10 mg PO BEDTIME oxybutynin chloride 5 mg tablet extended release 24hr 5 mg PO DAILY tramadol 50 mg tablet 25 mg PO DAILY (DME) nebulizers Kit See Rx Instructions .ROUTE Rx Instructions: As directed Anoro Ellipta 62.5-25 mcg/actuation blister with device 1 ea inhalation DAILY 30 Days Qty: 60 11RF Rx Instructions: do not interchange, daughter will bring in prednisone 5 mg tablet 5 mg PO DAILY 30 Days Qty: 30 4RF
[2023-03-25 16:29] VITALS: BP 101/41; PULSE 95; RESP 22; TEMP 39.3; O2SAT 92; BMI 28.3
[2023-03-25 16:54] LABS: Basophils Absolute Auto 0.1 X10*3/uL (0.0-0.2); Basophils Percent Auto 0.2 % (0-2); Eosinophils Percent Auto 0.1 % (0-4); Hematocrit 35.1 % (37.0-47.0); Hemoglobin 11.5 g/dl (12.0-16.0); Imm Gran Abs Auto 0.13 X10*3/uL (0.00-0.03); Imm Gran Pct Auto 0.6 % (0.0-0.4); Lymphocytes Percent Auto 4.9 % (20-40); MANUAL DIFF FLAG SCAN; Mean Corpuscular HGB Conc 32.8 g/dl (31.0-35.0); Mean Corpuscular Hemoglobin 30.1 pg (27.0-33.0); Mean Corpuscular Volume 91.9 fL (80.0-98.0); Mean Platelet Volume 11.2 fL (9.4-12.3); Monocytes Absolute Auto 0.8 X10*3/uL (0.1-1.2); Monocytes Percent Auto 3.6 % (2-11); Neutrophils Absolute Auto 19.1 x10*3/uL (2.0-8.3); Neutrophils Percent Auto 90.6 % (45-73); Platelet Count 196 X10*3/uL (160-400); Red Blood Count 3.82 X10*6/uL (4.20-5.50); Red Cell Distribution Width 14.6 % (11.0-16.0); SCAN SMEAR FLAG 1; White Blood Count 21.1 X10*3/uL (4.8-10.8)
[2023-03-25 16:54] LABS: Venous Blood Gas Refer to POC result
[2023-03-25 16:55] LABS: VBG Base Excess 10.7 mmol/L; VBG HCO3 35 mmol/L (22-26); VBG pCO2 47 mmHg; VBG pH 7.48 (7.32-7.43); VBG pO2 41 mmHg
[2023-03-25 17:01] LABS: Lactic Acid 2.4 mmol/L (0.5-2.0)
[2023-03-25 17:02] LABS: INTERNATIONAL NORM RATIO 1.2 (0.9-1.1); Prothrombin Time 14.9 SEC (11.1-13.3)
[2023-03-25 17:04] LABS: Ammonia 21 umol/L (13-55)
[2023-03-25 17:08] LABS: COVID-19 Test Negative (Negative); IDNOW Serial# 08D9AD1C
[2023-03-25 17:10] LABS: B Type Natriuretic Peptide 134 pg/mL (<100)
[2023-03-25 17:11] LABS: Troponin-I High Sensitivity 28.5 ng/L (<3.5-17.0)
[2023-03-25 17:13] LABS: SLIDE REVIEW VERIFIED
[2023-03-25 17:14] LABS: Alanine Aminotransferase 20 U/L (0-31); Albumin Level 3.5 g/dL (3.5-5.0); Alkaline Phosphatase 92 U/L (39-117); Anion Gap 18 (12-20); Aspartate Amino Transferase 25 U/L (5-31); Bilirubin Direct 0.7 mg/dL (0.0-0.5); Bilirubin Total 1.6 mg/dL (0.0-1.0); Blood Urea Nitrogen 23 mg/dL (9-16); Calcium 9.4 mg/dL (8.4-10.2); Carbon Dioxide 26 mmol/L (22-29); Chloride 98 mmol/L (96-108); Creatinine Clr Calc Pharmacy 27.6; Estimated Glomerular Filt Rate 40; Glucose Random 182 mg/dL (60-115); Lipase 12 U/L (8-78); Magnesium 1.5 mg/dL (1.6-2.6); Potassium 3.3 mmol/L (3.3-5.1); Sodium 139 mmol/L (135-145); Total Protein 7.3 g/dL (6.5-8.0)
[2023-03-25 17:26] LABS: TSH reflex Free T4 0.37 uIU/mL (0.32-4.0)
[2023-03-25] MEDS: cefTRIAXone sodium 1 GM in 0.9 % Sodium Chloride 50 ML IV (17:39)
[2023-03-25] MEDS: Acetaminophen 325 MG TABLET 650 MG PO (17:39)
[2023-03-25] MEDS: 0.9 % Sodium Chloride 500 ML IV (17:47)
--- NOTE | 2023-03-25 17:50 | PC.NURSE ---
son-in-law [facility] [phone]
[2023-03-25 18:09] LABS: Procalcitonin 0.33 ng/mL
[2023-03-25 18:31] VITALS: BP 110/57; PULSE 90; RESP 30; TEMP 37.1; O2SAT 91
[2023-03-25] MEDS: levoFLOXacin/D5W 750 MG/150 ML PIGGYBACK 100 MG IV (18:35)
[2023-03-25 18:45] LABS: Reflex Lactate? Lactic Acid Added
--- NOTE | 2023-03-25 19:25 | PHA.MEDREC ---
Pharmacy Consult ? Medication Reconciliation Pharmacy has completed the medication reconciliation. spoke with patients daughter over the phone. She explained that the patient does not respond well to duoneb and that the xopenex works best. She mentioned that the patient cannot have steroid inhalers because she gets oral thrush. She will bring in Anoro tomorrow for patient. She reported holding the risperidone d/t patient being lethargic over past couple days. She mentioned that the patient has to take her medications with pudding. She reports that the patient did not take her PM medications today (quetiapine, aspirin, pantoprazole, atorvastatin, and montelukast).
--- NOTE | 2023-03-25 19:30 | P.HPHOSP_ITS ---
History of Present Illness Date of Service: 03/25/23 Attending physician on admission: Caridad Rodriguez Chief Complaint: confusion, fever 82-year-old female with pertinent history of dementia, COPD with chronic hypoxemic respiratory failure with supplemental O2 use as needed, CAD, paroxysmal atrial fibrillation not on anticoagulation, history of pseudomonal pneumonia, chronic systolic congestive heart failure, VRE UTI, mixed hyperlipidemia was sent to the emergency department for evaluation of altered mentation per her family and reports of not feeling well. The family states she has been more agitated than usual. She is unable to provide much history but denies any complaints currently. On arrival, patient febrile to 102.7 with heart rate 95, tachypneic to 30. No hypoxia. On admission following Tylenol administration, fever resolved with temp 98.8 degrees. There is a leukocytosis of 21.1%. Renal function baseline, electrolyte levels normal. Initial lactic acid 2.4, repeat pending. Initial troponin 28.5, BNP 134. Procalcitonin 0.33. Negative for COVID-19. Head CT negative for any acute intracranial abnormality. CT abdomen/pelvis shows bilateral lower lobe interstitial and alveolar infiltrates, right worse than left but no acute intra-abdominal findings. Chest x-ray again shows bilateral basilar opacities. In the ED, given 750 mg Levaquin, Tylenol, 1 g IV Rocephin, and 500 mL IVF. Review of Systems 2 Review of Systems: Yes Unobtainable due to mental status [facility] Medical History Pneumonia Atrial flutter Pyuria Atelectasis of right lung Encephalopathy chronic History of infection with vancomycin resistant Enterococcus (VRE) Congestive heart failure Heart failure Dyspnea Paroxysmal A-fib Aspiration pneumonia COPD (chronic obstructive pulmonary disease) A-fib Acute encephalopathy Anemia Pseudomonas respiratory infection CAD (coronary artery disease) Acute respiratory failure with hypoxia Chronic dyspnea Acute hypokalemia Atrial fibrillation with RVR Anemia GI bleed Pulmonary nodules COPD (chronic obstructive pulmonary disease) Bronchiectasis Pseudomonal pneumonia Family History Other No family history of cancer Surgical History H/O umbilical hernia repair (09/18/22) History of quadruple bypass History of hip replacement History of knee replacement History of cholecystectomy Social History Household Members: Family Housing: House Are you a primary child care aide to a significant other at home: No Do you presently have visiting nurse or other home services: No Alcohol intake: never Patient Tobacco Use Status: Former Tobacco user Quit Date: 2012 Tobacco use type: Cigarette Advance Directives: Yes Advance Directives on File: Yes Advance Directives Date on File: 08/24/22 service: No Current occupational status: retired Meds Allergies Allergy/AdvReac Type Severity Reaction Status Date / Time carvedilol Allergy Shortness Verified 01/24/23 14:59 of Breath sertraline [From Zoloft] Allergy Shortness Verified 01/24/23 14:59 of Breath spironolactone Allergy Shortness Verified 01/24/23 14:59 of Breath adhesive tape AdvReac Severe skin tears Verified 01/24/23 14:59 mirtazapine AdvReac Severe psychotic Verified 01/24/23 14:59 episode Active Medications: Current Medications Acetaminophen (Acetaminophen 325 Mg Tablet) 650 mg PO Q6H PRN PRN Reason: Pain, Mild (Pain Scale 1-3) Docusate Sodium (Docusate Sodium 100 Mg Capsule) 100 mg PO DAILY PRN PRN Reason: Constipation Enoxaparin Sodium (Enoxaparin Sodium 30 Mg/0.3 Ml Syringe) 30 mg SUBCUT Q24H ANIBAL Guaifenesin (Guaifenesin 200 Mg/10 Ml 10 Ml Liquid) 10 ml PO Q4H PRN PRN Reason: Cough Ampicillin Sodium/Sulbactam (Sodium 3 gm/ Sodium Chloride) 100 mls @ 200 mls/hr IV Q6H ANIBAL Ondansetron HCl (Ondansetron Hcl 4 Mg/2 Ml Vial) 4 mg IVPUSH Q8H PRN PRN Reason: Nausea and Vomiting Sodium Chloride (0.9 % Sodium Chloride Flush 3 Ml Syringe) 3 ml IVFLUSH QSHIFT ANIBAL Home Medications Medication Instructions Recorded Confirmed Last Taken Type fluticasone propionate 50 1 spray intranasal BID 03/22/22 03/25/23 03/25/23 History mcg/actuation nasal spray,suspension montelukast 10 mg tablet 10 mg PO BEDTIME 03/22/22 03/25/23 01/12/23 History nebulizers 03/22/22 07/04/22 Unknown History albuterol sulfate 90 mcg/actuation 2 puff inhalation Q4-6H PRN 11/02/22 03/25/23 03/25/23 History aerosol inhaler (Ventolin HFA) Shortness Of Breath Or Wheezing aspirin 81 mg tablet,delayed 81 mg PO DAILY 11/02/22 03/25/23 01/13/23 History release isosorbide mononitrate 30 mg 30 mg PO DAILY 11/02/22 03/25/23 03/25/23 History tablet,extended release 24 hr levalbuterol HCl 1.25 mg/3 mL 1.25 mg inhalation TID 11/02/22 03/25/23 03/25/23 History solution for nebulization pantoprazole 40 mg tablet,delayed 40 mg PO BID 11/02/22 03/25/23 01/13/23 History release thiamine HCl (vitamin B1) 100 mg 100 mg PO BID 11/02/22 03/25/23 03/25/23 History tablet risperidone 0.25 mg tablet 0.25 mg PO DAILY 12/16/22 03/25/23 03/23/23 History acetaminophen 325 mg tablet 650 mg PO Q6H PRN Pain 01/13/23 03/25/23 03/25/23 History multivitamin 1 tab PO DAILY 01/13/23 03/25/23 03/25/23 History potassium chloride 20 mEq 20 meq PO DAILY 01/13/23 03/25/23 03/25/23 History tablet,extended release quetiapine 50 mg tablet 50 mg PO BEDTIME 01/13/23 03/25/23 01/12/23 History torsemide 20 mg tablet 20 mg PO DAILY 01/13/23 03/25/23 03/25/23 History Lactobacillus acidophilus 500 500,000,000 cell PO DAILY 03/25/23 03/25/23 03/25/23 History million cell capsule cyanocobalamin (vitamin B-12) 1,000 mcg PO DAILY 03/25/23 03/25/23 03/25/23 History 1,000 mcg tablet nystatin 100,000 unit/gram topical 1 appl topical BID PRN Rash 03/25/23 03/25/23 03/25/23 History powder Physical Exam 2 Vital Signs and Narrative: Vital Signs: Last Vital Signs Temp 98.8 F 03/25/23 18:31 Pulse 90 03/25/23 18:31 Resp 30 H 03/25/23 18:31 BP 110/57 L 03/25/23 18:31 Pulse Ox 91 L 03/25/23 18:31 O2 Del Method Room Air 03/25/23 18:31 BMI result Body Mass Index 28.3 Constitutional - Awake and Alert, No apparent distress Eyes - PERRLA, EOMI Cardiovascular - S1S2, RRR, No edema Respiratory - Normal lung expansion, Normal respiratory effort, No respiratory distress, rhonchi bll Gastrointestinal - NT / ND; +BS; No rebound or guarding Extremities - no calf tenderness bilaterally, no swelling Skin - Warm/Dry Neurological - Alert & oriented to time, can identify self but by maiden name only Psychological - Appropriate affect Results Labs 03/25/23 16:41 03/25/23 16:41 Labs: Laboratory Results - last 24 hr 03/25/23 03/25/23 16:41 16:50 MCV 91.9 MCH 30.1 MCHC 32.8 RDW 14.6 Plt Count 196 MPV 11.2 Immature Gran % (Auto) 0.6 H Neut % (Auto) 90.6 H Lymph % (Auto) 4.9 L [place] % (Auto) 3.6 Eos % (Auto) 0.1 Baso % (Auto) 0.2 Lymph # (Auto) 1.0 L [place] # (Auto) 0.8 Eos # (Auto) 0.0 Baso # (Auto) 0.1 Abs Immat Gran (auto) 0.13 H Absolute Neuts (auto) 19.1 H Absolute Nucleated RBC 0.000 Nucleated RBC % (auto) 0.0 Smear Tech's Comments VERIFIED PT 14.9 H INR 1.2 H VBG pH 7.48 H VBG pCO2 47 VBG pO2 41 VBG HCO3 35 H VBG O2 Saturation 64.0 VBG Base Excess 10.7 Anion Gap 18 Estim Creat Clear Calc 27.6 Estimated GFR 40 Random Glucose 182 H Lactic Acid 2.4 H* Calcium 9.4 Magnesium 1.5 L Total Bilirubin 1.6 H Direct Bilirubin 0.7 H AST 25 ALT 20 Alkaline Phosphatase 92 Ammonia 21 Total Creatine Kinase 23 L B-Natriuretic Peptide 134 H Total Protein 7.3 Albumin 3.5 Lipase 12 Procalcitonin 0.33 TSH 0.37 COVID-19 ([facility]) Negative COVID-19 Clin Com See Note Imaging Radiologist's Impressions: Impressions Head CT 03/25/23 16:59 IMPRESSION: No acute intracranial hemorrhage or infarct. Abdomen/Pelvis CT 03/25/23 17:00 IMPRESSION: Bilateral lower lobe interstitial and alveolar infiltrates, right worse than left. No acute finding within the abdomen or pelvis. Chest X-Ray 03/25/23 18:13 IMPRESSION: Bilateral basilar opacities millicuries of atelectasis or infiltrate. Follow-up recommended Assessment and Plan (1) Pneumonia: Qualifiers: Laterality: bilateral Lung location: lower lobe of lung Pneumonia type: due to unspecified organism Qualified Code(s): J18.9 - Pneumonia, unspecified organism Status: Acute (2) Severe sepsis: Status: Acute Plan 82-year-old female with pertinent history of dementia, COPD with chronic hypoxemic respiratory failure with supplemental O2 use as needed, CAD, paroxysmal atrial fibrillation not on anticoagulation, history of pseudomonal pneumonia, chronic systolic congestive heart failure, VRE UTI, mixed hyperlipidemia admitted for further management of bilateral pneumonia with acute metabolic encephalopathy and severe sepsis. # bilateral pneumonia with severe sepsis -leukocytosis 20, febrile to 102.7, heart rate 94, acute lactic acidosis 2.4, repeat pending. No hypotension -chest x-ray with bilateral basilar opacities. CT abdomen/pelvis noted bilateral lower lobe interstitial and alveolar infiltrates, right worse than left -patient has history of aspiration and pseudomonal pneumonia -IV Zosyn (initiated 03/25) -symptomatic management -sputum culture, strep pneumo antigen, Legionella antigen pending -follow CBC, cultures # acute metabolic encephalopathy -secondary to infection -head CT without any acute intracranial abnormality -treat infection as above, monitor mentation # COPD with chronic hypoxic respiratory failure -no acute exacerbation -continue maintenance inhalers, levalbuterol nebs, albuterol p.r.n. -supplemental O2 p.r.n. to maintain oximetry greater than 92% # paroxysmal atrial fibrillation-rate controlled -not on anticoagulation -continue aspirin, metoprolol # chronic systolic congestive heart failure -no acute exacerbation -continue p.o. diuretics # CAD/HLD -continue ASA, beta-jamel, statin # unspecified dementia -acute metabolic encephalopathy as above -monitor mentation DVT prophylaxis-Lovenox Full code Patient requires inpatient stay at least 2 midnights for management of bilateral pneumonia with severe sepsis and acute metabolic encephalopathy requiring IV antibiotics and close monitoring to prevented decompensation Time Spent With Patient Time: Total time managing care of this patient today ____ minutes. Quality Stroke Does the patient have a stroke diagnosis?: No VTE Prior VTE?: No VTE Risk Level:: Medical - moderate - high VTE Device Contraindication: Treatment Not Indicated VTE Drug Contraindication: N/A - Med Ordered
[2023-03-25 20:18] LABS: ~Lactic Acid-LAB USE ONLY 2.4 mmol/L (0.5-2.0)
[2023-03-25] MEDS: Piperacillin Sodium/Tazobactam 4.5 GM in 0.9 % Sodium Chloride 100 ML IV (20:38)
[2023-03-25] MEDS: Enoxaparin Sodium 30 MG/0.3 ML SYRINGE SUBCUT (20:38)
[2023-03-25] MEDS: Magnesium Sulfate/H2O 2 GM/50 ML PIGGYBACK IV (20:38)
[2023-03-25] MEDS: QUEtiapine Fumarate 50 MG TABLET PO (20:39)
[2023-03-25] MEDS: Atorvastatin Calcium 40 MG TABLET PO (20:39)
[2023-03-25] MEDS: Thiamine HCL 100 MG TABLET PO (20:39)
[2023-03-25] MEDS: Montelukast Sodium 10 MG TABLET PO (20:39)
[2023-03-25] MEDS: Fluticasone Propionate Nasal 16 GM SPRAY 1 SPRAY NOSTRIL-B (21:33)
[2023-03-25 21:36] VITALS: BP 110/46; PULSE 75; RESP 21; TEMP 36.9; O2SAT 93
[2023-03-25 21:58] LABS: Reflex Lactate? 2 Y
[2023-03-25 22:29] LABS: ~Lactic Acid-LAB USE ONLY 1.8 mmol/L (0.5-2.0)
[2023-03-26] MEDS: 0.9 % Sodium Chloride Flush 3 ML SYRINGE IVFLUSH ×2 (00:53→09:16)
[2023-03-26] MEDS: Piperacillin Sodium/Tazobactam 4.5 GM in 0.9 % Sodium Chloride 100 ML IV ×2 (04:37→12:09)
--- NOTE | 2023-03-26 04:41 | PC.NURSE ---
Pt unable to provide urine sample at this time.
[2023-03-26 05:38] LABS: MANUAL DIFF FLAG NO
[2023-03-26 05:45] LABS: Basophils Percent Auto 0.2 % (0-2); Eosinophils Absolute Auto 0.1 X10*3/uL (0.0-0.4); Eosinophils Percent Auto 0.4 % (0-4); Hematocrit 29.9 % (37.0-47.0); Hemoglobin 9.8 g/dl (12.0-16.0); Imm Gran Pct Auto 0.6 % (0.0-0.4); Lymphocytes Absolute Auto 1.7 X10*3/uL (1.2-4.9); Lymphocytes Percent Auto 9.7 % (20-40); Mean Corpuscular HGB Conc 32.8 g/dl (31.0-35.0); Mean Corpuscular Hemoglobin 30.3 pg (27.0-33.0); Mean Corpuscular Volume 92.6 fL (80.0-98.0); Mean Platelet Volume 11.6 fL (9.4-12.3); Monocytes Absolute Auto 0.7 X10*3/uL (0.1-1.2); Monocytes Percent Auto 3.9 % (2-11); Neutrophils Absolute Auto 15.2 x10*3/uL (2.0-8.3); Neutrophils Percent Auto 85.2 % (45-73); Platelet Count 154 X10*3/uL (160-400); Red Blood Count 3.23 X10*6/uL (4.20-5.50); Red Cell Distribution Width 14.5 % (11.0-16.0); White Blood Count 17.8 X10*3/uL (4.8-10.8)
--- NOTE | 2023-03-26 05:46 | PC.NURSE ---
pt resting comfortably at this time
[2023-03-26 06:12] LABS: Anion Gap 16 (12-20); Blood Urea Nitrogen 23 mg/dL (9-16); Calcium 8.8 mg/dL (8.4-10.2); Carbon Dioxide 23 mmol/L (22-29); Chloride 103 mmol/L (96-108); Creatinine Clr Calc Pharmacy 32.8; Estimated Glomerular Filt Rate 48; Glucose Random 104 mg/dL (60-115); Potassium 2.9 mmol/L (3.3-5.1); Sodium 139 mmol/L (135-145)
[2023-03-26 06:14] VITALS: BP 115/95; PULSE 81; RESP 24; O2SAT 97
[2023-03-26] MEDS: Omeprazole 20 MG CAPSULE.DR PO (06:18)
--- NOTE | 2023-03-26 07:16 | PC.NURSE ---
iv flushed patient and benign. pt woke up talking alert oriented, oral care water with no difficulty.
[2023-03-26 09:16] LABS: Magnesium 1.5 mg/dL (1.6-2.6)
[2023-03-26] MEDS: Cyanocobalamin (Vitamin B-12) 1,000 MCG TABLET 1000 MCG PO (09:16)
[2023-03-26] MEDS: Thiamine HCL 100 MG TABLET PO (09:16)
[2023-03-26] MEDS: Potassium Chloride ER 20 MEQ TAB.ER.PRT PO (09:16)
[2023-03-26] MEDS: Potassium Chloride/H20 10 MEQ/100 ML PIGGYBACK 100 MEQ IV ×4 (09:16→17:58)
[2023-03-26] MEDS: Multivitamin TABLET 1 TAB PO (09:16)
[2023-03-26] MEDS: risperiDONE 0.25 MG TABLET PO (09:16)
[2023-03-26] MEDS: Aspirin Enteric Coated 81 MG TABLET.DR PO (09:16)
[2023-03-26] MEDS: Ferrous Sulfate 324 MG TABLET.DR PO (09:16)
[2023-03-26] MEDS: Fluticasone Propionate Nasal 16 GM SPRAY 1 SPRAY NOSTRIL-B (09:18)
--- NOTE | 2023-03-26 09:32 | PC.NURSE ---
a&ox3, vss and up to date, nsr on the insulation worker interior surface. pt medicated per provider order. provider bedside assessing pt. provider verbal order - ok'd to hang NS w/ potassium d/t pt c/o pain at IV insertion site. crackles noted throughout upon auscultation/ pt also c/o 6/10 lower back pain - pt guerin not want PRN medication at this time. resting comfortably in no apparent distress. respirations even and unlabored. call unr placed within reach.
--- NOTE | 2023-03-26 10:21 | PC.NURSE ---
pt repositioned/boosted for comfort. pt still c/o pain at IV site at this time. KCL drip time changed so infusion could be administered slower. pt states that insertion site now feels better. resting comfortably in no apparent distress. call nur placed within reach.
--- NOTE | 2023-03-26 11:26 | HO.PM.IMPN ---
Subjective Subjective Date of Service: 03/26/23 Interval History: fever resolved coughing but not hypoxic Review of Systems Review of Systems: Yes all other systems are reviewed and are negative Physical Exam Vital Signs: Vital Signs: Last Vital Signs Temp 98.5 F 03/25/23 21:36 Pulse 81 03/26/23 06:14 Resp 24 H 03/26/23 06:14 BP 115/95 H 03/26/23 06:14 Pulse Ox 97 03/26/23 06:14 O2 Del Method Room Air 03/26/23 06:14 BMI result Body Mass Index 28.3 Gen: in no acute distress HEENT: sclera anicteric, moist mucus membranes Neck: supple Lungs: bilateral inspiratory crackles Heart: regular rate and rhythm, no murmurs Abd: soft, nontender Ext: no edema Skin: warm/well-perfused Neuro: alert and oriented to self and place, no focal findings Psych: appropriate affect Objective Data Active Medications Acetaminophen (Acetaminophen 325 Mg Tablet) 650 mg PO Q6H PRN PRN Reason: Pain, Mild (Pain Scale 1-3) Albuterol Sulfate (Albuterol Sulfate 90 Mcg 8 Gm Inhaler) 2 puff INHALE Q4H PRN PRN Reason: Shortness Of Breath Or Wheezing Aspirin (Aspirin Enteric Coated 81 Mg Tablet.) 81 mg PO DAILY [facility] Last Admin: 03/26/23 09:16 Dose: 81 mg Documented By: YASIR Atorvastatin Calcium (Atorvastatin Calcium 40 Mg Tablet) 40 mg PO BEDTIME [facility] Last Admin: 03/25/23 20:39 Dose: 40 mg Documented By: ARJUN Cyanocobalamin (Cyanocobalamin (Vitamin B-12) 1,000 Mcg Tablet) 1,000 mcg PO DAILY [facility] Last Admin: 03/26/23 09:16 Dose: 1,000 mcg Documented By: YASIR Docusate Sodium (Docusate Sodium 100 Mg Capsule) 100 mg PO DAILY PRN PRN Reason: Constipation Enoxaparin Sodium (Enoxaparin Sodium 30 Mg/0.3 Ml Syringe) 30 mg SUBCUT Q24H [facility] Last Admin: 03/25/23 20:38 Dose: 30 mg Documented By: ARJUN Ferrous Sulfate (Ferrous Sulfate 324 Mg Tablet.) 324 mg PO DAILY [facility] Last Admin: 03/26/23 09:16 Dose: 324 mg Documented By: YASIR Fluticasone Propionate (Fluticasone Propionate Nasal 16 Gm [place]) 1 spray NOSTRIL-B BID [facility] Last Admin: 03/26/23 09:18 Dose: 1 spray Documented By: YASIR Guaifenesin (Guaifenesin 200 Mg/10 Ml 10 Ml Liquid) 10 ml PO Q4H PRN PRN Reason: Cough Piperacillin Sod/Tazobactam (Sod 4.5 gm/ Sodium Chloride) 100 mls @ 200 mls/hr IV Q8H [facility] Last Infusion: 03/26/23 05:36 Dose: Infused Documented By: BHAVIN Potassium Chloride (Potassium Chloride/H20) 10 meq in 100 mls @ 100 mls/hr IV Q1H [facility] Stop: 03/26/23 11:59 Last Admin: 03/26/23 09:16 Dose: 100 mls/hr Documented By: YASIR Sodium Chloride (Ns) 1,000 mls @ 125 mls/hr IVCONT .Q8H [facility] Stop: 03/26/23 13:44 Levalbuterol HCl (Levalbuterol Hcl 1.25 Mg/3 Ml Vial.Alysha) 1.25 mg INHALE RTID [facility] Last Admin: 03/26/23 08:31 Dose: Not Given Documented By: KVNG Non-Admin Reason: Patient Asleep Loperamide HCl (Loperamide Hcl 2 Mg Capsule) 2 mg PO Q4H PRN PRN Reason: diarrhea Montelukast Sodium (Montelukast Sodium 10 Mg Tablet) 10 mg PO BEDTIME [facility] Last Admin: 03/25/23 20:39 Dose: 10 mg Documented By: ARJUN Multivitamins/Vitamin C (Multivitamin Tablet) 1 tab PO DAILY [facility] Last Admin: 03/26/23 09:16 Dose: 1 tab Documented By: YASIR Non-Formulary Medication (Umeclidinium-Vilanterol [Anoro Ellipta]) 1 each INHALE DAILY [facility] Omeprazole (Omeprazole 20 Mg Capsule.) 20 mg PO BID@0630,1630 [facility] Last Admin: 03/26/23 06:18 Dose: 20 mg Documented By: BHAVIN Ondansetron HCl (Ondansetron Hcl 4 Mg/2 Ml Vial) 4 mg IVPUSH Q8H PRN PRN Reason: Nausea and Vomiting Potassium Chloride (Potassium Chloride Er 20 Meq Tab.Er.Prt) 20 meq PO DAILY [facility] Last Admin: 03/26/23 09:16 Dose: 20 meq Documented By: YASIR Quetiapine Fumarate (Quetiapine Fumarate 50 Mg Tablet) 50 mg PO BEDTIME [facility] Last Admin: 03/25/23 20:39 Dose: 50 mg Documented By: ARJUN Risperidone (Risperidone 0.25 Mg Tablet) 0.25 mg PO DAILY [facility] Last Admin: 03/26/23 09:16 Dose: 0.25 mg Documented By: YASIR Sodium Chloride (0.9 % Sodium Chloride Flush 3 Ml Syringe) 3 ml IVFLUSH QSHIFT [facility] Last Admin: 03/26/23 09:16 Dose: 3 ml Documented By: YASIR Thiamine HCl (Thiamine Hcl 100 Mg Tablet) 100 mg PO BID [facility] Last Admin: 03/26/23 09:16 Dose: 100 mg Documented By: YASIR Labs 03/26/23 05:04 03/26/23 05:04 Labs: Laboratory Results - last 24 hr 03/25/23 03/25/23 03/25/23 16:41 16:41 16:50 MCV 91.9 MCH 30.1 MCHC 32.8 RDW 14.6 Plt Count 196 MPV 11.2 Immature Gran % (Auto) 0.6 H Neut % (Auto) 90.6 H Lymph % (Auto) 4.9 L Sunflower % (Auto) 3.6 Eos % (Auto) 0.1 Baso % (Auto) 0.2 Lymph # (Auto) 1.0 L Sunflower # (Auto) 0.8 Eos # (Auto) 0.0 Baso # (Auto) 0.1 Abs Immat Gran (auto) 0.13 H Absolute Neuts (auto) 19.1 H Absolute Nucleated RBC 0.000 Nucleated RBC % (auto) 0.0 Smear Tech's Comments VERIFIED PT 14.9 H INR 1.2 H VBG pH 7.48 H VBG pCO2 47 VBG pO2 41 VBG HCO3 35 H VBG O2 Saturation 64.0 VBG Base Excess 10.7 Anion Gap 18 Estim Creat Clear Calc 27.6 Estimated GFR 40 Random Glucose 182 H Lactic Acid 2.4 H* Lactic Acid F/U @ 2Hr Lactic Acid F/U @ 4Hr Calcium 9.4 Magnesium 1.5 L 1.5 L Total Bilirubin 1.6 H Direct Bilirubin 0.7 H AST 25 ALT 20 Alkaline Phosphatase 92 Ammonia 21 Total Creatine Kinase 23 L B-Natriuretic Peptide 134 H Total Protein 7.3 Albumin 3.5 Lipase 12 Procalcitonin 0.33 TSH 0.37 COVID-19 ([facility]) Negative COVID-19 Clin Com See Note 03/25/23 03/25/23 03/26/23 19:55 22:12 05:04 MCV 92.6 MCH 30.3 MCHC 32.8 RDW 14.5 Plt Count 154 L MPV 11.6 Immature Gran % (Auto) 0.6 H Neut % (Auto) 85.2 H Lymph % (Auto) 9.7 L Sunflower % (Auto) 3.9 Eos % (Auto) 0.4 Baso % (Auto) 0.2 Lymph # (Auto) 1.7 Sunflower # (Auto) 0.7 Eos # (Auto) 0.1 Baso # (Auto) 0.0 Abs Immat Gran (auto) 0.10 H Absolute Neuts (auto) 15.2 H Absolute Nucleated RBC 0.000 Nucleated RBC % (auto) 0.0 Smear Tech's Comments PT INR VBG pH VBG pCO2 VBG pO2 VBG HCO3 VBG O2 Saturation VBG Base Excess Anion Gap 16 Estim Creat Clear Calc 32.8 Estimated GFR 48 Random Glucose 104 Lactic Acid Lactic Acid F/U @ 2Hr 2.4 H* Lactic Acid F/U @ 4Hr 1.8 Calcium 8.8 D Magnesium Total Bilirubin Direct Bilirubin AST ALT Alkaline Phosphatase Ammonia Total Creatine Kinase B-Natriuretic Peptide Total Protein Albumin Lipase Procalcitonin TSH COVID-19 ([facility]) COVID-19 Clin Com Assessment and Plan (1) Severe sepsis: Status: Acute Plan d2 82yo with COPD on prn home O2, CAD, HFrEF, HLD, pAF not on AC, hx VRE UTI, dementia presenting with confusion admitted for severe sepsis with lactic acidosis due to pneumonia pneumonia, PSI score 124 [class IV] - d2 pip-estefany, follow BCx, trend PCT, Legionella + pneumococcal UAgs pending hypoK - replete IV, recheck level in AM pAF - continue metoprolol, not on AC due to hx severe bleeding CAD - continue ASA, statin, metoprolol chronic anemia - continue FeSO4 chronic HFrEF - continue metoprolol, hold torsemide dementia - continue quetiapine, risperidone COPD - continue montelukast, Anoro, prn albuterol ?VTE ppx - enoxaparin dispo - PT eval In my clinical judgment, the patient requires continued inpatient hospitalization for the following reasons: IV ABX Time Spent With Patient Time: Total time managing care of this patient today ___40_ minutes. Quality Stroke Does the patient have a stroke diagnosis?: No VTE Prior VTE?: No VTE Risk Level:: Medical - moderate - high VTE Device Contraindication: Treatment Not Indicated VTE Drug Contraindication: N/A - Med Ordered
[2023-03-26 11:42] VITALS: BP 132/52; PULSE 78; RESP 14; O2SAT 97
[2023-03-26 11:53] LABS: Magnesium 2.5 mg/dL (1.6-2.6)
[2023-03-26 11:58] VITALS: BP 136/53; PULSE 78; RESP 16; O2SAT 99
--- NOTE | 2023-03-26 11:59 | PC.NURSE ---
vss and up to date. nsr on the monitoring analyst. pt still verbalizing 12/29 lower back pain bilaterally but does not want PRN meds at this time. KCL continuously running at this time. pt's son in law bedside for support. respirations even and unlabored. call nur placed within reach.
--- NOTE | 2023-03-26 13:34 | PC.NURSE ---
report given to RN - will notify transport.
[2023-03-26 15:48] VITALS: BP 142/63; PULSE 78; RESP 18; TEMP 36.1; O2SAT 96
[2023-03-26 18:11] VITALS: BMI 28.2
[2023-03-26 19:24] VITALS: PULSE 80; RESP 18; O2SAT 95
[2023-03-26] MEDS: levalbuterol HCL 1.25 MG/3 ML VIAL.NEB INHALE (19:24)
[2023-03-26 19:47] VITALS: BP 136/63; PULSE 80; RESP 18; TEMP 36; O2SAT 95
--- NOTE | 2023-03-26 21:00 | MHC.PIE ---
p; pt pulled out iv on previous shift. iv inception attempted numerous time by previous rn and this show card writer with pt refusing any iv inception, med or any care at this time. i; dr loja notified e; will cont to monitor
[2023-03-27 02:59] VITALS: BP 122/76; PULSE 89; RESP 18; TEMP 36.6; O2SAT 96
[2023-03-27] MEDS: Piperacillin Sodium/Tazobactam 4.5 GM in 0.9 % Sodium Chloride 100 ML IV (05:46)
[2023-03-27 06:50] VITALS: BP 149/61; PULSE 79; RESP 18; TEMP 36.6; O2SAT 96
--- NOTE | 2023-03-27 08:53 | PC.NURSE ---
Pt requesting IV to be reomoved. Explained to patient importance of IV for antibiotics. Pt continuously stated I want it out and I want it out now. If you don't remove it, I will do it myself. I have rights and I don't want it. This RN removed IV. aware and in to see pt.
[2023-03-27] MEDS: Ferrous Sulfate 324 MG TABLET.DR PO (09:46)
[2023-03-27] MEDS: risperiDONE 0.25 MG TABLET PO (09:46)
[2023-03-27] MEDS: Multivitamin TABLET 1 TAB PO (09:46)
[2023-03-27] MEDS: Aspirin Enteric Coated 81 MG TABLET.DR PO (09:46)
--- NOTE | 2023-03-27 10:27 | MHC.SL.SWA ---
Addendum entered and electronically signed by Rebekah Bagley MA, CCC-CORN BREEDER 03/27/23 10:55: Per FIELD STAFF MANAGER, pt was upset, banging hands on tray, demanding crackers. CORN BREEDER returned w/ various food options for pt to further evaluate. Pt still very agitated when asked questions. She ate half of a tuna fish salad sandwich. She demonstrated mildly prolonged chewing and mashing. She presented with some pocketing in left cheek. She was able to clear most residue when cued for dry swallow. Will upgrade to ground diet (NDD2). Notified team (MD, RN, RD) and updated diet order. Will continue to follow. Original Note: Speech Pathologist Impression: Risk of aspiration, oral phase dysphagia Risk of Aspiration Due to: Neurological Condition History of Pneumonia Reduced Cognition Dysphasia Diet Status: Start on NDD1/THIN Liquid Consistency and Strategies for Safe Swallow: Liquid Intake Recommendation: Thin Liquid Intake Strategies: Small Sips Solid Food Consistency: Dietary Recommendations: Pureed (NDD1) Additional Modifications to Solid Foods: Recommend UPGRADE from NPO, START on PUREED (NDD1) diet and THIN liquids, pills WHOLE in PUREE or LIQUID per pt's tolerance/preference. Recommend aspiration precautions and intermittent supervision. Oral Medication Intake: Whole with Puree Please contact the pharmacy regarding appropriate crushable or liquid drug formulations that are available whenever modified delivery is recommended. Compensatory Strategies and Precautions to be Taken for Safe Swallow: Sitting Upright (90 deg) Double Swallow No Straw Small Bites and Sips Rate of Ingestion Change Avoid Specific Foods Supervision While Eating and Drinking for Safe Swallow: Intermittent Supervision Foods to Avoid: Mixed textures Swallowing Recommended Treatments: Compens. Strategy Educat. Recommendation for Speech: Inpatient Speech Therapy Comment: CORN BREEDER to f/u 1-2x Frequency/Duration: Date Range for Service Req: Timeline to reassess: Vehicle Assembly Inspector Clinican/Clinical Fellow: No Supervisory Statement: I have reviewed and agree with the student/clinical fellow's documentation: N/A Speech Language Pathologist: Rebekah Bagley M.A., CCC-CORN BREEDER
[2023-03-27] MEDS: Potassium Chloride ER 20 MEQ TAB.ER.PRT PO (11:25)
[2023-03-27 12:08] LABS: Hematocrit 32.9 % (37.0-47.0); Hemoglobin 10.7 g/dl (12.0-16.0); Mean Corpuscular HGB Conc 32.5 g/dl (31.0-35.0); Mean Corpuscular Hemoglobin 30.6 pg (27.0-33.0); Mean Platelet Volume 10.7 fL (9.4-12.3); Platelet Count 160 X10*3/uL (160-400); Red Cell Distribution Width 14.6 % (11.0-16.0); White Blood Count 8.4 X10*3/uL (4.8-10.8)
[2023-03-27 12:34] LABS: Anion Gap 14 (12-20); Blood Urea Nitrogen 18 mg/dL (9-16); Calcium 9.6 mg/dL (8.4-10.2); Carbon Dioxide 26 mmol/L (22-29); Chloride 105 mmol/L (96-108); Creatinine Clr Calc Pharmacy 33.7; Estimated Glomerular Filt Rate 50; Glucose Random 111 mg/dL (60-115); Magnesium 2.3 mg/dL (1.6-2.6); Potassium 3.1 mmol/L (3.3-5.1); Sodium 142 mmol/L (135-145)
--- NOTE | 2023-03-27 12:36 | HO.PM.IMPN ---
Subjective Subjective Date of Service: 03/27/23 Interval History: refused blood draw and IV this AM refused prednisone c/o cough not hypoxic c/o diarrhea Review of Systems Review of Systems: Yes all other systems are reviewed and are negative Physical Exam Vital Signs: Vital Signs: Last Vital Signs Temp 98 F 03/27/23 06:50 Pulse 79 03/27/23 06:50 Resp 18 03/27/23 06:50 BP 149/61 H 03/27/23 06:50 Pulse Ox 96 03/27/23 06:50 O2 Del Method Room Air 03/27/23 06:50 BMI result Body Mass Index 28.2 Gen: in no acute distress HEENT: sclera anicteric, moist mucus membranes Neck: supple Lungs: bilateral inspiratory crackles Heart: regular rate and rhythm, no murmurs Abd: soft, nontender Ext: no edema Skin: warm/well-perfused Neuro: alert and oriented to self and place, no focal findings Psych: appropriate affect Objective Data Active Medications Acetaminophen (Acetaminophen 325 Mg Tablet) 650 mg PO Q6H PRN PRN Reason: Pain, Mild (Pain Scale 1-3) Albuterol Sulfate (Albuterol Sulfate 90 Mcg 8 Gm Inhaler) 2 puff INHALE Q4H PRN PRN Reason: Shortness Of Breath Or Wheezing Aspirin (Aspirin Enteric Coated 81 Mg Tablet.) 81 mg PO DAILY [facility] Last Admin: 03/27/23 09:46 Dose: 81 mg Documented By: BUCKY Atorvastatin Calcium (Atorvastatin Calcium 40 Mg Tablet) 40 mg PO BEDTIME [facility] Last Admin: 03/26/23 20:59 Dose: Not Given Documented By: KIESHA Non-Admin Reason: Patient Refused Cyanocobalamin (Cyanocobalamin (Vitamin B-12) 1,000 Mcg Tablet) 1,000 mcg PO DAILY [facility] Last Admin: 03/27/23 09:59 Dose: Not Given Documented By: BUCKY Non-Admin Reason: Patient Refused Docusate Sodium (Docusate Sodium 100 Mg Capsule) 100 mg PO DAILY PRN PRN Reason: Constipation Enoxaparin Sodium (Enoxaparin Sodium 40 Mg/0.4 Ml Syringe) 40 mg SUBCUT Q24H [facility] Ferrous Sulfate (Ferrous Sulfate 324 Mg Tablet.) 324 mg PO DAILY [facility] Last Admin: 03/27/23 09:46 Dose: 324 mg Documented By: BUCKY Fluticasone Propionate (Fluticasone Propionate Nasal 16 Gm [place]) 1 spray NOSTRIL-B BID [facility] Last Admin: 03/27/23 09:59 Dose: Not Given Documented By: BUCKY Non-Admin Reason: Patient Refused Guaifenesin (Guaifenesin 200 Mg/10 Ml 10 Ml Liquid) 10 ml PO Q4H PRN PRN Reason: Cough Levalbuterol HCl (Levalbuterol Hcl 1.25 Mg/3 Ml Vial.Neb) 1.25 mg INHALE RTID [facility] Last Admin: 03/27/23 07:54 Dose: Not Given Documented By: SOHAM Non-Admin Reason: Patient Refused Levofloxacin (Levofloxacin 750 Mg Tablet) 750 mg PO Q48H [facility] Loperamide HCl (Loperamide Hcl 2 Mg Capsule) 2 mg PO Q4H PRN PRN Reason: diarrhea Metoprolol Tartrate (Metoprolol Tartrate 25 Mg Tablet) 25 mg PO BID [facility]; Protocol Montelukast Sodium (Montelukast Sodium 10 Mg Tablet) 10 mg PO BEDTIME [facility] Last Admin: 03/26/23 21:00 Dose: Not Given Documented By: KIESHA Non-Admin Reason: Patient Refused Multivitamins/Vitamin C (Multivitamin Tablet) 1 tab PO DAILY [facility] Last Admin: 03/27/23 09:46 Dose: 1 tab Documented By: BUCKY Non-Formulary Medication (Umeclidinium-Vilanterol [Anoro Ellipta]) 1 each INHALE DAILY [facility] Omeprazole (Omeprazole 20 Mg Capsule.) 20 mg PO BID@0630,1630 [facility] Last Admin: 03/27/23 05:30 Dose: Not Given Documented By: KIESHA Non-Admin Reason: awaiting speech eval Ondansetron HCl (Ondansetron Hcl 4 Mg/2 Ml Vial) 4 mg IVPUSH Q8H PRN PRN Reason: Nausea and Vomiting Potassium Chloride (Potassium Chloride Er 20 Meq Tab.Er.Prt) 20 meq PO DAILY [facility] Last Admin: 03/27/23 11:25 Dose: 20 meq Documented By: BUCKY Prednisone (Prednisone 20 Mg Tablet) 40 mg PO DAILY [facility] Last Admin: 03/27/23 09:59 Dose: Not Given Documented By: BUCKY Non-Admin Reason: Patient Refused Quetiapine Fumarate (Quetiapine Fumarate 50 Mg Tablet) 50 mg PO BEDTIME [facility] Last Admin: 03/26/23 21:00 Dose: Not Given Documented By: KIESHA Non-Admin Reason: Patient Refused Risperidone (Risperidone 0.25 Mg Tablet) 0.25 mg PO DAILY [facility] Last Admin: 03/27/23 09:46 Dose: 0.25 mg Documented By: BUCKY Sodium Chloride (0.9 % Sodium Chloride Flush 3 Ml Syringe) 3 ml IVFLUSH QSHIFT [facility] Last Admin: 03/27/23 09:45 Dose: Not Given Documented By: BUCKY Non-Admin Reason: No Access Thiamine HCl (Thiamine Hcl 100 Mg Tablet) 100 mg PO BID [facility] Last Admin: 03/27/23 10:00 Dose: Not Given Documented By: BUCKY Non-Admin Reason: Patient Refused Labs 03/27/23 12:02 03/27/23 12:02 Labs: Laboratory Results - last 24 hr 03/27/23 12:02 MCV 94.0 MCH 30.6 MCHC 32.5 RDW 14.6 Plt Count 160 MPV 10.7 Absolute Nucleated RBC 0.000 Nucleated RBC % (auto) 0.0 Anion Gap 14 Estim Creat Clear Calc 33.7 Estimated GFR 50 Random Glucose 111 Calcium 9.6 D Magnesium 2.3 Microbiology Microbiology Results: Microbiology 03/25/23 17:07 Blood Culture - Preliminary Blood - Venous No growth after 24 hours. 03/25/23 16:41 Blood Culture - Preliminary Blood - Venous No growth after 24 hours. Assessment and Plan (1) Severe sepsis: Status: Acute Plan d3 82yo with COPD on prn home O2, CAD, HFrEF, HLD, pAF not on AC, hx VRE UTI, dementia presenting with confusion admitted for severe sepsis with lactic acidosis due to pneumonia pneumonia, PSI score 124 [class IV] - got pip-estefany 03/25-03/27, switch to levofloxacin 03/27- [history of Pseudomonas PNA], follow BCx, trend PCT, Legionella + pneumococcal UAgs pending C diff colitis - vancomycin PO 03/27- hypoK - replete PO, recheck level in AM pAF - continue metoprolol, not on AC due to hx severe bleeding CAD - continue ASA, statin, metoprolol chronic anemia - continue FeSO4 chronic HFrEF - continue metoprolol, hold torsemide dementia - continue quetiapine, risperidone - Psych consult for competency COPD - continue montelukast, Anoro, prn albuterol ?VTE ppx - enoxaparin dispo - PT eval In my clinical judgment, the patient requires continued inpatient hospitalization for the following reasons: IV ABX Time Spent With Patient Time: Total time managing care of this patient today __40__ minutes. Quality Stroke Does the patient have a stroke diagnosis?: No VTE Prior VTE?: No VTE Risk Level:: Medical - moderate - high VTE Device Contraindication: Treatment Not Indicated VTE Drug Contraindication: N/A - Med Ordered
[2023-03-27 12:47] LABS: CDiff Gene PCR POSITIVE (Negative)
[2023-03-27 12:51] LABS: Procalcitonin 0.52 ng/mL
[2023-03-27] MEDS: vancomycin HCL 125 MG CAPSULE PO ×2 (13:04→21:34)
[2023-03-27] MEDS: Potassium Chloride ER 20 MEQ TAB.ER.PRT 40 MEQ PO (13:04)
[2023-03-27] MEDS: guaiFENesin 200 MG/10 ML 10 ML LIQUID PO (13:05)
[2023-03-27 14:04] LABS: CDIFF Internal ctrl Dots and bkg OK (V); CDiff Toxin Negative (Negative)
--- NOTE | 2023-03-27 14:59 | MHC.CM.PN ---
pt lives with dgter and samira has own ride home per dgter pt had been active with [facility] until 2 weeks ago a new referral has been placed dc plan home w/family and [facility]
[2023-03-27 15:23] VITALS: BP 147/73; PULSE 81; RESP 22; TEMP 36.4; O2SAT 99
--- NOTE | 2023-03-27 17:01 | PC.NURSE ---
1130: Pt with 3 incontinent episodes of soft/liquid stool. Daughter at bedside and concerned for CDIFF. Dr Marcial notified, stool specimen obtained and sent to lab. Pt agreed to have phlebotomy come to draw labs and agreed to take potassium while daughter in the room. Daughter requested a phych eval, Dr Marcial notified and ordered.
--- NOTE | 2023-03-27 18:31 | PC.NURSE ---
Pt refused some of her meds today, Dr Marcial notified
[2023-03-27 20:00] VITALS: PULSE 88; RESP 16; TEMP 36.6; O2SAT 98
[2023-03-27] MEDS: levalbuterol HCL 1.25 MG/3 ML VIAL.NEB INHALE (20:03)
[2023-03-27 20:04] VITALS: PULSE 95; RESP 24; O2SAT 97
[2023-03-27] MEDS: Metoprolol Tartrate 25 MG TABLET PO (21:33)
[2023-03-27] MEDS: Montelukast Sodium 10 MG TABLET PO (21:33)
[2023-03-27] MEDS: Thiamine HCL 100 MG TABLET PO (21:33)
[2023-03-27] MEDS: Atorvastatin Calcium 40 MG TABLET PO (21:33)
[2023-03-27] MEDS: levoFLOXacin 750 MG TABLET PO (21:33)
[2023-03-27] MEDS: QUEtiapine Fumarate 50 MG TABLET PO (21:34)
[2023-03-28] MEDS: vancomycin HCL 125 MG CAPSULE PO ×4 (01:41→18:42)
[2023-03-28 04:00] VITALS: BP 158/77; PULSE 86; RESP 16; TEMP 36; O2SAT 97
[2023-03-28] MEDS: Omeprazole 20 MG CAPSULE.DR PO ×2 (05:05→16:34)
[2023-03-28] MEDS: guaiFENesin 200 MG/10 ML 10 ML LIQUID PO (05:05)
[2023-03-28 06:51] VITALS: BP 150/70; PULSE 72; RESP 17; TEMP 35.5; O2SAT 96
[2023-03-28] MEDS: Multivitamin TABLET 1 TAB PO (07:56)
[2023-03-28] MEDS: Metoprolol Tartrate 25 MG TABLET PO ×2 (07:56→21:37)
[2023-03-28] MEDS: Aspirin Enteric Coated 81 MG TABLET.DR PO (07:56)
[2023-03-28] MEDS: predniSONE 20 MG TABLET 40 MG PO (07:56)
[2023-03-28] MEDS: Ferrous Sulfate 324 MG TABLET.DR PO (07:56)
[2023-03-28] MEDS: risperiDONE 0.25 MG TABLET PO (07:56)
[2023-03-28] MEDS: Potassium Chloride ER 20 MEQ TAB.ER.PRT PO (07:56)
[2023-03-28] MEDS: Thiamine HCL 100 MG TABLET PO ×2 (07:57→21:36)
[2023-03-28] MEDS: Cyanocobalamin (Vitamin B-12) 1,000 MCG TABLET 1000 MCG PO (07:57)
--- NOTE | 2023-03-28 10:46 | P.PNIM_ITS ---
Subjective Subjective Date of Service: 03/28/23 Interval History: wheezing, coughing with sputum but dyspnea improved no longer refusing labs and meds watery diarrhea, improving Review of Systems Review of Systems: Yes all other systems are reviewed and are negative Physical Exam 2 Vital Signs: Vital Signs: Last Vital Signs Temp 96 F L 03/28/23 06:51 Pulse 72 03/28/23 06:51 Resp 17 03/28/23 06:51 BP 150/70 H 03/28/23 06:51 Pulse Ox 96 03/28/23 06:51 O2 Del Method Room Air 03/28/23 06:51 BMI result Body Mass Index 28.2 Gen: in no acute distress HEENT: sclera anicteric, moist mucus membranes Neck: supple Lungs: bilateral expiratory wheezing, a few inspiratory crackles as well Heart: regular rate and rhythm, no murmurs Abd: soft, nontender Ext: no edema Skin: warm/well-perfused Neuro: alert and oriented to self and place, no focal findings Psych: appropriate affect Objective Data Active Medications Acetaminophen (Acetaminophen 325 Mg Tablet) 650 mg PO Q6H PRN PRN Reason: Pain, Mild (Pain Scale 1-3) Albuterol/Ipratropium (Albuterol/Iprat 2.5/0.5mg 3 Ml Ampul.Neb) 3 ml INHALE RQ4H WHILE AWAKE [facility] Aspirin (Aspirin Enteric Coated 81 Mg Tablet.) 81 mg PO DAILY [facility] Last Admin: 03/28/23 07:56 Dose: 81 mg Documented By: BUCKY Atorvastatin Calcium (Atorvastatin Calcium 40 Mg Tablet) 40 mg PO BEDTIME [facility] Last Admin: 03/27/23 21:33 Dose: 40 mg Documented By: KIESHA Cefuroxime Axetil (Cefuroxime Axetil 500 Mg Tablet) 500 mg PO BID [facility] Cyanocobalamin (Cyanocobalamin (Vitamin B-12) 1,000 Mcg Tablet) 1,000 mcg PO DAILY [facility] Last Admin: 03/28/23 07:57 Dose: 1,000 mcg Documented By: BUCKY Docusate Sodium (Docusate Sodium 100 Mg Capsule) 100 mg PO DAILY PRN PRN Reason: Constipation Doxycycline Monohydrate (Doxycycline Monohydrate 100 Mg Capsule) 100 mg PO BID [facility] Enoxaparin Sodium (Enoxaparin Sodium 40 Mg/0.4 Ml Syringe) 40 mg SUBCUT Q24H [facility] Last Admin: 03/27/23 21:46 Dose: Not Given Documented By: KIESHA Non-Admin Reason: Patient Refused Ferrous Sulfate (Ferrous Sulfate 324 Mg Tablet.) 324 mg PO DAILY [facility] Last Admin: 03/28/23 07:56 Dose: 324 mg Documented By: BUCKY Fluticasone Propionate (Fluticasone Propionate Nasal 16 Gm [place]) 1 spray NOSTRIL-B BID [facility] Last Admin: 03/28/23 07:57 Dose: Not Given Documented By: BUCKY Non-Admin Reason: Patient Refused Guaifenesin (Guaifenesin 200 Mg/10 Ml 10 Ml Liquid) 10 ml PO Q4H PRN PRN Reason: Cough Last Admin: 03/28/23 05:05 Dose: 10 ml Documented By: KIESHA Levalbuterol HCl (Levalbuterol Hcl 1.25 Mg/3 Ml Vial.Alysha) 1.25 mg INHALE Q2H PRN PRN Reason: shortness of breath or wheez Loperamide HCl (Loperamide Hcl 2 Mg Capsule) 2 mg PO Q4H PRN PRN Reason: diarrhea Metoprolol Tartrate (Metoprolol Tartrate 25 Mg Tablet) 25 mg PO BID [facility]; Protocol Last Admin: 03/28/23 07:56 Dose: 25 mg Documented By: BUCKY Montelukast Sodium (Montelukast Sodium 10 Mg Tablet) 10 mg PO BEDTIME [facility] Last Admin: 03/27/23 21:33 Dose: 10 mg Documented By: KIESHA Multivitamins/Vitamin C (Multivitamin Tablet) 1 tab PO DAILY [facility] Last Admin: 03/28/23 07:56 Dose: 1 tab Documented By: BUCKY Non-Formulary Medication (Umeclidinium-Vilanterol [Anoro Ellipta]) 1 each INHALE DAILY [facility] Omeprazole (Omeprazole 20 Mg Capsule.) 20 mg PO BID@0630,1630 [facility] Last Admin: 03/28/23 05:05 Dose: 20 mg Documented By: KIESHA Ondansetron HCl (Ondansetron Hcl 4 Mg/2 Ml Vial) 4 mg IVPUSH Q8H PRN PRN Reason: Nausea and Vomiting Potassium Chloride (Potassium Chloride Er 20 Meq Tab.Er.Prt) 20 meq PO DAILY [facility] Last Admin: 03/28/23 07:56 Dose: 20 meq Documented By: BUCKY Prednisone (Prednisone 20 Mg Tablet) 40 mg PO DAILY [facility] Last Admin: 03/28/23 07:56 Dose: 40 mg Documented By: BUCKY Quetiapine Fumarate (Quetiapine Fumarate 50 Mg Tablet) 50 mg PO BEDTIME [facility] Last Admin: 03/27/23 21:34 Dose: 50 mg Documented By: KIESHA Risperidone (Risperidone 0.25 Mg Tablet) 0.25 mg PO DAILY [facility] Last Admin: 03/28/23 07:56 Dose: 0.25 mg Documented By: BUCKY Sodium Chloride (0.9 % Sodium Chloride Flush 3 Ml Syringe) 3 ml IVFLUSH QSHIFT [facility] Last Admin: 03/28/23 07:57 Dose: Not Given Documented By: BUCKY Non-Admin Reason: No Access Thiamine HCl (Thiamine Hcl 100 Mg Tablet) 100 mg PO BID [facility] Last Admin: 03/28/23 07:57 Dose: 100 mg Documented By: BUCKY Vancomycin HCl (Vancomycin Hcl 125 Mg Capsule) 125 mg PO Q6H [facility] Last Admin: 03/28/23 05:05 Dose: 125 mg Documented By: KIESHA Labs 03/27/23 12:02 03/27/23 12:02 Labs: Laboratory Results - last 24 hr 03/27/23 03/27/23 11:41 12:02 MCV 94.0 MCH 30.6 MCHC 32.5 RDW 14.6 Plt Count 160 MPV 10.7 Absolute Nucleated RBC 0.000 Nucleated RBC % (auto) 0.0 Anion Gap 14 Estim Creat Clear Calc 33.7 Estimated GFR 50 Random Glucose 111 Calcium 9.6 D Magnesium 2.3 Procalcitonin 0.52 C. difficile Tox B Gene POSITIVE A* C. difficile Toxin A&B Negative C. difficile Interpret SEE NOTE Microbiology Microbiology Results: Microbiology 03/27/23 10:25 Urine Culture - Preliminary Urine clean catch - Urine mcdonald top Culture in progress. 03/25/23 17:07 Blood Culture - Preliminary Blood - Venous No growth after 48 hours. 03/25/23 16:41 Blood Culture - Preliminary Blood - Venous No growth after 48 hours. Assessment and Plan (1) Severe sepsis: Status: Acute Plan d4 82yo with COPD on prn home O2, CAD, HFrEF, HLD, pAF not on AC, hx VRE UTI, dementia presenting with confusion admitted for severe sepsis with lactic acidosis due to pneumonia pneumonia, PSI score 124 [class IV] - got pip-estefany 03/25-03/27 + levofloxacin 03/27-03/28 due to hx of Pseudomonas PNA; switch to doxy + cefuroxime 03/28-03/31 - BCx negative, Legionella + pneumococcal UAgs pending, check sputum Cx, trend PCT COPD exacerbation - prednisone 03/28- [refused yesterday], standing/prn nebs, antibiotics as above - continue Anoro, montelukast C diff colitis - PO vancomycin 03/27-04/05 hypoK - replete PO, recheck level in AM pAF - continue metoprolol tartrate, not on AC due to hx severe bleeding CAD - continue ASA, statin, metoprolol chronic anemia - continue FeSO4 chronic HFrEF - continue metoprolol tartrate, hold torsemide, appears euvolemic dementia - continue quetiapine, risperidone - Psych consult for competency requested by daughter, OT consult for ACL pending - LINING CLOSER consulted: NDD2 solids, thin liquids ?VTE ppx - enoxaparin dispo - likely home with VNA in next 1-2d In my clinical judgment, the patient requires continued inpatient hospitalization for the following reasons: C. difficile colitis with uncontrolled diarrhea, COPD with uncontrolled wheezing Time Spent With Patient Time: Total time managing care of this patient today __40__ minutes. Quality Stroke Does the patient have a stroke diagnosis?: No VTE Prior VTE?: No VTE Risk Level:: Medical - moderate - high VTE Device Contraindication: Treatment Not Indicated VTE Drug Contraindication: N/A - Med Ordered
[2023-03-28] MEDS: Albuterol/Iprat 2.5/0.5MG 3 ML AMPUL.NEB INHALE ×2 (11:36→19:39)
[2023-03-28 11:38] VITALS: PULSE 107; RESP 20; O2SAT 98
[2023-03-28] MEDS: Doxycycline Monohydrate 100 MG CAPSULE PO ×2 (12:09→21:36)
[2023-03-28 12:20] LABS: Anion Gap 14 (12-20); Blood Urea Nitrogen 14 mg/dL (9-16); Calcium 9.4 mg/dL (8.4-10.2); Carbon Dioxide 22 mmol/L (22-29); Chloride 107 mmol/L (96-108); Creatinine Clr Calc Pharmacy 37.7; Estimated Glomerular Filt Rate 57; Glucose Random 184 mg/dL (60-115); Magnesium 2.2 mg/dL (1.6-2.6); Potassium 4.4 mmol/L (3.3-5.1); Sodium 139 mmol/L (135-145)
[2023-03-28 12:24] LABS: Procalcitonin 0.28 ng/mL
[2023-03-28] MEDS: Potassium Chloride ER 20 MEQ TAB.ER.PRT 40 MEQ PO (13:45)
--- NOTE | 2023-03-28 15:56 | PM.PSYCN ---
History of Present Illness Date of Service: 03/28/2023 Chief Complaint: pneumonia, sepsis Reason for Consult: capacity Requesting physician: Torin Marcial Discussed with referring provider: Yes Sources of Information: patient interviewed, chart reviewed and crisis/core team assessment reviewed HPI Narrative: Ms. Mercado is a 82 year-old woman who brought to [facility] by family due to increase confusion. Pt found to have sepsis s/s to pneumonia. Psychiatric consult ordered for capacity. Pt seen in room. She is sitting comfortably. She reports she has pneumonia and was treated for this. Pt reports she is currently in her home and although this global technical writer asked her few more times to clarify, pt continued to report that she was at home. She did not know the year. She did know the month March. She reports that she is feeling better and awaiting to be picked up today, which is not the case as she is not being discharged today. No signs of visual or auditory hallucinations. No overt delusional content noted or reported. [facility] Medical History Pneumonia Atrial flutter Pyuria Atelectasis of right lung Encephalopathy chronic History of infection with vancomycin resistant Enterococcus (VRE) Congestive heart failure Heart failure Dyspnea Paroxysmal A-fib Aspiration pneumonia COPD (chronic obstructive pulmonary disease) A-fib Acute encephalopathy Anemia Pseudomonas respiratory infection CAD (coronary artery disease) Acute respiratory failure with hypoxia Chronic dyspnea Acute hypokalemia Atrial fibrillation with RVR Anemia GI bleed Pulmonary nodules COPD (chronic obstructive pulmonary disease) Bronchiectasis Pseudomonal pneumonia Surgical History H/O umbilical hernia repair (09/18/22) History of quadruple bypass History of hip replacement History of knee replacement History of cholecystectomy Diagnostics Vital Signs (24Hr): Vital Signs - 24 hr 03/27/23 20:00 03/27/23 20:04 03/28/23 04:00 Temperature 98 F 96.8 F Pulse Rate 88 95 86 Respiratory Rate 16 24 H 16 Blood Pressure 158/77 H Pulse Oximetry 98 97 Oxygen Delivery Method Room Air Room Air 03/28/23 06:51 03/28/23 11:38 Temperature 96 F L Pulse Rate 72 107 H Respiratory Rate 17 20 Blood Pressure 150/70 H Pulse Oximetry 96 Oxygen Delivery Method Room Air BMI result Body Mass Index 28.2 Labs 03/27/23 12:02 03/28/23 11:23 Labs: Laboratory Results - last 48 hr 03/27/23 03/27/23 03/28/23 11:41 12:02 11:23 WBC 8.4 RBC 3.50 L Hgb 10.7 L Hct 32.9 L MCV 94.0 MCH 30.6 MCHC 32.5 RDW 14.6 Plt Count 160 MPV 10.7 Absolute Nucleated RBC 0.000 Nucleated RBC % (auto) 0.0 Sodium 142 139 Potassium 3.1 L 4.4 D Chloride 105 107 Carbon Dioxide 26 22 Anion Gap 14 14 BUN 18 H 14 Creatinine 1.05 0.94 Estim Creat Clear Calc 33.7 37.7 Estimated GFR 50 57 Random Glucose 111 184 H Calcium 9.6 D 9.4 Magnesium 2.3 2.2 Procalcitonin 0.52 0.28 C. difficile Tox B Gene POSITIVE A* C. difficile Toxin A&B Negative C. difficile Interpret SEE NOTE Imaging Radiology Impressions: ITS Impressions Head CT 03/25/23 16:59 IMPRESSION: No acute intracranial hemorrhage or infarct. Abdomen/Pelvis CT 03/25/23 17:00 IMPRESSION: Bilateral lower lobe interstitial and alveolar infiltrates, right worse than left. No acute finding within the abdomen or pelvis. Chest X-Ray 03/25/23 18:13 IMPRESSION: Bilateral basilar opacities millicuries of atelectasis or infiltrate. Follow-up recommended Mental Status Exam Mental Status Exam Narrative: Appearance: wearing hospital gown, fair hygiene, in NAD Behavior: cooperative Psychomotor: no agitation or retardation noted Speech: clear normal rate/rhythm/volume, spontaneous TP: mostly linear TC: thinking that she is at home awaiting someone to come and pick her up Mood: good Affect: congruent SI: none HI: none VH/AH: none Delusions: none Memory/cog: alert, not oriented to place, year or situation. Medications Medications Current Medications Acetaminophen (Acetaminophen 325 Mg Tablet) 650 mg PO Q6H PRN PRN Reason: Pain, Mild (Pain Scale 1-3) Albuterol/Ipratropium (Albuterol/Iprat 2.5/0.5mg 3 Ml Ampul.Neb) 3 ml INHALE RQ4H WHILE AWAKE [facility] Last Admin: 03/28/23 15:51 Dose: Not Given Aspirin (Aspirin Enteric Coated 81 Mg Tablet.) 81 mg PO DAILY [facility] Last Admin: 03/28/23 07:56 Dose: 81 mg Atorvastatin Calcium (Atorvastatin Calcium 40 Mg Tablet) 40 mg PO BEDTIME [facility] Last Admin: 03/27/23 21:33 Dose: 40 mg Cefuroxime Axetil (Cefuroxime Axetil 500 Mg Tablet) 500 mg PO BID [facility] Last Admin: 03/28/23 12:09 Dose: 500 mg Cyanocobalamin (Cyanocobalamin (Vitamin B-12) 1,000 Mcg Tablet) 1,000 mcg PO DAILY [facility] Last Admin: 03/28/23 07:57 Dose: 1,000 mcg Docusate Sodium (Docusate Sodium 100 Mg Capsule) 100 mg PO DAILY PRN PRN Reason: Constipation Doxycycline Monohydrate (Doxycycline Monohydrate 100 Mg Capsule) 100 mg PO BID [facility] Last Admin: 03/28/23 12:09 Dose: 100 mg Enoxaparin Sodium (Enoxaparin Sodium 40 Mg/0.4 Ml Syringe) 40 mg SUBCUT Q24H [facility] Last Admin: 03/27/23 21:46 Dose: Not Given Ferrous Sulfate (Ferrous Sulfate 324 Mg Tablet.) 324 mg PO DAILY [facility] Last Admin: 03/28/23 07:56 Dose: 324 mg Fluticasone Propionate (Fluticasone Propionate Nasal 16 Gm [place]) 1 spray NOSTRIL-B BID [facility] Last Admin: 03/28/23 07:57 Dose: Not Given Guaifenesin (Guaifenesin 200 Mg/10 Ml 10 Ml Liquid) 10 ml PO Q4H PRN PRN Reason: Cough Last Admin: 03/28/23 05:05 Dose: 10 ml Levalbuterol HCl (Levalbuterol Hcl 1.25 Mg/3 Ml Vial.Neb) 1.25 mg INHALE Q2H PRN PRN Reason: shortness of breath or wheez Loperamide HCl (Loperamide Hcl 2 Mg Capsule) 2 mg PO Q4H PRN PRN Reason: diarrhea Metoprolol Tartrate (Metoprolol Tartrate 25 Mg Tablet) 25 mg PO BID [facility]; Protocol Last Admin: 03/28/23 07:56 Dose: 25 mg Montelukast Sodium (Montelukast Sodium 10 Mg Tablet) 10 mg PO BEDTIME [facility] Last Admin: 03/27/23 21:33 Dose: 10 mg Multivitamins/Vitamin C (Multivitamin Tablet) 1 tab PO DAILY [facility] Last Admin: 03/28/23 07:56 Dose: 1 tab Non-Formulary Medication (Umeclidinium-Vilanterol [Anoro Ellipta]) 1 each INHALE DAILY [facility] Omeprazole (Omeprazole 20 Mg Capsule.Dr) 20 mg PO BID@0630,1630 [facility] Last Admin: 03/28/23 05:05 Dose: 20 mg Ondansetron HCl (Ondansetron Hcl 4 Mg/2 Ml Vial) 4 mg IVPUSH Q8H PRN PRN Reason: Nausea and Vomiting Potassium Chloride (Potassium Chloride Er 20 Meq Tab.Er.Prt) 20 meq PO DAILY [facility] Last Admin: 03/28/23 07:56 Dose: 20 meq Prednisone (Prednisone 20 Mg Tablet) 40 mg PO DAILY [facility] Last Admin: 03/28/23 07:56 Dose: 40 mg Quetiapine Fumarate (Quetiapine Fumarate 50 Mg Tablet) 50 mg PO BEDTIME [facility] Last Admin: 03/27/23 21:34 Dose: 50 mg Risperidone (Risperidone 0.25 Mg Tablet) 0.25 mg PO DAILY [facility] Last Admin: 03/28/23 07:56 Dose: 0.25 mg Sodium Chloride (0.9 % Sodium Chloride Flush 3 Ml Syringe) 3 ml IVFLUSH QSHIFT [facility] Last Admin: 03/28/23 15:48 Dose: Not Given Thiamine HCl (Thiamine Hcl 100 Mg Tablet) 100 mg PO BID [facility] Last Admin: 03/28/23 07:57 Dose: 100 mg Vancomycin HCl (Vancomycin Hcl 125 Mg Capsule) 125 mg PO Q6H [facility] Last Admin: 03/28/23 12:09 Dose: 125 mg Allergies Allergies Allergy/AdvReac Type Severity Reaction Status Date / Time carvedilol Allergy Shortness Verified 01/24/23 14:59 of Breath sertraline [From Zoloft] Allergy Shortness Verified 01/24/23 14:59 of Breath spironolactone Allergy Shortness Verified 01/24/23 14:59 of Breath adhesive tape AdvReac Severe skin tears Verified 01/24/23 14:59 mirtazapine AdvReac Severe psychotic Verified 01/24/23 14:59 episode Assessment & Plan Assessment & Plan (1) Cognitive impairment: Status: Acute Code(s): R41.17 - Other symptoms and signs involving cognitive functions and awareness Plan Mrs. Mercado is a 82 year-old woman brought in by family due to altered mental status, found to have sepsis secondary to pneumonia. Assessment for capacity to make medical decisions was requested- pt currently does not show complete understanding of medical condition, recommend treatment or appreciation of risks versus benefits or accepting or rejecting proposed treatment intervention. It is possible that delirium is slowly clearing and pt would present as more oriented, however, I do suspect underlying major neurocognitive disorder. At this moment, pt does NOT have capacity to make medical decisions, please consider invoking HCP. Consider formal work up for major neurocognitive disorder outpatient. Total time managing care of this patient today ____ minutes.
--- NOTE | 2023-03-28 16:26 | MHC.SL.DTX ---
Dysphagia Diet modifications: Last documented Solid diet consistencies: Chopped/Advanced (NDD3) Last documented Liquid consistency: Thin Last documented Medication Administration: Changes made to current diet?: Liquid Consistency and Strategies: Liquid Intake Recommendation: Thin Compensatory Strategies for Safe Swallow: Small Sips Compensatory Strategies for Safe Swallow(b): Sitting Upright (90 deg) Double Swallow No Straw Small Bites and Sips Rate of Ingestion Change Avoid Specific Foods Solid Food Consistency: Dietary Recommendations: Chopped/Advanced (NDD3) Additional Modifications to Solids: Recommend Chopped/Advanced Solids (NDD3) and THIN liquids, pills WHOLE in PUREE or LIQUID per pt's tolerance/preference. Recommend aspiration precautions and intermittent supervision. Oral Medication Intake: Whole with Puree Strategies and Precautions to be Taken for Safe Swallow: Sitting Upright (90 deg) Double Swallow No Straw Small Bites and Sips Rate of Ingestion Change Avoid Specific Foods Supervision While Eating and/Drinking: Intermittent Supervision Foods to Avoid: Mixed textures Swallowing Recommended Treatments: Compens. Strategy Educat. Level of Impact on: Daily activities: Interpersonal interactions: Education: Employment: Community: Prognosis for Improvement: Good Recommendation for Speech: Inpatient Speech Therapy Comment: JANITORIAL SERVICES SUPERVISOR to f/u 1-2x Frequency/Duration: Date Range for Service Req: Timeline to reassess: Additional Comments: Treatment: Pt more alert today. Sitting upright in her recliner. She is administered Thin Liquids via cup and straw with no overt s/s of aspiration. She tolerated Puree and Ground/Mech Altered Solids with appropriate timing and clearance with no overt s/s of aspiration. She was administered x2 small bites of an advanced solid with more prolonged preparation time, but adequate clearance and no overt s/s of aspiration. She is complaintive of her current diet (NDD2). JANITORIAL SERVICES SUPERVISOR agrees to trial upgrade to NDD3 and follow-up to monitor tolerance. Order changed in [facility], RN, MD, and RD made aware. Assessment: Turning Lathe Tender Clinican/Clinical Fellow: No Supervisory Statement: I have reviewed and agree with the student/clinical fellow's documentation: N/A Speech Language Pathologist: Dejan Ngael M.A., [facility]-JANITORIAL SERVICES SUPERVISOR
[2023-03-28 19:39] VITALS: PULSE 101; RESP 20; O2SAT 98
[2023-03-28 20:00] VITALS: BP 154/93; PULSE 122; RESP 18; TEMP 36.4; O2SAT 97
[2023-03-28] MEDS: Atorvastatin Calcium 40 MG TABLET PO (21:36)
[2023-03-28] MEDS: QUEtiapine Fumarate 50 MG TABLET PO (21:36)
[2023-03-28] MEDS: Montelukast Sodium 10 MG TABLET PO (21:36)
[2023-03-29] VITALS (7 sets, daily range): BP systolic 108–164; BP diastolic 60–77; PULSE 84–102; RESP 16–21; TEMP 36–36.6; O2SAT 94–98
[2023-03-29] MEDS: guaiFENesin 200 MG/10 ML 10 ML LIQUID PO (01:55)
[2023-03-29] MEDS: vancomycin HCL 125 MG CAPSULE PO ×3 (01:55→19:24)
[2023-03-29] MEDS: levalbuterol HCL 1.25 MG/3 ML VIAL.NEB INHALE ×2 (02:50→19:35)
[2023-03-29] MEDS: Omeprazole 20 MG CAPSULE.DR PO (05:47)
[2023-03-29 05:51] LABS: Anion Gap 13 (12-20); Blood Urea Nitrogen 16 mg/dL (9-16); Calcium 9.6 mg/dL (8.4-10.2); Carbon Dioxide 23 mmol/L (22-29); Chloride 111 mmol/L (96-108); Creatinine Clr Calc Pharmacy 38.4; Estimated Glomerular Filt Rate 58; Glucose Random 104 mg/dL (60-115); Sodium 143 mmol/L (135-145)
[2023-03-29] MEDS: Albuterol/Iprat 2.5/0.5MG 3 ML AMPUL.NEB INHALE ×2 (08:44→11:03)
--- NOTE | 2023-03-29 09:54 | P.PNIM_ITS ---
Subjective Subjective Date of Service: 03/29/23 Interval History: wheezing, coughing with sputum but dyspnea improved no longer refusing labs and meds, but refusing PT watery diarrhea, improving No capacity per psychiatry Review of Systems Review of Systems: Yes all other systems are reviewed and are negative Physical Exam 2 Vital Signs: Vital Signs: Last Vital Signs Temp 96.9 F 03/29/23 08:00 Pulse 85 03/29/23 08:44 Resp 16 03/29/23 08:44 BP 108/60 03/29/23 08:00 Pulse Ox 97 03/29/23 08:00 O2 Del Method Room Air 03/29/23 08:00 BMI result Body Mass Index 28.2 Constitutional - Awake and Alert, No apparent distress Eyes - PERRLA, EOMI Cardiovascular - S1S2, RRR, No edema Respiratory - Normal lung expansion, Normal respiratory effort, No respiratory distress, distant expiratory wheezing Gastrointestinal - NT / ND; +BS; No rebound or guarding Extremities - no calf tenderness bilaterally, no swelling Skin - Warm/Dry Neurological - Alert & oriented x3 Psychological - Appropriate affect Objective Data Active Medications Acetaminophen (Acetaminophen 325 Mg Tablet) 650 mg PO Q6H PRN PRN Reason: Pain, Mild (Pain Scale 1-3) Albuterol/Ipratropium (Albuterol/Iprat 2.5/0.5mg 3 Ml Ampul.Neb) 3 ml INHALE RQ4H WHILE AWAKE COUNT INCLUDES THE [facility] Last Admin: 03/29/23 08:44 Dose: 3 ml Documented By: KAY Aspirin (Aspirin Enteric Coated 81 Mg Tablet.) 81 mg PO DAILY COUNT [facility]CLUDES [facility] Last Admin: 03/28/23 07:56 Dose: 81 mg Documented By: BUCKY Atorvastatin Calcium (Atorvastatin Calcium 40 Mg Tablet) 40 mg PO BEDTIME COUNT INCLUDES [facility] Last Admin: 03/28/23 21:36 Dose: 40 mg Documented By: FELICIA Cefuroxime Axetil (Cefuroxime Axetil 500 Mg Tablet) 500 mg PO BID COUNT INCLUDES THE [facility] Last Admin: 03/28/23 21:36 Dose: 500 mg Documented By: FELICIA Cyanocobalamin (Cyanocobalamin (Vitamin B-12) 1,000 Mcg Tablet) 1,000 mcg PO DAILY COUNT INCLUDES [facility] Last Admin: 03/28/23 07:57 Dose: 1,000 mcg Documented By: BUCKY Docusate Sodium (Docusate Sodium 100 Mg Capsule) 100 mg PO DAILY PRN PRN Reason: Constipation Doxycycline Monohydrate (Doxycycline Monohydrate 100 Mg Capsule) 100 mg PO BID COUNT INCLUDES [facility] Last Admin: 03/28/23 21:36 Dose: 100 mg Documented By: FELICIA Enoxaparin Sodium (Enoxaparin Sodium 40 Mg/0.4 Ml Syringe) 40 mg SUBCUT Q24H COUNT INCLUDES THE [facility] Last Admin: 03/28/23 18:42 Dose: Not Given Documented By: ALEXANDER Non-Admin Reason: Patient Refused Ferrous Sulfate (Ferrous Sulfate 324 Mg Tablet.Dr) 324 mg PO DAILY COUNT INCLUDES [facility] Last Admin: 03/28/23 07:56 Dose: 324 mg Documented By: BUCKY Fluticasone Propionate (Fluticasone Propionate Nasal 16 Gm [place]) 1 spray NOSTRIL-B BID COUNT INCLUDES THE [facility] Last Admin: 03/28/23 21:51 Dose: Not Given Documented By: FELICIA Non-Admin Reason: Patient Refused Guaifenesin (Guaifenesin 200 Mg/10 Ml 10 Ml Liquid) 10 ml PO Q4H PRN PRN Reason: Cough Last Admin: 03/29/23 01:55 Dose: 10 ml Documented By: FELICIA Levalbuterol HCl (Levalbuterol Hcl 1.25 Mg/3 Ml Vial.Neb) 1.25 mg INHALE Q2H PRN PRN Reason: shortness of breath or wheez Last Admin: 03/29/23 02:50 Dose: 1.25 mg Documented By: SALLY Loperamide HCl (Loperamide Hcl 2 Mg Capsule) 2 mg PO Q4H PRN PRN Reason: diarrhea Metoprolol Tartrate (Metoprolol Tartrate 25 Mg Tablet) 25 mg PO BID COUNT INCLUDES THE [facility]; Protocol Last Admin: 03/28/23 21:37 Dose: 25 mg Documented By: FELICIA Montelukast Sodium (Montelukast Sodium 10 Mg Tablet) 10 mg PO BEDTIME COUNT INCLUDES [facility] Last Admin: 03/28/23 21:36 Dose: 10 mg Documented By: FELICIA Multivitamins/Vitamin C (Multivitamin Tablet) 1 tab PO DAILY COUNT INCLUDES [facility] Last Admin: 03/28/23 07:56 Dose: 1 tab Documented By: BUCKY Non-Formulary Medication (Umeclidinium-Vilanterol [Anoro Ellipta]) 1 each INHALE DAILY COUNT INCLUDES THE [facility] Omeprazole (Omeprazole 20 Mg Capsule.) 20 mg PO BID@0630,1630 COUNT [facility]CLUDES [facility] Last Admin: 03/29/23 05:47 Dose: 20 mg Documented By: FELICIA Ondansetron HCl (Ondansetron Hcl 4 Mg/2 Ml Vial) 4 mg IVPUSH Q8H PRN PRN Reason: Nausea and Vomiting Potassium Chloride (Potassium Chloride Er 20 Meq Tab.Er.Prt) 20 meq PO DAILY COUNT INCLUDES THE [facility] Last Admin: 03/28/23 07:56 Dose: 20 meq Documented By: BUCKY Prednisone (Prednisone 20 Mg Tablet) 40 mg PO DAILY COUNT INCLUDES [facility] Last Admin: 03/28/23 07:56 Dose: 40 mg Documented By: BUCKY Quetiapine Fumarate (Quetiapine Fumarate 50 Mg Tablet) 50 mg PO BEDTIME COUNT INCLUDES [facility] Last Admin: 03/28/23 21:36 Dose: 50 mg Documented By: FELICIA Risperidone (Risperidone 0.25 Mg Tablet) 0.25 mg PO DAILY COUNT INCLUDES [facility] Last Admin: 03/28/23 07:56 Dose: 0.25 mg Documented By: BUCKY Sodium Chloride (0.9 % Sodium Chloride Flush 3 Ml Syringe) 3 ml IVFLUSH QSHIFT COUNT INCLUDES THE [facility] Last Admin: 03/29/23 07:18 Dose: Not Given Documented By: SAIDA Non-Admin Reason: No Access Thiamine HCl (Thiamine Hcl 100 Mg Tablet) 100 mg PO BID COUNT INCLUDES [facility] Last Admin: 03/28/23 21:36 Dose: 100 mg Documented By: FELICIA Vancomycin HCl (Vancomycin Hcl 125 Mg Capsule) 125 mg PO Q6H COUNT INCLUDES [facility] Last Admin: 03/29/23 01:55 Dose: 125 mg Documented By: FELICIA Labs 03/27/23 12:02 03/29/23 05:03 Labs: Laboratory Results - last 24 hr 03/28/23 03/29/23 11:23 05:03 Hold Purple Top SEE NOTE Anion Gap 14 13 Estim Creat Clear Calc 37.7 38.4 Estimated GFR 57 58 Random Glucose 184 H 104 Calcium 9.4 9.6 Magnesium 2.2 Procalcitonin 0.28 Microbiology Microbiology Results: Microbiology 03/27/23 10:25 Urine Culture - Preliminary Urine clean catch - Urine mcdonald top Culture in progress. Assessment and Plan (1) Severe sepsis: Status: Acute Plan d4 82yo with COPD on prn home O2, CAD, HFrEF, HLD, pAF not on AC, hx VRE UTI, dementia presenting with confusion admitted for severe sepsis with lactic acidosis due to pneumonia pneumonia, PSI score 124 [class IV] - got pip-estefany 03/25-03/27 + levofloxacin 03/27-03/28 due to hx of Pseudomonas PNA; switch to doxy + cefuroxime 03/28-03/31 - BCx negative, Legionella + pneumococcal UAgs pending, check sputum Cx, trend PCT COPD exacerbation - prednisone 03/28- [refused yesterday], standing/prn nebs, antibiotics as above - continue Anoro, montelukast 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 Discussed with ID, treat given symptoms - PO vancomycin 03/27-04/05 hypoK- resolved - K repleted pAF- rate controlled - continue metoprolol tartrate, not on AC due to hx severe bleeding CAD - continue ASA, statin, metoprolol chronic anemia - continue FeSO4 chronic HFrEF - continue metoprolol tartrate, hold torsemide, appears euvolemic dementia - continue quetiapine, risperidone - Psych consult for competency requested by daughter- pt does not have capacity - ACCOUNTS PAYABLE CLERK consulted: NDD2 solids, thin liquids ?VTE ppx - enoxaparin dispo - likely home with VNA tomorrow if continued improvement In my clinical judgment, the patient requires continued inpatient hospitalization for the following reasons: C. difficile colitis with uncontrolled diarrhea, COPD with uncontrolled wheezing Time Spent With Patient Time: Total time managing care of this patient today ____ minutes. Quality Stroke Does the patient have a stroke diagnosis?: No VTE Prior VTE?: No VTE Risk Level:: Medical - moderate - high VTE Device Contraindication: Treatment Not Indicated VTE Drug Contraindication: N/A - Med Ordered
[2023-03-29] MEDS: Aspirin Enteric Coated 81 MG TABLET.DR PO (10:47)
[2023-03-29] MEDS: Thiamine HCL 100 MG TABLET PO ×2 (10:48→21:29)
[2023-03-29] MEDS: predniSONE 20 MG TABLET 40 MG PO (10:49)
[2023-03-29] MEDS: Cyanocobalamin (Vitamin B-12) 1,000 MCG TABLET 1000 MCG PO (10:50)
[2023-03-29] MEDS: Ferrous Sulfate 324 MG TABLET.DR PO (10:51)
[2023-03-29] MEDS: Doxycycline Monohydrate 100 MG CAPSULE PO ×2 (10:51→21:24)
[2023-03-29] MEDS: Metoprolol Tartrate 25 MG TABLET PO ×2 (10:52→21:20)
[2023-03-29] MEDS: Potassium Chloride ER 20 MEQ TAB.ER.PRT PO (10:53)
--- NOTE | 2023-03-29 13:21 | MHC.SL.SWA ---
Risk of Aspiration Due to: Neurological Condition History of Pneumonia Reduced Cognition Dysphasia Diet Status: UPGRADE Liquid Consistency and Strategies for Safe Swallow: Liquid Intake Recommendation: Thin Liquid Intake Strategies: Small Sips Solid Food Consistency: Dietary Recommendations: Regular Oral Medication Intake: Whole with Liquid Please contact the pharmacy regarding appropriate crushable or liquid drug formulations that are available whenever modified delivery is recommended. Compensatory Strategies and Precautions to be Taken for Safe Swallow: Sitting Upright (90 deg) Double Swallow No Straw Small Bites and Sips Rate of Ingestion Change Avoid Specific Foods Supervision While Eating and Drinking for Safe Swallow: Total Assistance (1:1) Swallowing Recommended Treatments: Compens. Strategy Educat. Recommendation for Speech: Inpatient Speech Therapy Patient upgraded to chopped/advanced yesterday and refusing to eat chopped lunch tray on this date. Patient adamantly opposed to modified diet textures. Patient tolerated regular lunch tray w/ ELECTRIC MOTOR TESTER on this date. Recommend UPGRADE to REGULAR solids. Continue w/ thin liquids. Pills whole w/ liquid. Per conversation with PA, PA discussed risk of aspiration w/ patient's daughter. Patient's daughter in agreement with regular diet w/ risk of aspiration. Patient requires ASSISTANCE w/ TRAY SETUP (i.e. opening containers, putting drink in cup, cutting burger in 1/2, etc). Recommend 1 f/u with ELECTRIC MOTOR TESTER to ensure toleration of diet upgrade. Motor Tune Up Specialist Clinican/Clinical Fellow: No Supervisory Statement: I have reviewed and agree with the student/clinical fellow's documentation: N/A Speech Language Pathologist: Kamila Finney M.A., CCC-ELECTRIC MOTOR TESTER
--- NOTE | 2023-03-29 15:14 | MHC.CM.PN ---
per rounds pt may be ready for dc tomorrow hvns notified
[2023-03-29] MEDS: Acetaminophen 325 MG TABLET 650 MG PO (19:23)
[2023-03-29] MEDS: QUEtiapine Fumarate 50 MG TABLET PO (21:27)
[2023-03-29] MEDS: Montelukast Sodium 10 MG TABLET PO (21:28)
[2023-03-29] MEDS: Atorvastatin Calcium 40 MG TABLET PO (21:28)
[2023-03-30] MEDS: Acetaminophen 325 MG TABLET 650 MG PO (01:45)
[2023-03-30 03:28] LABS: Legionella Ag Urine Not Detected (Not Detected)
[2023-03-30 04:00] VITALS: BP 148/103; PULSE 92; RESP 19; O2SAT 97
[2023-03-30] MEDS: Omeprazole 20 MG CAPSULE.DR PO (05:56)
[2023-03-30 06:09] LABS: Anion Gap 13 (12-20); Blood Urea Nitrogen 18 mg/dL (9-16); Calcium 9.7 mg/dL (8.4-10.2); Carbon Dioxide 20 mmol/L (22-29); Chloride 111 mmol/L (96-108); Creatinine Clr Calc Pharmacy 44.2; Estimated Glomerular Filt Rate > 60; Glucose Random 110 mg/dL (60-115); Potassium 4.4 mmol/L (3.3-5.1); Sodium 140 mmol/L (135-145)
[2023-03-30 06:19] VITALS: PULSE 92; RESP 19; O2SAT 97
[2023-03-30] MEDS: levalbuterol HCL 1.25 MG/3 ML VIAL.NEB INHALE ×2 (06:19→15:25)
[2023-03-30 07:42] LABS: Strep Pneumo Ag urine DETECTED
[2023-03-30 07:53] VITALS: BP 150/63; PULSE 97; RESP 18; TEMP 36.7; O2SAT 98
[2023-03-30] MEDS: Doxycycline Monohydrate 100 MG CAPSULE PO (09:11)
[2023-03-30] MEDS: vancomycin HCL 125 MG CAPSULE PO ×3 (09:11→18:20)
[2023-03-30] MEDS: Metoprolol Tartrate 25 MG TABLET PO ×2 (09:12→20:11)
[2023-03-30] MEDS: Multivitamin TABLET 1 TAB PO (09:13)
[2023-03-30] MEDS: Ferrous Sulfate 324 MG TABLET.DR PO (09:13)
[2023-03-30] MEDS: predniSONE 20 MG TABLET 40 MG PO (09:20)
[2023-03-30] MEDS: Cyanocobalamin (Vitamin B-12) 1,000 MCG TABLET 1000 MCG PO (09:20)
[2023-03-30] MEDS: Potassium Chloride ER 20 MEQ TAB.ER.PRT PO (09:25)
[2023-03-30] MEDS: Thiamine HCL 100 MG TABLET PO ×2 (09:25→20:11)
--- NOTE | 2023-03-30 10:00 | MHC.SL.SWA ---
Speech Pathologist Impression: Risk of Aspiration Due to: Neurological Condition History of Pneumonia Reduced Cognition Dysphasia Diet Status: Continue with Regular Diet with THIN liquids, pills whole with liquid or puree. Patient will need some initial support to assure that all liquids are open and available, and larger pieces of food is cut into manageable amounts (e.g. cut a burger in half). Liquid Consistency and Strategies for Safe Swallow: Liquid Intake Recommendation: Thin Liquid Intake Strategies: Small Sips Solid Food Consistency: Dietary Recommendations: Regular Additional Modifications to Solid Foods: Recommend GROUND/MECH ALTERED (NDD2) solids and THIN liquids, pills WHOLE in PUREE or LIQUID per pt's tolerance/preference. Recommend aspiration precautions and intermittent supervision. Oral Medication Intake: Whole with Liquid Please contact the pharmacy regarding appropriate crushable or liquid drug formulations that are available whenever modified delivery is recommended. Compensatory Strategies and Precautions to be Taken for Safe Swallow: Sitting Upright (90 deg) Double Swallow No Straw Small Bites and Sips Rate of Ingestion Change Avoid Specific Foods Supervision While Eating and Drinking for Safe Swallow: Intermittent Supervision Foods to Avoid: Swallowing Recommended Treatments: Compens. Strategy Educat. Recommendation for Speech: Inpatient Speech Therapy Comment: Patient seen during breakfast his a.m. Patient's diet was upgraded to regular at request of patient and family. This morning, patient had eaten most of food on tray at arrival of COAL CRUSHER OPERATOR. Patient said coffee is cold however cup was empty. At patient's request, COAL CRUSHER OPERATOR attempted to retrieve more coffee, but none was available. Patient also requested COAL CRUSHER OPERATOR heat up remaining muffin and bring some orange juice, all of which was done. Patient was observed drinking orange juice and taking bites of muffin, producing swallow wfl on both. Recommend D/C Speech at this time as patient is on least restrictive diet and tolerating well. Please re-contact with any concerns Frequency/Duration: Date Range for Service Req: Timeline to reassess: Social Work Supervisor Clinican/Clinical Fellow: No Supervisory Statement: I have reviewed and agree with the student/clinical fellow's documentation: N/A Speech Language Pathologist: Alexandria Luu M.A., CCC-COAL CRUSHER OPERATOR
--- NOTE | 2023-03-30 13:34 | MHC.CM.PN ---
pt ready for dc,pt filing an appeal
--- NOTE | 2023-03-30 13:47 | P.PNIM_ITS ---
Subjective Subjective Date of Service: 03/30/23 Interval History: Continues with cough, no hypoxia, afebile claims she is still having diarrhea and cannot go home due to this and that she has pneumonia. becomes very anxious/aggitated with HR increase to 130s when discussing there is no diarrhea and that she is stable to be discharged no sob, lightheadedness, palpitations, chest pain Review of Systems Review of Systems: Yes all other systems are reviewed and are negative Physical Exam 2 Vital Signs: Vital Signs: Last Vital Signs Temp 98.0 F 03/30/23 07:53 Pulse 97 03/30/23 07:53 Resp 18 03/30/23 07:53 BP 150/63 H 03/30/23 07:53 Pulse Ox 98 03/30/23 07:53 O2 Del Method Room Air 03/30/23 07:53 BMI result Body Mass Index 28.2 Constitutional - Awake and Alert, No apparent distress Eyes - PERRLA, EOMI Cardiovascular - S1S2, RRR, No edema Respiratory - Normal lung expansion, Normal respiratory effort, No respiratory distress, scattered expiratory wheezes Extremities - no calf tenderness bilaterally, no swelling Skin - Warm/Dry Neurological - Alert & oriented x3 Psychological - Appropriate affect Objective Data Active Medications Acetaminophen (Acetaminophen 325 Mg Tablet) 650 mg PO Q6H PRN PRN Reason: Pain, Mild (Pain Scale 1-3) Last Admin: 03/30/23 01:45 Dose: 650 mg Documented By: RUBEN Albuterol/Ipratropium (Albuterol/Iprat 2.5/0.5mg 3 Ml Ampul.Neb) 3 ml INHALE RQ4H WHILE AWAKE [facility] Last Admin: 03/30/23 11:55 Dose: Not Given Documented By: HELLEN Non-Admin Reason: Patient Asleep Aspirin (Aspirin Enteric Coated 81 Mg Tablet.) 81 mg PO DAILY [facility] Last Admin: 03/30/23 09:24 Dose: Not Given Documented By: ROCKY Non-Admin Reason: Patient Refused Atorvastatin Calcium (Atorvastatin Calcium 40 Mg Tablet) 40 mg PO BEDTIME [facility] Last Admin: 03/29/23 21:28 Dose: 40 mg Documented By: RUBEN Cefuroxime Axetil (Cefuroxime Axetil 500 Mg Tablet) 500 mg PO BID [facility] Last Admin: 03/30/23 09:24 Dose: 500 mg Documented By: ROCKY Cyanocobalamin (Cyanocobalamin (Vitamin B-12) 1,000 Mcg Tablet) 1,000 mcg PO DAILY [facility] Last Admin: 03/30/23 09:20 Dose: 1,000 mcg Documented By: ROCKY Docusate Sodium (Docusate Sodium 100 Mg Capsule) 100 mg PO DAILY PRN PRN Reason: Constipation Doxycycline Monohydrate (Doxycycline Monohydrate 100 Mg Capsule) 100 mg PO BID [facility] Last Admin: 03/30/23 09:11 Dose: 100 mg Documented By: ROCKY Enoxaparin Sodium (Enoxaparin Sodium 40 Mg/0.4 Ml Syringe) 40 mg SUBCUT Q24H [facility] Last Admin: 03/29/23 19:32 Dose: Not Given Documented By: RUBEN Non-Admin Reason: Patient Refused Ferrous Sulfate (Ferrous Sulfate 324 Mg Tablet.) 324 mg PO DAILY [facility] Last Admin: 03/30/23 09:13 Dose: 324 mg Documented By: ROCKY Fluticasone Propionate (Fluticasone Propionate Nasal 16 Gm [place]) 1 spray NOSTRIL-B BID [facility] Last Admin: 03/30/23 09:25 Dose: Not Given Documented By: ROCKY Non-Admin Reason: Patient Refused Guaifenesin (Guaifenesin 200 Mg/10 Ml 10 Ml Liquid) 10 ml PO Q4H PRN PRN Reason: Cough Last Admin: 03/29/23 01:55 Dose: 10 ml Documented By: FELICIA Levalbuterol HCl (Levalbuterol Hcl 1.25 Mg/3 Ml Vial.[place]) 1.25 mg INHALE Q2H PRN PRN Reason: shortness of breath or wheez Last Admin: 03/30/23 06:19 Dose: 1.25 mg Documented By: SOURAV Loperamide HCl (Loperamide Hcl 2 Mg Capsule) 2 mg PO Q4H PRN PRN Reason: diarrhea Metoprolol Tartrate (Metoprolol Tartrate 25 Mg Tablet) 25 mg PO BID [facility]; Protocol Last Admin: 03/30/23 09:12 Dose: 25 mg Documented By: ROCKY Montelukast Sodium (Montelukast Sodium 10 Mg Tablet) 10 mg PO BEDTIME [facility] Last Admin: 03/29/23 21:28 Dose: 10 mg Documented By: RUBEN Multivitamins/Vitamin C (Multivitamin Tablet) 1 tab PO DAILY [facility] Last Admin: 03/30/23 09:13 Dose: 1 tab Documented By: ROCKY Non-Formulary Medication (Umeclidinium-Vilanterol [Anoro Ellipta]) 1 each INHALE DAILY [facility] Omeprazole (Omeprazole 20 Mg Capsule.Dr) 20 mg PO BID@0630,1630 [facility] Last Admin: 03/30/23 05:56 Dose: 20 mg Documented By: RUBEN Ondansetron HCl (Ondansetron Hcl 4 Mg/2 Ml Vial) 4 mg IVPUSH Q8H PRN PRN Reason: Nausea and Vomiting Potassium Chloride (Potassium Chloride Er 20 Meq Tab.Er.Prt) 20 meq PO DAILY [facility] Last Admin: 03/30/23 09:25 Dose: 20 meq Documented By: ROCKY Prednisone (Prednisone 20 Mg Tablet) 40 mg PO DAILY [facility] Last Admin: 03/30/23 09:20 Dose: 40 mg Documented By: ROCKY Quetiapine Fumarate (Quetiapine Fumarate 50 Mg Tablet) 50 mg PO BEDTIME [facility] Last Admin: 03/29/23 21:27 Dose: 50 mg Documented By: RUBEN Risperidone (Risperidone 0.25 Mg Tablet) 0.25 mg PO DAILY [facility] Last Admin: 03/30/23 09:16 Dose: Not Given Documented By: ROCKY Non-Admin Reason: Patient Refused Sodium Chloride (0.9 % Sodium Chloride Flush 3 Ml Syringe) 3 ml IVFLUSH QSHIFT [facility] Last Admin: 03/30/23 07:18 Dose: Not Given Documented By: ROCKY Non-Admin Reason: No Access Thiamine HCl (Thiamine Hcl 100 Mg Tablet) 100 mg PO BID [facility] Last Admin: 03/30/23 09:25 Dose: 100 mg Documented By: ROCKY Vancomycin HCl (Vancomycin Hcl 125 Mg Capsule) 125 mg PO Q6H [facility] Last Admin: 03/30/23 13:38 Dose: 125 mg Documented By: ROCKY Labs 03/27/23 12:02 03/30/23 05:03 Labs: Laboratory Results - last 24 hr 03/27/23 03/30/23 10:25 05:03 Hold Purple Top SEE NOTE Anion Gap 13 Estim Creat Clear Calc 44.2 Estimated GFR > 60 Random Glucose 110 Calcium 9.7 Ur L.pneumophila Ag Not Detected Ur Strep pneumoniae Ag DETECTED Microbiology Microbiology Results: Microbiology 03/27/23 10:25 Urine Culture - Final Urine clean catch - Urine mcdonald top Enterococcus faecium Assessment and Plan (1) Severe sepsis: Status: Acute Plan d4 82yo with COPD on prn home O2, CAD, HFrEF, HLD, pAF not on AC, hx VRE UTI, dementia presenting with confusion admitted for severe sepsis with lactic acidosis due to pneumonia pneumonia, PSI score 124 [class IV]- improved - got pip-estefany 03/25-03/27 + levofloxacin 03/27-03/28 due to hx of Pseudomonas PNA; switch to doxy + cefuroxime 03/28-03/31 - BCx negative, Legionella, +strep pneumoniae - discontinue doxycycline, continue cefuroxime - consider augmentin on discharge, though this may cause recurrence of diarrhea Enterococcus urine -suspect colonization -colony count 10k-50k, resistant except to vanco -asymptomatic, hold on treatment at this time -ID consult for recommendations COPD exacerbation - prednisone 03/28- [refused yesterday], standing/prn nebs, antibiotics as above - continue Anoro, montelukast 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 Discussed with ID, treat given symptoms - PO vancomycin 03/27-04/05 hypoK- resolved - K repleted pAF- rate controlled - continue metoprolol tartrate, not on AC due to hx severe bleeding CAD - continue ASA, statin, metoprolol chronic anemia - continue FeSO4 chronic HFrEF - continue metoprolol tartrate, hold torsemide, appears euvolemic dementia - continue quetiapine, risperidone - Psych consult for competency requested by daughter- pt does not have capacity - ROAD CUTTER consulted: NDD2 solids, thin liquids ?VTE ppx - enoxaparin dispo - likely home with VNA In my clinical judgment, the patient medically does not require ongoing hospitalization, but is adamantly opposed to discharge and would like to appeal (dtr who is hcp is in agreement) Time Spent With Patient Time: Total time managing care of this patient today ____ minutes. Quality Stroke Does the patient have a stroke diagnosis?: No VTE Prior VTE?: No VTE Risk Level:: Medical - moderate - high VTE Device Contraindication: Treatment Not Indicated VTE Drug Contraindication: N/A - Med Ordered
[2023-03-30] MEDS: LORazepam 0.5 MG TABLET 0.25 MG PO (13:54)
[2023-03-30 15:25] VITALS: PULSE 81; RESP 18; O2SAT 97
[2023-03-30 16:00] VITALS: BP 150/72; PULSE 92; RESP 18; TEMP 36.1; O2SAT 95
[2023-03-30] MEDS: cefuroxime axetiL 500 MG TABLET PO (18:20)
[2023-03-30 19:21] VITALS: BP 143/77; PULSE 88; RESP 17; TEMP 36.2; O2SAT 98
[2023-03-30] MEDS: Atorvastatin Calcium 40 MG TABLET PO (20:11)
[2023-03-30] MEDS: QUEtiapine Fumarate 50 MG TABLET PO (20:11)
[2023-03-31] MEDS: vancomycin HCL 125 MG CAPSULE PO ×4 (01:34→18:25)
[2023-03-31 04:00] VITALS: BP 145/71; PULSE 75; RESP 18; TEMP 36.4; O2SAT 94
[2023-03-31] MEDS: Omeprazole 20 MG CAPSULE.DR PO (06:17)
[2023-03-31] MEDS: cefuroxime axetiL 500 MG TABLET PO (06:17)
[2023-03-31 07:20] VITALS: BP 173/91; PULSE 94; RESP 18; TEMP 36.1; O2SAT 99
[2023-03-31] MEDS: Multivitamin TABLET 1 TAB PO (09:27)
[2023-03-31] MEDS: Aspirin Enteric Coated 81 MG TABLET.DR PO (09:27)
[2023-03-31] MEDS: Ferrous Sulfate 324 MG TABLET.DR PO (09:28)
[2023-03-31] MEDS: Metoprolol Tartrate 25 MG TABLET PO ×2 (09:28→20:51)
[2023-03-31] MEDS: predniSONE 20 MG TABLET 40 MG PO (09:28)
--- NOTE | 2023-03-31 12:44 | P.PNIM_ITS ---
Subjective Subjective Date of Service: 03/31/23 Interval History: Seen and evaluated this morning reporting diarrhea no fever, chills or chest pain No other overnight events Review of Systems Review of Systems: Yes all other systems are reviewed and are negative Physical Exam 2 Vital Signs: Vital Signs: Last Vital Signs Temp 96.9 F 03/31/23 07:20 Pulse 94 03/31/23 07:20 Resp 18 03/31/23 07:20 BP 173/91 H 03/31/23 07:20 Pulse Ox 99 03/31/23 07:20 O2 Del Method Room Air 03/31/23 07:20 BMI result Body Mass Index 28.2 Const: Other: Constitutional : Awake, interactive, not in distress Neck : Normal inspection, Supple Cardiovascular : irregular irregular, no JVP, no lower extremity edema Respiratory : good bilateral air entry, basal fine crackles, no wheezes Gastrointestinal: soft, lax, Normal bowel sounds, Non tender Skin : Warm, Dry Neurological : Alert & oriented x3, No focal deficit Objective Data Active Medications Acetaminophen (Acetaminophen 325 Mg Tablet) 650 mg PO Q6H PRN PRN Reason: Pain, Mild (Pain Scale 1-3) Last Admin: 03/30/23 01:45 Dose: 650 mg Documented By: RUBEN Albuterol/Ipratropium (Albuterol/Iprat 2.5/0.5mg 3 Ml Ampul.Neb) 3 ml INHALE RQ4H WHILE AWAKE [facility] Last Admin: 03/31/23 11:23 Dose: Not Given Documented By: HELLEN Non-Admin Reason: Patient Asleep Aspirin (Aspirin Enteric Coated 81 Mg Tablet.) 81 mg PO DAILY [facility] Last Admin: 03/31/23 09:27 Dose: 81 mg Documented By: ROCKY Atorvastatin Calcium (Atorvastatin Calcium 40 Mg Tablet) 40 mg PO BEDTIME [facility] Last Admin: 03/30/23 20:11 Dose: 40 mg Documented By: RUBEN Cefuroxime Axetil (Cefuroxime Axetil 500 Mg Tablet) 500 mg PO Q12H [facility] Last Admin: 03/31/23 06:17 Dose: 500 mg Documented By: RUBEN Cyanocobalamin (Cyanocobalamin (Vitamin B-12) 1,000 Mcg Tablet) 1,000 mcg PO DAILY [facility] Last Admin: 03/31/23 09:36 Dose: Not Given Documented By: ROCKY Non-Admin Reason: Patient Refused Docusate Sodium (Docusate Sodium 100 Mg Capsule) 100 mg PO DAILY PRN PRN Reason: Constipation Enoxaparin Sodium (Enoxaparin Sodium 40 Mg/0.4 Ml Syringe) 40 mg SUBCUT Q24H [facility] Last Admin: 03/30/23 18:17 Dose: Not Given Documented By: ROCKY Non-Admin Reason: Patient Refused Ferrous Sulfate (Ferrous Sulfate 324 Mg Tablet.) 324 mg PO DAILY [facility] Last Admin: 03/31/23 09:28 Dose: 324 mg Documented By: ROCKY Fluticasone Propionate (Fluticasone Propionate Nasal 16 Gm [place]) 1 spray NOSTRIL-B BID [facility] Last Admin: 03/31/23 09:36 Dose: Not Given Documented By: ROCKY Non-Admin Reason: Patient Refused Guaifenesin (Guaifenesin 200 Mg/10 Ml 10 Ml Liquid) 10 ml PO Q4H PRN PRN Reason: Cough Last Admin: 03/29/23 01:55 Dose: 10 ml Documented By: FELICIA Levalbuterol HCl (Levalbuterol Hcl 1.25 Mg/3 Ml Vial.Neb) 1.25 mg INHALE Q2H PRN PRN Reason: shortness of breath or wheez Last Admin: 03/30/23 15:25 Dose: 1.25 mg Documented By: HELLEN Loperamide HCl (Loperamide Hcl 2 Mg Capsule) 2 mg PO Q4H PRN PRN Reason: diarrhea Metoprolol Tartrate (Metoprolol Tartrate 25 Mg Tablet) 25 mg PO BID [facility]; Protocol Last Admin: 03/31/23 09:28 Dose: 25 mg Documented By: ROCKY Montelukast Sodium (Montelukast Sodium 10 Mg Tablet) 10 mg PO BEDTIME [facility] Last Admin: 03/30/23 20:21 Dose: Not Given Documented By: RUBEN Non-Admin Reason: Patient Refused Multivitamins/Vitamin C (Multivitamin Tablet) 1 tab PO DAILY [facility] Last Admin: 03/31/23 09:27 Dose: 1 tab Documented By: ROCKY Non-Formulary Medication (Umeclidinium-Vilanterol [Anoro Ellipta]) 1 each INHALE DAILY [facility] Omeprazole (Omeprazole 20 Mg Capsule.) 20 mg PO BID@0630,1630 [facility] Last Admin: 03/31/23 06:17 Dose: 20 mg Documented By: RUBEN Ondansetron HCl (Ondansetron Hcl 4 Mg/2 Ml Vial) 4 mg IVPUSH Q8H PRN PRN Reason: Nausea and Vomiting Potassium Chloride (Potassium Chloride Er 20 Meq Tab.Er.Prt) 20 meq PO DAILY [facility] Last Admin: 03/31/23 09:34 Dose: Not Given Documented By: ROCKY Non-Admin Reason: Patient Refused Prednisone (Prednisone 20 Mg Tablet) 40 mg PO DAILY [facility] Last Admin: 03/31/23 09:28 Dose: 40 mg Documented By: ROCKY Quetiapine Fumarate (Quetiapine Fumarate 50 Mg Tablet) 50 mg PO BEDTIME [facility] Last Admin: 03/30/23 20:11 Dose: 50 mg Documented By: RUBEN Risperidone (Risperidone 0.25 Mg Tablet) 0.25 mg PO DAILY [facility] Last Admin: 03/31/23 09:36 Dose: Not Given Documented By: ROCKY Non-Admin Reason: Patient Refused Sodium Chloride (0.9 % Sodium Chloride Flush 3 Ml Syringe) 3 ml IVFLUSH QSHIFT [facility] Last Admin: 03/31/23 09:25 Dose: Not Given Documented By: ROCKY Non-Admin Reason: No Access Thiamine HCl (Thiamine Hcl 100 Mg Tablet) 100 mg PO BID [facility] Last Admin: 03/31/23 09:36 Dose: Not Given Documented By: ROCKY Non-Admin Reason: Patient Refused Vancomycin HCl (Vancomycin Hcl 125 Mg Capsule) 125 mg PO Q6H [facility] Last Admin: 03/31/23 12:32 Dose: 125 mg Documented By: ROCKY Labs 03/27/23 12:02 03/30/23 05:03 Microbiology Microbiology Results: Microbiology 03/25/23 17:07 Blood Culture - Final Blood - Venous No growth after 5 days. 03/25/23 16:41 Blood Culture - Final Blood - Venous No growth after 5 days. Assessment and Plan (1) Acute and chronic respiratory failure with hypoxia: Status: Acute (2) Right lower lobe pneumonia: Status: Acute Plan 82yo with COPD on prn home O2, CAD, HFrEF, HLD, pAF not on AC, hx VRE UTI, dementia presenting with confusion admitted for severe sepsis with lactic acidosis due to pneumonia pneumonia, PSI score 124 [class IV]- improved Finished pip-estefany 03/25-03/27 + levofloxacin 03/27-03/28 due to hx of Pseudomonas PNA; switch to doxy + cefuroxime 03/28-03/31, DC oral Abx today BCx negative, Legionella, +strep pneumoniae discontinue doxycycline and cefuroxime (finished 1 week and developed Cdiff diarrhea). 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 Discussed with ID, treat given symptoms PO vancomycin 03/27-04/05 Enterococcus urine suspect colonization w colony count 10k-50k, resistant except to vanco asymptomatic, hold on treatment at this time, ID rec COPD exacerbation prednisone 03/28- standing/prn nebs continue Anoro, montelukast hypoK resolved, K repleted pAF rate controlled continue metoprolol tartrate, not on AC due to hx severe bleeding CAD continue ASA, statin, metoprolol chronic anemia continue FeSO4 chronic HFrEF continue metoprolol tartrate, hold torsemide, appears euvolemic dementia continue quetiapine, risperidone Psych consult for competency requested by daughter- pt does not have capacity [employer] consulted: NDD2 solids, thin liquids ?VTE ppx enoxaparin dispo likely home with VNA In my clinical judgment, the patient has improved during hospital stay but is opposed to discharge and would like to appeal (dtr who is hcp is in agreement) Time Spent With Patient Time: Total time managing care of this patient today ____ minutes. Quality Stroke Does the patient have a stroke diagnosis?: No VTE Prior VTE?: No VTE Risk Level:: Medical - moderate - high VTE Device Contraindication: Treatment Not Indicated VTE Drug Contraindication: N/A - Med Ordered
[2023-03-31 15:10] VITALS: BP 179/96; PULSE 120; RESP 20; TEMP 36.4; O2SAT 95
[2023-03-31] MEDS: guaiFENesin 200 MG/10 ML 10 ML LIQUID PO (15:10)
[2023-03-31 15:24] VITALS: PULSE 115; RESP 20; O2SAT 95
[2023-03-31] MEDS: levalbuterol HCL 1.25 MG/3 ML VIAL.NEB INHALE (15:24)
--- NOTE | 2023-03-31 16:07 | P.CNID_ITS ---
History of Present Illness Data of Consult Service Date: 03/31/23 Requesting physician: Maddy Christiansen Primary Care Provider: Monica Arciniega MD HPI Reason for consult: weakness,diarrhea She presents with weakness and not giving good history. SHe has diarrhea and had Cdiff before in January after antibiotics in December for aspiration pneumonia. She just finished po Vancomycin for presumed Cdiff reportedly. Review of Systems 2 Review of Systems: Yes Unobtainable due to mental condition and Unobtainable due to mental status [facility] Past Medical History Medical History (Updated 03/31/23 @ 16:10 by Jackie Gerardo MD) Clostridioides difficile infection Pneumonia Atrial flutter Pyuria Atelectasis of right lung Encephalopathy chronic History of infection with vancomycin resistant Enterococcus (VRE) Congestive heart failure Heart failure Dyspnea Paroxysmal A-fib Aspiration pneumonia COPD (chronic obstructive pulmonary disease) A-fib Acute encephalopathy Anemia Pseudomonas respiratory infection CAD (coronary artery disease) Acute respiratory failure with hypoxia Chronic dyspnea Acute hypokalemia Atrial fibrillation with RVR Anemia GI bleed Pulmonary nodules COPD (chronic obstructive pulmonary disease) Bronchiectasis Pseudomonal pneumonia Family History Family History Other No family history of cancer Family history: reviewed and not pertinent Surgical History Surgical History H/O umbilical hernia repair (09/18/22) History of quadruple bypass History of hip replacement History of knee replacement History of cholecystectomy Social History Social History Household Members: Family Housing: House Are you a primary home care scheduler to a significant other at home: No Do you presently have visiting nurse or other home services: No Alcohol intake: never Patient Tobacco Use Status: Former Tobacco user Quit Date: 2012 Tobacco use type: Cigarette Advance Directives Date on File: 08/24/22 service: No Current occupational status: retired Meds Allergies Allergy/AdvReac Type Severity Reaction Status Date / Time carvedilol Allergy Shortness Verified 01/24/23 14:59 of Breath sertraline [From Zoloft] Allergy Shortness Verified 01/24/23 14:59 of Breath spironolactone Allergy Shortness Verified 01/24/23 14:59 of Breath adhesive tape AdvReac Severe skin tears Verified 01/24/23 14:59 mirtazapine AdvReac Severe psychotic Verified 01/24/23 14:59 episode Active Medications: Current Medications Acetaminophen (Acetaminophen 325 Mg Tablet) 650 mg PO Q6H PRN PRN Reason: Pain, Mild (Pain Scale 1-3) Last Admin: 03/30/23 01:45 Dose: 650 mg Albuterol/Ipratropium (Albuterol/Iprat 2.5/0.5mg 3 Ml Ampul.Neb) 3 ml INHALE RQ4H WHILE AWAKE [facility] Last Admin: 03/31/23 11:23 Dose: Not Given Aspirin (Aspirin Enteric Coated 81 Mg Tablet.) 81 mg PO DAILY [facility] Last Admin: 03/31/23 09:27 Dose: 81 mg Atorvastatin Calcium (Atorvastatin Calcium 40 Mg Tablet) 40 mg PO BEDTIME [facility] Last Admin: 03/30/23 20:11 Dose: 40 mg Cyanocobalamin (Cyanocobalamin (Vitamin B-12) 1,000 Mcg Tablet) 1,000 mcg PO DAILY [facility] Last Admin: 03/31/23 09:36 Dose: Not Given Docusate Sodium (Docusate Sodium 100 Mg Capsule) 100 mg PO DAILY PRN PRN Reason: Constipation Enoxaparin Sodium (Enoxaparin Sodium 40 Mg/0.4 Ml Syringe) 40 mg SUBCUT Q24H [facility] Last Admin: 03/30/23 18:17 Dose: Not Given Ferrous Sulfate (Ferrous Sulfate 324 Mg Tablet.) 324 mg PO DAILY [facility] Last Admin: 03/31/23 09:28 Dose: 324 mg Fluticasone Propionate (Fluticasone Propionate Nasal 16 Gm [place]) 1 spray NOSTRIL-B BID [facility] Last Admin: 03/31/23 09:36 Dose: Not Given Guaifenesin (Guaifenesin 200 Mg/10 Ml 10 Ml Liquid) 10 ml PO Q4H PRN PRN Reason: Cough Last Admin: 03/31/23 15:10 Dose: 10 ml Levalbuterol HCl (Levalbuterol Hcl 1.25 Mg/3 Ml Vial.Neb) 1.25 mg INHALE Q2H PRN PRN Reason: shortness of breath or wheez Last Admin: 03/31/23 15:24 Dose: 1.25 mg Loperamide HCl (Loperamide Hcl 2 Mg Capsule) 2 mg PO Q4H PRN PRN Reason: diarrhea Metoprolol Tartrate (Metoprolol Tartrate 25 Mg Tablet) 25 mg PO BID [facility]; Protocol Last Admin: 03/31/23 09:28 Dose: 25 mg Montelukast Sodium (Montelukast Sodium 10 Mg Tablet) 10 mg PO BEDTIME [facility] Last Admin: 03/30/23 20:21 Dose: Not Given Multivitamins/Vitamin C (Multivitamin Tablet) 1 tab PO DAILY [facility] Last Admin: 03/31/23 09:27 Dose: 1 tab Non-Formulary Medication (Umeclidinium-Vilanterol [Anoro Ellipta]) 1 each INHALE DAILY [facility] Omeprazole (Omeprazole 20 Mg Capsule.Dr) 20 mg PO BID@0630,1630 [facility] Last Admin: 03/31/23 06:17 Dose: 20 mg Ondansetron HCl (Ondansetron Hcl 4 Mg/2 Ml Vial) 4 mg IVPUSH Q8H PRN PRN Reason: Nausea and Vomiting Potassium Chloride (Potassium Chloride Er 20 Meq Tab.Er.Prt) 20 meq PO DAILY [facility] Last Admin: 03/31/23 09:34 Dose: Not Given Prednisone (Prednisone 20 Mg Tablet) 40 mg PO DAILY [facility] Last Admin: 03/31/23 09:28 Dose: 40 mg Quetiapine Fumarate (Quetiapine Fumarate 50 Mg Tablet) 50 mg PO BEDTIME [facility] Last Admin: 03/30/23 20:11 Dose: 50 mg Risperidone (Risperidone 0.25 Mg Tablet) 0.25 mg PO DAILY [facility] Last Admin: 03/31/23 09:36 Dose: Not Given Sodium Chloride (0.9 % Sodium Chloride Flush 3 Ml Syringe) 3 ml IVFLUSH QSHIFT [facility] Last Admin: 03/31/23 15:11 Dose: Not Given Thiamine HCl (Thiamine Hcl 100 Mg Tablet) 100 mg PO BID [facility] Last Admin: 03/31/23 09:36 Dose: Not Given Vancomycin HCl (Vancomycin Hcl 125 Mg Capsule) 125 mg PO Q6H [facility] Last Admin: 03/31/23 12:32 Dose: 125 mg Home Medications Medication Instructions Recorded Confirmed Last Taken Type fluticasone propionate 50 1 spray intranasal BID 03/22/22 03/25/23 03/25/23 History mcg/actuation nasal spray,suspension montelukast 10 mg tablet 10 mg PO BEDTIME 03/22/22 03/25/23 01/12/23 History nebulizers 03/22/22 07/04/22 Unknown History albuterol sulfate 90 mcg/actuation 2 puff inhalation Q4-6H PRN 11/02/22 03/25/23 03/25/23 History aerosol inhaler (Ventolin HFA) Shortness Of Breath Or Wheezing aspirin 81 mg tablet,delayed 81 mg PO DAILY 11/02/22 03/25/23 01/13/23 History release isosorbide mononitrate 30 mg 30 mg PO DAILY 11/02/22 03/25/23 03/25/23 History tablet,extended release 24 hr levalbuterol HCl 1.25 mg/3 mL 1.25 mg inhalation TID 11/02/22 03/25/23 03/25/23 History solution for nebulization pantoprazole 40 mg tablet,delayed 40 mg PO BID 11/02/22 03/25/23 01/13/23 History release thiamine HCl (vitamin B1) 100 mg 100 mg PO BID 11/02/22 03/25/23 03/25/23 History tablet risperidone 0.25 mg tablet 0.25 mg PO DAILY 12/16/22 03/25/23 03/23/23 History acetaminophen 325 mg tablet 650 mg PO Q6H PRN Pain 01/13/23 03/25/23 03/25/23 History multivitamin 1 tab PO DAILY 01/13/23 03/25/23 03/25/23 History potassium chloride 20 mEq 20 meq PO DAILY 01/13/23 03/25/23 03/25/23 History tablet,extended release quetiapine 50 mg tablet 50 mg PO BEDTIME 01/13/23 03/25/23 01/12/23 History torsemide 20 mg tablet 20 mg PO DAILY 01/13/23 03/25/23 03/25/23 History Lactobacillus acidophilus 500 500,000,000 cell PO DAILY 03/25/23 03/25/23 03/25/23 History million cell capsule cyanocobalamin (vitamin B-12) 1,000 mcg PO DAILY 03/25/23 03/25/23 03/25/23 History 1,000 mcg tablet nystatin 100,000 unit/gram topical 1 appl topical BID PRN Rash 03/25/23 03/25/2323 History powder Physical Exam 2 Vital Signs: Vital Signs: Last Vital Signs Temp 97.5 F 03/31/23 15:10 Pulse 115 H 03/31/23 15:24 Resp 20 03/31/23 15:24 BP 179/96 H 03/31/23 15:10 Pulse Ox 95 03/31/23 15:10 O2 Del Method Room Air 03/31/23 15:10 BMI result Body Mass Index 28.2 Const: General: cooperative HEENT: Head: Yes normal to inspection Face and sinus: Yes normal facial exam Mouth: Normal oral and palatal mucosa present Teeth and gingiva: d entition normal Eyes: General: appearance normal, both eyes and all related structures P upils: Equal, round and reactive pupils present Resp: Effort & Inspection: normal respiratory effort Cardio: Rate: regular rate Rhythm: regular rhythm GI: Palpation (GI): Soft to palpation and nontender : General: Yes no CVA tenderness Back/Spine/Pelvis: Back: no CVA tenderness Skin: General skin exam: no rashes or lesions noted Neuro: General: moves all extremities Cranial nerves: Yes Equal, round and reactive pupils present Extrem: General: Yes normal to inspection Psych: Appearance: grossly normal Results Labs 03/27/23 12:02 03/30/23 05:03 Microbiology Microbiology Results: Microbiology 03/25/23 17:07 Blood - Venous Blood Culture - Final No growth after 5 days. 03/25/23 16:41 Blood - Venous Blood Culture - Final No growth after 5 days. 03/27/23 10:25 Urine clean catch - Urine mcdonald top Urine Culture - Final Enterococcus faecium Assessment and Plan (1) Cognitive impairment: Status: Acute (2) Severe sepsis: Status: Acute (3) Febrile illness, acute: Status: Acute Urine culture only low count [id number],doubt infected. Think patient came in with Cdiff recurrent after stopped po Vancomycin. (4) Clostridioides difficile infection: Status: Acute Plan Po Vancomycin 125 qid for 10 days and then taper tid for a week,bid for a week ,daily for a week and then po Vancomycin 125 mg every Mon,Wed,Monday. Think of stool transplant or Zinplava when stable see us. Time Spent With Patient Time: Total time managing care of this patient today ____ minutes.
[2023-03-31 19:43] VITALS: BP 166/79; PULSE 74; RESP 18; TEMP 36.2; O2SAT 95
[2023-03-31] MEDS: Atorvastatin Calcium 40 MG TABLET PO (20:50)
[2023-03-31] MEDS: QUEtiapine Fumarate 50 MG TABLET PO (20:51)
[2023-03-31] MEDS: Thiamine HCL 100 MG TABLET PO (20:51)
[2023-03-31] MEDS: Montelukast Sodium 10 MG TABLET PO (20:51)
[2023-04-01] MEDS: vancomycin HCL 125 MG CAPSULE PO ×3 (00:53→12:31)
[2023-04-01 03:56] VITALS: BP 181/86; PULSE 90; RESP 20; TEMP 35.7; O2SAT 95
[2023-04-01] MEDS: guaiFENesin 200 MG/10 ML 10 ML LIQUID PO (03:56)
[2023-04-01] MEDS: Omeprazole 20 MG CAPSULE.DR PO (06:48)
[2023-04-01 07:14] VITALS: BP 173/97; PULSE 100; RESP 20; TEMP 36; O2SAT 96
[2023-04-01] MEDS: predniSONE 20 MG TABLET 40 MG PO (08:35)
[2023-04-01] MEDS: Ferrous Sulfate 324 MG TABLET.DR PO (08:35)
[2023-04-01] MEDS: Aspirin Enteric Coated 81 MG TABLET.DR PO (08:35)
[2023-04-01] MEDS: risperiDONE 0.25 MG TABLET PO (08:35)
[2023-04-01] MEDS: Cyanocobalamin (Vitamin B-12) 1,000 MCG TABLET 1000 MCG PO (08:35)
[2023-04-01] MEDS: Metoprolol Tartrate 25 MG TABLET PO (08:35)
[2023-04-01] MEDS: Multivitamin TABLET 1 TAB PO (08:35)
[2023-04-01] MEDS: Potassium Chloride ER 20 MEQ TAB.ER.PRT PO (08:35)
--- NOTE | 2023-04-01 09:09 | MHC.CM.PN ---
Addendum entered by Alexandria Wray, RN 04/01/23 09:17: CM CONTACTED PT'S DTR [facility] AT 9:15AM TO LET HER KNOW [facility] UNABLE TO TRANSPORT UNTIL 2PM TODAY, [facility] REQUESTING COPY OF APPEAL DECISION, CM WILL SEND IN [facility] EN[employer]OPE. Original Note: FENG RECEIVED MESSAGE FROM [facility] THAT PT HAS LOST APPEAL AND WILL NEED TO PRIVATE PAY OR D/C BY NOON TODAY 04/01/23, CM MET W/PT WHO REPORTS HER DTR IS SETTING UP TRANSPORT HOWEVER WHEN CM CONTACTED PT'S DTR FOR TIME SHE REPORTED PT WOULD NEED AMBULANCE TRANSPORT. CM CONTACTED [facility] FOR TRANSPORT HOWEVER THEY ARE UNABLE TO TRANSPORT HER UNTIL 2PM, HOSPITALIST AND NSG AWARE.
--- NOTE | 2023-04-01 10:55 | P.F2F_ITS ---
Service Date Service Date: 04/01/23 Encounter Date of encounter: 04/01/23 Reasons for Services Signs and symptoms assessed: physical deconditioning Reason for physical therapy: home safety and mobility and therapeutic exercises Homebound: Leaving the home is medically contraindicated at this time without the asist of a device and/or another person due th the listed conditions above and below. Reason homebound: unable to drive Certification: Based on the above findings, I certify that this patient is confined to the home and needs intermittent long term care, physical therapy and/or speech therapy, or continues to need occupational therapy. The patient is under my care, and I have initiated the establishment of the plan of care. The patient will be followed by a physician who will periodically review the plan of care. Time Spent With Patient Time: Total time managing care of this patient today ____ minutes.
--- NOTE | 2023-04-01 10:57 | PM.DS ---
DS: Providers Provider Date of Service: 04/01/23 Date of admission: 03/25/23 19:30 Primary care physician: Monica Arciniega MD Consults: 03/27/23 12:25 Consult to Psychiatry Routine Consulting Provider: Psych Covering Reason for consultation: competency. refusing many aspects of care 03/30/23 16:40 Consult to Infectious Diseases Routine Consulting [place] [facility] [place] Reason for consultation: urine + resistant enterococcus (10k-50k, asymptomatic) DS: Diagnosis Discharge Diagnosis (1) Cognitive impairment: Status: Acute (2) Severe sepsis: Status: Acute (3) Febrile illness, acute: Status: Acute (4) Clostridioides difficile infection: Status: Acute (5) Acidosis, lactic: Status: Acute (6) Leukocytosis: Status: Acute (7) Pneumonia: Status: Acute DS: Summary Hospital Course Hospital Course: Admission note HPI 82-year-old female with pertinent history of dementia, COPD with chronic hypoxemic respiratory failure with supplemental O2 use as needed, CAD, paroxysmal atrial fibrillation not on anticoagulation, history of pseudomonal pneumonia, chronic systolic congestive heart failure, VRE UTI, mixed hyperlipidemia was sent to the emergency department for evaluation of altered mentation per her family and reports of not feeling well. The family states she has been more agitated than usual. She is unable to provide much history but denies any complaints currently. On arrival, patient febrile to 102.7 with heart rate 95, tachypneic to 30. No hypoxia. On admission following Tylenol administration, fever resolved with temp 98.8 degrees. There is a leukocytosis of 21.1%. Renal function baseline, electrolyte levels normal. Initial lactic acid 2.4, repeat pending. Initial troponin 28.5, BNP 134. Procalcitonin 0.33. Negative for COVID-19. Head CT negative for any acute intracranial abnormality. CT abdomen/pelvis shows bilateral lower lobe interstitial and alveolar infiltrates, right worse than left but no acute intra-abdominal findings. Chest x-ray again shows bilateral basilar opacities. In the ED, given 750 mg Levaquin, Tylenol, 1 g IV Rocephin, and 500 mL IVF. Hospital course # Pneumonia Treated with IV pip-estefany 03/25-03/27 + levofloxacin 03/27-03/28 due to hx of Pseudomonas PNA; switch to doxy + cefuroxime 03/28-03/31, finished 1 week of antibiotics as BCx negative, Legionella, but tested positive for strep pneumoniae. discontinue doxycycline and cefuroxime (finished 1 week and developed Cdiff diarrhea). 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 Discussed with ID, treat given symptoms PO vancomycin at time of discharge # Enterococcus urine suspect colonization w colony count 10k-50k, resistant except to vanco asymptomatic, hold on treatment at this time, ID rec no treatment. # COPD exacerbation Responded well to nebulizers and steroids. continue Anoro, montelukast Time Spent with Patient Time attestation: Total time managing care of this patient today ____ minutes. Discharge coordination time: Greater than 30 minutes Quality: Safe Use of Opioids Does Pt have an Active Cancer Diagnosis on the Problem List?: No Quality: Stroke Does the patient have a stroke diagnosis?: No Physical Exam Vital Signs: Vital Signs: Last Vital Signs Temp 96.8 F 04/01/23 07:14 Pulse 100 04/01/23 07:14 Resp 20 04/01/23 07:14 BP 173/97 H 04/01/23 07:14 Pulse Ox 96 04/01/23 07:14 O2 Del Method Room Air 04/01/23 07:14 BMI result Body Mass Index 28.2 Const: Other: Constitutional : Awake, interactive, not in distress Neck : Normal inspection, Supple Cardiovascular : irregular irregular, no JVP, no lower extremity edema Respiratory : good bilateral air entry, no crackles, no wheezes Gastrointestinal: soft, lax, Normal bowel sounds, Non tender Skin : Warm, Dry Neurological : Alert & oriented x3, No focal deficit DS: Data Data Completed and Pending Completed studies during hospitalization [Text1]: Procedures Excision of Descending Colon, Via Natural or Artificial Opening Endoscopic, Diagnostic (01/14/23) Excision of Rectum, Via Natural or Artificial Opening Endoscopic, Diagnostic (01/14/23) Excision of Sigmoid Colon, Via Natural or Artificial Opening Endoscopic, Diagnostic (01/14/23) Excision of Transverse Colon, Via Natural or Artificial Opening Endoscopic, Diagnostic (01/14/23) Supplement Abdominal Wall with Synthetic Substitute, Open Approach (09/17/22) Transfusion of Nonautologous Red Blood Cells into Peripheral Vein, Percutaneous Approach (04/06/22) Imaging Chest x-ray: Radiologist's impression: ITS Impressions Head CT 03/25/23 16:59 IMPRESSION: No acute intracranial hemorrhage or infarct. Abdomen/Pelvis CT 03/25/23 17:00 IMPRESSION: Bilateral lower lobe interstitial and alveolar infiltrates, right worse than left. No acute finding within the abdomen or pelvis. Chest X-Ray 03/25/23 18:13 IMPRESSION: Bilateral basilar opacities millicuries of atelectasis or infiltrate. Follow-up recommended Ankle X-Ray 03/28/23 14:24 IMPRESSION: No evidence of an acute osseous injury. Discharge Plan Discharge Anticipated Discharge Date/Time: 03/30/23 13:37 Patient Disposition: Home Health Service Discharge Diagnosis: pneumonia, severe sepsis, cdiff Referrals: [facility] [Outside] - 1 Week Monica Arciniega MD [Primary Care Provider] - 1 Week Discharge Medications: New vancomycin 125 mg Capsule 125 mg PO Q6H Qty: 24 0RF metoprolol tartrate 25 mg Tablet 25 mg PO BID Qty: 60 0RF Protocol: Hold for SBP/HR < HOLD for SBP < : 90 HOLD for HR < : 60 Continued ferrous sulfate 325 mg (65 mg iron) tablet 325 mg PO DAILY 0RF (DME) Aerochamber MV Spacer See Rx Instructions .ROUTE .MEDSUPPLY Qty: 1 0RF Rx Instructions: As directed isosorbide mononitrate 30 mg tablet extended release 24 hr 30 mg PO DAILY thiamine HCl (vitamin B1) 100 mg tablet 100 mg PO BID aspirin 81 mg tablet,delayed release (DR/EC) 81 mg PO DAILY pantoprazole 40 mg tablet,delayed release (DR/EC) 40 mg PO BID albuterol sulfate [Ventolin HFA] 90 mcg/actuation HFA aerosol inhaler 2 puff INHALATION Q4-6H PRN (Reason: Shortness Of Breath Or Wheezing) levalbuterol HCl 1.25 mg/3 mL solution for nebulization 1.25 mg inhalation TID metoprolol tartrate 25 mg Tablet 25 mg PO BID 30 Days Qty: 60 0RF Protocol: Hold for SBP/HR < HOLD for SBP < : 90 HOLD for HR < : 60 cyanocobalamin (vitamin B-12) 1,000 mcg tablet 1,000 mcg PO DAILY Lactobacillus acidophilus 500 million cell capsule 500,000,000 cell PO DAILY nystatin 100,000 unit/gram powder 1 appl topical BID PRN (Reason: Rash) Protocol: Apply to: Apply to: Abdominal Fold Rx Instructions: groin area loperamide 2 mg Capsule 2 mg PO Q4H PRN (Reason: diarrhea) Qty: 20 0RF atorvastatin [Lipitor] 40 mg tablet 40 mg PO BEDTIME Qty: 30 0RF risperidone 0.25 mg tablet 0.25 mg PO DAILY quetiapine 50 mg tablet 50 mg PO BEDTIME torsemide 20 mg tablet 20 mg PO DAILY multivitamin Tablet 1 tab PO DAILY acetaminophen 325 mg Tablet 650 mg PO Q6H PRN (Reason: Pain) potassium chloride 20 mEq tablet extended release 20 meq PO DAILY fluticasone propionate 50 mcg/actuation spray,suspension 1 spray intranasal BID Rx Instructions: 1 spray into each nostril montelukast 10 mg tablet 10 mg PO BEDTIME (DME) nebulizers Kit See Rx Instructions .ROUTE Rx Instructions: As directed Anoro Ellipta 62.5-25 mcg/actuation blister with device 1 ea inhalation DAILY 30 Days Qty: 60 11RF Rx Instructions: do not interchange, daughter will bring in Discharge Orders: Discharge Order (Routine); Ordered 04/01/23 Ordered By: Maddy Christiansen Diet: Advance to usual diet Activity on Discharge: As tolerated Stand Alone Forms: Patient Portal Discharge page Care Plan Goals: see below Health Concerns: Pneumonia with sepsis CDiff Plan of Treatment: Pneumonia with sepsis treated with IV antibiotics with good response as you finished 1 week of antibiotics while inpatient. CDiff diarrhea has resolved take vancomycin every 6 hours until course complete recommend yogurt with probiotics when taking antibiotics Assessment: see above, see dc summary
== END 2023-04-01 15:00 | disposition home health service (06) | DRG 871 ==
LOC: HO.ED 18:29 → HO.EDOVER 19:31 → HO.S3 03-26 12:24
PROVIDERS: Family Medicine; Admitting Provider Physician Assistant; Emergency Provider Emergency Medicine; PCP Internal Medicine; Visit Provider Student in an Organized Health Care Education/Training Program
DX: A41.9 Sepsis, unspecified organism (principal); G93.41 Metabolic encephalopathy; J18.9 Pneumonia, unspecified organism; J44.0 Chronic obstructive pulmonary disease with (acute) lower respiratory infection; J44.1 Chronic obstructive pulmonary disease with (acute) exacerbation; J96.11 Chronic respiratory failure with hypoxia; I50.22 Chronic systolic (congestive) heart failure; A04.71 Enterocolitis due to Clostridium difficile, recurrent; I25.10 Atherosclerotic heart disease of native coronary artery without angina pectoris; R65.20 Severe sepsis without septic shock; Z99.81 Dependence on supplemental oxygen; D64.9 Anemia, unspecified; I48.0 Paroxysmal atrial fibrillation; E78.5 Hyperlipidemia, unspecified; E87.6 Hypokalemia; Z95.1 Presence of aortocoronary bypass graft; Z87.891 Personal history of nicotine dependence; Z79.51 Long term (current) use of inhaled steroids; Z79.82 Long term (current) use of aspirin; Z79.899 Other long term (current) drug therapy
CPT/HCPCS: 36415; 70450; 71045; 73610; 74176; 80048; 80076; 82140; 82550; 82803; 83605; 83690; 83735; 83880; 84145; 84443; 84484; 85025; 85027; 85610; 87040; 87086; 87088; 87186; 87324; 87449; 87493; 87635; 87899; 92526; 92610; 93005; 94640; 97162; 97166; 99285; J0696; J1650; J1956; J2543; J3475

== ENCOUNTER → 2023-03-25 19:30 | Outpatient (BNV) | payer OTHER, SELFPAY | PROVIDERS: Admitting Provider Physician Assistant; Emergency Provider Emergency Medicine; PCP Internal Medicine; Visit Provider Physician Assistant | DX: A41.9 Sepsis, unspecified organism (principal); R65.20 Severe sepsis without septic shock; R41.89 Other symptoms and signs involving cognitive functions and awareness; R50.9 Fever, unspecified; A49.8 Other bacterial infections of unspecified site; E87.20 Acidosis, unspecified; D72.829 Elevated white blood cell count, unspecified; J18.9 Pneumonia, unspecified organism | CPT/HCPCS: 99223; 99232; 99239; G0180 ==

== ENCOUNTER → 2023-03-25 19:30 | Outpatient (BNV) | payer OTHER, SELFPAY | PROVIDERS: Admitting Provider Physician Assistant; Emergency Provider Emergency Medicine; PCP Internal Medicine; Visit Provider Internal Medicine | DX: R41.89 Other symptoms and signs involving cognitive functions and awareness (principal); A41.9 Sepsis, unspecified organism; R65.20 Severe sepsis without septic shock; R50.9 Fever, unspecified; A49.8 Other bacterial infections of unspecified site | CPT/HCPCS: 99222 ==

== ENCOUNTER → 2023-03-25 19:30 | Outpatient (BNV) | payer OTHER, SELFPAY | PROVIDERS: Admitting Provider Physician Assistant; Emergency Provider Emergency Medicine; PCP Internal Medicine; Visit Provider Social Worker | DX: R41.89 Other symptoms and signs involving cognitive functions and awareness (principal); J18.9 Pneumonia, unspecified organism; A41.9 Sepsis, unspecified organism | CPT/HCPCS: 99232 ==

== ENCOUNTER 2023-04-27 15:01 | Outpatient (AMB) | payer OTHER, SELFPAY ==
--- NOTE | 2023-04-27 15:06 | A.OFFVIS_ITS ---
Intake Vital Signs 04/27/23 15:07 Height 4 ft 11 in Weight 127 lb BMI 25.6 Pulse 72 Pulse Source Pulse Oximeter Pulse Oximetry (%) 95 Oxygen Delivery Method Room Air Intake Visit Reasons: COPD Mold Stacker Required: No Allergies carvedilol Allergy (Verified 04/27/23 15:08) Shortness of Breath sertraline [From Zoloft] Allergy (Verified 04/27/23 15:08) Shortness of Breath spironolactone Allergy (Verified 04/27/23 15:08) Shortness of Breath adhesive tape Adverse Reaction (Severe, Verified 04/27/23 15:08) skin tears mirtazapine Adverse Reaction (Severe, Verified 04/27/23 15:08) psychotic episode HPI HPI Comments History of Present Illness Details The patient is an 82 year-old woman with known history of COPD along with chronic bronchitis due apparently has been in usual [facility] until for the last several months where her respiratory status has dramatically worsen. T he patient has had numerous admissions in a short period of time. The patient states that she started developing worsening cough usually congested in nature. She has a hard time expectorating. Suddenly she developed significant respiratory distress with the family notices that she is decompensated very quickly. At that point EMS was called the. Usually the patient is found to be hypoxic and she is brought to the hospital. She has been admitted to normal now about 4 times in a [facility] about 2 times. Her sputum was positive for Pseudomonas aeruginosa and she was treated with ceftazidime. Ultimately she is treated and then subsequently is able to recover partially in that she is sent home. Usually the cycle restarts again. She has been having hard time since she does the hospital recently. They try sending another sputum culture but it was contaminated. In the office she was very congested. We were able to get a sputum sample and also very tenacious greenish in color and also smelling of Pseudomonas consistent with likely pseudomonal lower respiratory infections and pneumonia. The patient did received Xopenex with hypertonic saline with good response. She had been on DuoNeb but I am concerned that is drying up the mucus even more. Therefore will switch over to the Xopenex instead. I did review her CT scan of the chest done at [facility]. She has numerous pulmonary nodules in addition to thickened airways and some bronchiectatic looking airways. Therefore, the patient does have chronic airway disease now worsened by the fact that she is colonized with Pseudomonas. She has had multiple admissions to the hospital and therefore failing IV and oral antibiotics. The only option right now will be to start her inhaled tobramycin. she is already performing chest physical therapy with a flutter valve. She does have significant back pain, therefore, using a percussion vest will potentially cause worsening back pain. 04/19/2022 the patient is here for hospital follow-up visit. She had a event for few weeks. After I evaluated her to ended up with worsening respiratory symptoms and admitted to [facility]. There she was treated with antibiotics and also steroids. She was able to be discharged home. However she again started having difficulties. At home to briefly to start on the inhaled SHY but not enough to warrant a benefit. While in [facility] the patient did undergo a CT scan of the chest that I personally reviewed. The patient did have some areas of bronchitis and hazy opacities and some areas of scarring but ov erall her lung parenchyma was reassuring. She was noted to be short of breath and was found to be significantly anemic. Therefore her Eliquis and aspirin were stopped which were provided prophylactic therapy for clots from her atrial fibrillation. She was evaluated in GI in opted not to undergo colonoscopy due to high risk for respiratory issues. 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 She continues to be off the anticoagulation. She does have a hemoglobin blood work pending. She is going to have that today. Meantime she is using the inhaled tobramycin. It has been affected treating her respiratory symptoms and chest congestion. She still has a cough and sometimes is turbulent and Lopid. 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 Her cough the cord and a chest PT is even more important. She does have the nebulized therapies and also has the Acapella valve. 06/23/2022 the patient is here for pulmonary follow-up visit. The patient is feeling a lot better. She is responding well to the inhaled tobramycin. She is using it 28 days on 20 days off. Although she does develop significant coughing after using the tobramycin. She is using Xopenex prior to minimize on the bronchospasms related to the tobramycin. She also continues use her flutter valve for chest PT. She is doing well from a respiratory status. The patient still continues to be on 10 mg of prednisone. Will going to work on decreasing that some as well. Patient does not have any recent imaging studies to review. 07/26/2022 [facility] She started developing worsening cough productive in nature is been seems to be getting worse in the last few days. She has been off the inhaled tobramycin until today. She did go to urgent care where she was felt to have a chronic cough and was not giving any additional therapies. She was recommended to follow-up with primary care launch leader. She denies any fevers or chills. Denies any sick contacts. Although, she does feel that her symptoms started happening after getting the flu shot. On examination she does have some rhonchi on examination specially when deep breathing. I am hopeful that the inhaled tobramycin will start taking it. She has not had a chest x-ray although she did have a chest x-ray when she was in the hospital back in March of last year demonstrating no acute disease. She ever symptoms have not better we can consider getting additional imaging studies. Otherwise I am hopeful that with increasing her prednisone and starting the inhaled tobramycin and use an expectorant that she will have some improvement. If the patient has not better she is going to call the office next week. 10/03/2022 the patient is here for [facility] follow-up visit. The patient went to rehab after her respiratory issues and developed severe abdominal discomfort. She was readmitted to the hospital with bowel obstruction. She did require surgery. She is healing well now. She is now home. She does continue with inhaled tobramycin. Patient unfortunately does get some wheezing and chest congestion from it. Although seems to be helping. She is off the prednisone. She had been on 5 mg of prednisone. I did recommend she go back on it unless there is any evidence of poor wound healing from her recent surgery. She the patient still has issues with dyspnoea on exertion with minimal activity and also gets tachycardic. Sometimes she wakes up from the middle the night with shortness of breath. We did do a brief walking oximetry in the patient did desaturate down to about 86% just with a few steps became tachycardic. She was then placed on 2 L of oxygen improving her pulse ox. Therefore, the patient does qualify for oxygen I did recommend that she uses 2 L with activity and also with sleep. Will set that up with a local [employer] company. Will continue close monitoring at this time. The patient has had issues with her inhalers. She developed severe thrush from inhaled steroids. Therefore go ahead and send her Alvesco with hopeful placing her inhaled steroid with minimal risk of developing the oral candidiasis. She already tried and failed Flovent. 01/24/2023 the patient is here for a pulmonary follow-up visit. She is here with her daughter. the patient had been hospitalize the hospital. The patient has had issues with her heart in addition with her respiratory status. She was given Augmentin upon discharge. Unfortunately developed significant diarrhea and subsequently diagnosed with C diff colitis. She was placed on p.o. vancomycin. She tolerated it well and her diarrhea has improved. She is currently home now. She just completed the 28 days of inhaled tobramycin. This has been very affecting beneficial for her. Her chest congestion has dramatically improved. Her wheezing also has significantly improved. She still needs to use respiratory therapy. The patient will plan to restart the inhaled tobramycin between 4-6 weeks depending on symptom relief. Also to minimize antibiotic use. 04/27/2023 the patient is here for a pulmonary follow-up visit. Since we last spoke she went back to the hospital. She was diagnosed with pneumonia was again placed on antibiotics. Again a course complicated with C diff colitis. 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 She was treated with p.o. vancomycin again. I explained to the patient and to the daughter that she needs to minimize antibiotic use because it will reasonable result in a very complicated abdominal process. The patient likely has a component of microaspiration likely aspiration pneumonias specially since pneumonias or mainly on the right side. She does have an increased amount of dementia and she is requiring additional care from the family. She is also falling asleep more regularly during the daytime. She is going to start her day program to see if this allows her to be more stimulated and more weight. In the meantime she is off the inhaled tobramycin. In view of her all her complications will go ahead and hold off the tobramycin for 4-6 weeks to see if there is improvement in her GI issues. She will continue with the current respiratory therapy With the Xopenex therapy. And will follow-up in 6 months. If the patient has any worsening symptoms she is to call the office for an earlier assessment. we also spoke briefly about goals of care. Talked about her code status. The patient currently is a full code we did talk about the concerns about her significant comorbidities and being too aggressive with her care. Therefore, I did recommend the patient talk to her daughter further about code status. [facility] Medical History (Updated 04/27/23 @ 23:00 by Carlin Aldana MD) Aspiration pneumonia Clostridioides difficile infection Pneumonia Atrial flutter Pyuria Atelectasis of right lung Encephalopathy chronic History of infection with vancomycin resistant Enterococcus (VRE) Congestive heart failure Heart failure Dyspnea Paroxysmal A-fib COPD (chronic obstructive pulmonary disease) A-fib Acute encephalopathy Anemia Pseudomonas respiratory infection CAD (coronary artery disease) Acute respiratory failure with hypoxia Chronic dyspnea Acute hypokalemia Atrial fibrillation with RVR Anemia GI bleed Pulmonary nodules COPD (chronic obstructive pulmonary disease) Bronchiectasis Pseudomonal pneumonia Surgical History (Updated 04/09/23 @ 00:02 by Emi Dye) H/O umbilical hernia repair (09/18/22) History of quadruple bypass History of hip replacement History of knee replacement History of cholecystectomy Family History Other No family history of cancer Social History Household Members: Family Housing: House Are you a primary care transition manager to a significant other at home: No Do you presently have visiting nurse or other home services: No Alcohol intake: never Patient Tobacco Use Status: Former Tobacco user Quit Date: 2012 Tobacco use type: Cigarette Advance Directives Date on File: 08/24/22 service: No Current occupational status: retired Review of Systems Const Reports daytime sleepiness and Reports fatigue Eyes Reports change in vision ENT Reports hoarseness, Reports nasal congestion and Reports nasal discharge Card Denies chest pain, Reports dyspnea and Reports dyspnea on exertion Resp Denies change in phlegm color, Denies chest congestion, Reports cough, Denies hemoptysis, Denies excessive phlegm production, Reports dyspnea, Reports dyspnea on exertion and Reports wheezing GI Reports no additional complaints Musc Reports abnormal gait, Reports back pain, Reports arthralgias, Reports joint swelling and Reports muscle weakness Skin/Breast Reports rash and Reports unusual bruising Neuro Reports abnormal gait Psych Reports panic attacks Endo Reports fatigue Samir/Lymph Reports easy bruising and Denies lymphadenopathy Aller/Immun Reports wheezing Physical Exam Vital Signs: Last Vital Signs Pulse 72 04/27/23 15:07 Pulse Ox 95 04/27/23 15:07 Oxygen Delivery Method Room Air 04/27/23 15:07 BMI result Body Mass Index 25.6 Const General: comfortable and alert HEENT Head: Yes normal to inspection Neck Neck: Yes supple Chest Chest palpation & inspection: normal inspection of the chest Resp Effort & Inspection: no cough Auscultation: no crackles, no rhonchi, no wheezes, breath sounds present and diminished lung sounds Cardio Rate: regular rate Rhythm: regular rhythm Heart sounds: S1 normal heart sound present, S2 normal heart sound present and Murmur heart sound present GI Palpation (GI): Soft to palpation Auscultation: normal bowel sounds Skin General skin exam: ecchymosis Extrem General: No clubbing and No cyanosis Assessment & Plan Assessment & Plan (1) COPD (chronic obstructive pulmonary disease): Code(s): J44.9 - Chronic obstructive pulmonary disease, unspecified Qualifiers: Chronic bronchitis type: mixed simple and mucopurulent COPD type: chronic bronchitis Qualified Code(s): J41.8 - Mixed simple and mucopurulent chronic bronchitis (2) Pseudomonal pneumonia: Code(s): J15.1 - Pneumonia due to Pseudomonas Qualifiers: Laterality: unspecified laterality Lung location: unspecified part of lung Qualified Code(s): J15.1 - Pneumonia due to Pseudomonas (3) Pulmonary nodules: Code(s): R91.8 - Other nonspecific abnormal finding of lung field (4) Dyspnea: Code(s): R06.00 - Dyspnea, unspecified Qualifiers: Dyspnea type: shortness of breath Qualified Code(s): R06.02 - Shortness of breath (5) Aspiration pneumonia: Code(s): J69.0 - Pneumonitis due to inhalation of food and vomit Qualifiers: Aspiration pneumonia type: unspecified Laterality: unspecified laterality Lung location: unspecified part of lung Qualified Code(s): J69.0 - Pneumonitis due to inhalation of food and vomit Plan holding inhaled Shy 28 days on, 28 days off for 4-6 weeks. stopped Prednisone 5mg daily continue Anoro Xopenex BID hypertonic saline 3% for CPT Continue acapella valve Oxygen 2L with activity and with sleep Goals of care: Did start talking to the patient about code status. F/U 4-6 months Coding Level of Care Code Est Pt Level 4 (07782) Diagnoses Mixed simple and mucopurulent chronic bronchitis J41.8 Chronic bronchitis type: mixed simple and mucopurulent COPD type: chronic bronchitis Pneumonia due to Pseudomonas species, unspecified laterality, unspecified part of lung J15.1 Laterality: unspecified laterality Lung location: unspecified part of lung Pulmonary nodules R91.8 Shortness of breath R06.02 Dyspnea type: shortness of breath Aspiration pneumonia, unspecified aspiration pneumonia type, unspecified laterality, unspecified part of lung J69.0 Aspiration pneumonia type: unspecified Laterality: unspecified laterality Lung location: unspecified part of lung Time Spent (min) 16
[2023-04-27 15:07] VITALS: PULSE 72; O2SAT 95; BMI 25.6
== END 2023-04-27 15:28 | disposition home or self-care (01) ==
PROVIDERS: PCP Internal Medicine; Visit Provider Hospitalist
DX: J41.8 Mixed simple and mucopurulent chronic bronchitis (principal); J15.1 Pneumonia due to Pseudomonas; R91.8 Other nonspecific abnormal finding of lung field; R06.02 Shortness of breath; J69.0 Pneumonitis due to inhalation of food and vomit
CPT/HCPCS: 99214

== ENCOUNTER → 2023-04-27 15:01 | Outpatient (BNVA) | payer OTHER, SELFPAY | PROVIDERS: PCP Internal Medicine; Visit Provider Hospitalist | DX: J41.8 Mixed simple and mucopurulent chronic bronchitis (principal); J15.1 Pneumonia due to Pseudomonas; R91.8 Other nonspecific abnormal finding of lung field; R06.02 Shortness of breath; J69.0 Pneumonitis due to inhalation of food and vomit | CPT/HCPCS: 99212 ==

== ENCOUNTER 2023-09-14 13:09 | Outpatient (AMB) | payer OTHER, SELFPAY ==
[2023-09-14 13:10] VITALS: BMI 25.6
--- NOTE | 2023-09-14 13:10 | A.OFFVIS_ITS ---
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 Required: No Allergies carvedilol Allergy (Verified 09/14/23 13:10) Shortness of Breath sertraline [From Zoloft] Allergy (Verified 09/14/23 13:10) Shortness of Breath spironolactone Allergy (Verified 09/14/23 13:10) Shortness of Breath adhesive tape Adverse Reaction (Severe, Verified 09/14/23 13:10) skin tears mirtazapine Adverse Reaction (Severe, Verified 09/14/23 13:10) psychotic episode HPI HPI Comments History of Present Illness Details The patient is an 82 year-old woman with known history of COPD along with chronic bronchitis due apparently has been in usual state health until for the last several months where her respiratory status has dramatically worsen. The patient has had numerous admissions in a short period of time. The patient states that she started developing worsening cough usually congested in nature. She has a hard time expectorating. Suddenly she developed significant respiratory distress with the family notices that she is decompensated very quickly. At that point EMS was called the. Usually the patient is found to be hypoxic and she is brought to the hospital. She has been admitted to normal now about 4 times in a [facility] about 2 times. Her sputum was positive for Pseudomonas aeruginosa and she was treated with ceftazidime. Ultimately she is treated and then subsequently is able to recover partially in that she is sent home. Usually the cycle restarts again. She has been having hard time since she does the hospital recently. They try sending another sputum culture but it was contaminated. In the office she was very congested. We were able to get a sputum sample and also very tenacious greenish in color and also smelling of Pseudomonas consistent with likely pseudomonal lower respiratory infections and pneumonia. The patient did received Xopenex with hypertonic saline with good response. She had been on DuoNeb but I am concerned that is drying up the mucus even more. Therefore will switch over to the Xopenex instead. I did review her CT scan of the chest done at [facility]. She has numerous pulmonary nodules in addition to thickened airways and some bronchiectatic looking airways. Therefore, the patient does have chronic airway disease now worsened by the fact that she is colonized with Pseudomonas. She has had multiple admissions to the hospital and therefore failing IV and oral antibiotics. The only option right now will be to start her inhaled tobramycin. she is already performing chest physical therapy with a flutter valve. She does have significant back pain, therefore, using a percussion vest will potentially cause worsening back pain. 04/19/2022 the patient is here for hospital follow-up visit. She had a event for few weeks. After I evaluated her to ended up with worsening respiratory symptoms and admitted to [facility]. There she was treated with antibiotics and also steroids. She was able to be discharged home. However she again started having difficulties. At home to briefly to start on the inhaled SHY but not enough to warrant a benefit. While in [place] the patient did undergo a CT scan of the chest that I personally reviewed. The patient did have some areas of bronchitis and hazy opacities and some areas of scarring but overa ll her lung parenchyma was reassuring. She was noted to be short of breath and was found to be significantly anemic. Therefore her Eliquis and aspirin were stopped which were provided prophylactic therapy for clots from her atrial fibrillation. She was evaluated in GI in opted not to undergo colonoscopy due to high risk for respiratory issues. She has yet to follow-up with her shot blaster. She continues to be off the anticoagulation. She does have a hemoglobin blood work pending. She is going to have that today. Meantime she is using the inhaled tobramycin. It has been affected treating her respiratory symptoms and chest congestion. She still has a cough and sometimes is turbulent and Lopid. 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 Her cough the cord and a chest PT is even more important. She does have the nebulized therapies and also has the Acapella valve. 06/23/2022 the patient is here for pulmonary follow-up visit. The patient is feeling a lot better. She is responding well to the inhaled tobramycin. She is using it 28 days on 20 days off. Although she does develop significant coughing after using the tobramycin. She is using Xopenex prior to minimize on the bronchospasms related to the tobramycin. She also continues use her flutter valve for chest PT. She is doing well from a respiratory status. The patient still continues to be on 10 mg of prednisone. Will going to work on decreasing that some as well. Patient does not have any recent imaging studies to review. 07/26/2022 the patient is here for sick v manjinder. She started developing worsening cough productive in nature is been seems to be getting worse in the last few days. She has been off the inhaled tobramycin until today. She did go to urgent care where she was felt to have a chronic cough and was not giving any additional therapies. She was recommended to follow-up with primary care machine boss. She denies any fevers or chills. Denies any sick contacts. Although, she does feel that her symptoms started happening after getting the flu shot. On examination she does have some rhonchi on examination specially when deep breathing. I am hopeful that the inhaled tobramycin will start taking it. She has not had a chest x-ray although she did have a chest x-ray when she was in the hospital back in March of last year demonstrating no acute disease. She ever symptoms have not better we can consider getting additional imaging studies. Otherwise I am hopeful that with increasing her prednisone and starting the inhaled tobramycin and use an expectorant that she will have some improvement. If the patient has not better she is going to call the office next week. 10/03/2022 the patient is here for hospit al follow-up visit. The patient went to rehab after her respiratory issues and developed severe abdominal discomfort. She was readmitted to the hospital with bowel obstruction. She did require surgery. She is healing well now. She is now home. She does continue with inhaled tobramycin. Patient unfortunately does get some wheezing and chest congestion from it. Although seems to be helping. She is off the prednisone. She had been on 5 mg of prednisone. I did recommend she go back on it unless there is any evidence of poor wound healing from her recent surgery. She the patient still has issues with dyspnoea on exertion with minimal activity and also gets tachycardic. Sometimes she wakes up from the middle the night with shortness of breath. We did do a brief walking oximetry in the patient did de saturate down to about 86% just with a few steps became tachycardic. She was then placed on 2 L of oxygen improving her pulse ox. Therefore, the patient does qualify for oxygen I did recommend that she uses 2 L with activity and also with sleep. Will set that up with a local [employer]. Will continue close monitoring at this time. The patient has had issues with her inhalers. She developed severe thrush from inhaled steroids. Therefore go ahead and send her Alvesco with hopeful placing her inhaled steroid with minimal risk of developing the oral candidiasis. She already tried and failed Flovent. 01/24/2023 the patient is here for a pulmonary follow-up visit. She is here with her daughter. the patient had been hospitalize the hospital. The patient has had issues with her heart in addition with her respiratory status. She was given Augmentin upon discharge. Unfortunately developed significant diarrhea and subsequently diagnosed with C diff colitis. She was placed on p.o. vancomycin. She tolerated it well and her diarrhea has improved. She is currently home now. She just completed the 28 days of inhaled tobramycin. This has been very affecting beneficial for her. Her chest congestion has dramatically improved. Her wheezing also has significantly improved. She still needs to use respiratory therapy. The patient will plan to restart the inhaled tobramycin between 4-6 weeks depending on symptom relief. Also to minimize antibiotic use. 04/27/2023 the patient is here for a pulmonary follow-up visit. Since we last spoke she went back to the hospital. She was diagnosed with pneumonia was again placed on antibiotics. Again a course complicated with C diff colitis. 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 She was treated with p.o. vancomycin again. I explained to the patient and to the daughter that she needs to minimize antibiotic use because it will reasonable result in a very complicated abdominal process. The patient likely has a component of microaspiration likely aspiration pneumonias specially since pneumonias or mainly on the right side. She does have an increased amount of dementia and she is requiring additional care from the family. She is also falling asleep more regularly during the daytime. She is going to start her day program to see if this allows her to be more stimulated and more weight. In the meantime she is off the inhaled tobramycin. In view of her all her complications will go ahead and hold off the tobramycin for 4-6 weeks to see if there is improvement in her GI issues. She will continue with the current respiratory therapy With the Xopenex therapy. And will follow-up in 6 months. If the patient has any worsening symptoms she is to call the office for an earlier assessment. we also spoke briefly about goals of care. Talked about her code status. The patient currently is a full code we did talk about the concerns about her significant comorbidities and being too aggressive with her care. Therefore, I did recommend the patient talk to her daughter further about code status. 09/14/2023 the patient has a telehealth vi sit today. Overall she has been doing well. The weather spot so therefore she stayed home. She has not required any prednisone or antibiotics since we last spoke which is very reassuring. This is the longest stent of good health she has had. She is also participating in the day program where she is exposed to a lot of people and she has actually been doing very well with that as well. She continues her respiratory therapy with Xopenex. The patient has not required any other respiratory therapy. She continues use oxygen with good effect. She does complaint of some chest congestion and mucus. Explained to her that she does have chronic bronchitis and she will always make mucus. Although she needs to be monitoring closely the collar the consistency in the frequency of the mucus. If those were to worsen she will call nor for us to treat her for potential infection. [facility] Medical History (Updated 04/27/23 @ 23:00 by Carlin Aldana MD) Aspiration pneumonia Clostridioides difficile infection Pneumonia Atrial flutter Pyuria Atelectasis of right lung Encephalopathy chronic History of infection with vancomycin resistant Enterococcus (VRE) Congestive heart failure Heart failure Dyspnea Paroxysmal A-fib COPD (chronic obstructive pulmonary disease) A-fib Acute encephalopathy Anemia Pseudomonas respiratory infection CAD (coronary artery disease) Acute respiratory failure with hypoxia Chronic dyspnea Acute hypokalemia Atrial fibrillation with RVR Anemia GI bleed Pulmonary nodules COPD (chronic obstructive pulmonary disease) Bronchiectasis Pseudomonal pneumonia Surgical History (Updated 04/09/23 @ 00:02 by Emi Dye) H/O umbilical hernia repair (09/18/22) History of quadruple bypass History of hip replacement History of knee replacement History of cholecystectomy Family History Other No family history of cancer Social History Household Members: Family Housing: House Are you a primary rn critical care to a significant other at home: No Do you presently have visiting nurse or other home services: No Alcohol intake: never Patient Tobacco Use Status: Former Tobacco user Quit Date: 2012 Tobacco use type: Cigarette Advance Directives Date on File: 08/24/22 service: No Current occupational status: retired Review of Systems Const Reports fatigue and Denies fever(s) Eyes Reports change in vision ENT Reports nasal congestion and Reports nasal discharge Card Denies chest pain and Reports dyspnea on exertion Resp Denies change in phlegm color, Denies chest congestion, Reports cough, Denies hemoptysis, Denies excessive phlegm production, Reports dyspnea on exertion and Reports wheezing GI Reports no additional complaints Musc Reports abnormal gait, Reports back pain, Reports arthralgias, Reports joint swelling and Reports muscle weakness Skin/Breast Reports rash and Reports unusual bruising Neuro Reports abnormal gait Psych Reports panic attacks Endo Reports fatigue Samir/Lymph Reports easy bruising and Denies lymphadenopathy Aller/Immun Reports wheezing Physical Exam Vital Signs: BMI result Body Mass Index 25.6 Const General: comfortable Orientation/consciousness: patient oriented x3 Resp Effort & Inspection: able to speak in complete sentences Neuro General: patient oriented x3 Assessment & Plan Assessment & Plan (1) COPD (chronic obstructive pulmonary disease): Code(s): J44.9 - Chronic obstructive pulmonary disease, unspecified Qualifiers: COPD type: chronic bronchitis Chronic bronchitis type: mixed simple and mucopurulent Qualified Code(s): J41.8 - Mixed simple and mucopurulent chronic bronchitis (2) Pseudomonal pneumonia: Code(s): J15.1 - Pneumonia due to Pseudomonas Qualifiers: Laterality: unspecified laterality Lung location: unspecified part of lung Qualified Code(s): J15.1 - Pneumonia due to Pseudomonas (3) Pulmonary nodules: Code(s): R91.8 - Other nonspecific abnormal finding of lung field (4) Dyspnea: Code(s): R06.00 - Dyspnea, unspecified Qualifiers: Dyspnea type: shortness of breath Qualified Code(s): R06.02 - Shortness of breath (5) Aspiration pneumonia: Code(s): J69.0 - Pneumonitis due to inhalation of food and vomit Qualifiers: Aspiration pneumonia type: unspecified Laterality: unspecified laterality Lung location: unspecified part of lung Qualified Code(s): J69.0 - Pneumonitis due to inhalation of food and vomit Plan continue Anoro Xopenex BID hypertonic saline 3% for CPT Continue acapella valve Oxygen 2L with activity and with sleep F/U 6 months Telehealth Telehealth Location of provider rendering services: practice address Location of patient: address on file Patient Identification confirmed using: Name, : Yes Telehealth method: voice only Patient verbally consented to treatment: Yes Patient verbally consented to billing insurance company: Yes Patient informed of any privacy concerns related to visit: Yes Coding Level of Care Code Tele Est Pt Level 4 (54314) Diagnoses Mixed simple and mucopurulent chronic bronchitis J41.8 COPD type: chronic bronchitis Chronic bronchitis type: mixed simple and mucopurulent Pneumonia due to Pseudomonas species, unspecified laterality, unspecified part of lung J15.1 Laterality: unspecified laterality Lung location: unspecified part of lung Pulmonary nodules R91.8 Shortness of breath R06.02 Dyspnea type: shortness of breath Aspiration pneumonia, unspecified aspiration pneumonia type, unspecified laterality, unspecified part of lung J69.0 Aspiration pneumonia type: unspecified Laterality: unspecified laterality Lung location: unspecified part of lung Time Spent (min) 15
== END 2023-09-14 13:32 | disposition home or self-care (01) ==
LOC: HO.HPS 13:09
PROVIDERS: PCP Internal Medicine; Visit Provider Hospitalist
DX: J41.8 Mixed simple and mucopurulent chronic bronchitis (principal); J15.1 Pneumonia due to Pseudomonas; J69.0 Pneumonitis due to inhalation of food and vomit; R91.8 Other nonspecific abnormal finding of lung field
CPT/HCPCS: 99442

== ENCOUNTER → 2023-09-14 13:09 | Outpatient (BNVA) | payer OTHER, SELFPAY | PROVIDERS: PCP Internal Medicine; Visit Provider Hospitalist ==

== ENCOUNTER 2023-10-10 14:32 | Outpatient (AMB) | payer OTHER, SELFPAY ==
--- NOTE | 2023-10-10 14:40 | A.OFFVIS_ITS ---
Vital Signs 10/10/23 14:41 Height 4 ft 11 in BMI Reason not done Patient refused/unable BP 122/58 L Blood Pressure Location Lt brachial Position Sitting Pulse 81 Pulse Source Pulse Oximeter Pulse Oximetry (%) 94 Oxygen Delivery Method Room Air Intake Visit Reasons: Crackles right base Allergies carvedilol Allergy (Verified 10/10/23 14:46) Shortness of Breath sertraline [From Zoloft] Allergy (Verified 10/10/23 14:46) Shortness of Breath spironolactone Allergy (Verified 10/10/23 14:46) Shortness of Breath adhesive tape Adverse Reaction (Severe, Verified 10/10/23 14:46) skin tears mirtazapine Adverse Reaction (Severe, Verified 10/10/23 14:46) psychotic episode HPI HPI Crackles right base: Details: Jenifer is a pleasant 82 year old female, former smoker, with underlying COPD, bronchiectasis, h/o acute respiratory failure, CAD, pulmonary nodules and h/o aspiration pneumonia. At baseline she is moderately controlled on Anoro, xopenex, and ventolin. She presents today accompanied by daughter. She reports since Monday patient developed wheezing and productive cough with that has worsened over the last few days. Covid negative. Both caregivers have been sick. She has been using mucinex with good effect as well as tylenol and xopenex QID. Her daughter reports no change in her oxygen saturation. [facility] Medical History (Updated 10/10/23 @ 15:18 by Lissy Patricio NP) Aspiration pneumonia Clostridioides difficile infection Pneumonia Atrial flutter Pyuria Atelectasis of right lung Encephalopathy chronic History of infection with vancomycin resistant Enterococcus (VRE) Congestive heart failure Heart failure Dyspnea Paroxysmal A-fib COPD (chronic obstructive pulmonary disease) A-fib Acute encephalopathy Anemia Pseudomonas respiratory infection CAD (coronary artery disease) Acute respiratory failure with hypoxia Chronic dyspnea Acute hypokalemia Atrial fibrillation with RVR Anemia GI bleed Pulmonary nodules COPD (chronic obstructive pulmonary disease) Bronchiectasis Pseudomonal pneumonia Surgical History (Updated 04/09/23 @ 00:02 by Emi Dye) H/O umbilical hernia repair (09/18/22) History of quadruple bypass History of hip replacement History of knee replacement History of cholecystectomy Family History Other No family history of cancer Social History Household Members: Family Housing: House Are you a primary residential care officer to a significant other at home: No Do you presently have visiting nurse or other home services: No Alcohol intake: never Patient Tobacco Use Status: Former Tobacco user Quit Date: 2012 Tobacco use type: Cigarette Advance Directives Date on File: 08/24/22 service: No Current occupational status: retired Review of Systems Const Denies chills, Denies excessive sweating, Denies fever(s), Denies headache(s) and Denies night sweats Eyes Denies dry eyes, Denies irritation and Denies itchy eyes ENT Reports Normal hearing present, Denies headache(s), Denies nasal congestion, Denies nasal discharge, Denies post nasal drip and Denies sore throat Card Denies chest pain, Denies chest pain at rest, Denies chest pain with activity, Denies claudication, Denies leg edema, Denies orthopnea and Denies paroxysmal nocturnal dyspnea Resp Denies chest congestion, Denies excessive phlegm production, Denies pain on inspiration, Denies pain with cough and Denies stridor Musc Denies myalgias Neuro Reports Normal hearing present and Denies headache(s) Endo Denies excessive sweating Samir/Lymph Denies lymphadenopathy Aller/Immun Denies itchy eyes and Denies seasonal rhinorrhea Physical Exam Vital Signs: Last Vital Signs Pulse 81 10/10/23 14:41 BP 122/58 L 10/10/23 14:41 Pulse Ox 94 10/10/23 14:41 Oxygen Delivery Method Room Air 10/10/23 14:41 Const General: cooperative, healthy appearing, comfortable, no acute distress, well developed and alert Nutritional Appearance: obese Orientation/consciousness: patient oriented x3 Limitations: wheelchair HEENT Head: Yes normal to inspection, Yes normocephalic and Yes atraumatic Ears: hearing grossly normal bilaterally and external ears normal Eyes General: appearance normal, both eyes and all related structures Eyelids: Yes eyelids normal Sclerae: sclerae normal EOM: EOMs intact bilaterally Neck Neck: Yes normal visual inspection and Yes no lymphadenopathy Lymphatic: no lymphadenopathy noted Chest Chest palpation & inspection: normal inspection of the chest Resp Effort & Inspection: normal respiratory effort, able to speak in complete sentences, audible wheezes, Actively coughing, no stridor, not tachypneic, no tripod positioning and no use of accessory muscles Auscultation: crackles, rhonchi and wheezes Cardio Jugular venous distension: no JVD Rate: regular rate Rhythm: regular rhythm Skin Other: warm, dry General skin exam: no rashes or lesions noted Neuro General: patient oriented x3 Cranial nerves: Yes Normal hearing present Cognition (Neuro): normal cognition Gait exam (Neuro): Normal gait present Psych Appearance: grossly normal and well kempt Speech and movement: Normal speech and movement present and Clear speech present Affect: normal affect Attitude: cooperative Thought process: Normal thought process present Thought content: Normal thought content present Insight: Good insight present (Psych) Judgement: Good judgement present (Psych) Assessment & Plan Assessment & Plan (1) COPD (chronic obstructive pulmonary disease): Code(s): J44.9 - Chronic obstructive pulmonary disease, unspecified Category: Medical Qualifiers: COPD type: chronic bronchitis Chronic bronchitis type: mixed simple and mucopurulent Qualified Code(s): J41.8 - Mixed simple and mucopurulent chronic bronchitis (2) Pulmonary nodules: Code(s): R91.8 - Other nonspecific abnormal finding of lung field Category: Medical (3) Dyspnea: Code(s): R06.00 - Dyspnea, unspecified Category: Medical Qualifiers: Dyspnea type: shortness of breath Qualified Code(s): R06.02 - Shortness of breath Plan Will treat bronchitic symptoms with doxycyline and prednisone. Patient with rhonchi throughout and faint inspiratory bibasilar crackles, will send for CXR. Patient aware if symptoms worsen, to seek emergent care. All questions were answered and patient is in agreement of plan. Will follow up for regularly scheduled appointment or sooner if needed. Orders: Orders XR chest 2V Today R05.9 - Cough, unspecified Medications: New prednisone 40 mg (2 x 20 mg) PO DAILY 10 tabs 0RF doxycycline hyclate 100 mg PO BID 14 caps 0RF Coding Level of Care Code Est Pt Level 4 (76687) Diagnoses Mixed simple and mucopurulent chronic bronchitis J41.8 COPD type: chronic bronchitis Chronic bronchitis type: mixed simple and mucopurulent Pulmonary nodules R91.8 Shortness of breath R06.02 Dyspnea type: shortness of breath
[2023-10-10 14:41] VITALS: BP 122/58; PULSE 81; O2SAT 94
== END 2023-10-10 15:33 | disposition home or self-care (01) ==
PROVIDERS: PCP Internal Medicine; Visit Provider Nurse Practitioner Family
DX: J41.8 Mixed simple and mucopurulent chronic bronchitis (principal); R91.8 Other nonspecific abnormal finding of lung field; R06.02 Shortness of breath
CPT/HCPCS: 99214

== ENCOUNTER → 2023-10-10 14:32 | Outpatient (BNVA) | payer OTHER, SELFPAY | PROVIDERS: PCP Internal Medicine; Visit Provider Nurse Practitioner Family | DX: J41.8 Mixed simple and mucopurulent chronic bronchitis (principal); R91.8 Other nonspecific abnormal finding of lung field; R06.02 Shortness of breath | CPT/HCPCS: 99212 ==

== ENCOUNTER 2023-10-11 15:04 | Outpatient (REF) | payer OTHER, SELFPAY ==
--- NOTE | ~2023-10-11 | XR_ITS ---
EXAMINATION: XR CHEST CLINICAL INFORMATION: Cough COMPARISON: Previous chest x-ray March 2023 TECHNIQUE: 2 views of the chest were obtained. FINDINGS: The cardiac silhouette is enlarged but stable. There are median sternotomy wires and mediastinal clips. Hilar and mediastinal contours are unremarkable. The lung volumes are low. There is bilateral subsegmental atelectasis. Lungs are otherwise clear. No pleural effusion or pneumothorax. There are lower thoracic vertebral body compression fractures. There is degenerative changes of the spine and shoulders. XR/XR chest 2V IMPRESSION: Stable enlargement of the cardiac silhouette. Low lung volumes and bilateral subsegmental atelectasis.
== END 2023-10-11 15:05 | disposition home or self-care (01) ==
LOC: HO.XRAY 15:04
PROVIDERS: PCP Internal Medicine; Visit Provider Nurse Practitioner Family
DX: R05.9 Cough, unspecified (principal)
CPT/HCPCS: 71046

== ENCOUNTER 2023-11-09 14:01 | Outpatient (AMB) | payer OTHER, SELFPAY ==
--- NOTE | 2023-11-09 14:24 | MHC.OFFVIS ---
Vital Signs 11/09/23 14:25 Height 4 ft 11 in BP 120/64 Blood Pressure Location Lt brachial Position Sitting Pulse 91 Pulse Source Pulse Oximeter Pulse Oximetry (%) 94 Oxygen Delivery Method Room Air Intake Visit Reasons: productive cough/wheeze Intake Note: pt is here for a sick visit for wheeze, and congestion that started last Monday and daughter would like to nip it, so she doesn't end up in the hospital. 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 Allergies carvedilol Allergy (Verified 11/09/23 14:59) Shortness of Breath sertraline [From Zoloft] Allergy (Verified 11/09/23 14:59) Shortness of Breath spironolactone Allergy (Verified 11/09/23 14:59) Shortness of Breath adhesive tape Adverse Reaction (Severe, Verified 11/09/23 14:59) skin tears mirtazapine Adverse Reaction (Severe, Verified 11/09/23 14:59) psychotic episode Medication List - Last Reconciled 11/09/23 by Sasha Barnes MD acetaminophen 650 mg PO Q6H PRN albuterol sulfate 90 mcg/actuation (Ventolin HFA) 2 puffs inhalation Q4-6H PRN aspirin 81 mg PO DAILY atorvastatin (Lipitor) 40 mg PO BEDTIME cyanocobalamin (vitamin B-12) 1,000 mcg PO DAILY ferrous sulfate 325 mg PO DAILY fluticasone propionate 50 mcg/actuation 1 spray intranasal BID inhalational spacing device (Aerochamber MV spacer) As directed isosorbide mononitrate ER 30 mg PO DAILY Lactobacillus acidophilus 500,000,000 cells PO DAILY levalbuterol HCl 1.25 mg (3 mL) inhalation QID metoprolol tartrate 25 mg See Protocol PO BID montelukast 10 mg PO BEDTIME multivitamin 1 tab PO DAILY nebulizers As directed nystatin 1 appl See Protocol topical BID PRN pantoprazole 40 mg PO BID potassium chloride ER 20 mEq PO DAILY quetiapine 50 mg PO BEDTIME thiamine HCl (vitamin B1) 100 mg PO BID torsemide 20 mg PO DAILY umeclidinium-vilanterol 62.5-25 mcg/actuation (Anoro Ellipta) 1 ea inhalation DAILY 30 days Do you need a note to return to daycare/school/sports/work: No HPI HPI productive cough/wheeze: Details: 82 years old female is the a case of chronic obstructive pulmonary disease, she is somewhat prone to have recurrent respiratory infection, and has difficulty in expectorating mucus. She can not steroids because she develops thrush very quickly. She is being treated with updrafts of the levalbuterol 3 times a day, Anoro Ellipta 1 inhalation daily, and ProAir 2 puffs Q 4-6 hours p.r.n.. Her daughter is very attentive to her needs she make sure that mom uses incentive spirometryDevice 3 times a day as well as a chest vibrator. Jenifer was treated for a low-grade respiratory infection about a month ago with short course of prednisone and doxycycline. Chest x-ray showed bibasilar atelectasis, but no definite pneumonia. Now for the past few days she is havingsed cough and congested feeling, and she is brought in for an urgent visit, because daughter is afraid that she may develop pneumonia and end up in the hospital . [facility] [place] Medical History (Updated 11/09/23 @ 16:35 by Sasha Barnes MD) Mild bibasilar atelectasis Aspiration pneumonia Clostridioides difficile infection Pneumonia Atrial flutter Pyuria Atelectasis of right lung Encephalopathy chronic History of infection with vancomycin resistant Enterococcus (VRE) Congestive heart failure Heart failure Dyspnea Paroxysmal A-fib COPD (chronic obstructive pulmonary disease) A-fib Acute encephalopathy Anemia Pseudomonas respiratory infection CAD (coronary artery disease) Acute respiratory failure with hypoxia Chronic dyspnea Acute hypokalemia Atrial fibrillation with RVR Anemia GI bleed Pulmonary nodules COPD (chronic obstructive pulmonary disease) Bronchiectasis Pseudomonal pneumonia Surgical History H/O umbilical hernia repair (09/18/22) History of quadruple bypass History of hip replacement History of knee replacement History of cholecystectomy Family History Other No family history of cancer Social History Household Members: Family Housing: House Are you a primary career technical counselor to a significant other at home: No Do you presently have visiting nurse or other home services: No Alcohol intake: never Patient Tobacco Use Status: Former Tobacco user Tobacco use type: Cigarette Advance Directives Date on File: 08/24/22 service: No Current occupational status: retired Review of Systems Const Denies chills, Denies excessive sweating, Denies fever(s), Denies headache(s) and Denies night sweats Eyes Denies dry eyes, Denies irritation and Denies itchy eyes ENT Reports Normal hearing present, Denies headache(s), Denies nasal congestion, Denies nasal discharge, Denies post nasal drip and Denies sore throat Card Denies chest pain, Denies chest pain at rest, Denies chest pain with activity, Denies claudication, Denies leg edema, Denies orthopnea and Denies paroxysmal nocturnal dyspnea Resp Denies chest congestion, Denies excessive phlegm production, Denies pain on inspiration, Denies pain with cough and Denies stridor Musc Denies myalgias Neuro Reports Normal hearing present and Denies headache(s) Endo Denies excessive sweating Samir/Lymph Denies lymphadenopathy Aller/Immun Denies itchy eyes and Denies seasonal rhinorrhea Physical Exam Vital Signs: Last Vital Signs Pulse 91 11/09/23 14:25 BP 120/64 11/09/23 14:25 Pulse Ox 94 11/09/23 14:25 Oxygen Delivery Method Room Air 11/09/23 14:25 Const General: cooperative, comfortable, no acute distress, well developed and alert Nutritional Appearance: obese Orientation/consciousness: patient oriented x3 Limitations: wheelchair HEENT Head: Yes normal to inspection, Yes normocephalic and Yes atraumatic Ears: hearing grossly normal bilaterally and external ears normal Eyes General: appearance normal, both eyes and all related structures Eyelids: Yes eyelids normal Sclerae: sclerae normal EOM: EOMs intact bilaterally Neck Neck: Yes normal visual inspection and Yes no lymphadenopathy Lymphatic: no lymphadenopathy noted Chest Chest palpation & inspection: normal inspection of the chest, normal palpation of entire chest wall and no tenderness Resp Other: Percussion note resonant. breath sounds are distant with prolonged expiratory phase. There are inspiratory crackles over the right base No wheezes. Cardio Jugular venous distension: no JVD Rate: regular rate Rhythm: regular rhythm Skin Other: warm, dry General skin exam: no rashes or lesions noted Neuro General: patient oriented x3 Cranial nerves: Yes Normal hearing present Cognition (Neuro): normal cognition Gait exam (Neuro): Normal gait present Psych Appearance: grossly normal and well kempt Speech and movement: Normal speech and movement present and Clear speech present Affect: normal affect Attitude: cooperative Thought process: Normal thought process present Thought content: Normal thought content present Insight: Good insight present (Psych) Judgement: Good judgement present (Psych) Assessment & Plan Assessment & Plan (1) COPD (chronic obstructive pulmonary disease): Comment: SHE IS KNOWN TO HAVE COPD WELL BRONCHIECTASIS. PRONE TO GET FREQUENT EXACERBATIONS. Code(s): J44.9 - Chronic obstructive pulmonary disease, unspecified Category: Medical Qualifiers: COPD type: chronic bronchitis Chronic bronchitis type: mixed simple and mucopurulent Qualified Code(s): J41.8 - Mixed simple and mucopurulent chronic bronchitis Plan: SEE BELOW. (2) Bronchiectasis: Comment: THE PREVIOUS NOTES INDICATE THAT IN ADDITION TO COPD SHE ALSO HAS BRONCHIECTASIS, AND THIS MAKES HER MORE PRONE TO HAVE RECURRENT RESPIRATORY INFECTIONS. Code(s): J47.9 - Bronchiectasis, uncomplicated Category: Medical Plan: SLEEP BELOW (3) Mild bibasilar atelectasis: Comment: PER EXAMINATION SHE HAS INSPIRATORY CRACKLES OVER THE BASES ESPECIALLY OVER THE RIGHT BASE. HER CHEST X-RAY LAST MONTH DID SHOW BIBASILAR ATELECTASIS. THIS IS BECAUSE SHE IS NOT ABLE TO TAKE DEEP BREATHS. Code(s): J98.11 - Atelectasis Category: Medical Plan: EXPLAINED TO THE PATIENT AND HER DAUGHTER. HER DATA TAKES GOOD CARE OF MOM. EXPLAINED THAT SHE SHOULD DO INCENTIVE SPIROMETRY EXERCISES AND ALSO USE THE VIBRATOR DEVICE TO 2 3 TIMES A DAY. Medications: New prednisone 10 mg PO BID 7 days 14 tabs 0RF COPD EXCERBATION doxycycline hyclate 100 mg PO BID 7 days 14 tabs 0RF BRONCHITIS Scribe Plan - Not visible on output: This elderly patient has chronic obstructive pulmonary disorder as well as bronchiectasis. she is nonsmoker, tends to retain secretions, and prone to have pneumonia. She has increased cough with inability to expectoration since last week. She was treated for a in acute exacerbation about a month. chest x-ray showed bibasilar atelectasis On examination today Carlo hear some inspiratory crackles over the right base, which are probably due to chronic atelectasis / bronchiectasis of the right base. Her daughter is quite concerned and is afraid that she may develop pneumonia and end up in the hospital. PLAN: SHE IS ADVISED TO CONTINUEUSING LEVALBUTEROL SOLUTION IN THE NEBULIZER 3 TIMES A DAY CONTINUE ANORO ELLIPTA 1 INHALATION DAILY. CONTINUE TO USE PROAIR WITH THE SPACER 2 PUFFS Q 4-6 HOURS P.R.N.. I WOULD TREAT WITH A SHORT COURSE OF LOW-DOSE PREDNISONE AND ALSO WITH DOXYCYCLINE. CONTINUE TO USE THE VIBRATOR DEVICE THREE TIES A DAY AND ALSO INCENTIVE SPIROMETRY 3 TIMES A DAY. I HAVE REQUESTED THE STAFF TO GIVE HER APPOINTMENT WITH DR. SALDANA, TO BE CHECKED IN 4-6 WEEKS. Coding Level of Care Code Est Pt Level 4 (34871) Diagnoses Mixed simple and mucopurulent chronic bronchitis J41.8 COPD type: chronic bronchitis Chronic bronchitis type: mixed simple and mucopurulent Bronchiectasis J47.9 Mild bibasilar atelectasis J98.11
[2023-11-09 14:25] VITALS: BP 120/64; PULSE 91; O2SAT 94
== END 2023-11-09 15:01 | disposition home or self-care (01) ==
PROVIDERS: PCP Internal Medicine; Visit Provider Internal Medicine
DX: J41.8 Mixed simple and mucopurulent chronic bronchitis (principal); J47.9 Bronchiectasis, uncomplicated; J98.11 Atelectasis
CPT/HCPCS: 99214

== ENCOUNTER → 2023-11-09 14:01 | Outpatient (BNVA) | payer OTHER, SELFPAY | PROVIDERS: PCP Internal Medicine; Visit Provider Internal Medicine | DX: J41.8 Mixed simple and mucopurulent chronic bronchitis (principal); J47.9 Bronchiectasis, uncomplicated; J98.11 Atelectasis | CPT/HCPCS: 99212 ==

== ENCOUNTER 2023-12-13 11:25 | Outpatient (AMB) | payer OTHER, SELFPAY ==
[2023-12-13 11:30] VITALS: PULSE 81; O2SAT 94; BMI 25.6
--- NOTE | 2023-12-13 11:30 | MHC.OFFVIS ---
Vital Signs 12/13/23 11:30 Height 4 ft 11 in Weight 126 lb 15.78 oz BMI 25.6 Pulse 81 Pulse Source Pulse Oximeter Pulse Oximetry (%) 94 Oxygen Delivery Method Room Air Intake Visit Reasons: Productive Cough/Wheeze Child Care Worker Required: No Allergies carvedilol Allergy (Verified 12/13/23 11:31) Shortness of Breath sertraline [From Zoloft] Allergy (Verified 12/13/23 11:31) Shortness of Breath spironolactone Allergy (Verified 12/13/23 11:31) Shortness of Breath adhesive tape Adverse Reaction (Severe, Verified 12/13/23 11:31) skin tears mirtazapine Adverse Reaction (Severe, Verified 12/13/23 11:31) psychotic episode HPI Comments Details: The patient is an 83 year-old woman with known history of COPD along with chronic bronchitis due apparently has been in usual state health until for the last several months where her respiratory status has dramatically worsen. The patient has had numerous admissions in a short period of time. The patient states that she started developing worsening cough usually congested in nature. She has a hard time expectorating. Suddenly she developed significant respiratory distress with the family notices that she is decompensated very quickly. At that point EMS was called the. Usually the patient is found to be hypoxic and she is brought to the hospital. She has been admitted to normal now about 4 times in a [facility] about 2 times. Her sputum was positive for Pseudomonas aeruginosa and she was treated with ceftazidime. Ultimately she is treated and then subsequently is able to recover partially in that she is sent home. Usually the cycle restarts again. She has been having hard time since she does the hospital recently. They try sending another sputum culture but it was contaminated. In the office she was very congested. We were able to get a sputum sample and also very tenacious greenish in color and also smelling of Pseudomonas consistent with likely pseudomonal lower respiratory infections and pneumonia. The patient did received Xopenex with hypertonic saline with good response. She had been on DuoNeb but I am concerned that is drying up the mucus even more. Therefore will switch over to the Xopenex instead. I did review her CT scan of the chest done at [facility]. She has numerous pulmonary nodules in addition to thickened airways and some bronchiectatic looking airways. Therefore, the patient does have chronic airway disease now worsened by the fact that she is colonized with Pseudomonas. She has had multiple admissions to the hospital and therefore failing IV and oral antibiotics. The only option right now will be to start her inhaled tobramycin. she is already performing chest physical therapy with a flutter valve. She does have significant back pain, therefore, using a percussion vest will potentially cause worsening back pain. 04/19/2022 the patient is here for hospital follow-up visit. She had a event for few weeks. After I evaluated her to ended up with worsening respiratory symptoms and admitted to [facility]. There she was treated with antibiotics and also steroids. She was able to be discharged home. However she again started having difficulties. At home to briefly to start on the inhaled SHY but not enough to warrant a benefit. While in [place] the patient did undergo a CT scan of the chest that I personally reviewed. The patient did have some areas of bronchitis and hazy opacities and some areas of scarring but overall her lung parenchyma was reassuring. She was noted to be short of breath and was found to be significantly anemic. Therefore her Eliquis and aspirin were stopped which were provided prophylactic therapy for clots from her atrial fibrillation. She was evaluated in GI in opted not to undergo colonoscopy due to high risk for respiratory issues. She has yet to follow-up with her skills instructor. She continues to be off the anticoagulation. She does have a hemoglobin blood work pending. She is going to have that today. Meantime she is using the inhaled tobramycin. It has been affected treating her respiratory symptoms and chest congestion. She still has a cough and sometimes is turbulent and Lopid. 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 Her cough the cord and a chest PT is even more important. She does have the nebulized therapies and also has the Acapella valve. 06/23/2022 the patient is here for pulmonary follow-up visit. The patient is feeling a lot better. She is responding well to the inhaled tobramycin. She is using it 28 days on 20 days off. Although she does develop significant coughing after using the tobramycin. She is using Xopenex prior to minimize on the bronchospasms related to the tobramycin. She also continues use her flutter valve for chest PT. She is doing well from a respiratory status. The patient still continues to be on 10 mg of prednisone. Will going to work on decreasing that some as well. Patient does not have any recent imaging studies to review. 07/26/2022 the patient is here for sick visit. She started developing worsening cough productive in nature is been seems to be getting worse in the last few days. She has been off the inhaled tobramycin until today. She did go to urgent care where she was felt to have a chronic cough and was not giving any additional therapies. She was recommended to follow-up with primary care operating theatre technician. She denies any fevers or chills. Denies any sick contacts. Although, she does feel that her symptoms started happening after getting the flu shot. On examination she does have some rhonchi on examination specially when deep breathing. I am hopeful that the inhaled tobramycin will start taking it. She has not had a chest x-ray although she did have a chest x-ray when she was in the hospital back in March of last year demonstrating no acute disease. She ever symptoms have not better we can consider getting additional imaging studies. Otherwise I am hopeful that with increasing her prednisone and starting the inhaled tobramycin and use an expectorant that she will have some improvement. If the patient has not better she is going to call the office next week. 10/03/2022 the patient is here for hospital follow-up visit. The patient went to rehab after her respiratory issues and developed severe abdominal discomfort. She was readmitted to the hospital with bowel obstruction. She did require surgery. She is healing well now. She is now home. She does continue with inhaled tobramycin. Patient unfortunately does get some wheezing and chest congestion from it. Although seems to be helping. She is off the prednisone. She had been on 5 mg of prednisone. I did recommend she go back on it unless there is any evidence of poor wound healing from her recent surgery. She the patient still has issues with dyspnoea on exertion with minimal activity and also gets tachycardic. Sometimes she wakes up from the middle the night with shortness of breath. We did do a brief walking oximetry in the patient did desaturate down to about 86% just with a few steps became tachycardic. She was then placed on 2 L of oxygen improving her pulse ox. Therefore, the patient does qualify for oxygen I did recommend that she uses 2 L with activity and also with sleep. Will set that up with a local [employer] company. Will continue close monitoring at this time. The patient has had issues with her inhalers. She developed severe thrush from inhaled steroids. Therefore go ahead and send her Alvesco with hopeful placing her inhaled steroid with minimal risk of developing the oral candidiasis. She already tried and failed Flovent. 01/24/2023 the patient is here for a pulmonary follow-up visit. She is here with her daughter. the patient had been hospitalize the hospital. The patient has had issues with her heart in addition with her respiratory status. She was given Augmentin upon discharge. Unfortunately developed significant diarrhea and subsequently diagnosed with C diff colitis. She was placed on p.o. vancomycin. She tolerated it well and her diarrhea has improved. She is currently home now. She just completed the 28 days of inhaled tobramycin. This has been very affecting beneficial for her. Her chest congestion has dramatically improved. Her wheezing also has significantly improved. She still needs to use respiratory therapy. The patient will plan to restart the inhaled tobramycin between 4-6 weeks depending on symptom relief. Also to minimize antibiotic use. 04/27/2023 the patient is here for a pulmonary follow-up visit. Since we last spoke she went back to the hospital. She was diagnosed with pneumonia was again placed on antibiotics. Again a course complicated with C diff colitis. 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 She was treated with p.o. vancomycin again. I explained to the patient and to the daughter that she needs to minimize antibiotic use because it will reasonable result in a very complicated abdominal process. The patient likely has a component of microaspiration likely aspiration pneumonias specially since pneumonias or mainly on the right side. She does have an increased amount of dementia and she is requiring additional care from the family. She is also falling asleep more regularly during the daytime. She is going to start her day program to see if this allows her to be more stimulated and more weight. In the meantime she is off the inhaled tobramycin. In view of her all her complications will go ahead and hold off the tobramycin for 4-6 weeks to see if there is improvement in her GI issues. She will continue with the current respiratory therapy With the Xopenex therapy. And will follow-up in 6 months. If the patient has any worsening symptoms she is to call the office for an earlier assessment. we also spoke briefly about goals of care. Talked about her code status. The patient currently is a full code we did talk about the concerns about her significant comorbidities and being too aggressive with her care. Therefore, I did recommend the patient talk to her daughter further about code status. 09/14/2023 the patient has a telehealth visit today. Overall she has been doing well. The weather spot so therefore she stayed home. She has not required any prednisone or antibiotics since we last spoke which is very reassuring. This is the longest stent of good health she has had. She is also participating in the day program where she is exposed to a lot of people and she has actually been doing very well with that as well. She continues her respiratory therapy with Xopenex. The patient has not required any other respiratory therapy. She continues use oxygen with good effect. She does complaint of some chest congestion and mucus. Explained to her that she does have chronic bronchitis and she will always make mucus. Although she needs to be monitoring closely the collar the consistency in the frequency of the mucus. If those were to worsen she will call nor for us to treat her for potential infection. 12/13/2023 the patient is here for a pulmonary follow-up visit. She was in her usual state health until the last week when she started developing worsening cough chest congestion. For another breath. Hard time expectorating. Moderate severity. Denied any fevers or chills. The mucus was colored. She does have history of Pseudomonas. At this start her on levofloxacin and also prednisone. Today she has already feeling a little better. Although the family is concerned that she has coming to the end of the treatment still congested and coughing although not as bad. The patient still has some rhonchi and wheezing on examination. I am concerned about the use of quinolones because of the possibility of tendonitis and also the risk of C diff colitis. At the same time the patient does have chronic airway disease with significant bronchiectasis. Therefore, I will give another 10 days but a low dose levofloxacin and a lower dose prednisone. He should continue with her CPT therapy. Continue with the nebulized therapy. She has been using the oxygen with good effect. Otherwise the patient is feeling a little bit better. Her last chest x-ray personally by me from 10/30/2023 with some chronic changes decreased lung volumes and some atelectasis at the bases. Further recommendation based on forthcoming data. The patient will follow-up in 3-4 months. [facility] Medical History (Updated 12/14/23 @ 23:11 by Carlin Aldana MD) Mild bibasilar atelectasis Aspiration pneumonia Clostridioides difficile infection Pneumonia Atrial flutter Pyuria Atelectasis of right lung Encephalopathy chronic History of infection with vancomycin resistant Enterococcus (VRE) Congestive heart failure Heart failure Dyspnea Paroxysmal A-fib COPD (chronic obstructive pulmonary disease) A-fib Acute encephalopathy Anemia Pseudomonas respiratory infection CAD (coronary artery disease) Acute respiratory failure with hypoxia Chronic dyspnea Acute hypokalemia Atrial fibrillation with RVR Anemia GI bleed Pulmonary nodules COPD (chronic obstructive pulmonary disease) Bronchiectasis Pseudomonal pneumonia Surgical History H/O umbilical hernia repair (09/18/22) History of quadruple bypass History of hip replacement History of knee replacement History of cholecystectomy Family History Other No family history of cancer Social History Household Members: Family Housing: House Are you a primary home health care coordinator to a significant other at home: No Do you presently have visiting nurse or other home services: No Alcohol intake: never Patient Tobacco Use Status: Former Tobacco user Tobacco use type: Cigarette Advance Directives Date on File: 08/24/22 service: No Current occupational status: retired Review of Systems Const Denies fever(s) Eyes Reports change in vision ENT Reports nasal congestion and Reports nasal discharge Card Denies chest pain and Reports dyspnea on exertion Resp Reports change in phlegm color, Reports chest congestion, Reports cough, Denies hemoptysis, Denies excessive phlegm production, Reports dyspnea on exertion and Reports wheezing GI Reports no additional complaints Musc Reports abnormal gait, Reports back pain, Reports arthralgias, Reports joint swelling and Reports muscle weakness Skin/Breast Reports rash and Reports unusual bruising Neuro Reports abnormal gait Psych Reports panic attacks Samir/Lymph Reports easy bruising and Denies lymphadenopathy Aller/Immun Reports wheezing Physical Exam Vital Signs: Last Vital Signs Pulse 81 12/13/23 11:30 Pulse Ox 94 12/13/23 11:30 Oxygen Delivery Method Room Air 12/13/23 11:30 BMI result Body Mass Index 25.6 Const General: comfortable and alert HEENT Head: Yes normal to inspection Neck Neck: Yes supple Chest Chest palpation & inspection: normal inspection of the chest Resp Effort & Inspection: no cough Auscultation: no crackles, rhonchi, no wheezes, breath sounds present and diminished lung sounds Cardio Rate: regular rate Rhythm: regular rhythm Heart sounds: S1 normal heart sound present, S2 normal heart sound present and Murmur heart sound present GI Palpation (GI): Soft to palpation Auscultation: normal bowel sounds Skin General skin exam: ecchymosis Extrem General: No clubbing and No cyanosis Assessment & Plan Assessment & Plan (1) COPD (chronic obstructive pulmonary disease): Code(s): J44.9 - Chronic obstructive pulmonary disease, unspecified Category: Medical Qualifiers: COPD type: COPD with acute lower respiratory infection Qualified Code(s): J44.0 - Chronic obstructive pulmonary disease with (acute) lower respiratory infection (2) Pseudomonal pneumonia: Code(s): J15.1 - Pneumonia due to Pseudomonas Category: Medical Qualifiers: Laterality: unspecified laterality Lung location: unspecified part of lung Qualified Code(s): J15.1 - Pneumonia due to Pseudomonas (3) Pulmonary nodules: Code(s): R91.8 - Other nonspecific abnormal finding of lung field Category: Medical (4) Dyspnea: Code(s): R06.00 - Dyspnea, unspecified Category: Medical Qualifiers: Dyspnea type: shortness of breath Qualified Code(s): R06.02 - Shortness of breath (5) Aspiration pneumonia: Code(s): J69.0 - Pneumonitis due to inhalation of food and vomit Category: Medical Qualifiers: Aspiration pneumonia type: unspecified Laterality: unspecified laterality Lung location: unspecified part of lung Qualified Code(s): J69.0 - Pneumonitis due to inhalation of food and vomit Plan Levaquin 500->250 Prednisone taper continue Anoro Xopenex BID hypertonic saline 3% for CPT Continue acapella valve Oxygen 2L with activity and with sleep F/U 3-4 months Medications: New prednisone PO daily; Take 1 tab daily x 10 days 10 mg PO DAILY 10 days 10 tabs 0RF levofloxacin 250 mg PO DAILY 10 days 10 tabs 0RF Coding Level of Care Code Est Pt Level 4 (84806) Diagnoses Chronic obstructive pulmonary disease with acute lower respiratory infection J44.0 COPD type: COPD with acute lower respiratory infection Pneumonia due to Pseudomonas species, unspecified laterality, unspecified part of lung J15.1 Laterality: unspecified laterality Lung location: unspecified part of lung Pulmonary nodules R91.8 Shortness of breath R06.02 Dyspnea type: shortness of breath Aspiration pneumonia, unspecified aspiration pneumonia type, unspecified laterality, unspecified part of lung J69.0 Aspiration pneumonia type: unspecified Laterality: unspecified laterality Lung location: unspecified part of lung Time Spent (min) 17
== END 2023-12-13 11:49 | disposition home or self-care (01) ==
PROVIDERS: PCP Internal Medicine; Visit Provider Hospitalist
DX: J44.0 Chronic obstructive pulmonary disease with (acute) lower respiratory infection (principal); J15.1 Pneumonia due to Pseudomonas; R91.8 Other nonspecific abnormal finding of lung field; R06.02 Shortness of breath; J69.0 Pneumonitis due to inhalation of food and vomit
CPT/HCPCS: 99214

== ENCOUNTER → 2023-12-13 11:25 | Outpatient (BNVA) | payer OTHER, SELFPAY | PROVIDERS: PCP Internal Medicine; Visit Provider Hospitalist | DX: J44.0 Chronic obstructive pulmonary disease with (acute) lower respiratory infection (principal); J15.1 Pneumonia due to Pseudomonas; R91.8 Other nonspecific abnormal finding of lung field; R06.02 Shortness of breath; J69.0 Pneumonitis due to inhalation of food and vomit | CPT/HCPCS: 99212 ==

== ENCOUNTER 2024-01-24 09:33 | Outpatient (AMB) | payer OTHER, SELFPAY ==
[2024-01-24 09:35] VITALS: BP 120/58; PULSE 59; O2SAT 95
--- NOTE | 2024-01-24 09:35 | MHC.OFFVIS ---
Vital Signs 01/24/24 09:35 Height 4 ft 11 in BMI Reason not done Patient refused/unable BP 120/58 L Blood Pressure Location Lt brachial Position Sitting Pulse 59 Pulse Source Pulse Oximeter Pulse Oximetry (%) 95 Oxygen Delivery Method Room Air Intake Visit Reasons: congestion, cough Allergies carvedilol Allergy (Verified 01/24/24 09:39) Shortness of Breath sertraline [From Zoloft] Allergy (Verified 01/24/24 09:39) Shortness of Breath spironolactone Allergy (Verified 01/24/24 09:39) Shortness of Breath adhesive tape Adverse Reaction (Severe, Verified 01/24/24 09:39) skin tears mirtazapine Adverse Reaction (Severe, Verified 01/24/24 09:39) psychotic episode HPI HPI congestion, cough: Details: Jenifer is a pleasant 83 year old female, former smoker, with underlying COPD, bronchiectasis, h/o acute respiratory failure, CAD, pulmonary nodules and h/o aspiration pneumonia. At baseline she is moderately controlled on Anoro, xopenex, and ventolin. She is under the care of Dr. Aldana and presents for an acute visit, accompanied by daughter. She reports worsening respiratory symptoms over the last few weeks with persistent wheezing, crackles and now with productive cough with brown sputum. She denies any sick contacts, fevers or chills. She was prescribed prednisone when symptoms initially started as well as lasix however once completed symptoms worsened. [facility] Medical History (Updated 12/14/23 @ 23:11 by Carlin Aldana MD) Mild bibasilar atelectasis Aspiration pneumonia Clostridioides difficile infection Pneumonia Atrial flutter Pyuria Atelectasis of right lung Encephalopathy chronic History of infection with vancomycin resistant Enterococcus (VRE) Congestive heart failure Heart failure Dyspnea Paroxysmal A-fib COPD (chronic obstructive pulmonary disease) A-fib Acute encephalopathy Anemia Pseudomonas respiratory infection CAD (coronary artery disease) Acute respiratory failure with hypoxia Chronic dyspnea Acute hypokalemia Atrial fibrillation with RVR Anemia GI bleed Pulmonary nodules COPD (chronic obstructive pulmonary disease) Bronchiectasis Pseudomonal pneumonia Surgical History H/O umbilical hernia repair (09/18/22) History of quadruple bypass History of hip replacement History of knee replacement History of cholecystectomy Family History Other No family history of cancer Social History Household Members: Family Housing: House Are you a primary assistant child care teacher to a significant other at home: No Do you presently have visiting nurse or other home services: No Alcohol intake: never Patient Tobacco Use Status: Former Tobacco user Tobacco use type: Cigarette Advance Directives Date on File: 08/24/22 service: No Current occupational status: retired Review of Systems Const Denies chills, Denies excessive sweating, Denies fever(s), Denies headache(s) and Denies night sweats Eyes Denies dry eyes, Denies irritation and Denies itchy eyes ENT Reports Normal hearing present, Denies headache(s), Denies nasal congestion, Denies nasal discharge, Denies post nasal drip and Denies sore throat Card Denies chest pain, Denies chest pain at rest, Denies chest pain with activity, Denies claudication, Denies leg edema, Denies orthopnea and Denies paroxysmal nocturnal dyspnea Resp Denies pain on inspiration, Denies pain with cough and Denies stridor Musc Denies myalgias Neuro Reports Normal hearing present and Denies headache(s) Endo Denies excessive sweating Samir/Lymph Denies lymphadenopathy Aller/Immun Denies itchy eyes and Denies seasonal rhinorrhea Physical Exam Vital Signs: Last Vital Signs Pulse 59 01/24/24 09:35 BP 120/58 L 01/24/24 09:35 Pulse Ox 95 01/24/24 09:35 Oxygen Delivery Method Room Air 01/24/24 09:35 Const General: cooperative, no acute distress, well developed and alert Nutritional Appearance: obese Orientation/consciousness: patient oriented x3 Limitations: wheelchair HEENT Head: Yes normal to inspection, Yes normocephalic and Yes atraumatic Ears: hearing grossly normal bilaterally and external ears normal Eyes General: appearance normal, both eyes and all related structures Eyelids: Yes eyelids normal Sclerae: sclerae normal EOM: EOMs intact bilaterally Neck Neck: Yes normal visual inspection and Yes no lymphadenopathy Lymphatic: no lymphadenopathy noted Chest Chest palpation & inspection: normal inspection of the chest Resp Effort & Inspection: normal respiratory effort, able to speak in complete sentences, no audible wheezes, Actively coughing Quality: wet, no stridor, not tachypneic, no tripod positioning and no use of accessory muscles Auscultation: rhonchi and wheezes Cardio Jugular venous distension: no JVD Rate: regular rate Rhythm: regular rhythm Skin Other: warm, dry General skin exam: no rashes or lesions noted Neuro General: patient oriented x3 Cranial nerves: Yes Normal hearing present Cognition (Neuro): normal cognition Extrem Other: trace BLE edema General: Yes normal to inspection Psych Appearance: grossly normal and well kempt Speech and movement: Normal speech and movement present and Clear speech present Affect: normal affect Attitude: cooperative Thought process: Normal thought process present Thought content: Normal thought content present Insight: Good insight present (Psych) Judgement: Good judgement present (Psych) Assessment & Plan Assessment & Plan (1) COPD (chronic obstructive pulmonary disease): Code(s): J44.9 - Chronic obstructive pulmonary disease, unspecified Category: Medical Qualifiers: COPD type: COPD with acute lower respiratory infection Qualified Code(s): J44.0 - Chronic obstructive pulmonary disease with (acute) lower respiratory infection (2) Pulmonary nodules: Code(s): R91.8 - Other nonspecific abnormal finding of lung field Category: Medical (3) Dyspnea: Code(s): R06.00 - Dyspnea, unspecified Category: Medical Qualifiers: Dyspnea type: shortness of breath Qualified Code(s): R06.02 - Shortness of breath Plan Will treat bronchitic symptoms with doxycycline and prednisone. Patient aware if symptoms worsen, to seek emergent care. If symptoms do not improve will obtain CXR. All questions were answered and patient is in agreement of plan. Will follow up for regularly scheduled appointment with Dr. Aldana or sooner if needed. Medications: New doxycycline hyclate 100 mg PO BID 14 caps 0RF Refilled prednisone PO daily; Take 2 tabs daily x 5 days, then 1 tablet daily x 5 days 15 tabs 0RF 10 days umeclidinium-vilanterol 62.5-25 mcg/actuation (Anoro Ellipta) do not interchange, daughter will bring in 1 ea inhalation DAILY 60 ea 11RF 30 days Coding Level of Care Code Est Pt Level 4 (48999) Diagnoses Chronic obstructive pulmonary disease with acute lower respiratory infection J44.0 COPD type: COPD with acute lower respiratory infection Pulmonary nodules R91.8 Shortness of breath R06.02 Dyspnea type: shortness of breath
== END 2024-01-24 10:38 | disposition home or self-care (01) ==
PROVIDERS: PCP Internal Medicine; Visit Provider Nurse Practitioner Family
DX: J44.0 Chronic obstructive pulmonary disease with (acute) lower respiratory infection (principal); R91.8 Other nonspecific abnormal finding of lung field; R06.02 Shortness of breath
CPT/HCPCS: 99214

== ENCOUNTER → 2024-01-24 09:33 | Outpatient (BNVA) | payer OTHER, SELFPAY | PROVIDERS: PCP Internal Medicine; Visit Provider Nurse Practitioner Family | DX: J44.0 Chronic obstructive pulmonary disease with (acute) lower respiratory infection (principal); R91.8 Other nonspecific abnormal finding of lung field; R06.02 Shortness of breath; Z87.891 Personal history of nicotine dependence | CPT/HCPCS: 99212 ==

== ENCOUNTER 2024-02-06 11:09 | Outpatient (REF) | payer OTHER, SELFPAY | END 2024-02-06 11:10 | disposition home or self-care (01) | LOC: HO.LNP 11:09 | PROVIDERS: PCP Internal Medicine; Visit Provider Hospitalist | DX: J47.9 Bronchiectasis, uncomplicated (principal); J44.0 Chronic obstructive pulmonary disease with (acute) lower respiratory infection; R91.8 Other nonspecific abnormal finding of lung field; R06.02 Shortness of breath; J47.0 Bronchiectasis with acute lower respiratory infection; J15.1 Pneumonia due to Pseudomonas | CPT/HCPCS: 87070; 87077; 87186; 87205; 99212 ==

== ENCOUNTER 2024-02-06 11:09 | Outpatient (AMB) | payer OTHER, SELFPAY ==
[2024-02-06 11:15] VITALS: PULSE 77; O2SAT 96; BMI 28.1
--- NOTE | 2024-02-06 11:15 | A.OFFVIS_ITS ---
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 Required: No Allergies carvedilol Allergy (Verified 02/06/24 11:16) Shortness of Breath sertraline [From Zoloft] Allergy (Verified 02/06/24 11:16) Shortness of Breath spironolactone Allergy (Verified 02/06/24 11:16) Shortness of Breath adhesive tape Adverse Reaction (Severe, Verified 02/06/24 11:16) skin tears mirtazapine Adverse Reaction (Severe, Verified 02/06/24 11:16) psychotic episode HPI Comments Details: The patient is an 83 year-old woman with known history of COPD along with chronic bronchitis due apparently has been in usual state health until for the last several months where her respiratory status has dramatically worsen. The patient has had numerous admissions in a short period of time. The patient states that she started developing worsening cough usually congested in nature. She has a hard time expectorating. Suddenly she developed significant respiratory distress with the family notices that she is decompensated very quickly. At that point EMS was called the. Usually the patient is found to be hypoxic and she is brought to the hospital. She has been admitted to normal now about 4 times in a [facility] about 2 times. Her sputum was positive for Pseudomonas aeruginosa and she was treated with ceftazidime. Ultimately she is treated and then subsequently is able to recover partially in that she is sent home. Usually the cycle restarts again. She has been having hard time since she does the hospital recently. They try sending another sputum culture but it was contaminated. In the office she was very congested. We were able to get a sputum sample and also very tenacious greenish in color and also smelling of Pseudomonas consistent with likely pseudomonal lower respiratory infections and pneumonia. The patient did received Xopenex with hypertonic saline with good response. She had been on DuoNeb but I am concerned that is drying up the mucus even more. Therefore will switch over to the Xopenex instead. I did review her CT scan of the chest done at [facility]. She has numerous pulmonary nodules in addition to thickened airways and some bronchiectatic looking airways. Therefore, the patient does have chronic airway disease now worsened by the fact that she is colonized with Pseudomonas. She has had multiple admissions to the hospital and therefore failing IV and oral antibiotics. The only option right now will be to start her inhaled tobramycin. she is already performing chest physical therapy with a flutter valve. 04/27/2023 the patient is here for a pulmonary follow-up visit. Since we last spoke she went back to the hospital. She was diagnosed with pneumonia was again placed on antibiotics. Again a course complicated with C diff colitis. 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 She was treated with p.o. vancomycin again. I explained to the patient and to the daughter that she needs to minimize antibiotic use because it will reasonable result in a very complicated abdominal process. The patient likely has a component of microaspiration likely aspiration pneumonias specially since pneumonias or mainly on the right side. She does have an increased amount of dementia and she is requiring additional care from the family. She is also falling asleep more regularly during the daytime. She is going to start her day program to see if this allows her to be more stimulated and more weight. In the meantime she is off the inhaled tobramycin. In view of her all her complications will go ahead and hold off the tobramycin for 4-6 weeks to see if there is improvement in her GI issues. She will continue with the current respiratory therapy With the Xopenex therapy. And will follow-up in 6 months. If the patient has any worsening symptoms she is to call the office for an earlier assessment. we also spoke briefly about goals of care. Talked about her code status. The patient currently is a full code we did talk about the concerns about her significant comorbidities and being too aggressive with her care. Therefore, I did recommend the patient talk to her daughter further about code status. 09/14/2023 the patient has a telehealth visit today. Overall she has been doing well. The weather spot so therefore she stayed home. She has not required any prednisone or antibiotics since we last spoke which is very reassuring. This is the longest stent of good health she has had. She is also participating in the day program where she is exposed to a lot of people and she has actually been doing very well with that as well. She continues her respiratory therapy with Xopenex. The patient has not required any other respiratory therapy. She continues use oxygen with good effect. She does complaint of some chest congestion and mucus. Explained to her that she does have chronic bronchitis and she will always make mucus. Although she needs to be monitoring closely the collar the consistency in the frequency of the mucus. If those were to worsen she will call nor for us to treat her for potential infection. 12/13/2023 the patient is here for a pulmonary follow-up visit. She was in her usual state health until the last week when she started developing worsening cough chest congestion. For another breath. Hard time expectorating. Moderate severity. Denied any fevers or chills. The mucus was colored. She does have history of Pseudomonas. At this start her on levofloxacin and also prednisone. Today she has already feeling a little better. Although the family is concerned that she has coming to the end of the treatment still congested and coughing although not as bad. The patient still has some rhonchi and wheezing on examination. I am concerned about the use of quinolones because of the possibility of tendonitis and also the risk of C diff colitis. At the same time the patient does have chronic airway disease with significant bronchiectasis. Therefore, I will give another 10 days but a low dose levofloxacin and a lower dose prednisone. He should continue with her CPT therapy. Continue with the nebulized therapy. She has been using the oxygen with good effect. Otherwise the patient is feeling a little bit better. Her last chest x-ray personally by me from 10/30/2023 with some chronic changes decreased lung volumes and some atelectasis at the bases. Further recommendation based on forthcoming data. The patient will follow-up in 3-4 months. 02/06/2024 the patient is here for sick visit. She has had worsening cough chest congestion. Moderate severity. The mucus is very tenacious. Sometimes she has a hard time clearing her secretions. She did respond well to the levofloxacin. The patient has had history of Pseudomonas in the sputum. Likely this is related to Pseudomonas at this time. Although, she does also have a history of C diff colitis. Therefore, the patient understands that using quinolones to treat her underlying respiratory infection can lead to C diff colitis. Will go ahead and pretreat her with Flagyl to minimize risk. The patient ultimately has significant bronchiectasis. She will benefit from inhaled tobramycin to be provided in order to treat the Pseudomonas infection. Therefore, will go ahead and send a sputum culture at this time. she will start the antibiotics continue with her chest physical therapy. She should be using her Acapella valve and also her nebulized therapy. Right now she does not having significant wheezing therefore will hold off on any prednisone. The patient has any worsening symptoms she will call for further evaluation. [facility] Medical History (Updated 02/06/24 @ 22:13 by Carlin Aldana MD) Mild bibasilar atelectasis Aspiration pneumonia Clostridioides difficile infection Pneumonia Atrial flutter Pyuria Atelectasis of right lung Encephalopathy chronic History of infection with vancomycin resistant Enterococcus (VRE) Congestive heart failure Heart failure Dyspnea Paroxysmal A-fib COPD (chronic obstructive pulmonary disease) A-fib Acute encephalopathy Anemia Pseudomonas respiratory infection CAD (coronary artery disease) Acute respiratory failure with hypoxia Chronic dyspnea Acute hypokalemia Atrial fibrillation with RVR Anemia GI bleed Pulmonary nodules COPD (chronic obstructive pulmonary disease) Bronchiectasis Pseudomonal pneumonia Surgical History H/O umbilical hernia repair (09/18/22) History of quadruple bypass History of hip replacement History of knee replacement History of cholecystectomy Family History Other No family history of cancer Social History Household Members: Family Housing: House Are you a primary district manager primary care sales to a significant other at home: No Do you presently have visiting nurse or other home services: No Alcohol intake: never Patient Tobacco Use Status: Former Tobacco user Tobacco use type: Cigarette Advance Directives Date on File: 08/24/22 service: No Current occupational status: retired Review of Systems Const Denies fever(s) Eyes Reports change in vision ENT Reports nasal congestion and Reports nasal discharge Card Denies chest pain and Reports dyspnea on exertion Resp Reports change in phlegm color, Reports chest congestion, Reports cough, Denies hemoptysis, Reports excessive phlegm production, Reports dyspnea on exertion and Reports wheezing GI Reports no additional complaints Musc Reports abnormal gait, Reports back pain, Reports arthralgias, Reports joint swelling and Reports muscle weakness Skin/Breast Reports rash and Reports unusual bruising Neuro Reports abnormal gait Psych Reports panic attacks Samir/Lymph Reports easy bruising and Denies lymphadenopathy Aller/Immun Reports wheezing Physical Exam Vital Signs: Last Vital Signs Pulse 77 02/06/24 11:15 Pulse Ox 96 02/06/24 11:15 Oxygen Delivery Method Room Air 02/06/24 11:15 BMI result Body Mass Index 28.1 Const General: comfortable and alert HEENT Head: Yes normal to inspection Neck Neck: Yes supple Chest Chest palpation & inspection: normal inspection of the chest Resp Effort & Inspection: no cough Auscultation: no crackles, rhonchi, no wheezes, breath sounds present and diminished lung sounds Cardio Rate: regular rate Rhythm: regular rhythm Heart sounds: S1 normal heart sound present, S2 normal heart sound present and Murmur heart sound present GI Palpation (GI): Soft to palpation Auscultation: normal bowel sounds Skin General skin exam: ecchymosis Extrem General: No clubbing and No cyanosis Assessment & Plan Assessment & Plan (1) COPD (chronic obstructive pulmonary disease): Code(s): J44.9 - Chronic obstructive pulmonary disease, unspecified Category: Medical Qualifiers: COPD type: COPD with acute lower respiratory infection Qualified Code(s): J44.0 - Chronic obstructive pulmonary disease with (acute) lower respiratory infection (2) Pseudomonal pneumonia: Code(s): J15.1 - Pneumonia due to Pseudomonas Category: Medical Qualifiers: Laterality: unspecified laterality Lung location: unspecified part of lung Qualified Code(s): J15.1 - Pneumonia due to Pseudomonas (3) Pulmonary nodules: Code(s): R91.8 - Other nonspecific abnormal finding of lung field Category: Medical (4) Dyspnea: Code(s): R06.00 - Dyspnea, unspecified Category: Medical Qualifiers: Dyspnea type: shortness of breath Qualified Code(s): R06.02 - Shortness of breath (5) Bronchiectasis: Code(s): J47.9 - Bronchiectasis, uncomplicated Category: Medical Qualifiers: Bronchiectasis type: with acute lower respiratory infection Qualified Code(s): J47.0 - Bronchiectasis with acute lower respiratory infection Plan Levaquin 250 Flagyl sputum culture if +culture for pseudomonas we will rx inhaled John continue Anoro Xopenex BID hypertonic saline 3% for CPT Continue acapella valve Oxygen 2L with activity and with sleep F/U 1-2 months Orders: Orders Sputum Cult + Gram stain Today J47.9 - Bronchiectasis, uncomplicated Medications: New metronidazole (Flagyl) 375 mg PO Q12H 42 caps 0RF 21 days levofloxacin 250 mg PO DAILY 21 tabs 0RF 21 days Coding Level of Care Code Est Pt Level 4 (00439) Complex EM visit Add On [id number] Diagnoses Chronic obstructive pulmonary disease with acute lower respiratory infection J44.0 COPD type: COPD with acute lower respiratory infection Pneumonia due to Pseudomonas species, unspecified laterality, unspecified part of lung J15.1 Laterality: unspecified laterality Lung location: unspecified part of lung Pulmonary nodules R91.8 Shortness of breath R06.02 Dyspnea type: shortness of breath Bronchiectasis with acute lower respiratory infection J47.0 Bronchiectasis type: with acute lower respiratory infection Time Spent (min) 17
== END 2024-02-06 11:39 | disposition home or self-care (01) ==
PROVIDERS: PCP Internal Medicine; Visit Provider Hospitalist
DX: J44.0 Chronic obstructive pulmonary disease with (acute) lower respiratory infection (principal); J15.1 Pneumonia due to Pseudomonas; R91.8 Other nonspecific abnormal finding of lung field; R06.02 Shortness of breath; J47.0 Bronchiectasis with acute lower respiratory infection
CPT/HCPCS: 99214; G2211

== ENCOUNTER 2024-03-18 14:36 | Outpatient (AMB) | payer OTHER, SELFPAY ==
--- NOTE | 2024-03-18 14:51 | MHC.OFFVIS ---
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 Required: No Allergies carvedilol Allergy (Verified 03/18/24 14:55) Shortness of Breath sertraline [From Zoloft] Allergy (Verified 03/18/24 14:55) Shortness of Breath spironolactone Allergy (Verified 03/18/24 14:55) Shortness of Breath adhesive tape Adverse Reaction (Severe, Verified 03/18/24 14:55) skin tears mirtazapine Adverse Reaction (Severe, Verified 03/18/24 14:55) psychotic episode HPI Comments Details: The patient is an 83 year-old woman with known history of COPD along with chronic bronchitis due apparently has been in usual state health until for the last several months where her respiratory status has dramatically worsen. The patient has had numerous admissions in a short period of time. The patient states that she started developing worsening cough usually congested in nature. She has a hard time expectorating. Suddenly she developed significant respiratory distress with the family notices that she is decompensated very quickly. At that point EMS was called the. Usually the patient is found to be hypoxic and she is brought to the hospital. She has been admitted to normal now about 4 times in a [facility] about 2 times. Her sputum was positive for Pseudomonas aeruginosa and she was treated with ceftazidime. Ultimately she is treated and then subsequently is able to recover partially in that she is sent home. Usually the cycle restarts again. She has been having hard time since she does the hospital recently. They try sending another sputum culture but it was contaminated. In the office she was very congested. We were able to get a sputum sample and also very tenacious greenish in color and also smelling of Pseudomonas consistent with likely pseudomonal lower respiratory infections and pneumonia. The patient did received Xopenex with hypertonic saline with good response. She had been on DuoNeb but I am concerned that is drying up the mucus even more. Therefore will switch over to the Xopenex instead. I did review her CT scan of the chest done at [facility]. She has numerous pulmonary nodules in addition to thickened airways and some bronchiectatic looking airways. Therefore, the patient does have chronic airway disease now worsened by the fact that she is colonized with Pseudomonas. She has had multiple admissions to the hospital and therefore failing IV and oral antibiotics. The only option right now will be to start her inhaled tobramycin. she is already performing chest physical therapy with a flutter valve. 04/27/2023 the patient is here for a pulmonary follow-up visit. Since we last spoke she went back to the hospital. She was diagnosed with pneumonia was again placed on antibiotics. Again a course complicated with C diff colitis. 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 She was treated with p.o. vancomycin again. I explained to the patient and to the daughter that she needs to minimize antibiotic use because it will reasonable result in a very complicated abdominal process. The patient likely has a component of microaspiration likely aspiration pneumonias specially since pneumonias or mainly on the right side. She does have an increased amount of dementia and she is requiring additional care from the family. She is also falling asleep more regularly during the daytime. She is going to start her day program to see if this allows her to be more stimulated and more weight. In the meantime she is off the inhaled tobramycin. In view of her all her complications will go ahead and hold off the tobramycin for 4-6 weeks to see if there is improvement in her GI issues. She will continue with the current respiratory therapy With the Xopenex therapy. And will follow-up in 6 months. If the patient has any worsening symptoms she is to call the office for an earlier assessment. we also spoke briefly about goals of care. Talked about her code status. The patient currently is a full code we did talk about the concerns about her significant comorbidities and being too aggressive with her care. Therefore, I did recommend the patient talk to her daughter further about code status. 09/14/2023 the patient has a telehealth visit today. Overall she has been doing well. The weather spot so therefore she stayed home. She has not required any prednisone or antibiotics since we last spoke which is very reassuring. This is the longest stent of good health she has had. She is also participating in the day program where she is exposed to a lot of people and she has actually been doing very well with that as well. She continues her respiratory therapy with Xopenex. The patient has not required any other respiratory therapy. She continues use oxygen with good effect. She does complaint of some chest congestion and mucus. Explained to her that she does have chronic bronchitis and she will always make mucus. Although she needs to be monitoring closely the collar the consistency in the frequency of the mucus. If those were to worsen she will call nor for us to treat her for potential infection. 12/13/2023 the patient is here for a pulmonary follow-up visit. She was in her usual state health until the last week when she started developing worsening cough chest congestion. For another breath. Hard time expectorating. Moderate severity. Denied any fevers or chills. The mucus was colored. She does have history of Pseudomonas. At this start her on levofloxacin and also prednisone. Today she has already feeling a little better. Although the family is concerned that she has coming to the end of the treatment still congested and coughing although not as bad. The patient still has some rhonchi and wheezing on examination. I am concerned about the use of quinolones because of the possibility of tendonitis and also the risk of C diff colitis. At the same time the patient does have chronic airway disease with significant bronchiectasis. Therefore, I will give another 10 days but a low dose levofloxacin and a lower dose prednisone. He should continue with her CPT therapy. Continue with the nebulized therapy. She has been using the oxygen with good effect. Otherwise the patient is feeling a little bit better. Her last chest x-ray personally by me from 10/30/2023 with some chronic changes decreased lung volumes and some atelectasis at the bases. Further recommendation based on forthcoming data. The patient will follow-up in 3-4 months. 02/06/2024 the patient is here for sick visit. She has had worsening cough chest congestion. Moderate severity. The mucus is very tenacious. Sometimes she has a hard time clearing her secretions. She did respond well to the levofloxacin. The patient has had history of Pseudomonas in the sputum. Likely this is related to Pseudomonas at this time. Although, she does also have a history of C diff colitis. Therefore, the patient understands that using quinolones to treat her underlying respiratory infection can lead to C diff colitis. Will go ahead and pretreat her with Flagyl to minimize risk. The patient ultimately has significant bronchiectasis. She will benefit from inhaled tobramycin to be provided in order to treat the Pseudomonas infection. Therefore, will go ahead and send a sputum culture at this time. she will start the antibiotics continue with her chest physical therapy. She should be using her Acapella valve and also her nebulized therapy. Right now she does not having significant wheezing therefore will hold off on any prednisone. The patient has any worsening symptoms she will call for further evaluation. 03/18/2024 the patient is here for a pulmonary follow-up visit. Overall she is doing better since we last saw her. She did complete the 28 days of the inhaled tobramycin. She does have a hard time with it. Gives her bad taste and she does not like to take it. She is considering not continuing the therapy. She is going to have now 20 days off the medicine which I find helpful for her to take a break. But I explained to the patient did Pseudomonas will return in her respiratory symptoms will return subsequently after that and it will continue to worsen. Therefore, we do not have a lot of alternative options in the inhaled SHY although does have some adverse symptoms it is effective treating the Pseudomonas. In the meantime she is going to continue using respiratory therapy and chest PT to clear mucus. On exam she does have some wheezing. Hold off on any prednisone at this time. If her symptoms worsen she will call. She is also monitoring closely her weight. She has gained weight but although she is eating more. Does not appear to be volume overloaded at this time. She will continue with current dose of diuretics. Will follow-up in 3-4 months. The patient has any worsening symptoms prior to that she will call for an earlier assessment. [facility] Medical History (Updated 02/06/24 @ 22:13 by Carlin Aldana MD) Mild bibasilar atelectasis Aspiration pneumonia Clostridioides difficile infection Pneumonia Atrial flutter Pyuria Atelectasis of right lung Encephalopathy chronic History of infection with vancomycin resistant Enterococcus (VRE) Congestive heart failure Heart failure Dyspnea Paroxysmal A-fib COPD (chronic obstructive pulmonary disease) A-fib Acute encephalopathy Anemia Pseudomonas respiratory infection CAD (coronary artery disease) Acute respiratory failure with hypoxia Chronic dyspnea Acute hypokalemia Atrial fibrillation with RVR Anemia GI bleed Pulmonary nodules COPD (chronic obstructive pulmonary disease) Bronchiectasis Pseudomonal pneumonia Surgical History H/O umbilical hernia repair (09/18/22) History of quadruple bypass History of hip replacement History of knee replacement History of cholecystectomy Family History Other No family history of cancer Social History Household Members: Family Housing: House Are you a primary home health care worker to a significant other at home: No Do you presently have visiting nurse or other home services: No Alcohol intake: never Patient Tobacco Use Status: Former Tobacco user Tobacco use type: Cigarette Advance Directives Date on File: 08/24/22 service: No Current occupational status: retired Review of Systems Const Denies fever(s) Eyes Reports change in vision ENT Reports nasal congestion and Reports nasal discharge Card Denies chest pain and Reports dyspnea on exertion Resp Denies change in phlegm color, Reports chest congestion, Reports cough, Denies hemoptysis, Denies excessive phlegm production, Reports dyspnea on exertion and Reports wheezing GI Reports no additional complaints Musc Reports abnormal gait, Reports back pain, Reports arthralgias, Reports joint swelling and Reports muscle weakness Skin/Breast Reports rash and Reports unusual bruising Neuro Reports abnormal gait Psych Reports panic attacks Samir/Lymph Reports easy bruising and Denies lymphadenopathy Aller/Immun Reports wheezing Physical Exam Vital Signs: Last Vital Signs Pulse 84 03/18/24 14:52 BP 120/60 03/18/24 14:52 Pulse Ox 93 03/18/24 14:52 Oxygen Delivery Method Room Air 03/18/24 14:52 BMI result Body Mass Index 30.3 Const General: comfortable and alert HEENT Head: Yes normal to inspection Neck Neck: Yes supple Chest Chest palpation & inspection: normal inspection of the chest Resp Effort & Inspection: no cough Auscultation: no crackles, no rhonchi, no wheezes, breath sounds present and diminished lung sounds Cardio Rate: regular rate Rhythm: regular rhythm Heart sounds: S1 normal heart sound present, S2 normal heart sound present and Murmur heart sound present GI Palpation (GI): Soft to palpation Auscultation: normal bowel sounds Skin General skin exam: ecchymosis Extrem General: No clubbing and No cyanosis Assessment & Plan Assessment & Plan (1) COPD (chronic obstructive pulmonary disease): Code(s): J44.9 - Chronic obstructive pulmonary disease, unspecified Category: Medical Qualifiers: COPD type: COPD with acute lower respiratory infection Qualified Code(s): J44.0 - Chronic obstructive pulmonary disease with (acute) lower respiratory infection (2) Pseudomonal pneumonia: Code(s): J15.1 - Pneumonia due to Pseudomonas Category: Medical Qualifiers: Laterality: unspecified laterality Lung location: unspecified part of lung Qualified Code(s): J15.1 - Pneumonia due to Pseudomonas (3) Pulmonary nodules: Code(s): R91.8 - Other nonspecific abnormal finding of lung field Category: Medical (4) Dyspnea: Code(s): R06.00 - Dyspnea, unspecified Category: Medical Qualifiers: Dyspnea type: shortness of breath Qualified Code(s): R06.02 - Shortness of breath (5) Bronchiectasis: Code(s): J47.9 - Bronchiectasis, uncomplicated Category: Medical Qualifiers: Bronchiectasis type: with acute lower respiratory infection Qualified Code(s): J47.0 - Bronchiectasis with acute lower respiratory infection Plan continue inhaled Shy 28 days on, 28 days off continue Anoro Xopenex BID hypertonic saline 3% for CPT Continue acapella valve Oxygen 2L with activity and with sleep F/U 3-4 months Coding Level of Care Code Est Pt Level 4 (24958) Complex EM visit Add On G2211 Diagnoses Chronic obstructive pulmonary disease with acute lower respiratory infection J44.0 COPD type: COPD with acute lower respiratory infection Pneumonia due to Pseudomonas species, unspecified laterality, unspecified part of lung J15.1 Laterality: unspecified laterality Lung location: unspecified part of lung Pulmonary nodules R91.8 Shortness of breath R06.02 Dyspnea type: shortness of breath Bronchiectasis with acute lower respiratory infection J47.0 Bronchiectasis type: with acute lower respiratory infection Time Spent (min) 18
[2024-03-18 14:52] VITALS: BP 120/60; PULSE 84; O2SAT 93; BMI 30.3
== END 2024-03-18 15:13 | disposition home or self-care (01) ==
PROVIDERS: PCP Internal Medicine; Visit Provider Hospitalist
DX: J44.0 Chronic obstructive pulmonary disease with (acute) lower respiratory infection (principal); J15.1 Pneumonia due to Pseudomonas; R91.8 Other nonspecific abnormal finding of lung field; R06.02 Shortness of breath; J47.0 Bronchiectasis with acute lower respiratory infection
CPT/HCPCS: 99214; G2211

== ENCOUNTER → 2024-03-18 14:36 | Outpatient (BNVA) | payer OTHER, SELFPAY | PROVIDERS: PCP Internal Medicine; Visit Provider Hospitalist | DX: J44.0 Chronic obstructive pulmonary disease with (acute) lower respiratory infection (principal); J15.1 Pneumonia due to Pseudomonas; J47.0 Bronchiectasis with acute lower respiratory infection; R06.02 Shortness of breath; R91.8 Other nonspecific abnormal finding of lung field | CPT/HCPCS: 99212 ==

== ENCOUNTER 2024-05-30 14:19 | Outpatient (AMB) | payer OTHER, SELFPAY ==
--- OUTSIDE RECORDS SUMMARY | 2024-05-30 14:21 | XMS_ITS | Data Portability ---
Author Organization [facility], Pr in - [facility] Address [address] [place] [phone] Care Team Providers Care Sample Worker Name Role Phone [facility] Referring Provider [phone] Assessment Encounter Date Assessment Date Assessment LastModified by Organization Details LastModified Time 03/08/2022 03/08/2022 81 YOF being seen for wound over left ankle consistent with skin tear. Pt has continued oozing but not active bleeding, likely due to anticoagulation. PT had wound dressed with antibiotic ointment and wrap, encouraged to leave in place for 24-48 hours to allow to heal. Pt and daughter given red flag symptoms to watch for and expressed understanding. [email or web address] Not available 03/08/2022 13:58:45 12/12/2022 12/12/2022 I provided real -time medical direction via phone for this encounter, and was available for additional phone based assistance as needed. I have reviewed and agree with the Assessment and Plan as documented by the Studio Operator. Patient /daughter given the opportunity to ask questions. Advised if develops CP/severe SOB/turning blue/uncontrolle d n/v/d or black/bloody emesis or stool/ AMS/ syncope/ hi fever to call 911- daughter verbalized understanding of instructions to the medic [email or web address] Not available 12/12/2022 13:03:17 Plan of Treatment Reminders Order Date Submit Date Provider Last Modified By Organization Details Last Modified Time Details Appointments None recorded. Lab culture, urine 2022 023 [email or web address] [facility], [address], [place], [address], 07:20:43 urinalysis, dipstick 2022 023 [email or web address] 0 [facility], [address] [place] [address], [phone], 13:03:23 glucose, fingerstick , blood 2022 023 [email or web address] 0 [facility], [address] [place] [address], [place], [phone], 13:03:23 Referral None recorded. Procedures None recorded. Surgeries None recorded. Imaging None recorded. Medication Orders cefpodoxime 200 mg tablet 2022 023 [id number], [address], [place], [phone], 12:57:14 cefpodoxime 200 mg tablet 2022 023 [email or web address] Not available 12:57:07 Patient TargetsNo targets recorded. Patient InstructionsNo instructions recorded. Reason for Referral None Reported. Results Created Date Observation Date Name Description Value Unit Range Abnormal Flag Note LastModifiedBy Organization Detail LastModifiedTime 12/13/1912/12/2022 URINE CULTU RE specimen description URINE Not Available [facility] [address] [place], [id number], 12/14/2022 07:20:43 12/13/19 23 12/12/2022 URINE CULTU RE special requests NONE Not Available [facility] [address] [place], [id number], 12/14/2022 07:20:43 12/13/19 23 12/14/2022 URINE CULTU RE culture Mixed bacter ial rowdy, indica tive of urogen ital contam inatio n. Not Available [facility] [address] [place], [address], 12/14/2022 07:20:43 12/13/19 23 12/14/2022 URINE CULTU RE report status FINAL 2022 Not Available [facility] [address] [place], [address], 12/14/2022 07:20:43 12/13/19 23 12/12/2022 urina lysis , dipst ick Leukocytes 500 Not Available [facility] [address] [place] [address], [phone], 12/12/2022 12:57:33 12/13/19 23 12/12/2022 urina lysis , dipst ick Nitrite positi ve Not Available [facility] [address] [place] [address], [phone], 12/12/2022 12:57:33 12/13/19 23 12/12/2022 urina lysis , dipst ick Urobilinogen 0.2 Not Available [facility] [address] [place] [address], [address], 12/12/2022 12:57:33 12/13/19 23 12/12/2022 urina lysis , dipst ick Protein 30 Not Available [facility] - [facility] [address], [address], 12/12/2022 12:57:33 12/13/19 23 12/12/2022 urina lysis , dipst ick pH 7.5 Not Available [facility] - [facility] [address], [address], 12/12/2022 12:57:33 12/13/19 23 12/12/2022 urina lysis , dipst ick Blood + Not Available [facility] - [facility] [address], [address], 12/12/2022 12:57:33 12/13/19 23 12/12/2022 urina lysis , dipst ick Specific Kayenta 1.005 Not Available [facility] [address] [place] [address], [phone], 12/12/2022 12:57:33 12/13/19 23 12/12/2022 urina lysis , dipst ick Ketone neg Not Available [facility] - [facility] [address], [address], 12/12/2022 12:57:33 12/13/19 23 12/12/2022 urina lysis , dipst ick Bilirubin neg Not Available [facility] - [facility] n[facility] [address] [place] [address], [address], 12/12/2022 12:57:33 12/13/19 23 12/12/2022 urina lysis , dipst ick Glucose neg Not Available [facility] - [facility] sandra [address] [place] [address], [address], 12/12/2022 12:57:33 12/13/19 23 12/12/2022 urina lysis , dipst ick Appearance cloudy Not Available [facility] [address] [place] [address], [address], 12/12/2022 12:57:33 12/13/19 23 12/12/2022 urina lysis , dipst ick Color yellow Not Available Main - [facility] [address], [address], 12/12/2022 12:57:33 12/13/19 23 12/12/2022 gluco se, finge rstic k, blood Blood Glucose: mg/dl 190 Not Available [facility] [address] [place] [address], [phone], 12/12/2022 12:57:38 Result Notes None recorded. Medical Equipment None Reported. Allergies Allergen ID Allergen Name Allergen Category Reaction Reaction Severity Criticality Documentation Date Start Date Code Code System Note Provider Name and Address Organization Details Recorded Time 2694 cetirizin e medicatio n Not available Not available Not available 12/12/2022 24706 RxNorm Alexandria Shea MD [address] [place] [address],[address], [place], [phone], [email or web address], [facility] 12:51:29 2696 spironola ctone medicatio n Not available Not available Not available 12/12/2022 9997 RxNorm Alexandria Shea MD [address] [place] [address],[address], [place], [address], [employer] 12:51:49 2697 carvedilo l medicatio n Not available Not available Not available 12/12/2022 80303 RxNorm Alexandria Shea MD [address] [facility],[address], [place], [address], [employer] 12:51:56 Medications Name Sig Start Date Stop Date Status Note LastModified by Organization Details LastModified Time furosemide 40 mg tablet TAKE 1 TABLET BY MOUTH TWICE DAILY REPLACES FUROSEMIDE 20 MG active Not Available Not Available No t Available atorvastatin 40 mg tablet TAKE 1 TABLET BY MOUTH AT BEDTIME active Not Available Not Available No t Available metformin 500 mg tablet TAKE 1 TABLET BY MOUTH TWICE DAILY active Not Available Not Available No t Available nystatin 100,000 unit/mL oral suspension SWISH AND SWALLOW 5 ML BY MOUTH FOUR TIMES DAILY active Not Available Not Available No t Available carvedilol 6.25 mg tablet TAKE 1 TABLET BY MOUTH TWICE DAILY active Not Available Not Available No t Available prednisone 10 mg tablet TAKE 1 TABLET BY MOUTH DAILY active Not Available Not Available Not Available ipratropium 0.5 mg-albuterol 3 mg (2.5 mg base)/3 mL nebulization soln USE 1 VAIL VIA NEBULIZER THREE TIMES DAILY active Not Available Not Available No t Available torsemide 20 mg tablet TAKE 2 TABLETS BY MOUTH DAILY active Not Available Not Available Not Available tobramycin 300 mg/5 mL in 0.225 % sodium chloride for nebulization active Not Available Not Available Not Available loperamide 2 mg capsule TAKE 1 CAPSULE BY MOUTH EVERY 4 HOURS NEEDED FOR DIARRHEA active Not Available Not Available No t Available atorvastatin 10 mg tablet TAKE 1 TABLET BY MOUTH DAILY. REPLACES SIMVASTATIN active Not Available Not Available Not Available cefpodoxime 200 mg tablet TAKE 1 TABLET BY MOUTH EVERY 12 HOURS FOR 7 DAYS active Not Available Not Available N ot Available azithromycin 250 mg tablet TAKE 2 TABLETS ON FIRST DAY , THEN 1 TABLET DAILY FOR 4 DAYS active Not Available Not Available No t Available nitroglyceri n 0.[address] 1 TABLET UNDER TONGUE EVERY 5 MIN NEEDED FOR CHEST PAIN, MAX OF 3 DOSES/15 MIN CALL 911/SEEK MEDICAL ATTENTION IF PAIN PERSISTS active Not Available Not Available N ot Available benzonatate 200 mg capsule TAKE ONE CAPSULE BY MOUTH THREE TIMES A DAY NEEDED FOR COUGH active Not Available Not Available No t Available Nystop 100,000 unit/gram topical powder APPLY TOPICALLY TWICE DAILY active Not Available Not Available Not Available senna 8.6 mg tablet TAKE 2 TABLETS BY MOUTH EVERY EVENING AT BEDTIME NEEDED FOR CONSTIPATIO N active Not Available Not Available No t Available diltiazem CD 240 mg capsule,exte nded release 24 hr TAKE 1 CAPSULE BY MOUTH DAILY. REPLACES 120 MG DAILY active Not Available Not Available No t Available lisinopril 20 mg tablet TAKE 1 TABLET BY MOUTH EVERY DAY active Not Available Not Available No t Available prednisone 20 mg tablet TAKE 2 TABLET BY MOUTH EVERY DAY FOR 5 DAYS THEN 1 TABLET BY MOUTH EVERY DAY FOR 5 DAYS active Not Available Not Available No t Available isosorbide mononitrate ER 30 mg tablet,exten ded release 24 hr TAKE 1 TABLET BY MOUTH DAILY active Not Available Not Available Not Available prednisone 5 mg tablet TAKE 1 TABLET BY MOUTH EVERY DAY active Not Available Not Available No t Available thiamine HCl (vitamin B1) 100 mg tablet TAKE 1 TABLET BY MOUTH TWICE DAILY active Not Available Not Available No t Available risperidone 0.25 mg tablet TAKE 1 TABLET BY MOUTH DAILY active Not Available Not Available Not Available sulfamethoxa zole 800 mg-trimethop rim 160 mg tablet TAKE 1 TABLET BY MOUTH EVERY 12 HOURS active Not Available Not Available No t Available omeprazole 40 mg capsule,greta yed release TAKE 1 CAPSULE BY MOUTH EVERY DAY active Not Available Not Available No t Available aspirin 81 mg tablet,delay ed release TAKE 1 TABLET BY MOUTH EVERY DAY active Not Available Not Available No t Available tramadol 50 mg tablet TAKE 1 TABLET BY MOUTH TWICE DAILY active Not Available Not Available No t Available spironolacto ne 25 mg tablet TAKE 1 TABLET BY MOUTH DAILY active Not Available Not Available Not Available bisoprolol fumarate 5 mg tablet TAKE 1/2 TABLET BY MOUTH DAILY active Not Available Not Available Not Available potassium chloride 20 mEq oral packet MIX AND DRINK 1 PACKET BY MOUTH TWICE DAILY WITH FOOD. active Not Available Not Available No t Available magnesium oxide 400 mg (241.3 mg magnesium) tablet TAKE 1 TABLET BY MOUTH TWICE DAILY AFTER MEALS active Not Available Not Available No t Available doxycycline monohydrate 100 mg capsule TAKE 1 CAPSULE BY MOUTH EVERY 12 HOURS active Not Available Not Available No t Available glipizide ER 2.5 mg tablet, extended release 24 hr TAKE 1 TABLET BY MOUTH EVERY DAY active Not Available Not Available No t Available cephalexin 500 mg capsule TAKE 1 CAPSULE BY MOUTH THREE TIMES A DAY active Not Available Not Available Not Available pantoprazole 40 mg tablet,delay ed release TAKE 1 TABLET BY MOUTH TWICE DAILY active Not Available Not Available No t Available simvastatin 20 mg tablet TAKE 1 TABLET BY MOUTH AT BEDTIME active Not Available Not Available No t Available docusate sodium 100 mg capsule TAKE 1 CAPSULE BY MOUTH TWICE DAILY active Not Available Not Available No t Available oxybutynin chloride ER 5 mg tablet,exten ded release 24 hr TAKE 1 TABLET BY MOUTH AT BEDTIME active Not Available Not Available No t Available omeprazole 20 mg capsule,greta yed release TAKE 1 CAPSULE BY MOUTH EVERY DAY active Not Available Not Available No t Available Banophen 25 mg capsule TAKE 1 CAPSULE BY MOUTH THREE TIMES DAILY active Not Available Not Available Not Available diltiazem CD 120 mg capsule,exte nded release 24 hr TAKE 1 CAPSULE BY MOUTH DAILY. REPLACES BISOPROLOL active Not Available Not Available N ot Available montelukast 10 mg tablet TAKE 1 TABLET BY MOUTH EVERY DAY active Not Available Not Available No t Available furosemide 20 mg tablet TAKE 1 TABLET BY MOUTH EVERY DAY active Not Available Not Available No t Available mirtazapine 15 mg tablet TAKE 1/2 TABLET BY MOUTH EVERY DAY AT BEDTIME active Not Available Not Available No t Available levalbuterol 1.25 mg/3 mL solution for nebulization INHALE 1 VIAL (3 ML) VIA NEBULIZER THREE TIMES A DAY active Not Available Not Available No t Available polyethylene glycol 3350 17 gram/dose oral powder DISSOLVE 17 GRAMS IN LIQUID AND TAKE BY MOUTH EVERY DAY UNTIL BOWEL HABITS RETURN TO NORMAL active Not Available Not Available No t Available levofloxacin 500 mg tablet TAKE 1 TABLET BY MOUTH DAILY FOR 10 DAYS active Not Available Not Available Not Available fluticasone propionate 50 mcg/actuatio n nasal spray,suspen ashley USE 1 SPRAY INTO EACH NOSTRIL ONCE A DAY active Not Available Not Available N ot Available sertraline 50 mg tablet TAKE 1 TABLET BY MOUTH EVERY MORNING active Not Available Not Available No t Available lisinopril 2.5 mg tablet TAKE 1 TABLET BY MOUTH DAILY active Not Available Not Available Not Available doxycycline hyclate 100 mg tablet TAKE 1 TABLET BY MOUTH TWICE DAILY active Not Available Not Available No t Available amoxicillin 875 mg-potassium clavulanate 125 mg tablet TAKE 1 TABLET BY MOUTH TWICE DAILY active Not Available Not Available No t Available Ventolin HFA 90 mcg/actuatio n aerosol inhaler INHALE 2 PUFFS BY MOUTH EVERY 4 TO 6 HOURS NEEDED active Not Available Not Available No t Available oxycodone 5 mg tablet TAKE 1/2 TABLET BY MOUTH EVERY 6 HOURS NEEDED FOR SEVERE PAIN active Not Available Not Available Not Available metoprolol tartrate 25 mg tablet TAKE 1 TABLET BY MOUTH TWICE DAILY active Not Available Not Available No t Available nitrofuranto in monohydrate/ macrocrystal s 100 mg capsule TAKE 1 CAPSULE BY MOUTH EVERY 12 HOURS WITH FOOD FOR 7 DAYS active Not Available Not Available N ot Available DILT-XR 240 mg capsule, extended release TAKE ONE CAPSULE BY MOUTH EVERY DAY active Not Available Not Available No t Available Flovent HFA 110 mcg/actuatio n aerosol inhaler INHALE 2 PUFFS BY MOUTH TWICE DAILY active Not Available Not Available No t Available FeroSul 325 mg (65 mg iron) tablet TAKE 1 TABLET BY MOUTH TWICE DAILY active Not Available Not Available No t Available ProChamber USE DIRECTED active Not Available Not Available No t Available OneTouch Verio test strips CHECK SUGARS DAILY active Not Available Not Available No t Available Eliquis 5 mg tablet TAKE 1 TABLET BY MOUTH TWO TIMES A DAY active Not Available Not Available Not Available Eliquis 2.5 mg tablet TAKE 1 TABLET BY MOUTH TWICE DAILY active Not Available Not Available No t Available potassium chloride ER 20 mEq tablet,exten ded release TAKE 1 TABLET BY MOUTH DAILY active Not Available Not Available Not Available Anoro Ellipta 62.5 mcg-25 mcg/actuatio n powder for inhalation INHALE 1 PUFF BY MOUTH EVERY DAY active Not Available Not Available No t Available OneTouch Delica Plus Lancet 30 gauge USE TO CHECK SUGARS DAILY active Not Available Not Available No t Available OneTouch Verio Reflect Meter USE TO CHECK SUGARS DAILY active Not Available Not Available No t Available BinaxNOW COVID-19 Ag Self Test kit FOLLOW PACKAGE DIRECTIONS active Not Available Not Available N ot Available Vitals Date Recorded Heart rate Body temperature Respiratory rate Oxygen saturation Oxygen saturation in Arterial blood by Pulse oximetry Body temperature Heart rate Oxygen saturation Oxygen saturation in Arterial blood by Pulse oximetry Body weight Respiratory rate Systolic blood pressure Diastolic blood pressure Systolic blood pressure Diastolic blood pressure Provider Name and Address Organization Details Last Updated DateTime 3 92 /min 97.9 [degF] 14 /min 99 % 99 % 97.9 [degF] 92 /min 99 % 99 % 57427.5 52 g 14 /min 138 mm[Hg] 67 mm[Hg] 138 mm[Hg] 67 mm[Hg] Not Available [employer] - production 3 13:17:06 Date Recorded Body weight Provider Name an d Address Organization Details Last Updated DateTime 12/12/2022 46924.6 g Jose Martin Shelton [address] [place] [address],[address], [place], [address], [place] - [employer] [facility] 12/12/2022 13:03:46 Date Recorded Body temperature Heart rate Oxygen saturation Oxygen saturation in Arterial blood by Pulse oximetry Respiratory rate Systolic blood pressure Diastolic blood pressure Provider Name and Address Organization Details Last Updated DateTime 97.8 [degF] 97 /min 97 % 97 % 18 /min 114 mm[Hg] 76 mm[Hg] Not Available [employer] 13:50:19 Social History None recorded. Functional Status None recorded. Mental Status None recorded. Family History Nothing Reported. Medical History No medical history recorded. Gynecological HistoryNo gynecological history recorded. Obstetrics History GPAL:G 0 P 0 0 0 0 Past Encounters Encounter ID Performer Location Encounter Start Date Encounter Closed Date Diagnosis/Indication Diagnosis SNOMED-CT Code Diagnosis ICD10 Code [id number] Jacobo Disla MD [facility] [address] [place] [phone] 03/08/2022 13:34:54 03/11/2022 16:53:14 Wound of skin 806625547 T14.8XXA [id number] Alexandria Shea MD [facility] [address] [place] [phone] 12/12/2022 12:48:46 12/13/2022 10:47:07 Urinary symptoms 007044821 R39.9 Health Concerns Section Related Observation LastModified by Organization Detai ls LastModified Time None Recorded Concern Status LastModified by Organization Details LastModified Time None Recorded Advance Directives Directive None Recorded Payers Encounter Date Sequence Insurance Name Policy Number Policy Salcido Covered Member ID Salcido Member ID Guarantor Name 03/08/2022 1 [facility] - DOS PRIOR TO 2022 - DUAL ELIGIBLE (MEDICARE REPLACEMENT/ADV ANTAGE - HMO) Jenifer Mercado [id number] Jenifer Mercado 12/12/2022 1 [facility] - DOS ON OR AFTER 2022 - DUAL ELIGIBLE - CUSTODIAL OPTIONS AND ONE CARE (MEDICARE REPLACEMENT/ADV ANTAGE - HMO) Jenifer Rogelio [id number] Jenifer Schafer Rogelio Notes Date Note Type Note Provider Name and Address Organization Details Recorded Time 03/08/2022 text/html [facility] Nursing Assessment: Reason For Request: PMH: Patient is on blood thinners Reason for request: Patient his her left leg against a rock and it has been on and off bleeding. Incident took place at 3am this morning 03/08/22. Chief Complaints: Injury PMH: Hypertension, Heart Disease, COPD/Asthma Allergies: No Known Comments: Members dtr calling to place an [facility] referral. Mom with paper thin skin, and on blood thinners. She was getting up to go to the bathroom, she turned her walker and hit her left ankle. Site is about the size of quarter, area has been bleeding off/on since 3am. Daughter has put gauze, triple abx ointment and wrap. Would like area assessed. Jacobo Disla MD [address] [place] [address],[address], [place], [phone], [employer] 03/08/2022 13:59:24 12/12/2022 text/html [facility] Nursing Assessment: Reason For Request: Daughter reporting UTI. Confused, agitated, angry. Started last night, has had them, chronic UTI. Doc is Chief Complaints: UTI/Pyelonephritis PMH: Hypertension, Heart Disease, COPD/Asthma Comments: Members daughter calling in to place a referral, member identified via /name. Member with increased confusion, agitation and anger. Member does also state she has some burning with urination. Member does wear a brief for incontinence, per daughter no change in color but may have a slight odor to it. Denies fever/chills. Daughter would like her evaluated to a UTI. SEGMD: denies fever/chills/n/v/d . Pat d/c 1 month ago with doxycycline but was treated for pneumonia and UTI-has had multiple abx/ multiple cephalosporins/ quinolones as well with good effect per daughter.......... .................. .................. .................. .................. .................. .................. .................. ...... Studio Operator Note From Gavin Snow: Pt's daughter suspects UTI in pt due to increased agitation and confusion over last 3 days Pt presents confused and easily aggravated. Skin PWD, HEENT unremarkable PERRL, airway patent with adequate tidal volume and clear lung sounds in all cody. Abdomen soft and non distended in all guadrants. Arms and legs unremarkable with CMS intact. Pt has full ROM in all extremities and able to ambulate with walker to commode to provide urine sample. UA + for JOSE and NIT and VS stable. POC BGL 190mg/gl and pt afebrile. [facility] contacted who prescribed 200mg Cefpodoxime and pt/daughter were educated on S/S that would indicate 911/ED visit. Pt/daughter were instructed to follow course of ABX and follow up with PCP .................. .................. .................. .................. .................. .................. .................. ............... Disposition: Fulfilled Alexandria Shea MD [address] [facility],[address], [place], [phone], ELIZABETH LYNNE 12/12/2022 13:35:09 OBGyn Episode No OBEpisode recorded.
--- OUTSIDE RECORDS SUMMARY | 2024-05-30 14:21 | XMS_ITS | Data Portability ---
Author Organization [place] - [facility] Address [address] [place] [address] Care Team Providers Care Director Of Software Engineering Name Role Phone GIANNI GU Primary Care Provider [phone] VARINDER TARYN OTHER TC [facility]OS[facility] OTHER Assessment Encounter Date Assessment Date Assessment LastModified by Organization Details LastModified Time 02/09/2020 02/09/2020 Overview/History :Carlos gregory is an 79-year-old female that as a new patient [facility]. Her daughter had contacted [facility] because she has been not acting her usual self. The patient has been having difficulty voiding, she has been denying burning with urination but is having a hard time initiating a stream. The patient is also reporting low back pain. Her daughter tells me that she recently had cortisone injections in her back. She is concerned about possible urinary tract infection since her mother is not acting like herself. Exam: On exam patient is awake and alert, afebrile and hemodynamically stable. She is engaging appropriately in conversation, she does appear to be a bit depressed and have a flat affect. Lungs clear bilaterally, heart rate regular. She is endorsing low back pain, no CVA tenderness. No suprapubic tenderness. DDx considered, but not limited to:Urinalysis suggestive of urinary tract infection. Polynephritis are unlikely as patient is afebrile and not endorsing any CVA tenderness. Back pain could be due to underlying degenerative disc disease or possible back strain. Flat affect likely due to mild depression as the patient verbalizes she has had a difficult time staying home during COVID. Work up/Results:Urinaly sis suggestive of acute urinary tract infection, urine culture pending. Plan/Discussion:I discussed with the patient and her daughter the results of her urinalysis. I started treating her for an acute urinary tract infection. I did reassured them that if the culture comes back showing she should be on a different antibiotic that that will be prescribed at that time. If she continues to be not herself after completing her antibiotics she may benefit from speaking to premier care provider about beginning to treat her depression. The patient and her daughter verbalized understanding of discharge instructions as well as ER precautions. In order to obtain further information and compare any laboratory results/values, I have accessed patient records on the [employer] [facility]. This information was pertinent in my medical decision making today. Time On Scene with Patient: 00:37:21 Proper Personal Protective Equipment (PPE), including gloves, eye protection, masks, and gowns, shoe covers were donned and doffed appropriately and all equipment cleaned using approved technique with germicidal disposable wipes prior to and after care of this patient according to [facility]'s infection prevention protocols. Not available 02/09/2020 15:15:56 07/31/2020 07/31/2020 Time On Scene with Patient: 01:13:47 [email or web address] Not available 07/31/2020 18:23:18 08/10/2020 08/10/2020 Time On Scene with Patient: 00:23:20 [email or web address] Not available 08/10/2020 16:06:51 Plan of Treatment Reminders Order Date Submit Date Provider Last Modified By Organization Details Last Modified Time Details Appointments None recorded. Lab urinalysi s, dipstick 2019 020 [email or web address] 1 [facility], [address] [place], [address], 0 12:20:25 culture, urine 2019 020 KWADWO [facility], [address] [place], [address], 0 21:12:23 Referral None recorded. Procedures None recorded. Surgeries None recorded. Imaging None recorded. Medication Orders Keflex 500 mg capsule 2019 020 [email or web address] [facility], [address], [place], [id number], 17:12:21 cephalexi n 500 mg capsule 2019 020 [email or web address] Not available 17:12:21 mupirocin 2 % topical ointment 2020 021 ATHENAFAX [facility], [address], [place], [id number], 18:13:34 doxycycli ne hyclate 100 mg capsule [email or web address] [place] [address] [facility], [address], [place], [id number], 15:57:35 doxycycli ne hyclate 100 mg tablet [address] [facility]164, [address], [place], [id number], 15:57:41 doxycycli ne hyclate 100 mg capsule 2020 021 [email or web address] Not available 12:14:36 Patient TargetsNo targets recorded. Patient Instructions Encounter Date Encounter Id Patient Instructions Last Modified By Organization Details Last Modified Time 02/09/2020 [id number] WE CAME TO SEE Y OU TODAY FOR CONCERNS OF BACK PAIN AND UTI YOUR URINALYSIS WAS SUGGESTIVE OF ACUTE INFECTION AND YOU ARE BEING TREATED WITH ANTIBIOTICS FOR THIS. YOUR URINE WAS ALSO SENT OUT FOR CULTURE, IF THIS SHOWS YOU NEED A DIFFERENT ANTIBIOTIC THEN WE WILL CALL YOU PLEASE BE SURE TO DRINK PLENTY OF FLUIDS You were diagnosed with a urinary tract infection today. Please take all antibiotics for the entire duration of the prescription. Most urinary tract infections can be treated successfully with the initial antibiotic choice. Occasionally, the bacteria in the urine is resistant to the first antibiotic. In those cases, you will require a different antibiotic. If you do not feel like you are improving or you develop fever, back pain or vomiting, please contact your physician immediately. Please note urine culture specimens can take up to four days for processing. If we receive results sooner, we will call you. If you develop any new or worsening symptoms and need after hours care, please go to nearest ER and/or call 911. If you have additional concerns or develop a change in your condition between 8am-10pm, please call [facility] at [phone] to help navigate your care. [email or web address] Not available 02/09/2020 12:22:20 02/16/2020 [id number] Care Coordinated Call Patient's phone number is her daughter's cell number. Her daughter said that patient is still having problems when she urinates, it's hard for her to start her stream. Pt finished antibitoics. I offered a follow up visit, but daughter is currently at a dog show. She said she would call us back for a follow up appointment after speaking with her mom and seeing if she would like an appointment. Daughter does have a call out to her pcp and a specialist. [email or web address] Not available 02/16/2020 16:41:55 07/31/2020 [id number] Suture Care Discharge Instructions Keep the stitches dry until tomorrow. On the second day, begin washing with soap and water 1-2 times a day, gently removing all scabbed material which can prevent healing. Apply antibiotic ointment and a non-adherent dressing. Elevate the area to decrease pain and swelling when possible. Tylenol (over the counter) for pain if needed. Minimize sun exposure/use sunblock over the stitches for the first year to decrease scarring. After the stitches have been taken out you may use Mederma, Scar Away (pqjb-axo-gnglfrg medicines) or similar products over the area to minimize scarring. Scars can take up to a year to mature (2 years for children) and may be red and lumpy initially. Follow up immediately with a medical provider if you have increasing pain, increasing redness, increasing swelling, pus from wound, red streaking, fever, wound reopening, persistent bleeding or any other worrisome symptoms. Have the stitches removed in 5 days 7 days 7-10 days 10-12 days as advised by your Provider. If you develop any new or worsening symptoms and need after hours care, please go to nearest ER and/or call 911. If you have additional concerns or develop a change in your condition between 8am-10pm, please call [facility] at [phone] to help navigate your care. Suture Care Discharge Instructions Keep the stitches dry until tomorrow. On the second day, begin washing with soap and water 1-2 times a day, gently removing all scabbed material which can prevent healing. Apply petroleum jelly or Eucerin cream and a non-adherent dressing. Elevate the area to decrease pain and swelling when possible. Tylenol (over the counter) for pain if needed. Minimize sun exposure/use sunblock over the stitches for the first year to decrease scarring. After the stitches have been taken out you may use Mederma, Scar Away (mauy-kit-tlqtxrm medicines) or similar products over the area to minimize scarring. Scars can take up to a year to mature (2 years for children) and may be red and lumpy initially. Follow up immediately with a medical provider if you have increasing pain, increasing redness, increasing swelling, pus from wound, red streaking, fever, wound reopening, persistent bleeding or any other worrisome symptoms. Have the stitches removed in as advised by your Provider. If you develop any new or worsening symptoms and need after hours care, please go to nearest ER and/or call 911. If you have additional concerns or develop a change in your condition between 8am-10pm, please call [facility] at [phone] to help navigate your care. Thank you for your visit with [facility] today. You were seen today for treatment of a wound. Please seek immediate medical attention if you develop increased pain, redness, or swelling of your wound. Also, you should be evaluated if the wound becomes warm to the touch, or if there is a cloudy, yellow-brown discharge from the wound. There is always the possibility of a hidden tendon injury or foreign object in the wound. If you have problems moving your arm or leg, or if you see red streaks up the arm or leg, seek immediate medical attention. If you develop any new or worsening symptoms and need after hours care, please go to nearest ER and/or call 911. If you have additional concerns or develop a change in your condition between 8am-10pm, please call [facility] at [phone] to help navigate your care. Not available 08/02/2020 09:38:37 08/10/2020 [id number] [facility] you [facility] yo ur [facility]. You were seen today for treatment of a wound. Please seek immediate medical attention if you develop increased pain, redness, or swelling of your wound. Also, you should be evaluated if the wound becomes warm to the touch, or if there is a cloudy, yellow-brown discharge from the wound. There is always the possibility of a hidden tendon injury or foreign object in the wound. If you have problems moving your arm or leg, or if you see red streaks up the arm or leg, seek immediate medical attention. If you develop any new or worsening symptoms and need after hours care, please go to nearest ER and/or call 911. If you have additional concerns or develop a change in your condition between 8am-10pm, please call [facility] at [phone] to help navigate your care. Not available 08/10/2020 15:58:22 Reason for Referral None Reported. Results Created Date Observation Date Name Description Value Unit Range Abnormal Flag Note LastModifiedBy Organization Detail LastModifiedTime 02/09/20 20 02/09/2020 cultu re, urine special requests NONE Not Available [facility] [address] [place], [address], 02/10/2020 21:12:23 02/09/20 20 02/10/2020 cultu re, urine specimen description URINE Not Available [facility] [address] [place], [address], 02/10/2020 21:12:23 02/09/20 20 02/10/2020 cultu re, urine culture Mixed bacter ial rowdy, indica tive of urogen ital contam inatio n. Not Available [facility] [address] [place], [address], 02/10/2020 21:12:23 02/09/20 20 02/10/2020 cultu re, urine report status FINAL 2019 Not Available [facility] [address] [place], [address], 02/10/2020 21:12:23 02/09/20 20 02/09/2020 urina lysis , dipst ick Appearance clear Not Available [facility] [address] [place], [address], 02/09/2020 12:13:32 02/09/20 20 02/09/2020 urina lysis , dipst ick Color yellow Not Available [facility] [address] [place], [address], 02/09/2020 12:13:32 02/09/20 20 02/09/2020 urina lysis , dipst ick Glucose negati ve Not Available [facility] [address] [place], [address], 02/09/2020 12:13:32 02/09/20 20 02/09/2020 urina lysis , dipst ick Bilirubin negati ve Not Available [facility] [address] [place], [address], 02/09/2020 12:13:32 02/09/20 20 02/09/2020 urina lysis , dipst ick Ketones NEG Not Available [facility] [address] [place], [address], 02/09/2020 12:13:32 02/09/20 20 02/09/2020 urina lysis , dipst ick Sp. [place] 1.015 Not Available [facility] [address] [place], [address], 02/09/2020 12:13:32 02/09/20 20 02/09/2020 urina lysis , dipst ick Blood NEG Not Available [facility] [address] [place], [address], 02/09/2020 12:13:32 02/09/20 20 02/09/2020 urina lysis , dipst ick pH 5 Not Available [facility] [address] [place], [address], 02/09/2020 12:13:32 02/09/20 20 02/09/2020 urina lysis , dipst ick Protein negati ve Not Available [facility] [address], [place], [address], 02/09/2020 12:13:32 02/09/20 20 02/09/2020 urina lysis , dipst ick Urobilirubin negati ve Not Available [facility] [address], [place], [address], 02/09/2020 12:13:32 02/09/20 20 02/09/2020 urina lysis , dipst ick Nitrites + Not Available [facility] [address], [place], [address], 02/09/2020 12:13:32 02/09/20 20 02/09/2020 urina lysis , dipst ick Leukocytes + Not Available [facility] [address], [place], [address], 02/09/2020 12:13:32 Result Notes None recorded. Procedures Surgical History Date Name Laterality Status Provider Name and Address Organization Details Recorded Time 021 Laceration, General - DH completed Asiya Brennan NP [address] [place], [address], [place] [facility] 08/02/2020 09:43:43 020 Medication Review completed KEVIN CRUZ NP [address] [place], [address], [place] [facility] 02/09/2020 15:12:08 coronary artery bypass grafts x 4 completed Asiya Brennan NP [address] [place], [address], [place] [facility] 07/31/2020 17:19:15 open reduction of fracture of femur completed Asiya Brennan NP [address] [place], [address], [place] [facility] 07/31/2020 17:19:29 cholecystectomy completed Asiya Brennan NP [address] [place], [address], [place] [facility] 07/31/2020 17:19:39 section completed Asiya Brennan NP [address], [place], [address], [place] [facility] 07/31/2020 17:19:47 bilateral extraction of cataracts completed Asiya Brennan NP [address], [place], [address], [place] [facility] 07/31/2020 17:19:54 Oral surgery procedure completed Asiya Brennan NP [address], [place], [address], [place] [facility] 07/31/2020 17:20:01 Imaging Results None recorded. Procedure Notes None recorded. Medical Equipment None Reported. Allergies No known drug allergies Medications Name Sig Start Date Stop Date Status Note LastModified by Organization Details LastModified Time doxycycline hyclate 100 mg capsule Take 1 capsule twice a day by oral route as directed. 2020 active Not Available Not Available Not Avai lable ipratropium 0.5 mg-albutero l 3 mg (2.5 mg base)/3 mL nebulizatio n soln inhale contents of 1 vial ( 3 millilite rs ) in nebulizer by mouth and INTO THE LUNGS twice a day active Not Available Not Available No t Available azithromyci n 250 mg tablet 02/08 completed Not Available Not Available Not Available benzonatate 200 mg capsule TAKE ONE CAPSULE BY MOUTH THREE TIMES A DAY NEEDED FOR COUGH. active Not Available Not Available No t Available Nystop 100,000 unit/gram topical powder active Not Available Not Available Not Available lisinopril 20 mg tablet TAKE 1 TABLET BY MOUTH EVERY DAY active Not Available Not Available No t Available prednisone 20 mg tablet 07/31 completed Not Available Not Available Not Available prednisone 5 mg tablet TAKE 1 TABLET BY MOUTH EVERY DAY active Not Available Not Available No t Available ciprofloxac in 500 mg tablet TK 1 T PO Q 12 H 07/31 completed Not Available Not Available Not Available aspirin 81 mg tablet,greta yed release TAKE 1 TABLET BY MOUTH ONCE DAILY active Not Available Not Available No t Available tramadol 50 mg tablet TAKE 1 TABLET BY MOUTH TWICE DAILY active Not Available Not Available No t Available alprazolam 0.25 mg tablet 02/08 completed Not Available Not Available Not Available DOK 100 mg capsule TAKE 1 CAPSULE BY MOUTH TWICE DAILY active Not Available Not Available No t Available benzonatate 100 mg capsule take 1 capsule by mouth three times a day 02/08 completed Not Available Not Available Not Available prednisone 2.5 mg tablet 07/31 completed Not Available Not Available Not Available cephalexin 500 mg capsule 500 mg PO administe red on scene. Time administe red: 12:00 07/31 completed Not Available Not Available Not Available simvastatin 20 mg tablet TAKE 1 TABLET BY MOUTH AT BEDTIME active Not Available Not Available No t Available metoprolol tartrate 50 mg tablet TAKE 1 TABLET BY MOUTH TWICE DAILY active Not Available Not Available No t Available oxybutynin chloride ER 5 mg tablet,exte nded release 24 hr TAKE 1 TABLET BY MOUTH AT BEDTIME active Not Available Not Available No t Available omeprazole 20 mg capsule,del ayed release TAKE 1 CAPSULE BY MOUTH EVERY DAY active Not Available Not Available No t Available montelukast 10 mg tablet TAKE 1 TABLET BY MOUTH EVERY DAY active Not Available Not Available No t Available mupirocin 2 % topical ointment APPLY A SMALL AMOUNT EXTERNALL Y TO THE AFFECTED AREA THREE TIMES A DAY active Not Available Not Available No t Available furosemide 20 mg tablet TAKE 1 TABLET BY MOUTH TWICE DAILY active Not Available Not Available No t Available cefuroxime axetil 500 mg tablet 02/08 completed Not Available Not Available Not Available fluticasone propionate 50 mcg/actuati on nasal spray,suspe nsion USE 1 SPRAY INTO EACH NOSTRIL ONCE A DAY active Not Available Not Available No t Available doxycycline hyclate 100 mg tablet TAKE 1 TABLET BY MOUTH TWICE A DAY DIRECTED FOR 7 DAYS 08/10 completed Not Available Not Available Not Available Ventolin HFA 90 mcg/actuati on aerosol inhaler INHALE 2 PUFFS BY MOUTH AND ITL FOUR TIMES A DAY IF NEEDED active Not Available Not Available No t Available Anoro Ellipta 62.5 mcg-25 mcg/actuati on powder for inhalation INHALE 1 PUFF BY MOUTH ONCE DAILY active Not Available Not Available No t Available Fluzone High-Dose 2019-20 (PF) 180 mcg/0.5 mL intramuscul ar syringe inject 0.5 millilite rs intramusc ularly active Not Available Not Available No t Available Vitals Date Recorded Respiratory rate Body temperature Oxygen saturation Oxygen saturation in Arterial blood by Pulse oximetry Heart rate Systolic blood pressure Diastolic blood pressure Provider Name and Address Organization Details Last Updated DateTime 0 18 /min 96.3 [degF] 98 % 98 % 81 /min 152 mm[Hg] 60 mm[Hg] Not Available [facility] 0 11:57:30 Date Recorded Heart rate Oxygen saturation Oxygen saturation in Arterial blood by Pulse oximetry Respiratory rate Body temperature Systolic blood pressure Diastolic blood pressure Provider Name and Address Organization Details Last Updated DateTime 1 70 /min 95 % 95 % 18 /min 98.5 [degF] 130 mm[Hg] 58 mm[Hg] Not Available [facility] 1 17:14:50 Date Recorded Oxygen saturation Oxygen saturation in Arterial blood by Pulse oximetry Heart rate Body temperature Respiratory rate Systolic blood pressure Diastolic blood pressure Provider Name and Address Organization Details Last Updated DateTime 1 94 % 94 % 80 /min 98.4 [degF] 20 /min 130 mm[Hg] 60 mm[Hg] Not Available [facility] 1 15:50:30 Social History Question Answer Notes LastModified by Organizat ion Details LastModified Time Tobacco Smoking Status Former Smoker KEVIN CRUZ, JEWELS [address] [facility], [place], [address], [place] [facility] 02/09/2020 11:58:49 Do You Have An Advance Directive? No [email or web address] Information not available 02/09/2020 What Is Your Code Status? Full Code [email or web address] Information not available 02/09/2020 Within The Past 12 Months, Have You Worried That Your Food Would Run Out Before You Got Money To Buy More. No [email or web address] Information not available 02/09/2020 Fall Risk: Do You Feel Unsteady When Standing Or Walking? No [email or web address] Information not available 02/09/2020 We Know That How And When People Interact With Friends And Family Can Be Very Different From Person To Person. How Often Do You Have The Opportunity To See Or Talk To People That You Care About And Feel Close To? (Ex: Talking To Friends On The Phone Or Visiting Friends Or Family Or Going To [employer] Or Club Meetings) 1 Or 2 Times Per Week [email or web address] Information not available 02/09/2020 We Know From Many Of Our Patients That Covering All Of Their Costs Can Be Difficult At Times. This Can Cause Stress And Impact Health. In The Past Year, Have You Been Unable To Get Any Of The Following When It Was Really Needed? No Information not available 02/09/2020 What Is Your Housing Situation Today? I Have Housing [email or web address] Information not available 02/09/2020 Would You Like Help Connecting To Resources? None [email or web address] Information not available 02/09/2020 How Many Years Have You Smoked Tobacco? 70 [email or web address] Information not available 02/09/2020 Sex: Unknown Functional Status None recorded. Mental Status None recorded. Family History Relationship Description Onset Age of this Age Resolved Age Notes LastModified by Organization Details LastModified Time Father Coronary arterioscler osis [email or web address] Not available 12:00:26 Medical History Condition Response Diabetes N Coronary Artery Disease Y High Cholesterol Y Cancer N Pulmonary Embolism N Stroke N Hypertension Y Depression N COPD Y Asthma Y Gynecological HistoryNo gynecological history recorded. Obstetrics History GPAL:G 0 P 0 0 0 0 Past Encounters Encounter ID Performer Location Encounter Start Date Encounter Closed Date Diagnosis/Indication Diagnosis SNOMED-CT Code Diagnosis ICD10 Code [id number] KEVIN CRUZ NP [facility] [address] [facility] [place] [address] 02/09/2020 11:53:18 02/10/2020 18:30:19 Chronic urinary tract infection 635809035 N39.0 Mild depression [id number] 3 F32.0 [id number] Carina Valles RN [facility] [address] [facility] [place] [address] 02/16/2020 16:36:56 02/16/2020 16:42:10 [id number] Asiya Brennan NP [facility] [address] [facility] [place] [address] 07/31/2020 17:09:37 08/04/2020 10:31:48 Laceration of lower leg 095468401 S81.812A [id number] Asiya Brennan NP [facility] [address] [address] 08/10/2020 15:43:37 08/12/2020 12:52:17 Wound of skin 483894420 T14.8XXD Health Concerns Section Related Observation LastModified by Organization Detai ls LastModified Time None Recorded Concern Status LastModified by Organization Details LastModified Time None Recorded Advance Directives Directive N: Payers Encounter Date Sequence Insurance Name Policy Number Policy Salcido Covered Member ID Salcido Member ID Guarantor Name 02/09/2020 1 [place] [employer] Jenifer Schafer Sypek [id number] Jenifer Sypek 02/09/2020 2 [place] [facility]ifer Sypek [id number] Jenifer Sypek 02/16/2020 1 [place] [employer] Jenifer S Sypek [id number] Jenifer Sypek 02/16/2020 2 [place] [facility] Jenifer Sypek [id number] Jenifer Sypek 07/31/2020 1 [place] [employer] Jenifer Schafer Sypek [id number] Jenifer Sypek 07/31/2020 2 [place] [facility] Jenifer Sypek [id number] Jenifer Sypek 08/10/2020 2 [place] [facility] Jenifer Sypek [id number] Jenifer Sypek 08/10/2020 1 [facility] - DOS PRIOR TO 2022 - DUAL ELIGIBLE (MEDICARE REPLACEMENT/AD VANTAGE - HMO) Jenifer Sypek [id number] Jenifer Sypek Notes Date Note Type Note Provider Name and Address Organization Details Recorded Time 02/09/2020 text/html This is an 79-year-old female that is new to [facility]. Her daughter had contacted [facility] because the patient has been acting not like herself and has been having some difficulties urinating. She has a medical history significant for asthma, coronary artery disease, COPD, hyperlipidemia, hypertension, CHF, GERD, degenerative disc disease and paroxysmal atrial fibrillation. The patient tells me that she is having low back pain, her daughter adds that she recently had cortisone injections last week. The patient also reports that she is having some difficulty voiding however she denies any burning with urination. She just says that she feels very off . The patient's daughter is concerned that she is becoming increasingly depressed due to being homebound because of COVID 19. [facility] [address], [place], [address], [place] - [facility] 02/09/2020 15:16:03 07/31/2020 text/html Patient is a 79 year alert female who is known to and new to this provider. Patient presents with lower left leg laceration that occurred 11:30 this am. Patient is unable to recall the direct mechanism of injury. She does believe that the laceration occurred after ambulating with her walker to the bathroom. Patient medical history significant for CAD/CHF, COPD, asthma, hyperlipidemia, HTN, COPD, GERD, PAF, DDD Asiya Brennan NP [address], [place], [address], [place] - [facility] 08/02/2020 09:52:11 08/10/2020 text/html Patient is an alert 79 year old female who is known to and known to this provider. Chief complaint this visit is follow up for wound check to left lower leg; 5 sutures were placed 07/31/2026. There are no reported aggravating factors and no alleviating factors. Patient medical history significant for CAD, COPD, asthma, hyperlipidemia, HTN, GERD, PAF, DDD. Asiya Brennan NP [address], [place], [address], [place] [facility] 08/10/2020 16:17:20 OBGyn Episode No OBEpisode recorded.
--- NOTE | 2024-05-30 14:27 | MHC.OFFVIS ---
Vital Signs 05/30/24 14:28 Height 4 ft 11 in BP 111/64 Blood Pressure Location Lt brachial Position Sitting Pulse 77 Pulse Source Doppler Pulse Oximetry (%) 94 Oxygen Delivery Method Room Air Intake Visit Reasons: Congested cough, wheezing Allergies carvedilol Allergy (Verified 03/18/24 14:55) Shortness of Breath sertraline [From Zoloft] Allergy (Verified 03/18/24 14:55) Shortness of Breath spironolactone Allergy (Verified 03/18/24 14:55) Shortness of Breath adhesive tape Adverse Reaction (Severe, Verified 03/18/24 14:55) skin tears mirtazapine Adverse Reaction (Severe, Verified 03/18/24 14:55) psychotic episode HPI HPI Congested cough, wheezing: Details: 83-year-old lady, patient of Dr. Aldana followed for bronchiectasis with recurrent exacerbations presents complaining of dyspnea, orthopnea, and crackling/wheezing. [facility] Medical History (Updated 05/30/24 @ 15:03 by Sudeep Muniz MD) Mild bibasilar atelectasis Aspiration pneumonia Clostridioides difficile infection Pneumonia Atrial flutter Pyuria Atelectasis of right lung Encephalopathy chronic History of infection with vancomycin resistant Enterococcus (VRE) Congestive heart failure Heart failure Dyspnea Paroxysmal A-fib COPD (chronic obstructive pulmonary disease) A-fib Acute encephalopathy Anemia Pseudomonas respiratory infection CAD (coronary artery disease) Acute respiratory failure with hypoxia Chronic dyspnea Acute hypokalemia Atrial fibrillation with RVR Anemia GI bleed Pulmonary nodules COPD (chronic obstructive pulmonary disease) Bronchiectasis Pseudomonal pneumonia Surgical History H/O umbilical hernia repair (09/18/22) History of quadruple bypass History of hip replacement History of knee replacement History of cholecystectomy Family History Other No family history of cancer Social History Household Members: Family Housing: House Are you a primary neonatal intensive care unit nurse to a significant other at home: No Do you presently have visiting nurse or other home services: No Alcohol intake: never Patient Tobacco Use Status: Former Tobacco user Tobacco use type: Cigarette Advance Directives Date on File: 08/24/22 service: No Current occupational status: retired Review of Systems Const Denies daytime sleepiness, Denies excessive sweating, Denies fatigue, Denies fever(s), Denies lethargy, Denies malaise, Denies night sweats, Denies snoring and Denies weight loss Eyes Denies blurry vision and Denies itchy eyes ENT Denies nasal congestion, Denies post nasal drip, Denies sinus pain, Denies sinus pressure and Denies other ( Thrush) Card Denies chest pain, Denies pedal edema, Denies dyspnea, Denies orthopnea and Denies paroxysmal nocturnal dyspnea Resp Denies cough, Denies hemoptysis, Denies excessive phlegm production, Denies dyspnea, Denies snoring and Denies wheezing GI Denies abdominal pain and Denies heartburn Musc Denies myalgias, Denies arthralgias and Denies joint swelling Skin/Breast Denies rash Neuro Denies memory loss and Denies seizure-like activity Psych Denies abnormal sleep pattern, Denies anxiety and Denies memory loss Endo Denies excessive sweating, Denies fatigue and Denies heat intolerance Samir/Lymph Denies easy bruising Aller/Immun Denies itchy eyes, Denies seasonal rhinorrhea and Denies wheezing Physical Exam Vital Signs: Last Vital Signs Pulse 77 05/30/24 14:28 BP 111/64 05/30/24 14:28 Pulse Ox 94 05/30/24 14:28 Oxygen Delivery Method Room Air 05/30/24 14:28 Const General: no acute distress and alert Nutritional Appearance: obese Orientation/consciousness: Other orientation findings ( oriented) HEENT Head: Yes atraumatic Eyes General: appearance normal, both eyes and all related structures Sclerae: sclerae normal EOM: EOMs intact bilaterally Neck Neck: Yes supple Lymphatic: no lymphadenopathy noted Resp Effort & Inspection: normal respiratory effort and no use of accessory muscles Auscultation: clear to auscultation bilaterally Cardio Rate: regular rate Rhythm: regular rhythm Heart sounds: no gallops, no murmurs and no rubs Skin General skin exam: other ( warm) Extrem General: No clubbing, No cyanosis and Yes edema (2+ bilateral) Assessment & Plan Assessment & Plan (1) Orthopnea: Code(s): R06.01 - Orthopnea Category: Medical Plan: Worsening orthopnea, previously on diuretic. Will treat with a course of Lasix 40 mg daily for 7 days. (2) Bronchiectasis: Code(s): J47.9 - Bronchiectasis, uncomplicated Category: Medical Qualifiers: Bronchiectasis type: with acute lower respiratory infection Qualified Code(s): J47.0 - Bronchiectasis with acute lower respiratory infection Plan: Recently treated for exacerbation, currently with no complaints of cough or significant sputum production. Continue to monitor clinically. Medications: New furosemide 40 mg PO QAM 7 tabs 0RF Discontinued furosemide (Lasix) Discontinued Reason: Doctor's Order 20 mg PO DAILY 7 days 7 tabs 0RF Coding Level of Care Code Est Pt Level 4 (39836) Diagnoses Orthopnea R06.01 Bronchiectasis with acute lower respiratory infection J47.0 Bronchiectasis type: with acute lower respiratory infection
[2024-05-30 14:28] VITALS: BP 111/64; PULSE 77; O2SAT 94
== END 2024-05-30 14:47 | disposition home or self-care (01) ==
PROVIDERS: PCP Internal Medicine; Visit Provider Internal Medicine Pulmonary Disease
DX: R06.01 Orthopnea (principal); J47.0 Bronchiectasis with acute lower respiratory infection
CPT/HCPCS: 99214

== ENCOUNTER → 2024-05-30 14:19 | Outpatient (BNVA) | payer OTHER, SELFPAY | PROVIDERS: PCP Internal Medicine; Visit Provider Internal Medicine Pulmonary Disease | DX: R06.01 Orthopnea (principal); J47.9 Bronchiectasis, uncomplicated | CPT/HCPCS: 99212 ==

== ENCOUNTER 2024-06-24 14:15 | Outpatient (AMB) | payer OTHER, SELFPAY ==
--- NOTE | 2024-06-24 13:49 | MHC.NURWM ---
Intake Intake Visit Reasons: COPD Allergies carvedilol Allergy (Verified 03/18/24 14:55) Shortness of Breath sertraline [From Zoloft] Allergy (Verified 03/18/24 14:55) Shortness of Breath spironolactone Allergy (Verified 03/18/24 14:55) Shortness of Breath adhesive tape Adverse Reaction (Severe, Verified 03/18/24 14:55) skin tears mirtazapine Adverse Reaction (Severe, Verified 03/18/24 14:55) psychotic episode Coding
--- NOTE | 2024-06-24 14:16 | A.OFFVIS_ITS ---
Vital Signs 06/24/24 14:17 Height 4 ft 11 in BMI Reason not done Patient refused/unable BP 140/92 H Blood Pressure Location Rt brachial Position Sitting Pulse 92 Pulse Source Pulse Oximeter Pulse Oximetry (%) 96 Oxygen Delivery Method Room Air Intake Visit Reasons: COPD Allergies carvedilol Allergy (Verified 03/18/24 14:55) Shortness of Breath sertraline [From Zoloft] Allergy (Verified 03/18/24 14:55) Shortness of Breath spironolactone Allergy (Verified 03/18/24 14:55) Shortness of Breath adhesive tape Adverse Reaction (Severe, Verified 03/18/24 14:55) skin tears mirtazapine Adverse Reaction (Severe, Verified 03/18/24 14:55) psychotic episode HPI Comments Details: The patient is an 83 year-old woman with known history of COPD along with chronic bronchitis due apparently has been in usual state health until for the last several months where her respiratory status has dramatically worsen. The patient has had numerous admissions in a short period of time. The patient states that she started developing worsening cough usually congested in nature. She has a hard time expectorating. Suddenly she developed significant respiratory distress with the family notices that she is decompensated very quickly. At that point EMS was called the. Usually the patient is found to be hypoxic and she is brought to the hospital. She has been admitted to normal now about 4 times in a [facility] about 2 times. Her sputum was positive for Pseudomonas aeruginosa and she was treated with ceftazidime. Ultimately she is treated and then subsequently is able to recover partially in that she is sent home. Usually the cycle restarts again. She has been having hard time since she does the hospital recently. They try sending another sputum culture but it was contaminated. In the office she was very congested. We were able to get a sputum sample and also very tenacious greenish in color and also smelling of Pseudomonas consistent with likely pseudomonal lower respiratory infections and pneumonia. The patient did received Xopenex with hypertonic saline with good response. She had been on DuoNeb but I am concerned that is drying up the mucus even more. Therefore will switch over to the Xopenex instead. I did review her CT scan of the chest done at [facility]. She has numerous pulmonary nodules in addition to thickened airways and some bronchiectatic looking airways. Therefore, the patient does have chronic airway disease now worsened by the fact that she is colonized with Pseudomonas. She has had multiple admissions to the hospital and therefore failing IV and oral antibiotics. The only option right now will be to start her inhaled tobramycin. she is already performing chest physical therapy with a flutter valve. 04/27/2023 the patient is here for a pulmonary follow-up visit. Since we last spoke she went back to the hospital. She was diagnosed with pneumonia was again placed on antibiotics. Again a course complicated with C diff colitis. 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 She was treated with p.o. vancomycin again. I explained to the patient and to the daughter that she needs to minimize antibiotic use because it will reasonable result in a very complicated abdominal process. The patient likely has a component of microaspiration likely aspiration pneumonias specially since pneumonias or mainly on the right side. She does have an increased amount of dementia and she is requiring additional care from the family. She is also falling asleep more regularly during the daytime. She is going to start her day program to see if this allows her to be more stimulated and more weight. In the meantime she is off the inhaled tobramycin. In view of her all her complications will go ahead and hold off the tobramycin for 4-6 weeks to see if there is improvement in her GI issues. She will continue with the current respiratory therapy With the Xopenex therapy. And will follow-up in 6 months. If the patient has any worsening symptoms she is to call the office for an earlier assessment. we also spoke briefly about goals of care. Talked about her code status. The patient currently is a full code we did talk about the concerns about her significant comorbidities and being too aggressive with her care. Therefore, I did recommend the patient talk to her daughter further about code status. 09/14/2023 the patient has a telehealth visit today. Overall she has been doing well. The weather spot so therefore she stayed home. She has not required any prednisone or antibiotics since we last spoke which is very reassuring. This is the longest stent of good health she has had. She is also participating in the day program where she is exposed to a lot of people and she has actually been d oing very well with that as well. She continues her respiratory therapy with Xopenex. The patient has not required any other respiratory therapy. She continues use oxygen with good effect. She does complaint of some chest congestion and mucus. Explained to her that she does have chronic bronchitis and she will always make mucus. Although she needs to be monitoring closely the collar the consistency in the frequency of the mucus. If those were to worsen she will call nor for us to treat her for potential infection. 12/13/2023 the patient is here for a pulmonary follow-up visit. She was in her usual state health until the last week when she started developing worsening cough chest congestion. For another breath. Hard time expectorating. Moderate severity. Denied any fevers or chills. The mucus was colored. She does have history of Pseudomonas. At this start her on levofloxacin and also prednisone. Today she has already feeling a little better. Although the family is concerned that she has coming to the end of the treatment still congested and coughing although not as bad. The patient still has some rhonchi and wheezing on examination. I am concerned about the use of quinolones because of the possibility of tendonitis and also the risk of C diff colitis. At the same time the patient does have chronic airway disease with significant bronchiectasis. Therefore, I will give another 10 days but a low dose levofloxacin and a lower dose prednisone. He should continue with her CPT therapy. Continue with the nebulized therapy. She has been using the oxygen with good effect. Otherwise the patient is feeling a little bit better. Her last chest x-ray personally by me from 10/30/2023 with some chronic changes decreased lung volumes and some atelectasis at the bases. Further recommendation based on forthcoming data. The patient will follow-up in 3-4 months. 02/06/2024 the patient is here for sick visit. She has had worsening cough chest congestion. Moderate severity. The mucus is very tenacious. Sometimes she has a hard time clearing her secretions. She did respond well to the levofloxacin. The patient has had history of Pseudomonas in the sputum. Likely this is related to Pseudomonas at this time. Although, she does also have a history of C diff colitis. Therefore, the patient understands that using quinolones to treat her underlying respiratory infection can lead to C diff colitis. Will go ahead and pretreat her with Flagyl to minimize risk. The patient ultimately has significant bronchiectasis. She will benefit from inhaled tobramycin to be provided in order to treat the Pseudomonas infection. Therefore, will go ahead and send a sputum culture at this time. she will start the antibiotics continue with her chest physical therapy. She should be using her Acapella valve and also her nebulized therapy. Right now she does not having significant wheezing therefore will hold off on any prednisone. The patient has any worsening symptoms she will call for further evaluation. 03/18/2024 the patient is here for a pulmonary follow-up visit. Overall she is doing better since we last saw her. She did complete the 28 days of the inhaled tobramycin. She does have a hard time with it. Gives her bad taste and she does not like to take it. She is considering not continuing the therapy. She is going to have now 20 days off the medicine which I find helpful for her to take a break. But I explained to the patient did Pseudomonas will return in her respiratory symptoms will return subsequently after that and it will continue to worsen. Therefore, we do not have a lot of alternative options in the inhaled SHY although does have some adverse symptoms it is effective treating the Pseudomonas. In the meantime she is going to continue using respiratory therapy and chest PT to clear mucus. On exam she does have some wheezing. Hold off on any prednisone at this time. If her symptoms worsen she will call. She is also monitoring closely her weight. She has gained weight but although she is eating more. Does not appear to be volume overloaded at this time. She will continue with current dose of diuretics. Will follow-up in 3-4 months. The patient has any worsening symptoms prior to that she will call for an earlier assessment. 06/24/2024 the patient is here for sick visit. She chest congestion. She was evaluated by loss month. She was. The patient is still having significant chest congestion. She started. She does complaint of abdominal pain when taking it. Primarily because she has coughing a lot. Seems that she does expectorate better when she has in the inhaled SHY. On exam she does have some rhonchi wheezing and diminished breath sounds. Will go ahead and stop her SHY for now to her belly pain gets better. [facility] Medical History (Updated 06/24/24 @ 21:04 by Carlin Aldana MD) Congestive heart failure Mild bibasilar atelectasis Aspiration pneumonia Clostridioides difficile infection Pneumonia Atrial flutter Pyuria Atelectasis of right lung Encephalopathy chronic History of infection with vancomycin resistant Enterococcus (VRE) Heart failure Dyspnea Paroxysmal A-fib COPD (chronic obstructive pulmonary disease) A-fib Acute encephalopathy Anemia Pseudomonas respiratory infection CAD (coronary artery disease) Acute respiratory failure with hypoxia Chronic dyspnea Acute hypokalemia Atrial fibrillation with RVR Anemia GI bleed Pulmonary nodules COPD (chronic obstructive pulmonary disease) Bronchiectasis Pseudomonal pneumonia Surgical History H/O umbilical hernia repair (09/18/22) History of quadruple bypass History of hip replacement History of knee replacement History of cholecystectomy Family History Other No family history of cancer Social History Household Members: Family Housing: House Are you a primary ambulatory care nurse to a significant other at home: No Do you presently have visiting nurse or other home services: No Alcohol intake: never Patient Tobacco Use Status: Former Tobacco user Tobacco use type: Cigarette Advance Directives Date on File: 08/24/22 service: No Current occupational status: retired Review of Systems Const Reports fatigue and Denies fever(s) Eyes Reports change in vision ENT Reports nasal congestion and Reports nasal discharge Card Denies chest pain and Reports dyspnea on exertion Resp Denies change in phlegm color, Reports chest congestion, Reports cough, Denies hemoptysis, Denies excessive phlegm production, Reports dyspnea on exertion and Reports wheezing GI Reports abdominal pain Musc Reports abnormal gait, Reports back pain, Reports arthralgias, Reports joint swelling and Reports muscle weakness Skin/Breast Reports rash and Reports unusual bruising Neuro Reports abnormal gait Psych Reports panic attacks Endo Reports fatigue Samir/Lymph Reports easy bruising and Denies lymphadenopathy Aller/Immun Reports wheezing Physical Exam Vital Signs: Last Vital Signs Pulse 92 06/24/24 14:17 BP 140/92 H 06/24/24 14:17 Pulse Ox 96 06/24/24 14:17 Oxygen Delivery Method Room Air 06/24/24 14:17 Const General: comfortable and alert HEENT Head: Yes normal to inspection Neck Neck: Yes supple Chest Chest palpation & inspection: normal inspection of the chest Resp Effort & Inspection: no cough Auscultation: no crackles, rhonchi, wheezes, breath sounds present and diminished lung sounds Cardio Rate: regular rate Rhythm: regular rhythm Heart sounds: S1 normal heart sound present, S2 normal heart sound present and Murmur heart sound present GI Inspection: Yes distended Palpation (GI): nontender and no guarding Auscultation: normal bowel sounds Skin General skin exam: ecchymosis Extrem General: No clubbing, No cyanosis and No edema Assessment & Plan Assessment & Plan (1) COPD (chronic obstructive pulmonary disease): Code(s): J44.9 - Chronic obstructive pulmonary disease, unspecified Category: Medical Qualifiers: COPD type: COPD with acute lower respiratory infection Qualified Code(s): J44.0 - Chronic obstructive pulmonary disease with (acute) lower respiratory infection (2) Pseudomonal pneumonia: Code(s): J15.1 - Pneumonia due to Pseudomonas Category: Medical Qualifiers: Laterality: unspecified laterality Lung location: unspecified part of lung Qualified Code(s): J15.1 - Pneumonia due to Pseudomonas (3) Pulmonary nodules: Code(s): R91.8 - Other nonspecific abnormal finding of lung field Category: Medical (4) Dyspnea: Code(s): R06.00 - Dyspnea, unspecified Category: Medical Qualifiers: Dyspnea type: shortness of breath Qualified Code(s): R06.02 - Shortness of breath (5) Bronchiectasis: Code(s): J47.9 - Bronchiectasis, uncomplicated Category: Medical Qualifiers: Bronchiectasis type: with acute lower respiratory infection Qualified Code(s): J47.0 - Bronchiectasis with acute lower respiratory infection (6) Congestive heart failure: Code(s): I50.9 - Heart failure, unspecified Category: Medical Qualifiers: Heart failure type: unspecified Heart failure chronicity: chronic Qualified Code(s): I50.9 - Heart failure, unspecified (7) Abdominal pain: Code(s): R10.9 - Unspecified abdominal pain Category: Medical Qualifiers: Abdominal location: generalized Qualified Code(s): R10.84 - Generalized abdominal pain Plan hold inhaled Shy 28 days on, 28 days off start Levaquin start Prednisone sent Lasix to keep and use PRN if noted to have increase fluid weight: +2lbs/24hrs 3lb/48hrs Bloodwork CXR/Abd xray continue Anoro Xopenex BID hypertonic saline 3% for CPT Continue acapella valve Oxygen 2L with activity and with sleep F/U 2-3 weeks Orders: Orders Venous Blood Gas Today I50.9 - Heart failure, unspecified, J44.0 - Chronic obstructive pulmonary disease with (acute) lower respiratory infection, J47.0 - Bronchiectasis with acute lower respiratory infection Basic Metabolic Panel Today I50.9 - Heart failure, unspecified, J44.0 - Chronic obstructive pulmonary disease with (acute) lower respiratory infection, J47.0 - Bronchiectasis with acute lower respiratory infection Erythrocyte Sedimentation Rate Today I50.9 - Heart failure, unspecified, J44.0 - Chronic obstructive pulmonary disease with (acute) lower respiratory infection, J47.0 - Bronchiectasis with acute lower respiratory infection Liver Panel Today I50.9 - Heart failure, unspecified, J44.0 - Chronic obstructive pulmonary disease with (acute) lower respiratory infection, J47.0 - Bronchiectasis with acute lower respiratory infection Immunoglobulins,IgG IgA IgM Today I50.9 - Heart failure, unspecified, J44.0 - Chronic obstructive pulmonary disease with (acute) lower respiratory infection, J47.0 - Bronchiectasis with acute lower respiratory infection XR chest 2V Today J15.1 - Pneumonia due to Pseudomonas Complete Blood Count Auto Diff Today I50.9 - Heart failure, unspecified, J44.0 - Chronic obstructive pulmonary disease with (acute) lower respiratory infection, J47.0 - Bronchiectasis with acute lower respiratory infection B Type Natriuretic Peptide Today I50.9 - Heart failure, unspecified, J44.0 - Chronic obstructive pulmonary disease with (acute) lower respiratory infection, J47.0 - Bronchiectasis with acute lower respiratory infection Immunoglobulin E Today I50.9 - Heart failure, unspecified, J44.0 - Chronic obstructive pulmonary disease with (acute) lower respiratory infection, J47.0 - Bronchiectasis with acute lower respiratory infection Medications: New prednisone PO daily; Take 2 tabs daily x 10 days, then 1 tab daily x 10 days 30 tabs 2RF 20 days furosemide (Lasix) 20 mg PO DAILY PRN 14 tabs 3RF weight gain 30 days Coding Level of Care Code Est Pt Level 5 (51503) Diagnoses Chronic obstructive pulmonary disease with acute lower respiratory infection J44.0 COPD type: COPD with acute lower respiratory infection Pneumonia due to Pseudomonas species, unspecified laterality, unspecified part of lung J15.1 Laterality: unspecified laterality Lung location: unspecified part of lung Pulmonary nodules R91.8 Shortness of breath R06.02 Dyspnea type: shortness of breath Bronchiectasis with acute lower respiratory infection J47.0 Bronchiectasis type: with acute lower respiratory infection Chronic congestive heart failure, unspecified heart failure type I50.9 Heart failure type: unspecified Heart failure chronicity: chronic Generalized abdominal pain R10.84 Abdominal location: generalized Time Spent (min) 60
[2024-06-24 14:17] VITALS: BP 140/92; PULSE 92; O2SAT 96
--- OUTSIDE RECORDS SUMMARY | 2024-06-24 17:58 | XMS_ITS | Data Portability ---
Author Organization [employer] [facility] - [facility] Address [address] [place] [id number] Care Team Providers Care Geropsychologist Name Role Phone [facility] Referring Provider [phone] Assessment Encounter Date Assessment Date Assessment LastModified [...] Assessment and Plan as documented by the Steak Sauce Maker. Patient /daughter given the opportunity to ask questions. Advised if develops CP/severe SOB/turning blue/uncontrolle d n/v/d or black/bloody emesis or stool/ AMS/ syncope/ hi fever to call 911- daughter verbalized understanding of instructions to the medic [email or web address] Not available 12/12/2022 13:03:17 Plan of Treatment Reminders Order Date Submit Date Provider Last Modified By Organization Details Last Modified Time Details Appointments None recorded. Lab culture, urine 2022 023 [email or web address] [facility], [address], [place], [address], 07:20:43 urinalysis, dipstick 2022 023 [email or web address] 0 [facility], [address] [place] [address], [address], 13:03:23 glucose, fingerstick , blood 2022 023 [email or web address] 0 [facility], [address] [place] [address], [place], [address], 13:03:23 Referral None recorded. Procedures None recorded. Surgeries None recorded. Imaging None recorded. Medication Orders cefpodoxime 200 mg tablet 2022 023 [id number], [address], [place], [phone], 12:57:14 cefpodoxime 200 mg tablet 2022 023 [email or web address] 0 Not available 12:57:07 Patient TargetsNo targets recorded. Patient InstructionsNo instructions recorded. Reason for Referral None Reported. Results Created Date Observation Date Name Description Value Unit Range Abnormal Flag Note LastModifiedBy Organization Detail LastModifiedTime 12/13/1912/12/2022 URINE CULTU RE specimen description URINE Not Available [facility] [address] [place], [address], 12/14/2022 07:20:43 12/13/19 23 12/12/2022 URINE CULTU RE special requests NONE Not Available [facility] [address] [place], [address], 12/14/2022 07:20:43 12/13/19 23 12/14/2022 URINE CULTU RE culture Mixed bacter ial rowdy, indica tive of urogen ital contam inatio n. Not Available [facility] [address] [place], [address], 12/14/2022 07:20:43 12/13/19 23 12/14/2022 URINE CULTU RE report status FINAL 2022 Not Available [facility] [address] [place], [address], 12/14/2022 07:20:43 12/13/19 23 12/12/2022 urina lysis , dipst ick Leukocytes 500 Not Available [facility] [address] [place] [address], [address], 12/12/2022 12:57:33 12/13/19 23 12/12/2022 urina lysis , dipst ick Nitrite positi ve Not Available [facility] [address] [place] [address], [address], 12/12/2022 12:57:33 12/13/19 23 12/12/2022 urina lysis , dipst ick Urobilinogen 0.2 Not Available [facility] [address] [place] [address], [address], 12/12/2022 12:57:33 12/13/19 23 12/12/2022 urina lysis , dipst ick Protein 30 Not Available Main - [facility] [address], [address], 12/12/2022 12:57:33 12/13/19 23 12/12/2022 urina lysis , dipst ick pH 7.5 Not Available [facility] - [facility] [address], [address], 12/12/2022 12:57:33 12/13/19 23 12/12/2022 urina lysis , dipst ick Blood + Not Available Main - [facility] [address], [address], 12/12/2022 12:57:33 12/13/19 23 12/12/2022 urina lysis , dipst ick Specific Crockett 1.005 Not Available [facility] [address] [place] [address], [address], 12/12/2022 12:57:33 12/13/19 23 12/12/2022 urina lysis , dipst ick Ketone neg Not Available Main - [facility] [address], [address], 12/12/2022 12:57:33 12/13/19 23 12/12/2022 urina lysis , dipst ick Bilirubin neg Not Available [facility] - [facility] nsted [address] [place] [address], [address], 12/12/2022 12:57:33 12/13/19 23 12/12/2022 urina lysis , dipst ick Glucose neg Not Available Main - [facility] sandra [address] [place] [address], [address], 12/12/2022 12:57:33 12/13/19 23 12/12/2022 urina lysis , dipst ick Appearance cloudy Not Available [facility] [address] [place] [address], [address], 12/12/2022 12:57:33 12/13/19 23 12/12/2022 urina lysis , dipst ick Color yellow Not Available Main - [facility] [address], [address], 12/12/2022 12:57:33 12/13/19 23 12/12/2022 gluco se, finge rstic k, blood Blood Glucose: mg/dl 190 Not Available [facility] [address] [place] [address], [address], 12/12/2022 12:57:38 Result Notes None recorded. Medical Equipment None Reported. Allergies Allergen ID Allergen Name Allergen Category Reaction Reaction Severity Criticality Documentation Date Start Date Code Code System Note Provider Name and Address Organization Details Recorded Time 2694 cetirizin e medicatio n Not available Not available Not available 12/12/2022 35653 RxNorm Alexandria Shea MD [address] [place] [address],[address], [place], [address], [employer], [facility] 12:51:29 2696 spironola ctone medicatio n Not available Not available Not available 12/12/2022 9997 RxNorm Alexandria Shea MD [address] [place] [address],[address], [place], [address], [employer] 12:51:49 2697 carvedilo l medicatio n Not available Not available Not available 12/12/2022 67663 RxNorm Alexandria Shea MD [address] [facility],[address], [place], [phone], [employer] 12:51:56 Medications Name Sig Start Date Stop [...] [degF] 92 /min 99 % 99 % 78554.5 52 g 14 /min 138 mm[Hg] 67 mm[Hg] 138 mm[Hg] 67 mm[Hg] Not Available [email or web address] [facility] [employer] 3 13:17:06 Date Recorded Body weight Provider Name an d Address Organization Details Last Updated DateTime 12/12/2022 39496.6 g Jose Martin Shelton [address] [place] [address],[address], [place], [address], [place] [facility] [employer] [facility] 12/12/2022 13:03:46 Date Recorded Body temperature Heart rate Oxygen saturation Oxygen saturation in Arterial blood by Pulse oximetry Respiratory rate Systolic blood pressure Diastolic blood pressure Provider Name and Address Organization Details Last Updated DateTime 2 97.8 [degF] 97 /min 97 % 97 % 18 /min 114 mm[Hg] 76 mm[Hg] Not Available [email or web address] [facility] [employer] 2 13:50:19 Social History None recorded. Functional Status None recorded. Mental Status None recorded. Family History Nothing Reported. Medical History No medical history recorded. Gynecological HistoryNo gynecological history recorded. Obstetrics History GPAL:G 0 P 0 0 0 0 Past Encounters Encounter ID Performer Location Encounter Start Date Encounter Closed Date Diagnosis/Indication Diagnosis SNOMED-CT Code Diagnosis ICD10 Code Diagnosis Note [id number] Jacobo Disla MD [facility] [address] [place] [phone] 03/08/2022 13:34:54 03/11/2022 16:53:14 Wound of skin 649909164 T14.8XXA [id number] Alexandria Shea MD [facility] [address] [place] [phone] 12/12/2022 12:48:46 12/13/2022 10:47:07 Urinary symptoms 799400306 R39.9 recurrent uti. Pat has tolerated cefpodoxim e well in the past per daughter- advised doxycyclin e likely chosen at last d/c due to concomitan t pneumonia- would like to avoid quinolones in elderly patient on eliquis if possible-a dvised will check culture and if sensitivit ies indicate another abx required will call in different RX when results return in a few days Health Concerns Section Related Observation LastModified by Organization Detai ls LastModified Time None Recorded Concern Status LastModified by Organization Details LastModified Time None Recorded Advance Directives Directive None Recorded Payers Encounter Date Sequence Insurance Name Policy Number Policy Salcido Covered Member ID Salcido Member ID Guarantor Name 03/08/[address] [facility] [place] [place] - DOS PRIOR TO 2022 - DUAL ELIGIBLE (MEDICARE REPLACEMENT/ADV ANTAGE - HMO) Jenifer Harperpek [id number] Jenifer Harperpek 12/12/[address] [facility] [place] [place] - DOS ON OR AFTER 2022 - DUAL ELIGIBLE - DETENTION OPTIONS AND ONE CARE (MEDICARE REPLACEMENT/ADV ANTAGE - HMO) Jenifer Sypek [id number] Jenifer Harperperoberta Notes Date Note Type Note Provider Name [...] Comments: Members dtr calling to place an [facility] referral. Mom with paper thin skin, and on blood thinners. She was getting up to go to the bathroom, she turned her walker and hit her left ankle. Site is about the size of quarter, area has been bleeding off/on since 3am. Daughter has put gauze, triple abx ointment and wrap. Would like area assessed. Jacobo Disla MD [address] [facility],[address], [place], [address], [employer] 03/08/2022 13:59:24 12/12/2022 text/html [facility] Nursing Assessment: [...] .................. .................. .................. .................. .................. .................. ...... Steak Sauce Maker Note From Gavin Snow: Pt's daughter suspects [...] stable. POC BGL 190mg/gl and pt afebrile. C contacted who prescribed 200mg Cefpodoxime and pt/daughter were educated on S/S that would indicate 911/ED visit. Pt/daughter were instructed to follow course of ABX and follow up with PCP .................. .................. .................. .................. .................. .................. .................. ............... Disposition: Fulfilled Alexandria Shea MD [address] [facility],[address], [place], [address], [employer] [facility] [employer] 12/12/2022 13:35:09 OBGyn Episode No OBEpisode recorded.
== END 2024-06-24 14:40 | disposition home or self-care (01) ==
PROVIDERS: PCP Internal Medicine; Visit Provider Hospitalist
DX: J44.0 Chronic obstructive pulmonary disease with (acute) lower respiratory infection (principal); J15.1 Pneumonia due to Pseudomonas; R91.8 Other nonspecific abnormal finding of lung field; I50.9 Heart failure, unspecified; R10.84 Generalized abdominal pain
CPT/HCPCS: 99215

== ENCOUNTER 2024-06-24 14:15 | Outpatient (REF) | payer OTHER, SELFPAY ==
--- NOTE | ~2024-06-24 | XR_ITS ---
CLINICAL HISTORY: J15.1 - Pneumonia due to Pseudomonas 2 view chest x-ray Comparison: None Findings: No dense consolidation or effusion. There is linear density in the left lung base likely representing scarring or atelectasis. Normal size heart. No acute fracture. IMPRESSION: 1. No dense consolidation. Likely linear atelectasis versus scarring in the left lower lobe. This document has been electronically signed by: Magdalena See MD on 06/26/2024 06:47:56
--- NOTE | ~2024-06-24 | XR_ITS ---
CLINICAL HISTORY: R10.9 - Unspecified abdominal pain 2 view abdomen Comparison: 06/25/2024 Findings: Mild scarring within the lung bases. There is prior Cardiothoracic surgery sternal wires there are surgical clips within the right upper quadrant from prior cholecystectomy. There is a right hip prosthesis. The bowel gas pattern is unremarkable. There is mild to moderate colonic fecal load. There are likely sigmoid diverticula. There are stable degenerative changes of the lumbar spine. No pneumoperitoneum or pneumatosis. No abnormal calcifications. No significant change moderate to severe compression fracture T12, likely mild compression fracture T11, severe compression fracture T9. Oswz-gl-fauvtzqd compression fracture of T8. There is osteopenia. IMPRESSION: No evidence for obstruction [id number] colonic fecal load, likely sigmoid diverticular No significant change multilevel lower thoracic spine compression fractures, age indeterminate Chronic and incidental findings as above This document has been electronically signed by: Sujit Cisneros MD on 06/26/2024 04:54:04
[2024-06-24 15:30] LABS: MANUAL DIFF FLAG NO
[2024-06-24 15:35] LABS: VBG Base Excess 8.8 mmol/L; VBG HCO3 31 mmol/L (22-26); VBG pCO2 37 mmHg; VBG pH 7.53 (7.32-7.43); VBG pO2 55 mmHg
[2024-06-24 15:36] LABS: Venous Blood Gas Refer to POC result
[2024-06-24 15:47] LABS: Basophils Absolute Auto 0.1 X10*3/uL (0.0-0.2); Basophils Percent Auto 0.5 % (0-2); Eosinophils Absolute Auto 0.1 X10*3/uL (0.0-0.4); Eosinophils Percent Auto 0.3 % (0-4); Hematocrit 39.1 % (37.0-47.0); Hemoglobin 13.5 g/dl (12.0-16.0); Imm Gran Abs Auto 0.76 X10*3/uL (0.00-0.03); Imm Gran Pct Auto 4.2 % (0.0-0.4); Lymphocytes Absolute Auto 1.5 X10*3/uL (1.2-4.9); Lymphocytes Percent Auto 8.1 % (20-40); Mean Corpuscular HGB Conc 34.5 g/dl (31.0-35.0); Mean Corpuscular Hemoglobin 32.1 pg (27.0-33.0); Mean Corpuscular Volume 93.1 fL (80.0-98.0); Mean Platelet Volume 11.2 fL (9.4-12.3); Monocytes Absolute Auto 0.5 X10*3/uL (0.1-1.2); Monocytes Percent Auto 2.9 % (2-11); NRBC Pct Auto 0.1 /100WBC (0.0-0.2); Neutrophils Absolute Auto 15.2 x10*3/uL (2.0-8.3); Platelet Count 178 X10*3/uL (160-400); Red Cell Distribution Width 15.2 % (11.0-16.0); White Blood Count 18.1 X10*3/uL (4.8-10.8)
[2024-06-24 16:23] LABS: B Type Natriuretic Peptide 91 pg/mL (<100)
[2024-06-24 17:02] LABS: Erythrocyte Sedimentation Rate 20 MM/HR (0-20)
[2024-06-24 18:20] LABS: Alanine Aminotransferase 86 U/L (0-31); Albumin Level 3.7 g/dL (3.5-5.0); Alkaline Phosphatase 89 U/L (39-117); Anion Gap 15 (12-20); Aspartate Amino Transferase 62 U/L (5-31); Bilirubin Direct 0.7 mg/dL (0.0-0.5); Bilirubin Total 2.2 mg/dL (0.0-1.0); Blood Urea Nitrogen 38 mg/dL (9-16); Carbon Dioxide 29 mmol/L (22-29); Chloride 94 mmol/L (96-108); Estimated Glomerular Filt Rate 29; Potassium 4.8 mmol/L (3.3-5.1); Sodium 133 mmol/L (135-145); Total Protein 6.5 g/dL (6.5-8.0)
[2024-06-24 18:53] LABS: Glucose Random 476 mg/dL (60-115)
[2024-06-25 16:18] LABS: IgA 266 mg/dL (70-320); IgG 807 mg/dL (600-1540); IgM 140 mg/dL (50-300)
[2024-06-26 18:48] LABS: Immunoglobulin E 466 kU/L (<OR=114)
== END 2024-06-24 14:16 | disposition home or self-care (01) ==
LOC: HO.XRAY 14:15
PROVIDERS: PCP Internal Medicine; Visit Provider Hospitalist
DX: J44.0 Chronic obstructive pulmonary disease with (acute) lower respiratory infection (principal); J47.0 Bronchiectasis with acute lower respiratory infection; I50.9 Heart failure, unspecified; J15.1 Pneumonia due to Pseudomonas; R91.8 Other nonspecific abnormal finding of lung field; R06.00 Dyspnea, unspecified; R06.02 Shortness of breath; R10.84 Generalized abdominal pain; R79.9 Abnormal finding of blood chemistry, unspecified
CPT/HCPCS: 36415; 71046; 74019; 80048; 80076; 82784; 82785; 82803; 83880; 85025; 85652; 99212

== ENCOUNTER → 2024-06-24 15:27 | Outpatient (BNV) | payer OTHER, SELFPAY | PROVIDERS: PCP Internal Medicine; Visit Provider Radiology Diagnostic Radiology | DX: R10.9 Unspecified abdominal pain (principal); J15.1 Pneumonia due to Pseudomonas | CPT/HCPCS: 71046; 74019 ==

== ENCOUNTER 2024-06-25 12:29 | Inpatient (IN) | payer OTHER, SELFPAY ==
[2024-06-25] VITALS (22 sets, daily range): BP systolic 123–157; BP diastolic 54–92; PULSE 22–92; RESP 11–90; TEMP 36.1–36.6; O2SAT 92–99; BMI 50.5
--- NOTE | ~2024-06-25 | XR_ITS ---
CLINICAL HISTORY: constipation Abdomen X-ray, 1 View COMPARISON: CR - XR ABDOMEN MIN 2V - 06/24/24 15:44 EST FINDINGS: Nonobstructive bowel gas pattern. No visible free air. No acute fracture. Lumbar dextroscoliosis. Degenerative changes in the spine. Status post right hip arthroplasty. Surgical clips in the right upper abdominal quadrant. IMPRESSION: No acute findings. Nonemergent/incidental findings above. This document has been electronically signed by: Zach Dos Santos MD on 06/25/2024 18:37:58
--- NOTE | ~2024-06-25 | XR_ITS ---
CLINICAL HISTORY: hypoxia 1 view chest x-ray Comparison: CR/SR - XR CHEST 1V - 06/27/24 10:47 EST Findings: The lungs exhibit diffuse interstitial prominence. Cardiac and mediastinal contours are prominent but stable. No acute fracture. IMPRESSION: Diffuse interstitial prominence, similar to prior. Vascular congestion/mild edema possible. This document has been electronically signed by: Ludwig Mason MD on 06/30/2024 09:24:21
--- NOTE | ~2024-06-25 | US_ITS ---
EXAMINATION: US RETROPERITONEAL LIMITED (RENAL ONLY) CLINICAL INFORMATION: Acute kidney injury. COMPARISON: No prior renal ultrasound. Correlation made with CT abdomen and pelvis 03/15/2023, and 01/13/2023. TECHNIQUE: Real-time imaging of the kidneys. (As per technologist note, very Limited exam due to extensive overlying bowel gas). FINDINGS: RIGHT KIDNEY: 11.3 x 5.5 x 4.0 cm (SAG x AP x TRV). The kidney is normal in size, contour, and echogenicity. Renal cortical thickness is normal. No calculi or focal parenchymal lesions. No hydronephrosis. LEFT KIDNEY: 9.2 x 5.0 x 3.5 cm (SAG x AP x TRV). The kidney is normal in size, contour, and echogenicity. Renal cortical thickness is normal. No calculi or focal parenchymal lesions. No hydronephrosis. Incidental note made of renal artery calcific atherosclerosis. US/US renal BI IMPRESSION: 1. Limited examination due to overlying bowel gas. 2. Within these confines, normal kidneys. 3. Renal artery calcific atherosclerosis. Electronically signed by: Dawood Elmore MD 06/26/2024 11:20 AM [facility]
--- NOTE | ~2024-06-25 | XR_ITS ---
EXAMINATION: XR CHEST CLINICAL INFORMATION: s/p Intubation, NGT COMPARISON: X-ray dated June 25, 2024. TECHNIQUE: Frontal view of the chest was obtained. FINDINGS: Endotracheal tube is 2.5 cm above ras. NG tube is at the gastroesophageal junction region just below the left hemidiaphragm. There is pulmonary edema and bilateral small to moderate volume left-sided pleural effusions more conspicuous on the left side. Cardiomediastinal silhouette appears unchanged. Multilevel thoracic spondylosis. Osteoarthrosis, right glenohumeral joint. No gross pneumothorax. Status post likely CABG procedure. XR/XR chest 1V IMPRESSION: Status post intubation, 2.5 cm above ras. Status post NG tube placement at the gastroesophageal junction level. Electronically signed by: Chris Rothman MD 06/27/2024 11:08 AM [facility]
--- NOTE | ~2024-06-25 | CT_ITS ---
EXAMINATION: CT CHEST WITHOUT CONTRAST CLINICAL INFORMATION: Hypoxia. COMPARISON: Chest x-ray 06/27/2024. CT chest 06/26/2024. TECHNIQUE: Multidetector volumetric CT imaging of the chest was done. Axial MIP volume rendering provided. Sagittal and coronal reformatted images were obtained. This CT examination was performed using dose optimization techniques as appropriate, variously including the following: *Automated exposure control *Adjustment of mA and/or kV according to patient size (this includes techniques or standardized protocols for targeted exams where dose is matched to indication/reason for exam; i.e. 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 LUNGS: There is patchy opacity with air bronchograms seen in the dependent segments of both upper lobes right greater than left and both dependent segments of lower lobes suggestive of pneumonic infiltrates. MEDIASTINUM: Heart size is enlarged without pericardial effusion. Central trachea appears widely patent with endotracheal tube tip at the ras the caliber of both bronchi are small but patent. Thyroid lobes are symmetric and normal. There is an enteric tube is tip at the GE junction and needs to be advanced at least by 5 to 10 cm. Small shotty lymph nodes are seen in the pretracheal space with a short axis measurement of 7 mm.. CORONARY ARTERY CALCIFICATION: Mild to moderate coronary artery calcification seen. PLEURA: There is no pleural effusion. No pleural mass or thickening. AXILLA: No lymphadenopathy. UPPER ABDOMEN: Unremarkable. OSSEOUS STRUCTURES: There are median sternotomy sutures from previous intervention. Moderate spondylosis seen in the dorsal spine and there are compression deformities of T12 and T9 vertebra, stable since 01/13/2023. Mild compression deformity T8 vertebra with loss of 20% height is stable as well. No new vertebral fractures visualized CT/CT chest wo IV con IMPRESSION: Bilateral dependent upper and lower lobe infiltrates with bilateral small pleural effusions right greater than left. Tip of endotracheal tube at the ras and needs to be withdrawn and is new 2 cm. Tip of enteric tube at GE junction and needs to be advanced by 5 to 10 cm. Fleischner guidelines were followed. Electronically signed by: Maxwell Carrington MD 06/27/2024 05:00 PM [facility]
--- NOTE | ~2024-06-25 | CT_ITS ---
EXAMINATION: CT CHEST WITHOUT CONTRAST CLINICAL INFORMATION: Pneumonia. COMPARISON: CT chest dated January 13, 2023. TECHNIQUE: Multidetector volumetric CT imaging of the chest was done. Axial MIP volume rendering provided. Sagittal and coronal reformatted images were obtained. This CT examination was performed using dose optimization techniques as appropriate, variously including the following: *Automated exposure control *Adjustment of mA and/or kV according to patient size (this includes techniques or standardized protocols for targeted exams where dose is matched to indication/reason for exam; i.e. extremities or head) *Use of iterative reconstruction technique DLP: 352 mGy centimeter. FINDINGS: There are multifocal, confluent, peribronchial thickening in the/attenuation 6 extending from the inferior aspect of the pulmonary hilum and to the periphery of the lower lung lobes lingula and right middle lobe. Layering secretions within the right side of the trachea into the right mainstem bronchus and of the subsegmental bronchi of the right lower and right middle lobe. No pleural effusion. No pneumothorax. No bronchiectasis. No honeycombing. No lymphadenopathy, mediastinum or perihilar. Calcified plaques throughout the thoracic aorta its main branches and the coronary arteries. No aneurysm of the thoracic aorta. Sternal wires likely related to CABG procedure. No pericardial effusion. Superior endplate compression deformity resulting in 30% volume loss at T4. Sclerotic compression deformity representing 80% volume loss at T9. Sclerotic compression deformity representing 60% volume loss at T12 with a 3 mm retropulsion upon central canal. Multilevel lower cervical spondylosis. Osteopenia versus osteoporosis. There is callus formation in the posterior lateral aspect of the ribs right lower hemithorax more conspicuous at the right 11th rib. Degenerative changes in the right glenohumeral joint. Calcified plaques in the splenic arteries and the mesenteric arteries. 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 Fat-containing epigastric hernia. . CT/CT chest wo IV con IMPRESSION: Concerning multifocal pneumonia with possibly aspiration component. Subacute compression fracture, T4 vertebra. Old compression fracture deformities, T9 T12 and likely T8 vertebral bodies. Coronary artery disease and atherosclerosis disease. Fat-containing epigastric hernia. Fleischner guidelines were followed. Electronically signed by: Chris Rothman MD 06/26/2024 09:49 AM EST
--- NOTE | ~2024-06-25 | FL_ITS ---
EXAMINATION: Modified Barium Swallow CLINICAL INFORMATION: Dysphagia COMPARISON: None TECHNIQUE: Modified barium swallow was performed under lateral fluoroscopy with patient in standing position. Barium mixed with solids and liquids of different consistencies was administered by the speech pathologist. Examination was recorded in the fluoroscopy suite. FINDINGS: Trace laryngeal penetration was seen with multiple consistencies of liquid barium. No subglottic aspiration was observed. FLUOROSCOPY TIME: 2 minutes 32 seconds Number of Spot Images: N/A DOSE AREA PRODUCT: 1150 uGy-m2 (microgray-meter squared) FL/FL Modified Barium Swallow IMPRESSION: 1. Trace laryngeal penetration with multiple consistencies of liquid barium. No subglottic aspiration was observed. Refer to the speech therapy report for further clarification This procedure was performed by Jacobo Del Angel PA-C, and supervised by Dr. Elmore Electronically signed by: Dawood Elmore MD 07/03/2024 03:31 PM [facility]
--- NOTE | ~2024-06-25 | XR_ITS ---
EXAMINATION: XR CHEST 1 VIEW HISTORY: cough COMPARISON: Comparison is made with the prior examination dated 06/24/2024. FINDINGS: A single AP portable view of the chest performed at 3:02 PM is submitted. Again seen is bibasilar subsegmental atelectasis versus scarring. No new focal airspace opacity is identified. There is no pleural effusion, pneumothorax, or pulmonary vascular congestion. The heart is normal in size. The patient is status post median sternotomy and CABG. There is degenerative disc disease of the spine. XR/XR chest 1V IMPRESSION: Bibasilar subsegmental atelectasis versus scarring. Electronically signed by: Sujit Snyder MD 06/25/2024 03:26 PM EST
--- NOTE | ~2024-06-25 | CT_ITS ---
EXAMINATION: CT ABDOMEN AND PELVIS WITH CONTRAST CLINICAL INFORMATION: Abdominal distention. Respiratory failure. COMPARISON: CT abdomen pelvis 03/25/2023 TECHNIQUE: Multidetector volumetric images were obtained from the superior aspect of the liver through the pubic symphysis following administration 85 mL of Omnipaque 350 intravenous contrast. Sagittal and coronal reformatted images were obtained on the technologist's workstation. Oral contrast: No This CT examination was performed using dose optimization techniques as appropriate, variously including the following: *Automated exposure control *Adjustment of mA and/or kV according to patient size (this includes techniques or standardized protocols for targeted exams where dose is matched to indication/reason for exam; i.e. extremities or head) *Use of iterative reconstruction technique DLP: 890 FINDINGS: LUNG BASES: There are bilateral small pleural effusions with bilateral lower lobe atelectasis/infiltrate. The heart size enlarged. LIVER, GALLBLADDER, AND BILIARY TREE: The liver is normal in size, mildly enlarged in shape with normal attenuation. No focal hepatic lesion or biliary ductal dilatation is present. The gallbladder has been surgically removed. PANCREAS: The pancreas small atrophied with 1.4 cm nonenhancing lesion in the tail of pancreas measuring -4 Hounsfield units. It is unchanged to previous exam 03/25/2023. Rest of the pancreas is unremarkable. SPLEEN: Unremarkable. ADRENAL GLANDS: Unremarkable. KIDNEYS AND URETERS: The kidneys are normal in size, shape, and attenuation. No hydronephrosis, hydroureter, or calculi seen. No perinephric stranding. BLADDER: The bladder is empty with this simple catheter within. GASTROINTESTINAL TRACT: There is scattered stool, diverticuli and gas seen in colon without distention . The small bowel loops are normal caliber. There is a enteric tube with its tip at GE junction. ABDOMINAL WALL: There is a right upper quadrant abdominal wall herns containing intraperitoneal fat on axial slice 22/3. Prominent bilateral inguinal canals containing fat is noted. LYMPH NODES: Normal. VASCULAR: Unremarkable. PELVIC VISCERA: Unremarkable. OSSEOUS STRUCTURES: There is mild degenerative disc changes throughout lumbar spine with superior endplate deformities of L4 and L5 vertebra. There is old compression fracture T12 vertebra. 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 CT/CT abdomen pelvis w IV con IMPRESSION: Enteric tube tip is at the GE junction and needs to be advanced by 5 to 10 cm. Mild constipation. Colonic diverticulosis without diverticulitis. Small right upper quadrant abdominal wall hernias. The gallbladder is out. Bilateral small pleural effusions with atelectasis/infiltrates. Mild cardiomegaly. Fleischner guidelines were followed. Electronically signed by: Maxwell Carrington MD 06/27/2024 04:49 PM EST
[2024-06-25 14:20] LABS: MANUAL DIFF FLAG NO
[2024-06-25 14:21] LABS: Basophils Absolute Auto 0.1 X10*3/uL (0.0-0.2); Basophils Percent Auto 0.3 % (0-2); Eosinophils Absolute Auto 0.2 X10*3/uL (0.0-0.4); Eosinophils Percent Auto 0.8 % (0-4); Hematocrit 38.5 % (37.0-47.0); Hemoglobin 13.7 g/dl (12.0-16.0); Imm Gran Abs Auto 0.64 X10*3/uL (0.00-0.03); Imm Gran Pct Auto 3.3 % (0.0-0.4); Lymphocytes Absolute Auto 1.4 X10*3/uL (1.2-4.9); Lymphocytes Percent Auto 7.4 % (20-40); Mean Corpuscular HGB Conc 35.6 g/dl (31.0-35.0); Mean Corpuscular Hemoglobin 32.7 pg (27.0-33.0); Mean Corpuscular Volume 91.9 fL (80.0-98.0); Mean Platelet Volume 11.1 fL (9.4-12.3); Monocytes Absolute Auto 0.8 X10*3/uL (0.1-1.2); Monocytes Percent Auto 4.4 % (2-11); Neutrophils Absolute Auto 16.1 x10*3/uL (2.0-8.3); Neutrophils Percent Auto 83.8 % (45-73); Platelet Count 161 X10*3/uL (160-400); Red Blood Count 4.19 X10*6/uL (4.20-5.50); Red Cell Distribution Width 14.9 % (11.0-16.0); White Blood Count 19.2 X10*3/uL (4.8-10.8)
[2024-06-25 14:40] LABS: Alanine Aminotransferase 71 U/L (0-31); Albumin Level 3.7 g/dL (3.5-5.0); Anion Gap 17 (12-20); Aspartate Amino Transferase 38 U/L (5-31); Bilirubin Direct 0.5 mg/dL (0.0-0.5); Bilirubin Total 1.8 mg/dL (0.0-1.0); Blood Urea Nitrogen 35 mg/dL (9-16); Calcium 9.3 mg/dL (8.4-10.2); Carbon Dioxide 28 mmol/L (22-29); Chloride 96 mmol/L (96-108); Creatinine Clr Calc Pharmacy 31.5; Estimated Glomerular Filt Rate 34; Glucose Random 272 mg/dL (60-115); Magnesium 2.4 mg/dL (1.6-2.6); Sodium 137 mmol/L (135-145); Total Protein 6.9 g/dL (6.5-8.0)
--- NOTE | 2024-06-25 14:40 | ED_ITS ---
HPI - Recheck/Abnormal Lab/Rx General Chief Complaint: Recheck/Abnormal Lab/Rx Stated Complaint: SENT BY PCP FOR CRITICAL LABS & CONCERN FOR RF Time Seen by Provider: 06/25/24 13:04 Source: patient and family Mode of arrival: ambulatory Limitations: no limitations History of Present Illness ED Provider: Eli Martinez PA-C HPI narrative: 82 yo female with PMH of acute on chronic resp failure PRN o2 use, metabolic encephalopathy, pneumonia, CHF 35-40%, CANDIDO, E. Coli, UTI, bronchiectasis, PAF not on anticoagulation, CAD, dementia, HLD, who presents emergency department for worsening congestion and cough x1 month. Patient does report that she has had increased sputum production. She was seen by her virtual office assistant for a sick visit, where she had basic labs performed which revealed elevated white blood cell count, worsening renal function, and elevated transaminitis. Patient reports that she is feeling well, does not have any complaints. Daughter reports that she did have Pseudomonas pneumonia a year ago, as well as [address] Aldana did sent over Levaquin however she did not start this medication. She has been using her inhalers at home. No chest pain, wheezing, abdominal pain, nausea, vomiting or diarrhea. Dr. Aldana also reported abdominal distention, patient does not feel this way, denies any abdominal pain, nausea, vomiting or diarrhea. Denies any urinary symptoms. No other complaints or concerns at this time. Symptoms since prior visit: no new symptoms Context: called for abnormal lab result Associated symptoms: none Related Data Home Medications ?Medication ?Instructions ?Recorded ?Confirmed fluticasone propionate 50 1 spray intranasal BID 03/22/22 06/25/24 mcg/actuation nasal spray,suspension montelukast 10 mg tablet 10 mg PO BEDTIME 03/22/22 06/25/24 nebulizers 03/22/22 11/09/23 albuterol sulfate 90 mcg/actuation 2 puff inhalation Q4-6H PRN 11/02/22 06/25/24 aerosol inhaler (Ventolin HFA) Shortness Of Breath Or Wheezing aspirin 81 mg tablet,delayed 81 mg PO DAILY 11/02/22 06/25/24 release isosorbide mononitrate 30 mg 30 mg PO DAILY 11/02/22 06/25/24 tablet,extended release 24 hr pantoprazole 40 mg tablet,delayed 40 mg PO BID 11/02/22 06/25/24 release acetaminophen 325 mg tablet 650 mg PO Q6H PRN Pain 01/13/23 06/25/24 multivitamin 1 tab PO DAILY 01/13/23 06/25/24 potassium chloride 20 mEq 20 meq PO DAILY 01/13/23 06/25/24 tablet,extended release quetiapine 50 mg tablet 50 mg PO BEDTIME 01/13/23 06/25/24 Lactobacillus acidophilus 500 500,000,000 cell PO DAILY 03/25/23 06/25/24 million cell capsule cyanocobalamin (vitamin B-12) 1,000 mcg PO DAILY 03/25/23 06/25/24 1,000 mcg tablet nystatin 100,000 unit/gram topical 1 appl topical BID PRN Rash 03/25/23 06/25/24 powder ferrous sulfate 325 mg (65 mg 325 mg PO BEDTIME 06/25/24 06/25/24 iron) tablet nystatin 100,000 unit/mL oral 100,000 unit PO BID 06/25/24 06/25/24 suspension Previous Rx's ?Medication ?Instructions ?Recorded inhalational spacing device #1 ea 10/07/22 (Aerochamber MV spacer) atorvastatin 40 mg tablet (Lipitor) 40 mg PO BEDTIME #30 tabs 10/10/22 metoprolol tartrate 25 mg tablet 25 mg PO BID #60 tabs 03/30/23 tobramycin 300 mg/4 mL solution 300 mg (4 mL) inhalation BID 28 02/08/24 for nebulization days #224 mL umeclidinium 62.5 mcg-vilanterol 1 ea inhalation DAILY 30 days #60 02/15/24 25 mcg/actuation powdr for ea inhalation (Anoro Ellipta) levalbuterol HCl 1.25 mg/3 mL 1.25 mg (3 mL) PO QID #1,050 mL 03/26/24 solution for nebulization prednisone 10 mg tablet See Rx Instructions PO DAILY 20 06/24/24 days #30 tabs Allergies Allergy/AdvReac Type Severity Reaction Status Date / Time carvedilol Allergy Shortness Verified 06/25/24 13:02 of Breath sertraline [From Zoloft] Allergy Shortness Verified 06/25/24 13:02 of Breath spironolactone Allergy Shortness Verified 06/25/24 13:02 of Breath adhesive tape AdvReac Severe skin tears Verified 06/25/24 13:02 mirtazapine AdvReac Severe psychotic Verified 06/25/24 13:02 episode Review of Systems 2 Review of Systems: Yes all other systems are reviewed and are negative Constitutional: Constitutional: Reports as per HPI [facility] Past Medical History Medical History (Updated 06/25/24 @ 17:38 by SANDY Harris) Congestive heart failure Mild bibasilar atelectasis Aspiration pneumonia Clostridioides difficile infection Pneumonia Atrial flutter Pyuria Atelectasis of right lung Encephalopathy chronic History of infection with vancomycin resistant Enterococcus (VRE) Heart failure Dyspnea Paroxysmal A-fib COPD (chronic obstructive pulmonary disease) A-fib Acute encephalopathy Anemia Pseudomonas respiratory infection CAD (coronary artery disease) Acute respiratory failure with hypoxia Chronic dyspnea Acute hypokalemia Atrial fibrillation with RVR Anemia GI bleed Pulmonary nodules COPD (chronic obstructive pulmonary disease) Bronchiectasis Pseudomonal pneumonia Surgical History H/O umbilical hernia repair (09/18/22) History of quadruple bypass History of hip replacement History of knee replacement History of cholecystectomy Family History Family History Other No family history of cancer Social History Social History Household Members: Family Housing: House Are you a primary lawn care specialist to a significant other at home: No Do you presently have visiting nurse or other home services: No Alcohol intake: never Patient Tobacco Use Status: Former Tobacco user Tobacco use type: Cigarette Advance Directives: Yes Advance Directives on File: Yes Advance Directives Date on File: 08/24/22 service: No Current occupational status: retired Physical Exam 2 Vital Signs: Vital Signs: Last Vital Signs Temp 97.6 F 06/25/24 18:59 Pulse 92 06/25/24 18:32 Resp 21 H 06/25/24 18:32 BP 135/68 06/25/24 18:32 Pulse Ox 98 06/25/24 18:32 O2 Del Method Room Air 06/25/24 18:32 O2 Flow Rate 98 06/25/24 18:32 BMI result Body Mass Index 50.5 Const: General: cooperative, comfortable and no acute distress O rientation/consciousness: patient oriented x3 Limitations: no limitations HEENT: Head: Yes normal to inspection, Yes normocephalic and Yes atraumatic Ears: hearing grossly normal bilaterally General nose exam: Normal external nose present Face and sinus: Yes normal facial exam Mouth: Normal oral and palatal mucosa present, oropharynx normal and moist mucous membranes Throat: Yes posterior oropharynx normal Eyes: General: appearance normal, both eyes and all related structures E yelids: Yes eyelids normal Conjunctivae: conjunctivae normal Sclerae: s clerae normal Pupils: Equal, round and reactive pupils present EOM: EOMs intact bilaterally Neck: Neck: Yes normal visual inspection, Yes full ROM and Yes no lymphadenopathy Lymphatic: no lymphadenopathy noted Chest: Chest palpation & inspection: normal inspection of the chest Resp: Other: Lungs with coarse crackles, inspiratory and expiratory wheezes noted throughout all lung cody. Normal respiratory effort. Effort & Inspection: normal respiratory effort and able to speak in complete sentences Cardio: Rate: regular rate Rhythm: regular rhythm Heart sounds: S1 normal heart sound present and S2 normal heart sound present GI: Other: Abdomen is soft, normoactive bowel sounds present all 4 quadrants. No rebound or guarding. Inspection: Yes normal to inspection Skin: General skin exam: no rashes or lesions noted Trauma: no lacerations or abrasions Wounds: no wounds Neuro: General: patient oriented x3 and moves all extremities Cranial nerves: Yes Equal, round and reactive pupils present Extrem: Other: Scant pitting edema noted bilaterally. No calf tenderness. Strong DP pulse. General: Yes normal to inspection Right upper extremity: normal to inspection Left upper extremity: normal to inspection Right lower extremity: normal to inspection Left lower extremity: normal to inspection Course Reevaluation(s) Reevaluation #1: Patient lactic acid elevated at 3.1. She already received Zosyn. Will also administer normal saline. Sepsis alert was called however unclear if lactic acidosis is secondary to CANDIDO, prednisone uses, or updrafts. Time: 15:58 Reevaluation #2: Patient remained stable, vital signs within normal limits. She was feeling well. Second troponin flat at 32.3. Waiting on 2nd lactic acid. Time: 17:13 Reevaluation #3: Discussed case with hospitalist, as patient needs to be admitted for CANDIDO, acute bronchitis, lactic acidosis, and elevated troponin. Patient remained stable, repeat KUB ordered due to x-rays. She has no abdominal pain, she is requesting food, we will continue to closely monitor pending potential transfer of care. Time: 17:36 Additional Reevaluation(s): 1858 - lactic acid repeat resulted at 3.8, this is increasing. Patient was given 1 L of IV fluids as we did not want to fluid overload her, as she already has scan pitting edema noted, and history of heart failure. She is afebrile, and infection is not suspected, lactic acidosis likely from CANDIDO versus updrafts at home as well as in hospital. We will continue to closely monitor. She is under no acute distress, vital signs remained stable. 1930 - Transfer of care initiated. Medications Administered Discontinued Medications Generic Name Dose Route Start Last Admin Trade Name Freq PRN Reason Stop Dose Admin Piperacillin Sod/Tazobactam 100 mls @ 200 mls/hr 06/25/24 15:05 06/25/24 16:21 Sod 4.5 gm/ Sodium Chloride IV 06/25/24 15:34 Infused ONCE ONE Infusion Sodium Chloride 1,000 mls @ 999 mls/hr 06/25/24 16:02 06/25/24 18:32 Ns IVCONT 06/25/24 17:02 Infused .Q1H1M ONE Infusion Levalbuterol HCl 2.5 mg 06/25/24 15:05 06/25/24 15:08 Levalbuterol Hcl 1.25 Mg/3 Ml Vial.Neb INHALE 06/25/24 15:06 2.5 mg ONCE ONE Administration Medical Decision Making Medical Decision Making MDM Narrative: 82 yo female with PMH of acute on chronic resp failure PRN o2 use, metabolic encephalopathy, pneumonia, CHF 35-40%, CANDIDO, E. Coli, UTI, bronchiectasis, PAF not on anticoagulation, CAD, dementia, HLD, who presents emergency department for worsening congestion and cough x1 month. On arrival, respirations 24, blood pressure 155/70, all other vital signs within normal limits. Patient well- appearing, has no current complaints. Wet cough heard on examination. She does have scant pitting edema noted bilaterally. Labs were performed outpatient revealing evidence of CANDIDO, and elevated white blood cell count. She has been on steroids as well as updrafts which has provided her with minimal relief. She was called by her virtual office assistant and was told to come to the emergency room for further evaluation. Differential Diagnosis Differential Diagnoses: The differential diagnosis associated with the presentation includes COPD exacerbation, bronchitis, URI, COVID, flu, RSV, pneumonia, CANDIDO Admission/Observation Consideration of admission/observation: Escalation of care including admission/observation considered Lab Data MDM Lab Attestation statement: I reviewed the patient's lab results. Patient with leukocytosis noted at 19 0.2, with left shift, creatinine elevated at 1.4, BUN elevated at 35. Random glucose 272, lactic acid at 3.1, total bili 1.8, AST ALT elevated at 38 and 71, patient has a history of these being elevated, BNP 106, troponin flat. 06/25/24 14:14 06/25/24 14:14 Labs: Lab Results 06/25/24 06/25/24 06/25/24 Range/Units 13:59 14:14 15:33 WBC 19.2 H (4.8-10.8) X10*3/uL RBC 4.19 L (4.20-5.50) X10*6/uL Hgb 13.7 (12.0-16.0) g/dl Hct 38.5 (37.0-47.0) % MCV 91.9 (80.0-98.0) fL MCH 32.7 (27.0-33.0) pg MCHC 35.6 H (31.0-35.0) g/dl RDW 14.9 (11.0-16.0) % Plt Count 161 (160-400) X10*3/uL MPV 11.1 (9.4-12.3) fL Immature Gran % (Auto) 3.3 H (0.0-0.4) % Neut % (Auto) 83.8 H (45-73) % Lymph % (Auto) 7.4 L (20-40) % Victoria % (Auto) 4.4 (2-11) % Eos % (Auto) 0.8 (0-4) % Baso % (Auto) 0.3 (0-2) % Lymph # (Auto) 1.4 (1.2-4.9) X10*3/uL Victoria # (Auto) 0.8 (0.1-1.2) X10*3/uL Eos # (Auto) 0.2 (0.0-0.4) X10*3/uL Baso # (Auto) 0.1 (0.0-0.2) X10*3/uL Abs Immat Gran (auto) 0.64 H (0.00-0.03) X10*3/uL Absolute Neuts (auto) 16.1 H (2.0-8.3) x10*3/uL Absolute Nucleated RBC 0.000 (0.0-0.012) X10*3/uL Nucleated RBC % (auto) 0.0 (0.0-0.2) /100WBC Sodium 137 (135-145) mmol/L Potassium 4.0 (3.3-5.1) mmol/L Chloride 96 (96-108) mmol/L Carbon Dioxide 28 (22-29) mmol/L Anion Gap 17 (12-20) BUN 35 H (9-16) mg/dL Creatinine 1.47 H (0.5-1.4) mg/dL Estim Creat Clear Calc 31.5 Estimated GFR 34 Random Glucose 272 H (60-115) mg/dL Lactic Acid 3.1 H* (0.5-2.0) mmol/L Lactic Acid F/U @ 2Hr (0.5-2.0) mmol/L Calcium 9.3 (8.4-10.2) mg/dL Magnesium 2.4 (1.6-2.6) mg/dL Total Bilirubin 1.8 H (0.0-1.0) mg/dL Direct Bilirubin 0.5 (0.0-0.5) mg/dL AST 38 H (5-31) U/L ALT 71 H (0-31) U/L Alkaline Phosphatase 89 (39-117) U/L Troponin I High Sens 36.2 H (<3.5-17.0) ng/L B-Natriuretic Peptide 106 H (<100) pg/mL Total Protein 6.9 (6.5-8.0) g/dL Albumin 3.7 (3.5-5.0) g/dL Urine Color Urine Appearance Urine pH (5.0-9.0) Ur Specific Lawrence (1.005-1.025) Urine Protein (Neg-Trace) mg/dL Urine Glucose (UA) (Negative) mg/dL Urine Ketones (Negative) mg/dL Urine Blood (Negative) Urine Nitrite (Negative) Ur Leukocyte Esterase (Negative) Urine RBC (0-2) /HPF Urine WBC (0-5) /HPF Ur Squamous Epith Cells (0-2) /HPF Urine Bacteria (None Seen) Hyaline Casts (0-2) /LPF Influenza Type A (PCR) NEGATIVE (Negative) Influenza Type B (PCR) NEGATIVE (Negative) RSV RNA Qual (PCR) NEGATIVE (Negative) SARS-CoV-2 RNA (RT-PCR) NEGATIVE (Negative) 06/25/24 06/25/24 06/25/24 Range/Units 16:40 17:19 18:23 WBC (4.8-10.8) X10*3/uL RBC (4.20-5.50) X10*6/uL Hgb (12.0-16.0) g/dl Hct (37.0-47.0) % MCV (80.0-98.0) fL MCH (27.0-33.0) pg MCHC (31.0-35.0) g/dl RDW (11.0-16.0) % Plt Count (160-400) X10*3/uL MPV (9.4-12.3) fL Immature Gran % (Auto) (0.0-0.4) % Neut % (Auto) (45-73) % Lymph % (Auto) (20-40) % Victoria % (Auto) (2-11) % Eos % (Auto) (0-4) % Baso % (Auto) (0-2) % Lymph # (Auto) (1.2-4.9) X10*3/uL Victoria # (Auto) (0.1-1.2) X10*3/uL Eos # (Auto) (0.0-0.4) X10*3/uL Baso # (Auto) (0.0-0.2) X10*3/uL Abs Immat Gran (auto) (0.00-0.03) X10*3/uL Absolute Neuts (auto) (2.0-8.3) x10*3/uL Absolute Nucleated RBC (0.0-0.012) X10*3/uL Nucleated RBC % (auto) (0.0-0.2) /100WBC Sodium (135-145) mmol/L Potassium (3.3-5.1) mmol/L Chloride (96-108) mmol/L Carbon Dioxide (22-29) mmol/L Anion Gap (12-20) BUN (9-16) mg/dL Creatinine (0.5-1.4) mg/dL Estim Creat Clear Calc Estimated GFR Random Glucose (60-115) mg/dL Lactic Acid (0.5-2.0) mmol/L Lactic Acid F/U @ 2Hr 3.8 H* (0.5-2.0) mmol/L Calcium (8.4-10.2) mg/dL Magnesium (1.6-2.6) mg/dL Total Bilirubin (0.0-1.0) mg/dL Direct Bilirubin (0.0-0.5) mg/dL AST (5-31) U/L ALT (0-31) U/L Alkaline Phosphatase (39-117) U/L Troponin I High Sens 32.3 H (<3.5-17.0) ng/L B-Natriuretic Peptide (<100) pg/mL Total Protein (6.5-8.0) g/dL Albumin (3.5-5.0) g/dL Urine Color Yellow Urine Appearance Clear Urine pH 5.5 (5.0-9.0) Ur Specific Lawrence 1.015 (1.005-1.025) Urine Protein Negative (Neg-Trace) mg/dL Urine Glucose (UA) 100 H (Negative) mg/dL Urine Ketones Negative (Negative) mg/dL Urine Blood Negative (Negative) Urine Nitrite Negative (Negative) Ur Leukocyte Esterase Trace H (Negative) Urine RBC 0-2 (0-2) /HPF Urine WBC 0-5 (0-5) /HPF Ur Squamous Epith Cells 0-2 (0-2) /HPF Urine Bacteria Trace (None Seen) Hyaline Casts 3-5 (0-2) /LPF Influenza Type A (PCR) (Negative) Influenza Type B (PCR) (Negative) RSV RNA Qual (PCR) (Negative) SARS-CoV-2 RNA (RT-PCR) (Negative) Independent Interpretation I performed an independent interpretation of an: EKG Interpretation: EKG sinus rhythm with first-degree AV block with PACs, no ST elevation or depression. Radiology Impression Discussion of test interpretation with radiology: I have reviewed the radiologist's reading. Radiologist Impression: CLINICAL HISTORY: constipation Abdomen X-ray, 1 View COMPARISON: CR - XR ABDOMEN MIN 2V - 06/24/24 15:44 EST FINDINGS: Nonobstructive bowel gas pattern. No visible free air. No acute fracture. Lumbar dextroscoliosis. Degenerative changes in the spine. Status post right hip arthroplasty. Surgical clips in the right upper abdominal quadrant. IMPRESSION: No acute findings. Nonemergent/incidental findings above. This document has been electronically signed by: Zach Dos Santos MD on 06/25/2024 18:37:58 Dictated By: Zach Dos Santos MD EXAMINATION: XR CHEST 1 VIEW HISTORY: cough COMPARISON: Comparison is made with the prior examination dated 06/24/2024. FINDINGS: A single AP portable view of the chest performed at 3:02 PM is submitted. Again seen is bibasilar subsegmental atelectasis versus scarring. No new focal airspace opacity is identified. There is no pleural effusion, pneumothorax, or pulmonary vascular congestion. The heart is normal in size. The patient is status post median sternotomy and CABG. There is degenerative disc disease of the spine. XR/XR chest 1V IMPRESSION: Bibasilar subsegmental atelectasis versus scarring. Electronically signed by: Sujit Snyder MD 06/25/2024 03:26 PM EST RP Dictated By: Sujit Snyder MD Discharge Plan Discharge Clinical Impression: CANDIDO (acute kidney injury), Acute exacerbation of chronic obstructive pulmonary disease (COPD), Elevated troponin Prescriptions: No Action (DME) Aerochamber MV Spacer See Rx Instructions .ROUTE .MEDSUPPLY Qty: 1 0RF Rx Instructions: As directed tobramycin 300 mg/4 mL solution for nebulization 300 mg inhalation BID 28 Days Qty: 224 6RF Rx Instructions: use for 28 days on and 28 days off Anoro Ellipta 62.5-25 mcg/actuation blister with device 1 ea inhalation DAILY 30 Days Qty: 60 11RF Rx Instructions: do not interchange, daughter will bring in levalbuterol HCl 1.25 mg/3 mL solution for nebulization 1.25 mg PO QID Qty: 1050 0RF isosorbide mononitrate 30 mg tablet extended release 24 hr 30 mg PO DAILY aspirin 81 mg tablet,delayed release (DR/EC) 81 mg PO DAILY pantoprazole 40 mg tablet,delayed release (DR/EC) 40 mg PO BID albuterol sulfate [Ventolin HFA] 90 mcg/actuation HFA aerosol inhaler 2 puff INHALATION Q4-6H PRN (Reason: Shortness Of Breath Or Wheezing) cyanocobalamin (vitamin B-12) 1,000 mcg tablet 1,000 mcg PO DAILY Lactobacillus acidophilus 500 million cell capsule 500,000,000 cell PO DAILY nystatin 100,000 unit/gram powder 1 appl topical BID PRN (Reason: Rash) Protocol: Apply to: Apply to: Abdominal Fold Rx Instructions: groin area metoprolol tartrate 25 mg Tablet 25 mg PO BID Qty: 60 0RF Protocol: Hold for SBP/HR < HOLD for SBP < : 90 HOLD for HR < : 60 atorvastatin [Lipitor] 40 mg tablet 40 mg PO BEDTIME Qty: 30 0RF quetiapine 50 mg tablet 50 mg PO BEDTIME multivitamin Tablet 1 tab PO DAILY acetaminophen 325 mg Tablet 650 mg PO Q6H PRN (Reason: Pain) potassium chloride 20 mEq tablet extended release 20 meq PO DAILY ferrous sulfate 325 mg (65 mg iron) tablet 325 mg PO BEDTIME nystatin 100,000 unit/mL Suspension 100,000 unit PO BID Rx Instructions: Swish and spit for thrush fluticasone propionate 50 mcg/actuation spray,suspension 1 spray intranasal BID Rx Instructions: 1 spray into each nostril montelukast 10 mg tablet 10 mg PO BEDTIME (DME) nebulizers Kit See Rx Instructions .Route Rx Instructions: As directed prednisone 10 mg tablet See Rx Instructions PO DAILY 20 Days Qty: 30 2RF Rx Instructions: PO daily; Take 2 tabs daily x 10 days, then 1 tab daily x 10 days Print Language: [place]
[2024-06-25 14:42] LABS: B Type Natriuretic Peptide 106 pg/mL (<100)
[2024-06-25 14:43] LABS: Troponin-I High Sensitivity 36.2 ng/L (<3.5-17.0)
--- NOTE | 2024-06-25 14:56 | ECG_ITS ---
Test Reason : SOB Blood Pressure : */* mmHG Vent. Rate : 91 BPM Atrial Rate : 91 BPM P-R Int : 238 ms QRS Dur : 86 ms QT Int : 350 ms P-R-T Axes : 83 46 200 degrees QTcB Int : 430 ms Sinus rhythm with 1st degree A-V block with occasional Premature ventricular complexes Nonspecific ST and T wave abnormality Abnormal ECG When compared with ECG of 25-Mar-2023 16:29, Sinus rhythm has replaced Atrial flutter T wave inversion now evident in Anterior leads Referred By: Eli Martinez Electronically Signed By: Swapnil Bassett
[2024-06-25] MEDS: levalbuterol HCL 1.25 MG/3 ML VIAL.NEB 2.5 MG INHALE (15:08)
[2024-06-25 15:10] LABS: Influenza A PCR NEGATIVE (Negative); Influenza B PCR NEGATIVE (Negative); Resp Syncy Virus RNA Qual PCR NEGATIVE (Negative); SARS COV2 PCR INHOUSE NEGATIVE (Negative)
[2024-06-25 15:30] LABS: Alkaline Phosphatase 89 U/L (39-117)
[2024-06-25] MEDS: Piperacillin Sodium/Tazobactam 4.5 GM in 0.9 % Sodium Chloride 100 ML IV ×2 (15:43→23:09)
[2024-06-25 15:59] LABS: Lactic Acid 3.1 mmol/L (0.5-2.0)
[2024-06-25] MEDS: 0.9 % Sodium Chloride 1,000 ML 999 ML IVCONT (16:12)
[2024-06-25 17:08] LABS: Troponin-I High Sensitivity 32.3 ng/L (<3.5-17.0)
[2024-06-25 17:39] LABS: Reflex Lactate? Lactic Acid Added
[2024-06-25 17:40] LABS: Appearance Urine Clear; Color Urine Yellow; Glucose Urine UA 100 mg/dL (Negative); Leukocyte Esterase Urine Trace (Negative); Nitrite Urine Negative (Negative); PH 5.5 (5.0-9.0); Specific Gravity - Urine 1.015 (1.005-1.025); UMIC TRIGGER UACC YES; Urine Blood Negative (Negative); Urine Ketones Negative (Negative); Urine Protein Negative (Neg-Trace)
[2024-06-25 17:44] LABS: Bacteria Urine Trace (None Seen); RBC Urine 0-2 /HPF (0-2); Squamous Epithelial Cell Urine 0-2 /HPF (0-2); WBC Urine 0-5 /HPF (0-5)
[2024-06-25 18:53] LABS: ~Lactic Acid-LAB USE ONLY 3.8 mmol/L (0.5-2.0)
--- NOTE | 2024-06-25 19:36 | PHA.MEDREC ---
Pharmacy Consult ? Medication Reconciliation Pharmacy has completed the medication reconciliation. Spoke with daughter at bedside who was able to confirm the patient's medication regimen. Notably, the Anoro ellipta can't be interchanged and will be brought in tomorrow, The patient must have levoalbuterol nebulizers, no duonebs. They had finished the Augmentin, Doxyxycline and Metronidazole, and had not started the Levofloxacin before coming in. The patient is no longer on furosemide per daughter and has started/restarted the prednisone taper multiple time. She states she is currently taking the 10mg Prednisone BID.
[2024-06-25] MEDS: 0.9 % Sodium Chloride 1,000 ML 500 ML IVCONT (19:57)
--- NOTE | 2024-06-25 20:06 | PC.NURSE ---
Delay in IV Zoysn due to difficulty accessing IV pt received an ultrasound guided IV 20G in Left AC
[2024-06-25 20:27] LABS: Reflex Lactate? 2 Y
--- NOTE | 2024-06-25 20:32 | PM.IMHP ---
History of Present Illness Date of Service: 06/25/24 Attending physician on admission: Caridad Rodriguez Chief Complaint: worsening cough SOB Patient is an 83-year-old female with a past medical history significant for COPD on as needed oxygen, CHF (EF 35-40%), recurrent UTIs, paroxysmal AFib (no anticoagulation), CAD, history CABG x4, dementia, HLD, history of Pseudomonas pneumonia x2, last episode 6 months ago, who presented to the ED today due to worsening shortness of breath congestion and cough. She reports this has been ongoing for the past month he recently saw Dr. Aldana who prescribed antibiotics by his she has yet to pick them up. Her cough is mildly productive with whitish sputum. She denies any fever, chills, nausea or vomiting. She will experience some fatigue and shortness of breath with ambulation but denies any shortness of breath at rest, orthopnea or chest pain. She reports that she has not needed to use her home oxygen. She also denies any urinary symptoms. Review of Systems Constitutional: Constitutional: Denies body ache(s), Denies chills, Reports fatigue, Denies fever(s) and Denies headache(s) Eyes: Eyes: Denies change in vision ENT: Denies headache(s), Denies nasal congestion, Denies nasal discharge and Denies sore throat Cardiovascular: Cardiovascular: Denies chest pain, Denies rapid heart rate, Denies leg edema, Denies lightheadedness, Denies dyspnea and Reports dyspnea on exertion Respiratory: Respiratory: Reports chest congestion, Reports cough, Denies hemoptysis, Denies dyspnea, Reports dyspnea on exertion and Reports wheezing Gastrointestinal: Gastrointestinal: Denies abdominal pain, Denies constipation, Denies diarrhea, Denies nausea and Denies vomiting Genitourinary: Genitourinary: Denies dysuria, Reports urinary incontinence and Denies urinary urgency Musculoskeletal: Musculoskeletal: Denies back pain and Denies myalgias Integumentary/Breasts: Skin/Breast: Denies rash Neurologic: Denies confusion and Denies headache(s) Psychiatric: Psychiatric: Denies confusion Endocrine: Endocrine: Reports fatigue Hematologic/Lymphatic: Hematologic/Lymphatic: Denies easy bleeding and Denies easy bruising Allergic/Immunologic: Allergic/Immunologic: Reports wheezing [facility] Medical History (Updated 06/25/24 @ 20:51 by Angie Hardy PA-C) Congestive heart failure Mild bibasilar atelectasis Aspiration pneumonia Clostridioides difficile infection Pneumonia Atrial flutter Pyuria Atelectasis of right lung Encephalopathy chronic History of infection with vancomycin resistant Enterococcus (VRE) Heart failure Dyspnea Paroxysmal A-fib COPD (chronic obstructive pulmonary disease) A-fib Acute encephalopathy Anemia Pseudomonas respiratory infection CAD (coronary artery disease) Acute respiratory failure with hypoxia Chronic dyspnea Acute hypokalemia Atrial fibrillation with RVR Anemia GI bleed Pulmonary nodules COPD (chronic obstructive pulmonary disease) Bronchiectasis Pseudomonal pneumonia Family History Other No family history of cancer Surgical History H/O umbilical hernia repair (09/18/22) History of quadruple bypass History of hip replacement History of knee replacement History of cholecystectomy Social History Household Members: Family Housing: House Are you a primary gericare aide teacher to a significant other at home: No Do you presently have visiting nurse or other home services: No Alcohol intake: never Patient Tobacco Use Status: Former Tobacco user Tobacco use type: Cigarette Advance Directives: Yes Advance Directives on File: Yes Advance Directives Date on File: 08/24/22 service: No Current occupational status: retired Narrative: Previous smoker, no alcohol or drug use Meds Allergies Allergy/AdvReac Type Severity Reaction Status Date / Time carvedilol Allergy Shortness Verified 06/25/24 13:02 of Breath sertraline [From Zoloft] Allergy Shortness Verified 06/25/24 13:02 of Breath spironolactone Allergy Shortness Verified 06/25/24 13:02 of Breath adhesive tape AdvReac Severe skin tears Verified 06/25/24 13:02 mirtazapine AdvReac Severe psychotic Verified 06/25/24 13:02 episode Active Medications: Current Medications Acetaminophen (Acetaminophen 325 Mg Tablet) 650 mg PO Q6H PRN PRN Reason: Pain, Mild 1-3,fever,headache Albuterol/Ipratropium (Albuterol/Iprat 2.5/0.5mg 3 Ml Ampul.Neb) 3 ml INHALE RQ4H WHILE AWAKE ANIBAL Benzonatate (Benzonatate 100 Mg Capsule) 200 mg PO TID PRN PRN Reason: Cough Calcium Carbonate (Calcium Carbonate 750 Mg Tab.Chew) 750 mg PO Q4H PRN PRN Reason: Heartburn Enoxaparin Sodium (Enoxaparin Sodium 40 Mg/0.4 Ml Syringe) 40 mg SUBCUT Q24H [facility] Sodium Chloride (Ns) 1,000 mls @ 500 mls/hr IVCONT .Q2H ONE Stop: 06/25/24 21:00 Last Admin: 06/25/24 19:57 Dose: 500 mls/hr Piperacillin Sod/Tazobactam (Sod 4.5 gm/ Sodium Chloride) 100 mls @ 200 mls/hr IV Q8H [facility] Magnesium Hydroxide (Milk Of Magnesia 30 Ml Oral.Susp) 30 ml PO DAILY PRN PRN Reason: Constipation Melatonin (Melatonin 3 Mg Tablet) 6 mg PO BEDTIME PRN PRN Reason: Insomnia Ondansetron HCl (Ondansetron Hcl 4 Mg/2 Ml Vial) 4 mg IVPUSH Q8H PRN PRN Reason: Nausea and Vomiting Sodium Chloride (0.9 % Sodium Chloride Flush 3 Ml Syringe) 3 ml IVFLUSH QSHIFT [facility] Home Medications ?Medication ?Instructions ?Recorded ?Confirmed ?Last Taken ?Type fluticasone propionate 50 1 spray intranasal BID 03/22/22 06/25/24 06/25/24 09:00 History mcg/actuation nasal spray,suspension montelukast 10 mg tablet 10 mg PO BEDTIME 03/22/22 06/25/24 06/24/24 21:00 History nebulizers 03/22/22 11/09/23 Unknown History albuterol sulfate 90 mcg/actuation 2 puff inhalation Q4-6H PRN 11/02/22 06/25/24 06/25/24 09:00 History aerosol inhaler (Ventolin HFA) Shortness Of Breath Or Wheezing aspirin 81 mg tablet,delayed 81 mg PO DAILY 11/02/22 06/25/24 06/25/24 09:00 History release isosorbide mononitrate 30 mg 30 mg PO DAILY 11/02/22 06/25/24 06/25/24 09:00 History tablet,extended release 24 hr pantoprazole 40 mg tablet,delayed 40 mg PO BID 05/06/25/24 06/25/24 09:00 History release acetaminophen 325 mg tablet 650 mg PO Q6H PRN Pain 01/13/23 06/25/24 06/25/24 09:00 History multivitamin 1 tab PO DAILY 01/13/23 06/25/24 06/25/24 09:00 History potassium chloride 20 mEq 20 meq PO DAILY 01/13/23 06/25/24 06/25/24 09:00 History tablet,extended release quetiapine 50 mg tablet 50 mg PO BEDTIME 01/13/23 06/25/24 06/24/24 21:00 History Lactobacillus acidophilus 500 500,000,000 cell PO DAILY 03/25/23 06/25/24 06/25/24 09:00 History million cell capsule cyanocobalamin (vitamin B-12) 1,000 mcg PO DAILY 03/25/23 06/25/24 06/25/24 09:00 History 1,000 mcg tablet nystatin 100,000 unit/gram topical 1 appl topical BID PRN Rash 03/25/23 06/25/24 06/25/24 09:00 History powder ferrous sulfate 325 mg (65 mg 325 mg PO BEDTIME 06/25/24 06/25/24 06/24/24 21:00 History iron) tablet nystatin 100,000 unit/mL oral 100,000 unit PO BID 06/25/24 06/25/24 06/25/24 History suspension Physical Exam Vital Signs and Narrative: Vital Signs: Last Vital Signs Temp 97.6 F 06/25/24 18:59 Pulse 92 06/25/24 18:32 Resp 21 H 06/25/24 18:32 BP 135/68 06/25/24 18:32 Pulse Ox 98 06/25/24 18:32 O2 Del Method Room Air 06/25/24 18:32 O2 Flow Rate 98 06/25/24 18:32 BMI result Body Mass Index 50.5 General: AOx3, no acute distress Resp: Rhonchi bilaterally, diminished throughout, mild inspiratory and expiratory wheezing, no respiratory distress CVS: S1, S2, RRR GI: +BS, NT, no distention Skin: Warm, dry Neuro: Cranial nerves II-XII grossly intact bilaterally. Motor grossly intact bilaterally Extremities: Trace lower extremity edema Psych: Appropriate affect Const: General: No confusion Orientation/consciousness: No confusion Neuro: General: No confusion Results Labs 06/25/24 14:14 06/25/24 14:14 Labs: Laboratory Results - last 24 hr 06/25/24 06/25/24 06/25/24 13:59 14:14 15:33 MCV 91.9 MCH 32.7 MCHC 35.6 H RDW 14.9 Plt Count 161 MPV 11.1 Immature Gran % (Auto) 3.3 H Neut % (Auto) 83.8 H Lymph % (Auto) 7.4 L [place] % (Auto) 4.4 Eos % (Auto) 0.8 Baso % (Auto) 0.3 Lymph # (Auto) 1.4 [place] # (Auto) 0.8 Eos # (Auto) 0.2 Baso # (Auto) 0.1 Abs Immat Gran (auto) 0.64 H Absolute Neuts (auto) 16.1 H Absolute Nucleated RBC 0.000 Nucleated RBC % (auto) 0.0 Anion Gap 17 Estim Creat Clear Calc 31.5 Estimated GFR 34 Random Glucose 272 H Lactic Acid 3.1 H* Lactic Acid F/U @ 2Hr Calcium 9.3 Magnesium 2.4 Total Bilirubin 1.8 H Direct Bilirubin 0.5 AST 38 H ALT 71 H Alkaline Phosphatase 89 Troponin I High Sens 36.2 H B-Natriuretic Peptide 106 H Total Protein 6.9 Albumin 3.7 Urine Color Urine Appearance Urine pH Ur Specific [place] Urine Protein Urine Glucose (UA) Urine Ketones Urine Blood Urine Nitrite Ur Leukocyte Esterase Urine RBC Urine WBC Ur Squamous Epith Cells Urine Bacteria Hyaline Casts Influenza Type A (PCR) NEGATIVE Influenza Type B (PCR) NEGATIVE RSV RNA Qual (PCR) NEGATIVE SARS-CoV-2 RNA (RT-PCR) NEGATIVE 06/25/24 06/25/24 06/25/24 16:40 17:19 18:23 MCV MCH MCHC RDW Plt Count MPV Immature Gran % (Auto) Neut % (Auto) Lymph % (Auto) [place] % (Auto) Eos % (Auto) Baso % (Auto) Lymph # (Auto) [place] # (Auto) Eos # (Auto) Baso # (Auto) Abs Immat Gran (auto) Absolute Neuts (auto) Absolute Nucleated RBC Nucleated RBC % (auto) Anion Gap Estim Creat Clear Calc Estimated GFR Random Glucose Lactic Acid Lactic Acid F/U @ 2Hr 3.8 H* Calcium Magnesium Total Bilirubin Direct Bilirubin AST ALT Alkaline Phosphatase Troponin I High Sens 32.3 H B-Natriuretic Peptide Total Protein Albumin Urine Color Yellow Urine Appearance Clear Urine pH 5.5 Ur Specific [place] 1.015 Urine Protein Negative Urine Glucose (UA) 100 H Urine Ketones Negative Urine Blood Negative Urine Nitrite Negative Ur Leukocyte Esterase Trace H Urine RBC 0-2 Urine WBC 0-5 Ur Squamous Epith Cells 0-2 Urine Bacteria Trace Hyaline Casts 3-5 Influenza Type A (PCR) Influenza Type B (PCR) RSV RNA Qual (PCR) SARS-CoV-2 RNA (RT-PCR) Imaging Radiologist's Impressions: Impressions Chest X-Ray 06/25/24 14:55 IMPRESSION: Bibasilar subsegmental atelectasis versus scarring. Electronically signed by: Sujit Snyder MD 06/25/2024 03:26 PM [facility] Assessment and Plan (1) Sepsis: Status: Acute (2) Acute exacerbation of chronic obstructive pulmonary disease (COPD): Status: Acute (3) Pneumonia: Qualifiers: Laterality: right Lung location: lower lobe of lung Pneumonia type: due to unspecified organism Qualified Code(s): J18.9 - Pneumonia, unspecified organism Status: Acute (4) CANDIDO (acute kidney injury): Status: Acute (5) Acidosis, lactic: Status: Acute (6) Hyperglycemia: Status: Acute (7) Elevated LFTs: Status: Acute (8) Morbid obesity with BMI of 50.0-59.9, adult: Status: Chronic Plan Patient is an 83-year-old female with a past medical history significant for COPD on as needed oxygen, CHF (EF 35-40%), recurrent UTIs, paroxysmal AFib (no anticoagulation), CAD, history CABG x4, dementia, HLD, history of Pseudomonas pneumonia x2, last episode 6 months ago, who presented to the ED today due to worsening shortness of breath congestion and cough. Sepsis secondary to acute COPD exacerbation with superimposed pneumonia - WBC 19.2, lactic acid 3.1, mild tachycardia and tachypnea, blood cultures x2 pending, not severe sepsis - chest x-ray with bibasilar sometimes segmental atelectasis versus scarring - EKG normal, troponin 36.2, 32.3 on repeat - COVID/flu/RSV negative - UA negative - check sputum culture - started on Zosyn in ED due to history of Pseudomonas pneumonia, continue - given 2L NS in ED, hold on further fluids due to history CHF - DuoNebs every 4 hours as needed while awake - Tessalon 200 mg t.i.d. as needed - monitor CBC and BMP CANDIDO - creatinine 1.47, baseline 0.8 to 0.9 - given IV fluids as above - monitor BMP Lactic acidosis - likely secondary to CANDIDO, not severe sepsis Hyperglycemia - likely secondary to sepsis - history of elevated blood sugars during hospital visits - add A1c - monitor POC - add sliding scale insulin if needed Elevated LFTs - likely secondary to sepsis - no abdominal pain or history of cirrhosis Recurrent UTIs - UA negative, asymptomatic Paroxysmal AFib - EKG with sinus rhythm and first-degree AV block with occasional PVCs - continue home meds Obesity - BMI 50.5 - weight loss encouraged Full code VTE prophylaxis: Lovenox Patient with sepsis secondary to acute COPD exacerbation with superimposed pneumonia and history of Pseudomonas pneumonia requiring admission for at least 2 midnights stay for IV antibiotics. Quality Stroke Does the patient have a stroke diagnosis?: No VTE Prior VTE?: No VTE Risk Level:: Medical - moderate - high VTE Device Contraindication: Treatment Not Indicated VTE Drug Contraindication: N/A - Med Ordered
[2024-06-25 21:32] LABS: Estimated Average Glucose 226 mg/dL; Hemoglobin A1C 287.0924 umol/L; Hemoglobin A1c % 9.5 % (<6.0); Total Hemoglobin (HGBA1C) 3577.6937 umol/L
--- NOTE | 2024-06-25 21:59 | MHC.EDTECH ---
Rounding on patient. Purewick checked. Currently in place, and patient dry. All current needs met.
[2024-06-25] MEDS: predniSONE 20 MG TABLET 40 MG PO (22:34)
[2024-06-25] MEDS: Albumin Human 25 % 100 ML 133.33 ML IV (23:41)
[2024-06-26] VITALS (12 sets, daily range): BP systolic 124–165; BP diastolic 60–109; PULSE 69–97; RESP 17–22; TEMP 36–36.7; O2SAT 95–98; BMI 33.9
[2024-06-26] MEDS: Albumin Human 25 % 100 ML 133.33 ML IV (00:24)
[2024-06-26] MEDS: Metoprolol Tartrate 25 MG TABLET PO ×3 (01:50→20:13)
[2024-06-26] MEDS: QUEtiapine Fumarate 50 MG TABLET PO ×2 (01:51→20:13)
[2024-06-26] MEDS: Omeprazole 20 MG CAPSULE.DR PO ×3 (01:54→20:12)
[2024-06-26] MEDS: Benzonatate 100 MG CAPSULE 200 MG PO ×2 (02:13→16:18)
[2024-06-26 05:04] LABS: Anion Gap 18 (12-20); Blood Urea Nitrogen 34 mg/dL (9-16); Calcium 8.5 mg/dL (8.4-10.2); Carbon Dioxide 22 mmol/L (22-29); Chloride 105 mmol/L (96-108); Creatinine Clr Calc Pharmacy 30.6; Estimated Glomerular Filt Rate 33; Glucose Random 388 mg/dL (60-115); Potassium 4.9 mmol/L (3.3-5.1); Sodium 140 mmol/L (135-145)
[2024-06-26 06:01] LABS: Basophils Percent Auto 0.2 % (0-2); Eosinophils Percent Auto 0.1 % (0-4); Hematocrit 29.9 % (37.0-47.0); Hemoglobin 10.4 g/dl (12.0-16.0); Imm Gran Abs Auto 0.19 X10*3/uL (0.00-0.03); Imm Gran Pct Auto 2.1 % (0.0-0.4); Lymphocytes Absolute Auto 0.6 X10*3/uL (1.2-4.9); Lymphocytes Percent Auto 6.9 % (20-40); Mean Corpuscular HGB Conc 34.8 g/dl (31.0-35.0); Mean Corpuscular Hemoglobin 32.6 pg (27.0-33.0); Mean Corpuscular Volume 93.7 fL (80.0-98.0); Mean Platelet Volume 11.3 fL (9.4-12.3); Monocytes Absolute Auto 0.1 X10*3/uL (0.1-1.2); Monocytes Percent Auto 1.4 % (2-11); Neutrophils Absolute Auto 8.3 x10*3/uL (2.0-8.3); Neutrophils Percent Auto 89.3 % (45-73); Red Blood Count 3.19 X10*6/uL (4.20-5.50); Red Cell Distribution Width 14.9 % (11.0-16.0); White Blood Count 9.3 X10*3/uL (4.8-10.8)
[2024-06-26 06:07] LABS: Platelet Count 87 X10*3/uL (160-400)
[2024-06-26 06:08] LABS: MANUAL DIFF FLAG NO
[2024-06-26] MEDS: Piperacillin Sodium/Tazobactam 4.5 GM in 0.9 % Sodium Chloride 100 ML IV ×3 (06:27→22:43)
[2024-06-26 07:30] LABS: Glucose, Whole Blood 437 mg/dL (60-115)
[2024-06-26] MEDS: Albuterol/Iprat 2.5/0.5MG 3 ML AMPUL.NEB INHALE ×3 (07:49→15:49)
--- NOTE | 2024-06-26 07:55 | PC.NURSE ---
RN called and spoke wtih the patient's daughter leatha per request as patient states we are not allowed to give her or do anything to her without first making her daughter aware and getting consent daughter agreeable to the patient receiving 10units of short acting insulin for her POC of 437
--- NOTE | 2024-06-26 08:02 | PC.NURSE ---
per Aniket, lispro order to be increased and long acting insulin to be added. RN outreaching to see if we should proceed with the 10units per current protocol or wait for updated orders in the MAR
[2024-06-26] MEDS: Lactated Ringers 1,000 ML 100 ML IVCONT (08:22)
[2024-06-26] MEDS: Insulin Lispro 100 UNIT/ML 3 ML VIAL SUBCUT ×4 (08:46→20:16)
[2024-06-26 08:57] LABS: Procalcitonin 0.09 ng/mL
[2024-06-26] MEDS: Nystatin Oral Susp 500,000 UNIT/5 ML ORAL.SUSP 100000 UNIT PO ×2 (09:20→20:15)
[2024-06-26] MEDS: methylPREDNISolone Sod Succ 40 MG/ML VIAL IVPUSH (09:20)
[2024-06-26] MEDS: Potassium Chloride ER 20 MEQ TAB.ER.PRT PO (09:20)
[2024-06-26] MEDS: Multivitamin TABLET 1 TAB PO (09:22)
[2024-06-26] MEDS: Aspirin Enteric Coated 81 MG TABLET.DR PO (09:22)
[2024-06-26] MEDS: Insulin Glargine,Hum.rec.anlog 100 UNIT/ML 10 ML VIAL 10 UNIT SUBCUT (09:23)
[2024-06-26] MEDS: Isosorbide Mononitrate 30 MG TAB.ER.24H PO (09:23)
--- NOTE | 2024-06-26 10:31 | HO.PM.IMPN ---
Subjective Subjective Date of Service: 06/26/24 Interval History: Cough/dyspnea a little improved. Some thin white sputum. Not known previously to have DM2. No fever. not hypoxic. Review of Systems Review of Systems: Yes all other systems are reviewed and are negative Physical Exam Vital Signs: Vital Signs: Last Vital Signs Temp 97.3 F 06/26/24 06:01 Pulse 87 06/26/24 09:22 Resp 17 06/26/24 07:50 BP 165/67 H 06/26/24 09:23 Pulse Ox 95 06/26/24 06:01 O2 Del Method Room Air 06/26/24 06:01 O2 Flow Rate 98 06/25/24 18:32 BMI result Body Mass Index 50.5 Gen: in no acute distress HEENT: sclera anicteric, moist mucus membranes Neck: supple Lungs: bilateral inspiratory crackles Heart: regular rate and rhythm, no murmurs Abd: soft, non-tender, non-distended, obese Ext: no edema Skin: warm/well-perfused Neuro: alert and oriented x3, no focal findings Psych: appropriate affect Objective Data Active Medications Acetaminophen (Acetaminophen 325 Mg Tablet) 650 mg PO Q6H PRN PRN Reason: Pain, Mild 1-3,fever,headache Albuterol/Ipratropium (Albuterol/Iprat 2.5/0.5mg 3 Ml Ampul.Neb) 3 ml INHALE RQ4H WHILE AWAKE [facility] Last Admin: 06/26/24 07:49 Dose: 3 ml Documented By: GRACIE Aspirin (Aspirin Enteric Coated 81 Mg Tablet.Dr) 81 mg PO DAILY [facility] Last Admin: 06/26/24 09:22 Dose: 81 mg Documented By: SIVAN Atorvastatin Calcium (Atorvastatin Calcium 40 Mg Tablet) 40 mg PO BEDTIME [facility] Benzonatate (Benzonatate 100 Mg Capsule) 200 mg PO TID PRN PRN Reason: Cough Last Admin: 06/26/24 02:13 Dose: 200 mg Documented By: TITA Calcium Carbonate (Calcium Carbonate 750 Mg Tab.Chew) 750 mg PO Q4H PRN PRN Reason: Heartburn Enoxaparin Sodium (Enoxaparin Sodium 40 Mg/0.4 Ml Syringe) 40 mg SUBCUT Q24H [facility] Last Admin: 06/25/24 21:34 Dose: Not Given Documented By: JANA Non-Admin Reason: Patient Refused Fluticasone Propionate (Fluticasone Propionate Nasal 16 Gm Gabbs) 1 spray NOSTRIL-B BID [facility] Last Admin: 06/26/24 02:01 Dose: Not Given Documented By: TITA Non-Admin Reason: Patient Refused Glucose (Glucose Gel 15 Gm Gel..Gram.) 15 gm PO Q15M PRN; Protocol PRN Reason: per Hypoglycemia Standing Ord. Piperacillin Sod/Tazobactam (Sod 4.5 gm/ Sodium Chloride) 100 mls @ 200 mls/hr IV Q8H [facility] Last Infusion: 06/26/24 07:18 Dose: Infused Documented By: SIVAN Dextrose (D10) 250 mls @ 750 mls/hr IV Q15M PRN; Protocol PRN Reason: per Hypoglycemia Standing Ord. Lactated Ringer's (Lr) 1,000 mls @ 100 mls/hr IVCONT .Q10H [facility] Stop: 06/26/24 18:14 Last Admin: 06/26/24 08:22 Dose: 100 mls/hr Documented By: SIVAN Insulin Glargine (Insulin Glargine,Hum.Rec.Anlog 100 Unit/Ml 10 Ml Vial) 10 unit SUBCUT DAILY [facility] Last Admin: 06/26/24 09:23 Dose: 10 unit Documented By: SIVAN Insulin Human Lispro (Insulin Lispro 100 Unit/Ml 3 Ml Vial) 0 unit SUBCUT QIDACHS [facility]; Protocol Last Admin: 06/26/24 08:46 Dose: 12 unit Documented By: SIVAN Isosorbide Mononitrate (Isosorbide Mononitrate 30 Mg Tab.Er.24h) 30 mg PO DAILY [facility]; Protocol Last Admin: 06/26/24 09:23 Dose: 30 mg Documented By: SIVAN Magnesium Hydroxide (Milk Of Magnesia 30 Ml Oral.Susp) 30 ml PO DAILY PRN PRN Reason: Constipation Melatonin (Melatonin 3 Mg Tablet) 6 mg PO BEDTIME PRN PRN Reason: Insomnia Methylprednisolone Sodium Succinate (Methylprednisolone Sod Succ 40 Mg/Ml Vial) 40 mg IVPUSH Q24H [facility] Last Admin: 06/26/24 09:20 Dose: 40 mg Documented By: SIVAN Metoprolol Tartrate (Metoprolol Tartrate 25 Mg Tablet) 25 mg PO BID [facility]; Protocol Last Admin: 06/26/24 09:22 Dose: 25 mg Documented By: SIVAN Montelukast Sodium (Montelukast Sodium 10 Mg Tablet) 10 mg PO BEDTIME [facility] Multivitamins/Vitamin C (Multivitamin Tablet) 1 tab PO DAILY [facility] Last Admin: 06/26/24 09:22 Dose: 1 tab Documented By: SIVAN Non-Formulary Medication (Tobramycin) 300 mg INHALE BID [facility] Non-Formulary Medication (Umeclidinium-Vilanterol [Anoro Ellipta]) 1 each INHALE RDAILY [facility] Nystatin (Nystatin Powder 15 Gm Bottle) 1 appl TOPICAL BID PRN; Protocol PRN Reason: Rash Nystatin (Nystatin Oral Susp 500,000 Unit/5 Ml Oral.Susp) 100,000 unit PO BID [facility]; Protocol Last Admin: 06/26/24 09:20 Dose: 100,000 unit Documented By: SIVAN Omeprazole (Omeprazole 20 Mg Capsule.Dr) 20 mg PO BID [facility] Last Admin: 06/26/24 09:22 Dose: 20 mg Documented By: ISVAN Ondansetron HCl (Ondansetron Hcl 4 Mg/2 Ml Vial) 4 mg IVPUSH Q8H PRN PRN Reason: Nausea and Vomiting Potassium Chloride (Potassium Chloride Er 20 Meq Tab.Er.Prt) 20 meq PO DAILY [facility] Last Admin: 06/26/24 09:20 Dose: 20 meq Documented By: SIVAN Quetiapine Fumarate (Quetiapine Fumarate 50 Mg Tablet) 50 mg PO BEDTIME [facility] Last Admin: 06/26/24 01:51 Dose: 50 mg Documented By: TITA Sodium Chloride (0.9 % Sodium Chloride Flush 3 Ml Syringe) 3 ml IVFLUSH QSHIFT [facility] Last Admin: 06/26/24 08:46 Dose: Not Given Documented By: SIVAN Non-Admin Reason: 10 ml flushed used Labs 06/26/24 05:57 06/26/24 04:39 Labs: Laboratory Results - last 24 hr 06/25/24 06/25/24 06/25/24 13:59 14:14 15:33 MCV 91.9 MCH 32.7 MCHC 35.6 H RDW 14.9 Plt Count 161 MPV 11.1 Immature Gran % (Auto) 3.3 H Neut % (Auto) 83.8 H Lymph % (Auto) 7.4 L Graham % (Auto) 4.4 Eos % (Auto) 0.8 Baso % (Auto) 0.3 Lymph # (Auto) 1.4 Graham # (Auto) 0.8 Eos # (Auto) 0.2 Baso # (Auto) 0.1 Abs Immat Gran (auto) 0.64 H Absolute Neuts (auto) 16.1 H Absolute Nucleated RBC 0.000 Nucleated RBC % (auto) 0.0 Anion Gap 17 Estim Creat Clear Calc 31.5 Estimated GFR 34 POC Glucose Random Glucose 272 H Estimat Average Glucose 226 Hemoglobin A1c % 9.5 H Lactic Acid 3.1 H* Lactic Acid F/U @ 2Hr Lactic Acid F/U @ 4Hr Calcium 9.3 Magnesium 2.4 Total Bilirubin 1.8 H Direct Bilirubin 0.5 AST 38 H ALT 71 H Alkaline Phosphatase 89 Troponin I High Sens 36.2 H B-Natriuretic Peptide 106 H Total Protein 6.9 Albumin 3.7 Procalcitonin Urine Color Urine Appearance Urine pH Ur Specific [place] Urine Protein Urine Glucose (UA) Urine Ketones Urine Blood Urine Nitrite Ur Leukocyte Esterase Urine RBC Urine WBC Ur Squamous Epith Cells Urine Bacteria Hyaline Casts Influenza Type A (PCR) NEGATIVE Influenza Type B (PCR) NEGATIVE RSV RNA Qual (PCR) NEGATIVE SARS-CoV-2 RNA (RT-PCR) NEGATIVE 06/25/24 06/25/24 06/25/24 16:40 17:19 18:23 MCV MCH MCHC RDW Plt Count MPV Immature Gran % (Auto) Neut % (Auto) Lymph % (Auto) Graham % (Auto) Eos % (Auto) Baso % (Auto) Lymph # (Auto) Graham # (Auto) Eos # (Auto) Baso # (Auto) Abs Immat Gran (auto) Absolute Neuts (auto) Absolute Nucleated RBC Nucleated RBC % (auto) Anion Gap Estim Creat Clear Calc Estimated GFR POC Glucose Random Glucose Estimat Average Glucose Hemoglobin A1c % Lactic Acid Lactic Acid F/U @ 2Hr 3.8 H* Lactic Acid F/U @ 4Hr Calcium Magnesium Total Bilirubin Direct Bilirubin AST ALT Alkaline Phosphatase Troponin I High Sens 32.3 H B-Natriuretic Peptide Total Protein Albumin Procalcitonin Urine Color Yellow Urine Appearance Clear Urine pH 5.5 Ur Specific [place] 1.015 Urine Protein Negative Urine Glucose (UA) 100 H Urine Ketones Negative Urine Blood Negative Urine Nitrite Negative Ur Leukocyte Esterase Trace H Urine RBC 0-2 Urine WBC 0-5 Ur Squamous Epith Cells 0-2 Urine Bacteria Trace Hyaline Casts 3-5 Influenza Type A (PCR) Influenza Type B (PCR) RSV RNA Qual (PCR) SARS-CoV-2 RNA (RT-PCR) 06/25/24 06/26/24 06/26/24 22:22 04:39 05:57 MCV 93.7 MCH 32.6 MCHC 34.8 RDW 14.9 Plt Count 87 L D MPV 11.3 Immature Gran % (Auto) 2.1 H Neut % (Auto) 89.3 H Lymph % (Auto) 6.9 L Graham % (Auto) 1.4 L Eos % (Auto) 0.1 Baso % (Auto) 0.2 Lymph # (Auto) 0.6 L Graham # (Auto) 0.1 Eos # (Auto) 0.0 Baso # (Auto) 0.0 Abs Immat Gran (auto) 0.19 H Absolute Neuts (auto) 8.3 Absolute Nucleated RBC 0.000 Nucleated RBC % (auto) 0.0 Anion Gap 18 Estim Creat Clear Calc 30.6 Estimated GFR 33 POC Glucose Random Glucose 388 H* Estimat Average Glucose Hemoglobin A1c % Lactic Acid Lactic Acid F/U @ 2Hr Lactic Acid F/U @ 4Hr 5.0 H* Calcium 8.5 D Magnesium Total Bilirubin Direct Bilirubin AST ALT Alkaline Phosphatase Troponin I High Sens B-Natriuretic Peptide Total Protein Albumin Procalcitonin 0.09 Urine Color Urine Appearance Urine pH Ur Specific [place] Urine Protein Urine Glucose (UA) Urine Ketones Urine Blood Urine Nitrite Ur Leukocyte Esterase Urine RBC Urine WBC Ur Squamous Epith Cells Urine Bacteria Hyaline Casts Influenza Type A (PCR) Influenza Type B (PCR) RSV RNA Qual (PCR) SARS-CoV-2 RNA (RT-PCR) 06/26/24 07:17 MCV MCH MCHC RDW Plt Count MPV Immature Gran % (Auto) Neut % (Auto) Lymph % (Auto) Graham % (Auto) Eos % (Auto) Baso % (Auto) Lymph # (Auto) Graham # (Auto) Eos # (Auto) Baso # (Auto) Abs Immat Gran (auto) Absolute Neuts (auto) Absolute Nucleated RBC Nucleated RBC % (auto) Anion Gap Estim Creat Clear Calc Estimated GFR POC Glucose 437 H* Random Glucose Estimat Average Glucose Hemoglobin A1c % Lactic Acid Lactic Acid F/U @ 2Hr Lactic Acid F/U @ 4Hr Calcium Magnesium Total Bilirubin Direct Bilirubin AST ALT Alkaline Phosphatase Troponin I High Sens B-Natriuretic Peptide Total Protein Albumin Procalcitonin Urine Color Urine Appearance Urine pH Ur Specific [place] Urine Protein Urine Glucose (UA) Urine Ketones Urine Blood Urine Nitrite Ur Leukocyte Esterase Urine RBC Urine WBC Ur Squamous Epith Cells Urine Bacteria Hyaline Casts Influenza Type A (PCR) Influenza Type B (PCR) RSV RNA Qual (PCR) SARS-CoV-2 RNA (RT-PCR) ITS Impressions Chest X-Ray 06/25/24 14:55 IMPRESSION: Bibasilar subsegmental atelectasis versus scarring. Electronically signed by: Sujit Snyder MD 06/25/2024 03:26 PM EST RP Chest CT 06/26/24 08:51 IMPRESSION: Concerning multifocal pneumonia with possibly aspiration component. Subacute compression fracture, T4 vertebra. Old compression fracture deformities, T9 T12 and likely T8 vertebral bodies. Coronary artery disease and atherosclerosis disease. Fat-containing epigastric hernia. Fleischner guidelines were followed. Electronically signed by: Chris Rothman MD 06/26/2024 09:49 AM EST RP Microbiology Microbiology Results: Microbiology 06/25/24 17:20 Gram Stain - Final Sputum - Expectorated Sputum Culture - Final Assessment and Plan (1) Severe sepsis: Status: Resolved Plan d2 for 83yo F with COPD on prn O2, hx Pseudomonas PNA x2, hx C.diff, HFrEF [35-40%], pAF not on AC, CAD [hx CABG x4], dementia, and HLD presented with dyspnea and cough, admitted for sepsis due to PNA/COPD exacerbation severe sepsis due to multifocal PNA - lactic acidosis on admission due to severe sepsis and additionally has thrombocytopenia now; continue piperacillin-tazobactam 06/25- due to hx Pseudomonas - trend PCT, follow BCx, re-collect sputum Cx - concern of aspiration: will obtain DRILLING MANAGER consultation COPD exacerbation - IV methylprednisolone, standing/prn nebs CANDIDO - appears prerenal though will check FENa + renal US; give 1L LR and recheck BMP in AM DM2 with hyperglycemia, new diagnosis - A1c 9.5, will start basal-bolus insulin hx Cdiff - will give preventive PO vancomycin while on piperacillin-tazobactam pAF - continue metoprolol tartrate; not on AC CAD - continue ASA, Imdur, metoprolol tartrate, atorvastatin dementia - quetiapine morbid obesity - diet/exercise counseling VTE ppx - enoxaparin dispo - TBD In my clinical judgment, the patient requires continued inpatient hospitalization for the following reasons: IV ABX, IV fluids Total time managing care of this patient today: 45 minutes. Quality Stroke Does the patient have a stroke diagnosis?: No VTE Prior VTE?: No VTE Risk Level:: Medical - moderate - high VTE Device Contraindication: Treatment Not Indicated VTE Drug Contraindication: N/A - Med Ordered
--- NOTE | 2024-06-26 10:48 | MHC.CM.PN ---
IMM 06/26/24, Pt lives with her dtr and son in law. Her dtr takes care of her and she does not have any other home care services. For DME, she has a walker and w/c, HCP is on file and confirmed, naming her dtr, Ximena. PCP confirmed: Dr. Arciniega. [facility], DCP: home with family care. Dtr requests that pt. be out of bed to use the bathroom and not have a purewick, so that she keeps moving. CM will pass this onto to her nurse. CM to follow for DC needs.
[2024-06-26 12:11] LABS: Glucose, Whole Blood 305 mg/dL (60-115)
[2024-06-26] MEDS: Fluticasone Propionate Nasal 16 GM SPRAY 1 SPRAY NOSTRIL-B (13:14)
[2024-06-26] MEDS: vancomycin HCL 125 MG CAPSULE PO ×2 (13:30→17:55)
[2024-06-26 14:39] LABS: Appearance Urine Clear; Color Urine Yellow; Glucose Urine UA >=1000 mg/dL (Negative); Leukocyte Esterase Urine Negative (Negative); Nitrite Urine Negative (Negative); UMIC TRIGGER UA YES; Urine Blood Negative (Negative); Urine Ketones Negative (Negative); Urine Protein Trace mg/dL (Neg-Trace)
[2024-06-26 14:41] LABS: Bacteria Urine None Seen (None Seen); Hyaline Casts Urine 0-2 /LPF (0-2); RBC Urine 0-2 /HPF (0-2); Squamous Epithelial Cell Urine 0-2 /HPF (0-2); WBC Urine 0-5 /HPF (0-5)
[2024-06-26 15:10] LABS: Creatinine Urine 32.07 mg/dL
--- NOTE | 2024-06-26 16:17 | MHC.SLORD ---
Speech Language Pathology Order Status: Pt seen for bedside swallow evaluation, sitting upright in bed, eating lunch with family member (regular solids and thin liquids). Pt refused swallow evaluation, stating she has had swallow evaluations before and doesn't want to have a modified diet. Pt understands she is at risk for aspiration. DEVOPS DEVELOPER can be consulted again if needed but pt is not interested in any further dysphagia intervention. MD notified.
[2024-06-26 17:21] LABS: Glucose, Whole Blood 289 mg/dL (60-115)
[2024-06-26] MEDS: Montelukast Sodium 10 MG TABLET PO (20:12)
[2024-06-26] MEDS: Atorvastatin Calcium 40 MG TABLET PO (20:15)
[2024-06-26 20:19] LABS: Glucose, Whole Blood 293 mg/dL (60-115)
[2024-06-26] MEDS: Enoxaparin Sodium 40 MG/0.4 ML SYRINGE SUBCUT (20:19)
[2024-06-26] MEDS: Acetaminophen 325 MG TABLET 650 MG PO (20:27)
[2024-06-27] VITALS (37 sets, daily range): BP systolic 90–188; BP diastolic 46–93; PULSE 49–130; RESP 16–24; TEMP 34.8–37.1; O2SAT 91–99; BMI 33.9
--- NOTE | 2024-06-27 | ECG_ITS ---
Test Reason : Arrhythmia Blood Pressure : */* mmHG Vent. Rate : 58 BPM Atrial Rate : 187 BPM P-R Int : * ms QRS Dur : 78 ms QT Int : 498 ms P-R-T Axes : 78 28 131 degrees QTcB Int : 488 ms Atrial tachycardia with variable conduction ST & T wave abnormality, consider anterolateral ischemia Prolonged QT Abnormal ECG When compared with ECG of 25-Jun-2024 15:06, No significant changes seen Referred By: Lulu France Electronically Signed By: MAKEDA BREAUX MD
--- NOTE | 2024-06-27 | ECG_ITS ---
Test Reason : Rhythm check Blood Pressure : */* mmHG Vent. Rate : 64 BPM Atrial Rate : 64 BPM P-R Int : 258 ms QRS Dur : 80 ms QT Int : 484 ms P-R-T Axes : 85 26 129 degrees QTcB Int : 499 ms Atrial tachycardia with with 3:1 A-V conduction ST & T wave abnormality, consider lateral ischemia Prolonged QT Abnormal ECG When compared with ECG of 27-Jun-2024 20:51, Vent. rate has decreased Referred By: Lulu France Electronically Signed By: MAKEDA BREAUX MD
[2024-06-27] MEDS: Benzonatate 100 MG CAPSULE 200 MG PO (00:24)
[2024-06-27] MEDS: 0.9 % Sodium Chloride Flush 3 ML SYRINGE IVFLUSH ×3 (00:25→16:18)
[2024-06-27] MEDS: vancomycin HCL 125 MG CAPSULE PO ×2 (00:25→03:48)
[2024-06-27] MEDS: Acetaminophen 325 MG TABLET 650 MG PO (03:49)
[2024-06-27 06:04] LABS: Hematocrit 31.6 % (37.0-47.0); Hemoglobin 10.6 g/dl (12.0-16.0); Mean Corpuscular HGB Conc 33.5 g/dl (31.0-35.0); Mean Corpuscular Hemoglobin 32.1 pg (27.0-33.0); Mean Corpuscular Volume 95.8 fL (80.0-98.0); Mean Platelet Volume 11.7 fL (9.4-12.3); NRBC Pct Auto 0.1 /100WBC (0.0-0.2); Platelet Count 106 X10*3/uL (160-400); Red Cell Distribution Width 14.9 % (11.0-16.0); White Blood Count 17.7 X10*3/uL (4.8-10.8)
[2024-06-27] MEDS: Piperacillin Sodium/Tazobactam 4.5 GM in 0.9 % Sodium Chloride 100 ML IV ×3 (06:24→23:34)
[2024-06-27 06:28] LABS: Anion Gap 13 (12-20); Blood Urea Nitrogen 32 mg/dL (9-16); Carbon Dioxide 23 mmol/L (22-29); Chloride 108 mmol/L (96-108); Estimated Glomerular Filt Rate 37; Glucose Random 248 mg/dL (60-115); Potassium 4.4 mmol/L (3.3-5.1); Sodium 140 mmol/L (135-145)
[2024-06-27 07:26] LABS: Glucose, Whole Blood 163 mg/dL (60-115)
[2024-06-27] MEDS: levalbuterol HCL 1.25 MG/3 ML VIAL.NEB INHALE (07:42)
[2024-06-27] MEDS: methylPREDNISolone Sod Succ 40 MG/ML VIAL IVPUSH (07:48)
[2024-06-27] MEDS: Insulin Lispro 100 UNIT/ML 3 ML VIAL SUBCUT ×4 (07:48→18:32)
[2024-06-27] MEDS: Insulin Glargine,Hum.rec.anlog 100 UNIT/ML 10 ML VIAL 10 UNIT SUBCUT ×2 (07:48→08:00)
[2024-06-27] MEDS: Aspirin Enteric Coated 81 MG TABLET.DR PO (07:49)
[2024-06-27] MEDS: Multivitamin TABLET 1 TAB PO (07:49)
[2024-06-27] MEDS: Potassium Chloride ER 20 MEQ TAB.ER.PRT PO (08:00)
[2024-06-27] MEDS: Metoprolol Tartrate 25 MG TABLET PO (08:01)
[2024-06-27] MEDS: Isosorbide Mononitrate 30 MG TAB.ER.24H PO (08:01)
[2024-06-27] MEDS: Lactated Ringers 500 ML 50 ML IVCONT (09:12)
--- NOTE | 2024-06-27 09:33 | P.PNIM_ITS ---
Subjective Subjective Date of Service: 06/27/24 Interval History: DELICATESSEN CLERK called @ 9:45 for respiratory distress initially tachypneic, no wheezing but no audible air movement, SaO2 89-90% refused additional levalbuterol, HFNC, or BiPAP was given 2 mg IV morphine for work of breathing then started generating wheeze c/o abd pain and abd appeared distended pt desaturated to 70% and BiPAP was attempted but pt kept pulling it off pt was transported to ICU for RSI/mechanical ventilation; she is FULL CODE; updated daughter and confirmed with her Review of Systems Review of Systems: Yes Unobtainable due to mental condition Physical Exam 2 Vital Signs: Vital Signs: Last Vital Signs Temp 96.8 F 06/27/24 03:01 Pulse 97 06/27/24 08:01 Resp 17 06/27/24 07:45 BP 166/92 H 06/27/24 08:01 Pulse Ox 98 06/27/24 03:01 O2 Del Method Room Air 06/27/24 03:01 O2 Flow Rate 98 06/25/24 18:32 BMI result Body Mass Index 33.9 Gen: severe respiratory distress HEENT: sclera anicteric, moist mucus membranes Neck: supple Lungs: tachypneic, poor air entry Heart: regular rate and rhythm, no murmurs Abd: soft, non-tender, non-distended, obese Ext: no edema Skin: warm/well-perfused Neuro: alert and oriented x3, no focal findings Psych: appropriate affect Objective Data Active Medications Acetaminophen (Acetaminophen 325 Mg Tablet) 650 mg PO Q6H PRN PRN Reason: Pain, Mild 1-3,fever,headache Last Admin: 06/27/24 03:49 Dose: 650 mg Documented By: TOSHIA Aspirin (Aspirin Enteric Coated 81 Mg Tablet.) 81 mg PO DAILY COUNTS INCLUDE 234 BEDS AT THE [facility] Last Admin: 06/27/24 07:49 Dose: 81 mg Documented By: ADAMA Atorvastatin Calcium (Atorvastatin Calcium 40 Mg Tablet) 40 mg PO BEDTIME COUNTS INCLUDE 234 BEDS AT THE [facility] Last Admin: 06/26/24 20:15 Dose: 40 mg Documented By: DEYANIRA Benzonatate (Benzonatate 100 Mg Capsule) 200 mg PO TID PRN PRN Reason: Cough Last Admin: 06/27/24 00:24 Dose: 200 mg Documented By: TOSHIA Calcium Carbonate (Calcium Carbonate 750 Mg Tab.Chew) 750 mg PO Q4H PRN PRN Reason: Heartburn Enoxaparin Sodium (Enoxaparin Sodium 40 Mg/0.4 Ml Syringe) 40 mg SUBCUT Q24H COUNTS INCLUDE 234 BEDS AT THE [facility] Last Admin: 06/26/24 20:19 Dose: 40 mg Documented By: MANUEL-NICKY Fluticasone Propionate (Fluticasone Propionate Nasal 16 Gm [place]) 1 spray NOSTRIL-B BID COUNTS INCLUDE 234 BEDS AT THE [facility] Last Admin: 06/27/24 09:14 Dose: Not Given Documented By: ADAMA Non-Admin Reason: Patient Refused Glucose (Glucose Gel 15 Gm Gel..Gram.) 15 gm PO Q15M PRN; Protocol PRN Reason: per Hypoglycemia Standing Ord. Piperacillin Sod/Tazobactam (Sod 4.5 gm/ Sodium Chloride) 100 mls @ 200 mls/hr IV Q8H COUNTS INCLUDE 234 BEDS AT THE [facility] Last Infusion: 06/27/24 07:36 Dose: Infused Documented By: ADAMA Dextrose (D10) 250 mls @ 750 mls/hr IV Q15M PRN; Protocol PRN Reason: per Hypoglycemia Standing Ord. Lactated Ringer's (Lr) 500 mls @ 50 mls/hr IVCONT .Q10H COUNTS INCLUDE 234 BEDS AT THE [facility] Stop: 06/27/24 19:14 Last Admin: 06/27/24 09:12 Dose: 50 mls/hr Documented By: ADAMA Insulin Glargine (Insulin Glargine,Hum.Rec.Anlog 100 Unit/Ml 10 Ml Vial) 10 unit SUBCUT DAILY COUNTS INCLUDE 234 BEDS AT THE [facility] Last Admin: 06/27/24 08:00 Dose: 10 unit Documented By: ADAMA Insulin Human Lispro (Insulin Lispro 100 Unit/Ml 3 Ml Vial) 0 unit SUBCUT QIDACHS COUNTS INCLUDE 234 BEDS AT THE [facility]; Protocol Last Admin: 06/27/24 07:58 Dose: 4 unit Documented By: ADAMA Isosorbide Mononitrate (Isosorbide Mononitrate 30 Mg Tab.Er.24h) 30 mg PO DAILY COUNTS INCLUDE 234 BEDS AT THE [facility]; Protocol Last Admin: 06/27/24 08:01 Dose: 30 mg Documented By: ADAMA Levalbuterol HCl (Levalbuterol Hcl 1.25 Mg/3 Ml Vial.Neb) 1.25 mg INHALE RQ4H WHILE AWAKE COUNTS INCLUDE 234 BEDS AT THE [facility] Last Admin: 06/27/24 07:42 Dose: 1.25 mg Documented By: HILDA Magnesium Hydroxide (Milk Of Magnesia 30 Ml Oral.Susp) 30 ml PO DAILY PRN PRN Reason: Constipation Melatonin (Melatonin 3 Mg Tablet) 6 mg PO BEDTIME PRN PRN Reason: Insomnia Methylprednisolone Sodium Succinate (Methylprednisolone Sod Succ 40 Mg/Ml Vial) 40 mg IVPUSH Q24H COUNTS INCLUDE 234 BEDS AT THE [facility] Last Admin: 06/27/24 07:48 Dose: 40 mg Documented By: ADAMA Metoprolol Tartrate (Metoprolol Tartrate 25 Mg Tablet) 25 mg PO BID COUNTS INCLUDE 234 BEDS AT THE [facility]; Protocol Last Admin: 06/27/24 08:01 Dose: 25 mg Documented By: ADAMA Montelukast Sodium (Montelukast Sodium 10 Mg Tablet) 10 mg PO BEDTIME COUNTS INCLUDE 234 BEDS AT THE [facility] Last Admin: 06/26/24 20:12 Dose: 10 mg Documented By: DEYANIRA Multivitamins/Vitamin C (Multivitamin Tablet) 1 tab PO DAILY COUNTS INCLUDE 234 BEDS AT THE [facility] Last Admin: 06/27/24 07:49 Dose: 1 tab Documented By: ADAMA Patient Own Medication ( Umeclidinium- Vilanterol [Anoro Ellipta] 62.5-25 Mcg /Actuation Bl 1 each INHALE RDAILY COUNTS INCLUDE 234 BEDS AT THE [facility] Nystatin (Nystatin Powder 15 Gm Bottle) 1 appl TOPICAL BID PRN; Protocol PRN Reason: Rash Nystatin (Nystatin Oral Susp 500,000 Unit/5 Ml Oral.Susp) 100,000 unit PO BID COUNTS INCLUDE 234 BEDS AT THE [facility]; Protocol Last Admin: 06/27/24 08:08 Dose: Not Given Documented By: ADAMA Non-Admin Reason: not available ,pharmacy notified Omeprazole (Omeprazole 20 Mg Capsule.Dr) 20 mg PO BID COUNTS INCLUDE 234 BEDS AT THE [facility] Last Admin: 06/26/24 20:12 Dose: 20 mg Documented By: DEYANIRA Ondansetron HCl (Ondansetron Hcl 4 Mg/2 Ml Vial) 4 mg IVPUSH Q8H PRN PRN Reason: Nausea and Vomiting Potassium Chloride (Potassium Chloride Er 20 Meq Tab.Er.Prt) 20 meq PO DAILY COUNTS INCLUDE 234 BEDS AT THE [facility] Last Admin: 06/27/24 08:00 Dose: 20 meq Documented By: ADAMA Quetiapine Fumarate (Quetiapine Fumarate 50 Mg Tablet) 50 mg PO BEDTIME COUNTS INCLUDE 234 BEDS AT THE [facility] Last Admin: 06/26/24 20:13 Dose: 50 mg Documented By: DEYANIRA Sodium Chloride (0.9 % Sodium Chloride Flush 3 Ml Syringe) 3 ml IVFLUSH QSHIFT COUNTS INCLUDE 234 BEDS AT THE [facility] Last Admin: 06/27/24 07:47 Dose: 3 ml Documented By: ADAMA Tobramycin Sulfate (Tobramycin Sulfate 80 Mg/2 Ml Vial) 300 mg INHALE RBID COUNTS INCLUDE 234 BEDS AT THE [facility] Last Admin: 06/26/24 23:56 Dose: Not Given Documented By: SAE Non-Admin Reason: with critical pt in ER Vancomycin HCl (Vancomycin Hcl 125 Mg Capsule) 125 mg PO Q6H COUNTS INCLUDE 234 BEDS AT THE [facility] Last Admin: 06/27/24 03:48 Dose: 125 mg Documented By: TEZK Labs 06/27/24 05:30 06/27/24 05:30 Labs: Laboratory Results - last 24 hr 06/26/24 06/26/24 06/26/24 12:08 14:27 17:02 MCV MCH MCHC RDW Plt Count MPV Absolute Nucleated RBC Nucleated RBC % (auto) Anion Gap Estim Creat Clear Calc Estimated GFR POC Glucose 305 H 289 H Random Glucose Calcium Urine Color Yellow Urine Appearance Clear Urine pH 6.0 Ur Specific [place] 1.020 Urine Protein Trace Urine Glucose (UA) >=1000 H Urine Ketones Negative Urine Blood Negative Urine Nitrite Negative Ur Leukocyte Esterase Negative Urine RBC 0-2 Urine WBC 0-5 Ur Squamous Epith Cells 0-2 Urine Bacteria None Seen Hyaline Casts 0-2 Ur Random Sodium 39.0 Urine Creatinine 32.07 06/26/24 06/27/24 06/27/24 20:01 05:30 07:14 MCV 95.8 MCH 32.1 MCHC 33.5 RDW 14.9 Plt Count 106 L MPV 11.7 Absolute Nucleated RBC 0.020 H Nucleated RBC % (auto) 0.1 Anion Gap 13 Estim Creat Clear Calc 27.0 Estimated GFR 37 POC Glucose 293 H 163 H Random Glucose 248 H Calcium 9.0 Urine Color Urine Appearance Urine pH Ur Specific [place] Urine Protein Urine Glucose (UA) Urine Ketones Urine Blood Urine Nitrite Ur Leukocyte Esterase Urine RBC Urine WBC Ur Squamous Epith Cells Urine Bacteria Hyaline Casts Ur Random Sodium Urine Creatinine Microbiology Microbiology Results: Microbiology 06/25/24 15:33 Blood Culture - Preliminary Blood - Venous No growth after 24 hours. 06/25/24 15:33 Blood Culture - Preliminary Blood - Venous No growth after 24 hours. 06/25/24 17:20 Gram Stain - Final Sputum - Expectorated Sputum Culture - Final Assessment and Plan (1) Severe sepsis: Status: Resolved Plan d3 for 83yo F with COPD on prn O2, hx Pseudomonas PNA x2, hx C. diff, HFrEF [35- 40%], pAF not on AC, CAD [hx CABG x4], dementia, and HLD presented with dyspnea and cough, admitted for sepsis due to PNA/COPD exacerbation, DELICATESSEN CLERK called 06/27 for respiratory distress, transferred to ICU and intubated acute/chronic hypoxic respiratory failure due to COPD exacerbation - to ICU for intubation/mechanical ventilation; continue IV methylprednisolone, standing/prn levalbuterol severe sepsis [lactic acidosis, thrombocytopenia] due to multifocal PNA - continue piperacillin-tazobactam started 06/25 due to hx Pseudomonas; follow BCx - concern of aspiration: pt refused MATERIAL DAMAGE APPRAISER evaluation/therapy, however abd pain/distension - CT A/P CANDIDO - FENa 1.3 [indeterminate] but Cr improving with fluid resuscitation DM2 with hyperglycemia, new diagnosis - A1c 9.5, started basal-bolus insulin hx Cdiff - will give preventive PO vancomycin while on piperacillin-tazobactam pAF - continue metoprolol tartrate; not on anticoagulation due to hx severe bleeding CAD - continue ASA, Imdur, metoprolol tartrate, atorvastatin dementia - quetiapine morbid obesity - diet/exercise counseling VTE ppx - enoxaparin dispo - TBD In my clinical judgment, the patient requires continued inpatient hospitalization for the following reasons: ICU care Total time managing care of this patient today: 65 minutes. Quality Stroke Does the patient have a stroke diagnosis?: No VTE Prior VTE?: No VTE Risk Level:: Medical - moderate - high VTE Device Contraindication: Treatment Not Indicated VTE Drug Contraindication: N/A - Med Ordered
[2024-06-27] MEDS: Morphine Sulfate 2 MG/ML CARTRIDGE IVPUSH (09:45)
[2024-06-27 09:48] LABS: Glucose, Whole Blood 144 mg/dL (60-115)
[2024-06-27] MEDS: Etomidate 20 MG/10 ML VIAL 10 MG IVPUSH (10:22)
--- NOTE | 2024-06-27 10:23 | PC.NURSE ---
Patient c/o difficulty breathing sitting up in a recliner chair,oxygen placed on at 2 l ,low Sat 87% on 2 l noticed increasing shortmess of breath,rapid response was called,Dr. Marcial at bedside aware of elevated BP,treatment given by respiratory therapist,Morphine administered by nurse discharge planner Cassie,patient transferred to ICU
[2024-06-27] MEDS: Rocuronium Bromide 50 MG/5 ML VIAL 100 MG IV (10:24)
[2024-06-27] MEDS: propofoL 1,000 MG/100 ML VIAL 13.7 MG IVCONT (10:27)
--- NOTE | 2024-06-27 10:43 | W.PM.CCHP ---
Procedures Date of Service Date of Service: 06/27/24 Intubation Consent for Procedure: Emergent-no informed consent obtained Time out performed: Yes Sedative: etomidate Mg given: 10 Paralytic: rocuronium Mg given: 100 Laryngoscope: Quentin ET tube size: 7.5 ET tube uncuffed: Yes Tube secured depth (cm): 33 Tube secured location: lips Tube placement confirmation: visualized tube passing through cords, equal breath sounds bilaterally, no breath sounds over epigastrium and confirmation by capnometry Patient tolerated procedure: well Intubation complications: none and other (awaiting chest x-ray)
--- NOTE | 2024-06-27 10:45 | PM.EVENT ---
Event Note Date of Service: 06/27/24 Event Note: Patient is a 83 Y F w/ COPD, hyperlipidemia, CAD s/p CABG, c/b CHF, paroxysmal atrial fibrillation not on anticoagulation, prior pseudomonas pneumonia, presenting initially to emergency department on 06/25 w/ cough, admitted medicine floor for presumptive pneumonia; on 06/27 AM, patient hypoxic, c/f aspiration; upon evaluation patient agitative, combative, not cooperative with any care; decision made to intubate urgently w/o appreciable immediate complications; plan to continue antibiotics, otherwise supportive care, very close monitoring; to repeat laboratories, obtain CT C, A, P when able Time Spent With Patient Time: Total time managing care of this patient today ____ minutes.
[2024-06-27 10:54] LABS: VBG Base Excess -1.7 mmol/L; VBG HCO3 21 mmol/L (22-26); VBG pCO2 33 mmHg; VBG pH 7.42 (7.32-7.43); VBG pO2 146 mmHg
[2024-06-27] MEDS: Tobramycin Sulfate 80 MG/2 ML VIAL 300 MG INHALE ×2 (11:13→19:33)
[2024-06-27 11:44] LABS: Anion Gap 14 (12-20); Carbon Dioxide 21 mmol/L (22-29); Chloride 107 mmol/L (96-108); Potassium 4.5 mmol/L (3.3-5.1); Sodium 137 mmol/L (135-145)
[2024-06-27 12:08] LABS: Blood Urea Nitrogen 35 mg/dL (9-16); Calcium 8.6 mg/dL (8.4-10.2); Creatinine Clr Calc Pharmacy 24.8; Estimated Glomerular Filt Rate 34; Glucose Random 293 mg/dL (60-115); Magnesium 2.1 mg/dL (1.6-2.6); Phosphorus 4.8 mg/dL (2.7-4.5)
[2024-06-27] MEDS: Norepinephrine Bitartrate/D5W 8 MG/250 ML PLAST..BAG 7.13 MG IVCONT (12:11)
--- NOTE | 2024-06-27 12:54 | PC.NURSE ---
pt's wedding ring and bracelet given to son-in-law Gregorio. Exchange witnessed by Pt's daughter's brother, also named Gregorio.
[2024-06-27 13:26] LABS: Glucose, Whole Blood 211 mg/dL (60-115)
[2024-06-27 13:59] LABS: Venous Blood Gas Refer to POC result
[2024-06-27 14:00] LABS: VBG Base Excess 0.6 mmol/L; VBG HCO3 23 mmol/L (22-26); VBG pCO2 32 mmHg; VBG pH 7.47 (7.32-7.43); VBG pO2 127 mmHg
[2024-06-27] MEDS: fentaNYL citrate/NS 1,000 MCG/100 ML PLAST..BAG 7.5 MCG IVCONT (14:13)
[2024-06-27] MEDS: propofoL 1,000 MG/100 ML VIAL 22.83 MG IVCONT ×2 (15:01→19:15)
[2024-06-27] MEDS: iohexoL 350 MG/ML 75 ML INFUS..BTL 85 ML IV (15:44)
[2024-06-27] MEDS: Enoxaparin Sodium 30 MG/0.3 ML SYRINGE SUBCUT (15:53)
[2024-06-27] MEDS: Furosemide 20 MG/2 ML VIAL 10 MG IVPUSH (16:17)
[2024-06-27] MEDS: Chlorhexidine Gluc Oral Rinse 15 ML MOUTHWASH BUCCAL ×2 (16:18→22:13)
[2024-06-27] MEDS: vancomycin/NS 2,000 MG/500 ML PLAST..BAG 250 MG IV (17:19)
--- NOTE | 2024-06-27 17:59 | PHA.PROG ---
Admission Date/Time: June 25, 2024 20:16 Indication: RESP Weight in k.1 kg Serum Creatinine - Last 168 Hours 06/25/24 06/26/24 06/27/24 14:14 04:39 05:30 Creatinine 1.47 H 1.51 H 1.35 06/27/24 10:50 Creatinine 1.47 H Estimated CrCl and GFR - Last 168 Hours 06/25/24 06/26/24 06/27/24 14:14 04:39 05:30 Estim Creat Clear Calc 31.5 30.6 27.0 Estimated GFR 34 33 37 06/27/24 10:50 Estim Creat Clear Calc 24.8 Estimated GFR 34 Vancomycin Loading Dose: 2000 Current Vancomycin Dosing Regimen: 750 Q 24H Vancomycin Monitoring using AUC goal of 400 - 600 range with trough as surrogate marker: 465 Date and Time for next Vancomycin Level to be drawn: 06/29 @ 1500 Pharmacist Comments on Vancomycin Plan: Vancomycin dosing will take advantage of [employer] as a clinical decision support tool that uses Bayesian modeling to calculate individual patient's pharmacokinetic parameters and forecast the patient's drug concentration time course with the target goal AUC 24 range of 400 - 600 mg/L/hr.
[2024-06-27 18:23] LABS: Glucose, Whole Blood 273 mg/dL (60-115)
[2024-06-27 18:49] LABS: Anion Gap 14 (12-20); Blood Urea Nitrogen 31 mg/dL (9-16); Calcium 8.4 mg/dL (8.4-10.2); Carbon Dioxide 21 mmol/L (22-29); Chloride 108 mmol/L (96-108); Creatinine Clr Calc Pharmacy 25.2; Estimated Glomerular Filt Rate 34; Glucose Random 290 mg/dL (60-115); Magnesium 2.4 mg/dL (1.6-2.6); Phosphorus 2.8 mg/dL (2.7-4.5); Potassium 5.6 mmol/L (3.3-5.1); Sodium 137 mmol/L (135-145)
--- NOTE | 2024-06-27 19:08 | HO.SKINPHOTO ---
Location:L breast Category: Stage: Length: Width: Depth: cm Location: Category: Stage: Length: Width: Depth: cm coccyx Location: Category: Stage: Length: Width: Depth: cm Location: Category: Stage: Length: Width: Depth: cm Location: Category: Stage: Length: Width: Depth: cm Location: Category: Stage: Length: Width: Depth: cm
[2024-06-27] MEDS: Atorvastatin Calcium 40 MG TABLET PO (22:13)
[2024-06-27] MEDS: DOPamine HCL/D5W 400 MG/250 ML PLAST..BAG 14.27 MG IVCONT (22:15)
[2024-06-27 23:37] LABS: Glucose, Whole Blood 191 mg/dL (60-115)
[2024-06-28] VITALS (40 sets, daily range): BP systolic 98–146; BP diastolic 42–84; PULSE 49–114; RESP 15–30; TEMP 34.8–38; O2SAT 88–100; BMI 33.9
--- NOTE | 2024-06-28 | ECG_ITS ---
Test Reason : PONDT Blood Pressure : */* mmHG Vent. Rate : 63 BPM Atrial Rate : * BPM P-R Int : * ms QRS Dur : 80 ms QT Int : 452 ms P-R-T Axes : * 34 128 degrees QTcB Int : 462 ms Atrial tachycardia with variable conduction ST & T wave abnormality, consider anterolateral ischemia Abnormal ECG When compared to the previous EKG of Vent. rate has decreased Referred By: Lulu France Electronically Signed By: MAKEDA BREAUX MD
[2024-06-28] MEDS: Insulin Lispro 100 UNIT/ML 3 ML VIAL SUBCUT ×3 (00:17→18:05)
[2024-06-28] MEDS: propofoL 1,000 MG/100 ML VIAL 13.7 MG IVCONT ×2 (00:17→08:20)
--- NOTE | 2024-06-28 01:53 | ECG_ITS ---
Test Reason : Bradycardic, ? Heart block Blood Pressure : */* mmHG Vent. Rate : 55 BPM Atrial Rate : * BPM P-R Int : * ms QRS Dur : 78 ms QT Int : 492 ms P-R-T Axes : * 31 122 degrees QTcB Int : 470 ms Atrial tachycardia with slow ventricular response Possible Anterior infarct , age undetermined ST & T wave abnormality, consider lateral ischemia Abnormal ECG When compared to the previous EKG of Vent. rate has decreased Referred By: Lulu France Electronically Signed By: MAKEDA BREAUX MD
[2024-06-28] MEDS: fentaNYL citrate/NS 1,000 MCG/100 ML PLAST..BAG 5 MCG IVCONT (04:43)
[2024-06-28] MEDS: Pantoprazole Sodium 40 MG/10 ML VIAL IVPUSH (04:44)
[2024-06-28 04:56] LABS: VBG Base Excess 3.4 mmol/L; VBG HCO3 25 mmol/L (22-26); VBG pCO2 30 mmHg; VBG pH 7.53 (7.32-7.43); VBG pO2 57 mmHg
[2024-06-28 05:39] LABS: MANUAL DIFF FLAG NO
[2024-06-28 05:43] LABS: Basophils Absolute Auto 0.1 X10*3/uL (0.0-0.2); Basophils Percent Auto 0.3 % (0-2); Eosinophils Absolute Auto 0.1 X10*3/uL (0.0-0.4); Eosinophils Percent Auto 0.3 % (0-4); Hematocrit 31.5 % (37.0-47.0); Hemoglobin 10.8 g/dl (12.0-16.0); Imm Gran Abs Auto 0.75 X10*3/uL (0.00-0.03); Imm Gran Pct Auto 3.6 % (0.0-0.4); Lymphocytes Absolute Auto 1.9 X10*3/uL (1.2-4.9); Lymphocytes Percent Auto 8.9 % (20-40); Mean Corpuscular HGB Conc 34.3 g/dl (31.0-35.0); Mean Corpuscular Hemoglobin 32.3 pg (27.0-33.0); Mean Corpuscular Volume 94.3 fL (80.0-98.0); Mean Platelet Volume 11.1 fL (9.4-12.3); Monocytes Absolute Auto 1.3 X10*3/uL (0.1-1.2); NRBC Pct Auto 0.2 /100WBC (0.0-0.2); Neutrophils Percent Auto 80.9 % (45-73); Platelet Count 147 X10*3/uL (160-400); Red Blood Count 3.34 X10*6/uL (4.20-5.50); Red Cell Distribution Width 15.3 % (11.0-16.0)
[2024-06-28 06:23] LABS: Anion Gap 14 (12-20); Blood Urea Nitrogen 31 mg/dL (9-16); Calcium 8.1 mg/dL (8.4-10.2); Carbon Dioxide 22 mmol/L (22-29); Chloride 111 mmol/L (96-108); Creatinine Clr Calc Pharmacy 26.1; Estimated Glomerular Filt Rate 36; Glucose Random 118 mg/dL (60-115); Magnesium 2.2 mg/dL (1.6-2.6); Phosphorus 2.7 mg/dL (2.7-4.5); Potassium 4.2 mmol/L (3.3-5.1); Sodium 143 mmol/L (135-145)
[2024-06-28 06:26] LABS: Venous Blood Gas Refer to POC result
[2024-06-28] MEDS: Tobramycin Sulfate 80 MG/2 ML VIAL 300 MG INHALE ×2 (07:29→20:22)
[2024-06-28] MEDS: methylPREDNISolone Sod Succ 40 MG/ML VIAL IVPUSH (08:21)
[2024-06-28] MEDS: 0.9 % Sodium Chloride Flush 3 ML SYRINGE IVFLUSH ×3 (08:25→22:27)
[2024-06-28] MEDS: Piperacillin Sodium/Tazobactam 4.5 GM in 0.9 % Sodium Chloride 100 ML IV ×3 (08:25→22:27)
[2024-06-28] MEDS: Chlorhexidine Gluc Oral Rinse 15 ML MOUTHWASH BUCCAL (08:26)
[2024-06-28] MEDS: Aspirin Enteric Coated 81 MG TABLET.DR PO (08:26)
--- NOTE | 2024-06-28 08:39 | P.PNCC_ITS ---
Subjective Subjective Date of Service: 06/28/24 Critical Care Time (minutes): 60 Physical Exam 2 Vital Signs: Vital Signs: Last Vital Signs Temp 100 F 06/28/24 08:00 Pulse 100 06/28/24 08:12 Resp 28 H 06/28/24 08:00 BP 125/74 06/28/24 08:12 Pulse Ox 92 06/28/24 08:00 O2 Del Method Mechanical Ventil ation 06/28/24 08:00 O2 Flow Rate 2 06/27/24 12:06 FiO2 24 06/28/24 08:15 BMI result Body Mass Index 33.9 Const: Other: intubated, minimally sedated; opens eyes, responds to verbal stimulus, follows some commands General: no acute distress, well developed, alert and Physically active HEENT: Head: Yes normal to inspection, Yes normocephalic and Yes atraumatic Eyes: General: appearance normal, both eyes and all related structures Neck: Neck: Yes normal visual inspection, Yes full ROM, Yes no meningeal signs, Yes trachea midline and Yes supple Chest: Chest palpation & inspection: normal inspection of the chest Resp: Other: no appreciable rales, rhonchi, wheezing Effort & Inspection: normal respiratory effort Cardio: Rate: regular rate Rhythm: regular rhythm GI: Inspection: Yes normal to inspection, No Abdominal wall edema and No distended Palpation (GI): Soft to palpation, not firm, nontender, no guarding and not rigid Skin: General skin exam: no rashes or lesions noted Neuro: General: tone normal, moves all extremities and no meningeal signs Extrem: General: Yes normal to inspection, Yes full ROM, Yes capillary refill normal and Yes no clubbing, cyanosis or edema Psych: Other: intermittent agitation Objective Data Labs 06/28/24 04:49 06/28/24 04:49 Labs: Laboratory Results - last 24 hr 06/27/24 06/27/24 06/27/24 09:44 10:43 10:50 WBC RBC Hgb Hct MCV MCH MCHC RDW Plt Count MPV Immature Gran % (Auto) Neut % (Auto) Lymph % (Auto) [place] % (Auto) Eos % (Auto) Baso % (Auto) Lymph # (Auto) [place] # (Auto) Eos # (Auto) Baso # (Auto) Abs Immat Gran (auto) Absolute Neuts (auto) Absolute Nucleated RBC Nucleated RBC % (auto) VBG pH 7.42 VBG pCO2 33 VBG pO2 146 VBG HCO3 21 L VBG O2 Saturation 100.0 VBG Base Excess -1.7 Sodium 137 Potassium 4.5 Chloride 107 Carbon Dioxide 21 L Anion Gap 14 BUN 35 H Creatinine 1.47 H Estim Creat Clear Calc 24.8 Estimated GFR 34 POC Glucose 144 H Random Glucose 293 H Calcium 8.6 Phosphorus 4.8 H Magnesium 2.1 06/27/24 06/27/24 06/27/24 13:22 13:54 18:16 WBC RBC Hgb Hct MCV MCH MCHC RDW Plt Count MPV Immature Gran % (Auto) Neut % (Auto) Lymph % (Auto) [place] % (Auto) Eos % (Auto) Baso % (Auto) Lymph # (Auto) [place] # (Auto) Eos # (Auto) Baso # (Auto) Abs Immat Gran (auto) Absolute Neuts (auto) Absolute Nucleated RBC Nucleated RBC % (auto) VBG pH 7.47 H VBG pCO2 32 VBG pO2 127 VBG HCO3 23 VBG O2 Saturation 100.0 VBG Base Excess 0.6 Sodium 137 Potassium 5.6 H D Chloride 108 Carbon Dioxide 21 L Anion Gap 14 BUN 31 H Creatinine 1.45 H Estim Creat Clear Calc 25.2 Estimated GFR 34 POC Glucose 211 H 273 H Random Glucose 290 H Calcium 8.4 Phosphorus 2.8 Magnesium 2.4 06/27/24 06/28/24 06/28/24 23:34 04:44 04:49 WBC 21.0 H RBC 3.34 L Hgb 10.8 L Hct 31.5 L MCV 94.3 MCH 32.3 MCHC 34.3 RDW 15.3 Plt Count 147 L D MPV 11.1 Immature Gran % (Auto) 3.6 H Neut % (Auto) 80.9 H Lymph % (Auto) 8.[address] [place] % (Auto) 6.0 Eos % (Auto) 0.3 Baso % (Auto) 0.3 Lymph # (Auto) 1.9 [place] # (Auto) 1.3 H Eos # (Auto) 0.1 Baso # (Auto) 0.1 Abs Immat Gran (auto) 0.75 H Absolute Neuts (auto) 17.0 H Absolute Nucleated RBC 0.050 H Nucleated RBC % (auto) 0.2 VBG pH 7.53 H VBG pCO2 30 VBG pO2 57 VBG HCO3 25 VBG O2 Saturation 90.0 VBG Base Excess 3.4 Sodium 143 Potassium 4.2 D Chloride 111 H Carbon Dioxide 22 Anion Gap 14 BUN 31 H Creatinine 1.40 Estim Creat Clear Calc 26.1 Estimated GFR 36 POC Glucose 191 H Random Glucose 118 H Calcium 8.1 L Phosphorus 2.7 Magnesium 2.2 Microbiology Microbiology Results: Microbiology 06/25/24 15:33 Blood - Venous Blood Culture - Preliminary No growth after 48 hours. 06/25/24 15:33 Blood - Venous Blood Culture - Preliminary No growth after 48 hours. 06/25/24 17:20 Sputum - Expectorated Gram Stain - Final 06/25/24 17:20 Sputum - Expectorated Sputum Culture - Final Progress Note: A&P Assessment and plan (1) Acute respiratory failure with hypoxia: Status: Acute (2) Aspiration pneumonia: Status: Acute (3) COPD (chronic obstructive pulmonary disease): Status: Acute Plan Patient is a 83 Y F w/ dementia, COPD, hyperlipidemia, CAD s/p CABG, c/b CHF, paroxysmal atrial fibrillation not on anticoagulation, prior pseudomonas pneumonia, presenting initially to emergency department on 06/25 w/ cough, admitted medicine floor for presumptive pneumonia; on 06/27 AM, patient hypoxic, c/f aspiration, intubated N: intubated, sedated w/ propofol, fentanyl gtt, wean as tolerated CV: no acute issues R: acute hypoxic respiratory failure, likely multi-factorial d/t pneumonia, COPD; wean ventilator as tolerated GI: no acute issues : no acute issues; to monitor renal indices, electrolytes closely H: leukocytosis, thrombocytopenia, likely reactive, to monitor; chemical DVT prophylaxis w/ enoxaparin ID: c/f pneumonia, empiric vancomycin, zosyn; to follow-up BCx 09/23 E: to monitor hypo-/hyper-glycemia P: no acute issues Quality Stroke Does the patient have a stroke diagnosis?: No VTE Prior VTE?: No VTE Risk Level:: Medical - moderate - high VTE Device Contraindication: Treatment Not Indicated VTE Drug Contraindication: N/A - Med Ordered
[2024-06-28] MEDS: Calcium Gluconate/NaCl,Iso-Osm 1 GM/50 ML PLAST..BAG IV (08:58)
--- NOTE | 2024-06-28 10:08 | MHC.CLN ---
PT IS INTUBATED AND SEDATED CURRENTLY NPO IF TF NEEDED; RECOMMEND PROMOTE TF AT MAX GOAL RATE 35ML/HR WITH 240ML FREE WATER Q 8 HRS TO PROVIDE 840CKALS (1202KCALS WITH SEDATION; 22KCALS/KG), 53G PROTEIN (.97G/KG), 1425ML TOTAL WATER FROM FORMULA AND FLUSHES (26ML/KG) MONITOR TOLERANCE AND LYTES SEE ALSO FULL CLINICAL NUTRITION ASSESSMENT
--- NOTE | 2024-06-28 11:28 | MHC.CM.PN ---
Pt remains on ventilatory support in ICU: extubation attempts dependent on weaning progress today: Pt from home with / family support : was independent w/self care. CM to follow for possible VNA or STR needs
[2024-06-28 13:18] LABS: Glucose, Whole Blood 257 mg/dL (60-115)
[2024-06-28] MEDS: Enoxaparin Sodium 30 MG/0.3 ML SYRINGE SUBCUT (13:43)
[2024-06-28] MEDS: vancomycin HCL 750 MG in 0.9 % Sodium Chloride 250 ML 265 MG IV (16:50)
[2024-06-28 17:34] LABS: Glucose, Whole Blood 214 mg/dL (60-115)
--- NOTE | 2024-06-28 17:57 | MHC.SLORD ---
Speech Language Pathology Order Status: Received order for bedside swallow eval. Patient is intubated and sedated- SPORTS COORDINATOR eval deferred 24 hours post-extubation. Notified MD via [employer] secure text.
[2024-06-28] MEDS: HYDROmorphone HCl 0.5 MG/0.5 ML SYRINGE IVPUSH ×2 (19:26→23:58)
[2024-06-29] VITALS (23 sets, daily range): BP systolic 139–186; BP diastolic 77–95; PULSE 20–106; RESP 15–32; TEMP 36.3–37.4; O2SAT 92–98; BMI 34.0
[2024-06-29 00:31] LABS: Glucose, Whole Blood 95 mg/dL (60-115)
[2024-06-29 05:39] LABS: VBG Base Excess 2.3 mmol/L; VBG HCO3 25 mmol/L (22-26); VBG pCO2 32 mmHg; VBG pH 7.49 (7.32-7.43); VBG pO2 116 mmHg
[2024-06-29 05:52] LABS: Venous Blood Gas Refer to POC result
[2024-06-29 05:54] LABS: Basophils Absolute Auto 0.1 X10*3/uL (0.0-0.2); Basophils Percent Auto 0.3 % (0-2); Eosinophils Absolute Auto 0.1 X10*3/uL (0.0-0.4); Eosinophils Percent Auto 0.7 % (0-4); Hematocrit 31.6 % (37.0-47.0); Hemoglobin 10.9 g/dl (12.0-16.0); Imm Gran Abs Auto 0.36 X10*3/uL (0.00-0.03); Imm Gran Pct Auto 2.5 % (0.0-0.4); Lymphocytes Absolute Auto 1.4 X10*3/uL (1.2-4.9); Lymphocytes Percent Auto 9.8 % (20-40); MANUAL DIFF FLAG SCAN; Mean Corpuscular HGB Conc 34.5 g/dl (31.0-35.0); Mean Corpuscular Hemoglobin 32.2 pg (27.0-33.0); Mean Corpuscular Volume 93.5 fL (80.0-98.0); Monocytes Absolute Auto 0.7 X10*3/uL (0.1-1.2); NRBC Pct Auto 0.3 /100WBC (0.0-0.2); Neutrophils Absolute Auto 11.8 x10*3/uL (2.0-8.3); Neutrophils Percent Auto 81.7 % (45-73); PLT CLUMP 1; Red Blood Count 3.38 X10*6/uL (4.20-5.50); Red Cell Distribution Width 15.7 % (11.0-16.0); SCAN SMEAR FLAG 1
[2024-06-29 06:21] LABS: Mean Platelet Volume 11.2 fL (9.4-12.3); Platelet Count 117 X10*3/uL (160-400); SLIDE REVIEW VERIFIED; White Blood Count 14.5 X10*3/uL (4.8-10.8)
[2024-06-29 06:25] LABS: Anion Gap 17 (12-20); Blood Urea Nitrogen 28 mg/dL (9-16); Calcium 8.6 mg/dL (8.4-10.2); Carbon Dioxide 20 mmol/L (22-29); Chloride 114 mmol/L (96-108); Creatinine Clr Calc Pharmacy 26.4; Estimated Glomerular Filt Rate 36; Glucose Random 86 mg/dL (60-115); Magnesium 2.6 mg/dL (1.6-2.6); Phosphorus 3.6 mg/dL (2.7-4.5); Potassium 4.5 mmol/L (3.3-5.1); Sodium 146 mmol/L (135-145)
[2024-06-29] MEDS: Piperacillin Sodium/Tazobactam 4.5 GM in 0.9 % Sodium Chloride 100 ML IV ×3 (06:40→23:05)
[2024-06-29] MEDS: Tobramycin Sulfate 80 MG/2 ML VIAL 300 MG INHALE ×2 (07:44→19:32)
[2024-06-29] MEDS: 0.9 % Sodium Chloride Flush 3 ML SYRINGE IVFLUSH ×2 (07:59→23:08)
--- NOTE | 2024-06-29 08:48 | HO.PM.IMPN ---
Subjective Subjective Date of Service: 06/29/24 Interval History: Pt seen and examoined, labs, medication and imaging reviewed. 83 year ofld female with h/o copd with chronic respiratory failure on home O2, she was admitted on 06/25 and on 06/27 had rapid response d/t respiratory failure and required intubation in the icu, extubated the next day and transferred out of the icu early this morning and seems to be doing better, she awake alert, no respiratory distress, she is suroude by her daughter who is requesting a troponin i test to be done to see if there is any damage done to her heart Physical Exam Vital Signs: Vital Signs: Last Vital Signs Temp 97.3 F 06/29/24 03:00 Pulse 98 06/29/24 07:59 Resp 23 H 06/29/24 07:59 BP 159/82 H 06/29/24 07:59 Pulse Ox 96 06/29/24 07:59 O2 Del Method Nasal Cannula 06/29/24 07:59 O2 Flow Rate 1 06/29/24 07:59 FiO2 24 06/28/24 12:00 BMI result Body Mass Index 34.0 Const: Other: General: Awake and alert, no distress Resp: CTA bilateral CVS: S1,S2,RRR GI: +BS, NT, no distention Skin: No rash Neuro: motor grossly intact Psych: appropriate affect Objective Data Active Medications Acetaminophen (Acetaminophen 325 Mg Tablet) 650 mg PO Q6H PRN PRN Reason: Pain, Mild 1-3,fever,headache Last Admin: 06/27/24 03:49 Dose: 650 mg Documented By: TOSHIA Aspirin (Aspirin Enteric Coated 81 Mg Tablet.) 81 mg PO DAILY [facility] Last Admin: 06/29/24 07:45 Dose: Not Given Documented By: ROSA Non-Admin Reason: NPO Atorvastatin Calcium (Atorvastatin Calcium 40 Mg Tablet) 40 mg PO BEDTIME [facility] Last Admin: 06/28/24 20:10 Dose: Not Given Documented By: ROBBIE Non-Admin Reason: NPO Atropine Sulfate (Atropine Sulfate 1 Mg/10 Ml Syringe) 1 mg IVPUSH ONCE PRN PRN Reason: Bradycardia Enoxaparin Sodium (Enoxaparin Sodium 30 Mg/0.3 Ml Syringe) 30 mg SUBCUT Q24H [facility] Last Admin: 06/28/24 13:43 Dose: 30 mg Documented By: RADHIKA Glucose (Glucose Gel 15 Gm Gel..Gram.) 15 gm PO Q15M PRN; Protocol PRN Reason: per Hypoglycemia Standing Ord. Hydromorphone HCl (Hydromorphone Hcl 0.5 Mg/0.5 Ml Syringe) 0.5 mg IVPUSH Q2H PRN; Protocol PRN Reason: Pain, Moderate(Pain Scale 4-6) Last Admin: 06/28/24 23:58 Dose: 0.5 mg Documented By: ROBBIE Piperacillin Sod/Tazobactam (Sod 4.5 gm/ Sodium Chloride) 100 mls @ 200 mls/hr IV Q8H [facility] Last Infusion: 06/29/24 07:11 Dose: Infused Documented By: ROBBIE Dextrose (D10) 250 mls @ 750 mls/hr IV Q15M PRN; Protocol PRN Reason: per Hypoglycemia Standing Ord. Vancomycin HCl 750 mg/ Sodium (Chloride) 265 mls @ 265 mls/hr IV Q24H [facility] Last Infusion: 06/28/24 18:36 Dose: Infused Documented By: RADHIKA Insulin Human Lispro (Insulin Lispro 100 Unit/Ml 3 Ml Vial) 0 unit SUBCUT Q6H [facility]; Protocol Last Admin: 06/29/24 07:00 Dose: Not Given Documented By: ROSA Non-Admin Reason: No Insulin Coverage Levalbuterol HCl (Levalbuterol Hcl 1.25 Mg/3 Ml Vial.Neb) 1.25 mg INHALE RQ4H PRN PRN Reason: Wheezing Lorazepam (Lorazepam 2 Mg/Ml Vial) 0.5 mg IVPUSH ONCE PRN PRN Reason: anxiety/restlessness Methylprednisolone Sodium Succinate (Methylprednisolone Sod Succ 40 Mg/Ml Vial) 40 mg IVPUSH Q24H [facility] Last Admin: 06/28/24 08:21 Dose: 40 mg Documented By: RADHIKA Patient Own Medication ( Umeclidinium- Vilanterol [Anoro Ellipta] 62.5-25 Mcg /Actuation Bl 1 each INHALE RDAILY [facility] Last Admin: 06/28/24 13:47 Dose: Not Given Documented By: RADHIKA Non-Admin Reason: pt previously intubated Nystatin (Nystatin Powder 15 Gm Bottle) 1 appl TOPICAL BID PRN; Protocol PRN Reason: Rash Ondansetron HCl (Ondansetron Hcl 4 Mg/2 Ml Vial) 4 mg IVPUSH Q8H PRN PRN Reason: Nausea and Vomiting Pantoprazole Sodium (Pantoprazole Sodium 40 Mg/10 Ml Vial) 40 mg IVPUSH DAILY@0630 [facility] Last Admin: 06/29/24 06:40 Dose: Not Given Documented By: ROBBIE Non-Admin Reason: Patient Refused Pharmacy Consult (Consult Rx Vancomycin Dosing) 1 each MISCELLANE DAILY PRN PRN Reason: Consult order Sodium Chloride (0.9 % Sodium Chloride Flush 3 Ml Syringe) 3 ml IVFLUSH QSHIFT [facility] Last Admin: 06/29/24 07:59 Dose: 3 ml Documented By: ROSA Tobramycin Sulfate (Tobramycin Sulfate 80 Mg/2 Ml Vial) 300 mg INHALE RBID [facility] Last Admin: 06/29/24 07:44 Dose: 300 mg Documented By: KAY Labs 06/29/24 05:29 06/29/24 05:29 Labs: Laboratory Results - last 24 hr 06/28/24 06/28/24 06/29/24 13:10 17:31 00:12 MCV MCH MCHC RDW Plt Count MPV Immature Gran % (Auto) Neut % (Auto) Lymph % (Auto) [place] % (Auto) Eos % (Auto) Baso % (Auto) Lymph # (Auto) [place] # (Auto) Eos # (Auto) Baso # (Auto) Abs Immat Gran (auto) Absolute Neuts (auto) Absolute Nucleated RBC Nucleated RBC % (auto) Smear Tech's Comments VBG pH VBG pCO2 VBG pO2 VBG HCO3 VBG O2 Saturation VBG Base Excess Anion Gap Estim Creat Clear Calc Estimated GFR POC Glucose 257 H 214 H 95 Random Glucose Calcium Phosphorus Magnesium 06/29/24 06/29/24 05:28 05:29 MCV 93.5 MCH 32.2 MCHC 34.5 RDW 15.7 Plt Count 117 L MPV 11.2 Immature Gran % (Auto) 2.5 H Neut % (Auto) 81.7 H Lymph % (Auto) 9.8 L [place] % (Auto) 5.0 Eos % (Auto) 0.7 Baso % (Auto) 0.3 Lymph # (Auto) 1.4 [place] # (Auto) 0.7 Eos # (Auto) 0.1 Baso # (Auto) 0.1 Abs Immat Gran (auto) 0.36 H Absolute Neuts (auto) 11.8 H Absolute Nucleated RBC 0.040 H Nucleated RBC % (auto) 0.3 H Smear Tech's Comments VERIFIED VBG pH 7.49 H VBG pCO2 32 VBG pO2 116 VBG HCO3 25 VBG O2 Saturation 100.0 VBG Base Excess 2.3 Anion Gap 17 Estim Creat Clear Calc 26.4 Estimated GFR 36 POC Glucose Random Glucose 86 Calcium 8.6 D Phosphorus 3.6 Magnesium 2.6 Assessment and Plan (1) Severe sepsis: Status: Resolved Plan admitted on 06/15, 83yo F with COPD on prn O2, hx Pseudomonas PNA x2, hx C. diff, HFrEF [35-40%], pAF not on AC, CAD [hx CABG x4], dementia, and HLD presented with dyspnea and cough, admitted on 06/25 for sepsis due to PNA/COPD exacerbation, LIBRARY ACQUISITIONS TECHNICIAN called 06/27 for respiratory distress, transferred to ICU and intubated She was transfered out of the ICU on 06/28 acute/chronic hypoxic respiratory failure due to COPD exacerbation, intubated in icu, extubated and seems to be doing well -transition from solu-medrol to prednisone 40 with slow haily -continue bronchodilators by Neb -continue O2 with goal of O2 sat 88 to 92% -inhaled tobramycin for h/o Pseudomonas severe sepsis [lactic acidosis, thrombocytopenia] due to multifocal PNA - continue piperacillin-tazobactam started 06/25 due to hx Pseudomonas; follow BCx, transition to Levaquin or Augmentin at discharge - concern of aspiration: pt refused BUSINESS ETHICS PROFESSOR evaluation/therapy, however Mild hypernatremia--monitor mild hyperchloremic metabolic acidosis -monitor, avoid NS abd pain/distension - CT A/P 06/27, showed constipation -bowel regimen PRN CANDIDO - FENa 1.3 [indeterminate] but Cr improving with fluid resuscitation DM2 with hyperglycemia, new diagnosis - A1c 9.5, started basal-bolus insulin hx Cdiff - will give preventive PO vancomycin while on piperacillin-tazobactam pAF - continue metoprolol tartrate; not on anticoagulation due to hx major bleeding CAD - continue ASA, Imdur, metoprolol tartrate, atorvastatin dementia - quetiapine morbid obesity - diet/exercise counseling VTE ppx - enoxaparin dispo - TBD dispo: when better, daughter would like to take home Total time managing care of this patient today: 65 minutes. Quality Stroke Does the patient have a stroke diagnosis?: No VTE Prior VTE?: No VTE Risk Level:: Medical - moderate - high VTE Device Contraindication: Treatment Not Indicated VTE Drug Contraindication: N/A - Med Ordered
[2024-06-29] MEDS: methylPREDNISolone Sod Succ 40 MG/ML VIAL IVPUSH (09:38)
[2024-06-29 10:09] LABS: Troponin-I High Sensitivity 60.6 ng/L (<3.5-17.0)
[2024-06-29] MEDS: hydrALAZINE HCl 20 MG/ML VIAL 5 MG IVPUSH (10:13)
[2024-06-29] MEDS: levalbuterol HCL 1.25 MG/3 ML VIAL.NEB INHALE ×2 (10:52→16:23)
[2024-06-29 11:35] LABS: Glucose, Whole Blood 133 mg/dL (60-115)
--- NOTE | 2024-06-29 12:18 | MHC.SL.SWA ---
Speech Pathologist Impression: Risk of Aspiration, Oropharyngeal Dysphagia Risk of Aspiration Due to: Medically Fragile Hx of Recent Extubation Dysphasia Diet Status: Recc NPO with daily assessment to trial PO if pt status improves Liquid Consistency and Strategies for Safe Swallow: Liquid Intake Recommendation: NPO Solid Food Consistency: Dietary Recommendations: NPO Additional Modifications to Solid Foods: Recommend continue NPO at this time d/t overt s/s of aspiration with trace PO. Continue frequent oral care, moistened swabs for comfort. Oral Medication Intake: NPO Please contact the pharmacy regarding appropriate crushable or liquid drug formulations that are available whenever modified delivery is recommended. Supervision While Eating and Drinking for Safe Swallow: PO with MUMPS DEVELOPER Swallowing Recommended Treatments: Compens. Strategy Educat. Recommendation for Speech: Inpatient Speech Therapy Comment: Re-assess with PO trials daily M-F Frequency/Duration: M-F Date Range for Service Req: Timeline to reassess: PRN Orange Picker Machine Operator Clinican/Clinical Fellow: No Supervisory Statement: I have reviewed and agree with the student/clinical fellow's documentation: N/A Speech Language Pathologist: Rebekah Bagley M.A., CCC-MUMPS DEVELOPER
--- NOTE | 2024-06-29 12:22 | MHC.SL.SWA ---
Speech Pathologist Impression: Risk of Aspiration, Oropharyngeal Dysphagia Risk of Aspiration Due to: Medically Fragile Hx of Recent Extubation Dysphasia Diet Status: Recc NPO with daily assessment to trial PO if pt status improves Liquid Consistency and Strategies for Safe Swallow: Liquid Intake Recommendation: NPO Solid Food Consistency: Dietary Recommendations: NPO Additional Modifications to Solid Foods: Recommend continue NPO at this time d/t overt s/s of aspiration with trace PO. Continue frequent oral care, moistened swabs for comfort. Oral Medication Intake: NPO Please contact the pharmacy regarding appropriate crushable or liquid drug formulations that are available whenever modified delivery is recommended. Supervision While Eating and Drinking for Safe Swallow: PO with DEPUTY CLERK OF COURT Swallowing Recommended Treatments: Thermal Stimulation Gustatory Stimulation Compens. Strategy Educat. Recommendation for Speech: Inpatient Speech Therapy Modified Barium Swallow Study - Inpatient Comment: Re-assess with PO trials daily M-F. Patient would benefit from further assessment w/ MBSS if there is no improvement in her swallow. Frequency/Duration: M-F Date Range for Service Req: Timeline to reassess: PRN Instructor Warper Clinican/Clinical Fellow: No Supervisory Statement: I have reviewed and agree with the student/clinical fellow's documentation: N/A Speech Language Pathologist: Rebekah Bagley M.A., CCC-DEPUTY CLERK OF COURT
[2024-06-29] MEDS: Dextrose 5 % and Lactated Ring 1,000 ML 80 ML IVCONT (13:55)
[2024-06-29 15:40] LABS: Vancomycin Trough 16.9 mcg/mL (10.0-20.0)
--- NOTE | 2024-06-29 15:47 | HE.PHANOTE ---
Re: Mindio Poor renal function, but stable. Trough returned at 16.9, pt is therapeutic. Dose reduced b/c current dose would exceed AUC goal. Dose changed to 750mg q24h with predicted AUC 495, and predicted trough 16.4. Next trough 06/30 @1500.
[2024-06-29] MEDS: vancomycin HCL 750 MG in 0.9 % Sodium Chloride 250 ML 265 MG IV (16:20)
[2024-06-29] MEDS: Lactated Ringers 1,000 ML 80 ML IVCONT (16:20)
[2024-06-29] MEDS: [UNRECOGNIZED DRUG - OTHER] 1 EACH INHALE (16:30)
[2024-06-29 18:14] LABS: Glucose, Whole Blood 275 mg/dL (60-115)
[2024-06-29] MEDS: Insulin Lispro 100 UNIT/ML 3 ML VIAL SUBCUT (18:18)
[2024-06-29] MEDS: Metoprolol Tartrate 5 MG/5 ML VIAL 2.5 MG IVPUSH (20:19)
[2024-06-29 21:03] LABS: Strep Pneumo Ag urine Not Detected (Not Detected)
[2024-06-30] VITALS (12 sets, daily range): BP systolic 113–179; BP diastolic 72–100; PULSE 73–132; RESP 18–28; TEMP 36.2–37.2; O2SAT 89–98; BMI 34.6
[2024-06-30 00:25] LABS: Glucose, Whole Blood 156 mg/dL (60-115)
[2024-06-30] MEDS: Insulin Lispro 100 UNIT/ML 3 ML VIAL SUBCUT ×3 (00:37→18:19)
[2024-06-30] MEDS: Metoprolol Tartrate 5 MG/5 ML VIAL 2.5 MG IVPUSH ×4 (01:50→21:39)
[2024-06-30] MEDS: levalbuterol HCL 1.25 MG/3 ML VIAL.NEB INHALE ×2 (03:26→08:34)
[2024-06-30 04:48] LABS: Legionella Ag Urine Not Detected (Not Detected)
[2024-06-30] MEDS: Lactated Ringers 1,000 ML 80 ML IVCONT (05:10)
[2024-06-30] MEDS: Pantoprazole Sodium 40 MG/10 ML VIAL IVPUSH (05:31)
[2024-06-30 06:33] LABS: MANUAL DIFF FLAG NO
[2024-06-30 06:38] LABS: Venous Blood Gas Refer to POC result
[2024-06-30 06:39] LABS: VBG Base Excess 1.2 mmol/L; VBG HCO3 24 mmol/L (22-26); VBG pCO2 34 mmHg; VBG pH 7.45 (7.32-7.43); VBG pO2 54 mmHg
[2024-06-30 06:51] LABS: Anion Gap 15 (12-20); Blood Urea Nitrogen 25 mg/dL (9-16); Calcium 8.9 mg/dL (8.4-10.2); Carbon Dioxide 20 mmol/L (22-29); Chloride 118 mmol/L (96-108); Creatinine Clr Calc Pharmacy 30.8; Estimated Glomerular Filt Rate 43; Glucose Random 138 mg/dL (60-115); Magnesium 2.6 mg/dL (1.6-2.6); Phosphorus 2.9 mg/dL (2.7-4.5); Potassium 4.1 mmol/L (3.3-5.1); Sodium 149 mmol/L (135-145)
[2024-06-30 06:55] LABS: Basophils Percent Auto 0.3 % (0-2); Eosinophils Absolute Auto 0.1 X10*3/uL (0.0-0.4); Eosinophils Percent Auto 0.6 % (0-4); Hematocrit 32.3 % (37.0-47.0); Hemoglobin 10.6 g/dl (12.0-16.0); Imm Gran Abs Auto 0.44 X10*3/uL (0.00-0.03); Lymphocytes Absolute Auto 1.1 X10*3/uL (1.2-4.9); Lymphocytes Percent Auto 7.3 % (20-40); Mean Corpuscular HGB Conc 32.8 g/dl (31.0-35.0); Mean Corpuscular Hemoglobin 32.2 pg (27.0-33.0); Mean Corpuscular Volume 98.2 fL (80.0-98.0); Mean Platelet Volume 11.2 fL (9.4-12.3); Monocytes Absolute Auto 0.9 X10*3/uL (0.1-1.2); Monocytes Percent Auto 6.3 % (2-11); NRBC Pct Auto 0.3 /100WBC (0.0-0.2); Neutrophils Percent Auto 82.5 % (45-73); Platelet Count 116 X10*3/uL (160-400); Red Blood Count 3.29 X10*6/uL (4.20-5.50); Red Cell Distribution Width 15.9 % (11.0-16.0); White Blood Count 14.5 X10*3/uL (4.8-10.8)
[2024-06-30 07:05] LABS: Glucose, Whole Blood 119 mg/dL (60-115)
[2024-06-30] MEDS: Tobramycin Sulfate 80 MG/2 ML VIAL 300 MG INHALE ×2 (07:44→19:54)
[2024-06-30] MEDS: [UNRECOGNIZED DRUG - OTHER] 1 EACH INHALE (07:44)
[2024-06-30] MEDS: methylPREDNISolone Sod Succ 40 MG/ML VIAL IVPUSH (07:52)
[2024-06-30] MEDS: Furosemide 40 MG/4 ML VIAL IVPUSH ×2 (08:05→16:32)
[2024-06-30] MEDS: Piperacillin Sodium/Tazobactam 4.5 GM in 0.9 % Sodium Chloride 100 ML IV ×2 (08:08→15:38)
[2024-06-30] MEDS: 0.9 % Sodium Chloride Flush 3 ML SYRINGE IVFLUSH (08:18)
--- NOTE | 2024-06-30 09:11 | P.PNIM_ITS ---
Subjective Subjective Date of Service: 06/30/24 Interval History: sob Physical Exam 2 Vital Signs: Vital Signs: Last Vital Signs Temp 97.1 F 06/30/24 08:00 Pulse 108 H 06/30/24 08:34 Resp 28 H 06/30/24 08:34 BP 147/79 H 06/30/24 04:00 Pulse Ox 93 06/30/24 08:00 O2 Del Method Room Air 06/30/24 08:00 O2 Flow Rate 1 06/29/24 09:56 FiO2 24 06/28/24 12:00 BMI result Body Mass Index 34.6 tachypneic, accessory muscles, poor air movement, tachy Objective Data Active Medications Acetaminophen (Acetaminophen 325 Mg Tablet) 650 mg PO Q6H PRN PRN Reason: Pain, Mild 1-3,fever,headache Last Admin: 06/27/24 03:49 Dose: 650 mg Documented By: TOSHIA Aspirin (Aspirin Enteric Coated 81 Mg Tablet.Dr) 81 mg PO DAILY [facility] Last Admin: 06/30/24 08:18 Dose: Not Given Documented By: LÁZARO Non-Admin Reason: NPO Atorvastatin Calcium (Atorvastatin Calcium 40 Mg Tablet) 40 mg PO BEDTIME [facility] Last Admin: 06/29/24 20:19 Dose: Not Given Documented By: LYDIA Non-Admin Reason: NPO Atropine Sulfate (Atropine Sulfate 1 Mg/10 Ml Syringe) 1 mg IVPUSH ONCE PRN PRN Reason: Bradycardia Enoxaparin Sodium (Enoxaparin Sodium 30 Mg/0.3 Ml Syringe) 30 mg SUBCUT Q24H [facility] Last Admin: 06/29/24 16:10 Dose: Not Given Documented By: LÁZARO Non-Admin Reason: Patient Refused Glucose (Glucose Gel 15 Gm Gel..Gram.) 15 gm PO Q15M PRN; Protocol PRN Reason: per Hypoglycemia Standing Ord. Hydralazine HCl (Hydralazine Hcl 20 Mg/Ml Vial) 5 mg IVPUSH Q4H PRN; Protocol PRN Reason: Hypertension Last Admin: 06/29/24 10:13 Dose: 5 mg Documented By: ROSA Hydromorphone HCl (Hydromorphone Hcl 0.5 Mg/0.5 Ml Syringe) 0.5 mg IVPUSH Q2H PRN; Protocol PRN Reason: Pain, Moderate(Pain Scale 4-6) Last Admin: 06/28/24 23:58 Dose: 0.5 mg Documented By: ROBBIE Piperacillin Sod/Tazobactam (Sod 4.5 gm/ Sodium Chloride) 100 mls @ 200 mls/hr IV Q8H [facility] Last Infusion: 06/30/24 08:38 Dose: Infused Documented By: LÁZARO Dextrose (D10) 250 mls @ 750 mls/hr IV Q15M PRN; Protocol PRN Reason: per Hypoglycemia Standing Ord. Vancomycin HCl 750 mg/ Sodium (Chloride) 265 mls @ 265 mls/hr IV Q24H [facility] Last Infusion: 06/29/24 17:25 Dose: Infused Documented By: LÁZARO Insulin Human Lispro (Insulin Lispro 100 Unit/Ml 3 Ml Vial) 0 unit SUBCUT Q6H [facility]; Protocol Last Admin: 06/30/24 05:36 Dose: Not Given Documented By: LYDIA Non-Admin Reason: No Insulin Coverage Levalbuterol HCl (Levalbuterol Hcl 1.25 Mg/3 Ml Vial.Neb) 1.25 mg INHALE RQ4H PRN PRN Reason: Wheezing Last Admin: 06/30/24 08:34 Dose: 1.25 mg Documented By: KAY Lorazepam (Lorazepam 2 Mg/Ml Vial) 0.5 mg IVPUSH ONCE PRN PRN Reason: anxiety/restlessness Methylprednisolone Sodium Succinate (Methylprednisolone Sod Succ 40 Mg/Ml Vial) 40 mg IVPUSH Q24H [facility] Last Admin: 06/30/24 07:52 Dose: 40 mg Documented By: LÁZARO Metoprolol Tartrate (Metoprolol Tartrate 5 Mg/5 Ml Vial) 2.5 mg IVPUSH Q6H [facility]; Protocol Last Admin: 06/30/24 07:51 Dose: 2.5 mg Documented By: LÁZARO Pt Own Med ( Umeclidinium- Vilanterol 62.5 - 25 Mcg [Anoro Ellipta] ) 1 each INHALE RDAILY [facility] Nystatin (Nystatin Powder 15 Gm Bottle) 1 appl TOPICAL BID PRN; Protocol PRN Reason: Rash Ondansetron HCl (Ondansetron Hcl 4 Mg/2 Ml Vial) 4 mg IVPUSH Q8H PRN PRN Reason: Nausea and Vomiting Pantoprazole Sodium (Pantoprazole Sodium 40 Mg/10 Ml Vial) 40 mg IVPUSH DAILY@0630 [facility] Last Admin: 06/30/24 05:31 Dose: 40 mg Documented By: LYDIA Pharmacy Consult (Consult Rx Vancomycin Dosing) 1 each MISCELLANE DAILY PRN PRN Reason: Consult order Sodium Chloride (0.9 % Sodium Chloride Flush 3 Ml Syringe) 3 ml IVFLUSH QSHIFT [facility] Last Admin: 06/30/24 08:18 Dose: 3 ml Documented By: LÁZARO Tobramycin Sulfate (Tobramycin Sulfate 80 Mg/2 Ml Vial) 300 mg INHALE RBID [facility] Last Admin: 06/30/24 07:44 Dose: 300 mg Documented By: KVNG Labs 06/30/24 06:27 06/30/24 06:27 Labs: Laboratory Results - last 24 hr 06/26/24 06/29/24 06/29/24 14:27 09:30 11:23 MCV MCH MCHC RDW Plt Count MPV Immature Gran % (Auto) Neut % (Auto) Lymph % (Auto) [place] % (Auto) Eos % (Auto) Baso % (Auto) Lymph # (Auto) [place] # (Auto) Eos # (Auto) Baso # (Auto) Abs Immat Gran (auto) Absolute Neuts (auto) Absolute Nucleated RBC Nucleated RBC % (auto) VBG pH VBG pCO2 VBG pO2 VBG HCO3 VBG O2 Saturation VBG Base Excess Anion Gap Estim Creat Clear Calc Estimated GFR POC Glucose 133 H Random Glucose Calcium Phosphorus Magnesium Troponin I High Sens 60.6 H* D Vancomycin Trough Ur L.pneumophila Ag Not Detected Ur Strep pneumoniae Ag Not Detected 06/29/24 06/29/24 06/30/24 14:51 18:10 00:20 MCV MCH MCHC RDW Plt Count MPV Immature Gran % (Auto) Neut % (Auto) Lymph % (Auto) [place] % (Auto) Eos % (Auto) Baso % (Auto) Lymph # (Auto) [place] # (Auto) Eos # (Auto) Baso # (Auto) Abs Immat Gran (auto) Absolute Neuts (auto) Absolute Nucleated RBC Nucleated RBC % (auto) VBG pH VBG pCO2 VBG pO2 VBG HCO3 VBG O2 Saturation VBG Base Excess Anion Gap Estim Creat Clear Calc Estimated GFR POC Glucose 275 H 156 H Random Glucose Calcium Phosphorus Magnesium Troponin I High Sens Vancomycin Trough 16.9 Ur L.pneumophila Ag Ur Strep pneumoniae Ag 06/30/24 06/30/24 06/30/24 05:35 06:27 06:34 MCV 98.2 H MCH 32.2 MCHC 32.8 RDW 15.9 Plt Count 116 L MPV 11.2 Immature Gran % (Auto) 3.0 H Neut % (Auto) 82.5 H Lymph % (Auto) 7.3 L [place] % (Auto) 6.3 Eos % (Auto) 0.6 Baso % (Auto) 0.3 Lymph # (Auto) 1.1 L [place] # (Auto) 0.9 Eos # (Auto) 0.1 Baso # (Auto) 0.0 Abs Immat Gran (auto) 0.44 H Absolute Neuts (auto) 12.0 H Absolute Nucleated RBC 0.050 H Nucleated RBC % (auto) 0.3 H VBG pH 7.45 H VBG pCO2 34 VBG pO2 54 VBG HCO3 24 VBG O2 Saturation 84.0 VBG Base Excess 1.2 Anion Gap 15 Estim Creat Clear Calc 30.8 Estimated GFR 43 POC Glucose 119 H Random Glucose 138 H Calcium 8.9 Phosphorus 2.9 Magnesium 2.6 Troponin I High Sens Vancomycin Trough Ur L.pneumophila Ag Ur Strep pneumoniae Ag Assessment and Plan (1) Congestive heart failure: Status: Acute Plan 83F PMH COPD on p.r.n. O2, history of Pseudomonas pneumonia, history of C diff, HFrEF with EF of 35-40%, paroxysmal atrial fibrillation no longer on anticoagulation, coronary artery disease status post CABG, dementia, hyperlipidemia admitted on 06/25/2024 with sepsis due to pneumonia and COPD exacerbation, rapid response on 06/27/2024 for respiratory distress patient intubated transferred to ICU then extubated and downgraded on 06/28/2024. Acute on chronic hypoxic respiratory failure due to COPD with acute decompensation Now extubated, on room air but in respiratory distress Continue DuoNebs, steroids, inhaled tobramycin Severe sepsis due to multifocal pneumonia Continue vancomycin and Zosyn Plan to transitioned to Levaquin and Augmentin on discharge Concern for aspiration, follow up speech, currently NPO Hypernatremia We will start D5W, monitor Acute on chronic systolic CHF IV Lasix, monitor Diabetes with hyperglycemia New diagnosis, started basal bolus insulin History of C diff Continue p.o. vanco for prophylaxis while on antibiotics Paroxysmal atrial fibrillation with rapid ventricular response Continue metoprolol, not on anticoagulation due to history of major bleed Coronary artery disease Restart aspirin and statin once taking p.o. Acute kidney injury Improving DVT prophylaxis with Lovenox Full Code reason for continued hospitalization: Respiratory distress Quality Stroke Does the patient have a stroke diagnosis?: No VTE Prior VTE?: No VTE Risk Level:: Medical - moderate - high VTE Device Contraindication: Treatment Not Indicated VTE Drug Contraindication: N/A - Med Ordered
[2024-06-30] MEDS: Dextrose 5 % 1,000 ML 75 ML IVCONT ×2 (09:42→22:58)
[2024-06-30] MEDS: Morphine Sulfate 2 MG/ML CARTRIDGE 1 MG IVPUSH (10:03)
[2024-06-30] MEDS: ondansetron HCL 4 MG/2 ML VIAL IVPUSH (10:16)
--- NOTE | 2024-06-30 10:54 | MHC.SL.SWA ---
Speech Pathologist Impression: Risk of Aspiration, Oropharyngeal Dysphagia Risk of Aspiration Due to: Medically Fragile Hx of Recent Extubation Dysphasia Diet Status: No Change Liquid Consistency and Strategies for Safe Swallow: Liquid Intake Recommendation: NPO Solid Food Consistency: Dietary Recommendations: NPO Additional Modifications to Solid Foods: Recommend continue NPO at this time d/t overt s/s of aspiration with trace PO. Continue frequent oral care, moistened swabs for comfort. Oral Medication Intake: NPO Please contact the pharmacy regarding appropriate crushable or liquid drug formulations that are available whenever modified delivery is recommended. Supervision While Eating and Drinking for Safe Swallow: PO with NUT BLANKER OPERATOR Swallowing Recommended Treatments: Thermal Stimulation Gustatory Stimulation Compens. Strategy Educat. Recommendation for Speech: Inpatient Speech Therapy Modified Barium Swallow Study - Inpatient Frequency/Duration: M-F Date Range for Service Req: Timeline to reassess: PRN Wood Engraver Clinican/Clinical Fellow: No Supervisory Statement: I have reviewed and agree with the student/clinical fellow's documentation: N/A Speech Language Pathologist: Rebekah Bagley M.A., CCC-NUT BLANKER OPERATOR
[2024-06-30 16:03] LABS: Vancomycin Random 17.6 mcg/mL (15-20)
[2024-06-30] MEDS: UMECLIDINIUM VILANTEROL 1 EACH INHALE (16:03)
--- NOTE | 2024-06-30 16:11 | HE.PHANOTE ---
Re: Giselle Renal function is improving. Trough returned at 17.6, pt is therapeutic. Continue current dose of 750mg q24h, with predicted AUC 477, predicted trough 15.7. Next trough 07/01 @ 1500.
[2024-06-30] MEDS: vancomycin HCL 750 MG in 0.9 % Sodium Chloride 250 ML 265 MG IV (16:30)
[2024-06-30 17:02] LABS: Glucose, Whole Blood 275 mg/dL (60-115)
[2024-06-30 18:11] LABS: Glucose, Whole Blood 307 mg/dL (60-115)
[2024-07-01] VITALS (12 sets, daily range): BP systolic 110–175; BP diastolic 62–87; PULSE 68–96; RESP 16–102; TEMP 36–36.7; O2SAT 93–98; BMI 32.3
[2024-07-01] MEDS: Piperacillin Sodium/Tazobactam 4.5 GM in 0.9 % Sodium Chloride 100 ML IV ×4 (00:37→23:58)
[2024-07-01 00:55] LABS: Glucose, Whole Blood 237 mg/dL (60-115)
[2024-07-01] MEDS: Insulin Lispro 100 UNIT/ML 3 ML VIAL SUBCUT ×3 (01:06→18:23)
[2024-07-01] MEDS: Metoprolol Tartrate 5 MG/5 ML VIAL 2.5 MG IVPUSH ×4 (02:26→21:02)
[2024-07-01 06:13] LABS: Glucose, Whole Blood 125 mg/dL (60-115)
[2024-07-01] MEDS: UMECLIDINIUM VILANTEROL 1 EACH INHALE (07:41)
[2024-07-01] MEDS: Tobramycin Sulfate 80 MG/2 ML VIAL 300 MG INHALE ×2 (07:41→21:36)
[2024-07-01] MEDS: methylPREDNISolone Sod Succ 40 MG/ML VIAL IVPUSH (07:50)
[2024-07-01] MEDS: 0.9 % Sodium Chloride Flush 3 ML SYRINGE IVFLUSH ×3 (07:50→21:03)
[2024-07-01 09:07] LABS: MANUAL DIFF FLAG NO
[2024-07-01 09:11] LABS: Basophils Percent Auto 0.2 % (0-2); Eosinophils Absolute Auto 0.1 X10*3/uL (0.0-0.4); Eosinophils Percent Auto 1.2 % (0-4); Hematocrit 30.1 % (37.0-47.0); Imm Gran Abs Auto 0.13 X10*3/uL (0.00-0.03); Imm Gran Pct Auto 1.1 % (0.0-0.4); Lymphocytes Absolute Auto 1.2 X10*3/uL (1.2-4.9); Lymphocytes Percent Auto 9.8 % (20-40); Mean Corpuscular HGB Conc 33.2 g/dl (31.0-35.0); Mean Corpuscular Hemoglobin 32.2 pg (27.0-33.0); Mean Corpuscular Volume 96.8 fL (80.0-98.0); Mean Platelet Volume 11.1 fL (9.4-12.3); Monocytes Absolute Auto 0.5 X10*3/uL (0.1-1.2); NRBC Pct Auto 0.3 /100WBC (0.0-0.2); Neutrophils Absolute Auto 9.9 x10*3/uL (2.0-8.3); Neutrophils Percent Auto 83.7 % (45-73); Platelet Count 109 X10*3/uL (160-400); Red Blood Count 3.11 X10*6/uL (4.20-5.50); Red Cell Distribution Width 15.6 % (11.0-16.0); White Blood Count 11.8 X10*3/uL (4.8-10.8)
[2024-07-01 09:16] LABS: VBG Base Excess 7.4 mmol/L; VBG HCO3 31 mmol/L (22-26); VBG pCO2 41 mmHg; VBG pH 7.48 (7.32-7.43); VBG pO2 81 mmHg
[2024-07-01 09:19] LABS: Venous Blood Gas Refer to POC result
[2024-07-01 09:27] LABS: Blood Urea Nitrogen 22 mg/dL (9-16); Creatinine Clr Calc Pharmacy 31.3; Estimated Glomerular Filt Rate 45; Glucose Random 126 mg/dL (60-115); Magnesium 2.1 mg/dL (1.6-2.6); Phosphorus 2.6 mg/dL (2.7-4.5)
[2024-07-01 09:28] LABS: B Type Natriuretic Peptide 654 pg/mL (<100)
[2024-07-01 09:35] LABS: Anion Gap 15 (12-20); Calcium 8.2 mg/dL (8.4-10.2); Carbon Dioxide 23 mmol/L (22-29); Chloride 107 mmol/L (96-108); Potassium 3.4 mmol/L (3.3-5.1); Sodium 142 mmol/L (135-145)
--- NOTE | 2024-07-01 09:35 | P.PNIM_ITS ---
Subjective Subjective Date of Service: 07/01/24 Interval History: sob much improved Physical Exam 2 Vital Signs: Vital Signs: Last Vital Signs Temp 96.9 F 07/01/24 08:00 Pulse 83 07/01/24 08:00 Resp 19 07/01/24 08:00 BP 144/64 H 07/01/24 08:00 Pulse Ox 97 07/01/24 08:00 O2 Del Method Room Air 07/01/24 08:00 O2 Flow Rate 1 06/29/24 09:56 FiO2 24 06/28/24 12:00 BMI result Body Mass Index 32.3 Alert oriented x3, much more comfortable appearing, no more accessory muscles used, still sounds tight with some expiratory wheezes Objective Data Active Medications Acetaminophen (Acetaminophen 325 Mg Tablet) 650 mg PO Q6H PRN PRN Reason: Pain, Mild 1-3,fever,headache Last Admin: 06/27/24 03:49 Dose: 650 mg Documented By: TOSHIA Aspirin (Aspirin Enteric Coated 81 Mg Tablet.) 81 mg PO DAILY [facility] Last Admin: 07/01/24 07:56 Dose: Not Given Documented By: LÁZARO Non-Admin Reason: NPO Atorvastatin Calcium (Atorvastatin Calcium 40 Mg Tablet) 40 mg PO BEDTIME [facility] Last Admin: 06/30/24 21:42 Dose: Not Given Documented By: OSMAN Non-Admin Reason: NPO Atropine Sulfate (Atropine Sulfate 1 Mg/10 Ml Syringe) 1 mg IVPUSH ONCE PRN PRN Reason: Bradycardia Enoxaparin Sodium (Enoxaparin Sodium 30 Mg/0.3 Ml Syringe) 30 mg SUBCUT Q24H [facility] Last Admin: 06/30/24 15:43 Dose: Not Given Documented By: LÁZARO Non-Admin Reason: Patient Refused Furosemide (Furosemide 40 Mg/4 Ml Vial) 40 mg IVPUSH DAILY [facility]; Protocol Glucose (Glucose Gel 15 Gm Gel..Gram.) 15 gm PO Q15M PRN; Protocol PRN Reason: per Hypoglycemia Standing Ord. Hydralazine HCl (Hydralazine Hcl 20 Mg/Ml Vial) 5 mg IVPUSH Q4H PRN; Protocol PRN Reason: Hypertension Last Admin: 06/29/24 10:13 Dose: 5 mg Documented By: ROSA Hydromorphone HCl (Hydromorphone Hcl 0.5 Mg/0.5 Ml Syringe) 0.5 mg IVPUSH Q2H PRN; Protocol PRN Reason: Pain, Moderate(Pain Scale 4-6) Last Admin: 06/28/24 23:58 Dose: 0.5 mg Documented By: ROBBIE Piperacillin Sod/Tazobactam (Sod 4.5 gm/ Sodium Chloride) 100 mls @ 200 mls/hr IV Q8H [facility] Last Infusion: 07/01/24 08:25 Dose: Infused Documented By: LÁZARO Dextrose (D10) 250 mls @ 750 mls/hr IV Q15M PRN; Protocol PRN Reason: per Hypoglycemia Standing Ord. Vancomycin HCl 750 mg/ Sodium (Chloride) 265 mls @ 265 mls/hr IV Q24H [facility] Last Infusion: 06/30/24 17:30 Dose: Infused Documented By: LÁZARO Dextrose (D5w) 1,000 mls @ 75 mls/hr IVCONT .[id number] [facility] Last Admin: 06/30/24 22:58 Dose: 75 mls/hr Documented By: OSMAN Insulin Human Lispro (Insulin Lispro 100 Unit/Ml 3 Ml Vial) 0 unit SUBCUT Q6H [facility]; Protocol Last Admin: 07/01/24 06:15 Dose: Not Given Documented By: OSMAN Non-Admin Reason: No Insulin Coverage Levalbuterol HCl (Levalbuterol Hcl 1.25 Mg/3 Ml Vial.Neb) 1.25 mg INHALE RQ4H PRN PRN Reason: Wheezing Last Admin: 06/30/24 08:34 Dose: 1.25 mg Documented By: KAY Lorazepam (Lorazepam 2 Mg/Ml Vial) 0.5 mg IVPUSH ONCE PRN PRN Reason: anxiety/restlessness Methylprednisolone Sodium Succinate (Methylprednisolone Sod Succ 40 Mg/Ml Vial) 40 mg IVPUSH Q24H [facility] Last Admin: 07/01/24 07:50 Dose: 40 mg Documented By: LÁZARO Metoprolol Tartrate (Metoprolol Tartrate 5 Mg/5 Ml Vial) 2.5 mg IVPUSH Q6H [facility]; Protocol Last Admin: 07/01/24 07:50 Dose: 2.5 mg Documented By: LÁZARO Morphine Sulfate (Morphine Sulfate 2 Mg/Ml Cartridge) 1 mg IVPUSH Q3H PRN; Protocol PRN Reason: work of breathing Last Admin: 06/30/24 10:03 Dose: 1 mg Documented By: LÁZARO Pt Own Med ( Umeclidinium- Vilanterol 62.5 - 25 Mcg [Anoro Ellipta] ) 1 each INHALE RDAILY [facility] Last Admin: 07/01/24 07:41 Dose: 1 each Documented By: HELLEN Nystatin (Nystatin Powder 15 Gm Bottle) 1 appl TOPICAL BID PRN; Protocol PRN Reason: Rash Ondansetron HCl (Ondansetron Hcl 4 Mg/2 Ml Vial) 4 mg IVPUSH Q8H PRN PRN Reason: Nausea and Vomiting Last Admin: 06/30/24 10:16 Dose: 4 mg Documented By: LÁZARO Pantoprazole Sodium (Pantoprazole Sodium 40 Mg/10 Ml Vial) 40 mg IVPUSH DAILY@0630 [facility] Last Admin: 07/01/24 06:15 Dose: Not Given Documented By: OSMAN Non-Admin Reason: Patient Refused Pharmacy Consult (Consult Rx Vancomycin Dosing) 1 each MISCELLANE DAILY PRN PRN Reason: Consult order Sodium Chloride (0.9 % Sodium Chloride Flush 3 Ml Syringe) 3 ml IVFLUSH QSHIFT [facility] Last Admin: 07/01/24 07:50 Dose: 3 ml Documented By: LÁZARO Tobramycin Sulfate (Tobramycin Sulfate 80 Mg/2 Ml Vial) 300 mg INHALE RBID [facility] Last Admin: 07/01/24 07:41 Dose: 300 mg Documented By: HELLEN Labs 07/01/24 09:05 07/01/24 09:05 Labs: Laboratory Results - last 24 hr 06/30/24 06/30/24 06/30/24 12:45 14:54 18:04 MCV MCH MCHC RDW Plt Count MPV Immature Gran % (Auto) Neut % (Auto) Lymph % (Auto) Trinity % (Auto) Eos % (Auto) Baso % (Auto) Lymph # (Auto) [place] # (Auto) Eos # (Auto) Baso # (Auto) Abs Immat Gran (auto) Absolute Neuts (auto) Absolute Nucleated RBC Nucleated RBC % (auto) VBG pH VBG pCO2 VBG pO2 VBG HCO3 VBG O2 Saturation VBG Base Excess Anion Gap Estim Creat Clear Calc Estimated GFR POC Glucose 275 H 307 H Random Glucose Calcium Phosphorus Magnesium B-Natriuretic Peptide Random Vancomycin 17.6 07/01/24 07/01/24 07/01/24 00:51 06:09 09:05 MCV 96.8 MCH 32.2 MCHC 33.2 RDW 15.6 Plt Count 109 L MPV 11.1 Immature Gran % (Auto) 1.1 H Neut % (Auto) 83.7 H Lymph % (Auto) 9.8 L Trinity % (Auto) 4.0 Eos % (Auto) 1.2 Baso % (Auto) 0.2 Lymph # (Auto) 1.2 Trinity # (Auto) 0.5 Eos # (Auto) 0.1 Baso # (Auto) 0.0 Abs Immat Gran (auto) 0.13 H Absolute Neuts (auto) 9.9 H Absolute Nucleated RBC 0.030 H Nucleated RBC % (auto) 0.3 H VBG pH VBG pCO2 VBG pO2 VBG HCO3 VBG O2 Saturation VBG Base Excess Anion Gap 15 Estim Creat Clear Calc 31.3 Estimated GFR 45 POC Glucose 237 H 125 H Random Glucose 126 H Calcium 8.2 L D Phosphorus 2.6 L Magnesium 2.1 B-Natriuretic Peptide 654 H Random Vancomycin 07/01/24 09:08 MCV MCH MCHC RDW Plt Count MPV Immature Gran % (Auto) Neut % (Auto) Lymph % (Auto) Trinity % (Auto) Eos % (Auto) Baso % (Auto) Lymph # (Auto) Trinity # (Auto) Eos # (Auto) Baso # (Auto) Abs Immat Gran (auto) Absolute Neuts (auto) Absolute Nucleated RBC Nucleated RBC % (auto) VBG pH 7.48 H VBG pCO2 41 VBG pO2 81 VBG HCO3 31 H VBG O2 Saturation 97.0 VBG Base Excess 7.4 Anion Gap Estim Creat Clear Calc Estimated GFR POC Glucose Random Glucose Calcium Phosphorus Magnesium B-Natriuretic Peptide Random Vancomycin Microbiology Microbiology Results: Microbiology 06/25/24 15:33 Blood Culture - Final Blood - Venous No growth after 5 days. 06/25/24 15:33 Blood Culture - Final Blood - Venous No growth after 5 days. Assessment and Plan (1) Congestive heart failure: Status: Acute Plan 83F PMH COPD on p.r.n. O2, history of Pseudomonas pneumonia, history of C diff, HFrEF with EF of 35-40%, paroxysmal atrial fibrillation no longer on anticoagulation, coronary artery disease status post CABG, dementia, hyperlipidemia admitted on 06/25/2024 with sepsis due to pneumonia and COPD exacerbation, rapid response on 06/27/2024 for respiratory distress patient intubated transferred to ICU then extubated and downgraded on 06/28/2024. Acute on chronic hypoxic respiratory failure due to COPD with acute decompensation Now extubated, on room air, in no respiratory distress this morning Continue DuoNebs, steroids, inhaled tobramycin Severe sepsis due to multifocal pneumonia Continue vancomycin and Zosyn Plan to transitioned to Levaquin and Augmentin on discharge Concern for aspiration, follow up speech, currently NPO Hypernatremia D5W, monitor Acute on chronic systolic CHF IV Lasix, monitor Diabetes with hyperglycemia New diagnosis, started basal bolus insulin History of C diff Continue p.o. vanco for prophylaxis while on antibiotics Paroxysmal atrial fibrillation with rapid ventricular response Continue metoprolol, not on anticoagulation due to history of major bleed Coronary artery disease Restart aspirin and statin once taking p.o. Acute kidney injury Improving DVT prophylaxis with Lovenox Full Code reason for continued hospitalization: IV diuresis, NPO Quality Stroke Does the patient have a stroke diagnosis?: No VTE Prior VTE?: No VTE Risk Level:: Medical - moderate - high VTE Device Contraindication: Treatment Not Indicated VTE Drug Contraindication: N/A - Med Ordered
[2024-07-01] MEDS: Furosemide 40 MG/4 ML VIAL IVPUSH (09:46)
[2024-07-01] MEDS: levalbuterol HCL 1.25 MG/3 ML VIAL.NEB INHALE ×2 (11:07→16:07)
--- NOTE | 2024-07-01 11:16 | MHC.CLN ---
F/U PT EXTUBATED AND TRANSFERRED TO MEDICAL FLOOR PT IS DAY 3 NPO PER [employer] RECOMMENDATIONS IF DIET TO ADVANCE; RECOMMEND 1500DM 2GM NA DIET CONSULT RD IF ALTERNATIVE NUTRITION NEEDED FOLLOWING WITH TEAM
--- NOTE | 2024-07-01 12:22 | MHC.SL.SWA ---
Speech Pathologist Impression: Significant pharyngeal dysphagia Risk of Aspiration Due to: Medically Fragile Hx of Recent Extubation Hx of recurrent PNA Hx of pharyngeal dysphagia Dysphasia Diet Status: NPO, ice chips permitted Liquid Consistency and Strategies for Safe Swallow: Liquid Intake Recommendation: NPO Liquid Intake Strategies: Solid Food Consistency: Dietary Recommendations: NPO Additional Modifications to Solid Foods: Recommend continue NPO at this time d/t overt s/s of aspiration with trace PO. Continue frequent oral care, moistened swabs for comfort. Oral Medication Intake: NPO Please contact the pharmacy regarding appropriate crushable or liquid drug formulations that are available whenever modified delivery is recommended. Compensatory Strategies and Precautions to be Taken for Safe Swallow: Sitting Upright (90 deg) Supervision While Eating and Drinking for Safe Swallow: PO with FRUIT TESTER Foods to Avoid: Swallowing Recommended Treatments: Thermal Stimulation Gustatory Stimulation Compens. Strategy Educat. Recommendation for Speech: Inpatient Speech Therapy Modified Barium Swallow Study - Inpatient Comment: ice chips permitted MBSS pending Frequency/Duration: M-F Date Range for Service Req: Timeline to reassess: PRN Supervisor Beam Department Clinican/Clinical Fellow: No Supervisory Statement: I have reviewed and agree with the student/clinical fellow's documentation: No Speech Language Pathologist: Yesy Anthony M.S., CCC-FRUIT TESTER
[2024-07-01] MEDS: Dextrose 5 % 1,000 ML 75 ML IVCONT (12:41)
[2024-07-01 12:55] LABS: Glucose, Whole Blood 278 mg/dL (60-115)
--- NOTE | 2024-07-01 14:57 | MHC.CM.PN ---
EMR reviewed and per MD rounds, pt is not medically cleared for discharge due to management of pneumonia, pt is NPO.
--- NOTE | 2024-07-01 15:32 | MHC.SLORD ---
Speech Language Pathology Order Status: Order for MBSS received. Radiology/DEATH CLEARANCE COORDINATOR schedule full today. Plan to coordinate tomorrow a.m.
[2024-07-01 16:18] LABS: Vancomycin Random 18.3 mcg/mL (15-20)
--- NOTE | 2024-07-01 17:06 | HE.PHANOTE ---
RE: VANCO DOSING Trough came back as 18.3. Continue with dose of 750 mg q24h, next trough is scheduled for 07/02/24 @1500.
[2024-07-01] MEDS: vancomycin HCL 750 MG in 0.9 % Sodium Chloride 250 ML 265 MG IV (17:11)
[2024-07-01 18:17] LABS: Glucose, Whole Blood 266 mg/dL (60-115)
[2024-07-01] MEDS: HYDROmorphone HCl 0.5 MG/0.5 ML SYRINGE IVPUSH (21:04)
[2024-07-02] VITALS (8 sets, daily range): BP systolic 128–141; BP diastolic 65–84; PULSE 72–95; RESP 14–20; TEMP 36.2–36.7; O2SAT 93–98
[2024-07-02 00:29] LABS: Glucose, Whole Blood 150 mg/dL (60-115)
[2024-07-02] MEDS: Metoprolol Tartrate 5 MG/5 ML VIAL 2.5 MG IVPUSH ×4 (00:51→18:09)
[2024-07-02] MEDS: Dextrose 5 % 1,000 ML 75 ML IVCONT (00:51)
[2024-07-02] MEDS: LORazepam 2 MG/ML VIAL 0.5 MG IVPUSH (07:20)
[2024-07-02] MEDS: Pantoprazole Sodium 40 MG/10 ML VIAL IVPUSH (07:20)
[2024-07-02] MEDS: 0.9 % Sodium Chloride Flush 3 ML SYRINGE IVFLUSH ×3 (07:23→23:59)
[2024-07-02 07:24] LABS: MANUAL DIFF FLAG NO
[2024-07-02 07:32] LABS: Basophils Percent Auto 0.2 % (0-2); Eosinophils Absolute Auto 0.2 X10*3/uL (0.0-0.4); Eosinophils Percent Auto 1.2 % (0-4); Hematocrit 33.3 % (37.0-47.0); Imm Gran Abs Auto 0.25 X10*3/uL (0.00-0.03); Lymphocytes Absolute Auto 1.8 X10*3/uL (1.2-4.9); Lymphocytes Percent Auto 14.1 % (20-40); Mean Corpuscular Hemoglobin 32.2 pg (27.0-33.0); Mean Corpuscular Volume 97.4 fL (80.0-98.0); Mean Platelet Volume 11.3 fL (9.4-12.3); Monocytes Absolute Auto 0.7 X10*3/uL (0.1-1.2); Monocytes Percent Auto 5.5 % (2-11); NRBC Pct Auto 0.2 /100WBC (0.0-0.2); Neutrophils Absolute Auto 9.9 x10*3/uL (2.0-8.3); Platelet Count 114 X10*3/uL (160-400); Red Blood Count 3.42 X10*6/uL (4.20-5.50); Red Cell Distribution Width 15.7 % (11.0-16.0); White Blood Count 12.8 X10*3/uL (4.8-10.8)
[2024-07-02 08:00] LABS: Anion Gap 13 (12-20); Blood Urea Nitrogen 22 mg/dL (9-16); Calcium 8.3 mg/dL (8.4-10.2); Carbon Dioxide 24 mmol/L (22-29); Chloride 103 mmol/L (96-108); Creatinine Clr Calc Pharmacy 26.8; Estimated Glomerular Filt Rate 38; Glucose Random 138 mg/dL (60-115); Magnesium 2.3 mg/dL (1.6-2.6); Phosphorus 2.9 mg/dL (2.7-4.5); Potassium 3.4 mmol/L (3.3-5.1); Sodium 137 mmol/L (135-145)
[2024-07-02] MEDS: UMECLIDINIUM VILANTEROL 1 EACH INHALE (08:00)
[2024-07-02] MEDS: Furosemide 40 MG/4 ML VIAL IVPUSH (08:18)
[2024-07-02] MEDS: methylPREDNISolone Sod Succ 40 MG/ML VIAL IVPUSH (08:18)
[2024-07-02] MEDS: Piperacillin Sodium/Tazobactam 4.5 GM in 0.9 % Sodium Chloride 100 ML IV ×3 (08:18→23:59)
[2024-07-02] MEDS: Tobramycin Sulfate 80 MG/2 ML VIAL 300 MG INHALE ×2 (08:32→20:30)
--- NOTE | 2024-07-02 09:32 | P.PNIM_ITS ---
Subjective Subjective Date of Service: 07/02/24 Interval History: sob much improved Physical Exam 2 Vital Signs: Vital Signs: Last Vital Signs Temp 98.1 F 07/02/24 07:31 Pulse 95 07/02/24 08:35 Resp 18 07/02/24 08:35 BP 136/65 07/02/24 07:31 Pulse Ox 98 07/02/24 07:31 O2 Del Method Room Air 07/02/24 07:31 O2 Flow Rate 1 06/29/24 09:56 FiO2 24 06/28/24 12:00 BMI result Body Mass Index 32.3 Alert oriented x3, much more comfortable appearing, no more accessory muscles used, still sounds tight with some expiratory wheezes Objective Data Active Medications Acetaminophen (Acetaminophen 325 Mg Tablet) 650 mg PO Q6H PRN PRN Reason: Pain, Mild 1-3,fever,headache Last Admin: 06/27/24 03:49 Dose: 650 mg Documented By: TOSHIA Aspirin (Aspirin Enteric Coated 81 Mg Tablet.Dr) 81 mg PO DAILY [facility] Last Admin: 07/02/24 08:04 Dose: Not Given Documented By: KALEB Non-Admin Reason: NPO Atorvastatin Calcium (Atorvastatin Calcium 40 Mg Tablet) 40 mg PO BEDTIME [facility] Last Admin: 07/01/24 21:03 Dose: Not Given Documented By: FREDY Non-Admin Reason: NPO Atropine Sulfate (Atropine Sulfate 1 Mg/10 Ml Syringe) 1 mg IVPUSH ONCE PRN PRN Reason: Bradycardia Enoxaparin Sodium (Enoxaparin Sodium 30 Mg/0.3 Ml Syringe) 30 mg SUBCUT Q24H [facility] Last Admin: 07/01/24 16:37 Dose: Not Given Documented By: LÁZARO Non-Admin Reason: Patient Refused Furosemide (Furosemide 40 Mg/4 Ml Vial) 40 mg IVPUSH DAILY [facility]; Protocol Last Admin: 07/02/24 08:18 Dose: 40 mg Documented By: KALEB Glucose (Glucose Gel 15 Gm Gel..Gram.) 15 gm PO Q15M PRN; Protocol PRN Reason: per Hypoglycemia Standing Ord. Hydralazine HCl (Hydralazine Hcl 20 Mg/Ml Vial) 5 mg IVPUSH Q4H PRN; Protocol PRN Reason: Hypertension Last Admin: 06/29/24 10:13 Dose: 5 mg Documented By: ROSA Hydromorphone HCl (Hydromorphone Hcl 0.5 Mg/0.5 Ml Syringe) 0.5 mg IVPUSH Q2H PRN; Protocol PRN Reason: Pain, Moderate(Pain Scale 4-6) Last Admin: 07/01/24 21:04 Dose: 0.5 mg Documented By: FREDY Piperacillin Sod/Tazobactam (Sod 4.5 gm/ Sodium Chloride) 100 mls @ 200 mls/hr IV Q8H [facility] Last Infusion: 07/02/24 08:51 Dose: Infused Documented By: KALEB Dextrose (D10) 250 mls @ 750 mls/hr IV Q15M PRN; Protocol PRN Reason: per Hypoglycemia Standing Ord. Vancomycin HCl 750 mg/ Sodium (Chloride) 265 mls @ 265 mls/hr IV Q24H [facility] Last Infusion: 07/01/24 18:11 Dose: Infused Documented By: LÁZARO Insulin Human Lispro (Insulin Lispro 100 Unit/Ml 3 Ml Vial) 0 unit SUBCUT Q6H [facility]; Protocol Last Admin: 07/02/24 00:36 Dose: Not Given Documented By: FREDY Non-Admin Reason: No Insulin Coverage Levalbuterol HCl (Levalbuterol Hcl 1.25 Mg/3 Ml Vial.Neb) 1.25 mg INHALE RQ4H PRN PRN Reason: Wheezing Last Admin: 07/01/24 16:07 Dose: 1.25 mg Documented By: HELLEN Lorazepam (Lorazepam 2 Mg/Ml Vial) 0.5 mg IVPUSH ONCE PRN PRN Reason: anxiety/restlessness Last Admin: 07/02/24 07:20 Dose: 0.5 mg Documented By: MATT Methylprednisolone Sodium Succinate (Methylprednisolone Sod Succ 40 Mg/Ml Vial) 40 mg IVPUSH Q24H [facility] Last Admin: 07/02/24 08:18 Dose: 40 mg Documented By: KALEB Metoprolol Tartrate (Metoprolol Tartrate 5 Mg/5 Ml Vial) 2.5 mg IVPUSH Q6H [facility]; Protocol Last Admin: 07/02/24 08:18 Dose: 2.5 mg Documented By: KALEB Morphine Sulfate (Morphine Sulfate 2 Mg/Ml Cartridge) 1 mg IVPUSH Q3H PRN; Protocol PRN Reason: work of breathing Last Admin: 06/30/24 10:03 Dose: 1 mg Documented By: LÁZARO Pt Own Med ( Umeclidinium- Vilanterol 62.5 - 25 Mcg [Anoro Ellipta] ) 1 each INHALE RDAILY [facility] Last Admin: 07/01/24 07:41 Dose: 1 each Documented By: HELLEN Nystatin (Nystatin Powder 15 Gm Bottle) 1 appl TOPICAL BID PRN; Protocol PRN Reason: Rash Ondansetron HCl (Ondansetron Hcl 4 Mg/2 Ml Vial) 4 mg IVPUSH Q8H PRN PRN Reason: Nausea and Vomiting Last Admin: 06/30/24 10:16 Dose: 4 mg Documented By: LÁZARO Pantoprazole Sodium (Pantoprazole Sodium 40 Mg/10 Ml Vial) 40 mg IVPUSH DAILY@0630 [facility] Last Admin: 07/02/24 07:20 Dose: 40 mg Documented By: MATT Pharmacy Consult (Consult Rx Vancomycin Dosing) 1 each MISCELLANE DAILY PRN PRN Reason: Consult order Sodium Chloride (0.9 % Sodium Chloride Flush 3 Ml Syringe) 3 ml IVFLUSH QSHIFT [facility] Last Admin: 07/02/24 07:23 Dose: 3 ml Documented By: MATT Tobramycin Sulfate (Tobramycin Sulfate 80 Mg/2 Ml Vial) 300 mg INHALE RBID [facility] Last Admin: 07/02/24 08:32 Dose: 300 mg Documented By: HELLEN Labs 07/02/24 06:21 07/02/24 06:21 Labs: Laboratory Results - last 24 hr 07/01/24 07/01/24 07/01/24 09:05 12:51 15:16 MCV MCH MCHC RDW Plt Count MPV Immature Gran % (Auto) Neut % (Auto) Lymph % (Auto) Lane % (Auto) Eos % (Auto) Baso % (Auto) Lymph # (Auto) Lane # (Auto) Eos # (Auto) Baso # (Auto) Abs Immat Gran (auto) Absolute Neuts (auto) Absolute Nucleated RBC Nucleated RBC % (auto) Anion Gap 15 Estim Creat Clear Calc Estimated GFR POC Glucose 278 H Random Glucose Calcium 8.2 L D Phosphorus Magnesium Random Vancomycin 18.3 07/01/24 07/02/24 07/02/24 18:04 00:22 06:21 MCV 97.4 MCH 32.2 MCHC 33.0 RDW 15.7 Plt Count 114 L MPV 11.3 Immature Gran % (Auto) 2.0 H Neut % (Auto) 77.0 H Lymph % (Auto) 14.[address] % (Auto) 5.5 Eos % (Auto) 1.2 Baso % (Auto) 0.2 Lymph # (Auto) 1.8 Lane # (Auto) 0.7 Eos # (Auto) 0.2 Baso # (Auto) 0.0 Abs Immat Gran (auto) 0.25 H Absolute Neuts (auto) 9.9 H Absolute Nucleated RBC 0.020 H Nucleated RBC % (auto) 0.2 Anion Gap 13 Estim Creat Clear Calc 26.8 Estimated GFR 38 POC Glucose 266 H 150 H Random Glucose 138 H Calcium 8.3 L Phosphorus 2.9 Magnesium 2.3 Random Vancomycin Assessment and Plan (1) Congestive heart failure: Status: Acute Plan 83F PMH COPD on p.r.n. O2, history of Pseudomonas pneumonia, history of C diff, HFrEF with EF of 35-40%, paroxysmal atrial fibrillation no longer on anticoagulation, coronary artery disease status post CABG, dementia, hyperlipidemia admitted on 06/25/2024 with sepsis due to pneumonia and COPD exacerbation, rapid response on 06/27/2024 for respiratory distress patient intubated transferred to ICU then extubated and downgraded on 06/28/2024. Acute on chronic hypoxic respiratory failure due to COPD with acute decompensation Now extubated, on room air, in no respiratory distress this morning Continue DuoNebs, steroids, inhaled tobramycin Severe sepsis due to multifocal pneumonia Continue vancomycin and Zosyn Plan to transitioned to Levaquin and Augmentin on discharge Concern for aspiration, follow up speech, currently NPO plan for modified barium Hypernatremia resolved with d5w Acute on chronic systolic CHF IV Lasix, monitor Diabetes with hyperglycemia New diagnosis, started basal bolus insulin History of C diff Continue p.o. vanco for prophylaxis while on antibiotics Paroxysmal atrial fibrillation with rapid ventricular response Continue metoprolol, not on anticoagulation due to history of major bleed Coronary artery disease Restart aspirin and statin once taking p.o. Acute kidney injury Improving DVT prophylaxis with Lovenox Full Code reason for continued hospitalization: NPO Quality Stroke Does the patient have a stroke diagnosis?: No VTE Prior VTE?: No VTE Risk Level:: Medical - moderate - high VTE Device Contraindication: Treatment Not Indicated VTE Drug Contraindication: N/A - Med Ordered
[2024-07-02 11:10] LABS: Glucose, Whole Blood 201 mg/dL (60-115)
[2024-07-02] MEDS: levalbuterol HCL 1.25 MG/3 ML VIAL.NEB INHALE ×2 (11:47→20:30)
--- NOTE | 2024-07-02 12:01 | MHC.SLORD ---
Speech Language Pathology Order Status: Patient scheduled for MBSS at 1pm today.
[2024-07-02] MEDS: Insulin Lispro 100 UNIT/ML 3 ML VIAL SUBCUT (12:30)
--- NOTE | 2024-07-02 12:44 | HO.WOUND ---
Addendum entered by Nicolle Gonzalez RN 07/03/24 13:14: 07/03/24 - Per patients daughter request initial wound dressing supplies for home in prep for d/c 07/04/24 delivered to bedside. Spoke with Patients daughter about supplies. All questions asked and answered. Original Note: Wound Consult: Initial 83yr old?[place] [facility] - See progress notes and H&P for detailed history.? Wound consult placed for Coccyx / Buttock wound.? Patient agreeable to assessment and photo documentation.? Patient daughter at bedside - patient daughter reports to be her healthcare network consultant at home and is very involved in her care. Sacrum / Coccyx Etiology: ??MASD -IAD (Moisture Associated Skin Damage - Incontinence Associated Dermatitis) Present on Admission Wound Bed: Sacrum noted for red maroon intact blanchable tissue dry desquamation noted - Coccyx / Gluteal fold noted for small abse of skin fold partial thickness tissue loss - clean wound bed - dry desquamation noted Drainage / Odor: None noted Edges: ? Linear and mirrored Caroline wound: MASD ? No Induration, Fluctuance or Warmth noted Pain: denies Goals of Treatment: ? Off Load pressure and barrier cream to protect from friction and moisture Left forearm skin tear noted - flap reapproximated - partial thickness tissue - clean wound bed. Tegaderm removed with use of adhesive remover and skin prep applied - treated with xeroform and dry gauze wrap. Discussed with direct care team no adhesive to skin and in cases where nessecary use skin prep prior. Bilateral arm swelling noted - elevate on pillows. Bilateral heels assessed - intact no PI injury noted - preventative foam applied and elevate on pillows. Recommendations: 1. Turn and Reposition every 2 hours and as needed for patient comfort.? Use pillows or wedges to support off loading positions. 2. Off Load all bony prominences with use of pillows and heel boots if needed.? Apply Preventative foams where needed. ? 3. Monitor for incontinence and moisture control, use barrier creams when needed for prevention and treatment. 4. Provide adequate and supplemental nutrition.? 5. Order low air loss mattress. 6. When applicable maintain blood glucose levels per Providers order. 7. Bilateral Arms - Elevate arms on pillows. Cleanse with normal saline, pat dry. ?Apply Xeroform secure with Abd pads, gauze wrap and tape. Change Daily. ?Do not apply tape to patient?s skin.? Avoid Adhesive application to skin - when necessary, apply skin prep prior.? 8. Bilateral Heels - Elevate heels off of surface of bed with use of pillows. Apply preventative foam dressing to heels change every 5 days and PRN. 9. Sacrum - Off Load Pressure with Q2 hr turns and use of pillows - Cleanse with PH balance spray or wipes, pat dry. ?Apply thin layer of Triad to wound bed. Do not remove all of paste between applications as this may cause further skin damage.? Cover with foam dressing to aid in off loading and protection from friction. Change every 5 days and PRN. Re-consult wound care Nurse for wound deterioration or wound changes.
--- NOTE | 2024-07-02 14:57 | MHC.SL.IMP ---
Date of Plan of Treatment: 07/02/24 Onset of Symptoms/Illness: 09/02/22 Date Treatment Started: 06/29/24 Admitting Diagnosis: Congestive heart failure Primary Speech & Language Diagnosis: R13.12 Oropharyngeal Phase Dysphagia Reason for Today's Visit: 43889 Modified Barium Swallow Study Pre-evaluation Dietary Consistencies: NPO Pre-evaluation Liquid Consistency: NPO Pre-evaluation Medication Administration: NPO Medical History: Modified Barium Swallow Study Fluoroscopic Evaluation of Swallowing Function CPT Code 76206 Evaluation Year: 2024 Reason for Study: ? Aspiration Referring Physician: Yohannes Guzman MD Evaluating Clinician: Rebekah Bagley MA, CCC-WOOL BROKER Study Number: 1 Patient Name: Jenifer Mercado Status: Inpatient, Stretcher Age: 83 Gender: Female Medical History Medical History (Updated 06/25/24 @ 17:38 by SANDY Harris) Congestive heart failure Mild bibasilar atelectasis Aspiration pneumonia Clostridioides difficile infection Pneumonia Atrial flutter Pyuria Atelectasis of right lung Encephalopathy chronic History of infection with vancomycin resistant Enterococcus (VRE) Heart failure Dyspnea Paroxysmal A-fib COPD (chronic obstructive pulmonary disease) A-fib Acute encephalopathy Anemia Pseudomonas respiratory infection CAD (coronary artery disease) Acute respiratory failure with hypoxia Chronic dyspnea Acute hypokalemia Atrial fibrillation with RVR Anemia GI bleed Pulmonary nodules COPD (chronic obstructive pulmonary disease) Bronchiectasis Pseudomonal pneumonia Surgical History H/O umbilical hernia repair (09/18/22) History of quadruple bypass History of hip replacement History of knee replacement History of cholecystectomy Current (pre-evaluation) Intake/Diet: Route: NPO Pre-Study Functional Oral Intake Scale (FOIS): 1- No oral intake Pain: None reported at time of study SUBJECTIVE: Patient is an 83 year old female brought to the hospital with dyspnea and cough, admitted 06/15 for sepsis d/t PNA/COPD exacerbation. CERTIFIED SHORTHAND REPORTER was called on 06/27 after patient developed respiratory distress. She was transferred to the ICU and intubated, then extubated 06/28. Chest CT 06/27 showed, Bilateral dependent upper and lower lobe infiltrates with bilateral small pleural effusions right greater than left. After extubation, patient was having trouble swallowing, with coughing observed after patient swallowed trace amount of liquids and purees. Per MD today, ?SOB much improved.? Multiple comorbidities include COPD on PRN 02, hx pseudomonas PNA x2, hx Cdiff, CAD, and dementia. Patient?s daughter reports patient was eating an unmodified diet at home and was able to chew solid food well without her dentures. Patient was seen by WOOL BROKER during multiple prior hospitalizations in 2022. Patient was discharged on recommendation for regular texture diet and thin liquids. Food and Liquid Trials: Oral Impairment: Lip Closure: Did not test Oral Impairment: Tongue Control During Bolus Hold: Did not test Oral Impairment: Bolus Preparation/Mastication: 1=Slow prolonged chewing/mashing with complete re-collection Oral Impairment: Bolus Transport/Lingual Motion: 2=Slowed tongue motion Oral Impairment: Oral Residue: 1=Trace residue lining oral structures Oral Impairment:Initiation of Pharyngeal Swallow: 2=Bolus head at posterior laryngeal surface of epiglottis Pharyngeal Impairment: Soft Palate Elevation: 0=No bolus between soft palate (SP)/pharyngeal wall (PW) Pharyngeal Impairment: Laryngeal Elevation: 1=Partial thyroid cartilage/arytenoids to epiglottic petiole movement Pharyngeal Impairment: Anterior Hyoid Excursion: 1=Partial anterior movement Pharyngeal Impairment: Epiglottic Movement: 1=Partial inversion Pharyngeal Impairment: Laryngeal Vestibular Closure:: 1=Incomplete: narrow column air/contrast in laryngeal vestibule Pharyngeal Impairment: Pharyngeal Stripping Wave: 1=Present: diminished Pharyngeal Impairment: Pharyngeal Contraction: Did not test Pharyngeal Impairment: Pharyngoesophageal Segment Opening: Did not test Pharyngeal Impairment: Tongue Base (TB) Retraction: 1=Trace column of contrast/air between TB and posterior PW Pharyngeal Impairment: Pharyngeal Residue: 1=Trace residue within or on pharyngeal structures Pharyngeal Impairment: Esophageal Clearance Upright Position: Did not test Impressions and Recommendations Clinical Observations: OBJECTIVE: Time-out: performed at 13:30 Evaluation Start: 13:00; Stop: 13:10 Patient Positioning: Seated 70-90 degrees Viewing Planes: LATERAL ONLY Contrast: MBSImP? Standardized Protocol using commercially prepared, standardized Barium viscosities, including: Varibar? THIN LIQUID (40% w/v, <15 cps) , Varibar? NECTAR (40% w/v, <150-450 cps) , Varibar? THIN HONEY (40% w/v, <800-1800 cps) , Varibar? PUDDING (40% w/v, <8360-6779 cps) , 1/2 Shortbread Cookie (1 x1 x.25 ) MBSImP ID: [id number] [facility] Results: Lip closure for intraoral bolus containment could not be assessed due to logistical reasons not related to physiologic impairment. Tongue control during bolus hold could not be assessed due to logistical reasons not related to physiologic impairment. Bolus preparation and mastication resulted in slow, prolonged chewing/mashing but with complete re-collection. Bolus transport/lingual motion was with slowed tongue motion. Oral residue was a trace, lining oral structures. Initiation of the pharyngeal swallow occurred as the bolus head was at the posterior laryngeal surface of the epiglottis. Soft palate elevation resulted in no bolus between the soft palate and the pharyngeal wall. Laryngeal elevation was decreased, with partial superior movement of the thyroid cartilage/partial approximation of the arytenoids to the epiglottic petiole. Anterior hyoid excursion demonstrated partial anterior movement. Epiglottic movement resulted in partial inversion. Laryngeal vestibular closure was incomplete, with a narrow column of air/contrast noted within the laryngeal vestibule at the height of the swallow. Pharyngeal stripping wave was present, but diminished. Pharyngeal contraction could not be determined due to logistical reasons not related to physiologic impairment. Pharyngoesophageal segment opening could not be assessed due to logistical reasons not related to physiologic impairment. Tongue base retraction allowed a trace column of contrast or air between the retracted tongue base and the posterior pharyngeal wall. Pharyngeal residue was a trace within or on pharyngeal structures. Esophageal clearance in the upright position could not be assessed due to logistical reasons not related to physiologic impairment. Oral Impairment Score: 5 (absence of score, component 1component 2) Pharyngeal Impairment Score: 5 (absence of score, component 13component 14) Esophageal Impairment Score: --- (absence of score, component 17) Laryngeal Penetration and Aspiration: Penetration was observed in today's study. [place]-thick, Thin Contrast entered the airway, remained above the vocal folds, and were ejected from the airway. ASSESSMENT: Clinician Assessment: This exam was conducted by the radiologist and the speech pathologist. Patient was seated upright at 80-90 degree position in a stretcher for lateral view only. She was able to feed herself and trialed thin (via individual cup sips), nectar thick (via individual cup sips), honey thick (via individual cup sips), puree, ground, and regular solid consistencies. Mastication was prolonged, patient was able to mash down solids with her gums. Posterior lingual movement was slowed. There was trace pooling in the floor of mouth and residue on the tongue, which cleared with subsequent swallows. Pharyngeal swallow trigger initiated as the bolus head reached the posterior laryngeal surface of the epiglottis. No evidence of nasopharyngeal reflux. Partial laryngeal elevation with partial epiglottic inversion and incomplete laryngeal vestibular closure. Trace penetration seen with thin and nectar thick consistencies. A trace amount of contrast entered the airway above the vocal folds and then spontaneously cleared, with no subsequent aspiration. No aspiration or penetration with puree and regular solid. There was episode of coating on the posterior epiglottis after patient swallowed ground consistency, which also spontaneously cleared. There was trace residue on the tongue base in the valleculae, which cleared with subsequent swallows. Liquid Intake Recommendation: Thin Liquid Intake Strategies: Small Sips, No Straws Dietary Recommendations: Regular Medication Administration: Whole with Puree Please contact the pharmacy regarding appropriate crushable or liquid drug formulations that are available whenever modified delivery is recommended. Compensatory Strategies Recommended: Sitting Upright (90 deg), Double Swallow, No Straw, Small Bites and Sips, Alternate Liquids/Solids, Rate of Ingestion Change, Avoid Specific Foods Supervision during eating and or drinking: Total Supervision (1:1) Recommended Treatments: Compens. Strategy Educat. Recommendation for Speech Therapy: Inpatient Speech Therapy Text Comment: Intake Recommendations: Route: PO Diet Grade: Regular Liquid Consistencies: Thin Post-Study Functional Oral Intake Scale (FOIS): 6- Total oral intake with no special preparation, but must avoid specific foods or liquid items Trace penetration above the vocal folds on thin and nectar thick consistencies. No subsequent aspiration. Trace oral and pharyngeal residue spontaneously cleared. Recommend upgrade to REGULAR texture diet and THIN liquids, with the provision patient/caregivers select foods which are easier to chew and patient can manage orally. Patient?s daughter reports this is patient?s baseline and that she especially enjoys sandwiches. Pills to be given WHOLE or CRUSHED in PUREE. Patient can be impulsive when self-feeding, as patient?s daughter reports patient has a tendency to eat and drink very quickly. Patient will need 1:1 supervision during PO intake, provide cues as needed for safe feeding strategies. The following strategies are recommended to maximize safety: -take small bites -chew food well -alternate bites with sips -ensure oral cavity is clear before taking more bites -take small sips by spoon or cup -avoid the use of straws -take one sip at a time, no sequential sipping -avoid foods which are overly tough or difficult to chew. Therapy Recommendations: Patient and daughter repeated back strategies as they were discussed. WOOL BROKER to f/u at bedside 1-2x for further education/support. Prognosis for Improvement: The prognosis for the patient to meet nutritional needs by mouth is good based on degree of impairment, stimulability for treatment, level of motivation, support system. Director Of Reimbursement Goals: ? The patient will tolerate the least restrictive diet with a safe/efficient swallow to maintain adequate nutrition and hydration. ? The patient and/or family will participate in further education for swallowing goals. Short Term Goals: ? Diet - The patient will tolerate a regular diet with thin liquids without signs or symptoms of penetration/aspiration 100% of the time. - The patient will participate in therapeutic PO trials with the WOOL BROKER. ? Guidelines - The patient will comply with/recall the following guidelines/strategies 100% of the time with minimal cuing: Bolus Volume Change, Rate of Ingestion Change, Liquid Wash, Additional Swallow(s) per Bolus, No Straws. ? Education - The patient, family, caregiver, nurse will verbalize/demonstrate understanding of the results of this evaluation, the above recommendations, and the swallowing guidelines. Frequency/Duration: 1-2 f/u Date Range for Service Requested: Timeline to reassess: PRN Clinician - Supplemental, Miscellaneous Communication: It is important to note MBSS objective studies are snapshots in time and Patient function might vary with factors such as time of day or concomitant medical conditions. For this reason, the final treatment plan for this patient should rest with their medical care team. Additional recommendations should be considered with the totality of the Patient in mind. Thank for the opportunity to participate in the care of this patient. If you have any questions about the content of this report, please contact the [facility] at [facility]. Education: Education regarding findings from today's study and plans for therapy were provided to Patient and family/caregiver through Verbal Instruction. Understanding was expressed by the Patient and family/caregiver. Cyber Transport Systems Specialist Clinician/Clinical Fellow: No Supervisory Statement: N/A Speech Language Pathologist: Rebekah Bagley M.A., CCC-WOOL BROKER
[2024-07-02 15:58] LABS: Vancomycin Random 19.5 mcg/mL (15-20)
[2024-07-02 16:28] LABS: CDiff Gene PCR NEGATIVE (Negative)
--- NOTE | 2024-07-02 16:39 | HE.PHANOTE ---
RE: VANCO DOSING Trough came back as 19.5 mg/L. Dose is decreased to 500 mg q24h, next trough is scheduled for 07/03/24 @1500.
[2024-07-02] MEDS: vancomycin HCL 500 MG in 0.9 % Sodium Chloride 100 ML 110 MG IV (17:30)
--- NOTE | 2024-07-02 17:32 | PC.NURSE ---
Upon arrival at 0700 pt asking for anxiety medication. Night RN Homero still on unit, medicated pt with prn ativan per request. Daughter arrived to unit ~0900 and was upset pt had received ativan and not morphine. Explained to daughter that morphine was ordered for increased work of breathing and ativan ordered for anxiety which pt specifically asked for. Pt AOx4 and able to make her needs known. Pt down for MBS at ~1300. Passed swallow for regular diet and thin liquids. Speech rec 1:1 feed and aspiration precautions. Pts tray arrived while daughter was at bedside and she assissted pt with a few bites. Daughter left hospital at ~1430 and this RN entered room to see pts tray was within reach and she was attempting to eat alone. Pt had 1-2 bites of cake stating im just so hungry before this RN placed cake back on tray and moved it out of reach until stable hand could come feed pt. CONNIE Butcher fed pt until she stated she was done eating and tray removed from room. Daughter called at ~1530 extremely upset stating her mother called her and stated she ate her lunch all by herself and was questioning charge manager why she was not fed. retail security professional explained to daughter that pt was in fact fed by stable hand and only had 1-2 bites by herself after tray was left next to her. This RN also spoke with daughter when she returned to hospital at ~1700 and re-iterated that zeina fed pt lunch and aspiration precautions were maintained.
[2024-07-02] MEDS: Atorvastatin Calcium 40 MG TABLET PO (21:24)
[2024-07-03] VITALS (9 sets, daily range): BP systolic 130–165; BP diastolic 59–82; PULSE 76–96; RESP 16–22; TEMP 36.1–36.7; O2SAT 94–100; BMI 36.5
[2024-07-03] MEDS: Metoprolol Tartrate 5 MG/5 ML VIAL 2.5 MG IVPUSH ×4 (00:07→18:07)
[2024-07-03] MEDS: Piperacillin Sodium/Tazobactam 4.5 GM in 0.9 % Sodium Chloride 100 ML IV ×3 (06:24→22:31)
[2024-07-03] MEDS: Pantoprazole Sodium 40 MG/10 ML VIAL IVPUSH (06:24)
[2024-07-03] MEDS: UMECLIDINIUM VILANTEROL 1 EACH INHALE (07:12)
[2024-07-03] MEDS: Tobramycin Sulfate 80 MG/2 ML VIAL 300 MG INHALE ×2 (07:12→19:02)
[2024-07-03 07:31] LABS: Blood Urea Nitrogen 22 mg/dL (9-16); Calcium 8.4 mg/dL (8.4-10.2); Creatinine Clr Calc Pharmacy 32.8; Estimated Glomerular Filt Rate 44; Glucose Random 112 mg/dL (60-115); Magnesium 2.1 mg/dL (1.6-2.6); Phosphorus 2.4 mg/dL (2.7-4.5)
[2024-07-03 07:46] LABS: Anion Gap 12 (12-20); Carbon Dioxide 27 mmol/L (22-29); Chloride 105 mmol/L (96-108); Potassium 2.8 mmol/L (3.3-5.1); Sodium 141 mmol/L (135-145)
[2024-07-03] MEDS: Furosemide 40 MG/4 ML VIAL IVPUSH (08:49)
[2024-07-03] MEDS: Potassium Chloride ER 20 MEQ TAB.ER.PRT 40 MEQ PO (08:50)
[2024-07-03] MEDS: methylPREDNISolone Sod Succ 40 MG/ML VIAL IVPUSH (08:50)
[2024-07-03] MEDS: Acetaminophen 325 MG TABLET 650 MG PO (08:50)
[2024-07-03] MEDS: Aspirin Enteric Coated 81 MG TABLET.DR PO (08:50)
--- NOTE | 2024-07-03 09:49 | PC.NURSE ---
Addendum entered by Javed Humphrey RN 07/03/24 17:03: pt daughter brought in pt's eye glasses Addendum entered by Javed Humphrey RN 07/03/24 11:23: spoke with pt and daughter at bedside this AM. daughter requested nystatin for thrush. md informed. Original Note: pt experience dropped off coloring book w/ crayons and word search per request to pt's bedside. Pt was fed by staff this AM. Pt able to take meds whole in pudding.
--- NOTE | 2024-07-03 11:12 | P.PNIM_ITS ---
Subjective Subjective Date of Service: 07/03/24 Interval History: perineal irritation Physical Exam 2 Vital Signs: Vital Signs: Last Vital Signs Temp 97.2 F 07/03/24 07:27 Pulse 88 07/03/24 07:27 Resp 20 07/03/24 07:27 BP 151/71 H 07/03/24 07:27 Pulse Ox 100 07/03/24 07:27 O2 Del Method Room Air 07/03/24 07:27 O2 Flow Rate 1 06/29/24 09:56 FiO2 24 06/28/24 12:00 BMI result Body Mass Index 36.5 Alert oriented x3, much more comfortable appearing, no more accessory muscles used, still sounds tight with some expiratory wheezes Objective Data Active Medications Acetaminophen (Acetaminophen 325 Mg Tablet) 650 mg PO Q6H PRN PRN Reason: Pain, Mild 1-3,fever,headache Last Admin: 07/03/24 08:50 Dose: 650 mg Documented By: NAPOLEON Aspirin (Aspirin Enteric Coated 81 Mg Tablet.) 81 mg PO DAILY [facility] Last Admin: 07/03/24 08:50 Dose: 81 mg Documented By: NAPOLEON Atorvastatin Calcium (Atorvastatin Calcium 40 Mg Tablet) 40 mg PO BEDTIME ANIBAL Last Admin: 07/02/24 21:24 Dose: 40 mg Documented By: LYDIA Atropine Sulfate (Atropine Sulfate 1 Mg/10 Ml Syringe) 1 mg IVPUSH ONCE PRN PRN Reason: Bradycardia Enoxaparin Sodium (Enoxaparin Sodium 30 Mg/0.3 Ml Syringe) 30 mg SUBCUT Q24H [facility] Last Admin: 07/02/24 14:44 Dose: Not Given Documented By: KAELB Non-Admin Reason: Patient Refused Furosemide (Furosemide 40 Mg/4 Ml Vial) 40 mg IVPUSH DAILY [facility]; Protocol Last Admin: 07/03/24 08:49 Dose: 40 mg Documented By: NAPOLEON Glucose (Glucose Gel 15 Gm Gel..Gram.) 15 gm PO Q15M PRN; Protocol PRN Reason: per Hypoglycemia Standing Ord. Hydralazine HCl (Hydralazine Hcl 20 Mg/Ml Vial) 5 mg IVPUSH Q4H PRN; Protocol PRN Reason: Hypertension Last Admin: 06/29/24 10:13 Dose: 5 mg Documented By: ROSA Piperacillin Sod/Tazobactam (Sod 4.5 gm/ Sodium Chloride) 100 mls @ 200 mls/hr IV Q8H [facility] Last Infusion: 07/03/24 07:20 Dose: Infused Documented By: NAPOLEON Dextrose (D10) 250 mls @ 750 mls/hr IV Q15M PRN; Protocol PRN Reason: per Hypoglycemia Standing Ord. Vancomycin HCl 500 mg/ Sodium (Chloride) 110 mls @ 110 mls/hr IV Q24H [facility] Last Infusion: 07/02/24 18:32 Dose: Infused Documented By: KALEB Levalbuterol HCl (Levalbuterol Hcl 1.25 Mg/3 Ml Vial.Neb) 1.25 mg INHALE RQ4H PRN PRN Reason: Wheezing Last Admin: 07/02/24 20:30 Dose: 1.25 mg Documented By: SOURAV Lorazepam (Lorazepam 2 Mg/Ml Vial) 0.5 mg IVPUSH ONCE PRN PRN Reason: anxiety/restlessness Last Admin: 07/02/24 07:20 Dose: 0.5 mg Documented By: MATT Methylprednisolone Sodium Succinate (Methylprednisolone Sod Succ 40 Mg/Ml Vial) 40 mg IVPUSH Q24H ANIBAL Last Admin: 07/03/24 08:50 Dose: 40 mg Documented By: NAPOLEON Metoprolol Tartrate (Metoprolol Tartrate 5 Mg/5 Ml Vial) 2.5 mg IVPUSH Q6H ANIBAL; Protocol Last Admin: 07/03/24 08:50 Dose: 2.5 mg Documented By: NAPOLEON Morphine Sulfate (Morphine Sulfate 2 Mg/Ml Cartridge) 1 mg IVPUSH Q3H PRN; Protocol PRN Reason: work of breathing Last Admin: 06/30/24 10:03 Dose: 1 mg Documented By: LÁZARO Pt Own Med ( Umeclidinium- Vilanterol 62.5 - 25 Mcg [Anoro Ellipta] ) 1 each INHALE RDAILY [facility] Last Admin: 07/03/24 07:12 Dose: 1 each Documented By: MARY Nystatin (Nystatin Powder 15 Gm Bottle) 1 appl TOPICAL BID PRN; Protocol PRN Reason: Rash Ondansetron HCl (Ondansetron Hcl 4 Mg/2 Ml Vial) 4 mg IVPUSH Q8H PRN PRN Reason: Nausea and Vomiting Last Admin: 06/30/24 10:16 Dose: 4 mg Documented By: LÁZARO Pharmacy Consult (Consult Rx Vancomycin Dosing) 1 each MISCELLANE DAILY PRN PRN Reason: Consult order Sodium Chloride (0.9 % Sodium Chloride Flush 3 Ml Syringe) 3 ml IVFLUSH QSHIFT [facility] Last Admin: 07/03/24 07:22 Dose: Not Given Documented By: NAPOLEON Non-Admin Reason: Previously Administered Tobramycin Sulfate (Tobramycin Sulfate 80 Mg/2 Ml Vial) 300 mg INHALE RBID [facility] Last Admin: 07/03/24 07:12 Dose: 300 mg Documented By: MARY Zinc Oxide (Zinc Oxide (Triple Paste) 56.7 Gm Oint) 1 appl TOPICAL QID [facility]; Protocol Labs 07/02/24 06:21 07/03/24 06:09 Labs: Laboratory Results - last 24 hr 07/02/24 07/02/24 07/03/24 14:21 15:03 06:09 Anion Gap 12 Estim Creat Clear Calc 32.8 Estimated GFR 44 Random Glucose 112 Calcium 8.4 Phosphorus 2.4 L Magnesium 2.1 Random Vancomycin 19.5 C. difficile Tox B Gene NEGATIVE Assessment and Plan (1) Congestive heart failure: Status: Acute Plan 83F PMH COPD on p.r.n. O2, history of Pseudomonas pneumonia, history of C diff, HFrEF with EF of 35-40%, paroxysmal atrial fibrillation no longer on anticoagulation, coronary artery disease status post CABG, dementia, hyperlipidemia admitted on 06/25/2024 with sepsis due to pneumonia and COPD exacerbation, rapid response on 06/27/2024 for respiratory distress patient intubated transferred to ICU then extubated and downgraded on 06/28/2024. Acute on chronic hypoxic respiratory failure due to COPD with acute decompensation Now extubated, on room air, in no respiratory distress Continue DuoNebs, steroids, inhaled tobramycin Severe sepsis due to multifocal pneumonia Completed course of vancomycin and Zosyn dysphagia - MALTSTER appreciated, now on regular with thins, aspiration precautions Hypernatremia resolved with d5w Acute on chronic systolic CHF now on po Lasix, monitor acute hypokalemia replace and monitor Diabetes with hyperglycemia New diagnosis, started basal bolus insulin a1c 9.5 History of C diff negative Paroxysmal atrial fibrillation with rapid ventricular response Continue metoprolol, not on anticoagulation due to history of major bleed Coronary artery disease aspirin and statin Acute kidney injury Improving dispo - home with daughter and VNA DVT prophylaxis with Lovenox Full Code reason for continued hospitalization: hypokalemia Quality Stroke Does the patient have a stroke diagnosis?: No VTE Prior VTE?: No VTE Risk Level:: Medical - moderate - high VTE Device Contraindication: Treatment Not Indicated VTE Drug Contraindication: N/A - Med Ordered
--- NOTE | 2024-07-03 11:23 | P.DS_ITS ---
DS: Providers Provider Date of Service: 07/03/24 <Yohannes Guzman MD - Last Filed: 07/03/24 11:27> 07/04/24 <SANDY Shaikh - Last Filed: 07/04/24 11:33> Date of admission: 06/25/24 20:16 <Yohannes Guzman MD - Last Filed: 07/03/24 11:27> Date of discharge: 07/03/24 <Yohannes Guzman MD - Last Filed: 07/03/24 11:27> 07/04/24 <SANDY Shaikh - Last Filed: 07/04/24 11:33> Primary care physician: Monica Arciniega MD <Yohannes Guzman MD - Last Filed: 07/03/24 11:27> Consults: 06/27/24 13:16 Consult to Wound Care Routine Reason for consultation: see skin note <Yohannes Guzman MD - Last Filed: 07/03/24 11:27> Attending physician on discharge: Navenet Daniel <SANDY Shaikh - Last Filed: 07/04/24 11:33> Discharging clinician: Katie Guerra <SANDY Shaikh - Last Filed: 07/04/24 11:33> DS: Diagnosis Discharge Diagnosis (1) Congestive heart failure: Status: Acute <Yohannes Guzman MD - Last Filed: 07/03/24 11:27> DS: Summary Hospital Course Hospital Course: from initial hpi: 83-year-old female with a past medical history significant for COPD on as needed oxygen, CHF (EF 35-40%), recurrent UTIs, paroxysmal AFib (no anticoagulation), CAD, history CABG x4, dementia, HLD, history of Pseudomonas pneumonia x2, last episode 6 months ago, who presented to the ED today due to worsening shortness of breath congestion and cough. She reports this has been ongoing for the past month he recently saw Dr. Aldana who prescribed antibiotics by his she has yet to pick them up. Her cough is mildly productive with whitish sputum. She denies any fever, chills, nausea or vomiting. She will experience some fatigue and shortness of breath with ambulation but denies any shortness of breath at rest, orthopnea or chest pain. She reports that she has not needed to use her home oxygen. She also denies any urinary symptoms. hospital course: Patient was admitted for acute on chronic hypoxic respiratory failure due to COPD with acute decompensation and sepsis due to pneumonia. Was initially treated with IV antibiotics, steroids, DuoNebs. On 06/27/2024 that was a rapid response for respiratory distress. Patient required intubation and transferred to the ICU. Was then downgraded on 06/28/2024. Patient completed 8 day course of vancomycin and Zosyn. Was weaned off oxygen. Will do prednisone taper on discharge. Continue inhaled tobramycin. And follow up with Pulmonary. Course complicated by hypernatremia which improved with D5W. Also complicated by dysphagia likely due to intubation, this resolved after several days and patient now on a regular solids with thin liquid diet with aspiration precautions. Course complicated by acute on chronic systolic CHF which improved with IV Lasix on discharge we will continue p.o. Lasix. For acute hypokalemia received replacement. Patient was noted to have hyperglycemia hemoglobin A1c 9.5 this is a new diagnosis of diabetes. In hospital was given basal bolus insulin on discharge will be started on metformin. Paroxysmal atrial fibrillation with rap id ventricular response was continued on metoprolol, patient is not on anticoagulation due to history of major bleeding. For coronary artery disease was continued on aspirin statin. For acute kidney injury patient had significant improvement and should continue to be monitored as outpatient. Patient will be discharged home with VNA. speech recs: Recommend REGULAR texture diet and THIN liquids, with the provision patient/caregivers select foods which are easier to chew and patient can manage orally. Patient?s daughter reports this is patient?s baseline and that she especially enjoys sandwiches. Pills to be given WHOLE or CRUSHED in PUREE. Patient can be impulsive when self-feeding, as patient?s daughter reports patient has a tendency to eat and drink very quickly. Patient will need 1:1 supervision during PO intake, provide cues as needed for safe feeding strategies. The following strategies are recommended to maximize safety: -take small bites -chew food well -alternate bites with sips -ensure oral cavity is clear before taking more bites -take small sips by spoon or cup -avoid the use of straws -take one sip at a time, no sequential sipping -avoid foods which are overly tough or difficult to chew. <Yohannes Guzman MD - Last Filed: 07/03/24 11:27> Time Attestation Discharge Coordination Time (in mins): 33 <Yohannes Guzman MD - Last Filed: 07/03/24 11:27> Quality: Safe Use of Opioids Does Pt have an Active Cancer Diagnosis on the Problem List?: No <Yohannes Guzman MD - Last Filed: 07/03/24 11:27> Quality: Stroke Does the patient have a stroke diagnosis?: No <Yohannes Guzman MD - Last Filed: 07/03/24 11:27> Physical Exam Vital Signs: Vital Signs: Last Vital Signs Temp 97.2 F 07/03/24 07:27 Pulse 88 07/03/24 07:27 Resp 20 07/03/24 07:27 BP 151/71 H 07/03/24 07:27 Pulse Ox 100 07/03/24 07:27 O2 Del Method Room Air 07/03/24 07:27 O2 Flow Rate 1 06/29/24 09:56 FiO2 24 06/28/24 12:00 BMI result Body Mass Index 36.5 <Yohannes Guzman MD - Last Filed: 07/03/24 11:27> Alert oriented x3, much more comfortable appearing, no more accessory muscles used, still sounds tight with some expiratory wheezes <Yohannes Guzman MD - Last Filed: 07/03/24 11:27> Const: General: alert and awake <SANDY Shaikh - Last Filed: 07/04/24 11:33> Orientation/consciousness: patient oriented x3 <SANDY Shaikh - Last Filed: 07/04/24 11:33> Resp: Other: no wheeze <SANDY Shaikh - Last Filed: 07/04/24 11:33> Effort & Inspection: no respiratory distress and no use of accessory muscles <SANDY Shaikh - Last Filed: 07/04/24 11:33> Neuro: General: patient oriented x3 <SANDY Shaikh - Last Filed: 07/04/24 11:33> DS: Data Data Completed and Pending Completed studies during hospitalization [Text1]: Procedures Excision of Descending Colon, Via Natural or Artificial Opening Endoscopic, Diagnostic (01/14/23) Excision of Rectum, Via Natural or Artificial Opening Endoscopic, Diagnostic (01/14/23) Excision of Sigmoid Colon, Via Natural or Artificial Opening Endoscopic, Diagnostic (01/14/23) Excision of Transverse Colon, Via Natural or Artificial Opening Endoscopic, Diagnostic (01/14/23) Supplement Abdominal Wall with Synthetic Substitute, Open Approach (09/17/22) Transfusion of Nonautologous Red Blood Cells into Peripheral Vein, Percutaneous Approach (04/06/22) <Yohannes Guzman MD - Last Filed: 07/03/24 11:27> Labs on day of discharge: Laboratory Results - last 24 hr 07/02/24 07/02/24 07/03/24 14:21 15:03 06:09 Sodium 141 Potassium 2.8 L* Chloride 105 Carbon Dioxide 27 Anion Gap 12 BUN 22 H Creatinine 1.16 Estim Creat Clear Calc 32.8 Estimated GFR 44 Random Glucose 112 Calcium 8.4 Phosphorus 2.4 L Magnesium 2.1 Random Vancomycin 19.5 C. difficile Tox B Gene NEGATIVE <Yohannes Guzman MD - Last Filed: 07/03/24 11:27> Discharge Plan Discharge Anticipated Discharge Date/Time: 07/04/24 10:40 <Yohannes Guzman MD - Last Filed: 07/03/24 11:27> Patient Disposition: Home Health Service <Yohannes Guzman MD - Last Filed: 07/03/24 11:27> Discharge Diagnosis: copd, chf, pna, abraham <Yohannes Guzman MD - Last Filed: 07/03/24 11:27> copd, chf, pna, abraham <SANDY Shaikh - Last Filed: 07/04/24 11:33> Referrals: [facility] [Outside] - 1 Day Monica Arciniega MD [Primary Care Provider] - 1 Week <Yohannes Guzman MD - Last Filed: 07/03/24 11:27> Discharge Medications: New furosemide 40 mg Tablet 40 mg PO DAILY Qty: 90 0RF Protocol: Hold for SBP< HOLD for SBP < : 90 Triple Paste 12.8 % Ointment 1 appl topical QID 30 Days Qty: 227 0RF Protocol: Apply to: Apply to: rash metformin 1,000 mg tablet 1,000 mg PO BIDWMEAL Qty: 180 0RF (DME) FreeStyle Lite Strips Strip Qty: 100 0RF Rx Instructions: Test four times a day or as directed. (DME) blood-glucose meter [FreeStyle Lite Meter] Kit Qty: 1 0RF Rx Instructions: As Directed alcohol swabs Pads, Medicated 1 pad TOPICAL QIDACHS Qty: 100 0RF Rx Instructions: Use four times a day or as directed. (DME) pen needle, diabetic 32 gauge x 1/4 needle Qty: 100 0RF Rx Instructions: Use four times a day or as directed. (DME) lancets [FreeStyle Lancets] 28 gauge misc Qty: 100 0RF Rx Instructions: Test four times a day or as directed. prednisone 10 mg tablet See Taper PO DIRECTED Qty: 30 0RF Taper: Prednisone 40 mg daily for 3 Days and 0 Hour 30 mg daily for 3 Days and 0 Hour 20 mg daily for 3 Days and 0 Hour 10 mg daily for 3 Days and 0 Hour Rx Instructions: see taper instructions Continued (DME) Aerochamber MV Spacer See Rx Instructions .ROUTE .MEDSUPPLY Qty: 1 0RF Rx Instructions: As directed tobramycin 300 mg/4 mL solution for nebulization 300 mg inhalation BID 28 Days Qty: 224 6RF Rx Instructions: use for 28 days on and 28 days off Anoro Ellipta 62.5-25 mcg/actuation blister with device 1 ea inhalation DAILY 30 Days Qty: 60 11RF Rx Instructions: do not interchange, daughter will bring in levalbuterol HCl 1.25 mg/3 mL solution for nebulization 1.25 mg PO QID Qty: 1050 0RF isosorbide mononitrate 30 mg tablet extended release 24 hr 30 mg PO DAILY aspirin 81 mg tablet,delayed release (DR/EC) 81 mg PO DAILY pantoprazole 40 mg tablet,delayed release (DR/EC) 40 mg PO BID albuterol sulfate [Ventolin HFA] 90 mcg/actuation HFA aerosol inhaler 2 puff INHALATION Q4-6H PRN (Reason: Shortness Of Breath Or Wheezing) cyanocobalamin (vitamin B-12) 1,000 mcg tablet 1,000 mcg PO DAILY Lactobacillus acidophilus 500 million cell capsule 500,000,000 cell PO DAILY nystatin 100,000 unit/gram powder 1 appl topical BID PRN (Reason: Rash) Protocol: Apply to: Apply to: Abdominal Fold Rx Instructions: groin area metoprolol tartrate 25 mg Tablet 25 mg PO BID Qty: 60 0RF Protocol: Hold for SBP/HR < HOLD for SBP < : 90 HOLD for HR < : 60 atorvastatin [Lipitor] 40 mg tablet 40 mg PO BEDTIME Qty: 30 0RF quetiapine 50 mg tablet 50 mg PO BEDTIME multivitamin Tablet 1 tab PO DAILY acetaminophen 325 mg Tablet 650 mg PO Q6H PRN (Reason: Pain) potassium chloride 20 mEq tablet extended release 20 meq PO DAILY ferrous sulfate 325 mg (65 mg iron) tablet 325 mg PO BEDTIME nystatin 100,000 unit/mL Suspension 100,000 unit PO BID Rx Instructions: Swish and spit for thrush fluticasone propionate 50 mcg/actuation spray,suspension 1 spray intranasal BID Rx Instructions: 1 spray into each nostril montelukast 10 mg tablet 10 mg PO BEDTIME (DME) nebulizers Kit See Rx Instructions .Route Rx Instructions: As directed Discontinued prednisone 10 mg tablet See Rx Instructions PO DAILY 20 Days Qty: 30 2RF Rx Instructions: PO daily; Take 2 tabs daily x 10 days, then 1 tab daily x 10 days <Yohannes Guzman MD - Last Filed: 07/03/24 11:27> Discharge Orders: Discharge Order (Routine); Ordered 07/04/24 Ordered By: Katie Guerra <Yohannes Guzman MD - Last Filed: 07/03/24 11:27> Diet: Diabetic diet <Yohannes Guzman MD - Last Filed: 07/03/24 11:27> Diabetic diet <SANDY Shaikh - Last Filed: 07/04/24 11:33> Activity on Discharge: As tolerated <Yohannes Guzman MD - Last Filed: 07/03/24 11:27> As tolerated <SANDY Shaikh - Last Filed: 07/04/24 11:33> Stand Alone Forms: Patient Portal Discharge page <Yohannes Guzman MD - Last Filed: 07/03/24 11:27> Print Language: Persian <Yohannes Guzman MD - Last Filed: 07/03/24 11:27> Other Ambulatory Orders: Basic Metabolic Panel (Routine) Timeframe: 1 Week Facility: [facility] - Location: Laboratory Ordered By: Katie Guerra <Yohannes Guzman MD - Last Filed: 07/03/24 11:27> Care Plan Goals: avoid hospitalizations <Yohannes Guzman MD - Last Filed: 07/03/24 11:27> Health Concerns: chf, copd, new DM <Yohannes Guzman MD - Last Filed: 07/03/24 11:27> Plan of Treatment: see med changes on med rec follow up with pulmonary and pcp home with VNA services repeat labs in one week <Yohannes Guzman MD - Last Filed: 07/03/24 11:27> Assessment: see above <Yohannes Guzman MD - Last Filed: 07/03/24 11:27>
--- NOTE | 2024-07-03 11:59 | MHC.CLN ---
F/U PO INTAKE 50% X 1 MEAL DIET ADVANCED TO REGULAR-CASINO ASSISTANT MANAGER FOLLOWING RECOMMEND RE-START 1500DM 2GM NA DIET R/T NEW DM MONITOR PO INTAKE
--- NOTE | 2024-07-03 12:08 | MHC.SL.SWA ---
Speech Pathologist Impression: Adequate oropharyngeal swallow visualized through MBSS during inpatient stay, see report for details Risk of Aspiration Due to: Medically Fragile Hx of Recent Extubation Dysphasia Diet Status: Liquid Consistency and Strategies for Safe Swallow: Liquid Intake Recommendation: Thin Liquid Intake Strategies: Small Sips Solid Food Consistency: Dietary Recommendations: Regular Additional Modifications to Solid Foods: Avoid hard to chew solids Oral Medication Intake: Whole with Puree Please contact the pharmacy regarding appropriate crushable or liquid drug formulations that are available whenever modified delivery is recommended. Compensatory Strategies and Precautions to be Taken for Safe Swallow: Sitting Upright (90 deg) Small Bites and Sips Alternate Liquids/Solids Rate of Ingestion Change Supervision While Eating and Drinking for Safe Swallow: Intermittent Supervision Foods to Avoid: [place] tough or difficult to chew solids Swallowing Recommended Treatments: Compens. Strategy Educat. Recommendation for Speech: Inpatient Speech Therapy Comment: Patient and daugther verbalize understanding and agree with recc post MBSS. FOREST RANGER reviewed safety strategies to reduce pt risk for aspiration, pt and daughter in agreement with recc Frequency/Duration: 1-2 f/u Date Range for Service Req: Timeline to reassess: PRN Potato Spotter Clinican/Clinical Fellow: No Supervisory Statement: I have reviewed and agree with the student/clinical fellow's documentation: N/A Speech Language Pathologist: Yesy Anthony M.S., CCC-FOREST RANGER
[2024-07-03] MEDS: Nystatin Oral Susp 500,000 UNIT/5 ML ORAL.SUSP 200000 UNIT PO ×3 (12:19→20:37)
[2024-07-03] MEDS: Zinc Oxide (Triple Paste) 56.7 GM OINT 1 APPL TOPICAL ×3 (12:20→20:28)
--- NOTE | 2024-07-03 13:14 | MHC.CM.PN ---
EMR reviewed and per MD rounds, pt is not medically cleared for discharge due to management of hypokalemia. This CM met with pt and her daughter/HCP Ximena present at bedside to discuss discharge plans. Per Ximena, she would like pt to have VNA services at discharge, Ximena states there is no VNA agency preference. Ximena also states she can pick her up at discharge around 4:30-5pm so her can be with her to help. Ximena is requesting that she get a note from the MD stating that the pt can return to her CHD day program. Ximena is also requesting a transport chair for her mother as hers isnt' currently working, this CM provided the [employer] equipment loan program to her. Ximena understood the discussion and was in agreement with taking her mother home tomorrow with new VNA services.
[2024-07-03 15:52] LABS: Basophils Percent Auto 0.3 % (0-2); Eosinophils Percent Auto 0.4 % (0-4); Hematocrit 34.9 % (37.0-47.0); Hemoglobin 11.8 g/dl (12.0-16.0); Imm Gran Abs Auto 0.48 X10*3/uL (0.00-0.03); Imm Gran Pct Auto 4.2 % (0.0-0.4); Lymphocytes Absolute Auto 0.6 X10*3/uL (1.2-4.9); Lymphocytes Percent Auto 5.4 % (20-40); Mean Corpuscular HGB Conc 33.8 g/dl (31.0-35.0); Mean Corpuscular Hemoglobin 32.2 pg (27.0-33.0); Mean Corpuscular Volume 95.1 fL (80.0-98.0); Mean Platelet Volume 10.7 fL (9.4-12.3); Monocytes Absolute Auto 0.2 X10*3/uL (0.1-1.2); Monocytes Percent Auto 1.3 % (2-11); Neutrophils Absolute Auto 10.1 x10*3/uL (2.0-8.3); Neutrophils Percent Auto 88.4 % (45-73); Platelet Count 135 X10*3/uL (160-400); Red Blood Count 3.67 X10*6/uL (4.20-5.50); Red Cell Distribution Width 15.9 % (11.0-16.0); White Blood Count 11.4 X10*3/uL (4.8-10.8)
[2024-07-03 16:10] LABS: Vancomycin Random 18.1 mcg/mL (15-20)
[2024-07-03] MEDS: vancomycin HCL 500 MG in 0.9 % Sodium Chloride 100 ML 110 MG IV (16:58)
[2024-07-03] MEDS: levalbuterol HCL 1.25 MG/3 ML VIAL.NEB INHALE (19:02)
[2024-07-03] MEDS: Atorvastatin Calcium 40 MG TABLET PO (20:37)
[2024-07-03] MEDS: 0.9 % Sodium Chloride Flush 3 ML SYRINGE IVFLUSH (20:45)
[2024-07-04] VITALS (12 sets, daily range): BP systolic 132–174; BP diastolic 60–86; PULSE 86–94; RESP 16–24; TEMP 36–37.3; O2SAT 94–98; BMI 36.4
[2024-07-04] MEDS: Metoprolol Tartrate 5 MG/5 ML VIAL 2.5 MG IVPUSH ×3 (01:28→12:26)
[2024-07-04] MEDS: Morphine Sulfate 2 MG/ML CARTRIDGE 1 MG IVPUSH ×2 (02:50→05:54)
[2024-07-04] MEDS: levalbuterol HCL 1.25 MG/3 ML VIAL.NEB INHALE (02:55)
[2024-07-04] MEDS: Piperacillin Sodium/Tazobactam 4.5 GM in 0.9 % Sodium Chloride 100 ML IV (07:52)
[2024-07-04] MEDS: Furosemide 40 MG TABLET PO (07:53)
[2024-07-04] MEDS: 0.9 % Sodium Chloride Flush 3 ML SYRINGE IVFLUSH (07:54)
[2024-07-04] MEDS: Zinc Oxide (Triple Paste) 56.7 GM OINT 1 APPL TOPICAL ×2 (07:54→12:26)
[2024-07-04] MEDS: Aspirin Enteric Coated 81 MG TABLET.DR PO (07:54)
[2024-07-04] MEDS: methylPREDNISolone Sod Succ 40 MG/ML VIAL IVPUSH (07:55)
[2024-07-04] MEDS: Nystatin Oral Susp 500,000 UNIT/5 ML ORAL.SUSP 200000 UNIT PO ×2 (08:10→12:25)
[2024-07-04] MEDS: UMECLIDINIUM VILANTEROL 1 EACH INHALE (08:13)
[2024-07-04] MEDS: Tobramycin Sulfate 80 MG/2 ML VIAL 300 MG INHALE (08:13)
[2024-07-04 09:14] LABS: MANUAL DIFF FLAG NO
[2024-07-04 09:23] LABS: Basophils Absolute Auto 0.1 X10*3/uL (0.0-0.2); Basophils Percent Auto 0.4 % (0-2); Eosinophils Absolute Auto 0.2 X10*3/uL (0.0-0.4); Eosinophils Percent Auto 1.3 % (0-4); Hematocrit 34.4 % (37.0-47.0); Hemoglobin 11.5 g/dl (12.0-16.0); Imm Gran Abs Auto 0.51 X10*3/uL (0.00-0.03); Lymphocytes Absolute Auto 2.3 X10*3/uL (1.2-4.9); Lymphocytes Percent Auto 13.6 % (20-40); Mean Corpuscular HGB Conc 33.4 g/dl (31.0-35.0); Mean Corpuscular Hemoglobin 32.2 pg (27.0-33.0); Mean Corpuscular Volume 96.4 fL (80.0-98.0); Mean Platelet Volume 10.8 fL (9.4-12.3); Monocytes Absolute Auto 0.9 X10*3/uL (0.1-1.2); Monocytes Percent Auto 5.4 % (2-11); NRBC Pct Auto 0.4 /100WBC (0.0-0.2); Neutrophils Absolute Auto 12.8 x10*3/uL (2.0-8.3); Neutrophils Percent Auto 76.3 % (45-73); Platelet Count 156 X10*3/uL (160-400); Red Blood Count 3.57 X10*6/uL (4.20-5.50); Red Cell Distribution Width 15.9 % (11.0-16.0); White Blood Count 16.8 X10*3/uL (4.8-10.8)
[2024-07-04 09:37] LABS: Anion Gap 13 (12-20); Blood Urea Nitrogen 21 mg/dL (9-16); Carbon Dioxide 28 mmol/L (22-29); Chloride 108 mmol/L (96-108); Creatinine Clr Calc Pharmacy 31.7; Estimated Glomerular Filt Rate 43; Glucose Random 129 mg/dL (60-115); Magnesium 2.1 mg/dL (1.6-2.6); Phosphorus 2.4 mg/dL (2.7-4.5); Potassium 3.2 mmol/L (3.3-5.1); Sodium 146 mmol/L (135-145)
--- NOTE | 2024-07-04 10:35 | W.MHC.F2F ---
Service Date Service Date: 07/04/24 Encounter Date of encounter: 07/04/24 Reasons for Services Signs and symptoms assessed: new DM teaching/education, CHF education Reason for chcf: CV/CP assess and/or care, diabetic teaching, monitoring of unstable blood sugar and teach disease management MD Overseeing Care: Monica Arciniega Homebound: Leaving the home is medically contraindicated at this time without the asist of a device and/or another person due th the listed conditions above and below. Reason homebound: unsteady gait / fall risk Certification: Based on the above findings, I certify that this patient is confined to the home and needs intermittent chcf care, physical therapy and/or speech therapy, or continues to need occupational therapy. The patient is under my care, and I have initiated the establishment of the plan of care. The patient will be followed by a physician who will periodically review the plan of care. Time Spent With Patient Time: Total time managing care of this patient today ____ minutes.
--- NOTE | 2024-07-04 11:08 | MHC.SL.SWA ---
Speech Pathologist Impression: Risk of Aspiration Risk of Aspiration Due to: Medically Fragile Hx of Recent Extubation Dysphasia Diet Status: No Change Liquid Consistency and Strategies for Safe Swallow: Liquid Intake Recommendation: Thin Liquid Intake Strategies: Small Sips Solid Food Consistency: Dietary Recommendations: Regular Additional Modifications to Solid Foods: Discharge summary up to date. Oral Medication Intake: Crushed with Puree Please contact the pharmacy regarding appropriate crushable or liquid drug formulations that are available whenever modified delivery is recommended. Compensatory Strategies and Precautions to be Taken for Safe Swallow: Sitting Upright (90 deg) Double Swallow No Straw Small Bites and Sips Alternate Liquids/Solids Rate of Ingestion Change Supervision While Eating and Drinking for Safe Swallow: Total Supervision (1:1) Foods to Avoid: [place] tough or difficult to chew solids Swallowing Recommended Treatments: Compens. Strategy Educat. Recommendation for Speech: D/C Intake Recommendations: Patient had MBSS on 07/02/24: Trace penetration above the vocal folds on thin and nectar thick consistencies. No subsequent aspiration. Trace oral and pharyngeal residue spontaneously cleared. Recommend REGULAR texture diet and THIN liquids, with the provision patient/caregivers select foods which are easier to chew and patient can manage orally. Patient?s daughter reports this is patient?s baseline and that she especially enjoys sandwiches. Pills to be given WHOLE or CRUSHED in PUREE. Patient can be impulsive when self-feeding, as patient?s daughter reports patient has a tendency to eat and drink very quickly. Patient will need 1:1 supervision during PO intake, provide cues as needed for safe feeding strategies. The following strategies are recommended to maximize safety: -take small bites -chew food well -alternate bites with sips -ensure oral cavity is clear before taking more bites -take small sips by spoon or cup -avoid the use of straws -take one sip at a time, no sequential sipping -avoid foods which are overly tough or difficult to chew. On Site Soil Evaluator Clinican/Clinical Fellow: No Supervisory Statement: I have reviewed and agree with the student/clinical fellow's documentation: N/A Speech Language Pathologist: Rebekah Bagley M.A., CCC-DESILVERIZER
--- NOTE | 2024-07-04 11:40 | MHC.CM.PN ---
PT MEDICALLY CLEARED FOR DC HOME W/FAMILY SUPPORT, NEW [facility] VNA AND NOTE TO RETURN TO HER CHD DAY PROGRAM ON 07/12/24. [facility] WILL TRANSPORT PT HOME VIA CHA[facility] VAN AT 5PM, [facility] R[facility] ID#[id number]
--- NOTE | 2024-07-05 16:11 | MHC.CM.PN ---
MC RECEIVED MESSAGE FROM [facility], CM CALLED BACK AND [facility] WHO ADDED [facility] REQUESTING PT AND WOUND CARE BE ADDED TO FACE TO FACE, HOSPITALIST AWARE AND HAS COMPLETED, CM TO SEND TO [facility] VIA [facility].
== END 2024-07-04 17:34 | disposition home health service (06) | DRG 871 ==
LOC: HO.ED 14:10 → HO.EDOVER 20:24 → HO.S3 06-26 23:33 → HO.ICU 06-27 10:14 → HO.IMC 06-29 11:39
PROVIDERS: Family Medicine; Internal Medicine; Internal Medicine Critical Care Medicine; Physician Assistant; Physician Assistant Medical; Registered Nurse Community Health; Admitting Provider Student in an Organized Health Care Education/Training Program; Emergency Provider Emergency Medicine; PCP Internal Medicine; Visit Provider Physician Assistant Medical
DX: A41.9 Sepsis, unspecified organism (principal); J18.9 Pneumonia, unspecified organism; J96.21 Acute and chronic respiratory failure with hypoxia; N17.9 Acute kidney failure, unspecified; Z68.43 Body mass index [BMI] 50.0-59.9, adult; E87.0 Hyperosmolality and hypernatremia; J44.1 Chronic obstructive pulmonary disease with (acute) exacerbation; J44.0 Chronic obstructive pulmonary disease with (acute) lower respiratory infection; R65.20 Severe sepsis without septic shock; I48.0 Paroxysmal atrial fibrillation; I25.10 Atherosclerotic heart disease of native coronary artery without angina pectoris; F03.90 Unspecified dementia, unspecified severity, without behavioral disturbance, psychotic disturbance, mood disturbance, and anxiety; D69.6 Thrombocytopenia, unspecified; E11.65 Type 2 diabetes mellitus with hyperglycemia; E66.01 Morbid (severe) obesity due to excess calories; Z71.3 Dietary counseling and surveillance; Z20.822 Contact with and (suspected) exposure to COVID-19; Z87.440 Personal history of urinary (tract) infections; Z99.81 Dependence on supplemental oxygen; Z95.1 Presence of aortocoronary bypass graft; Z79.51 Long term (current) use of inhaled steroids; Z79.82 Long term (current) use of aspirin; Z79.84 Long term (current) use of oral hypoglycemic drugs; Z79.899 Other long term (current) drug therapy
CPT/HCPCS: 0241U; 36415; 71045; 71250; 74018; 74177; 74230; 76775; 80048; 80076; 80202; 81001; 82570; 82803; 82947; 83036; 83605; 83735; 83880; 84100; 84145; 84300; 84484; 85025; 85027; 87040; 87070; 87205; 87449; 87493; 87899; 92526; 92610; 92611; 93005; 94002; 94003; 94640; 97162; 99285; C1758; J0360; J0613; J1171; J1265; J1650; J1940; J2060; J2270; J2405; J2470; J2543; J2704; J2919; J3010; J3260; J3370; J7120; P9047; Q9967

== ENCOUNTER → 2024-06-25 14:55 | Outpatient (BNV) | payer OTHER, SELFPAY | PROVIDERS: Emergency Provider Emergency Medicine; PCP Internal Medicine; Visit Provider Radiology Diagnostic Radiology | DX: K59.00 Constipation, unspecified (principal); R07.9 Chest pain, unspecified | CPT/HCPCS: 71045; 74018 ==

== ENCOUNTER → 2024-06-25 14:56 | Outpatient (BNV) | payer OTHER, SELFPAY | PROVIDERS: Admitting Provider Student in an Organized Health Care Education/Training Program; Emergency Provider Emergency Medicine; PCP Internal Medicine; Visit Provider Internal Medicine Cardiovascular Disease | DX: R94.31 Abnormal electrocardiogram [ECG] [EKG] (principal) | CPT/HCPCS: 93010 ==

== ENCOUNTER 2024-06-25 20:16 | Outpatient (BNV) | payer OTHER, SELFPAY | END 2024-06-26 08:51 | PROVIDERS: Admitting Provider Student in an Organized Health Care Education/Training Program; Emergency Provider Emergency Medicine; PCP Internal Medicine; Visit Provider Radiology Diagnostic Radiology | DX: J18.9 Pneumonia, unspecified organism (principal); N17.9 Acute kidney failure, unspecified | CPT/HCPCS: 71250; 76775 ==

== ENCOUNTER 2024-06-25 20:16 | Outpatient (BNV) | payer OTHER, SELFPAY | END 2024-06-27 10:45 | PROVIDERS: Admitting Provider Student in an Organized Health Care Education/Training Program; Emergency Provider Emergency Medicine; PCP Internal Medicine; Visit Provider Radiology Diagnostic Radiology | DX: R14.0 Abdominal distension (gaseous) (principal); R09.02 Hypoxemia; Z93.4 Other artificial openings of gastrointestinal tract status | CPT/HCPCS: 71045; 71250; 74177 ==

== ENCOUNTER 2024-06-25 20:16 | Outpatient (BNV) | payer OTHER, SELFPAY | END 2024-06-30 09:05 | PROVIDERS: Admitting Provider Student in an Organized Health Care Education/Training Program; Emergency Provider Emergency Medicine; PCP Internal Medicine; Visit Provider Radiology Vascular & Interventional Radiology | DX: R09.02 Hypoxemia (principal) | CPT/HCPCS: 71045 ==

== ENCOUNTER 2024-06-25 20:16 | Outpatient (BNV) | payer OTHER, SELFPAY | END 2024-07-02 08:00 | PROVIDERS: Admitting Provider Student in an Organized Health Care Education/Training Program; Emergency Provider Emergency Medicine; PCP Internal Medicine; Visit Provider Physician Assistant Surgical | DX: R13.10 Dysphagia, unspecified (principal) | CPT/HCPCS: 74230 ==

== ENCOUNTER 2024-06-25 20:16 | Outpatient (BNV) | payer OTHER, SELFPAY | END 2024-06-28 | PROVIDERS: Admitting Provider Student in an Organized Health Care Education/Training Program; Emergency Provider Emergency Medicine; PCP Internal Medicine; Visit Provider Internal Medicine Cardiovascular Disease | DX: R94.31 Abnormal electrocardiogram [ECG] [EKG] (principal) | CPT/HCPCS: 93010 ==

== ENCOUNTER 2024-06-25 20:16 | Outpatient (BNV) | payer OTHER, SELFPAY | END 2024-06-27 20:51 | PROVIDERS: Admitting Provider Student in an Organized Health Care Education/Training Program; Emergency Provider Emergency Medicine; PCP Internal Medicine; Visit Provider Internal Medicine Cardiovascular Disease | DX: R94.31 Abnormal electrocardiogram [ECG] [EKG] (principal) | CPT/HCPCS: 93010 ==

== ENCOUNTER → 2024-06-25 20:16 | Outpatient (BNV) | payer OTHER, SELFPAY | PROVIDERS: Admitting Provider Student in an Organized Health Care Education/Training Program; Emergency Provider Emergency Medicine; PCP Internal Medicine; Visit Provider Internal Medicine Critical Care Medicine | DX: J96.01 Acute respiratory failure with hypoxia (principal) | CPT/HCPCS: 31500; 99499 ==

== ENCOUNTER → 2024-06-25 20:16 | Outpatient (BNV) | payer OTHER, SELFPAY | PROVIDERS: Admitting Provider Student in an Organized Health Care Education/Training Program; Emergency Provider Emergency Medicine; PCP Internal Medicine; Visit Provider Physician Assistant | DX: I50.9 Heart failure, unspecified (principal) | CPT/HCPCS: 99223; 99232; 99233 ==

== ENCOUNTER 2024-07-08 17:46 | Outpatient (REF) | payer OTHER, SELFPAY ==
--- OUTSIDE RECORDS SUMMARY | 2024-07-08 20:08 | XMS_ITS | Clinical Summary ---
Author Organization [facility] Facility Address [address] [address] Care Team Providers Care Waiter/Waitress Second Class Name Role Phone Unavailable Primary Care Provider Unavailabl e Allergies Active Allergy Reactions Criticality Noted Date Comments Carvedilol 12/09/2022 Heparin 12/09/2022 Patient developed hemorrhagic bullae. Sertraline 12/09/2022 Spironolactone 12/09/2022 Medications albuterol HFA (Ventolin HFA) 108 (90 Base) MCG/ACT inhaler Ventolin HFA 90 mcg/actuation aerosol inhaler INHALE 2 PUFFS BY MOUTH AND ITL FOUR TIMES A DAY IF NEEDED 8 Active aspirin (ST RAYO) 81 MG EC tablet aspirin 81 mg tablet,delayed release TAKE 1 TABLET BY MOUTH ONCE DAILY 7 Active atorvastatin (Lipitor) 40 MG tablet Take 40 mg by mouth 3 Active ferrous sulfate 325 (65 Fe) MG tablet Take 325 mg by mouth 3 Active doxycycline (VIBRAMYCIN) 100 MG capsule 1 capsule in the morning and 1 capsule in the evening. Active docusate sodium (DOK) 100 MG capsule DOK 100 mg capsule TAKE 1 CAPSULE BY MOUTH TWICE DAILY 3 Active clobetasol (TEMOVATE) 0.05 % cream APPLY SPARINGLY TO AFFECTED AREA(S) TWICE DAILY 4 Active benzonatate (TESSALON) 200 MG capsule benzonatate 200 mg capsule TAKE ONE CAPSULE BY MOUTH THREE TIMES A DAY NEEDED FOR COUGH. Active levalbuterol (XOPENEX) 1.25 MG/3ML nebulizer solution Inhale 1.25 mg 3 Active isosorbide mononitrate (IMDUR) 30 MG 24 hr tablet Take 30 mg by mouth 3 Active ipratropium-alb uterol (DUO-NEB) 0.5-2.5 mg/3 mL nebulizer solution ipratropium 0.5 mg-albuterol 3 mg (2.5 mg base)/3 mL nebulization soln inhale contents of 1 vial ( 3 milliliters ) in nebulizer by mouth and INTO THE LUNGS twice a day Active furosemide (LASIX) 20 MG tablet furosemide 20 mg tablet TAKE 1 TABLET BY MOUTH TWICE DAILY Active fluticasone (FLONASE) 50 MCG/ACT nasal spray fluticasone propionate 50 mcg/actuation nasal spray,suspension USE 1 SPRAY INTO EACH NOSTRIL ONCE A DAY Active metoprolol tartrate (LOPRESSOR) 50 MG tablet metoprolol tartrate 50 mg tablet TAKE 1 TABLET BY MOUTH TWICE DAILY Active montelukast (SINGULAIR) 10 MG tablet montelukast 10 mg tablet TAKE 1 TABLET BY MOUTH EVERY DAY 2 Active mirtazapine (REMERON) 15 MG tablet Take 7.5 mg by mouth 3 Active Multiple Vitamins tablet Take 1 tablet by mouth 1 (one) time each day 3 Active omeprazole (PriLOSEC) [address] capsule omeprazole 20 mg capsule,delayed release TAKE 1 CAPSULE BY MOUTH EVERY DAY 9 Active nystatin (Nystop) powder Nystop 100,000 unit/gram topical powder Active nitroglycerin (NITROSTAT) 0.[address] 1 tablet under the tongue 2 Active mupirocin (BACTROBAN) 2 % ointment mupirocin 2 % topical ointment APPLY A SMALL AMOUNT EXTERNALLY TO THE AFFECTED AREA THREE TIMES A DAY Active traMADol (ULTRAM) 50 MG tablet tramadol 50 mg tablet TAKE 1 TABLET BY MOUTH TWICE DAILY 8 Active torsemide (DEMADEX) 20 MG tablet Take 40 mg by mouth 3 Active simvastatin (ZOCOR) 20 MG tablet simvastatin 20 mg tablet TAKE 1 TABLET BY MOUTH AT BEDTIME 9 Active pantoprazole (PROTONIX) 40 MG EC tablet Take 40 mg by mouth 3 Active Active Problems Problem Noted Date Diagnosed Date Acute posthemorrhagic anemia 12/09/2022 Dyspepsia 12/09/2022 Hypomagnesemia 12/09/2022 Hypokalemia, excessive renal losses 12/09/2022 Hypervolemia 12/09/2022 Respiratory insufficiency 12/09/2022 Paroxysmal atrial fibrillation 12/09/2022 Shortness of breath 12/09/2022 Thrombocytopenia 12/09/2022 Chronic obstructive pulmonary disease 10/11/2017 Gastroesophageal reflux disease 10/11/2017 Hyperlipidemia 10/11/2017 Hypertension 10/11/2017 Nodule of lung 04/12/2017 Constipation 10/28/2016 Coronary arteriosclerosis 08/08/2016 Uninodular goiter 03/30/2016 History of Lyme disease 12/17/2013 Insomnia 10/02/2013 Overactive bladder 07/22/2013 Arthritis 04/22/2013 Social History Tobacco Use Types Packs/Day Years Used Date Smoking Tobacco: Never Assessed Comments Unknown Sex and Gender Information Value Date Recorded Sex Assigned at Not on file Legal Sex Female 11:30 AM EDT Gender Identity Not on file Sexual Orientation Not on file Plan of Treatment Health Maintenance Due Date Last Done Comments Influenza Vaccine (#1) 2024 04/26/2017 Pneumococcal Vaccine: 65+ Years Completed 04/26/2017, 12/23/2014 Hepatitis B Vaccine Aged Out No longe r eligible based on patient's age to complete this topic Insurance [facility] ([id number]) [facility] ([id number])
--- OUTSIDE RECORDS SUMMARY | 2024-07-08 20:08 | XMS_ITS | Data Portability ---
Author Organization [employer] [facility], [place] in - Formerly [facility] Address [address] [place] [phone] Care Team Providers Care Distribution System Operator Name Role Phone [facility] Referring Provider [phone] Assessment Encounter Date Assessment Date Assessment LastModified [...] Assessment and Plan as documented by the Integrated Circuit Layout Designer. Patient /daughter given the opportunity to ask questions. Advised if develops CP/severe SOB/turning blue/uncontrolle d n/v/d or black/bloody emesis or stool/ AMS/ syncope/ hi fever to call 911- daughter verbalized understanding of instructions to the medic [email or web address] Not available 12/12/2022 13:03:17 Plan of Treatment Reminders Order Date Submit Date Provider Last Modified By Organization Details Last Modified Time Details Appointments None recorded. Lab culture, urine 2022 023 [email or web address] [facility], [address], [place], [address], 07:20:43 urinalysis, dipstick 2022 023 [email or web address] 0 [facility], [address] [place] [address], [phone], 13:03:23 glucose, fingerstick , blood 2022 023 [email or web address] 0 [facility], [address] [place] [address], [place], [phone], 13:03:23 Referral None recorded. Procedures None recorded. Surgeries None recorded. Imaging None recorded. Medication Orders cefpodoxime 200 mg tablet 2022 023 [id number], [address], [place], [phone], 12:57:14 cefpodoxime 200 mg tablet 2022 023 [email or web address] 0 Not available 12:57:07 Patient TargetsNo targets recorded. Patient InstructionsNo instructions recorded. Reason for Referral None Reported. Results Created Date Observation Date Name Description Value Unit Range Abnormal Flag Note LastModifiedBy Organization Detail LastModifiedTime 12/13/1912/12/2022 URINE CULTU RE specimen description URINE Not Available [facility] [address] [place], [id number], 12/14/2022 07:20:43 12/13/19 23 12/12/2022 URINE CULTU RE special requests NONE Not Available [facility] [address] [place], [address], 12/14/2022 07:20:43 12/13/19 23 12/14/2022 URINE CULTU RE culture Mixed bacter ial rowdy, indica tive of urogen ital contam inatio n. Not Available [facility] [address] [place], [address], 12/14/2022 07:20:43 12/13/19 23 12/14/2022 URINE CULTU RE report status FINAL 2022 Not Available [facility] [address] [place], [address], 12/14/2022 07:20:43 12/13/19 23 12/12/2022 urina lysis , dipst ick Leukocytes 500 Not Available Main - [facility] [address] [place] [address], [phone], 12/12/2022 12:57:33 12/13/19 23 12/12/2022 urina lysis , dipst ick Nitrite positi ve Not Available Main - [facility] [address] [place] [address], [phone], 12/12/2022 12:57:33 12/13/19 23 12/12/2022 urina lysis , dipst ick Urobilinogen 0.2 Not Available Main - [facility] [address] [place] [address], [phone], 12/12/2022 12:57:33 12/13/19 23 12/12/2022 urina lysis , dipst ick Protein 30 Not Available Main - Ins [address], [address], 12/12/2022 12:57:33 12/13/19 23 12/12/2022 urina lysis , dipst ick pH 7.5 Not Available Main - Ins [address], [phone], 12/12/2022 12:57:33 12/13/19 23 12/12/2022 urina lysis , dipst ick Blood + Not Available Main - Ins [address], [address], 12/12/2022 12:57:33 12/13/19 23 12/12/2022 urina lysis , dipst ick Specific Bedford 1.005 Not Available Main - [facility] [address] [place] [address], [phone], 12/12/2022 12:57:33 12/13/19 23 12/12/2022 urina lysis , dipst ick Ketone neg Not Available Main - Ins [address], [address], 12/12/2022 12:57:33 12/13/19 23 12/12/2022 urina lysis , dipst ick Bilirubin neg Not Available Main - I nsted [address] [place] [address], [address], 12/12/2022 12:57:33 12/13/19 23 12/12/2022 urina lysis , dipst ick Glucose neg Not Available Main - Ins sandra [address] [place] [address], [phone], 12/12/2022 12:57:33 12/13/19 23 12/12/2022 urina lysis , dipst ick Appearance cloudy Not Available Main - [facility] [address] [place] [address], [phone], 12/12/2022 12:57:33 12/13/19 23 12/12/2022 urina lysis , dipst ick Color yellow Not Available Main - Ins [address], [address], 12/12/2022 12:57:33 12/13/19 23 12/12/2022 gluco se, finge rstic k, blood Blood Glucose: mg/dl 190 Not Available Main - [facility] [address] [place] [address], [phone], 12/12/2022 12:57:38 Result Notes None recorded. Medical Equipment None Reported. Allergies Allergen ID Allergen Name Allergen Category Reaction Reaction Severity Criticality Documentation Date Start Date Code Code System Note Provider Name and Address Organization Details Recorded Time 2694 cetirizin e medicatio n Not available Not available Not available 12/12/2022 28799 RxNorm Alexandria Shea MD [address] [place] [address],[address], [place], [address], [employer], [facility] 12:51:29 2696 spironola ctone medicatio n Not available Not available Not available 12/12/2022 9997 RxNorm Alexandria Shea MD [address] [place] [address],[address], [place], [phone], [facility] 12:51:49 2697 carvedilo l medicatio n Not available Not available Not available 12/12/2022 89704 RxNorm Alexandria hSea MD [address] [facility],[address], [place], [address], [facility] 12:51:56 Medications Name Sig Start Date Stop [...] [degF] 92 /min 99 % 99 % 57342.5 52 g 14 /min 138 mm[Hg] 67 mm[Hg] 138 mm[Hg] 67 mm[Hg] Not Available [facility] 13:17:06 Date Recorded Body weight Provider Name an d Address Organization Details Last Updated DateTime 12/12/2022 58591.6 g Jose Martin Shelton [address] [place] [address],[address], [place], [address], [place] - [address] [facility] 12/12/2022 13:03:46 Date Recorded Body temperature Heart rate Oxygen saturation Oxygen saturation in Arterial blood by Pulse oximetry Respiratory rate Systolic blood pressure Diastolic blood pressure Provider Name and Address Organization Details Last Updated DateTime 2 97.8 [degF] 97 /min 97 % 97 % 18 /min 114 mm[Hg] 76 mm[Hg] Not Available [facility] 13:50:19 Social History None recorded. Functional Status None recorded. Mental Status None recorded. Family History Nothing Reported. Medical History No medical history recorded. Gynecological HistoryNo gynecological history recorded. Obstetrics History GPAL:G 0 P 0 0 0 0 Past Encounters Encounter ID Performer Location Encounter Start Date Encounter Closed Date Diagnosis/Indication Diagnosis SNOMED-CT Code Diagnosis ICD10 Code Diagnosis Note [id number] Jacobo Disla MD [email or web address] [address] [place] [phone] 03/08/2022 13:34:54 03/11/2022 16:53:14 Wound of skin 831363687 T14.8XXA [id number] Alexandria Shea MD [facility] [address] [place] [phone] 12/12/2022 12:48:46 12/13/2022 10:47:07 Urinary symptoms 314113256 R39.9 recurrent uti. Pat has tolerated cefpodoxim [...] Salcido Member ID Guarantor Name 03/08/2022 1 [facility] - DOS PRIOR TO 2022 - DUAL ELIGIBLE (MEDICARE REPLACEMENT/ADV ANTAGE - HMO) Jenifer Harperpek [id number] Jenifer Harperpek 12/12/2022 1 [facility] - DOS ON OR AFTER 2022 - DUAL ELIGIBLE - GROUP HOME OPTIONS AND ONE CARE (MEDICARE REPLACEMENT/ADV ANTAGE - HMO) Jenifer Sypek [id number] Jenifer Harperperoberta Notes Date Note Type Note [...] Comments: Members dtr calling to place an [facility] referral. Mom with paper thin skin, and on blood thinners. She was getting up to go to the bathroom, she turned her walker and hit her left ankle. Site is about the size of quarter, area has been bleeding off/on since 3am. Daughter has put gauze, triple abx ointment and wrap. Would like area assessed. Jacobo Disla MD [address] [facility],[address], [place], [address], [facility] 03/08/2022 13:59:24 12/12/2022 text/html CRC Nursing Assessment: [...] .................. .................. .................. .................. .................. .................. ...... Integrated Circuit Layout Designer Note From Gavin Snow: Pt's daughter suspects [...] ............... Disposition: Fulfilled Alexandria Shea MD [address] [facility],[address], [place], [address], [facility] 12/12/2022 13:35:09 OBGyn Episode No OBEpisode recorded.
[2024-07-09 11:38] LABS: CDiff Gene PCR NEGATIVE (Negative)
== END 2024-07-08 17:47 | disposition home or self-care (01) ==
LOC: HO.LNP 17:46
PROVIDERS: Visit Provider Internal Medicine
DX: E11.65 Type 2 diabetes mellitus with hyperglycemia (principal); I50.33 Acute on chronic diastolic (congestive) heart failure; J96.01 Acute respiratory failure with hypoxia; R13.10 Dysphagia, unspecified; R19.7 Diarrhea, unspecified
CPT/HCPCS: 87493

== ENCOUNTER → 2024-07-18 13:29 | Outpatient (BNVA) | payer OTHER, SELFPAY | PROVIDERS: PCP Internal Medicine; Visit Provider Hospitalist | DX: J44.0 Chronic obstructive pulmonary disease with (acute) lower respiratory infection (principal); J47.0 Bronchiectasis with acute lower respiratory infection; I50.9 Heart failure, unspecified; J15.1 Pneumonia due to Pseudomonas; R91.8 Other nonspecific abnormal finding of lung field; R06.02 Shortness of breath; R10.84 Generalized abdominal pain | CPT/HCPCS: 99212 ==

== ENCOUNTER 2024-07-30 13:10 | Inpatient (IN) | payer OTHER, SELFPAY ==
--- NOTE | ~2024-07-30 | XR_ITS ---
EXAMINATION: XR CHEST CLINICAL INFORMATION: sob cough COMPARISON: 06/30/2024. TECHNIQUE: Frontal view of the chest was obtained. FINDINGS: There is mild cardiac enlargement. Mediastinal and hilar contours appear normal. Surgical clips overlying the mediastinum with sternotomy, likely CABG. There is a patchy right basilar opacity. There is linear left base scar or atelectasis. No pneumothorax or effusion. There is a bone island in the right scapula. There are spinal and right shoulder degenerative changes. XR/XR chest 1V IMPRESSION: 1. Subtle opacity right base, possible pneumonia. 2. Mild cardiac enlargement with surgical changes status post CABG. Electronically signed by: Dawood Elmore MD 07/30/2024 02:10 PM LIAN
--- NOTE | 2024-07-30 13:16 | ED_ITS ---
HPI - General Adult General Chief complaint: Recheck/Abnormal Lab/Rx Stated complaint: abn labs, UTI Time Seen by Provider: 07/30/24 13:15 Source: patient, EMS, RN notes reviewed and old records reviewed Mode of arrival: EMS History of Present Illness ED Provider: Negrita Mary PA-C HPI narrative: 83-year-old female with a past medical history of COPD on p.r.n. O2, CHF, recurrent UTIs, proximal AFib not anticoagulated, CAD, CABG x4, dementia, HLD, Pseudomonas pneumonia, recently discharged from our facility for acute hypoxic respiratory failure due to COPD and sepsis due to pneumonia, discharged on 07/04/2024, presenting to ED via EMS with complaints of UTI found outpatient by [facility] growing ESBL on culture. Most history obtained from daughter states patient was acting funny, at baseline at present, similar to prior UTIs in the past. Patient reports cough and dysuria. Denies new or worsening SOB, CP, abdominal pain, nausea/vomiting. Related Data Home Medications ?Medication ?Instructions ?Recorded ?Confirmed fluticasone propionate 50 1 spray intranasal BID 03/22/22 06/25/24 mcg/actuation nasal spray,suspension montelukast 10 mg tablet 10 mg PO BEDTIME 03/22/22 06/25/24 nebulizers 03/22/22 11/09/23 albuterol sulfate 90 mcg/actuation 2 puff inhalation Q4-6H PRN 11/02/22 06/25/24 aerosol inhaler (Ventolin HFA) Shortness Of Breath Or Wheezing aspirin 81 mg tablet,delayed 81 mg PO DAILY 11/02/22 06/25/24 release isosorbide mononitrate 30 mg 30 mg PO DAILY 11/02/22 06/25/24 tablet,extended release 24 hr pantoprazole 40 mg tablet,delayed 40 mg PO BID 11/02/22 06/25/24 release acetaminophen 325 mg tablet 650 mg PO Q6H PRN Pain 01/13/23 06/25/24 multivitamin 1 tab PO DAILY 01/13/23 06/25/24 potassium chloride 20 mEq 20 meq PO DAILY 01/13/23 06/25/24 tablet,extended release quetiapine 50 mg tablet 50 mg PO BEDTIME 01/13/23 06/25/24 Lactobacillus acidophilus 500 500,000,000 cell PO DAILY 03/25/23 06/25/24 million cell capsule cyanocobalamin (vitamin B-12) 1,000 mcg PO DAILY 03/25/23 06/25/24 1,000 mcg tablet nystatin 100,000 unit/gram topical 1 appl topical BID PRN Rash 03/25/23 06/25/24 powder ferrous sulfate 325 mg (65 mg 325 mg PO BEDTIME 06/25/24 06/25/24 iron) tablet insulin lispro 100 unit/mL subcut 07/18/24 subcutaneous pen (Humalog KwikPen (U-100) Insulin) Previous Rx's ?Medication ?Instructions ?Recorded inhalational spacing device #1 ea 10/07/22 (Aerochamber MV spacer) atorvastatin 40 mg tablet (Lipitor) 40 mg PO BEDTIME #30 tabs 10/10/22 metoprolol tartrate 25 mg tablet 25 mg PO BID #60 tabs 03/30/23 tobramycin 300 mg/4 mL solution 300 mg (4 mL) inhalation BID 28 02/08/24 for nebulization days #224 mL umeclidinium 62.5 mcg-vilanterol 1 ea inhalation DAILY 30 days #60 02/15/24 25 mcg/actuation powdr for ea inhalation (Anoro Ellipta) levalbuterol HCl 1.25 mg/3 mL 1.25 mg (3 mL) PO QID #1,050 mL 03/26/24 solution for nebulization alcohol swabs 1 pad topical QIDACHS #100 ea 07/03/24 blood sugar diagnostic (FreeStyle #100 ea 07/03/24 Lite Strips) blood-glucose meter (FreeStyle #1 ea 07/03/24 Lite Meter kit) furosemide 40 mg tablet 40 mg PO DAILY #90 tabs 07/03/24 lancets 28 gauge (FreeStyle #100 ea 07/03/24 Lancets) pen needle, diabetic 32 gauge x #100 ea 07/03/24 1/4 zinc oxide 12.8 % topical ointment 1 appl topical QID 30 days #227 07/03/24 (Triple Paste) grams prednisone 10 mg tablet See Taper PO DIRECTED #30 tabs 07/04/24 doxycycline monohydrate 100 mg 100 mg PO BID 28 days #56 tabs 07/18/24 tablet nystatin 100,000 unit/mL oral 100,000 unit PO BID 30 days #60 mL 07/18/24 suspension prednisone 10 mg tablet 20 mg (2 x 10 mg) PO DAILY 30 days 07/18/24 #60 tabs Allergies Allergy/AdvReac Type Severity Reaction Status Date / Time carvedilol Allergy Shortness Verified 07/30/24 13:22 of Breath sertraline [From Zoloft] Allergy Shortness Verified 07/30/24 13:22 of Breath spironolactone Allergy Shortness Verified 07/30/24 13:22 of Breath adhesive tape AdvReac Severe skin tears Verified 07/30/24 13:22 mirtazapine AdvReac Severe psychotic Verified 07/30/24 13:22 episode Review of Systems 2 Review of Systems: Yes all other systems are reviewed and are negative Constitutional: Constitutional: Reports as per [facility] Past Medical History Attestation statement: The following information was validated with the patient. Source: old records reviewed Medical History Diabetes Acute respiratory failure with hypoxia Congestive heart failure Mild bibasilar atelectasis Aspiration pneumonia Clostridioides difficile infection Pneumonia Atrial flutter Pyuria Atelectasis of right lung Encephalopathy chronic History of infection with vancomycin resistant Enterococcus (VRE) Heart failure Dyspnea Paroxysmal A-fib COPD (chronic obstructive pulmonary disease) A-fib Acute encephalopathy Anemia Pseudomonas respiratory infection CAD (coronary artery disease) Chronic dyspnea Acute hypokalemia Atrial fibrillation with RVR Anemia GI bleed Pulmonary nodules COPD (chronic obstructive pulmonary disease) Bronchiectasis Pseudomonal pneumonia Surgical History H/O umbilical hernia repair (09/18/22) History of quadruple bypass History of hip replacement History of knee replacement History of cholecystectomy Family History Family History Other No family history of cancer Social History Social History Household Members: Family and Children Housing: House Are you a primary critical care unit nurse to a significant other at home: No Do you presently have visiting nurse or other home services: Yes Alcohol intake: never Patient Tobacco Use Status: Former Tobacco user Tobacco use type: Cigarette Advance Directives: Yes Advance Directives on File: Yes Advance Directives Date on File: 08/24/22 Do you have a plan to hurt others: No Plan service: No Current occupational status: retired Physical Exam ED Vital Signs: Vital Signs - 24 hr 07/30/24 13:20 07/30/24 14:00 07/30/24 15:46 Temperature 98.4 F 97.4 F Pulse Rate 89 86 79 Respiratory Rate 16 18 20 Blood Pressure 130/61 118/64 Pulse Oximetry 98 100 Oxygen Delivery Method Room Air Room Air BMI result Body Mass Index 85.1 Const General: cooperative, healthy appearing and no acute distress Orientation/consciousness: patient oriented x3 Limitations: no limitations HENMT Head: Yes normal to inspection and Yes atraumatic Ears: hearing grossly normal bilaterally General nose exam: Normal external nose present Face and sinus: Yes normal facial exam Eyes General: appearance normal, both eyes and all related structures EOM: EOMs intact bilaterally Neck Neck: Yes normal visual inspection and Yes no meningeal signs Resp Effort & Inspection: normal respiratory effort and no respiratory distress Auscultation: wheezes expiratory wheezes, inspiratory wheezes and throughout Cardio Rate: regular rate Heart sounds: S1 normal heart sound present and S2 normal heart sound present GI Inspection: Yes normal to inspection Palpation (GI): Soft to palpation, nontender, no guarding and not rigid Skin Other: Superficial pressure wound noted to coccyx without surrounding erythema. No open wound Rashes: no rashes Neuro General: patient oriented x3, tone normal and no meningeal signs Cranial nerves: Yes CN's II-XII intact bilaterally Gait exam (Neuro): Normal gait present Extrem General: Yes normal to inspection Course Course Course Narrative: -[id number]--obtained fax with urine culture for patient from 07/29/2024. Culture grew Proteus mirabilis, susceptible to Augmentin, cefepime, cefoxitin, ertapenem, gentamicin, Zosyn, tobramycin -1600-- no leukocytosis. H/H slightly lower than baseline. + CANDIDO with BUN 31, creatinine 1.7. Lactic acid 2.4 -T bilirubin chronically elevated. Troponin 49.1 (chronically elevated) likely from CKD > will obtain 3 hour repeat. BNP 154 -viral testing negative XR chest 1V IMPRESSION: 1. Subtle opacity right base, possible pneumonia. 2. Mild cardiac enlargement with surgical changes status post CABG. > plan to admit for further management Medications Administered Discontinued Medications Generic Name Dose Route Start Last Admin Trade Name aGto PRN Reason Stop Dose Admin Piperacillin Sod/Tazobactam 100 mls @ 200 mls/hr 07/30/24 14:46 07/30/24 15:52 Sod 4.5 gm/ Sodium Chloride IV 07/30/24 15:15 200 mls/hr ONCE ONE Administration Levalbuterol HCl 1.25 mg 07/30/24 13:53 07/30/24 13:58 Levalbuterol Hcl 1.25 Mg/3 Ml Vial.Neb INHALE 07/30/24 13:54 1.25 mg ONCE ONE Administration Methylprednisolone Sodium Succinate 60 mg 07/30/24 13:56 07/30/24 15:52 Methylprednisolone Sod Succ 125 Mg/2 Ml Vial IVPUSH 07/30/24 13:57 60 mg ONCE ONE Administration Medical Decision Making Medical Decision Making MDM Narrative: 83-year-old female with a past medical history of COPD on p.r.n. O2, CHF, recurrent UTIs, proximal AFib not anticoagulated, CAD, CABG x4, dementia, HLD, Pseudomonas pneumonia, recently discharged from our facility for acute hypoxic respiratory failure due to COPD and sepsis due to pneumonia, discharged on 07/04/2024, presenting to ED via EMS with complaints of UTI found outpatient by [facility] growing ESBL on culture. On exam vital signs stable, NAD, nontoxic appearing, physical exam as noted above. Concern for ESBL UTI, will attempt to get culture results from [facility]. Concern for COPD exacerbation vs viral illness vs pneumonia vs bronchitis. Lower suspicion for acute ACS at this time Plan: Labs, UA, culture/lactic, CXR, viral testing, ED bronch protocol, IV Solu-Medrol, IV antibiotics, anticipated admission Please refer to course for remaining clinical decision making, interpretation of labs/imaging results, and discussions with consultants and/or family members. Differential Diagnosis Differential Diagnoses: The differential diagnosis associated with the presentation includes As above Admission/Observation Consideration of admission/observation: Escalation of care including admission/observation considered Consult Healthcare Provider Management of the patient was discussed with: Hospitalist Lab Data [facility] Lab Attestation statement: I reviewed the patient's lab results. 07/30/24 14:43 07/30/24 14:43 Labs: Lab Results 07/30/24 07/30/24 Range/Units 14:43 14:44 WBC 9.2 (4.8-10.8) X10*3/uL RBC 2.94 L (4.20-5.50) X10*6/uL Hgb 9.7 L (12.0-16.0) g/dl Hct 29.3 L (37.0-47.0) % MCV 99.7 H (80.0-98.0) fL MCH 33.0 (27.0-33.0) pg MCHC 33.1 (31.0-35.0) g/dl RDW 17.0 H (11.0-16.0) % Plt Count 127 L (160-400) X10*3/uL MPV 11.7 (9.4-12.3) fL Immature Gran % (Auto) 1.2 H (0.0-0.4) % Neut % (Auto) 81.2 H (45-73) % Lymph % (Auto) 9.6 L (20-40) % [place] % (Auto) 6.2 (2-11) % Eos % (Auto) 1.4 (0-4) % Baso % (Auto) 0.4 (0-2) % Lymph # (Auto) 0.9 L (1.2-4.9) X10*3/uL [place] # (Auto) 0.6 (0.1-1.2) X10*3/uL Eos # (Auto) 0.1 (0.0-0.4) X10*3/uL Baso # (Auto) 0.0 (0.0-0.2) X10*3/uL Abs Immat Gran (auto) 0.11 H (0.00-0.03) X10*3/uL Absolute Neuts (auto) 7.5 (2.0-8.3) x10*3/uL Absolute Nucleated RBC 0.000 (0.0-0.012) X10*3/uL Nucleated RBC % (auto) 0.0 (0.0-0.2) /100WBC PT 12.3 (10.9-12.4) SEC INR 1.1 (0.9-1.1) Sodium 142 (135-145) mmol/L Potassium 3.7 (3.3-5.1) mmol/L Chloride 105 (96-108) mmol/L Carbon Dioxide 25 (22-29) mmol/L Anion Gap 16 (12-20) BUN 31 H (9-16) mg/dL Creatinine 1.70 H (0.5-1.4) mg/dL Estim Creat Clear Calc 46.8 Estimated GFR 29 Random Glucose 175 H (60-115) mg/dL Lactic Acid 2.4 H* (0.5-2.0) mmol/L Calcium 8.4 D (8.4-10.2) mg/dL Magnesium 1.8 (1.6-2.6) mg/dL Total Bilirubin 2.5 H (0.0-1.0) mg/dL Direct Bilirubin 0.6 H (0.0-0.5) mg/dL AST 31 (5-31) U/L ALT 35 H (0-31) U/L Alkaline Phosphatase 87 (39-117) U/L Troponin I High Sens 49.1 H (<3.5-17.0) ng/L B-Natriuretic Peptide 154 H (<100) pg/mL Total Protein 6.2 L (6.5-8.0) g/dL Albumin 3.4 L (3.5-5.0) g/dL Lipase 15 (8-78) U/L Influenza Type A (PCR) NEGATIVE (Negative) Influenza Type B (PCR) NEGATIVE (Negative) RSV RNA Qual (PCR) NEGATIVE (Negative) SARS-CoV-2 RNA (RT-PCR) NEGATIVE (Negative) Independent Interpretation I performed an independent interpretation of an: EKG Radiology Impression Discussion of test interpretation with radiology: I have reviewed the radiologist's reading. Independent Historian Clinical information obtained from an independent historian. History obtained from or confirmed by: EMS and Other External Record Review External record reviewed: Inpatient record, Office record, Outpatient record, Prior outpatient labs, Prior outpatient radiology, Primary care record and Outside ED record Tests considered The following testing was considered but not selected: As above Prescription Management I considered prescription management with: Pain Medication and Antibiotic Chronic Conditions Patient?s care impacted by: Other Social Determinants Patient?s care significantly limited by Social Determinants of Health including: Other Social Determinant of Health Critical Care Time Critical Care Time Critical Care Time: Yes Total Critical Care Time: 40 Attestation: I have personally provided critical care time exclusive of time spent on separately billable procedures. Time includes review of lab data, radiology results, discussion with consultants, and monitoring for potential decompensation. Intervention performed as documented. Discharge Plan Discharge Clinical Impression: Acute UTI, Pneumonia Patient Disposition: Admitted As Inpatient Print Language: Omani
[2024-07-30 13:17] VITALS: BP 141/89; PULSE 100; O2SAT 98
[2024-07-30 13:20] VITALS: BP 130/61; PULSE 89; RESP 16; TEMP 36.9; O2SAT 98; BMI 85.1
--- NOTE | 2024-07-30 13:25 | ECG_ITS ---
Test Reason : weakness Blood Pressure : */* mmHG Vent. Rate : 89 BPM Atrial Rate : 89 BPM P-R Int : 186 ms QRS Dur : 86 ms QT Int : 358 ms P-R-T Axes : 111 17 154 degrees QTcB Int : 435 ms Atrial tachycardia with block Possible Anterior infarct (cited on or before 28-Jun-2024) Nonspecific ST and T wave abnormality Abnormal ECG When compared with ECG of 28-Jun-2024 01:53, Vent. rate has increased by 34 bpm Referred By: Negrita Mary Electronically Signed By: ANETTE CABEZAS
[2024-07-30] MEDS: levalbuterol HCL 1.25 MG/3 ML VIAL.NEB INHALE ×2 (13:58→20:17)
[2024-07-30 14:00] VITALS: PULSE 86; RESP 18; O2SAT 97
[2024-07-30 14:51] LABS: MANUAL DIFF FLAG NO
[2024-07-30 14:55] LABS: Basophils Percent Auto 0.4 % (0-2); Eosinophils Absolute Auto 0.1 X10*3/uL (0.0-0.4); Eosinophils Percent Auto 1.4 % (0-4); Hematocrit 29.3 % (37.0-47.0); Hemoglobin 9.7 g/dl (12.0-16.0); Imm Gran Abs Auto 0.11 X10*3/uL (0.00-0.03); Imm Gran Pct Auto 1.2 % (0.0-0.4); Lymphocytes Absolute Auto 0.9 X10*3/uL (1.2-4.9); Lymphocytes Percent Auto 9.6 % (20-40); Mean Corpuscular HGB Conc 33.1 g/dl (31.0-35.0); Mean Corpuscular Volume 99.7 fL (80.0-98.0); Mean Platelet Volume 11.7 fL (9.4-12.3); Monocytes Absolute Auto 0.6 X10*3/uL (0.1-1.2); Monocytes Percent Auto 6.2 % (2-11); Neutrophils Absolute Auto 7.5 x10*3/uL (2.0-8.3); Neutrophils Percent Auto 81.2 % (45-73); Platelet Count 127 X10*3/uL (160-400); Red Blood Count 2.94 X10*6/uL (4.20-5.50); White Blood Count 9.2 X10*3/uL (4.8-10.8)
[2024-07-30 15:02] LABS: INTERNATIONAL NORM RATIO 1.1 (0.9-1.1); Prothrombin Time 12.3 SEC (10.9-12.4)
--- OUTSIDE RECORDS SUMMARY | 2024-07-30 15:04 | XMS_ITS | Clinical Summary ---
Author Organization [facility] Facility Address [address] [address] Care Team Providers Care Park Worker Supervisor Name Role Phone Unavailable Primary Care Provider [...] patient's age to complete this topic Insurance [facility] ([id number]) [facility] ([id number])
--- OUTSIDE RECORDS SUMMARY | 2024-07-30 15:05 | XMS_ITS | Continuity of Care Document ---
Author Organization [facility] Gone! [facility] Address [address] [place] [phone] Care Team Providers Care Transmitter Chief Name Role Phone HIM CCA OTHER GIANNI GU Primary Care Provider [phone] Assessment No assessment recorded. Plan of Treatment Reminders Order Date Submit Date Provider Last Modified By Organization Details Last Modified Time Details Appointments None recorded. Lab culture, urine 2024 025 LYNN HAVEN [facility], [address] [place] [address], [id number], 5 20:05:53 urinalysis, dipstick 2024 025 [facility], [address] [place] [address], [phone], 5 21:38:07 rapid flu (A+B) 2024 025 [facility], [address] [place] [address], [phone], 5 21:32:52 rapid SARS CoV 2 Ag, QL IA, respiratory specimen 2024 025 [facility], [address] [place] [address], [phone], 5 21:32:55 Referral None recorded. Procedures None recorded. Surgeries None recorded. Imaging None recorded. Medication Orders None recorded. Patient TargetsNo targets recorded. Patient InstructionsNo instructions recorded. Reason for Referral None Reported. Results Created Date Observation Date Name Description Value Unit Range Abnormal Flag Note LastModifiedBy Organization Detail LastModifiedTime 07/26/19 25 07/26/2024 rapid flu (A+B) Flu negati ve Not Available [facility] [address] [place] [address], [phone], 07/26/2024 20:55:44 07/26/19 25 07/26/2024 rapid SARS CoV 2 Ag, QL IA, respi rator y speci men rapid SARS CoV 2 Ag, QL IA, respiratory specimen negati ve Not Available [facility] [address] [place] [address], [phone], 07/26/2024 21:32:34 Result Notes None recorded. Medical Equipment None Reported. Allergies Allergen ID Allergen Name Allergen Category Reaction Reaction Severity Criticality Documentation Date Start Date Code Code System Note Provider Name and Address Organization Details Recorded Time 54243 mirtazapi ne medicatio n Not available Not available Not available 07/26/2024 86720 RxNorm Not Available [facility] - production 5 12:24:54 80766 sertralin e medicatio n Not available Not available Not available 07/26/2024 74203 RxNorm Not Available [facility] - production 5 12:24:54 2695 cetirizin e medicatio n Not available Not available Not available 12/12/2022 04521 RxNorm Alexandria Shea MD [address] [place] [address],[address], [place], [phone] [place] [address] Gone! [facility] 3 12:51:29 2696 spironola ctone medicatio n Not available Not available Not available 12/12/2022 9997 RxNorm Not Available [facility] - production 5 12:24:54 2697 carvedilo l medicatio n Not available Not available Not available 12/12/2022 91101 RxNorm Not Available [facility] - production 5 12:24:54 Medications Name Sig Start Date Stop Date [...] Available N ot Available Vitals Date Recorded Respiratory rate Heart rate Body temperature Oxygen saturation Oxygen saturation in Arterial blood by Pulse oximetry Systolic blood pressure Diastolic blood pressure Provider Name and Address Organization Details Last Updated DateTime 5 18 /min 62 /min 98.4 [degF] 97 % 97 % 144 mm[Hg] 88 mm[Hg] Not Available [facility] - [facility] 5 20:33:01 Social History None recorded. Functional Status None recorded. Mental Status None recorded. Family History Nothing Reported. Medical History No medical history recorded. Gynecological HistoryNo gynecological history recorded. Obstetrics History GPAL:G 0 P 0 0 0 0 Past Encounters Encounter ID Performer Location Encounter Start Date Encounter Closed Date Diagnosis/Indication Diagnosis SNOMED-CT Code Diagnosis ICD10 Code Diagnosis Note [id number] CARLOS LOUIE MD [facility] - [facility] [address] [place] [address] 07/26/2024 20:17:44 07/27/2024 09:55:15 Urinary symptoms 557033676 R39.9 Evaluation in the field was performed by my child watch attendant colleague, as noted above, I provided real-time direction and supervisio n for this visit. 83-year-ol d female with a history of hypertensi on, coronary artery disease, COPD/asthm a, congestive heart failure, atrial fibrillati on, and type 2 diabetes mellitus, presenting with concerns for a urinary tract infection as reported by her visiting nurse . The VNA noted that the patient has had increased confusion over the last few days, as well as urinary frequency and urgency. However, the patient's daughter, who is present during the visit, reports that the patient's mental status has returned to baseline today, and the urinary symptoms have resolved.T here were also concerns about lower extremity edema. The patient is on Lasix 40 mg daily. Recently, the patient was hospitaliz ed for a COPD exacerbati on and has been prescribed Prednisone and Doxycyclin e by her pulmonolog ist, which she is still taking.. VS: BP: 144/88 mmHg, HR: 62 bpm, RR: 18/minO2 Saturation s: 97% on room air at rest, Temperatur e: 98.4? ? ?FExam: Alert and oriented, no acute distressMe ntal status at baselineLu ngs clear to auscultati on bilaterall yNo lower extremity edema per child watch attendant examUA: Positive for leukocytes , ketones, and blood (patient had similar findings in December 2022 with a negative urine culture)Fl u and Covid : NegativeAl lergies reviewed Impression :Confusion , now resolved. Plan:-Sinc e the patient's symptoms have resolved, empiric treatment for UTI will not be initiated, particular ly as she is already on Doxycyclin e for her COPD.-A urine culture will be sent to [facility], and results will be monitored. If positive, treatment will be adjusted according to the sensitivit ies.-The daughter was advised to call if symptoms return or if the patient develops fever, chills, nausea, or altered mental status before the culture results are finalized. Empiric treatment will be considered if necessary. -The patient is advised to continue the current treatment regimen.-R ed flags were discussed with the daughter. Primary care, consider__ _ Dispositio n: We discussed the diagnostic uncertaint y of home visits and the risk associated with this. In this case, the patient and I felt this to be an acceptable and reasonable amount of risk given the benefit of avoiding an ED visit. We discussed the need to seek care urgently/e mergently in the setting of any new or worsening serious symptoms, particular ly fever, chills, CP, SOB, nausea, vomiting, worsening mental status, confusion , pain with urination, frequency, back or flank pain or any other concerns . Health Concerns Section Related Observation LastModified by Organization Detai ls LastModified Time None Recorded Concern Status LastModified by Organization Details LastModified Time None Recorded Payers Encounter Date Sequence Insurance Name Policy Number Policy Salcido Covered Member ID Salcido Member ID Guarantor Name 07/26/2024 1 [facility] - DOS ON OR AFTER 2022 - DUAL ELIGIBLE - CARE HOME OPTIONS AND ONE CARE (MEDICARE REPLACEMENT/ADV ANTAGE - HMO) Jenifer Mercado [id number] Jenifer Gilmar Mercado Notes Date Note Type Note Provider Name and Address Organization Details Recorded Time 07/26/2024 text/html [facility] Nurse Triage Notes (Marley Dougherty - RN): Reason For Request: Possible uti, and increased confusion. Wheesing in lungs, Chief Complaints: Urinary catheter/nephrosto my tube problems PMH: Hypertension, Coronary Artery Disease, COPD/Asthma, Congestive Heart Failure, Arrhythmias (e.g., Atrial Fibrillation), Diabetes Mellitus Type 2 PMH Reviewed at 07/26/2024 - :24 Allergies Reviewed at 07/26/2024 - 12:24 Comments: Visiting nurse reports patient with increased confusion for the last couple of days. The other day patient had urinary frequency and urgency. Patient has audible wheezing. LS-crackles. Increased BLE edema. No reports of increased shortness of breath. Temp 98.2 and 02 sat 95-99% RA. Patient is on Lasix 40mg daily. No recent changes to medication. Patient recently in the hospital for COPD exacerbation. Prescribed Prednisdone and Doxycycline by Pulmonlogist. Education provided on the response time and the member was advised to monitor reported s/s and seek emergency treatment if needed. [employer] Organization Information for [employer] Legal Name: [employer]? Address: [address] [place] [id number], Private Detective: Aaron Cole MD CLIA No.: [id number] [employer] POC Test Results from [employer] [facility] Urine Dipstick (20:34:22) Urine leukocytes: +++ JOSE Urine nitrites: - NIT Urine urobilinogen: - URO Urine protein: - PRO Urine pH: 5 pH Urine blood: + BLO Urine specific gravity: 1.000 SG Urine ketones: + KET Urine bilirubin: - NOELLE Urine glucose: - GLU .................. .................. .................. .................. .................. .................. .................. ............... [employer] Note From Gus Oseguera: Dispatched to the call address for the female with confusion. Family advises that for a few days Pt had some confusion which happens when she has UTIs but today she did not have any confusion. Pt has had UTIs in the past but last year only had 1. She is currently taking Doxycycline for PNU. Pt denies difficulty breathing, chest pain, UA symptoms or fevers at this time. Pt has been eating and drinking to base line. Pt was found sitting on living room couch, CAOx4, airway open and patent, breathing non labored, able to speak in full sentences, -JVD, -HEENT, skin PWD with good turgor, abd soft non tender/distended, mucous membranes pink and moist, pupils PERRL, lung sounds CTA, -edema/swelling, UA +for JOSE but - for nitrates. Culture obtained for lab. [facility] [place]. Rapid covid/flu (-). Red flags discussed. ALL times are approx. .................. .................. .................. .................. .................. .................. .................. ............... [facility] Consulted: Carlos Louie .................. .................. .................. .................. .................. .................. .................. ............... Disposition: Deandre LOUIE MD [address] [facility],[address], [place], [phone], [employer] 07/26/2024 21:33:38 OBGyn Episode No OBEpisode recorded.
--- OUTSIDE RECORDS SUMMARY | 2024-07-30 15:05 | XMS_ITS | Data Portability ---
Author Organization [employer]iggy [place], [place] in - [facility] Address [address] [place] [phone] Care Team Providers Care Traffic Engineering Director Name Role Phone HIM CCA OTHER GIANNI GU Primary Care Provider [phone] Assessment Encounter Date Assessment Date Assessment LastModified [...] Assessment and Plan as documented by the Ruby On Rails Engineer. Patient /daughter given the opportunity to ask questions. Advised if develops CP/severe SOB/turning blue/uncontrolle d n/v/d or black/bloody emesis or stool/ AMS/ syncope/ hi fever to call 911- daughter verbalized understanding of instructions to the medic [email or web address] Not available 12/12/2022 13:03:17 Plan of Treatment Reminders Order Date Submit Date Provider Last Modified By Organization Details Last Modified Time Details Appointments None recorded. Lab culture, urine 2024 025 JOELTON [facility], [address] [place] [address], [id number], 20:05:53 urinalysis, dipstick 2024 [facility]25 [facility], [address] [place] [address], [id number], 5 21:38:07 rapid flu (A+B) 2024 025 [facility], [address] [place] [address], [id number], 5 21:32:52 rapid SARS CoV 2 Ag, QL IA, respiratory specimen 2024 025 [employer], [address] [place] [address], [address], 5 21:32:55 culture, urine 2022 023 JOELTON [facility], [address] [place] [address], [id number], 3 07:20:43 urinalysis, dipstick 2022 023 [email or web address] 0 [facility], [address] [place] [address], [address], 3 13:03:23 glucose, fingerstick , blood 2022 023 [email or web address] 0 [facility] - [facility], [address] [place] [address], [address], 3 13:03:23 Referral None recorded. Procedures None recorded. Surgeries None recorded. Imaging None recorded. Medication Orders cefpodoxime 200 mg tablet 2022 023 [id number], [address], [place], [id number], 3 12:57:14 cefpodoxime 200 mg tablet 2022 023 [email or web address] 0 Not available 12:57:07 Patient TargetsNo targets recorded. Patient InstructionsNo instructions recorded. Reason for Referral None Reported. Results Created Date Observation Date Name Description Value Unit Range Abnormal Flag Note LastModifiedBy Organization Detail LastModifiedTime 12/13/19 23 12/12/2022 URINE CULTU RE specimen description URINE Not Available [facility] [address] [place], [address], 12/14/2022 07:20:43 12/13/19 23 12/12/2022 URINE CULTU RE special requests NONE Not Available [facility] [address] [place], [address], 12/14/2022 07:20:43 12/13/19 23 12/14/2022 URINE CULTU RE culture Mixed bacter ial rowdy, indica tive of urogen ital contam inatio n. Not Available [facility] [address] [place], [address], 12/14/2022 07:20:43 12/13/19 23 12/14/2022 URINE CULTU RE report status FINAL 2022 Not Available [facility] [address] [place], [address], 12/14/2022 07:20:43 12/13/19 23 12/12/2022 urina lysis , dipst ick Leukocytes 500 Not Available [facility] [address] [place] [address], [address], 12/12/2022 12:57:33 12/13/19 23 12/12/2022 urina lysis , dipst ick Nitrite positi ve Not Available [facility] [address] [place] [address], [address], 12/12/2022 12:57:33 12/13/19 23 12/12/2022 urina lysis , dipst ick Urobilinogen 0.2 Not Available [facility] [address] [place] [address], [address], 12/12/2022 12:57:33 12/13/19 23 12/12/2022 urina lysis , dipst ick Protein 30 Not Available [facility] - [facility] [address] [place] [address], [address], 12/12/2022 12:57:33 12/13/19 23 12/12/2022 urina lysis , dipst ick pH 7.5 Not Available Main - [facility] [address], [address], 12/12/2022 12:57:33 12/13/19 23 12/12/2022 urina lysis , dipst ick Blood + Not Available Main - [facility] [address], [address], 12/12/2022 12:57:33 12/13/19 23 12/12/2022 urina lysis , dipst ick Specific [place] 1.005 Not Available [facility] [address] [place] [address], [address], 12/12/2022 12:57:33 12/13/19 23 12/12/2022 urina lysis , dipst ick Ketone neg Not Available Main - [facility] [address], [address], 12/12/2022 12:57:33 12/13/19 23 12/12/2022 urina lysis , dipst ick Bilirubin neg Not Available Main - I [address], [address], 12/12/2022 12:57:33 12/13/19 23 12/12/2022 urina lysis , dipst ick Glucose neg Not Available Main - [facility] [address], [address], 12/12/2022 12:57:33 12/13/19 23 12/12/2022 urina lysis , dipst ick Appearance cloudy Not Available [facility] [address] [place] [address], [address], 12/12/2022 12:57:33 12/13/19 23 12/12/2022 urina lysis , dipst ick Color yellow Not Available Main - [facility] [address], [address], 12/12/2022 12:57:33 12/13/19 23 12/12/2022 gluco rudy hinkle k, blood Blood Glucose: mg/dl 190 Not Available [facility] [address] [place] [address], [address], 12/12/2022 12:57:38 07/26/19 25 07/29/2024 URINE CULTU RE,CO MPREH ENSIV E urine culture,comp rehensive Final report abnormal Not Available [facility] ([facility]) [address] [facility], [place], [address], 07/29/2024 10:05:35 07/26/19 25 07/29/2024 URINE CULTU RE,CO MPREH ENSIV E result 1 Proteu s mirabi lis abnormal Susce ptibi lity profi le is consi stent with a proba ble ESBL. Multi -Drug Resis tant Organ ism Great er than 100,0 00 colon y formi ng units per mL Not Available [facility] ([facility]) [address] [facility], [place], [address], 07/29/2024 10:05:35 07/26/19 25 07/29/2024 URINE CULTU RE,CO MPREH ENSIV E antimicrobia l susceptibili ty Commen t S = Susce ptibl e; I = Inter media te; R = Resis tant P = Posit nadja; N = Negat nadja MICS are expre ssed in micro grams per mL Antib iotic RSLT# 1 RSLT# 2 RSLT# 3 RSLT# 4 Amoxi cilli n/Cla vulan ic Acid S Ampic illin R Cefaz annie R Cefep malgorzata S Cefox itin S Cefpo doxim e R Ceftr iaxon e R Cipro floxa fatoumata R Ertap enem S Genta micin S Merop enem S Nitro furan toin R Piper acill in/Ta zobac vera S Tetra cycli ne R Tobra mycin S Trime thopr im/Mitchell lfa R Not Available [facility] ([facility]) [address] [facility], [place], [address], 07/29/2024 10:05:35 07/26/19 25 07/26/2024 rapid flu (A+B) Flu negati ve Not Available [facility] ed [address] [place] [address], [address], 07/26/2024 20:55:44 07/26/19 25 07/26/2024 rapid SARS CoV 2 Ag, QL IA, respi rator y speci men rapid SARS CoV 2 Ag, QL IA, respiratory specimen negati ve Not Available [facility] ed [address] [place] [address], [address], 07/26/2024 21:32:34 Result Notes None recorded. Medical Equipment None Reported. Allergies Allergen ID Allergen Name Allergen Category Reaction Reaction Severity Criticality Documentation Date Start Date Code Code System Note Provider Name and Address Organization Details Recorded Time 21309 mirtazapi ne medicatio n Not available Not available Not available 07/26/2024 50894 RxNorm Not Available [facility] - [facility] 5 12:24:54 44884 sertralin e medicatio n Not available Not available Not available 07/26/2024 16060 RxNorm Not Available [facility] - production 5 12:24:54 2695 cetirizin e medicatio n Not available Not available Not available 12/12/2022 97088 RxNorm Alexandria Shea MD [address] [place] [address],[address], [place], [address] [place] [address] - [employer] 3 12:51:29 2696 spironola ctone medicatio n Not available Not available Not available 12/12/2022 9997 RxNorm Not Available [facility] - production 5 12:24:54 2697 carvedilo l medicatio n Not available Not available Not available 12/12/2022 31684 RxNorm Not Available [facility] - production 5 [...] [degF] 92 /min 99 % 99 % 83662.5 52 g 14 /min 138 mm[Hg] 67 mm[Hg] 138 mm[Hg] 67 mm[Hg] Not Available [facility] 3 13:17:06 Date Recorded Body weight Provider Name an d Address Organization Details Last Updated DateTime 12/12/2022 83731.6 g Jose Martin Shelton [address] [facility],[address], [place], [address], [place] [employer] 12/12/2022 13:03:46 Date Recorded Respiratory rate Heart rate Body temperature Oxygen saturation Oxygen saturation in Arterial blood by Pulse oximetry Systolic blood pressure Diastolic blood pressure Provider Name and Address Organization Details Last Updated DateTime 5 18 /min 62 /min 98.4 [degF] 97 % 97 % 144 mm[Hg] 88 mm[Hg] Not Available [employer] 20:33:01 Date Recorded Body temperature Heart rate Oxygen saturation Oxygen saturation in Arterial blood by Pulse oximetry Respiratory rate Systolic blood pressure Diastolic blood pressure Provider Name and Address Organization Details Last Updated DateTime 97.8 [degF] 97 /min 97 % 97 % 18 /min 114 mm[Hg] 76 mm[Hg] Not Available [employer] 13:50:19 Social History None recorded. Functional Status None recorded. Mental Status None recorded. Family History Nothing Reported. Medical History No medical history recorded. Gynecological HistoryNo gynecological history recorded. Obstetrics History GPAL:G 0 P 0 0 0 0 Past Encounters Encounter ID Performer Location Encounter Start Date Encounter Closed Date Diagnosis/Indication Diagnosis SNOMED-CT Code Diagnosis ICD10 Code Diagnosis Note [id number] [facility]o Disla [email or web address] [address] [place] [phone] 03/08/2022 13:34:54 03/11/2022 16:53:14 Wound of skin 871929792 T14.8XXA [id number] Alexandria Shea MD [email or web address] [address] [place] [phone] 12/12/2022 12:48:46 12/13/2022 10:47:07 Urinary symptoms 553310942 R39.9 recurrent uti. Pat has tolerated cefpodoxim e well in the past per daughter- advised doxycyclin e likely chosen at last d/c due to concomitan t pneumonia- would like to avoid quinolones in elderly patient on eliquis if possible-a dvised will check culture and if sensitivit ies indicate another abx required will call in different RX when results return in a few days [id number] CARLOS LOUIE MD [email or web address] [address] [place] [id number] 07/26/2024 20:17:44 07/27/2024 09:55:15 Urinary symptoms 985248269 R39.9 Evaluation in the field was performed by my admission nurse colleague, as noted above, I provided real-time [...] on bilaterall yNo lower extremity edema per admission nurse examUA: Positive for leukocytes , ketones, and [...] Salcido Member ID Guarantor Name 03/08/2022 1 [facility] - DOS PRIOR TO 2022 - DUAL ELIGIBLE (MEDICARE REPLACEMENT/ADV ANTAGE - HMO) Jenifer Camposk [id number] Jenifer Harperpek 12/12/2022 1 [facility] - DOS ON OR AFTER 2022 - DUAL ELIGIBLE - CARE HOME OPTIONS AND ONE CARE (MEDICARE REPLACEMENT/ADV ANTAGE - HMO) Jenifer Mercado [id number] Jenifer Schafer Sypek 07/26/2024 1 [facility] - DOS ON OR AFTER 2022 - DUAL ELIGIBLE - CARE HOME OPTIONS AND ONE CARE (MEDICARE REPLACEMENT/ADV ANTAGE - HMO) Jenifer Mercado [id number] Jenifer Mercado Notes Date Note Type Note Provider [...] Comments: Members dtr calling to place an [facility] referral. Mom with paper thin skin, and on blood thinners. She was getting up to go to the bathroom, she turned her walker and hit her left ankle. Site is about the size of quarter, area has been bleeding off/on since 3am. Daughter has put gauze, triple abx ointment and wrap. Would like area assessed. Jacobo Disla MD [address] [facility],[address], [place], [address], [employer] 03/08/2022 13:59:24 12/12/2022 text/html [facility] Nursing Assessment: Reason For Request: Daughter reporting [...] .................. .................. .................. .................. .................. .................. ...... Ruby On Rails Engineer Note From Gavin Snow: Pt's daughter suspects [...] .................. ............... Disposition: Fulfilled Alexandria Shea MD [address] [place] [address],[address], [place], [address], [employer] 12/12/2022 13:35:09 07/26/2024 text/html [facility] Nurse Triage Notes (Marley Dougherty - JAVAN): Reason For Request: Possible uti, and increased confusion. Wheesing in lungs, Chief Complaints: Urinary catheter/nephrosto my tube problems PMH: Hypertension, Coronary Artery Disease, COPD/Asthma, Congestive Heart Failure, Arrhythmias (e.g., Atrial Fibrillation), Diabetes Mellitus Type 2 PMH Reviewed at 07/26/2024 - 12:24 Allergies Reviewed at 07/26/2024 - 12:24 Comments: [...] s/s and seek emergency treatment if needed. Ruby On Rails Engineer Organization Information for Gus Oseguera - [employer] Business Legal Name: [employer] Address: [address] [place] [address], [place] [address], Mountain Bike Guide: Aaron ANGELES No.: [id number] Ruby On Rails Engineer POC Test Results from Gus Oseguera Urine Dipstick (20:34:22) Urine leukocytes: +++ JOSE Urine nitrites: - NIT Urine urobilinogen: - URO Urine protein: - PRO Urine pH: 5 pH Urine blood: + BLO Urine specific gravity: 1.000 SG Urine ketones: + KET Urine bilirubin: - NOELLE Urine glucose: - GLU .................. .................. .................. .................. .................. .................. .................. ............... Ruby On Rails Engineer Note From Gus Oseguera: Dispatched to the [...] - for nitrates. Culture obtained for lab. [facility] consulted. Rapid covid/flu (-). Red flags discussed. ALL times are approx. .................. .................. .................. .................. .................. .................. .................. ............... [facility] Consulted: Carlos Louie .................. .................. .................. .................. .................. .................. .................. ............... Disposition: Deandre LOUIE MD [address] [facility],[address] [facility], [place], [address], [employer] 07/26/2024 21:33:38 OBGyn Episode No OBEpisode recorded.
[2024-07-30 15:12] LABS: Lactic Acid 2.4 mmol/L (0.5-2.0)
[2024-07-30 15:14] LABS: B Type Natriuretic Peptide 154 pg/mL (<100)
[2024-07-30 15:16] LABS: Troponin-I High Sensitivity 49.1 ng/L (<3.5-17.0)
[2024-07-30 15:18] LABS: Alanine Aminotransferase 35 U/L (0-31); Albumin Level 3.4 g/dL (3.5-5.0); Anion Gap 16 (12-20); Aspartate Amino Transferase 31 U/L (5-31); Bilirubin Direct 0.6 mg/dL (0.0-0.5); Bilirubin Total 2.5 mg/dL (0.0-1.0); Blood Urea Nitrogen 31 mg/dL (9-16); Calcium 8.4 mg/dL (8.4-10.2); Carbon Dioxide 25 mmol/L (22-29); Chloride 105 mmol/L (96-108); Creatinine Clr Calc Pharmacy 46.8; Estimated Glomerular Filt Rate 29; Glucose Random 175 mg/dL (60-115); Lipase 15 U/L (8-78); Magnesium 1.8 mg/dL (1.6-2.6); Potassium 3.7 mmol/L (3.3-5.1); Sodium 142 mmol/L (135-145); Total Protein 6.2 g/dL (6.5-8.0)
[2024-07-30 15:32] LABS: Alkaline Phosphatase 87 U/L (39-117)
[2024-07-30 15:35] LABS: Influenza A PCR NEGATIVE (Negative); Influenza B PCR NEGATIVE (Negative); Resp Syncy Virus RNA Qual PCR NEGATIVE (Negative); SARS COV2 PCR INHOUSE NEGATIVE (Negative)
[2024-07-30 15:46] VITALS: BP 118/64; PULSE 79; RESP 20; TEMP 36.3; O2SAT 100
[2024-07-30] MEDS: Piperacillin Sodium/Tazobactam 4.5 GM in 0.9 % Sodium Chloride 100 ML IV (15:52)
[2024-07-30] MEDS: methylPREDNISolone Sod Succ 125 MG/2 ML VIAL 60 MG IVPUSH (15:52)
[2024-07-30] MEDS: 0.9 % Sodium Chloride 500 ML 999 ML IV (16:12)
[2024-07-30 16:44] LABS: Ammonia 29 umol/L (13-55)
[2024-07-30 16:50] LABS: Reflex Lactate? Lactic Acid Added
--- NOTE | 2024-07-30 17:01 | P.HPHOSP_ITS ---
History of Present Illness Date of Service: 07/30/24 Chief Complaint: ams 83F PMH diabetes, COPD on p.r.n. O2, chronic systolic CHF with EF of 35-40%, paroxysmal atrial fibrillation no longer on anticoagulation due to major bleed, coronary artery disease status post CABG, unspecified dementia, hyperlipidemia recently discharged 07/04/2024 for COPD and sepsis due to pneumonia. Was at home and daughter noted patient was acting more confused similar to previous UTIs. Obtained a UA with urine culture and was called to come to the ED due to ESBL on culture, report states ESBL Proteus but also mentioned sensitivities to penicillins and cephalosporins. In ED noted to have acute kidney injury with creatinine of 1.7. Chest x-ray with subtle opacity in the right base possible pneumonia. Review of Systems 2 Review of Systems: Yes all other systems are reviewed and are negative [facility] Medical History Diabetes Acute respiratory failure with hypoxia Congestive heart failure Mild bibasilar atelectasis Aspiration pneumonia Clostridioides difficile infection Pneumonia Atrial flutter Pyuria Atelectasis of right lung Encephalopathy chronic History of infection with vancomycin resistant Enterococcus (VRE) Heart failure Dyspnea Paroxysmal A-fib COPD (chronic obstructive pulmonary disease) A-fib Acute encephalopathy Anemia Pseudomonas respiratory infection CAD (coronary artery disease) Chronic dyspnea Acute hypokalemia Atrial fibrillation with RVR Anemia GI bleed Pulmonary nodules COPD (chronic obstructive pulmonary disease) Bronchiectasis Pseudomonal pneumonia Family History Other No family history of cancer Surgical History H/O umbilical hernia repair (09/18/22) History of quadruple bypass History of hip replacement History of knee replacement History of cholecystectomy Social History Household Members: Family and Children Housing: House Are you a primary cattle care worker to a significant other at home: No Do you presently have visiting nurse or other home services: Yes Alcohol intake: never Patient Tobacco Use Status: Former Tobacco user Tobacco use type: Cigarette Smoked in Last 30 Days: No Use of substances other than those prescribed or required for medical reasons: No Advance Directives: Yes Advance Directives on File: Yes Advance Directives Date on File: 08/24/22 Do you have a plan to hurt others: No Plan Nutrition Risks: No Nutritional Risk service: No Current occupational status: retired Meds Allergies Allergy/AdvReac Type Severity Reaction Status Date / Time carvedilol Allergy Shortness Verified 07/30/24 13:22 of Breath sertraline [From Zoloft] Allergy Shortness Verified 07/30/24 13:22 of Breath spironolactone Allergy Shortness Verified 07/30/24 13:22 of Breath adhesive tape AdvReac Severe skin tears Verified 07/30/24 13:22 mirtazapine AdvReac Severe psychotic Verified 07/30/24 13:22 episode Active Medications: Current Medications Dextrose (Dextrose 50 % 25 Gm/50 Ml Syringe) 25 gm IVPUSH Q15M PRN; Protocol PRN Reason: per Hypoglycemia Standing Ord. Glucose (Glucose Gel 15 Gm Gel..Gram.) 15 gm PO Q15M PRN; Protocol PRN Reason: per Hypoglycemia Standing Ord. Insulin Human Lispro (Insulin Lispro 100 Unit/Ml 3 Ml Vial) [facility]; Protocol Home Medications ?Medication ?Instructions ?Recorded ?Confirmed ?Last Taken ?Type fluticasone propionate 50 1 spray intranasal BID 03/22/22 07/30/24 07/30/24 09:00 History mcg/actuation nasal spray,suspension montelukast 10 mg tablet 10 mg PO BEDTIME 03/22/22 07/30/24 07/30/24 09:00 History nebulizers 03/22/22 11/09/23 07/30/24 09:00 History albuterol sulfate 90 mcg/actuation 2 puff inhalation Q4-6H PRN 11/02/22 07/30/24 07/30/24 09:00 History aerosol inhaler (Ventolin HFA) Shortness Of Breath Or Wheezing aspirin 81 mg tablet,delayed 81 mg PO DAILY 11/02/22 07/30/24 07/30/24 09:00 History release isosorbide mononitrate 30 mg 30 mg PO DAILY 11/02/22 07/30/24 07/30/24 09:00 History tablet,extended release 24 hr pantoprazole 40 mg tablet,delayed 40 mg PO BID 11/02/22 07/30/24 07/30/24 09:00 History release acetaminophen 325 mg tablet 650 mg PO Q6H PRN Pain 01/13/23 07/30/24 07/30/24 09:00 History multivitamin 1 tab PO DAILY 01/13/23 07/30/24 07/30/24 09:00 History potassium chloride 20 mEq 20 meq PO DAILY 01/13/23 07/30/24 07/30/24 09:00 History tablet,extended release quetiapine 50 mg tablet 50 mg PO BEDTIME 01/13/23 07/30/24 07/30/24 09:00 History cyanocobalamin (vitamin B-12) 1,000 mcg PO DAILY 03/25/23 07/30/24 07/30/24 09:00 History 1,000 mcg tablet nystatin 100,000 unit/gram topical 1 appl topical BID PRN Rash 03/25/23 07/30/24 07/30/24 09:00 History powder ferrous sulfate 325 mg (65 mg 325 mg PO BEDTIME 06/25/24 07/30/24 07/30/24 09:00 History iron) tablet Lactobacillus acidophilus 500 500,000,000 cell PO DAILY 07/30/24 07/30/24 07/30/24 09:00 History million cell capsule levalbuterol HCl 1.25 mg/3 mL 1.25 mg inhalation QID 07/30/24 07/30/24 07/30/24 09:00 History solution for nebulization nystatin 100,000 unit/mL oral 100,000 unit PO QID 07/30/24 07/30/24 07/30/24 09:00 History suspension prednisone 10 mg tablet 10 mg PO DAILY 07/30/24 07/30/24 07/30/24 09:00 History tobramycin 300 mg/4 mL solution 300 mg inhalation BID 07/30/24 07/30/24 07/30/24 09:00 History for nebulization umeclidinium 62.5 mcg-vilanterol 1 inh inhalation DAILY daily 07/30/24 07/30/24 07/30/24 09:00 History 25 mcg/actuation powdr for inhalation (Anoro Ellipta) Physical Exam 2 Vital Signs and Narrative: Vital Signs: Last Vital Signs Temp 97.4 F 07/30/24 15:46 Pulse 79 07/30/24 15:46 Resp 20 07/30/24 15:46 BP 118/64 07/30/24 15:46 Pulse Ox 100 07/30/24 15:46 O2 Del Method Room Air 07/30/24 15:46 BMI result Body Mass Index 85.1 Alert, poor insight, conversive and on topic, some rhonchi, no acute distress Results Labs 07/30/24 14:43 07/30/24 14:43 Labs: Laboratory Results - last 24 hr 07/30/24 07/30/24 07/30/24 14:43 14:44 16:27 MCV 99.7 H MCH 33.0 MCHC 33.1 RDW 17.0 H Plt Count 127 L MPV 11.7 Immature Gran % (Auto) 1.2 H Neut % (Auto) 81.2 H Lymph % (Auto) 9.6 L Thurston % (Auto) 6.2 Eos % (Auto) 1.4 Baso % (Auto) 0.4 Lymph # (Auto) 0.9 L Thurston # (Auto) 0.6 Eos # (Auto) 0.1 Baso # (Auto) 0.0 Abs Immat Gran (auto) 0.11 H Absolute Neuts (auto) 7.5 Absolute Nucleated RBC 0.000 Nucleated RBC % (auto) 0.0 PT 12.3 INR 1.1 Anion Gap 16 Estim Creat Clear Calc 46.8 Estimated GFR 29 Random Glucose 175 H Lactic Acid 2.4 H* Calcium 8.4 D Magnesium 1.8 Total Bilirubin 2.5 H Direct Bilirubin 0.6 H AST 31 ALT 35 H Alkaline Phosphatase 87 Ammonia 29 B-Natriuretic Peptide 154 H Total Protein 6.2 L Albumin 3.4 L Lipase 15 Influenza Type A (PCR) NEGATIVE Influenza Type B (PCR) NEGATIVE RSV RNA Qual (PCR) NEGATIVE SARS-CoV-2 RNA (RT-PCR) NEGATIVE Imaging Radiologist's Impressions: Impressions Chest X-Ray 07/30/24 13:35 IMPRESSION: 1. Subtle opacity right base, possible pneumonia. 2. Mild cardiac enlargement with surgical changes status post CABG. Electronically signed by: Dawood Elmore MD 07/30/2024 02:10 PM [facility] Assessment and Plan (1) Diabetes: Status: Acute Plan 83F PMH diabetes, COPD on p.r.n. O2, chronic systolic CHF with EF of 35-40%, paroxysmal atrial fibrillation no longer on anticoagulation due to major bleed, coronary artery disease status post CABG, unspecified dementia, hyperlipidemia sent into the hospital for ESBL UTI Acute metabolic encephalopathy due to urinary tract infection Unclear error on sensitivity report Will treat with meropenem for now and follow up repeat culture Pneumonia with concern for aspiration Continue meropenem, follow up speech eval Acute kidney injury Given IV fluids in ED, follow up Bmp Chronic systolic CHF We will hold Lasix for now Monitor closely Diabetes Insulin sliding scale Paroxysmal atrial fibrillation Continue metoprolol, not on anticoagulation due to history of major bleed Coronary artery disease Continue aspirin and statin DVT prophylaxis with heparin subQ Full code Patient with urinary tract infection possibly due to multidrug resistant bacteria therefore expected require at least 2 midnights inpatient Quality Stroke Does the patient have a stroke diagnosis?: No VTE Prior VTE?: No VTE Risk Level:: Medical - moderate - high VTE Device Contraindication: Treatment Not Indicated VTE Drug Contraindication: N/A - Med Ordered
[2024-07-30 17:03] LABS: Troponin-I High Sensitivity 51.7 ng/L (<3.5-17.0)
[2024-07-30 18:11] LABS: ~Lactic Acid-LAB USE ONLY 1.7 mmol/L (0.5-2.0)
[2024-07-30 18:43] LABS: Appearance Urine Turbid; Color Urine Yellow; Glucose Urine UA Negative (Negative); Leukocyte Esterase Urine Large (3+) (Negative); Nitrite Urine Negative (Negative); PH 7.5 (5.0-9.0); UMIC TRIGGER UACC YES; Urine Blood Moderate (2+) (Negative); Urine Ketones Negative (Negative); Urine Protein 30 (1+) mg/dL (Neg-Trace)
--- NOTE | 2024-07-30 18:43 | MHC.EDTECH ---
Pt from the beginning with aggressive threats not to touch her unless daughter is a bedside. if not I will really see what happens. pt & daughter have been verbally aggressive at times. Pt repeatly pressing the call nur x20. Wants something to drink, but omits to need thicker. Wants to be repositioned up then goes down on the bed. right after incon cares states she needs to be changed again. Daughter is hospice care transitions coordinator does not assist, while in the room she states how she does the care at home. Pt has had bed linen changed twice, purwick in place. Pt repositioned herself constantly.
[2024-07-30 18:59] LABS: Bacteria Urine 4+ (None Seen); Hyaline Casts Urine >20 /LPF (0-2); Squamous Epithelial Cell Urine 0-2 /HPF (0-2); UACC Culture Trigger YES; WBC Urine >50 /HPF (0-5)
[2024-07-30 19:29] VITALS: BP 128/60; PULSE 82; RESP 20; TEMP 36.6; O2SAT 98
--- NOTE | 2024-07-30 19:39 | PC.NURSE ---
pt refusing to take abx until she asks her daughter if this abx is okay. this RN spoke with daughter who states any and all meds are okay for her. pt reassured
--- NOTE | 2024-07-30 19:46 | PC.NURSE ---
pt still refusing to take medication
[2024-07-30 20:40] LABS: Glucose, Whole Blood 177 mg/dL (60-115)
[2024-07-30] MEDS: Meropenem 1 GM VIAL IVPUSH (20:44)
[2024-07-30 20:52] LABS: Glucose, Whole Blood 338 mg/dL (60-115)
[2024-07-30] MEDS: Insulin Lispro 100 UNIT/ML 3 ML VIAL SUBCUT (22:10)
[2024-07-30] MEDS: Ferrous Sulfate 324 MG TABLET.DR PO (22:10)
[2024-07-30] MEDS: Montelukast Sodium 10 MG TABLET PO (22:10)
[2024-07-30] MEDS: Melatonin 3 MG TABLET 6 MG PO (22:10)
[2024-07-30] MEDS: Atorvastatin Calcium 40 MG TABLET PO (22:11)
[2024-07-30] MEDS: Acetaminophen 325 MG TABLET 650 MG PO (22:11)
[2024-07-30] MEDS: QUEtiapine Fumarate 50 MG TABLET PO (22:11)
[2024-07-30] MEDS: Metoprolol Tartrate 25 MG TABLET PO (22:11)
[2024-07-30] MEDS: Tobramycin Sulfate 80 MG/2 ML VIAL 300 MG INHALE (22:42)
[2024-07-30 22:45] VITALS: PULSE 84; RESP 16; O2SAT 96
[2024-07-31] VITALS (9 sets, daily range): BP systolic 115–143; BP diastolic 56–64; PULSE 71–87; RESP 17–18; TEMP 36.1–36.3; O2SAT 95–100
[2024-07-31] MEDS: 0.9 % Sodium Chloride Flush 3 ML SYRINGE IVFLUSH ×4 (00:20→20:39)
[2024-07-31] MEDS: hydrOXYzine HCL 10 MG TABLET PO (01:07)
--- NOTE | 2024-07-31 05:04 | PC.NURSE ---
Patient refused Heparin 5,[address] Rodriguez notified.
[2024-07-31] MEDS: Acetaminophen 325 MG TABLET 650 MG PO (05:10)
[2024-07-31 06:42] LABS: Anion Gap 14 (12-20); Blood Urea Nitrogen 33 mg/dL (9-16); Calcium 8.3 mg/dL (8.4-10.2); Carbon Dioxide 22 mmol/L (22-29); Chloride 106 mmol/L (96-108); Creatinine Clr Calc Pharmacy 42.4; Estimated Glomerular Filt Rate 25; Glucose Random 180 mg/dL (60-115); Magnesium 1.9 mg/dL (1.6-2.6); Potassium 3.8 mmol/L (3.3-5.1); Sodium 138 mmol/L (135-145)
[2024-07-31 07:10] LABS: Hematocrit 26.4 % (37.0-47.0); Mean Corpuscular HGB Conc 34.1 g/dl (31.0-35.0); Mean Corpuscular Hemoglobin 33.7 pg (27.0-33.0); Mean Corpuscular Volume 98.9 fL (80.0-98.0); Mean Platelet Volume 11.8 fL (9.4-12.3); Platelet Count 115 X10*3/uL (160-400); Red Blood Count 2.67 X10*6/uL (4.20-5.50); Red Cell Distribution Width 16.9 % (11.0-16.0); White Blood Count 7.4 X10*3/uL (4.8-10.8)
[2024-07-31 07:52] LABS: Glucose, Whole Blood 166 mg/dL (60-115)
[2024-07-31] MEDS: Insulin Lispro 100 UNIT/ML 3 ML VIAL SUBCUT ×3 (08:13→20:37)
--- NOTE | 2024-07-31 08:21 | PC.NURSE ---
pt is awake and alert and is being assisted with breakfast. pt has been repositioned in bed and linen is dry. pt reports discomfort with repositioning but is otherwise comfortable. pt has been updated as to plan of care. report was taken from previous rn @ 0700.
[2024-07-31] MEDS: levalbuterol HCL 1.25 MG/3 ML VIAL.NEB INHALE ×4 (09:01→20:31)
[2024-07-31] MEDS: Tobramycin Sulfate 80 MG/2 ML VIAL 300 MG INHALE ×3 (09:07→20:31)
--- NOTE | 2024-07-31 10:25 | P.PNIM_ITS ---
Subjective Subjective Date of Service: 07/31/24 Interval History: no complaints Physical Exam 2 Vital Signs: Vital Signs: Last Vital Signs Temp 97.8 F 07/30/24 19:29 Pulse 71 07/31/24 09:04 Resp 18 07/31/24 09:04 BP 128/60 07/30/24 19:29 Pulse Ox 98 07/30/24 19:29 O2 Del Method Room Air 07/30/24 19:29 BMI result Body Mass Index 85.1 General: AO X 3, no acute distress Resp: some exp wheezing bilateral (chronic), no accessory muscles used CVS: S1,S2,RRR GI: soft, non tender, non distended Neuro: motor grossly intact, alert Psych: appropriate affect, appropriate insight Objective Data Active Medications Acetaminophen (Acetaminophen 325 Mg Tablet) 650 mg PO Q6H PRN PRN Reason: Pain, Mild 1-3,fever,headache Last Admin: 07/31/24 05:10 Dose: 650 mg Documented By: GLENROY Albuterol Sulfate (Albuterol Sulfate 90 Mcg 8 Gm Inhaler) 2 puff INHALE Q4H PRN PRN Reason: Shortness Of Breath Or Wheezing Aspirin (Aspirin Enteric Coated 81 Mg Tablet.) 81 mg PO DAILY [facility] Atorvastatin Calcium (Atorvastatin Calcium 40 Mg Tablet) 40 mg PO BEDTIME [facility] Last Admin: 07/30/24 22:11 Dose: 40 mg Documented By: BHAVIN Calcium Carbonate (Calcium Carbonate 750 Mg Tab.Chew) 750 mg PO Q4H PRN PRN Reason: Heartburn Cyanocobalamin (Cyanocobalamin (Vitamin B-12) 1,000 Mcg Tablet) 1,000 mcg PO DAILY [facility] Dextrose (Dextrose 50 % 25 Gm/50 Ml Syringe) 25 gm IVPUSH Q15M PRN; Protocol PRN Reason: per Hypoglycemia Standing Ord. Ferrous Sulfate (Ferrous Sulfate 324 Mg Tablet.) 324 mg PO BEDTIME [facility] Last Admin: 07/30/24 22:10 Dose: 324 mg Documented By: BHAVIN Fluticasone Propionate (Fluticasone Propionate Nasal 16 Gm [place]) 1 spray NOSTRIL-B BID [facility] Last Admin: 07/30/24 22:11 Dose: Not Given Documented By: BHAVIN Non-Admin Reason: Med Not Available Glucose (Glucose Gel 15 Gm Gel..Gram.) 15 gm PO Q15M PRN; Protocol PRN Reason: per Hypoglycemia Standing Ord. Heparin Sodium (Porcine) (Heparin Sodium,Porcine 5,000 Unit/Ml Vial) 5,000 unit SUBCUT Q12H [facility] Last Admin: 07/31/24 05:04 Dose: Not Given Documented By: YA Non-Admin Reason: Patient Refused Hydroxyzine HCl (Hydroxyzine Hcl 10 Mg Tablet) 10 mg PO Q8H PRN PRN Reason: Anxiety Last Admin: 07/31/24 01:07 Dose: 10 mg Documented By: GLENROY Insulin Human Lispro (Insulin Lispro 100 Unit/Ml 3 Ml Vial) 0 unit SUBCUT QIDACHS [facility]; Protocol Last Admin: 07/31/24 08:13 Dose: 2 unit Documented By: RANDALL Isosorbide Mononitrate (Isosorbide Mononitrate 30 Mg Tab.Er.24h) 30 mg PO DAILY [facility]; Protocol Levalbuterol HCl (Levalbuterol Hcl 1.25 Mg/3 Ml Vial.Neb) 1.25 mg INHALE QID [facility] Last Admin: 07/31/24 09:01 Dose: 1.25 mg Documented By: KVNG Magnesium Hydroxide (Milk Of Magnesia 30 Ml Oral.Susp) 30 ml PO DAILY PRN PRN Reason: Constipation Melatonin (Melatonin 3 Mg Tablet) 6 mg PO BEDTIME PRN PRN Reason: Insomnia Last Admin: 07/30/24 22:10 Dose: 6 mg Documented By: BHAVIN Meropenem (Meropenem 1 Gm Vial) 1 gm IVPUSH BID [facility] Metoprolol Tartrate (Metoprolol Tartrate 25 Mg Tablet) 25 mg PO BID [facility]; Protocol Last Admin: 07/30/24 22:11 Dose: 25 mg Documented By: BHAVIN Montelukast Sodium (Montelukast Sodium 10 Mg Tablet) 10 mg PO BEDTIME [facility] Last Admin: 07/30/24 22:10 Dose: 10 mg Documented By: BHAVIN Multivitamins/Vitamin C (Multivitamin Tablet) 1 tab PO DAILY [facility] Non-Formulary Medication (Umeclidinium-Vilanterol [Anoro Ellipta]) 1 inhalation INHALE DAILY [facility] Pantoprazole Sodium (Pantoprazole Sodium 20 Mg Tablet.) 40 mg PO BID@0630,1830 [facility] Prednisone (Prednisone 10 Mg Tablet) 10 mg PO DAILY [facility] Quetiapine Fumarate (Quetiapine Fumarate 50 Mg Tablet) 50 mg PO BEDTIME [facility] Last Admin: 07/30/24 22:11 Dose: 50 mg Documented By: BHAVIN Sodium Chloride (0.9 % Sodium Chloride Flush 3 Ml Syringe) 3 ml IVFLUSH QSHIFT [facility] Last Admin: 07/31/24 00:20 Dose: 3 ml Documented By: GLENROY Tobramycin Sulfate (Tobramycin Sulfate 80 Mg/2 Ml Vial) 300 mg INHALE RBID [facility] Last Admin: 07/31/24 09:08 Dose: 300 mg Documented By: KVNG Comments: QR code incorrect Labs 07/31/24 06:16 07/31/24 06:16 Labs: Laboratory Results - last 24 hr 07/30/24 07/30/24 07/30/24 14:43 14:44 16:27 MCV 99.7 H MCH 33.0 MCHC 33.1 RDW 17.0 H Plt Count 127 L MPV 11.7 Immature Gran % (Auto) 1.2 H Neut % (Auto) 81.2 H Lymph % (Auto) 9.6 L [place] % (Auto) 6.2 Eos % (Auto) 1.4 Baso % (Auto) 0.4 Lymph # (Auto) 0.9 L [place] # (Auto) 0.6 Eos # (Auto) 0.1 Baso # (Auto) 0.0 Abs Immat Gran (auto) 0.11 H Absolute Neuts (auto) 7.5 Absolute Nucleated RBC 0.000 Nucleated RBC % (auto) 0.0 PT 12.3 INR 1.1 Anion Gap 16 Estim Creat Clear Calc 46.8 Estimated GFR 29 POC Glucose Random Glucose 175 H Lactic Acid 2.4 H* Lactic Acid F/U @ 2Hr Calcium 8.4 D Magnesium 1.8 Total Bilirubin 2.5 H Direct Bilirubin 0.6 H AST 31 ALT 35 H Alkaline Phosphatase 87 Ammonia 29 B-Natriuretic Peptide 154 H Total Protein 6.2 L Albumin 3.4 L Lipase 15 Urine Color Urine Appearance Urine pH Ur Specific [place] Urine Protein Urine Glucose (UA) Urine Ketones Urine Blood Urine Nitrite Ur Leukocyte Esterase Urine RBC Urine WBC Ur Squamous Epith Cells Urine Bacteria Hyaline Casts Urine Yeast Influenza Type A (PCR) NEGATIVE Influenza Type B (PCR) NEGATIVE RSV RNA Qual (PCR) NEGATIVE SARS-CoV-2 RNA (RT-PCR) NEGATIVE 07/30/24 07/30/24 07/30/24 17:37 17:48 18:17 MCV MCH MCHC RDW Plt Count MPV Immature Gran % (Auto) Neut % (Auto) Lymph % (Auto) [place] % (Auto) Eos % (Auto) Baso % (Auto) Lymph # (Auto) [place] # (Auto) Eos # (Auto) Baso # (Auto) Abs Immat Gran (auto) Absolute Neuts (auto) Absolute Nucleated RBC Nucleated RBC % (auto) PT INR Anion Gap Estim Creat Clear Calc Estimated GFR POC Glucose 177 H Random Glucose Lactic Acid Lactic Acid F/U @ 2Hr 1.7 Calcium Magnesium Total Bilirubin Direct Bilirubin AST ALT Alkaline Phosphatase Ammonia B-Natriuretic Peptide Total Protein Albumin Lipase Urine Color Yellow Urine Appearance Turbid Urine pH 7.5 Ur Specific [place] 1.010 Urine Protein 30 (1+) H Urine Glucose (UA) Negative Urine Ketones Negative Urine Blood Moderate (2+) H Urine Nitrite Negative Ur Leukocyte Esterase Large (3+) H Urine RBC 3-5 H Urine WBC >50 H Ur Squamous Epith Cells 0-2 Urine Bacteria 4+ Hyaline Casts >20 Urine Yeast Present Influenza Type A (PCR) Influenza Type B (PCR) RSV RNA Qual (PCR) SARS-CoV-2 RNA (RT-PCR) 07/30/24 07/31/24 07/31/24 20:48 06:16 07:48 MCV 98.9 H MCH 33.7 H MCHC 34.1 RDW 16.9 H Plt Count 115 L MPV 11.8 Immature Gran % (Auto) Neut % (Auto) Lymph % (Auto) [place] % (Auto) Eos % (Auto) Baso % (Auto) Lymph # (Auto) [place] # (Auto) Eos # (Auto) Baso # (Auto) Abs Immat Gran (auto) Absolute Neuts (auto) Absolute Nucleated RBC 0.000 Nucleated RBC % (auto) 0.0 PT INR Anion Gap 14 Estim Creat Clear Calc 42.4 Estimated GFR 25 POC Glucose 338 H 166 H Random Glucose 180 H Lactic Acid Lactic Acid F/U @ 2Hr Calcium 8.3 L Magnesium 1.9 Total Bilirubin Direct Bilirubin AST ALT Alkaline Phosphatase Ammonia B-Natriuretic Peptide Total Protein Albumin Lipase Urine Color Urine Appearance Urine pH Ur Specific [place] Urine Protein Urine Glucose (UA) Urine Ketones Urine Blood Urine Nitrite Ur Leukocyte Esterase Urine RBC Urine WBC Ur Squamous Epith Cells Urine Bacteria Hyaline Casts Urine Yeast Influenza Type A (PCR) Influenza Type B (PCR) RSV RNA Qual (PCR) SARS-CoV-2 RNA (RT-PCR) Assessment and Plan (1) Diabetes: Status: Acute Plan 83F PMH diabetes, COPD on p.r.n. O2, chronic systolic CHF with EF of 35-40%, paroxysmal atrial fibrillation no longer on anticoagulation due to major bleed, coronary artery disease status post CABG, unspecified dementia, hyperlipidemia sent into the hospital for ESBL UTI Acute metabolic encephalopathy due to urinary tract infection Unclear error on sensitivity report continue meropenem for now and follow up repeat culture Pneumonia with concern for aspiration Continue meropenem, follow up speech eval Acute kidney injury will give another 750cc, monitor bmp Chronic systolic CHF will hold Lasix for now Monitor closely Diabetes Insulin sliding scale Paroxysmal atrial fibrillation Continue metoprolol, not on anticoagulation due to history of major bleed Coronary artery disease Continue aspirin and statin DVT prophylaxis with heparin subQ Full code reason for continued hospitalization:abraham Quality Stroke Does the patient have a stroke diagnosis?: No VTE Prior VTE?: No VTE Risk Level:: Medical - moderate - high VTE Device Contraindication: Treatment Not Indicated VTE Drug Contraindication: N/A - Med Ordered
[2024-07-31] MEDS: Metoprolol Tartrate 25 MG TABLET PO ×2 (11:24→20:01)
[2024-07-31] MEDS: Multivitamin TABLET 1 TAB PO (11:26)
[2024-07-31] MEDS: Isosorbide Mononitrate 30 MG TAB.ER.24H PO (11:26)
[2024-07-31] MEDS: Meropenem 1 GM VIAL IVPUSH ×2 (11:27→20:01)
[2024-07-31] MEDS: Cyanocobalamin (Vitamin B-12) 1,000 MCG TABLET 1000 MCG PO (11:27)
[2024-07-31] MEDS: predniSONE 10 MG TABLET PO (11:27)
[2024-07-31] MEDS: Aspirin Enteric Coated 81 MG TABLET.DR PO (11:28)
--- NOTE | 2024-07-31 11:41 | MHC.CM.PN ---
IMM 07/31/24, Pt lives with her dtr and son in law. She has home care services from: [facility], [facility]. She has DME of home O2 from [facility], w/[facility], hosp. bed. HCP is on file, and confirmed, names her dtr Ximena. Family to transport pt home [place]. DCP: home, resume services. Dtr requested provider call or come see her, she has questions, and would like to take pt. home and not have her admitted. On last admission dtr reports that pt. became very anxious, pt. has Dementia. Provider notified. CM to follow for DC needs.
[2024-07-31 12:54] LABS: Glucose, Whole Blood 141 mg/dL (60-115)
--- NOTE | 2024-07-31 13:20 | MHC.SL.SWA ---
Speech Pathologist Impression: Age-related changes to swallow mechanism, plus impulsivity, elevate pt risk for aspiration. Pt denies hx of dysphagia (though documented) and expresses frustration when cued. Risk of Aspiration Due to: History of Pneumonia Dysphasia Diet Status: Liquid Consistency and Strategies for Safe Swallow: Liquid Intake Recommendation: Thin Liquid Intake Strategies: Small Sips Solid Food Consistency: Dietary Recommendations: Regular Additional Modifications to Solid Foods: Discharge summary up to date. Oral Medication Intake: Whole with Puree Please contact the pharmacy regarding appropriate crushable or liquid drug formulations that are available whenever modified delivery is recommended. Compensatory Strategies and Precautions to be Taken for Safe Swallow: Sitting Upright (90 deg) Small Bites and Sips Alternate Liquids/Solids Rate of Ingestion Change Supervision While Eating and Drinking for Safe Swallow: Total Supervision (1:1) Foods to Avoid: Switzer tough or difficult to chew solids Swallowing Recommended Treatments: Compens. Strategy Educat. Recommendation for Speech: Comment: Pt presents with age-related changes to swallow mechanism, and in presence of missing dentures, mildly delayed oral prep/AP transit and pharyngeal trigger coordination. Pt needs cues to slow pace, take small sips/bites; though she also becomes resistant to cues and shows increased impulsivity when she is frustrated with prompts. Frequency/Duration: Date Range for Service Req: Timeline to reassess: Customer Field Representative Clinican/Clinical Fellow: No Supervisory Statement: I have reviewed and agree with the student/clinical fellow's documentation: N/A Speech Language Pathologist: Yesy Anthony M.S., CCC-TAXIMETER REPAIRER
[2024-07-31 16:02] LABS: Glucose, Whole Blood 170 mg/dL (60-115)
[2024-07-31] MEDS: Nystatin Oral Susp 500,000 UNIT/5 ML ORAL.SUSP 100000 UNIT PO ×2 (17:04→20:06)
[2024-07-31] MEDS: Nystatin Powder 15 GM BOTTLE 1 APPL TOPICAL (17:07)
--- NOTE | 2024-07-31 18:26 | PC.NURSE ---
Family wants to speak with Pharmacy, Pharmacy called and will come down and talk with them.
--- NOTE | 2024-07-31 19:41 | HE.PHANOTE ---
RE: MED REC Daughter Stella requested to talk to pharmacist. She said patient only take pantoprazole 40 mg once a day in the morning and nystatin suspension is to be swished and spitted tid. The orders were corrected and checked that pantoprazole is loaded in pyxis.
--- NOTE | 2024-07-31 19:41 | PC.NURSE ---
Patient and daughter pick and choose what medications to take. 2 staff been going in patient's room. Patient will insist on staff wait on her as she eats or drinks, and refills drink as she sips on them. Care and education about hospital environment provided.
[2024-07-31] MEDS: Ferrous Sulfate 324 MG TABLET.DR PO (20:01)
[2024-07-31] MEDS: Montelukast Sodium 10 MG TABLET PO (20:01)
[2024-07-31] MEDS: QUEtiapine Fumarate 50 MG TABLET PO (20:01)
[2024-07-31] MEDS: Atorvastatin Calcium 40 MG TABLET PO (20:01)
[2024-07-31 20:36] LABS: Glucose, Whole Blood 185 mg/dL (60-115)
[2024-07-31] MEDS: Fluticasone Propionate Nasal 16 GM SPRAY 1 SPRAY NOSTRIL-B (21:49)
[2024-08-01] VITALS (8 sets, daily range): BP systolic 126–172; BP diastolic 60–79; PULSE 82–86; RESP 17–20; TEMP 36–36.4; O2SAT 97–99; BMI 36.4
--- NOTE | 2024-08-01 03:50 | HO.SKINPHOTO ---
Location: Buttocks taken 07/31 @ 20:15 with verbal permission from patient and her daughter Ximena present at the bedside
[2024-08-01] MEDS: Pantoprazole Sodium 20 MG TABLET.DR 40 MG PO (06:03)
[2024-08-01 07:15] LABS: Anion Gap 17 (12-20); Blood Urea Nitrogen 33 mg/dL (9-16); Calcium 8.4 mg/dL (8.4-10.2); Carbon Dioxide 21 mmol/L (22-29); Chloride 107 mmol/L (96-108); Creatinine Clr Calc Pharmacy 51.8; Estimated Glomerular Filt Rate 32; Glucose Random 171 mg/dL (60-115); Potassium 3.8 mmol/L (3.3-5.1); Sodium 141 mmol/L (135-145)
[2024-08-01 07:25] LABS: Hemoglobin 9.7 g/dl (12.0-16.0); Mean Corpuscular HGB Conc 34.6 g/dl (31.0-35.0); Mean Corpuscular Hemoglobin 33.2 pg (27.0-33.0); Mean Corpuscular Volume 95.9 fL (80.0-98.0); NRBC Pct Auto 0.4 /100WBC (0.0-0.2); PLT CLUMP 1; Red Blood Count 2.92 X10*6/uL (4.20-5.50); Red Cell Distribution Width 16.8 % (11.0-16.0)
[2024-08-01 07:26] LABS: White Blood Count 9.9 X10*3/uL (4.8-10.8)
--- NOTE | 2024-08-01 07:31 | PHA.MEDREC ---
Pharmacy Consult ? Medication Reconciliation Pharmacy has completed the medication reconciliation. Utilized med rec from last visit, and [facility] spoke with family and patient at bedside to confirm meds.
[2024-08-01 07:40] LABS: Glucose, Whole Blood 125 mg/dL (60-115)
[2024-08-01] MEDS: Isosorbide Mononitrate 30 MG TAB.ER.24H PO (07:44)
[2024-08-01] MEDS: Aspirin Enteric Coated 81 MG TABLET.DR PO (07:44)
[2024-08-01] MEDS: Metoprolol Tartrate 25 MG TABLET PO ×2 (07:44→20:08)
[2024-08-01] MEDS: Multivitamin TABLET 1 TAB PO (07:45)
[2024-08-01] MEDS: predniSONE 10 MG TABLET PO (07:45)
[2024-08-01] MEDS: Cyanocobalamin (Vitamin B-12) 1,000 MCG TABLET 1000 MCG PO (07:45)
[2024-08-01] MEDS: Meropenem 1 GM VIAL IVPUSH ×2 (07:45→20:11)
[2024-08-01] MEDS: Nystatin Oral Susp 500,000 UNIT/5 ML ORAL.SUSP 100000 UNIT PO ×3 (07:45→20:09)
[2024-08-01] MEDS: Fluticasone Propionate Nasal 16 GM SPRAY 1 SPRAY NOSTRIL-B ×2 (07:46→20:21)
[2024-08-01 08:06] LABS: Mean Platelet Volume 12.4 fL (9.4-12.3); Platelet Count 119 X10*3/uL (160-400)
[2024-08-01] MEDS: PT OWN (Umeclidinium-Vilanterol [Anoro Ellipta] 62.5-25 mcg/actuation bl 1 EACH INHALE (08:26)
[2024-08-01] MEDS: levalbuterol HCL 1.25 MG/3 ML VIAL.NEB INHALE ×3 (08:26→20:17)
--- NOTE | 2024-08-01 09:03 | HO.PM.IMPN ---
Subjective Subjective Date of Service: 08/01/24 Interval History: no complaints Physical Exam Vital Signs: Vital Signs: Last Vital Signs Temp 96.8 F 08/01/24 07:28 Pulse 85 08/01/24 08:28 Resp 18 08/01/24 08:28 BP 172/79 H 08/01/24 07:28 Pulse Ox 97 08/01/24 07:28 O2 Del Method Room Air 08/01/24 07:28 BMI result Body Mass Index 85.1 General: AO X 3, no acute distress Resp: some exp wheezing bilateral (chronic), no accessory muscles used CVS: S1,S2,RRR GI: soft, non tender, non distended Neuro: motor grossly intact, alert Psych: appropriate affect, appropriate insight Objective Data Active Medications Acetaminophen (Acetaminophen 325 Mg Tablet) 650 mg PO Q6H PRN PRN Reason: Pain, Mild 1-3,fever,headache Last Admin: 07/31/24 05:10 Dose: 650 mg Documented By: GLENROY Albuterol Sulfate (Albuterol Sulfate 90 Mcg 8 Gm Inhaler) 2 puff INHALE Q4H PRN PRN Reason: Shortness Of Breath Or Wheezing Aspirin (Aspirin Enteric Coated 81 Mg Tablet.) 81 mg PO DAILY [facility] Last Admin: 08/01/24 07:44 Dose: 81 mg Documented By: GROVER Atorvastatin Calcium (Atorvastatin Calcium 40 Mg Tablet) 40 mg PO BEDTIME [facility] Last Admin: 07/31/24 20:01 Dose: 40 mg Documented By: URIEL Calcium Carbonate (Calcium Carbonate 750 Mg Tab.Chew) 750 mg PO Q4H PRN PRN Reason: Heartburn Cyanocobalamin (Cyanocobalamin (Vitamin B-12) 1,000 Mcg Tablet) 1,000 mcg PO DAILY [facility] Last Admin: 08/01/24 07:45 Dose: 1,000 mcg Documented By: GROVER Dextrose (Dextrose 50 % 25 Gm/50 Ml Syringe) 25 gm IVPUSH Q15M PRN; Protocol PRN Reason: per Hypoglycemia Standing Ord. Ferrous Sulfate (Ferrous Sulfate 324 Mg Tablet.) 324 mg PO BEDTIME [facility] Last Admin: 07/31/24 20:01 Dose: 324 mg Documented By: URIEL Fluticasone Propionate (Fluticasone Propionate Nasal 16 Gm [place]) 1 spray NOSTRIL-B BID [facility] Last Admin: 08/01/24 07:46 Dose: 1 spray Documented By: GROVER Glucose (Glucose Gel 15 Gm Gel..Gram.) 15 gm PO Q15M PRN; Protocol PRN Reason: per Hypoglycemia Standing Ord. Heparin Sodium (Porcine) (Heparin Sodium,Porcine 5,000 Unit/Ml Vial) 5,000 unit SUBCUT Q12H [facility] Last Admin: 08/01/24 05:28 Dose: Not Given Documented By: URIEL Non-Admin Reason: Patient Refused Hydroxyzine HCl (Hydroxyzine Hcl 10 Mg Tablet) 10 mg PO Q8H PRN PRN Reason: Anxiety Last Admin: 07/31/24 01:07 Dose: 10 mg Documented By: GLENROY Insulin Human Lispro (Insulin Lispro 100 Unit/Ml 3 Ml Vial) 0 unit SUBCUT QIDACHS [facility]; Protocol Last Admin: 08/01/24 07:41 Dose: Not Given Documented By: GROVER Non-Admin Reason: No Insulin Coverage Isosorbide Mononitrate (Isosorbide Mononitrate 30 Mg Tab.Er.24h) 30 mg PO DAILY [facility]; Protocol Last Admin: 08/01/24 07:44 Dose: 30 mg Documented By: GROVER Levalbuterol HCl (Levalbuterol Hcl 1.25 Mg/3 Ml Vial.Neb) 1.25 mg INHALE QID [facility] Last Admin: 08/01/24 08:26 Dose: 1.25 mg Documented By: KAY Magnesium Hydroxide (Milk Of Magnesia 30 Ml Oral.Susp) 30 ml PO DAILY PRN PRN Reason: Constipation Melatonin (Melatonin 3 Mg Tablet) 6 mg PO BEDTIME PRN PRN Reason: Insomnia Last Admin: 07/30/24 22:10 Dose: 6 mg Documented By: BHAVIN Meropenem (Meropenem 1 Gm Vial) 1 gm IVPUSH BID [facility] Last Admin: 08/01/24 07:45 Dose: 1 gm Documented By: GROVER Metoprolol Tartrate (Metoprolol Tartrate 25 Mg Tablet) 25 mg PO BID [facility]; Protocol Last Admin: 08/01/24 07:44 Dose: 25 mg Documented By: GROVER Montelukast Sodium (Montelukast Sodium 10 Mg Tablet) 10 mg PO BEDTIME [facility] Last Admin: 07/31/24 20:01 Dose: 10 mg Documented By: URIEL Multivitamins/Vitamin C (Multivitamin Tablet) 1 tab PO DAILY [facility] Last Admin: 08/01/24 07:45 Dose: 1 tab Documented By: GROVER Pt Own (Umeclidinium -Vilanterol [Anoro Ellipta] 62.5-25 Mcg /Actuation Bl 1 inhalation INHALE RDAILY [facility] Last Admin: 08/01/24 08:26 Dose: 1 inhalation Documented By: KAY Nystatin (Nystatin Powder 15 Gm Bottle) 1 appl TOPICAL BID PRN; Protocol PRN Reason: Rash Last Admin: 07/31/24 17:07 Dose: 1 appl Documented By: RAHEEM Nystatin (Nystatin Oral Susp 500,000 Unit/5 Ml Oral.Susp) 100,000 unit PO TID [facility]; Protocol Last Admin: 08/01/24 07:45 Dose: 100,000 unit Documented By: GROVER Pantoprazole Sodium (Pantoprazole Sodium 20 Mg Tablet.Dr) 40 mg PO DAILY@0630 [facility] Last Admin: 08/01/24 06:03 Dose: 40 mg Documented By: URIEL Prednisone (Prednisone 10 Mg Tablet) 10 mg PO DAILY [facility] Last Admin: 08/01/24 07:45 Dose: 10 mg Documented By: GROVER Quetiapine Fumarate (Quetiapine Fumarate 50 Mg Tablet) 50 mg PO BEDTIME [facility] Last Admin: 07/31/24 20:01 Dose: 50 mg Documented By: URIEL Sodium Chloride (0.9 % Sodium Chloride Flush 3 Ml Syringe) 3 ml IVFLUSH QSHIFT [facility] Last Admin: 08/01/24 08:00 Dose: Not Given Documented By: GROVER Non-Admin Reason: Previously Administered Tobramycin Sulfate (Tobramycin Sulfate 80 Mg/2 Ml Vial) 300 mg INHALE RBID [facility] Last Admin: 08/01/24 08:27 Dose: Not Given Documented By: KAY Non-Admin Reason: Administered by Alternate Route Labs 08/01/24 06:15 08/01/24 06:16 Labs: Laboratory Results - last 24 hr 07/31/24 07/31/24 07/31/24 12:41 15:57 20:21 MCV MCH MCHC RDW Plt Count MPV Absolute Nucleated RBC Nucleated RBC % (auto) Anion Gap Estim Creat Clear Calc Estimated GFR POC Glucose 141 H 170 H 185 H Random Glucose Calcium 08/01/24 08/01/24 08/01/24 06:15 06:16 07:27 MCV 95.9 MCH 33.2 H MCHC 34.6 RDW 16.8 H Plt Count 119 L MPV 12.4 H Absolute Nucleated RBC 0.040 H Nucleated RBC % (auto) 0.4 H Anion Gap 17 Estim Creat Clear Calc 51.8 Estimated GFR 32 POC Glucose 125 H Random Glucose 171 H Calcium 8.4 Microbiology Microbiology Results: Microbiology 07/30/24 14:44 Blood Culture - Preliminary Blood - Venous No growth after 24 hours. 07/30/24 14:43 Blood Culture - Preliminary Blood - Venous No growth after 24 hours. 07/30/24 Unknown Urine Culture - Preliminary Urine clean catch - Clean Catch Midstream Culture too young to evaluate. Assessment and Plan (1) Diabetes: Status: Acute Plan 83F PMH diabetes, COPD on p.r.n. O2, chronic systolic CHF with EF of 35-40%, paroxysmal atrial fibrillation no longer on anticoagulation due to major bleed, coronary artery disease status post CABG, unspecified dementia, hyperlipidemia sent into the hospital for ESBL UTI Acute metabolic encephalopathy due to proteus mirabilis urinary tract infection Unclear error on sensitivity report continue meropenem for now and follow up repeat culture (sensitivities expected by 08/02/24) Pneumonia with concern for aspiration Continue meropenem, KETTLE GIRL appreciated - continue regular solids, with thin liquids, aspiration precaustions Acute kidney injury improving slowly with ivf Chronic systolic CHF holding Lasix for now Monitor closely Diabetes Insulin sliding scale Paroxysmal atrial fibrillation Continue metoprolol, not on anticoagulation due to history of major bleed Coronary artery disease Continue aspirin and statin DVT prophylaxis with heparin subQ Full code reason for continued hospitalization:abraham, awaiting sensitivities Quality Stroke Does the patient have a stroke diagnosis?: No VTE Prior VTE?: No VTE Risk Level:: Medical - moderate - high VTE Device Contraindication: Treatment Not Indicated VTE Drug Contraindication: N/A - Med Ordered
--- NOTE | 2024-08-01 10:33 | MHC.SL.SWA ---
Speech Pathologist Impression: Risk of Aspiration Due to: History of Pneumonia Dysphasia Diet Status: Continue on REGULAR diet with THIN liquids, pills whole with puree. Liquid Consistency and Strategies for Safe Swallow: Liquid Intake Recommendation: Thin Liquid Intake Strategies: No Straws Double Swallow Solid Food Consistency: Dietary Recommendations: Regular Additional Modifications to Solid Foods: Avoid difficult to chew solids. Double swallow as needed, small bites and sips, slow rate, alternated liquids and solids, no straws. Oral Medication Intake: Whole with Puree Please contact the pharmacy regarding appropriate crushable or liquid drug formulations that are available whenever modified delivery is recommended. Compensatory Strategies and Precautions to be Taken for Safe Swallow: Sitting Upright (90 deg) Double Swallow Small Bites and Sips Alternate Liquids/Solids Rate of Ingestion Change Supervision While Eating and Drinking for Safe Swallow: Intermittent Supervision Foods to Avoid: Difficult to chew solids, dry, crunchy textures. Swallowing Recommended Treatments: Compens. Strategy Educat. Recommendation for Speech: Comment: Patient seen at the conclusion of breakfast today, which she reported enjoying. Patient was seated upright in bed with breakfast tray in front of her, initially guarded when I introduced myself as an PLATE SHEAR OPERATOR, but then quickly became quite pleasant and cooperative, talking about growing up and living [place] in [place] and time she spent in [place]. Patient reported that she had eaten her eggs and home fries and felt full. She was observed taking sips from her coffee cup, after one sip and a period of delay, patient was noted to produce a wet/congested cough, but then had a clear voice, and was laughing and talking normally. Patient recalled the MBSS study, reported that she never drinks with a straw, always chews thoroughly and takes her time with meals. PLATE SHEAR OPERATOR annotated board with diet and some strategies/recommendations. Patient appears to be tolerating least restrictive diet with some strategies for eating/drinking. PLATE SHEAR OPERATOR to f/u X1 for continued toleration. Frequency/Duration: Date Range for Service Req: Timeline to reassess: Systems Qa Analyst Clinican/Clinical Fellow: No Supervisory Statement: I have reviewed and agree with the student/clinical fellow's documentation: N/A Speech Language Pathologist: Alexandria Luu M.A., [facility]-PLATE SHEAR OPERATOR
[2024-08-01 11:37] LABS: Glucose, Whole Blood 196 mg/dL (60-115)
[2024-08-01] MEDS: Insulin Lispro 100 UNIT/ML 3 ML VIAL SUBCUT ×3 (11:43→20:10)
--- NOTE | 2024-08-01 13:39 | PC.NURSE ---
Pt Daughter coming into the hallway and interrupting care with talking to CNAs in the hallway. Daughter educated by this senior writer to please wait patiently in the room and a staff member will come answer the nur. States her mother is a 1:1 feed, ST note says intermittent supervision.
--- NOTE | 2024-08-01 14:41 | MHC.CLN ---
NUTRITION CONSULT FOR SKIN INTEGRITY. DIET=DIABETIC 1800 KCALS-APPROPRIATE. SEEN BY PRODUCTION FOREMAN TODAY AND OK FOR REGULAR CONSISTENCY. REPORTS GOOD APPETITE. DISLIKES ENSURE SUPPLEMENT/DOES NOT WANT. INCREASED NUTRITION NEEDS DUE TO IMPAIRED SKIN INTEGRITY-DTI BILATERAL BUTTOCKS. FOLLOW FOR PO INTAKE AND SKIN INTEGRITY. SEE CLINICAL NUTRITION ASSESSMENT 08/01/24.
[2024-08-01] MEDS: 0.9 % Sodium Chloride Flush 3 ML SYRINGE IVFLUSH (15:42)
[2024-08-01 16:26] LABS: Glucose, Whole Blood 183 mg/dL (60-115)
--- NOTE | 2024-08-01 18:17 | HO.WOUND ---
Wound Consult: Initial 83yr old?female admitted to [facility] on 07/30/24 - See progress notes and H&P for detailed history.? Wound consult placed for Coccyx / Buttock wound.? Patient agreeable to assessment and photo documentation.? 08/01/24 Last admission 06/2024 Sacrum / Coccyx Etiology: ??Deep Tissue Injury in Evolution Present on Admission Wound Bed: Sacrum noted for red maroon putple nonblanchable tissue concern for left sacral site to be involution due to dark wound bed dry desquamation noted - Drainage / Odor: small serosang Edges: attached Caroline wound: MASD ? No Induration, Fluctuance or Warmth noted Pain: pain reported Goals of Treatment: ? Off Load pressure and barrier cream to protect from friction and moisture along with foam dressing Bilateral heels assessed - intact red blanchable tissue no PI injury noted - preventative foam to be applied and elevate on pillows. Recommendations: 1. Turn and Reposition every 2 hours and as needed for patient comfort.? Use pillows or wedges to support off loading positions. 2. Off Load all bony prominences with use of pillows and heel boots if needed.? Apply Preventative foams where needed. ? 3. Monitor for incontinence and moisture control, use barrier creams when needed for prevention and treatment. 4. Provide adequate and supplemental nutrition.? 5. Continue low air loss mattress. 6. When applicable maintain blood glucose levels per Providers order. 7. Bilateral Heels - Elevate heels off of surface of bed with use of pillows. Apply preventative foam dressing to heels change every 5 days and PRN. 8. Sacrum - Off Load Pressure with Q2 hr turns and use of pillows - Cleanse with PH balance spray or wipes, pat dry. ?Apply thin layer of Triad to wound bed. Do not remove all of paste between applications as this may cause further skin damage.? Cover with foam dressing to aid in off loading and protection from friction. Change every 5 days and PRN. Re-consult wound care Nurse for wound deterioration or wound changes.
--- NOTE | 2024-08-01 18:30 | PC.NURSE ---
Attempt IV x2, unable to place, Primary RN notified.
[2024-08-01 19:38] LABS: Glucose, Whole Blood 180 mg/dL (60-115)
[2024-08-01] MEDS: Ferrous Sulfate 324 MG TABLET.DR PO (20:08)
[2024-08-01] MEDS: Montelukast Sodium 10 MG TABLET PO (20:08)
[2024-08-01] MEDS: QUEtiapine Fumarate 50 MG TABLET PO (20:08)
[2024-08-01] MEDS: Atorvastatin Calcium 40 MG TABLET PO (20:08)
[2024-08-01] MEDS: Tobramycin Sulfate 80 MG/2 ML VIAL 300 MG INHALE (20:17)
[2024-08-02] MEDS: 0.9 % Sodium Chloride Flush 3 ML SYRINGE IVFLUSH ×2 (00:27→08:22)
[2024-08-02 03:31] VITALS: BP 138/65; PULSE 85; RESP 16; TEMP 36.5; O2SAT 98
[2024-08-02] MEDS: Heparin Sodium,Porcine 5,000 UNIT/ML VIAL 5000 UNIT SUBCUT ×2 (04:01→16:31)
[2024-08-02] MEDS: Pantoprazole Sodium 20 MG TABLET.DR 40 MG PO (05:45)
[2024-08-02 07:33] LABS: Glucose, Whole Blood 96 mg/dL (60-115)
[2024-08-02 08:00] VITALS: BP 165/69; PULSE 100; RESP 16; TEMP 36.4; O2SAT 96
[2024-08-02] MEDS: Aspirin Enteric Coated 81 MG TABLET.DR PO (08:15)
[2024-08-02] MEDS: predniSONE 10 MG TABLET PO (08:15)
[2024-08-02] MEDS: Cyanocobalamin (Vitamin B-12) 1,000 MCG TABLET 1000 MCG PO (08:15)
[2024-08-02] MEDS: Multivitamin TABLET 1 TAB PO (08:15)
[2024-08-02] MEDS: Metoprolol Tartrate 25 MG TABLET PO ×2 (08:15→22:15)
[2024-08-02] MEDS: Isosorbide Mononitrate 30 MG TAB.ER.24H PO (08:15)
[2024-08-02] MEDS: Nystatin Oral Susp 500,000 UNIT/5 ML ORAL.SUSP 100000 UNIT PO ×2 (08:15→22:16)
[2024-08-02] MEDS: Meropenem 1 GM VIAL IVPUSH (08:16)
[2024-08-02] MEDS: Fluticasone Propionate Nasal 16 GM SPRAY 1 SPRAY NOSTRIL-B (08:25)
--- NOTE | 2024-08-02 10:21 | HO.MIDLINE_ITS ---
Midline Insertion MIDLINE INSERTION Diagnosis: PNA/UTI Indication: 4wks ABT Pertinent Labs: reviewed Technique: Using sterile technique including cap and mask, glove and drape, the arm was prepped and draped in the usual sterile fashion of full barrier technique with CHG. Using ultrasound guidance, right brachial vein access was obtained . 4fr single lumen non PASV trimmable midline catheter trimmed to 10cm was positioned. The procedure was performed in room 272. Ultrasound was used to document vein patency and for needle entry. A formal ultrasound picture was recorded. Vascular Traffic Sign Erection Supervisor has released the line for use and it is currently dressed with a StatLock, Tegaderm, and CHG disc. Verification has been performed for blood return and line patency. Arm Circumference: 30cm Equipment: BlackArrow PowerMidline Catheter Catheter Type: 4FR single lumen non PASV midline catheter Lot #: [id number]
--- NOTE | 2024-08-02 11:32 | P.DS_ITS ---
DS: Providers Provider Date of admission: 07/30/24 17:00 Primary care physician: Monica Arciniega MD Consults: 07/31/24 12:11 Consult to Wound Care Routine Reason for consultation: bilat buttocks and right abd folds DS: Diagnosis Discharge Diagnosis (1) Acute metabolic encephalopathy: Status: Acute (2) Urinary tract infection due to Proteus: Status: Acute (3) CANDIDO (acute kidney injury): Status: Resolved (4) Congestive heart failure: Status: Acute DS: Summary Hospital Course Hospital Course: HPI From admission H&P 83F PMH diabetes, COPD on p.r.n. O2, chronic systolic CHF with EF of 35-40%, paroxysmal atrial fibrillation no longer on anticoagulation due to major bleed, coronary artery disease status post CABG, unspecified dementia, hyperlipidemia recently discharged 07/04/2024 for COPD and sepsis due to pneumonia. Was at home and daughter noted patient was acting more confused similar to previous UTIs. Obtained a UA with urine culture and was called to come to the ED due to ESBL on culture, report states ESBL Proteus but also mentioned sensitivities to penicillins and cephalosporins. In ED noted to have acute kidney injury with creatinine of 1.7. Chest x-ray with subtle opacity in the right base possible pneumonia. Hospital Course: Patient was started on IV meropenem for resistant urinary tract infection as well as pneumonia, likely due to aspiration. She was seen by speech therapy who recommended on modified diet and to have aspiration precautions. Patient's urine culture returned positive for Proteus which was resistant to multiple antibiotics and sensitive to carbapenems. She will be discharged home on 10 days of IV Invanz, end date of 08/12/2024. Of note, the patient had acute kidney injury during the hospitalization which has slowly improved towards her baseline with gentle IV hydration. Her potassium and Lasix were held in the hospital and will be held for several days upon discharge. She can have repeat chemistries early next week with resumption of Lasix and potassium should her renal function be close to baseline. Patient is seen and examined on the day of discharge, she is stable for discharge. Final discharge diagnosis 1. Acute metabolic encephalopathy 2. Proteus urinary tract infection, ESBL 3. Pneumonia, suspected aspiration 4. Acute kidney injury 5. Chronic systolic heart failure 6. Diabetes mellitus 7. Paroxysmal AFib 8. CAD Physical Exam Vital Signs: Vital Signs: Last Vital Signs Temp 97.6 F 08/02/24 08:00 Pulse 100 08/02/24 08:00 Resp 16 08/02/24 08:00 BP 165/69 H 08/02/24 08:00 Pulse Ox 96 08/02/24 08:00 O2 Del Method Room Air 08/02/24 08:00 BMI result Body Mass Index 36.4 DS: Data Data Completed and Pending Completed studies during hospitalization [Text1]: Procedures Excision of Descending Colon, Via Natural or Artificial Opening Endoscopic, Diagnostic (01/14/23) Excision of Rectum, Via Natural or Artificial Opening Endoscopic, Diagnostic (01/14/23) Excision of Sigmoid Colon, Via Natural or Artificial Opening Endoscopic, Diagnostic (01/14/23) Excision of Transverse Colon, Via Natural or Artificial Opening Endoscopic, Diagnostic (01/14/23) Insertion of Endotracheal Airway into Trachea, Via Natural or Artificial Opening (06/25/24) Introduction of Vasopressor into Peripheral Vein, Percutaneous Approach (06/25/24) Respiratory Ventilation, 24-96 Consecutive Hours (06/25/24) Supplement Abdominal Wall with Synthetic Substitute, Open Approach (09/17/22) Transfusion of Nonautologous Red Blood Cells into Peripheral Vein, Percutaneous Approach (04/06/22) Labs on day of discharge: Laboratory Results - last 24 hr 08/01/24 08/01/24 08/01/24 11:32 16:22 19:17 POC Glucose 196 H 183 H 180 H 08/02/24 07:27 POC Glucose 96 Preliminary micro results at discharge 07/30/24 14:44 Blood Culture - Preliminary Blood - Venous No growth after 48 hours. 07/30/24 14:43 Blood Culture - Preliminary Blood - Venous No growth after 48 hours. Discharge Plan Discharge Anticipated Discharge Date/Time: 08/02/24 11:25 Patient Disposition: Home Health Service Discharge Diagnosis: UTI, pneumonia, CANDIDO Referrals: Monica Arciniega MD [Primary Care Provider] - 1 Week Discharge Medications: New ertapenem 1 gram recon soln 1 g IM Q24H 10 Days Qty: 10 0RF Continued isosorbide mononitrate 30 mg tablet extended release 24 hr 30 mg PO DAILY aspirin 81 mg tablet,delayed release (DR/EC) 81 mg PO DAILY pantoprazole 40 mg tablet,delayed release (DR/EC) 40 mg PO DAILY@0630 albuterol sulfate [Ventolin HFA] 90 mcg/actuation HFA aerosol inhaler 2 puff INHALATION Q4-6H PRN (Reason: Shortness Of Breath Or Wheezing) cyanocobalamin (vitamin B-12) 1,000 mcg tablet 1,000 mcg PO DAILY nystatin 100,000 unit/gram powder 1 appl topical BID PRN (Reason: Rash) Protocol: Apply to: Apply to: Abdominal Fold Rx Instructions: groin area metoprolol tartrate 25 mg Tablet 25 mg PO BID Qty: 60 0RF Protocol: Hold for SBP/HR < HOLD for SBP < : 90 HOLD for HR < : 60 tobramycin 300 mg/4 mL solution for nebulization 300 mg INHALATION BID Anoro Ellipta 62.5-25 mcg/actuation blister with device 1 inh INHALATION DAILY Lactobacillus acidophilus 500 million cell capsule 500,000,000 cell PO DAILY nystatin 100,000 unit/mL suspension 100,000 unit PO TID Rx Instructions: Swish and spit for thrush prednisone 10 mg tablet 10 mg PO DAILY Taper: Prednisone 40 mg daily for 3 Days and 0 Hour 30 mg daily for 3 Days and 0 Hour 20 mg daily for 3 Days and 0 Hour 10 mg daily for 3 Days and 0 Hour Rx Instructions: see taper instructions levalbuterol HCl 1.25 mg/3 mL solution for nebulization 1.25 mg inhalation QID atorvastatin [Lipitor] 40 mg tablet 40 mg PO BEDTIME Qty: 30 0RF quetiapine 50 mg tablet 50 mg PO BEDTIME multivitamin Tablet 1 tab PO DAILY acetaminophen 325 mg Tablet 650 mg PO Q6H PRN (Reason: Pain) ferrous sulfate 325 mg (65 mg iron) tablet 325 mg PO BEDTIME Triple Paste 12.8 % Ointment 1 appl topical QID 30 Days Qty: 227 0RF Protocol: Apply to: Apply to: rash fluticasone propionate 50 mcg/actuation spray,suspension 1 spray intranasal BID Rx Instructions: 1 spray into each nostril montelukast 10 mg tablet 10 mg PO BEDTIME Held potassium chloride 20 mEq tablet extended release 20 meq PO DAILY Hold Instructions: Resume on 08/05/24. furosemide 40 mg Tablet 40 mg PO DAILY Qty: 90 0RF Hold Instructions: Resume on 08/05/24. Protocol: Hold for SBP< HOLD for SBP < : 90 Discontinued doxycycline monohydrate 100 mg tablet 100 mg PO BID 28 Days Qty: 56 2RF No Action (DME) Aerochamber MV Spacer See Rx Instructions .ROUTE .MEDSUPPLY Qty: 1 0RF Rx Instructions: As directed (DME) FreeStyle Lite Strips Strip Qty: 100 0RF Rx Instructions: Test four times a day or as directed. (DME) blood-glucose meter [FreeStyle Lite Meter] Kit Qty: 1 0RF Rx Instructions: As Directed (DME) pen needle, diabetic 32 gauge x 1/4 needle Qty: 100 0RF Rx Instructions: Use four times a day or as directed. (DME) lancets [FreeStyle Lancets] 28 gauge misc Qty: 100 0RF Rx Instructions: Test four times a day or as directed. (DME) nebulizers Kit See Rx Instructions .Route Rx Instructions: As directed Diet: Advance to usual diet Activity on Discharge: As tolerated Stand Alone Forms: Patient Portal Discharge page Print Language: Yoruba Other Ambulatory Orders: Basic Metabolic Panel (Routine) Timeframe: [id number] Facility: [facility] - Location: Laboratory Ordered By: Rafael Palomares Care Plan Goals: Take 10 days of Invanz IV, last day 08/12/2024 Hold your Lasix and potassium until next week, repeat your chemistry to check for kidney function and restart if improved Health Concerns: see discharge summary Plan of Treatment: see discharge summary Assessment: see discharge summary
[2024-08-02 11:40] LABS: Hematocrit 27.1 % (37.0-47.0); Mean Corpuscular HGB Conc 33.2 g/dl (31.0-35.0); Mean Corpuscular Hemoglobin 32.8 pg (27.0-33.0); Mean Corpuscular Volume 98.9 fL (80.0-98.0); Mean Platelet Volume 11.1 fL (9.4-12.3); NRBC Pct Auto 0.3 /100WBC (0.0-0.2); Platelet Count 135 X10*3/uL (160-400); Red Blood Count 2.74 X10*6/uL (4.20-5.50); Red Cell Distribution Width 17.2 % (11.0-16.0); White Blood Count 8.8 X10*3/uL (4.8-10.8)
--- NOTE | 2024-08-02 11:44 | MHC.SL.SWA ---
Speech Pathologist Impression: Mild Oropharyngeal Dysphagia Risk of Aspiration Due to: History of Pneumonia Dysphasia Diet Status: Continue on REGULAR diet with THIN liquids, pills whole with puree. Liquid Consistency and Strategies for Safe Swallow: Liquid Intake Recommendation: Thin Liquid Intake Strategies: No Straws Double Swallow Solid Food Consistency: Dietary Recommendations: Regular Additional Modifications to Solid Foods: Avoid difficult to chew solids. Double swallow as needed, small bites and sips, slow rate, alternated liquids and solids, no straws. Oral Medication Intake: Whole with Puree Please contact the pharmacy regarding appropriate crushable or liquid drug formulations that are available whenever modified delivery is recommended. Compensatory Strategies and Precautions to be Taken for Safe Swallow: Sitting Upright (90 deg) Double Swallow Small Bites and Sips Alternate Liquids/Solids Rate of Ingestion Change Supervision While Eating and Drinking for Safe Swallow: Total Supervision (1:1) Foods to Avoid: Difficult to chew solids, dry, crunchy textures. Swallowing Recommended Treatments: Compens. Strategy Educat. Recommendation for Speech: D/C, please re-refer if needed Well Surveying Engineer Clinican/Clinical Fellow: No Supervisory Statement: I have reviewed and agree with the student/clinical fellow's documentation: N/A Speech Language Pathologist: Rebekah Bagley M.A., CCC-AUTO GARAGE ATTENDANT
[2024-08-02 11:54] LABS: Glucose, Whole Blood 185 mg/dL (60-115)
[2024-08-02 11:58] LABS: Anion Gap 12 (12-20); Blood Urea Nitrogen 28 mg/dL (9-16); Calcium 8.4 mg/dL (8.4-10.2); Carbon Dioxide 28 mmol/L (22-29); Chloride 101 mmol/L (96-108); Creatinine Clr Calc Pharmacy 26.4; Estimated Glomerular Filt Rate 35; Glucose Random 180 mg/dL (60-115); Potassium 3.5 mmol/L (3.3-5.1); Sodium 137 mmol/L (135-145)
[2024-08-02] MEDS: Ertapenem Sodium 1 GM VIAL IVPUSH (12:01)
[2024-08-02] MEDS: Insulin Lispro 100 UNIT/ML 3 ML VIAL SUBCUT ×3 (12:01→22:16)
--- NOTE | 2024-08-02 13:20 | MHC.CM.PN ---
Addendum entered by Luh Leiva RN 08/02/24 13:49: Per MD, dc cancelled for today. Daughter, [facility] updated. Original Note: Per MD patient medically cleared for dc home w/ family support, resumption of PT/SN through [facility], and [facility] for 10 days IV ertapenem. CM reviewed plan with daughter who will meet with [facility] RN for teach and will administer abx at home. Plan for transport home via [facility] at 4:30pm. RN aware. [facility] booking ID [id number].
[2024-08-02 13:47] VITALS: BP 176/92; PULSE 84; RESP 18; O2SAT 94
--- NOTE | 2024-08-02 13:47 | PC.NURSE ---
@ 1320 pt found delerious. Pt responsive and responds to commands but then continues to talk to herself and make no sense ( almost like ). This is a decrease from baseline. Vitals were wnl. MD Palomares at [facility] concerned delirium d/t new abx given prior to DC. Advised to monitor.
--- NOTE | 2024-08-02 14:46 | HO.PM.IMPN ---
Subjective Subjective Date of Service: 08/02/24 Interval History: seen and examined this AM was feeling well and was oriented x 3 later this afternoon after midline placement and subsequent 1st dose of invanz, became confused/delirious Physical Exam Vital Signs: Vital Signs: Last Vital Signs Temp 97.6 F 08/02/24 08:00 Pulse 84 08/02/24 13:47 Resp 18 08/02/24 13:47 BP 176/92 H 08/02/24 13:47 Pulse Ox 94 08/02/24 13:47 O2 Del Method Room Air 08/02/24 13:47 BMI result Body Mass Index 36.4 Const: Other: Initially was awake and alert x3, later became more confused with nonsensical speech appears to be delirious Lungs clear Abdomen soft S1-S2 Neuro remains nonfocal Objective Data Active Medications Acetaminophen (Acetaminophen 325 Mg Tablet) 650 mg PO Q6H PRN PRN Reason: Pain, Mild 1-3,fever,headache Last Admin: 07/31/24 05:10 Dose: 650 mg Documented By: GLENROY Albuterol Sulfate (Albuterol Sulfate 90 Mcg 8 Gm Inhaler) 2 puff INHALE Q4H PRN PRN Reason: Shortness Of Breath Or Wheezing Aspirin (Aspirin Enteric Coated 81 Mg Tablet.) 81 mg PO DAILY [facility] Last Admin: 08/02/24 08:15 Dose: 81 mg Documented By: GROVER Atorvastatin Calcium (Atorvastatin Calcium 40 Mg Tablet) 40 mg PO BEDTIME [facility] Last Admin: 08/01/24 20:08 Dose: 40 mg Documented By: CHASITY Calcium Carbonate (Calcium Carbonate 750 Mg Tab.Chew) 750 mg PO Q4H PRN PRN Reason: Heartburn Heparin Sodium (Porcine) 50 (units/ Sodium Chloride 5 ml) 0 units IVFLUSH TID [facility] Cyanocobalamin (Cyanocobalamin (Vitamin B-12) 1,000 Mcg Tablet) 1,000 mcg PO DAILY [facility] Last Admin: 08/02/24 08:15 Dose: 1,000 mcg Documented By: GROVER Dextrose (Dextrose 50 % 25 Gm/50 Ml Syringe) 25 gm IVPUSH Q15M PRN; Protocol PRN Reason: per Hypoglycemia Standing Ord. Ferrous Sulfate (Ferrous Sulfate 324 Mg Tablet.) 324 mg PO BEDTIME [facility] Last Admin: 08/01/24 20:08 Dose: 324 mg Documented By: CHASITY Fluticasone Propionate (Fluticasone Propionate Nasal 16 Gm [place]) 1 spray NOSTRIL-B BID [facility] Last Admin: 08/02/24 08:25 Dose: 1 spray Documented By: GROVER Glucose (Glucose Gel 15 Gm Gel..Gram.) 15 gm PO Q15M PRN; Protocol PRN Reason: per Hypoglycemia Standing Ord. Heparin Sodium (Porcine) (Heparin Sodium,Porcine 5,000 Unit/Ml Vial) 5,000 unit SUBCUT Q12H [facility] Last Admin: 08/02/24 04:01 Dose: 5,000 unit Documented By: CHASITY Hydroxyzine HCl (Hydroxyzine Hcl 10 Mg Tablet) 10 mg PO Q8H PRN PRN Reason: Anxiety Last Admin: 07/31/24 01:07 Dose: 10 mg Documented By: GLENROY Insulin Human Lispro (Insulin Lispro 100 Unit/Ml 3 Ml Vial) 0 unit SUBCUT QIDACHS [facility]; Protocol Last Admin: 08/02/24 12:01 Dose: 2 unit Documented By: GROVER Isosorbide Mononitrate (Isosorbide Mononitrate 30 Mg Tab.Er.24h) 30 mg PO DAILY [facility]; Protocol Last Admin: 08/02/24 08:15 Dose: 30 mg Documented By: GROVER Levalbuterol HCl (Levalbuterol Hcl 1.25 Mg/3 Ml Vial.Neb) 1.25 mg INHALE QID [facility] Last Admin: 08/02/24 11:50 Dose: Not Given Documented By: KVNG Non-Admin Reason: Patient Refused Magnesium Hydroxide (Milk Of Magnesia 30 Ml Oral.Susp) 30 ml PO DAILY PRN PRN Reason: Constipation Melatonin (Melatonin 3 Mg Tablet) 6 mg PO BEDTIME PRN PRN Reason: Insomnia Last Admin: 07/30/24 22:10 Dose: 6 mg Documented By: BHAVIN Metoprolol Tartrate (Metoprolol Tartrate 25 Mg Tablet) 25 mg PO BID [facility]; Protocol Last Admin: 08/02/24 08:15 Dose: 25 mg Documented By: GROVER Montelukast Sodium (Montelukast Sodium 10 Mg Tablet) 10 mg PO BEDTIME [facility] Last Admin: 08/01/24 20:08 Dose: 10 mg Documented By: CHASITY Multivitamins/Vitamin C (Multivitamin Tablet) 1 tab PO DAILY [facility] Last Admin: 08/02/24 08:15 Dose: 1 tab Documented By: GROVER Pt Own (Umeclidinium -Vilanterol [Anoro Ellipta] 62.5-25 Mcg /Actuation Bl 1 inhalation INHALE RDAILY [facility] Last Admin: 08/02/24 08:29 Dose: Not Given Documented By: GRACIE Non-Admin Reason: Patient Refused Nystatin (Nystatin Powder 15 Gm Bottle) 1 appl TOPICAL BID PRN; Protocol PRN Reason: Rash Last Admin: 07/31/24 17:07 Dose: 1 appl Documented By: RAHEEM Nystatin (Nystatin Oral Susp 500,000 Unit/5 Ml Oral.Susp) 100,000 unit PO TID [facility]; Protocol Last Admin: 08/02/24 08:15 Dose: 100,000 unit Documented By: GROVER Pantoprazole Sodium (Pantoprazole Sodium 20 Mg Tablet.Dr) 40 mg PO DAILY@0630 [facility] Last Admin: 08/02/24 05:45 Dose: 40 mg Documented By: CHASITY Comments: medication wont scan. Verified with second nurse- Elicia Villegas Prednisone (Prednisone 10 Mg Tablet) 10 mg PO DAILY [facility] Last Admin: 08/02/24 08:15 Dose: 10 mg Documented By: GROVER Quetiapine Fumarate (Quetiapine Fumarate 50 Mg Tablet) 50 mg PO BEDTIME [facility] Last Admin: 08/01/24 20:08 Dose: 50 mg Documented By: CHASITY Sodium Chloride (0.9 % Sodium Chloride Flush 3 Ml Syringe) 3 ml IVFLUSH QSHIFT [facility] Last Admin: 08/02/24 08:22 Dose: 3 ml Documented By: GROVER Tobramycin Sulfate (Tobramycin Sulfate 80 Mg/2 Ml Vial) 300 mg INHALE RBID [facility] Last Admin: 08/02/24 08:28 Dose: Not Given Documented By: GRACIE Non-Admin Reason: Patient Refused Labs 08/02/24 11:23 08/02/24 11:23 Labs: Laboratory Results - last 24 hr 02/08/01/24 08/02/24 16:22 19:17 07:27 MCV MCH MCHC RDW Plt Count MPV Absolute Nucleated RBC Nucleated RBC % (auto) Anion Gap Estim Creat Clear Calc Estimated GFR POC Glucose 183 H 180 H 96 Random Glucose Calcium 08/02/24 08/02/24 11:23 11:31 MCV 98.9 H MCH 32.8 MCHC 33.2 RDW 17.2 H Plt Count 135 L MPV 11.1 Absolute Nucleated RBC 0.030 H Nucleated RBC % (auto) 0.3 H Anion Gap 12 Estim Creat Clear Calc 26.4 Estimated GFR 35 POC Glucose 185 H Random Glucose 180 H Calcium 8.4 Microbiology Microbiology Results: Microbiology 07/30/24 Unknown Urine Culture - Final Urine clean catch - Clean Catch Midstream Proteus mirabilis 07/30/24 14:44 Blood Culture - Preliminary Blood - Venous No growth after 48 hours. 07/30/24 14:43 Blood Culture - Preliminary Blood - Venous No growth after 48 hours. Assessment and Plan (1) Diabetes: Status: Acute Plan 83F PMH diabetes, COPD on p.r.n. O2, chronic systolic CHF with EF of 35-40%, paroxysmal atrial fibrillation no longer on anticoagulation due to major bleed, coronary artery disease status post CABG, unspecified dementia, hyperlipidemia sent into the hospital for ESBL UTI Acute metabolic encephalopathy due to proteus mirabilis urinary tract infection Unclear error on sensitivity report Resistant to multiple antibiotics, sensitive to carbapenems. Had been receiving IV meropenem without significant issues. Received 1st dose of Invanz today and shortly thereafter became increasingly confused Unclear if this is related to IV antibiotics For now we will hold discharge and monitor We will consult ID re: antibiotics Pneumonia with concern for aspiration Continue meropenem, [employer] appreciated - continue regular solids, with thin liquids, aspiration precaustions Acute kidney injury improving slowly hold diuretics Chronic systolic CHF holding Lasix for now Monitor closely Diabetes Insulin sliding scale Paroxysmal atrial fibrillation Continue metoprolol, not on anticoagulation due to history of major bleed Coronary artery disease Continue aspirin and statin DVT prophylaxis with heparin subQ Full code reason for continued hospitalization: Metabolic encephalopathy Quality Stroke Does the patient have a stroke diagnosis?: No VTE Prior VTE?: No VTE Risk Level:: Medical - moderate - high VTE Device Contraindication: Treatment Not Indicated VTE Drug Contraindication: N/A - Med Ordered
[2024-08-02 15:48] VITALS: PULSE 81; RESP 18; TEMP 36.1; O2SAT 92
[2024-08-02 16:22] LABS: Glucose, Whole Blood 188 mg/dL (60-115)
[2024-08-02] MEDS: Heparin Sodium,Porcine Flush 50 UNITS, 0.9 % Sodium Chloride Flush 5 ML IVFLUSH ×2 (16:31→22:18)
--- NOTE | 2024-08-02 17:49 | W.PM.IDCN ---
History of Present Illness Data of Consult Service Date: 08/02/24 Requesting physician: Rafael Palomares Primary Care Provider: MD HOSEA Hernandez Reason for consult: patchy right base infiltrate She presents to ER with confusion . She has recurrent UTI and concern over this. She was started on Merem She has right base infilrate and only 10-50,000 proteus in urine. Review of Systems Review of Systems: Yes Unobtainable due to mental condition [facility] Past Medical History Medical History Aspiration pneumonia Diabetes Acute respiratory failure with hypoxia Congestive heart failure Mild bibasilar atelectasis Clostridioides difficile infection Pneumonia Atrial flutter Pyuria Atelectasis of right lung Encephalopathy chronic History of infection with vancomycin resistant Enterococcus (VRE) Heart failure Dyspnea Paroxysmal A-fib COPD (chronic obstructive pulmonary disease) A-fib Acute encephalopathy Anemia Pseudomonas respiratory infection CAD (coronary artery disease) Chronic dyspnea Acute hypokalemia Atrial fibrillation with RVR Anemia GI bleed Pulmonary nodules COPD (chronic obstructive pulmonary disease) Bronchiectasis Pseudomonal pneumonia Family History Family History Other No family history of cancer Family history: reviewed and not pertinent Surgical History Surgical History H/O umbilical hernia repair (09/18/22) History of quadruple bypass History of hip replacement History of knee replacement History of cholecystectomy Social History Social History Household Members: Family Housing: House Are you a primary women's health care nurse practitioner to a significant other at home: No Do you presently have visiting nurse or other home services: Yes (vna) Alcohol intake: never Patient Tobacco Use Status: Former Tobacco user Tobacco use type: Cigarette Advance Directives Date on File: 08/24/22 service: No Current occupational status: retired Meds Allergies Allergy/AdvReac Type Severity Reaction Status Date / Time carvedilol Allergy Shortness Verified 07/30/24 13:22 of Breath sertraline [From Zoloft] Allergy Shortness Verified 07/30/24 13:22 of Breath spironolactone Allergy Shortness Verified 07/30/24 13:22 of Breath adhesive tape AdvReac Severe skin tears Verified 07/30/24 13:22 mirtazapine AdvReac Severe psychotic Verified 07/30/24 13:22 episode Active Medications: Current Medications Acetaminophen (Acetaminophen 325 Mg Tablet) 650 mg PO Q6H PRN PRN Reason: Pain, Mild 1-3,fever,headache Last Admin: 07/31/24 05:10 Dose: 650 mg Albuterol Sulfate (Albuterol Sulfate 90 Mcg 8 Gm Inhaler) 2 puff INHALE Q4H PRN PRN Reason: Shortness Of Breath Or Wheezing Aspirin (Aspirin Enteric Coated 81 Mg Tablet.) 81 mg PO DAILY [facility] Last Admin: 08/02/24 08:15 Dose: 81 mg Atorvastatin Calcium (Atorvastatin Calcium 40 Mg Tablet) 40 mg PO BEDTIME [facility] Last Admin: 08/01/24 20:08 Dose: 40 mg Calcium Carbonate (Calcium Carbonate 750 Mg Tab.Chew) 750 mg PO Q4H PRN PRN Reason: Heartburn Heparin Sodium (Porcine) 50 (units/ Sodium Chloride 5 ml) 0 units IVFLUSH TID [facility] Last Admin: 08/02/24 16:31 Dose: 50 unit Cyanocobalamin (Cyanocobalamin (Vitamin B-12) 1,000 Mcg Tablet) 1,000 mcg PO DAILY [facility] Last Admin: 08/02/24 08:15 Dose: 1,000 mcg Dextrose (Dextrose 50 % 25 Gm/50 Ml Syringe) 25 gm IVPUSH Q15M PRN; Protocol PRN Reason: per Hypoglycemia Standing Ord. Ferrous Sulfate (Ferrous Sulfate 324 Mg Tablet.) 324 mg PO BEDTIME [facility] Last Admin: 08/01/24 20:08 Dose: 324 mg Fluticasone Propionate (Fluticasone Propionate Nasal 16 Gm [place]) 1 spray NOSTRIL-B BID [facility] Last Admin: 08/02/24 08:25 Dose: 1 spray Glucose (Glucose Gel 15 Gm Gel..Gram.) 15 gm PO Q15M PRN; Protocol PRN Reason: per Hypoglycemia Standing Ord. Heparin Sodium (Porcine) (Heparin Sodium,Porcine 5,000 Unit/Ml Vial) 5,000 unit SUBCUT Q12H [facility] Last Admin: 08/02/24 16:31 Dose: 5,000 unit Hydroxyzine HCl (Hydroxyzine Hcl 10 Mg Tablet) 10 mg PO Q8H PRN PRN Reason: Anxiety Last Admin: 07/31/24 01:07 Dose: 10 mg Insulin Human Lispro (Insulin Lispro 100 Unit/Ml 3 Ml Vial) 0 unit SUBCUT QIDACHS [facility]; Protocol Last Admin: 08/02/24 16:31 Dose: 2 unit Isosorbide Mononitrate (Isosorbide Mononitrate 30 Mg Tab.Er.24h) 30 mg PO DAILY [facility]; Protocol Last Admin: 08/02/24 08:15 Dose: 30 mg Levalbuterol HCl (Levalbuterol Hcl 1.25 Mg/3 Ml Vial.Neb) 1.25 mg INHALE QID [facility] Last Admin: 08/02/24 15:34 Dose: Not Given Magnesium Hydroxide (Milk Of Magnesia 30 Ml Oral.Susp) 30 ml PO DAILY PRN PRN Reason: Constipation Melatonin (Melatonin 3 Mg Tablet) 6 mg PO BEDTIME PRN PRN Reason: Insomnia Last Admin: 07/30/24 22:10 Dose: 6 mg Metoprolol Tartrate (Metoprolol Tartrate 25 Mg Tablet) 25 mg PO BID [facility]; Protocol Last Admin: 08/02/24 08:15 Dose: 25 mg Montelukast Sodium (Montelukast Sodium 10 Mg Tablet) 10 mg PO BEDTIME [facility] Last Admin: 08/01/24 20:08 Dose: 10 mg Multivitamins/Vitamin C (Multivitamin Tablet) 1 tab PO DAILY [facility] Last Admin: 08/02/24 08:15 Dose: 1 tab Pt Own (Umeclidinium -Vilanterol [Anoro Ellipta] 62.5-25 Mcg /Actuation Bl 1 inhalation INHALE RDAILY [facility] Last Admin: 08/02/24 08:29 Dose: Not Given Nystatin (Nystatin Powder 15 Gm Bottle) 1 appl TOPICAL BID PRN; Protocol PRN Reason: Rash Last Admin: 07/31/24 17:07 Dose: 1 appl Nystatin (Nystatin Oral Susp 500,000 Unit/5 Ml Oral.Susp) 100,000 unit PO TID [facility]; Protocol Last Admin: 08/02/24 15:02 Dose: Not Given Pantoprazole Sodium (Pantoprazole Sodium 20 Mg Tablet.Dr) 40 mg PO DAILY@0630 [facility] Last Admin: 08/02/24 05:45 Dose: 40 mg Prednisone (Prednisone 10 Mg Tablet) 10 mg PO DAILY [facility] Last Admin: 08/02/24 08:15 Dose: 10 mg Quetiapine Fumarate (Quetiapine Fumarate 50 Mg Tablet) 50 mg PO BEDTIME [facility] Last Admin: 08/01/24 20:08 Dose: 50 mg Sodium Chloride (0.9 % Sodium Chloride Flush 3 Ml Syringe) 3 ml IVFLUSH QSHIFT [facility] Last Admin: 08/02/24 16:47 Dose: Not Given Tobramycin Sulfate (Tobramycin Sulfate 80 Mg/2 Ml Vial) 300 mg INHALE RBID [facility] Last Admin: 08/02/24 08:28 Dose: Not Given Home Medications ?Medication ?Instructions ?Recorded ?Confirmed ?Last Taken ?Type fluticasone propionate 50 1 spray intranasal BID 03/22/22 07/30/24 07/30/24 09:00 History mcg/actuation nasal spray,suspension montelukast 10 mg tablet 10 mg PO BEDTIME 03/22/22 07/30/24 07/30/24 09:00 History nebulizers 03/22/22 11/09/23 07/30/24 09:00 History albuterol sulfate 90 mcg/actuation 2 puff inhalation Q4-6H PRN 11/02/22 07/30/24 07/30/24 09:00 History aerosol inhaler (Ventolin HFA) Shortness Of Breath Or Wheezing aspirin 81 mg tablet,delayed 81 mg PO DAILY 11/02/22 07/30/24 07/30/24 09:00 History release isosorbide mononitrate 30 mg 30 mg PO DAILY 11/02/22 07/30/24 07/30/24 09:00 History tablet,extended release 24 hr pantoprazole 40 mg tablet,delayed 40 mg PO DAILY@0630 11/02/22 07/31/24 07/30/24 09:00 History release acetaminophen 325 mg tablet 650 mg PO Q6H PRN Pain 01/13/23 07/30/24 07/30/24 09:00 History multivitamin 1 tab PO DAILY 01/13/23 07/30/24 07/30/24 09:00 History potassium chloride 20 mEq 20 meq PO DAILY 01/13/23 07/30/24 07/30/24 09:00 History tablet,extended release quetiapine 50 mg tablet 50 mg PO BEDTIME 01/13/23 07/30/24 07/30/24 09:00 History cyanocobalamin (vitamin B-12) 1,000 mcg PO DAILY 03/25/23 07/30/24 07/30/24 09:00 History 1,000 mcg tablet nystatin 100,000 unit/gram topical 1 appl topical BID PRN Rash 03/25/23 07/30/24 07/30/24 09:00 History powder ferrous sulfate 325 mg (65 mg 325 mg PO BEDTIME 06/25/24 07/30/24 07/30/24 09:00 History iron) tablet Lactobacillus acidophilus 500 500,000,000 cell PO DAILY 07/30/24 07/30/24 07/30/24 09:00 History million cell capsule levalbuterol HCl 1.25 mg/3 mL 1.25 mg inhalation QID 07/30/24 07/30/24 07/30/24 09:00 History solution for nebulization nystatin 100,000 unit/mL oral 100,000 unit PO TID 07/30/24 07/31/24 07/30/24 09:00 History suspension prednisone 10 mg tablet 10 mg PO DAILY 07/30/24 07/30/24 07/30/24 09:00 History tobramycin 300 mg/4 mL solution 300 mg inhalation BID 07/30/24 07/30/24 07/30/24 09:00 History for nebulization umeclidinium 62.5 mcg-vilanterol 1 inh inhalation DAILY daily 07/30/24 07/30/24 07/30/24 09:00 History 25 mcg/actuation powdr for inhalation (Anoro Ellipta) Physical Exam Vital Signs: Vital Signs: Last Vital Signs Temp 97 F 08/02/24 15:48 Pulse 81 08/02/24 15:48 Resp 18 08/02/24 15:48 BP 176/92 H 08/02/24 13:47 Pulse Ox 92 08/02/24 15:48 O2 Del Method Room Air 08/02/24 13:47 BMI result Body Mass Index 36.4 Psych: Other: encephlopathic Results Labs 08/02/24 11:23 08/02/24 11:23 Labs: Short CBC 08/02/24 Range/Units 11:23 WBC 8.8 (4.8-10.8) X10*3/uL Hgb 9.0 L (12.0-16.0) g/dl Hct 27.1 L (37.0-47.0) % Plt Count 135 L (160-400) X10*3/uL BMP 08/02/24 11:23 Sodium 137 Potassium 3.5 Chloride 101 Carbon Dioxide 28 BUN 28 H Creatinine 1.44 H Calcium 8.4 Microbiology Microbiology Results: Microbiology 07/30/24 Unknown Urine clean catch - Clean Catch Midstream Urine Culture - Final Proteus mirabilis 07/30/24 14:44 Blood - Venous Blood Culture - Preliminary No growth after 48 hours. 07/30/24 14:43 Blood - Venous Blood Culture - Preliminary No growth after 48 hours. Assessment and Plan (1) Aspiration pneumonia: Qualifiers: Aspiration pneumonia type: unspecified Laterality: unspecified laterality Lung location: unspecified part of lung Qualified Code(s): J69.0 - Pneumonitis due to inhalation of food and vomit Status: Acute (2) Urinary tract infection due to Proteus: Status: Acute Plan Cefepime since had reaction to Ertapenem with confusion worsenng and will treat lung and urine although pneumonia likely major concern.
[2024-08-02] MEDS: cefEPime HCl/D5W 2 GM/50 ML PIGGYBACK IV (18:27)
[2024-08-02 19:45] VITALS: BP 144/74; PULSE 84; RESP 18; TEMP 36.1; O2SAT 97
[2024-08-02 20:02] LABS: Glucose, Whole Blood 175 mg/dL (60-115)
[2024-08-02 22:15] VITALS: BP 140/75; PULSE 89
[2024-08-02] MEDS: QUEtiapine Fumarate 50 MG TABLET PO (22:15)
[2024-08-02] MEDS: Montelukast Sodium 10 MG TABLET PO (22:16)
[2024-08-02] MEDS: Ferrous Sulfate 324 MG TABLET.DR PO (22:16)
[2024-08-02] MEDS: Atorvastatin Calcium 40 MG TABLET PO (22:16)
[2024-08-03] VITALS (9 sets, daily range): BP systolic 118–136; BP diastolic 58–75; PULSE 63–85; RESP 12–20; TEMP 36.1–36.6; O2SAT 93–98
--- NOTE | 2024-08-03 06:17 | PC.NURSE ---
Pt seen on bed at shift change asleep and awaken spontaneously when called, oriented x2, yelling and verbally abusive to staffs, uncooperative, mostly resisting care. Offered and reapproached for AM meds but refused and yelling at staff.
[2024-08-03 07:59] LABS: Glucose, Whole Blood 96 mg/dL (60-115)
[2024-08-03] MEDS: Multivitamin TABLET 1 TAB PO (09:06)
[2024-08-03] MEDS: Metoprolol Tartrate 25 MG TABLET PO ×2 (09:06→20:29)
[2024-08-03] MEDS: Aspirin Enteric Coated 81 MG TABLET.DR PO (09:06)
[2024-08-03] MEDS: Isosorbide Mononitrate 30 MG TAB.ER.24H PO (09:06)
[2024-08-03] MEDS: predniSONE 10 MG TABLET PO (09:06)
[2024-08-03] MEDS: Cyanocobalamin (Vitamin B-12) 1,000 MCG TABLET 1000 MCG PO (09:06)
[2024-08-03] MEDS: Heparin Sodium,Porcine Flush 50 UNITS, 0.9 % Sodium Chloride Flush 5 ML IVFLUSH ×3 (09:07→20:29)
[2024-08-03] MEDS: Nystatin Oral Susp 500,000 UNIT/5 ML ORAL.SUSP 100000 UNIT PO ×3 (09:07→20:30)
[2024-08-03 11:56] LABS: Glucose, Whole Blood 182 mg/dL (60-115)
[2024-08-03] MEDS: Insulin Lispro 100 UNIT/ML 3 ML VIAL SUBCUT ×3 (12:36→20:41)
[2024-08-03] MEDS: levalbuterol HCL 1.25 MG/3 ML VIAL.NEB INHALE ×2 (15:07→20:39)
--- NOTE | 2024-08-03 15:45 | P.PNIM_ITS ---
Subjective Subjective Date of Service: 08/03/24 Interval History: Acute metabolic encephalopathy Review of Systems mental status seems somewhat improivng Physical Exam 2 Vital Signs: Vital Signs: Last Vital Signs Temp 97.4 F 08/03/24 12:44 Pulse 85 08/03/24 15:08 Resp 20 08/03/24 15:08 BP 121/58 L 08/03/24 12:44 Pulse Ox 94 08/03/24 12:44 O2 Del Method Room Air 08/03/24 12:44 BMI result Body Mass Index 36.4 awake and alert x3, mental status somewhat improving Lungs -air entry improving but diminshed right>left Abdomen soft ,nd ,nt,bs present cvs:S1-S2 ,rrr. Neuro remains nonfocal. Objective Data Active Medications Acetaminophen (Acetaminophen 325 Mg Tablet) 650 mg PO Q6H PRN PRN Reason: Pain, Mild 1-3,fever,headache Last Admin: 07/31/24 05:10 Dose: 650 mg Documented By: GLENROY Albuterol Sulfate (Albuterol Sulfate 90 Mcg 8 Gm Inhaler) 2 puff INHALE Q4H PRN PRN Reason: Shortness Of Breath Or Wheezing Aspirin (Aspirin Enteric Coated 81 Mg Tablet.) 81 mg PO DAILY [facility] Last Admin: 08/03/24 09:06 Dose: 81 mg Documented By: BUCKY Atorvastatin Calcium (Atorvastatin Calcium 40 Mg Tablet) 40 mg PO BEDTIME [facility] Last Admin: 08/02/24 22:16 Dose: 40 mg Documented By: CASTILJose Martin Calcium Carbonate (Calcium Carbonate 750 Mg Tab.Chew) 750 mg PO Q4H PRN PRN Reason: Heartburn Heparin Sodium (Porcine) 50 (units/ Sodium Chloride 5 ml) 0 units IVFLUSH TID [facility] Last Admin: 08/03/24 14:54 Dose: 50 unit Documented By: BUCKY Cyanocobalamin (Cyanocobalamin (Vitamin B-12) 1,000 Mcg Tablet) 1,000 mcg PO DAILY [facility] Last Admin: 08/03/24 09:06 Dose: 1,000 mcg Documented By: BUCKY Dextrose (Dextrose 50 % 25 Gm/50 Ml Syringe) 25 gm IVPUSH Q15M PRN; Protocol PRN Reason: per Hypoglycemia Standing Ord. Ferrous Sulfate (Ferrous Sulfate 324 Mg Tablet.) 324 mg PO BEDTIME [facility] Last Admin: 08/02/24 22:16 Dose: 324 mg Documented By: JAG Fluticasone Propionate (Fluticasone Propionate Nasal 16 Gm [place]) 1 spray NOSTRIL-B BID [facility] Last Admin: 08/03/24 09:12 Dose: Not Given Documented By: BUCKY Non-Admin Reason: Patient Refused Glucose (Glucose Gel 15 Gm Gel..Gram.) 15 gm PO Q15M PRN; Protocol PRN Reason: per Hypoglycemia Standing Ord. Heparin Sodium (Porcine) (Heparin Sodium,Porcine 5,000 Unit/Ml Vial) 5,000 unit SUBCUT Q12H [facility] Last Admin: 08/03/24 05:36 Dose: Not Given Documented By: JAG Non-Admin Reason: Patient Refused Hydroxyzine HCl (Hydroxyzine Hcl 10 Mg Tablet) 10 mg PO Q8H PRN PRN Reason: Anxiety Last Admin: 07/31/24 01:07 Dose: 10 mg Documented By: GLENROY Cefepime HCl (Maxipime) 2 gm in 50 mls @ 100 mls/hr IV Q24H [facility] Last Infusion: 08/02/24 19:10 Dose: Infused Documented By: GROVER Insulin Human Lispro (Insulin Lispro 100 Unit/Ml 3 Ml Vial) 0 unit SUBCUT QIDACHS [facility]; Protocol Last Admin: 08/03/24 12:36 Dose: 2 unit Documented By: BUCKY Isosorbide Mononitrate (Isosorbide Mononitrate 30 Mg Tab.Er.24h) 30 mg PO DAILY [facility]; Protocol Last Admin: 08/03/24 09:06 Dose: 30 mg Documented By: BUCKY Levalbuterol HCl (Levalbuterol Hcl 1.25 Mg/3 Ml Vial.Neb) 1.25 mg INHALE QID [facility] Last Admin: 08/03/24 15:07 Dose: 1.25 mg Documented By: JOSE Magnesium Hydroxide (Milk Of Magnesia 30 Ml Oral.Susp) 30 ml PO DAILY PRN PRN Reason: Constipation Melatonin (Melatonin 3 Mg Tablet) 6 mg PO BEDTIME PRN PRN Reason: Insomnia Last Admin: 07/30/24 22:10 Dose: 6 mg Documented By: BHAVIN Metoprolol Tartrate (Metoprolol Tartrate 25 Mg Tablet) 25 mg PO BID [facility]; Protocol Last Admin: 08/03/24 09:06 Dose: 25 mg Documented By: BUCKY Montelukast Sodium (Montelukast Sodium 10 Mg Tablet) 10 mg PO BEDTIME [facility] Last Admin: 08/02/24 22:16 Dose: 10 mg Documented By: JAG Multivitamins/Vitamin C (Multivitamin Tablet) 1 tab PO DAILY [facility] Last Admin: 08/03/24 09:06 Dose: 1 tab Documented By: BUCKY Pt Own (Umeclidinium -Vilanterol [Anoro Ellipta] 62.5-25 Mcg /Actuation Bl 1 inhalation INHALE RDAILY [facility] Last Admin: 08/03/24 07:46 Dose: Not Given Documented By: JOSE Non-Admin Reason: Patient Refused Nystatin (Nystatin Powder 15 Gm Bottle) 1 appl TOPICAL BID PRN; Protocol PRN Reason: Rash Last Admin: 07/31/24 17:07 Dose: 1 appl Documented By: RAHEEM Nystatin (Nystatin Oral Susp 500,000 Unit/5 Ml Oral.Susp) 100,000 unit PO TID [facility]; Protocol Last Admin: 08/03/24 14:53 Dose: 100,000 unit Documented By: BUCKY Pantoprazole Sodium (Pantoprazole Sodium 20 Mg Tablet.) 40 mg PO DAILY@0630 [facility] Last Admin: 08/03/24 06:15 Dose: Not Given Documented By: JAG Non-Admin Reason: Patient Refused Prednisone (Prednisone 10 Mg Tablet) 10 mg PO DAILY [facility] Last Admin: 08/03/24 09:06 Dose: 10 mg Documented By: BUCKY Quetiapine Fumarate (Quetiapine Fumarate 50 Mg Tablet) 50 mg PO BEDTIME [facility] Last Admin: 08/02/24 22:15 Dose: 50 mg Documented By: JAG Sodium Chloride (0.9 % Sodium Chloride Flush 3 Ml Syringe) 3 ml IVFLUSH QSHIFT [facility] Last Admin: 08/03/24 09:11 Dose: Not Given Documented By: BUCKY Non-Admin Reason: midline Tobramycin Sulfate (Tobramycin Sulfate 80 Mg/2 Ml Vial) 300 mg INHALE RBID [facility] Last Admin: 08/03/24 07:45 Dose: Not Given Documented By: JOSE Non-Admin Reason: Patient Refused Labs 08/02/24 11:23 08/02/24 11:23 Labs: Laboratory Results - last 24 hr 08/02/24 08/02/24 08/03/24 16:18 19:48 07:41 POC Glucose 188 H 175 H 96 08/03/24 11:48 POC Glucose 182 H Assessment and Plan (1) Aspiration pneumonia: Status: Acute (2) Acute UTI: Status: Acute Assessment and Plan: 83F PMH diabetes, COPD on p.r.n. O2, chronic systolic CHF with EF of 35-40%, paroxysmal atrial fibrillation no longer on anticoagulation due to major bleed, coronary artery disease status post CABG, unspecified dementia, hyperlipidemia sent into the hospital for ESBL UTI Acute metabolic encephalopathy due to proteus mirabilis urinary tract infection Unclear error on sensitivity report Resistant to multiple antibiotics, sensitive to carbapenems. Had been receiving IV meropenem without significant issues. Received 1st dose of Invanz 08/02/24 and shortly thereafter became increasingly confused switched to IV cefepime We will consult ID re: antibiotics changed due to Cefepime since had reaction to Ertapenem with confusion worsenng and will treat lung and urine although pneumonia likely major concern. Pneumonia with concern for aspiration Continue cefepime,TETRYL SCREEN OPERATOR appreciated - continue regular solids, with thin liquids, aspiration precaustions Acute kidney injury improving slowly hold diuretics Chronic systolic CHF holding Lasix for now Monitor closely Diabetes Insulin sliding scale Paroxysmal atrial fibrillation Continue metoprolol, not on anticoagulation due to history of major bleed Coronary artery disease Continue aspirin and statin DVT prophylaxis with heparin subQ Full code reason for continued hospitalization: Metabolic encephalopathy Quality Stroke Does the patient have a stroke diagnosis?: No VTE Prior VTE?: No VTE Risk Level:: Medical - moderate - high VTE Device Contraindication: Treatment Not Indicated VTE Drug Contraindication: N/A - Med Ordered
[2024-08-03 16:40] LABS: Glucose, Whole Blood 274 mg/dL (60-115)
[2024-08-03] MEDS: cefEPime HCl/D5W 2 GM/50 ML PIGGYBACK IV (17:01)
--- NOTE | 2024-08-03 17:54 | PC.NURSE ---
Pt sleeps in naps, easily arousable. Resistive to care at times. Heels reddened- foam dressings applied. Denies pain. Dr Batista in this afternoon and spoke with daughter
[2024-08-03] MEDS: Ferrous Sulfate 324 MG TABLET.DR PO (20:28)
[2024-08-03] MEDS: Montelukast Sodium 10 MG TABLET PO (20:29)
[2024-08-03] MEDS: QUEtiapine Fumarate 50 MG TABLET PO (20:29)
[2024-08-03] MEDS: Acetaminophen 325 MG TABLET 650 MG PO (20:29)
[2024-08-03] MEDS: Atorvastatin Calcium 40 MG TABLET PO (20:29)
[2024-08-03] MEDS: Nystatin Powder 15 GM BOTTLE 1 APPL TOPICAL (20:37)
[2024-08-03 20:39] LABS: Glucose, Whole Blood 196 mg/dL (60-115)
[2024-08-03] MEDS: Tobramycin Sulfate 80 MG/2 ML VIAL 300 MG INHALE (20:39)
[2024-08-04] VITALS (11 sets, daily range): BP systolic 132–175; BP diastolic 59–72; PULSE 65–107; RESP 16–19; TEMP 36–36.6; O2SAT 92–98
[2024-08-04] MEDS: Acetaminophen 325 MG TABLET 650 MG PO ×3 (03:51→21:17)
--- NOTE | 2024-08-04 07:44 | P.PNIM_ITS ---
Subjective Subjective Date of Service: 08/04/24 Interval History: pneumonia,encephalopathy Review of Systems sob and mental status seems to be improved no fevers Review of Systems: Yes all other systems are reviewed and are negative Physical Exam 2 Vital Signs: Vital Signs: Last Vital Signs Temp 97.1 F 08/04/24 03:43 Pulse 67 08/04/24 03:43 Resp 18 08/04/24 03:43 BP 136/59 L 08/04/24 03:43 Pulse Ox 98 08/04/24 03:43 O2 Del Method Room Air 08/04/24 03:43 BMI result Body Mass Index 36.4 awake and alert x3, mental status somewhat improving Lungs -air entry improving but diminshed right>left Abdomen soft ,nd ,nt,bs present cvs:S1-S2 ,rrr. Neuro remains nonfocal. Objective Data Active Medications Acetaminophen (Acetaminophen 325 Mg Tablet) 650 mg PO Q6H PRN PRN Reason: Pain, Mild 1-3,fever,headache Last Admin: 08/04/24 03:51 Dose: 650 mg Documented By: JAG Albuterol Sulfate (Albuterol Sulfate 90 Mcg 8 Gm Inhaler) 2 puff INHALE Q4H PRN PRN Reason: Shortness Of Breath Or Wheezing Aspirin (Aspirin Enteric Coated 81 Mg Tablet.) 81 mg PO DAILY [facility] Last Admin: 08/03/24 09:06 Dose: 81 mg Documented By: BUCKY Atorvastatin Calcium (Atorvastatin Calcium 40 Mg Tablet) 40 mg PO BEDTIME [facility] Last Admin: 08/03/24 20:29 Dose: 40 mg Documented By: JAG Calcium Carbonate (Calcium Carbonate 750 Mg Tab.Chew) 750 mg PO Q4H PRN PRN Reason: Heartburn Heparin Sodium (Porcine) 50 (units/ Sodium Chloride 5 ml) 0 units IVFLUSH TID [facility] Last Admin: 08/03/24 20:29 Dose: 50 unit Documented By: JAG Cyanocobalamin (Cyanocobalamin (Vitamin B-12) 1,000 Mcg Tablet) 1,000 mcg PO DAILY [facility] Last Admin: 08/03/24 09:06 Dose: 1,000 mcg Documented By: BUCKY Dextrose (Dextrose 50 % 25 Gm/50 Ml Syringe) 25 gm IVPUSH Q15M PRN; Protocol PRN Reason: per Hypoglycemia Standing Ord. Ferrous Sulfate (Ferrous Sulfate 324 Mg Tablet.Dr) 324 mg PO BEDTIME [facility] Last Admin: 08/03/24 20:28 Dose: 324 mg Documented By: JAG Fluticasone Propionate (Fluticasone Propionate Nasal 16 Gm [place]) 1 spray NOSTRIL-B BID [facility] Last Admin: 08/03/24 21:09 Dose: Not Given Documented By: JAG Non-Admin Reason: Patient Refused Glucose (Glucose Gel 15 Gm Gel..Gram.) 15 gm PO Q15M PRN; Protocol PRN Reason: per Hypoglycemia Standing Ord. Heparin Sodium (Porcine) (Heparin Sodium,Porcine 5,000 Unit/Ml Vial) 5,000 unit SUBCUT Q12H [facility] Last Admin: 08/04/24 05:15 Dose: Not Given Documented By: JAG Non-Admin Reason: Patient Refused Hydroxyzine HCl (Hydroxyzine Hcl 10 Mg Tablet) 10 mg PO Q8H PRN PRN Reason: Anxiety Last Admin: 07/31/24 01:07 Dose: 10 mg Documented By: GLENROY Cefepime HCl (Maxipime) 2 gm in 50 mls @ 100 mls/hr IV Q24H [facility] Last Infusion: 08/03/24 17:32 Dose: Infused Documented By: BUCKY Insulin Human Lispro (Insulin Lispro 100 Unit/Ml 3 Ml Vial) 0 unit SUBCUT QIDACHS [facility]; Protocol Last Admin: 08/03/24 20:41 Dose: 2 unit Documented By: JAG Isosorbide Mononitrate (Isosorbide Mononitrate 30 Mg Tab.Er.24h) 30 mg PO DAILY [facility]; Protocol Last Admin: 08/03/24 09:06 Dose: 30 mg Documented By: BUCKY Levalbuterol HCl (Levalbuterol Hcl 1.25 Mg/3 Ml Vial.Neb) 1.25 mg INHALE QID [facility] Last Admin: 08/03/24 20:39 Dose: 1.25 mg Documented By: HELLEN Magnesium Hydroxide (Milk Of Magnesia 30 Ml Oral.Susp) 30 ml PO DAILY PRN PRN Reason: Constipation Melatonin (Melatonin 3 Mg Tablet) 6 mg PO BEDTIME PRN PRN Reason: Insomnia Last Admin: 07/30/24 22:10 Dose: 6 mg Documented By: HO.MCMORRK Metoprolol Tartrate (Metoprolol Tartrate 25 Mg Tablet) 25 mg PO BID [facility]; Protocol Last Admin: 08/03/24 20:29 Dose: 25 mg Documented By: JAG Montelukast Sodium (Montelukast Sodium 10 Mg Tablet) 10 mg PO BEDTIME [facility] Last Admin: 08/03/24 20:29 Dose: 10 mg Documented By: JGA Multivitamins/Vitamin C (Multivitamin Tablet) 1 tab PO DAILY [facility] Last Admin: 08/03/24 09:06 Dose: 1 tab Documented By: BUCKY Pt Own (Umeclidinium -Vilanterol [Anoro Ellipta] 62.5-25 Mcg /Actuation Bl 1 inhalation INHALE RDAILY [facility] Last Admin: 08/03/24 07:46 Dose: Not Given Documented By: JOSE Non-Admin Reason: Patient Refused Nystatin (Nystatin Powder 15 Gm Bottle) 1 appl TOPICAL BID PRN; Protocol PRN Reason: Rash Last Admin: 08/03/24 20:37 Dose: 1 appl Documented By: JAG Nystatin (Nystatin Oral Susp 500,000 Unit/5 Ml Oral.Susp) 100,000 unit PO TID [facility]; Protocol Last Admin: 08/03/24 20:30 Dose: 100,000 unit Documented By: JAG Pantoprazole Sodium (Pantoprazole Sodium 20 Mg Tablet.Dr) 40 mg PO DAILY@0630 [facility] Last Admin: 08/04/24 05:54 Dose: Not Given Documented By: JAG Non-Admin Reason: Patient Refused Prednisone (Prednisone 10 Mg Tablet) 10 mg PO DAILY [facility] Last Admin: 08/03/24 09:06 Dose: 10 mg Documented By: BUCKY Quetiapine Fumarate (Quetiapine Fumarate 50 Mg Tablet) 50 mg PO BEDTIME [facility] Last Admin: 08/03/24 20:29 Dose: 50 mg Documented By: JAG Sodium Chloride (0.9 % Sodium Chloride Flush 3 Ml Syringe) 3 ml IVFLUSH QSHIFT [facility] Last Admin: 08/04/24 00:20 Dose: Not Given Documented By: JAG Non-Admin Reason: midline flush done Tobramycin Sulfate (Tobramycin Sulfate 80 Mg/2 Ml Vial) 300 mg INHALE RBID [facility] Last Admin: 08/03/24 20:39 Dose: 300 mg Documented By: HELLEN Labs 08/02/24 11:23 08/02/24 11:23 Labs: Laboratory Results - last 24 hr 08/03/24 08/03/24 08/03/24 07:41 11:48 16:36 POC Glucose 96 182 H 274 H 08/03/24 20:26 POC Glucose 196 H Assessment and Plan (1) Aspiration pneumonia: Status: Acute Assessment and Plan: 83F PMH diabetes, COPD on p.r.n. O2, chronic systolic CHF with EF of 35-40%, paroxysmal atrial fibrillation no longer on anticoagulation due to major bleed, coronary artery disease status post CABG, unspecified dementia, hyperlipidemia sent into the hospital for ESBL UTI Acute metabolic encephalopathy due to proteus mirabilis urinary tract infection Unclear error on sensitivity report Resistant to multiple antibiotics, sensitive to carbapenems. Had been receiving IV meropenem without significant issues. Received 1st dose of Invanz 08/02/24 and shortly thereafter became increasingly confused switched to IV cefepime We will consult ID re: antibiotics changed due to Cefepime since had reaction to Ertapenem with confusion worsenng and will treat lung and urine although pneumonia likely major concern. Pneumonia with concern for aspiration: Continue cefepime,UNDERWEAR TRIMMER appreciated - continue regular solids, with thin liquids, aspiration precaustions Acute kidney injury improving slowly hold diuretics Chronic systolic CHF holding Lasix for now Monitor closely Diabetes Insulin sliding scale Paroxysmal atrial fibrillation Continue metoprolol, not on anticoagulation due to history of major bleed Coronary artery disease Continue aspirin and statin DVT prophylaxis with heparin subQ Full code reason for continued hospitalization: Metabolic encephalopathy, pneumonia : need iv cefepime-need to be arranged /which possible tomorrow. Quality Stroke Does the patient have a stroke diagnosis?: No VTE Prior VTE?: No VTE Risk Level:: Medical - moderate - high VTE Device Contraindication: Treatment Not Indicated VTE Drug Contraindication: N/A - Med Ordered
[2024-08-04 08:10] LABS: Glucose, Whole Blood 94 mg/dL (60-115)
[2024-08-04] MEDS: Heparin Sodium,Porcine Flush 50 UNITS, 0.9 % Sodium Chloride Flush 5 ML IVFLUSH ×3 (08:20→22:59)
[2024-08-04] MEDS: predniSONE 10 MG TABLET PO (08:20)
[2024-08-04] MEDS: Isosorbide Mononitrate 30 MG TAB.ER.24H PO (08:20)
[2024-08-04] MEDS: Cyanocobalamin (Vitamin B-12) 1,000 MCG TABLET 1000 MCG PO (08:20)
[2024-08-04] MEDS: Nystatin Oral Susp 500,000 UNIT/5 ML ORAL.SUSP 100000 UNIT PO ×3 (08:20→21:18)
[2024-08-04] MEDS: Metoprolol Tartrate 25 MG TABLET PO ×2 (08:20→21:15)
[2024-08-04] MEDS: Aspirin Enteric Coated 81 MG TABLET.DR PO (08:20)
[2024-08-04] MEDS: Multivitamin TABLET 1 TAB PO (08:20)
[2024-08-04] MEDS: Fluticasone Propionate Nasal 16 GM SPRAY 1 SPRAY NOSTRIL-B (08:25)
[2024-08-04] MEDS: Tobramycin Sulfate 80 MG/2 ML VIAL 300 MG INHALE ×2 (08:53→19:57)
[2024-08-04] MEDS: levalbuterol HCL 1.25 MG/3 ML VIAL.NEB INHALE ×4 (08:53→19:57)
[2024-08-04 11:31] LABS: Glucose, Whole Blood 146 mg/dL (60-115)
[2024-08-04 16:09] LABS: Glucose, Whole Blood 230 mg/dL (60-115)
[2024-08-04] MEDS: Insulin Lispro 100 UNIT/ML 3 ML VIAL SUBCUT ×2 (16:17→21:19)
[2024-08-04] MEDS: cefEPime HCl/D5W 2 GM/50 ML PIGGYBACK IV (17:08)
--- NOTE | 2024-08-04 17:48 | PC.NURSE ---
Pt staff assisted and supervised with all meals. Ecouraged small bites and sips of liquid. Cooperative with ADLs and repositioning.
--- NOTE | 2024-08-04 21:00 | PC.NURSE ---
FURS SALESPERSON came up to RN and stated that pt and her daughter needed to speak with RN about her care and that RN would need to complete all of FURS SALESPERSON's duties. When RN entered room, pt's daughter explained that FURS SALESPERSON was too rough with placing BP cuff on pts arm and that FURS SALESPERSON never went to get sherbert. RN explained that sherbert was not sugar free and so probably not within the diet. The RN apologized about the BP cuff and stated it was not intentional. The daughter then stated she did not want the FURS SALESPERSON to take care of her mother because they felt uncomfortable with a Black FURS SALESPERSON. The RN stated she had no control over the assignment and offered the railroad supervisor of engines come speak with them.
[2024-08-04 21:01] LABS: Glucose, Whole Blood 205 mg/dL (60-115)
--- NOTE | 2024-08-04 21:15 | PC.NURSE ---
ROD HANGER assignment was changed to accommodate pt and staff
[2024-08-04] MEDS: Melatonin 3 MG TABLET 6 MG PO (21:17)
[2024-08-04] MEDS: QUEtiapine Fumarate 50 MG TABLET PO (21:18)
[2024-08-04] MEDS: Atorvastatin Calcium 40 MG TABLET PO (21:18)
[2024-08-04] MEDS: Ferrous Sulfate 324 MG TABLET.DR PO (21:18)
[2024-08-04] MEDS: Montelukast Sodium 10 MG TABLET PO (21:18)
--- NOTE | 2024-08-04 22:43 | PC.NURSE ---
Pt is refusing to be repositioned. RN gave pt more pillows to assist with head position. No void yet. Awaiting bladder scan
--- NOTE | 2024-08-05 02:00 | PC.NURSE ---
Pt yelling for help. RN went into room. Pt states she needs to be cleaned up. Pt is dry. No void yet. Last bladder scan 71 at 08/04 @ 23:30
--- NOTE | 2024-08-05 04:30 | PC.NURSE ---
pt states her back hurts and wants to be in wheelchair. RN offered Tylenol and a hospital recliner. Pt became verbally aggressive and screaming at RN. RN stated she will not be treated that way and is only trying to help. RN suggested repositioning. Pt is unable to be redirectable. Pt states she hopes RN loses her job and makes physical threats to RN. Will reassess when pt calms down
--- NOTE | 2024-08-05 06:30 | PC.NURSE ---
No void yet. Per OPERATION SUPERVISOR, pt refusing bladder scan and to be checked if incontinent. MD made aware
[2024-08-05 07:04] VITALS: BP 132/91; PULSE 90; RESP 17; TEMP 36.7; O2SAT 95
[2024-08-05 07:10] LABS: Glucose, Whole Blood 135 mg/dL (60-115)
[2024-08-05] MEDS: Nystatin Oral Susp 500,000 UNIT/5 ML ORAL.SUSP 100000 UNIT PO ×2 (09:15→15:07)
[2024-08-05] MEDS: Pantoprazole Sodium 20 MG TABLET.DR 40 MG PO (09:17)
[2024-08-05] MEDS: Cyanocobalamin (Vitamin B-12) 1,000 MCG TABLET 1000 MCG PO (09:19)
[2024-08-05] MEDS: Aspirin Enteric Coated 81 MG TABLET.DR PO (09:19)
[2024-08-05] MEDS: predniSONE 10 MG TABLET PO (09:19)
[2024-08-05] MEDS: Isosorbide Mononitrate 30 MG TAB.ER.24H PO (09:19)
[2024-08-05] MEDS: Multivitamin TABLET 1 TAB PO (09:19)
[2024-08-05] MEDS: Metoprolol Tartrate 25 MG TABLET PO (09:19)
[2024-08-05] MEDS: 0.9 % Sodium Chloride Flush 3 ML SYRINGE IVFLUSH (09:26)
[2024-08-05] MEDS: Heparin Sodium,Porcine Flush 50 UNITS, 0.9 % Sodium Chloride Flush 5 ML IVFLUSH ×2 (09:27→16:32)
--- NOTE | 2024-08-05 09:51 | MHC.CLN ---
F/U DIET=DIABETIC 1800 KCALS-APPROPRIATE. INTAKE USUALLY 50-100%. DISLIKES ENSURE SUPPLEMENT/DOES NOT WANT. SKIN WITH DTI BILATERAL BUTTOCKS. FOLLOW FOR PO INTAKE AND SKIN INTEGRITY.
--- NOTE | 2024-08-05 11:30 | MHC.SL.SWA ---
Speech Pathologist Impression: Mild to moderate oral and moderate pharyngeal dysphagia Risk of Aspiration Due to: History of Pneumonia History of Dysphagia Dysphasia Diet Status: Continue on REGULAR diet with THIN liquids, pills whole with puree. Liquid Consistency and Strategies for Safe Swallow: Liquid Intake Recommendation: Thin Liquid Intake Strategies: No Straws Double Swallow Solid Food Consistency: Dietary Recommendations: Regular Additional Modifications to Solid Foods: Avoid difficult to chew solids. Double swallow as needed, small bites and sips, slow rate, alternated liquids and solids, no straws. Oral Medication Intake: Whole with Puree Please contact the pharmacy regarding appropriate crushable or liquid drug formulations that are available whenever modified delivery is recommended. Compensatory Strategies and Precautions to be Taken for Safe Swallow: Sitting Upright (90 deg) Double Swallow Small Bites and Sips Alternate Liquids/Solids Rate of Ingestion Change Supervision While Eating and Drinking for Safe Swallow: Total Supervision (1:1) Foods to Avoid: Difficult to chew solids, dry, crunchy textures. Swallowing Recommended Treatments: Compens. Strategy Educat. Recommendation for Speech: Comment: Recc family contact PCP for referral to BANKING PIN ADJUSTER if dysphaiga increases/difficulties recur after d/c Frequency/Duration: Date Range for Service Req: Timeline to reassess: Cloth Presser Clinican/Clinical Fellow: No Supervisory Statement: I have reviewed and agree with the student/clinical fellow's documentation: N/A Speech Language Pathologist: Yesy Anthony M.S., [facility] [employer] [facility]
[2024-08-05 11:34] LABS: Glucose, Whole Blood 209 mg/dL (60-115)
[2024-08-05 11:55] LABS: Anion Gap 13 (12-20); Blood Urea Nitrogen 27 mg/dL (9-16); Calcium 8.2 mg/dL (8.4-10.2); Carbon Dioxide 23 mmol/L (22-29); Chloride 108 mmol/L (96-108); Estimated Glomerular Filt Rate 39; Glucose Random 222 mg/dL (60-115); Potassium 3.6 mmol/L (3.3-5.1); Sodium 140 mmol/L (135-145)
[2024-08-05] MEDS: Insulin Lispro 100 UNIT/ML 3 ML VIAL SUBCUT (12:02)
--- NOTE | 2024-08-05 13:44 | P.DS_ITS ---
DS: Providers Provider Date of Service: 08/05/24 Date of admission: 07/30/24 17:00 Date of discharge: 08/05/24 Primary care physician: Monica Arciniega MD Consults: 07/31/24 12:11 Consult to Wound Care Routine Reason for consultation: bilat buttocks and right abd folds 08/02/24 14:46 Consult to Infectious Diseases Routine Consulting Provider: [facility] [place] [facility] Reason for consultation: ESBL UTI as outpatient, repeat showing Proteus, became confused with Invanz Attending physician on discharge: Damaso Batista Discharging clinician: Damaso Batista DS: Diagnosis Discharge Diagnosis (1) Aspiration pneumonia: Status: Acute DS: Summary Hospital Course Hospital Course: HPI From admission H&P 83F PMH diabetes, COPD on p.r.n. O2, chronic systolic CHF with EF of 35-40%, paroxysmal atrial fibrillation no longer on anticoagulation due to major bleed, coronary artery disease status post CABG, unspecified dementia, hyperlipidemia recently discharged 07/04/2024 for COPD and sepsis due to pneumonia. Was at home and daughter noted patient was acting more confused similar to previous UTIs. Obtained a UA with urine culture and was called to come to the ED due to ESBL on culture, report states ESBL Proteus but also mentioned sensitivities to penicillins and cephalosporins. In ED noted to have acute kidney injury with creatinine of 1.7. Chest x-ray with subtle opacity in the right base possible pneumonia. Hospital Course: Patient was started on IV meropenem for resistant urinary tract infection as we ll as pneumonia, likely due to aspiration. She was seen by speech therapy who recommended on modified diet and to have aspiration precautions. Patient's urine culture returned positive for Proteus which was resistant to multiple antibiotics and sensitive to carbapenems-seen by infectious disease : Cefepime since had reaction to Ertapenem with confusion worsenng and will treat lung and urine although pneumonia likely major concern- She will be discharged home on 11 days of IV cefepime , end date of 08/16/2024. Of note, the patient had acute kidney injury during the hospitalization which has slowly improved towards her baseline with gentle IV hydration. Her potassium and Lasix were held in the hospital and will be held for several days upon discharge. She can have repeat chemistries early next week with resumption of Lasix and potassium should her renal function be close to baseline. Patient is seen and examined on the day of discharge, she is stable for discharge. Final discharge diagnosis 1. Acute metabolic encephalopathy 2. Proteus urinary tract infection, ESBL 3. Pneumonia, suspected aspiration 4. Acute kidney injury plan: complete 11 days of IV cefepime: end date will be 08/16/24 -moniter cbc ,cmp q 1weekly while on antibiotics . also consider outpatient follow up with [facility] as per pcp. Above management discussed with the patient and her her family in detail length, time spent 40 minute. Time Attestation Total time managing care of this patient today: 40 mintues. Discharge Coordination Time (in mins): 40min Quality: Safe Use of Opioids Does Pt have an Active Cancer Diagnosis on the Problem List?: No Quality: Stroke Does the patient have a stroke diagnosis?: No Physical Exam Vital Signs: Vital Signs: Last Vital Signs Temp 98.1 F 08/05/24 07:04 Pulse 90 08/05/24 07:04 Resp 17 08/05/24 07:04 BP 132/91 H 08/05/24 07:04 Pulse Ox 95 08/05/24 07:04 O2 Del Method Room Air 08/05/24 07:04 O2 Flow Rate 96 08/04/24 20:00 BMI result Body Mass Index 36.4 awake and alert x3, mental status at baseline Lungs -air entry improving but diminshed right>left Abdomen soft ,nd ,nt,bs present cvs:S1-S2 ,rrr. Neuro remains nonfocal. DS: Data Data Completed and Pending Completed studies during hospitalization [Text1]: Procedures Excision of Descending Colon, Via Natural or Artificial Opening Endoscopic, Diagnostic (01/14/23) Excision of Rectum, Via Natural or Artificial Opening Endoscopic, Diagnostic (01/14/23) Excision of Sigmoid Colon, Via Natural or Artificial Opening Endoscopic, Diagnostic (01/14/23) Excision of Transverse Colon, Via Natural or Artificial Opening Endoscopic, Diagnostic (01/14/23) Insertion of Endotracheal Airway into Trachea, Via Natural or Artificial Opening (06/25/24) Introduction of Vasopressor into Peripheral Vein, Percutaneous Approach (06/25/24) Respiratory Ventilation, 24-96 Consecutive Hours (06/25/24) Supplement Abdominal Wall with Synthetic Substitute, Open Approach (09/17/22) Transfusion of Nonautologous Red Blood Cells into Peripheral Vein, Percutaneous Approach (04/06/22) Labs on day of discharge: Laboratory Results - last 24 hr 08/04/24 08/04/24 08/05/24 16:04 20:48 07:05 Sodium Potassium Chloride Carbon Dioxide Anion Gap BUN Creatinine Estim Creat Clear Calc Estimated GFR POC Glucose 230 H 205 H 135 H Random Glucose Calcium 08/05/24 08/05/24 11:31 11:35 Sodium 140 Potassium 3.6 Chloride 108 Carbon Dioxide 23 Anion Gap 13 BUN 27 H Creatinine 1.31 Estim Creat Clear Calc 29.0 Estimated GFR 39 POC Glucose 209 H Random Glucose 222 H Calcium 8.2 L Imaging Chest x-ray: Radiologist's impression: ITS Impressions Chest X-Ray 07/30/24 13:35 IMPRESSION: 1. Subtle opacity right base, possible pneumonia. 2. Mild cardiac enlargement with surgical changes status post CABG. Electronically signed by: Dawood Elmore MD 07/30/2024 02:10 PM [facility] [place] Discharge Plan Discharge Anticipated Discharge Date/Time: 08/02/24 11:25 Patient Disposition: Home Health Service Discharge Diagnosis: UTI, pneumonia, CANDIDO Referrals: Monica Arciniega MD [Primary Care Provider] - 1 Week Discharge Medications: New cefepime in dextrose 5 % 2 gram/50 mL Piggyback 2 g IV Q24H Qty: 11 0RF Continued isosorbide mononitrate 30 mg tablet extended release 24 hr 30 mg PO DAILY aspirin 81 mg tablet,delayed release (DR/EC) 81 mg PO DAILY pantoprazole 40 mg tablet,delayed release (DR/EC) 40 mg PO DAILY@0630 albuterol sulfate [Ventolin HFA] 90 mcg/actuation HFA aerosol inhaler 2 puff INHALATION Q4-6H PRN (Reason: Shortness Of Breath Or Wheezing) cyanocobalamin (vitamin B-12) 1,000 mcg tablet 1,000 mcg PO DAILY nystatin 100,000 unit/gram powder 1 appl topical BID PRN (Reason: Rash) Protocol: Apply to: Apply to: Abdominal Fold Rx Instructions: groin area metoprolol tartrate 25 mg Tablet 25 mg PO BID Qty: 60 0RF Protocol: Hold for SBP/HR < HOLD for SBP < : 90 HOLD for HR < : 60 tobramycin 300 mg/4 mL solution for nebulization 300 mg INHALATION BID Anoro Ellipta 62.5-25 mcg/actuation blister with device 1 inh INHALATION DAILY Lactobacillus acidophilus 500 million cell capsule 500,000,000 cell PO DAILY nystatin 100,000 unit/mL suspension 100,000 unit PO TID Rx Instructions: Swish and spit for thrush prednisone 10 mg tablet 10 mg PO DAILY Taper: Prednisone 40 mg daily for 3 Days and 0 Hour 30 mg daily for 3 Days and 0 Hour 20 mg daily for 3 Days and 0 Hour 10 mg daily for 3 Days and 0 Hour Rx Instructions: see taper instructions levalbuterol HCl 1.25 mg/3 mL solution for nebulization 1.25 mg inhalation QID atorvastatin [Lipitor] 40 mg tablet 40 mg PO BEDTIME Qty: 30 0RF quetiapine 50 mg tablet 50 mg PO BEDTIME multivitamin Tablet 1 tab PO DAILY acetaminophen 325 mg Tablet 650 mg PO Q6H PRN (Reason: Pain) ferrous sulfate 325 mg (65 mg iron) tablet 325 mg PO BEDTIME Triple Paste 12.8 % Ointment 1 appl topical QID 30 Days Qty: 227 0RF Protocol: Apply to: Apply to: rash fluticasone propionate 50 mcg/actuation spray,suspension 1 spray intranasal BID Rx Instructions: 1 spray into each nostril montelukast 10 mg tablet 10 mg PO BEDTIME Held potassium chloride 20 mEq tablet extended release 20 meq PO DAILY Hold Instructions: Resume on 08/05/24. furosemide 40 mg Tablet 40 mg PO DAILY Qty: 90 0RF Hold Instructions: Resume on 08/05/24. Protocol: Hold for SBP< HOLD for SBP < : 90 Discontinued doxycycline monohydrate 100 mg tablet 100 mg PO BID 28 Days Qty: 56 2RF No Action (DME) Aerochamber MV Spacer See Rx Instructions .ROUTE .MEDSUPPLY Qty: 1 0RF Rx Instructions: As directed (DME) FreeStyle Lite Strips Strip Qty: 100 0RF Rx Instructions: Test four times a day or as directed. (DME) blood-glucose meter [FreeStyle Lite Meter] Kit Qty: 1 0RF Rx Instructions: As Directed (DME) pen needle, diabetic 32 gauge x 1/4 needle Qty: 100 0RF Rx Instructions: Use four times a day or as directed. (DME) lancets [FreeStyle Lancets] 28 gauge misc Qty: 100 0RF Rx Instructions: Test four times a day or as directed. (DME) nebulizers Kit See Rx Instructions .Route Rx Instructions: As directed Discharge Orders: Discharge Order (Routine); Ordered 08/02/24 Ordered By: Rafael Palomares Diet: Advance to usual diet Activity on Discharge: As tolerated Stand Alone Forms: Patient Portal Discharge page Print Language: Pashto Other Ambulatory Orders: Basic Metabolic Panel (Routine) Timeframe: [id number] Facility: [facility] - Location: Laboratory Ordered By: Rafael Palomares Care Plan Goals: Take 11 days of cefepime IV, last day 08/16/2024 Hold your Lasix and potassium until next week, repeat your chemistry to check for kidney function and restart if improved Health Concerns: see discharge summary Plan of Treatment: see discharge summary Assessment: see discharge summary Discharge Date/Time: 08/05/24 16:35
[2024-08-05 15:00] VITALS: BP 123/60; PULSE 94; RESP 16; TEMP 36.6; O2SAT 97
--- NOTE | 2024-08-05 15:33 | MHC.CM.PN ---
Per MD patient medically cleared for dc home w/ resumption of [facility] and [facility] for IV cefepime. [facility] completed teach w/ daughter. Will dc home via [facility] @ [phone]. RN aware. IMM delivered.
[2024-08-05] MEDS: cefEPime HCl/D5W 2 GM/50 ML PIGGYBACK IV (16:00)
[2024-08-05] MEDS: levalbuterol HCL 1.25 MG/3 ML VIAL.NEB INHALE (16:03)
[2024-08-05 16:09] VITALS: PULSE 94; RESP 20; O2SAT 97
--- NOTE | 2024-08-05 16:18 | PC.NURSE ---
This RN was asked to assess the Power Midline as the inpatient RN's were unable to pull back blood but flushes with ease and IVABT infuses. The patients SRIKANTH is soft nontender to touch pre-existing bruising is noted but patient denies pain and the catheter flushes with ease despite attempts to draw back blood. Midline will be used for 10 days ABT, not necessary for blood specimens.Discussed with daughter and advised to contact IR RN's with any issues. Daughter agreed with this plan.Dr Batista is aware
== END 2024-08-05 16:35 | disposition home health service (06) | DRG 689 ==
LOC: HO.ED 16:09 → HO.EDOVER 17:04 → HO.S3 07-31 10:39
PROVIDERS: Family Medicine; Physician Assistant; Admitting Provider Internal Medicine; Emergency Provider Emergency Medicine Emergency Medical Services; PCP Internal Medicine; Visit Provider Internal Medicine
DX: N39.0 Urinary tract infection, site not specified (principal); G93.41 Metabolic encephalopathy; J69.0 Pneumonitis due to inhalation of food and vomit; I50.22 Chronic systolic (congestive) heart failure; N17.9 Acute kidney failure, unspecified; Z16.24 Resistance to multiple antibiotics; I25.10 Atherosclerotic heart disease of native coronary artery without angina pectoris; F03.90 Unspecified dementia, unspecified severity, without behavioral disturbance, psychotic disturbance, mood disturbance, and anxiety; B96.4 Proteus (mirabilis) (morganii) as the cause of diseases classified elsewhere; J44.9 Chronic obstructive pulmonary disease, unspecified; E11.9 Type 2 diabetes mellitus without complications; I48.0 Paroxysmal atrial fibrillation; Z20.822 Contact with and (suspected) exposure to COVID-19; Z87.440 Personal history of urinary (tract) infections; Z95.1 Presence of aortocoronary bypass graft; Z87.891 Personal history of nicotine dependence; Z79.51 Long term (current) use of inhaled steroids; Z79.82 Long term (current) use of aspirin; Z79.899 Other long term (current) drug therapy
CPT/HCPCS: 0241U; 36410; 36415; 71045; 80048; 80076; 81001; 82140; 82947; 83605; 83690; 83735; 83880; 84484; 85025; 85027; 85610; 87040; 87086; 87088; 87186; 92526; 92610; 93005; 94640; 99285; C1751; J0692; J1335; J1642; J1644; J2185; J2543; J2919; J3260

== ENCOUNTER → 2024-07-30 13:25 | Outpatient (BNV) | payer OTHER, SELFPAY | PROVIDERS: Emergency Provider Emergency Medicine Emergency Medical Services; PCP Internal Medicine; Visit Provider Radiology Diagnostic Radiology | DX: R05.9 Cough, unspecified (principal) | CPT/HCPCS: 71045 ==

== ENCOUNTER → 2024-07-30 13:25 | Outpatient (BNV) | payer OTHER, SELFPAY | PROVIDERS: Admitting Provider Internal Medicine; Emergency Provider Emergency Medicine Emergency Medical Services; PCP Internal Medicine; Visit Provider Internal Medicine | DX: I47.19 Other supraventricular tachycardia (principal) | CPT/HCPCS: 93010 ==

== ENCOUNTER → 2024-07-30 17:00 | Outpatient (BNV) | payer OTHER, SELFPAY | PROVIDERS: Admitting Provider Internal Medicine; Emergency Provider Emergency Medicine Emergency Medical Services; PCP Internal Medicine; Visit Provider Internal Medicine | DX: J69.0 Pneumonitis due to inhalation of food and vomit (principal); N39.0 Urinary tract infection, site not specified; B96.4 Proteus (mirabilis) (morganii) as the cause of diseases classified elsewhere | CPT/HCPCS: 99222 ==

== ENCOUNTER → 2024-07-30 17:00 | Outpatient (BNV) | payer OTHER, SELFPAY | PROVIDERS: Admitting Provider Internal Medicine; Emergency Provider Emergency Medicine Emergency Medical Services; PCP Internal Medicine; Visit Provider Internal Medicine | DX: J69.0 Pneumonitis due to inhalation of food and vomit (principal) | CPT/HCPCS: 99223; 99231; 99232; 99239 ==

== ENCOUNTER 2024-10-01 14:42 | Outpatient (AMB) | payer OTHER, SELFPAY ==
[2024-10-01 15:01] VITALS: BP 90/48; PULSE 76; O2SAT 95
--- NOTE | 2024-10-01 15:01 | A.OFFVIS_ITS ---
Vital Signs 10/01/24 15:01 Height 4 ft 11 in BMI Reason not done Patient refused/unable BP 90/48 L Blood Pressure Location Lt brachial Position Sitting Pulse 76 Pulse Source Pulse Oximeter Pulse Oximetry (%) 95 Oxygen Delivery Method Room Air Intake Visit Reasons: copd Client Professional Required: No Accompanied by: Daughter Allergies carvedilol Allergy (Verified 10/01/24 15:04) Shortness of Breath sertraline [From Zoloft] Allergy (Verified 10/01/24 15:04) Shortness of Breath spironolactone Allergy (Verified 10/01/24 15:04) Shortness of Breath adhesive tape Adverse Reaction (Severe, Verified 10/01/24 15:04) skin tears ertapenem Adverse Reaction (Severe, Verified 10/01/24 15:04) Confusion mirtazapine Adverse Reaction (Severe, Verified 10/01/24 15:04) psychotic episode HPI Comments Details: The patient is an 83 year-old woman with known history of COPD along with chronic bronchitis due apparently has been in usual state health until for the last several months where her respiratory status has dramatically worsen. The patient has had numerous admissions in a short period of time. The patient states that she started developing worsening cough usually congested in nature. She has a hard time expectorating. Suddenly she developed significant respiratory distress with the family notices that she is decompensated very quickly. At that point EMS was called the. Usually the patient is found to be hypoxic and she is brought to the hospital. She has been admitted to normal now about 4 times in a [facility] about 2 times. Her sputum was positive for Pseudomonas aeruginosa and she was treated with ceftazidime. Ultimately she is treated and then subsequently is able to recover partially in that she is sent home. Usually the cycle restarts again. She has been having hard time since she does the hospital recently. They try sending another sputum culture but it was contaminated. In the office she was very congested. We were able to get a sputum sample and also very tenacious greenish in color and also smelling of Pseudomonas consistent with likely pseudomonal lower respiratory infections and pneumonia. The patient did received Xopenex with hypertonic saline with good response. She had been on DuoNeb but I am concerned that is drying up the mucus even more. Therefore will switch over to the Xopenex instead. I did review her CT scan of the chest done at [facility]. She has numerous pulmonary nodules in addition to thickened airways and some bronchiectatic looking airways. Therefore, the patient does have chronic airway disease now worsened by the fact that she is colonized with Pseudomonas. She has had multiple admissions to the hospital and therefore failing IV and oral antibiotics. The only option right now will be to start her inhaled tobramycin. she is already performing chest physical therapy with a flutter valve. 04/27/2023 the patient is here for a pulmonary follow-up visit. Since we last spoke she went back to the hospital. She was diagnosed with pneumonia was again placed on antibiotics. Again a course complicated with C diff colitis. 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 She was treated with p.o. vancomycin again. I explained to the patient and to the daughter that she needs to minimize antibiotic use because it will reasonable result in a very complicated abdominal process. The patient likely has a component of microaspiration likely aspiration pneumonias specially since pneumonias or mainly on the right side. She does have an increased amount of dementia and she is requiring additional care from the family. She is also falling asleep more regularly during the daytime. She is going to start her day program to see if this allows her to be more stimulated and more weight. In the meantime she is off the inhaled tobramycin. In view of her all her complications will go ahead and hold off the tobramycin for 4-6 weeks to see if there is improvement in her GI issues. She will continue with the current respiratory therapy With the Xopenex therapy. And will follow-up in 6 months. If the patient has any worsening symptoms she is to call the office for an earlier assessment. we also spoke briefly about goals of care. Talked about her code status. The patient currently is a full code we did talk about the conc erns about her significant comorbidities and being too aggressive with her care. Therefore, I did recommend the patient talk to her daughter further about code status. 09/14/2023 the patient has a telehealth visit today. Overall she has been doing well. The weather spot so therefore she stayed home. She has not required any prednisone or antibiotics since we last spoke which is very reassuring. This is the longest stent of good health she has had. She is also participating in the day program where she is exposed to a lot of people and she has actually been doing very well with that as well. She continues her respiratory therapy with Xopenex. The patient has not required any other respiratory therapy. She continues use oxygen with good effect. She does complaint of some chest conge stion and mucus. Explained to her that she does have chronic bronchitis and she will always make mucus. Although she needs to be monitoring closely the collar the consistency in the frequency of the mucus. If those were to worsen she will call nor for us to treat her for potential infection. 12/13/2023 the patient is here for a pulmonary follow-up visit. She was in her usual state health until the last week when she started developing worsening cough chest congestion. For another breath. Hard time expectorating. Moderate severity. Denied any fevers or chills. The mucus was colored. She does have history of Pseudomonas. At this start her on levofloxacin and also prednisone. Today she has already feeling a little better. Although the family is concerned that she has coming to the end of the treatment still congested and coughing although not as bad. The patient still has some rhonchi and wheezing on examination. I am concerned about the use of quinolones because of the pos sibility of tendonitis and also the risk of C diff colitis. At the same time the patient does have chronic airway disease with significant bronchiectasis. Therefore, I will give another 10 days but a low dose levofloxacin and a lower dose prednisone. He should continue with her CPT therapy. Continue with the nebulized therapy. She has been using the oxygen with good effect. Otherwise the patient is feeling a little bit better. Her last chest x-ray personally by me from 10/30/2023 with some chronic changes decreased lung volumes and some atelectasis at the bases. Further recommendation based on forthcoming data. The patient will follow-up in 3-4 months. 02/06/2024 the patient is here for sick visit. She has had worsening cough chest congestion. Moderate severity. The mucus is very tenacious. Sometimes she has a hard time clearing her secretions. She did respond well to the levofloxacin. The patient has had history of Pseudomonas in the sputum. Likely this is related to Pseudomonas at this time. Although, she does also have a history of C diff colitis. Therefore, the patient understands that using quinolones to treat her underlying respiratory infection can lead to C diff colitis. Will go ahead and pretreat her with Flagyl to minimize risk. The patient ultimately has significant bronchiectasis. She will benefit from inhaled tobramycin to be provided in order to treat the Pseudomonas infection. Therefore, will go ahead and send a sputum culture at this time. she will start the antibiotics continue with her chest physical therapy. She should be using her Acapella valve and also her nebulized therapy. Right now she does not having significant wheezing therefore will hold off on any prednisone. The patient has any worsening symptoms she will call for further evaluation. 03/18/2024 the patient is here for a pulmonary follow-up visit. Overall she is doing better since we last saw her. She did complete the 28 days of the inhaled tobramycin. She does have a hard time with it. Gives her bad taste and she does not like to take it. She is considering not continuing the therapy. She is going to have now 20 days off the medicine which I find helpful for her to take a break. But I explained to the patient did Pseudomonas will return in her respiratory symptoms will return subsequently after that and it will continue to worsen. Therefore, we do not have a lot of alternative options in the inhaled SHY although does have some adverse symptoms it is effective treating the Pseudomonas. In the meantime she is going to continue using respiratory therapy and chest PT to clear mucus. On exam she does have some wheezing. Hold off on any prednisone at this time. If her symptoms worsen she will call. She is also monitoring closely her weight. She has gained weight but although she is eating more. Does not appear to be volume overloaded at this time. She will continue with current dose of diuretics. Will follow-up in 3-4 months. The patient has any worsening symptoms prior to that she will call for an earlier assessment. 06/24/2024 the patient is here for sick visit. She chest congestion. She was evaluated by loss month. She was. The patient is still having significant chest congestion. She started. She does complaint of abdominal pain when taking it. Primarily because she has coughing a lot. Seems that she does expectorate better when she has in the inhaled SHY. On exam she does have some rhonchi wheezing and diminished breath sounds. Will go ahead and stop her SHY for now to her belly pain gets better. 07/18/2024 the patient is here for a pulmonary follow-up visit. Since we last spoke she had worsening symptoms and ended up going to the ER. There she was admitted to the hospital. She had an episode of agitation and respiratory distress and the patient was intubated for short time and transferred to the ICU. She was quickly liberated from the ventilator. And she was given IV antibiotics. The patient was diuresed and discharged. Although she continues have a hard time with her breathing. She has significant chest congestion. She has also become significantly weak after the prolonged hospitalizations and all the steroids and paralytics. She can not tolerate the inhaled tobramycin well. Irritate her throat. She also had a modified barium swallow demonstrating some laryngeal penetration but no overt aspiration. She did have a CT scan of the chest which I personally reviewed demonstrating some airspace disease in pneumonitis in the right hemithorax suggesting indeed of micro aspirations and aspirations resulting in pneumonitis. She does have a dysphagia diet which she should continue. For now though will start her on doxycycline to see if this provides some relief specially if there is any evidence of stenotrophomonas. In addition to that will go ahead and place her on small dose of prednisone 10 mg to see if this provides her relief and stability of disease. In addition to that the patient will continue the inhaled tobramycin but she will actually mixed in with the albuterol to see if she can tolerated better in that fashion. Will follow-up in 1-2 months. If she has any issues prior to that she will call for an earlier assessment. 10/01/2024 the patient is here for a pulmonary follow-up visit. The patient has had a very eventful month. Initially was hospitalized here for IV antibiotics. Unfortunately she was sent home in her PICC line started leaking she called to see about getting affixed and was recommended that she go to [facility] because we did not have Radiology available. When she went to [facility] she was found to be in AFib and she was admitted to the hospital. While in the hospital she aspirated and ended up getting intubated briefly. She was able to be liberated from the ventilator placed on BiPAP. The patient is clinically now better. She went home and she has been very tired and weak. She initially she could not walk but now she is taking about 10-15 steps. She is using her respiratory medications with good effect. She is actually feeling a lot better. Will continue with the current respiratory regimen at this time. I did review her last imaging study at [facility] demonstrating bilateral pleural effusions. She continues on the Lasix and her volume status has been better. [facility] Medical History Aspiration pneumonia Diabetes Acute respiratory failure with hypoxia Congestive heart failure Mild bibasilar atelectasis Clostridioides difficile infection Pneumonia Atrial flutter Pyuria Atelectasis of right lung Encephalopathy chronic History of infection with vancomycin resistant Enterococcus (VRE) Heart failure Dyspnea Paroxysmal A-fib COPD (chronic obstructive pulmonary disease) A-fib Acute encephalopathy Anemia Pseudomonas respiratory infection CAD (coronary artery disease) Chronic dyspnea Acute hypokalemia Atrial fibrillation with RVR Anemia GI bleed Pulmonary nodules COPD (chronic obstructive pulmonary disease) Bronchiectasis Pseudomonal pneumonia Surgical History H/O umbilical hernia repair (09/18/22) History of quadruple bypass History of hip replacement History of knee replacement History of cholecystectomy Family History Other No family history of cancer Social History Household Members: Family Housing: House Are you a primary career services coordinator to a significant other at home: No Do you presently have visiting nurse or other home services: Yes (vna) Alcohol intake: never Patient Tobacco Use Status: Former Tobacco user Tobacco use type: Cigarette Advance Directives Date on File: 08/24/22 service: No Current occupational status: retired Review of Systems Const Denies chills, Denies fatigue, Denies fever(s), Denies weight gain and Denies weight loss Eyes Reports change in vision ENT Denies dizziness Card Denies chest pain, Denies leg edema, Denies lightheadedness, Denies palpitations, Denies dyspnea on exertion, Denies orthopnea and Denies other Resp Denies cough, Denies dyspnea on exertion and Reports wheezing GI Denies hematochezia and Denies change in stool character Musc Denies abnormal gait, Denies muscle weakness, Denies numbness, Denies radiating pain into limb and Denies tingling Skin/Breast Reports rash and Reports unusual bruising Neuro Denies abnormal gait, Denies dizziness, Denies numbness and Denies tingling Psych Reports panic attacks Endo Denies fatigue and Denies palpitations Samir/Lymph Reports easy bruising and Denies lymphadenopathy Aller/Immun Reports wheezing Physical Exam Vital Signs: Last Vital Signs Pulse 76 10/01/24 15:01 BP 90/48 L 10/01/24 15:01 Pulse Ox 95 10/01/24 15:01 Oxygen Delivery Method Room Air 10/01/24 15:01 Last Vital Signs Temp 97.2 F 07/03/24 07:27 Pulse 88 07/03/24 07:27 Resp 20 07/03/24 07:27 BP 151/71 H 07/03/24 07:27 Pulse Ox 100 07/03/24 07:27 O2 Del Method Room Air 07/03/24 07:27 O2 Flow Rate 1 06/29/24 09:56 FiO2 24 06/28/24 12:00 BMI result Body Mass Index 36.5 Alert oriented x3, much more comfortable appearing, no more accessory muscles used, still sounds tight with some expiratory wheezes Const General: alert and awake Orientation/consciousness: patient oriented x3 Neck Neck: Yes supple Chest Chest palpation & inspection: normal inspection of the chest Resp Other: no wheeze Effort & Inspection: normal respiratory effort, no respiratory distress and no use of accessory muscles Auscultation: no rhonchi and diminished lung sounds Cardio Heart sounds: S1 normal heart sound present and S2 normal heart sound present GI Palpation (GI): Soft to palpation Skin General skin exam: purpura Neuro General: patient oriented x3 Extrem General: No clubbing, No cyanosis and Yes edema Immunizations pneumoc 20-martha conj-dip cr(PF) 0.5 mL IM syringe Performing Provider: Carlin Aldana MD Performing Location[place] [facility] Administered by: Alexandria Garza LPN on 10/01/24 15:37 Dose Route Admin Location Dispensed Lot Number Expiration Date [facility] Creative Services Intern 0.5 mL IM Left Deltoid 0.5 mL [id number] 11/09/25 [employer] VIS Given Date VIS Provided VIS Publication Date 10/01/24 Single Vaccine 22 Eligibility Eligibility Date Funding Source Not [facility] Eligible 10/01/24 Private Assessment & Plan Assessment & Plan (1) Aspiration pneumonia: Code(s): J69.0 - Pneumonitis due to inhalation of food and vomit Category: Medical Qualifiers: Aspiration pneumonia type: unspecified Laterality: unspecified laterality Lung location: unspecified part of lung Qualified Code(s): J69.0 - Pneumonitis due to inhalation of food and vomit (2) COPD (chronic obstructive pulmonary disease): Code(s): J44.9 - Chronic obstructive pulmonary disease, unspecified Category: Medical Qualifiers: COPD type: COPD with acute lower respiratory infection Qualified Code(s): J44.0 - Chronic obstructive pulmonary disease with (acute) lower respiratory infection (3) Pseudomonal pneumonia: Code(s): J15.1 - Pneumonia due to Pseudomonas Category: Medical Qualifiers: Laterality: unspecified laterality Lung location: unspecified part of lung Qualified Code(s): J15.1 - Pneumonia due to Pseudomonas (4) Pulmonary nodules: Code(s): R91.8 - Other nonspecific abnormal finding of lung field Category: Medical (5) Dyspnea: Code(s): R06.00 - Dyspnea, unspecified Category: Medical Qualifiers: Dyspnea type: shortness of breath Qualified Code(s): R06.02 - Shortness of breath (6) Bronchiectasis: Code(s): J47.9 - Bronchiectasis, uncomplicated Category: Medical Qualifiers: Bronchiectasis type: with acute lower respiratory infection Qualified Code(s): J47.0 - Bronchiectasis with acute lower respiratory infection (7) Congestive heart failure: Code(s): I50.9 - Heart failure, unspecified Category: Medical Qualifiers: Heart failure chronicity: chronic Heart failure type: unspecified Qualified Code(s): I50.9 - Heart failure, unspecified (8) Abdominal pain: Code(s): R10.9 - Unspecified abdominal pain Category: Medical Qualifiers: Abdominal location: generalized Qualified Code(s): R10.84 - Generalized abdominal pain Plan continue inhaled Shy 28 days on, 28 days . Will mix in with xopenex holding Levaquin continue Anoro Xopenex BID Ipratropium nebs BID hypertonic saline 3% for CPT Continue acapella valve Oxygen 2L with activity and with sleep Overnight oximetry on RA F/U 2-3 months Orders: Orders Pneumococcal 20 Immunization Today Z23 - Encounter for immunization Overnight Pulse Oximetry Today J69.0 - Pneumonitis due to inhalation of food and vomit Coding Level of Care Code Est Pt Level 5 (19201) Complex EM visit Add On G2211 Diagnoses Aspiration pneumonia, unspecified aspiration pneumonia type, unspecified laterality, unspecified part of lung J69.0 Aspiration pneumonia type: unspecified Laterality: unspecified laterality Lung location: unspecified part of lung Chronic obstructive pulmonary disease with acute lower respiratory infection J44.0 COPD type: COPD with acute lower respiratory infection Pneumonia due to Pseudomonas species, unspecified laterality, unspecified part of lung J15.1 Laterality: unspecified laterality Lung location: unspecified part of lung Pulmonary nodules R91.8 Shortness of breath R06.02 Dyspnea type: shortness of breath Bronchiectasis with acute lower respiratory infection J47.0 Bronchiectasis type: with acute lower respiratory infection Chronic congestive heart failure, unspecified heart failure type I50.9 Heart failure chronicity: chronic Heart failure type: unspecified Generalized abdominal pain R10.84 Abdominal location: generalized Time Spent (min) 45
--- OUTSIDE RECORDS SUMMARY | 2024-10-01 17:33 | XMS_ITS | Clinical Summary ---
Author Organization [facility] Facility Address [address] [address] Care Team Providers Care Preschool Assistant Teacher Name Role Phone Unavailable Primary Care Provider [...] Orientation Not on file Plan of Treatment Upcoming Encounters Date Type Department Care Team (Late st Contact Info) Description 11/06/2024 10:30 AM EDT Office Visit [facility] [address] [phone] Barbi Russell ARNP [address] [phone] Health Maintenance Due Date Last Done Comments Influenza Vaccine (Season Ended) 2025 04/26/2017 Pneumococcal Vaccine: 50+ Years Completed 04/26/2017, 12/23/2014 Hepatitis B Vaccine Aged Out No longe r eligible based on patient's age to complete this topic Insurance [facility] ([id number]) [place] [address] ([id number])
--- OUTSIDE RECORDS SUMMARY | 2024-10-01 17:33 | XMS_ITS | Data Portability ---
Author Organization MD Amad[facility], [facility] - [facility] Address [address] [place] [phone] Care Team Providers Care Kiln Car Repairer Name Role Phone HIM CCA OTHER GIANNI GU Primary Care Provider Assessment Encounter Date Assessment Date Assessment LastModified [...] Assessment and Plan as documented by the Traffic Control Technician. Patient /daughter given the opportunity to ask questions. Advised if develops CP/severe SOB/turning blue/uncontrolle d n/v/d or black/bloody emesis or stool/ AMS/ syncope/ hi fever to call 911- daughter verbalized understanding of instructions to the medic [email or web address] Not available 12/12/2022 13:03:17 Plan of Treatment Reminders Order Date Submit Date Provider Last Modified By Organization Details Last Modified Time Details Appointments None recorded. Lab culture, urine 2024 025 KWADWO [facility] (Centralized Electronic Ordering - All Locations), Patient Can Go To The Location Of Their Choice, [id number] 20:05:53 urinalysis, dipstick 2024 025 [facility], [address] [place] [address], [id number] 5 21:38:07 rapid flu (A+B) 2024 025 [facility], [address] [place] [address], [id number] 5 21:32:52 rapid SARS CoV 2 Ag, QL IA, respiratory specimen 2024 025 [facility], [address] [place] [address], [phone] 5 21:32:55 culture, urine 2022 023 KWADWO [facility] (Centralized Electronic Ordering - All Locations), Patient Can Go To The Location Of Their Choice, [id number] 3 07:20:43 urinalysis, dipstick 2022 023 [email or web address] 0 [facility], [address] [place] [address], [phone] 3 13:03:23 glucose, fingerstick , blood 2022 023 [email or web address] 0 [facility], [address] [place] [address], [id number] 3 13:03:23 Referral None recorded. Procedures None recorded. Surgeries None recorded. Imaging None recorded. Medication Orders cefpodoxime 200 mg tablet 2022 023 [email or web address] Not available 12:57:14 cefpodoxime 200 mg tablet 2022 023 [email or web address] 0 Not available 12:57:07 Patient TargetsNo targets recorded. Patient InstructionsNo instructions recorded. Reason for Referral None Reported. Results Created Date Observation Date Name Description Value Unit Range Abnormal Flag Note LastModifiedBy Organization Detail LastModifiedTime 12/13/1912/12/2022 URINE CULTU RE specimen description URINE Not Available [facility] ([facility] Order[facility] - All Locations) Patient Can Go To The Location Of Their Choice, [id number] 12/14/2022 07:20:43 12/13/1912/12/2022 URINE CULTU RE special requests NONE Not Available [facility] ([facility] Ordering - All Locations) Patient Can Go To The Location Of Their Choice, [id number] 12/14/2022 07:20:43 12/13/19 23 12/14/2022 URINE CULTU RE culture Mixed bacter ial rowdy, indica tive of urogen ital contam inatio n. Not Available [facility] (Centralized Electronic Ordering - All Locations) Patient Can Go To The Location Of Their Choice, [id number] 12/14/2022 07:20:43 12/13/19 23 12/14/2022 URINE CULTU RE report status FINAL 2022 Not Available [facility] (Centralized Electronic Ordering - All Locations) Patient Can Go To The Location Of Their Choice, [id number] 12/14/2022 07:20:43 12/13/19 23 12/12/2022 urina lysis , dipst ick Leukocytes 500 Not Available Main - [facility] [address] [place] [address], [address] [place] [address] 12/12/2022 12:57:33 12/13/19 23 12/12/2022 urina lysis , dipst ick Nitrite positi ve Not Available Main - [facility] [address], [address] [place] [address] 12/12/2022 12:57:33 12/13/19 23 12/12/2022 urina lysis , dipst ick Urobilinogen 0.2 Not Available Main - [facility] [address] [place] [address], [address] [place] [address] 12/12/2022 12:57:33 12/13/19 23 12/12/2022 urina lysis , dipst ick Protein 30 Not Available Main - [facility] [address], [address] [place] [address] 12/12/2022 12:57:33 12/13/19 23 12/12/2022 urina lysis , dipst ick pH 7.5 Not Available Main - [facility] [address], [address] [place] [address] 12/12/2022 12:57:33 12/13/19 23 12/12/2022 urina lysis , dipst ick Blood + Not Available Main - [facility] [address], [address] [place] [address] 12/12/2022 12:57:33 12/13/19 23 12/12/2022 urina lysis , dipst ick Specific [place] 1.005 Not Available Main - [facility] [address] [place] [address], [phone] 12/12/2022 12:57:33 12/13/19 23 12/12/2022 urina lysis , dipst ick Ketone neg Not Available Main - [facility] [address], [phone] 12/12/2022 12:57:33 12/13/19 23 12/12/2022 urina lysis , dipst ick Bilirubin neg Not Available Main - I [facility] [address] [place] [address], [phone] 12/12/2022 12:57:33 12/13/19 23 12/12/2022 urina lysis , dipst ick Glucose neg Not Available Main - [facility] [address], [address] [place] [address] 12/12/2022 12:57:33 12/13/19 23 12/12/2022 urina lysis , dipst ick Appearance cloudy Not Available Main - [facility] [address] [place] [address], [phone] 12/12/2022 12:57:33 12/13/19 23 12/12/2022 urina lysis , dipst ick Color yellow Not Available Main - [facility] [address], [address] 12/12/2022 12:57:33 12/13/19 23 12/12/2022 gluco se, finge rstic k, blood Blood Glucose: mg/dl 190 Not Available Main - [facility] [address] [place] [address], [phone] 12/12/2022 12:57:38 07/26/1907/29/2024 URINE CULTU RE,CO MPREH ENSIV E urine culture,comp rehensive Final report abnormal Not Available [facility] ([facility]) [address], [place], [address], 07/29/2024 10:05:35 07/26/1907/29/2024 URINE CULTU RE,CO MPREH ENSIV E result 1 Proteu s mirabi lis abnormal Susce ptibi lity profi le is consi stent with a proba ble ESBL. Multi -Drug Resis tant Organ ism Great er than 100,0 00 colon y formi ng units per mL Not Available [facility] ([facility]) [address] [facility], [place], [address], 07/29/2024 10:05:35 07/26/19 25 07/29/2024 URINE CULTU [...] thopr im/Mitchell lfa R Not Available [facility] ([facility]) [address] [facility], [place], [address], 07/29/2024 10:05:35 07/26/19 25 07/26/2024 rapid flu (A+B) Flu negati ve Not Available Main - [facility] ed [address] [place] [address], [phone] 07/26/2024 20:55:44 07/26/19 25 07/26/2024 rapid SARS CoV 2 Ag, QL IA, respi rator y speci men rapid SARS CoV 2 Ag, QL IA, respiratory specimen negati ve Not Available Main - [facility] ed [address] [place] [address], [phone] 07/26/2024 21:32:34 Result Notes None recorded. Medical Equipment None Reported. Allergies Allergen ID Allergen Name Allergen Category Reaction Reaction Severity Criticality Documentation Date Start Date Code Code System Note Provider Name and Address Organization Details Recorded Time 71580 mirtazapi ne medicatio n Not available Not available Not available 07/26/2024 40462 RxNorm Not Available [facility] - production 12:24:54 28696 sertralin e medicatio n Not available Not available Not available 07/26/2024 97183 [facility] 12:24:54 2695 cetirizin e medicatio n Not available Not available Not available 12/12/2022 60564 RxNorm Alexandria Shea MD [address] [facility],[address], [place], [address] , [facility] [employer] 3 12:51:29 2696 spironola ctone medicatio n Not available Not available Not available 12/12/2022 9997 RxNorm Not Available [facility] - production 5 12:24:54 2697 carvedilo l medicatio n Not available Not available Not available 12/12/2022 RxNorm Not Available [facility] 5 12:24:54 Medications Name Sig [...] [degF] 92 /min 99 % 99 % 21290.5 52 g 14 /min 138 mm[Hg] 67 mm[Hg] 138 mm[Hg] 67 mm[Hg] Not Available [employer] 3 13:17:06 Date Recorded Body weight Provider Name an d Address Organization Details Last Updated DateTime 12/12/2022 34775.6 g Jose Martin Shelton [address] [place] [address],[address], [place], [phone], [place] - [employer] 12/12/2022 13:03:46 Date Recorded Respiratory rate Heart rate Body temperature Oxygen saturation Oxygen saturation in Arterial blood by Pulse oximetry Systolic blood pressure Diastolic blood pressure Provider Name and Address Organization Details Last Updated DateTime 5 18 /min 62 /min 98.4 [degF] 97 % 97 % 144 mm[Hg] 88 mm[Hg] Not Available [facility] 5 20:33:01 Date Recorded Body temperature Heart rate Oxygen saturation Oxygen saturation in Arterial blood by Pulse oximetry Respiratory rate Systolic blood pressure Diastolic blood pressure Provider Name and Address Organization Details Last Updated DateTime 2 97.8 [degF] 97 /min 97 % 97 % 18 /min 114 mm[Hg] 76 mm[Hg] Not Available [facility] 2 13:50:19 Social History None recorded. Functional [...] Note 4248 Jacobo Disla MD Main - [facility] [address] [place] [phone] 03/08/2022 13:34:54 03/11/2022 16:53:14 Wound of skin 833031050 T14.8XXA 38812 Alexandria Shea MD Main - [facility] [address] [place] [phone] 12/12/2022 12:48:46 12/13/2022 10:47:07 Urinary symptoms 125166807 R39.9 recurrent uti. Pat has tolerated cefpodoxim e well in the past per daughter- advised doxycyclin e likely chosen at last d/c due to concomitan t pneumonia- would like to avoid quinolones in elderly patient on eliquis if possible-a dvised will check culture and if sensitivit ies indicate another abx required will call in different RX when results return in a few days [id number] CARLOS LOUIE MD Main - [facility] [address] [place] [phone] 07/26/2024 20:17:44 07/27/2024 09:55:15 Urinary symptoms 516664260 R39.9 Evaluation in the field was performed by my boatswain's mate colleague, as noted above, I provided real-time [...] on bilaterall yNo lower extremity edema per boatswain's mate examUA: Positive for leukocytes , ketones, and [...] Salcido Member ID Guarantor Name 03/08/2022 1 [facility] - DOS PRIOR TO 2022 - DUAL ELIGIBLE (MEDICARE REPLACEMENT/ADV ANTAGE - HMO) Jenifer Mercado [id number] Jenifer Mercado 12/12/2022 1 [facility] - DOS ON OR AFTER 2022 - DUAL ELIGIBLE - [facility] OPTIONS AND ONE CARE (MEDICARE REPLACEMENT/ADV ANTAGE - HMO) Jenifer Mercado [id number] Jenifer Mercado 07/26/2024 1 [facility] - DOS ON OR AFTER 2022 - DUAL ELIGIBLE - [facility] OPTIONS AND ONE CARE (MEDICARE REPLACEMENT/ADV ANTAGE - HMO) eJnifer Harperanaroberta [id number] Jenifer Harperanaroberta Notes Date Note Type Note Provider Name [...] calling to place an [facility] referral. Mom with paper thin skin, and on blood thinners. She was getting up to go to the bathroom, she turned her walker and hit her left ankle. Site is about the size of quarter, area has been bleeding off/on since 3am. Daughter has put gauze, triple abx ointment and wrap. Would like area assessed. Jacobo Disla MD [address] [place] [address],[address], [place], [phone], [employer] 03/08/2022 13:59:24 12/12/2022 text/html CRC Nursing Assessment: [...] .................. .................. .................. .................. .................. .................. ...... Traffic Control Technician Note From Gavin Snow: Pt's daughter suspects [...] ............... Disposition: Fulfilled Alexandria Shea MD [address] [facility],[address], [place], [address], [employer] [facility] 12/12/2022 13:35:09 07/26/2024 text/html CRC Nurse Triage Notes (Marley Dougherty - RN): Reason For Request: Possible uti, and increased confusion. Wheesing in lungs, Chief Complaints: Urinary catheter/nephrosto my tube problems PMH: Hypertension, Coronary Artery Disease, COPD/Asthma, Congestive Heart Failure, Arrhythmias (e.g., Atrial Fibrillation), Diabetes Mellitus Type 2 PMH Reviewed at 07/26/2024:24 Allergies Reviewed at 07/26/2024:24 Comments: Visiting nurse reports patient with increased [...] s/s and seek emergency treatment if needed. Traffic Control Technician Organization Information for Oumar Gus Menard [employer] Name: [employer]? Address: [address] [place] [id number], Pull Tab Dealer: Aaron Cole MD [facility] No.: [id number] Traffic Control Technician POC Test Results from Gus Oseguera Urine Dipstick (20:34:22) Urine leukocytes: +++ JOSE Urine nitrites: - NIT Urine urobilinogen: - URO Urine protein: - PRO Urine pH: 5 pH Urine blood: + BLO Urine specific gravity: 1.000 SG Urine ketones: + KET Urine bilirubin: - NOELLE Urine glucose: - GLU .................. .................. .................. .................. .................. .................. .................. ............... Traffic Control Technician Note From Gus Oseguera: Dispatched to the [...] nitrates. Culture obtained for lab. [facility] [place]. Rapid covid/flu (-). Red flags discussed. ALL times are approx. .................. .................. .................. .................. .................. .................. .................. ............... [facility] Consulted: Carlos Louie .................. .................. .................. .................. .................. .................. .................. ............... Disposition: Fulfilled CARLOS LOUIE MD [address] [facility],[address], [place], [address], [employer] [facility] [employer] [facility] 07/26/2024 21:33:38 OBGyn Episode No OBEpisode recorded.
--- OUTSIDE RECORDS SUMMARY | 2024-10-01 17:34 | XMS_ITS | Data Portability ---
Author Organization [place] - [facility] Address [address] [place] [address] Care Team Providers Care Custom Harvester Name Role Phone GIANNI GU Primary Care Provider VARINDER TARYN OTHER TC OROSCO OTHER Assessment Encounter Date Assessment Date Assessment LastModified by Organization Details LastModified Time 02/09/2020 02/09/2020 Overview/History :Carlos gregory is an 79-year-old female that as a new patient [facility]. Her daughter had contacted [facility] because she has been not acting [...] after care of this patient according to [facility]'s infection prevention protocols. [email or web address] Not available 02/09/2020 15:15:56 07/31/2020 07/31/2020 Time On Scene with Patient: 01:13:47 [email or web address] Not available 07/31/2020 18:23:18 08/10/2020 08/10/2020 Time On Scene with Patient: 00:23:20 [email or web address] Not available 08/10/2020 16:06:51 Plan of Treatment Reminders Order Date Submit Date Provider Last Modified By Organization Details Last Modified Time Details Appointments None recorded. Lab urinalysi s, dipstick 2019 020 [email or web address] 1 [facility], [address] [place] [address], [address], 0 12:20:25 culture, urine 2019 020 [email or web address] [facility] (Centralized Electronic Ordering - All Locations), Patient Can Go To The Location Of Their Choice, [id number] 0 21:12:23 Referral None recorded. Procedures None recorded. Surgeries None recorded. Imaging None recorded. Medication Orders mupirocin 2 % topical ointment 2020 021 [email or web address] Not available 18:13:34 doxycycli ne hyclate 100 mg capsule 2020 021 [email or web address] Not available 15:57:35 doxycycli ne hyclate 100 mg tablet 2020 021 [email or web address] Not available 15:57:41 doxycycli ne hyclate 100 mg capsule 2020 021 [email or web address] Not available 12:14:36 Keflex 500 mg capsule 2019 020 [email or web address] Not available 17:12:21 cephalexi n 500 mg capsule 2019 020 [email or web address] Not available 17:12:21 Patient TargetsNo targets recorded. Patient Instructions Encounter Date Encounter Id Patient Instructions Last Modified By Organization Details Last Modified Time 02/09/2020 [id number] WE CAME TO SEE Y OU TODAY [...] condition between 8am-10pm, please call [facility] at [phone] to help navigate your care. [email or web address] Not available 02/09/2020 12:22:20 02/16/2020 [id number] Care Coordinated Call Patient's phone number is [...] out to her pcp and a specialist. [email or web address] Not available 02/16/2020 16:41:55 07/31/2020 [id number] Suture Care Discharge Instructions Keep the stitches [...] out you may use Mederma, Scar Away (pmaq-wqq-fmbpwqr medicines) or similar products over the area [...] in your condition between 8am-10pm, please call [facility] at [phone] to help navigate your care. Suture Care [...] out you may use Mederma, Scar Away (gjbt-dyi-xfevfng medicines) or similar products over the area [...] in your condition between 8am-10pm, please call [facility] at [phone] to help navigate your care. Thank you for your visit with [facility] today. You were seen today for treatment [...] in your condition between 8am-10pm, please call [facility] at [phone] to help navigate your care. Not available 08/02/2020 09:38:37 08/10/2020 [id number] Thank you for yo ur visit with [facility] today. You were seen today for treatment [...] condition between 8am-10pm, please call [facility] at [phone] to help navigate your care. Not available 08/10/2020 15:58:22 Reason for Referral None Reported. Results Created Date Observation Date Name Description Value Unit Range Abnormal Flag Note LastModifiedBy Organization Detail LastModifiedTime 02/09/20 20 02/09/2020 cultu re, urine special requests NONE Not Available [facility] (Centralized Electronic Ordering - All Locations) Patient Can Go To The Location Of Their Choice, [id number] 02/10/2020 21:12:23 02/09/2002/10/2020 cultu re, urine specimen description URINE Not Available [facility] (Centralized Electronic Ordering - All Locations) Patient Can Go To The Location Of Their Choice, [id number] 02/10/2020 21:12:23 02/09/2002/10/2020 cultu re, urine culture Mixed bacter ial rowdy, indica tive of urogen ital contam inatio n. Not Available [facility] (Centralized Electronic Ordering - All Locations) Patient Can Go To The Location Of Their Choice, [id number] 02/10/2020 21:12:23 02/09/20 20 02/10/2020 cultu re, urine report status FINAL 2019 Not Available [facility] (Centralized Electronic Ordering - All Locations) Patient Can Go To The Location Of Their Choice, [id number] 02/10/2020 21:12:23 02/09/2002/09/2020 urina lysis , dipst ick Appearance clear Not Available [facility] [address], [place], [address], 02/09/2020 12:13:32 02/09/20 20 02/09/2020 urina lysis , dipst ick Color yellow Not Available [facility] - Home [address], [place], [address], 02/09/2020 12:13:32 02/09/20 20 02/09/2020 urina lysis , dipst ick Glucose negati ve Not Available Spr - Home [address], [place], [address], 02/09/2020 12:13:32 02/09/20 20 02/09/2020 urina lysis , dipst ick Bilirubin negati ve Not Available [facility] [address] [place], [address], 02/09/2020 12:13:32 02/09/20 20 02/09/2020 urina lysis , dipst ick Ketones NEG Not Available [facility] [address] [place], [address], 02/09/2020 12:13:32 02/09/20 20 02/09/2020 urina lysis , dipst ick Sp. Erwin 1.015 Not Available [facility] [address] [place], [address], 02/09/2020 12:13:32 02/09/20 20 02/09/2020 urina lysis , dipst ick Blood NEG Not Available [facility] [address] [place], [address], 02/09/2020 12:13:32 02/09/20 20 02/09/2020 urina lysis , dipst ick pH 5 Not Available [facility] [address] [place], [address], 02/09/2020 12:13:32 02/09/20 20 02/09/2020 urina lysis , dipst ick Protein negati ve Not Available [facility] [address] [place], [address], 02/09/2020 12:13:32 02/09/20 20 02/09/2020 urina lysis , dipst ick Urobilirubin negati ve Not Available [facility] [address] [place], [address], 02/09/2020 12:13:32 02/09/20 20 02/09/2020 urina lysis , dipst ick Nitrites + Not Available [facility] [address], [place], [address], 02/09/2020 12:13:32 02/09/20 20 02/09/2020 urina lysis , dipst ick Leukocytes + Not Available [facility] [address], [place], [address], 02/09/2020 12:13:32 Result Notes None recorded. Procedures Surgical History Date Name Laterality Status Provider Name and Address Organization Details Recorded Time 021 Laceration, General - DH completed Asiya Brennan, [facility] [address] [place], [address], [place] [facility] 08/02/2020 09:43:43 020 Medication Review completed KEVIN CRUZ NP [address] [place], [address], [place] [facility] 02/09/2020 15:12:08 coronary artery bypass grafts x 4 completed Asiya Brennan NP [address] [place], [address], [place] [facility] 07/31/2020 17:19:15 open reduction of fracture of femur completed Asiya Brennan NP [address] [place], [address], [place] [facility] 07/31/2020 17:19:29 cholecystectomy completed Asiya Brennan NP [address] [place], [address], [place] [facility] 07/31/2020 17:19:39 section completed Asiya Brennan NP [address] [place], [address], [place] [facility] 07/31/2020 17:19:47 bilateral extraction of cataracts completed Asiya Brennan NP [address] [place], [address], [place] [facility] 07/31/2020 17:19:54 Oral surgery procedure completed Asiya Brennan NP [address] [place], [address], [place] [facility] 07/31/2020 17:20:01 Imaging Results [...] /min 152 mm[Hg] 60 mm[Hg] Not Available [facility] 0 11:57:30 Date Recorded Heart rate Oxygen saturation Oxygen saturation in Arterial blood by Pulse oximetry Respiratory rate Body temperature Systolic blood pressure Diastolic blood pressure Provider Name and Address Organization Details Last Updated DateTime 1 70 /min 95 % 95 % 18 /min 98.5 [degF] 130 mm[Hg] 58 mm[Hg] Not Available [facility] 1 17:14:50 Date Recorded Oxygen saturation Oxygen saturation in Arterial blood by Pulse oximetry Heart rate Body temperature Respiratory rate Systolic blood pressure Diastolic blood pressure Provider Name and Address Organization Details Last Updated DateTime 1 94 % 94 % 80 /min 98.4 [degF] 20 /min 130 mm[Hg] 60 mm[Hg] Not Available [facility] 1 15:50:30 Social History Question Answer Notes LastModified by Organizat ion Details LastModified Time Tobacco Smoking Status Former Smoker KEVIN CRUZ, [facility] [address], [place], [address], [place] [facility] 02/09/2020 11:58:49 Do You Have An Advance Directive? No [email or web address] Information not available 02/09/2020 What Is Your Code Status? Full Code [email or web address] Information not available 02/09/2020 Within The Past 12 Months, Have You Worried That Your Food Would Run Out Before You Got Money To Buy More. No [email or web address] Information not available 02/09/2020 Fall Risk: Do You Feel Unsteady When Standing Or Walking? No [email or web address] Information not available 02/09/2020 We Know That How And When People Interact With Friends And Family Can Be Very Different From Person To Person. How Often Do You Have The Opportunity To See Or Talk To People That You Care About And Feel Close To? (Ex: Talking To Friends On The Phone Or Visiting Friends Or Family Or Going To [employer] Or Club Meetings) 1 Or 2 Times Per Week [email or web address] Information not available 02/09/2020 We Know From Many Of Our Patients That Covering All Of Their Costs Can Be Difficult At Times. This Can Cause Stress And Impact Health. In The Past Year, Have You Been Unable To Get Any Of The Following When It Was Really Needed? No [email or web address] Information not available 02/09/2020 What Is Your Housing Situation Today? I Have Housing [email or web address] Information not available 02/09/2020 Would You Like Help Connecting To Resources? None [email or web address] Information not available 02/09/2020 How Many Years Have You Smoked Tobacco? 70 [email or web address] Information not available 02/09/2020 Sex: Unknown Functional Status None recorded. Mental Status None recorded. Family History Relationship Description Onset Age of this Age Resolved Age Notes LastModified by Organization Details LastModified Time Father Coronary arterioscler osis [email or web address] Not available 12:00:26 Medical History Condition Response [...] SNOMED-CT Code Diagnosis ICD10 Code Diagnosis Note [id number] KEVIN CRUZ NP [facility] [address] [place] [address] 02/09/2020 11:53:18 02/10/2020 18:30:19 Chronic urinary tract infection 131145994 N39.0 Mild depression [id number] 3 F32.0 [id number] Carina Valles RN [facility] [address] [place] [address] 02/16/2020 16:36:56 02/16/2020 16:42:10 [id number] Asiya Brennan NP [facility] [address] [place] [address] 07/31/2020 17:09:37 08/04/2020 10:31:48 Laceration of lower leg [id number] S81.812A Overview/H istory: Patient is an alert 79 year old female who presents with a laceration sustained while ambulating with a walker to her bathroom. The laceration is to her left lower leg medially. Patient is not on a blood thinner, however she is taking Aspirin 81 mg daily. Exam: Afebrile 98.5, HRR 70, S1, S2. LSCTA bilaterall y. Trachea midline, no JVD distention . Abdomen SNT, + bowel sounds x 4 quadrants. Patient does have an egg size umbilical hernia that is reducible. No CVA tenderness , no suprapubic tenderness . Patient has a 3 cm laceration to lower left leg medially; the wound is 8 cm above the ankle. The wound does not extend beyond the SQ layer of tissue. There is a moderate amount of bleeding when compressio n bandage is removed to visualize the wound. DDx considered , but not limited to:Lacerat ionPressur e ulcer unlikelyAb scess not likely, no evidence of infection Work up/Results : Exam. Patient laceration irrigated with wound cleanser and prepped with povidine/i odine which was allowed to dry. Utilizing sterile technique, the wound was anesthetiz ed with approximat jerome 5 cc of 1% Lidocaine/ 27 G needle circumfere ntially. The wound was sutured with 4 polypropyl luis fernando. 5 sutures were placed. Bacitracin applied to wound followed by non-stick dressing/A BD and kerlix wrap. Plan/Discu ssion:Prov ided suture instructio ns to patient. Keep wound clean and dry x 24 hours. Then wash gently and pat dry, abx ointment 2-3 x a day. Dressing changes 2 x daily. Doxycyclin e 100 mg on site then follow with Doxycyclin e 100 mg 2 x daily x 7 days. Follow up by in 10-14 days for suture removal. Discussed ED precaution s and s/s to follow up with acute level of care. Patient and daughter are able to repeat all discussed. No questions at this time. Proper Personal Protective Equipment (PPE), including {{gloves, eye protection , masks, and gowns, shoe covers jazmin ves, eye protection and masks glov es, eye protection gloves, eye protection , N95 mask, gown, and shoe covers * surgical mask with face-shiel d, gloves, gown and shoe covers marshall gical mask with face-shiel d, gloves}} were donned and doffed appropriat jerome and all equipment cleaned using approved technique with germicidal disposable wipes prior to and after care of this patient according to [facility]'s infection prevention protocols. In order to obtain further informatio n and compare any laboratory results/va lues, I have accessed {{old patient records* p atient records on the [employer] r eviewed records with the PCP}}. This informatio n was pertinent in my medical decision making today. [id number] Asiya Brennan NP [facility] - HOME [address] [place] [address], [place] [address] 08/10/2020 15:43:37 08/12/2020 12:52:17 Wound of skin [id number] T14.8XXD Overview/H istory: Patient is an 79 year old alert female who presents today for follow up from previous visit 07/31/2020 where she sustained a lac to her lower right leg requiring 5 sutures and a course of Doxycyclin e 100 mg BID. She did complete the 7 day course of antibiotic s 08/08/2020. Exam: Afebrile 98.4. HRR 80, S1. S2. LSCTA bilaterall y, no work of breathing, speaking in full sentences. Abdomen soft, rounded + bowel sounds x 4 quadrants. No CVA tenderness , no suprapubic tenderness . Bilateral LE edema as noted in previous exam. The lower left leg laceration has healed well, there is no evidence of infection, no exudate, no streaking, no pain or heat when touched. DDx considered , but not limited to:Lacerat ion - well healed Work up/Results : Exam. Lower left leg laceration was cleansed with wound cleanser and 5 sutures were removed. Antibiotic ointment applied and sterile Telfa dressing applied. Plan/Discu ssion: Monitor for any s/s infection. Continue with previously prescribed Mupirocin 2% ointment and bandages until wound completely granulated . Change dressing 2 x daily. discussed s/s to report to PCP vs. acute s/s to report to ED/call 911. Patient is able to reiterate all discussed. No questions at this time. Proper Personal Protective Equipment (PPE), including {{gloves, eye protection , masks, and gowns, shoe covers jazmin ves, eye protection and masks glov es, eye protection gloves, eye protection , N95 mask, gown, and shoe covers * surgical mask with face-shiel d, gloves, gown and shoe covers marshall gical mask with face-shiel d, gloves}} were donned and doffed approprashley cano and all equipment cleaned using approved technique with germicidal disposable wipes prior to and after care of this patient according to [facility]'s infection prevention protocols. In order to obtain further informatio n and compare any laboratory results/va lues, I have accessed {{old patient records* p atient records on the [employer] r eviewed records with the PCP}}. This informatio n was pertinent in my medical decision making today. Health Concerns Section Related Observation LastModified by Organization Detai ls LastModified Time None Recorded Concern Status LastModified by Organization Details LastModified Time None Recorded Advance Directives Directive N: Payers Encounter Date Sequence Insurance Name Policy Number Policy Salcido Covered Member ID Salcido Member ID Guarantor Name 02/09/2020 1 [place] [email or web address] Jenifer S Sypek [id number] Jenifer Sypek 02/09/2020 2 [place] [facility] Jenifer Sypek [id number] Jenifer Sypek 02/16/2020 1 [place] [email or web address] Jenifer S Sypek [id number] Jenifer Sypek 02/16/2020 2 [place] Jenifer Sypek [id number] Jenifer Sypek 07/31/2020 1 [place] [email or web address] Jenifer S Sypek [id number] Jenifer Sypek 07/31/2020 2 [place] Jenifer Sypek [id number] Jenifer Sypek 08/10/2020 2 [place] [facility] Jenifer Sypek [id number] Jenifer Sypek 08/10/2020 1 [facility] - DOS PRIOR TO 2022 - DUAL ELIGIBLE (MEDICARE REPLACEMENT/AD VANTAGE - HMO) Jenifer Sypek [id number] Jenifer Sypek Notes Date Note Type Note Provider Name and Address Organization Details Recorded Time 02/09/2020 text/html This is an 79-year-old female that is new to [facility]. Her daughter had contacted [facility] because the patient has been acting [...] being homebound because of COVID 19. KEVIN CRUZ, [facility] [address], [place], [address], [place] [facility] 02/09/2020 15:16:03 07/31/2020 text/html [...] DDD Asiya Brennan NP [address], [place], [address], [place] [facility] 08/02/2020 09:52:11 08/10/2020 text/html [...] DDD. Asiya Brennan NP [address], [place], [address], [place] [facility] 08/10/2020 16:17:20 OBGyn Episode No OBEpisode recorded.
--- OUTSIDE RECORDS SUMMARY | 2024-10-01 17:34 | XMS_ITS | Encounter Summary ---
Author Organization [facility] Address [address] [place] [address] Care Team Providers Care Row Boss Name Role Phone Monica Arciniega MD Primary Care Provider [phone] Encounter Details Date Type Department Care Team (Late st Contact Info) Description 09/25/[address] [facility] - Main Lab [address] [facility] [place] [address] Monica Arciniega MD [address] [place] [address] [place] [address] Cardiomyopathy in diseases classified elsewhere (CMS/HCC V24, CMS/HCC V28); Pneumonia, unspecified organism; Chronic obstructive pulmonary disease, unspecified (CMS/HCC V24, CMS/HCC V28); Restlessness and agitation Social History Tobacco Use Types Packs/Day Years Used Date Smoking Tobacco: Former Smokeless Tobacco: Never Comments Unknown Sex and Gender Information Value Date Recorded Sex Assigned at Not on file Legal Sex Female 7:49 AM EST Gender Identity Not on file Sexual Orientation Not on file documented as of this encounter Plan of Treatment Not on file documented as of this encounter Procedures Procedure Name Priority Date/Time Associated Diagnosis Comments CBC WITH AUTO DIFFERENTIAL Routine 09/25/2024 12:30 PM EDT Cardiomyopathy in diseases classified elsewhere (CMS/HCC V24, CMS/HCC V28) Pneumonia, unspecified organism Chronic obstructive pulmonary disease, unspecified (CMS/HCC V24, CMS/HCC V28) Restlessness and agitation CBC AND DIFFERENTIAL Routine 09/25/2024 12:30 PM EDT Cardiomyopathy in diseases classified elsewhere (CMS/HCC V24, CMS/HCC V28) Pneumonia, unspecified organism Chronic obstructive pulmonary disease, unspecified (CMS/HCC V24, CMS/HCC V28) Restlessness and agitation MAGNESIUM Routine 09/25/2024 12:30 PM EDT Cardiomyopathy in diseases classified elsewhere (CMS/HCC V24, CMS/HCC V28) Pneumonia, unspecified organism Chronic obstructive pulmonary disease, unspecified (CMS/HCC V24, CMS/HCC V28) Restlessness and agitation COMPREHENSIVE METABOLIC PANEL Routine 09/25/2024 12:30 PM EDT Cardiomyopathy in diseases classified elsewhere (CMS/HCC V24, CMS/HCC V28) Pneumonia, unspecified organism Chronic obstructive pulmonary disease, unspecified (CMS/HCC V24, CMS/HCC V28) Restlessness and agitation documented in this encounter Results * (ABNORMAL) CBC auto differential (09/25/2024 12:30 PM EDT) [facility] WBC 6.9 4.8 - 10.8 K/mcL LAB HEMETOLOG[facility] RBC 3.20(L) 3.80 - 4.80 M/mcL LAB HEMETOLOGY METHOD 09/25/2024 6:39 PM [facility] Hemoglobin 9.9(L) 11.5 - 16.0 g/dL LAB HEMETOLOGY METHOD 09/25/2024 6:39 PM [facility] Hematocrit 32.5(L) 35.0 - 47.0 % LAB HEMETOLOGY METHOD 09/25/2024 6:39 PM [facility] MCV 101.9(H) 79.0 - 98.0 FL LAB HEMETOLOGY METHOD 09/25/2024 6:39 PM [facility] MCH 31.0 27.0 - 32.0 pcg LAB HEMETOLOGY METHOD 09/25/2024 6:39 PM [facility] MCHC 30.5(L) 32.0 - 37.0 g/dL LAB HEMETOLOGY METHOD 09/25/2024 6:39 PM [facility] RDW 15.9(H) 11.0 - 15.0 % LAB HEMETOLOGY METHOD 09/25/2024 6:39 PM [facility] Platelets 188 130 - 400 K/mcL LAB HEMETOLOGY METHOD 09/25/2024 6:39 PM [facility] MPV 12.3(H) 7.0 - 11.0 FL LAB HEMETOLOGY METHOD 09/25/2024 6:39 PM [facility] NRBC 0.0 <1.0 % LAB HEMETOLOGY METHOD 09/25/2024 6:39 PM [facility] NRBC Absolute 0.00 <0.10 K/mcL LAB HEMETOLOGY METHOD 09/25/2024 6:39 PM [facility] Neutrophils Relative 65.6 % LAB HEMETOLOGY METHOD 09/25/2024 6:39 PM [facility] Lymphocytes Relative 22.4 % LAB HEMETOLOGY METHOD 09/25/2024 6:39 PM [facility] Monocytes Relative 5.1 % LAB HEMETOLOGY METHOD 09/25/2024 6:39 PM [facility] Eosinophils Relative 4.7 % LAB HEMETOLOGY METHOD 09/25/2024 6:39 PM [facility] Basophils Relative 1.5 % LAB HEMETOLOGY METHOD 09/25/2024 6:39 PM [facility] Immature Granulocytes Relative 0.7 % LAB HEMETOLOGY METHOD 09/25/2024 6:39 PM [facility] Neutrophils Absolute 4.50 1.50 - 7.00 K/mcL LAB HEMETOLOGY METHOD 09/25/2024 6:39 PM EDT [facility] Lymphocytes Absolute 1.54 1.00 - 5.00 K/mcL LAB HEMETOLOGY METHOD 09/25/2024 6:39 PM EDT [facility] Monocytes Absolute 0.35 0.20 - 1.00 K/[facility] LAB HEMETOLOGY METHOD 09/25/2024 6:39 PM EDT [facility] Eosinophils Absolute 0.32 0.00 - 0.50 K/[facility] LAB HEMETOLOGY METHOD 09/25/2024 6:39 PM EDT [facility] Basophils Absolute 0.10 0.00 - 0.20 K/[facility] LAB HEMETOLOGY METHOD 09/25/2024 6:39 PM EDT [facility] Immature Granulocytes Absolute 0.05(H) 0.00 - 0.03 K/[facility] LAB HEMETOLOGY METHOD 09/25/2024 6:39 PM EDT [facility] Blood Venous blood specimen / Unknown 09/25/2024 12:30 PM EDT 09/25/2024 6:06 PM EDT us Monica Arciniega MD LAB BLOOD ORDERABLES Final Re sult [facility] [address] [place] [address], * (ABNORMAL) Magnesium (09/25/2024 12:30 PM EDT) Magnesium 1.8(L) 1.9 - 2.6 mg/dL LAB CHEMISTRY METHOD 09/25/2024 10:32 PM EDT [facility] Blood Venous blood specimen / Unknown Venipuncture / Unknown 09/25/2024 12:30 PM EDT 09/25/2024 6:06 PM EDT us Monica Arciniega MD LAB BLOOD ORDERABLES Final Re sult [facility] [address] [place] [address], * (ABNORMAL) Comprehensive metabolic panel (09/25/2024 12:30 PM EDT) Sodium 140 133 - 145 mmol/L LAB CHEMISTRY METHOD 09/25/2024 10:44 PM EDT [facility] Potassium 4.2 3.5 - 5.5 mmol/L LAB CHEMISTRY METHOD 09/25/2024 10:44 PM T [facility] Chloride 105 96 - 110 mmol/L LAB CHEMISTRY METHOD 09/25/2024 10:44 PM [facility] CO2 25 21 - 32 mmol/L LAB CHEMISTRY METHOD 09/25/2024 10:44 PM [facility] Anion Gap 10 3 - 11 LAB CHEMISTRY METHOD 09/25/2024 10:44 PM [facility] Glucose 146(H) 70 - 100 mg/dL LAB CHEMISTRY METHOD 09/25/2024 10:44 PM [facility] BUN 23 5 - 25 mg/dL LAB CHEMISTRY METHOD 09/25/2024 10:44 PM [facility] Creatinine 1.16(H) 0.50 - 1.10 mg/dL LAB CHEMISTRY METHOD [facility]24 10:[facility] PM [facility] eGFR 46(L) >=60 mL/min/1. 73m2 LAB CHEMISTRY METHOD 09/25/2024 10:44 PM [facility] Comment:Calculation based on the??Chronic Kidney Disease Epidemiology Collaboration (CKD-EPI) equation refit??without adjustment for race. BUN/Creatinine Ratio 19.8 LAB CHEMISTRY METHOD 09/25/2024 10:44 PM [facility] Calcium 8.1(L) 8.5 - 10.5 mg/dL LAB CHEMISTRY METHOD 09/25/2024 10:44 PM EDT [facility] AST (SGOT) 42 10 - 42 unit/L LAB CHEMISTRY METHOD 09/25/2024 10:44 PM EDT [facility] ALT (SGPT) 41 10 - 60 unit/L LAB CHEMISTRY METHOD 09/25/2024 10:44 PM EDT [facility] Alkaline Phosphatase 123(H) 42 - 121 unit/L LAB CHEMISTRY METHOD 09/25/2024 10:44 PM EDT [facility] Total Protein 5.8(L) 6.0 - 8.0 g/dL LAB CHEMISTRY METHOD 09/25/2024 10:44 PM EDT [facility] Albumin 2.7(L) 3.2 - 5.0 g/dL LAB CHEMISTRY METHOD 09/25/2024 10:44 PM T [facility] Total Bilirubin 0.8 0.0 - 1.4 mg/dL LAB CHEMISTRY METHOD 09/25/2024 10:44 PM EDT [facility] Blood Venous blood specimen / Unknown Venipuncture / Unknown 09/25/2024 12:30 PM EDT 09/25/2024 6:06 PM EDT us Monica Arciniega MD LAB BLOOD ORDERABLES Final Re sult [facility] [address] [place] [address], documented in this encounter Visit Diagnoses Diagnosis Cardiomyopathy in diseases classified elsewhere (CMS/HCC V24, CMS/HCC V28) Pneumonia, unspecified organism Chronic obstructive pulmonary disease, unspecified (CMS/HCC V24, CMS/HCC V28) Restlessness and agitation Other signs and symptoms involving emotional state documented in this encounter Care Teams Row Boss Relationship Specialty Start Date End Date Monica Arciniega MD [address] [place] [address] [place] [address] PCP - General Internal Medicine 09/25/24 documented as of this encounter
--- OUTSIDE RECORDS SUMMARY | 2024-10-01 17:34 | XMS_ITS | Clinical Summary ---
Author Organization [address] [facility] Address [address] [place] [phone] Phone Care Team Providers Care Vp Customer Development Name Role Phone Monica Arciniega MD Primary Care Provider [phone] Encounters Date Type Department Care Team Description 09/25/2024 Lab Requisition [facility] - Main Lab [address] [facility] [employer] [place] [address] Monica Arciniega MD Cardiomyopathy in diseases classified elsewhere (CMS/[facility] V24, CMS/[facility] V28); Pneumonia, unspecified organism; Chronic obstructive pulmonary disease, unspecified (CMS/HCC V24, CMS/[facility] V28); Restlessness and agitation from Last 3 Months Surgical History Surgery Date Site/Laterality Comments OTHER SURGICAL HISTORY PROCEDURE: HISTORY OTHER; COMMENT: ORI Medical History Medical History Date Comments 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 DX:A rthritis of multiple sites CAD (coronary artery disease) 08/08/2016 DX :CAD (coronary artery disease) Constipation 10/28/2016 DX:Constipation COPD (chronic obstructive pu lmonary disease) (CMS/[facility] V24, CMS/[facility] V28) 10/11/2017 DX:COPD (chronic o bstructive pulmonary disease) ([facility]) GERD (gastroesophageal reflux disease) 10/11/2017 DX:GERD (gastroesophageal reflux disease) History of Lyme disease 12/17/2013 DX:Histo ry of Lyme disease Hyperlipidemia 10/11/2017 DX:Hyperlipidemi a Hypertension 10/11/2017 DX:Hypertension Insomnia 10/02/2013 DX:Insomnia Overactive bladder 07/22/2013 DX:Overactive bladder Pulmonary nodule 04/12/2017 DX:Pulmonary no dule Solitary thyroid nodule 03/30/2016 DX:Solit swetha thyroid nodule Social History Tobacco Use Types Packs/Day Years Used Date Smoking Tobacco: Former Smokeless Tobacco: Never Comments Unknown Sex and Gender Information Value Date Recorded Sex Assigned at Not on file Legal Sex Female 7:49 AM EST Gender Identity Not on file Sexual Orientation Not on file Obstetrics History Plan of Treatment Health Maintenance Due Date Last Done Comments DTaP,Tdap,and Td Vaccines (1 - Tdap) 1957 Zoster Vaccines (1 of 2) 1988 RSV Immunization Adult Patients (1 - 1-dose 75+ series) 2013 COVID-19 Vaccine ( - 2023-2 5 season) 2024 Cholesterol Screening (Lipid Panel) 09/26/2024 Depression Screening 09/26/2024 Falls Risk Assessment 09/26/2024 Social Influencers of Health Screening 09/26/2024 Influenza Vaccine (Season Ended) 2025 04/26/2017 Hypertension/CHF/CAD Annual BMP Blood Test 09/25/2025 09/25/2024 Osteoporosis Screening (Bone Density Screening) 01/18/2031 01/18/2021 Pneumococcal Vaccine: 50+ Years Completed 04/26/2017, 12/23/2014 HIB Vaccines Aged Out No longer eligi ble based on patient's age to complete this topic HPV Vaccines Aged Out No longer eligi ble based on patient's age to complete this topic Hepatitis A Vaccines Aged Out No long er eligible based on patient's age to complete this topic Hepatitis B Vaccines Aged Out No long er eligible based on patient's age to complete this topic IPV Vaccines Aged Out No longer eligi ble based on patient's age to complete this topic MMR Vaccines Aged Out No longer eligi ble based on patient's age to complete this topic Meningococcal ACWY Vaccine Aged Out N o longer eligible based on patient's age to complete this topic Meningococcal B Vaccine Aged Out No l onger eligible based on patient's age to complete this topic RSV Immunization Patients Under 20 months Aged Out No longer eligible b ased on patient's age to complete this topic Varicella Vaccines Aged Out No longer eligible based on patient's age to complete this topic Procedures Procedure Name Priority Date/Time Associated Diagnosis [...] (CMS/HCC V24, CMS/HCC V28) Restlessness and agitation LOIS DEXA AXIAL SKELETON Routine 01/18/2021 4:18 PM EDT Age-related osteoporosis without current pathological fracture from Last 3 Months or Most Recently Relevant to Health Maintenance Results * (ABNORMAL) CBC auto differential (09/25/2024 12:30 PM EDT) WBC 6.9 4.8 - 10.8 K/mcL LAB HEMETOLOGY METHOD 09/25/2024 6:39 PM EDT [facility] RBC 3.20(L) 3.80 - 4.80 M/mcL LAB HEMETOLOGY METHOD 09/25/2024 6:39 PM EDT [facility] Hemoglobin 9.9(L) 11.5 - 16.0 g/dL LAB HEMETOLOGY METHOD 09/25/2024 6:39 PM [facility] Hematocrit 32.5(L) 35.0 - 47.0 % LAB HEMETOLOGY METHOD 09/25/2024 6:39 [facility] MCV 101.9(H) 79.0 - 98.0 FL LAB HEMETOLOGY METHOD 09/25/2024 6:39 PM [facility] MCH 31.0 27.0 - 32.0 pcg LAB HEMETOLOGY METHOD 09/25/2024 6:39 PM [facility] MCHC 30.5(L) 32.0 - 37.0 g/dL LAB HEMETOLOGY METHOD 09/25/2024 6:39 PM [facility] RDW 15.9(H) 11.0 - 15.0 % LAB HEMETOLOGY METHOD 09/25/2024 6:39 PM [facility] Platelets 188 130 - 400 K/mcL LAB HEMETOLOGY METHOD 09/25/2024 6:39 PM [facility] MPV 12.3(H) 7.0 - 11.0 FL LAB HEMETOLOGY METHOD 09/25/2024 6:39 PM [facility] NRBC 0.0 <1.0 % LAB HEMETOLOGY METHOD 09/25/2024 6:39 PM [facility] NRBC Absolute 0.00 <0.10 K/mcL LAB HEMETOLOGY METHOD 09/25/2024 6:39 PM [facility] Neutrophils Relative 65.6 % LAB HEMETOLOGY METHOD 09/25/2024 6:39 PM [facility] Lymphocytes Relative 22.4 % LAB HEMETOLOGY METHOD 09/25/2024 6:39 PM [facility] Monocytes Relative 5.1 % LAB HEMETOLOGY METHOD 09/25/2024 6:39 PM [facility] Eosinophils Relative 4.7 % LAB HEMETOLOGY METHOD 09/25/2024 6:39 PM EDT [facility] Basophils Relative 1.5 % LAB HEMETOLOGY METHOD 09/25/2024 6:39 PM EDT [facility] Immature Granulocytes Relative 0.7 % LAB HEMETOLOGY METHOD 09/25/2024 6:39 PM EDT [facility] Neutrophils Absolute 4.50 1.50 - 7.00 K/mcL LAB HEMETOLOGY METHOD 09/25/2024 6:39 PM EDT [facility] Lymphocytes Absolute 1.54 1.00 - 5.00 K/mcL LAB HEMETOLOGY METHOD 09/25/2024 6:39 PM EDT [facility] Monocytes Absolute 0.35 0.20 - 1.00 K/mcL LAB HEMETOLOGY METHOD 09/25/2024 6:39 PM EDT [facility] Eosinophils Absolute 0.32 0.00 - 0.50 K/mcL LAB HEMETOLOGY METHOD 09/25/2024 6:39 PM EDT [facility] Basophils Absolute 0.10 0.00 - 0.20 K/mcL LAB HEMETOLOGY METHOD 09/25/2024 6:39 PM EDT [facility] Immature Granulocytes Absolute 0.05(H) 0.00 - 0.03 K/mcL LAB HEMETOLOGY METHOD 09/25/2024 6:39 PM EDT [facility] Blood Venous blood specimen / Unknown 09/25/2024 12:30 PM EDT 09/25/2024 6:06 PM EDT us Monica Arciniega MD LAB BLOOD ORDERABLES Final Re sult [facility] [address] [place] [address], * (ABNORMAL) Magnesium (09/25/2024 12:30 PM EDT) Pathologist [facility] Magnesium 1.8(L) 1.9 - 2.6 mg/dL LAB CHEMISTRY METHOD 09/25/2024 10:32 PM [facility] Blood Venous blood specimen / Unknown Venipuncture / Unknown 09/25/2024 12:30 PM EDT 09/25/2024 6:06 PM EDT us Monica Arciniega MD LAB BLOOD ORDERABLES Final Re sult [facility] [address] [place] [address], * (ABNORMAL) Comprehensive metabolic panel (09/25/2024 12:30 PM EDT) Pathologist [facility] Sodium 140 133 - 145 mmol/L LAB CHEMISTRY METHOD 09/25/2024 10:44 PM [facility] Potassium 4.2 3.5 - 5.5 mmol/L LAB CHEMISTRY METHOD 09/25/2024 10:44 PM [facility] Chloride 105 96 - 110 mmol/L LAB CHEMISTRY METHOD 09/25/2024 10:44 PM [facility] CO2 25 21 - 32 mmol/L LAB CHEMISTRY METHOD 09/25/2024 10:44 PM [facility] Anion Gap 10 3 - 11 LAB CHEMISTRY METHOD 09/25/2024 10:44 PM [facility] Glucose 146(H) 70 - 100 mg/dL LAB CHEMISTRY METHOD 09/25/2024 10:44 PM [facility] BUN 23 5 - 25 mg/dL LAB CHEMISTRY METHOD 09/25/2024 10:44 PM [facility] Creatinine 1.16(H) 0.50 - 1.10 mg/dL LAB CHEMISTRY METHOD 09/25/2024 10:44 PM [facility] eGFR 46(L) >=60 mL/min/1. 73m2 LAB CHEMISTRY METHOD 09/25/2024 10:44 PM EDT [facility] Comment:Calculation based on the??Chronic Kidney Disease Epidemiology Collaboration (CKD-EPI) equation refit??without adjustment for race. BUN/Creatinine Ratio 19.8 LAB CHEMISTRY METHOD 09/25/2024 10:44 PM EDT [facility] Calcium 8.1(L) 8.5 - 10.5 mg/dL LAB CHEMISTRY METHOD 09/25/2024 10:44 PM EDT [facility] AST (SGOT) 42 10 - 42 unit/L LAB CHEMISTRY METHOD 09/25/2024 10:44 PM [facility] ALT (SGPT) 41 10 - 60 unit/L LAB CHEMISTRY METHOD 09/25/2024 10:44 PM [facility] Alkaline Phosphatase 123(H) 42 - 121 unit/L LAB CHEMISTRY METHOD 09/25/2024 10:44 PM EDT [facility] Total Protein 5.8(L) 6.0 - 8.0 g/dL LAB CHEMISTRY METHOD 09/25/2024 10:44 PM T [facility] Albumin 2.7(L) 3.2 - 5.0 g/dL LAB CHEMISTRY METHOD 09/25/2024 10:44 PM [facility] Total Bilirubin 0.8 0.0 - 1.4 mg/dL LAB CHEMISTRY METHOD 09/25/2024 10:44 PM T [facility] Blood Venous blood specimen / Unknown Venipuncture / Unknown 09/25/2024 12:30 PM EDT 09/25/2024 6:06 PM EDT us Monica Arciniega MD LAB BLOOD ORDERABLES Final Re sult [facility] [address] [place] [address], [place] [phone] * LOIS DEXA AXIAL SKELETON (01/18/2021 4:18 PM EDT) Anatomical Region Laterality Modality Mammography 01/18/2021 2:14 PM EDT Narrative 01/18/2021 4:18 PM EDT [facility] Diagnostic Imaging Department [address] [place] [id number] Patient: ??JENIFER MERCADO ?/Age/Sex: 1940 - 80 - F Unit#: ??[id number] ? Location/Status: ??SPDIMAM/REG CLI ? Mnemonic/Ordering Site: ??MAMDEXAAX/SPMAM Ordering Physician: ??ANA BALTAZAR MD [facility] Dexa Axial Skeleton - 01/18/211499 History: Low estrogen state due to menopause. History of adult fracture (hip, pelvis, tibia). Rheumatoid arthritis. Chronic glucocorticoid use. Tobacco use. Hip replacement. Findings: Bone densitometry is performed utilizing dual energy x-ray absorptiometry (DXA) in the Zayante unit. The lumbar spine and left proximal femur are evaluated in the AP projection. The FRAX questionaire was completed. The results indicate osteoporosis, with a left femoral neck T-score of -3.6. The detailed DEXA report will be mailed to the referring physician's office. DualFemur FRAX: 10-year Probability of Fracture: Major Osteoporotic 58.3 percent ??Hip 34.1 percent. IMPRESSION: Osteoporosis. [id number] Dictating Physician: ??KRISTIE GODWIN MD Electronically Signed by: ??KRISTIE GODWIN MD Dic Date/Time: ??01/18/211616 Sign date/Time: ??01/18/21 1618 Procedure Note Kristie Godwin MD - 06/08/2022 [facility] Diagnostic Imaging Department [address] [place], [place] [id number] Patient: JENIFER MERCADO [place] /Age/Sex: 1940 - 80 - F Unit#: [id number] Location/Status: [facility]/REG CLI [facility] Ordering Physician: ANA BALTAZAR MD [facility] Dexa Axial Skeleton - 01/18/21 - 1499 History: Low estrogen state due to menopause. History of adult fracture(hip, pelvis, tibia). Rheumatoid arthritis. Chronic glucocorticoid use. [place]. Hip replacement. Findings: Bone densitometry is performed utilizing dual energy x-ray absorptiometry(DXA) in the Zayante unit. The lumbar spine and left proximal femur are evaluated in the AP projection. The FRAX questionaire was completed. The results indicate osteoporosis, with a left femoral neck T-score of-3.6. The detailed DEXA report will be mailed to the referring physician'soffice. DualFemur FRAX: 10-year Probability of Fracture: Major Osteoporotic 58.3 percent Hip 34.1 percent. IMPRESSION: Osteoporosis. [id number] Dictating Physician: KRISTIE GODWIN MD Electronically Signed by: KRISTIE GODWIN MD Dic Date/Time: 01/18/211616 Sign date/Time: 01/18/211617 Ana Baltazar MD IMG BI PROCEDURES Final Resu lt from Last 3 Months or Most Recently Relevant to Health Maintenance Insurance MEDICAID - [place] Care Teams Vp Customer Development Relationship Specialty Start Date End Date Monica Arciniega MD [address] [place] [address] [place] [address] PCP - General Internal Medicine 09/25/24
== END 2024-10-01 15:37 | disposition home or self-care (01) ==
LOC: HO.HPS 14:43
PROVIDERS: PCP Internal Medicine; Visit Provider Hospitalist
DX: Z23 Encounter for immunization (principal); J44.0 Chronic obstructive pulmonary disease with (acute) lower respiratory infection; J69.0 Pneumonitis due to inhalation of food and vomit; J15.1 Pneumonia due to Pseudomonas; R91.8 Other nonspecific abnormal finding of lung field; J47.0 Bronchiectasis with acute lower respiratory infection; I50.9 Heart failure, unspecified; R10.84 Generalized abdominal pain
CPT/HCPCS: 99215

== ENCOUNTER → 2024-10-01 14:42 | Outpatient (BNVA) | payer OTHER, SELFPAY | PROVIDERS: PCP Internal Medicine; Visit Provider Hospitalist | DX: J47.0 Bronchiectasis with acute lower respiratory infection (principal); J69.0 Pneumonitis due to inhalation of food and vomit; J15.1 Pneumonia due to Pseudomonas; R91.8 Other nonspecific abnormal finding of lung field; R06.00 Dyspnea, unspecified; R06.02 Shortness of breath; I50.9 Heart failure, unspecified; R10.84 Generalized abdominal pain; Z23 Encounter for immunization | CPT/HCPCS: 90471; 90677; 99212 ==

== ENCOUNTER 2024-12-17 14:36 | Outpatient (AMB) | payer OTHER, SELFPAY ==
[2024-12-17 14:37] VITALS: BP 102/62; PULSE 83; O2SAT 94; BMI 29.5
--- NOTE | 2024-12-17 14:37 | A.OFFVIS_ITS ---
Vital Signs 12/17/24 14:37 Height 4 ft 11 in Weight 146 lb BMI 29.5 BP 102/62 Blood Pressure Location Rt brachial Position Sitting Pulse 83 Pulse Source Pulse Oximeter Pulse Oximetry (%) 94 Oxygen Delivery Method Room Air Comment Verbal weight Intake Visit Reasons: COPD Allergies carvedilol Allergy (Verified 12/17/24 14:43) Shortness of Breath sertraline (From Zoloft) Allergy (Verified 12/17/24 14:43) Shortness of Breath spironolactone Allergy (Verified 12/17/24 14:43) Shortness of Breath adhesive tape Adverse Reaction (Severe, Verified 12/17/24 14:43) skin tears ertapenem Adverse Reaction (Severe, Verified 12/17/24 14:43) Confusion mirtazapine Adverse Reaction (Severe, Verified 12/17/24 14:43) psychotic episode HPI Comments Details: The patient is an 84 year-old woman with known history of COPD along with chronic bronchitis due apparently has been in usual state health until for the last several months where her respiratory status has dramatically worsen. The patient has had numerous admissions in a short period of time. The patient states that she started developing worsening cough usually congested in nature. She has a hard time expectorating. Suddenly she developed significant respiratory distress with the family notices that she is decompensated very quickly. At that point EMS was called the. Usually the patient is found to be hypoxic and she is brought to the hospital. She has been admitted to normal now about 4 times in a [facility] about 2 times. Her sputum was positive for Pseudomonas aeruginosa and she was treated with ceftazidime. Ultimately she is treated and then subsequently is able to recover partially in that she is sent home. Usually the cycle restarts again. She has been having hard time since she does the hospital recently. They try sending another sputum culture but it was contaminated. In the office she was very congested. We were able to get a sputum sample and also very tenacious greenish in color and also smelling of Pseudomonas consistent with likely pseudomonal lower respiratory infections and pneumonia. The patient did received Xopenex with hypertonic saline with good response. She had been on DuoNeb but I am concerned that is drying up the mucus even more. Therefore will switch over to the Xopenex instead. I did review her CT scan of the chest done at [facility]. She has numerous pulmonary nodules in addition to thickened airways and some bronchiectatic looking airways. Therefore, the patient does have chronic airway disease now worsened by the fact that she is colonized with Pseudomonas. She has had multiple admissions to the hospital and therefore failing IV and oral antibiotics. The only option right now will be to start her inhaled tobramycin. she is already performing chest physical therapy with a flutter valve. 04/27/2023 the patient is here for a pulmonary follow-up visit. Since we last spoke she went back to the hospital. She was diagnosed with pneumonia was again placed on antibiotics. Again a course complicated with C diff colitis. 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 She was treated with p.o. vancomycin again. I explained to the patient and to the daughter that she needs to minimize antibiotic use because it will reasonable result in a very complicated abdominal process. The patient likely has a component of microaspiration likely aspiration pneumonias specially since pneumonias or mainly on the right side. She does have an increased amount of dementia and she is requiring additional care from the family. She is also falling asleep more regularly during the daytime. She is going to start her day program to see if this allows her to be more stimulated and more weight. In the meantime she is off the inhaled tobramycin. In view of her all her complications will go ahead and hold off the tobramycin for 4-6 weeks to see if there is improvement in her GI issues. She will continue with the current respiratory therapy With the Xopenex therapy. And will follow-up in 6 months. If the patient has any worsening symptoms she is to call the office for an earlier assessment. we also spoke briefly about goals of care. Talked about her code status. The patient currently is a full code we did talk about the concerns about her significant comorbidities and being too aggressive with her care. Therefore, I did recommend the patient talk to her daughter further about code status. 09/14/2023 the patient has a telehealth visit today. Overall she has been doing well. The weather spot so therefore she stayed home. She has not required any prednisone or antibiotics since we last spoke which is very reassuring. This is the longest stent of good health she has had. She is also participating in the day program where she is exposed to a lot of people and she has actually been doing very well with that as well. She continues her respiratory therapy with Xopenex. The patient has not required any other respiratory therapy. She continues use oxygen with good effect. She does complaint of some chest congestion and mucus. Explained to her that she does have chronic bronchitis and she will always make mucus. Although she needs to be monitoring closely the collar the consistency in the frequency of the mucus. If those were to worsen she will call nor for us to treat her for potential infection. 12/13/2023 the patient is here for a pulmonary follow-up visit. She was in her usual state health until the last week when she started developing worsening cough chest congestion. For another breath. Hard time expectorating. Moderate severity. Denied any fevers or chills. The mucus was colored. She does have history of Pseudomonas. At this start her on levofloxacin and also prednisone. Today she has already feeling a little better. Although the family is concerned that she has coming to the end of the treatment still congested and coughing although not as bad. The patient still has some rhonchi and wheezing on examination. I am concerned about the use of quinolones because of the possibility of tendonitis and also the risk of C diff colitis. At the same time the patient does have chronic airway disease with significant bronchiectasis. Therefore, I will give another 10 days but a low dose levofloxacin and a lower dose prednisone. He should continue with her CPT therapy. Continue with the nebulized therapy. She has been using the oxygen with good effect. Otherwise the patient is feeling a little bit better. Her last chest x-ray personally by me from 10/30/2023 with some chronic changes decreased lung volumes and some atelectasis at the bases. Further recommendation based on forthcoming data. The patient will follow-up in 3-4 months. 02/06/2024 the patient is here for sick visit. She has had worsening cough chest congestion. Moderate severity. The mucus is very tenacious. Sometimes she has a hard time clearing her secretions. She did respond well to the levofloxacin. The patient has had history of Pseudomonas in the sputum. Likely this is related to Pseudomonas at this time. Although, she does also have a history of C diff colitis. Therefore, the patient understands that using quinolones to treat her underlying respiratory infection can lead to C diff colitis. Will go ahead and pretreat her with Flagyl to minimize risk. The patient ultimately has significant bronchiectasis. She will benefit from inhaled tobramycin to be provided in order to treat the Pseudomonas infection. Therefore, will go ahead and send a sputum culture at this time. she will start the antibiotics continue with her chest physical therapy. She should be using her Acapella valve and also her nebulized therapy. Right now she does not having significant wheezing therefore will hold off on any prednisone. The patient has any worsening symptoms she will call for further evaluation. 03/18/2024 the patient is here for a pulmonary follow-up visit. Overall she is doing better since we last saw her. She did complete the 28 days of the inhaled tobramycin. She does have a hard time with it. Gives her bad taste and she does not like to take it. She is considering not continuing the therapy. She is going to have now 20 days off the medicine which I find helpful for her to take a break. But I explained to the patient did Pseudomonas will return in her respiratory symptoms will return subsequently after that and it will continue to worsen. Therefore, we do not have a lot of alternative options in the inhaled SHY although does have some adverse symptoms it is effective treating the Pseudomonas. In the meantime she is going to continue using respiratory therapy and chest PT to clear mucus. On exam she does have some wheezing. Hold off on any prednisone at this time. If her symptoms worsen she will call. She is also monitoring closely her weight. She has gained weight but although she is eating more. Does not appear to be volume overloaded at this time. She will continue with current dose of diuretics. Will follow-up in 3-4 months. The patient has any worsening symptoms prior to that she will call for an earlier assessment. 06/24/2024 the patient is here for sick visit. She chest congestion. She was evaluated by loss month. She was. The patient is still having significant chest congestion. She started. She does complaint of abdominal pain when taking it. Primarily because she has coughing a lot. Seems that she does expectorate better when she has in the inhaled SHY. On exam she does have some rhonchi wheezing and diminished breath sounds. Will go ahead and stop her SHY for now to her belly pain gets better. 07/18/2024 the patient is here for a pulmonary follow-up visit. Since we last spoke she had worsening symptoms and ended up going to the ER. There she was admitted to the hospital. She had an episode of agitation and respiratory distress and the patient was intubated for short time and transferred to the ICU. She was quickly liberated from the ventilator. And she was given IV antibiotics. The patient was diuresed and discharged. Although she continues have a hard time with her breathing. She has significant chest congestion. She has also become significantly weak after the prolonged hospitalizations and all the steroids and paralytics. She can not tolerate the inhaled tobramycin well. Irritate her throat. She also had a modified barium swallow demonstrating some laryngeal penetration but no overt aspiration. She did have a CT scan of the chest which I personally reviewed demonstrating some airspace disease in pneumonitis in the right hemithorax suggesting indeed of micro aspirations and aspirations resulting in pneumonitis. She does have a dysphagia diet which she should continue. For now though will start her on doxycycline to see if this provides some relief specially if there is any evidence of stenotrophomonas. In addition to that will go ahead and place her on small dose of prednisone 10 mg to see if this provides her relief and stability of disease. In addition to that the patient will continue the inhaled tobramycin but she will actually mixed in with the albuterol to see if she can tolerated better in that fashion. Will follow-up in 1-2 months. If she has any issues prior to that she will call for an earlier assessment. 10/01/2024 the patient is here for a pulmonary follow-up visit. The patient has had a very eventful month. Initially was hospitalized here for IV antibiotics. Unfortunately she was sent home in her PICC line started leaking she called to see about getting affixed and was recommended that she go to [facility] because we did not have Radiology available. When she went to [facility] she was found to be in AFib and she was admitted to the hospital. While in the hospital she aspirated and ended up getting intubated briefly. She was able to be liberated from the ventilator placed on BiPAP. The patient is clinically now better. She went home and she has been very tired and weak. She initially she could not walk but now she is taking about 10-15 steps. She is using her respiratory medications with good effect. She is actually feeling a lot better. Will continue with the current respiratory regimen at this time. I did review her last imaging study at [facility] demonstrating bilateral pleural effusions. She continues on the Lasix and her volume status has been better. 12/17/2024 the patient is here for pulmonary follow-up visit. Overall she is doi ng okay. She started to get a little more congested recently the last few days. Denies any significant chest tightness or wheezing or fevers. The patient has been using her inhaled tobramycin twice a day along with the albuterol. She does complaint of irritation of her mouth making it difficult for her to tolerate. Will go ahead and start her on magic mouthwash that she can use prior to the nebulized treatment to minimize the mucosal irritation. In addition to that the patient will have some prednisone and doxycycline home in case her symptoms were to worsen. But I do not believe right now she needs any additional therapies. Also did provide her with a sputum culture cup that she can provide us if her chest congestion worsens just prior to starting the antibiotics specially with a history of having Pseudomonas. Will follow-up in 3-4 months. She has any issues prior to this she will call for an earlier assessment. [facility] Medical History Aspiration pneumonia Diabetes Acute respiratory failure with hypoxia Congestive heart failure Mild bibasilar atelectasis Clostridioides difficile infection Pneumonia Atrial flutter Pyuria Atelectasis of right lung Encephalopathy chronic History of infection with vancomycin resistant Enterococcus (VRE) Heart failure Dyspnea Paroxysmal A-fib COPD (chronic obstructive pulmonary disease) A-fib Acute encephalopathy Anemia Pseudomonas respiratory infection CAD (coronary artery disease) Chronic dyspnea Acute hypokalemia Atrial fibrillation with RVR Anemia GI bleed Pulmonary nodules COPD (chronic obstructive pulmonary disease) Bronchiectasis Pseudomonal pneumonia Surgical History H/O umbilical hernia repair (09/18/22) History of quadruple bypass History of hip replacement History of knee replacement History of cholecystectomy Family History Other No family history of cancer Social History Household Members: Family Housing: House Are you a primary pet care worker to a significant other at home: No Do you presently have visiting nurse or other home services: Yes (vna) Alcohol intake: never Patient Tobacco Use Status: Former Tobacco user Tobacco use type: Cigarette Advance Directives Date on File: 08/24/22 service: No Current occupational status: retired Review of Systems Const Denies chills, Denies fatigue, Denies fever(s), Denies weight gain and Denies weight loss Eyes Reports change in vision ENT Denies dizziness and Reports mouth pain Card Denies chest pain, Denies leg edema, Denies lightheadedness, Denies palpitations, Reports dyspnea on exertion, Denies orthopnea and Denies other Resp Reports chest congestion, Reports cough, Reports dyspnea on exertion and Reports wheezing GI Denies hematochezia and Denies change in stool character Musc Denies abnormal gait, Denies muscle weakness, Denies numbness, Denies radiating pain into limb and Denies tingling Skin/Breast Reports rash and Reports unusual bruising Neuro Denies abnormal gait, Denies dizziness, Denies numbness and Denies tingling Psych Reports panic attacks Endo Denies fatigue and Denies palpitations Samir/Lymph Reports easy bruising and Denies lymphadenopathy Aller/Immun Reports wheezing Physical Exam Vital Signs: Last Vital Signs Pulse 83 12/17/24 14:37 BP 102/62 12/17/24 14:37 Pulse Ox 94 12/17/24 14:37 Oxygen Delivery Method Room Air 12/17/24 14:37 BMI result Body Mass Index 29.5 Last Vital Signs Temp 97.2 F 07/03/24 07:27 Pulse 88 07/03/24 07:27 Resp 20 07/03/24 07:27 BP 151/71 H 07/03/24 07:27 Pulse Ox 100 07/03/24 07:27 O2 Del Method Room Air 07/03/24 07:27 O2 Flow Rate 1 06/29/24 09:56 FiO2 24 06/28/24 12:00 BMI result Body Mass Index 36.5 Alert oriented x3, much more comfortable appearing, no more accessory muscles used, still sounds tight with some expiratory wheezes Const General: alert and awake Orientation/consciousness: patient oriented x3 Neck Neck: Yes supple Chest Chest palpation & inspection: normal inspection of the chest Resp Other: no wheeze Effort & Inspection: normal respiratory effort, no respiratory distress and no use of accessory muscles Auscultation: rhonchi and diminished lung sounds Cardio Heart sounds: S1 normal heart sound present and S2 normal heart sound present GI Palpation (GI): Soft to palpation Skin General skin exam: purpura Neuro General: patient oriented x3 Extrem General: No clubbing, No cyanosis and Yes edema Assessment & Plan Assessment & Plan (1) Aspiration pneumonia: Code(s): J69.0 - Pneumonitis due to inhalation of food and vomit Category: Medical Qualifiers: Aspiration pneumonia type: unspecified Laterality: unspecified laterality Lung location: unspecified part of lung Qualified Code(s): J69.0 - Pneumonitis due to inhalation of food and vomit (2) COPD (chronic obstructive pulmonary disease): Code(s): J44.9 - Chronic obstructive pulmonary disease, unspecified Category: Medical Qualifiers: COPD type: COPD with acute lower respiratory infection Qualified Code(s): J44.0 - Chronic obstructive pulmonary disease with (acute) lower respiratory infection (3) Pseudomonal pneumonia: Code(s): J15.1 - Pneumonia due to Pseudomonas Category: Medical Qualifiers: Laterality: unspecified laterality Lung location: unspecified part of lung Qualified Code(s): J15.1 - Pneumonia due to Pseudomonas (4) Pulmonary nodules: Code(s): R91.8 - Other nonspecific abnormal finding of lung field Category: Medical (5) Dyspnea: Code(s): R06.00 - Dyspnea, unspecified Category: Medical Qualifiers: Dyspnea type: shortness of breath Qualified Code(s): R06.02 - Shortness of breath (6) Bronchiectasis: Code(s): J47.9 - Bronchiectasis, uncomplicated Category: Medical Qualifiers: Bronchiectasis type: with acute lower respiratory infection Qualified Code(s): J47.0 - Bronchiectasis with acute lower respiratory infection (7) Congestive heart failure: Code(s): I50.9 - Heart failure, unspecified Category: Medical Qualifiers: Heart failure chronicity: chronic Heart failure type: unspecified Qualified Code(s): I50.9 - Heart failure, unspecified Plan continue inhaled Shy 28 days on, 28 days . Will mix in with xopenex start magic mouthwash Prednisone and Doxycycline if worsens Sputum cx continue Anoro Xopenex BID Ipratropium nebs BID hypertonic saline 3% for CPT Continue acapella valve Oxygen 2L with activity and with sleep F/U 3-4 months Orders: Orders Sputum Cult + Gram stain Today R91.1 - Solitary pulmonary nodule Medications: New doxycycline monohydrate 100 mg PO BID 28 tabs 0RF 14 days prednisone PO daily; Take 2 tabs daily x 5 days, then 1 tablet daily x 5 days 15 tabs 0RF 10 days Magic Mouthwash Diphen/Lido/Antacid 1:1:1 Lidocaine Viscous 2 % 80mL; diphenhydramine 12.5 mg/5 mL 80mL; aluminum-mag hydrox-simeth [id number]/5mL 80mL 10 mL PO BID 240 mL 6RF 28 days Magic Mouthwash Diphen/Lido/Antacid 1:1:1 Lidocaine Viscous 2 % 80mL; diphenhydramine 12.5 mg/5 mL 80mL; aluminum-mag hydrox-simeth [id number]/5mL 80mL 10 mL PO BID 28 days 240 mL 6RF Coding Level of Care Code Est Pt Level 4 (14306) Complex EM visit Add On G2211 Diagnoses Aspiration pneumonia, unspecified aspiration pneumonia type, unspecified laterality, unspecified part of lung J69.0 Aspiration pneumonia type: unspecified Laterality: unspecified laterality Lung location: unspecified part of lung Chronic obstructive pulmonary disease with acute lower respiratory infection J44.0 COPD type: COPD with acute lower respiratory infection Pneumonia due to Pseudomonas species, unspecified laterality, unspecified part of lung J15.1 Laterality: unspecified laterality Lung location: unspecified part of lung Pulmonary nodules R91.8 Shortness of breath R06.02 Dyspnea type: shortness of breath Bronchiectasis with acute lower respiratory infection J47.0 Bronchiectasis type: with acute lower respiratory infection Chronic congestive heart failure, unspecified heart failure type I50.9 Heart failure chronicity: chronic Heart failure type: unspecified Time Spent (min) 17
--- OUTSIDE RECORDS SUMMARY | 2024-12-17 15:26 | XMS_ITS | Encounter Summary ---
Author Organization [facility] Address [address] [place] [address] Care Team Providers Care Furniture Reproducer Name Role Phone Monica Arciniega MD Primary Care Provider [phone] Encounter Details Date Type Department Care Team (Late st Contact Info) Description 09/25/2024 Lab Requisition [facility] - Main Lab [address] [facility] [place] [address] Monica Arciniega MD [address] [place] [address] [place] [address] Cardiomyopathy in diseases classified elsewhere (CMS/HCC V24, [...] CBC auto differential (09/25/2024 12:30 PM EDT) [facility] WBC 6.9 4.8 - 10.8 K/mcL LAB HEMETOLOGY [facility] RBC 3.20(L) 3.80 - 4.80 M/mcL LAB HEMETOLOGY METHOD 09/25/2024 6:39 PM [facility] Hemoglobin 9.9(L) 11.5 - 16.0 g/dL LAB HEMETOLOGY METHOD 09/25/2024 6:39 PM [facility] Hematocrit 32.5(L) 35.0 - 47.0 % LAB HEMETOLOGY METHOD 09/25/2024 6:39 PM [facility] MCV 101.9(H) 79.0 - 98.0 FL LAB HEMETOLOGY METHOD 09/25/2024 6:39 PM [facility] MCH 31.0 27.0 - 32.0 pcg LAB HEMETOLOGY METHOD 09/25/2024 6:39 PM [facility] MCHC 30.5(L) 32.0 - 37.0 g/dL LAB HEMETOLOGY METHOD 09/25/2024 6:39 PM [facility] RDW 15.9(H) 11.0 - 15.0 % LAB HEMETOLOGY METHOD 09/25/2024 6:39 PM [facility] Platelets 188 130 - 400 K/mcL LAB HEMETOLOGY METHOD 09/25/2024 6:39 PM [facility] MPV 12.3(H) 7.0 - 11.0 FL LAB HEMETOLOGY METHOD 09/25/2024 6:39 PM [facility] NRBC 0.0 <1.0 % LAB HEMETOLOGY METHOD 09/25/2024 6:39 PM [facility] NRBC Absolute 0.00 <0.10 K/mcL LAB HEMETOLOGY METHOD 09/25/2024 6:39 PM [facility] Neutrophils Relative 65.6 % LAB HEMETOLOGY METHOD 09/25/2024 6:39 PM [facility] Lymphocytes Relative 22.4 % LAB HEMETOLOGY METHOD 09/25/2024 6:39 PM [facility] Monocytes Relative 5.1 % LAB HEMETOLOGY METHOD 09/25/2024 6:39 PM [facility] Eosinophils Relative 4.7 % LAB HEMETOLOGY METHOD 09/25/2024 6:39 PM [facility] Basophils Relative 1.5 % LAB HEMETOLOGY METHOD 09/25/2024 6:39 PM [facility] Immature Granulocytes Relative 0.7 % LAB HEMETOLOGY METHOD 09/25/2024 6:39 PM [facility] Neutrophils Absolute 4.50 1.50 - 7.00 K/mcL LAB HEMETOLOGY METHOD 09/25/2024 6:[address] [facility] Lymphocytes Absolute 1.54 1.00 - 5.00 K/mcL LAB HEMETOLOGY METHOD 09/25/2024 6:[address] [facility] Monocytes Absolute 0.35 0.20 - 1.00 K/[facility] LAB HEMETOLOGY METHOD 09/25/2024 6:[address] [facility] Eosinophils Absolute 0.32 0.00 - 0.50 K/[facility] LAB HEMETOLOGY METHOD 09/25/2024 6:[address] [facility] Basophils Absolute 0.10 0.00 - 0.20 K/[facility] LAB HEMETOLOGY METHOD 09/25/2024 6:[address] [facility] Immature Granulocytes Absolute 0.05(H) 0.00 - 0.03 K/[facility] LAB HEMETOLOGY METHOD 09/25/2024 6:[address] [facility] Blood Venous blood specimen / Unknown 09/25/2024 12:30 PM EDT 09/25/2024 6:06 PM EDT us Monica Arciniega MD LAB BLOOD ORDERABLES Final Re sult [facility] [address] [place] [address], * (ABNORMAL) Magnesium (09/25/2024 12:30 PM EDT) Magnesium 1.8(L) 1.9 - 2.6 mg/dL LAB CHEMISTRY METHOD 09/25/2024 10:[address] [facility] Blood Venous blood specimen / Unknown Venipuncture / Unknown 09/25/2024 12:30 PM EDT 09/25/2024 6:06 PM EDT us Monica Arciniega MD LAB BLOOD ORDERABLES Final Re sult [facility] [address] [place] [address], * (ABNORMAL) Comprehensive metabolic panel (09/25/2024 12:30 PM EDT) Sodium 140 133 - 145 mmol/L LAB CHEMISTRY METHOD 09/25/2024 10:[address] [facility] Potassium 4.2 3.5 - 5.5 mmol/L LAB CHEMISTRY METHOD 09/25/2024 10:44 PM [facility] Chloride 105 96 - 110 mmol/L LAB CHEMISTRY METHOD 09/25/2024 10:44 PM [facility] CO2 25 21 - 32 mmol/L LAB CHEMISTRY METHOD 09/25/2024 10:44 PM [facility] Anion Gap 10 3 - 11 LAB CHEMISTRY METHOD 09/25/2024 10:44 PM [facility] Glucose 146(H) 70 - 100 mg/dL LAB CHEMISTRY METHOD 09/25/2024 10:44 PM [facility] BUN 23 5 - 25 mg/dL LAB CHEMISTRY METHOD 09/25/2024 10:44 PM [facility] Creatinine 1.16(H) 0.50 - 1.10 mg/dL LAB CHEMISTRY METHOD [facility] eGFR 46(L) >=60 mL/min/1. 73m2 LAB CHEMISTRY METHOD 09/25/2024 10:44 PM [facility] Comment:Calculation based on the Chronic Kidney Disease Epidemiology Collaboration (CKD-EPI) equation refit without adjustment for race. BUN/Creatinine Ratio 19.8 LAB CHEMISTRY METHOD 09/25/2024 10:44 PM [facility] Calcium 8.1(L) 8.5 - 10.5 mg/dL LAB CHEMISTRY METHOD 09/25/2024 10:[address] [facility] AST (SGOT) 42 10 - 42 unit/L LAB CHEMISTRY METHOD 09/25/2024 10:[address] [facility] ALT (SGPT) 41 10 - 60 unit/L LAB CHEMISTRY METHOD 09/25/2024 10:[address] [facility] Alkaline Phosphatase 123(H) 42 - 121 unit/L LAB CHEMISTRY METHOD 09/25/2024 10:[address] [facility] Total Protein 5.8(L) 6.0 - 8.0 g/dL LAB CHEMISTRY METHOD 09/25/2024 10:[address] [facility] Albumin 2.7(L) 3.2 - 5.0 g/dL LAB CHEMISTRY METHOD 09/25/2024 10:44 PM [facility] Total Bilirubin 0.8 0.0 - 1.4 mg/dL LAB CHEMISTRY METHOD 09/25/2024 10:[address] [facility] Blood Venous blood specimen / Unknown Venipuncture / Unknown 09/25/2024 12:30 PM EDT 09/25/2024 6:06 PM EDT us Monica Arciniega MD LAB BLOOD ORDERABLES Final Re sult [facility] [address] [place] [address], documented in this encounter Visit Diagnoses Diagnosis Cardiomyopathy in diseases classified elsewhere (CMS/HCC V24, CMS/HCC V28) Pneumonia, unspecified organism Chronic obstructive pulmonary disease, unspecified (CMS/HCC V24, CMS/HCC V28) Restlessness and agitation Other signs and symptoms involving emotional state documented in this encounter Care Teams Furniture Reproducer Relationship Specialty Start Date End Date Monica Arciniega MD [address] [place] [address] [place] [address] PCP - General Internal Medicine 09/25/24 documented as of this encounter
--- OUTSIDE RECORDS SUMMARY | 2024-12-17 15:26 | XMS_ITS | Data Portability ---
Author Organization [facility] [employer] [facility], [facility] Address [address] [place] [address] Care Team Providers Care Apple Thinner Name Role Phone HIM CCA OTHER GIANNI [...] Assessment and Plan as documented by the Neck Pinner. Patient /daughter given the opportunity to ask questions. Advised if develops CP/severe SOB/turning blue/uncontrolle d n/v/d or black/bloody emesis or stool/ AMS/ syncope/ hi fever to call 911- daughter verbalized understanding of instructions to the medic [email or web address] Not available 12/12/2022 13:03:17 Plan of Treatment Reminders Order Date Submit Date Provider Last Modified By Organization Details Last Modified Time Details Appointments None recorded. Lab culture, urine 2024 025 [place] [facility] (Centralized Electronic Ordering - All Locations), Patient Can Go To The Location Of Their Choice, [id number] 20:05:53 [facility], [facility]stick [facility] [address] [place] [address], [phone] 5 21:38:07 rapid flu (A+B) 2024 025 [facility], [address] [place] [address], [phone] 5 21:32:52 rapid SARS CoV 2 Ag, QL IA, respiratory specimen 2024 025 [facility], [address] [place] [address], [phone] 5 21:32:55 culture, urine 2022 023 [place] [facility] (Centralized Electronic Ordering - All Locations), Patient Can Go To The Location Of Their Choice, [id number] 3 07:20:43 urinalysis, dipstick 2022 023 [email or web address] 0 [facility], [address] [place] [address], [phone] 3 13:03:23 glucose, fingerstick , blood 2022 023 [email or web address] 0 [facility], [address] [place] [address], [phone] 3 13:03:23 Referral None recorded. Procedures None [...] Go To The Location Of Their Choice, [id number] 12/14/2022 07:20:43 12/13/1912/12/2022 URINE CULTU RE special requests NONE Not Available [facility] (Centralized Electronic Ordering - All Locations) Patient Can Go To The Location Of Their Choice, [id number] 12/14/2022 07:20:43 12/13/19 23 12/14/2022 URINE CULTU RE culture Mixed bacter ial rowdy, indica tive of urogen ital contam inatio n. Not Available [facility] (Centralized Electronic Ordering - All Locations) Patient Can Go To The Location Of Their Choice, [address] 12/14/2022 07:20:43 12/13/19 23 12/14/2022 URINE CULTU RE report status FINAL 2022 Not Available [facility] (Centralized Electronic Ordering - All Locations) Patient Can Go To The Location Of Their Choice, [id number] 12/14/2022 07:20:43 12/13/19 23 12/12/2022 urina lysis , dipst ick Leukocytes 500 Not Available Main - [facility] [address] [place] [address], [address] [place] [address] 12/12/2022 12:57:33 12/13/19 23 12/12/2022 urina lysis , dipst ick Nitrite positi ve Not Available Main - Inst [address], [address] [place] [address] 12/12/2022 12:57:33 12/13/19 23 12/12/2022 urina lysis , dipst ick Urobilinogen 0.2 Not Available Main - [facility] [address] [place] [address], [address] [place] [address] 12/12/2022 12:57:33 12/13/19 23 12/12/2022 urina lysis , dipst ick Protein 30 Not Available Main - Ins [address], [address] [place] [address] 12/12/2022 12:57:33 12/13/19 23 12/12/2022 urina lysis , dipst ick pH 7.5 Not Available Main - Ins [address], [address] [place] [address] 12/12/2022 12:57:33 12/13/19 23 12/12/2022 urina lysis , dipst ick Blood + Not Available Main - Ins [address], [address] [place] [address] 12/12/2022 12:57:33 12/13/19 23 12/12/2022 urina lysis , dipst ick Specific [place] 1.005 Not Available Main - [facility] [address] [place] [address], [phone] 12/12/2022 12:57:33 12/13/19 23 12/12/2022 urina lysis , dipst ick Ketone neg Not Available Main - Ins [address], [address] 12/12/2022 12:57:33 12/13/19 23 12/12/2022 urina lysis , dipst ick Bilirubin neg Not Available Main - [facility] [address] [place] [address], [phone] 12/12/2022 12:57:33 12/13/19 23 12/12/2022 urina lysis , dipst ick Glucose neg Not Available Main - Ins [address], [address] [place] [address] 12/12/2022 12:57:33 12/13/19 23 12/12/2022 urina lysis , dipst ick Appearance cloudy Not Available Main - [facility] [address] [place] [address], [address] [place] [address] 12/12/2022 12:57:33 12/13/19 23 12/12/2022 urina lysis , dipst ick Color yellow Not Available Main - Ins [address], [address] [place] [address] 12/12/2022 12:57:33 12/13/19 23 12/12/2022 gluco se, finge rstic k, blood Blood Glucose: mg/dl 190 Not Available Main - [facility] [address] [place] [address], [address] [place] [address] 12/12/2022 12:57:38 07/26/1907/29/2024 URINE CULTU RE,CO MPREH ENSIV E urine culture,comp rehensive Final report abnormal Not Available [facility] ([facility]) [address], [place], [address], 07/29/2024 10:05:35 07/26/1907/29/2024 URINE CULTU RE,CO MPREH ENSIV E result 1 Proteu s mirabi lis abnormal Susce ptibi lity profi le is consi stent with a proba ble ESBL. Multi -Drug Resis tant Organ ism Great er than 100,0 00 colon y formi ng units per mL Not Available [facility] ([facility]) [address] [facility] [address], [place], [address], 07/29/2024 10:05:35 07/26/19 25 07/29/2024 URINE CULTU [...] thopr im/Mitchell lfa R Not Available [facility] ([facility]) [address] [facility] [address], [place], [address], 07/29/2024 10:05:35 07/26/19 25 07/26/2024 rapid flu (A+B) Flu negati ve Not Available Main - [facility] [address] [place] [address], [phone] 07/26/2024 20:55:44 07/26/19 25 07/26/2024 rapid SARS CoV 2 Ag, QL IA, respi rator y speci men rapid SARS CoV 2 Ag, QL IA, respiratory specimen negati ve Not Available Main - [facility] [address] [place] [address], [phone] 07/26/2024 21:32:34 Result Notes None recorded. Medical Equipment None Reported. Allergies Allergen ID Allergen Name Allergen Category Reaction Reaction Severity Criticality Documentation Date Start Date Code Code System Note Provider Name and Address Organization Details Recorded Time 96568 mirtazapi ne medicatio n Not available Not available Not available 07/26/2024 92784 RxNorm Not Available [facility] - [employer] 5 12:24:54 45224 sertralin e medicatio n Not available Not available Not available 07/26/2024 97655 RxNorm Not Available [facility] - production 5 12:24:54 2695 cetirizin e medicatio n Not available Not available Not available 12/12/2022 72464 RxNorm Alexandria Shea MD [address] [facility], [place], [address], [facility] [employer] 12:51:29 2696 spironola ctone medicatio n Not available Not available Not available 12/12/2022 9997 Rx[facility] Available [facility] 12:24[facility]54 2697 carvedilo l medicatio n Not available Not available Not available 12/12/202257758 RxNorm Not Available [facility] 12:24:54 Medications Name Sig [...] Not Available Not Available No t Available ACSIANuch Verio Reflect Meter USE TO CHECK SUGARS DAILY active Not Available Not Available No t Available [employer] COVID-19 Ag Self Test kit FOLLOW PACKAGE DIRECTIONS active Not Available Not Available N ot Available Vitals Date Recorded Respiratory rate Heart rate Body temperature Oxygen saturation Oxygen saturation in Arterial blood by Pulse oximetry Systolic And Diastolic Provider Name and Address Organization Details Last Updated DateTime 5 18 /min 62 /min 98.4 [degF] 97 % 97 % 144/88 mm[Hg] Not Available [employer] 5 20:33:01 Date Recorded Body weight Provider Name an d Address Organization Details Last Updated DateTime 12/12/2022 76172.6 g Jose Martin Shelton [address] [place] [address],[address], [place], [address], [place] - [employer] [facility] 12/12/2022 13:03:46 Date Recorded Heart rate Body temperature Respiratory rate Oxygen saturation Oxygen saturation in Arterial blood by Pulse oximetry Body temperature Heart rate Oxygen saturation Oxygen saturation in Arterial blood by Pulse oximetry Body weight Respiratory rate Systolic And Diastolic Systolic And Diastolic Provider Name and Address Organization Details Last Updated DateTime 3 92 /min 97.9 [degF] 14 /min 99 % 99 % 97.9 [degF] 92 /min 99 % 99 % 48004.5 52 g 14 /min 138/67 mm[Hg] 138/67 mm[Hg] Not Available [employer] 3 13:17:06 Date Recorded Body temperature Heart rate Oxygen saturation Oxygen saturation in Arterial blood by Pulse oximetry Respiratory rate Systolic And Diastolic Provider Name and Address Organization Details Last Updated DateTime 2 97.8 [degF] 97 /min 97 % 97 % 18 /min 114/76 mm[Hg] Not Available [employer] 2 13:50:19 Social History None recorded. Functional Status None recorded. Mental Status None recorded. Family History Nothing Reported. Medical History No medical history recorded. Gynecological HistoryNo gynecological history recorded. Obstetrics History GPAL:G 0 P 0 0 0 0 Past Encounters Encounter ID Performer Location Encounter Start Date Encounter Closed Date Diagnosis/Indication Diagnosis SNOMED-CT Code Diagnosis ICD10 Code Diagnosis Note [id number] Jacobo Disla MD [facility] [employer] [address] [place] [phone] 03/08/2022 13:34:54 03/11/2022 16:53:14 Wound of skin 319856684 T14.8XXA [id number] Alexandria Shea MD Main - [facility] [address] [place] [phone] 12/12/2022 12:48:46 12/13/2022 10:47:07 Urinary symptoms 678218977 R39.9 recurrent uti. Pat has tolerated cefpodoxim e well in the past per daughter- advised doxycyclin e likely chosen at last d/c due to concomitan t pneumonia- would like to avoid quinolones in elderly patient on eliquis if possible-a dvised will check culture and if sensitivit ies indicate another abx required will call in different RX when results return in a few days [id number] CARLOS LOUIE MD Main - [facility] [address] [place] [phone] 07/26/2024 20:17:44 07/27/2024 09:55:15 Urinary symptoms 805831063 R39.9 Evaluation in the field was performed by my heeler colleague, as noted above, I provided real-time [...] on room air at rest, Temperatur e: 98.4 FExam: Alert and oriented, no acute distressMe ntal status at baselineLu ngs clear to auscultati on bilaterall yNo lower extremity edema per heeler examUA: Positive for leukocytes , ketones, and [...] Recorded Advance Directives Directive None Recorded Payers Insurance Date Sequence Insurance Name Policy Number Policy Salcido Covered Member ID Salcido Member ID Guarantor Name 12/12/2022 1 [facility] - DOS PRIOR TO 2022 - DUAL ELIGIBLE (MEDICARE REPLACEMENT/ADV ANTAGE - HMO) Jenifer Mercado [id number] Jenifer Mercado 07/26/2024 1 [facility] - DOS ON OR AFTER 2022 - DUAL ELIGIBLE - ALF OPTIONS AND ONE CARE (MEDICARE REPLACEMENT/ADV ANTAGE - HMO) Jenifer Mercado [id number] Jenifer Mercado Notes Date Note Type Note [...] Comments: Members dtr calling to place an [facility] referral. Mom with paper thin skin, and on blood thinners. She was getting up to go to the bathroom, she turned her walker and hit her left ankle. Site is about the size of quarter, area has been bleeding off/on since 3am. Daughter has put gauze, triple abx ointment and wrap. Would like area assessed. Jacobo Disla MD [address] [facility], [place], [address], [employer] 03/08/2022 13:59:24 12/12/2022 text/html CRC Nursing Assessment: [...] .................. .................. .................. .................. .................. .................. ...... Neck Pinner Note From Gavin Snow: Pt's daughter suspects [...] .................. ............... Disposition: Fulfilled Alexandria Shea MD [address] [place] [address],[address], [place], [address], [employer] 12/12/2022 13:35:09 07/26/2024 text/html CRC Nurse Triage Notes (Marley Dougherty - RN): Reason For Request: Possible uti, and increased confusion. Wheesing in lungs, Chief Complaints: Urinary catheter/nephrosto my tube problems PMH: Hypertension, Coronary Artery Disease, COPD/Asthma, Congestive Heart Failure, Arrhythmias (e.g., Atrial Fibrillation), Diabetes Mellitus Type 2 PMH Reviewed at 07/26/2024 - 12:24 Allergies Reviewed at 07/26/2024:24 Comments: Visiting nurse [...] s/s and seek emergency treatment if needed. Neck Pinner Organization Information for Gus Oseguera [employer] Name: [employer]. Address: [address] [place] [id number], Sole Stapler Welt: Aaron ANGELES No.: [id number] Neck Pinner POC Test Results from Gus Oseguera Urine Dipstick (20:34:22) Urine leukocytes: +++ JOSE Urine nitrites: - NIT Urine urobilinogen: - URO Urine protein: - PRO Urine pH: 5 pH Urine blood: + BLO Urine specific gravity: 1.000 SG Urine ketones: + KET Urine bilirubin: - NOELLE Urine glucose: - GLU .................. .................. .................. .................. .................. .................. .................. ............... Neck Pinner Note From Gus Oseguera: Dispatched to the [...] - for nitrates. Culture obtained for lab. [facility] consulted. Rapid covid/flu (-). Red flags discussed. ALL times are approx. .................. .................. .................. .................. .................. .................. .................. ............... [facility] Consulted: Carlos Louie .................. .................. .................. .................. .................. .................. .................. ............... Disposition: Deandre LOUIE MD [address] [facility], [place], [address], [employer] 07/26/2024 21:33:38 OBGyn Episode No OBEpisode recorded.
--- OUTSIDE RECORDS SUMMARY | 2024-12-17 15:26 | XMS_ITS | Clinical Summary ---
Author Organization [facility] P.. Address [address] [address] Phone Care Team Providers Care Industrial Sweeper Cleaner Name Role Phone Unavailable Primary Care Provider [...] Take 40 mg by mouth 3 Active acetaminophen (Tylenol) 325 MG tablet Take 325 mg by mouth 5 Active metoprolol succinate XL (TOPROL-XL) 100 MG 24 hr tablet Take 100 mg by mouth 1 (one) time each day 5 Active QUEtiapine (SEROquel) 50 MG tablet Take 50 mg by mouth every night 5 Active tobramycin (BETHKIS) 300 MG/4ML nebulizer solution Inhale 300 mg 5 Active valsartan (DIOVAN) 40 MG tablet Take 40 mg by mouth 5 Active potassium chloride (KLOR-CON) 20 MEQ packet Take 20 mEq by mouth in the morning and 20 mEq in the evening. Active Active Problems Problem Noted Date Diagnosed [...] Date Last Done Comments Influenza Vaccine (#1) 2025 04/26/2017 Pneumococcal Vaccine: 50+ Years Completed 04/26/2017, 12/23/2014 Hepatitis B Vaccine Aged Out No longe r eligible based on patient's age to complete this topic Insurance [facility] MCR ([id number]) SANDY WRIGHT [id number] [facility] ([id number]) SANDY WRIGHT [id number]
== END 2024-12-17 15:04 | disposition home or self-care (01) ==
LOC: HO.HPS 14:37
PROVIDERS: PCP Internal Medicine; Visit Provider Hospitalist
DX: J69.0 Pneumonitis due to inhalation of food and vomit (principal); J44.0 Chronic obstructive pulmonary disease with (acute) lower respiratory infection; J15.1 Pneumonia due to Pseudomonas; R91.8 Other nonspecific abnormal finding of lung field; R06.02 Shortness of breath; J47.0 Bronchiectasis with acute lower respiratory infection; I50.9 Heart failure, unspecified
CPT/HCPCS: 99214; G2211

== ENCOUNTER → 2024-12-17 14:36 | Outpatient (BNVA) | payer OTHER, SELFPAY | PROVIDERS: PCP Internal Medicine; Visit Provider Hospitalist | DX: J44.0 Chronic obstructive pulmonary disease with (acute) lower respiratory infection (principal); J69.0 Pneumonitis due to inhalation of food and vomit; J15.1 Pneumonia due to Pseudomonas; R91.8 Other nonspecific abnormal finding of lung field; R06.02 Shortness of breath; J47.0 Bronchiectasis with acute lower respiratory infection; I50.9 Heart failure, unspecified | CPT/HCPCS: 99212 ==

== ENCOUNTER 2025-01-31 13:29 | Outpatient (REF) | payer OTHER, SELFPAY | END 2025-01-31 13:30 | disposition home or self-care (01) | LOC: HO.LNP 13:29 | PROVIDERS: PCP Internal Medicine; Visit Provider Hospitalist | DX: J44.0 Chronic obstructive pulmonary disease with (acute) lower respiratory infection (principal); J15.1 Pneumonia due to Pseudomonas; R91.8 Other nonspecific abnormal finding of lung field; R06.00 Dyspnea, unspecified; R06.02 Shortness of breath; J47.9 Bronchiectasis, uncomplicated; I50.9 Heart failure, unspecified; Z87.891 Personal history of nicotine dependence | CPT/HCPCS: 87070; 87077; 87186; 87205; 94640; 99212 ==

== ENCOUNTER 2025-01-31 13:29 | Outpatient (AMB) | payer OTHER, SELFPAY ==
--- OUTSIDE RECORDS SUMMARY | 2025-01-25 23:59 | XMS_ITS | Continuity of Care Document ---
Author Organization [facility] Address [address] [place] [address]- Care Team Providers Care Sewage Disposal Engineer Name Role Phone Monica Arciniega MD Primary Care Physician En[place] [facility] [place](s): 12/26/24 - 01/25/25 [facility] [address] [place] [id number]- Attending Physician: Nichol Cooper Admitting Physician: AdmtrNichol Referring Physician: Admtr, [id number] Encounter Type: Triage Allergies, Adverse Reactions, Alerts Substance Criticality Severity Reaction Reaction Severity Status spironolactone Activ e carvedilol Active Heparin Sodium 1 Act nadja mirtazapine Active Zoloft Active Chocolate Active 1Patient developed hemorrhagic bullae. Immunizations Given and Recorded Vaccine Date Status Refusal Reason SARS-CoV-2 (COVID-19) mRNA-1273 vaccine 06/16/21 R ecorded SARS-CoV-2 (COVID-19) mRNA BNT-162b2 vac 04/06/21 Recorded SARS-CoV-2 (COVID-19) mRNA BNT-162b2 vac 09/12/20 Recorded SARS-CoV-2 (COVID-19) mRNA BNT-162b2 vac 08/22/20 Recorded rabies vaccine, human diploid cell 02/06/19 Given rabies vaccine, human diploid cell 01/30/19 Given rabies vaccine, human diploid cell 01/26/19 Given rabies vaccine, human diploid cell 01/23/19 Given Medications Acidophilus oral capsule 1 capsule, By Mouth, Daily Start Date: 09/19/23 Status: Ordered Repeat number: 1 albuterol 90 mcg/inh inhalation powder 2 puffs, Inhalation, Every 6 hours, PRN Wheezing/Shortness of Breath, 0 Refills, Maintenance, 07/05/22 4:51:00 PM EST, Partial fill upon patient request if the prescription is for a schedule II opioiddrug. Start Date: 07/05/22 Status: Ordered Repeat number: 1 Anoro Ellipta 62.5 mcg-25 mcg/inh inhalation powder 1 puffs, Inhalation, Daily, # 30 each, 1 Refills, Maintenance, 09/10/24 1:08:00 PM EDT, Powder, [facility], 1 puffs Inhalation Daily, 150, cm, 09/10/24 7:40:00 EDT, Height, 65.2, kg, 08/11/24 22:53:00 EST, Dry Weight Start Date: 09/10/24 Status: Ordered Quantity: 30.0 Unit: each Repeat number: 2 aspirin 81 mg oral delayed release tablet 81 mg, By Mouth, Daily, # 30 tablet, Refills 0, Tot. Refills 0, Maintenance, 11/01/22 1:53:00 PM EDT, Route to Pharmacy Electronically, [facility], Partial fill upon patient request if the prescription is for a schedule II opioid drug., 150, cm, 11/01/22 0:00:00 EDT, Height, 58.7, kg, 10/25/22 2:28:00 EDT, Dry Weight Start Date: 11/01/22 Status: Ordered Quantity: 30.0 Unit: tablet Repeat number: 1 Flonase 50 mcg/inh nasal spray 1 sprays = 50 mcg, Nares, Both, 2 times a day, # 16 Gm, 0 Refills, Maintenance, 10/04/18 9:33:14 AM EDT, Nasal [place], [facility], 1 sprays Nares, Both 2 times a day,x7 days Start Date: 10/04/18 Stop Date: 10/11/18 Status: Ordered Quantity: 16.0 Unit: g Repeat number: 1 ipratropium 500 mcg/2.5 mL inhalation solution Refills 0, Maintenance, 10/10/24 1:45:00 PM EDT Start Date: 10/10/24 Status: Ordered Repeat number: 1 levalbuterol 1.25 mg/3 mL inhalation solution 3 mL = 1.25 mg, Neb, 3 times a day, # 270 mL, 0 Refills, Maintenance, 11/01/22 2:08:00 PM EDT, Solution, [facility], Partial fill upon patient request if the prescription is for a schedule II opioid drug., 150, cm, 11/01/22 0:00:00 EDT, Height, 58.7, kg, 10/25/22 2:28:00 EDT, Dry Weight Start Date: 11/01/22 Status: Ordered Quantity: 270.0 Unit: mL Repeat number: 1 Lipitor 40 mg oral tablet 1 tablet = 40 mg, By Mouth, Daily at bedtime, # 30 tablet, 0 Refills, Maintenance, 11/01/22 1:53:00 PM EDT, Tablet, [facility], Partial fill upon patient request if the prescription is for a schedule II opioid drug., 150, cm, 11/01/22 0:00:00 EDT, Height, 58.7, kg, 10/25/22 2:28:00 EDT, Dry Weight Start Date: 11/01/22 Status: Ordered Quantity: 30.0 Unit: tablet Repeat number: 1 metoprolol 100 mg oral tablet, extended release 100 mg, By Mouth, Daily, # 30 tablet, Refills 1, Tot. Refills 1, Maintenance, 09/10/24 1:09:00 PM EDT, Route to Pharmacy Electronically, [facility], Partial fill upon patient request if the prescription is for a schedule II opioid drug., 150, cm, 09/10/24 7:40:00 EDT, Height, 65.2, kg, 08/11/24 22:53:00 EST, Dry Weight Start Date: 09/10/24 Status: Ordered Quantity: 30.0 Unit: tablet Repeat number: 2 metoprolol 50 mg oral tablet 50 mg, 1, tablet, By Mouth, Daily, # 60 tablet, Refills 0, Maintenance, 12/26/24 2:58:00 PM EDT, Partial fill upon patient request if the prescription is for a schedule II opioid drug. Start Date: 12/26/24 Status: Ordered Quantity: 60.0 Unit: tablet Repeat number: 1 montelukast 10 mg oral tablet 10 mg, 1, tablet, By Mouth, Daily, Refills 0, Maintenance, 02/28/22 1:30:00 PM EDT, Partial fill upon patient request if the prescription is for a schedule II opioid drug. Start Date: 02/28/22 Status: Ordered Repeat number: 1 Multivitamin 1 tablet, By Mouth, Daily, Maintenance, 08/11/24 6:18:00 PM EST, Partial fill upon patient request ifthe prescription is for a schedule II opioid drug. Start Date: 08/11/24 Status: Ordered Repeat number: 1 pantoprazole 40 mg oral delayed release tablet 1 tablet = 40 mg, By Mouth, Daily, Maintenance, 08/11/24 6:14:00 PM EST, EC Tablet Start Date: 08/11/24 Status: Ordered Repeat number: 1 Potassium Chloride (Eqv-K-Tab) 20 mEq oral tablet, extended release 1 tablet = 20 mEq, By Mouth, Daily Start Date: 02/09/23 Status: Ordered Repeat number: 1 QUEtiapine 50 mg oral tablet 1 tablet = 50 mg, By Mouth, Daily at bedtime Start Date: 08/11/24 Status: Ordered Repeat number: 1 tobramycin 75 mg/mL inhalation solution 4 mL = 300 mg, Neb, 2 times a day, Maintenance, 08/11/24 6:23:00 PM EST, Solution, Partial fill upon patient request if the prescription is for a schedule II opioid drug. Start Date: 08/11/24 Status: Ordered Repeat number: 1 torsemide 20 mg oral tablet See Instructions, take 20mg twice daily, alternating with 20mg daily on the other days, # 180 tablet, 3 Refills, Maintenance, 12/26/24 3:06:00 PM EDT, Tablet, [id number], Partial fillupon patient request if the prescription is for a schedule II opioid drug., 150, cm, 12/26/24 14:56:00 EDT, Height, 65.2, kg, 08/11/24 22:53:00 EST, Dry Weight Start Date: 12/26/24 Status: Ordered Quantity: 180.0 Unit: tablet Repeat number: 4 Tylenol 325 mg oral tablet 975 mg, By Mouth, 3 times a day, PRN, # 50 tablet, Refills 0, Tot. Refills 0, Maintenance, Pain , Mild, 09/10/24 1:10:00 PM EDT, Route to Pharmacy Electronically, [facility], Partial fillupon patient request if the prescription is for a schedule II opioid drug., 150, cm, 09/10/24 7:40:00 EDT, Height, 65.2, kg, 08/11/24 22:53:00 EST, Dry Weight Start Date: 09/10/24 Status: Ordered Quantity: 50.0 Unit: tablet Repeat number: 1 valsartan 40 mg oral tablet 40 mg, By Mouth, Daily, # 30 tablet, Refills 1, Tot. Refills 1, Maintenance, 09/10/24 1:10:00 PM EDT,Route to Pharmacy Electronically, [facility], Partial fill upon patient request if the prescription is for a schedule II opioid drug., 150, cm, 09/10/24 7:40:00 EDT, Height, 65.2, kg, 08/11/24 22:53:00 EST, Dry Weight Start Date: 09/10/24 Status: Ordered Quantity: 30.0 Unit: tablet Repeat number: 2 Problem List Condition Confirmation Course Effective Dates Status H ealth Status Informant Anemia associated with acute blood loss Confirmed Active CAD (coronary artery disease) Confirmed Active COPD mixed type Confirmed Active Disorders of Magnesium Metabolism Confirmed Active Dyspepsia Confirmed Active Shortness of breath Confirmed Active HTN (hypertension) Confirmed Active Hypervolemia Confirmed Active Hypokalemia, excessive renal losses Confirmed Active Hypotension Confirmed Active Other Abnormal Blood Chemistry Confirmed Active Other and Unspecified Hyperlipidemia Confirmed Active Other Dyspnea and Respiratory Abnormality Confirmed Active Paroxysmal atrial fibrillation Confirmed Active Thrombocytopenia Confirmed Active Unspecified Essential Hypertension Confirmed Active Social History Social History Type Response Smoking Status Former smoker; Tobac co user in household: No entered on: 09/30/15 Sex Sex Representation Female (finding) EKG study * Event Display: EKG Authored Date: Laboratory * Event Display: Non BH Lab Results Authored Date: * Event Display: Non BH Lab Results Authored Date: * Event Display: Non BH Lab Results Authored Date: Note * Kelton Coto MD: REVIEW Event Display: Cardiac Surgery Office Note, Non-BH Authored Date: Patient Care team information Care Team Personnel Name: Sophia Varela RN Position: [facility] RN Member Role: Primary Care Nurse Name: Monica Arciniega MD Position: [facility] Outreach Member Role: PCP Address: [address] [place] [address]- Telecom: Name: Pratik Parrish RN Position: [facility] RN Member Role: Primary Care Nurse Name: Mireille Thornton RN Position: [facility] RN Member Role: Primary Care Nurse Name: Radha Neves RN Position: [facility] RN Member Role: Primary Care Nurse Name: Radha Arreaga Position: [facility] RN Supv Member Role: Primary Care Nurse Name: Skylar Munoz RN Position: [facility] SN RN Member Role: Primary Care Nurse Name: Allison Fuentes RN Position: [facility] ED RN W/OE and Tasks Member Role: Primary Care Nurse Name: Jeanie Stanford RN Position: [facility] RN Member Role: Primary Care Nurse Name: Poornima Elmore RN Position: [facility] RN Member Role: Primary Care Nurse Name: Delmy Mccoy RN Position: [facility] RN Member Role: Primary Care Nurse Name: Josie Roy RN Position: [facility] RN Member Role: Primary Care Nurse Name: Ella Pantoja RN Position: [facility] Executive Casino Host Member Role: Primary Care Nurse Name: Kathy Gilmore RN Position: [facility] RN Member Role: Primary Care Nurse Name: Faye Campbell RN Position: [facility] OB RN Member Role: Primary Care Nurse Name: Sagrario Lazar RN Position: [facility] SN RN Member Role: Primary Care Nurse Name: Iron Edouard RN Position: [facility] RN Member Role: Primary Care Nurse Name: Matt Riggs RN Position: [facility] SN RN Member Role: Primary Care Nurse Name: Barbi Robins RN Position: [facility] ED RN W/OE and Tasks Member Role: Primary Care Nurse Name: Katie Box RN Position: [facility] RN Member Role: Primary Care Nurse Name: Aisha Melgar RN Position: [facility] SN RN Member Role: Primary Care Nurse Name: Jia Peterson RN Position: [facility] RN Member Role: Primary Care Nurse Name: Hernan Smith RN Position: [facility] RN Member Role: Primary Care Nurse Name: Elli Tse RN Position: S RN Member Role: Primary Care Nurse Name: Tamara Smith RN Position: S RN Member Role: Primary Care Nurse Name: Marley Melara RN Position: S RN Member Role: Primary Care Nurse Name: Ethan Siddiqui MD Position: [facility] Outreach Member Role: Lifetime Consulting Physician Address: [address] [facility] [address] Telecom: Name: Frandy Mazariegos MD Position: [facility] Renal MD Member Role: Lifetime Consulting Physician Address: [address] [facility] [address] Telecom: Name: Chi Joseph RN Position: [facility] RN Member Role: Primary Care Nurse Name: Lisa Mendoza RN Position: [facility] RN Member Role: Primary Care Nurse Name: Sujata Dobbs RN Position: [facility] SN RN Member Role: Primary Care Nurse Name: Nikolas Fernandes MD Position: [facility] Renal MD Member Role: Lifetime Consulting Physician Address: [address] [facility] [address] Telecom: Name: iMndy Lundberg RN Position: S RN Member Role: Primary Care Nurse Name: Franchesca Veloz RN Position: S RN Member Role: Primary Care Nurse Name: Walter Treviño RN Position: [facility] RN Member Role: Primary Care Nurse Name: Ladan Leon RN Position: [facility] RN Member Role: Primary Care Nurse Name: Sloane Lau RN Position: [facility] RN Member Role: Primary Care Nurse Care Team Related Persons Name: LYDIA JAMISON Name: FRANCE HAQ Insurance Providers Guarantor name: CHANTALE [employer] Plan Information #: 1 Payer: [facility] [employer] Payer Identifier: RADHA Member Number: [id number] Group Number: [id number] Subscriber Identifier: [id number] Relationship to Subscriber: self Coverage Type: Medicare Managed Care (Includes Medicare Advantage Plans) Coverage Verification Date: NA Telecom: NA Address: NA
--- OUTSIDE RECORDS SUMMARY | 2025-01-31 13:32 | XMS_ITS | Clinical Summary ---
Author Organization [facility] Address [address] [address] Phone Care Team Providers Care Surveying Teacher Name Role Phone Unavailable Primary Care [...] patient's age to complete this topic Insurance [facility] MCR ([id number]) SANDY WRIGHT [id number] [facility] ([id number]) SANDY WRIGHT [phone]
--- OUTSIDE RECORDS SUMMARY | 2025-01-31 13:32 | XMS_ITS | Encounter Summary ---
Author Organization [facility] Address [address] [place] [address] Care Team Providers Care Molding Plasterer Name Role Phone Monica Arciniega MD Primary Care Provider [phone] Encounter Details Date Type Department Care Team (Late st Contact Info) Description 09/25/[address] [facility] [address] [facility] [place] [address] Monica Arciniega MD [address] [place] [address] [place] [address] Cardiomyopathy in diseases classified elsewhere (CMS/HCC V24, [...] CBC auto differential (09/25/2024 12:30 PM EDT) [facility] WBC 6.9 4.8 - 10.8 K/mcL LAB HEMETOLOGY [facility] RBC 3.20(L) 3.80 - 4.80 M/mcL LAB HEMETOLOGY METHOD 09/25/2024 6:39 PM [facility] Hemoglobin 9.9(L) 11.5 - 16.0 g/dL LAB HEMETOLOGY METHOD 09/25/2024 6:39 PM [facility] Hematocrit 32.5(L) 35.0 - 47.0 % LAB HEMETOLOGY METHOD 09/25/2024 6:39 PM [facility] MCV 101.9(H) 79.0 - 98.0 FL LAB HEMETOLOGY METHOD 09/25/2024 6:39 PM [facility] MCH 31.0 27.0 - 32.0 pcg LAB HEMETOLOGY METHOD 09/25/2024 6:39 PM [facility] MCHC 30.5(L) 32.0 - 37.0 g/dL LAB HEMETOLOGY METHOD 09/25/2024 6:39 PM [facility] RDW 15.9(H) 11.0 - 15.0 % LAB HEMETOLOGY METHOD 09/25/2024 6:39 PM [facility] Platelets 188 130 - 400 K/mcL LAB HEMETOLOGY METHOD 09/25/2024 6:39 PM [facility] MPV 12.3(H) 7.0 - 11.0 FL LAB HEMETOLOGY METHOD 09/25/2024 6:39 PM [facility] NRBC 0.0 <1.0 % LAB HEMETOLOGY METHOD 09/25/2024 6:39 PM [facility] NRBC Absolute 0.00 <0.10 K/mcL LAB HEMETOLOGY METHOD 09/25/2024 6:39 PM [facility] Neutrophils Relative 65.6 % LAB HEMETOLOGY METHOD 09/25/2024 6:39 PM [facility] Lymphocytes Relative 22.4 % LAB HEMETOLOGY METHOD 09/25/2024 6:39 PM [facility] Monocytes Relative 5.1 % LAB HEMETOLOGY METHOD 09/25/2024 6:39 PM [facility] Eosinophils Relative 4.7 % LAB HEMETOLOGY METHOD 09/25/2024 6:39 PM [facility] Basophils Relative 1.5 % LAB HEMETOLOGY METHOD 09/25/2024 6:39 PM [facility] Immature Granulocytes Relative 0.7 % LAB HEMETOLOGY METHOD 09/25/2024 6:39 PM [facility] Neutrophils Absolute 4.50 1.50 - 7.00 K/mcL LAB HEMETOLOGY METHOD 09/25/2024 6:[address] [facility] Lymphocytes Absolute 1.54 1.00 - 5.00 K/mcL LAB HEMETOLOGY METHOD 09/25/2024 6:[address] [facility] Monocytes Absolute 0.35 0.20 - 1.00 K/[facility] LAB HEMETOLOGY METHOD 09/25/2024 6:[address] [facility] Eosinophils Absolute 0.32 0.00 - 0.50 K/[facility] LAB HEMETOLOGY METHOD 09/25/2024 6:[address] [facility] Basophils Absolute 0.10 0.00 - 0.20 K/[facility] LAB HEMETOLOGY METHOD 09/25/2024 6:[address] [facility] Immature Granulocytes Absolute 0.05(H) 0.00 - 0.03 K/[facility] LAB HEMETOLOGY METHOD 09/25/2024 6:[address] [facility] Blood Venous blood specimen / Unknown 09/25/2024 12:30 PM EDT 09/25/2024 6:06 PM EDT us Monica Arciniega MD LAB BLOOD ORDERABLES Final Re sult [facility] [address] [place] [address], * (ABNORMAL) Magnesium (09/25/2024 12:30 PM EDT) Magnesium 1.8(L) 1.9 - 2.6 mg/dL LAB CHEMISTRY METHOD 09/25/2024 10:[address] [facility] Blood Venous blood specimen / Unknown Venipuncture / Unknown 09/25/2024 12:30 PM EDT 09/25/2024 6:06 PM EDT us Monica Arciniega MD LAB BLOOD ORDERABLES Final Re sult [facility] [address] [place] [address], * (ABNORMAL) Comprehensive metabolic panel (09/25/2024 12:30 PM EDT) Sodium 140 133 - 145 mmol/L LAB CHEMISTRY METHOD 09/25/2024 10:[address] [facility] Potassium 4.2 3.5 - 5.5 mmol/L LAB CHEMISTRY METHOD 09/25/2024 10:44 PM [facility] Chloride 105 96 - 110 mmol/L LAB CHEMISTRY METHOD 09/25/2024 10:44 PM [facility] CO2 25 21 - 32 mmol/L LAB CHEMISTRY METHOD 09/25/2024 10:44 PM [facility] Anion Gap 10 3 - 11 LAB CHEMISTRY METHOD 09/25/2024 10:44 PM [facility] Glucose 146(H) 70 - 100 mg/dL LAB CHEMISTRY METHOD 09/25/2024 10:44 PM [facility] BUN 23 5 - 25 mg/dL LAB CHEMISTRY METHOD 09/25/2024 10:44 PM [facility] Creatinine 1.16(H) 0.50 - 1.10 mg/dL LAB CHEMISTRY METHOD [facility] eGFR 46(L) >=60 mL/min/1. 73m2 LAB CHEMISTRY METHOD 09/25/2024 10:44 PM [facility] Comment:Calculation based on the Chronic Kidney Disease Epidemiology Collaboration (CKD-EPI) equation refit without adjustment for race. BUN/Creatinine Ratio 19.8 LAB CHEMISTRY METHOD 09/25/2024 10:44 PM [facility] Calcium 8.1(L) 8.5 - 10.5 [...] g/dL LAB CHEMISTRY METHOD 09/25/2024 10:44 PM [facility] Total Bilirubin 0.8 0.0 - 1.4 mg/dL LAB CHEMISTRY METHOD 09/25/2024 10:[address] [facility] Blood Venous blood specimen / Unknown Venipuncture / Unknown 09/25/2024 12:30 PM EDT 09/25/2024 6:06 PM EDT us Monica Arciniega MD LAB BLOOD ORDERABLES Final Re sult [facility] [address] [place] [address], documented in this encounter Visit Diagnoses Diagnosis Cardiomyopathy in diseases classified elsewhere (CMS/HCC V24, CMS/HCC V28) Pneumonia, unspecified organism Chronic obstructive pulmonary disease, unspecified (CMS/HCC V24, CMS/HCC V28) Restlessness and agitation Other signs and symptoms involving emotional state documented in this encounter Care Teams Molding Plasterer Relationship Specialty Start Date End Date Monica Arciniega MD [address] [place] [address] [place] [address] PCP - General Internal Medicine 09/25/24 documented as of this encounter
[2025-01-31 13:42] VITALS: BP 108/62; PULSE 87; O2SAT 94
--- NOTE | 2025-01-31 13:42 | MHC.OFFVIS ---
Vital Signs 01/31/25 13:42 Height 4 ft 11 in BP 108/62 Blood Pressure Location Rt brachial Position Sitting Pulse 87 Pulse Source Pulse Oximeter Pulse Oximetry (%) 94 Oxygen Delivery Method Room Air Comment wheelchair bound Intake Visit Reasons: Congested, wheezing/no fevers Allergies carvedilol Allergy (Verified 12/17/24 14:43) Shortness of Breath sertraline (From Zoloft) Allergy (Verified 12/17/24 14:43) Shortness of Breath spironolactone Allergy (Verified 12/17/24 14:43) Shortness of Breath adhesive tape Adverse Reaction (Severe, Verified 12/17/24 14:43) skin tears ertapenem Adverse Reaction (Severe, Verified 12/17/24 14:43) Confusion mirtazapine Adverse Reaction (Severe, Verified 12/17/24 14:43) psychotic episode HPI Comments Details: The patient is an 84 year-old woman with known history of COPD along with chronic bronchitis due apparently has been in usual state health until for the last several months where her respiratory status has dramatically worsen. The patient has had numerous admissions in a short period of time. The patient states that she started developing worsening cough usually congested in nature. She has a hard time expectorating. Suddenly she developed significant respiratory distress with the family notices that she is decompensated very quickly. At that point EMS was called the. Usually the patient is found to be hypoxic and she is brought to the hospital. She has been admitted to normal now about 4 times in a [facility] about 2 times. Her sputum was positive for Pseudomonas aeruginosa and she was treated with ceftazidime. Ultimately she is treated and then subsequently is able to recover partially in that she is sent home. Usually the cycle restarts again. She has been having hard time since she does the hospital recently. They try sending another sputum culture but it was contaminated. In the office she was very congested. We were able to get a sputum sample and also very tenacious greenish in color and also smelling of Pseudomonas consistent with likely pseudomonal lower respiratory infections and pneumonia. The patient did received Xopenex with hypertonic saline with good response. She had been on DuoNeb but I am concerned that is drying up the mucus even more. Therefore will switch over to the Xopenex instead. I did review her CT scan of the chest done at [facility]. She has numerous pulmonary nodules in addition to thickened airways and some bronchiectatic looking airways. Therefore, the patient does have chronic airway disease now worsened by the fact that she is colonized with Pseudomonas. She has had multiple admissions to the hospital and therefore failing IV and oral antibiotics. The only option right now will be to start her inhaled tobramycin. she is already performing chest physical therapy with a flutter valve. 04/27/2023 the patient is here for a pulmonary follow-up visit. Since we last spoke she went back to the hospital. She was diagnosed with pneumonia was again placed on antibiotics. Again a course complicated with C diff colitis. 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 She was treated with p.o. vancomycin again. I explained to the patient and to the daughter that she needs to minimize antibiotic use because it will reasonable result in a very complicated abdominal process. The patient likely has a component of microaspiration likely aspiration pneumonias specially since pneumonias or mainly on the right side. She does have an increased amount of dementia and she is requiring additional care from the family. She is also falling asleep more regularly during the daytime. She is going to start her day program to see if this allows her to be more stimulated and more weight. In the meantime she is off the inhaled tobramycin. In view of her all her complications will go ahead and hold off the tobramycin for 4-6 weeks to see if there is improvement in her GI issues. She will continue with the current respiratory therapy With the Xopenex therapy. And will follow-up in 6 months. If the patient has any worsening symptoms she is to call the office for an earlier assessment. we also spoke briefly about goals of care. Talked about her code status. The patient currently is a full code we did talk about the concerns about her significant comorbidities and being too aggressive with her care. Therefore, I did recommend the patient talk to her daughter further about code status. 09/14/2023 the patient has a telehealth visit today. Overall she has been doing well. The weather spot so therefore she stayed home. She has not required any prednisone or antibiotics since we last spoke which is very reassuring. This is the longest stent of good health she has had. She is also participating in the day program where she is exposed to a lot of people and she has actually been doing very well with that as well. She continues her respiratory therapy with Xopenex. The patient has not required any other respiratory therapy. She continues use oxygen with good effect. She does complaint of some chest congestion and mucus. Explained to her that she does have chronic bronchitis and she will always make mucus. Although she needs to be monitoring closely the collar the consistency in the frequency of the mucus. If those were to worsen she will call nor for us to treat her for potential infection. 12/13/2023 the patient is here for a pulmonary follow-up visit. She was in her usual state health until the last week when she started developing worsening cough chest congestion. For another breath. Hard time expectorating. Moderate severity. Denied any fevers or chills. The mucus was colored. She does have history of Pseudomonas. At this start her on levofloxacin and also prednisone. Today she has already feeling a little better. Although the family is concerned that she has coming to the end of the treatment still congested and coughing although not as bad. The patient still has some rhonchi and wheezing on examination. I am concerned about the use of quinolones because of the possibility of tendonitis and also the risk of C diff colitis. At the same time the patient does have chronic airway disease with significant bronchiectasis. Therefore, I will give another 10 days but a low dose levofloxacin and a lower dose prednisone. He should continue with her CPT therapy. Continue with the nebulized therapy. She has been using the oxygen with good effect. Otherwise the patient is feeling a little bit better. Her last chest x-ray personally by me from 10/30/2023 with some chronic changes decreased lung volumes and some atelectasis at the bases. Further recommendation based on forthcoming data. The patient will follow-up in 3-4 months. 02/06/2024 the patient is here for sick visit. She has had worsening cough chest congestion. Moderate severity. The mucus is very tenacious. Sometimes she has a hard time clearing her secretions. She did respond well to the levofloxacin. The patient has had history of Pseudomonas in the sputum. Likely this is related to Pseudomonas at this time. Although, she does also have a history of C diff colitis. Therefore, the patient understands that using quinolones to treat her underlying respiratory infection can lead to C diff colitis. Will go ahead and pretreat her with Flagyl to minimize risk. The patient ultimately has significant bronchiectasis. She will benefit from inhaled tobramycin to be provided in order to treat the Pseudomonas infection. Therefore, will go ahead and send a sputum culture at this time. she will start the antibiotics continue with her chest physical therapy. She should be using her Acapella valve and also her nebulized therapy. Right now she does not having significant wheezing therefore will hold off on any prednisone. The patient has any worsening symptoms she will call for further evaluation. 03/18/2024 the patient is here for a pulmonary follow-up visit. Overall she is doing better since we last saw her. She did complete the 28 days of the inhaled tobramycin. She does have a hard time with it. Gives her bad taste and she does not like to take it. She is considering not continuing the therapy. She is going to have now 20 days off the medicine which I find helpful for her to take a break. But I explained to the patient did Pseudomonas will return in her respiratory symptoms will return subsequently after that and it will continue to worsen. Therefore, we do not have a lot of alternative options in the inhaled SHY although does have some adverse symptoms it is effective treating the Pseudomonas. In the meantime she is going to continue using respiratory therapy and chest PT to clear mucus. On exam she does have some wheezing. Hold off on any prednisone at this time. If her symptoms worsen she will call. She is also monitoring closely her weight. She has gained weight but although she is eating more. Does not appear to be volume overloaded at this time. She will continue with current dose of diuretics. Will follow-up in 3-4 months. The patient has any worsening symptoms prior to that she will call for an earlier assessment. 06/24/2024 the patient is here for sick visit. She chest congestion. She was evaluated by loss month. She was. The patient is still having significant chest congestion. She started. She does complaint of abdominal pain when taking it. Primarily because she has coughing a lot. Seems that she does expectorate better when she has in the inhaled SHY. On exam she does have some rhonchi wheezing and diminished breath sounds. Will go ahead and stop her SHY for now to her belly pain gets better. 07/18/2024 the patient is here for a pulmonary follow-up visit. Since we last spoke she had worsening symptoms and ended up going to the ER. There she was admitted to the hospital. She had an episode of agitation and respiratory distress and the patient was intubated for short time and transferred to the ICU. She was quickly liberated from the ventilator. And she was given IV antibiotics. The patient was diuresed and discharged. Although she continues have a hard time with her breathing. She has significant chest congestion. She has also become significantly weak after the prolonged hospitalizations and all the steroids and paralytics. She can not tolerate the inhaled tobramycin well. Irritate her throat. She also had a modified barium swallow demonstrating some laryngeal penetration but no overt aspiration. She did have a CT scan of the chest which I personally reviewed demonstrating some airspace disease in pneumonitis in the right hemithorax suggesting indeed of micro aspirations and aspirations resulting in pneumonitis. She does have a dysphagia diet which she should continue. For now though will start her on doxycycline to see if this provides some relief specially if there is any evidence of stenotrophomonas. In addition to that will go ahead and place her on small dose of prednisone 10 mg to see if this provides her relief and stability of disease. In addition to that the patient will continue the inhaled tobramycin but she will actually mixed in with the albuterol to see if she can tolerated better in that fashion. Will follow-up in 1-2 months. If she has any issues prior to that she will call for an earlier assessment. 10/01/2024 the patient is here for a pulmonary follow-up visit. The patient has had a very eventful month. Initially was hospitalized here for IV antibiotics. Unfortunately she was sent home in her PICC line started leaking she called to see about getting affixed and was recommended that she go to [facility] because we did not have Radiology available. When she went to [facility] she was found to be in AFib and she was admitted to the hospital. While in the hospital she aspirated and ended up getting intubated briefly. She was able to be liberated from the ventilator placed on BiPAP. The patient is clinically now better. She went home and she has been very tired and weak. She initially she could not walk but now she is taking about 10-15 steps. She is using her respiratory medications with good effect. She is actually feeling a lot better. Will continue with the current respiratory regimen at this time. I did review her last imaging study at [facility] demonstrating bilateral pleural effusions. She continues on the Lasix and her volume status has been better. 12/17/2024 the patient is here for pulmonary follow-up visit. Overall she is doing okay. She started to get a little more congested recently the last few days. Denies any significant chest tightness or wheezing or fevers. The patient has been using her inhaled tobramycin twice a day along with the albuterol. She does complaint of irritation of her mouth making it difficult for her to tolerate. Will go ahead and start her on magic mouthwash that she can use prior to the nebulized treatment to minimize the mucosal irritation. In addition to that the patient will have some prednisone and doxycycline home in case her symptoms were to worsen. But I do not believe right now she needs any additional therapies. Also did provide her with a sputum culture cup that she can provide us if her chest congestion worsens just prior to starting the antibiotics specially with a history of having Pseudomonas. Will follow-up in 3-4 months. She has any issues prior to this she will call for an earlier assessment. 01/31/2025 the patient is here for a pulmonary sick visit. She has been more congested for the last few days. The cough is very thick tenacious mucus in his very rhonchorous in her lung exam. She denies any fevers or chills denies any difficulty breathing is just mainly that chest congestion. She has been using the leave albuterol along with the ipratropium. Will go ahead and hold off in the ipratropium to try to minimize in the dryness in the thickness of the sputum. The patient was able to use levo albuterol with hypertonic saline here and that seemed to work very well in expectorating. Therefore will continue the hypertonic saline at home. The patient will also need some antibiotics and prednisone at this time to help her with the bout of bronchitis. She will continue with the current respiratory therapy. She will also continue with the inhaled SHY 28 days on 28 days off. We were able to get a sputum culture and will send that to the micro lab to further analysis. The patient is scheduled to come back in a couple months. If she has any issues prior to this she will call for early evaluation. [facility] Medical History Aspiration pneumonia Diabetes Acute respiratory failure with hypoxia Congestive heart failure Mild bibasilar atelectasis Clostridioides difficile infection Pneumonia Atrial flutter Pyuria Atelectasis of right lung Encephalopathy chronic History of infection with vancomycin resistant Enterococcus (VRE) Heart failure Dyspnea Paroxysmal A-fib COPD (chronic obstructive pulmonary disease) A-fib Acute encephalopathy Anemia Pseudomonas respiratory infection CAD (coronary artery disease) Chronic dyspnea Acute hypokalemia Atrial fibrillation with RVR Anemia GI bleed Pulmonary nodules COPD (chronic obstructive pulmonary disease) Bronchiectasis Pseudomonal pneumonia Surgical History H/O umbilical hernia repair (09/18/22) History of quadruple bypass History of hip replacement History of knee replacement History of cholecystectomy Family History Other No family history of cancer Social History Household Members: Family Housing: House Are you a primary floor care technician to a significant other at home: No Do you presently have visiting nurse or other home services: Yes (vna) Alcohol intake: never Patient Tobacco Use Status: Former Tobacco user Tobacco use type: Cigarette Advance Directives Date on File: 08/24/22 service: No Current occupational status: retired Review of Systems Const Denies chills, Denies fatigue, Denies fever(s), Denies weight gain and Denies weight loss Eyes Reports change in vision ENT Denies dizziness and Reports mouth pain Card Denies chest pain, Denies leg edema, Denies lightheadedness, Denies palpitations, Reports dyspnea on exertion, Denies orthopnea and Denies other Resp Reports change in phlegm color, Reports chest congestion, Reports cough, Reports excessive phlegm production, Reports dyspnea on exertion and Reports wheezing GI Denies hematochezia and Denies change in stool character Musc Denies abnormal gait, Denies muscle weakness, Denies numbness, Denies radiating pain into limb and Denies tingling Skin/Breast Reports rash and Reports unusual bruising Neuro Denies abnormal gait, Denies dizziness, Denies numbness and Denies tingling Psych Reports panic attacks Endo Denies fatigue and Denies palpitations Samir/Lymph Reports easy bruising and Denies lymphadenopathy Aller/Immun Reports wheezing Physical Exam Vital Signs: Last Vital Signs Pulse 87 01/31/25 13:42 BP 108/62 01/31/25 13:42 Pulse Ox 94 01/31/25 13:42 Oxygen Delivery Method Room Air 01/31/25 13:42 Last Vital Signs Temp 97.2 F 07/03/24 07:27 Pulse 88 07/03/24 07:27 Resp 20 07/03/24 07:27 BP 151/71 H 07/03/24 07:27 Pulse Ox 100 07/03/24 07:27 O2 Del Method Room Air 07/03/24 07:27 O2 Flow Rate 1 06/29/24 09:56 FiO2 24 06/28/24 12:00 BMI result Body Mass Index 36.5 Alert oriented x3, much more comfortable appearing, no more accessory muscles used, still sounds tight with some expiratory wheezes Const General: alert and awake Orientation/consciousness: patient oriented x3 Neck Neck: Yes supple Chest Chest palpation & inspection: normal inspection of the chest Resp Other: no wheeze Effort & Inspection: normal respiratory effort, no respiratory distress and no use of accessory muscles Auscultation: rhonchi and diminished lung sounds Cardio Heart sounds: S1 normal heart sound present and S2 normal heart sound present GI Palpation (GI): Soft to palpation Skin General skin exam: purpura Neuro General: patient oriented x3 Extrem General: No clubbing, No cyanosis and Yes edema Office Procedures Nebulizer Treatment Nebulizer Treatment [id number] RX initial, or Nebulizer Subsequent Treatment Office Meds albuterol sulfate 2.5 mg/3 mL (0.083 %) solution for nebulization Performing Provider: Carlin Aldana MD Performing Location: [facility] [place] Pulmonology Services Administered by: Alexandria Garza LPN on 01/31/25 14:33 Dose Route Admin Location Dispensed Lot Number Expiration Date ND [employer] 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 Comments: patient was able to expectorate sputum for culture Results Reviewed Results Reviewed: personally reviewed CT chest 06/2024 with airspace disease and pneumonitis on the right hemithorax ?aspiration Assessment & Plan Assessment & Plan (1) COPD (chronic obstructive pulmonary disease): Code(s): J44.9 - Chronic obstructive pulmonary disease, unspecified Category: Medical Qualifiers: COPD type: COPD with acute lower respiratory infection Qualified Code(s): J44.0 - Chronic obstructive pulmonary disease with (acute) lower respiratory infection (2) Pseudomonal pneumonia: Code(s): J15.1 - Pneumonia due to Pseudomonas Category: Medical Qualifiers: Laterality: unspecified laterality Lung location: unspecified part of lung Qualified Code(s): J15.1 - Pneumonia due to Pseudomonas (3) Pulmonary nodules: Code(s): R91.8 - Other nonspecific abnormal finding of lung field Category: Medical (4) Dyspnea: Code(s): R06.00 - Dyspnea, unspecified Category: Medical Qualifiers: Dyspnea type: shortness of breath Qualified Code(s): R06.02 - Shortness of breath (5) Bronchiectasis: Code(s): J47.9 - Bronchiectasis, uncomplicated Category: Medical Qualifiers: Bronchiectasis type: with acute lower respiratory infection Qualified Code(s): J47.0 - Bronchiectasis with acute lower respiratory infection (6) Congestive heart failure: Code(s): I50.9 - Heart failure, unspecified Category: Medical Qualifiers: Heart failure chronicity: chronic Heart failure type: unspecified Qualified Code(s): I50.9 - Heart failure, unspecified Plan continue inhaled Shy 28 days on, 28 days . Will mix in with xopenex start Levaquin Prednisone taper Sputum cx continue Anoro Xopenex BID stop Ipratropium nebs BID start hypertonic saline 3% for CPT Continue acapella valve Oxygen 2L with activity and with sleep F/U 2-3 months Orders: Orders AMB Nebulizer Treatment 01/31/25 J44.0 - Chronic obstructive pulmonary disease with (acute) lower respiratory infection Medications: New levofloxacin 500 mg PO DAILY 10 tabs 0RF 10 days sodium chloride 3% 4 mL inhalation BID 240 mL 11RF 30 days levalbuterol tartrate 45 mcg/actuation (Xopenex HFA) 2 puffs inhalation Q6H PRN 15 grams 11RF shortness of breath or wheezing 30 days J45.909 - Unspecified asthma, uncomplicated prednisone PO daily; Take 2 tabs daily x 7 days, then 1 tab daily x 7 21 tabs 0RF 14 days Coding Level of Care Code Est Pt Level 5 (17799) Complex EM visit Add On G2211 Diagnoses Chronic obstructive pulmonary disease with acute lower respiratory infection J44.0 COPD type: COPD with acute lower respiratory infection Pneumonia due to Pseudomonas species, unspecified laterality, unspecified part of lung J15.1 Laterality: unspecified laterality Lung location: unspecified part of lung Pulmonary nodules R91.8 Shortness of breath R06.02 Dyspnea type: shortness of breath Bronchiectasis with acute lower respiratory infection J47.0 Bronchiectasis type: with acute lower respiratory infection Chronic congestive heart failure, unspecified heart failure type I50.9 Heart failure chronicity: chronic Heart failure type: unspecified CPT Codes Nebulizer Treatment - Nebulizer Treatment, initial or subsequent: [id number] RX initial, or Nebulizer Subsequent Treatment ([id number]) Time Spent (min) 35
== END 2025-01-31 14:28 | disposition home or self-care (01) ==
LOC: HO.HPS 13:30
PROVIDERS: PCP Internal Medicine; Visit Provider Hospitalist
DX: J44.0 Chronic obstructive pulmonary disease with (acute) lower respiratory infection (principal)

== ENCOUNTER 2025-03-31 14:20 | Outpatient (AMB) | payer OTHER, SELFPAY ==
--- NOTE | 2025-03-31 14:25 | A.OFFVIS_ITS ---
Vital Signs 03/31/25 14:27 Height 4 ft 11 in BMI Reason not done Patient refused/unable BP 130/64 Blood Pressure Location Lt brachial Position Sitting Pulse 84 Pulse Source Pulse Oximeter Pulse Oximetry (%) 92 Oxygen Delivery Method Room Air Intake Visit Reasons: COPD Services Executive Required: No Allergies carvedilol Allergy (Verified 03/31/25 14:28) Shortness of Breath sertraline (From Zoloft) Allergy (Verified 03/31/25 14:28) Shortness of Breath spironolactone Allergy (Verified 03/31/25 14:28) Shortness of Breath adhesive tape Adverse Reaction (Severe, Verified 03/31/25 14:28) skin tears ertapenem Adverse Reaction (Severe, Verified 03/31/25 14:28) Confusion mirtazapine Adverse Reaction (Severe, Verified 03/31/25 14:28) psychotic episode HPI Comments Details: The patient is an 84 year-old woman with known history of COPD along with chronic bronchitis due apparently has been in usual state health until for the last several months where her respiratory status has dramatically worsen. The patient has had numerous admissions in a short period of time. The patient states that she started developing worsening cough usually congested in nature. She has a hard time expectorating. Suddenly she developed significant respiratory distress with the family notices that she is decompensated very quickly. At that point EMS was called the. Usually the patient is found to be hypoxic and she is brought to the hospital. She has been admitted to normal now about 4 times in a [facility] about 2 times. Her sputum was positive for Pseudomonas aeruginosa and she was treated with ceftazidime. Ultimately she is treated and then subsequently is able to recover partially in that she is sent home. Usually the cycle restarts again. She has been having hard time since she does the hospital recently. They try sending another sputum culture but it was contaminated. In the office she was very congested. We were able to get a sputum sample and also very tenacious greenish in color and also smelling of Pseudomonas consistent with likely pseudomonal lower respiratory infections and pneumonia. The patient did received Xopenex with hypertonic saline with good response. She had been on DuoNeb but I am concerned that is drying up the mucus even more. Therefore will switch over to the Xopenex instead. I did review her CT scan of the chest done at [facility]. She has numerous pulmonary nodules in addition to thickened airways and some bronchiectatic looking airways. Therefore, the patient does have chronic airway disease now worsened by the fact that she is colonized with Pseudomonas. She has had multiple admissions to the hospital and therefore failing IV and oral antibiotics. The only option right now will be to start her inhaled tobramycin. she is already performing chest physical therapy with a flutter valve. 04/27/2023 the patient is here for a pulmonary follow-up visit. Since we last spoke she went back to the hospital. She was diagnosed with pneumonia was again placed on antibiotics. Again a course complicated with C diff colitis. 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 She was treated with p.o. vancomycin again. I explained to the patient and to the daughter that she needs to minimize antibiotic use because it will reasonable result in a very complicated abdominal process. The patient likely has a component of microaspiration likely aspiration pneumonias specially since pneumonias or mainly on the right side. She does have an increased amount of dementia and she is requiring additional care from the family. She is also falling asleep more regularly during the daytime. She is going to start her day program to see if this allows her to be more stimulated and more weight. In the meantime she is off the inhaled tobramycin. In view of her all her complications will go ahead and hold off the tobramycin for 4-6 weeks to see if there is improvement in her GI issues. She will continue with the current respiratory therapy With the Xopenex therapy. And will follow-up in 6 months. If the patient has any worsening symptoms she is to call the office for an earlier assessment. we also spoke briefly about goals of care. Talked about her code status. The patient currently is a full code we did talk about the concerns about her significant comorbidities and being too aggressive with her care. Therefore, I did recommend the patient talk to her daughter further about code status. 09/14/2023 the patient has a telehealth visit today. Overall she has been doing w ell. The weather spot so therefore she stayed home. She has not required any prednisone or antibiotics since we last spoke which is very reassuring. This is the longest stent of good health she has had. She is also participating in the day program where she is exposed to a lot of people and she has actually been doing very well with that as well. She continues her respiratory therapy with Xopenex. The patient has not required any other respiratory therapy. She continues use oxygen with good effect. She does complaint of some chest congestion and mucus. Explained to her that she does have chronic bronchitis and she will always make mucus. Although she needs to be monitoring closely the collar the consistency in the frequency of the mucus. If those were to worsen she will call nor for us to treat her for potential infection. 12/13/2023 the patient is here for a pulmonary follow-up visit. She was in her usual state health until the last week when she started developing worsening cough chest congestion. For another breath. Hard time expectorating. Moderate severity. Denied any fevers or chills. The mucus was colored. She does have history of Pseudomonas. At this start her on levofloxacin and also prednisone. Today she has already feeling a little better. Although the family is concerned that she has coming to the end of the treatment still congested and coughing although not as bad. The patient still has some rhonchi and wheezing on examination. I am concerned about the use of quinolones because of the possibility of tendonitis and also the risk of C diff colitis. At the same time the patient does have chronic airway disease with significant bronchiectasis. Therefore, I will give another 10 days but a low dose levofloxacin and a lower dose prednisone. He should continue with her CPT therapy. Continue with the nebulized therapy. She has been using the oxygen with good effect. Otherwise the patient is feeling a little bit better. Her last chest x-ray personally by me from 10/30/2023 with some chronic changes decreased lung volumes and some atelectasis at the bases. Further recommendation based on forthcoming data. The patient will follow-up in 3-4 months. 02/06/2024 the patient is here for sick visit. She has had worsening cough chest congestion. Moderate severity. The mucus is very tenacious. Sometimes she has a hard time clearing her secretions. She did respond well to the levofloxacin. The patient has had history of Pseudomonas in the sputum. Likely this is related to Pseudomonas at this time. Although, she does also have a history of C diff colitis. Therefore, the patient understands that using quinolones to treat her underlying respiratory infection can lead to C diff colitis. Will go ahead and pretreat her with Flagyl to minimize risk. The patient ultimately has significant bronchiectasis. She will benefit from inhaled tobramycin to be provided in order to treat the Pseudomonas infection. Therefore, will go ahead and send a sputum culture at this time. she will start the antibiotics continue with her chest physical therapy. She should be using her Acapella valve and also her nebulized therapy. Right now she does not having significant wheezing therefore will hold off on any prednisone. The patient has any worsening symptoms she will call for further evaluation. 03/18/2024 the patient is here for a pulmonary follow-up visit. Overall she is doing better since we last saw her. She did complete the 28 days of the inhaled tobramycin. She does have a hard time with it. Gives her bad taste and she does not like to take it. She is considering not continuing the therapy. She is going to have now 20 days off the medicine which I find helpful for her to take a break. But I explained to the patient did Pseudomonas will return in her respiratory symptoms will return subsequently after that and it will continue to worsen. Therefore, we do not have a lot of alternative options in the inhaled SHY although does have some adverse symptoms it is effective treating the Pseudomonas. In the meantime she is going to continue using respiratory therapy and chest PT to clear mucus. On exam she does have some wheezing. Hold off on any prednisone at this time. If her symptoms worsen she will call. She is also monitoring closely her weight. She has gained weight but although she is eating more. Does not appear to be volume overloaded at this time. She will continue with current dose of diuretics. Will follow-up in 3-4 months. The patient has any worsening symptoms prior to that she will call for an earlier assessment. 06/24/2024 the patient is here for sick visit. She chest congestion. She was evaluated by loss month. She was. The patient is still having significant chest congestion. She started. She does complaint of abdominal pain when taking it. Primarily because she has coughing a lot. Seems that she does expectorate better when she has in the inhaled SHY. On exam she does have some rhonchi wheezing and diminished breath sounds. Will go ahead and stop her SHY for now to her belly pain gets better. 07/18/2024 the patient is here for a pulmonary follow-up visit. Since we last spoke she had worsening symptoms and ended up going to the ER. There she was admitted to the hospital. She had an episode of agitation and respiratory distress and the patient was intubated for short time and transferred to the ICU. She was quickly liberated from the ventilator. And she was given IV antibiotics. The patient was diuresed and discharged. Although she continues have a hard time with her breathing. She has significant chest congestion. She has also become significantly weak after the prolonged hospitalizations and all the steroids and paralytics. She can not tolerate the inhaled tobramycin well. Irritate her throat. She also had a modified barium swallow demonstrating some laryngeal penetration but no overt aspiration. She did have a CT scan of the chest which I personally reviewed demonstrating some airspace disease in pneumonitis in the right hemithorax suggesting indeed of micro aspirations and aspirations resulting in pneumonitis. She does have a dysphagia diet which she should continue. For now though will start her on doxycycline to see if this provides some relief specially if there is any evidence of stenotrophomonas. In addition to that will go ahead and place her on small dose of prednisone 10 mg to see if this provides her relief and stability of disease. In addition to that the patient will continue the inhaled tobramycin but she will actually mixed in with the albuterol to see if she can tolerated better in that fashion. Will follow-up in 1-2 months. If she has any issues prior to that she will call for an earlier assessment. 10/01/2024 the patient is here for a pulmonary follow-up visit. The patient has had a very eventful month. Initially was hospitalized here for IV antibiotics. Unfortunately she was sent home in her PICC line started leaking she called to see about getting affixed and was recommended that she go to [facility] because we did not have Radiology available. When she went to [facility] she was found to be in AFib and she was admitted to the hospital. While in the hospital she aspirated and ended up getting intubated briefly. She was able to be liberated from the ventilator placed on BiPAP. The patient is clinically now better. She went home and she has been very tired and weak. She initially she could not walk but now she is taking about 10-15 steps. She is using her respiratory medications with good effect. She is actually feeling a lot better. Will continue with the current respiratory regimen at this time. I did review her last imaging study at [facility] demonstrating bilateral pleural effusions. She continues on the Lasix and her volume status has been better. 12/17/2024 the patient is here for pulmonary follow-up visit. Overall she is doing okay. She started to get a little more congested recently the last few days. Denies any significant chest tightness or wheezing or fevers. The patient has been using her inhaled tobramycin twice a day along with the albuterol. She does complaint of irritation of her mouth making it difficult for her to tolerate. Will go ahead and start her on magic mouthwash that she can use prior to the nebulized treatment to minimize the mucosal irritation. In addition to that the patient will have some prednisone and doxycycline home in case her symptoms were to worsen. But I do not believe right now she needs any additional therapies. Also did provide her with a sputum culture cup that she can provide us if her chest congestion worsens just prior to starting the antibiotics specially with a history of having Pseudomonas. Will follow-up in 3-4 months. She has any issues prior to this she will call for an earlier assessment. 01/31/2025 the patient is here for a pulmonary sick visit. She has been more congested for the last few days. The cough is very thick tenacious mucus in his very rhonchorous in her lung exam. She denies any fevers or chills denies any difficulty breathing is just mainly that chest congestion. She has been using the leave albuterol along with the ipratropium. Will go ahead and hold off in the ipratropium to try to minimize in the dryness in the thickness of the sp utum. The patient was able to use levo albuterol with hypertonic saline here and that seemed to work very well in expectorating. Therefore will continue the hypertonic saline at home. The patient will also need some antibiotics and prednisone at this time to help her with the bout of bronchitis. She will continue with the current respiratory therapy. She will also continue with the inhaled SHY 28 days on 28 days off. We were able to get a sputum culture and will send that to the micro lab to further analysis. The patient is scheduled to come back in a couple months. If she has any issues prior to this she will call for early evaluation. 03/31/2025 the patient is here for pulmonary follow-up visit. She continues to have ongoing symptoms. The Levaquin was already helpful for her her chest congestion significantly improved. She did have a sputum culture sent during that visit and was positive for Pseudomonas and it was indeed resistant to gentamicin tobramycin. Therefore that is why she is not responding well to the inhaled tobramycin. She stopped using it. Continues use her respiratory medications as prescribed. She is tolerating them. She does have some increased wheezing. Will start her on a small dose of prednisone that she can continue taking once a day 10 mg and then she can cut it down to 10 mg every other day and hopefully 5 mg to every other day. As far as antibiotics have her start back on macrolide suppression therapy to decrease mucus production inflammation. However, the family understands that this will not treat the Pseudomonas. If it does buildup again will have to go back on Levaquin and then deal with the potential risk factors of that. The patient follow-up in a couple months. If she has any issues prior to this she can always call for further recommendations. [facility] Medical History Aspiration pneumonia Diabetes Acute respiratory failure with hypoxia Congestive heart failure Mild bibasilar atelectasis Clostridioides difficile infection Pneumonia Atrial flutter Pyuria Atelectasis of right lung Encephalopathy chronic History of infection with vancomycin resistant Enterococcus (VRE) Heart failure Dyspnea Paroxysmal A-fib COPD (chronic obstructive pulmonary disease) A-fib Acute encephalopathy Anemia Pseudomonas respiratory infection CAD (coronary artery disease) Chronic dyspnea Acute hypokalemia Atrial fibrillation with RVR Anemia GI bleed Pulmonary nodules COPD (chronic obstructive pulmonary disease) Bronchiectasis Pseudomonal pneumonia Surgical History H/O umbilical hernia repair (09/18/22) History of quadruple bypass History of hip replacement History of knee replacement History of cholecystectomy Family History Other No family history of cancer Social History Household Members: Family Housing: House Are you a primary childcare teacher to a significant other at home: No Do you presently have visiting nurse or other home services: Yes (vna) Alcohol intake: never Patient Tobacco Use Status: Former Tobacco user Tobacco use type: Cigarette Advance Directives Date on File: 08/24/22 service: No Current occupational status: retired Review of Systems Const Denies chills, Denies fatigue, Denies fever(s), Denies weight gain and Denies weight loss Eyes Reports change in vision ENT Denies dizziness and Reports mouth pain Card Denies chest pain, Denies leg edema, Denies lightheadedness, Denies palpitations, Reports dyspnea on exertion, Denies orthopnea and Denies other Resp Denies change in phlegm color, Reports chest congestion, Reports cough, Denies excessive phlegm production, Reports dyspnea on exertion and Reports wheezing GI Denies hematochezia and Denies change in stool character Musc Denies abnormal gait, Denies muscle weakness, Denies numbness, Denies radiating pain into limb and Denies tingling Skin/Breast Reports rash and Reports unusual bruising Neuro Denies abnormal gait, Denies dizziness, Denies numbness and Denies tingling Psych Reports panic attacks Endo Denies fatigue and Denies palpitations Samir/Lymph Reports easy bruising and Denies lymphadenopathy Aller/Immun Reports wheezing Physical Exam Vital Signs: Last Vital Signs Pulse 84 03/31/25 14:27 BP 130/64 03/31/25 14:27 Pulse Ox 92 03/31/25 14:27 Oxygen Delivery Method Room Air 03/31/25 14:27 Last Vital Signs Temp 97.2 F 07/03/24 07:27 Pulse 88 07/03/24 07:27 Resp 20 07/03/24 07:27 BP 151/71 H 07/03/24 07:27 Pulse Ox 100 07/03/24 07:27 O2 Del Method Room Air 07/03/24 07:27 O2 Flow Rate 1 06/29/24 09:56 FiO2 24 06/28/24 12:00 BMI result Body Mass Index 36.5 Alert oriented x3, much more comfortable appearing, no more accessory muscles used, still sounds tight with some expiratory wheezes Const General: alert and awake Orientation/consciousness: patient oriented x3 Neck Neck: Yes supple Chest Chest palpation & inspection: normal inspection of the chest Resp Other: no wheeze Effort & Inspection: normal respiratory effort, no respiratory distress and no use of accessory muscles Auscultation: wheezes and diminished lung sounds Cardio Heart sounds: S1 normal heart sound present and S2 normal heart sound present GI Palpation (GI): Soft to palpation Skin General skin exam: purpura Neuro General: patient oriented x3 Extrem General: No clubbing, No cyanosis and Yes edema Assessment & Plan Assessment & Plan (1) COPD (chronic obstructive pulmonary disease): Code(s): J44.9 - Chronic obstructive pulmonary disease, unspecified Category: Medical Qualifiers: COPD type: chronic bronchitis Chronic bronchitis type: mucopurulent Qualified Code(s): J41.1 - Mucopurulent chronic bronchitis (2) Pseudomonal pneumonia: Code(s): J15.1 - Pneumonia due to Pseudomonas Category: Medical Qualifiers: Laterality: unspecified laterality Lung location: unspecified part of lung Qualified Code(s): J15.1 - Pneumonia due to Pseudomonas (3) Pulmonary nodules: Code(s): R91.8 - Other nonspecific abnormal finding of lung field Category: Medical (4) Dyspnea: Code(s): R06.00 - Dyspnea, unspecified Category: Medical Qualifiers: Dyspnea type: shortness of breath Qualified Code(s): R06.02 - Shortness of breath (5) Bronchiectasis: Code(s): J47.9 - Bronchiectasis, uncomplicated Category: Medical Qualifiers: Bronchiectasis type: with acute lower respiratory infection Qualified Code(s): J47.0 - Bronchiectasis with acute lower respiratory infection (6) Congestive heart failure: Code(s): I50.9 - Heart failure, unspecified Category: Medical Qualifiers: Heart failure chronicity: chronic Heart failure type: unspecified Qualified Code(s): I50.9 - Heart failure, unspecified Plan stopped inhaled Shy 28 days on, 28 days -pseudomonas now resistent start low dose prednisone restart Azithromycin MWF Sputum cx continue Anoro Xopenex BID hypertonic saline 3% for CPT Continue acapella valve Oxygen 2L with activity and with sleep F/U 2-3 months Medications: New azithromycin Take 1 tablet on Monday/Monday/Monday 250 mg PO 3XW 12 tabs 6RF 28 days K21.9 - Gastro-esophageal reflux disease without esophagitis prednisone 10 mg PO DAILY 30 tabs 6RF 30 days Changed From levalbuterol tartrate 45 mcg/actuation (Xopenex HFA) 2 puffs inhalation Q6H 30 days PRN 15 grams 11RF shortness of breath or wheezing J45.909 - Unspecified asthma, uncomplicated To levalbuterol tartrate 45 mcg/actuation 2 puffs inhalation Q6H PRN 15 grams 11RF shortness of breath or wheezing 30 days J45.909 - Unspecified asthma, uncomplicated Coding Level of Care Code Est Pt Level 4 (00438) Complex EM visit Add On G2211 Diagnoses Mucopurulent chronic bronchitis J41.1 COPD type: chronic bronchitis Chronic bronchitis type: mucopurulent Pneumonia due to Pseudomonas species, unspecified laterality, unspecified part of lung J15.1 Laterality: unspecified laterality Lung location: unspecified part of lung Pulmonary nodules R91.8 Shortness of breath R06.02 Dyspnea type: shortness of breath Bronchiectasis with acute lower respiratory infection J47.0 Bronchiectasis type: with acute lower respiratory infection Chronic congestive heart failure, unspecified heart failure type I50.9 Heart failure chronicity: chronic Heart failure type: unspecified Time Spent (min) 16
[2025-03-31 14:27] VITALS: BP 130/64; PULSE 84; O2SAT 92
--- OUTSIDE RECORDS SUMMARY | 2025-03-31 18:08 | XMS_ITS | Clinical Summary ---
Author Organization [facility] Address [address] [id number] Phone Care Team Providers Care Round Cutter Operator Name Role Phone Unavailable Primary Care Provider [...] patient's age to complete this topic Insurance [facility] MCR ([id number]) SANDY WRIGHT [id number] [facility] ([id number]) SANDY WRIGHT [id number]
== END 2025-03-31 14:57 | disposition home or self-care (01) ==
LOC: HO.HPS 14:20
PROVIDERS: PCP Internal Medicine; Visit Provider Hospitalist
DX: J41.1 Mucopurulent chronic bronchitis (principal); J15.1 Pneumonia due to Pseudomonas; R91.8 Other nonspecific abnormal finding of lung field; R06.02 Shortness of breath; J47.0 Bronchiectasis with acute lower respiratory infection; I50.9 Heart failure, unspecified
CPT/HCPCS: 99214; G2211

== ENCOUNTER → 2025-03-31 14:20 | Outpatient (BNVA) | payer OTHER, SELFPAY | PROVIDERS: PCP Internal Medicine; Visit Provider Hospitalist | DX: J41.1 Mucopurulent chronic bronchitis (principal); J47.0 Bronchiectasis with acute lower respiratory infection; I50.9 Heart failure, unspecified; J15.1 Pneumonia due to Pseudomonas; R06.02 Shortness of breath; K21.9 Gastro-esophageal reflux disease without esophagitis | CPT/HCPCS: 99212 ==

== ENCOUNTER 2025-06-06 14:36 | Outpatient (AMB) | payer OTHER, SELFPAY ==
--- OUTSIDE RECORDS SUMMARY | 2025-06-06 14:38 | XMS_ITS | Encounter Summary ---
Author Organization [facility] Address [address] [place] [address] Care Team Providers Care Marine Steward Name Role Phone Monica Arciniega MD Primary Care Provider [phone] Encounter Details Date Type Department Care Team (Late st Contact Info) Description 09/25/2024 Lab Requisition [facility] - Main Lab [address] [facility] [place] [address] Monica Arciniega MD [address] [place] [address] [place] [address] Cardiomyopathy in diseases classified elsewhere (CMS/HCC V24, [...] CBC auto differential (09/25/2024 12:30 PM EDT) [facility] WBC 6.9 4.8 - 10.8 K/mcL LAB HEMETOLOGY METHOD [facility] RBC 3.20(L) 3.80 - 4.80 M/mcL LAB HEMETOLOGY METHOD 09/25/2024 6:[address] [facility] Hemoglobin 9.9(L) 11.5 - 16.0 g/dL LAB HEMETOLOGY METHOD 09/25/2024 6:[address] [facility] Hematocrit 32.5(L) 35.0 - 47.0 % LAB HEMETOLOGY METHOD 09/25/2024 6:[address] [facility] MCV 101.9(H) 79.0 - 98.0 FL LAB HEMETOLOGY METHOD 09/25/2024 6:[address] [facility] MCH 31.0 27.0 - 32.0 pcg LAB HEMETOLOGY METHOD 09/25/2024 6:[address] [facility] MCHC 30.5(L) 32.0 - 37.0 g/dL LAB HEMETOLOGY METHOD 09/25/2024 6:[address] [facility] RDW 15.9(H) 11.0 - 15.0 % LAB HEMETOLOGY METHOD 09/25/2024 6:[address] [facility] Platelets 188 130 - 400 K/mcL LAB HEMETOLOGY METHOD 09/25/2024 6:[address] [facility] MPV 12.3(H) 7.0 - 11.0 FL LAB HEMETOLOGY METHOD 09/25/2024 6:[address] [facility] NRBC 0.0 <1.0 % LAB HEMETOLOGY METHOD 09/25/2024 6:[address] [facility] NRBC Absolute 0.00 <0.10 K/mcL LAB HEMETOLOGY METHOD 09/25/2024 6:[address] [facility] Neutrophils Relative 65.6 % LAB HEMETOLOGY METHOD 09/25/2024 6:[address] [facility] Lymphocytes Relative 22.4 % LAB HEMETOLOGY METHOD 09/25/2024 6:[address] [facility] Monocytes Relative 5.1 % LAB HEMETOLOGY METHOD 09/25/2024 6:[address] [facility] Eosinophils Relative 4.7 % LAB HEMETOLOGY METHOD 09/25/2024 6:[address] [facility] Basophils Relative 1.5 % LAB HEMETOLOGY METHOD 09/25/2024 6:[address] [facility] Immature Granulocytes Relative 0.7 % LAB HEMETOLOGY METHOD 09/25/2024 6:[address] [facility] Neutrophils Absolute 4.50 1.50 - 7.00 K/mcL LAB HEMETOLOGY METHOD 09/25/2024 6:39 PM EDT [facility] Lymphocytes Absolute 1.54 1.00 - 5.00 K/mcL LAB HEMETOLOGY METHOD 09/25/2024 6:39 PM EDT [facility] Monocytes Absolute 0.35 0.20 - 1.00 K/[facility] LAB HEMETOLOGY METHOD 09/25/2024 6:39 PM EDT [facility] Eosinophils Absolute 0.32 0.00 - 0.50 K/[facility] LAB HEMETOLOGY METHOD 09/25/2024 6:39 PM EDT [facility] Basophils Absolute 0.10 0.00 - 0.20 K/[facility] LAB HEMETOLOGY METHOD 09/25/2024 6:39 PM EDT [facility] Immature Granulocytes Absolute 0.05(H) 0.00 - 0.03 K/[facility] LAB HEMETOLOGY METHOD 09/25/2024 6:39 PM EDT [facility] Blood Venous blood specimen / Unknown 09/25/2024 12:30 PM EDT 09/25/2024 6:06 PM EDT us Monica Arciniega MD LAB BLOOD ORDERABLES Final Re sult [facility] [address] [place] [address], * (ABNORMAL) Magnesium (09/25/2024 12:30 PM EDT) Magnesium 1.8(L) 1.9 - 2.6 mg/dL LAB CHEMISTRY METHOD 09/25/2024 10:32 PM EDT [facility] Blood Venous blood specimen / Unknown Venipuncture / Unknown 09/25/2024 12:30 PM EDT 09/25/2024 6:06 PM EDT us Monica Arciniega MD LAB BLOOD ORDERABLES Final Re sult [facility] [address] [place] [address], * (ABNORMAL) Comprehensive metabolic panel (09/25/2024 12:30 PM EDT) Sodium 140 133 - 145 mmol/L LAB CHEMISTRY METHOD 09/25/2024 10:44 PM EDT [facility] Potassium 4.2 3.5 - 5.5 mmol/L LAB CHEMISTRY METHOD 09/25/2024 10:[address] [facility] Chloride 105 96 - 110 mmol/L LAB CHEMISTRY METHOD 09/25/2024 10:[address] [facility] CO2 25 21 - 32 mmol/L LAB CHEMISTRY METHOD 09/25/2024 10:[address] [facility] Anion Gap 10 3 - 11 LAB CHEMISTRY METHOD 09/25/2024 10:[address] [facility] Glucose 146(H) 70 - 100 mg/dL LAB CHEMISTRY METHOD 09/25/2024 10:[address] [facility] BUN 23 5 - 25 mg/dL LAB CHEMISTRY METHOD 09/25/2024 10:[address] [facility] Creatinine 1.16(H) 0.50 - 1.10 mg/dL LAB CHEMISTRY METHOD 09/25/2024 10:44 [facility] eGFR 46(L) >=60 mL/min/1. 73m2 LAB CHEMISTRY METHOD 09/25/2024 10:[address] [facility] Comment:Calculation based on the Chronic Kidney Disease Epidemiology Collaboration (CKD-EPI) equation refit without adjustment for race. BUN/Creatinine Ratio 19.8 LAB CHEMISTRY METHOD 09/25/2024 10:[address] [facility] Calcium 8.1(L) 8.5 - 10.5 mg/dL LAB CHEMISTRY METHOD 09/25/2024 10:44 PM EDT [facility] AST (SGOT) 42 10 - 42 unit/L LAB CHEMISTRY METHOD 09/25/2024 10:44 PM T [facility] ALT (SGPT) 41 10 - 60 unit/L LAB CHEMISTRY METHOD 09/25/2024 10:44 PM EDT [facility] Alkaline Phosphatase 123(H) 42 - 121 unit/L LAB CHEMISTRY METHOD 09/25/2024 10:44 PM EDT [facility] Total Protein 5.8(L) 6.0 - 8.0 g/dL LAB CHEMISTRY METHOD 09/25/2024 10:44 PM T [facility] Albumin 2.7(L) 3.2 - 5.0 g/dL LAB CHEMISTRY METHOD 09/25/2024 10:[address] [facility] Total Bilirubin 0.8 0.0 - 1.4 mg/dL LAB CHEMISTRY METHOD 09/25/2024 10:44 PM EDT [facility] Blood Venous blood specimen / Unknown Venipuncture / Unknown 09/25/2024 12:30 PM EDT 09/25/2024 6:06 PM EDT us Monica Arciniega MD LAB BLOOD ORDERABLES Final Re sult [facility] [address] [place] [address], documented in this encounter Visit Diagnoses Diagnosis Cardiomyopathy in diseases classified elsewhere (CMS/HCC V24, CMS/HCC V28) Pneumonia, unspecified organism Chronic obstructive pulmonary disease, unspecified (CMS/HCC V24, CMS/HCC V28) Restlessness and agitation Other signs and symptoms involving emotional state documented in this encounter Care Teams Marine Steward Relationship Specialty Start Date End Date Monica Arciniega MD [address] [place] [address] [place] [address] PCP - General Internal Medicine 09/25/24 documented as of this encounter
--- OUTSIDE RECORDS SUMMARY | 2025-06-06 14:38 | XMS_ITS | Data Portability ---
Author Organization [facility] [employer] [facility], [facility] Address [address] [place] [address] Care Team Providers Care Hatch Supervisor Name Role Phone HIM CCA OTHER GIANNI GU Primary Care Provider [phone] Assessment Encounter Date Assessment Date Assessment LastModified [...] Assessment and Plan as documented by the Windows Laptop Technician. Patient /daughter given the opportunity to ask questions. Advised if develops CP/severe SOB/turning blue/uncontrolle d n/v/d or black/bloody emesis or stool/ AMS/ syncope/ hi fever to call 911- daughter verbalized understanding of instructions to the medic Not available 12/12/2022 13:03:17 Plan of Treatment Reminders Order Date Submit Date Provider Last Modified By Organization Details Last Modified Time Details Appointments None recorded. Lab culture, urine 2024 025 GUINDA [facility] (Centralized Electronic Ordering - All Locations), Patient Can Go To The Location Of Their Choice, [address] 20:05:53 urinalysis, dipstick 2024 025 [facility] [address] [place] [address], [phone] 5 21:38:07 rapid flu (A+B) 2024 025 [facility], [address] [place] [address], [phone] 5 21:32:52 rapid SARS CoV 2 Ag, QL IA, respiratory specimen 2024 025 [facility], [address] [place] [address], [id number] 5 21:32:55 culture, urine 2022 023 KWADWO [facility] (Centralized Electronic Ordering - All Locations), Patient Can Go To The Location Of Their Choice, [address] 3 07:20:43 urinalysis, dipstick 2022 023 [email or web address] 0 [facility], [address] [place] [address], [phone] 3 13:03:23 glucose, fingerstick , blood 2022 023 [email or web address] 0 [facility], [address] [place] [address], [phone] 3 13:03:23 Referral None recorded. Procedures None [...] Go To The Location Of Their Choice, [id number] 12/14/2022 07:20:43 12/13/1912/12/2022 URINE CULTU RE special requests NONE Not Available [facility] (Centralized Electronic Ordering - All Locations) Patient Can Go To The Location Of Their Choice, [address] 12/14/2022 07:20:43 12/13/19 23 12/14/2022 URINE CULTU RE culture Mixed bacter ial rowdy, indica tive of urogen ital contam inatio n. Not Available [facility] (Centralized Electronic Ordering - All Locations) Patient Can Go To The Location Of Their Choice, [address] 12/14/2022 07:20:43 12/13/19 23 12/14/2022 URINE CULTU RE report status FINAL 2022 Not Available [facility] (Centralized Electronic Ordering - All Locations) Patient Can Go To The Location Of Their Choice, [address] 12/14/2022 07:20:43 12/13/19 23 12/12/2022 urina lysis , dipst ick Leukocytes 500 Not Available Main - [facility] [address] [place] [address], [address] [place] [address] 12/12/2022 12:57:33 12/13/19 23 12/12/2022 urina lysis , dipst ick Nitrite positi ve Not Available Main - Inst [address], [address] [place] [address] 12/12/2022 12:57:33 12/13/19 23 12/12/2022 urina lysis , dipst ick Urobilinogen 0.2 Not Available Main - [facility] [address] [place] [address], [address] [place] [address] 12/12/2022 12:57:33 12/13/19 23 12/12/2022 urina lysis , dipst ick Protein 30 Not Available Main - Ins [address], [address] [place] [address] 12/12/2022 12:57:33 12/13/19 23 12/12/2022 urina lysis , dipst ick pH 7.5 Not Available Main - Ins [address], [address] [place] [address] 12/12/2022 12:57:33 12/13/19 23 12/12/2022 urina lysis , dipst ick Blood + Not Available Main - Ins [address], [address] [place] [address] 12/12/2022 12:57:33 12/13/19 23 12/12/2022 urina lysis , dipst ick Specific [place] 1.005 Not Available Main - [facility] [address] [place] [address], [phone] 12/12/2022 12:57:33 12/13/19 23 12/12/2022 urina lysis , dipst ick Ketone neg Not Available Main - Ins [address], [phone] 12/12/2022 12:57:33 12/13/19 23 12/12/2022 urina lysis , dipst ick Bilirubin neg Not Available Main - I nsted [address] [place] [address], [phone] 12/12/2022 12:57:33 12/13/19 23 12/12/2022 urina lysis , dipst ick Glucose neg Not Available Main - Ins [address], [address] [place] [address] 12/12/2022 12:57:33 12/13/19 23 12/12/2022 urina lysis , dipst ick Appearance cloudy Not Available Main - [facility] [address] [place] [address], [address] [place] [address] 12/12/2022 12:57:33 12/13/19 23 12/12/2022 urina lysis , dipst ick Color yellow Not Available Main - Ins [address], [address] [place] [address] 12/12/2022 12:57:33 12/13/19 23 12/12/2022 gluco se, finge rstic k, blood Blood Glucose: mg/dl 190 Not Available Main - [facility] [address] [place] [address], [address] [place] [address] 12/12/2022 12:57:38 07/26/1907/29/2024 URINE CULTU RE,CO MPREH ENSIV E urine culture,comp rehensive Final report abnormal Not Available [facility] ([facility]) [address], [place], [address], 07/29/2024 10:05:35 07/26/1907/29/2024 URINE CULTU RE,CO MPREH ENSIV E result 1 Proteu s mirabi lis abnormal Susce ptibi lity profi le is consi stent with a proba ble ESBL. Multi -Drug Resis tant Organ ism Great er than 100,0 00 colon y formi ng units per mL Not Available [facility] ([facility]) [address] [facility], [place], [address], 07/29/2024 10:05:35 07/26/19 25 07/29/2024 URINE CULTU [...] thopr im/Mitchell lfa R Not Available [facility] ([facility]) [address] [facility], [place], [address], 07/29/2024 10:05:35 07/26/19 25 07/26/2024 rapid flu (A+B) Flu negati ve Not Available Main - [facility] [address] [place] [address], [phone] 07/26/2024 20:55:44 07/26/19 25 07/26/2024 rapid SARS CoV 2 Ag, QL IA, respi rator y speci men rapid SARS CoV 2 Ag, QL IA, respiratory specimen negati ve Not Available Main - [facility] [address] [place] [address], [phone] 07/26/2024 21:32:34 Result Notes None recorded. Medical Equipment None Reported. Allergies Allergen ID Allergen Name Allergen Category Reaction Reaction Severity Criticality Documentation Date Start Date Code Code System Note Provider Name and Address Organization Details Recorded Time 97635 mirtazapi ne medicatio n Not available Not available Not available 07/26/2024 79591 RxNorm Not Available [facility] - production 5 12:24:54 12546 sertralin e medicatio n Not available Not available Not available 07/26/2024 63335 RxNorm Not Available [facility] - production 5 12:24:54 2695 cetirizin e medicatio n Not available Not available Not available 12/12/2022 21993 RxNorm Alexandria Shea MD [address] [facility],[address], [place], [phone], [facility] 12:51:29 2696 spironola ctone medicatio n Not available Not available Not available 12/12/2022 9997 Rx[facility] Not Available [facility] 12:24:54 2697 carvedilo l medicatio n Not available Not available Not available 12/12/202297070 RxNorm Not Available [facility] 5 12:24:54 Medications Name Sig [...] Not Available Not Available No t Available RF Controls Verio Reflect Meter USE TO CHECK SUGARS DAILY active Not Available Not Available No t Available [employer] COVID-19 Ag Self Test kit FOLLOW PACKAGE DIRECTIONS active Not Available Not Available N ot Available Vitals Date Recorded Respiratory rate Heart rate Body temperature Oxygen saturation Systolic And Diastolic Provider Name and Address Organization Details Last Updated DateTime 5 18 /min 62 /min 98.4 [degF] 97 % 144/88 mm[Hg] Not Available [facility] - production 5 20:33:01 Date Recorded Body weight Provider Name an d Address Organization Details Last Updated DateTime 12/12/2022 28252.6 g Jose Martin Shelton [address] [place] [address],[address], [place], [phone], [place] - [employer] [facility] 12/12/2022 13:03:46 Date Recorded Heart rate Body temperature Respiratory rate Oxygen saturation Body temperature Heart rate Oxygen saturation Body weight Respiratory rate Systolic And Diastolic Systolic And Diastolic Provider Name and Address Organization Details Last Updated DateTime 3 92 /min 97.9 [degF] 14 /min 99 % 97.9 [degF] 92 /min 99 % 35769.5 52 g 14 /min 138/67 mm[Hg] 138/67 mm[Hg] Not Available [facility] [employer] 3 13:17:06 Date Recorded Body temperature Heart rate Oxygen saturation Respiratory rate Systolic And Diastolic Provider Name and Address Organization Details Last Updated DateTime 2 97.8 [degF] 97 /min 97 % 18 /min 114/76 mm[Hg] Not Available [facility] [employer] 2 13:50:19 Social History None recorded. Functional Status None recorded. Mental Status None recorded. Family History Nothing Reported. Medical History No medical history recorded. Gynecological HistoryNo gynecological history recorded. Obstetrics History GPAL:G 0 P 0 0 0 0 Past Encounters Encounter ID Performer Location Encounter Start Date Encounter Closed Date Diagnosis/Indication Diagnosis SNOMED-CT Code Diagnosis ICD10 Code Diagnosis IMO Codes Diagnosis Note [id number] Jacobo Disla MD [facility] [address] [place] [phone] 03/08/2022 13:34:54 03/11/2022 16:53:14 Wound of skin 363551456 T14.8XXA [id number] Alexandria Shea MD Main - [facility] [address] [place] [phone] 12/12/2022 12:48:46 12/13/2022 10:47:07 Urinary symptoms 067346721 R39.9 recurrent uti. Pat has tolerated cefpodoxim e well in the past per daughter- advised doxycyclin e likely chosen at last d/c due to concomitan t pneumonia- would like to avoid quinolones in elderly patient on eliquis if possible-a dvised will check culture and if sensitivit ies indicate another abx required will call in different RX when results return in a few days [id number] CARLOS LOUIE MD Main - [facility] [address] [place] [phone] 07/26/2024 20:17:44 07/27/2024 09:55:15 Urinary symptoms 365383028 R39.9 Evaluation in the field was performed by my senior systems software engineer colleague, as noted above, I provided real-time [...] on bilaterall yNo lower extremity edema per senior systems software engineer examUA: Positive for leukocytes , ketones, and [...] [place]cido Member ID Guarantor Name 12/12/2022 1 [facility] - DOS PRIOR TO 2022 - DUAL ELIGIBLE (MEDICARE REPLACEMENT/ADV ANTAGE - HMO) Jenifer Mercado [id number] Jenifer Mercado 07/26/2024 1 [facility] - DOS ON OR AFTER 2022 - DUAL ELIGIBLE - PENITENTIARY OPTIONS AND ONE CARE (MEDICARE REPLACEMENT/ADV ANTAGE - HMO) Jenifer Mercado [id number] Jenifer Mercado Notes Date Note Type Note [...] Comments: Members dtr calling to place an [facility] referral. Mom with paper thin skin, and on blood thinners. She was getting up to go to the bathroom, she turned her walker and hit her left ankle. Site is about the size of quarter, area has been bleeding off/on since 3am. Daughter has put gauze, triple abx ointment and wrap. Would like area assessed. Jacobo Disla MD [address] [facility],[address], [place], [address], [employer] 03/08/2022 13:59:24 12/12/2022 text/html ROS as noted in the [facility] CRC Nursing Assessment: Reason For Request: Daughter [...] .................. .................. .................. .................. .................. .................. ...... Windows Laptop Technician Note From Gavin Snow: Pt's daughter [...] .................. ............... Disposition: Fulfilled Alexandria Shea MD [address] [place] [address],[address], [place], [phone], [employer] - [facility] 12/12/2022 13:35:09 07/26/2024 text/html ROS as noted in the [facility] CRC Nurse Triage Notes (Marley Dougherty - RN): Reason For Request: Possible uti, and increased confusion. Wheesing in lungs, Chief Complaints: Urinary catheter/nephrosto my tube problems PMH: Hypertension, Coronary Artery Disease, COPD/Asthma, Congestive Heart Failure, Arrhythmias (e.g., Atrial Fibrillation), Diabetes Mellitus Type 2 PMH Reviewed at 07/26/2024:24 Allergies Reviewed at 07/26/2024 - 12:24 Comments: [...] s/s and seek emergency treatment if needed. Windows Laptop Technician Organization Information for Gus Oseguera [employer] Legal Name: [employer] Address: [address] [place] [address], [employer]: Aaron Cole MD [place] No.: [id number] Windows Laptop Technician POC Test Results from Gus Oseguera Urine Dipstick (20:34:22) Urine leukocytes: +++ JOSE Urine nitrites: - NIT Urine urobilinogen: - URO Urine protein: - PRO Urine pH: 5 pH Urine blood: + BLO Urine specific gravity: 1.000 SG Urine ketones: + KET Urine bilirubin: - NOELLE Urine glucose: - GLU .................. .................. .................. .................. .................. .................. .................. ............... Windows Laptop Technician Note From Gus Oseguera: Dispatched to [...] nitrates. Culture obtained for lab. [facility] consulted. Rapid covid/flu (-). Red flags discussed. ALL times are approx. .................. .................. .................. .................. .................. .................. .................. ............... [facility] Consulted: Carlos Louie .................. .................. .................. .................. .................. .................. .................. ............... Disposition: Fulfilled CARLOS LOUIE MD [address] [facility],[address], [place], [address], [facility] - [facility] 07/26/2024 21:33:38 OBGyn Episode No OBEpisode recorded.
--- OUTSIDE RECORDS SUMMARY | 2025-06-06 14:38 | XMS_ITS | Clinical Summary ---
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 DX:A rthritis of multiple sites CAD (coronary artery disease) 08/08/2016 DX :CAD (coronary artery disease) Constipation 10/28/2016 DX:Constipation COPD (chronic obstructive pu lmonary disease) ([facility] V24, [facility] V28) 10/11/2017 DX:COPD (chronic o bstructive pulmonary disease) ([facility]) GERD (gastroesophageal reflux disease) 10/11/2017 DX:GERD (gastroesophageal [...] Patients (1 - 1-dose 75+ series) 2013 Depression Screening 06/12/2024 Cholesterol Screening (Lipid Panel) 09/26/2024 Falls Risk Assessment 09/26/2024 Medicare Annual Wellness Visit 09/26/2024 Social Influencers of Health Screening 09/26/2024 COVID-19 Vaccine (1 - 2024-2 6 season) 2025 Influenza Vaccine (#1) 2025 04/26/2017 Hypertension/CHF/CAD Annual BMP Blood Test [...] Procedure Name Priority Date/Time Associated Diagnosis Comments COMPREHENSIVE METABOLIC PANEL Routine 09/25/2024 12:30 PM EDT Cardiomyopathy in diseases classified elsewhere (CMS/HCC V24, CMS/HCC V28) Pneumonia, unspecified organism Chronic obstructive pulmonary disease, unspecified (CMS/HCC V24, CMS/HCC V28) Restlessness and agitation [facility] DEXA AXIAL SKELETON Routine 01/18/2021 4:18 PM EDT Age-related osteoporosis without current pathological fracture from Last 3 Months or Most Recently Relevant to Health Maintenance Results * (ABNORMAL) Comprehensive metabolic panel (09/25/2024 12:30 PM EDT) Sodium 140 133 - 145 mmol/L LAB CHEMISTRY METHOD 09/25/2024 10:44 PM [facility] Potassium 4.2 3.5 - 5.5 mmol/L LAB CHEMISTRY METHOD 09/25/2024 10:44 PM [facility] Chloride 105 96 - 110 mmol/L LAB CHEMISTRY METHOD 09/25/2024 10:44 PM [facility] CO2 25 21 - 32 mmol/L LAB CHEMISTRY METHOD 09/25/2024 10:44 PM [facility] Anion Gap 10 3 - 11 LAB CHEMISTRY METHOD 09/25/2024 10:44 PM [facility] Glucose 146(H) 70 - 100 mg/dL LAB CHEMISTRY METHOD 09/25/2024 10:44 PM [facility] BUN 23 5 - 25 mg/dL LAB CHEMISTRY METHOD 09/25/2024 10:44 PM [facility] Creatinine 1.16(H) 0.50 - 1.10 mg/dL LAB CHEMISTRY METHOD 09/25/2024 10:44 PM [facility] eGFR 46(L) >=60 mL/min/1. 73m2 LAB CHEMISTRY METHOD 09/25/2024 10:44 PM [facility] Comment:Calculation based on the Chronic Kidney Disease Epidemiology Collaboration (CKD-EPI) equation refit without adjustment for race. BUN/Creatinine Ratio 19.8 LAB CHEMISTRY METHOD 09/25/2024 10:44 PM [facility] Calcium 8.1(L) 8.5 - 10.5 mg/dL LAB CHEMISTRY METHOD 09/25/2024 10:44 PM [facility] AST (SGOT) 42 10 - 42 unit/L LAB CHEMISTRY METHOD 09/25/2024 10:44 PM EDT [facility] ALT (SGPT) 41 10 - 60 unit/L LAB CHEMISTRY METHOD 09/25/2024 10:44 PM EDT [facility] Alkaline Phosphatase 123(H) 42 - 121 unit/L LAB CHEMISTRY METHOD 09/25/2024 10:44 PM EDT [facility] Total Protein 5.8(L) 6.0 - 8.0 g/dL LAB CHEMISTRY METHOD 09/25/2024 10:44 PM EDT [facility] Albumin 2.7(L) 3.2 - 5.0 g/dL LAB CHEMISTRY METHOD 09/25/2024 10:44 PM EDT [facility] Total Bilirubin 0.8 0.0 - 1.4 mg/dL LAB CHEMISTRY METHOD 09/25/2024 10:44 PM EDT [facility] Blood Venous blood specimen / Unknown Venipuncture / Unknown 09/25/2024 12:30 PM EDT 09/25/2024 6:06 PM EDT us Monica Arciniega MD LAB BLOOD ORDERABLES Final Re sult [facility] [address] [place] [address], * SHIRA DEXA AXIAL SKELETON (01/18/2021 4:18 PM EDT) Anatomical Region Laterality Modality Mammography 01/18/2021 2:14 PM EDT Narrative 01/18/2021 4:18 PM EDT [facility] Diagnostic Imaging Department [address] [place] [address] Patient: SYPEK,JENIFER S /Age/Sex: 1940 - 80 - F Unit#: [id number] Location/Status: SPDIMAM/REG CLI Mnemonic/[facility] Ordering Physician: ANA BALTAZAR MD [facility] Dexa Axial Skeleton - 01/18/211499 History: Low estrogen state due to menopause. History of adult fracture (hip, pelvis, tibia). Rheumatoid arthritis. Chronic glucocorticoid use. Tobacco use. Hip replacement. Findings: Bone densitometry is performed utilizing dual energy x-ray absorptiometry (DXA) in the [employer] unit. The lumbar spine and left proximal femur are evaluated in the AP projection. The FRAX questionaire was completed. The results indicate osteoporosis, with a left femoral neck T-score of -3.6. The detailed DEXA report will be mailed to the referring physician's office. DualFemur FRAX: 10-year Probability of Fracture: Major Osteoporotic 58.3 percent Hip 34.1 percent. IMPRESSION: Osteoporosis. [id number] Dictating Physician: KRISTIE GODWIN MD Electronically Signed by: KRISTIE GODWIN MD Dic Date/Time: 01/18/211616 Sign date/Time: 01/18/211617 Procedure Note Kristie Godwin MD - 06/08/2022 [facility] Diagnostic Imaging Department [address] [place] [address] Patient: JENIFER MERCADO/Age/Sex: 1940 - 80 - F Unit#: [id number] Location/Status: SPDIMAM/REG CLI Mnemonic/Ordering Site: [facility] Ordering Physician: ANA BALTAZAR MD [facility] Dexa Axial Skeleton - 01/18/21 - 1500 History: Low estrogen state due to menopause. History of adult fracture(hip, pelvis, tibia). Rheumatoid arthritis. Chronic glucocorticoid use. Tobaccouse. Hip replacement. Findings: Bone densitometry is performed utilizing dual energy x-ray absorptiometry(DXA) in the [employer] unit. The lumbar spine and left proximal femur are evaluated in the AP projection. The FRAX questionaire was completed. The results indicate osteoporosis, with a left femoral neck T-score of-3.6. The detailed DEXA report will be mailed to the referring physician'soffice. DualFemur FRAX: 10-year Probability of Fracture: Major Osteoporotic 58.3 percent Hip 34.1 percent. IMPRESSION: Osteoporosis. [id number] Dictating Physician: KRISTIE GODWIN MD Electronically Signed by: KRISTIE GODWIN MD Dic Date/Time: 01/18/211616 Sign date/Time: 01/18/21 161 Ana Baltazar MD IMG BI PROCEDURES Final Resu lt from Last 3 Months or Most Recently Relevant to Health Maintenance Insurance MEDICAID - [place] [employer] MEDICARE Member Subscriber Plan / Payer (Ef fective 2020-Present) Name:Jenifer Mercado Relation to Subscriber:Self Name:Jenifer Mercado Payer ID:[id number] Group ID:[id number] Type:Not on file Address: [address] [place] [phone] Care Teams Exceptional Children Teacher Relationship Specialty Start Date End Date Monica Arciniega MD [address] [place] [address] [place] [address] PCP - General Internal Medicine 09/25/24
--- OUTSIDE RECORDS SUMMARY | 2025-06-06 14:38 | XMS_ITS | Data Portability ---
Author Organization [place] [facility] Address [address] [place] [address] Care Team Providers Care Biometrician Name Role Phone GIANNI GU Primary Care Provider [phone] TARYN REEDER OTHER TC [facility]OSCO OTHER Assessment Encounter Date Assessment Date Assessment LastModified by Organization Details LastModified Time 02/09/2020 02/09/2020 Overview/History :Carlos gregory is an 79-year-old female that as a new patient [employer]. Her daughter had contacted [employer] because she has been not acting her [...] after care of this patient according to Counts include 234 beds at the [facility]'s infection prevention protocols. [email or web address] Not available 02/09/2020 15:15:56 07/31/2020 07/31/2020 Time On Scene with Patient: 01:13:47 [email or web address] Not available 07/31/2020 18:23:18 08/10/2020 08/10/2020 Time On Scene with Patient: 00:23:20 [email or web address] Not available 08/10/2020 16:06:51 Plan of Treatment Reminders Order Date Submit Date Provider Last Modified By Organization Details Last Modified Time Details Appointments None recorded. Lab urinalysi s, dipstick 2019 020 [email or web address] 1 [facility], [address] [place] [address], [address], 0 12:20:25 culture, urine 2019 020 [email or web address] [facility] (Centralized Electronic Ordering - All Locations), Patient Can Go To The Location Of Their Choice, [id number] 0 21:12:23 Referral None recorded. Procedures None recorded. Surgeries None recorded. Imaging None recorded. Medication Orders mupirocin 2 % topical ointment 2020 021 [email or web address] Not available 1 18:13:34 doxycycli ne hyclate 100 mg capsule 2020 021 [email or web address] Not available 15:57:35 doxycycli ne hyclate 100 mg tablet 2020 021 [email or web address] Not available 15:57:41 doxycycli ne hyclate 100 mg capsule 2020 021 [email or web address] Not available 12:14:36 Keflex 500 mg capsule 2019 020 [email or web address] Not available 1 17:12:21 cephalexi n 500 mg capsule 2019 020 [email or web address] Not available 17:12:21 Patient TargetsNo targets recorded. Patient Instructions Encounter Date Encounter Id Patient Instructions Last Modified By Organization Details Last Modified Time 02/09/2020 [id number] WE CAME TO SEE Y OU TODAY [...] condition between 8am-10pm, please call [facility] at [phone] to help navigate your care. [email or web address] Not available 02/09/2020 12:22:20 02/16/2020 [id number] Care Coordinated Call Patient's phone number is [...] specialist. [email or web address] Not available 02/16/2020 16:41:55 07/31/2020 [id number] Suture Care Discharge Instructions Keep the stitches [...] out you may use Mederma, Scar Away (drkd-fju-yopjsze medicines) or similar products over the area [...] worrisome symptoms. Have the stitches removed in 10-12 days as advised by your Provider. If you develop any new or worsening symptoms and need after hours care, please go to nearest ER and/or call 911. If you have additional concerns or develop a change in your condition between 8am-10pm, please call Counts include 234 beds at the [facility] at [phone] to help navigate your care. Suture Care [...] out you may use Mederma, Scar Away (pols-ojp-svpjvil medicines) or similar products over the area [...] in your condition between 8am-10pm, please call [facility] at [phone] to help navigate your care. Thank you for your visit with [facility] today. You were seen today for treatment [...] in your condition between 8am-10pm, please call [facility] at [phone] to help navigate your care. Not available 08/02/2020 09:38:37 08/10/2020 [id number] Thank you for yo ur visit with [facility] today. You were seen today for treatment [...] condition between 8am-10pm, please call [facility] at [phone] to help navigate your care. Not available 08/10/2020 15:58:22 Reason for Referral None Reported. Results Created Date Observation Date Name Description Value Unit Range Abnormal Flag Note LastModifiedBy Organization Detail LastModifiedTime 02/09/2002/09/2020 cultu re, urine special requests NONE Not Available [facility] (Centralized Electronic Ordering - All Locations) Patient Can Go To The Location Of Their Choice, [id number] 02/10/2020 21:12:23 02/09/2002/10/2020 cultu re, urine specimen description URINE Not Available [facility] (Centralized Electronic Ordering - All Locations) Patient Can Go To The Location Of Their Choice, [address] 02/10/2020 21:12:23 02/09/2002/10/2020 cultu re, urine culture Mixed bacter ial rowdy, indica tive of urogen ital contam inatio n. Not Available [facility] (Centralized Electronic Ordering - All Locations) Patient Can Go To The Location Of Their Choice, [address] 02/10/2020 21:12:23 02/09/2002/10/2020 cultu re, urine report status FINAL 2019 Not Available [facility] (Centralized Electronic Ordering - All Locations) Patient Can Go To The Location Of Their Choice, [address] 02/10/2020 21:12:23 02/09/2002/09/2020 urina lysis , dipst ick Appearance clear Not Available Spr [facility] [address] [address] [place], [address], 02/09/2020 12:13:32 02/09/20 20 02/09/2020 urina lysis , dipst ick Color yellow Not Available Spr - Home [address] [place], [address], 02/09/2020 12:13:32 02/09/20 20 02/09/2020 urina lysis , dipst ick Glucose negati ve Not Available Spr - [address] [place], [address], 02/09/2020 12:13:32 02/09/20 20 02/09/2020 urina lysis , dipst ick Bilirubin negati ve Not Available Spr - [address] [place], [address], 02/09/2020 12:13:32 02/09/20 20 02/09/2020 urina lysis , dipst ick Ketones NEG Not Available Spr - [facility] [address] [place], [address], 02/09/2020 12:13:32 02/09/20 20 02/09/2020 urina lysis , dipst ick Sp. [place] 1.015 Not Available Spr - Home [address] [place], [address], 02/09/2020 12:13:32 02/09/20 20 02/09/2020 urina lysis , dipst ick Blood NEG Not Available Spr - Home [address] [place], [address], 02/09/2020 12:13:32 02/09/20 20 02/09/2020 urina lysis , dipst ick pH 5 Not Available Spr - Home [address] [place], [address], 02/09/2020 12:13:32 02/09/20 20 02/09/2020 urina lysis , dipst ick Protein negati ve Not Available Spr - [address] [place], [address], 02/09/2020 12:13:32 02/09/20 20 02/09/2020 urina lysis , dipst ick Urobilirubin negati ve Not Available Spr - Home [address] [place], [address], 02/09/2020 12:13:32 02/09/20 20 02/09/2020 urina lysis , dipst ick Nitrites + Not Available Spr - [facility] e [address] [place], [address], 02/09/2020 12:13:32 02/09/20 20 02/09/2020 urina lysis , dipst ick Leukocytes + Not Available Spr - [facility] [address], [place], [address], 02/09/2020 12:13:32 Result Notes None recorded. Procedures Surgical History Date Name Laterality Status Provider Name and Address Organization Details Recorded Time 021 Laceration, General - DH completed Asiya Brennan, [facility] [address] [place], [address], [place] [facility] 08/02/2020 09:43:43 020 Medication Review completed KEVIN CRUZ NP [address], [place], [address], [place] [facility] 02/09/2020 15:12:08 coronary artery bypass grafts x 4 completed Asiya Brennan NP [address] [place], [address], [place] [facility] 07/31/2020 17:19:15 open reduction of fracture of femur completed Asiya Brennan NP [address] [place], [address], [place] [facility] 07/31/2020 17:19:29 cholecystectomy completed Asiya Brennan NP [address] [place], [address], [place] [facility] 07/31/2020 17:19:39 section completed Asiya Brennan NP [address] [place], [address], [place] [facility] 07/31/2020 17:19:47 bilateral extraction of cataracts completed Asiya Brennan NP [address] [place], [address], [place] [facility] 07/31/2020 17:19:54 Oral surgery procedure completed Asiya Brennan NP [address] [place], [address], [place] [facility] 07/31/2020 17:20:01 Imaging [...] Available No t Available Vitals Date Recorded Heart rate Oxygen saturation Respiratory rate Body temperature Systolic And Diastolic Provider Name and Address Organization Details Last Updated DateTime 1 70 /min 95 % 18 /min 98.5 [degF] 130/58 mm[Hg] Not Available [facility] 1 17:14:50 Date Recorded Oxygen saturation Heart rate Body temperature Respiratory rate Systolic And Diastolic Provider Name and Address Organization Details Last Updated DateTime 1 94 % 80 /min 98.4 [degF] 20 /min 130/60 mm[Hg] Not Available [facility] 1 15:50:30 Date Recorded Respiratory rate Body temperature Oxygen saturation Heart rate Systolic And Diastolic Provider Name and Address Organization Details Last Updated DateTime 0 18 /min 96.3 [degF] 98 % 81 /min 152/60 mm[Hg] Not Available [facility] 0 11:57:30 Social History Question Answer Notes LastModified by Organizat ion Details LastModified Time Tobacco Smoking Status Former Smoker KEVIN CRUZ NP [address], [place], [address], [place] [facility] 02/09/2020 11:58:49 Do You Have An Advance Directive? No [email or web address] Information not available 02/09/2020 What Is Your Code Status? Full Code [email or web address] Information not available 02/09/2020 Within The Past 12 Months, Have You Worried That Your Food Would Run Out Before You Got Money To Buy More. No [email or web address] Information not available 02/09/2020 Fall Risk: Do You Feel Unsteady When Standing Or Walking? No [email or web address] Information not available 02/09/2020 We Know That How And When People Interact With Friends And Family Can Be Very Different From Person To Person. How Often Do You Have The Opportunity To See Or Talk To People That You Care About And Feel Close To? (Ex: Talking To Friends On The Phone Or Visiting Friends Or Family Or Going To Confucianism Or Club Meetings) 1 Or 2 Times Per Week [email or web address] Information not available 02/09/2020 We Know From Many Of Our Patients That Covering All Of Their Costs Can Be Difficult At Times. This Can Cause Stress And Impact Health. In The Past Year, Have You Been Unable To Get Any Of The Following When It Was Really Needed? No [email or web address] Information not available 02/09/2020 What Is Your Housing Situation Today? I Have Housing [email or web address] Information not available 02/09/2020 Would You Like Help Connecting To Resources? None [email or web address] Information not available 02/09/2020 How Many Years Have You Smoked Tobacco? 70 [email or web address] Information not available 02/09/2020 Sex: Unknown Functional Status None recorded. Mental Status None recorded. Family History Relationship Description Onset Age of this Age Resolved Age Notes LastModified by Organization Details LastModified Time Father Coronary arterioscler osis [email or web address] Not available 12:00:26 Medical History Condition Response [...] ICD10 Code Diagnosis IMO Codes Diagnosis Note [id number] KEVIN CRUZJEWELS [facility] - [facility] [address] [place] [address] 02/09/2020 11:53:18 02/10/2020 18:30:19 Chronic urinary tract infection 361950651 N39.0 Mild depression 74991491 3 F32.0 [id number] Carina Valles RN [facility] - HOME [address] [place] [address] 02/16/2020 16:36:56 02/16/2020 16:42:10 [id number] Asiya Brennan NP [facility] - [facility] [address] [place] [address] 07/31/2020 17:09:37 08/04/2020 10:31:48 Laceration of lower leg [id number] S81.812A Overview/H istory: Patient is an alert [...] time. Proper Personal Protective Equipment (PPE), including gloves, eye protection , N95 mask, gown, and shoe covers were donned and doffed approprashley cano and all equipment cleaned using approved technique with germicidal disposable wipes prior to and after care of this patient according to [facility]'s infection prevention protocols. In order to obtain further informatio n and compare any laboratory results/va lues, I have accessed old patient records. This informatio n was pertinent in my medical decision making today. [id number] Asiya Brennan NP [facility] - HOME [address] [place] [address] 08/10/2020 15:43:37 08/12/2020 12:52:17 Wound of skin [id number] T14.8XXD Overview/H istory: Patient is an 79 [...] time. Proper Personal Protective Equipment (PPE), including gloves, eye protection , N95 mask, gown, and shoe covers [facility] and all equipment cleaned using approved technique with germicidal disposable wipes prior to and after care of this patient according to [facility]'s infection prevention protocols. In order to obtain further informatio n and compare any laboratory results/va lues, I have accessed old patient records. This informatio n was pertinent in my medical decision making today. Health Concerns Section Related Observation LastModified by Organization Detai ls LastModified Time None Recorded Concern Status LastModified by Organization Details LastModified Time None Recorded Advance Directives Directive N: Payers Insurance Date Sequence Insurance Name Policy Number Policy Salcido Covered Member ID Salcido Member ID Guarantor Name 12/12/2022 1 [facility] - DOS ON OR AFTER 2022 - MEDICARE [place]AGE [place]MEDICARE REPLACEMENT/AD VANTAGE - PPO) Jenifer Sypek [id number] Jenifer Sypek 08/12/2020 1 [place] [employer] Jenifer Sypek [id number] Jenifer Sypek 08/10/2020 1 [facility] - DOS PRIOR TO 2022 - DUAL ELIGIBLE (MEDICARE REPLACEMENT/AD VANTAGE - HMO) Jenifer Sypek [id number] Jenifer Sypek 08/04/2020 1 [place] [employer] Jenifer Harperpek [id number] Jenifer Sypek 08/05/2020 1 [place] [employer] Jenifer Sypek [id number] Jenifer Sypek 12/12/2022 2 [place] [facility] Jenifer Sypek [id number] Jenifer Sypek 02/09/2020 1 *SELF PAY* Jenifer Harperpek [id number] Jenifer Sypek 07/31/2020 1 [place] [facility] Jenifer Schafer Sypek [id number] Jenifer Sypek 07/31/2020 2 [place] [facility] Jenifer Sypek [id number] Jenifer Sypek 12/12/2022 1 [facility] - DOS PRIOR TO 2022 - DUAL ELIGIBLE (MEDICARE REPLACEMENT/AD VANTAGE - HMO) Jenifer Sypek [id number] Jenifer Harperpek Notes Date Note Type Note Provider Name and Address Organization Details Recorded Time 02/09/2020 text/html This is an 79-year-old female that is new to [facility]. Her daughter had contacted [facility] because the patient has been acting [...] homebound because of COVID 19. KEVIN CRUZ NP [facility] [address], [place], [address], [place] include 234 beds at the [facility] 02/09/2020 15:16:03 07/31/2020 text/html General HPI Template - DHReported by Patient Patient is a 79 year alert female [...] DDD Asiya Brennan NP [address], [place], [address], [place] [facility] 08/02/2020 09:52:11 08/10/2020 text/html [...] DDD. Asiya Brennan NP [address], [place], [address], [place] [facility] 08/10/2020 16:17:20 OBGyn Episode No OBEpisode recorded.
--- OUTSIDE RECORDS SUMMARY | 2025-06-06 14:38 | XMS_ITS | Clinical Summary ---
Author Organization [facility] Address [address] [address] Phone Care Team Providers Care Manager Behavior Name Role Phone Unavailable Primary Care Provider [...] patient's age to complete this topic Insurance [facility] MCR ([id number]) [place] [id number] [facility] ([id number]) [place] [phone]
--- NOTE | 2025-06-06 14:39 | MHC.OFFVIS ---
Vital Signs 06/06/25 14:40 Height 4 ft 11 in BMI Reason not done Patient refused/unable BP 116/64 Blood Pressure Location Lt brachial Position Sitting Pulse 80 Pulse Source Pulse Oximeter Pulse Oximetry (%) 97 Oxygen Delivery Method Room Air Intake Visit Reasons: COPD Laser Print Operator Required: No Commercial Front Load Driver: Commercial Front Load Driver offered & declined Accompanied by: Daughter Allergies carvedilol Allergy (Verified 06/06/25 14:44) Shortness of Breath sertraline (From Zoloft) Allergy (Verified 06/06/25 14:44) Shortness of Breath spironolactone Allergy (Verified 06/06/25 14:44) Shortness of Breath adhesive tape Adverse Reaction (Severe, Verified 06/06/25 14:44) skin tears ertapenem Adverse Reaction (Severe, Verified 06/06/25 14:44) Confusion mirtazapine Adverse Reaction (Severe, Verified 06/06/25 14:44) psychotic episode HPI Comments Details: The patient is an 84 year-old woman with known history of COPD along with chronic bronchitis due apparently has been in usual state health until for the last several months where her respiratory status has dramatically worsen. The patient has had numerous admissions in a short period of time. The patient states that she started developing worsening cough usually congested in nature. She has a hard time expectorating. Suddenly she developed significant respiratory distress with the family notices that she is decompensated very quickly. At that point EMS was called the. Usually the patient is found to be hypoxic and she is brought to the hospital. She has been admitted to normal now about 4 times in a [facility] about 2 times. Her sputum was positive for Pseudomonas aeruginosa and she was treated with ceftazidime. Ultimately she is treated and then subsequently is able to recover partially in that she is sent home. Usually the cycle restarts again. She has been having hard time since she does the hospital recently. They try sending another sputum culture but it was contaminated. In the office she was very congested. We were able to get a sputum sample and also very tenacious greenish in color and also smelling of Pseudomonas consistent with likely pseudomonal lower respiratory infections and pneumonia. The patient did received Xopenex with hypertonic saline with good response. She had been on DuoNeb but I am concerned that is drying up the mucus even more. Therefore will switch over to the Xopenex instead. I did review her CT scan of the chest done at [facility]. She has numerous pulmonary nodules in addition to thickened airways and some bronchiectatic looking airways. Therefore, the patient does have chronic airway disease now worsened by the fact that she is colonized with Pseudomonas. She has had multiple admissions to the hospital and therefore failing IV and oral antibiotics. The only option right now will be to start her inhaled tobramycin. she is already performing chest physical therapy with a flutter valve. 04/27/2023 the patient is here for a pulmonary follow-up visit. Since we last spoke she went back to the hospital. She was diagnosed with pneumonia was again placed on antibiotics. Again a course complicated with C diff colitis. 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 She was treated with p.o. vancomycin again. I explained to the patient and to the daughter that she needs to minimize antibiotic use because it will reasonable result in a very complicated abdominal process. The patient likely has a component of microaspiration likely aspiration pneumonias specially since pneumonias or mainly on the right side. She does have an increased amount of dementia and she is requiring additional care from the family. She is also falling asleep more regularly during the daytime. She is going to start her day program to see if this allows her to be more stimulated and more weight. In the meantime she is off the inhaled tobramycin. In view of her all her complications will go ahead and hold off the tobramycin for 4-6 weeks to see if there is improvement in her GI issues. She will continue with the current respiratory therapy With the Xopenex therapy. And will follow-up in 6 months. If the patient has any worsening symptoms she is to call the office for an earlier assessment. we also spoke briefly about goals of care. Talked about her code status. The patient currently is a full code we did talk about the concerns about her significant comorbidities and being too aggressive with her care. Therefore, I did recommend the patient talk to her daughter further about code status. 09/14/2023 the patient has a telehealth visit today. Overall she has been doing well. The weather spot so therefore she stayed home. She has not required any prednisone or antibiotics since we last spoke which is very reassuring. This is the longest stent of good health she has had. She is also participating in the day program where she is exposed to a lot of people and she has actually been doing very well with that as well. She continues her respiratory therapy with Xopenex. The patient has not required any other respiratory therapy. She continues use oxygen with good effect. She does complaint of some chest congestion and mucus. Explained to her that she does have chronic bronchitis and she will always make mucus. Although she needs to be monitoring closely the collar the consistency in the frequency of the mucus. If those were to worsen she will call nor for us to treat her for potential infection. 12/13/2023 the patient is here for a pulmonary follow-up visit. She was in her usual state health until the last week when she started developing worsening cough chest congestion. For another breath. Hard time expectorating. Moderate severity. Denied any fevers or chills. The mucus was colored. She does have history of Pseudomonas. At this start her on levofloxacin and also prednisone. Today she has already feeling a little better. Although the family is concerned that she has coming to the end of the treatment still congested and coughing although not as bad. The patient still has some rhonchi and wheezing on examination. I am concerned about the use of quinolones because of the possibility of tendonitis and also the risk of C diff colitis. At the same time the patient does have chronic airway disease with significant bronchiectasis. Therefore, I will give another 10 days but a low dose levofloxacin and a lower dose prednisone. He should continue with her CPT therapy. Continue with the nebulized therapy. She has been using the oxygen with good effect. Otherwise the patient is feeling a little bit better. Her last chest x-ray personally by me from 10/30/2023 with some chronic changes decreased lung volumes and some atelectasis at the bases. Further recommendation based on forthcoming data. The patient will follow-up in 3-4 months. 02/06/2024 the patient is here for sick visit. She has had worsening cough chest congestion. Moderate severity. The mucus is very tenacious. Sometimes she has a hard time clearing her secretions. She did respond well to the levofloxacin. The patient has had history of Pseudomonas in the sputum. Likely this is related to Pseudomonas at this time. Although, she does also have a history of C diff colitis. Therefore, the patient understands that using quinolones to treat her underlying respiratory infection can lead to C diff colitis. Will go ahead and pretreat her with Flagyl to minimize risk. The patient ultimately has significant bronchiectasis. She will benefit from inhaled tobramycin to be provided in order to treat the Pseudomonas infection. Therefore, will go ahead and send a sputum culture at this time. she will start the antibiotics continue with her chest physical therapy. She should be using her Acapella valve and also her nebulized therapy. Right now she does not having significant wheezing therefore will hold off on any prednisone. The patient has any worsening symptoms she will call for further evaluation. 03/18/2024 the patient is here for a pulmonary follow-up visit. Overall she is doing better since we last saw her. She did complete the 28 days of the inhaled tobramycin. She does have a hard time with it. Gives her bad taste and she does not like to take it. She is considering not continuing the therapy. She is going to have now 20 days off the medicine which I find helpful for her to take a break. But I explained to the patient did Pseudomonas will return in her respiratory symptoms will return subsequently after that and it will continue to worsen. Therefore, we do not have a lot of alternative options in the inhaled SHY although does have some adverse symptoms it is effective treating the Pseudomonas. In the meantime she is going to continue using respiratory therapy and chest PT to clear mucus. On exam she does have some wheezing. Hold off on any prednisone at this time. If her symptoms worsen she will call. She is also monitoring closely her weight. She has gained weight but although she is eating more. Does not appear to be volume overloaded at this time. She will continue with current dose of diuretics. Will follow-up in 3-4 months. The patient has any worsening symptoms prior to that she will call for an earlier assessment. 06/24/2024 the patient is here for sick visit. She chest congestion. She was evaluated by loss month. She was. The patient is still having significant chest congestion. She started. She does complaint of abdominal pain when taking it. Primarily because she has coughing a lot. Seems that she does expectorate better when she has in the inhaled SHY. On exam she does have some rhonchi wheezing and diminished breath sounds. Will go ahead and stop her SHY for now to her belly pain gets better. 07/18/2024 the patient is here for a pulmonary follow-up visit. Since we last spoke she had worsening symptoms and ended up going to the ER. There she was admitted to the hospital. She had an episode of agitation and respiratory distress and the patient was intubated for short time and transferred to the ICU. She was quickly liberated from the ventilator. And she was given IV antibiotics. The patient was diuresed and discharged. Although she continues have a hard time with her breathing. She has significant chest congestion. She has also become significantly weak after the prolonged hospitalizations and all the steroids and paralytics. She can not tolerate the inhaled tobramycin well. Irritate her throat. She also had a modified barium swallow demonstrating some laryngeal penetration but no overt aspiration. She did have a CT scan of the chest which I personally reviewed demonstrating some airspace disease in pneumonitis in the right hemithorax suggesting indeed of micro aspirations and aspirations resulting in pneumonitis. She does have a dysphagia diet which she should continue. For now though will start her on doxycycline to see if this provides some relief specially if there is any evidence of stenotrophomonas. In addition to that will go ahead and place her on small dose of prednisone 10 mg to see if this provides her relief and stability of disease. In addition to that the patient will continue the inhaled tobramycin but she will actually mixed in with the albuterol to see if she can tolerated better in that fashion. Will follow-up in 1-2 months. If she has any issues prior to that she will call for an earlier assessment. 10/01/2024 the patient is here for a pulmonary follow-up visit. The patient has had a very eventful month. Initially was hospitalized here for IV antibiotics. Unfortunately she was sent home in her PICC line started leaking she called to see about getting affixed and was recommended that she go to [facility] because we did not have Radiology available. When she went to [facility] she was found to be in AFib and she was admitted to the hospital. While in the hospital she aspirated and ended up getting intubated briefly. She was able to be liberated from the ventilator placed on BiPAP. The patient is clinically now better. She went home and she has been very tired and weak. She initially she could not walk but now she is taking about 10-15 steps. She is using her respiratory medications with good effect. She is actually feeling a lot better. Will continue with the current respiratory regimen at this time. I did review her last imaging study at [facility] demonstrating bilateral pleural effusions. She continues on the Lasix and her volume status has been better. 12/17/2024 the patient is here for pulmonary follow-up visit. Overall she is doing okay. She started to get a little more congested recently the last few days. Denies any significant chest tightness or wheezing or fevers. The patient has been using her inhaled tobramycin twice a day along with the albuterol. She does complaint of irritation of her mouth making it difficult for her to tolerate. Will go ahead and start her on magic mouthwash that she can use prior to the nebulized treatment to minimize the mucosal irritation. In addition to that the patient will have some prednisone and doxycycline home in case her symptoms were to worsen. But I do not believe right now she needs any additional therapies. Also did provide her with a sputum culture cup that she can provide us if her chest congestion worsens just prior to starting the antibiotics specially with a history of having Pseudomonas. Will follow-up in 3-4 months. She has any issues prior to this she will call for an earlier assessment. 01/31/2025 the patient is here for a pulmonary sick visit. She has been more congested for the last few days. The cough is very thick tenacious mucus in his very rhonchorous in her lung exam. She denies any fevers or chills denies any difficulty breathing is just mainly that chest congestion. She has been using the leave albuterol along with the ipratropium. Will go ahead and hold off in the ipratropium to try to minimize in the dryness in the thickness of the sputum. The patient was able to use levo albuterol with hypertonic saline here and that seemed to work very well in expectorating. Therefore will continue the hypertonic saline at home. The patient will also need some antibiotics and prednisone at this time to help her with the bout of bronchitis. She will continue with the current respiratory therapy. She will also continue with the inhaled SHY 28 days on 28 days off. We were able to get a sputum culture and will send that to the micro lab to further analysis. The patient is scheduled to come back in a couple months. If she has any issues prior to this she will call for early evaluation. 03/31/2025 the patient is here for pulmonary follow-up visit. She continues to have ongoing symptoms. The Levaquin was already helpful for her her chest congestion significantly improved. She did have a sputum culture sent during that visit and was positive for Pseudomonas and it was indeed resistant to gentamicin tobramycin. Therefore that is why she is not responding well to the inhaled tobramycin. She stopped using it. Continues use her respiratory medications as prescribed. She is tolerating them. She does have some increased wheezing. Will start her on a small dose of prednisone that she can continue taking once a day 10 mg and then she can cut it down to 10 mg every other day and hopefully 5 mg to every other day. As far as antibiotics have her start back on macrolide suppression therapy to decrease mucus production inflammation. However, the family understands that this will not treat the Pseudomonas. If it does buildup again will have to go back on Levaquin and then deal with the potential risk factors of that. The patient follow-up in a couple months. If she has any issues prior to this she can always call for further recommendations. 06/06/2025 the patient is here for pulmonary follow-up visit. She did take another course of Levaquin. She is now off it. She will go back on the azithromycin 3 times a week. She continues her neb treatments. The patient also has been tolerating the low-dose prednisone. She will continue that for now. She still has chest congestion in the morning. Explained to her that the clearance of the mucus in the bronchopulmonary hygiene is khanna specially in the morning after she wakes up has been sleeping all night. She is going to continue to work on that. She understands that unfortunately the Pseudomonas now more resistance so the inhaled SHY is not going to work. Will have to minimize the use of Levaquin specially with the adverse effects. If her respiratory symptoms worsen she can always call and we can send her an additional prescription. Otherwise the patient is doing well she is tolerating her respiratory therapy. She will follow-up in a couple months if she has any issues prior to this she can always call for further recommendations. [facility] Medical History Aspiration pneumonia Diabetes Acute respiratory failure with hypoxia Congestive heart failure Mild bibasilar atelectasis Clostridioides difficile infection Pneumonia Atrial flutter Pyuria Atelectasis of right lung Encephalopathy chronic History of infection with vancomycin resistant Enterococcus (VRE) Heart failure Dyspnea Paroxysmal A-fib COPD (chronic obstructive pulmonary disease) A-fib Acute encephalopathy Anemia Pseudomonas respiratory infection CAD (coronary artery disease) Chronic dyspnea Acute hypokalemia Atrial fibrillation with RVR Anemia GI bleed Pulmonary nodules COPD (chronic obstructive pulmonary disease) Bronchiectasis Pseudomonal pneumonia Surgical History H/O umbilical hernia repair (09/18/22) History of quadruple bypass History of hip replacement History of knee replacement History of cholecystectomy Family History Other No family history of cancer Social History Household Members: Family Housing: House Are you a primary healthcare representative to a significant other at home: No Do you presently have visiting nurse or other home services: Yes (vna) Alcohol intake: never Patient Tobacco Use Status: Former Tobacco user Tobacco use type: Cigarette Advance Directives Date on File: 08/24/22 service: No Current occupational status: retired Review of Systems Const Denies chills, Denies fatigue, Denies fever(s), Denies weight gain and Denies weight loss Eyes Reports change in vision ENT Denies dizziness and Reports mouth pain Card Denies chest pain, Denies leg edema, Denies lightheadedness, Denies palpitations, Reports dyspnea on exertion, Denies orthopnea and Denies other Resp Denies change in phlegm color, Reports chest congestion, Reports cough, Denies excessive phlegm production, Reports dyspnea on exertion and Reports wheezing GI Denies hematochezia and Denies change in stool character Musc Denies abnormal gait, Denies muscle weakness, Denies numbness, Denies radiating pain into limb and Denies tingling Skin/Breast Reports rash and Reports unusual bruising Neuro Denies abnormal gait, Denies dizziness, Denies numbness and Denies tingling Psych Reports panic attacks Endo Denies fatigue and Denies palpitations Samir/Lymph Reports easy bruising and Denies lymphadenopathy Aller/Immun Reports wheezing Physical Exam Vital Signs: Last Vital Signs Pulse 80 06/06/25 14:40 BP 116/64 06/06/25 14:40 Pulse Ox 97 06/06/25 14:40 Oxygen Delivery Method Room Air 06/06/25 14:40 Assessment & Plan Assessment & Plan (1) COPD (chronic obstructive pulmonary disease): Code(s): J44.9 - Chronic obstructive pulmonary disease, unspecified Category: Medical Qualifiers: COPD type: chronic bronchitis Chronic bronchitis type: mucopurulent Qualified Code(s): J41.1 - Mucopurulent chronic bronchitis (2) Pseudomonal pneumonia: Code(s): J15.1 - Pneumonia due to Pseudomonas Category: Medical Qualifiers: Laterality: unspecified laterality Lung location: unspecified part of lung Qualified Code(s): J15.1 - Pneumonia due to Pseudomonas (3) Pulmonary nodules: Code(s): R91.8 - Other nonspecific abnormal finding of lung field Category: Medical (4) Dyspnea: Code(s): R06.00 - Dyspnea, unspecified Category: Medical Qualifiers: Dyspnea type: shortness of breath Qualified Code(s): R06.02 - Shortness of breath (5) Bronchiectasis: Code(s): J47.9 - Bronchiectasis, uncomplicated Category: Medical Qualifiers: Bronchiectasis type: with acute lower respiratory infection Qualified Code(s): J47.0 - Bronchiectasis with acute lower respiratory infection (6) Congestive heart failure: Code(s): I50.9 - Heart failure, unspecified Category: Medical Qualifiers: Heart failure chronicity: chronic Heart failure type: unspecified Qualified Code(s): I50.9 - Heart failure, unspecified Plan stopped inhaled Shy 28 days on, 28 days -pseudomonas now resistent low dose prednisone Azithromycin MWF continue Anoro Xopenex BID hypertonic saline 3% for CPT Continue acapella valve Oxygen 2L with activity and with sleep F/U 2-3 months Medications: New prednisone 10 mg (2 x 5 mg) PO DAILY 180 tabs 3RF 90 days Coding Level of Care Code Est Pt Level 4 (70891) Diagnoses Mucopurulent chronic bronchitis J41.1 COPD type: chronic bronchitis Chronic bronchitis type: mucopurulent Pneumonia due to Pseudomonas species, unspecified laterality, unspecified part of lung J15.1 Laterality: unspecified laterality Lung location: unspecified part of lung Pulmonary nodules R91.8 Shortness of breath R06.02 Dyspnea type: shortness of breath Bronchiectasis with acute lower respiratory infection J47.0 Bronchiectasis type: with acute lower respiratory infection Chronic congestive heart failure, unspecified heart failure type I50.9 Heart failure chronicity: chronic Heart failure type: unspecified Time Spent (min) 18
[2025-06-06 14:40] VITALS: BP 116/64; PULSE 80; O2SAT 97
== END 2025-06-06 15:06 | disposition home or self-care (01) ==
LOC: HO.HPS 14:36
PROVIDERS: PCP Internal Medicine; Visit Provider Hospitalist
DX: J41.1 Mucopurulent chronic bronchitis (principal); J15.1 Pneumonia due to Pseudomonas; R91.8 Other nonspecific abnormal finding of lung field; R06.02 Shortness of breath; J47.0 Bronchiectasis with acute lower respiratory infection; I50.9 Heart failure, unspecified
CPT/HCPCS: 99214

== ENCOUNTER → 2025-06-06 14:36 | Outpatient (BNVA) | payer OTHER, SELFPAY | PROVIDERS: PCP Internal Medicine; Visit Provider Hospitalist | DX: J41.1 Mucopurulent chronic bronchitis (principal); J15.1 Pneumonia due to Pseudomonas; R19.8 Other specified symptoms and signs involving the digestive system and abdomen; R06.02 Shortness of breath; J47.0 Bronchiectasis with acute lower respiratory infection; I50.9 Heart failure, unspecified; Z79.899 Other long term (current) drug therapy; Z87.891 Personal history of nicotine dependence | CPT/HCPCS: 99212 ==